=== PATIENT | female | born 1950 | race Caucasian/White ===

== ENCOUNTER → 2018-01-17 10:54 | Outpatient (CLI) | payer MEDICARE, BC, SELFPAY ==
--- NOTE | 2018-01-17 11:01 | MRI_ITS ---
STUDY: MRA NECK WITHOUT CONTRAST REASON FOR EXAM: Female, 67 years old. ICA STENOSIS, TIA, DIZZY; 2 RECENT FALLS- NO HEAD INJURY; F/U TO PREV MRA. TECHNIQUE: Source images were obtained, MIPs were performed. The study was performed unenhanced. COMPARISON: January 17, 2018 FINDINGS: RIGHT CAROTID ARTERIES: Normal right common carotid artery (CCA). Normal right common carotid bulb. There is moderate atherosclerotic plaque formation of the origin of the right internal carotid artery with an estimated stenosis of 50-69% stenosis. Finding was present on the prior examination. Comparison is difficult secondary to technical differences. Normal visualized cervical portion of the right internal carotid artery. Normal origin of the right external carotid artery (ECA). LEFT CAROTID ARTERIES: Normal left common carotid artery (CCA). Normal left common carotid bulb. There is mild atherosclerotic plaque formation of the origin of the left internal carotid artery with less than 50% cross sectional diameter stenosis. Normal visualized cervical portion of the left internal carotid artery. Normal origin of the left external carotid artery (ECA). VERTEBRAL ARTERIES: Normal antegrade flow within the bilateral vertebral artery without a hemodynamically significant stenosis. MRI/MRA Neck without Contrast IMPRESSION: 50-69% stenosis of the right ICA. 50% stenosis of the left ICA. Further evaluation with sonography and/or CTA can be obtained. Electronically Signed: Kizzy Ramon MD at 11:44 EDT Tel , Service support ,
[2018-01-17 11:40] LABS: CREATININE FINGERSTICK 1.2 mg/dL (0.55-1.02)
== END ==
PROVIDERS: Family Provider Family Medicine; PCP Family Medicine; Visit Provider Nurse Practitioner Acute Care
DX: I65.29 Occlusion and stenosis of unspecified carotid artery (principal); Z86.73 Personal history of transient ischemic attack (TIA), and cerebral infarction without residual deficits
CPT/HCPCS: 70547

== ENCOUNTER → 2018-01-18 20:00 | Outpatient (CLI) | payer MEDICARE, BC, SELFPAY | PROVIDERS: Family Provider Family Medicine; PCP Family Medicine; Visit Provider Nurse Practitioner Acute Care | DX: G47.33 Obstructive sleep apnea (adult) (pediatric) (principal); Z86.73 Personal history of transient ischemic attack (TIA), and cerebral infarction without residual deficits | CPT/HCPCS: 95810 ==

== ENCOUNTER → 2018-03-29 09:45 | Outpatient (CLI) | payer MEDICARE, BC, SELFPAY ==
[2018-03-29 10:45] LABS: Amphetamine Urine VISTA NEGATIVE (<1000 ng/mL); Barbiturate Urine VISTA NEGATIVE (< 200 ng/mL); Benzodiazepine Urine VISTA NEGATIVE (< 200 ng/mL); Cocaine Urine VISTA NEGATIVE (< 300 ng/mL); Ecstacy Urine VISTA NEGATIVE (< 500 ng/mL); Methadone Urine VISTA NEGATIVE (< 300 ng/mL); PCP Urine VISTA NEGATIVE (< 25 ng/mL); THC Urine VISTA NEGATIVE (< 50 ng/mL); Vista UDS pH Range 6
== END ==
PROVIDERS: Family Provider Family Medicine; PCP Family Medicine; Visit Provider Anesthesiology Pain Medicine
DX: F11.20 Opioid dependence, uncomplicated (principal)
CPT/HCPCS: 80307

== ENCOUNTER → 2018-03-31 20:00 | Outpatient (CLI) | payer MEDICARE, BC, SELFPAY | PROVIDERS: Family Provider Family Medicine; PCP Family Medicine; Visit Provider Nurse Practitioner Acute Care | DX: G47.33 Obstructive sleep apnea (adult) (pediatric) (principal) | CPT/HCPCS: 95811 ==

== ENCOUNTER → 2019-05-18 13:35 | Outpatient (CLI) | payer MEDICARE, BC, SELFPAY ==
--- NOTE | 2019-05-18 13:38 | CT_ITS ---
HISTORY: Carotid stenosis on doppler, dizzy and lightheaded, Hx-DB,TIA TECHNIQUE: CT angiogram of the neck was performed with IV contrast. NASCET criteria using the distal internal carotid arteries were used for evaluation of stenoses. 3D reconstructions were reviewed. A radiation dose optimization technique was used for this scan. IV Contrast dosage and agent: 100 ml [id number] Number of images including paperwork: [id number] COMPARISON: MRA neck 01/17/2018 FINDINGS: AORTIC ARCH AND BRANCHES: No dissection. Vascular tortuosity. Two-vessel aortic arch branching pattern. RIGHT CAROTID ARTERIES: Stenosis of the right proximal internal carotid artery measuring 50-55%. LEFT CAROTID ARTERIES: Calcified plaque o with approximate 30% stenosis of the proximal left ICA. RIGHT VERTEBRAL ARTERY: No occlusion, significant stenosis or dissection. Mild calcified plaque at the level of the skull base. LEFT VERTEBRAL ARTERY: Mild calcified plaque at the level of the skull base. Mild diffuse narrowing of the distal 2 cm. VISUALIZED INTRACRANIAL CIRCULATION: Patent without significant stenosis, aneurysm or branch occlusion detected. Atherosclerotic calcification of the cavernous ICA bilaterally. NECK SOFT TISSUES: Unremarkable. LUNG APICES: Unremarkable. BONES: Unremarkable. CT/CTA Neck W/WO Contrast IMPRESSION: 1. 50-55% stenosis of the right proximal internal carotid artery. 2. 30% stenosis of the left proximal ICA. 3. 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 Individualized dose optimization techniques were used for this CT. at 0556 Reported and signed by: Luz Elena Centeno MD Electronically Signed: Luz Elena Centeno MD at 5:56 EDT Tel , Service support ,
[2019-05-18] MEDS: 0.9% Saline Lock 10 ML Syringe IV (14:00)
[2019-05-18 14:06] LABS: CREATININE FINGERSTICK 1.3 mg/dL (0.55-1.02)
== END ==
PROVIDERS: Family Provider Family Medicine; PCP Family Medicine; Referring Provider Nurse Practitioner Family; Visit Provider Nurse Practitioner Family
DX: Z01.812 Encounter for preprocedural laboratory examination (principal); I65.29 Occlusion and stenosis of unspecified carotid artery
CPT/HCPCS: 70498; Q9967; A4216

== ENCOUNTER → 2019-05-25 08:47 | Outpatient (CLI) | payer MEDICARE, BC, SELFPAY ==
--- NOTE | 2019-05-25 08:55 | CDU_ITS ---
Reason For Study: carotid stenosis Rt. Velocities/BP Lt. Velocities/BP Prox CCA 57.8/16.0 cm/sec. Prox CCA 55.1/16.0 cm/sec. Mid CCA 60.4/18.6 cm/sec. Mid CCA 63.0/18.6 cm/sec. Dist CCA 52.6/14.7 cm/sec. Dist CCA 59.1/17.3 cm/sec. Prox ICA 59.1/21.3 cm/sec. Prox ICA 51.2/18.6 cm/sec. Mid ICA 87.8/26.5 cm/sec. Mid ICA 66.9/21.1 cm/sec. Dist ICA 53.9/20.0 cm/sec. Dist ICA 79.9/27.8 cm/sec. Rt. ICA/CCA = 1.5. Lt. ICA/CCA = 1.3. Prox ECA 52.6/6.9 cm/sec. Prox ECA 73.4/12.1 cm/sec. Rt. Vert. 42.1/14.7 cm/sec. Lt. Vert. 33.3/12.4 cm/sec. Right Extracranial There is intimal thickening but no significant atherosclerotic plaque noted in the right common carotid artery. There is heterogeneous, irregular atherosclerotic plaque noted in the right internal carotid artery. There is heterogeneous, irregular atherosclerotic plaque noted in the right external carotid artery. Antegrade flow is noted in the right vertebral artery. Left Extracranial There is intimal thickening but no significant atherosclerotic plaque noted in the left common carotid artery. There is heterogeneous, irregular atherosclerotic plaque noted in the left internal carotid artery. There is heterogeneous, irregular atherosclerotic plaque noted in the left external carotid artery. Antegrade flow is noted in the left vertebral artery. Procedure Carotid Duplex 36812. The exam was diagnostic. Exam performed in department. Interpretation Summary Irregular calcific plague at the proximal right internal carotid <50% stenosis right internal carotid <50% stenosis right external carotid Irregular calcific plague distal left common carotid and proximal internal and external carotid arteries <50% stenosis left internal carotid <50% stenosis left external carotid Patent and antegrade vertebrals bilaterally Ordering Physician: Pascual Malik Performed By: Darvin Shaw RVT
== END ==
PROVIDERS: Family Provider Family Medicine; PCP Family Medicine; Referring Provider Surgery; Visit Provider Surgery
DX: I65.23 Occlusion and stenosis of bilateral carotid arteries (principal)
CPT/HCPCS: 93880

== ENCOUNTER → 2020-11-13 09:03 | Outpatient (CLI) | payer MEDICARE, BC, SELFPAY ==
[2019-05-31 09:15] VITALS: BMI 30.3
[2020-11-13 09:58] LABS: Amphetamine Urine VISTA NEGATIVE (<1000 ng/mL); Barbiturate Urine VISTA NEGATIVE (< 200 ng/mL); Benzodiazepine Urine VISTA NEGATIVE (< 200 ng/mL); Cocaine Urine VISTA NEGATIVE (< 300 ng/mL); Ecstacy Urine VISTA POSITIVE (< 500 ng/mL); Methadone Urine VISTA NEGATIVE (< 300 ng/mL); PCP Urine VISTA NEGATIVE (< 25 ng/mL); THC Urine VISTA NEGATIVE (< 50 ng/mL); Vista UDS pH Range 6
== END ==
PROVIDERS: PCP Family Medicine; Referring Provider Anesthesiology Pain Medicine; Visit Provider Anesthesiology Pain Medicine
DX: F11.20 Opioid dependence, uncomplicated (principal)
CPT/HCPCS: 80307

== ENCOUNTER → 2022-02-10 | Outpatient (CLI) | payer MEDICARE, BC, SELFPAY | END | disposition home or self-care (01) | LOC: LAB 10:19 | PROVIDERS: PCP Family Medicine; Visit Provider Podiatrist | DX: L97.912 Non-pressure chronic ulcer of unspecified part of right lower leg with fat layer exposed (principal) | CPT/HCPCS: 87070; 87077; 87186; 87205 ==

== ENCOUNTER 2022-06-18 18:05 | Emergency (ER) | payer MEDICARE, BC, SELFPAY ==
[2022-06-18 18:07] VITALS: BP 136/80; PULSE 121; RESP 18; TEMP 36.2; O2SAT 100; BMI 30.2
[2022-06-18 19:29] LABS: Mucous, Urine 0 SEEN /hpf (<or=2+)
[2022-06-18 19:30] LABS: Color, Urine Straw (Yellow); Glucose, Dipstick 1000 mg/dl (Normal); Ketone-Dipstick 15 mg/dl (Negative); Leukocyte Esterase-Dipstick 25 /ul (Negative); Nitrite-Dipstick Negative (Negative); Occult Blood-Urine 150 /ul (Negative); Protein-Dipstick 30 mg/dl (Negative); Urine Bilirubin Dipstick Negative (Negative); Urine Clarity Clear (Clear); Urine Urobilinogen Normal (Normal); Urine pH 6.5 (5.0 - 8.0)
[2022-06-18 19:50] LABS: White Blood Cells 25-50 SEEN /hpf (0-5)
[2022-06-18 19:51] LABS: Bacteria RARE /hpf (None Seen); Red Blood Cells-Urine 5-10 SEEN /hpf (0-5); Squamous Epithelial Cells - UA 0-5 SEEN /hpf (5-10)
[2022-06-18 20:06] VITALS: BP 135/62; PULSE 100; RESP 15; O2SAT 98
--- NOTE | 2022-06-18 21:24 | EDS_ITS ---
HPI HPI - Female History of Present Illness Chief Complaint: Complaint Narrative Narrative: 72-year-old female presenting with generalized weakness. She states she also has bladder incontinence. She states she cannot walk across the room with urinating and dribbling. She does not have any constipation or diarrhea. No fever or chills. She states she was recently hospitalized at for UTI, dehydration, hyponatremia, hypokalemia. She states she was there overnight and given IV fluids that her electrolytes were replaced. She states she could not be placed because of insurance issues and to senior living. She went home. She continues to feel weak and have urinary incontinence. She denies dysuria or hematuria. She states she has not had the symptoms since she was over 62. She reports that this has been going on for weeks. She saw her primary care physician who did not believe she had a UTI prior to going to . Patient states that when she went to she was placed on Keflex for home. He does not know if there is a urine culture. She states that her primary care doctor put her on Cipro and she has been taking this. [facility] Medical History Carotid stenosis, bilateral Depression Diabetes Pancreatitis Sleep apnea TIA (transient ischemic attack) Home Medications citalopram 40 mg tablet 40 mg PO DAILY 05/31/19 [History Last Taken Unknown] ezetimibe 10 mg tablet (Zetia) 10 mg PO DAILY 05/31/19 [History Last Taken Unknown] insulin glargine 100 unit/mL subcutaneous solution (Lantus U-100 Insulin) 25 unit subcut QHS 05/31/19 [History Last Taken Unknown] insulin lispro 100 unit/mL subcutaneous pen (Humalog KwikPen (U-100) Insulin) 7 unit subcut QA 05/31/19 [History Last Taken Unknown] metformin 500 mg tablet 500 mg PO BID 05/31/19 [History Last Taken Unknown] montelukast 10 mg tablet (Singulair) 10 mg PO QPM 05/31/19 [History Last Taken Unknown] naproxen 250 mg tablet 250 mg PO BID 05/31/19 [History Last Taken Unknown] oxycodone-acetaminophen 5 mg-325 mg tablet (Percocet) 1 tab PO .prn 05/31/19 [History Last Taken Unknown] trimethoprim 100 mg tablet 100 mg PO QHS 05/31/19 [History Last Taken Unknown] Allergy/AdvReac Type Severity Reaction Status Date / Time morphine Allergy Mild Rash Verified 06/18/22 18:06 Penicillins Allergy Mild Rash Verified 06/18/22 18:06 Sulfa (Sulfonamide Allergy Mild Rash Verified 06/18/22 18:06 Antibiotics) Family History Mother Hypertension Surgical History H/O section H/O: hysterectomy Hx laparoscopic cholecystectomy Social History Smoking Status: Never smoker alcohol intake: never ROS ROS ED Constitutional Constitutional ED: Denies chills or fever(s) Eyes Eyes: Denies change in vision or diplopia ENT ENT ED: Denies rhinorrhea or sore throat Cardiovascular Cardiovascular: Denies chest pain or palpitations Respiratory/Chest Respiratory/Chest: Denies cough or dyspnea Gastrointestinal Gastrointestinal: Denies abdominal pain Genitourinary Genitourinary ED: Reports other Details: Urinary incontinence ; Denies dysuria or hematuria Musculoskeletal Musculoskeletal: Denies arthralgias or myalgias Integumentary Denies abscess or Abrasions Neurologic Neurologic: Denies headache(s) or paresthesias Psychiatric Psychiatric: Denies anxiety or depression EXAM Physical Exam Const Vital Signs: 06/18/22 18:07 06/18/22 20:06 Temperature 97.2 F L Temperature Source Temporal Pulse Rate 121 H 100 Respiratory Rate 18 15 Blood Pressure 136/80 H 135/62 H Blood Pressure Mean 98 86 Pulse Ox 100 98 Oxygen Delivery Method Room Air Room Air Positive well nourished General Appearance ED: NAD; Negative for pallor HEENT Reports moist mucous membranes Eyes PERRL and EOMs intact bilaterally General Eye ED: Negative for pale conjunctiva or scleral icterus Chest Wall inspection of chest normal Resp normal respiratory effort and clear to auscultation bilaterally Cardio regular rate and regular rhythm GI normal to inspection, nondistended, normoactive bowel sounds Back/Spine no CVA tenderness Neuro oriented x3 and CN's II-XII intact bilaterally Sensorium / Orientation: alert Motor Exam: strength 5/5 throughout Psych mental status grossly normal Skin no rashes or lesions noted and no wounds General Skin Exam: Negative for jaundice or pallor MDM MDM MDM Narrative Medical decision making narrative: I obtained a urinalysis which shows 150 occult blood, 1000 glucose, urine RBCs 5-10, leukocyte esterase 25, urine WBCs 25-50, 0-5 squamous epithelial cells and rare bacteria. Negative for nitrites. I reviewed her recent lab work from hospital her A1c was 9.6. Her her initial CBC showed a white blood cell count of 22.0, hemoglobin 12.1, hematocrit 37.0, platelets 223. After hydration and antibiotics her repeat CBC the next morning showed a white blood cell count of 18.6, hemoglobin 10.9, hematocrit 33.8, platelets 172. Her initial CMP showed a sodium of 118, potassium 4.1, chloride 90, CO2 20.8, glucose 524, creatinine was 2.01 LFTs were unremarkable. This was repeated the next day after treatment with IV fluids and antibiotics. Patient sodium then was 136, testing 4.4, chloride 104, CO2 16.6, glucose 180, BUN 24, creatinine 1.47. No anion gap. Patient states he was discharged on Lantus 35 units subcu nightly and 5 units of Humalog between meals. She states she used to take 10 to 12 units. She felt this would not be enough insulin. She states she is checking her blood sugars at home and they are in the 3 25-3 50 range. She also had a CT scan done last month at for abdominal bloating and cramping and this was performed with IV contrast and was negative. Patient's blood work today shows a leukocytosis of 18.8 which is similar to what she had previously. Hemoglobin hematocrit are stable. Creatinine is 1.56 which is similar to her previous creatinine. Glucose is elevated at 662 without anion gap. Patient was given a liter of IV fluids and 20 units of insulin. Patient is already on Cipro for UTI symptoms but she is expressing to me she only has urinary incontinence. I looked up her urine culture from and she was sensitive to Cipro which she is on. I recommended a urology consult and I will refer her to Dr. Booth since she is having recurrent UTI. I had a talk with the patient regarding admission. She does not want to be admitted. She does not want to be placed in a senior living facility or rehab facility. I did also have a long discussion with her regarding her elevated A1c and the need for controlled blood sugars. I recommend that she make an appointment with her primary care provider to get her medications adjusted. She is to continue taking her metformin Lantus, Humalog as prescribed as well as modifying her diet to control her sugars. Impression: 1. Urinary incontinence 2. Leukocytosis 3. Hyperglycemia 4. Elevated Lab Data Attestation: I reviewed the patient's lab results. Labs: Laboratory Results - last 24 hr 06/18/22 06/18/22 06/18/22 19:08 21:50 21:50 WBC 18.8 H RBC 4.31 Hgb 12.1 Hct 37.5 MCV 87.0 MCH 28.1 MCHC 32.3 RDW Std Deviation 42.7 RDW Coeff of Yonathan 13.5 Plt Count 462 H MPV 9.4 Immature Gran % (Auto) 2.300 H Neut % (Auto) 82.7 H Lymph % (Auto) 7.8 L [place] % (Auto) 6.5 Eos % (Auto) 0.3 Baso % (Auto) 0.4 Absolute Neuts (auto) 15.6 H Absolute Lymphs (auto) 1.46 Nucleated RBC % 0 Sodium 131 L Potassium 4.0 Chloride 100 Carbon Dioxide 19.0 L Anion Gap 12 BUN 28 H Creatinine 1.56 H Estim Creat Clear Calc 31.41 Est GFR (MDRD) Af Amer 42 L Est GFR (MDRD) Non-Af 35 L BUN/Creatinine Ratio 17.9 Glucose 662 H* Calcium 9.1 Urine Color Straw Urine Clarity Clear Urine pH 6.5 Ur Specific [place] 1.010 Urine Protein 30 H Urine Glucose (UA) 1000 H Urine Ketones 15 H Urine Occult Blood 150 H Urine Nitrite Negative Urine Bilirubin Negative Urine Urobilinogen Normal Ur Leukocyte Esterase 25 H Urine RBC 5-10 SEEN Urine WBC 25-50 SEEN Ur Squamous Epith Cells 0-5 SEEN Urine Bacteria RARE Urine Mucus 0 SEEN Discharge Plan Triage Chief Complaint: Complaint Other Complaint: Weakness ED Provider: Devyn Meyers Dx/Rx/DC Orders Instructions: ED Diabetic Hyperglycemia, ED Cystitis Female Adult Prescriptions: No Action metformin 500 mg tablet 500 mg PO BID insulin lispro [Humalog KwikPen Insulin] 100 unit/mL insulin pen 7 unit SC QAC Lantus U-100 Insulin 100 unit/mL solution 25 unit SC QHS ezetimibe [Zetia] 10 mg tablet 10 mg PO DAILY citalopram 40 mg tablet 40 mg PO DAILY naproxen 250 mg tablet 250 mg PO BID montelukast [Singulair] 10 mg tablet 10 mg PO QPM trimethoprim 100 mg tablet 100 mg PO QHS oxycodone-acetaminophen [Percocet] 5-325 mg tablet 1 tab PO .prn Primary Care Provider: Danya Lanier Referrals: Carito Booth MD [Med Staff - Active Staff] - As soon as possible Danya Lanier MD [Primary Care Provider] - Disposition Disposition: Home, Self Care
[2022-06-18] MEDS: 0.9% Normal Saline 1,000 ML 999 ML IV (21:53)
[2022-06-18 22:00] LABS: Absolute Lymphocyte Count 1.46 X10^3/uL (0.83-4.51); Absolute Neutrophil Count 15.6 X10^3/uL (2.0-7.7); Basophil# 0.07 X10^3/uL; Basophil% 0.4 % (0-1); Eosinophil# 0.06 X10^3/uL; Eosinophils% 0.3 % (0-5); Hematocrit 37.5 % (37-47); Hemoglobin 12.1 g/dL (12.0-15.0); Lymphocyte # 1.46 X10^3/ul (0.83-4.51); Lymphocyte % 7.8 % (19-41); Mean Corp Hgb Conc 32.3 g/dL (32-36); Mean Corpuscular Hgb 28.1 pg (27.0-32.0); Mean Platelet Vol. 9.4 fl (6.2-12.0); Monocyte# 1.23 X10^3/uL; Monocyte% 6.5 % (0-10); NRBC Flagged by Analyzer 0 % (0-5); Neutrophil # 15.55 X10^3/uL (2.7-7.7); Neutrophil % 82.7 % (47-70); Platelet Count 462 K/mm3 (150-450); RBC Distribution Width CV 13.5 % (11.6-14.6); RBC Distribution Width SD 42.7 fl (35.1-43.9); Red Blood Count 4.31 M/mm3 (4.2-5.4); White Blood Count 18.8 K/mm3 (4.4-11.0)
[2022-06-18 22:21] LABS: Anion Gap 12 (5-15); BUN 28 mg/dL (7-18); BUN/Creat Ratio 17.9 RATIO (10-20); Calcium,Total 9.1 mg/dL (8.5-10.1); Chloride 100 mmol/L (98-107); Creatinine, Serum 1.56 mg/dL (0.55-1.02); EST Glomerular Filtration Rate 35 mL/min (>60); Est Glom Filt Rate - Afr Amer 42 mL/min (>60); Estimated Creatinine Clearance 31.41 ml/min; Glucose 662 mg/dL (74-106); Sodium Level 131 mmol/L (136-145)
--- NOTE | 2022-06-18 23:20 | ED.RN ---
notified that patient would like to take her own 35 units lantus, 20 units humalog and be dc'd home.
--- NOTE | 2022-06-18 23:29 | ED.RN ---
pt reports has zeeshan to check insulin. snack given at dc.
== END 2022-06-18 23:30 | disposition home or self-care (01) ==
PROVIDERS: Emergency Provider Student in an Organized Health Care Education/Training Program; PCP Student in an Organized Health Care Education/Training Program; Visit Provider Student in an Organized Health Care Education/Training Program
DX: R32 Unspecified urinary incontinence (principal); E11.65 Type 2 diabetes mellitus with hyperglycemia; Z79.4 Long term (current) use of insulin; R53.1 Weakness; D72.829 Elevated white blood cell count, unspecified; R39.89 Other symptoms and signs involving the genitourinary system; Z86.73 Personal history of transient ischemic attack (TIA), and cerebral infarction without residual deficits
CPT/HCPCS: 80048; 81001; 85025; 99283; J7030; A4216

== ENCOUNTER → 2022-07-02 | Outpatient (CLI) | payer MEDICARE, BC, SELFPAY ==
--- NOTE | 2022-07-02 12:39 | US_ITS ---
STUDY: RENAL ULTRASOUND - COMPLETE REASON FOR EXAM: Female, 72 years old. UTI TECHNIQUE: Ultrasound evaluation of the kidneys was performed with real-time and static dean-scale imaging. COMPARISON: None. FINDINGS: RIGHT KIDNEY: Normal location of the right kidney, which is normal in size. The right kidney measures 10.5 cm x 5.7 cm x 5.4 cm. There is a normal cortex of the right kidney. The renal cortex measures 1.4 cm. There is no right renal mass or cyst. There are no right renal calculi. There is no right hydronephrosis. DISTAL RIGHT URETER: There is non-visualization of the distal right ureter. There is no demonstrated right ureterovesical junction calculus. There is no demonstrated right ureteral jet. LEFT KIDNEY: Normal location of the left kidney, which is normal in size. The left kidney measures 10.3 cm x 4.2 cm x 5.5 cm. There is a normal cortex of the left kidney. The renal cortex measures 1.7 cm. There is no left renal mass or cyst. There are no left renal calculi. There is no left hydronephrosis. DISTAL LEFT URETER: There is non-visualization of the distal left ureter. There is no demonstrated left ureterovesical junction calculus. There is no demonstrated left ureteral jet. BLADDER: The distended urinary bladder has a volume of 160 ml. There is a normal wall thickness of the distended urinary bladder. There is no demonstrated mass within the urinary bladder. There are no demonstrated bladder calculi. US/Kidney and Bladder IMPRESSION: Normal ultrasound of the kidneys and urinary bladder. Electronically Signed: Theo Perez MD at 14:34 EDT ,
== END | disposition home or self-care (01) ==
LOC: US 12:37
PROVIDERS: PCP Student in an Organized Health Care Education/Training Program; Referring Provider Urology; Visit Provider Urology
DX: N39.0 Urinary tract infection, site not specified (principal)
CPT/HCPCS: 76770

== ENCOUNTER → 2022-07-28 | Outpatient (CLI) | payer MEDICARE, BC, SELFPAY ==
[2022-07-28 13:25] LABS: Amphetamine Urine VISTA NEGATIVE (<1000 ng/mL); Barbiturate Urine VISTA NEGATIVE (< 200 ng/mL); Benzodiazepine Urine VISTA NEGATIVE (< 200 ng/mL); Cocaine Urine VISTA NEGATIVE (< 300 ng/mL); Ecstacy Urine VISTA NEGATIVE (< 500 ng/mL); Methadone Urine VISTA NEGATIVE (< 300 ng/mL); PCP Urine VISTA NEGATIVE (< 25 ng/mL); THC Urine VISTA NEGATIVE (< 50 ng/mL); Vista UDS pH Range 5
== END | disposition home or self-care (01) ==
PROVIDERS: PCP Student in an Organized Health Care Education/Training Program; Referring Provider Anesthesiology Pain Medicine; Visit Provider Anesthesiology Pain Medicine
DX: F11.20 Opioid dependence, uncomplicated (principal)
CPT/HCPCS: 80307

== ENCOUNTER 2022-08-30 23:58 | Inpatient (IN) | payer MEDICARE, BC, SELFPAY ==
[2022-08-30 23:59] VITALS: BP 112/59; PULSE 113; RESP 18; TEMP 37.1; O2SAT 95; BMI 32.7
[2022-08-31] VITALS (10 sets, daily range): BP systolic 99–138; BP diastolic 65–84; PULSE 90–109; RESP 16–18; TEMP 36.8–37.2; O2SAT 95–100; BMI 32.4
[2022-08-31] MEDS: 0.9% Normal Saline 1,000 ML 150 ML IV (00:30)
[2022-08-31 00:41] LABS: Absolute Lymphocyte Count 1.33 X10^3/uL (0.83-4.51); Absolute Neutrophil Count 11.9 X10^3/uL (2.0-7.7); Basophil# 0.09 X10^3/uL; Basophil% 0.6 % (0-1); Eosinophil# 0.05 X10^3/uL; Eosinophils% 0.3 % (0-5); Hematocrit 35.2 % (37-47); Hemoglobin 11.1 g/dL (12.0-15.0); Lymphocyte # 1.33 X10^3/ul (0.83-4.51); Lymphocyte % 9.1 % (19-41); Mean Corp Hgb Conc 31.5 g/dL (32-36); Mean Corpuscular Hgb 27.9 pg (27.0-32.0); Mean Corpuscular Volume 88.4 fL (81-99); Mean Platelet Vol. 9.5 fl (6.2-12.0); Monocyte# 1.06 X10^3/uL; Monocyte% 7.2 % (0-10); NRBC Flagged by Analyzer 0 % (0-5); Neutrophil # 11.85 X10^3/uL (2.7-7.7); Platelet Count 273 K/mm3 (150-450); RBC Distribution Width SD 45.5 fl (35.1-43.9); Red Blood Count 3.98 M/mm3 (4.2-5.4); White Blood Count 14.7 K/mm3 (4.4-11.0)
--- NOTE | 2022-08-31 01:08 | EX.ED.DYSGE1 ---
HPI History of Present Illness Chief Complaint: Complaint Informant: patient and family Narrative Narrative: Patient is a 72-year-old female with history of insulin-dependent diabetes mellitus, CKD, chronic back pain and bilateral carotid artery stenosis presenting with increased generalized weakness, difficulty ambulating as well as urinary urgency. She is been having incontinence because she cannot get up to the bathroom in time. She does she is been having pain in her back that wraps around to her abdomen. Symptoms are going on for the week. Today she developed vomiting. She is having constipation which she states she deals with. Patient has similar episode in June and was hospitalized at [facility] for UTI, dehydration hyponatremia and hypokalemia. She came back to our ER on 06/18/2022 for continued weakness and ultimately was referred to Dr. Pat Arellano and discharged home. Patient she did get better and then her symptoms returned this week. She states her blood sugars have been high at home in the 300s. No other complaints at this time. Patient denies any fever, chills, chest pain or difficulty breathing. While she reports incontinence it does not seem to be as much incontinence as much is urgency and she cannot make it to the bathroom in time. Patient is aware when she does need to go. She denies any saddle anesthesia. Denies any stool incontinence. [facility] Medical History (Updated 08/31/22 @ 03:[address] Lolis Smith, ) Carotid stenosis, bilateral Depression Diabetes HLD (hyperlipidemia) HTN (hypertension) Pancreatitis Sleep apnea TIA (transient ischemic attack) Home Medications ezetimibe 10 mg tablet (Zetia) 10 mg PO DAILY . 05/31/19 [History Last Taken Unknown] D-Mannrose PO 2XD UTI 08/03/22 [History Last Taken Unknown] ascorbate calcium (vitamin C) 500 mg tablet 500 mg PO DAILY SUPPLEMENT 08/03/22 [History Last Taken 08/30/22] insulin lispro 100 unit/mL subcutaneous pen (Humalog KwikPen (U-100) Insulin) 15 unit subcut [facility] BLOOD SUGAR 08/03/22 [History Last Taken Unknown] probiotic 1 tab PO DAILY SUPPLEMENT 08/03/22 [History Last Taken Unknown] esomeprazole magnesium 40 mg capsule,delayed release 40 cap PO DAILY . 08/06/22 [History Last Taken Unknown] metoprolol succinate 25 mg tablet,extended release 24 hr 25 mg PO DAILY BLOOD PRESSURE 08/06/22 [History Last Taken Unknown] venlafaxine 150 mg capsule,extended release 24 hr 150 cap PO DAILY . 08/06/22 [History Last Taken Unknown] cholecalciferol (vitamin D3) 50 mcg (2,000 unit) capsule (Vitamin D3) 2,000 unit PO DAILY SUPPLEMENT 08/31/22 [History Last Taken 08/30/22] estradiol 0.01% (0.1 mg/gram) vaginal cream 1 applic vaginal MOWEFR HORMONE 08/31/22 [History Last Taken Unknown] insulin glargine 100 unit/mL subcutaneous solution (Lantus U-100 Insulin) 35 unit subcut DAILY BLOOD SUGAR 08/31/22 [History Last Taken Unknown] tramadol 50 mg tablet 50 mg PO TID PAIN 08/31/22 [History Last Taken Unknown] trimethoprim 100 mg tablet 100 mg PO QHS . 08/31/22 [History Last Taken Unknown] Allergy/AdvReac Type Severity Reaction Status Date / Time morphine Allergy Mild Rash Verified 08/31/22 00:03 Penicillins Allergy Mild Rash Verified 08/31/22 00:03 Sulfa (Sulfonamide Allergy Mild Rash Verified 08/31/22 00:03 Antibiotics) Family History Mother Hypertension Father Asthma Depression Diabetes High cholesterol Hypertension Other Arthritis Autoimmune disorder Breast cancer Cancer Kidney disease Surgical History H/O section H/O: hysterectomy History of appendectomy Hx laparoscopic cholecystectomy Social History (Updated 08/31/22 @ 02:[address] Isabell Hanson MD) household members: none Smoking Status: Never smoker alcohol intake: never substance use type: does not use what type of physical activity do you participate in: none ROS ROS ED Constitutional Constitutional ED: Denies chills or fever(s) Eyes Eyes: Denies change in vision ENT ENT ED: Denies rhinorrhea or sore throat Cardiovascular Cardiovascular: Denies chest pain or palpitations Respiratory/Chest Respiratory/Chest: Denies cough or dyspnea Gastrointestinal Gastrointestinal: Reports abdominal pain, constipation and vomiting; Denies diarrhea Genitourinary Genitourinary ED: Reports urinary frequency and other Details: Urinary urgency ; Denies dysuria or hematuria Musculoskeletal Musculoskeletal: Reports back pain; Denies arthralgias or myalgias Integumentary Denies rash Neurologic Neurologic: Reports weakness; Denies headache(s) Psychiatric Psychiatric: Denies anxiety EXAM Physical Exam Const Vital Signs: 08/30/22 23:59 08/31/22 01:29 Temperature 98.7 F 99 F Temperature Source Temporal Oral Pulse Rate 113 H 109 H Respiratory Rate 18 18 Blood Pressure 112/59 L 128/84 H Blood Pressure Mean 76 98 Pulse Ox 95 96 Oxygen Delivery Method Room Air Room Air Positive well nourished and well developed General Appearance ED: well developed and NAD HEENT Reports dry mucous membranes Mouth ED: Yes dry mucous membranes Mouth: dry mucous membranes Eyes PERRL and EOMs intact bilaterally Neck supple Chest Wall inspection of chest normal and palpation of chest normal Resp normal respiratory effort and clear to auscultation bilaterally Cardio regular rhythm and no murmurs Rate: tachycardic GI normal to inspection, nondistended, normoactive bowel sounds and non-tender Palpation: soft; Negative for guarding Back/Spine no CVA tenderness Thoracic Spine / Upper Back: paraspinal muscle tenderness; Negative for thoracic spinal tenderness Lumbar Spine / Lower Back: Negative for lumbar spinal tenderness Extremity normal to inspection General Extremety ED: Negative for edema or tenderness General Extremity: Negative for edema Neuro oriented x3 Sensorium / Orientation: alert Motor Exam: general weakness Psych mental status grossly normal Skin no rashes or lesions noted and no wounds MDM MDM MDM Narrative Medical decision making narrative: Patient is evaluated for worsening weakness, urinary frequency and now vomiting. Patient is concern for urinary infection. No focal weakness/deficits on physical exam. Work-up is remarkable for a leukocytosis of 14.7. Lab work consistent with mild hyponatremia of 132 and a bump in her creatinine to 1.81. Couple months ago patient's creatinine was 1.5. Her lactate is normal. Urinalysis is highly consistent with urinary tract infection with 50-100 white blood cells and 1+ bacteria. Patient does meet criteria for sepsis with leukocytosis, tachycardia and source of infection however she does not have endorgan damage and her lactate is normal. Given her profound weakness and tachycardia, an EKG is obtained which is normal. Do not think patient is safe to go home especially given her vomiting, weakness and signs of sepsis in addition to her age. She is given IV fluids in the ER as well as Tylenol and started on IV Rocephin. Culture sent. Will be admitted for further treatment and management. Patient agreeable with plan of care. Lab Data Attestation: I reviewed the patient's lab results. Labs: Laboratory Results - last 24 hr 08/31/22 08/31/22 08/31/22 00:08 00:08 00:08 WBC 14.7 H RBC 3.98 L Hgb 11.1 L Hct 35.2 L MCV 88.4 MCH 27.9 MCHC 31.5 L RDW Std Deviation 45.5 H RDW Coeff of Yonathan 14.0 Plt Count 273 MPV 9.5 Immature Gran % (Auto) 1.800 H Neut % (Auto) 81.0 H Lymph % (Auto) 9.1 L [place] % (Auto) 7.2 Eos % (Auto) 0.3 Baso % (Auto) 0.6 Absolute Neuts (auto) 11.9 H Absolute Lymphs (auto) 1.33 Nucleated RBC % 0 Sodium 132 L Potassium 4.1 Chloride 100 Carbon Dioxide 24.0 Anion Gap 8 BUN 25 H Creatinine 1.81 H Estim Creat Clear Calc 26.02 Est GFR (MDRD) Af Amer 36 L Est GFR (MDRD) Non-Af 29 L BUN/Creatinine Ratio 13.8 Glucose 361 H Lactic Acid 1.2 Calcium 8.8 Total Bilirubin 0.40 AST 18 ALT 18 Alkaline Phosphatase 106 Total Protein 7.4 Albumin 2.7 L Globulin 4.7 H Albumin/Globulin Ratio 0.6 L Urine Color Urine Clarity Urine pH Ur Specific [place] Urine Protein Urine Glucose (UA) Urine Ketones Urine Occult Blood Urine Nitrite Urine Bilirubin Urine Urobilinogen Ur Leukocyte Esterase Urine RBC Urine WBC Ur Squamous Epith Cells Urine Bacteria Urine Mucus 08/31/22 01:26 WBC RBC Hgb Hct MCV MCH MCHC RDW Std Deviation RDW Coeff of Yonathan Plt Count MPV Immature Gran % (Auto) Neut % (Auto) Lymph % (Auto) [place] % (Auto) Eos % (Auto) Baso % (Auto) Absolute Neuts (auto) Absolute Lymphs (auto) Nucleated RBC % Sodium Potassium Chloride Carbon Dioxide Anion Gap BUN Creatinine Estim Creat Clear Calc Est GFR (MDRD) Af Amer Est GFR (MDRD) Non-Af BUN/Creatinine Ratio Glucose Lactic Acid Calcium Total Bilirubin AST ALT Alkaline Phosphatase Total Protein Albumin Globulin Albumin/Globulin Ratio Urine Color Yellow Urine Clarity Sl. Cloudy Urine pH 6.5 Ur Specific [place] 1.015 Urine Protein 100 H Urine Glucose (UA) 250 H Urine Ketones 5 H Urine Occult Blood 250 H Urine Nitrite Negative Urine Bilirubin Negative Urine Urobilinogen Normal Ur Leukocyte Esterase 500 H Urine RBC 10-25 SEEN Urine WBC 50-100 SEEN Ur Squamous Epith Cells 0 SEEN Urine Bacteria 1+ Urine Mucus 0 SEEN Radiography Diagnostic Testing: Clinical Impression(s) from Imaging Studies Abdomen/Pelvis CT 08/31/22 01:12 IMPRESSION: 1. Coronary artery disease. 2. Cholecystectomy. 3. Hysterectomy. 4. Small hiatal hernia. 5. No acute abdominal pelvic abnormality. Electronically Signed: Mahamed Nicholson MD at 3:02 EST , Rhythm Strip Rhythm Strip: Sinus Tach Rate: 106 Ectopy: None EKG Initial EKG: Attestation: I personally reviewed and interpreted this EKG as follows: Interpretation: Sinus Tachycardia Comments: Sinus tachycardia rate of 106 Normal axis Normal intervals Normal ST segments Discharge Plan Dx/Rx/DC Orders Clinical Impression: UTI (urinary tract infection), Elevated serum creatinine, Generalized weakness, Vomiting, Leukocytosis, Dehydration, Hyperglycemia Disposition Disposition: Acute Care Hospital [facility] Discharge Date/Time: 08/31/22 03:11
[2022-08-31 01:12] LABS: ALB/GLOB Ratio 0.6 RATIO (0.9-2.4); AST(SGOT) 18 U/L (15-37); Alanine Aminotransfer ALT/SGPT 18 U/L (13-56); Albumin, Serum 2.7 g/dL (3.2-5.0); Alkaline Phosphatase 106 U/L (45-117); Anion Gap 8 (5-15); BUN 25 mg/dL (7-18); BUN/Creat Ratio 13.8 RATIO (10-20); Calcium,Total 8.8 mg/dL (8.5-10.1); Chloride 100 mmol/L (98-107); Creatinine, Serum 1.81 mg/dL (0.55-1.02); EST Glomerular Filtration Rate 29 mL/min (>60); Est Glom Filt Rate - Afr Amer 36 mL/min (>60); Estimated Creatinine Clearance 26.02 ml/min; Globulin 4.7 g/dL (2.2-4.2); Glucose 361 mg/dL (74-106); Potassium 4.1 mmol/L (3.5-5.1); Protein, Total 7.4 g/dL (6.4-8.2); Sodium Level 132 mmol/L (136-145)
--- NOTE | 2022-08-31 01:12 | CT_ITS ---
EXAM: CT ABDOMEN AND PELVIS WITHOUT INTRAVENOUS CONTRAST CLINICAL INDICATION: lower abdominal pain TECHNIQUE: Helically acquired images were obtained of the abdomen and pelvis without intravenous contrast. This CT exam was performed using one or more of the following dose reduction techniques: automated exposure control, adjustment of the mA and/or kV according to patient size, and/or use of iterative reconstruction technique. This report was created using [employer] report generation technology. RADIATION DOSE: CTDIvol = 17.59 mGy, DLP = 874.68 mGy-cm. COMPARISON: None. FINDINGS: LOWER THORAX: Coronary artery calcifications. Small hiatal hernia. Lung bases are clear. No cardiomegaly. No significant pericardial effusion. ABDOMEN: LIVER: Unremarkable. Homogeneous. GALLBLADDER AND BILE DUCTS: Cholecystectomy. No intra- or extrahepatic biliary ductal dilation. PANCREAS: Unremarkable. No focal cystic mass. SPLEEN: Unremarkable. Normal size without focal cystic or solid mass. ADRENALS: Unremarkable. No nodules. KIDNEYS AND URETERS: Unremarkable. Normal renal size and position. No hydronephrosis. STOMACH AND BOWEL: Unremarkable. No stomach or bowel distention. No focal inflammatory change. PELVIS: APPENDIX: The appendix is not identified with certainty but there are no signs of appendicitis. BLADDER: Unremarkable. REPRODUCTIVE: Hysterectomy. ABDOMEN and PELVIS: INTRAPERITONEAL SPACE: Unremarkable. No ascites or other fluid collection. No free air. BONES/JOINTS: Unremarkable. No suspicious lytic or blastic abnormality. SOFT TISSUES: Unremarkable. No discrete abdominal or pelvic wall hernia. VASCULATURE: Unremarkable. Abdominal aorta is non-dilated. LYMPH NODES: Unremarkable. No enlarged lymph nodes. CT/Abdomen/Pelvis without Cont IMPRESSION: 1. Coronary artery disease. 2. Cholecystectomy. 3. Hysterectomy. 4. Small hiatal hernia. 5. No acute abdominal pelvic abnormality. Electronically Signed: Mahamed Nicholson MD at 3:02 EST ,
[2022-08-31 01:13] LABS: Lactic Acid 1.2 mmol/L (0.4-1.9)
[2022-08-31 01:30] LABS: Mucous, Urine 0 SEEN /hpf (<or=2+); Squamous Epithelial Cells - UA 0 SEEN /hpf (5-10)
[2022-08-31 01:36] LABS: Color, Urine Yellow (Yellow); Glucose, Dipstick 250 mg/dl (Normal); Ketone-Dipstick 5 mg/dl (Negative); Leukocyte Esterase-Dipstick 500 /ul (Negative); Nitrite-Dipstick Negative (Negative); Occult Blood-Urine 250 /ul (Negative); Protein-Dipstick 100 mg/dl (Negative); Specific Gravity, Urine 1.015 (1.002-1.030); Urine Bilirubin Dipstick Negative (Negative); Urine Clarity Sl. Cloudy (Clear); Urine Urobilinogen Normal (Normal); Urine pH 6.5 (5.0 - 8.0)
[2022-08-31 01:55] LABS: Bacteria 1+ /hpf (None Seen); Red Blood Cells-Urine 10-25 SEEN /hpf (0-5); White Blood Cells 50-100 SEEN /hpf (0-5)
[2022-08-31] MEDS: Ceftriaxone 1 GM/50 ML BAG IV ×2 (02:21→21:48)
--- NOTE | 2022-08-31 02:25 | HP.PCM.HOS_ITS ---
HPI - General General Date of Admission: 08/31/22 Date of Service: 08/31/22 Chief Complaint: Flank discomfort, suprapubic discomfort, urinary frequency/urgency, incontinence. HPI Narrative The patient is a 72 y/o F w/ PMHx: HTN, HLD, Obesity, Carotid disesae, Depression and Anxiety, YVONNE, Hx TIA, Diabetes mellitus type II, CKD stage III unclear subtype, GERD who presents to the [facility] ED on 08/31/22 with history of increased fatigue, weakness, difficulty ambulating secondary to increasing urinary urgency and frequency with notable episodes of incontinence as well as lumbar back discomfort and suprapubic discomfort with symptoms ongoing x1 week with development of nausea and emesis on day of presentation with similar episode prior requiring hospitalization at [facility] for UTI. She notes that she had been significantly weak without infection but had clinically improved until current presentation. She notes that her blood sugars have been notably elevated in the 300 ranges at home. She denies any associated fevers but does report having chills. She does report chronic back pain for which she takes tramadol and notes that she has associated constipation. Patient has been following with Dr. Booth but did not make her aware of her current symptoms. Work-up in the ED included T 99, heart rate 109, BP 120/84, respiratory rate 18, 96% on room air, CBC with WBC 14.7, hemoglobin 11.1 with MCV 88.4, platelet 273 with left shift, CMP with sodium 132, BUN/creatinine 25/1.81, glucose 361, lactic acid 1.2, hepatic profile not marked appearing, urinalysis with specific already 1.015, protein 100, glucose 250, ketone 5, occult blood 250, negative nitrite, leukocyte Estrace 500, urine RBCs 10-25, urine WBCs 50-100 with 1+ urine bacteria, urine culture pending per ED, CT abdomen and pelvis with no acute findings per ED physician but final read pending. In the ED patient ministered normal saline, rocephin 1 gm IV x 1. [facility] Medical History (Updated 08/31/22 @ 02:[address] Isabell Hanson MD) Carotid stenosis, bilateral Depression Diabetes HLD (hyperlipidemia) HTN (hypertension) Pancreatitis Sleep apnea TIA (transient ischemic attack) Home Medications ezetimibe 10 mg tablet (Zetia) 10 mg PO DAILY 05/31/19 [History Last Taken Unknown] Albuterol sulfate HFA inhalation PRN 2 puffs every 6 hrs prn 08/03/22 [History Last Taken Unknown] D-Mannrose PO 2XD 08/03/22 [History Last Taken Unknown] ascorbate calcium (vitamin C) 500 mg tablet 500 mg PO DAILY 08/03/22 [History Last Taken Unknown] cholecalciferol (vitamin D3) 50 mcg (2,000 unit) capsule 50 mcg PO DAILY 08/03/22 [History Last Taken Unknown] insulin glargine 100 unit/mL (3 mL) subcutaneous pen (Lantus Solostar U-100 Insulin) 20 unit subcut .COMPLEX 08/03/22 [History Last Taken Unknown] insulin glargine 100 unit/mL subcutaneous solution (Lantus U-100 Insulin) 30 unit subcut QAM 08/03/22 [History Last Taken Unknown] insulin lispro 100 unit/mL subcutaneous pen (Humalog KwikPen (U-100) Insulin) 8 unit subcut QAC 08/03/22 [History Last Taken Unknown] metformin 500 mg tablet 1,000 mg PO BID 08/03/22 [History Last Taken Unknown] probiotic PO 1XD 08/03/22 [History Last Taken Unknown] tramadol PO 2XD 08/03/22 [History Last Taken Unknown] esomeprazole magnesium 40 mg capsule,delayed release cap PO 08/06/22 [History Last Taken Unknown] metoprolol succinate 25 mg tablet,extended release 24 hr ea PO 08/06/22 [History Last Taken Unknown] tramadol 50 mg tablet 50 mg PO 08/06/22 [History Last Taken Unknown] venlafaxine 150 mg capsule,extended release 24 hr cap PO 08/06/22 [History Last Taken Unknown] Allergy/AdvReac Type Severity Reaction Status Date / Time morphine Allergy Mild Rash Verified 08/31/22 00:03 Penicillins Allergy Mild Rash Verified 08/31/22 00:03 Sulfa (Sulfonamide Allergy Mild Rash Verified 08/31/22 00:03 Antibiotics) Family History Mother Hypertension Father Asthma Depression Diabetes High cholesterol Hypertension Other Arthritis Autoimmune disorder Breast cancer Cancer Kidney disease Surgical History H/O section H/O: hysterectomy History of appendectomy Hx laparoscopic cholecystectomy Social History (Updated 08/31/22 @ 02:[address] Isabell Hanson MD) household members: none Smoking Status: Never smoker alcohol intake: never substance use type: does not use what type of physical activity do you participate in: none ROS ROS Narrative Admission Review of Systems: CONSTITUTIONAL: No weight loss, fever, + chills, weakness or fatigue. HEENT: Eyes: No visual loss, blurred vision, double vision or yellow sclerae. Ears, Nose, Throat: No hearing loss, sneezing, congestion, runny nose or sore throat. SKIN: No rash or itching, lesions, wounds. CARDIOVASCULAR: No chest pain, chest pressure or chest discomfort, palpitations, edema, orthopnea, syncopal events. RESPIRATORY: No shortness of breath, cough or sputum, wheezing, hemoptysis. GASTROINTESTINAL: + anorexia, nausea, vomiting, suprapubic/flank discomfort, constipation, No diarrhea, melena, BRBPR. GENITOURINARY: + Suprapubic/flank discomfort, urinary frequency, urgency, incontinence. NEUROLOGICAL: No headache, dizziness, syncope, paralysis, ataxia, numbness or tingling in the extremities, focal weakness, change in bowel or bladder control, seizure. MUSCULOSKELETAL: + muscle, back pain, joint pain or stiffness. HEMATOLOGIC: + anemia, bleeding or bruising. LYMPHATICS: No enlarged nodes. No history of splenectomy. PSYCHIATRIC: No history of depression or anxiety. ENDOCRINOLOGIC: No reports of sweating, cold or heat intolerance. No polyuria or polydipsia. ALLERGIES: No history of asthma, hives, eczema or rhinitis. Vital Signs Vital Signs Vital Signs: 08/30/22 23:59 08/31/22 01:29 08/31/22 02:20 Temperature 98.7 F 99 F 98.7 F Temperature Source Temporal Oral Oral Pulse Rate 113 H 109 H 109 H Respiratory Rate 18 18 18 Blood Pressure 112/59 L 128/84 H 99/67 Blood Pressure Mean 76 98 77 Pulse Ox 95 96 98 Oxygen Delivery Method Room Air Room Air Room Air 08/31/22 02:20 Temperature 98.7 F Temperature Source Oral Pulse Rate 103 H Respiratory Rate 16 Blood Pressure 99/67 Blood Pressure Mean 77 Pulse Ox 100 Oxygen Delivery Method Room Air Weight Weight: 196 lb 10.437 oz Body Mass Index (BMI) 32.7 Physical Exam Narrative Physical Examination: General: Awake, alert, oriented x 3 and cooperative, seated upright in the ED bed, fatigued, no acute distress. Skin: Normal color, normal turgor, no icterus, no cyanosis except evidence of vitiligo as well as some abrasions that of healed especially to the upper extrem ities. HEENT: AT/NC, EOMI, PERRLA, mildly dry MM, no carotid bruits or JVD noted. Lungs: Mildly diminished, greater bases, poor effort, no rales, ronchi or wheezing. Heart: Mildly tachycardic with rhythm; no gallop, rub audible. Abdomen: Soft, obese, NTTP except mild discomfort in the suprapubic region and some discomfort with flank palpation, ND, distant normal BS, no obvious evidence of HSM. Extremities: No cyanosis, clubbing, or edema, see skin. Discomfort to the paraspinous lumbar region with palpation. Mild flank discomfort bilaterally but suspect primarily more so musculoskeletal etiology Neurological: Patient awake, alert, oriented as noted, cognitive function intact; pupils equally reactive to light and accommodation, cranial nerves II- XII grossly normal, moving all 4 extremities, no focal deficits, strength moderately global decrease secondary to acute presentation complaints. Psychiatric: Affect appears fatigued, no acute evidence of depressive or anxiety feelings. Results Lab / Micro Data Result Diagrams: 08/31/22 00:08 08/31/22 00:08 Labs: Laboratory Results - last 24 hr 08/31/22 00:08: WBC 14.7 H, RBC 3.98 L, Hgb 11.1 L, Hct 35.2 L, MCV 88.4, MCH 27.9, MCHC 31.5 L, RDW Std Deviation 45.5 H, RDW Coeff of Yonathan 14.0, Plt Count 2 73, MPV 9.5, Immature Gran % (Auto) 1.800 H, Neut % (Auto) 81.0 H, Lymph % (Auto) 9.1 L, [place] % (Auto) 7.2, Eos % (Auto) 0.3, Baso % (Auto) 0.6, Absolute Neuts (auto) 11.9 H, Absolute Lymphs (auto) 1.33, Nucleated RBC % 0 08/31/22 00:08: Sodium 132 L, Potassium 4.1, Chloride 100, Carbon Dioxide 24.0, Anion Gap 8, BUN 25 H, Creatinine 1.81 H, Estim Creat Clear Calc 26.02, Est GFR (MDRD) Af Amer 36 L, Est GFR (MDRD) Non-Af 29 L, BUN/Creatinine Ratio 13.8, Glucose 361 H, Calcium 8.8, Total Bilirubin 0.40, AST 18, ALT 18, Alkaline Phosphatase 106, Total Protein 7.4, Albumin 2.7 L, Globulin 4.7 H, Albumin/Globulin Ratio 0.6 L 08/31/22 00:08: Lactic Acid 1.2 08/31/22 01:26: Urine Color Yellow, Urine Clarity Sl. Cloudy, Urine pH 6.5, Ur Specific Chalmers 1.015, Urine Protein 100 H, Urine Glucose (UA) 250 H, Urine Ketones 5 H, Urine Occult Blood 250 H, Urine Nitrite Negative, Urine Bilirubin Negative, Urine Urobilinogen Normal, Ur Leukocyte Esterase 500 H, Urine RBC 10- 25 SEEN, Urine WBC 50-100 SEEN, Ur Squamous Epith Cells 0 SEEN, Urine Bacteria 1+, Urine Mucus 0 SEEN Assessment & Plan Assessment/Plan (1) UTI (urinary tract infection): PLAN: Plan The patient is a 72 y/o F w/ PMHx: HTN, HLD, Obesity, Carotid disesae, Depression and Anxiety, YVONNE, Hx TIA, Diabetes mellitus type II, CKD stage III unclear subtype, GERD who presents to the [facility] ED on 08/31/22 with history of increased fatigue, weakness, difficulty ambulating secondary to increasing urinary urgency and frequency with notable episodes of incontinence as well as lumbar back discomfort and suprapubic discomfort with symptoms ongoing x1 week with development of nausea and emesis on day of presentation with similar episode prior requiring hospitalization at [facility] for UTI. #1. Acute Complicated Urinary Tract Infection w/ associated #2, nausea and emesis, debility, adult failure to thrive: Will admit to medical surgical floor, UA upon ED evaluation remarkable, pending UCx, continue IVFs, monitor I/Os, continue IV Rocephin w/ transition as able pending sensitivities and speciation. PT, OT, case management consultations for discharge planning. Will maintain on fall precautions. Awaiting final read on CT A/P. #2. Mild renal insufficiency on Chronic Kidney Disease Stage III, unclear subtype: Admission BUN/Cr 25/1.81, baseline renal function noted most recently prior to presentation 06/18/2022 creatinine 1.56 with no other recent labs in 2021 but remotely noted 07/20/2016 creatinine 1.29, repeat BMP in AM. #3. Normocytic anemia: Admission hemoglobin 11.1, most recent prior to this 06/18/2022 hemoglobin 12.1 at that time, MCV normal, will obtain iron panel, ferritin, guaiac to be cautious. #4. Carotid Disease: Following with vascular surgery, last visit noted 05/31/[address] Malik, most recent imaging per his last note with mild plaque at the origin of the left ICA with 50% stenosis and moderate plaque of the right internal carotid with 50 to 69% stenosis with vertebrals patent with antegrade flow however per note patient at that time had been very adamant that prior symptoms of dizziness have been inner ear related and declined any intervention at that time. We will strongly recommend continued follow-up with vascular surgery especially given TIA history. #5. Diabetes mellitus type II with hyperglycemia: Hold oral home regimen, continue home insulin regimen, given N/V will start with clears and onset resolved transition to ADA diet, hemoglobin A1c requested given patient's complaint of hyperglycemia although likely with acute presentation #1, accu checks w/ ISS. #6. Hypertension: Continue home regimen including metoprolol, PRN hydralazine. #7. Hyperlipidemia: We will continue patient home Zetia regimen. #8. History TIA: We will continue aspirin, not on statin therapy but on Zetia, continue hypertensive regimen, diabetic regimen with adjustments as noted. #9. Anxiety and depression: We will continue patient on venlafaxine regimen. #10. Obesity: Weight loss and lifestyle changes encouraged. #11. GERD: We will continue patient on PPI. #12. YVONNE: CPAP nightly. #13. DVT prophylaxis: SCDs, heparin. #14. CODE status: Patient patient does not have healthcare power of trust and estates attorney nor living will in place but following discussions notes that if she did have to have someone make decisions for her health care if she was unable she would want her daughter Carmen Fagan to be that individual. Encouraged her to consider setting up and noted that she may discuss this with case management/social work for assistance. Discussed CODE status at length including difference between FULL code, DNR-CCA and DNR-CC status. Following discussions about the differences in these status, requested Full Code status. Advanced Care Planning Face to Face Time: 16 minutes. Charges/Coding Visit Charges Inpatient E&M: 05969 Init Hosp L3 Procedures Hospitalists Procedures: 90491 Advncd Care Plan 30 Min
[2022-08-31] MEDS: Acetaminophen 325 MG Tablet 650 MG PO ×3 (02:26→21:54)
[2022-08-31] MEDS: 0.9% Normal Saline 1,000 ML 125 ML IV (03:41)
[2022-08-31 03:51] LABS: Iron 17 ug/dL (50-170); Iron Binding Capacity,Total 274 ug/dL (250-450); PERCENT IRON SATURATION 6.2 % (15.0-55.0)
[2022-08-31 06:22] LABS: Absolute Lymphocyte Count 1.92 X10^3/uL (0.83-4.51); Absolute Neutrophil Count 10.4 X10^3/uL (2.0-7.7); Basophil# 0.07 X10^3/uL; Basophil% 0.5 % (0-1); Eosinophil# 0.07 X10^3/uL; Eosinophils% 0.5 % (0-5); Hematocrit 34.3 % (37-47); Hemoglobin 10.6 g/dL (12.0-15.0); Lymphocyte # 1.92 X10^3/ul (0.83-4.51); Lymphocyte % 13.5 % (19-41); Mean Corp Hgb Conc 30.9 g/dL (32-36); Mean Corpuscular Hgb 27.6 pg (27.0-32.0); Mean Corpuscular Volume 89.3 fL (81-99); Mean Platelet Vol. 9.9 fl (6.2-12.0); Monocyte# 1.41 X10^3/uL; Monocyte% 9.9 % (0-10); NRBC Flagged by Analyzer 0 % (0-5); Neutrophil # 10.41 X10^3/uL (2.7-7.7); Neutrophil % 73.5 % (47-70); Platelet Count 251 K/mm3 (150-450); RBC Distribution Width CV 14.1 % (11.6-14.6); RBC Distribution Width SD 46.2 fl (35.1-43.9); Red Blood Count 3.84 M/mm3 (4.2-5.4); White Blood Count 14.2 K/mm3 (4.4-11.0)
[2022-08-31 07:09] LABS: ALB/GLOB Ratio 0.5 RATIO (0.9-2.4); AST(SGOT) 12 U/L (15-37); Alanine Aminotransfer ALT/SGPT 15 U/L (13-56); Albumin, Serum 2.3 g/dL (3.2-5.0); Alkaline Phosphatase 96 U/L (45-117); Anion Gap 9 (5-15); BUN 23 mg/dL (7-18); BUN/Creat Ratio 15.4 RATIO (10-20); Calcium,Total 8.7 mg/dL (8.5-10.1); Chloride 101 mmol/L (98-107); Creatinine, Serum 1.49 mg/dL (0.55-1.02); EST Glomerular Filtration Rate 37 mL/min (>60); Est Glom Filt Rate - Afr Amer 44 mL/min (>60); Estimated Creatinine Clearance 31.61 ml/min; Globulin 4.6 g/dL (2.2-4.2); Glucose 333 mg/dL (74-106); Potassium 3.7 mmol/L (3.5-5.1); Protein, Total 6.9 g/dL (6.4-8.2); Sodium Level 131 mmol/L (136-145)
[2022-08-31 07:11] LABS: Bedside Glucose 319 mg/dL (74-106)
[2022-08-31] MEDS: Aspirin 81 MG TAB.CHEW PO (09:06)
[2022-08-31] MEDS: Heparin Injection (Vial) 5,000 UNIT/ML VIAL 5000 UNIT SC ×2 (09:06→21:55)
[2022-08-31] MEDS: Pantoprazole Sodium 40 MG Tablet PO (09:07)
[2022-08-31] MEDS: Venlafaxine XR 150 MG Capsule PO (09:07)
[2022-08-31] MEDS: Metoprolol(XL)Succ 25 MG Tablet PO (09:07)
[2022-08-31] MEDS: Insulin Glargine-YFGN 100 UNIT/ML Pen 35 UNIT SC (09:07)
[2022-08-31] MEDS: Ezetimibe 10 MG Tablet PO (09:07)
[2022-08-31] MEDS: Ascorbic Acid 500 MG Tablet PO (09:07)
[2022-08-31 09:39] LABS: Hemoglobin A1c 9.4 % (3.8-5.6)
[2022-08-31] MEDS: Insulin Lispro 100 UNIT/ML INSULN.PEN SC ×3 (10:02→17:11)
[2022-08-31] MEDS: Insulin Lispro 100 UNIT/ML INSULN.PEN 15 UNIT SC ×2 (10:03→11:59)
--- NOTE | 2022-08-31 12:06 | CPS ---
This RT asked pt if she wears a CPAP/BiPAP at night and the patient stated that she is supposed to but that it feels like she is suffocating. Pt declines to wear one at this time to sleep.
--- NOTE | 2022-08-31 12:09 | CPS ---
This RT asked patient if she wears a CPAP at night and the patient stated that she is suppose to but refuses because she feels like she is suffocating when she wears it.
[2022-08-31 12:25] LABS: Bedside Glucose 290 mg/dL (74-106)
--- NOTE | 2022-08-31 13:16 | PCM.HOSP.N ---
Hospitalist Note Older white female who was admitted early this morning secondary to urinary frequency/urgency/incontinence as well as suprapubic discomfort and flank discomfort. Patient's UA was suggestive of urinary tract infection and the patient had a recent hospitalization at a different facility for UTI. She indicated also that her blood sugars had been notably elevated at home but denied any fevers. She did complain of chills at the time of admission and has been following with urology as an outpatient. Overall her labs were fairly unremarkable other than significant hyperglycemia with a blood sugar of 361 at the time of admission and her UA was suggestive of infection. A CT of the abdomen pelvis was performed and did not note any acute abnormalities including pyelonephritis. Patient was admitted to the hospital and placed on IV antibiotics with ceftriaxone after cultures were sent. Urine cultures remain pending at this time. Clinically the patient does report that she is improved since admission. We will await cultures as the patient may be able to be discharged home tomorrow depending on culture sensitivities and overall clinical course. This was discussed with patient she voiced understanding. She is had no further nausea and vomiting is requesting a regular diet. Hemoglobin A1c was obtained and found to be 9.7. We may need to make some adjustments in her insulin prior to discharge.
[2022-08-31] MEDS: traMADol 50 MG Tablet PO ×2 (14:04→21:47)
[2022-08-31] MEDS: Insulin Lispro 100 UNIT/ML INSULN.PEN 20 UNIT SC (17:12)
[2022-08-31 17:35] LABS: Bedside Glucose 296 mg/dL (74-106)
[2022-09-01 03:45] VITALS: BP 125/64; PULSE 95; RESP 16; TEMP 37.4; O2SAT 95
[2022-09-01] MEDS: Acetaminophen 325 MG Tablet 650 MG PO (03:59)
[2022-09-01] MEDS: traMADol 50 MG Tablet PO (05:23)
[2022-09-01 06:49] LABS: Absolute Neutrophil Count 8.3 X10^3/uL (2.0-7.7); Basophil# 0.05 X10^3/uL; Basophil% 0.4 % (0-1); Eosinophil# 0.27 X10^3/uL; Eosinophils% 2.2 % (0-5); Hematocrit 32.4 % (37-47); Hemoglobin 10.4 g/dL (12.0-15.0); Lymphocyte % 16.4 % (19-41); Mean Corp Hgb Conc 32.1 g/dL (32-36); Mean Corpuscular Hgb 27.9 pg (27.0-32.0); Mean Corpuscular Volume 86.9 fL (81-99); Monocyte# 1.45 X10^3/uL; Monocyte% 11.9 % (0-10); NRBC Flagged by Analyzer 0 % (0-5); Neutrophil % 67.9 % (47-70); Platelet Count 274 K/mm3 (150-450); RBC Distribution Width SD 44.6 fl (35.1-43.9); Red Blood Count 3.73 M/mm3 (4.2-5.4); White Blood Count 12.2 K/mm3 (4.4-11.0)
[2022-09-01 07:16] LABS: Anion Gap 9 (5-15); BUN 22 mg/dL (7-18); BUN/Creat Ratio 15.1 RATIO (10-20); Calcium,Total 8.8 mg/dL (8.5-10.1); Chloride 101 mmol/L (98-107); Creatinine, Serum 1.46 mg/dL (0.55-1.02); EST Glomerular Filtration Rate 38 mL/min (>60); Est Glom Filt Rate - Afr Amer 46 mL/min (>60); Estimated Creatinine Clearance 32.26 ml/min; Glucose 170 mg/dL (74-106); Phosphorus 2.6 mg/dL (2.5-4.9); Potassium 3.6 mmol/L (3.5-5.1); Sodium Level 133 mmol/L (136-145); Thyroid Stim Hormone (TSH) 1.92 uIU/mL (0.358-3.74)
[2022-09-01 08:19] VITALS: BP 116/64; PULSE 90; RESP 18; TEMP 36.6; O2SAT 95
[2022-09-01 08:34] VITALS: PULSE 90
[2022-09-01] MEDS: Heparin Injection (Vial) 5,000 UNIT/ML VIAL 5000 UNIT SC (08:34)
[2022-09-01] MEDS: Venlafaxine XR 150 MG Capsule PO (08:34)
[2022-09-01] MEDS: Aspirin 81 MG TAB.CHEW PO (08:34)
[2022-09-01] MEDS: Metoprolol(XL)Succ 25 MG Tablet PO (08:34)
[2022-09-01] MEDS: Ascorbic Acid 500 MG Tablet PO (08:35)
[2022-09-01] MEDS: Pantoprazole Sodium 40 MG Tablet PO (08:35)
[2022-09-01] MEDS: Insulin Lispro 100 UNIT/ML INSULN.PEN SC (08:35)
[2022-09-01] MEDS: Ezetimibe 10 MG Tablet PO (08:35)
[2022-09-01] MEDS: Insulin Lispro 100 UNIT/ML INSULN.PEN 20 UNIT SC (08:35)
[2022-09-01] MEDS: Insulin Glargine-YFGN 100 UNIT/ML Pen 42 UNIT SC (08:40)
[2022-09-01 09:00] VITALS: O2SAT 95
[2022-09-01 09:25] LABS: Bedside Glucose 208 mg/dL (74-106)
--- NOTE | 2022-09-01 11:40 | PCM.DC.SUM ---
Providers Date of Admission: 08/31/22 Date of Discharge: 09/01/22 Primary Care Physician: Dr. Danya Lanier MD Reason For Visit: COMPLICATED UTI, RENAL INSUFFICIENCY, ADULT FTT Diagnosis Discharge Diagnosis (1) UTI (urinary tract infection): Status: Acute Code(s): N39.0 - Urinary tract infection, site not specified Medications at Discharge Home Medications ezetimibe 10 mg tablet (Zetia) 10 mg PO DAILY . 05/31/19 D-Mannrose PO 2XD UTI 08/03/22 ascorbate calcium (vitamin C) 500 mg tablet 500 mg PO DAILY SUPPLEMENT 08/03/22 insulin lispro 100 unit/mL subcutaneous pen (Humalog KwikPen (U-100) Insulin) 15 unit subcut [facility] BLOOD SUGAR 08/03/22 probiotic 1 tab PO DAILY SUPPLEMENT 08/03/22 esomeprazole magnesium 40 mg capsule,delayed release 40 cap PO DAILY . 08/06/22 metoprolol succinate 25 mg tablet,extended release 24 hr 25 mg PO DAILY BLOOD PRESSURE 08/06/22 venlafaxine 150 mg capsule,extended release 24 hr 150 cap PO DAILY . 08/06/22 cholecalciferol (vitamin D3) 50 mcg (2,000 unit) capsule (Vitamin D3) 2,000 unit PO DAILY SUPPLEMENT 08/31/22 estradiol 0.01% (0.1 mg/gram) vaginal cream 1 applic vaginal MOWEFR HORMONE 08/31/22 tramadol 50 mg tablet 50 mg PO TID PAIN 08/31/22 trimethoprim 100 mg tablet 100 mg PO QHS . 08/31/22 cephalexin 500 mg capsule 500 mg PO BID #12 caps 09/01/22 insulin glargine-yfgn 100 unit/mL (3 mL) subcutaneous pen 42 unit (0.42 mL) subcut DAILY #0 mL 09/01/22 insulin lispro 100 unit/mL subcutaneous pen (Humalog KwikPen (U-100) Insulin) 20 unit (0.2 mL) subcut TIDAC #0 mL 09/01/22 Hospital Course Operations None Procedures None Summary of Care Provided Minutes Spent on Discharge: 29 Hospital Course: Mrs. Mann is a 72-year-old female who presents emergency department [facility] with increased fatigue, weakness, difficulty ambulating and increasing urinary urgency, frequency and dysuria. She also complained of some flank pain and back pain. She has chronic back pain but states the flank pain had been ongoing for a week. She developed nausea and vomiting the day of presentation. She indicated she had been significantly weak with a previous infection but had clinically improved until her presentation. She also indicated that her blood sugars had been notably elevated at home. She denied fevers but did report associated chills. She has been following with urology and has an appointment soon but did not make her aware of her current symptoms. Work-up in the ED included T 99, heart rate 109, BP 120/84, respiratory rate 18, 96% on room air, CBC with WBC 14.7, hemoglobin 11.1 with MCV 88.4, platelet 273 with left shift, CMP with sodium 132, BUN/creatinine 25/1.81, glucose 361, lactic acid 1.2, hepatic profile not marked appearing, urinalysis with specific already 1.015, protein 100, glucose 250, ketone 5, occult blood 250, negative nitrite, leukocyte Estrace 500, urine RBCs 10-25, urine WBCs 50-100 with 1+ urine bacteria, urine culture pending per ED, CT abdomen and pelvis with no acute findings. With her UA being suggestive of urinary tract infection she was started on ceftriaxone. Her nausea and vomiting resolved by later in the morning on the day of her admission and she was started on a regular diet. Hemoglobin A1c was obtained and found to be 9.4. We did make some adjustments in her home insulin regimen increasing her basal insulin to from 35 to 42 units and increasing her prandial insulin from 15 to 20 units. Her blood sugar control was better and she was discharged on this regimen and instructed to follow-up with her primary care physician and design assistant for ongoing assessment of her hemoglobin A1c. Improved blood sugar control would decrease her risk for urinary tract infections. Her urine culture was sent but was pending at the time of discharge. She clinically was much improved on ceftriaxone alone therefore we discharged her to complete a 7-day course of oral Keflex and strongly encouraged to keep her appointment with urology as an outpatient. She states that appointment she believes is on 08 September. She was discharged home in stable condition. Discharge diagnoses: Suspected urinary tract infection with associated dysuria/frequency/flank plain-resolving CKD stage IIIb [id number] Normocytic anemia Hypertension Hyperlipidemia History of TIA Obesity GERD YVONNE Anxiety Depression Chronic back pain Physical Exam Narrative Tolerating a regular diet without any difficulty. No nausea vomiting. States she is feeling much better and anxious to go home. Has follow-up with Urology next week. Const alert, oriented x3, no apparent distress, healthy appearing and well nourished Constitutional Narrative: Overweight, elderly white female sitting up in bed, appears comfortable, nontoxic, very pleasant General Appearance: cooperative, comfortable, well kempt and well developed Orientation / Consciousness: awake, oriented to person, oriented to place and oriented to time Exam Limitations: no limitations HEENT normocephalic, head/scalp atraumatic, hearing grossly normal bilaterally, moist oral mucous membranes and oropharynx normal Resp normal respiratory effort, no retractions, no use of accessory muscles and clear to auscultation bilaterally Auscultation: Negative for crackles, rhonchi or wheezes Cardio regular rate, regular rhythm, S1 normal heart sound, S2 normal heart sound, no murmurs, no rub, no gallops and no clicks GI normal to inspection, nondistended, normoactive bowel sounds, soft to palpation and non-tender Extremity no clubbing, cyanosis or edema Extremity Narrative: 2+ pedal pulses Neuro oriented x3, CN's II-XII intact bilaterally, moves all extremities and no focal motor deficits Neuro Narrative: Ambulates independently without difficulty Speech: speech normal Psych affect normal Psych Narrative: Very pleasant Weight / BMI Weight Weight: 91.1 kg Body Mass Index (BMI) 32.4 ABG / Lab / Microbiology Data Result Diagrams: 09/01/22 04:30 09/01/22 04:30 Laboratory: Laboratory Results - last 24 hr 08/31/22 11:56: POC Glucose 290 H 08/31/22 17:09: POC Glucose 296 H 09/01/22 04:30: WBC 12.2 H, RBC 3.73 L, Hgb 10.4 L, Hct 32.4 L, MCV 86.9, MCH 27.9, MCHC 32.1, RDW Std Deviation 44.6 H, RDW Coeff of Yonathan 14.0, Plt Count 274, MPV 10.0, Immature Gran % (Auto) 1.200 H, Neut % (Auto) 67.9, Lymph % (Auto) 16.4 L, Richardson % (Auto) 11.9 H, Eos % (Auto) 2.2, Baso % (Auto) 0.4, Absolute Neuts (auto) 8.3 H, Absolute Lymphs (auto) 2.00, Nucleated RBC % 0 09/01/22 04:30: Sodium 133 L, Potassium 3.6, Chloride 101, Carbon Dioxide 23.0, Anion Gap 9, BUN 22 H, Creatinine 1.46 H, Estim Creat Clear Calc 32.26, Est GFR (MDRD) Af Amer 46 L, Est GFR (MDRD) Non-Af 38 L, BUN/Creatinine Ratio 15.1, Glucose 170 H, Calcium 8.8, Phosphorus 2.6, Magnesium 2.0, TSH 1.92 09/01/22 08:34: POC Glucose 208 H Microbiology: Microbiology 08/31/22 01:26 Urine, Clean Catch Urine Culture - Final Mixed Gram Positive Organisms D/C Instructions Discharge Diet: Low fat / Low cholesterol and 1800 Calorie Control Diet Discharge Activity: Return to Normal Activity Return to work on: 09/01/22 Meaningful Use Info Meaningful Use Diagnoses (Choose all that apply): None applicable Discharge Plan Admission Admit Date/Time: 08/31/22 02:09 Primary Reason for Your Visit: Urinary frequency/urgency/suprapubic discomfort Attending Provider: Fozia Cervantes Primary Care Provider: Danya Lanier Consulting Providers: Isabell Hanson Instructions Additional Instructions / Restrictions: 1. We did check your hemoglobin A1c which is a 3-month average of your blood sugar. Goal is less than 7 and yours was 9.4. Please note changes in insulin regimen at home. Your blood sugars did have improved control while you are hospitalized on this regimen. 2. Please follow-up with Dr. Booth as scheduled 3. Please complete antibiotic course in its entirety Discharge Orders/Prescriptions Prescriptions: New insulin glargine-yfgn 100 unit/mL (3 mL) Insulin Pen 42 unit subcut DAILY Qty: 0 0RF insulin lispro [Humalog KwikPen Insulin] 100 unit/mL Insulin Pen 20 unit subcut TIDAC Qty: 0 0RF cephalexin 500 mg capsule 500 mg PO BID Qty: 12 0RF Continued ezetimibe [Zetia] 10 mg tablet 10 mg PO DAILY insulin lispro [Humalog KwikPen Insulin] 100 unit/mL insulin pen 15 unit SC QAC metoprolol succinate 25 mg tablet extended release 24 hr 25 mg PO DAILY Label Comments: TAKE 1 TABLET BY MOUTH ONCE DAILY venlafaxine 150 mg capsule,extended release 24hr 150 cap PO DAILY esomeprazole magnesium 40 mg capsule,delayed release(DR/EC) 40 cap PO DAILY probiotic 1 tab PO DAILY ascorbate calcium (vitamin C) 500 mg tablet 500 mg PO DAILY D-Mannrose PO 2XD Rx Instructions: 1000mg trimethoprim 100 mg tablet 100 mg PO QHS tramadol 50 mg tablet 50 mg PO TID estradiol 0.01 % (0.1 mg/gram) cream 1 applic VAGINAL MOWEFR Label Comments: INSERT 1 GRAM VAGINALLY 3 TIMES A WEEK BEFORE BED cholecalciferol (vitamin D3) [Vitamin D3] 50 mcg (2,000 unit) capsule 2,000 unit PO DAILY Label Comments: TAKE 1 CAPSULE BY MOUTH ONCE DAILY Discontinued insulin glargine [Lantus U-100 Insulin] 100 unit/mL solution 35 unit SUBCUT DAILY Label Comments: INJECT 38 UNITS SUBCUTANEOUSLY DAILY IN THE MORNING AND THEN 5 UNITS EVERY DAY AT BEDTIME. TOTAL OF 43 UNITS DAILY Referrals / Follow Up: Carito Booth MD [Med Staff - Active Staff] - See Referral Note (As scheduled) Danya Lanier MD [Primary Care Provider] - Within 2 Weeks (For follow-up on your blood sugars) Disposition Disposition (needs filled in before D/C Order can be placed): Home, Self Care Charges/Coding Visit Charges Inpatient E&M: 34094 Disch Hosp
[2022-09-01 12:00] LABS: Bedside Glucose 266 mg/dL (74-106)
--- NOTE | 2022-09-01 13:05 | CASEMGMT ---
VIKA SINGH DOCUMENT MANAGEMENT TECHNICIAN CM to room to meet with patient for initial transition planning/care coordination assessment. VIKA SINGH introduced self and role at [facility].? Pt voices understanding and consents to assessment at this time.? Pt sitting on edge of bed in no distress at this time.? Dtr, Carmen, @ bedside. Pt is A/O at this time and answers all questions appropriately.?? Care providers, pharmacy, and demographics verified/updated at this time. PCP: Dr Lanier Specialists: Dr Maria and Dr Hernandez-cardiology @ [facility], Dr Fuentes-pain mgmt, Dr Delacruz-endocrinology, Dr Booth-urology Preferred Pharmacy: [facility] Insurance: [employer] Prescription Benefit:? Yes, [employer] LNOK: valentina Elkins. SisterCourtney Living Arrangements: Lives alone in one-story home w/basement w/3 steps to enter. Independent w/ADL's and IADL's and manages her own medications and appts. Transportation: Pt states drives self and states no transportation concerns at this time.? DME: States has the following DME:? shower chair, RTS, cane, walker, Freestyle glucose monitoring system ? Pt states no need for further DME at this time.? HHC/SNF: No hx of SNF. Has had HHC in the past. Denies need for HHC. She is aware therapy recommends additional therapy. She was made aware, if she changes her mind once she returns home to discuss this w/her PCP. Pt wishes to return home and states has no concerns with going home. Pt voices no further concerns/needs at this time.? PLAN: ?Home Sarath STEWART RN, CM
== END 2022-09-01 14:10 | disposition home or self-care (01) | DRG 690 ==
LOC: ED 08-31 02:09 → MS3 08-31 02:39
PROVIDERS: Admitting Provider Family Medicine; Emergency Provider Emergency Medicine; PCP Student in an Organized Health Care Education/Training Program; Visit Provider Internal Medicine
DX: N39.0 Urinary tract infection, site not specified (principal); E87.1 Hypo-osmolality and hyponatremia; R62.7 Adult failure to thrive; E11.22 Type 2 diabetes mellitus with diabetic chronic kidney disease; E11.65 Type 2 diabetes mellitus with hyperglycemia; D64.9 Anemia, unspecified; N18.32 Chronic kidney disease, stage 3b; Z79.4 Long term (current) use of insulin; K21.9 Gastro-esophageal reflux disease without esophagitis; E86.0 Dehydration; I12.9 Hypertensive chronic kidney disease with stage 1 through stage 4 chronic kidney disease, or unspecified chronic kidney disease; G47.33 Obstructive sleep apnea (adult) (pediatric); E78.5 Hyperlipidemia, unspecified; F41.9 Anxiety disorder, unspecified; G47.30 Sleep apnea, unspecified; N28.9 Disorder of kidney and ureter, unspecified; F32.A Depression, unspecified; E66.9 Obesity, unspecified; G89.29 Other chronic pain; Z79.899 Other long term (current) drug therapy; Z86.73 Personal history of transient ischemic attack (TIA), and cerebral infarction without residual deficits; Z68.32 Body mass index [BMI] 32.0-32.9, adult
CPT/HCPCS: 36415; 74176; 80048; 80053; 81001; 82962; 83036; 83540; 83550; 83605; 83735; 84100; 84443; 85025; 87086; 87088; 93005; 97162; 97165; 99251; 99284; J7030; A4216; G0463

== ENCOUNTER 2022-09-12 20:31 | Inpatient (IN) | payer MEDICARE, BC, SELFPAY ==
[2022-09-12 20:32] VITALS: BP 135/85; PULSE 119; RESP 20; TEMP 35.9; O2SAT 100; BMI 31.1
[2022-09-12 20:58] VITALS: BP 138/84; PULSE 109; RESP 15; O2SAT 100
--- NOTE | 2022-09-12 21:07 | CT_ITS ---
INDICATION: Pain EXAMINATION: CT ABDOMEN AND PELVIS WITH CONTRAST - CT Abdomen And Pelvis W/ Contrast Injection TECHNIQUE: Helically acquired images were obtained of the abdomen and pelvis following IV contrast. A radiation dose optimization technique was used for this scan. IV Contrast dosage and agent: Oral contrast: None. COMPARISON: None. FINDINGS: LOWER CHEST: Lung bases mild bibasilar fibrosis. Pacemaker lead extends into right ventricle lumen. LIVER: Homogeneous. No focal mass. GALLBLADDER AND BILIARY TREE: Status post cholecystectomy. No intra- or extrahepatic biliary ductal dilation. PANCREAS: No focal cystic or solid mass. SPLEEN: Normal size without focal cystic or solid mass. ADRENAL GLANDS: No nodules. KIDNEYS AND URETERS: Normal renal size and position. No hydronephrosis. PERITONEUM: No ascites or free air. No other fluid collection. BOWEL: No evidence of acute appendicitis. Moderate stool within the descending and transverse colon. Mild small bowel distention left midabdomen consistent with mild focal ileus. Early or partial small bowel obstruction considered less likely. No focal inflammatory change. LYMPH NODES: No enlarged mesenteric or retroperitoneal lymph nodes. VESSELS: Aorta is non-dilated. URINARY BLADDER: Unremarkable. REPRODUCTIVE ORGANS: Atrophic uterus versus hysterectomy. ABDOMINAL WALL: No discrete abdominal or pelvic wall hernia. BONES: L4-5 grade 2 spondylolisthesis without spondylolysis. Moderate superior endplate and cavity L5. Severe loss of disc space height at L4-5. Small hiatal hernia. CT/Abdomen/Pelvis W IV Cont ONLY IMPRESSION: Mild bibasilar fibrosis. stasis. Mild small bowel ileus left mid abdomen. Pacemaker. Small hiatal hernia. Status post cholecystectomy. Atrophic uterus versus hysterectomy. Degenerative changes lumbar spine as above. Electronically Signed: Sergei Garcia MD, TAYLOR at 23:00 EST ,
--- NOTE | 2022-09-12 21:09 | EDS_ITS ---
HPI HPI - GI History of Present Illness Chief Complaint: Abd Pain Narrative Narrative: 72-year-old female past medical history of frequent UTIs states that she was seen a few weeks ago and diagnosed with a urinary tract infection. She finished her antibiotics. Over the last 3 days she developed suprapubic abdominal pain and low back pain. She also has pain in the left lower quadrant of her abdomen. She is nauseated but has not vomited. She denies fevers or chills. While she states she has the feeling that she has to have a bowel movement, she has not had 1 in 3 days, she feels obstipated. Exacerbating or alleviating factors to her pain but states that it is both dull and achy and sometimes sharp and stabbing. She has not had colonoscopy in years. She is unsure if she has diverticuli. [facility] Medical History Carotid stenosis, bilateral Depression Diabetes HLD (hyperlipidemia) HTN (hypertension) Pacemaker Pancreatitis Sleep apnea TIA (transient ischemic attack) Home Medications ezetimibe 10 mg tablet (Zetia) 10 mg PO DAILY . 05/31/19 [History Last Taken Unknown] D-Mannrose PO 2XD UTI 08/03/22 [History Last Taken Unknown] ascorbate calcium (vitamin C) 500 mg tablet 500 mg PO DAILY SUPPLEMENT 08/03/22 [History Last Taken 08/30/22] insulin lispro 100 unit/mL subcutaneous pen (Humalog KwikPen (U-100) Insulin) [address] [facility] BLOOD SUGAR 08/03/22 [History Last Taken Unknown] probiotic 1 tab PO DAILY SUPPLEMENT 08/03/22 [History Last Taken Unknown] esomeprazole magnesium 40 mg capsule,delayed release 40 cap PO DAILY . 08/06/22 [History Last Taken Unknown] metoprolol succinate 25 mg tablet,extended release 24 hr 25 mg PO DAILY BLOOD PRESSURE 08/06/22 [History Last Taken Unknown] venlafaxine 150 mg capsule,extended release 24 hr 150 cap PO DAILY . 08/06/22 [History Last Taken Unknown] cholecalciferol (vitamin D3) 50 mcg (2,000 unit) capsule (Vitamin D3) 2,000 unit PO DAILY SUPPLEMENT 08/31/22 [History Last Taken 08/30/22] estradiol 0.01% (0.1 mg/gram) vaginal cream 1 applic vaginal MOWEFR HORMONE 08/31/22 [History Last Taken Unknown] tramadol 50 mg tablet 50 mg PO TID PAIN 08/31/22 [History Last Taken Unknown] trimethoprim 100 mg tablet 100 mg PO QHS . 08/31/22 [History Last Taken Unknown] cephalexin 500 mg capsule 500 mg PO BID #12 caps 09/01/22 [Rx Last Taken Unknown] insulin glargine-yfgn 100 unit/mL (3 mL) subcutaneous pen 42 unit (0.42 mL) subcut DAILY #0 mL 09/01/22 [Rx Last Taken Unknown] insulin lispro 100 unit/mL subcutaneous pen (Humalog KwikPen (U-100) Insulin) 20 unit (0.2 mL) subcut TIDAC #0 mL 09/01/22 [Rx Last Taken Unknown] Allergy/AdvReac Type Severity Reaction Status Date / Time morphine Allergy Mild Rash Verified 09/12/22 20:37 Penicillins Allergy Mild Rash Verified 09/12/22 20:37 Sulfa (Sulfonamide Allergy Mild Rash Verified 09/12/22 20:37 Antibiotics) Family History Mother Hypertension Father Asthma Depression Diabetes High cholesterol Hypertension Other Arthritis Autoimmune disorder Breast cancer Cancer Kidney disease Surgical History H/O section H/O: hysterectomy History of appendectomy Hx laparoscopic cholecystectomy Social History household members: none Smoking Status: Never smoker alcohol intake: never substance use type: does not use what type of physical activity do you participate in: none ROS ROS ED ROS Narrative Constitutional: No fever, no chills. HEENT: No sore throat. No neck pain. No loss of vision. No rhinorrhea. Cardiovascular: No chest pain. No palpitations. No pedal edema. Respiratory: No cough, no shortness of breath. Abdominal: Suprapubic to left lower quadrant abdominal pain. Positive nausea. No vomiting. Genitourinary: No dysuria. No hematuria. Musculoskeletal: No myalgias. No arthralgias. Positive low back pain. Neurologic: No headaches. No dizziness. No lightheadedness. Skin: No rash. No change in color. Psychiatric: No depression. No anxiety. EXAM Physical Exam Narrative Exam Narrative: Afebrile. Vital signs noted. HEENT: Normocephalic. Atraumatic. PERRL, EOMI. Neck soft and supple. No point tenderness or step off. Cardiovascular: Regular rate and rhythm with intermittent tachycardia. No murmurs, rubs, or gallops appreciated. Respiratory: No tachypnea. Lungs clear to auscultation bilaterally. Gastrointestinal: Abdomen soft, mild tenderness to palpation suprapubic to left lower quadrant with normoactive bowel sounds. No rebound or guarding. Neurological: Awake. Alert. Nonfocal, nonlateralizing. Skin: No rash. Normal color. No pallor. Musculoskeletal: No pedal edema. Full range of motion extremities. Const Vital Signs: 09/12/22 20:32 09/12/22 20:58 Temperature 96.7 F L Temperature Source Temporal Pulse Rate 119 H 109 H Respiratory Rate 20 H 15 Blood Pressure 135/85 H 138/84 H Blood Pressure Mean 101 102 Pulse Ox 100 100 Oxygen Delivery Method Room Air Room Air MDM MDM MDM Narrative Medical decision making narrative: Comprehensive work-up was pursued. In the differential diagnosis is pyelonephritis versus diverticulitis. As she has an allergy to morphine she was administered 50 mcg of fentanyl intravenously. She was also bolused IV fluids normal saline 1 L intravenously. I will order a CT of the abdomen and pelvis with IV contrast. In review of her laboratory work, patient has an elevated white count of 15.2, but chronically has a leukocytosis. Hemoglobin normal at 12.7 with hematocrit 40.4. Platelet count is elevated at 506. Sodium slightly low at 133 with a creatinine of 1.42 and a BUN of 22. LFTs are grossly normal. Glucose is elevated at 285 consistent with her diabetes, however she has a normal anion gap of 7. Urinalysis is negative for nitrites and ketones. However, there are 25- 50 WBCs. Leukocyte esterase is positive. This was sent for culture. She has been on frequent antibiotics since June she states. Additionally, she states her primary care physician has started her on Macrobid which started today. She can continue to take this antibiotic should she be discharged. Upon repeat examination, she states that her pain continues, she feels as if she was not given anything although she had been given fentanyl 50 mcg. Her analgesic was redosed. CT results have returned, while I reviewed her imaging, I agree with the radiologist read where she has a small bowel ileus in the left lower quadrant, and fecal stasis in the transverse to descending colon. She also has degenerative changes of the lumbar spine but no acute fracture. Upon repeat examination, she states that she cannot go home this way. She is having continued pain. I will discuss patient with Dr. Carrie Lizarraga for observation for intractable abdominal pain and ileus. She has already taken her 2 doses of Macrobid today for her UTI. Currently, patient is in stable condition. Lab Data Attestation: I reviewed the patient's lab results. Labs: Laboratory Results - last 24 hr 09/12/22 09/12/22 09/12/22 20:40 21:20 21:20 WBC 15.2 H RBC 4.63 Hgb 12.7 Hct 40.4 MCV 87.3 MCH 27.4 MCHC 31.4 L RDW Std Deviation 44.2 H RDW Coeff of Yonathan 14.0 Plt Count 506 H MPV 8.6 Immature Gran % (Auto) 1.900 H Neut % (Auto) 75.2 H Lymph % (Auto) 13.9 L [place] % (Auto) 6.6 Eos % (Auto) 1.9 Baso % (Auto) 0.5 Absolute Neuts (auto) 11.4 H Absolute Lymphs (auto) 2.12 Nucleated RBC % 0 Sodium 133 L Potassium 4.8 Chloride 101 Carbon Dioxide 25.0 Anion Gap 7 BUN 22 H Creatinine 1.42 H Estim Creat Clear Calc 34.51 Est GFR (MDRD) Af Amer 47 L Est GFR (MDRD) Non-Af 39 L BUN/Creatinine Ratio 15.5 Glucose 285 H Calcium 9.7 Total Bilirubin 0.30 AST 23 ALT 26 Alkaline Phosphatase 149 H Total Protein 8.6 H Albumin 3.1 L Globulin 5.5 H Albumin/Globulin Ratio 0.6 L Urine Color Yellow Urine Clarity Clear Urine pH 7.0 Ur Specific [place] 1.010 Urine Protein 30 H Urine Glucose (UA) Normal Urine Ketones Negative Urine Occult Blood Negative Urine Nitrite Negative Urine Bilirubin Negative Urine Urobilinogen Normal Ur Leukocyte Esterase 500 H Urine RBC 0 SEEN Urine WBC 25-50 SEEN Ur Squamous Epith Cells 0-5 SEEN Urine Bacteria 0 SEEN Urine Mucus 0 SEEN Radiography Diagnostic Testing: Clinical Impression(s) from Imaging Studies Abdomen/Pelvis CT 09/12/22 21:07 IMPRESSION: Mild bibasilar fibrosis. stasis. Mild small bowel ileus left mid abdomen. Pacemaker. Small hiatal hernia. Status post cholecystectomy. Atrophic uterus versus hysterectomy. Degenerative changes lumbar spine as above. Electronically Signed: Sergei Garcia MD, TAYLOR at 23:00 EST Reading Location ID and State: [facility] / OR Tel , Service support , Discharge Plan Dx/Rx/DC Orders Clinical Impression: UTI (urinary tract infection), Ileus, Intractable abdominal pain Disposition Disposition: Acute Care Hospital [facility]
[2022-09-12 21:38] LABS: Absolute Lymphocyte Count 2.12 X10^3/uL (0.83-4.51); Absolute Neutrophil Count 11.4 X10^3/uL (2.0-7.7); Basophil# 0.08 X10^3/uL; Basophil% 0.5 % (0-1); Eosinophil# 0.29 X10^3/uL; Eosinophils% 1.9 % (0-5); Hematocrit 40.4 % (37-47); Hemoglobin 12.7 g/dL (12.0-15.0); Lymphocyte # 2.12 X10^3/ul (0.83-4.51); Lymphocyte % 13.9 % (19-41); Mean Corp Hgb Conc 31.4 g/dL (32-36); Mean Corpuscular Hgb 27.4 pg (27.0-32.0); Mean Corpuscular Volume 87.3 fL (81-99); Mean Platelet Vol. 8.6 fl (6.2-12.0); Monocyte# 1.01 X10^3/uL; Monocyte% 6.6 % (0-10); NRBC Flagged by Analyzer 0 % (0-5); Neutrophil # 11.41 X10^3/uL (2.7-7.7); Neutrophil % 75.2 % (47-70); Platelet Count 506 K/mm3 (150-450); RBC Distribution Width SD 44.2 fl (35.1-43.9); Red Blood Count 4.63 M/mm3 (4.2-5.4); White Blood Count 15.2 K/mm3 (4.4-11.0)
[2022-09-12] MEDS: 0.9% Normal Saline 1,000 ML 1000 ML IV (21:39)
[2022-09-12] MEDS: Ondansetron 4 MG/2 ML Vial IV (21:40)
[2022-09-12] MEDS: fentaNYL 100 MCG/2 ML Ampul 50 MCG IV ×2 (21:40→23:13)
[2022-09-12 21:50] LABS: Bacteria 0 SEEN /hpf (None Seen); Mucous, Urine 0 SEEN /hpf (<or=2+); Red Blood Cells-Urine 0 SEEN /hpf (0-5)
[2022-09-12 21:58] LABS: ALB/GLOB Ratio 0.6 RATIO (0.9-2.4); AST(SGOT) 23 U/L (15-37); Alanine Aminotransfer ALT/SGPT 26 U/L (13-56); Albumin, Serum 3.1 g/dL (3.2-5.0); Alkaline Phosphatase 149 U/L (45-117); Anion Gap 7 (5-15); BUN 22 mg/dL (7-18); BUN/Creat Ratio 15.5 RATIO (10-20); Calcium,Total 9.7 mg/dL (8.5-10.1); Chloride 101 mmol/L (98-107); Creatinine, Serum 1.42 mg/dL (0.55-1.02); EST Glomerular Filtration Rate 39 mL/min (>60); Est Glom Filt Rate - Afr Amer 47 mL/min (>60); Estimated Creatinine Clearance 34.51 ml/min; Globulin 5.5 g/dL (2.2-4.2); Glucose 285 mg/dL (74-106); Potassium 4.8 mmol/L (3.5-5.1); Protein, Total 8.6 g/dL (6.4-8.2); Sodium Level 133 mmol/L (136-145)
[2022-09-12 22:25] LABS: Color, Urine Yellow (Yellow); Glucose, Dipstick Normal (Normal); Ketone-Dipstick Negative (Negative); Leukocyte Esterase-Dipstick 500 /ul (Negative); Nitrite-Dipstick Negative (Negative); Occult Blood-Urine Negative /ul (Negative); Protein-Dipstick 30 mg/dl (Negative); Urine Bilirubin Dipstick Negative (Negative); Urine Clarity Clear (Clear); Urine Urobilinogen Normal (Normal)
[2022-09-12 22:33] LABS: Squamous Epithelial Cells - UA 0-5 SEEN /hpf (5-10); White Blood Cells 25-50 SEEN /hpf (0-5)
[2022-09-12 23:10] VITALS: BP 159/79; PULSE 107; RESP 16; TEMP 36.8; O2SAT 99
[2022-09-12 23:17] VITALS: BP 159/79; PULSE 107; RESP 16; TEMP 36.8; O2SAT 96
--- NOTE | 2022-09-12 23:26 | PCM.HP.STD ---
HPI - General General Date of Admission: 09/12/22 Date of Service: 09/13/22 Chief Complaint: LEFT LOWER QUADRANT PAIN HPI Narrative GINA LEAL, is a 72 F with a significant history of chronic back pain; and PPM in place who presents to the emergency department with excruciating left lower quadrant pain that radiates to her entire abdomen. She rates the pain as 15 on a scale of 1-10. Associated with his symptoms is nausea. Her last bowel movement was about 3 days before presentation. Also patient reports urinary symptoms of dysuria; burning sensation and decreased frequency of urination and for which reason she was started on Macrodantin on the day of presentation and for which she had taken 2 doses before presentation. Macrodantin was started by urologist Dr. Botoh and she was instructed to take MiraLAX by urologist. Of note patient has chronic back pain and follows up with pain management. She used to receive shots on her back. For some reasons she has not received a short antibiotic for the past 5 to 6 months. She has been taking tramadol for her back pain. [facility] Medical History (Updated 09/13/22 @ 00:[address] Prabhakar Murry MD) Asthma Carotid stenosis, bilateral Chronic pain Depression Diabetes GERD (gastroesophageal reflux disease) HLD (hyperlipidemia) HTN (hypertension) Non-smoker Pacemaker Pancreatitis Sleep apnea TIA (transient ischemic attack) Home Medications ezetimibe 10 mg tablet (Zetia) 10 mg PO DAILY . 05/31/19 [History Last Taken Unknown] D-Mannrose PO 2XD UTI 08/03/22 [History Last Taken Unknown] ascorbate calcium (vitamin C) 500 mg tablet 500 mg PO DAILY SUPPLEMENT 08/03/22 [History Last Taken 08/30/22] insulin lispro 100 unit/mL subcutaneous pen (Humalog KwikPen (U-100) Insulin) 15 unit subcut [facility] BLOOD SUGAR 08/03/22 [History Last Taken Unknown] probiotic 1 tab PO DAILY SUPPLEMENT 08/03/22 [History Last Taken Unknown] esomeprazole magnesium 40 mg capsule,delayed release 40 cap PO DAILY . 08/06/22 [History Last Taken Unknown] metoprolol succinate 25 mg tablet,extended release 24 hr 25 mg PO DAILY BLOOD PRESSURE 08/06/22 [History Last Taken Unknown] venlafaxine 150 mg capsule,extended release 24 hr 150 cap PO DAILY . 08/06/22 [History Last Taken Unknown] cholecalciferol (vitamin D3) 50 mcg (2,000 unit) capsule (Vitamin D3) 2,000 unit PO DAILY SUPPLEMENT 08/31/22 [History Last Taken 08/30/22] estradiol 0.01% (0.1 mg/gram) vaginal cream 1 applic vaginal MOWEFR HORMONE 08/31/22 [History Last Taken Unknown] tramadol 50 mg tablet 50 mg PO TID PAIN 08/31/22 [History Last Taken Unknown] trimethoprim 100 mg tablet 100 mg PO QHS . 08/31/22 [History Last Taken Unknown] insulin glargine-yfgn 100 unit/mL (3 mL) subcutaneous pen 35 unit subcut DAILY Check with primary doctor 09/12/22 [History Last Taken Unknown] insulin lispro 100 unit/mL subcutaneous pen (Humalog KwikPen (U-100) Insulin) 20 unit subcut TIDAC Check with primary doctor 09/12/22 [History Last Taken Unknown] nitrofurantoin monohydrate/macrocrystals 100 mg capsule 100 mg PO BID . 09/13/22 [History Last Taken Unknown] Allergy/AdvReac Type Severity Reaction Status Date / Time morphine Allergy Mild Rash Verified 09/12/22 20:37 Penicillins Allergy Mild Rash Verified 09/12/22 20:37 Sulfa (Sulfonamide Allergy Mild Rash Verified 09/12/22 20:37 Antibiotics) Family History Mother Hypertension Father Asthma Depression Diabetes High cholesterol Hypertension Other Arthritis Autoimmune disorder Breast cancer Cancer Kidney disease Surgical History (Updated 09/13/22 @ 00:20 by Gisele Aguilar) H/O section H/O: hysterectomy History of appendectomy History of cholecystectomy Hx laparoscopic cholecystectomy Social History household members: none Smoking Status: Never smoker alcohol intake: never substance use type: does not use what type of physical activity do you participate in: none ROS ROS Narrative Pertinent positives and pertinent negatives as noted in HPI. All other systems were reviewed and are negative Vital Signs Vital Signs Vital Signs: 09/12/22 20:32 09/12/22 20:58 09/12/22 23:10 Temperature 96.7 F L 98.2 F Temperature Source Temporal Oral Pulse Rate 119 H 109 H 107 H Respiratory Rate 20 H 15 16 Blood Pressure 135/85 H 138/84 H 159/79 H Blood Pressure Mean 101 102 105 Pulse Ox 100 100 99 Oxygen Delivery Method Room Air Room Air Room Air 09/12/22 23:17 Temperature 98.2 F Temperature Source Oral Pulse Rate 107 H Respiratory Rate 16 Blood Pressure 159/79 H Blood Pressure Mean 105 Pulse Ox 96 Oxygen Delivery Method Room Air Weight Weight: 87.589 kg Body Mass Index (BMI) 31.1 Physical Exam Narrative Physical exam: General: Well-nourished, well-developed. Head: Normocephalic, atraumatic, no tenderness Eyes: Vision is grossly intact. EOMI ENT, no trauma, moist mucous membranes, no rhinorrhea Neck: Nontender, No thyromegaly. CVS: Regular rate and rhythm. S1-S2 present. No murmur, gallop or rub. Respiratory : clear to auscultation bilaterally, chest wall nontender, no wheezing Abdomen: Soft, nontender, nondistended, normal bowel sounds, no masses : Deferred Back: Nontender, no CVA tenderness Extremities: Nontender full range of motion, no trauma Skin: Normal color, no trauma, abrasions Neuro: Alert, oriented, cranial nerves II through XII grossly intact. Psychiatry: Normal mood. Normal affect. Not depressed. Not anxious. Results Lab / Micro Data Result Diagrams: 09/12/22 21:20 09/12/22 21:20 Labs: Laboratory Results - last 24 hr 09/12/22 20:40: Urine Color Yellow, Urine Clarity Clear, Urine pH 7.0, Ur Specific [place] 1.010, Urine Protein 30 H, Urine Glucose (UA) Normal, Urine Ketones Negative, Urine Occult Blood Negative, Urine Nitrite Negative, Urine Bilirubin Negative, Urine Urobilinogen Normal, Ur Leukocyte Esterase 500 H, Urine RBC 0 SEEN, Urine WBC 25-50 SEEN, Ur Squamous Epith Cells 0-5 SEEN, Urine Bacteria 0 SEEN, Urine Mucus 0 SEEN 09/12/22 21:20: WBC 15.2 H, RBC 4.63, Hgb 12.7, Hct 40.4, MCV 87.3, MCH 27.4, MCHC 31.4 L, RDW Std Deviation 44.2 H, RDW Coeff of Yonathan 14.0, Plt Count 506 H, MPV 8.6, Immature Gran % (Auto) 1.900 H, Neut % (Auto) 75.2 H, Lymph % (Auto) 13.9 L, Adams % (Auto) 6.6, Eos % (Auto) 1.9, Baso % (Auto) 0.5, Absolute Neuts (auto) 11.4 H, Absolute Lymphs (auto) 2.12, Nucleated RBC % 0 09/12/22 21:20: Sodium 133 L, Potassium 4.8, Chloride 101, Carbon Dioxide 25.0, Anion Gap 7, BUN 22 H, Creatinine 1.42 H, Estim Creat Clear Calc 34.51, Est GFR (MDRD) Af Amer 47 L, Est GFR (MDRD) Non-Af 39 L, BUN/Creatinine Ratio 15.5, Glucose 285 H, Calcium 9.7, Total Bilirubin 0.30, AST 23, ALT 26, Alkaline Phosphatase 149 H, Total Protein 8.6 H, Albumin 3.1 L, Globulin 5.5 H, Albumin/Globulin Ratio 0.6 L Radiology Impression Abdomen/Pelvis CT 09/12/22 21:07 IMPRESSION: Mild bibasilar fibrosis. stasis. Mild small bowel ileus left mid abdomen. Pacemaker. Small hiatal hernia. Status post cholecystectomy. Atrophic uterus versus hysterectomy. Degenerative changes lumbar spine as above. Electronically Signed: Sergei Garcia MD, TAYLOR at 23:00 EST Reading Location ID and State: [facility] / [place] Tel , Service support , Assessment & Plan Assessment/Plan (1) Ileus: (2) Diabetes: PLAN: Plan Ileus and constipation CT of abdomen and pelvis with mild small bowel ileus left mid abdomen and fecal stasis. CT of abdomen was independently interpreted and I agree with radiologist interpretation. Suspect narcotic induced. Discussed with patient that narcotics will be avoided at this time. Received fentanyl at the emergency department. On other hand if patient cannot tolerate pain, narcotics will be initiated. We will keep patient NPO. Normal saline infusion ordered. General surgery consult. UTI Urinalysis is abnormal. CBC on presentation was 15,200, trend On home Macrobid. While n.p.o. put on ceftriaxone. Previous urine culture reviewed (09/01/2022 showed mixed gram-positive organisms Urine culture was ordered emergency department, follow-up Diabetes mellitus Patient with hyperglycemia on presentation Monitor Accu-Cheks Correction scale insulin ordered. CKD stage IIIb CKD likely secondary to diabetic nephropathy. Stable. Hypertension Blood pressure is not within goal Will continue home blood pressure medications. As needed hydralazine ordered. Trend blood pressure and adjust blood pressure medications. DVT prophylaxis: SCDs ordered. Charges/Coding Visit Charges Inpatient E&M: 82984 Init Hosp L3
[2022-09-13] VITALS (9 sets, daily range): BP systolic 114–153; BP diastolic 60–91; PULSE 99–114; RESP 14–16; TEMP 36.6–36.9; O2SAT 96–100; BMI 31.0
[2022-09-13] MEDS: 0.9% Normal Saline 1,000 ML 75 ML IV ×2 (01:30→15:40)
[2022-09-13] MEDS: Ondansetron 4 MG/2 ML Vial IV (02:12)
[2022-09-13 05:18] LABS: Absolute Lymphocyte Count 1.97 X10^3/uL (0.83-4.51); Absolute Neutrophil Count 11.4 X10^3/uL (2.0-7.7); Basophil# 0.07 X10^3/uL; Basophil% 0.5 % (0-1); Eosinophil# 0.25 X10^3/uL; Eosinophils% 1.7 % (0-5); Hemoglobin 12.3 g/dL (12.0-15.0); Lymphocyte # 1.97 X10^3/ul (0.83-4.51); Lymphocyte % 13.3 % (19-41); Mean Corp Hgb Conc 32.4 g/dL (32-36); Mean Corpuscular Hgb 28.2 pg (27.0-32.0); Mean Corpuscular Volume 87.2 fL (81-99); Monocyte# 0.95 X10^3/uL; Monocyte% 6.4 % (0-10); NRBC Flagged by Analyzer 0 % (0-5); Neutrophil # 11.37 X10^3/uL (2.7-7.7); Neutrophil % 76.9 % (47-70); Platelet Count 489 K/mm3 (150-450); RBC Distribution Width SD 44.6 fl (35.1-43.9); Red Blood Count 4.36 M/mm3 (4.2-5.4); White Blood Count 14.8 K/mm3 (4.4-11.0)
[2022-09-13] MEDS: Enoxaparin 40 MG/0.4 ML Syringe SC (05:59)
[2022-09-13] MEDS: Insulin Lispro 100 UNIT/ML INSULN.PEN SC ×3 (06:11→18:02)
[2022-09-13] MEDS: Acetaminophen 325 MG Tablet 650 MG PO (06:18)
[2022-09-13 06:22] LABS: Anion Gap 9 (5-15); BUN 19 mg/dL (7-18); BUN/Creat Ratio 15.6 RATIO (10-20); Calcium,Total 9.3 mg/dL (8.5-10.1); Chloride 104 mmol/L (98-107); Creatinine, Serum 1.22 mg/dL (0.55-1.02); EST Glomerular Filtration Rate 46 mL/min (>60); Est Glom Filt Rate - Afr Amer 56 mL/min (>60); Estimated Creatinine Clearance 40.17 ml/min; Glucose 241 mg/dL (74-106); Potassium 4.4 mmol/L (3.5-5.1); Sodium Level 135 mmol/L (136-145)
[2022-09-13 07:00] LABS: Bedside Glucose 248 mg/dL (74-106)
--- NOTE | 2022-09-13 08:06 | PCM.PN.HOSP ---
Subjective Subjective Passed gas, abdomen less tender. No BM yet. Objective Data Objective Data Vital Signs: Vital Signs Temp Pulse Resp BP Pulse Ox O2 Del Method 36.6 C 109 H 16 114/60 97 Room Air 09/13/22 05:15 09/13/22 05:15 09/13/22 05:15 09/13/22 05:15 09/13/22 05:15 09/13/22 05:15 Oxygen Delivery Method Room Air Weight: 87.317 kg Body Mass Index (BMI) 31.0 Intake & Output: Intake and Output for Last 24 Hours 09/11/22 09/12/22 09/13/22 23:59 23:59 23:59 Intake Total 1000 / 1000 Output Total 1050 / 1050 Balance 1000 / 1000 -1050 / -1050 Lab / Micro Data Result Diagrams: 09/13/22 04:34 09/13/22 04:34 Labs: Laboratory Results - last 24 hr 09/12/22 20:40: Urine Color Yellow, Urine Clarity Clear, Urine pH 7.0, Ur Specific [place] 1.010, Urine Protein 30 H, Urine Glucose (UA) Normal, Urine Ketones Negative, Urine Occult Blood Negative, Urine Nitrite Negative, Urine Bilirubin Negative, Urine Urobilinogen Normal, Ur Leukocyte Esterase 500 H, Urine RBC 0 SEEN, Urine WBC 25-50 SEEN, Ur Squamous Epith Cells 0-5 SEEN, Urine Bacteria 0 SEEN, Urine Mucus 0 SEEN 09/12/22 21:20: WBC 15.2 H, RBC 4.63, Hgb 12.7, Hct 40.4, MCV 87.3, MCH 27.4, MCHC 31.4 L, RDW Std Deviation 44.2 H, RDW Coeff of Yonathan 14.0, Plt Count 506 H, MPV 8.6, Immature Gran % (Auto) 1.900 H, Neut % (Auto) 75.2 H, Lymph % (Auto) 13.9 L, [place] % (Auto) 6.6, Eos % (Auto) 1.9, Baso % (Auto) 0.5, Absolute Neuts (auto) 11.4 H, Absolute Lymphs (auto) 2.12, Nucleated RBC % 0 09/12/22 21:20: Sodium 133 L, Potassium 4.8, Chloride 101, Carbon Dioxide 25.0, Anion Gap 7, BUN 22 H, Creatinine 1.42 H, Estim Creat Clear Calc 34.51, Est GFR (MDRD) Af Amer 47 L, Est GFR (MDRD) Non-Af 39 L, BUN/Creatinine Ratio 15.5, Glucose 285 H, Calcium 9.7, Total Bilirubin 0.30, AST 23, ALT 26, Alkaline Phosphatase 149 H, Total Protein 8.6 H, Albumin 3.1 L, Globulin 5.5 H, Albumin/Globulin Ratio 0.6 L 09/13/22 04:34: WBC 14.8 H, RBC 4.36, Hgb 12.3, Hct 38.0, MCV 87.2, MCH 28.2, MCHC 32.4, RDW Std Deviation 44.6 H, RDW Coeff of Yonathan 14.0, Plt Count 489 H, MPV 9.0, Immature Gran % (Auto) 1.200 H, Neut % (Auto) 76.9 H, Lymph % (Auto) 13.3 L, [place] % (Auto) 6.4, Eos % (Auto) 1.7, Baso % (Auto) 0.5, Absolute Neuts (auto) 11.4 H, Absolute Lymphs (auto) 1.97, Nucleated RBC % 0 09/13/22 04:34: Sodium 135 L, Potassium 4.4, Chloride 104, Carbon Dioxide 22.0, Anion Gap 9, BUN 19 H, Creatinine 1.22 H, Estim Creat Clear Calc 40.17, Est GFR (MDRD) Af Amer 56 L, Est GFR (MDRD) Non-Af 46 L, BUN/Creatinine Ratio 15.6, Glucose 241 H, Calcium 9.3 09/13/22 06:08: POC Glucose 248 H Radiography Diagnostic Testing: Radiology Impression Abdomen/Pelvis CT 09/12/22 21:07 IMPRESSION: Mild bibasilar fibrosis. stasis. Mild small bowel ileus left mid abdomen. Pacemaker. Small hiatal hernia. Status post cholecystectomy. Atrophic uterus versus hysterectomy. Degenerative changes lumbar spine as above. Electronically Signed: Sergei Garcia MD, TAYLOR at 23:00 EST Reading Location ID and State: [facility] / [place] Tel , Service support , Physical Exam Const alert and no apparent distress Resp normal respiratory effort, no retractions and no use of accessory muscles Cardio regular rate, regular rhythm, S1 normal heart sound and S2 normal heart sound GI normal to inspection, nondistended, normoactive bowel sounds, soft to palpation, non-tender and non-distended Assessment & Plan Assessment/Plan (1) Ileus: PLAN: Ileus and constipation CT of abdomen and pelvis with mild small bowel ileus left mid abdomen and fecal stasis. CT of abdomen was independently interpreted and I agree with radiologist interpretation. Suspect narcotic induced. Discussed with patient that narcotics will be avoided at this time. Received fentanyl at the emergency department. On other hand if patient cannot tolerate pain, narcotics will be initiated. We will keep patient NPO. Normal saline infusion ordered. General surgery consult. (2) UTI (urinary tract infection): PLAN: UTI Urinalysis is abnormal. CBC on presentation was 15,200, trend On home Macrobid. While n.p.o. put on ceftriaxone. Previous urine culture reviewed (09/01/2022 showed mixed gram-positive organisms Urine culture was ordered emergency department, follow-up PLAN: Plan Diabetes mellitus Patient with hyperglycemia on presentation Monitor Accu-Cheks Correction scale insulin ordered. CKD stage IIIb CKD likely secondary to diabetic nephropathy. Stable. Hypertension Blood pressure is not within goal Will continue home blood pressure medications. As needed hydralazine ordered. Trend blood pressure and adjust blood pressure medications. DVT prophylaxis: SCDs ordered. Charges/Coding Visit Charges Inpatient E&M: 64392 Subs Hosp L2
[2022-09-13] MEDS: Ceftriaxone 1 GM/50 ML BAG IV (09:33)
--- NOTE | 2022-09-13 10:48 | NURSING ---
This RN is aware of Verna FITCH's charting and the pts vitals taken this morning.
--- NOTE | 2022-09-13 12:06 | EX.PCM.CON.S ---
Assessment & Plan Assessment/Plan (1) Constipation: PLAN: This is a 72-year-old female, with a number of comorbidities noted in HPI, who presents with several day history of no bowel movement and significant abdominal pain with nausea. Overall symptoms have significantly improved since her admission and she denies any of the nausea with what she first presented. She confirms ongoing flatus but still no bowel movement. In review of her history, I am concerned that she has compounded a natural predisposition for constipation with use of narcotics to treat her back pain. She has a very significant stool burden extending from her ascending colon through the hepatic flexure and into the transverse colon. I do not see any signs of colonic compromise in my independent review of the imaging. Given her reassuring exam, I recommend conservative measures with enemas and motility stimulation via the rectum. With patient having mildly dilated small bowel and nausea symptoms yesterday, I would hope not to precipitate further symptoms with prokinetics from above. Recommend: ? Agree with n.p.o. status and maintenance IV fluids ? KUB now to follow progress of stool burden ? Soapsuds enemas 3 times daily ? Minimize any narcotic administration ? Remainder of care per hospitalist service (2) Ileus: HPI Consult Data Date of Consult: 09/13/22 HPI Narrative Reason for Consultation: Small bowel ileus and severe constipation HPI Narrative: GINA LEAL, is a 72 F who presented to [facility] yesterday with complaints of diffuse abdominal pain and plaints of significant constipation. According to patient it had been 2-1/2 days since her last bowel movement. She admits that she suffers from constipation at baseline and requires both stool softeners and regular MiraLAX use to have bowel movements at the irregular frequency that she does. She also notes that she has been on more pain medication for her chronic back pains since she has not been able to receive injections through pain management due to their negative effects on her blood sugar. She states that her last bowel movement was 09/10/2022 and that this was formed in character but not associated with any bleeding. She states that she is still continuing to pass a small amount of gas. Patient has a history of colonoscopy remotely?she estimates around 10 years ago?but is uncertain of the exact timing or results. She denies any personal history of diverticulitis or polyps. She has experienced some recent weight gain (she reports 5 pounds) due to decreased activity with her back pain. ER work-up was notable for mild leukocytosis and CT imaging showing moderate fecal impaction with probable small bowel ileus. Patient states that she had a small amount of nausea yesterday, but denies any nausea today. Patient has a past medical history of GERD well-controlled on Nexium, pancreatitis with last episode in the , as well as bilateral carotid artery stenosis, diabetes mellitus, hypertension, pacer, and untreated obstructive sleep apnea. Patient past surgical history (from abdominal standpoint) consists of 2 sections, hysterectomy (with incidental appendectomy), and laparoscopic cholecystectomy. [facility] Medical History (Updated 09/13/22 @ 12:[address] Mahamed Tipton MD) Asthma Carotid stenosis, bilateral Chronic pain Depression Diabetes GERD (gastroesophageal reflux disease) HLD (hyperlipidemia) HTN (hypertension) Non-smoker Pacemaker Pancreatitis Sleep apnea TIA (transient ischemic attack) Home Medications ezetimibe 10 mg tablet (Zetia) 10 mg PO DAILY . 05/31/19 [History Last Taken Unknown] D-Mannrose PO 2XD UTI 08/03/22 [History Last Taken Unknown] ascorbate calcium (vitamin C) 500 mg tablet 500 mg PO DAILY SUPPLEMENT 08/03/22 [History Last Taken 08/30/22] insulin lispro 100 unit/mL subcutaneous pen (Humalog KwikPen (U-100) Insulin) 20 unit subcut [facility] BLOOD SUGAR 08/03/22 [History Last Taken Unknown] probiotic 1 tab PO DAILY SUPPLEMENT 08/03/22 [History Last Taken Unknown] esomeprazole magnesium 40 mg capsule,delayed release 40 cap PO DAILY . 08/06/22 [History Last Taken Unknown] metoprolol succinate 25 mg tablet,extended release 24 hr 25 mg PO QHS BLOOD PRESSURE 08/06/22 [History Last Taken Unknown] venlafaxine 150 mg capsule,extended release 24 hr 150 cap PO DAILY DEPRESSION 08/06/22 [History Last Taken Unknown] cholecalciferol (vitamin D3) 50 mcg (2,000 unit) capsule (Vitamin D3) 2,000 unit PO DAILY SUPPLEMENT 08/31/22 [History Last Taken 08/30/22] estradiol 0.01% (0.1 mg/gram) vaginal cream 1 applic vaginal MOWEFR HORMONE 08/31/22 [History Last Taken Unknown] insulin glargine-yfgn 100 unit/mL (3 mL) subcutaneous pen 35 unit subcut DAILY Check with primary doctor 09/12/22 [History Last Taken Unknown] insulin lispro 100 unit/mL subcutaneous pen (Humalog KwikPen (U-100) Insulin) 20 unit subcut TIDAC Check with primary doctor 09/12/22 [History Last Taken Unknown] nitrofurantoin monohydrate/macrocrystals 100 mg capsule 100 mg PO BID UTI 09/13/22 [History Last Taken Unknown] oxycodone-acetaminophen 5 mg-325 mg tablet 1 tab PO Q6H PRN PRN Pain 09/13/22 [History Last Taken Unknown] Allergy/AdvReac Type Severity Reaction Status Date / Time morphine Allergy Mild Rash Verified 09/12/22 20:37 Penicillins Allergy Mild Rash Verified 09/12/22 20:37 Sulfa (Sulfonamide Allergy Mild Rash Verified 09/12/22 20:37 Antibiotics) Family History Mother Hypertension Father Asthma Depression Diabetes High cholesterol Hypertension Other Arthritis Autoimmune disorder Breast cancer Cancer Kidney disease Surgical History (Updated 09/13/22 @ 00:20 by Gisele Aguilar) H/O section H/O: hysterectomy History of appendectomy History of cholecystectomy Hx laparoscopic cholecystectomy Social History household members: none Smoking Status: Never smoker alcohol intake: never substance use type: does not use what type of physical activity do you participate in: none Physical Exam Const alert, oriented x3 and no apparent distress Resp normal respiratory effort GI GI Narrative: Lower abdominal scar and upper port site scars well-healed. Mildly distended. Soft and mildly tender to palpation in the left upper quadrant. Lab / Micro Data Result Diagrams: 09/13/22 04:34 09/13/22 04:34 Labs: Laboratory Results - last 24 hr 09/12/22 20:40: Urine Color Yellow, Urine Clarity Clear, Urine pH 7.0, Ur Specific [place] 1.010, Urine Protein 30 H, Urine Glucose (UA) Normal, Urine Ketones Negative, Urine Occult Blood Negative, Urine Nitrite Negative, Urine Bilirubin Negative, Urine Urobilinogen Normal, Ur Leukocyte Esterase 500 H, Urine RBC 0 SEEN, Urine WBC 25-50 SEEN, Ur Squamous Epith Cells 0-5 SEEN, Urine Bacteria 0 SEEN, Urine Mucus 0 SEEN 09/12/22 21:20: WBC 15.2 H, RBC 4.63, Hgb 12.7, Hct 40.4, MCV 87.3, MCH 27.4, MCHC 31.4 L, RDW Std Deviation 44.2 H, RDW Coeff of Yonathan 14.0, Plt Count 506 H, MPV 8.6, Immature Gran % (Auto) 1.900 H, Neut % (Auto) 75.2 H, Lymph % (Auto) 13.9 L, [place] % (Auto) 6.6, Eos % (Auto) 1.9, Baso % (Auto) 0.5, Absolute Neuts (auto) 11.4 H, Absolute Lymphs (auto) 2.12, Nucleated RBC % 0 09/12/22 21:20: Sodium 133 L, Potassium 4.8, Chloride 101, Carbon Dioxide 25.0, Anion Gap 7, BUN 22 H, Creatinine 1.42 H, Estim Creat Clear Calc 34.51, Est GFR (MDRD) Af Amer 47 L, Est GFR (MDRD) Non-Af 39 L, BUN/Creatinine Ratio 15.5, Glucose 285 H, Calcium 9.7, Total Bilirubin 0.30, AST 23, ALT 26, Alkaline Phosphatase 149 H, Total Protein 8.6 H, Albumin 3.1 L, Globulin 5.5 H, Albumin/Globulin Ratio 0.6 L 09/13/22 04:34: WBC 14.8 H, RBC 4.36, Hgb 12.3, Hct 38.0, MCV 87.2, MCH 28.2, MCHC 32.4, RDW Std Deviation 44.6 H, RDW Coeff of Yonathan 14.0, Plt Count 489 H, MPV 9.0, Immature Gran % (Auto) 1.200 H, Neut % (Auto) 76.9 H, Lymph % (Auto) 13.3 L, [place] % (Auto) 6.4, Eos % (Auto) 1.7, Baso % (Auto) 0.5, Absolute Neuts (auto) 11.4 H, Absolute Lymphs (auto) 1.97, Nucleated RBC % 0 09/13/22 04:34: Sodium 135 L, Potassium 4.4, Chloride 104, Carbon Dioxide 22.0, Anion Gap 9, BUN 19 H, Creatinine 1.22 H, Estim Creat Clear Calc 40.17, Est GFR (MDRD) Af Amer 56 L, Est GFR (MDRD) Non-Af 46 L, BUN/Creatinine Ratio 15.6, Glucose 241 H, Calcium 9.3 09/13/22 06:08: POC Glucose 248 H Radiology Impression Abdomen/Pelvis CT 09/12/22 21:07 IMPRESSION: Mild bibasilar fibrosis. stasis. Mild small bowel ileus left mid abdomen. Pacemaker. Small hiatal hernia. Status post cholecystectomy. Atrophic uterus versus hysterectomy. Degenerative changes lumbar spine as above. Electronically Signed: Sergei Garcia MD, TAYLOR at 23:00 EST Reading Location ID and State: [facility] / [place] Tel , Service support , Charges/Coding Visit Charges Inpatient E&M: 41118 Init Hosp L2
[2022-09-13] MEDS: Fleet Enema 1 ML RC (12:29)
[2022-09-13 13:30] LABS: Bedside Glucose 292 mg/dL (74-106)
--- NOTE | 2022-09-13 15:20 | RAD_ITS ---
EXAM: XR ABDOMEN, 1 VIEW CLINICAL INDICATION: assess progress of fecal impaction TECHNIQUE: Frontal supine view of the abdomen/pelvis. This report was created using [employer] report generation technology. COMPARISON: Study done yesterday FINDINGS: LOWER THORAX: No acute pathology. GASTROINTESTINAL TRACT: Persistent stool in the right side of the colon. Non-obstructive. No bowel or stomach distention. ORGANS: There are multiple metallic clips in the right upper quadrant. This is consistent for a cholecystectomy. No organomegaly. No abnormal calcifications. BONES/JOINTS: Degenerative findings in the lumbar spine. SOFT TISSUES: No acute pathology. RAD/Abdomen Single View (Portable) IMPRESSION: Persistent stool in the right side of the colon. Electronically Signed: Richard Garrido MD at 15:37 EST ,
[2022-09-13 18:35] LABS: Bedside Glucose 359 mg/dL (74-106)
[2022-09-14] MEDS: Insulin Lispro 100 UNIT/ML INSULN.PEN SC ×3 (00:55→11:44)
[2022-09-14 01:15] LABS: Bedside Glucose 239 mg/dL (74-106)
[2022-09-14 02:54] VITALS: BP 128/77; PULSE 109; RESP 16; TEMP 37.1; O2SAT 94
[2022-09-14] MEDS: 0.9% Normal Saline 1,000 ML 75 ML IV (04:29)
[2022-09-14] MEDS: Enoxaparin 40 MG/0.4 ML Syringe SC (06:51)
[2022-09-14 07:25] LABS: Bedside Glucose 264 mg/dL (74-106)
--- NOTE | 2022-09-14 07:47 | PCM.PN.HOSP ---
Subjective Subjective Feeling well today, has no complaints. Had good bowel movement with enema Objective Data Objective Data Vital Signs: Vital Signs Temp Pulse Resp BP Pulse Ox O2 Del Method 98.7 F 109 H 16 128/77 H 94 Room Air 09/14/22 02:54 09/14/22 02:54 09/14/22 02:54 09/14/22 02:54 09/14/22 02:54 09/14/22 02:54 Oxygen Delivery Method Room Air Weight: 87.317 kg Body Mass Index (BMI) 31.0 Intake & Output: Intake and Output for Last 24 Hours 09/12/22 09/13/22 09/14/22 23:59 23:59 23:59 Intake Total 1000 / 1000 1650 / 1950 1261.25 / 1261.25 Output Total 1050 / 1050 900 / 900 Balance 1000 / 1000 600 / 900 361.25 / 361.25 Lab / Micro Data Result Diagrams: 09/13/22 04:34 09/13/22 04:34 Labs: Laboratory Results - last 24 hr 09/13/22 13:05: POC Glucose 292 H 09/13/22 17:58: POC Glucose 359 H 09/14/22 00:52: POC Glucose 239 H 09/14/22 06:46: POC Glucose 264 H Radiography Diagnostic Testing: Radiology Impression KUB X-Ray 09/13/22 15:20 IMPRESSION: Persistent stool in the right side of the colon. Electronically Signed: Richard Garrido MD at 15:37 EST Reading Location ID and State: [facility] / [place] , Service support , Physical Exam Const alert and no apparent distress Constitutional Narrative: Oriented HEENT normocephalic and head/scalp atraumatic Eyes Eyes Narrative: EOM grossly intact, anicteric Neck supple Resp normal respiratory effort and clear to auscultation bilaterally Cardio regular rate and regular rhythm GI soft to palpation, non-tender and non-distended Extremity Extremity Narrative: No edema appreciated Neuro moves all extremities Neuro Narrative: No overt focal deficits appreciated Psych Psych Narrative: Cooperative Assessment & Plan Assessment/Plan (1) Ileus: (2) UTI (urinary tract infection): PLAN: Plan 9-year-old female admitted 09/12 with left lower quadrant pain with nausea and no bowel movement for 3 days, additionally and symptoms of dysuria and had been started on Macrobid the day of presentation by her urologist. Has a history of back pain and receives tramadol #Ileus and constipation N.p.o. and IV fluids CT abdomen pelvis with mild small bowel ileus as well as fecal stasis Possibly narcotic induced General surgery consulted-conservative measures recommended with enemas motility stimulation KUB on 09/13 demonstrated persistence on the right side of the colon #UTI Had symptoms and CBC elevated on presentation Rocephin Urine culture ordered and pending, no growth to date #Type 2 diabetes mellitus Accu-Cheks insulin Insulin #CKD stage IIIb Avoid nephrotoxic agents, trend BMP #Hypertension Continue home medications #DVT ppx: Lovenox Penny Ellis MD
--- NOTE | 2022-09-14 08:38 | PCM.PN.SRG ---
Subjective Subjective Patient seen and examined during AM rounds. She confirms her chart that she had several loose bowel movements and last evening. Improvement in her abdominal discomfort and an appetite. She reports tolerating liquids without issue. She wishes to know whether will be possible to discharge to home later today. Objective Data Objective Data Vital Signs: Vital Signs Temp Pulse Resp BP Pulse Ox O2 Del Method 98.7 F 109 H 16 128/77 H 94 Room Air 09/14/22 02:54 09/14/22 02:54 09/14/22 02:54 09/14/22 02:54 09/14/22 02:54 09/14/22 02:54 Oxygen Delivery Method Room Air Weight: 192 lb 8 oz Body Mass Index (BMI) 31.0 Intake & Output: Intake and Output for Last 24 Hours 09/12/22 09/13/22 09/14/22 23:59 23:59 23:59 Intake Total 1000 / 1000 1650 / 1950 1261.25 / 1261.25 Output Total 1050 / 1050 900 / 900 Balance 1000 / 1000 600 / 900 361.25 / 361.25 Lab / Micro Data Result Diagrams: 09/13/22 04:34 09/13/22 04:34 Labs: Laboratory Results - last 24 hr 09/13/22 13:05: POC Glucose 292 H 09/13/22 17:58: POC Glucose 359 H 09/14/22 00:52: POC Glucose 239 H 09/14/22 06:46: POC Glucose 264 H Radiography Diagnostic Testing: Radiology Impression KUB X-Ray 09/13/22 15:20 IMPRESSION: Persistent stool in the right side of the colon. Electronically Signed: Richard Garrido MD at 15:37 EST , Physical Exam Const oriented x3 and no apparent distress GI GI Narrative: Nondistended, soft, nontender to palpation x4 quadrants Assessment & Plan Assessment/Plan (1) Constipation: PLAN: This is a 72-year-old female with severe constipation secondary to narcotic use for chronic back pain. Patient initiated on scheduled enemas yesterday with positive results in loose bowel movements and improvement in her abdominal discomfort. She is now expressing an appetite and has been successfully advanced to liquids. Recommend additional enema and initiation of lactulose today to be sure that patient's bulk of her fecal impaction has moved. If patient has further positive results, from a surgical standpoint, patient could be considered for discharge to home. Additionally, would recommend patient to receive a prescription for lactulose on discharge if this does seem to be more effective for her bowel movements as she repeatedly tells me that serial MiraLAX administrations was ineffective prior to her hospitalization. Recommend: ? Okay to advance diet as tolerated ? No need for repeat KUB today as patient has had bowel movements ? Soapsuds enema again today ? Add lactulose p.o. and follow for results ? Minimize any narcotic administration ? Remainder of care per hospitalist service, but if patient has further bowel activity today and response to treatment, from a surgical standpoint would be okay with discharge to home (2) Ileus: Charges/Coding Visit Charges Inpatient E&M: 39107 Subs Hosp L2
[2022-09-14 09:00] VITALS: BP 143/82; PULSE 101; RESP 16; TEMP 36.8; O2SAT 99
[2022-09-14 10:00] VITALS: PULSE 101
--- NOTE | 2022-09-14 10:01 | DCINST_ITS ---
Discharge Instructions Diet Discharge Diet: Light diet - advance as tolerated Activity Discharge Activity: No Restrictions Follow Up Care Please Follow Up With: Mahamed Tipton MD When: 2 weeks. Please call for an appointment [phone] Test Results: Test results from this visit will be discussed in further detail at your follow- up appointment, if applicable. Discharge Plan Admission Admit Date/Time: 09/12/22 23:15 Attending Provider: Penny Ellis Primary Care Provider: Danya Lanier Consulting Providers: Prabhakar Murry ; Mahamed Tipton ; Emmanuel Hidalgo Discharge Orders/Prescriptions Prescriptions: No Action ezetimibe [Zetia] 10 mg tablet 10 mg PO DAILY insulin lispro [Humalog KwikPen Insulin] 100 unit/mL insulin pen 20 unit SC QAC Rx Instructions: > 200 HAS A SLIDING SCALE FOR COVERAGE metoprolol succinate 25 mg tablet extended release 24 hr 25 mg PO QHS Label Comments: TAKE 1 TABLET BY MOUTH ONCE DAILY venlafaxine 150 mg capsule,extended release 24hr 150 cap PO DAILY esomeprazole magnesium 40 mg capsule,delayed release(DR/EC) 40 cap PO DAILY probiotic 1 tab PO DAILY ascorbate calcium (vitamin C) 500 mg tablet 500 mg PO DAILY D-Mannrose PO 2XD Rx Instructions: 1000mg estradiol 0.01 % (0.1 mg/gram) cream 1 applic VAGINAL MOWEFR Label Comments: INSERT 1 GRAM VAGINALLY 3 TIMES A WEEK BEFORE BED cholecalciferol (vitamin D3) [Vitamin D3] 50 mcg (2,000 unit) capsule 2,000 unit PO DAILY Label Comments: TAKE 1 CAPSULE BY MOUTH ONCE DAILY insulin lispro [Humalog KwikPen Insulin] 100 unit/mL insulin pen 20 unit subcut TIDAC insulin glargine-yfgn 100 unit/mL (3 mL) insulin pen 35 unit subcut DAILY nitrofurantoin monohyd/m-cryst 100 mg capsule 100 mg PO BID oxycodone-acetaminophen 5-325 mg tablet 1 tab PO Q6H PRN PRN (Reason: Pain) Referrals / Follow Up: Danya Lanier MD [Primary Care Provider] -
[2022-09-14] MEDS: Ceftriaxone 1 GM/50 ML BAG IV (10:46)
[2022-09-14 11:41] LABS: Bedside Glucose 221 mg/dL (74-106)
[2022-09-14] MEDS: Lactulose 20 GM/30 ML UDC 10 GM PO (11:44)
--- NOTE | 2022-09-14 12:50 | CASEMGMT ---
VIKA SINGH Readmission Review: Index: 08/31 thru 09/01/22, Dx: complicated UTI Readmission: 09/12/22, Dx: Ileus Pt previously admitted with UTI and discharged to home with continuation of po antibiotics. Pt noted on index to live alone in a single story home, drives self and is independent with her ADLs. Pt readmitted with ileus and continuation of UTI tx. [id number] visit with pt at bedside. Pt alert and oriented x4, agreeable to discussion with this VIKA SINGH. Pt states she attended her appointment with Dr. Booth on 09/08 and states she has an additional follow-up appointment at the end of the month. Pt states she has managed her insulin adjustments well after discharge and uses her Freestyle to monitor her glucose levels. Pt states she works with Dr. Delacruz's office to manage her diabetes. Pt states she has access to DME at home if needed but states she has been doing well since discharged from her index admission and denies any additional needs at discharge planned for this date. Sharri Sanchez RN CM
[2022-09-14] MEDS: Acetaminophen 325 MG Tablet 650 MG PO (13:48)
[2022-09-14 15:00] VITALS: BP 140/78; PULSE 98; RESP 16; TEMP 36.9; O2SAT 98
--- NOTE | 2022-09-14 17:02 | DCINST_ITS ---
Discharge Instructions Diet Discharge Diet: Light diet - advance as tolerated Activity Discharge Activity: Return to Normal Activity Follow Up Care Please Follow Up With: Mahamde Tipton MD Test Results: Test results from this visit will be discussed in further detail at your follow- up appointment, if applicable. Discharge Plan Admission Admit Date/Time: 09/12/22 23:15 Primary Reason for Your Visit: Abdominal pain Attending Provider: Penny Ellis Primary Care Provider: Danya Lanier Consulting Providers: Prabhakar Murry ; Mahamed Tipton ; Emmanuel Hidalgo Instructions Patient Instructions: ED Constipation (Adult) Additional Instructions / Restrictions: *Please take this with you to your next doctors appointment* -Please follow up with Dr. Mahamed Tipton in 2 weeks. Please call the office upon discharge to schedule this appointment [phone] -You will need to take lactulose on discharge, you can take 10 gm daily, this was sent to preferred pharmacy on file ?Advised to take 25 units of your long-acting insulin as well as sliding scale upon discharge, once you begin eating regular diet this will likely need to go back up to home dose, please discuss with your primary care physician upon discharge -Would minimize opioid pain medications as this can contribute to constipation ?Advance your diet as tolerated ?Continue to follow with your urologist upon discharge, you can complete your Macrobid course -Please call your primary care provider's office upon discharge to schedule a hospital follow up within 1 week. -For any concerning signs or symptoms please call 911 or proceed to the nearest emergency department Discharge Orders/Prescriptions Prescriptions: New lactulose 10 gram/15 mL solution 10 g PO DAILY Qty: 473 0RF Continued ezetimibe [Zetia] 10 mg tablet 10 mg PO DAILY metoprolol succinate 25 mg tablet extended release 24 hr 25 mg PO QHS Label Comments: TAKE 1 TABLET BY MOUTH ONCE DAILY venlafaxine 150 mg capsule,extended release 24hr 150 cap PO DAILY esomeprazole magnesium 40 mg capsule,delayed release(DR/EC) 40 cap PO DAILY probiotic 1 tab PO DAILY ascorbate calcium (vitamin C) 500 mg tablet 500 mg PO DAILY D-Mannrose PO 2XD Rx Instructions: 1000mg estradiol 0.01 % (0.1 mg/gram) cream 1 applic VAGINAL MOWEFR Label Comments: INSERT 1 GRAM VAGINALLY 3 TIMES A WEEK BEFORE BED cholecalciferol (vitamin D3) [Vitamin D3] 50 mcg (2,000 unit) capsule 2,000 unit PO DAILY Label Comments: TAKE 1 CAPSULE BY MOUTH ONCE DAILY nitrofurantoin monohyd/m-cryst 100 mg capsule 100 mg PO BID Changed insulin glargine-yfgn 100 unit/mL (3 mL) insulin pen 25 unit subcut DAILY Qty: 15 0RF Held insulin lispro [Humalog KwikPen Insulin] 100 unit/mL insulin pen 20 unit SC QAC Hold Instructions: Resume on 09/16/22. Rx Instructions: > 200 HAS A SLIDING SCALE FOR COVERAGE insulin lispro [Humalog KwikPen Insulin] 100 unit/mL insulin pen 20 unit subcut TIDAC Hold Instructions: Resume on 09/16/22. Discontinued oxycodone-acetaminophen 5-325 mg tablet 1 tab PO Q6H PRN PRN (Reason: Pain) Referrals / Follow Up: Mahamed Tipton MD [Med Staff - Active Staff] - Within 2 Weeks Danya Lanier MD [Primary Care Provider] - Within 1 Week Disposition Disposition (needs filled in before D/C Order can be placed): Home, Self Care
--- NOTE | 2022-09-14 17:22 | PCM.DC.SUM ---
Providers Date of Admission: 09/12/22 Date of Discharge: 09/14/22 Primary Care Physician: Dr. Danya Lanier MD Consultations 09/13/22 00:33 Consult: General Surgery Routine Consulting Provider: Mahamed Tipton Reason for Consult: Ileus EMERGENT Consult: Yes Notified: Yes Date Notified: 09/12/22 Time Notified: 23:24 Method of Notification: phone Reason For Visit: ILEUS Diagnosis Discharge Diagnosis (1) Ileus: Status: Acute Code(s): K56.7 - Ileus, unspecified (2) UTI (urinary tract infection): Status: Acute Code(s): N39.0 - Urinary tract infection, site not specified Plan 9-year-old female admitted 09/12 with left lower quadrant pain with nausea and no bowel movement for 3 days, additionally and symptoms of dysuria and had been started on Macrobid the day of presentation by her urologist. Has a history of back pain and receives tramadol #Ileus and constipation N.p.o. and IV fluids CT abdomen pelvis with mild small bowel ileus as well as fecal stasis Possibly narcotic induced General surgery consulted-conservative measures recommended with enemas motility stimulation KUB on 09/13 demonstrated persistence on the right side of the colon #UTI Had symptoms and CBC elevated on presentation Rocephin Urine culture ordered and pending, no growth to date #Type 2 diabetes mellitus Accu-Cheks insulin Insulin #CKD stage IIIb Avoid nephrotoxic agents, trend BMP #Hypertension Continue home medications Medications at Discharge Home Medications ezetimibe 10 mg tablet (Zetia) 10 mg PO DAILY . 05/31/19 D-Mannrose PO 2XD UTI 08/03/22 ascorbate calcium (vitamin C) 500 mg tablet 500 mg PO DAILY SUPPLEMENT 08/03/22 insulin lispro 100 unit/mL subcutaneous pen (Humalog KwikPen (U-100) Insulin) 20 unit subcut [facility] BLOOD SUGAR 08/03/22 probiotic 1 tab PO DAILY SUPPLEMENT 08/03/22 esomeprazole magnesium 40 mg capsule,delayed release 40 cap PO DAILY . 08/06/22 metoprolol succinate 25 mg tablet,extended release 24 hr 25 mg PO QHS BLOOD PRESSURE 08/06/22 venlafaxine 150 mg capsule,extended release 24 hr 150 cap PO DAILY DEPRESSION 08/06/22 cholecalciferol (vitamin D3) 50 mcg (2,000 unit) capsule (Vitamin D3) 2,000 unit PO DAILY SUPPLEMENT 08/31/22 estradiol 0.01% (0.1 mg/gram) vaginal cream 1 applic vaginal MOWEFR HORMONE 08/31/22 insulin lispro 100 unit/mL subcutaneous pen (Humalog KwikPen (U-100) Insulin) 20 unit subcut TIDAC Check with primary doctor 09/12/22 nitrofurantoin monohydrate/macrocrystals 100 mg capsule 100 mg PO BID UTI 09/13/22 insulin glargine-yfgn 100 unit/mL (3 mL) subcutaneous pen 25 unit (0.25 mL) subcut DAILY Check with primary doctor #15 mL 09/14/22 lactulose 10 gram/15 mL oral solution 10 g (15 mL) PO DAILY #473 mL 09/14/22 Hospital Course Summary of Care Provided Minutes Spent on Discharge: 35 Hospital Course: 72-year-old female with history of chronic back pain as well as permanent pacemaker who presented 09/13/2022 with left lower quadrant pain. Of note she also was recently seen by her urologist and was started on Macrobid for UTI. CT of the abdomen pelvis showed mild small bowel ileus of the left mid abdomen and fecal stasis. Suspected narcotic induced ileus and constipation. General surgery consulted. Additionally her antibiotics were changed to Rocephin as she was n.p.o. She was given an enema and diet started and she did begin having stool output, no significant nausea or abdominal pain. Got another enema 09/14 and additionally had dose of lactulose which is improved her output. She denied any complaints on day of discharge and surgery comfortable with discharge this afternoon. Instructions given is followed: -Please follow up with Dr. Mahamed Tipton in 2 weeks. Please call the office upon discharge to schedule this appointment [phone] -You will need to take lactulose on discharge, you can take 10 gm daily, this was sent to preferred pharmacy on file ?Advised to take 25 units of your long-acting insulin as well as sliding scale upon discharge, once you begin eating regular diet this will likely need to go back up to home dose, please discuss with your primary care physician upon discharge -Would minimize opioid pain medications as this can contribute to constipation ?Advance your diet as tolerated ?Continue to follow with your urologist upon discharge, you can complete your Macrobid course -Please call your primary care provider's office upon discharge to schedule a hospital follow up within 1 week. -For any concerning signs or symptoms please call 911 or proceed to the nearest emergency department Physical Exam Const alert and no apparent distress Constitutional Narrative: Oriented HEENT normocephalic and head/scalp atraumatic Eyes Eyes Narrative: EOM grossly intact, anicteric Neck supple Resp normal respiratory effort and clear to auscultation bilaterally Cardio regular rate and regular rhythm GI soft to palpation, non-tender and non-distended Extremity Extremity Narrative: No edema appreciated Neuro moves all extremities Neuro Narrative: No overt focal deficits appreciated Psych Psych Narrative: Cooperative Weight / BMI Weight Weight: 87.317 kg Body Mass Index (BMI) 31.0 ABG / Lab / Microbiology Data Result Diagrams: 09/13/22 04:34 09/13/22 04:34 Laboratory: Laboratory Results - last 24 hr 09/13/22 17:58: POC Glucose 359 H 09/14/22 00:52: POC Glucose 239 H 09/14/22 06:46: POC Glucose 264 H 09/14/22 11:21: POC Glucose 221 H Microbiology: Microbiology 09/12/22 20:40 Urine, Clean Catch Urine Culture - Final Culture exhibits no growth. D/C Instructions Discharge Diet: Light diet - advance as tolerated Please Follow Up With: Mahamed Tipton MD When: 2 weeks. Please call for an appointment [phone] Meaningful Use Info Meaningful Use Diagnoses (Choose all that apply): None applicable Discharge Plan Admission Admit Date/Time: 09/12/22 23:15 Primary Reason for Your Visit: Abdominal pain Attending Provider: Penny Ellis Primary Care Provider: Danya Lanier Consulting Providers: Prabhakar Murry ; Mahamed Tipton ; Emmanuel Hidalgo Instructions Patient Instructions: ED Constipation (Adult) Additional Instructions / Restrictions: *Please take this with you to your next doctors appointment* -Please follow up with Dr. Mahamed Tipton in 2 weeks. Please call the office upon discharge to schedule this appointment [phone] -You will need to take lactulose on discharge, you can take 10 gm daily, this was sent to preferred pharmacy on file ?Advised to take 25 units of your long-acting insulin as well as sliding scale upon discharge, once you begin eating regular diet this will likely need to go back up to home dose, please discuss with your primary care physician upon discharge -Would minimize opioid pain medications as this can contribute to constipation ?Advance your diet as tolerated ?Continue to follow with your urologist upon discharge, you can complete your Macrobid course -Please call your primary care provider's office upon discharge to schedule a hospital follow up within 1 week. -For any concerning signs or symptoms please call 911 or proceed to the nearest emergency department Discharge Orders/Prescriptions Prescriptions: New lactulose 10 gram/15 mL solution 10 g PO DAILY Qty: 473 0RF Continued ezetimibe [Zetia] 10 mg tablet 10 mg PO DAILY metoprolol succinate 25 mg tablet extended release 24 hr 25 mg PO QHS Label Comments: TAKE 1 TABLET BY MOUTH ONCE DAILY venlafaxine 150 mg capsule,extended release 24hr 150 cap PO DAILY esomeprazole magnesium 40 mg capsule,delayed release(DR/EC) 40 cap PO DAILY probiotic 1 tab PO DAILY ascorbate calcium (vitamin C) 500 mg tablet 500 mg PO DAILY D-Mannrose PO 2XD Rx Instructions: 1000mg estradiol 0.01 % (0.1 mg/gram) cream 1 applic VAGINAL MOWEFR Label Comments: INSERT 1 GRAM VAGINALLY 3 TIMES A WEEK BEFORE BED cholecalciferol (vitamin D3) [Vitamin D3] 50 mcg (2,000 unit) capsule 2,000 unit PO DAILY Label Comments: TAKE 1 CAPSULE BY MOUTH ONCE DAILY nitrofurantoin monohyd/m-cryst 100 mg capsule 100 mg PO BID Changed insulin glargine-yfgn 100 unit/mL (3 mL) insulin pen 25 unit subcut DAILY Qty: 15 0RF Held insulin lispro [Humalog KwikPen Insulin] 100 unit/mL insulin pen 20 unit SC QAC Hold Instructions: Resume on 09/16/22. Rx Instructions: > 200 HAS A SLIDING SCALE FOR COVERAGE insulin lispro [Humalog KwikPen Insulin] 100 unit/mL insulin pen 20 unit subcut TIDAC Hold Instructions: Resume on 09/16/22. Discontinued oxycodone-acetaminophen 5-325 mg tablet 1 tab PO Q6H PRN PRN (Reason: Pain) Referrals / Follow Up: Mahamed Tipton MD [Med Staff - Active Staff] - Within 2 Weeks Danya Lanier MD [Primary Care Provider] - Within 1 Week Disposition Disposition (needs filled in before D/C Order can be placed): Home, Self Care Charges/Coding Visit Charges Inpatient E&M: 21951 Disch Hosp >30min
== END 2022-09-14 18:05 | disposition home or self-care (01) | DRG 389 ==
LOC: ED 23:07 → MS2 09-13 02:47
PROVIDERS: Admitting Provider Hospitalist; Emergency Provider Emergency Medicine; PCP Student in an Organized Health Care Education/Training Program; Visit Provider Internal Medicine
DX: K56.7 Ileus, unspecified (principal); N39.0 Urinary tract infection, site not specified; E11.22 Type 2 diabetes mellitus with diabetic chronic kidney disease; E78.5 Hyperlipidemia, unspecified; B96.89 Other specified bacterial agents as the cause of diseases classified elsewhere; F32.A Depression, unspecified; Z79.4 Long term (current) use of insulin; N18.32 Chronic kidney disease, stage 3b; I12.9 Hypertensive chronic kidney disease with stage 1 through stage 4 chronic kidney disease, or unspecified chronic kidney disease; K21.9 Gastro-esophageal reflux disease without esophagitis; G89.29 Other chronic pain; Z79.899 Other long term (current) drug therapy
CPT/HCPCS: 36415; 74018; 74177; 80048; 80053; 81001; 82962; 85025; 87086; 97162; 99283; J7030; Q9967; A4216; J2405

== ENCOUNTER 2022-09-18 08:38 | Inpatient (IN) | payer MEDICARE, BC, SELFPAY ==
[2022-09-18 08:39] VITALS: BP 124/74; PULSE 81; RESP 17; TEMP 36; O2SAT 100; BMI 31.1
--- NOTE | 2022-09-18 09:27 | CT_ITS ---
STUDY: CT ABDOMEN AND PELVIS WITH CONTRAST REASON FOR EXAM: Female, 72 years old. Low back and abdominal pain. History of constipation. RADIATION DOSAGE (If Supplied By Facility): CTDIvol = ( 16.78 ) mGy, DLP = ( 1203.69 ) mGycm TECHNIQUE: Transaxial images were obtained from the dome of the diaphragm to the symphysis pubis with oral contrast. Oral and amp;amp; IV Gastrografin and amp;amp; 100mL Isovue-370 was administered. Sagittal and coronal images were reconstructed. Individualized dose optimization techniques were used for this CT. COMPARISON: Comparison is made with prior study dated 09/12/2022. FINDINGS: Stable mild increased markings at the lung bases suggestive of scarring. Pacemaker lead is seen in the right ventricle. Coronary artery calcification. There is decreased attenuation of the liver consistent with steatosis. There are surgical clips in the gallbladder fossa consistent with a prior cholecystectomy. Normal spleen. Normal pancreas. Normal bilateral adrenal glands. Normal right kidney. Normal left kidney. There is a small hiatal hernia. Normal small intestine. Large amount of fecal material is seen in the right hemicolon. The left descending colon and sigmoid colon is small in caliber. A transition point in the region of the splenic flexure should be ruled out. Air is seen within the rectum. The appendix is visualized and appears normal. There is diffuse atherosclerotic calcification of the abdominal aorta, without a demonstrated aneurysm. Normal inferior vena cava. Normal retroperitoneum. Normal urinary bladder. There is absence of the uterus consistent with a prior hysterectomy. Normal abdominal wall. Grade 2 anterolisthesis of L4 on L5. Disc space narrowing and disc degeneration at the L4-L5 and L5-S1 levels. CT/Abdomen/Pelvis WITH Contrast IMPRESSION: Large amount of fecal material is seen in the right hemicolon. There appears to be a transition point in the region of the splenic flexure where the descending colon and sigmoid colon are nondistended. Clinical correlation is recommended. Electronically Signed: Theo Perez MD at 11:38 EST ,
--- NOTE | 2022-09-18 09:28 | EDS_ITS ---
HPI HPI - GI History of Present Illness Chief Complaint: Back Narrative Narrative: 9-year-old female presenting with diffuse abdominal pain. She states she has a history of appendectomy, cholecystectomy, . She recently had a partial small bowel obstruction and was admitted to the hospital. She also reports recent history of UTI. Patient states that while she was in the hospital she was receiving soapsuds enemas and was able to have bowel movements. Since she has been home she has been taking lactulose, MiraLAX, stool softeners and has not been able to have a bowel movement. She reports that her pain is increasing. She describes it as diffuse. She has been able to hold down some soups and some fluids but started vomiting. She is concerned she has an obstruction. No fevers. [facility] Medical History Asthma Carotid stenosis, bilateral Chronic pain Depression Diabetes GERD (gastroesophageal reflux disease) HLD (hyperlipidemia) HTN (hypertension) Non-smoker Pacemaker Pancreatitis Sleep apnea TIA (transient ischemic attack) Home Medications ezetimibe 10 mg tablet (Zetia) 10 mg PO DAILY . 05/31/19 [History Last Taken 09/17/22] D-Mannrose 1,000 mg PO BID UTI 08/03/22 [History Last Taken 09/17/22] ascorbate calcium (vitamin C) 500 mg tablet 500 mg PO DAILY SUPPLEMENT 08/03/22 [History Last Taken 09/17/22] probiotic 1 tab PO DAILY SUPPLEMENT 08/03/22 [History Last Taken 09/17/22] esomeprazole magnesium 40 mg capsule,delayed release 40 cap PO DAILY . 08/06/22 [History Last Taken 09/17/22] metoprolol succinate 25 mg tablet,extended release 24 hr 25 mg PO QHS BLOOD PRESSURE 08/06/22 [History Last Taken 09/17/22] venlafaxine 150 mg capsule,extended release 24 hr 150 cap PO DAILY DEPRESSION 08/06/22 [History Last Taken 09/17/22] cholecalciferol (vitamin D3) 50 mcg (2,000 unit) capsule (Vitamin D3) 2,000 unit PO DAILY SUPPLEMENT 08/31/22 [History Last Taken 09/17/22] estradiol 0.01% (0.1 mg/gram) vaginal cream 1 applic vaginal MOWEFR HORMONE 08/31/22 [History Last Taken 09/16/22] insulin lispro 100 unit/mL subcutaneous pen (Humalog KwikPen (U-100) Insulin) 22 unit subcut TIDAC Check with primary doctor 09/12/22 [History Last Taken 09/17/22] nitrofurantoin monohydrate/macrocrystals 100 mg capsule 100 mg PO BID UTI 09/13/22 [History Last Taken 09/17/22] insulin glargine-yfgn 100 unit/mL (3 mL) subcutaneous pen 40 unit subcut DAILY DM 09/18/22 [History Last Taken 09/18/22] trimethoprim 100 mg tablet 100 mg PO DAILY UTI 09/18/22 [History Last Taken Unknown] Allergy/AdvReac Type Severity Reaction Status Date / Time morphine Allergy Mild Rash Verified 09/18/22 08:39 Penicillins Allergy Mild Rash Verified 09/18/22 08:39 Sulfa (Sulfonamide Allergy Mild Rash Verified 09/18/22 08:39 Antibiotics) Family History Mother Hypertension Father Asthma Depression Diabetes High cholesterol Hypertension Other Arthritis Autoimmune disorder Breast cancer Cancer Kidney disease Surgical History H/O section H/O: hysterectomy History of appendectomy History of cholecystectomy Hx laparoscopic cholecystectomy Social History household members: none Smoking Status: Never smoker alcohol intake: never substance use type: does not use what type of physical activity do you participate in: none ROS ROS ED Constitutional Constitutional ED: Denies chills, fever(s) or sweats Eyes Eyes: Denies blurry vision or change in vision ENT ENT ED: Denies ear pain or sore throat Cardiovascular Cardiovascular: Denies chest pain, palpitations or racing heartbeat Respiratory/Chest Respiratory/Chest: Denies cough, dyspnea or sputum Gastrointestinal Gastrointestinal: Reports abdominal pain, constipation, nausea and vomiting; Denies diarrhea Genitourinary Genitourinary ED: Denies dysuria, hematuria or urinary frequency Musculoskeletal Musculoskeletal: Denies arthralgias, myalgias or neck pain Integumentary Denies abscess, Abrasions or rash Neurologic Neurologic: Denies headache(s), paresthesias or weakness Psychiatric Psychiatric: Denies anxiety, depression, suicidal ideation or suicidal thoughts Endocrine Endocrinology: Denies polydipsia or polyuria EXAM Physical Exam Const Vital Signs: 09/18/22 08:39 09/18/22 12:50 09/18/22 12:51 Temperature 96.8 F L 98 F Temperature Source Temporal Temporal Pulse Rate 81 87 87 Respiratory Rate 17 14 14 Blood Pressure 124/74 H 149/92 H 149/92 H Blood Pressure Mean 90 111 111 Pulse Ox 100 98 98 Oxygen Delivery Method Room Air Room Air Room Air Positive well nourished General Appearance ED: NAD; Negative for pallor HEENT Reports moist mucous membranes atraumatic Eyes PERRL and EOMs intact bilaterally General Eye ED: Negative for pale conjunctiva or scleral icterus Neck no lymphadenopathy Resp normal respiratory effort and clear to auscultation bilaterally Effort and Inspection: respiratory distress Auscultation: Negative for rales, rhonchi or wheezes Cardio regular rate and regular rhythm GI GI Narrative: Diffusely tender to palpation. Back/Spine no CVA tenderness Extremity full ROM General Extremety ED: Negative for edema or tenderness General Extremity: Negative for edema Neuro CN's II-XII intact bilaterally, moves all extremities and no sensory deficits noted Sensorium / Orientation: alert Psych mental status grossly normal and thought process normal Skin General Skin Exam: Negative for jaundice or pallor MDM MDM MDM Narrative Medical decision making narrative: Patient presenting with diffuse abdominal pain and constipation. She has a recent history of partial small bowel obstruction. She states he was able to pass stool while she was in the hospital with enemas but is no longer able to have bowel movements for the last few days. Patient states that she has been using MiraLAX, Dulcolax, lactulose without relief. She has not tried an enema. She did call Dr. Tipton as she was post to follow-up with him and she was referred to the emergency room. Patient with previous urinalysis showing UTI we will obtain a UA to make sure this is resolving. Patient placed had a white blood cell count of 14.8 and I will get another CBC with differential to compare. Liver function and electrolytes to rule out renal or hepatic issues. Patient was medicated with Toradol and Zofran, after discussing with her that narcotics might worsen the problem if it shows constipation patient was amenable to this. CT of the abdomen pelvis with p.o. and IV contrast will be obtained. Blood work shows improvement in white blood cell count down to 13. Hemoglobin hematocrit are stable her platelets are normal. Renal function is actually improved as well. Electrolytes are normal. LFTs unremarkable. CT of the abdomen pelvis shows concern for partial small bowel obstruction. I spoke with Dr. Steele who recommended NG tube placement. This was attempted twice. On KUB on my interpretation both attempts show the tip of the NG tube not in place. Nursing staff reports to me that they are unable to get this into place. I did discuss with Dr. Steele and made her aware. Impression: 1. Partial small bowel obstruction 2. Abdominal pain With 3 history of urinary tract infection Lab Data Labs: Laboratory Results - last 24 hr 09/18/22 09/18/22 09/18/22 08:53 08:53 09:40 WBC 13.0 H RBC 4.52 Hgb 12.5 Hct 39.2 MCV 86.7 MCH 27.7 MCHC 31.9 L RDW Std Deviation 44.6 H RDW Coeff of Yonathan 14.0 Plt Count 462 H MPV 9.5 Immature Gran % (Auto) 1.000 H Neut % (Auto) 71.3 H Lymph % (Auto) 16.2 L [place] % (Auto) 7.9 Eos % (Auto) 3.0 Baso % (Auto) 0.6 Absolute Neuts (auto) 9.3 H Absolute Lymphs (auto) 2.10 Nucleated RBC % 0 Sodium 137 Potassium 4.5 Chloride 105 Carbon Dioxide 25.0 Anion Gap 7 BUN 16 Creatinine 1.17 H Estim Creat Clear Calc 41.88 Est GFR (MDRD) Af Amer 59 L Est GFR (MDRD) Non-Af 49 L BUN/Creatinine Ratio 13.7 Glucose 222 H Calcium 9.7 Total Bilirubin 0.30 AST 12 L ALT 15 Alkaline Phosphatase 129 H Total Protein 8.3 H Albumin 2.9 L Globulin 5.4 H Albumin/Globulin Ratio 0.5 L Lipase 145 Urine Color Yellow Urine Clarity Sl. Cloudy Urine pH 7.0 Ur Specific [place] 1.010 Urine Protein 15 H Urine Glucose (UA) Normal Urine Ketones Negative Urine Occult Blood Negative Urine Nitrite Negative Urine Bilirubin Negative Urine Urobilinogen Normal Ur Leukocyte Esterase 500 H Urine RBC 0 SEEN Urine WBC 25-50 SEEN Ur Squamous Epith Cells 0-5 SEEN Urine Bacteria 0 SEEN Urine Mucus 0 SEEN Radiography Diagnostic Testing: Clinical Impression(s) from Imaging Studies Abdomen/Pelvis CT 09/18/22 09:27 IMPRESSION: Large amount of fecal material is seen in the right hemicolon. There appears to be a transition point in the region of the splenic flexure where the descending colon and sigmoid colon are nondistended. Clinical correlation is recommended. Electronically Signed: Theo Perez MD at 11:38 EST , KUB X-Ray 09/18/22 12:20 IMPRESSION: The distal tip of the nasogastric tube is in the mid esophagus. Electronically Signed: Theo Perez MD at 13:14 EST , Discharge Plan Triage Chief Complaint: Back ED Provider: Devyn Meyers Dx/Rx/DC Orders Primary Care Provider: Danya Lanier
[2022-09-18 09:40] LABS: Absolute Neutrophil Count 9.3 X10^3/uL (2.0-7.7); Basophil# 0.08 X10^3/uL; Basophil% 0.6 % (0-1); Eosinophil# 0.39 X10^3/uL; Hematocrit 39.2 % (37-47); Hemoglobin 12.5 g/dL (12.0-15.0); Lymphocyte % 16.2 % (19-41); Mean Corp Hgb Conc 31.9 g/dL (32-36); Mean Corpuscular Hgb 27.7 pg (27.0-32.0); Mean Corpuscular Volume 86.7 fL (81-99); Mean Platelet Vol. 9.5 fl (6.2-12.0); Monocyte# 1.03 X10^3/uL; Monocyte% 7.9 % (0-10); NRBC Flagged by Analyzer 0 % (0-5); Neutrophil # 9.27 X10^3/uL (2.7-7.7); Neutrophil % 71.3 % (47-70); Platelet Count 462 K/mm3 (150-450); RBC Distribution Width SD 44.6 fl (35.1-43.9); Red Blood Count 4.52 M/mm3 (4.2-5.4)
[2022-09-18 09:49] LABS: Bacteria 0 SEEN /hpf (None Seen); Mucous, Urine 0 SEEN /hpf (<or=2+); Red Blood Cells-Urine 0 SEEN /hpf (0-5)
[2022-09-18 09:51] LABS: Color, Urine Yellow (Yellow); Glucose, Dipstick Normal (Normal); Ketone-Dipstick Negative (Negative); Leukocyte Esterase-Dipstick 500 /ul (Negative); Nitrite-Dipstick Negative (Negative); Occult Blood-Urine Negative /ul (Negative); Protein-Dipstick 15 mg/dl (Negative); Urine Bilirubin Dipstick Negative (Negative); Urine Clarity Sl. Cloudy (Clear); Urine Urobilinogen Normal (Normal)
[2022-09-18] MEDS: Ketorolac 15 MG/ML Vial IV (09:52)
[2022-09-18] MEDS: Ondansetron 4 MG/2 ML Vial IV (09:52)
[2022-09-18 09:56] LABS: ALB/GLOB Ratio 0.5 RATIO (0.9-2.4); AST(SGOT) 12 U/L (15-37); Alanine Aminotransfer ALT/SGPT 15 U/L (13-56); Albumin, Serum 2.9 g/dL (3.2-5.0); Alkaline Phosphatase 129 U/L (45-117); Anion Gap 7 (5-15); BUN 16 mg/dL (7-18); BUN/Creat Ratio 13.7 RATIO (10-20); Calcium,Total 9.7 mg/dL (8.5-10.1); Chloride 105 mmol/L (98-107); Creatinine, Serum 1.17 mg/dL (0.55-1.02); EST Glomerular Filtration Rate 49 mL/min (>60); Est Glom Filt Rate - Afr Amer 59 mL/min (>60); Estimated Creatinine Clearance 41.88 ml/min; Globulin 5.4 g/dL (2.2-4.2); Glucose 222 mg/dL (74-106); Lipase 145 U/L (73-393); Potassium 4.5 mmol/L (3.5-5.1); Protein, Total 8.3 g/dL (6.4-8.2); Sodium Level 137 mmol/L (136-145)
[2022-09-18 10:27] LABS: Squamous Epithelial Cells - UA 0-5 SEEN /hpf (5-10); White Blood Cells 25-50 SEEN /hpf (0-5)
--- NOTE | 2022-09-18 12:20 | RAD_ITS ---
STUDY: X-RAY - ABDOMEN/PELVIS REASON FOR EXAM: Female, 72 years old. NG Insertion -- #2 TECHNIQUE: Single AP view of the abdomen / pelvis. COMPARISON: Comparison is made with prior examination done at 12:48 PM. FINDINGS: The distal tip of the nasogastric tube is in the midesophagus. RAD/Abdomen Single View (Portable) IMPRESSION: The distal tip of the nasogastric tube is in the mid esophagus. Electronically Signed: Theo Perez MD at 13:14 EST ,
[2022-09-18] MEDS: Oxymetazoline 0.05% 1 SPRAY SPRAY.BTL 2 SPRAY NASAL (12:49)
[2022-09-18 12:50] VITALS: BP 149/92; PULSE 87; RESP 14; O2SAT 98
[2022-09-18 12:51] VITALS: BP 149/92; PULSE 87; RESP 14; TEMP 36.6; O2SAT 98
--- NOTE | 2022-09-18 12:55 | RAD_ITS ---
STUDY: X-RAY - ABDOMEN/PELVIS REASON FOR EXAM: Female, 72 years old. NG placement #1 TECHNIQUE: Single AP view of the abdomen / pelvis. COMPARISON: None. FINDINGS: Normal visualized lung bases. The tip of the nasogastric tube is coiled in the distal portion of the esophagus. RAD/Abdomen Single View (Portable) IMPRESSION: The tip of nasogastric tube is coiled in the distal portion of the esophagus. Electronically Signed: Theo Perez MD at 13:13 EST ,
--- NOTE | 2022-09-18 13:00 | ED.RN ---
NG UNSUCCESSFUL BY MULTIPLE ATTEMPTS BY 2 RN'S. PROVIDER AWARE.
--- NOTE | 2022-09-18 13:36 | HP.PCM.HOS_ITS ---
HPI - General General Date of Admission: 09/18/22 Date of Service: 09/18/22 Chief Complaint: Back pain, nausea HPI Narrative GINA LEAL, is a 72-year-old female with a history of type 2 diabetes mellitus, bilateral carotid stenosis, CKD stage III unclear subtype, hypertension who presented 09/18/2022 with back pain worsened for several days and nausea and vomiting today. She was recently discharged from the hospital 09/14/2022 when she presented with similar complaints and was treated conservatively. She was given enemas and lactulose and was having bowel movements but since she has gone home she has not had a bowel movement though reports urinating fine. He has had feelings of being bloated as well. Feels most of her discomfort in her lower back. Denies other complaints today aside from slight headache. [facility] Medical History Asthma Carotid stenosis, bilateral Chronic pain Depression Diabetes GERD (gastroesophageal reflux disease) HLD (hyperlipidemia) HTN (hypertension) Non-smoker Pacemaker Pancreatitis Sleep apnea TIA (transient ischemic attack) Home Medications ezetimibe 10 mg tablet (Zetia) 10 mg PO DAILY . 05/31/19 [History Last Taken 09/17/22] D-Mannrose 1,000 mg PO BID UTI 08/03/22 [History Last Taken 09/17/22] ascorbate calcium (vitamin C) 500 mg tablet 500 mg PO DAILY SUPPLEMENT 08/03/22 [History Last Taken 09/17/22] probiotic 1 tab PO DAILY SUPPLEMENT 08/03/22 [History Last Taken 09/17/22] esomeprazole magnesium 40 mg capsule,delayed release 40 cap PO DAILY . 08/06/22 [History Last Taken 09/17/22] metoprolol succinate 25 mg tablet,extended release 24 hr 25 mg PO QHS BLOOD PRESSURE 08/06/22 [History Last Taken 09/17/22] venlafaxine 150 mg capsule,extended release 24 hr 150 cap PO DAILY DEPRESSION 08/06/22 [History Last Taken 09/17/22] cholecalciferol (vitamin D3) 50 mcg (2,000 unit) capsule (Vitamin D3) 2,000 unit PO DAILY SUPPLEMENT 08/31/22 [History Last Taken 09/17/22] estradiol 0.01% (0.1 mg/gram) vaginal cream 1 applic vaginal MOWEFR HORMONE 08/31/22 [History Last Taken 09/16/22] insulin lispro 100 unit/mL subcutaneous pen (Humalog KwikPen (U-100) Insulin) 22 unit subcut TIDAC Check with primary doctor 09/12/22 [History Last Taken 09/17/22] nitrofurantoin monohydrate/macrocrystals 100 mg capsule 100 mg PO BID UTI 09/13/22 [History Last Taken 09/17/22] insulin glargine-yfgn 100 unit/mL (3 mL) subcutaneous pen 40 unit subcut DAILY DM 09/18/22 [History Last Taken 09/18/22] trimethoprim 100 mg tablet 100 mg PO DAILY UTI 09/18/22 [History Last Taken Unknown] Allergy/AdvReac Type Severity Reaction Status Date / Time morphine Allergy Mild Rash Verified 09/18/22 08:39 Penicillins Allergy Mild Rash Verified 09/18/22 08:39 Sulfa (Sulfonamide Allergy Mild Rash Verified 09/18/22 08:39 Antibiotics) Family History Mother Hypertension Father Asthma Depression Diabetes High cholesterol Hypertension Other Arthritis Autoimmune disorder Breast cancer Cancer Kidney disease Surgical History H/O section H/O: hysterectomy History of appendectomy History of cholecystectomy Hx laparoscopic cholecystectomy Social History household members: none Smoking Status: Never smoker alcohol intake: never substance use type: does not use what type of physical activity do you participate in: none ROS Constitutional Constitutional: Denies change in weight, fever(s) or night sweats Eyes Eyes: Denies change in vision ENT HEENT: Reports headache(s); Denies nasal congestion or sore throat Cardiovascular Cardiovascular: Denies chest pain or palpitations Respiratory/Chest Respiratory/Chest: Denies cough or productive cough Gastrointestinal Gastrointestinal: Reports other Details: No bowel movement since 09/14, nausea today with some emesis Genitourinary Genitourinary: Reports other Details: denies changes in urination Musculoskeletal Musculoskeletal: Denies joint pain Neurologic Neurologic: Denies dizziness, focal weakness, numbness or tingling Psychiatric Psychiatric: Denies anxiety Hematologic/Lymphatic Hematologic/Lymphatic: Denies easy bleeding Allergic/Immunologic Allergic/Immunologic: Reports other Details: denies rashes Vital Signs Vital Signs Vital Signs: 09/18/22 08:39 09/18/22 12:50 09/18/22 12:51 Temperature 96.8 F L 98 F Temperature Source Temporal Temporal Pulse Rate 81 87 87 Respiratory Rate 17 14 14 Blood Pressure 124/74 H 149/92 H 149/92 H Blood Pressure Mean 90 111 111 Pulse Ox 100 98 98 Oxygen Delivery Method Room Air Room Air Room Air Weight Weight: 87.543 kg Body Mass Index (BMI) 31.1 Physical Exam Const alert Constitutional Narrative: Oriented, appears somewhat uncomfortable HEENT normocephalic and head/scalp atraumatic Eyes Eyes Narrative: EOM grossly intact, anicteric Neck supple Resp normal respiratory effort and clear to auscultation bilaterally Cardio regular rate and regular rhythm GI GI Narrative: Soft to palpation, no significant tenderness, somewhat bloated, referred pain to her back. No rebound/guarding/rigidity Extremity Extremity Narrative: No edema appreciated Neuro moves all extremities Neuro Narrative: No overt focal deficits appreciated Psych Psych Narrative: Cooperative, tearful at times Results Lab / Micro Data Result Diagrams: 09/18/22 08:53 09/18/22 08:53 Labs: Laboratory Results - last 24 hr 09/18/22 08:53: WBC 13.0 H, RBC 4.52, Hgb 12.5, Hct 39.2, MCV 86.7, MCH 27.7, MCHC 31.9 L, RDW Std Deviation 44.6 H, RDW Coeff of Yonathan 14.0, Plt Count 462 H, MPV 9.5, Immature Gran % (Auto) 1.000 H, Neut % (Auto) 71.3 H, Lymph % (Auto) 16.2 L, [place] % (Auto) 7.9, Eos % (Auto) 3.0, Baso % (Auto) 0.6, Absolute Neuts (auto) 9.3 H, Absolute Lymphs (auto) 2.10, Nucleated RBC % 0 09/18/22 08:53: Sodium 137, Potassium 4.5, Chloride 105, Carbon Dioxide 25.0, Anion Gap 7, BUN 16, Creatinine 1.17 H, Estim Creat Clear Calc 41.88, Est GFR (MDRD) Af Amer 59 L, Est GFR (MDRD) Non-Af 49 L, BUN/Creatinine Ratio 13.7, Glucose 222 H, Calcium 9.7, Total Bilirubin 0.30, AST 12 L, ALT 15, Alkaline Phosphatase 129 H, Total Protein 8.3 H, Albumin 2.9 L, Globulin 5.4 H, [place]/Globulin Ratio 0.5 L, Lipase 145 09/18/22 09:40: Urine Color Yellow, Urine Clarity Sl. Cloudy, Urine pH 7.0, Ur Specific [place] 1.010, Urine Protein 15 H, Urine Glucose (UA) Normal, Urine Ketones Negative, Urine Occult Blood Negative, Urine Nitrite Negative, Urine Bilirubin Negative, Urine Urobilinogen Normal, Ur Leukocyte Esterase 500 H, Urine RBC 0 SEEN, Urine WBC 25-50 SEEN, Ur Squamous Epith Cells 0-5 SEEN, Urine Bacteria 0 SEEN, Urine Mucus 0 SEEN Radiology Impression Abdomen/Pelvis CT 09/18/22 09:27 IMPRESSION: Large amount of fecal material is seen in the right hemicolon. There appears to be a transition point in the region of the splenic flexure where the descending colon and sigmoid colon are nondistended. Clinical correlation is recommended. Electronically Signed: Theo Perez MD at 11:38 EST , KUB X-Ray 09/18/22 12:20 IMPRESSION: The distal tip of the nasogastric tube is in the mid esophagus. Electronically Signed: Theo Perez MD at 13:14 EST , KUB X-Ray 09/18/22 12:55 IMPRESSION: The tip of nasogastric tube is coiled in the distal portion of the esophagus. Electronically Signed: Theo Perez MD at 13:13 EST , Assessment & Plan Assessment/Plan (1) Nausea: PLAN: Plan #Nausea/vomiting Had CT with contrast in the ED which showed a large amount of fecal material in the right hemicolon. There appeared on the scan to be a transition point in the region of the splenic flexure where the descending colon and sigmoid colon were nondistended and clinical correlation advised Passing gas has not had a BM Nausea vomiting NG tube, surgery consult N.p.o. IV fluids Given n.p.o. medication regimen for pain limited as opioids may worsen constipation but will place this cautiously #Type 2 diabetes mellitus Is on long-acting insulin but given n.p.o. we will do glucose checks and sliding scale insulin #CKD stage IIIb Avoid nephrotoxic agents, trend BMP Fluids given npo status #HTN holding home meds given NPO #DVT ppx: SCDs Penny Ellis MD Charges/Coding Visit Charges Inpatient E&M: 50356 Init Hosp L2
[2022-09-18 13:45] VITALS: BMI 30.3
[2022-09-18 14:11] VITALS: BP 153/81
[2022-09-18 16:08] VITALS: BP 126/74; PULSE 84; RESP 16; TEMP 36.6; O2SAT 99
[2022-09-18] MEDS: 0.9% Normal Saline 1,000 ML 75 ML IV (16:33)
[2022-09-18] MEDS: 0.9% Saline Lock 10 ML Syringe IV (16:34)
[2022-09-18] MEDS: Arthritis Pain Compound 60 CLICK TUBE TOPICAL ×2 (16:34→21:05)
--- NOTE | 2022-09-18 17:42 | CON.PCM.SX_ITS ---
Assessment & Plan Assessment/Plan (1) Abnormal CT scan, colon: PLAN: There is concern for narrowing at splenic flexure. This may represent a neoplastic process versus stricture possibly due to ischemia Will contact Dr. Warren in am for consideration of colonoscopy. Soap suds enemas shabbir I have discussed above with patient and her sister. Continue present therapy. HPI Consult Data Date of Consult: 09/18/22 HPI Narrative HPI Narrative: GINA LEAL, is a 72 F who presents with abdominal pain and recently discharged for partial SBO. I was asked by the hospitalist, Dr. Penny Ellis, to evaluate patient in consultation. The patient was discharged on 09/14/2022 and she states that she was concerned that she was developing a bowel obstruction again. She last had a colonoscopy in 2012. She is noted to have large amount of retained stool in large colon with possible narrowing at splenic flexure. She denies blood in her stools. She does note increasing left flank pain for the past 3-4 weeks. She notes no colon cancer in her family. She notes crampy, gassy pain presently She had nausea/emesis this morning. Patient does note a long history of chronic constipation. [facility] Medical History Abnormal CT scan, colon Asthma Carotid stenosis, bilateral Chronic pain Depression Diabetes GERD (gastroesophageal reflux disease) HLD (hyperlipidemia) HTN (hypertension) Non-smoker Pacemaker Pancreatitis Sleep apnea TIA (transient ischemic attack) Home Medications ezetimibe 10 mg tablet (Zetia) 10 mg PO DAILY . 05/31/19 [History Last Taken 09/17/22] D-Mannrose 1,000 mg PO BID UTI 08/03/22 [History Last Taken 09/17/22] ascorbate calcium (vitamin C) 500 mg tablet 500 mg PO DAILY SUPPLEMENT 08/03/22 [History Last Taken 09/17/22] probiotic 1 tab PO DAILY SUPPLEMENT 08/03/22 [History Last Taken 09/17/22] esomeprazole magnesium 40 mg capsule,delayed release 40 cap PO DAILY . 08/06/22 [History Last Taken 09/17/22] metoprolol succinate 25 mg tablet,extended release 24 hr 25 mg PO QHS BLOOD PRESSURE 08/06/22 [History Last Taken 09/17/22] venlafaxine 150 mg capsule,extended release 24 hr 150 cap PO DAILY DEPRESSION 08/06/22 [History Last Taken 09/17/22] cholecalciferol (vitamin D3) 50 mcg (2,000 unit) capsule (Vitamin D3) 2,000 unit PO DAILY SUPPLEMENT 08/31/22 [History Last Taken 09/17/22] estradiol 0.01% (0.1 mg/gram) vaginal cream 1 applic vaginal MOWEFR HORMONE 08/31/22 [History Last Taken 09/16/22] insulin lispro 100 unit/mL subcutaneous pen (Humalog KwikPen (U-100) Insulin) 22 unit subcut TIDAC Check with primary doctor 09/12/22 [History Last Taken 09/17/22] nitrofurantoin monohydrate/macrocrystals 100 mg capsule 100 mg PO BID UTI 09/13/22 [History Last Taken 09/17/22] insulin glargine-yfgn 100 unit/mL (3 mL) subcutaneous pen 40 unit subcut DAILY DM 09/18/22 [History Last Taken 09/18/22] trimethoprim 100 mg tablet 100 mg PO DAILY UTI 09/18/22 [History Last Taken Unknown] Allergy/AdvReac Type Severity Reaction Status Date / Time morphine Allergy Mild Rash Verified 09/18/22 08:39 Penicillins Allergy Mild Rash Verified 09/18/22 08:39 Sulfa (Sulfonamide Allergy Mild Rash Verified 09/18/22 08:39 Antibiotics) Family History Mother Hypertension Father Asthma Depression Diabetes High cholesterol Hypertension Other Arthritis Autoimmune disorder Breast cancer Cancer Kidney disease Surgical History H/O section H/O: hysterectomy History of appendectomy History of cholecystectomy Hx laparoscopic cholecystectomy Social History household members: none Smoking Status: Never smoker alcohol intake: never substance use type: does not use what type of physical activity do you participate in: none ROS Constitutional Constitutional: Reports fatigue; Denies fever(s) Eyes Eyes: Denies loss of vision ENT HEENT: Denies epistaxis Cardiovascular Cardiovascular: Denies chest pain at rest Respiratory/Chest Respiratory/Chest: Denies productive cough or shortness of breath at rest Gastrointestinal Gastrointestinal: Reports systems reviewed and no addt'l complaints, except as documented Genitourinary Genitourinary: Denies hematuria Musculoskeletal Musculoskeletal: Denies abnormal gait Integumentary Integumentary: Denies jaundice Neurologic Neurologic: Denies abnormal gait Endocrine Endocrinology: Denies heat intolerance Hematologic/Lymphatic Hematologic/Lymphatic: Denies easy bleeding Physical Exam Const alert and oriented x3 General Appearance: cooperative HEENT normocephalic Eyes conjunctivae normal Neck supple Resp normal respiratory effort Effort and Inspection: able to speak in complete sentences Cardio Rate: regular rate GI GI Narrative: abdomen is soft and obese mild generalized tenderness but no peritoneal signs Back/Spine Back/Spine Narrative: patient points to back pain - left flank Extremity no calf tenderness Skin no jaundice Medical Records Data Attestation: I reviewed the patient's medical records Lab / Micro Data Attestation: I reviewed the patient's lab results. Result Diagrams: 09/18/22 08:53 09/18/22 08:53 Labs: Laboratory Results - last 24 hr 09/18/22 08:53: WBC 13.0 H, RBC 4.52, Hgb 12.5, Hct 39.2, MCV 86.7, MCH 27.7, MCHC 31.9 L, RDW Std Deviation 44.6 H, RDW Coeff of Yonathan 14.0, Plt Count 462 H, MPV 9.5, Immature Gran % (Auto) 1.000 H, Neut % (Auto) 71.3 H, Lymph % (Auto) 16.2 L, [place] % (Auto) 7.9, Eos % (Auto) 3.0, Baso % (Auto) 0.6, Absolute Neuts (auto) 9.3 H, Absolute Lymphs (auto) 2.10, Nucleated RBC % 0 09/18/22 08:53: Sodium 137, Potassium 4.5, Chloride 105, Carbon Dioxide 25.0, A nion Gap 7, BUN 16, Creatinine 1.17 H, Estim Creat Clear Calc 41.88, Est GFR (MDRD) Af Amer 59 L, Est GFR (MDRD) Non-Af 49 L, BUN/Creatinine Ratio 13.7, Glucose 222 H, Calcium 9.7, Total Bilirubin 0.30, AST 12 L, ALT 15, Alkaline Phosphatase 129 H, Total Protein 8.3 H, Albumin 2.9 L, Globulin 5.4 H, Albumin/Globulin Ratio 0.5 L, Lipase 145 09/18/22 09:40: Urine Color Yellow, Urine Clarity Sl. Cloudy, Urine pH 7.0, Ur Specific [place] 1.010, Urine Protein 15 H, Urine Glucose (UA) Normal, Urine Ketones Negative, Urine Occult Blood Negative, Urine Nitrite Negative, Urine Bilirubin Negative, Urine Urobilinogen Normal, Ur Leukocyte Esterase 500 H, Urine RBC 0 SEEN, Urine WBC 25-50 SEEN, Ur Squamous Epith Cells 0-5 SEEN, Urine Bacteria 0 SEEN, Urine Mucus 0 SEEN Radiology Impression Abdomen/Pelvis CT 09/18/22 09:27 IMPRESSION: Large amount of fecal material is seen in the right hemicolon. There appears to be a transition point in the region of the splenic flexure where the descending colon and sigmoid colon are nondistended. Clinical correlation is recommended. Electronically Signed: Theo Perez MD at 11:38 EST Reading Location ID and State: [id number] / [employer] , Service support , [facility] X-Ray 09/18/22 12:20 IMPRESSION: The distal tip of the nasogastric tube is in the mid esophagus. Electronically Signed: Theo Perez MD at 13:14 EST , [facility] X-Ray 09/18/22 12:55 IMPRESSION: The tip of nasogastric tube is coiled in the distal portion of the esophagus. Electronically Signed: Theo Perez MD at 13:13 EST ,
[2022-09-18 18:25] LABS: Bedside Glucose 111 mg/dL (74-106)
[2022-09-18 19:16] LABS: Bedside Glucose 85 mg/dL (74-106)
[2022-09-18] MEDS: HYDROmorphone 0.5 MG/0.5 ML SYRINGE IV (19:52)
[2022-09-18] MEDS: Dextrose 50%-Water 25 GM/50 ML DISP.SYRIN IV (21:04)
--- NOTE | 2022-09-18 21:04 | NURSING ---
dextrose given for bs 77. Pt c/o not feeling well. She said this is to low for me. MY sugar is never this low.
[2022-09-18 21:05] VITALS: BP 126/64; PULSE 101; RESP 18; TEMP 36.8; O2SAT 100
[2022-09-18 21:20] LABS: Bedside Glucose 77 mg/dL (74-106)
[2022-09-19 03:00] VITALS: BP 134/75; PULSE 71; RESP 18; TEMP 36.4; O2SAT 99
[2022-09-19] MEDS: Dextrose 50%-Water 25 GM/50 ML DISP.SYRIN IV (03:04)
--- NOTE | 2022-09-19 03:06 | NURSING ---
Pt bs 77 this am. Pt request this nurse to check c/o that she feels terrible when it gets this low
[2022-09-19 03:26] LABS: Bedside Glucose 75 mg/dL (74-106)
[2022-09-19] MEDS: HYDROmorphone 0.5 MG/0.5 ML SYRINGE IV ×3 (03:55→22:08)
[2022-09-19] MEDS: 0.9% Normal Saline 1,000 ML 75 ML IV ×2 (03:56→05:41)
[2022-09-19] MEDS: Arthritis Pain Compound 60 CLICK TUBE TOPICAL ×3 (05:42→21:22)
[2022-09-19 06:10] LABS: Bedside Glucose 112 mg/dL (74-106)
[2022-09-19 06:17] LABS: Absolute Neutrophil Count 7.3 X10^3/uL (2.0-7.7); Basophil# 0.06 X10^3/uL; Basophil% 0.5 % (0-1); Eosinophil# 0.31 X10^3/uL; Eosinophils% 2.8 % (0-5); Hematocrit 38.8 % (37-47); Hemoglobin 12.2 g/dL (12.0-15.0); Lymphocyte % 21.7 % (19-41); Mean Corp Hgb Conc 31.4 g/dL (32-36); Mean Corpuscular Hgb 27.5 pg (27.0-32.0); Mean Corpuscular Volume 87.6 fL (81-99); Mean Platelet Vol. 8.9 fl (6.2-12.0); Monocyte# 0.82 X10^3/uL; Monocyte% 7.4 % (0-10); NRBC Flagged by Analyzer 0 % (0-5); Neutrophil # 7.34 X10^3/uL (2.7-7.7); Neutrophil % 66.6 % (47-70); Platelet Count 411 K/mm3 (150-450); RBC Distribution Width CV 14.2 % (11.6-14.6); RBC Distribution Width SD 45.3 fl (35.1-43.9); Red Blood Count 4.43 M/mm3 (4.2-5.4)
[2022-09-19 06:44] LABS: ALB/GLOB Ratio 0.5 RATIO (0.9-2.4); AST(SGOT) 12 U/L (15-37); Alanine Aminotransfer ALT/SGPT 15 U/L (13-56); Albumin, Serum 2.7 g/dL (3.2-5.0); Alkaline Phosphatase 125 U/L (45-117); Anion Gap 8 (5-15); BUN 16 mg/dL (7-18); BUN/Creat Ratio 14.8 RATIO (10-20); Calcium,Total 9.2 mg/dL (8.5-10.1); Chloride 110 mmol/L (98-107); Creatinine, Serum 1.08 mg/dL (0.55-1.02); EST Glomerular Filtration Rate 53 mL/min (>60); Est Glom Filt Rate - Afr Amer 64 mL/min (>60); Estimated Creatinine Clearance 45.37 ml/min; Glucose 107 mg/dL (74-106); Potassium 3.8 mmol/L (3.5-5.1); Protein, Total 7.7 g/dL (6.4-8.2); Sodium Level 143 mmol/L (136-145)
--- NOTE | 2022-09-19 08:25 | PN.HOSP_ITS ---
Subjective Subjective Pain is similar to yesterday however not vomiting and nausea has been better, still passing gas but has not had a bowel movement. NG tube unable to be placed x2 and currently does not have 1 but no significant nausea and lack of vomiting at this time Objective Data Objective Data Vital Signs: Vital Signs Temp Pulse Resp BP Pulse Ox O2 Del Method 97.6 F L 71 18 134/75 H 99 Room Air 09/19/22 03:00 09/19/22 03:00 09/19/22 03:00 09/19/22 03:00 09/19/22 03:00 09/19/22 03:00 Oxygen Delivery Method Room Air Weight: 85.332 kg Body Mass Index (BMI) 30.3 Intake & Output: Intake and Output for Last 24 Hours 09/17/22 09/18/22 09/19/22 23:59 23:59 23:59 Intake Total 985.00 / 985.00 Balance 985.00 / 985.00 Lab / Micro Data Result Diagrams: 09/19/22 05:43 09/19/22 05:43 Labs: Laboratory Results - last 24 hr 09/18/22 08:53: WBC 13.0 H, RBC 4.52, Hgb 12.5, Hct 39.2, MCV 86.7, MCH 27.7, MCHC 31.9 L, RDW Std Deviation 44.6 H, RDW Coeff of Yonathan 14.0, Plt Count 462 H, MPV 9.5, Immature Gran % (Auto) 1.000 H, Neut % (Auto) 71.3 H, Lymph % (Auto) 16.2 L, [place] % (Auto) 7.9, Eos % (Auto) 3.0, Baso % (Auto) 0.6, Absolute Neuts (auto) 9.3 H, Absolute Lymphs (auto) 2.10, Nucleated RBC % 0 09/18/22 08:53: Sodium 137, Potassium 4.5, Chloride 105, Carbon Dioxide 25.0, Anion Gap 7, BUN 16, Creatinine 1.17 H, Estim Creat Clear Calc 41.88, Est GFR (MDRD) Af Amer 59 L, Est GFR (MDRD) Non-Af 49 L, BUN/Creatinine Ratio 13.7, Glucose 222 H, Calcium 9.7, Total Bilirubin 0.30, AST 12 L, ALT 15, Alkaline Phosphatase 129 H, Total Protein 8.3 H, Albumin 2.9 L, Globulin 5.4 H, Albumin/Globulin Ratio 0.5 L, Lipase 145 09/18/22 09:40: Urine Color Yellow, Urine Clarity Sl. Cloudy, Urine pH 7.0, Ur Specific [place] 1.010, Urine Protein 15 H, Urine Glucose (UA) Normal, Urine Ketones Negative, Urine Occult Blood Negative, Urine Nitrite Negative, Urine Bilirubin Negative, Urine Urobilinogen Normal, Ur Leukocyte Esterase 500 H, Urine RBC 0 SEEN, Urine WBC 25-50 SEEN, Ur Squamous Epith Cells 0-5 SEEN, Urine Bacteria 0 SEEN, Urine Mucus 0 SEEN 09/18/22 16:40: POC Glucose 111 H 09/18/22 18:56: POC Glucose 85 09/18/22 21:01: POC Glucose 77 09/19/22 03:00: POC Glucose 75 09/19/22 05:43: WBC 11.0, RBC 4.43, Hgb 12.2, Hct 38.8, MCV 87.6, MCH 27.5, MCHC 31.4 L, RDW Std Deviation 45.3 H, RDW Coeff of Yonathan 14.2, Plt Count 411, MPV 8.9, Immature Gran % (Auto) 1.000 H, Neut % (Auto) 66.6, Lymph % (Auto) 21.7, [place] % (Auto) 7.4, Eos % (Auto) 2.8, Baso % (Auto) 0.5, Absolute Neuts (auto) 7.3, Absolute Lymphs (auto) 2.40, Nucleated RBC % 0 09/19/22 05:43: Sodium 143, Potassium 3.8, Chloride 110 H, Carbon Dioxide 25.0, Anion Gap 8, BUN 16, Creatinine 1.08 H, Estim Creat Clear Calc 45.37, Est GFR (MDRD) Af Amer 64, Est GFR (MDRD) Non-Af 53 L, BUN/Creatinine Ratio 14.8, Glucose 107 H, Calcium 9.2, Total Bilirubin 0.30, AST 12 L, ALT 15, Alkaline Phosphatase 125 H, Total Protein 7.7, Albumin 2.7 L, Globulin 5.0 H, Albumin/Globulin Ratio 0.5 L 09/19/22 05:50: POC Glucose 112 H Radiography Diagnostic Testing: Radiology Impression Abdomen/Pelvis CT 09/18/22 09:27 IMPRESSION: Large amount of fecal material is seen in the right hemicolon. There appears to be a transition point in the region of the splenic flexure where the descending colon and sigmoid colon are nondistended. Clinical correlation is recommended. Electronically Signed: Theo Perez MD at 11:38 EST , [facility] X-Ray 09/18/22 12:20 IMPRESSION: The distal tip of the nasogastric tube is in the mid esophagus. Electronically Signed: Theo Perez MD at 13:14 EST , [facility] X-Ray 09/18/22 12:55 IMPRESSION: The tip of nasogastric tube is coiled in the distal portion of the esophagus. Electronically Signed: Theo Perez MD at 13:13 EST , Physical Exam Const alert Constitutional Narrative: Oriented, no acute distress HEENT normocephalic and head/scalp atraumatic Eyes Eyes Narrative: EOM grossly intact, anicteric Neck supple Resp normal respiratory effort and clear to auscultation bilaterally Cardio regular rate and regular rhythm GI GI Narrative: Soft to palpation, no significant tenderness, somewhat bloated. No rebound/guarding/rigidity Extremity Extremity Narrative: No edema appreciated Neuro moves all extremities Neuro Narrative: No overt focal deficits appreciated Psych Psych Narrative: Cooperative Assessment & Plan Assessment/Plan (1) Nausea: PLAN: Plan #Nausea/vomiting Had CT with contrast in the ED which showed a large amount of fecal material in the right hemicolon. There appeared on the scan to be a transition point in the region of the splenic flexure where the descending colon and sigmoid colon were nondistended and clinical correlation advised Passing gas has not had a BM Nausea vomiting NG tube, surgery consult N.p.o. IV fluids Given n.p.o. medication regimen for pain limited as opioids may worsen constipation but will place this cautiously 09/19: On CT concern for narrowing of the splenic flexure. Could be neoplastic process versus stricture. Surgery following and plans to contact Dr. Warren today for possible colonoscopy. Unsuccessful NG placement x2 but actively vomiting and no significant nausea at this time though still not had a bowel movement #Type 2 diabetes mellitus Is on long-acting insulin but given n.p.o. we will do glucose checks and sliding scale insulin Despite holding long-acting has had some low glucose, will continue to hold long-acting especially as still n.p.o. and will de-escalate sliding scale from medium to low. #CKD stage IIIb Avoid nephrotoxic agents, trend BMP Fluids given npo status #HTN holding home meds given NPO #DVT ppx: SCDs Penny Ellis MD Charges/Coding Visit Charges Inpatient E&M: 72468 Subs Hosp L2
[2022-09-19 09:00] VITALS: BP 150/84; PULSE 86; RESP 16; TEMP 36.8; O2SAT 99
--- NOTE | 2022-09-19 09:38 | PN.SURG_ITS ---
Subjective Subjective patient remains unchanged, she states that her abdominal pain is the same She denies any bowel movements with enemas Objective Data Objective Data Vital Signs: Vital Signs Temp Pulse Resp BP Pulse Ox O2 Del Method 97.6 F L 71 18 134/75 H 99 Room Air 09/19/22 03:00 09/19/22 03:00 09/19/22 03:00 09/19/22 03:00 09/19/22 03:00 09/19/22 03:00 Oxygen Delivery Method Room Air Weight: 85.332 kg Body Mass Index (BMI) 30.3 Intake & Output: Intake and Output for Last 24 Hours 09/17/22 09/18/22 09/19/22 23:59 23:59 23:59 Intake Total 985.00 / 985.00 Balance 985.00 / 985.00 Lab / Micro Data Attestation: I reviewed the patient's lab results. Result Diagrams: 09/19/22 05:43 09/19/22 05:43 Labs: Laboratory Results - last 24 hr 09/18/22 08:53: WBC 13.0 H, RBC 4.52, Hgb 12.5, Hct 39.2, MCV 86.7, MCH 27.7, MCHC 31.9 L, RDW Std Deviation 44.6 H, RDW Coeff of Yonathan 14.0, Plt Count 462 H, MPV 9.5, Immature Gran % (Auto) 1.000 H, Neut % (Auto) 71.3 H, Lymph % (Auto) 16.2 L, [place] % (Auto) 7.9, Eos % (Auto) 3.0, Baso % (Auto) 0.6, Absolute Neuts (auto) 9.3 H, Absolute Lymphs (auto) 2.10, Nucleated RBC % 0 09/18/22 08:53: Sodium 137, Potassium 4.5, Chloride 105, Carbon Dioxide 25.0, Anion Gap 7, BUN 16, Creatinine 1.17 H, Estim Creat Clear Calc 41.88, Est GFR (MDRD) Af Amer 59 L, Est GFR (MDRD) Non-Af 49 L, BUN/Creatinine Ratio 13.7, Glucose 222 H, Calcium 9.7, Total Bilirubin 0.30, AST 12 L, ALT 15, Alkaline Phosphatase 129 H, Total Protein 8.3 H, Albumin 2.9 L, Globulin 5.4 H, Albumin/Globulin Ratio 0.5 L, Lipase 145 09/18/22 09:40: Urine Color Yellow, Urine Clarity Sl. Cloudy, Urine pH 7.0, Ur Specific [place] 1.010, Urine Protein 15 H, Urine Glucose (UA) Normal, Urine Ketones Negative, Urine Occult Blood Negative, Urine Nitrite Negative, Urine Bilirubin Negative, Urine Urobilinogen Normal, Ur Leukocyte Esterase 500 H, Urine RBC 0 SEEN, Urine WBC 25-50 SEEN, Ur Squamous Epith Cells 0-5 SEEN, Urine Bacteria 0 SEEN, Urine Mucus 0 SEEN 09/18/22 16:40: POC Glucose 111 H 09/18/22 18:56: POC Glucose 85 09/18/22 21:01: POC Glucose 77 09/19/22 03:00: POC Glucose 75 09/19/22 05:43: WBC 11.0, RBC 4.43, Hgb 12.2, Hct 38.8, MCV 87.6, MCH 27.5, MCHC 31.4 L, RDW Std Deviation 45.3 H, RDW Coeff of Yonathan 14.2, Plt Count 411, MPV 8.9, Immature Gran % (Auto) 1.000 H, Neut % (Auto) 66.6, Lymph % (Auto) 21.7, [place] % (Auto) 7.4, Eos % (Auto) 2.8, Baso % (Auto) 0.5, Absolute Neuts (auto) 7.3, Absolute Lymphs (auto) 2.40, Nucleated RBC % 0 09/19/22 05:43: Sodium 143, Potassium 3.8, Chloride 110 H, Carbon Dioxide 25.0, Anion Gap 8, BUN 16, Creatinine 1.08 H, Estim Creat Clear Calc 45.37, Est GFR (MDRD) Af Amer 64, Est GFR (MDRD) Non-Af 53 L, BUN/Creatinine Ratio 14.8, Gluco se 107 H, Calcium 9.2, Total Bilirubin 0.30, AST 12 L, ALT 15, Alkaline Phosphatase 125 H, Total Protein 7.7, Albumin 2.7 L, Globulin 5.0 H, Albumin/Globulin Ratio 0.5 L 09/19/22 05:50: POC Glucose 112 H Radiography Diagnostic Testing: Radiology Impression Abdomen/Pelvis CT 01/13/23 09:27 IMPRESSION: Large amount of fecal material is seen in the right hemicolon. There appears to be a transition point in the region of the splenic flexure where the descending colon and sigmoid colon are nondistended. Clinical correlation is recommended. Electronically Signed: Theo Perez MD at 11:38 EST , [facility] X-Ray 09/18/22 12:20 IMPRESSION: The distal tip of the nasogastric tube is in the mid esophagus. Electronically Signed: Theo Perez MD at 13:14 EST , [facility] X-Ray 09/18/22 12:55 IMPRESSION: The tip of nasogastric tube is coiled in the distal portion of the esophagus. Electronically Signed: Theo Perez MD at 13:13 EST , Physical Exam Const alert and oriented x3 General Appearance: cooperative HEENT normocephalic Neck supple Resp normal respiratory effort Effort and Inspection: able to speak in complete sentences GI GI Narrative: abdominal examination - unchanged Assessment & Plan Assessment/Plan (1) Abnormal CT scan, colon: PLAN: possible narrowing at splenic flexure - by clinical and radiological assessment - possible neoplasm versus ischemic stricture? will contact Dr. Warren, will defer to his evaluation for consideration of colonoscopy Discussed with patient and she acknowledges above.
--- NOTE | 2022-09-19 11:09 | EX.PCM.CON.G ---
HPI Consult Data Date of Consult: 09/19/22 HPI Narrative Reason for Consultation: Bowel obstruction HPI Narrative: GINA LEAL, is a 72 y/o F with past medical history of hypertension, hyperlipidemia, cardiac arrhythmia status post permanent pacemaker chronic back pain on chronic opioids, TIA, obstructive sleep apnea, diabetes with chronic idiopathic constipation. She presented back to the ED yesterday with worsening abdominal pain and concern for obstruction. She recently had a partial small bowel obstruction and was admitted to the hospital.? She also reports recent history of UTI.? Patient states that while she was in the hospital she was receiving soapsuds enemas and was able to have bowel movements.? Since she has been home she has been taking lactulose, MiraLAX, stool softeners and has not been able to have a bowel movement.? She reports that her pain is increasing.? She describes it as diffuse.? She has been able to hold down some soups and some fluids but started vomiting.? She is concerned she has an obstruction.? CT scan of the abdomen pelvis shows a narrowing at the level of the splenic flexure. Her last colonoscopy was back in 2012. I was asked to see her by Dr. Steele for possible colonoscopy and evaluation of a colonic blockage. [facility] Medical History Abnormal CT scan, colon Asthma Carotid stenosis, bilateral Chronic pain Depression Diabetes GERD (gastroesophageal reflux disease) HLD (hyperlipidemia) HTN (hypertension) Non-smoker Pacemaker Pancreatitis Sleep apnea TIA (transient ischemic attack) Home Medications ezetimibe 10 mg tablet (Zetia) 10 mg PO DAILY . 05/31/19 [History Last Taken 09/17/22] D-Mannrose 1,000 mg PO BID UTI 08/03/22 [History Last Taken 09/17/22] ascorbate calcium (vitamin C) 500 mg tablet 500 mg PO DAILY SUPPLEMENT 08/03/22 [History Last Taken 09/17/22] probiotic 1 tab PO DAILY SUPPLEMENT 08/03/22 [History Last Taken 09/17/22] esomeprazole magnesium 40 mg capsule,delayed release 40 cap PO DAILY . 08/06/22 [History Last Taken 09/17/22] metoprolol succinate 25 mg tablet,extended release 24 hr 25 mg PO QHS BLOOD PRESSURE 08/06/22 [History Last Taken 09/17/22] venlafaxine 150 mg capsule,extended release 24 hr 150 cap PO DAILY DEPRESSION 08/06/22 [History Last Taken 09/17/22] cholecalciferol (vitamin D3) 50 mcg (2,000 unit) capsule (Vitamin D3) 2,000 unit PO DAILY SUPPLEMENT 08/31/22 [History Last Taken 09/17/22] estradiol 0.01% (0.1 mg/gram) vaginal cream 1 applic vaginal MOWEFR HORMONE 08/31/22 [History Last Taken 09/16/22] insulin lispro 100 unit/mL subcutaneous pen (Humalog KwikPen (U-100) Insulin) 22 unit subcut TIDAC Check with primary doctor 09/12/22 [History Last Taken 09/17/22] nitrofurantoin monohydrate/macrocrystals 100 mg capsule 100 mg PO BID UTI 09/13/22 [History Last Taken 09/17/22] insulin glargine-yfgn 100 unit/mL (3 mL) subcutaneous pen 40 unit subcut DAILY DM 09/18/22 [History Last Taken 09/18/22] trimethoprim 100 mg tablet 100 mg PO DAILY UTI 09/18/22 [History Last Taken Unknown] Allergy/AdvReac Type Severity Reaction Status Date / Time morphine Allergy Mild Rash Verified 09/18/22 08:39 Penicillins Allergy Mild Rash Verified 09/18/22 08:39 Sulfa (Sulfonamide Allergy Mild Rash Verified 09/18/22 08:39 Antibiotics) Family History Mother Hypertension Father Asthma Depression Diabetes High cholesterol Hypertension Other Arthritis Autoimmune disorder Breast cancer Cancer Kidney disease Surgical History H/O section H/O: hysterectomy History of appendectomy History of cholecystectomy Hx laparoscopic cholecystectomy Social History household members: none Smoking Status: Never smoker alcohol intake: never substance use type: does not use what type of physical activity do you participate in: none ROS Constitutional Constitutional: Reports fatigue; Denies fever(s) Eyes Eyes: Denies loss of vision ENT HEENT: Denies epistaxis Cardiovascular Cardiovascular: Denies chest pain at rest Respiratory/Chest Respiratory/Chest: Denies productive cough or shortness of breath at rest Gastrointestinal Gastrointestinal: Reports systems reviewed and no addt'l complaints, except as documented Genitourinary Genitourinary: Denies hematuria Musculoskeletal Musculoskeletal: Denies abnormal gait Integumentary Integumentary: Denies jaundice Neurologic Neurologic: Denies abnormal gait Endocrine Endocrinology: Denies heat intolerance Hematologic/Lymphatic Hematologic/Lymphatic: Denies easy bleeding Physical Exam Const alert Constitutional Narrative: Oriented, no acute distress HEENT normocephalic and head/scalp atraumatic Eyes Eyes Narrative: EOM grossly intact, anicteric Neck supple Resp normal respiratory effort and clear to auscultation bilaterally Cardio regular rate and regular rhythm GI GI Narrative: Soft to palpation, no significant tenderness, somewhat bloated. No rebound/guarding/rigidity Extremity Extremity Narrative: No edema appreciated Neuro moves all extremities Neuro Narrative: No overt focal deficits appreciated Psych Psych Narrative: Cooperative Lab / Micro Data Result Diagrams: 09/19/22 05:43 09/19/22 05:43 Labs: Laboratory Results - last 24 hr 09/18/22 16:40: POC Glucose 111 H 09/18/22 18:56: POC Glucose 85 09/18/22 21:01: POC Glucose 77 09/19/22 03:00: POC Glucose 75 09/19/22 05:43: WBC 11.0, RBC 4.43, Hgb 12.2, Hct 38.8, MCV 87.6, MCH 27.5, MCHC 31.4 L, RDW Std Deviation 45.3 H, RDW Coeff of Yonathan 14.2, Plt Count 411, MPV 8.9, Immature Gran % (Auto) 1.000 H, Neut % (Auto) 66.6, Lymph % (Auto) 21.7, [place] % (Auto) 7.4, Eos % (Auto) 2.8, Baso % (Auto) 0.5, Absolute Neuts (auto) 7.3, Absolute Lymphs (auto) 2.40, Nucleated RBC % 0 09/19/22 05:43: Sodium 143, Potassium 3.8, Chloride 110 H, Carbon Dioxide 25.0, Anion Gap 8, BUN 16, Creatinine 1.08 H, Estim Creat Clear Calc 45.37, Est GFR (MDRD) Af Amer 64, Est GFR (MDRD) Non-Af 53 L, BUN/Creatinine Ratio 14.8, Glucose 107 H, Calcium 9.2, Total Bilirubin 0.30, AST 12 L, ALT 15, Alkaline Phosphatase 125 H, Total Protein 7.7, Albumin 2.7 L, Globulin 5.0 H, Albumin/Globulin Ratio 0.5 L 09/19/22 05:50: POC Glucose 112 H Radiology Impression Abdomen/Pelvis CT 09/18/22 09:27 IMPRESSION: Large amount of fecal material is seen in the right hemicolon. There appears to be a transition point in the region of the splenic flexure where the descending colon and sigmoid colon are nondistended. Clinical correlation is recommended. Electronically Signed: Teho Perez MD at 11:38 EST , KUB X-Ray 09/18/22 12:20 IMPRESSION: The distal tip of the nasogastric tube is in the mid esophagus. Electronically Signed: Theo Perez MD at 13:14 EST , KUB X-Ray 09/18/22 12:55 IMPRESSION: The tip of nasogastric tube is coiled in the distal portion of the esophagus. Electronically Signed: Theo Perez MD at 13:13 EST , Assessment & Plan Assessment/Plan (1) Abnormal CT scan, colon: PLAN: I had a long talk over 45 minutes with the patient and her daughter explaining the possible etiologies of her abdominal pain, bloating and the possibility of a partial blockage in the colon. I do not think she has a total blockage in her colon at this time. I think this was likely brought on secondary to chronic constipation with chronic opioid usage. However it has been 10 years since she has had a colonoscopy and neoplasm is higher on the differential diagnosis along with ischemia. She is not very uncomfortable at this time. I will give her a slow bowel prep and I told her if she starts to get bloated or nauseous to stop drinking and she may need a repeat NG tube. She responded very well to enemas and I am hoping that the Gastrografin that was given to her yesterday for a CAT scan will open up her bowels. Charges/Coding Visit Charges Inpatient E&M: 11472 Init Hosp L3
[2022-09-19 12:05] LABS: Bedside Glucose 84 mg/dL (74-106)
[2022-09-19] MEDS: Bisacodyl 5 MG Tablet 20 MG PO (13:54)
[2022-09-19] MEDS: Ensure Clear 120 ML Liquid PO ×2 (13:55→18:29)
[2022-09-19 15:00] VITALS: BP 137/71; PULSE 98; RESP 18; TEMP 36.7; O2SAT 99
--- NOTE | 2022-09-19 15:10 | CASEMGMT ---
VIKA SINGH Readmission Review: Index: 08/31 thru 09/01 for complicated UTI then 09/12 thru 09/14 for ileus. Readmission 09/18/22 for SBO Pt with continued issues related to ileus/SBO resulting in readmission. Pt is independent at baseline, adherent to attending appointments, taking medications, and self-care. Face to face with pt who denies any concerns since her previous discharge and continues to state she does not have any anticipated dc needs for this admission. Pt declined to participate in PT today. Pt was having BM's during her last stay but these stopped upon returning home. Surgery and GI on c/s this admit and slow bowel prep is being initiated with possible colonoscopy. Will continue to monitor and assist with needs as identified. Sharri Sanchez RN CM
[2022-09-19] MEDS: Polyethylene Glycol 3350 BOWEL PREP PO (16:14)
[2022-09-19] MEDS: Venlafaxine XR 150 MG Capsule PO (18:29)
[2022-09-19 18:40] LABS: Bedside Glucose 331 mg/dL (74-106)
[2022-09-19] MEDS: Insulin Lispro 100 UNIT/ML INSULN.PEN SC ×2 (18:42→21:29)
[2022-09-19 21:11] VITALS: BP 154/80; PULSE 100; RESP 18; TEMP 36.9; O2SAT 96
[2022-09-19 21:22] VITALS: BP 141/82; PULSE 100
[2022-09-19] MEDS: Metoprolol(XL)Succ 25 MG Tablet PO (21:22)
[2022-09-19] MEDS: MELATONIN 3 MG TABLET PO (22:08)
[2022-09-19] MEDS: 0.9% Saline Lock 10 ML Syringe IV (22:09)
[2022-09-19 22:20] LABS: Bedside Glucose 366 mg/dL (74-106)
[2022-09-20 05:19] LABS: Absolute Lymphocyte Count 2.58 X10^3/uL (0.83-4.51); Absolute Neutrophil Count 5.9 X10^3/uL (2.0-7.7); Basophil# 0.06 X10^3/uL; Basophil% 0.6 % (0-1); Hematocrit 36.4 % (37-47); Hemoglobin 11.5 g/dL (12.0-15.0); Lymphocyte # 2.58 X10^3/ul (0.83-4.51); Lymphocyte % 26.1 % (19-41); Mean Corp Hgb Conc 31.6 g/dL (32-36); Mean Corpuscular Hgb 27.5 pg (27.0-32.0); Mean Corpuscular Volume 87.1 fL (81-99); Mean Platelet Vol. 8.7 fl (6.2-12.0); Monocyte# 0.89 X10^3/uL; NRBC Flagged by Analyzer 0 % (0-5); Neutrophil # 5.89 X10^3/uL (2.7-7.7); Neutrophil % 59.5 % (47-70); Platelet Count 350 K/mm3 (150-450); RBC Distribution Width SD 44.5 fl (35.1-43.9); Red Blood Count 4.18 M/mm3 (4.2-5.4); White Blood Count 9.9 K/mm3 (4.4-11.0)
[2022-09-20 05:32] LABS: Anion Gap 9 (5-15); BUN 16 mg/dL (7-18); BUN/Creat Ratio 15.1 RATIO (10-20); Chloride 106 mmol/L (98-107); Creatinine, Serum 1.06 mg/dL (0.55-1.02); EST Glomerular Filtration Rate 54 mL/min (>60); Est Glom Filt Rate - Afr Amer 66 mL/min (>60); Estimated Creatinine Clearance 46.23 ml/min; Glucose 227 mg/dL (74-106); Potassium 3.8 mmol/L (3.5-5.1); Sodium Level 138 mmol/L (136-145)
[2022-09-20 05:43] VITALS: BP 120/63; PULSE 90; RESP 18; TEMP 37; O2SAT 99
[2022-09-20] MEDS: 0.9% Saline Lock 10 ML Syringe IV (05:52)
[2022-09-20] MEDS: HYDROmorphone 0.5 MG/0.5 ML SYRINGE IV (05:52)
[2022-09-20] MEDS: Arthritis Pain Compound 60 CLICK TUBE TOPICAL ×3 (05:56→21:19)
[2022-09-20] MEDS: Insulin Lispro 100 UNIT/ML INSULN.PEN SC ×4 (06:39→21:19)
--- NOTE | 2022-09-20 07:06 | PN.HOSP_ITS ---
Subjective Subjective Has had multiple bowel movements now reports pain is feeling somewhat better. No nausea. Is tolerating clears fairly well Objective Data Objective Data Vital Signs: Vital Signs Temp Pulse Resp BP Pulse Ox O2 Del Method 98.6 F 90 18 120/63 99 Room Air 09/20/22 05:43 09/20/22 05:43 09/20/22 05:43 09/20/22 05:43 09/20/22 05:43 09/20/22 05:43 Oxygen Delivery Method Room Air Weight: 85.332 kg Body Mass Index (BMI) 30.3 Intake & Output: Intake and Output for Last 24 Hours 09/18/22 09/19/22 09/20/22 23:59 23:59 23:59 Intake Total 400 / 400 Balance 400 / 400 Medical Nutrition Assessment Dietitian: Malnutrition Criteria Met Start: 09/19/22 12:36 Freq: Status: Active Protocol: Document 09/19/22 12:38 LO (Rec: 09/19/22 12:38 [id number]) Nutrition Malnutrition Evidence of Malnutrition Exists Yes Evidenced By Suboptimal Energy Intake ( Moderate),Weight Loss (Severe) Clinical Problem Acute Disease or Injury Related Malnutrition Etiology moderate related to altered GI function Signs/Symptoms as evidenced by <75% intake of estimated energy needs for >7 days and 2.5% weight loss in 7 days Status Active Problem Recommendation Dietitian Recommendations/Changes ADAT to Low Fiber when medically able to manage medical conditions. RD will order 120mL Ensure Clear 4x with med pass to provide supplemental energy. Lab / Micro Data Result Diagrams: 09/20/22 04:58 09/20/22 04:58 Labs: Laboratory Results - last 24 hr 09/19/22 11:31: POC Glucose 84 09/19/22 18:21: POC Glucose 331 H 09/19/22 21:29: POC Glucose 366 H 09/20/22 04:58: WBC 9.9, RBC 4.18 L, Hgb 11.5 L, Hct 36.4 L, MCV 87.1, MCH 27.5, MCHC 31.6 L, RDW Std Deviation 44.5 H, RDW Coeff of Yonathan 14.0, Plt Count 350, MPV 8.7, Immature Gran % (Auto) 0.800, Neut % (Auto) 59.5, Lymph % (Auto) 26.1, [place] % (Auto) 9.0, Eos % (Auto) 4.0, Baso % (Auto) 0.6, Absolute Neuts (auto) 5.9, Absolute Lymphs (auto) 2.58, Nucleated RBC % 0 09/20/22 04:58: Sodium 138, Potassium 3.8, Chloride 106, Carbon Dioxide 23.0, Anion Gap 9, BUN 16, Creatinine 1.06 H, Estim Creat Clear Calc 46.23, Est GFR (MDRD) Af Amer 66, Est GFR (MDRD) Non-Af 54 L, BUN/Creatinine Ratio 15.1, Glucose 227 H, Calcium 9.0 Physical Exam Const alert Constitutional Narrative: Oriented, no acute distress HEENT normocephalic and head/scalp atraumatic Eyes Eyes Narrative: EOM grossly intact, anicteric Neck supple Resp normal respiratory effort and clear to auscultation bilaterally Cardio regular rate and regular rhythm GI GI Narrative: Soft to palpation, no significant tenderness. No rebound/guarding/rigidity Extremity Extremity Narrative: No edema appreciated Neuro moves all extremities Neuro Narrative: No overt focal deficits appreciated Psych Psych Narrative: Cooperative Assessment & Plan Assessment/Plan (1) Nausea: PLAN: Plan #Nausea/vomiting 2/2 partial colonic blockage vs chronic constipation, ?colonic stricture Had CT with contrast in the ED which showed a large amount of fecal material in the right hemicolon. There appeared on the scan to be a transition point in the region of the splenic flexure where the descending colon and sigmoid colon were nondistended and clinical correlation advised Passing gas has not had a BM Nausea vomiting NG tube, surgery consult N.p.o. IV fluids Given n.p.o. medication regimen for pain limited as opioids may worsen constipation but will place this cautiously 09/19: On CT concern for narrowing of the splenic flexure. Could be neoplastic process versus stricture. Surgery following and plans to contact Dr. Warren today for possible colonoscopy. Unsuccessful NG placement x2 but actively vomiting and no significant nausea at this time though still not had a bowel movement. Nausea and vomiting improving but still has not had a BM, evaluated by GI, will start slow bowel prep and is on clears with goal of colonoscopy. Possible partial colon blockage however possibly secondary to chronic constipation due to chronic opioid usage 09/20: Having multiple BMs since bowel prep and feeling slightly better. Tolerating clears. NPO at midnight in the event colonoscopy tomorrow. Further dispo after colonoscopy #Type 2 diabetes mellitus Is on long-acting insulin but given n.p.o. we will do glucose checks and sliding scale insulin Despite holding long-acting has had some low glucose, will continue to hold long-acting especially as still n.p.o. and will de-escalate sliding scale from medium to low. 09/20: Now that p.o. intake increasing glucose significantly elevated, will increase sliding scale and start 10 units of long-acting, appears to take 40 at home #CKD stage IIIb Avoid nephrotoxic agents, trend BMP #HTN Resume home meds #DVT ppx: SCDs Penny Ellis MD Charges/Coding Visit Charges Inpatient E&M: 16778 Subs Hosp L2
[2022-09-20] MEDS: Venlafaxine XR 150 MG Capsule PO (09:45)
[2022-09-20] MEDS: Ensure Clear 120 ML Liquid PO ×4 (09:45→21:19)
[2022-09-20] MEDS: Pantoprazole Sodium 40 MG Tablet PO (09:45)
[2022-09-20] MEDS: Ezetimibe 10 MG Tablet PO (09:45)
[2022-09-20 10:01] LABS: Bedside Glucose 224 mg/dL (74-106)
--- NOTE | 2022-09-20 10:35 | PCM.PN.SRG ---
Subjective Subjective patient states that she feels slightly improved She has had multiple bowel movements - which has relieved her pain somewhat Objective Data Objective Data Vital Signs: Vital Signs Temp Pulse Resp BP Pulse Ox O2 Del Method 98.6 F 90 18 120/63 99 Room Air 09/20/22 05:43 09/20/22 05:43 09/20/22 05:43 09/20/22 05:43 09/20/22 05:43 09/20/22 05:43 Oxygen Delivery Method Room Air Weight: 85.332 kg Body Mass Index (BMI) 30.3 Intake & Output: Intake and Output for Last 24 Hours 09/18/22 09/19/22 09/20/22 23:59 23:59 23:59 Intake Total 400 / 400 Balance 400 / 400 Medical Nutrition Assessment Dietitian: Malnutrition Criteria Met Start: 09/19/22 12:36 Freq: Status: Active Protocol: Document 09/19/22 12:38 LO (Rec: 09/19/22 12:38 [id number]) Nutrition Malnutrition Evidence of Malnutrition Exists Yes Evidenced By Suboptimal Energy Intake ( Moderate),Weight Loss (Severe) Clinical Problem Acute Disease or Injury Related Malnutrition Etiology moderate related to altered GI function Signs/Symptoms as evidenced by <75% intake of estimated energy needs for >7 days and 2.5% weight loss in 7 days Status Active Problem Recommendation Dietitian Recommendations/Changes ADAT to Low Fiber when medically able to manage medical conditions. RD will order 120mL Ensure Clear 4x with med pass to provide supplemental energy. Lab / Micro Data Attestation: I reviewed the patient's lab results. Result Diagrams: 09/20/22 04:58 09/20/22 04:58 Labs: Laboratory Results - last 24 hr 09/19/22 11:31: POC Glucose 84 09/19/22 18:21: POC Glucose 331 H 09/19/22 21:29: POC Glucose 366 H 09/20/22 04:58: WBC 9.9, RBC 4.18 L, Hgb 11.5 L, Hct 36.4 L, MCV 87.1, MCH 27.5, MCHC 31.6 L, RDW Std Deviation 44.5 H, RDW Coeff of Yonathan 14.0, Plt Count 350, MPV 8.7, Immature Gran % (Auto) 0.800, Neut % (Auto) 59.5, Lymph % (Auto) 26.1, [place] % (Auto) 9.0, Eos % (Auto) 4.0, Baso % (Auto) 0.6, Absolute Neuts (auto) 5.9, Absolute Lymphs (auto) 2.58, Nucleated RBC % 0 09/20/22 04:58: Sodium 138, Potassium 3.8, Chloride 106, Carbon Dioxide 23.0, Anion Gap 9, BUN 16, Creatinine 1.06 H, Estim Creat Clear Calc 46.23, Est GFR (MDRD) Af Amer 66, Est GFR (MDRD) Non-Af 54 L, BUN/Creatinine Ratio 15.1, Glucose 227 H, Calcium 9.0 09/20/22 06:38: POC Glucose 224 H Physical Exam Const alert and oriented x3 General Appearance: cooperative Neck supple Resp normal respiratory effort Effort and Inspection: able to speak in complete sentences GI GI Narrative: abdominal examination - soft, no peritoneal signs Assessment & Plan Assessment/Plan (1) Abnormal CT scan, colon: PLAN: Bowel obstruction has resolved Awaiting colonoscopic evaluation by Dr. Warren will determine how to proceed after colonoscopy is done continue present therapy
[2022-09-20 11:00] VITALS: BP 136/74; PULSE 77; RESP 18; TEMP 36.8; O2SAT 96
[2022-09-20] MEDS: Insulin Glargine-YFGN 100 UNIT/ML Pen 10 UNIT SC (12:10)
[2022-09-20 12:35] LABS: Bedside Glucose 302 mg/dL (74-106)
[2022-09-20] MEDS: Polyethylene Glycol 3350 17 GM PACKET PO (15:04)
[2022-09-20] MEDS: Acetaminophen 325 MG Tablet 650 MG PO (15:12)
--- NOTE | 2022-09-20 16:25 | PCM.PROGNOTE ---
Subjective Subjective Patient took bowel prep and is having multiple bowel movements. Her abdominal pain does feel a lot better. She denies any nausea, chest pain or shortness of breath. Objective Data Objective Data Vital Signs: Vital Signs Temp Pulse Resp BP Pulse Ox O2 Del Method 98.2 F 77 18 136/74 H 96 Room Air 09/20/22 11:00 09/20/22 11:00 09/20/22 11:00 09/20/22 11:00 09/20/22 11:00 09/20/22 11:00 Oxygen Delivery Method Room Air Weight: 188 lb 2 oz Body Mass Index (BMI) 30.3 Intake & Output: Intake and Output for Last 24 Hours 09/18/22 09/19/22 09/20/22 23:59 23:59 23:59 Intake Total 400 / 400 Balance 400 / 400 Medical Nutrition Assessment Dietitian: Malnutrition Criteria Met Start: 09/19/22 12:36 Freq: Status: Active Protocol: Document 09/19/22 12:38 LO (Rec: 09/19/22 12:38 [id number]) Nutrition Malnutrition Evidence of Malnutrition Exists Yes Evidenced By Suboptimal Energy Intake ( Moderate),Weight Loss (Severe) Clinical Problem Acute Disease or Injury Related Malnutrition Etiology moderate related to altered GI function Signs/Symptoms as evidenced by <75% intake of estimated energy needs for >7 days and 2.5% weight loss in 7 days Status Active Problem Recommendation Dietitian Recommendations/Changes ADAT to Low Fiber when medically able to manage medical conditions. RD will order 120mL Ensure Clear 4x with med pass to provide supplemental energy. Lab / Micro Data Result Diagrams: 09/20/22 04:58 09/20/22 04:58 Labs: Laboratory Results - last 24 hr 09/19/22 18:21: POC Glucose 331 H 09/19/22 21:29: POC Glucose 366 H 09/20/22 04:58: WBC 9.9, RBC 4.18 L, Hgb 11.5 L, Hct 36.4 L, MCV 87.1, MCH 27.5, MCHC 31.6 L, RDW Std Deviation 44.5 H, RDW Coeff of Yonathan 14.0, Plt Count 350, MPV 8.7, Immature Gran % (Auto) 0.800, Neut % (Auto) 59.5, Lymph % (Auto) 26.1, [place] % (Auto) 9.0, Eos % (Auto) 4.0, Baso % (Auto) 0.6, Absolute Neuts (auto) 5.9, Absolute Lymphs (auto) 2.58, Nucleated RBC % 0 09/20/22 04:58: Sodium 138, Potassium 3.8, Chloride 106, Carbon Dioxide 23.0, Anion Gap 9, BUN 16, Creatinine 1.06 H, Estim Creat Clear Calc 46.23, Est GFR (MDRD) Af Amer 66, Est GFR (MDRD) Non-Af 54 L, BUN/Creatinine Ratio 15.1, Glucose 227 H, Calcium 9.0 09/20/22 06:38: POC Glucose 224 H 09/20/22 12:09: POC Glucose 302 H Physical Exam Const alert and oriented x3 General Appearance: cooperative Neck supple Resp normal respiratory effort Effort and Inspection: able to speak in complete sentences GI GI Narrative: abdominal examination - soft, no peritoneal signs Assessment & Plan Assessment/Plan (1) Abnormal CT scan, colon: PLAN: I will repeat the abdominal x-ray today and give her more bowel prep. In an anticipation for colonoscopy tomorrow. Charges/Coding Visit Charges Inpatient E&M: 13266 Subs Hosp L2
[2022-09-20 17:36] LABS: Bedside Glucose 213 mg/dL (74-106)
[2022-09-20 20:42] VITALS: BP 139/75; PULSE 86; RESP 18; TEMP 36.8; O2SAT 98
--- NOTE | 2022-09-20 21:00 | RAD_ITS ---
INDICATION: abd pain EXAMINATION/TECHNIQUE: X-RAY - XR Abdomen 1 View COMPARISON: X-ray, CT 09/18/2022 FINDINGS: Lung bases are clear. There is a non-obstructive bowel gas pattern. There is no organomegaly. No abnormal calcifications. Cholecystectomy clips in the right upper quadrant. Soft tissues and bony structures are unremarkable. RAD/Abdomen Single View (Portable) IMPRESSION: Nonobstructive abdomen. Electronically Signed: Ana María Cool MD at 21:23 EST Reading Location ID and State: [id number] / Tel , Service support ,
[2022-09-20 21:20] VITALS: PULSE 80
[2022-09-20] MEDS: Metoprolol(XL)Succ 25 MG Tablet PO (21:20)
[2022-09-20 21:46] LABS: Bedside Glucose 228 mg/dL (74-106)
[2022-09-21] VITALS (11 sets, daily range): BP systolic 98–154; BP diastolic 59–87; PULSE 77–102; RESP 16–18; TEMP 36.2–37.1; O2SAT 96–100; BMI 30.3
[2022-09-21] MEDS: MELATONIN 3 MG TABLET PO ×2 (01:18→23:04)
[2022-09-21] MEDS: Acetaminophen 325 MG Tablet 650 MG PO ×2 (01:18→10:10)
[2022-09-21] MEDS: Arthritis Pain Compound 60 CLICK TUBE TOPICAL ×3 (05:50→19:38)
--- NOTE | 2022-09-21 05:55 | EKGRS_ITS ---
Test Reason : PRE-OP Blood Pressure : / mmHG Vent. Rate : 082 BPM Atrial Rate : 082 BPM P-R Int : 178 ms QRS Dur : 076 ms QT Int : 380 ms P-R-T Axes : 053 -06 033 degrees QTc Int : 443 ms Normal sinus rhythm Inferior NH, age undetermined, cannot be excluded Confirmed by SUJATHA CAROLINA, DUSTIN ([id number]), design editor KERRIE FOSTER ([id number]) on 09/23/2022 10:11:18 AM Referred By: CONSTANCE Confirmed By:DUSTIN SOLARES MD
[2022-09-21 06:59] LABS: Absolute Lymphocyte Count 2.52 X10^3/uL (0.83-4.51); Absolute Neutrophil Count 5.6 X10^3/uL (2.0-7.7); Basophil# 0.05 X10^3/uL; Basophil% 0.5 % (0-1); Eosinophil# 0.48 X10^3/uL; Eosinophils% 5.1 % (0-5); Hematocrit 37.8 % (37-47); Lymphocyte # 2.52 X10^3/ul (0.83-4.51); Lymphocyte % 26.6 % (19-41); Mean Corp Hgb Conc 31.7 g/dL (32-36); Mean Corpuscular Hgb 27.5 pg (27.0-32.0); Mean Corpuscular Volume 86.5 fL (81-99); Mean Platelet Vol. 9.1 fl (6.2-12.0); Monocyte# 0.76 X10^3/uL; NRBC Flagged by Analyzer 0 % (0-5); Neutrophil # 5.57 X10^3/uL (2.7-7.7); Neutrophil % 58.8 % (47-70); Platelet Count 364 K/mm3 (150-450); RBC Distribution Width CV 13.6 % (11.6-14.6); RBC Distribution Width SD 42.7 fl (35.1-43.9); Red Blood Count 4.37 M/mm3 (4.2-5.4); White Blood Count 9.5 K/mm3 (4.4-11.0)
[2022-09-21 07:06] LABS: Bedside Glucose 236 mg/dL (74-106)
[2022-09-21 07:21] LABS: ALB/GLOB Ratio 0.5 RATIO (0.9-2.4); AST(SGOT) 10 U/L (15-37); Alanine Aminotransfer ALT/SGPT 14 U/L (13-56); Albumin, Serum 2.6 g/dL (3.2-5.0); Alkaline Phosphatase 128 U/L (45-117); Anion Gap 9 (5-15); BUN 13 mg/dL (7-18); BUN/Creat Ratio 11.7 RATIO (10-20); Calcium,Total 9.4 mg/dL (8.5-10.1); Chloride 106 mmol/L (98-107); Creatinine, Serum 1.11 mg/dL (0.55-1.02); EST Glomerular Filtration Rate 52 mL/min (>60); Est Glom Filt Rate - Afr Amer 62 mL/min (>60); Estimated Creatinine Clearance 44.15 ml/min; Globulin 4.9 g/dL (2.2-4.2); Glucose 262 mg/dL (74-106); Potassium 3.9 mmol/L (3.5-5.1); Protein, Total 7.5 g/dL (6.4-8.2); Sodium Level 139 mmol/L (136-145)
--- NOTE | 2022-09-21 07:38 | PN.SURG_ITS ---
Subjective Subjective patient states that pain is unchanged Objective Data Objective Data Vital Signs: Vital Signs Temp Pulse Resp BP Pulse Ox O2 Del Method 98.7 F 78 18 127/87 H 97 Room Air 09/21/22 05:24 09/21/22 05:24 09/21/22 05:24 09/21/22 05:24 09/21/22 05:24 09/21/22 05:24 Oxygen Delivery Method Room Air Weight: 85.332 kg Body Mass Index (BMI) 30.3 Intake & Output: Intake and Output for Last 24 Hours 09/19/22 09/20/22 09/21/22 23:59 23:59 23:59 Intake Total 2384. 400 / 900 500 / 500 Balance 2384. 400 / 900 500 / 500 Medical Nutrition Assessment Dietitian: Malnutrition Criteria Met Start: 09/19/22 12:36 Freq: Status: Active Protocol: Document 09/19/22 12:38 LO (Rec: 09/19/22 12:38 [id number]) Nutrition Malnutrition Evidence of Malnutrition Exists Yes Evidenced By Suboptimal Energy Intake ( Moderate),Weight Loss (Severe) Clinical Problem Acute Disease or Injury Related Malnutrition Etiology moderate related to altered GI function Signs/Symptoms as evidenced by <75% intake of estimated energy needs for >7 days and 2.5% weight loss in 7 days Status Active Problem Recommendation Dietitian Recommendations/Changes ADAT to Low Fiber when medically able to manage medical conditions. RD will order 120mL Ensure Clear 4x with med pass to provide supplemental energy. Lab / Micro Data Attestation: I reviewed the patient's lab results. Result Diagrams: 09/21/22 06:30 09/21/22 06:30 Labs: Laboratory Results - last 24 hr 09/20/22 06:38: POC Glucose 224 H 09/20/22 12:09: POC Glucose 302 H 09/20/22 17:08: POC Glucose 213 H 09/20/22 21:17: POC Glucose 228 H 09/21/22 06:30: WBC 9.5, RBC 4.37, Hgb 12.0, Hct 37.8, MCV 86.5, MCH 27.5, MCHC 31.7 L, RDW Std Deviation 42.7, RDW Coeff of Yonathan 13.6, Plt Count 364, MPV 9.1, Immature Gran % (Auto) 1.000 H, Neut % (Auto) 58.8, Lymph % (Auto) 26.6, [place] % (Auto) 8.0, Eos % (Auto) 5.1 H, Baso % (Auto) 0.5, Absolute Neuts (auto) 5.6, Absolute Lymphs (auto) 2.52, Nucleated RBC % 0 09/21/22 06:30: Sodium 139, Potassium 3.9, Chloride 106, Carbon Dioxide 24.0, Anion Gap 9, BUN 13, Creatinine 1.11 H, Estim Creat Clear Calc 44.15, Est GFR (MDRD) Af Amer 62, Est GFR (MDRD) Non-Af 52 L, BUN/Creatinine Ratio 11.7, Glucose 262 H, Calcium 9.4, Total Bilirubin 0.40, AST 10 L, ALT 14, Alkaline Sindy sphatase 128 H, Total Protein 7.5, Albumin 2.6 L, Globulin 4.9 H, Albumin/Globulin Ratio 0.5 L 09/21/22 06:44: POC Glucose 236 H Radiography Diagnostic Testing: Radiology Impression KUB X-Ray 09/20/22 21:00 IMPRESSION: Nonobstructive abdomen. Electronically Signed: Ana María Cool MD at 21:23 EST Reading Location ID and State: [id number] / Tel , Service support , Physical Exam Const alert and oriented x3 Neck supple Resp normal respiratory effort Effort and Inspection: able to speak in complete sentences GI GI Narrative: abdominal examination is unchanged Assessment & Plan Assessment/Plan (1) Abnormal CT scan, colon: PLAN: pending colonoscopic evaluation by Dr. Warren will determine further evaluation and treatment based upon above.
[2022-09-21 07:44] LABS: Hemoglobin A1c 9.3 % (3.8-5.6)
--- NOTE | 2022-09-21 10:33 | PCM.PN.HOSP ---
Subjective Subjective Do well, no issues overnight Objective Data Objective Data Vital Signs: Vital Signs Temp Pulse Resp BP Pulse Ox O2 Del Method 98.8 F 80 18 129/72 H 96 Room Air 09/21/22 09:57 09/21/22 09:57 09/21/22 09:57 09/21/22 09:57 09/21/22 09:57 09/21/22 05:24 Oxygen Delivery Method Room Air Weight: 188 lb 2 oz Body Mass Index (BMI) 30.3 Intake & Output: Intake and Output for Last 24 Hours 09/20/22 09/21/22 09/22/22 03:59 03:59 03:59 Intake Total 1531.25 / 1531.25 500 / 500 Balance 1531.25 / 1531.25 500 / 500 Medical Nutrition Assessment Dietitian: Malnutrition Criteria Met Start: 09/19/22 12:36 Freq: Status: Active Protocol: Document 09/19/22 12:38 LO (Rec: 09/19/22 12:38 LO [id number]) Nutrition Malnutrition Evidence of Malnutrition Exists Yes Evidenced By Suboptimal Energy Intake ( Moderate),Weight Loss (Severe) Clinical Problem Acute Disease or Injury Related Malnutrition Etiology moderate related to altered GI function Signs/Symptoms as evidenced by <75% intake of estimated energy needs for >7 days and 2.5% weight loss in 7 days Status Active Problem Recommendation Dietitian Recommendations/Changes ADAT to Low Fiber when medically able to manage medical conditions. RD will order 120mL Ensure Clear 4x with med pass to provide supplemental energy. Lab / Micro Data Result Diagrams: 09/21/22 06:30 09/21/22 06:30 Labs: Laboratory Results - last 24 hr 09/20/22 12:09: POC Glucose 302 H 09/20/22 17:08: POC Glucose 213 H 09/20/22 21:17: POC Glucose 228 H 09/21/22 06:30: WBC 9.5, RBC 4.37, Hgb 12.0, Hct 37.8, MCV 86.5, MCH 27.5, MCHC 31.7 L, RDW Std Deviation 42.7, RDW Coeff of Yonathan 13.6, Plt Count 364, MPV 9.1, Immature Gran % (Auto) 1.000 H, Neut % (Auto) 58.8, Lymph % (Auto) 26.6, [place] % (Auto) 8.0, Eos % (Auto) 5.1 H, Baso % (Auto) 0.5, Absolute Neuts (auto) 5.6, Absolute Lymphs (auto) 2.52, Nucleated RBC % 0 09/21/22 06:30: Sodium 139, Potassium 3.9, Chloride 106, Carbon Dioxide 24.0, Anion Gap 9, BUN 13, Creatinine 1.11 H, Estim Creat Clear Calc 44.15, Est GFR (MDRD) Af Amer 62, Est GFR (MDRD) Non-Af 52 L, BUN/Creatinine Ratio 11.7, Glucose 262 H, Calcium 9.4, Total Bilirubin 0.40, AST 10 L, ALT 14, Alkaline Phosphatase 128 H, Total Protein 7.5, Albumin 2.6 L, Globulin 4.9 H, Albumin/Globulin Ratio 0.5 L 09/21/22 06:30: Hemoglobin A1c 9.3 H 09/21/22 06:44: POC Glucose 236 H Radiography Diagnostic Testing: Radiology Impression KUB X-Ray 09/20/22 21:00 IMPRESSION: Nonobstructive abdomen. Electronically Signed: Ana María Cool MD at 21:23 EST Reading Location ID and State: [id number] / Tel , Service support , Physical Exam Narrative General: Alert, Oriented x3, Cooperative, No apparent distress HEENT: Atraumatic, PERRLA, EOMI, Normocephalic Oral: Moist Mucosa Neck: Supple, No JVD Lungs: Clear to auscultation, Normal air movement, No rhonchi, No wheeze, No rales Cardiovascular: Regular rate, Regular Rhythm, Normal S1, Normal S2, No murmurs Abdomen: Soft, Non Tender, Non-Distended, No Hepato-splenomegaly Extremities: No edema, Capillary Refill Less than 3 Seconds Skin: No rashes, No breakdown Musculoskeletal: No Tenderness to Palpation of Joints or Extremities Neurological: Cranial nerves II-XII grossly intact, Motor Exam 5/5 strength throughout, Sensory exam intact to light touch and pain Psych/Mental Status: Normal Affect, Appropriate Assessment & Plan Assessment/Plan (1) Nausea: PLAN: Plan #Nausea/vomiting 2/2 partial colonic blockage vs chronic constipation due to colonic stricture versus mass Had CT with contrast in the ED which showed a large amount of fecal material in the right hemicolon. There appeared on the scan to be a transition point in the region of the splenic flexure where the descending colon and sigmoid colon were nondistended and clinical correlation advised Passing gas has not had a BM Nausea vomiting NG tube, surgery consult N.p.o. IV fluids Given n.p.o. medication regimen for pain limited as opioids may worsen constipation but will place this cautiously 09/19: On CT concern for narrowing of the splenic flexure. Could be neoplastic process versus stricture. Surgery following and plans to contact Dr. Warren today for possible colonoscopy. Unsuccessful NG placement x2 but actively vomiting and no significant nausea at this time though still not had a bowel movement. Nausea and vomiting improving but still has not had a BM, evaluated by GI, will start slow bowel prep and is on clears with goal of colonoscopy. Possible partial colon blockage however possibly secondary to chronic constipation due to chronic opioid usage 09/20: Having multiple BMs since bowel prep and feeling slightly better. Tolerating clears. NPO at midnight in the event colonoscopy tomorrow. Further dispo after colonoscopy 09/21: Awaiting colonoscopy #Type 2 diabetes mellitus Is on long-acting insulin but given n.p.o. we will do glucose checks and sliding scale insulin Despite holding long-acting has had some low glucose, will continue to hold long-acting especially as still n.p.o. and will de-escalate sliding scale from medium to low. 09/20: Now that p.o. intake increasing glucose significantly elevated, will increase sliding scale and start 10 units of long-acting, appears to take 40 at home 09/21: Blood sugars are still elevated we will continue to monitor #CKD stage IIIb Avoid nephrotoxic agents, trend BMP, currently at baseline #HTN Resume home meds #Anxiety/depression ? Stable ? Continue Effexor #DVT ppx: SCDs Charges/Coding Visit Charges Inpatient E&M: 45473 Subs Hosp L2
[2022-09-21] MEDS: Insulin Lispro 100 UNIT/ML INSULN.PEN SC ×3 (12:34→21:18)
[2022-09-21 12:56] LABS: Bedside Glucose 254 mg/dL (74-106)
[2022-09-21] MEDS: Lactated Ringers 1,000 ML 15 ML IV (15:20)
--- NOTE | 2022-09-21 16:45 | COLBX_PTH ---
PATIENT: GINA LEAL LOC: MS2 U#:[id number] AGE/SX: 72/F ROOM: [facility] [place] RE09/18/[address]: Dr. Thee Patton MD : 1950 BED: 1 DIS: 09/22/2022 SPEC #: [id number] RECD: 09/21/22 17:27 STATUS: DEBI CHANDRA #: [id number] SHAKA: 09/21/22 16:[address]: Kayode Warren DEPT: SURGICAL PATHOLOGY RECD BY: Victoria Martino ENTERED: 09/22/22 10:01 SP TYPE: COLON BX OTHR DR: MD Dr. Thee Martins MD Dr. Paige Pierce, MD Dr. Rohini Kalisetti, MD Tissues: A - Sigmoid colon biopsy B - COLON BIOPSY C - Descending colon Procedures: Surgery Specimen Level IV Comments: @ Ordering doctor for SUIV edited from to @ by SATURNINO at 09/22/22 1421 @ Submitting doctor edited from to @ by RGOOD at 09/22/22 1421 HEADER OPERATION: Colonoscopy (MAC) with polypectomy and biopsy PRE-OP DIAGNOSIS: Nausea, vomiting TISSUE SUBMITTED: A ? Sigmoid colon polyp, B ? Splenic flexure biopsy, C ? Descending colon polyp MICROSCOPIC DIAGNOSIS A. Sigmoid colon polyp, biopsy: Fragments of tubular adenoma. B. Colon at splenic flexure, biopsy: Fragments of tubular adenoma. C. Descending colon polyp, biopsy: Fragments of tubular adenoma. AM:joel 09/23/2022 MICROSCOPIC DESCRIPTION Slides are reviewed. GROSS DESCRIPTION A - Received in fixative is one container labeled with the patient's name and designated sigmoid colon polyp. The specimen consists of multiple irregular fragments of light howard soft tissue that in aggregate measure 1 x 0.5 x 0.1 cm. The specimen is totally submitted in one cassette. B - Received in fixative is one container labeled with the patient's name and designated splenic flexure biopsy. The specimen consists of two irregular fragments of light howard soft tissue that in aggregate measure 0.6 x 0.2 x 0.1 cm. The specimen is totally submitted in one cassette. C - Received in fixative is one container labeled with the patient's name and designated descending colon polyp. The specimen consists of multiple irregular fragments of light howard soft tissue mixed with fecal material that in aggregate measure 2.5 x 0.5 x 0.1 cm. The specimen is totally submitted in one cassette. / DAVID:joel 09/22/2022 TC:5 CPT: 69273 x3
--- NOTE | 2022-09-21 17:35 | OP.CCLET_ITS ---
09/21/2022 Danya Lanier Md Re : Colonoscopy procedure for Kristen Mann Dear Yannick This procedure was performed on Wednesday, September 21, 2022. My impressions and recommendations are as follows: Impressions : - Preparation of the colon was fair. - Stool in the cecum. - Three 1 to 2 mm polyps in the descending colon, at the splenic flexure and at the hepatic flexure, removed with a hot snare. Resected and retrieved. - Stool in the recto-sigmoid colon, in the sigmoid colon and in the ascending colon. Recommendations : - [facility]. - Resume previous diet. - Continue present medications. - Await pathology results. - Repeat colonoscopy in 3 years for surveillance. My findings are described in the full procedure note, which is enclosed. If I can be of further assistance, please feel free to contact me at . Sincerely, Kayode Warren, 09/21/2022 5:35:07 PM This report has been signed electronically.
--- NOTE | 2022-09-21 17:35 | OP.COLON_ITS ---
Patient Name: Kristen Mann Procedure Date: 09/21/2022 4:41 PM Date of : 1950 Age: 72 Procedure: Colonoscopy Indications: Abdominal pain in the right lower quadrant, Abdominal pain in the right upper quadrant Providers: Kayode Warren DO Medicines: Monitored Anesthesia Care Patient Profile: This is a 72 year old female. Refer to note in patient chart for documentation of history and physical. Last Colonoscopy: more than 10 years ago. Complications: No immediate complications. Procedure: Pre-Anesthesia Assessment: - Prior to the procedure, a History and Physical was performed, and patient medications and allergies were reviewed. The patient is competent. The risks and benefits of the procedure and the sedation options and risks were discussed with the patient. All questions were answered and informed consent was obtained. Patient identification and proposed procedure were verified by the physician. Mental Status Examination: alert and oriented. Airway Examination: normal oropharyngeal airway and neck mobility. Respiratory Examination: clear to auscultation. CV Examination: normal. ASA Grade Assessment: II - A patient with mild systemic disease. After reviewing the risks and benefits, the patient was deemed in satisfactory condition to undergo the procedure. The anesthesia plan was to use monitored anesthesia care (MAC). Immediately prior to administration of medications, the patient was re-assessed for adequacy to receive sedatives. The heart rate, respiratory rate, oxygen saturations, blood pressure, adequacy of pulmonary ventilation, and response to care were monitored throughout the procedure. The physical status of the patient was re-assessed after the procedure. After I obtained informed consent, the scope was passed under direct vision. Throughout the procedure, the patient's blood pressure, pulse, and oxygen saturations were monitored continuously. The pediatric colonoscope was introduced through the anus and advanced to the cecum, identified by appendiceal orifice and ileocecal valve. The colonoscopy was performed without difficulty. The patient tolerated the procedure well. The quality of the bowel preparation was fair. Scope In: 4:52:48 PM Scope Withdrawal Time 0 hours 11 minutes 20 seconds Scope Out: 5:16:15 PM Total Procedure Duration Time 0 hours 23 minutes 27 seconds Findings: The perianal and digital rectal examinations were normal. A large amount of stool was found in the cecum, interfering with visualization. Three sessile polyps were found in the descending colon, splenic flexure and hepatic flexure. The polyps were 1 to 2 mm in size. These polyps were removed with a hot snare. Resection and retrieval were complete. Verification of patient identification for the specimen was done. Estimated blood loss was minimal. Stool was found in the recto-sigmoid colon, in the sigmoid colon and in the ascending colon, precluding visualization. Impression: - Preparation of the colon was fair. - Stool in the cecum. - Three 1 to 2 mm polyps in the descending colon, at the splenic flexure and at the hepatic flexure, removed with a hot snare. Resected and retrieved. - Stool in the recto-sigmoid colon, in the sigmoid colon and in the ascending colon. Recommendation: - [facility]. - Resume previous diet. - Continue present medications. - Await pathology results. - Repeat colonoscopy in 3 years for surveillance. Procedure Code(s): --- Professional --- 76437, Colonoscopy, flexible; with removal of tumor(s), polyp(s), or other lesion(s) by snare technique CPT copyright 2017 [employer]. All rights reserved. The codes documented in this report are preliminary and upon shipping agent review may be revised to meet current compliance requirements. Kayode Warren DO 09/21/2022 5:35:07 PM This report has been signed electronically. Number of Addenda: 0 Note Initiated On: 09/21/2022 4:41 PM
[2022-09-21 19:20] LABS: Bedside Glucose 199 mg/dL (74-106)
[2022-09-21] MEDS: Metoprolol(XL)Succ 25 MG Tablet PO (21:18)
[2022-09-21] MEDS: Ibuprofen 400 MG Tablet PO (21:21)
[2022-09-21 21:41] LABS: Bedside Glucose 364 mg/dL (74-106)
[2022-09-22 03:00] VITALS: BP 122/74; PULSE 97; RESP 16; TEMP 36.4; O2SAT 99
[2022-09-22 04:08] LABS: Absolute Lymphocyte Count 2.97 X10^3/uL (0.83-4.51); Absolute Neutrophil Count 7.5 X10^3/uL (2.0-7.7); Basophil# 0.06 X10^3/uL; Basophil% 0.5 % (0-1); Eosinophil# 0.45 X10^3/uL; Eosinophils% 3.7 % (0-5); Hematocrit 38.7 % (37-47); Hemoglobin 12.3 g/dL (12.0-15.0); Lymphocyte # 2.97 X10^3/ul (0.83-4.51); Lymphocyte % 24.2 % (19-41); Mean Corp Hgb Conc 31.8 g/dL (32-36); Mean Corpuscular Hgb 27.6 pg (27.0-32.0); Mean Platelet Vol. 9.1 fl (6.2-12.0); Monocyte# 1.09 X10^3/uL; Monocyte% 8.9 % (0-10); NRBC Flagged by Analyzer 0 % (0-5); Neutrophil # 7.53 X10^3/uL (2.7-7.7); Neutrophil % 61.4 % (47-70); Platelet Count 361 K/mm3 (150-450); RBC Distribution Width CV 13.5 % (11.6-14.6); RBC Distribution Width SD 42.7 fl (35.1-43.9); Red Blood Count 4.45 M/mm3 (4.2-5.4); White Blood Count 12.3 K/mm3 (4.4-11.0)
[2022-09-22 04:30] LABS: Anion Gap 11 (5-15); BUN 20 mg/dL (7-18); BUN/Creat Ratio 14.9 RATIO (10-20); Calcium,Total 9.1 mg/dL (8.5-10.1); Chloride 105 mmol/L (98-107); Creatinine, Serum 1.34 mg/dL (0.55-1.02); EST Glomerular Filtration Rate 42 mL/min (>60); Est Glom Filt Rate - Afr Amer 50 mL/min (>60); Estimated Creatinine Clearance 36.57 ml/min; Glucose 312 mg/dL (74-106); Sodium Level 139 mmol/L (136-145)
[2022-09-22] MEDS: Arthritis Pain Compound 60 CLICK TUBE TOPICAL (07:34)
[2022-09-22] MEDS: Ibuprofen 400 MG Tablet PO (07:38)
--- NOTE | 2022-09-22 07:43 | PN.SURG_ITS ---
Subjective Subjective Patient underwent colonoscopy yesterday - no signs of stricture and/or colon cancer she still complains of pain - primarily back Objective Data Objective Data Vital Signs: Vital Signs Temp Pulse Resp BP Pulse Ox O2 Del Method 97.6 F L 97 16 122/74 H 99 Room Air 09/22/22 03:00 09/22/22 03:00 09/22/22 03:00 09/22/22 03:00 09/22/22 03:00 09/22/22 03:00 Oxygen Delivery Method Room Air Weight: 85.332 kg Body Mass Index (BMI) 30.3 Intake & Output: Intake and Output for Last 24 Hours 09/20/22 09/21/22 09/22/22 23:59 23:59 23:59 Intake Total 400 / 900 567.25 / 567.25 Output Total 100 / 100 Balance 400 / 900 567.25 / 567.25 -100 / -100 Medical Nutrition Assessment Dietitian: Malnutrition Criteria Met Start: 09/19/22 1 2:36 Freq: Status: Active Protocol: Document 09/19/22 12:38 LO (Rec: 09/19/22 12:38 [id number]) Nutrition Malnutrition Evidence of Malnutrition Exists Yes Evidenced By Suboptimal Energy Intake ( Moderate),Weight Loss (Severe) Clinical Problem Acute Disease or Injury Related Malnutrition Etiology moderate related to altered GI function Signs/Symptoms as evidenced by <75% intake of estimated energy needs for >7 days and 2.5% weight loss in 7 days Status Active Problem Recommendation Dietitian Recommendations/Changes ADAT to Low Fiber when medically able to manage medical conditions. RD will order 120mL Ensure Clear 4x with med pass to provide supplemental energy. Lab / Micro Data Result Diagrams: 09/22/22 03:54 09/22/22 03:54 Labs: Laboratory Results - last 24 hr 09/21/22 06:30: Hemoglobin A1c 9.3 H 09/21/22 12:32: POC Glucose 254 H 09/21/22 18:56: POC Glucose 199 H 09/21/22 21:18: POC Glucose 364 H 09/22/22 03:54: WBC 12.3 H, RBC 4.45, Hgb 12.3, Hct 38.7, MCV 87.0, MCH 27.6, MCHC 31.8 L, RDW Std Deviation 42.7, RDW Coeff of Yonathan 13.5, Plt Count 361, MPV 9.1, Immature Gran % (Auto) 1.300 H, Neut % (Auto) 61.4, Lymph % (Auto) 24.2, [place] % (Auto) 8.9, Eos % (Auto) 3.7, Baso % (Auto) 0.5, Absolute Neuts (auto) 7.5, Absolute Lymphs (auto) 2.97, Nucleated RBC % 0 09/22/22 03:54: Sodium 139, Potassium 4.0, Chloride 105, Carbon Dioxide 23.0, Anion Gap 11, BUN 20 H, Creatinine 1.34 H, Estim Creat Clear Calc 36.57, Est GFR (MDRD) Af Amer 50 L, Est GFR (MDRD) Non-Af 42 L, BUN/Creatinine Ratio 14.9, Glucose 312 H, Calcium 9.1 Physical Exam Const alert and oriented x3 Neck supple Resp normal respiratory effort Effort and Inspection: able to speak in complete sentences GI GI Narrative: abdomen is soft and benign Assessment & Plan Assessment/Plan (1) Abnormal CT scan, colon: PLAN: at this point - there is no bowel obstruction abnormal findings on CT scan have been resolved with colonoscopy - no point of stricture/etc. I have no surgical options to offer patient - suspect patient has longstanding chronic constipation - functional I will sign off case, please re-consult general surgery if any clinical changes
[2022-09-22] MEDS: Insulin Lispro 100 UNIT/ML INSULN.PEN SC ×2 (07:44→11:23)
[2022-09-22] MEDS: Glucerna Shake 120 ML LIQUID PO (07:49)
--- NOTE | 2022-09-22 08:00 | PCM.PROGNOTE ---
Subjective Subjective Patient did very well during her colonoscopy. She was discovered to have 3 adenomatous polyps that were present throughout the colon. There was no stricture or narrowing that was seen as was noted in the CT scan abdomen pelvis. I told her sister and the patient as she has narcotic bowel syndrome and there was virtually no motility of her colon that was seen during the colonoscopy. Objective Data Objective Data Vital Signs: Vital Signs Temp Pulse Resp BP Pulse Ox O2 Del Method 98.6 F 83 18 132/67 H 98 Room Air 09/22/22 12:18 09/22/22 12:18 09/22/22 12:18 09/22/22 12:18 09/22/22 12:18 09/22/22 12:18 Oxygen Delivery Method Room Air Weight: 188 lb 2 oz Body Mass Index (BMI) 30.3 Intake & Output: Intake and Output for Last 24 Hours 09/20/22 09/21/22 09/22/22 23:59 23:59 23:59 Intake Total 400 / 900 567.25 / 567.25 Output Total 100 / 100 Balance 400 / 900 567.25 / 567.25 -100 / -100 Lab / Micro Data Result Diagrams: 09/22/22 03:54 09/22/22 03:54 Labs: Laboratory Results - last 24 hr 09/21/22 18:56: POC Glucose 199 H 09/21/22 21:18: POC Glucose 364 H 09/22/22 03:54: WBC 12.3 H, RBC 4.45, Hgb 12.3, Hct 38.7, MCV 87.0, MCH 27.6, MCHC 31.8 L, RDW Std Deviation 42.7, RDW Coeff of Yonathan 13.5, Plt Count 361, MPV 9.1, Immature Gran % (Auto) 1.300 H, Neut % (Auto) 61.4, Lymph % (Auto) 24.2, [place] % (Auto) 8.9, Eos % (Auto) 3.7, Baso % (Auto) 0.5, Absolute Neuts (auto) 7.5, Absolute Lymphs (auto) 2.97, Nucleated RBC % 0 09/22/22 03:54: Sodium 139, Potassium 4.0, Chloride 105, Carbon Dioxide 23.0, Anion Gap 11, BUN 20 H, Creatinine 1.34 H, Estim Creat Clear Calc 36.57, Est GFR (MDRD) Af Amer 50 L, Est GFR (MDRD) Non-Af 42 L, BUN/Creatinine Ratio 14.9, Glucose 312 H, Calcium 9.1 09/22/22 07:41: POC Glucose 295 H 09/22/22 11:21: POC Glucose 410 H Physical Exam Narrative General: Alert, Oriented x3, Cooperative, No apparent distress HEENT: Atraumatic, PERRLA, EOMI, Normocephalic Oral: Moist Mucosa Neck: Supple, No JVD Lungs: Clear to auscultation, Normal air movement, No rhonchi, No wheeze, No rales Cardiovascular: Regular rate, Regular Rhythm, Normal S1, Normal S2, No murmurs Abdomen: Soft, Non Tender, Non-Distended, No Hepato-splenomegaly Extremities: No edema, Capillary Refill Less than 3 Seconds Skin: No rashes, No breakdown Musculoskeletal: No Tenderness to Palpation of Joints or Extremities Neurological: Cranial nerves II-XII grossly intact, Motor Exam 5/5 strength throughout, Sensory exam intact to light touch and pain Psych/Mental Status: Normal Affect, Appropriate Assessment & Plan Assessment/Plan (1) Nausea: PLAN: Plan #Nausea/vomiting 2/2 partial colonic blockage vs chronic constipation due to colonic stricture versus mass Had CT with contrast in the ED which showed a large amount of fecal material in the right hemicolon. There appeared on the scan to be a transition point in the region of the splenic flexure where the descending colon and sigmoid colon were nondistended and clinical correlation advised Passing gas has not had a BM Nausea vomiting NG tube, surgery consult N.p.o. IV fluids Given n.p.o. medication regimen for pain limited as opioids may worsen constipation but will place this cautiously 09/19: On CT concern for narrowing of the splenic flexure. Could be neoplastic process versus stricture. Surgery following and plans to contact Dr. Warren today for possible colonoscopy. Unsuccessful NG placement x2 but actively vomiting and no significant nausea at this time though still not had a bowel movement. Nausea and vomiting improving but still has not had a BM, evaluated by GI, will start slow bowel prep and is on clears with goal of colonoscopy. Possible partial colon blockage however possibly secondary to chronic constipation due to chronic opioid usage 09/20: Having multiple BMs since bowel prep and feeling slightly better. Tolerating clears. NPO at midnight in the event colonoscopy tomorrow. Further dispo after colonoscopy 09/21: Awaiting colonoscopy #Type 2 diabetes mellitus Is on long-acting insulin but given n.p.o. we will do glucose checks and sliding scale insulin Despite holding long-acting has had some low glucose, will continue to hold long-acting especially as still n.p.o. and will de-escalate sliding scale from medium to low. 09/20: Now that p.o. intake increasing glucose significantly elevated, will increase sliding scale and start 10 units of long-acting, appears to take 40 at home 09/21: Blood sugars are still elevated we will continue to monitor #CKD stage IIIb Avoid nephrotoxic agents, trend BMP, currently at baseline #HTN Resume home meds #Anxiety/depression ? Stable ? Continue Effexor #DVT ppx: SCDs Charges/Coding Visit Charges Inpatient E&M: 02738 Subs Hosp L3
[2022-09-22 08:16] LABS: Bedside Glucose 295 mg/dL (74-106)
[2022-09-22 09:00] VITALS: BP 97/53; PULSE 85; RESP 18; TEMP 37.2; O2SAT 96
--- NOTE | 2022-09-22 10:27 | DCINST_ITS ---
Discharge Instructions Diet Discharge Diet: Low fat / Low cholesterol and Carb Control Diet Activity Discharge Activity: Return to Normal Activity Dressing / Incision Call your doctor if you observe: Fever of 101 or Higher, Shortness of breath, Dizziness, Fainting spells, Swelling in the ankles, Chest pain and Increased palpitations (irregular heartbeat) Follow Up Care Test Results: Test results from this visit will be discussed in further detail at your follow- up appointment, if applicable. Discharge Plan Admission Admit Date/Time: 09/18/22 13:21 Attending Provider: Thee Patton Primary Care Provider: Danya Lanier Consulting Providers: Anaid Steele ; Penny Ellis Discharge Orders/Prescriptions Prescriptions: New Relistor 150 mg tablet 150 mg PO DAILY Qty: 30 0RF Continued ezetimibe [Zetia] 10 mg tablet 10 mg PO DAILY metoprolol succinate 25 mg tablet extended release 24 hr 25 mg PO QHS Label Comments: TAKE 1 TABLET BY MOUTH ONCE DAILY venlafaxine 150 mg capsule,extended release 24hr 150 cap PO DAILY esomeprazole magnesium 40 mg capsule,delayed release(DR/EC) 40 cap PO DAILY probiotic 1 tab PO DAILY ascorbate calcium (vitamin C) 500 mg tablet 500 mg PO DAILY D-Mannrose 1,000 mg PO BID Rx Instructions: 1000mg estradiol 0.01 % (0.1 mg/gram) cream 1 applic VAGINAL MOWEFR Label Comments: INSERT 1 GRAM VAGINALLY 3 TIMES A WEEK BEFORE BED cholecalciferol (vitamin D3) [Vitamin D3] 50 mcg (2,000 unit) capsule 2,000 unit PO DAILY Label Comments: TAKE 1 CAPSULE BY MOUTH ONCE DAILY insulin lispro [Humalog KwikPen Insulin] 100 unit/mL insulin pen 22 unit subcut TIDAC Hold Instructions: Resume on 09/16/22. nitrofurantoin monohyd/m-cryst 100 mg capsule 100 mg PO BID trimethoprim 100 mg tablet 100 mg PO DAILY Label Comments: TAKE 1 TABLET BY MOUTH EVERY DAY AT BEDTIME insulin glargine-yfgn 100 unit/mL (3 mL) insulin pen 40 unit subcut DAILY Referrals / Follow Up: Danya Lanier MD [Primary Care Provider] - Within 1 Week Disposition Disposition (needs filled in before D/C Order can be placed): Home, Self Care
[2022-09-22] MEDS: Venlafaxine XR 150 MG Capsule PO (10:28)
[2022-09-22] MEDS: Insulin Glargine-YFGN 100 UNIT/ML Pen 10 UNIT SC (10:28)
[2022-09-22] MEDS: Pantoprazole Sodium 40 MG Tablet PO (10:28)
[2022-09-22] MEDS: Ezetimibe 10 MG Tablet PO (10:28)
--- NOTE | 2022-09-22 10:51 | CASEMGMT ---
Addendum entered by Deepti Burton 09/22/22 15:36: VIKA SINGH spoke w/pt. She states she is still @ Dr Fuentes's office. She is aware of Relistor not being in-formulary w/her insurance plan and that Dr Fuentes's office will be sending samples of Relistor home w/her today. She was also made aware her Rx insurance informed VIKA SINGH today that her rx's need to be sent to [facility]. She thanked VIKA SINGH for the information and denies having further questions or needs. Addendum entered by Deepti Burton 09/22/22 13:44: VIKA SINGH spoke w/Allegra @ Dr Fuentes's office re: Relistor not being in formulary and on cost. She states they have samples of Relistor they can provide to pt for a week or 2 and will f/u with her re: effectiveness and further treatment. Dr Patton made aware. Addendum entered by Deepti Burton 09/22/22 13:14: Pt being discharged at this time to go to appt @ Dr Fuentes's office @ [id number]. She was provided w/this VIKA SINGH contact information and instructed to call this VIKA SINGH after her appt, to inquire about the Relistor and any further instructions/orders/prescriptions. Addendum entered by Deepti Burton 09/22/22 12:15: Per Hunter @ [facility]'s pharmacy, [facility]'s in no longer contracted w/pt's insurance. VIKA SINGH spoke w/Shakeel, pharmacist @ [facility], and he states [facility] is also not contracted w/pt's insurance. VIKA SINGH placed call to pt's Rx insurance @ [phone] (pt's rx member ID is: [id number]) and was informed Rx's must be sent to [facility]. VIKA SINGH also spoke w/Rupesh in member's services who states Relistor is not in formulary w/pt's insurance and VIKA SINGH transferred to Bryson @ [facility] who verifies Relistor is not in formulary and he states there are not substitutes/alternatives for Relistor in formulary. Call placed back to Hunter @ [facility] pharmacy and he was made aware. He states [id number] cost for Relistor is $746. Dr Patton made aware. Call placed to nurse Latesha @ Dr Fuentes's office. She was made aware pt just discharged from [facility] today and that Dr Warren states pt's constipation is narcotic induced, that Relistor was recommended by Dr Warren, but Relistor is not in-formulary, and of cost. Addendum entered by Deepti Burton 09/22/22 10:56: VIKA SINGH to room. Introduced self and role. Pt made aware of below info re: Relistor. Pt states she has an appt w/Dr Fuentes today @ 1:15 and her sister is on her way to [facility] to pick her up to take her to that appt. Original Note: VIKA SINGH NOTE: Relistor has been e-scribed to [facility]'s pharmacy. VIKA SINGH placed call to Hunter @ [facility] to inquire if PA needed and for miller check. Per Hunter, he is currently working on this Rx and states may take up to an hour for him to have further information. Hunter provided w/this VIKA SINGH contact # for him to call back once it is processed. Sarath STEWART RN, CM
[2022-09-22 12:18] VITALS: BP 132/67; PULSE 83; RESP 18; TEMP 37; O2SAT 98
[2022-09-22 12:20] LABS: Bedside Glucose 410 mg/dL (74-106)
--- NOTE | 2022-09-22 12:36 | DS.PCM_ITS ---
Providers Date of Admission: 09/18/22 Primary Care Physician: Dr. Danya Lanier MD Consultations 09/18/22 15:05 Consult: General Surgery Routine Consulting Provider: Anaid Steele Reason for Consult: n/v, ileus vs sbo EMERGENT Consult: No MD Notified: Yes Date Notified: 09/18/22 Time Notified: 13:49 Method of Notification: ED Physician Initiated Reason For Visit: SBO Diagnosis Discharge Diagnosis (1) Abnormal CT scan, colon: Status: Acute Code(s): R93.3 - Abnormal findings on diagnostic imaging of other parts of digestive tract Plan #Nausea/vomiting 2/2 partial colonic blockage vs chronic constipation due to colonic stricture versus mass Had CT with contrast in the ED which showed a large amount of fecal material in the right hemicolon. There appeared on the scan to be a transition point in the region of the splenic flexure where the descending colon and sigmoid colon were nondistended and clinical correlation advised Passing gas has not had a BM Nausea vomiting NG tube, surgery consult N.p.o. IV fluids Given n.p.o. medication regimen for pain limited as opioids may worsen constipation but will place this cautiously 09/19: On CT concern for narrowing of the splenic flexure. Could be neoplastic process versus stricture. Surgery following and plans to contact Dr. Warren today for possible colonoscopy. Unsuccessful NG placement x2 but actively vomiting and no significant nausea at this time though still not had a bowel movement. Nausea and vomiting improving but still has not had a BM, evaluated by GI, will start slow bowel prep and is on clears with goal of colonoscopy. Possible partial colon blockage however possibly secondary to chronic constipa tion due to chronic opioid usage 09/20: Having multiple BMs since bowel prep and feeling slightly better. Tolerating clears. NPO at midnight in the event colonoscopy tomorrow. Further dispo after colonoscopy 09/21: Awaiting colonoscopy #Type 2 diabetes mellitus Is on long-acting insulin but given n.p.o. we will do glucose checks and sliding scale insulin Despite holding long-acting has had some low glucose, will continue to hold long-acting especially as still n.p.o. and will de-escalate sliding scale from medium to low. 09/20: Now that p.o. intake increasing glucose significantly elevated, will increase sliding scale and start 10 units of long-acting, appears to take 40 at home 09/21: Blood sugars are still elevated we will continue to monitor #CKD stage IIIb Avoid nephrotoxic agents, trend BMP, currently at baseline #HTN Resume home meds #Anxiety/depression ? Stable ? Continue Effexor #DVT ppx: SCDs Medications at Discharge Home Medications ezetimibe 10 mg tablet (Zetia) 10 mg PO DAILY . 05/31/19 D-Mannrose 1,000 mg PO BID UTI 08/03/22 ascorbate calcium (vitamin C) 500 mg tablet 500 mg PO DAILY SUPPLEMENT 08/03/22 probiotic 1 tab PO DAILY SUPPLEMENT 08/03/22 esomeprazole magnesium 40 mg capsule,delayed release 40 cap PO DAILY . 08/06/22 metoprolol succinate 25 mg tablet,extended release 24 hr 25 mg PO QHS BLOOD PRESSURE 08/06/22 venlafaxine 150 mg capsule,extended release 24 hr 150 cap PO DAILY DEPRESSION 08/06/22 cholecalciferol (vitamin D3) 50 mcg (2,000 unit) capsule (Vitamin D3) 2,000 unit PO DAILY SUPPLEMENT 08/31/22 estradiol 0.01% (0.1 mg/gram) vaginal cream 1 applic vaginal MOWEFR HORMONE 08/31/22 insulin lispro 100 unit/mL subcutaneous pen (Humalog KwikPen (U-100) Insulin) 22 unit subcut TIDAC Check with primary doctor 09/12/22 nitrofurantoin monohydrate/macrocrystals 100 mg capsule 100 mg PO BID UTI 09/13/22 insulin glargine-yfgn 100 unit/mL (3 mL) subcutaneous pen 40 unit subcut DAILY DM 09/18/22 trimethoprim 100 mg tablet 100 mg PO DAILY UTI 09/18/22 methylnaltrexone 150 mg tablet (Relistor) 150 mg PO DAILY #30 tabs 09/22/22 Hospital Course Operations None Procedures Colonoscopy Summary of Care Provided Minutes Spent on Discharge: 39 Hospital Course: Per HPI: GINA LEAL, is a 72-year-old female with a history of type 2 diabetes mellitus, bilateral carotid stenosis, CKD stage III unclear subtype, hypertension who presented 09/18/2022 with back pain worsened for several days and nausea and vomiting today.? She was recently discharged from the hospital 09/14/2022 when she presented with similar complaints and was treated conservatively.? She was given enemas and lactulose and was having bowel movements but since she has gone home she has not had a bowel movement though reports urinating fine.? He has had feelings of being bloated as well.? Feels most of her discomfort in her lower back.? Denies other complaints today aside from slight headache. Hospital Course: #Nausea/vomiting 2/2 partial colonic blockage vs chronic constipation due to c olonic stricture versus mass Had CT with contrast in the ED which showed a large amount of fecal material in the right hemicolon.? There appeared on the scan to be a transition point in the region of the splenic flexure where the descending colon and sigmoid colon were nondistended and clinical correlation advised Passing gas has not had a BM Nausea vomiting NG tube, surgery consult N.p.o. IV fluids Given n.p.o. medication regimen for pain limited as opioids may worsen constipation but will place this cautiously 09/19: On CT concern for narrowing of the splenic flexure.? Could be neoplastic process versus stricture.? Surgery following and plans to contact Dr. Warren today for possible colonoscopy.? Unsuccessful NG placement x2 but actively vomiting and no significant nausea at this time though still not had a bowel movement. Nausea and vomiting improving but still has not had a BM, evaluated by GI, will start slow bowel prep and is on clears with goal of colonoscopy.? Possible partial colon blockage however possibly secondary to chronic constipation due to chronic opioid usage 09/20: Having multiple BMs since bowel prep and feeling slightly better. Tolerating clears. NPO at midnight in the event colonoscopy tomorrow. Further dispo after colonoscopy 09/21: Awaiting colonoscopy 09/22: Colonoscopy did not demonstrate splenic flexure stricture but it did show some polyps which were biopsied. I discussed the case with gastroenterology who felt okay with her being urged home with outpatient follow-up. He did recommend potentially starting Relistor secondary to her opiate induced constipation, this will have to be at a dose of 150 mg daily secondary to her creatinine clearance, will run this by pharmacy to check the cost. I discussed with her the possibility for discharge today and she expressed understanding of the risk benefits of going home and would like to go home today if possible. She does do treatments at home for constipation which she says are on occasion partially successful. She will need to follow-up with her PCP to obtain results of the pathology from the polyps. #Type 2 diabetes mellitus Is on long-acting insulin but given n.p.o. we will do glucose checks and sliding scale insulin Despite holding long-acting has had some low glucose, will continue to hold long-acting especially as still n.p.o. and will de-escalate sliding scale from medium to low. 09/20: Now that p.o. intake increasing glucose significantly elevated, will increase sliding scale and start 10 units of long-acting, appears to take 40 at home 09/21: Blood sugars are still elevated we will continue to monitor, can continue her home medications on discharge #CKD stage IIIb Avoid nephrotoxic agents, trend BMP, currently at baseline #HTN Resume home meds #Anxiety/depression/chronic back pain ? Stable ? Continue Effexor ? She is discussing the possibility of getting an injection by her pain management doctor in her back in the next couple of days Physical Exam Narrative General: Alert, Oriented x3, Cooperative, No apparent distress HEENT: Atraumatic, PERRLA, EOMI, Normocephalic Oral: Moist Mucosa Neck: Supple, No JVD Lungs: Clear to auscultation, Normal air movement, No rhonchi, No wheeze, No rales Cardiovascular: Regular rate, Regular Rhythm, Normal S1, Normal S2, No murmurs Abdomen: Soft, Non Tender, Non-Distended, No Hepato-splenomegaly Extremities: No edema, Capillary Refill Less than 3 Seconds Skin: No rashes, No breakdown Musculoskeletal: No Tenderness to Palpation of Joints or Extremities Neurological: Cranial nerves II-XII grossly intact, Motor Exam 5/5 strength throughout, Sensory exam intact to light touch and pain Psych/Mental Status: Normal Affect, Appropriate Medical Records Data Medical Nutrition Assessment Dietitian: Malnutrition Criteria Met Start: 09/19/22 12:36 Freq: Status: Active Protocol: Document 09/19/22 12:38 (Rec: 09/19/22 12:38 [id number]) Nutrition Malnutrition Evidence of Malnutrition Exists Yes Evidenced By Suboptimal Energy Intake ( Moderate),Weight Loss (Severe) Clinical Problem Acute Disease or Injury Related Malnutrition Etiology moderate related to altered GI function Signs/Symptoms as evidenced by <75% intake of estimated energy needs for >7 days and 2.5% weight loss in 7 days Status Active Problem Recommendation Dietitian Recommendations/Changes ADAT to Low Fiber when medically able to manage medical conditions. RD will order 120mL Ensure Clear 4x with med pass to provide supplemental energy. Weight / BMI Weight Weight: 188 lb 2 oz Body Mass Index (BMI) 30.3 ABG / Lab / Microbiology Data Result Diagrams: 09/22/22 03:54 09/22/22 03:54 Laboratory: Laboratory Results - last 24 hr 09/21/22 12:32: POC Glucose 254 H 09/21/22 18:56: POC Glucose 199 H 09/21/22 21:18: POC Glucose 364 H 09/22/22 03:54: WBC 12.3 H, RBC 4.45, Hgb 12.3, Hct 38.7, MCV 87.0, MCH 27.6, MCHC 31.8 L, RDW Std Deviation 42.7, RDW Coeff of Yonathan 13.5, Plt Count 361, MPV 9.1, Immature Gran % (Auto) 1.300 H, Neut % (Auto) 61.4, Lymph % (Auto) 24.2, [place] % (Auto) 8.9, Eos % (Auto) 3.7, Baso % (Auto) 0.5, Absolute Neuts (auto) 7.5, Absolute Lymphs (auto) 2.97, Nucleated RBC % 0 09/22/22 03:54: Sodium 139, Potassium 4.0, Chloride 105, Carbon Dioxide 23.0, Anion Gap 11, BUN 20 H, Creatinine 1.34 H, Estim Creat Clear Calc 36.57, Est GFR (MDRD) Af Amer 50 L, Est GFR (MDRD) Non-Af 42 L, BUN/Creatinine Ratio 14.9, Glucose 312 H, Calcium 9.1 09/22/22 07:41: POC Glucose 295 H 09/22/22 11:21: POC Glucose 410 H D/C Instructions Discharge Diet: Low fat / Low cholesterol and Carb Control Diet Call your doctor if you observe: Fever of 101 or Higher, Shortness of breath, Dizziness, Fainting spells, Swelling in the ankles, Chest pain and Increased palpitations (irregular heartbeat) Meaningful Use Info Meaningful Use Diagnoses (Choose all that apply): None applicable Discharge Plan Admission Admit Date/Time: 09/18/22 13:21 Attending Provider: Thee Patton Primary Care Provider: Danya Lanier Consulting Providers: Anaid Steele ; Penny Ellis Discharge Orders/Prescriptions Prescriptions: New Relistor 150 mg tablet 150 mg PO DAILY Qty: 30 0RF Continued ezetimibe [Zetia] 10 mg tablet 10 mg PO DAILY metoprolol succinate 25 mg tablet extended release 24 hr 25 mg PO QHS Label Comments: TAKE 1 TABLET BY MOUTH ONCE DAILY venlafaxine 150 mg capsule,extended release 24hr 150 cap PO DAILY esomeprazole magnesium 40 mg capsule,delayed release(DR/EC) 40 cap PO DAILY probiotic 1 tab PO DAILY ascorbate calcium (vitamin C) 500 mg tablet 500 mg PO DAILY D-Mannrose 1,000 mg PO BID Rx Instructions: 1000mg estradiol 0.01 % (0.1 mg/gram) cream 1 applic VAGINAL MOWEFR Label Comments: INSERT 1 GRAM VAGINALLY 3 TIMES A WEEK BEFORE BED cholecalciferol (vitamin D3) [Vitamin D3] 50 mcg (2,000 unit) capsule 2,000 unit PO DAILY Label Comments: TAKE 1 CAPSULE BY MOUTH ONCE DAILY insulin lispro [Humalog KwikPen Insulin] 100 unit/mL insulin pen 22 unit subcut TIDAC Hold Instructions: Resume on 09/16/22. nitrofurantoin monohyd/m-cryst 100 mg capsule 100 mg PO BID trimethoprim 100 mg tablet 100 mg PO DAILY Label Comments: TAKE 1 TABLET BY MOUTH EVERY DAY AT BEDTIME insulin glargine-yfgn 100 unit/mL (3 mL) insulin pen 40 unit subcut DAILY Referrals / Follow Up: Danya Lanier MD [Primary Care Provider] - Within 1 Week Disposition Disposition (needs filled in before D/C Order can be placed): Home, Self Care Charges/Coding Visit Charges Inpatient E&M: 57020 Disch Hosp >30min
== END 2022-09-22 13:05 | disposition home or self-care (01) | DRG 392 ==
LOC: ED 09:43 → MS2 13:53
PROVIDERS: Anesthesiology; Internal Medicine Gastroenterology; Admitting Provider Internal Medicine; Emergency Provider Student in an Organized Health Care Education/Training Program; PCP Student in an Organized Health Care Education/Training Program; Visit Provider Family Medicine
PROC: 0DJD8ZZ Inspection of Lower Intestinal Tract, Via Natural or Artificial Opening Endoscopic (ICD-10-PCS; CPT 45378; principal; 2022-09-21 16:40)
DX: K59.03 Drug induced constipation (principal); E44.0 Moderate protein-calorie malnutrition; E11.22 Type 2 diabetes mellitus with diabetic chronic kidney disease; E11.65 Type 2 diabetes mellitus with hyperglycemia; N18.32 Chronic kidney disease, stage 3b; Z79.4 Long term (current) use of insulin; D12.6 Benign neoplasm of colon, unspecified; E78.5 Hyperlipidemia, unspecified; I12.9 Hypertensive chronic kidney disease with stage 1 through stage 4 chronic kidney disease, or unspecified chronic kidney disease; F41.9 Anxiety disorder, unspecified; M54.9 Dorsalgia, unspecified; F32.A Depression, unspecified; G89.29 Other chronic pain; Z86.73 Personal history of transient ischemic attack (TIA), and cerebral infarction without residual deficits; Z68.30 Body mass index [BMI] 30.0-30.9, adult
CPT/HCPCS: 36415; 74018; 74177; 80048; 80053; 81001; 82962; 83036; 83690; 85025; 88305; 93005; 99284; J7030; J7120; Q9967; A4216; J2405

== ENCOUNTER 2022-09-25 17:11 | Emergency (ER) | payer MEDICARE, BC, SELFPAY ==
[2022-09-25 17:12] VITALS: BP 133/93; PULSE 96; RESP 15; TEMP 36.8; O2SAT 97; BMI 30.3
--- NOTE | 2022-09-25 17:43 | CT_ITS ---
STUDY: CT Abdomen And Pelvis W/ Contrast Injection 09/25/2022 7:42 PM REASON FOR EXAM: Female, 72 years old. ABDOMINAL PAIN recent SBO, hasn''t had a BM in over 1 week -- back pain x 1 month, no bm x 4 days, hx ckd, htn, diabetes, ileus, csection, hyster, appy, octaviano TECHNIQUE: Transaxial images were obtained with oral contrast, and with Oral and amp; IV Gastrografin and amp; 100mL Isovue-370 intravenous contrast. Individualized dose optimization techniques were used for this CT. COMPARISON: 09.18.22. FINDINGS: The visualized lung bases are unremarkable. The visualized portions of the heart are within normal limits. Unremarkable liver. There are surgical clips in the gallbladder fossa consistent with a prior cholecystectomy. Unremarkable spleen. Unremarkable pancreas. Unremarkable bilateral adrenal glands. No acute findings of the right kidney. No acute findings of the left kidney. Unremarkable visualized stomach. Unremarkable small intestine. Unremarkable colon. There is non-visualization of the appendix. There are calcifications of the abdominal aorta. This is consistent for atherosclerotic disease. There is no abdominal aortic aneurysm. Unremarkable inferior vena cava. Subcentimeter mesenteric lymph nodes. Unremarkable urinary bladder. There is absence of the uterus consistent with a prior hysterectomy.Since the prior study, there is increased compression deformity of T12. 4.4mm retropulsed fragment into the canal causing moderate spinal stenosis. There is an umbilical hernia containing fat. There are diffuse degenerative changes of the visualized lumbar spine. There is a Grade 1 anterolisthesis of L4 on L5. CT/Abdomen/Pelvis WITH Contrast IMPRESSION: (NOT LISTED IN ORDER OF SIGNIFICANCE) Since the prior study, there is increased compression deformity of T12. 4.4mm retropulsed fragment into the canal causing moderate spinal stenosis. Other findings as above. Electronically Signed: Richard Garrido MD at 19:54 EST ,
--- NOTE | 2022-09-25 18:07 | ED.VIS.BACK ---
HPI <JESSICA Molina - Last Filed: 09/25/22 22:27> History of Present Illness Chief Complaint: Back Narrative Narrative: Patient presents today with a past medical history of insulin-dependent diabetes mellitus, CKD, chronic back pain and bilateral carotid artery stenosis complaining of lower back pain and lower abdominal pain. She states has had this pain intermittently for around the last month and describes it as a sharp and stabbing pain. She states she is also been struggling with constipation for the last several weeks. She states that she has been admitted to the hospital twice this month due to small bowel obstructions. She last was admitted 09/18/22 for this issue and was discharged 09/22/22. She states she has not had a bowel movement since being in the hospital but has been passing gas. She did have a colonoscopy while she was in the hospital and states she was told she just had a few polyps. Patient states that she does take tramadol daily and recently had an unknown injection for her chronic back pain from her pain management doctor. Patient is currently taking Relistor for constipation. <Dr. Toni Westbrook MD - Last Filed: 09/25/22 22:42> Narrative Narrative: Patient presents today with a past medical history of insulin-dependent diabetes mellitus, CKD, chronic back pain and bilateral carotid artery stenosis complaining of lower back pain and lower abdominal pain. She states has had this pain intermittently for around the last month and describes it as a sharp and stabbing pain. She states she is also been struggling with constipation for the last several weeks. She states that she has been admitted to the hospital twice this month due to small bowel obstructions. She last was admitted 09/18/22 for this issue and was discharged 09/22/22. She states she has not had a bowel movement since being in the hospital but has been passing gas. She did have a colonoscopy while she was in the hospital and states she was told she just had a few polyps. Patient states that she does take tramadol daily and recently had an unknown injection for her chronic back pain from her pain management doctor. Patient is currently taking Relistor for constipation. Dariana- I have personally performed a face to face assessment of the patient and have reviewed the YANCY Note. I performed a substantive portion of the visit including all aspects of the following. My villanueva findings include: Patient presents with back pain, on exam she has reproducible paraspinal back pain. She has normal reflexes normal strength sensation no saddle anesthesia and no red flags. She has a soft abdomen without a suprapubic pain or mass she has no urinary retention or bowel or bladder compromise symptoms. After significant amount of discussion [id number] we settled on analgesia initially she was quite reluctant to have any opiate analgesia but at this time we are running out of any other options. She will be discharged to follow-up with pain management [facility] <JESSICA Molina - Last Filed: 09/25/22 22:27> [facility] Medical History Abnormal CT scan, colon Asthma Carotid stenosis, bilateral Chronic pain Constipation Depression Diabetes GERD (gastroesophageal reflux disease) HLD (hyperlipidemia) HTN (hypertension) Ileus Non-smoker Pacemaker Pancreatitis Sleep apnea TIA (transient ischemic attack) UTI (urinary tract infection) Home Medications ezetimibe 10 mg tablet (Zetia) 10 mg PO DAILY . 05/31/19 [History Last Taken 09/17/22] D-Mannrose 1,000 mg PO BID UTI 08/03/22 [History Last Taken 09/17/22] ascorbate calcium (vitamin C) 500 mg tablet 500 mg PO DAILY SUPPLEMENT 08/03/22 [History Last Taken 09/17/22] probiotic 1 tab PO DAILY SUPPLEMENT 08/03/22 [History Last Taken 09/17/22] esomeprazole magnesium 40 mg capsule,delayed release 40 cap PO DAILY . 08/06/22 [History Last Taken 09/17/22] metoprolol succinate 25 mg tablet,extended release 24 hr 25 mg PO QHS BLOOD PRESSURE 08/06/22 [History Last Taken 09/17/22] venlafaxine 150 mg capsule,extended release 24 hr 150 cap PO DAILY DEPRESSION 08/06/22 [History Last Taken 09/17/22] cholecalciferol (vitamin D3) 50 mcg (2,000 unit) capsule (Vitamin D3) 2,000 unit PO DAILY SUPPLEMENT 08/31/22 [History Last Taken 09/17/22] estradiol 0.01% (0.1 mg/gram) vaginal cream 1 applic vaginal MOWEFR HORMONE 08/31/22 [History Last Taken 09/16/22] nitrofurantoin monohydrate/macrocrystals 100 mg capsule 100 mg PO BID UTI 09/13/22 [History Last Taken 09/17/22] insulin glargine-yfgn 100 unit/mL (3 mL) subcutaneous pen 40 unit subcut DAILY DM 09/18/22 [History Last Taken 09/18/22] trimethoprim 100 mg tablet 100 mg PO DAILY UTI 09/18/22 [History Last Taken Unknown] methylnaltrexone 150 mg tablet (Relistor) 150 mg PO DAILY #30 tabs 09/22/22 [Rx Last Taken Unknown] insulin lispro 100 unit/mL subcutaneous pen (Humalog KwikPen (U-100) Insulin) 25 unit (0.25 mL) subcut TIDAC #67.5 mL 09/23/22 [Rx Last Taken Unknown] Allergy/AdvReac Type Severity Reaction Status Date / Time morphine Allergy Mild Rash Verified 09/18/22 08:39 Penicillins Allergy Mild Rash Verified 09/18/22 08:39 Sulfa (Sulfonamide Allergy Mild Rash Verified 09/18/22 08:39 Antibiotics) Family History Mother Hypertension Father Asthma Depression Diabetes High cholesterol Hypertension Other Arthritis Autoimmune disorder Breast cancer Cancer Kidney disease Surgical History H/O section H/O: hysterectomy History of appendectomy History of cholecystectomy Hx laparoscopic cholecystectomy Social History household members: none Smoking Status: Never smoker alcohol intake: never substance use type: does not use what type of physical activity do you participate in: none ROS <JESSICA Molina - Last Filed: 09/25/22 22:27> ROS ED Constitutional Constitutional ED: Denies chills, fever(s) or sweats Eyes Eyes: Denies blurry vision or change in vision ENT ENT ED: Denies rhinorrhea or sore throat Cardiovascular Cardiovascular: Denies chest pain, palpitations or racing heartbeat Respiratory/Chest Respiratory/Chest: Denies dyspnea or dyspnea on exertion Gastrointestinal Gastrointestinal: Reports abdominal pain and constipation; Denies nausea or vomiting Genitourinary Genitourinary ED: Denies dysuria, hematuria or urinary frequency Musculoskeletal Musculoskeletal: Reports back pain; Denies neck pain Integumentary Denies abscess, Abrasions or rash Neurologic Neurologic: Denies headache(s), paresthesias or weakness Psychiatric Psychiatric: Denies anxiety, depression or suicidal ideation EXAM <JESSICA Molina - Last Filed: 09/25/22 22:27> Physical Exam Const Vital Signs: 09/25/22 17:12 09/25/22 20:41 Temperature 98.2 F Temperature Source Temporal Pulse Rate 96 Respiratory Rate 15 Blood Pressure 133/93 H 147/81 H Blood Pressure Mean 106 Pulse Ox 97 Oxygen Delivery Method Room Air Positive well nourished and well developed General Appearance ED: well developed and NAD HEENT Reports moist mucous membranes Eyes PERRL and EOMs intact bilaterally Neck no lymphadenopathy Resp normal respiratory effort and clear to auscultation bilaterally Cardio regular rate, regular rhythm and no murmurs GI soft to palpation, non-distended and no masses GI Narrative: Patient has diffuse lower abdominal tenderness to palpation. Back/Spine normal to inspection Extremity normal to inspection Neuro oriented x3 and no sensory deficits noted Sensorium / Orientation: alert Motor Exam: strength 5/5 throughout Psych mental status grossly normal Skin no rashes or lesions noted and no wounds <Dr. Toni Westbrook MD - Last Filed: 09/25/22 22:42> Physical Exam Const Vital Signs: 09/25/22 17:12 09/25/22 20:41 Temperature 98.2 F Temperature Source Temporal Pulse Rate 96 Respiratory Rate 15 Blood Pressure 133/93 H 147/81 H Blood Pressure Mean 106 Pulse Ox 97 Oxygen Delivery Method Room Air MDM <JESSICA Molina - Last Filed: 09/25/22 22:27> [facility] Narrative Medical decision making narrative: Patient presenting today with constipation. She is passing gas daily. I spoke to her daughter independently in the room who states, she is hardly living. She barely walks around because she is in so much pain. The only thing she can do is get up to go to the bathroom. Patient presented to the ED on 08/31 for back pain that wrapped around to the abdomen and and was treated for a UTI and discharged home. She then presented again to the ED on 09/12/2022 for the same pain and was admitted for a partial small bowel obstruction. She was discharged from the hospital on 09/14/2022. She then presented again to the ED on 09/18/2022 for the same abdominal pain and stated she had not had a bowel movement since she was in the hospital last. She again had a small bowel obstruction at that time. She was admitted to the hospital at that time and was discharged on 09/22. Patient did have a colonoscopy during that visit and I have reviewed Dr. 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 Lab work has been obtained as well as a CT scan of the abdomen and pelvis. She has been provided pain control due to having a really difficult time moving around in the bed due to being in so much pain. CT of the pelvis does not show a small bowel obstruction but does show increased compression deformity of T12 as well as spinal stenosis. I believe this is the reason patient's back pain has worsened. These findings have been relayed with patient and I have referred her to a spinal specialist. I do not feel comfortable giving patient any more pain medication because she is already taking tramadol daily and sees her pain management doctor on Wednesday. I also do not want to worsen her constipation. I encourage patient to resume her previous regimen of MiraLAX and Dulcolax as that worked for her in the past and having a bowel movement will also help alleviate her abdominal pain. I encouraged her to increase her fluid intake. I am comfortable with patient discharging home in stable condition and following up with PCP, pain management, and orthopedist. She has been given return instructions. She is comfortable with plan and daughter is comfortable with plan. Lab Data Attestation: I reviewed the patient's lab results. Lab results narrative: WBC 13.3, RBC 5.42, sodium 132, BUN 26, creatinine 1.34, GFR 50, glucose 314, alkaline phosphatase 174. Labs: Laboratory Results - last 24 hr 09/25/22 09/25/22 09/25/22 18:05 18:05 19:00 WBC 13.3 H RBC 5.42 H Hgb 14.9 Hct 47.0 MCV 86.7 MCH 27.5 MCHC 31.7 L RDW Std Deviation 43.3 RDW Coeff of Yonathan 13.7 Plt Count 373 MPV 9.2 Immature Gran % (Auto) 1.400 H Neut % (Auto) 70.2 H Lymph % (Auto) 17.8 L [place] % (Auto) 8.3 Eos % (Auto) 1.5 Baso % (Auto) 0.8 Absolute Neuts (auto) 9.3 H Absolute Lymphs (auto) 2.36 Nucleated RBC % 0 Sodium 132 L Potassium 3.8 Chloride 100 Carbon Dioxide 22.0 Anion Gap 10 BUN 26 H Creatinine 1.34 H Estim Creat Clear Calc 36.57 Est GFR (MDRD) Af Amer 50 L Est GFR (MDRD) Non-Af 42 L BUN/Creatinine Ratio 19.4 Glucose 314 H Calcium 9.3 Total Bilirubin 0.30 AST 14 L ALT 25 Alkaline Phosphatase 174 H Total Protein 8.7 H Albumin 3.1 L Globulin 5.6 H Albumin/Globulin Ratio 0.6 L Urine Color Yellow Urine Clarity Clear Urine pH 7.0 Ur Specific [place] 1.010 Urine Protein 15 H Urine Glucose (UA) 250 H Urine Ketones Negative Urine Occult Blood Negative Urine Nitrite Negative Urine Bilirubin Negative Urine Urobilinogen Normal Ur Leukocyte Esterase 500 H Urine RBC 0 SEEN Urine WBC 10-25 SEEN Ur Squamous Epith Cells 0-5 SEEN Urine Bacteria 0 SEEN Urine Mucus 0 SEEN Radiography Diagnostic Testing: Clinical Impression(s) from Imaging Studies Abdomen/Pelvis CT 09/25/22 17:43 IMPRESSION: (NOT LISTED IN ORDER OF SIGNIFICANCE) Since the prior study, there is increased compression deformity of T12. 4.4mm retropulsed fragment into the canal causing moderate spinal stenosis. Other findings as above. Electronically Signed: Richard Garrido MD at 19:54 EST Reading Location ID and State: [facility] / [place] , Service support , <Dr. Toni Westbrook MD - Last Filed: 09/25/22 22:42> [facility] Lab Data Labs: Laboratory Results - last 24 hr 09/25/22 09/25/22 09/25/22 18:05 18:05 19:00 WBC 13.3 H RBC 5.42 H Hgb 14.9 Hct 47.0 MCV 86.7 MCH 27.5 MCHC 31.7 L RDW Std Deviation 43.3 RDW Coeff of Yonathan 13.7 Plt Count 373 MPV 9.2 Immature Gran % (Auto) 1.400 H Neut % (Auto) 70.2 H Lymph % (Auto) 17.8 L [place] % (Auto) 8.3 Eos % (Auto) 1.5 Baso % (Auto) 0.8 Absolute Neuts (auto) 9.3 H Absolute Lymphs (auto) 2.36 Nucleated RBC % 0 Sodium 132 L Potassium 3.8 Chloride 100 Carbon Dioxide 22.0 Anion Gap 10 BUN 26 H Creatinine 1.34 H Estim Creat Clear Calc 36.57 Est GFR (MDRD) Af Amer 50 L Est GFR (MDRD) Non-Af 42 L BUN/Creatinine Ratio 19.4 Glucose 314 H Calcium 9.3 Total Bilirubin 0.30 AST 14 L ALT 25 Alkaline Phosphatase 174 H Total Protein 8.7 H Albumin 3.1 L Globulin 5.6 H Albumin/Globulin Ratio 0.6 L Urine Color Yellow Urine Clarity Clear Urine pH 7.0 Ur Specific [place] 1.010 Urine Protein 15 H Urine Glucose (UA) 250 H Urine Ketones Negative Urine Occult Blood Negative Urine Nitrite Negative Urine Bilirubin Negative Urine Urobilinogen Normal Ur Leukocyte Esterase 500 H Urine RBC 0 SEEN Urine WBC 10-25 SEEN Ur Squamous Epith Cells 0-5 SEEN Urine Bacteria 0 SEEN Urine Mucus 0 SEEN Radiography Diagnostic Testing: Clinical Impression(s) from Imaging Studies Abdomen/Pelvis CT 09/25/22 17:43 IMPRESSION: (NOT LISTED IN ORDER OF SIGNIFICANCE) Since the prior study, there is increased compression deformity of T12. 4.4mm retropulsed fragment into the canal causing moderate spinal stenosis. Other findings as above. Electronically Signed: Richard Garrido MD at 19:54 EST Reading Location ID and State: [facility] / [place] , Service support , Discharge Plan Triage Chief Complaint: Back ED Midlevel Provider: Arti Burnette ED Provider: Toni Westbrook Dx/Rx/DC Orders Clinical Impression: Constipation, Spinal stenosis, Compression deformity of vertebra, Abdominal pain Instructions: ED Constipation (Adult) Prescriptions: No Action ezetimibe [Zetia] 10 mg tablet 10 mg PO DAILY metoprolol succinate 25 mg tablet extended release 24 hr 25 mg PO QHS Label Comments: TAKE 1 TABLET BY MOUTH ONCE DAILY venlafaxine 150 mg capsule,extended release 24hr 150 cap PO DAILY esomeprazole magnesium 40 mg capsule,delayed release(DR/EC) 40 cap PO DAILY probiotic 1 tab PO DAILY ascorbate calcium (vitamin C) 500 mg tablet 500 mg PO DAILY D-Mannrose 1,000 mg PO BID Rx Instructions: 1000mg estradiol 0.01 % (0.1 mg/gram) cream 1 applic VAGINAL MOWEFR Label Comments: INSERT 1 GRAM VAGINALLY 3 TIMES A WEEK BEFORE BED cholecalciferol (vitamin D3) [Vitamin D3] 50 mcg (2,000 unit) capsule 2,000 unit PO DAILY Label Comments: TAKE 1 CAPSULE BY MOUTH ONCE DAILY nitrofurantoin monohyd/m-cryst 100 mg capsule 100 mg PO BID trimethoprim 100 mg tablet 100 mg PO DAILY Label Comments: TAKE 1 TABLET BY MOUTH EVERY DAY AT BEDTIME insulin glargine-yfgn 100 unit/mL (3 mL) insulin pen 40 unit subcut DAILY Relistor 150 mg tablet 150 mg PO DAILY Qty: 30 0RF insulin lispro [Humalog KwikPen Insulin] 100 unit/mL insulin pen 25 unit subcut TIDAC Qty: 67.5 0RF Hold Instructions: Resume on 09/16/22. Primary Care Provider: Danya Lanier Referrals: Teofilo Roe DO [Med Staff - Active Staff] - 3-5 Days Danya Lanier MD [Primary Care Provider] - Activity Restrictions/Additional Instructions: Please follow-up with orthopedic doctor I referred you to. Please begin taking MiraLAX. Return if symptoms do not improve or worsen. Your CT scan showed compression deformity of T12. 4.4mm retropulsed fragment into the canal causing moderate spinal stenosis. Disposition Disposition: Home, Self Care Discharge Date/Time: 09/25/22 20:42
[2022-09-25] MEDS: HYDROmorphone 0.5 MG/0.5 ML SYRINGE IV (18:11)
[2022-09-25 18:15] LABS: Absolute Lymphocyte Count 2.36 X10^3/uL (0.83-4.51); Absolute Neutrophil Count 9.3 X10^3/uL (2.0-7.7); Basophil% 0.8 % (0-1); Eosinophils% 1.5 % (0-5); Hemoglobin 14.9 g/dL (12.0-15.0); Lymphocyte # 2.36 X10^3/ul (0.83-4.51); Lymphocyte % 17.8 % (19-41); Mean Corp Hgb Conc 31.7 g/dL (32-36); Mean Corpuscular Hgb 27.5 pg (27.0-32.0); Mean Corpuscular Volume 86.7 fL (81-99); Mean Platelet Vol. 9.2 fl (6.2-12.0); Monocyte% 8.3 % (0-10); NRBC Flagged by Analyzer 0 % (0-5); Neutrophil # 9.33 X10^3/uL (2.7-7.7); Neutrophil % 70.2 % (47-70); Platelet Count 373 K/mm3 (150-450); RBC Distribution Width CV 13.7 % (11.6-14.6); RBC Distribution Width SD 43.3 fl (35.1-43.9); Red Blood Count 5.42 M/mm3 (4.2-5.4); White Blood Count 13.3 K/mm3 (4.4-11.0)
[2022-09-25 18:35] LABS: ALB/GLOB Ratio 0.6 RATIO (0.9-2.4); AST(SGOT) 14 U/L (15-37); Alanine Aminotransfer ALT/SGPT 25 U/L (13-56); Albumin, Serum 3.1 g/dL (3.2-5.0); Alkaline Phosphatase 174 U/L (45-117); Anion Gap 10 (5-15); BUN 26 mg/dL (7-18); BUN/Creat Ratio 19.4 RATIO (10-20); Calcium,Total 9.3 mg/dL (8.5-10.1); Chloride 100 mmol/L (98-107); Creatinine, Serum 1.34 mg/dL (0.55-1.02); EST Glomerular Filtration Rate 42 mL/min (>60); Est Glom Filt Rate - Afr Amer 50 mL/min (>60); Estimated Creatinine Clearance 36.57 ml/min; Globulin 5.6 g/dL (2.2-4.2); Glucose 314 mg/dL (74-106); Potassium 3.8 mmol/L (3.5-5.1); Protein, Total 8.7 g/dL (6.4-8.2); Sodium Level 132 mmol/L (136-145)
[2022-09-25 19:06] LABS: Bacteria 0 SEEN /hpf (None Seen); Mucous, Urine 0 SEEN /hpf (<or=2+); Red Blood Cells-Urine 0 SEEN /hpf (0-5)
[2022-09-25 19:32] LABS: Color, Urine Yellow (Yellow); Glucose, Dipstick 250 mg/dl (Normal); Ketone-Dipstick Negative (Negative); Leukocyte Esterase-Dipstick 500 /ul (Negative); Nitrite-Dipstick Negative (Negative); Occult Blood-Urine Negative /ul (Negative); Protein-Dipstick 15 mg/dl (Negative); Urine Bilirubin Dipstick Negative (Negative); Urine Clarity Clear (Clear); Urine Urobilinogen Normal (Normal)
[2022-09-25 19:44] LABS: Squamous Epithelial Cells - UA 0-5 SEEN /hpf (5-10); White Blood Cells 10-25 SEEN /hpf (0-5)
[2022-09-25 20:41] VITALS: BP 147/81
== END 2022-09-25 20:42 | disposition home or self-care (01) ==
PROVIDERS: Physician Assistant; Emergency Provider Emergency Medicine; PCP Student in an Organized Health Care Education/Training Program; Visit Provider Emergency Medicine
DX: K59.00 Constipation, unspecified (principal); E11.22 Type 2 diabetes mellitus with diabetic chronic kidney disease; E78.5 Hyperlipidemia, unspecified; G89.29 Other chronic pain; I65.23 Occlusion and stenosis of bilateral carotid arteries; M48.00 Spinal stenosis, site unspecified; I12.9 Hypertensive chronic kidney disease with stage 1 through stage 4 chronic kidney disease, or unspecified chronic kidney disease; N18.9 Chronic kidney disease, unspecified; R10.9 Unspecified abdominal pain
CPT/HCPCS: 74177; 80053; 81001; 85025; 99283; Q9967

== ENCOUNTER → 2022-09-30 | Outpatient (CLI) | payer MEDICARE, BC, SELFPAY ==
--- NOTE | 2022-09-30 12:25 | MRI_ITS ---
STUDY: MRI LUMBAR SPINE WITHOUT CONTRAST REASON FOR EXAM: Female, 72 years old. Severe low back pain especially when sitting. Fall injury one year ago and another fall injury 5-[address] showing T12 fracture. TECHNIQUE: Standardized fat and water weighted pulse sequences were obtained in the sagittal and axial planes. COMPARISON: CT abdomen and pelvis with contrast 09/25/2022. FINDINGS: T9-T10: (Sagittal only). Schmorl''s node in the central T9 inferior endplate. Normal endplates. Mild disc space height narrowing. Small ventral extradural defect due to posterior bulging annulus. Normal central canal and bilateral intervertebral neural foramina. T10-T11: (Sagittal only). Normal endplates. Normal disc height, hydration and morphology. Normal central canal and bilateral intervertebral neural foramina. T11-T12: Normal T11 inferior endplate containing a small Schmorl''s node. Mild anterior wedging of the upper T12 vertebral body with moderate amount of bone edema involving nearly the entire T12 vertebral body and bone edema extending to both T12 pedicles. There is also abnormal bony edema with fracture involving the T11 spinous process. Normal central canal and bilateral lateral recesses. Normal bilateral intervertebral neural foramina. T12-L1: Abnormal bone edema underneath the T12 inferior endplate due to the recent fracture of the upper T12 vertebral body. Normal L1 superior endplate. Moderate disc space height narrowing. Mild ventral extradural defect due to small posterior bulging annulus. Normal facet joints. Normal central canal and bilateral lateral recesses. Normal bilateral intervertebral neural foramina. Normal lumbar lordosis. There is no substantial scoliosis. Normal conus medullaris that terminates at the lower T12 vertebral body level. L1-2: Normal endplates. Normal disc height, hydration and morphology. Normal bilateral facet joints. Normal central canal and bilateral lateral recesses. Normal bilateral intervertebral neural foramina. L2-3: Normal endplates. Normal disc height, hydration and morphology. Normal bilateral facet joints. Normal central canal and bilateral lateral recesses. Normal bilateral intervertebral neural foramina. L3-4: Normal endplates. Normal disc height. Mild degenerative retrolisthesis of L3 on L4. Small posterior bulging annulus. No significant facet arthropathy. Normal central canal and bilateral lateral recesses. Normal bilateral intervertebral neural foramina. L4-5: Prominent and deep Schmorl''s node in the upper L5 vertebral body. Normal L4 inferior endplate. Pronounced disc space height narrowing. Grade 1 degenerative anterolisthesis of L4 on L5. Moderately pronounced bilateral degenerative facet arthropathy. Mild central canal stenosis with the transverse canal diameter of 8.7 mm. Normal bilateral lateral recesses. Moderate stenosis of the bilateral intervertebral neural foramina. L5-S1: Normal endplates. Normal disc height, hydration and morphology. Mild bilateral degenerative facet arthropathy. Normal central canal and bilateral lateral recesses. Normal bilateral intervertebral neural foramina. Normal visualized sacral ala. Normal visualized paraspinous soft tissue structures. MRI/Spine Lumbar (Routine) IMPRESSION: 1. Mild recent anterior wedge compression fracture of the upper T12 vertebral body with extensive bone marrow edema. The bone marrow edema extends to both T12 pedicles. 2. Minimal recent fracture involving the T11 posterior spinous process. 3. Mild central canal stenosis at L4-L5 disc space level with a transverse canal diameter of 8.7 mm, grade 1 degenerative anterolisthesis of L4 on L5 and moderate stenosis of the bilateral intervertebral neural foramina. 4. Mild degenerative retrolisthesis of L3 on L4 and small posterior bulging annulus. 5. No MRI evidence of lumbar extruded disc fragment. Electronically Signed: Facundo Pablo MD at 13:39 EST ,
[2022-09-30 12:35] VITALS: BP 137/66; PULSE 92; RESP 16; O2SAT 99
[2022-09-30 12:45] VITALS: BP 139/68; PULSE 104; RESP 16; O2SAT 96
[2022-09-30 12:55] VITALS: BP 137/67; PULSE 102; RESP 16; O2SAT 94
[2022-09-30 13:05] VITALS: BP 139/66; PULSE 103; RESP 16; O2SAT 96
[2022-09-30 13:14] VITALS: BP 139/70; PULSE 104; RESP 16; O2SAT 96
== END | disposition home or self-care (01) ==
LOC: MRI 12:14
PROVIDERS: PCP Student in an Organized Health Care Education/Training Program; Referring Provider Anesthesiology Pain Medicine; Visit Provider Anesthesiology Pain Medicine
DX: M48.50XA Collapsed vertebra, not elsewhere classified, site unspecified, initial encounter for fracture (principal); W19.XXXA Unspecified fall, initial encounter
CPT/HCPCS: 72148

== ENCOUNTER 2022-10-08 13:26 | Inpatient (IN) | payer MEDICARE, BC, SELFPAY ==
[2022-10-08 13:27] VITALS: BP 115/76; PULSE 121; RESP 18; TEMP 36.4; O2SAT 99; BMI 29.1
--- NOTE | 2022-10-08 13:43 | CT_ITS ---
STUDY: CT THORACIC SPINE WITHOUT CONTRAST REASON FOR EXAM: Female, 72 years old. Trauma -- recent t11-t12 kyphoplasty RADIATION DOSAGE (If Supplied By Facility): CTDIvol = ( 28.68 ) mGy, DLP = ( 1169.97 ) mGycm TECHNIQUE: The patient was scanned in a multi detector CT scanner. High resolution imaging was performed. Images were obtained from T1 to T12 vertebral level. Sagittal and coronal images were reconstructed. Individualized dose optimization techniques were used for this CT. COMPARISON: None. FINDINGS: Prior vertebral plasty of the T12-L1 vertebrae. There is an increased kyphosis of the thoracic spine. There is no substantial scoliosis. There is multilevel endplate spondylosis of the thoracic spine. There is multilevel degenerative disc disease with loss of the disc space heights. The soft tissue structures are unremarkable. CT/Spine Thoracic without Contras IMPRESSION: Multilevel disc space narrowing and spondylosis. Prior vertebral plasty of the T12 and L1 vertebrae. Electronically Signed: Theo Perez MD at 14:57 EST ,
--- NOTE | 2022-10-08 13:43 | CT_ITS ---
STUDY: CT CERVICAL SPINE WITHOUT CONTRAST REASON FOR EXAM: Female, 72 years old. Neck pain following injury. RADIATION DOSAGE (If Supplied By Facility): CTDIvol = ( 19.86 ) mGy, DLP = ( 412.80 ) mGycm TECHNIQUE: High resolution transaxial imaging was performed without contrast material. Sagittal and coronal images were reconstructed. Individualized dose optimization techniques were used for this CT. COMPARISON: None FINDINGS: Normal craniovertebral junction. There are degenerative changes of the anterior atlantoaxial articulation. Normal odontoid process. Normal cervical lordosis. Normal vertebral bodies and posterior osseous elements. C2-3: Normal endplates. Normal disc height and morphology. Normal central canal and intervertebral neuroforamina. C3-4: Normal endplates. Normal disc height and morphology. Normal central canal and intervertebral neuroforamina. C4-5: Normal endplates. Normal disc height and morphology. Normal central canal and intervertebral neuroforamina. C5-6: Normal endplates. Normal disc height and morphology. Normal central canal and intervertebral neuroforamina. C6-7: Normal endplates. Normal disc height and morphology. Normal central canal and intervertebral neuroforamina. C7-T1: Mild degree of loss of height of the superior endplate of the C7 and T2 vertebrae. Normal visualized soft tissue structures. CT/Spine Cervical without Contras IMPRESSION: Multilevel degenerative changes, as described above. Electronically Signed: Theo Perez MD at 14:53 EST ,
--- NOTE | 2022-10-08 13:43 | CT_ITS ---
STUDY: CT LUMBAR SPINE WITHOUT CONTRAST REASON FOR EXAM: Female, 72 years old. Low back pain following a fall. RADIATION DOSAGE (If Supplied By Facility): CTDIvol = ( 30.52 ) mGy, DLP = ( 978.54 ) mGycm TECHNIQUE: The patient was scanned in a multi detector CT scanner. High resolution transaxial imaging was performed. Images were obtained from L1 vertebral level to S1 vertebral level. Sagittal and coronal images were reconstructed. Individualized dose optimization techniques were used for this CT. COMPARISON: Comparison is made with prior MRI of the lumbar spine dated 03/30/2023. FINDINGS: Normal lumbar lordosis. There is no substantial scoliosis. Normal vertebrae of the lumbar spine. L1-2: Normal endplates. Normal disc height and morphology. Normal bilateral facet joints. Normal central canal and bilateral lateral recesses. Normal bilateral intervertebral neural foramina. L2-3: Normal endplates. Normal disc height and morphology. Normal bilateral facet joints. Normal central canal and bilateral lateral recesses. Normal bilateral intervertebral neural foramina. L3-4: Mild degree of disc space narrowing and disc degeneration. Mild degree of diffuse posterior disc bulge. L4-5: Minimal anterior listhesis of L4 on L5 most likely secondary to the facet joint osteoarthritis. There is evidence of a spondylolysis of the pars interarticularis of the L4 vertebrae. There is a marked degree of disc space narrowing and disc degeneration. Prominent and deep Schmorl''s node in the superior aspect of the L5 vertebrae. Bilateral neural foraminal stenosis. L5-S1: Normal endplates. Normal disc height and morphology. Normal bilateral facet joints. Normal central canal and bilateral lateral recesses. Normal bilateral intervertebral neural foramina. Atherosclerotic plaque formation of the abdominal aorta. CT/Spine Lumbar without Contrast IMPRESSION: Multilevel degenerative changes, as described above. Grade 1 anterolisthesis of L4 on L5 due to facet joint osteoarthritis and spondylolysis of the pars interarticularis of the L4 vertebrae. Stable large Schmorl''s node in the superior endplate of the L4 vertebrae. Electronically Signed: Theo Perez MD at 14:51 EST ,
--- NOTE | 2022-10-08 13:43 | CT_ITS ---
STUDY: CT BRAIN WITHOUT CONTRAST REASON FOR EXAM: Female, 72 years old. Head injury RADIATION DOSAGE (If Supplied By Facility): CTDIvol = ( 44.99 ) mGy, DLP = ( 846.73 ) mGycm TECHNIQUE: Transaxial CT imaging of the brain was performed without administration of intravenous contrast material. Individualized dose optimization techniques were used for this CT. COMPARISON: No relevant priors. FINDINGS: Normal soft tissue structures. Normal calvarium. There is mild cerebral atrophy with widening of the extra-axial spaces and ventricular dilatation. There are areas of decreased attenuation within the white matter tracts of the supratentorial brain, consistent with microvascular disease changes. Normal basal ganglia and thalami. Normal brainstem. Normal cerebellum. There is no intracranial hemorrhage. There are no findings of an acute ischemic infarction. Atherosclerotic plaque formation of the vertebral arteries and cavernous portions of the internal carotid arteries bilaterally. Small air-fluid level in the right sphenoid sinus. CT/Brain/Head without Contrast IMPRESSION: Normal unenhanced CT scan of the brain. Small air-fluid level in the right maxillary sinus. Electronically Signed: Theo Perez MD at 14:48 EST ,
--- NOTE | 2022-10-08 13:44 | EKG12_ITS ---
Test Reason : Blood Pressure : / mmHG Vent. Rate : 120 BPM Atrial Rate : 120 BPM P-R Int : 150 ms QRS Dur : 078 ms QT Int : 308 ms P-R-T Axes : 057 -31 054 degrees QTc Int : 435 ms Sinus tachycardia Left axis deviation Inferior infarct , age undetermined Abnormal ECG Confirmed by MITCHELL CAR[place], ROXANE ([id number]), editor map MEGGAN SHEN ([id number]) on 10/09/2022 2:49:58 PM Referred By: LESLIE Confirmed By:PHAN MEDRANO MD
--- NOTE | 2022-10-08 14:01 | ED.RN ---
PT PACEMAKER INVESTIGATED BY THIS RN. PT TOLERATED WELL. THIS RN CONTACTED [employer] PHONE LINE DIRECTED. PER [employer] PT RESULTS WILL BE FAXED TO THE ED.
[2022-10-08 14:06] LABS: Absolute Lymphocyte Count 2.29 X10^3/uL (0.83-4.51); Absolute Neutrophil Count 11.6 X10^3/uL (2.0-7.7); Basophil% 0.6 % (0-1); Eosinophils% 3.1 % (0-5); Hematocrit 43.9 % (37-47); Hemoglobin 14.3 g/dL (12.0-15.0); Lymphocyte # 2.29 X10^3/ul (0.83-4.51); Lymphocyte % 14.2 % (19-41); Mean Corp Hgb Conc 32.6 g/dL (32-36); Mean Corpuscular Hgb 27.8 pg (27.0-32.0); Mean Corpuscular Volume 85.2 fL (81-99); Monocyte# 1.34 X10^3/uL; Monocyte% 8.3 % (0-10); NRBC Flagged by Analyzer 0 % (0-5); Neutrophil # 11.63 X10^3/uL (2.7-7.7); Neutrophil % 72.3 % (47-70); Platelet Count 348 K/mm3 (150-450); RBC Distribution Width CV 13.7 % (11.6-14.6); RBC Distribution Width SD 42.5 fl (35.1-43.9); Red Blood Count 5.15 M/mm3 (4.2-5.4); White Blood Count 16.1 K/mm3 (4.4-11.0)
[2022-10-08] MEDS: HYDROmorphone 1 MG/ML Syringe 0.5 MG IV (14:07)
--- NOTE | 2022-10-08 14:11 | EDS_ITS ---
HPI History of Present Illness Chief Complaint: Dizziness Informant: patient and family Narrative Narrative: Patient presents to ED by EMS for evaluation. Reports 2 syncopal episodes since yesterday. Reports increasing back pain. Reports headache. Patient does not take any blood thinners. Difficulty with full history with patient's reporting she has been to the emergency department weekly since August over a month ago. She states she has had similar symptoms since then. She reports she would stand and walk suddenly will have a syncopal episode no prodromal chest pains or shortness of breath. Yesterday had a head injury. She states her back pain has been increasing has not been addressed. She reports she has been hospitalized and told UTI. 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 She states is a [employer] Additional history stating she is followed with Dr. Fuentes who ordered an MRI and she end up getting a kyphoplasty a week ago. Pain with no significant improvement however worsened since her falls. The concern for additional fracture. Family is present states she is currently at home and they are taking turns taking care of her and there has been no discussion of rehab versus skilled care. They state they would like this evaluated. After work-up was initiated noted patient admitted for UTI dehydration the day after Rhiannon for 1 day. She had 2 visits in September for concerns for ileus versus partial small bowel obstruction. She was seen by surgery. She was improved. She was seen back in the ED September 25 for constipation. Review of records there, from CT scan there was noted increasing T12 vertebral fracture. There was an MRI study ordered by Dr. Fuentes on September 30 confirming T12 fracture and a spinous fracture of T11. There was no reported issues of syncopal episodes. Apparently this would be new for her. She denies any urinary symptoms. Denies recent vomiting or diarrhea. Prior similar symptoms: Yes [facility] Medical History Abnormal CT scan, colon Asthma Carotid stenosis, bilateral Chronic pain Constipation Depression Diabetes GERD (gastroesophageal reflux disease) HLD (hyperlipidemia) HTN (hypertension) Ileus Non-smoker Pacemaker Pancreatitis Presence of cardiac pacemaker Sick sinus syndrome Sleep apnea TIA (transient ischemic attack) UTI (urinary tract infection) Home Medications ezetimibe 10 mg tablet (Zetia) 10 mg PO DAILY . 05/31/19 [History Last Taken 10/06/22] D-Mannrose 1,000 mg PO BID UTI 08/03/22 [History Last Taken 09/17/22] ascorbate calcium (vitamin C) 500 mg tablet 500 mg PO DAILY SUPPLEMENT 08/03/22 [History Last Taken 10/06/22] probiotic 1 tab PO DAILY SUPPLEMENT 08/03/22 [History Last Taken 10/06/22] esomeprazole magnesium 40 mg capsule,delayed release 40 cap PO DAILY . 08/06/22 [History Last Taken 10/07/22] metoprolol succinate 25 mg tablet,extended release 24 hr 25 mg PO QHS BLOOD PRESSURE 08/06/22 [History Last Taken 10/07/22] venlafaxine 150 mg capsule,extended release 24 hr 150 cap PO DAILY DEPRESSION 08/06/22 [History Last Taken 10/05/22] cholecalciferol (vitamin D3) 50 mcg (2,000 unit) capsule (Vitamin D3) 2,000 unit PO DAILY SUPPLEMENT 08/31/22 [History Last Taken 10/06/22] estradiol 0.01% (0.1 mg/gram) vaginal cream 1 applic vaginal MOWEFR HORMONE 08/31/22 [History Last Taken 1 Week Ago ~10/01/22] nitrofurantoin monohydrate/macrocrystals 100 mg capsule 100 mg PO BID UTI 09/13/22 [History Last Taken 10/07/22] insulin glargine-yfgn 100 unit/mL (3 mL) subcutaneous pen 40 unit subcut DAILY DM 09/18/22 [History Last Taken 10/08/22] trimethoprim 100 mg tablet 100 mg PO DAILY UTI 09/18/22 [History Last Taken Unknown] insulin aspart U-100 100 unit/mL subcutaneous solution (Novolog U-100 Insulin aspart) 25 unit (0.25 mL) subcut TID #70 mL 10/01/22 [Rx Last Taken 10/08/22] clindamycin HCl 150 mg capsule 150 mg PO BID ANTIBIOTIC 10/08/22 [History Last Taken 10/08/22] Allergy/AdvReac Type Severity Reaction Status Date / Time morphine Allergy Mild Rash Verified 09/18/22 08:39 Penicillins Allergy Mild Rash Verified 09/18/22 08:39 Sulfa (Sulfonamide Allergy Mild Rash Verified 09/18/22 08:39 Antibiotics) Family History Mother Hypertension Father Asthma Depression Diabetes High cholesterol Hypertension Other Arthritis Autoimmune disorder Breast cancer Cancer Kidney disease Surgical History H/O section H/O: hysterectomy History of appendectomy History of cholecystectomy Hx laparoscopic cholecystectomy Social History household members: none Smoking Status: Never smoker alcohol intake: never substance use type: does not use what type of physical activity do you participate in: none ROS ROS ED Constitutional Constitutional ED: Denies chills, fever(s) or sweats Eyes Eyes: Denies change in vision ENT ENT ED: Denies dysphagia or sore throat Cardiovascular Cardiovascular: Denies chest pain, leg edema, palpitations or racing heartbeat Respiratory/Chest Respiratory/Chest: Denies cough, dyspnea or dyspnea on exertion Gastrointestinal Gastrointestinal: Denies abdominal pain, diarrhea, nausea or vomiting Genitourinary Genitourinary ED: Denies dysuria, hematuria or urinary frequency Musculoskeletal Musculoskeletal: Reports back pain; Denies extremity pain or neck pain Integumentary Denies rash or wounds Neurologic Neurologic: Reports headache(s); Denies paresthesias or weakness EXAM Physical Exam Const Vital Signs: 10/08/22 13:27 10/08/22 13:31 Temperature 97.6 F L Temperature Source Oral Pulse Rate 121 H Respiratory Rate 18 Respiratory Effort Normal Respiratory Pattern Normal Blood Pressure 115/76 Blood Pressure Mean 89 Pulse Ox 99 Oxygen Delivery Method Room Air Positive well nourished and well developed Constitutional Narrative: Awake alert oriented x3, frustrated during discussion. However cooperative. General Appearance ED: well developed HEENT Reports moist mucous membranes normocephalic and atraumatic Eyes PERRL, EOMs intact bilaterally and conjunctivae normal General Eye ED: Yes normal appearance of both eyes Neck no lymphadenopathy and supple General: Negative for tenderness Chest Wall inspection of chest normal and palpation of chest normal Chest: Negative for tenderness Resp normal respiratory effort and normal air movement Effort and Inspection: symmetric chest movement; Negative for respiratory distress Cardio regular rhythm and no murmurs Rate: tachycardic Peripheral Pulses: pulses 2+ throughout GI normal to inspection, nondistended, normoactive bowel sounds and non-tender Palpation: Negative for guarding or rebound tenderness present Back/Spine no CVA tenderness Back/Spine Narrative: Slight kyphosis thoracic spine there is no step-offs. No reproducible tenderness throughout the spine. Extremity normal to inspection General Extremety ED: Negative for edema or tenderness General Extremity: Negative for edema Neuro oriented x3, CN's II-XII intact bilaterally and no sensory deficits noted Sensorium / Orientation: awake and alert Skin no rashes or lesions noted and no wounds MDM MDM MDM Narrative Medical decision making narrative: Patient syncopal episode on arrival x2. Differential vasovagal versus dysrhythmias. Reports headache worsening back pain. Differentials concussion versus intracranial hemorrhage. Differential also vertebral fractures with a history of this. Patient has a [employer] device will have this interrogated. Cardiac work-up will be initiated. We will check labs chest x- ray. Will check CT head C-spine thoracic lumbar spine further evaluation. Family does not feel they take care of at home. Discussed with case management who will help evaluate patient in the ED for disposition plans. 1515: Trauma scans head cervical spine thoracic lumbar spine reviewed by myself interpreted radiology previous kyphoplasty is noted there is no new fractures.- White peers at T11-T12 on my evaluation. Labs White count was 16 stable creatinine 1.37. She denies any cough for concerns of pneumonia. Denies urine symptoms. She had history of UTI therefore UA was added. Reported by family today prior to her kyphoplasty 8 days ago she did have injections likely with steroids. Her kyphoplasty was done a week ago. She is currently on Percocet scheduled for every 4 hours her family's been pushing to every 5 hours. Discussed with case management who evaluated the ED, unable to place from the ED today. She will require admission. Interrogation report has been done however results have not been sent to me. Unclear pain induced syncope. I will speak with hospitalist service for admission. 1525: I spoke with Dr. Hidalgo for admission. 1540: I reviewed the [employer] report noting since September 30, 2022 of her last report there is no VT episodes, no SVT episodes, no sustained VT episodes. Lab Data Attestation: I reviewed the patient's lab results. Labs: Laboratory Results - last 24 hr 10/08/22 10/08/22 14:00 14:00 WBC 16.1 H RBC 5.15 Hgb 14.3 Hct 43.9 MCV 85.2 MCH 27.8 MCHC 32.6 RDW Std Deviation 42.5 RDW Coeff of Yonathan 13.7 Plt Count 348 MPV 9.0 Immature Gran % (Auto) 1.500 H Neut % (Auto) 72.3 H Lymph % (Auto) 14.[address] [place] % (Auto) 8.3 Eos % (Auto) 3.1 Baso % (Auto) 0.6 Absolute Neuts (auto) 11.6 H Absolute Lymphs (auto) 2.29 Nucleated RBC % 0 Sodium 138 Potassium 4.0 Chloride 108 H Carbon Dioxide 24.0 Anion Gap 6 BUN 30 H Creatinine 1.37 H Estim Creat Clear Calc 35.77 Est GFR (MDRD) Af Amer 49 L Est GFR (MDRD) Non-Af 40 L BUN/Creatinine Ratio 21.9 H Glucose 275 H Calcium 9.8 Troponin I High Sens 6 Radiography Diagnostic Testing: Clinical Impression(s) from Imaging Studies Brain CT 10/08/22 13:43 IMPRESSION: Normal unenhanced CT scan of the brain. Small air-fluid level in the right maxillary sinus. Electronically Signed: Theo Perez MD at 14:48 EST , Cervical Spine CT 10/08/22 13:43 IMPRESSION: Multilevel degenerative changes, as described above. Electronically Signed: Theo Perez MD at 14:53 EST , Lumbar Spine CT 10/08/22 13:43 IMPRESSION: Multilevel degenerative changes, as described above. Grade 1 anterolisthesis of L4 on L5 due to facet joint osteoarthritis and spondylolysis of the pars interarticularis of the L4 vertebrae. Stable large Schmorl''s node in the superior endplate of the L4 vertebrae. Electronically Signed: Theo Perez MD at 14:51 EST , Thoracic Spine CT 10/08/22 13:43 IMPRESSION: Multilevel disc space narrowing and spondylosis. Prior vertebral plasty of the T12 and L1 vertebrae. Electronically Signed: Theo Perez MD at 14:57 EST Reading Location ID and State: [facility] / [place] , Service support , EKG Initial EKG: Attestation: I personally reviewed and interpreted this EKG as follows: Comments: Sinus rate of 120, no ST or T wave changes QTC 435. Discharge Plan Dx/Rx/DC Orders Clinical Impression: Back pain, S/P kyphoplasty, History of vertebral fracture, Syncope Disposition Disposition: Acute Care [facility]
--- NOTE | 2022-10-08 14:16 | CM.ED ---
Addendum entered by Cinthya Hooks 10/08/22 14:28: VALERIE called [facility] at [facility]. No beds available. Original Note: MD Andersen advised that patient and patient's family stated that patient needs rehab. VALERIE met with patient, patient's sister and patient's daughter. Patient said that she could not go to SNF due to insurance denying her. Sister said that patient needs SNF and can go anywhere. Cinthya BAIRD
[2022-10-08 14:31] LABS: Anion Gap 6 (5-15); BUN 30 mg/dL (7-18); BUN/Creat Ratio 21.9 RATIO (10-20); Calcium,Total 9.8 mg/dL (8.5-10.1); Chloride 108 mmol/L (98-107); Creatinine, Serum 1.37 mg/dL (0.55-1.02); EST Glomerular Filtration Rate 40 mL/min (>60); Est Glom Filt Rate - Afr Amer 49 mL/min (>60); Estimated Creatinine Clearance 35.77 ml/min; Glucose 275 mg/dL (74-106); Sodium Level 138 mmol/L (136-145); Troponin-I HS 6 pg/mL (3.0-54.0)
[2022-10-08] MEDS: HYDROmorphone 1 MG/ML Syringe IV (15:14)
--- NOTE | 2022-10-08 15:49 | PCM.HP.STD ---
HPI - General General Date of Admission: 10/08/22 Date of Service: 10/08/22 Chief Complaint: syncope HPI Narrative GINA LEAL, is a 72 F who presents with syncopal episodes. Over the past 2 days, patient has had 2 syncopal episodes. Patient has had no forewarning and went down. Yesterday, patient was going into her bathroom and fell hitting her head. Did not seek attention at that time. Today, patient was getting up with a walker and then just fell forward with no warning. Patient presented to the emergency room for evaluation. Patient is a diabetic and blood sugars have been in the 400s. Patient does have diabetic retinopathy and is unable to see what she is drawing up properly but is not able to see what her blood sugars are with the OneTouch and they have been in the 400s. Patient does have a pacemaker for what sounds like some sick sinus syndrome. Was told that patient did have a pacemaker interrogated here but the results of which are unknown. [facility] Medical History Abnormal CT scan, colon Asthma Carotid stenosis, bilateral Chronic pain Constipation Depression Diabetes GERD (gastroesophageal reflux disease) HLD (hyperlipidemia) HTN (hypertension) Ileus Non-smoker Pacemaker Pancreatitis Presence of cardiac pacemaker Sick sinus syndrome Sleep apnea TIA (transient ischemic attack) UTI (urinary tract infection) Home Medications ezetimibe 10 mg tablet (Zetia) 10 mg PO DAILY . 05/31/19 [History Last Taken 10/06/22] D-Mannrose 1,000 mg PO BID UTI 08/03/22 [History Last Taken 09/17/22] ascorbate calcium (vitamin C) 500 mg tablet 500 mg PO DAILY SUPPLEMENT 08/03/22 [History Last Taken 10/06/22] probiotic 1 tab PO DAILY SUPPLEMENT 08/03/22 [History Last Taken 10/06/22] esomeprazole magnesium 40 mg capsule,delayed release 40 cap PO DAILY . 08/06/22 [History Last Taken 10/07/22] metoprolol succinate 25 mg tablet,extended release 24 hr 25 mg PO QHS BLOOD PRESSURE 08/06/22 [History Last Taken 10/07/22] venlafaxine 150 mg capsule,extended release 24 hr 150 cap PO DAILY DEPRESSION 08/06/22 [History Last Taken 10/05/22] cholecalciferol (vitamin D3) 50 mcg (2,000 unit) capsule (Vitamin D3) 2,000 unit PO DAILY SUPPLEMENT 08/31/22 [History Last Taken 10/06/22] estradiol 0.01% (0.1 mg/gram) vaginal cream 1 applic vaginal MOWEFR HORMONE 08/31/22 [History Last Taken 1 Week Ago ~10/01/22] nitrofurantoin monohydrate/macrocrystals 100 mg capsule 100 mg PO BID UTI 09/13/22 [History Last Taken 10/07/22] insulin glargine-yfgn 100 unit/mL (3 mL) subcutaneous pen 40 unit subcut DAILY DM 09/18/22 [History Last Taken 10/08/22] trimethoprim 100 mg tablet 100 mg PO DAILY UTI 09/18/22 [History Last Taken Unknown] insulin aspart U-100 100 unit/mL subcutaneous solution (Novolog U-100 Insulin aspart) 25 unit (0.25 mL) subcut TID #70 mL 10/01/22 [Rx Last Taken 10/08/22] clindamycin HCl 150 mg capsule 150 mg PO BID ANTIBIOTIC 10/08/22 [History Last Taken 10/08/22] Allergy/AdvReac Type Severity Reaction Status Date / Time morphine Allergy Mild Rash Verified 09/18/22 08:39 Penicillins Allergy Mild Rash Verified 09/18/22 08:39 Sulfa (Sulfonamide Allergy Mild Rash Verified 09/18/22 08:39 Antibiotics) Family History Mother Hypertension Father Asthma Depression Diabetes High cholesterol Hypertension Other Arthritis Autoimmune disorder Breast cancer Cancer Kidney disease Surgical History H/O section H/O: hysterectomy History of appendectomy History of cholecystectomy Hx laparoscopic cholecystectomy Social History household members: none Smoking Status: Never smoker alcohol intake: never substance use type: does not use what type of physical activity do you participate in: none ROS ROS Narrative Does get chilled at times but no new changes with that. Has had other episodes where she feels dizzy but not passed out. Patient states that she only falls a few times per year. All review of systems were negative except as mentioned above in the history of present illness and the other review of systems. Vital Signs Vital Signs Vital Signs: 10/08/22 13:27 10/08/22 13:31 Temperature 36.4 C L Temperature Source Oral Pulse Rate 121 H Respiratory Rate 18 Respiratory Effort Normal Respiratory Pattern Normal Blood Pressure 115/76 Blood Pressure Mean 89 Pulse Ox 99 Oxygen Delivery Method Room Air Weight Weight: 81.9 kg Body Mass Index (BMI) 29.1 Physical Exam Const alert and no apparent distress HEENT normocephalic, head/scalp atraumatic, hearing grossly normal bilaterally and moist oral mucous membranes Eyes PERRL and EOMs intact bilaterally Resp normal respiratory effort, no retractions, no use of accessory muscles and clear to auscultation bilaterally Cardio regular rate, regular rhythm, S1 normal heart sound and S2 normal heart sound GI normal to inspection, nondistended, normoactive bowel sounds, soft to palpation, non-tender and non-distended Extremity normal to inspection, full ROM and no clubbing, cyanosis or edema Neuro oriented x3 and moves all extremities Psych affect normal Results Lab / Micro Data Attestation: I reviewed the patient's lab results. Result Diagrams: 10/08/22 14:00 10/08/22 14:00 Labs: Laboratory Results - last 24 hr 10/08/22 14:00: WBC 16.1 H, RBC 5.15, Hgb 14.3, Hct 43.9, MCV 85.2, MCH 27.8, MCHC 32.6, RDW Std Deviation 42.5, RDW Coeff of Yonathan 13.7, Plt Count 348, MPV 9.0, Immature Gran % (Auto) 1.500 H, Neut % (Auto) 72.3 H, Lymph % (Auto) 14.2 L, Mcintosh % (Auto) 8.3, Eos % (Auto) 3.1, Baso % (Auto) 0.6, Absolute Neuts (auto) 11.6 H, Absolute Lymphs (auto) 2.29, Nucleated RBC % 0 10/08/22 14:00: Sodium 138, Potassium 4.0, Chloride 108 H, Carbon Dioxide 24.0, Anion Gap 6, BUN 30 H, Creatinine 1.37 H, Estim Creat Clear Calc 35.77, Est GFR (MDRD) Af Amer 49 L, Est GFR (MDRD) Non-Af 40 L, BUN/Creatinine Ratio 21.9 H, Glucose 275 H, Calcium 9.8, Troponin I High Sens 6 EKG Initial EKG: Attestation: I personally reviewed and interpreted this EKG as follows: Prior EKG tracings: available for review EKG Rhythm Intrepretation: Sinus Rhythm Radiology Impression Brain CT 10/08/22 13:43 IMPRESSION: Normal unenhanced CT scan of the brain. Small air-fluid level in the right maxillary sinus. Electronically Signed: Theo Perez MD at 14:48 EST Reading Location ID and State: [id number] / [place] , Service support , Cervical Spine CT 10/08/22 13:43 IMPRESSION: Multilevel degenerative changes, as described above. Electronically Signed: Theo Perez MD at 14:53 EST Reading Location ID and State: [id number] / [place] , Service support , Lumbar Spine CT 10/08/22 13:43 IMPRESSION: Multilevel degenerative changes, as described above. Grade 1 anterolisthesis of L4 on L5 due to facet joint osteoarthritis and spondylolysis of the pars interarticularis of the L4 vertebrae. Stable large Schmorl''s node in the superior endplate of the L4 vertebrae. Electronically Signed: Theo Perez MD at 14:51 EST Reading Location ID and State: [id number] / [place] , Service support , Thoracic Spine CT 10/08/22 13:43 IMPRESSION: Multilevel disc space narrowing and spondylosis. Prior vertebral plasty of the T12 and L1 vertebrae. Electronically Signed: Theo Perez MD at 14:57 EST Reading Location ID and State: [id number] / [place] , Service support , Assessment & Plan Assessment/Plan (1) Syncope: PLAN: Unclear etiology. Patient had no forewarning, however, the patient does have diabetes so she may have some autonomic insufficiency. Interrogate pacemaker Check orthostatic vital signs Check echocardiogram (2) Debility: PLAN: PTOT evaluate and treat Patient does live by herself and with her falls and syncope, it is concerned about the patient going back and living on her own independently. (3) History of vertebral fracture: PLAN: Patient did have prado scans of her cervical thoracic and lumbar spine showed no acute fracture.MRI of the lumbar spine on September 30 showed mild recent anterior wedge compression fracture of the upper T12 vertebral body with extensive bone marrow edema. 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 Nonetheless, patient is insulin-dependent. Blood sugars have been in the 400s at home according to her. Concern of the patient may not be able to read the numbers on her syringes when she draws them up to probably give herself on the right insulin. Patient was blaming the change on receiving NovoLog instead of Humalog. Explained that essentially the same medication. Check an A1c Continue glargine, NovoLog and sliding scale insulin. PLAN: Plan Chronic conditions Sick sinus syndrome: Status post pacemaker. Follow-up cardiology as outpatient Diabetic retinopathy: Follow-up with ophthalmology as outpatient Chronic kidney disease stage IIIb: Stable VTE prophylaxis: Not indicated given current observation status. CODE STATUS: Addressed with the patient. Patient wishes to be full code. Charges/Coding Visit Charges Inpatient E&M: 90795 Init Hosp L3
[2022-10-08 15:55] VITALS: BP 123/69; PULSE 122; RESP 16; TEMP 36.3; O2SAT 97
--- NOTE | 2022-10-08 16:09 | ECHOD_ITS ---
Reason For Study: SYNCOPE Procedure This was a 2D Doppler, Color Flow transthoracic echocardiogram. Exam performed portable in patient room. Left Ventricle Normal LV size. Sigmoid septal hypertrophy. No evidence of LVOT obstruction. The estimated ejection fraction is 70 %. No evidence for diastolic dysfunction. No regional wall motion abnormalities noted. Right Ventricle Normal RV size. Normal systolic function. Atria Normal left atrium. Normal right atrium. No doppler evidence for ASD. Mitral Valve There is no mitral valve stenosis. No mitral valve insufficiency. Tricuspid Valve There is no tricuspid stenosis. Trivial tricuspid valve insufficiency. Unable to estimate RV systolic pressure due to insufficient tricuspid regurgitant envelope. Aortic Valve Trisinus/trileaflet aortic valve. Moderate diffuse aortic valve thickening. Aortic sclerosis, no stenosis. There is no aortic stenosis. No aortic valve insufficiency. Pulmonic Valve There is no pulmonic valvular stenosis. Trivial pulmonic valve insufficiency. Great Vessels Normal aortic root. Pericardium/Pleural No pericardial effusion. MMode/2D Measurements & Calculations LVIDd: 3.8 cm IVSd: 1.1 cm Ao root diam: 3.2 cm LVIDs: 2.6 cm LVPWd: 1.2 cm FS: 30.4 % LAV(MOD-sp4): 24.4 ml LVAd ap4: 21.9 cm2 SV(MOD-sp4): 38.0 ml LVLd ap4: 7.5 cm EDV(MOD-sp4): 51.5 ml EDV(sp4-el): 54.0 ml LVAs ap4: 10.0 cm2 LVLs ap4: 6.1 cm ESV(MOD-sp4): 13.5 ml ESV(sp4-el): 13.9 ml EF(MOD-sp4): 73.7 % EF(sp4-el): 74.4 % SV(sp4-el): 40.2 ml LA A4 area: 12.7 cm2 LA dimension(2D): 3.3 cm RA A4 area: 9.6 cm2 Time Measurements MV dec time: 0.24 sec Doppler Measurements & Calculations MV E max deon: 66.1 cm/sec Lat Peak E' Deon: 8.3 cm/sec Med Peak E' Deon: 7.7 cm/sec MV A max deon: 110.0 cm/sec E/E' lat: 7.9 E/E' med: 8.6 MV E/A: 0.60 MV V2 max: 112.5 cm/sec Ao V2 max: 107.0 cm/sec MV max P.1 mmHg MV dec slope: 286.7 cm/sec2 Ao max P.6 mmHg MV V2 mean: 67.6 cm/sec Ao V2 mean: 78.0 cm/sec MV mean P.1 mmHg Ao mean P.7 mmHg MV V2 VTI: 29.0 cm Ao V2 VTI: 20.6 cm AV (velocity ratio): 0.83 LV V1 max: 92.6 cm/sec PA V2 max: 84.0 cm/sec LV V1 max P.4 mmHg PA V2 mean: 49.1 cm/sec LV V1 mean P.1 mmHg LV V1 mean: 68.4 cm/sec LV V1 VTI: 17.0 cm ECHO/Echo Complete Interpretation Summary The estimated ejection fraction is 70 %. No evidence for diastolic dysfunction. Aortic sclerosis, no stenosis. Ordering Physician: Emmanuel Hidalgo Referring Physician: OLIVIER ACOSTA Performed By: Debbie Flores RCS
[2022-10-08 16:17] VITALS: BMI 28.7
[2022-10-08 16:24] VITALS: BP 120/85; PULSE 120; RESP 17; TEMP 36.6; O2SAT 100
[2022-10-08 16:25] VITALS: BP 129/75; BP 132/79; BP 73/50; PULSE 119; PULSE 123; PULSE 130
[2022-10-08 17:53] LABS: Vitamin D,25 Hydroxy 22.9 ng/mL
[2022-10-08] MEDS: Insulin Lispro 100 UNIT/ML INSULN.PEN 25 UNIT SC (18:16)
[2022-10-08] MEDS: oxyCODONE 5 MG Tablet PO ×2 (18:16→23:35)
[2022-10-08] MEDS: Insulin Lispro 100 UNIT/ML INSULN.PEN SC (18:17)
[2022-10-08] MEDS: 0.9% Saline Lock 10 ML Syringe IV (18:20)
[2022-10-08] MEDS: 0.9% Normal Saline 1,000 ML 200 ML IV (18:21)
[2022-10-08 21:12] VITALS: BP 120/82; PULSE 90; RESP 18; TEMP 36.9; O2SAT 96
[2022-10-08] MEDS: Metoprolol(XL)Succ 25 MG Tablet PO (21:12)
[2022-10-08] MEDS: Acetaminophen 500 MG Tablet 1000 MG PO (21:12)
[2022-10-08] MEDS: Venlafaxine XR 150 MG Capsule PO (21:13)
[2022-10-09 03:15] VITALS: BP 123/70; PULSE 102; RESP 18; TEMP 36.7; O2SAT 93
[2022-10-09 05:31] VITALS: BP 104/68; BP 140/78; BP 81/62; PULSE 108; PULSE 93; PULSE 98
[2022-10-09] MEDS: Acetaminophen 500 MG Tablet 1000 MG PO ×3 (05:37→20:49)
[2022-10-09 07:55] LABS: Bedside Glucose 317 mg/dL (74-106)
[2022-10-09] MEDS: Insulin Lispro 100 UNIT/ML INSULN.PEN 25 UNIT SC ×2 (08:14→12:18)
[2022-10-09] MEDS: Insulin Lispro 100 UNIT/ML INSULN.PEN SC (08:14)
[2022-10-09] MEDS: Insulin Glargine-YFGN 100 UNIT/ML Pen 40 UNIT SC (08:15)
[2022-10-09 09:15] VITALS: BP 120/68; PULSE 89; RESP 18; TEMP 37; O2SAT 95
[2022-10-09] MEDS: Pantoprazole Sodium 40 MG Tablet PO (09:21)
[2022-10-09] MEDS: Ezetimibe 10 MG Tablet PO (09:21)
--- NOTE | 2022-10-09 10:25 | CASEMGMT ---
Social Work SW met w/pt in room, reviewed prior level of function and anticipated discharge plan. PCP: Dr. Lanier Specialists: Dr. Maria and Dr. Hernandez--cardiology @ [place], Dr. Fuentes--pain management, Dr. Delacruz--endocrinology, Dr. Booth--urology Preferred pharmacy: [facility] in [place] Insurance: Medicare, [place], [employer] for prescriptions LNOK: Daughter Carmen, 2 sons, Sister Courtney LW/POA: Pt has not completed the documents, may be interested in completing at some point down the road Living arrangements: Pt lives home alone in one story home w/basement w/3 steps to enter. Independent w/ADLS, and IADLs and manages own meds and appts Transportation: Drives herself DME: Pt has shower chair, raised toilet seat, cane, walker, Freestyle glucose meter. HHC/SNF: Pt has had HHC, no SNF in past SW spoke w/pt about plan, she is in agreement for placement. SW gave list to pt via [facility] of senior care facilities in network w/insurance, in pt's preferred geographic area, and complete with quality and resource use data. SW asked pt to review list and SW will be back later to inquire where she would like a referral sent. Pt states understanding. Plan: SNF, facility TBD, SW to follow up later today to make referral. TREVOR Montague
[2022-10-09] MEDS: Venlafaxine XR 150 MG Capsule PO (10:37)
--- NOTE | 2022-10-09 11:17 | NURSING ---
Pacer check completed at this time.
[2022-10-09 12:40] LABS: Bedside Glucose 149 mg/dL (74-106)
--- NOTE | 2022-10-09 12:52 | CASEMGMT ---
Social Work This social organization professor following up with patient in room. Patient reports to have not been able to look over shelter list yet. This social organization professor stressing the importance of choosing a facility. Patient reports to have difficulty seeing. Patient agreeable to this social organization professor reading list out loud to patient. Patient choosing [facility] as preferred facility and request for this social organization professor to contact patient daughter, Carmen to update on discharge plan. This social organization professor communicating to patient that if patient is accepted to shelter that per Dr. Joseph patient is medically cleared and would discharge today, patient voiced understanding. Telephone call to Carmen, this social organization professor updated Carmen on above information. Carmen agreeable to discharge plan and reports to be comfortable transporting patient to shelter at time of discharge. PLAN: [facility], pending acceptance. Aubrey REINOSO, ESAS
[2022-10-09 15:23] VITALS: BP 123/74; BP 90/44; BP 95/62; PULSE 101; PULSE 110; PULSE 92; RESP 17; TEMP 37.1; O2SAT 95
[2022-10-09] MEDS: 0.9% Normal Saline 1,000 ML 999 ML IV (15:51)
[2022-10-09] MEDS: oxyCODONE 5 MG Tablet PO ×2 (15:51→23:28)
--- NOTE | 2022-10-09 16:38 | CASEMGMT ---
Social Work [facility], Clay to unit to assess patient. Clay reports that most likely will accept patient. Clay to confirm with clinical team and updated [facility] accordingly. This outreach and education social worker placed green sheet on chart in the event that patient is medically cleared and confirmed to be accepted by [facility]. Weekend outreach and education social worker to check Careport and updated nursing staff on unit. PLAN: [facility], pending acceptance. Aubrey REINOSO, ADRIANNA-S
--- NOTE | 2022-10-09 16:50 | PN.HOSP_ITS ---
Subjective Subjective Patient was seen and examined today, she still appears orthostatic and I have elected to give her fluids this afternoon and run maintenance IV. Patient has consented to go to a skilled care facility, personnel are coming from one today to evaluate her and possibly if her orthostatic blood pressure corrects tomorro w, she can be discharged to a skilled facility for inpatient rehab services. Objective Data Objective Data Vital Signs: Vital Signs Temp Pulse Resp BP Pulse Ox O2 Del Method 98.8 F 92 17 123/74 H 95 Room Air 10/09/22 15:23 10/09/22 15:23 10/09/22 15:23 10/09/22 15:23 10/09/22 15:23 10/09/22 15:23 Oxygen Delivery Method Room Air Weight: 80.7 kg Body Mass Index (BMI) 28.7 Intake & Output: Intake and Output for Last 24 Hours 10/07/22 10/08/22 10/09/22 23:59 23:59 23:59 Intake Total 2180 / 2180 1060 / 1060 Balance 2180 / 2180 1060 / 1060 Medical Nutrition Assessment Dietitian: Malnutrition Criteria Met Start: 10/09/22 12:17 Freq: Status: Active Protocol: Document 10/09/22 12:17 DAVE (Rec: 10/09/22 12:17 SLA [id number]) Nutrition Malnutrition Evidence of Malnutrition Exists Yes Malnutrition (severe): Acute Illness/Injury Evidenced By Suboptimal Energy Intake ( Severe),Weight Loss (Severe) Clinical Problem Acute Disease or Injury Related Malnutrition Etiology severe related to increased pain and decreased appetite Signs/Symptoms as evidenced by pt meeting <75 % of est nutritional needs and 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 Problem Altered Nutrient-Related Laboratory Values Etiology related to diabetes Signs/Symptoms as evidenced by gluc 275 Status Active Problem Recommendation Dietitian Recommendations/Changes Will change diet to 1800 julieta Cardiac diet Monitor need for ONS pending continued po intake/wt trends Available for diet education if warranted by pt Lab / Micro Data Result Diagrams: 10/08/22 14:00 10/08/22 14:00 Labs: Laboratory Results - last 24 hr 10/08/22 16:35: Vitamin D 25-Hydroxy 22.9 10/09/22 04:56: Cortisol 6.40 10/09/22 07:34: POC Glucose 317 H 10/09/22 12:16: POC Glucose 149 H Radiography Diagnostic Testing: Radiology Impression Echocardiogram 10/08/22 16:09 Interpretation Summary The estimated ejection fraction is 70 %. No evidence for diastolic dysfunction. Aortic sclerosis, no stenosis. Ordering Physician: Emmanuel Hidalgo Referring Physician: OLIVIER ACOSTA Performed By: Debbie Flores RCS Physical Exam Const alert, oriented x3, no apparent distress and average body habitus General Appearance: cooperative, well kempt and well developed Orientation / Consciousness: awake, oriented to person, oriented to place and oriented to time HEENT normocephalic, head/scalp atraumatic and moist oral mucous membranes Eyes PERRL, EOMs intact bilaterally and conjunctivae normal Neck supple, no JVD, thyroid normal and no carotid bruits General: trachea midline Resp normal respiratory effort, no retractions, no use of accessory muscles and clear to auscultation bilaterally Auscultation: Negative for rales, rhonchi or wheezes Cardio regular rate, regular rhythm, S1 normal heart sound, S2 normal heart sound, no murmurs, no rub and no gallops GI normal to inspection, nondistended, normoactive bowel sounds, soft to palpation, non-tender and non-distended Extremity no clubbing, cyanosis or edema Skin no rashes or lesions noted General Skin Exam: no breakdown Neuro oriented x3, CN's II-XII intact bilaterally, moves all extremities, no focal motor deficits and no sensory deficits noted Sensorium / Orientation: awake and alert Speech: speech normal Psych affect normal Assessment & Plan Assessment/Plan (1) Debility: PLAN: Plan 1. Syncopal episode-possibly secondary to orthostatic hypotension, patient will be given IV fluids, orthostatic blood pressure should be checked tomorrow again. 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 with history of vertebral fracture T12, [id number] care, medical course, prognosis, and recovery- patient will be seen by PT and OT during her hospitalization #4 spinal stenosis-continue PT and OT participation in her care #5 type 2 diabetes-blood sugars will be monitored, sliding scale insulin will be used to control blood sugars #6 sick sinus syndrome with insertion of permanent [id number]'s pacemaker interrogation today did not show any malignant arrhythmias or significant tachycardia #7 acute debility-patient has been accepted at an extended care facility ([facility]), she will be reevaluated tomorrow for discharge. #8 chronic kidney disease stage IIIb-secondary to type 2 diabetes-BMP will be monitored as necessary Total clinical time spent by myself addressing the patient's medical issues, reviewing all the data, and collaborating with patient's care team: 37 minutes Charges/Coding Visit Charges Inpatient E&M: 66793 Subs Hosp L2
--- NOTE | 2022-10-09 16:53 | CASEMGMT ---
Social Work Notified via Careport that patient is accepted to [facility]. This social media job titles updated Green Sheet that patient is able to discharge when medically cleared. Medical team updated as well. This social media job titles updated patient and patient daughter on above information, all agreeable to plan. PLAN: [facility], pending medical clearance. Aubrey REINOSO, ESAS
[2022-10-09 17:31] LABS: Bedside Glucose 97 mg/dL (74-106)
[2022-10-09] MEDS: 0.9% Saline Lock 10 ML Syringe IV (17:31)
[2022-10-09] MEDS: 0.9% Normal Saline 1,000 ML 75 ML IV (17:31)
[2022-10-09] MEDS: Polyethylene Glycol 3350 17 GM PACKET PO (20:49)
[2022-10-09 20:50] VITALS: PULSE 94
[2022-10-09] MEDS: Metoprolol(XL)Succ 25 MG Tablet PO (20:50)
[2022-10-09 20:54] VITALS: BP 117/74; PULSE 92; RESP 17; TEMP 36.7; O2SAT 96
[2022-10-09 23:03] LABS: Bacteria 0 SEEN /hpf (None Seen); Mucous, Urine 0 SEEN /hpf (<or=2+); Red Blood Cells-Urine 0 SEEN /hpf (0-5)
[2022-10-09 23:06] LABS: Color, Urine Yellow (Yellow); Glucose, Dipstick 250 mg/dl (Normal); Ketone-Dipstick Negative (Negative); Leukocyte Esterase-Dipstick 25 /ul (Negative); Nitrite-Dipstick Negative (Negative); Occult Blood-Urine Negative /ul (Negative); Protein-Dipstick 30 mg/dl (Negative); Specific Gravity, Urine 1.015 (1.002-1.030); Urine Bilirubin Dipstick Negative (Negative); Urine Clarity Clear (Clear); Urine Urobilinogen Normal (Normal)
[2022-10-09 23:11] LABS: Squamous Epithelial Cells - UA 0-5 SEEN /hpf (5-10); White Blood Cells 0-5 SEEN /hpf (0-5)
[2022-10-09 23:16] LABS: Bedside Glucose 274 mg/dL (74-106)
[2022-10-10] VITALS (8 sets, daily range): BP systolic 71–158; BP diastolic 52–80; PULSE 73–81; RESP 16–18; TEMP 36.7–36.8; O2SAT 96–98
[2022-10-10] MEDS: 0.9% Normal Saline 1,000 ML 75 ML IV (06:19)
[2022-10-10] MEDS: Insulin Lispro 100 UNIT/ML INSULN.PEN SC ×2 (08:38→17:29)
[2022-10-10] MEDS: Insulin Glargine-YFGN 100 UNIT/ML Pen 40 UNIT SC (08:38)
[2022-10-10] MEDS: Pantoprazole Sodium 40 MG Tablet PO (08:39)
[2022-10-10] MEDS: Insulin Lispro 100 UNIT/ML INSULN.PEN 25 UNIT SC (08:39)
[2022-10-10] MEDS: Venlafaxine XR 150 MG Capsule PO (08:39)
[2022-10-10] MEDS: Ezetimibe 10 MG Tablet PO (08:39)
[2022-10-10] MEDS: oxyCODONE 5 MG Tablet PO ×4 (08:40→21:56)
[2022-10-10 09:11] LABS: Bedside Glucose 268 mg/dL (74-106)
[2022-10-10] MEDS: Ibuprofen 600 MG Tablet PO (11:25)
[2022-10-10 11:35] LABS: Bedside Glucose 87 mg/dL (74-106)
[2022-10-10 12:46] LABS: Bedside Glucose 70 mg/dL (74-106)
[2022-10-10] MEDS: Acetaminophen 500 MG Tablet 1000 MG PO ×2 (14:46→21:56)
--- NOTE | 2022-10-10 15:53 | CASEMGMT ---
Social Work Note Per MD Cervantes patient is not medically cleared today but should be ready for D/C tomorrow. SW updated admissions staff at [facility] via [employer]. SW completed PASrr, copy of PASrr and results placed in patient's chart. Plan: [facility] when medically ready, green sheet on file Juanita REINOSO, ADRIANNA
[2022-10-10 16:45] LABS: Bedside Glucose 156 mg/dL (74-106)
--- NOTE | 2022-10-10 16:53 | PN.HOSP_ITS ---
Subjective Subjective Mrs. Mann is a 72-year-old white female who presented to the emergency department on 10/08/2022 with recurrent syncopal episodes. Over the last 2 days prior to presentation she has had 2 syncopal episodes and had several previously that had resulted in a compression fracture of her thoracic spine previously. Patient had no forewarning and went down. The day prior to admission she was going to the bathroom when it occurred and she fell and hit her head. The patient does have diabetes and has very labile blood sugars running from hypoglycemic episodes to severely hyperglycemic episodes. She has seen endoc rinology previously but is not following currently. This was in [place] and she was unable to get there. She does have a history of diabetic retinopathy and has difficulty visualizing her insulin when drawing. She was admitted to PCU and found to be markedly orthostatic positive from sitting to standing. She was given IV fluids but this has been persistent despite fluid repletion. It sounds as if she may have some autonomic dysfunction. Echocardiogram was done and shows an EF of 70% with no evidence of diastolic dysfunction and aortic sclerosis without stenosis. At the time of my evaluation in the a.m. of 10/10/2022 the patient has had labile blood sugars being low this morning but her overall blood sugars have been high throughout her hospital stay. Orthostatics remain positive with sitting to standing and she gets markedly symptomatic with this. Complains of ongoing back pain. She is following with pain management had recent kyphoplasty. Objective Data Objective Data Vital Signs: Vital Signs Temp Pulse Resp BP Pulse Ox O2 Del Method 98.1 F 81 16 133/68 H 96 Nasal Cannula 10/10/22 16:22 10/10/22 16:22 10/10/22 16:22 10/10/22 16:22 10/10/22 16:22 10/10/22 16:22 Oxygen Delivery Method Nasal Cannula Weight: 80.7 kg Body Mass Index (BMI) 28.7 Intake & Output: Intake and Output for Last 24 Hours 10/08/22 10/09/22 10/10/22 23:59 23:59 23:59 Intake Total 2179 / 2179 2188.75 / 2188.75 Output Total 300 / 300 Balance 2179 / 0 2059 1888.75 / 1888.75 Medical Nutrition Assessment Dietitian: Malnutrition Criteria Met Start: 10/09/22 12:17 Freq: Status: Active Protocol: Document 10/09/22 12:17 SLA (Rec: 10/09/22 12:17 SLA [id number]) Nutrition Malnutrition Evidence of Malnutrition Exists Yes Malnutrition (severe): Acute Illness/Injury Evidenced By Suboptimal Energy Intake ( Severe),Weight Loss (Severe) Clinical Problem Acute Disease or Injury Related Malnutrition Etiology severe related to increased pain and decreased appetite Signs/Symptoms as evidenced by pt meeting <75 % of est nutritional needs and 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 Altered Nutrient-Related Laboratory Values Etiology related to diabetes Signs/Symptoms as evidenced by gluc 275 Status Active Problem Recommendation Dietitian Recommendations/Changes Will change diet to 1800 julieta Cardiac diet Monitor need for ONS pending continued po intake/wt trends Available for diet education if warranted by pt Lab / Micro Data Result Diagrams: 10/08/22 14:00 10/08/22 14:00 Labs: Laboratory Results - last 24 hr 10/09/22 17:11: POC Glucose 97 10/09/22 22:45: POC Glucose 274 H 10/09/22 22:54: Urine Color Yellow, Urine Clarity Clear, Urine pH 6.0, Ur Specific [place] 1.015, Urine Protein 30 H, Urine Glucose (UA) 250 H, Urine Ketones Negative, Urine Occult Blood Negative, Urine Nitrite Negative, Urine Bilirubin Negative, Urine Urobilinogen Normal, Ur Leukocyte Esterase 25 H, Urine RBC 0 SEEN, Urine WBC 0-5 SEEN, Ur Squamous Epith Cells 0-5 SEEN, Urine Bacteria 0 SEEN, Urine Mucus 0 SEEN 10/10/22 08:25: POC Glucose 268 H 10/10/22 11:12: POC Glucose 87 10/10/22 12:26: POC Glucose 70 L 10/10/22 16:19: POC Glucose 156 H Physical Exam Const alert, oriented x3, no apparent distress, healthy appearing and well nourished Constitutional Narrative: Overweight, older, white female, sitting up in bed, nursing at bedside, patient appears comfortable and nontoxic at this time HEENT head/scalp atraumatic and moist oral mucous membranes Head and Scalp: normocephalic Resp normal respiratory effort, no retractions, no use of accessory muscles and clear to auscultation bilaterally Cardio regular rate, regular rhythm, S1 normal heart sound, S2 normal heart sound, no murmurs, no rub, no gallops and no clicks GI normal to inspection, nondistended, normoactive bowel sounds, soft to palpation and non-tender Extremity no clubbing, cyanosis or edema Extremity Narrative: 2+ pedal pulses Neuro oriented x3, moves all extremities and no focal motor deficits Speech: speech normal Psych affect normal Psych Narrative: Very pleasant, appropriately interactive Assessment & Plan Assessment/Plan (1) History of vertebral fracture: (2) S/P kyphoplasty: (3) Back pain: (4) Debility: (5) Syncope: (6) Orthostatic hypotension: PLAN: Plan Syncope secondary to orthostatic hypotension -Suspect ongoing orthostasis is related to autonomic dysfunction as result of her long-term diabetes -Echo is unremarkable -Start fludrocortisone 0.20 mg with a dose now than a.m. daily -Start midodrine 5 mg p.o. twice daily -Start bilateral lower extremity KALEB hose -Repeat orthostatic vitals tomorrow at 10 AM after medications are dosed -Once this has been resolved or at least treated adequately patient is okay for discharge to facility Thoracic compression fracture/back pain -Status post kyphoplasty -Pain management is following -Continue current pain medication -PT/OT at [facility] in [place] at discharge DM-2 -A1c on 09/21/2022 was 9.3 indicating poor control -Patient reports labile sugars at home and this has been demonstrated here -I initially increased her doses for hyperglycemia earlier today however she has had hypoglycemic episodes this afternoon -Insulin adjustments made continuing home Lantus and decreasing scheduled insulin to 15 units 3 times daily with sliding scale -Make referral to Dr. Delacruz for endocrinology follow-up in [place] after dischar Hyperlipidemia -Continue Zetia -Would recommend outpatient lipid profile and initiation of statin as patient is diabetic and per guidelines should be on a statin Hypertension -Continue metoprolol Diabetic retinopathy -Recommend continued outpatient follow-up GERD -Continue PPI Depression -Continue Effexor DVT prophylaxis -Start subcu enoxaparin CODE STATUS -Full code Charges/Coding Visit Charges Inpatient E&M: 17187 Subs Hosp L2
[2022-10-10] MEDS: Senna/Docusate Sodium 1 Tablet 2 TABLET PO (17:40)
[2022-10-10] MEDS: Fludrocortisone Acetate 0.1 MG Tablet 0.2 MG PO (18:32)
[2022-10-10] MEDS: Midodrine HCl 5 MG Tablet PO (18:32)
[2022-10-10] MEDS: Metoprolol(XL)Succ 25 MG Tablet PO (21:55)
[2022-10-10 22:20] LABS: Bedside Glucose 290 mg/dL (74-106)
[2022-10-11] VITALS (8 sets, daily range): BP systolic 74–139; BP diastolic 46–84; PULSE 72–103; RESP 16–18; TEMP 36.5–36.8; O2SAT 94–98
[2022-10-11] MEDS: oxyCODONE 5 MG Tablet PO ×4 (03:13→19:50)
[2022-10-11] MEDS: Acetaminophen 500 MG Tablet 1000 MG PO ×3 (06:32→21:28)
[2022-10-11] MEDS: Fludrocortisone Acetate 0.1 MG Tablet 0.2 MG PO ×2 (08:12→12:50)
[2022-10-11] MEDS: Pantoprazole Sodium 40 MG Tablet PO (08:12)
[2022-10-11] MEDS: Midodrine HCl 5 MG Tablet PO ×3 (08:13→16:47)
[2022-10-11] MEDS: Ezetimibe 10 MG Tablet PO (08:13)
[2022-10-11] MEDS: Venlafaxine XR 150 MG Capsule PO (08:13)
[2022-10-11] MEDS: Insulin Glargine-YFGN 100 UNIT/ML Pen 40 UNIT SC (08:13)
[2022-10-11 08:45] LABS: Bedside Glucose 237 mg/dL (74-106)
[2022-10-11 09:06] LABS: Absolute Lymphocyte Count 2.03 X10^3/uL (0.83-4.51); Absolute Neutrophil Count 5.2 X10^3/uL (2.0-7.7); Basophil# 0.06 X10^3/uL; Basophil% 0.7 % (0-1); Eosinophil# 0.38 X10^3/uL; Eosinophils% 4.5 % (0-5); Hematocrit 34.6 % (37-47); Hemoglobin 10.9 g/dL (12.0-15.0); Lymphocyte # 2.03 X10^3/ul (0.83-4.51); Lymphocyte % 23.8 % (19-41); Mean Corp Hgb Conc 31.5 g/dL (32-36); Mean Corpuscular Hgb 27.4 pg (27.0-32.0); Mean Corpuscular Volume 86.9 fL (81-99); Mean Platelet Vol. 8.7 fl (6.2-12.0); Monocyte# 0.72 X10^3/uL; Monocyte% 8.4 % (0-10); NRBC Flagged by Analyzer 0 % (0-5); Neutrophil # 5.24 X10^3/uL (2.7-7.7); Neutrophil % 61.4 % (47-70); Platelet Count 304 K/mm3 (150-450); RBC Distribution Width CV 13.8 % (11.6-14.6); RBC Distribution Width SD 43.9 fl (35.1-43.9); Red Blood Count 3.98 M/mm3 (4.2-5.4); White Blood Count 8.5 K/mm3 (4.4-11.0)
[2022-10-11 09:20] LABS: Anion Gap 9 (5-15); BUN 19 mg/dL (7-18); BUN/Creat Ratio 18.1 RATIO (10-20); Calcium,Total 8.7 mg/dL (8.5-10.1); Chloride 109 mmol/L (98-107); Creatinine, Serum 1.05 mg/dL (0.55-1.02); EST Glomerular Filtration Rate 55 mL/min (>60); Est Glom Filt Rate - Afr Amer 67 mL/min (>60); Estimated Creatinine Clearance 46.67 ml/min; Glucose 260 mg/dL (74-106); Potassium 3.5 mmol/L (3.5-5.1); Sodium Level 140 mmol/L (136-145)
[2022-10-11] MEDS: Insulin Lispro 100 UNIT/ML INSULN.PEN 15 UNIT SC ×3 (09:23→17:25)
[2022-10-11] MEDS: Enoxaparin 40 MG/0.4 ML Syringe SC (09:23)
[2022-10-11] MEDS: Insulin Lispro 100 UNIT/ML INSULN.PEN SC ×2 (09:23→12:07)
[2022-10-11 11:26] LABS: Bedside Glucose 233 mg/dL (74-106)
[2022-10-11 13:10] LABS: Bedside Glucose 73 mg/dL (74-106)
[2022-10-11 14:36] LABS: Bedside Glucose 118 mg/dL (74-106)
--- NOTE | 2022-10-11 15:08 | PCM.PN.HOSP ---
Subjective Subjective Patient reports that she has been less symptomatic with getting out of bed and standing and walking. Blood sugars have still been labile. She does follow with Dr. Delacruz as an outpatient. Objective Data Objective Data Vital Signs: Vital Signs Temp Pulse Resp BP Pulse Ox O2 Del Method 98.0 F 91 16 123/57 H 98 Room Air 10/11/22 10:45 10/11/22 10:45 10/11/22 10:45 10/11/22 10:45 10/11/22 10:45 10/11/22 10:45 Oxygen Delivery Method Room Air Weight: 80.7 kg Body Mass Index (BMI) 28.7 Intake & Output: Intake and Output for Last 24 Hours 10/09/22 10/10/22 10/11/22 23:59 23:59 23:59 Intake Total 2059 2548.75 / 2748.75 620 / 620 Output Total 300 / 300 Balance 2059 2248.75 / 2448.75 620 / 620 Medical Nutrition Assessment Dietitian: Malnutrition Criteria Met Start: 10/09/22 12:17 Freq: Status: Active Protocol: Document 10/09/22 12:17 SLA (Rec: 10/09/22 12:17 SLA [id number]) Nutrition Malnutrition Evidence of Malnutrition Exists Yes Malnutrition (severe): Acute Illness/Injury Evidenced By Suboptimal Energy Intake ( Severe),Weight Loss (Severe) Clinical Problem Acute Disease or Injury Related Malnutrition Etiology severe related to increased pain and decreased appetite Signs/Symptoms as evidenced by pt meeting <75 % of est nutritional needs and 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 Altered Nutrient-Related Laboratory Values Etiology related to diabetes Signs/Symptoms as evidenced by gluc 275 Status Active Problem Recommendation Dietitian Recommendations/Changes Will change diet to 1800 julieta Cardiac diet Monitor need for ONS pending continued po intake/wt trends Available for diet education if warranted by pt Lab / Micro Data Result Diagrams: 10/11/22 08:57 10/11/22 08:57 Labs: Laboratory Results - last 24 hr 10/10/22 16:19: POC Glucose 156 H 10/10/22 21:53: POC Glucose 290 H 10/11/22 08:11: POC Glucose 237 H 10/11/22 08:57: WBC 8.5, RBC 3.98 L, Hgb 10.9 L, Hct 34.6 L, MCV 86.9, MCH 27.4, MCHC 31.5 L, RDW Std Deviation 43.9, RDW Coeff of Yonathan 13.8, Plt Count 304, MPV 8.7, Immature Gran % (Auto) 1.200 H, Neut % (Auto) 61.4, Lymph % (Auto) 23.8, [place] % (Auto) 8.4, Eos % (Auto) 4.5, Baso % (Auto) 0.7, Absolute Neuts (auto) 5.2, Absolute Lymphs (auto) 2.03, Nucleated RBC % 0 10/11/22 08:57: Sodium 140, Potassium 3.5, Chloride 109 H, Carbon Dioxide 22.0, Anion Gap 9, BUN 19 H, Creatinine 1.05 H, Estim Creat Clear Calc 46.67, Est GFR (MDRD) Af Amer 67, Est GFR (MDRD) Non-Af 55 L, BUN/Creatinine Ratio 18.1, Glucose 260 H, Calcium 8.7 10/11/22 10:47: POC Glucose 233 H 10/11/22 12:51: POC Glucose 73 L 10/11/22 14:18: POC Glucose 118 H Physical Exam Const alert, oriented x3, no apparent distress, healthy appearing and well nourished Constitutional Narrative: Overweight, older, white female, sitting up in bed, nursing at bedside, patient appears comfortable and nontoxic at this time HEENT normocephalic, head/scalp atraumatic, hearing grossly normal bilaterally and moist oral mucous membranes Resp normal respiratory effort, no retractions, no use of accessory muscles and clear to auscultation bilaterally Auscultation: Negative for rales, rhonchi or wheezes Cardio regular rate, regular rhythm, S1 normal heart sound, S2 normal heart sound, no murmurs, no rub, no gallops and no clicks GI normal to inspection, nondistended, normoactive bowel sounds, soft to palpation and non-tender Extremity no clubbing, cyanosis or edema Extremity Narrative: 2+ pedal pulses Neuro oriented x3, moves all extremities and no focal motor deficits Speech: speech normal Psych affect normal Psych Narrative: Very pleasant, appropriately interactive Assessment & Plan Assessment/Plan (1) History of vertebral fracture: (2) S/P kyphoplasty: (3) Back pain: (4) Debility: (5) Syncope: (6) Orthostatic hypotension: PLAN: Plan Syncope secondary to orthostatic hypotension -Suspect ongoing orthostasis is related to autonomic dysfunction as result of her long-term diabetes -Echo is unremarkable -Symptoms with orthostasis seem to be better with the addition of medication however vitals are still positive -Increase fludrocortisone to 0.40 mg -Continue midodrine 5 mg p.o. but increase to 3 times daily -Continue bilateral KALEB hose and try to get thigh-high -Repeat orthostatic vitals tomorrow a.m. and assess for symptomatic orthostasis -Once this has been resolved or at least treated adequately patient is okay for discharge to facility [place] -Continue PT/OT -Likely related to orthostatic hypotension but could be contributed to blood sugar lability as well Thoracic compression fracture/back pain -Status post kyphoplasty -Pain management is following -Continue current pain medication -PT/OT at [facility] in [place] at discharge DM-2 -A1c on 09/21/2022 was 9.3 indicating poor control -Patient reports labile sugars at home and this has been demonstrated here -Insulin adjustments made continuing home Lantus and continue 3 times daily insulin at 15 units -Discontinue subcu insulin SSI -Patient follows with Dr. Delacruz at baseline Hyperlipidemia -Continue Zetia -Would recommend outpatient lipid profile and initiation of statin as patient is diabetic and per guidelines should be on a statin Hypertension -Continue metoprolol Diabetic retinopathy -Recommend continued outpatient follow-up GERD -Continue PPI Depression -Continue Effexor DVT prophylaxis -Continue subcu enoxaparin CODE STATUS -Full code Charges/Coding Visit Charges Inpatient E&M: 04952 Subs Hosp L2
[2022-10-11 17:35] LABS: Bedside Glucose 112 mg/dL (74-106)
[2022-10-11 17:45] LABS: Bedside Glucose 145 mg/dL (74-106)
--- NOTE | 2022-10-11 20:11 | NURSING ---
Previous Fentanyl patch removed and placed in RX destroyed with Charge nurse VIKA Gillespie as witness. New Fentanyl patch placed- see NOV.
[2022-10-11] MEDS: Metoprolol(XL)Succ 25 MG Tablet PO (21:30)
--- NOTE | 2022-10-11 21:30 | NURSING ---
Pt checked own blood sugar with her monitor, it was 185 at this time.
[2022-10-12] MEDS: oxyCODONE 5 MG Tablet PO ×3 (03:20→16:12)
[2022-10-12 03:30] VITALS: BP 134/83; PULSE 74; RESP 18; TEMP 36.5; O2SAT 94
[2022-10-12] MEDS: Acetaminophen 500 MG Tablet 1000 MG PO ×2 (05:00→16:13)
[2022-10-12 06:45] LABS: Absolute Lymphocyte Count 2.41 X10^3/uL (0.83-4.51); Absolute Neutrophil Count 5.8 X10^3/uL (2.0-7.7); Basophil# 0.07 X10^3/uL; Basophil% 0.7 % (0-1); Eosinophil# 0.42 X10^3/uL; Eosinophils% 4.4 % (0-5); Hematocrit 35.2 % (37-47); Hemoglobin 11.1 g/dL (12.0-15.0); Lymphocyte # 2.41 X10^3/ul (0.83-4.51); Lymphocyte % 25.2 % (19-41); Mean Corp Hgb Conc 31.5 g/dL (32-36); Mean Corpuscular Hgb 27.3 pg (27.0-32.0); Mean Corpuscular Volume 86.7 fL (81-99); Mean Platelet Vol. 9.1 fl (6.2-12.0); Monocyte# 0.74 X10^3/uL; Monocyte% 7.7 % (0-10); NRBC Flagged by Analyzer 0 % (0-5); Neutrophil # 5.81 X10^3/uL (2.7-7.7); Neutrophil % 60.8 % (47-70); Platelet Count 326 K/mm3 (150-450); RBC Distribution Width CV 14.2 % (11.6-14.6); RBC Distribution Width SD 44.5 fl (35.1-43.9); Red Blood Count 4.06 M/mm3 (4.2-5.4); White Blood Count 9.6 K/mm3 (4.4-11.0)
[2022-10-12 07:14] LABS: Anion Gap 7 (5-15); BUN 25 mg/dL (7-18); BUN/Creat Ratio 22.3 RATIO (10-20); Calcium,Total 8.7 mg/dL (8.5-10.1); Chloride 110 mmol/L (98-107); Creatinine, Serum 1.12 mg/dL (0.55-1.02); EST Glomerular Filtration Rate 51 mL/min (>60); Est Glom Filt Rate - Afr Amer 62 mL/min (>60); Estimated Creatinine Clearance 43.75 ml/min; Glucose 156 mg/dL (74-106); Potassium 3.5 mmol/L (3.5-5.1); Sodium Level 141 mmol/L (136-145)
[2022-10-12 09:20] VITALS: BP 125/76; PULSE 76; RESP 18; TEMP 36.9; O2SAT 98
[2022-10-12 09:50] VITALS: BP 100/85; BP 125/76; BP 127/55; PULSE 76; PULSE 85; PULSE 87
[2022-10-12] MEDS: Fludrocortisone Acetate 0.1 MG Tablet 0.4 MG PO (10:03)
[2022-10-12] MEDS: Midodrine HCl 5 MG Tablet PO ×2 (10:04→13:15)
[2022-10-12] MEDS: Pantoprazole Sodium 40 MG Tablet PO (10:04)
[2022-10-12] MEDS: Ezetimibe 10 MG Tablet PO (10:04)
[2022-10-12] MEDS: Venlafaxine XR 150 MG Capsule PO (10:04)
[2022-10-12] MEDS: Insulin Glargine-YFGN 100 UNIT/ML Pen 40 UNIT SC (10:05)
[2022-10-12] MEDS: Enoxaparin 40 MG/0.4 ML Syringe SC (10:05)
[2022-10-12 11:08] VITALS: O2SAT 94
[2022-10-12] MEDS: Insulin Lispro 100 UNIT/ML INSULN.PEN 8 UNIT SC (11:54)
--- NOTE | 2022-10-12 11:55 | PCM.DC.SUM ---
Providers Date of Admission: 10/09/22 Date of Discharge: 10/12/22 Primary Care Physician: Dr. Danya Lanier MD Consultations 10/08/22 16:02 Consult: Pain Management Routine Consulting Provider: Elizabeth Fuentes Reason for Consult: vertebral fxr EMERGENT Consult: No MD Notified: Yes Date Notified: 10/08/22 Time Notified: 16:13 Method of Notification: Answering Service Reason For Visit: SYNCOPE, BACK PAIN, S/P KYPHOPLASTY Diagnosis Discharge Diagnosis (1) History of vertebral fracture: Status: Acute Code(s): Z87.81 - Personal history of (healed) traumatic fracture (2) S/P kyphoplasty: Status: Acute Code(s): Z98.890 - Other specified postprocedural states (3) Back pain: Status: Acute Code(s): M54.9 - Dorsalgia, unspecified (4) Debility: Status: Acute Code(s): R53.81 - Other malaise (5) Syncope: Status: Acute Code(s): R55 - Syncope and collapse (6) Orthostatic hypotension: Status: Acute Code(s): I95.1 - Orthostatic hypotension Medications at Discharge Home Medications ezetimibe 10 mg tablet (Zetia) 10 mg PO DAILY . 05/31/19 D-Mannrose 1,000 mg PO BID UTI 08/03/22 ascorbate calcium (vitamin C) 500 mg tablet 500 mg PO DAILY SUPPLEMENT 08/03/22 probiotic 1 tab PO DAILY SUPPLEMENT 08/03/22 esomeprazole magnesium 40 mg capsule,delayed release 40 cap PO DAILY . 08/06/22 metoprolol succinate 25 mg tablet,extended release 24 hr 25 mg PO QHS BLOOD PRESSURE 08/06/22 venlafaxine 150 mg capsule,extended release 24 hr 150 cap PO DAILY DEPRESSION 08/06/22 cholecalciferol (vitamin D3) 50 mcg (2,000 unit) capsule (Vitamin D3) 2,000 unit PO DAILY SUPPLEMENT 08/31/22 estradiol 0.01% (0.1 mg/gram) vaginal cream 1 applic vaginal MOWEFR HORMONE 08/31/22 insulin glargine-yfgn 100 unit/mL (3 mL) subcutaneous pen 40 unit subcut DAILY DM 09/18/22 clindamycin HCl 150 mg capsule 150 mg PO BID ANTIBIOTIC 02/02/23 acetaminophen 500 mg tablet 1,000 mg PO Q8 #0 tabs 10/12/22 fentanyl 12 mcg/hr transdermal patch 12 mcg transdermal Q3D 1 day #1 ea 10/12/22 fludrocortisone 0.1 mg tablet 0.4 mg PO BREAKFAST #0 tabs 10/12/22 insulin aspart U-100 100 unit/mL subcutaneous solution (Novolog U-100 Insulin aspart) 8 unit (0.08 mL) subcut TID #70 mL 10/12/22 midodrine 5 mg tablet 5 mg PO TIDCM #30 tabs 10/12/22 oxycodone 5 mg tablet 5 mg PO Q4H PRN PRN Pain Score 4-10 1 day #6 tabs 10/12/22 sennosides 8.6 mg-docusate sodium 50 mg tablet (Stool Softener-Stimulant Laxative) 2 tab PO BID PRN constipation #0 tabs 10/12/22 Hospital Course Operations None Procedures 2-D Echocardiogram, EKG and - (CT cervical/thoracic/lumbar spine/CT brain) Summary of Care Provided Minutes Spent on Discharge: 38 Hospital Course: Mrs. Mann is a 72-year-old white female who presented to emergency department on 10/08/2022 with recurrent syncopal episodes. Over the 2 days prior to presentation she reported 2 syncopal episodes and had several previously that had resulted in a compression fracture in her thoracic spine. She had a kyphoplasty about 2 weeks ago for this and Dr. Fuentes has been following for pain management. She has had ongoing pain however this seems to be fairly well controlled. The day prior to admission she was going to the bathroom when her syncopal episode occurred and she fell and hit her head. The patient also has diabetes and appears to have very labile blood sugars running from hypoglycemic episodes to severely hyperglycemic episodes per discussion with her. She follows with Dr. Delacruz at baseline however initially we did not think she was following with endocrinology as she reported to us she was following with [facility] however the day after that she did say she was following with Dr. Delacruz. She was admitted to the PCU and found to be markedly orthostatic positive predominantly with sitting to standing. TSH was normal. Cortisol in the a.m. was normal. We obtain an echocardiogram which was performed on 10/08/2022 and she was found to have an EF of 70% with no evidence of diastolic dysfunction, aortic sclerosis without stenosis. She was monitored on telemetry throughout her hospital course and had no arrhythmias. We did note her blood sugars to be fairly tenuous. Predominantly her prandial sugars were issues therefore we decrease her prandial insulin dosing. By the time of discharge we had decreased her prandial insulin to 8 units 3 times daily and maintained her basal insulin at 40 units. I did discuss the changes with Dr. Delacruz and she indicated she would follow-up and that the patient has an appointment upcoming in November. With regards to her orthostatic hypotension, she was given multiple fluid boluses which did not resolve the situation. I highly suspect that she has autonomic dysfunction related to her ongoing diabetes. She did indicate that she had poor control when she was younger. We initiated KALEB hose thigh-high, started her on Florinef as well as midodrine 5 mg p.o. 3 times daily and her orthostasis did improve. Her orthostatic vital signs on the day of discharge showed a lying down blood pressure of 125/76, sitting was 127/55, standing was 100/85. This still is positive, however markedly better than she had been doing previously and she was much less symptomatic with these blood pressures. It does seem that she is improving and we feel that since she is going to a facility and going to be supervised we can discharge her at this time. As noted previously Dr. Delacruz is aware of the changes and plans to follow-up with her more extensively at her follow-up with her in November. I would recommend she get a BMP and a CBC in about 1 week and to continue following her blood sugars closely as she may need some subtle changes in her prandial regimen. She will need follow-up with her primary care physician within the next month, Dr. Fuentes within the next week, and Dr. Delacruz as scheduled in November. She was discharged to a nursing facility for ongoing therapy in stable condition on 10/12/2022. Discharge diagnoses: Syncope secondary to orthostatic hypotension--> highly suspect autonomic dysfunction Debility Falls Thoracic compression fracture/back pain -Status post kyphoplasty [id number] Hyperlipidemia Hypertension Diabetic retinopathy Diabetic neuropathy GERD Depression Physical Exam Narrative Patient with mild lightheadedness with getting up today however she states overall since starting the medication and having the KALEB hose on she feels overall better. No syncopal episodes while hospitalized. Blood sugars are better with changes in her insulin regimen. Const alert, oriented x3, no apparent distress, average body habitus, healthy appearing and well nourished Constitutional Narrative: Overweight, older, white female, sitting up in bed, patient appears comfortable and nontoxic at this time General Appearance: cooperative, comfortable, well kempt and well developed Orientation / Consciousness: awake, oriented to person, oriented to place and oriented to time Exam Limitations: no limitations Nutritional Appearance: overweight HEENT normocephalic, head/scalp atraumatic, hearing grossly normal bilaterally and moist oral mucous membranes HEENT Narrative: Mallampati 2, no thrush Eyes PERRL, EOMs intact bilaterally and conjunctivae normal Eyes Narrative: No scleral icterus Neck no lymphadenopathy, supple and no JVD Neck Narrative: Trachea midline, no thyroid enlargement Resp normal respiratory effort, no retractions, no use of accessory muscles and clear to auscultation bilaterally Auscultation: Negative for rales, rhonchi or wheezes Cardio regular rate, regular rhythm, S1 normal heart sound, S2 normal heart sound, no murmurs, no rub, no gallops and no clicks GI normal to inspection, nondistended, normoactive bowel sounds, soft to palpation and non-tender Extremity normal to inspection, full ROM and no clubbing, cyanosis or edema Extremity Narrative: 2+ pedal pulses Skin no rashes or lesions noted, no wounds, skin turgor normal and no jaundice Neuro oriented x3, CN's II-XII intact bilaterally, moves all extremities and no focal motor deficits Neuro Narrative: Mild bilateral lower extremity sensory changes related to diabetic neuropathy distal Sensorium / Orientation: awake and alert Speech: speech normal Psych affect normal Psych Narrative: Very pleasant, appropriately interactive Medical Records Data Medical Nutrition Assessment Dietitian: Malnutrition Criteria Met Start: 10/09/22 12:17 Freq: Status: Active Protocol: Document 10/09/22 12:17 DAVE (Rec: 10/09/22 12:17 DAVE [id number]) Nutrition Malnutrition Evidence of Malnutrition Exists Yes Malnutrition (severe): Acute Illness/Injury Evidenced By Suboptimal Energy Intake ( Severe),Weight Loss (Severe) Clinical Problem Acute Disease or Injury Related Malnutrition Etiology severe related to increased pain and decreased appetite Signs/Symptoms as evidenced by pt meeting <75 % of est nutritional needs and 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 Altered Nutrient-Related Laboratory Values Etiology related to diabetes Signs/Symptoms as evidenced by gluc 275 Status Active Problem Recommendation Dietitian Recommendations/Changes Will change diet to 1800 julieta Cardiac diet Monitor need for ONS pending continued po intake/wt trends Available for diet education if warranted by pt Weight / BMI Weight Weight: 80.7 kg Body Mass Index (BMI) 28.7 ABG / Lab / Microbiology Data Result Diagrams: 10/12/22 05:35 10/12/22 05:35 Laboratory: Laboratory Results - last 24 hr 10/11/22 12:51: POC Glucose 73 L 10/11/22 14:18: POC Glucose 118 H 10/11/22 16:47: POC Glucose 112 H 10/11/22 17:24: POC Glucose 145 H 10/12/22 05:35: WBC 9.6, RBC 4.06 L, Hgb 11.1 L, Hct 35.2 L, MCV 86.7, MCH 27.3, MCHC 31.5 L, RDW Std Deviation 44.5 H, RDW Coeff of Yonathan 14.2, Plt Count 326, MPV 9.1, Immature Gran % (Auto) 1.200 H, Neut % (Auto) 60.8, Lymph % (Auto) 25.2, [place] % (Auto) 7.7, Eos % (Auto) 4.4, Baso % (Auto) 0.7, Absolute Neuts (auto) 5.8, Absolute Lymphs (auto) 2.41, Nucleated RBC % 0 10/12/22 05:35: Sodium 141, Potassium 3.5, Chloride 110 H, Carbon Dioxide 24.0, Anion Gap 7, BUN 25 H, Creatinine 1.12 H, Estim Creat Clear Calc 43.75, Est GFR (MDRD) Af Amer 62, Est GFR (MDRD) Non-Af 51 L, BUN/Creatinine Ratio 22.3 H, Glucose 156 H, Calcium 8.7 D/C Instructions Discharge Diet: Low fat / Low cholesterol and 1800 Calorie Control Diet Meaningful Use Info Meaningful Use Diagnoses (Choose all that apply): None applicable Discharge Plan Admission Admit Date/Time: 10/09/22 15:53 Primary Reason for Your Visit: Syncope Attending Provider: Fozia Cervantes Primary Care Provider: Danya Lanier Consulting Providers: Elizabeth Fuentes ; Emmanuel Hidalgo ; Sergei Joseph Discharge Orders/Prescriptions Prescriptions: New fludrocortisone 0.1 mg Tablet 0.4 mg PO BREAKFAST Qty: 0 0RF fentanyl 12 mcg/hr Patch 72 Hour 12 mcg transdermal Q3D 1 Days Qty: 1 0RF midodrine 5 mg Tablet 5 mg PO TIDCM Qty: 30 0RF oxycodone 5 mg Tablet 5 mg PO Q4H PRN PRN (Reason: Pain Score 4-10) 1 Days Qty: 6 0RF sennosides-docusate sodium [Stool Softener-Stimulant Laxat] 8.6-50 mg Tablet 2 tab PO BID PRN (Reason: constipation) Qty: 0 0RF acetaminophen 500 mg Tablet 1,000 mg PO Q8 Qty: 0 0RF Continued ezetimibe [Zetia] 10 mg tablet 10 mg PO DAILY metoprolol succinate 25 mg tablet extended release 24 hr 25 mg PO QHS Label Comments: TAKE 1 TABLET BY MOUTH ONCE DAILY venlafaxine 150 mg capsule,extended release 24hr 150 cap PO DAILY esomeprazole magnesium 40 mg capsule,delayed release(DR/EC) 40 cap PO DAILY probiotic 1 tab PO DAILY ascorbate calcium (vitamin C) 500 mg tablet 500 mg PO DAILY D-Mannrose 1,000 mg PO BID Rx Instructions: 1000mg estradiol 0.01 % (0.1 mg/gram) cream 1 applic VAGINAL MOWEFR Label Comments: INSERT 1 GRAM VAGINALLY 3 TIMES A WEEK BEFORE BED cholecalciferol (vitamin D3) [Vitamin D3] 50 mcg (2,000 unit) capsule 2,000 unit PO DAILY Label Comments: TAKE 1 CAPSULE BY MOUTH ONCE DAILY insulin glargine-yfgn 100 unit/mL (3 mL) insulin pen 40 unit subcut DAILY clindamycin HCl 150 mg capsule 150 mg PO BID Changed insulin aspart U-100 [Novolog U-100 Insulin aspart] 100 unit/mL solution 8 unit subcut TID Qty: 70 0RF Discontinued nitrofurantoin monohyd/m-cryst 100 mg capsule 100 mg PO BID trimethoprim 100 mg tablet 100 mg PO DAILY Referrals / Follow Up: Elizabeth Fuentes MD [Med Staff - Active Staff] - Within 1 Week Danya Lanier MD [Primary Care Provider] - Within 1 Month Joe Delacruz MD [Med Staff - Courtesy Staff] - See Referral Note (As scheduled in November 2022) Disposition Disposition (needs filled in before D/C Order can be placed): Custodial Facility Charges/Coding Visit Charges Inpatient E&M: 74577 SNF Disch >30 Min
[2022-10-12 12:20] LABS: Bedside Glucose 259 mg/dL (74-106)
[2022-10-12 12:20] LABS: Bedside Glucose 140 mg/dL (74-106)
--- NOTE | 2022-10-12 12:22 | TREXTCAR_ITS ---
Diet Diet Order/Speech Therapy: 10/08/22 16:09 Diet: Cardiac: Calorie-Controlled Food consistency:: Regular Liquid Consistency:: Regular/Thin Dietary Modifications:: Cardiac / Heart Healthy How many daily calories?: 1800 calorie Routine Orders/Code Status Suppository Frequency: Daily PRN O2 Frequency: PRN Keep PO Greater than or Equal to (%): 92 Routine Lab Work: CBC and BMP Code Status: Full Code Therapies Weight Bearing: Full weight bearing Physical Therapy: Eval and Treat Occupational Therapy: Eval and Treat Problem/Diagnosis (1) History of vertebral fracture: Status: Acute Code(s): Z87.81 - Personal history of (healed) traumatic fracture (2) S/P kyphoplasty: Status: Acute Code(s): Z98.890 - Other specified postprocedural states (3) Back pain: Status: Acute Code(s): M54.9 - Dorsalgia, unspecified (4) Debility: Status: Acute Code(s): R53.81 - Other malaise (5) Syncope: Status: Acute Code(s): R55 - Syncope and collapse (6) Orthostatic hypotension: Status: Acute Code(s): I95.1 - Orthostatic hypotension Allergies/Procedures Done in Hospital Allergies morphine Allergy (Mild, Verified 09/18/22 08:39) Rash Penicillins Allergy (Mild, Verified 09/18/22 08:39) Rash Sulfa (Sulfonamide Antibiotics) Allergy (Mild, Verified 09/18/22 08:39) Rash Procedures: 2-D Echocardiogram and EKG Type of Care/Length of Stay Estimated LOS: Convalescent Care Less Than 30 days Type of Care Needed: Skilled Rehab Potential: Good Prognosis: Fair Additional Orders/Day of Discharge Day of Discharge: 10/12/22 Dietary and Speech Recommendations Dietitian Recommendations/Changes: Will change diet to 1800 julieta Cardiac diet Monitor need for ONS pending continued po intake/wt trends Available for diet education if warranted by pt Discharge Plan Admission Admit Date/Time: 10/09/22 15:53 Primary Reason for Your Visit: Syncope Attending Provider: Fozia Cervantes Primary Care Provider: Danya Lanier Consulting Providers: Elizabeth Fuentes ; Emmanuel Hidalgo ; Sergei Joseph Discharge Orders/Prescriptions Prescriptions: New fludrocortisone 0.1 mg Tablet 0.4 mg PO BREAKFAST Qty: 0 0RF fentanyl 12 mcg/hr Patch 72 Hour 12 mcg transdermal Q3D 1 Days Qty: 1 0RF midodrine 5 mg Tablet 5 mg PO TIDCM Qty: 30 0RF oxycodone 5 mg Tablet 5 mg PO Q4H PRN PRN (Reason: Pain Score 4-10) 1 Days Qty: 6 0RF sennosides-docusate sodium [Stool Softener-Stimulant Laxat] 8.6-50 mg Tablet 2 tab PO BID PRN (Reason: constipation) Qty: 0 0RF acetaminophen 500 mg Tablet 1,000 mg PO Q8 Qty: 0 0RF Continued ezetimibe [Zetia] 10 mg tablet 10 mg PO DAILY metoprolol succinate 25 mg tablet extended release 24 hr 25 mg PO QHS Label Comments: TAKE 1 TABLET BY MOUTH ONCE DAILY venlafaxine 150 mg capsule,extended release 24hr 150 cap PO DAILY esomeprazole magnesium 40 mg capsule,delayed release(DR/EC) 40 cap PO DAILY probiotic 1 tab PO DAILY ascorbate calcium (vitamin C) 500 mg tablet 500 mg PO DAILY D-Mannrose 1,000 mg PO BID Rx Instructions: 1000mg estradiol 0.01 % (0.1 mg/gram) cream 1 applic VAGINAL MOWEFR Label Comments: INSERT 1 GRAM VAGINALLY 3 TIMES A WEEK BEFORE BED cholecalciferol (vitamin D3) [Vitamin D3] 50 mcg (2,000 unit) capsule 2,000 unit PO DAILY Label Comments: TAKE 1 CAPSULE BY MOUTH ONCE DAILY insulin glargine-yfgn 100 unit/mL (3 mL) insulin pen 40 unit subcut DAILY clindamycin HCl 150 mg capsule 150 mg PO BID Changed insulin aspart U-100 [Novolog U-100 Insulin aspart] 100 unit/mL solution 8 unit subcut TID Qty: 70 0RF Discontinued nitrofurantoin monohyd/m-cryst 100 mg capsule 100 mg PO BID trimethoprim 100 mg tablet 100 mg PO DAILY Referrals / Follow Up: Elizabeth Fuentes MD [Med Staff - Active Staff] - Within 1 Week Danya Lanier MD [Primary Care Provider] - Within 1 Month Joe Delacruz MD [Med Staff - Courtesy Staff] - See Referral Note (As scheduled in November 2022) Disposition Disposition (needs filled in before D/C Order can be placed): Group Home Facility
--- NOTE | 2022-10-12 12:59 | CASEMGMT ---
Social Work Per physician pt is ready for discharge today. Discharge orders and PASRR sent to [facility] via [facility]. Phone call to pt dgt Carmen who states she will transport and will be here at 5pm. SW met with pt and updated on discharge plan. Pt agreeable. [facility] and bedside nurse notified of discharge time. Disposition: [facility], skilled level of care. CHRIS Mora
--- NOTE | 2022-10-12 14:36 | PHA.DC.MR ---
Pharmacy Service has performed discharge medication reconciliation for this patient. The patient's discharge medication list was reviewed for discrepancies and discrepancies were resolved. Home Medications ezetimibe 10 mg tablet (Zetia) 10 mg PO DAILY . 05/31/19 D-Mannrose 1,000 mg PO BID UTI 08/03/22 ascorbate calcium (vitamin C) 500 mg tablet 500 mg PO DAILY SUPPLEMENT 08/03/22 probiotic 1 tab PO DAILY SUPPLEMENT 08/03/22 esomeprazole magnesium 40 mg capsule,delayed release 40 cap PO DAILY . 08/06/22 metoprolol succinate 25 mg tablet,extended release 24 hr 25 mg PO QHS BLOOD PRESSURE 08/06/22 venlafaxine 150 mg capsule,extended release 24 hr 150 cap PO DAILY DEPRESSION 08/06/22 cholecalciferol (vitamin D3) 50 mcg (2,000 unit) capsule (Vitamin D3) 2,000 unit PO DAILY SUPPLEMENT 08/31/22 estradiol 0.01% (0.1 mg/gram) vaginal cream 1 applic vaginal MOWEFR HORMONE 08/31/22 insulin glargine-yfgn 100 unit/mL (3 mL) subcutaneous pen 40 unit subcut DAILY DM 09/18/22 clindamycin HCl 150 mg capsule 150 mg PO BID ANTIBIOTIC 10/08/22 acetaminophen 500 mg tablet 1,000 mg PO Q8 #0 tabs 10/12/22 fentanyl 12 mcg/hr transdermal patch 12 mcg transdermal Q3D 1 day #1 ea 10/12/22 fludrocortisone 0.1 mg tablet 0.4 mg PO BREAKFAST #0 tabs 10/12/22 insulin aspart U-100 100 unit/mL subcutaneous solution (Novolog U-100 Insulin aspart) 8 unit (0.08 mL) subcut TID #70 mL 10/12/22 midodrine 5 mg tablet 5 mg PO TIDCM #30 tabs 10/12/22 oxycodone 5 mg tablet 5 mg PO Q4H PRN PRN Pain Score 4-10 1 day #6 tabs 10/12/22 sennosides 8.6 mg-docusate sodium 50 mg tablet (Stool Softener-Stimulant Laxative) 2 tab PO BID PRN constipation #0 tabs 10/12/22
[2022-10-12 16:00] VITALS: BP 158/90; PULSE 90; RESP 18; TEMP 36.5; O2SAT 98
== END 2022-10-12 17:07 | disposition skilled nursing facility (03) | DRG 74 ==
LOC: ED 15:31 → PCU 16:03
PROVIDERS: Internal Medicine; Emergency Provider Emergency Medicine; PCP Student in an Organized Health Care Education/Training Program; Visit Provider Internal Medicine
DX: E11.43 Type 2 diabetes mellitus with diabetic autonomic (poly)neuropathy (principal); I49.5 Sick sinus syndrome; E11.22 Type 2 diabetes mellitus with diabetic chronic kidney disease; E11.311 Type 2 diabetes mellitus with unspecified diabetic retinopathy with macular edema; E11.65 Type 2 diabetes mellitus with hyperglycemia; N18.32 Chronic kidney disease, stage 3b; E11.39 Type 2 diabetes mellitus with other diabetic ophthalmic complication; Z79.4 Long term (current) use of insulin; I95.1 Orthostatic hypotension; E78.5 Hyperlipidemia, unspecified; I12.9 Hypertensive chronic kidney disease with stage 1 through stage 4 chronic kidney disease, or unspecified chronic kidney disease; M48.00 Spinal stenosis, site unspecified; K21.9 Gastro-esophageal reflux disease without esophagitis; M54.9 Dorsalgia, unspecified; Z79.01 Long term (current) use of anticoagulants; Z95.0 Presence of cardiac pacemaker; Z79.2 Long term (current) use of antibiotics; R53.81 Other malaise; F32.A Depression, unspecified; Z82.5 Family history of asthma and other chronic lower respiratory diseases; Z87.81 Personal history of (healed) traumatic fracture; R29.6 Repeated falls; Z86.73 Personal history of transient ischemic attack (TIA), and cerebral infarction without residual deficits; Z98.890 Other specified postprocedural states
CPT/HCPCS: 36415; 70450; 72125; 72128; 72131; 80048; 81001; 82306; 82533; 82962; 84484; 85025; 87426; 93005; 93306; 97110; 97162; 97166; 97530; 97535; 97802; 99285; J7030; J7040; A4216

== ENCOUNTER → 2023-06-29 | Outpatient (CLI) | payer MEDICARE, BC, SELFPAY ==
--- NOTE | 2023-06-29 07:20 | MRI_ITS ---
STUDY: MRI LUMBAR SPINE WITHOUT CONTRAST REASON FOR EXAM: Female, 73 years old. BACK PAIN TECHNIQUE: Standardized fat and water weighted pulse sequences were obtained in the sagittal and axial planes. COMPARISON: MRI of the thoracic spine dated June 29, 2023. CT of the lumbar spine dated October 08, 2022 FINDINGS: Prior kyphoplasty related changes and chronic compression deformities redemonstrated at T11, T12, and L1. Postkyphoplasty edema versus subacute fracture edema of the L1 vertebral body noted. Additional subacute compression fracture deformity of the L3 and vertebral body which is loss 50-60% of its original height. This is also a new finding since the October 08, 2022 CT of the lumbar spine exam. A mild acute compression fracture of the T7 vertebral body is present with diffuse edema throughout the vertebral body and in the pedicles and mild loss of height at approximately 10-15%. No significant retropulsion is present. No visualized epidural fluid collection. No visualized lytic or blastic lesions of the bony structures. No evidence of osteomyelitis. Normal lumbar lordosis. There is no substantial scoliosis. Normal conus medullaris that terminates at the L1-2: Moderate disc space narrowing with minimal posterior annular bulging Normal bilateral facet joints. Normal central canal and bilateral lateral recesses. Normal bilateral intervertebral neural foramina. L2-3: Diffuse disc desiccation with minimal posterior disc space narrowing and slight annular bulging. Mild facet joint hypertrophy. Normal central canal and bilateral lateral recesses. Normal bilateral intervertebral neural foramina. L3-4: Diffuse disc desiccation with mild posterior disc space narrowing and annular bulging. Superimposed subligamentous inferior shallow disc extrusion. Mild central canal stenosis. Mild facet joint and ligament of flavum hypertrophy. Normal bilateral intervertebral neural foramina. L4-5: Redemonstration of a large Schmorl''s node. Anterolisthesis of L4 and L5 of 3 mm. Moderate disc space narrowing with diffuse disc bulging. Mild to moderate bilateral foraminal stenosis with nerve root impingement. No visualized pars defects. Mild central canal stenosis. Mild facet joint hypertrophy. L5-S1: Normal endplates. Diffuse disc desiccation with mild disc space narrowing but no significant bulging or herniation of the disc posteriorly. Normal bilateral facet joints. Normal central canal and bilateral lateral recesses. Normal bilateral intervertebral neural foramina. Normal visualized sacral ala. Normal visualized paraspinous soft tissue structures. MRI/Spine Lumbar (Routine) IMPRESSION: 1. Postkyphoplasty edema versus subacute fracture edema of the L1 vertebral body noted. Additional subacute compression fracture deformity of the L3 and vertebral body which is loss 50-60% of its original height. This is also a new finding since the October 08, 2022 CT of the lumbar spine exam. 2. A mild acute compression fracture of the T7 vertebral body is present with diffuse edema throughout the vertebral body and in the pedicles and mild loss of height at approximately 10-15%. No significant retropulsion is present. No visualized epidural fluid collection. 3. No visualized lytic or blastic lesions of the bony structures. No evidence of osteomyelitis. 4. Multilevel degenerative changes, as described above. Electronically Signed: Fernando Giang MD at 16:15 EDT ,
--- NOTE | 2023-06-29 07:20 | MRI_ITS ---
STUDY: MRI THORACIC SPINE WITHOUT CONTRAST REASON FOR EXAM: Female, 73 years old. BACK PAIN, PREV KYPHOPLASTY TECHNIQUE: Standardized fat and water weighted pulse sequences were obtained in the sagittal and axial planes. COMPARISON: CT of the thoracic spine dated June 29, 2023. MRI the lumbar spine dated June 29, 2023. FINDINGS: Normal kyphosis of the thoracic spine. There is no substantial scoliosis. Prior kyphoplasty related changes and chronic compression deformities redemonstrated at T11, T12, and L1. Postkyphoplasty edema versus subacute fracture edema of the L1 vertebral body noted. A mild acute compression fracture of the T7 vertebral body is present with diffuse edema throughout the vertebral body and in the pedicles and mild loss of height at approximately 10-15%. No significant retropulsion is present. No visualized epidural fluid collection. No visualized lytic or blastic lesions of the bony structures. No evidence of osteomyelitis. T1-2, T2-3, T3-4, T4-5, T5-6, T6-7, T7-8, T8-9, T9-10, T10-11, T11-12: Disc desiccation is present at all levels as well as mild to moderate disc space narrowing, slight annular bulging, and mild endplate spurring. Mild central canal stenosis is present at T9-T10 due to a diffuse disc bulge without cord compression. The central canal is otherwise widely patent at the remaining levels. The intervertebral neural foramina are within normal limits at the visualized levels. No critical foraminal stenosis with nerve root compression is seen. Normal central canal and intervertebral neural foramina at the corresponding levels.Degeneration and spurring noted at the costovertebral margins at multiple levels. Normal visualized thoracic cord. Normal conus medullaris that terminates at the T12-L1 level. Signal abnormality and heterogeneity is seen in the distal aspect of the cervical cord but it is not clear if this is a true finding or related to motion artifact which is obvious through this region. This can be further assessed with MRI of the cervical spine. The soft tissue structures are unremarkable. MRI/Spine Thoracic (Routine) IMPRESSION: 1. A mild acute compression fracture of the T7 vertebral body is present with diffuse edema throughout the vertebral body and in the pedicles and mild loss of height at approximately 10-15%. No significant retropulsion is present. No visualized epidural fluid collection. No visualized lytic or blastic lesions of the bony structures. No evidence of osteomyelitis. 2. Prior kyphoplasty related changes and chronic compression deformities redemonstrated at T11, T12, and L1. Postkyphoplasty edema versus subacute fracture edema of the L1 vertebral body noted. 3. Signal abnormality and heterogeneity is seen in the distal aspect of the cervical cord but it is not clear if this is a true finding or related to motion artifact which is obvious through this region. This can be further assessed with MRI of the cervical spine. 4. Multilevel degenerative changes of the thoracic spine. Electronically Signed: Fernando Giang MD at 15:40 EDT ,
[2023-06-29 08:23] VITALS: BP 139/55; PULSE 76; RESP 18; O2SAT 92
[2023-06-29 08:35] VITALS: BP 131/55; PULSE 76; O2SAT 88
[2023-06-29 08:47] VITALS: BP 127/54; PULSE 73; O2SAT 92
[2023-06-29 08:58] VITALS: BP 131/55; PULSE 79; O2SAT 89
[2023-06-29 09:08] VITALS: BP 129/55; PULSE 80; O2SAT 91
== END | disposition home or self-care (01) ==
LOC: MRI 07:17
PROVIDERS: PCP Student in an Organized Health Care Education/Training Program
DX: M54.6 Pain in thoracic spine (principal)
CPT/HCPCS: 72146; 72148

== ENCOUNTER → 2023-10-18 | Outpatient (CLI) | payer MEDICARE, BC, SELFPAY ==
[2023-10-18 14:10] LABS: Amphetamine Urine VISTA NEGATIVE (<1000 ng/mL); Barbiturate Urine VISTA NEGATIVE (< 200 ng/mL); Benzodiazepine Urine VISTA NEGATIVE (< 200 ng/mL); Cocaine Urine VISTA NEGATIVE (< 300 ng/mL); Ecstacy Urine VISTA NEGATIVE (< 500 ng/mL); Methadone Urine VISTA NEGATIVE (< 300 ng/mL); PCP Urine VISTA NEGATIVE (< 25 ng/mL); THC Urine VISTA NEGATIVE (< 50 ng/mL); Vista UDS pH Range 5
== END | disposition home or self-care (01) ==
LOC: LAB 10:41
PROVIDERS: PCP Student in an Organized Health Care Education/Training Program; Referring Provider Anesthesiology Pain Medicine; Visit Provider Anesthesiology Pain Medicine
DX: F11.20 Opioid dependence, uncomplicated (principal)
CPT/HCPCS: 80307

== ENCOUNTER → 2024-04-05 | Outpatient (REF) | payer MEDICARE, BC, SELFPAY ==
[2024-04-05 07:24] LABS: Absolute Lymphocyte Count 3.08 X10^3/uL (0.83-4.51); Absolute Neutrophil Count 6.8 X10^3/uL (2.0-7.7); Basophil# 0.08 X10^3/uL; Basophil% 0.7 % (0-1); Eosinophils% 5.8 % (0-5); Hematocrit 41.1 % (37-47); Hemoglobin 13.2 g/dL (12.0-15.0); Lymphocyte # 3.08 X10^3/ul (0.83-4.51); Lymphocyte % 25.7 % (19-41); Mean Corp Hgb Conc 32.1 g/dL (32-36); Mean Corpuscular Hgb 26.9 pg (27.0-32.0); Mean Corpuscular Volume 83.9 fL (81-99); Mean Platelet Vol. 9.5 fl (6.2-12.0); Monocyte# 1.24 X10^3/uL; Monocyte% 10.3 % (0-10); NRBC Flagged by Analyzer 0 % (0-5); Neutrophil # 6.76 X10^3/uL (2.7-7.7); Neutrophil % 56.3 % (47-70); Platelet Count 378 K/mm3 (150-450); RBC Distribution Width CV 13.2 % (11.6-14.6); RBC Distribution Width SD 40.5 fl (35.1-43.9)
[2024-04-05 07:46] LABS: Hemoglobin A1c 9.9 % (3.8-5.6)
[2024-04-05 08:15] LABS: ALB/GLOB Ratio 0.6 RATIO (0.9-2.4); AST(SGOT) 18 U/L (15-37); Alanine Aminotransfer ALT/SGPT 24 U/L (13-56); Albumin, Serum 2.8 g/dL (3.2-5.0); Alkaline Phosphatase 152 U/L (45-117); Anion Gap 6 (5-15); BUN 26 mg/dL (7-18); BUN/Creat Ratio 18.3 RATIO (10-20); Calcium,Total 10.2 mg/dL (8.5-10.1); Chloride 104 mmol/L (98-107); Cholesterol 236 mg/dL (200); Creatinine, Serum 1.42 mg/dL (0.55-1.02); EST Glomerular Filtration Rate 39 mL/min (>60); Est Glom Filt Rate - Afr Amer 47 mL/min (>60); Glucose 98 mg/dL (74-106); High Density Lipoprotein 40 mg/dL; Potassium 3.9 mmol/L (3.5-5.1); Protein, Total 7.8 g/dL (6.4-8.2); Sodium Level 136 mmol/L (136-145); Triglycerides 219 mg/dL; Very Low Density Lipoprotein 44 mg/dL (5-40)
[2024-04-05 10:06] LABS: Vitamin D,25 Hydroxy 43.3 ng/mL
== END ==
LOC: OLS.WHLEAS 05:00
PROVIDERS: PCP Student in an Organized Health Care Education/Training Program; Visit Provider Internal Medicine
DX: I12.9 Hypertensive chronic kidney disease with stage 1 through stage 4 chronic kidney disease, or unspecified chronic kidney disease (principal); G91.2 (Idiopathic) normal pressure hydrocephalus; E11.22 Type 2 diabetes mellitus with diabetic chronic kidney disease; J45.909 Unspecified asthma, uncomplicated; N18.9 Chronic kidney disease, unspecified; E55.9 Vitamin D deficiency, unspecified
CPT/HCPCS: 36415; 80053; 80061; 82306; 83036; 85025

== ENCOUNTER → 2024-04-06 | Outpatient (REF) | payer MEDICARE, SELFPAY | LOC: OLS.WHL 08:50 | PROVIDERS: PCP Student in an Organized Health Care Education/Training Program; Referring Provider Nurse Practitioner Adult Health; Visit Provider Nurse Practitioner Adult Health | DX: R52 Pain, unspecified (principal) ==

== ENCOUNTER → 2024-04-25 05:00 | Outpatient (REF) | payer MEDICARE, BC, SELFPAY ==
[2024-04-25 08:22] LABS: Absolute Lymphocyte Count 3.32 X10^3/uL (0.83-4.51); Absolute Neutrophil Count 6.6 X10^3/uL (2.0-7.7); Basophil# 0.06 X10^3/uL; Basophil% 0.5 % (0-1); Eosinophil# 0.77 X10^3/uL; Eosinophils% 6.5 % (0-5); Hemoglobin 12.5 g/dL (12.0-15.0); Lymphocyte # 3.32 X10^3/ul (0.83-4.51); Lymphocyte % 28.2 % (19-41); Mean Corp Hgb Conc 31.3 g/dL (32-36); Mean Corpuscular Hgb 26.4 pg (27.0-32.0); Mean Corpuscular Volume 84.6 fL (81-99); Mean Platelet Vol. 9.6 fl (6.2-12.0); Monocyte# 0.89 X10^3/uL; Monocyte% 7.6 % (0-10); NRBC Flagged by Analyzer 0 % (0-5); Neutrophil # 6.58 X10^3/uL (2.7-7.7); Neutrophil % 55.8 % (47-70); POSITIVE MORPHOLOGY YES; Platelet Count 382 K/mm3 (150-450); RBC Distribution Width CV 13.1 % (11.6-14.6); RBC Distribution Width SD 40.5 fl (35.1-43.9); Red Blood Count 4.73 M/mm3 (4.2-5.4); White Blood Count 11.8 K/mm3 (4.4-11.0)
[2024-04-25 08:31] LABS: Anion Gap 7 (5-15); BUN 26 mg/dL (7-18); BUN/Creat Ratio 18.6 RATIO (10-20); Calcium,Total 10.5 mg/dL (8.5-10.1); Chloride 109 mmol/L (98-107); EST Glomerular Filtration Rate 39 mL/min (>60); Est Glom Filt Rate - Afr Amer 48 mL/min (>60); Glucose 123 mg/dL (74-106); Potassium 3.7 mmol/L (3.5-5.1); Sodium Level 139 mmol/L (136-145)
== END ==
LOC: OLS.WHLEAS 05:00
PROVIDERS: PCP Student in an Organized Health Care Education/Training Program; Visit Provider Internal Medicine
DX: I12.9 Hypertensive chronic kidney disease with stage 1 through stage 4 chronic kidney disease, or unspecified chronic kidney disease (principal); N18.9 Chronic kidney disease, unspecified
CPT/HCPCS: 36415; 80048; 85025

== ENCOUNTER → 2024-05-09 05:00 | Outpatient (REF) | payer MEDICARE, BC, SELFPAY ==
[2024-05-09 08:50] LABS: Absolute Lymphocyte Count 2.97 X10^3/uL (0.83-4.51); Absolute Neutrophil Count 5.5 X10^3/uL (2.0-7.7); Basophil# 0.06 X10^3/uL; Basophil% 0.6 % (0-1); Eosinophil# 0.77 X10^3/uL; Eosinophils% 7.4 % (0-5); Hematocrit 42.9 % (37-47); Hemoglobin 13.3 g/dL (12.0-15.0); Lymphocyte # 2.97 X10^3/ul (0.83-4.51); Lymphocyte % 28.7 % (19-41); Mean Corpuscular Hgb 25.9 pg (27.0-32.0); Mean Corpuscular Volume 83.6 fL (81-99); Mean Platelet Vol. 10.1 fl (6.2-12.0); Monocyte# 0.94 X10^3/uL; Monocyte% 9.1 % (0-10); NRBC Flagged by Analyzer 0 % (0-5); Neutrophil # 5.51 X10^3/uL (2.7-7.7); Neutrophil % 53.2 % (47-70); Platelet Count 292 K/mm3 (150-450); RBC Distribution Width CV 13.5 % (11.6-14.6); RBC Distribution Width SD 41.3 fl (35.1-43.9); Red Blood Count 5.13 M/mm3 (4.2-5.4); White Blood Count 10.4 K/mm3 (4.4-11.0)
[2024-05-09 09:09] LABS: Color, Urine Yellow (Yellow); Glucose, Dipstick 1000 mg/dl (Normal); Ketone-Dipstick Negative (Negative); Leukocyte Esterase-Dipstick 500 /ul (Negative); Nitrite-Dipstick Negative (Negative); Occult Blood-Urine 25 /ul (Negative); Protein-Dipstick 15 mg/dl (Negative); Urine Bilirubin Dipstick Negative (Negative); Urine Clarity Cloudy (Clear); Urine Urobilinogen Normal (Normal)
[2024-05-09 09:36] LABS: Anion Gap 8 (5-15); BUN 23 mg/dL (7-18); BUN/Creat Ratio 17.7 RATIO (10-20); Calcium,Total 9.9 mg/dL (8.5-10.1); Chloride 105 mmol/L (98-107); EST Glomerular Filtration Rate 43 mL/min (>60); Est Glom Filt Rate - Afr Amer 52 mL/min (>60); Glucose 118 mg/dL (74-106); Potassium 3.9 mmol/L (3.5-5.1); Sodium Level 137 mmol/L (136-145)
== END ==
LOC: OLS.WHLEAS 05:00
PROVIDERS: PCP Student in an Organized Health Care Education/Training Program; Visit Provider Internal Medicine
DX: I12.9 Hypertensive chronic kidney disease with stage 1 through stage 4 chronic kidney disease, or unspecified chronic kidney disease (principal); N18.9 Chronic kidney disease, unspecified
CPT/HCPCS: 36415; 80048; 81002; 85025; 87086; 87088

== ENCOUNTER → 2024-05-19 05:00 | Outpatient (REF) | payer MEDICARE, BC, SELFPAY ==
[2024-05-19 07:26] LABS: Anion Gap 6 (5-15); BUN 27 mg/dL (7-18); BUN/Creat Ratio 19.7 RATIO (10-20); Calcium,Total 10.3 mg/dL (8.5-10.1); Chloride 108 mmol/L (98-107); Creatinine, Serum 1.37 mg/dL (0.55-1.02); EST Glomerular Filtration Rate 40 mL/min (>60); Est Glom Filt Rate - Afr Amer 49 mL/min (>60); Glucose 182 mg/dL (74-106); Sodium Level 138 mmol/L (136-145)
== END ==
LOC: OLS.WHLEAS 05:00
PROVIDERS: PCP Student in an Organized Health Care Education/Training Program; Visit Provider Internal Medicine
DX: Z87.440 Personal history of urinary (tract) infections (principal)
CPT/HCPCS: 36415; 80048

== ENCOUNTER → 2024-06-06 | Outpatient (REF) | payer MEDICARE, BC, SELFPAY ==
[2024-06-06 09:18] LABS: Absolute Lymphocyte Count 3.83 X10^3/uL (0.83-4.51); Absolute Neutrophil Count 10.2 X10^3/uL (2.0-7.7); Basophil# 0.13 X10^3/uL; Basophil% 0.8 % (0-1); Eosinophil# 0.56 X10^3/uL; Eosinophils% 3.5 % (0-5); Hematocrit 45.2 % (37-47); Lymphocyte # 3.83 X10^3/ul (0.83-4.51); Lymphocyte % 23.7 % (19-41); Mean Corpuscular Hgb 25.8 pg (27.0-32.0); Mean Corpuscular Volume 83.2 fL (81-99); Mean Platelet Vol. 10.1 fl (6.2-12.0); Monocyte# 1.25 X10^3/uL; Monocyte% 7.7 % (0-10); NRBC Flagged by Analyzer 0 % (0-5); Neutrophil # 10.18 X10^3/uL (2.7-7.7); Neutrophil % 62.9 % (47-70); Platelet Count 373 K/mm3 (150-450); RBC Distribution Width CV 14.6 % (11.6-14.6); RBC Distribution Width SD 43.8 fl (35.1-43.9); Red Blood Count 5.43 M/mm3 (4.2-5.4); White Blood Count 16.2 K/mm3 (4.4-11.0)
[2024-06-06 09:39] LABS: Anion Gap 7 (5-15); BUN 31 mg/dL (7-18); BUN/Creat Ratio 22.1 RATIO (10-20); Calcium,Total 10.8 mg/dL (8.5-10.1); Chloride 108 mmol/L (98-107); EST Glomerular Filtration Rate 39 mL/min (>60); Est Glom Filt Rate - Afr Amer 48 mL/min (>60); Glucose 204 mg/dL (74-106); Sodium Level 138 mmol/L (136-145)
== END ==
LOC: OLS.WHLEAS 05:00
PROVIDERS: PCP Student in an Organized Health Care Education/Training Program; Visit Provider Internal Medicine
DX: I12.9 Hypertensive chronic kidney disease with stage 1 through stage 4 chronic kidney disease, or unspecified chronic kidney disease (principal); E11.22 Type 2 diabetes mellitus with diabetic chronic kidney disease; N18.9 Chronic kidney disease, unspecified
CPT/HCPCS: 36415; 80048; 85025

== ENCOUNTER → 2024-06-07 05:00 | Outpatient (REF) | payer MEDICARE, BC, SELFPAY ==
[2024-06-07 07:57] LABS: Glucose 133 mg/dL (74-106)
== END ==
LOC: OLS.WHLEAS 05:00
PROVIDERS: PCP Student in an Organized Health Care Education/Training Program; Visit Provider Internal Medicine
DX: E11.9 Type 2 diabetes mellitus without complications (principal)
CPT/HCPCS: 36415; 82947

== ENCOUNTER → 2024-06-15 | Outpatient (REF) | payer MEDICARE, BC, SELFPAY ==
[2024-06-15 08:21] LABS: Absolute Neutrophil Count 7.7 X10^3/uL (2.0-7.7); Basophil# 0.07 X10^3/uL; Basophil% 0.6 % (0-1); Eosinophil# 0.39 X10^3/uL; Eosinophils% 3.3 % (0-5); Hematocrit 43.7 % (37-47); Hemoglobin 13.3 g/dL (12.0-15.0); Lymphocyte % 22.7 % (19-41); Mean Corp Hgb Conc 30.4 g/dL (32-36); Mean Corpuscular Hgb 25.3 pg (27.0-32.0); Mean Corpuscular Volume 83.2 fL (81-99); Mean Platelet Vol. 10.1 fl (6.2-12.0); Monocyte# 0.96 X10^3/uL; Monocyte% 8.1 % (0-10); NRBC Flagged by Analyzer 0 % (0-5); Neutrophil # 7.69 X10^3/uL (2.7-7.7); Neutrophil % 64.4 % (47-70); Platelet Count 337 K/mm3 (150-450); RBC Distribution Width SD 45.7 fl (35.1-43.9); Red Blood Count 5.25 M/mm3 (4.2-5.4); White Blood Count 11.9 K/mm3 (4.4-11.0)
== END ==
LOC: OLS.WHLEAS 05:00
PROVIDERS: PCP Student in an Organized Health Care Education/Training Program; Visit Provider Internal Medicine
DX: D72.829 Elevated white blood cell count, unspecified (principal); I12.9 Hypertensive chronic kidney disease with stage 1 through stage 4 chronic kidney disease, or unspecified chronic kidney disease; E11.22 Type 2 diabetes mellitus with diabetic chronic kidney disease; N18.9 Chronic kidney disease, unspecified
CPT/HCPCS: 85025

== ENCOUNTER → 2024-07-11 | Outpatient (REF) | payer MEDICARE, BC, SELFPAY ==
[2024-07-11 08:49] LABS: Absolute Lymphocyte Count 3.06 X10^3/uL (0.83-4.51); Absolute Neutrophil Count 7.4 X10^3/uL (2.0-7.7); Basophil# 0.07 X10^3/uL; Basophil% 0.6 % (0-1); Eosinophil# 0.54 X10^3/uL; Eosinophils% 4.4 % (0-5); Hematocrit 43.6 % (37-47); Hemoglobin 13.9 g/dL (12.0-15.0); Lymphocyte # 3.06 X10^3/ul (0.83-4.51); Lymphocyte % 25.1 % (19-41); Mean Corp Hgb Conc 31.9 g/dL (32-36); Mean Corpuscular Hgb 26.1 pg (27.0-32.0); Monocyte# 1.05 X10^3/uL; Monocyte% 8.6 % (0-10); NRBC Flagged by Analyzer 0 % (0-5); Neutrophil # 7.35 X10^3/uL (2.7-7.7); Neutrophil % 60.5 % (47-70); Platelet Count 351 K/mm3 (150-450); RBC Distribution Width CV 15.9 % (11.6-14.6); Red Blood Count 5.32 M/mm3 (4.2-5.4); White Blood Count 12.2 K/mm3 (4.4-11.0)
[2024-07-11 09:12] LABS: Vitamin D,25 Hydroxy 47.2 ng/mL
[2024-07-11 09:48] LABS: AST(SGOT) 14 U/L (15-37); Alanine Aminotransfer ALT/SGPT 9 U/L (13-56); Albumin, Serum 2.8 g/dL (3.2-5.0); Alkaline Phosphatase 120 U/L (45-117); Anion Gap 8 (5-15); BUN 27 mg/dL (7-18); BUN/Creat Ratio 20.9 RATIO (10-20); Bilirubin, Direct 0.14 mg/dL (0.00-0.30); Calcium,Total 10.1 mg/dL (8.5-10.1); Chloride 106 mmol/L (98-107); Cholesterol 129 mg/dL (200); Creatinine, Serum 1.29 mg/dL (0.55-1.02); EST Glomerular Filtration Rate 43 mL/min (>60); Est Glom Filt Rate - Afr Amer 52 mL/min (>60); Globulin 4.7 g/dL (2.2-4.2); Glucose 64 mg/dL (74-106); High Density Lipoprotein 42 mg/dL; Potassium 3.7 mmol/L (3.5-5.1); Protein, Total 7.5 g/dL (6.4-8.2); Sodium Level 138 mmol/L (136-145); Triglycerides 160 mg/dL; Very Low Density Lipoprotein 32 mg/dL (5-40)
[2024-07-11 12:19] LABS: Hemoglobin A1c 7.7 % (3.8-5.6)
== END ==
LOC: OLS.WHLEAS 05:00
PROVIDERS: PCP Student in an Organized Health Care Education/Training Program; Visit Provider Internal Medicine
DX: I12.9 Hypertensive chronic kidney disease with stage 1 through stage 4 chronic kidney disease, or unspecified chronic kidney disease (principal); E11.22 Type 2 diabetes mellitus with diabetic chronic kidney disease; N18.9 Chronic kidney disease, unspecified; J45.909 Unspecified asthma, uncomplicated; E55.9 Vitamin D deficiency, unspecified
CPT/HCPCS: 36415; 80048; 80061; 80076; 82306; 83036; 85025

== ENCOUNTER → 2024-08-08 | Outpatient (REF) | payer MEDICARE, BC, SELFPAY ==
[2024-08-08 06:55] LABS: Mucous, Urine 0 SEEN /hpf (<or=2+); Red Blood Cells-Urine 0 SEEN /hpf (0-5); Squamous Epithelial Cells - UA 0 SEEN /hpf (5-10)
[2024-08-08 07:20] LABS: Absolute Lymphocyte Count 3.56 X10^3/uL (0.83-4.51); Absolute Neutrophil Count 9.1 X10^3/uL (2.0-7.7); Basophil# 0.08 X10^3/uL; Basophil% 0.5 % (0-1); Eosinophil# 0.71 X10^3/uL; Eosinophils% 4.8 % (0-5); Hematocrit 43.4 % (37-47); Lymphocyte # 3.56 X10^3/ul (0.83-4.51); Lymphocyte % 24.2 % (19-41); Mean Corp Hgb Conc 32.3 g/dL (32-36); Mean Corpuscular Hgb 26.4 pg (27.0-32.0); Mean Corpuscular Volume 81.7 fL (81-99); Mean Platelet Vol. 9.4 fl (6.2-12.0); Monocyte# 1.09 X10^3/uL; Monocyte% 7.4 % (0-10); NRBC Flagged by Analyzer 0 % (0-5); Neutrophil # 9.12 X10^3/uL (2.7-7.7); Neutrophil % 61.9 % (47-70); Platelet Count 307 K/mm3 (150-450); RBC Distribution Width CV 15.9 % (11.6-14.6); RBC Distribution Width SD 46.3 fl (35.1-43.9); Red Blood Count 5.31 M/mm3 (4.2-5.4); White Blood Count 14.7 K/mm3 (4.4-11.0)
[2024-08-08 07:50] LABS: AST(SGOT) 12 U/L (15-37); Alanine Aminotransfer ALT/SGPT 9 U/L (13-56); Alkaline Phosphatase 123 U/L (45-117); Anion Gap 9 (5-15); BUN 17 mg/dL (7-18); BUN/Creat Ratio 15.5 RATIO (10-20); Bilirubin, Direct 0.12 mg/dL (0.00-0.30); Calcium,Total 9.4 mg/dL (8.5-10.1); Chloride 107 mmol/L (98-107); Cholesterol 134 mg/dL (200); EST Glomerular Filtration Rate 52 mL/min (>60); Est Glom Filt Rate - Afr Amer 63 mL/min (>60); Globulin 4.1 g/dL (2.2-4.2); Glucose 92 mg/dL (74-106); High Density Lipoprotein 39 mg/dL; Potassium 4.1 mmol/L (3.5-5.1); Protein, Total 7.1 g/dL (6.4-8.2); Sodium Level 139 mmol/L (136-145); Triglycerides 170 mg/dL; Very Low Density Lipoprotein 34 mg/dL (5-40)
[2024-08-08 08:12] LABS: Color, Urine Yellow (Yellow); Glucose, Dipstick 1000 mg/dl (Normal); Ketone-Dipstick Negative (Negative); Leukocyte Esterase-Dipstick 500 /ul (Negative); Nitrite-Dipstick Negative (Negative); Occult Blood-Urine 50 /ul (Negative); Protein-Dipstick 30 mg/dl (Negative); Specific Gravity, Urine 1.025 (1.002-1.030); Urine Bilirubin Dipstick Negative (Negative); Urine Clarity Cloudy (Clear); Urine Urobilinogen Normal (Normal)
[2024-08-08 08:18] LABS: White Blood Cells 50-100 SEEN /hpf (0-5)
[2024-08-08 08:19] LABS: Bacteria 1+ /hpf (None Seen)
[2024-08-08 08:29] LABS: Vitamin D,25 Hydroxy 45.3 ng/mL
[2024-08-08 09:17] LABS: Hemoglobin A1c 7.5 % (3.8-5.6)
== END ==
LOC: OLS.WHLEAS 05:00
PROVIDERS: PCP Student in an Organized Health Care Education/Training Program; Visit Provider Internal Medicine
DX: I12.9 Hypertensive chronic kidney disease with stage 1 through stage 4 chronic kidney disease, or unspecified chronic kidney disease (principal); G91.2 (Idiopathic) normal pressure hydrocephalus; E11.22 Type 2 diabetes mellitus with diabetic chronic kidney disease; J45.909 Unspecified asthma, uncomplicated; J98.4 Other disorders of lung; N18.9 Chronic kidney disease, unspecified; Z87.440 Personal history of urinary (tract) infections
CPT/HCPCS: 36415; 80048; 80061; 80076; 81001; 82306; 83036; 85025; 87077; 87086; 87088

== ENCOUNTER → 2024-09-13 05:00 | Outpatient (REF) | payer MEDICARE, MEDICAID, SELFPAY ==
[2024-09-13 06:15] LABS: Absolute Lymphocyte Count 3.92 X10^3/uL (0.83-4.51); Absolute Neutrophil Count 8.1 X10^3/uL (2.0-7.7); Basophil# 0.09 X10^3/uL; Basophil% 0.6 % (0-1); Eosinophil# 0.97 X10^3/uL; Eosinophils% 6.8 % (0-5); Hematocrit 43.7 % (37-47); Lymphocyte # 3.92 X10^3/ul (0.83-4.51); Lymphocyte % 27.4 % (19-41); Mean Corpuscular Hgb 26.8 pg (27.0-32.0); Mean Corpuscular Volume 83.7 fL (81-99); Mean Platelet Vol. 9.5 fl (6.2-12.0); Monocyte# 1.11 X10^3/uL; Monocyte% 7.7 % (0-10); NRBC Flagged by Analyzer 0 % (0-5); Neutrophil # 8.14 X10^3/uL (2.7-7.7); Neutrophil % 56.8 % (47-70); Platelet Count 347 K/mm3 (150-450); RBC Distribution Width CV 15.9 % (11.6-14.6); Red Blood Count 5.22 M/mm3 (4.2-5.4); White Blood Count 14.3 K/mm3 (4.4-11.0)
[2024-09-13 06:31] LABS: AST(SGOT) 10 U/L (15-37); Alanine Aminotransfer ALT/SGPT 12 U/L (13-56); Alkaline Phosphatase 115 U/L (45-117); Anion Gap 6 (5-15); BUN 17 mg/dL (7-18); BUN/Creat Ratio 15.5 RATIO (10-20); Bilirubin, Direct 0.17 mg/dL (0.00-0.30); Calcium,Total 9.7 mg/dL (8.5-10.1); Chloride 108 mmol/L (98-107); Cholesterol 134 mg/dL (200); EST Glomerular Filtration Rate 52 mL/min (>60); Est Glom Filt Rate - Afr Amer 63 mL/min (>60); Globulin 4.1 g/dL (2.2-4.2); Glucose 78 mg/dL (74-106); High Density Lipoprotein 38 mg/dL; Potassium 4.1 mmol/L (3.5-5.1); Protein, Total 7.1 g/dL (6.4-8.2); Sodium Level 141 mmol/L (136-145); Triglycerides 180 mg/dL; Very Low Density Lipoprotein 36 mg/dL (5-40)
[2024-09-13 07:48] LABS: Hemoglobin A1c 7.2 % (3.8-5.6)
== END ==
LOC: OLS.WHLEAS 05:00
PROVIDERS: PCP Student in an Organized Health Care Education/Training Program; Visit Provider Internal Medicine
DX: I12.9 Hypertensive chronic kidney disease with stage 1 through stage 4 chronic kidney disease, or unspecified chronic kidney disease (principal)
CPT/HCPCS: 36415; 80048; 80061; 80076; 82306; 83036; 85025

== ENCOUNTER 2025-01-24 05:00 | Outpatient (REF) | payer MEDICARE, MEDICAID, SELFPAY ==
[2025-01-24 07:26] LABS: Hemoglobin A1c 8.1 % (<=5.6)
== END 2025-01-24 23:59 ==
LOC: OLS.WHLEAS 05:00
PROVIDERS: PCP Student in an Organized Health Care Education/Training Program; Visit Provider Internal Medicine
DX: E11.22 Type 2 diabetes mellitus with diabetic chronic kidney disease (principal); G91.2 (Idiopathic) normal pressure hydrocephalus; I12.9 Hypertensive chronic kidney disease with stage 1 through stage 4 chronic kidney disease, or unspecified chronic kidney disease; N18.9 Chronic kidney disease, unspecified
CPT/HCPCS: 36415; 83036

== ENCOUNTER → 2025-03-21 05:40 | Outpatient (REF) | payer MEDICARE, MEDICAID, SELFPAY ==
--- OUTSIDE RECORDS SUMMARY | 2025-03-21 07:04 | XMS RPT_ITS | CCD ---
Author Organization [facility] Care Team Providers Care Medical Record Specialist Name Role Phone Behzad Mcintyre A Unavailable [phone] Angelina Lopez Unavailable Unavailable Brown, Angelina Unavailable Unavailable Brown, Angelina Unavailable Unavailable Brown, Angelina Unavailable Unavailable Whitaker, Behzad W Unavailable Unavailable Mimi Estrada Unavailable Unavailable Whitaker, Behzad W Unavailable Unavailable Whitaker, Behzad W Unavailable Unavailable Mimi Estrada Unavailable Unavailable Whitaker, Behzad W Unavailable Unavailable Whitaker, Behzad W Unavailable Unavailable Mimi Estrada Unavailable Unavailable VaccBehzad alexandre Primary Care Provider CECILIA CAMPOS Attending Unavailable VACCBEHZAD ALEXANDRE A Primary Care Unavailable VaccBehzad alexandre Primary Care Provider Mimi Estrada Primary Care Provider Constance Bull Unavailable Unavailable Whitaker II, Behzad Unavailable Unavailable Mimi Estrada Unavailable Unavailable Patience Salcedo Unavailable Unavailable Azalea West Unavailable Unavailable Mimi Estrada PA-C Primary Care Provider Mimi Estrada Unavailable Unavailable Unavailable Olivier Acosta MD Primary Care Provider [phone] Mimi Estrada Unavailable Dyana Coleman Unavailable Unavailable OLIVIER ACOSTA Primary Care Unavailable THEE RIVERA Attending Unava ilable Mimi Estrada PA-C Primary Care Provider Crow FRAZIER, [place] S Unavailable Olivier Acosta MD Primary Care Provider Cecilia Campos MD Unavailable Mimi Estrada PA-C Primary Care Provider Marcy Maria CNP Unavailable Dr. Olivier Acosta Primary Care Provider Lenard Dickerson Attending Provider Unavailable Dr. Olivier Acosta Referring Provider ANDRE Huddleston Attending Provider Olivier Acosta MD Primary Care Provider [phone] Cecilia Campos MD Unavailable Dr. Lolis Smith Emergency Provider Dr. Isabell Hanson Attending Provider Dr. Isabell Hanson Admit Provider Dr. Isabell Hanson Other Provider Dr. Fozia Cervantes Attending Provider Dr. Fozia Cervantes Other Provider MD Charanjit Facundo Emergency Provider Dr. Prabhakar Murry Admit Provider Dr. Prabhakar Murry Attending Provider Dr. Prabhakar Murry Other Provider Dr. Emmanuel Hidalgo Attending Provider Dr. Emmanuel Hidalgo Other Provider Dr. Mahamed Tipton Attending Provider Dr. Mahamed Tipton Other Provider Dr. Penny Ellis Attending Provider Dr. Penny Ellis Other Provider Dr. Devyn Meyers Emergency Provider Dr. Penny Ellis Admit Provider Dr. Anaid Steele Other Provider Dr. Kayode Warren Attending Provider Dr. Thee Patton Attending Provider Dr. Thee Patton Other Provider Dr. Toni Del Valle Attending Provider Dr. Penny Ellis Referring Provider Vero Jordan Attending Provider Unavailable Dr. Paresh Andersen Emergency Provider Dr. Emmanuel Hidalgo Admit Provider Dr. Olivier Acosta Primary Care Provider Lenard Dickerson Attending Provider Unavailable Dr. Olivier Acosta Referring Provider ANDRE Huddleston Attending Provider Dr. Lolis Smith Emergency Provider Dr. Isabell Hanson Attending Provider Dr. Isabell Hanson Admit Provider Dr. Isabell Hanson Other Provider Dr. Fozia Cervantes Attending Provider Dr. Fozia Cervantes Other Provider MD Facundo Donohue Emergency Provider Dr. Prabhakar Murry Admit Provider Dr. Prabhakar Murry Attending Provider Dr. Prabhakar uMrry Other Provider Dr. Emmanuel Hidalgo Attending Provider Dr. Emmanuel Hidalgo Other Provider Dr. Mahamed Tipton Attending Provider Dr. Mahamed Tipton Other Provider Dr. Penny Ellis Attending Provider Dr. Penny Ellis Other Provider Dr. Devyn Meyers Emergency Provider [phone] Penny Ellis Admit Provider Dr. Anaid Steele Other Provider Briana, Dr. Headley Attending Provider Dr. Toni Del Valle Attending Provider Dr. Penny Ellis Referring Provider Dr. Thee Patton Attending Provider Dr. Thee Patton Other Provider Vero Jordan Attending Provider Unavailable Dr. Paresh Andersen Emergency Provider Dr. Emmanuel Hidalgo Admit Provider Dr. Cecile Flower Attending Provider Dr. Elizabeth Fuentes Other Provider Dr. Henna Joseph Attending Provider Dr. Henna Joseph Other Provider Mimi Estrada PA-C Primary Care Provider Crow MAGNETIC PROSPECTING OPERATOR, Marcy S Unavailable Suzi, MsJacobo Small Attending [facility], Ms. Mimi Sierra [facility] Olivier Pastrana Primary Care Provider Dr. Olivier Acosta Referring Provider [phone] Veor Jordan Attending Provider Unavailable Day RN, Ofelia Unavailable Unavailable Cecilia Campos MD Unavailable Allegra Calzada PA-C Unavailable [phone] Radha Hubbard DO Unavailable Radha Hubbard DO Unavailable Dr. Olivier Acosta Primary Care Provider Dr. Andrae Sterling Attending Provider Dr. Andrae Sterling Referring Provider HUBBARD, RADHA N. Attending Unavailable KALISETTI, OLIVIER Primary Care Unavailable KALISETTI, OLIVIER Primary Care Unavailable KALISETTI, OLIVIER Referring Unavailable DAY, CALLIE VERAS Attending Unavailable KALISETTI, OLIVIER Primary Care Unavailable ELIECER HILL Admitting Unavailable ELIECER HILL Referring Unavailable KALISETTI, OLIVIER Primary Care Unavailable DAY, CALLIE VERAS Admitting Unavailable DAY, CALLIETC VERAS Referring Unavailable GHINDABROOKLYN Attending Unavailab le KALISETTI, OLIVIER Primary Care Unavailable GHINDABROOKLYN Attending Unavailab le KALISETTI, OLIVIER Primary Care Unavailable ELIECER HILL Attending Unavailable KALISETTI, OLIVIER Primary Care Unavailable POORNIMA FERNANDEZ Attending Unavailable KALISETTI, OLIVIER Primary Care Unavailable ELIECER HILL Attending Unavailable KALISETTI, OLIVIER Primary Care Unavailable KOTA ESTRELLA Attending Unavail able CHE BATISTA Attending Unavail able KALISETTI, OLIVIER Primary Care Unavailable KALISETTI, OLIVIER Primary Care Unavailable GREER BENITEZ Attending Unavailable RADHA HUBBARD NJacobo Attending Unavailable KALISETTI, OLIVIER Referring Unavailable KALISETTI, OLIVIER Primary Care Unavailable KALISETTI, OLIVIER Primary Care Unavailable POORNIMA FERNANDEZ Attending Unavailable KALISETTI, OLIVIER Primary Care Unavailable ELIECER HILL Attending Unavailable KALISETTI, OLIVIER Primary Care Unavailable ELIECER HILL Admitting Unavailable ELIECER HILL Referring Unavailable KALISETTI, OLIVIER Primary Care Unavailable RADHA HUBBARD Attending Unavailable RADHA HUBBARD NJacobo Referring Unavailable KALISETTI, OLIVIER Primary Care Unavailable RADHA HUBBARD NJacobo Referring Unavailable RADHA HUBBARD NJacobo Attending Unavailable KALISETTI, OLIVIER Primary Care Unavailable BROOKLYN LYNN Attending Unavailab le GHINDABROOKLYN Referring Unavailab le KALISETTI, OLIVIER Primary Care Unavailable BROOKLYN LYNN Attending Unavailab le GHINDBROOKLYN Ivy Referring Unavailab le KALISETTI, OLIVIER Primary Care Unavailable RADHA HUBBARD NJacobo Attending Unavailable RADHA HUBBARD NJacobo Referring Unavailable RADHA HUBBARD NJacobo Attending Unavailable KALISETTI, OLIVIER Primary Care Unavailable RADHA HUBBARD. Referring Unavailable RADHA HUBBARD. Attending Unavailable KALISETTI, OLIVIER Primary Care Unavailable RADHA HUBBARD. Referring Unavailable KALISETTI, OLIVIER Primary Care Unavailable TE STILES Attending Unavailable TAD CASTANO Admitting Unavailable H AND V, OPG Consulting Unavailable PHYSICIANS, [facility] ENDOCRINOLOG[facility] Consulting Un available LEILA BANUELOS Attending Unavailable [facility] Consulting Unavai lable KALISETTI, OLIVIER Primary Care Unavailable THEE CEDILLO Admitting Unavailab le ANA HERNANDEZ Attending Unavailable KALISETTI, OLIVIER Primary Care Unavailable [facility] Consulting Unavai lable LAKISHA BASROM Attending Unavailable KALISETTI, OLIVIER Primary Care Unavailable CALVIN BAKER Admitting Unavailable Shetgeri DO, Vipul Unavailable Unavailab le Shetgeri DO, Vipul Unavailable Unavailab le KIEARN, LUISANA Y. Attending Unavailable KALISETTI, OLIVIER Primary Care Unavailable KALISETTI, OLIVIER Primary Care Unavailable KIERAN, LUISANA Y. Attending Unavailable KALISETTI, OLIVIER Primary Care Unavailable SYSTEM, PROVIDER NOT IN Referring Unavaila ble SYSTEM, PROVIDER NOT IN Attending Unavaila ble KALISETTI, OLIVIER Primary Care Unavailable SYSTEM, PROVIDER NOT IN Attending Unavaila ble SYSTEM, PROVIDER NOT IN Referring Unavaila ble KALISETTI, OLIVIER Primary Care Unavailable SYSTEM, PROVIDER NOT IN Attending Unavaila ble SYSTEM, PROVIDER NOT IN Referring Unavaila ble KALISETTI, OLIVIER Primary Care Unavailable SYSTEM, PROVIDER NOT IN Attending Unavaila ble SYSTEM, PROVIDER NOT IN Referring Unavaila ble KALISETTI, OLIVIER Primary Care Unavailable FU, LUISANA Y. Attending Unavailable KIERAN, LUISANA Y. Attending Unavailable KALISETTI, OLIVIER Primary Care Unavailable SHAHNAZ MEDINA MD Admitting Unavailable OLIVIER ACOSTA MD Referring Unavailable OLIVIER ACOSTA MD Consulting Unavailable SHAHNAZ MEDINA MD Attending Unavailable SHAHNAZ MEDINA MD Primary Care Unavailable PROVIDER, UNKNOWN Consulting Unavailable PROVIDER, UNKNOWN Consulting Unavailable OLIVIER ACOSTA MD Admitting Unavailable OLIVIER ACOSTA MD Primary Care Unavailable OLIVIER ACOSTA MD Attending Unavailable OLIVIER ACOSTA MD Consulting Unavailable PROVIDER, UNKNOWN Consulting Unavailable PROVIDER, UNKNOWN Consulting Unavailable OLIVIER ACOSTA MD Attending Unavailable OLIVIER ACOSTA MD Consulting Unavailable OLIVIER ACOSTA MD Primary Care Unavailable OLIVIER ACOSTA MD Admitting Unavailable PROVIDER, UNKNOWN Consulting Unavailable PROVIDER, UNKNOWN Consulting Unavailable OLIVIER ACOSTA MD Referring Unavailable LORRAINE, YUSEF E Admitting Unavailable OLIVIER ACOSTA MD Consulting Unavailable LORRAINE, YUSEF E Attending Unavailable LORRAINE, YUSEF E Primary Care Unavailable PROVIDER, UNKNOWN Consulting Unavailable PROVIDER, UNKNOWN Consulting Unavailable OLIVIER ACOSTA MD Referring Unavailable OLIVIER ACOSTA MD Consulting Unavailable LORRAINE, YUSEF E Admitting Unavailable LORRAINE, YUSEF E Attending Unavailable LORRAINE, YUSEF E Primary Care Unavailable PROVIDER, UNKNOWN Consulting Unavailable PROVIDER, UNKNOWN Consulting Unavailable Oleosbaldoe, Efewongbe Attending Unavailable Kalisetti, Olivier Primary Care Unavailable Kalisetti, Olivier Primary Care Unavailable [place] GRIEVANCE AND APPEALS SPECIALIST, Shirlene Attending Unavailable Oleghe, Efewongbe Attending Unavailable Kalisetti, Olivier Primary Care Unavailable [place] GRIEVANCE AND APPEALS SPECIALIST, Shirlene Attending Unavailable Kalisetti, Olivier Primary Care Unavailable Kalisetti, Olivier Primary Care Unavailable Oleghe OLS, Efewongbe Attending Unavailabl e Kalisetti, Olivier Primary Care Unavailable Oleghe OLS, Efewongbe Attending Unavailabl e Oleghe OLS, Efewongbe Attending Unavailabl e Kalisetti, Olivier Primary Care Unavailable Kalisetti, Olivier Primary Care Unavailable Oleghe OLS, Efewongbe Attending Unavailabl e Kalisetti, Olivier Primary Care Unavailable [place] GRIEVANCE AND APPEALS SPECIALIST, Shirlene Attending Unavailable [place] GRIEVANCE AND APPEALS SPECIALIST, Shirlene Attending Unavailable Kalisetti, Olivier Primary Care Unavailable Kalisetti, Olivier Primary Care Unavailable Oleghe, Efewongbe Attending Unavailable [place] GRIEVANCE AND APPEALS SPECIALIST, Shirlene Attending Unavailable [place] GRIEVANCE AND APPEALS SPECIALIST, Shirlene Referring Unavailable Kalisetti, Olivier Primary Care Unavailable Oleghe OLS, Efewongbe Attending Unavailabl e Kalisetti, Olivier Primary Care Unavailable Oleghe OLS, Efewongbe Attending Unavailabl e Kalisetti, Olivier Primary Care Unavailable Kalisetti, Olivier Primary Care Unavailable Oleghe OLS, Efewongbe Attending Unavailabl e Oleghe OLS, Efewongbe Attending Unavailabl e Kalisetti, Olivier Primary Care Unavailable Oleghe OLS, Efewongbe Attending Unavailabl e Kalisetti, Olivier Primary Care Unavailable Oleghe OLS, Efewongbe Attending Unavailabl e Kalisetti, Olivier Primary Care Unavailable Oleghe OLS, Efewongbe Attending Unavailabl e Kalisetti, Olivier Primary Care Unavailable Kalisetti, Olivier Primary Care Unavailable [place] GRIEVANCE AND APPEALS SPECIALIST, Shirlene Attending Unavailable Kalisetti, Olivier Primary Care Unavailable Oleghe OLS, Efewongbe Attending Unavailabl e Oleghe OLS, Efewongbe Attending Unavailabl e Kalisetti, Olivier Primary Care Unavailable Kalisetti, Olivier Primary Care Unavailable [place] GRIEVANCE AND APPEALS SPECIALIST, Shirlene Attending Unavailable [place] GRIEVANCE AND APPEALS SPECIALIST, Shirlene Attending Unavailable Kalisetti, Olivier Primary Care Unavailable Oleghe, Efewongbe Attending Unavailable Kalisetti, Olivier Primary Care Unavailable [place] GRIEVANCE AND APPEALS SPECIALIST, Shirlene Attending Unavailable Kalisetti, Olivier Primary Care Unavailable Oleghe, Efewongbe Attending Unavailable Kalisetti, Olivier Primary Care Unavailable Dr. Olivier Acosta MD Primary Care Provider Tamy GRIEVANCE AND APPEALS SPECIALIST-C, Shirlene Attending Provider [phone] Dr. Benjamín Tavarez MD Attending Provider Benjamín Tavarez MD Attending Provider Unavaila ble Allergies Allergy Classification Reported Allergen(s) Allergy Type Date of Onset Reaction(s) Facility Opioid Agonists (10 sources) Morphine Drug Allergy 8 Shortness Of Breath [facility] Penicillins (antibiotic) (10 sources) Penicillins Drug Allergy 6 Rash [facility] Sulfonamides (antibiotic) (10 sources) Sulfonamides (Antibiotic) Drug Allergy [facility] (20 sources) morphine; Translations: [morphine] Propensity to adverse reactions to drug 3 Shortness Of Breath, Other: See Comments [facility] (20 sources) Penicillins; Translations: [PENICILLINS] Propensity to adverse reactions to drug 6 Rash [facility] Work Phone: (20 sources) Sulfonamides (Antibiotic); Translations: [SULFA (SULFONAMIDE ANTIBIOTICS)] Propensity to adverse reactions to drug 6 [facility] Work Phone: (2 sources) Penicillin; Translations: [penicillin] Drug Allergy AO, [facility] (2 sources) Sulfonamides (Antibiotic); Translations: [sulfa drugs] Propensity to adverse reactions to drug (disorder) AOF, [facility] (6 sources) Penicillins; Translations: [Penicillins] Allergy to drug (finding) [facility] [employer] Work Phone: (6 sources) Sulfonamides (Antibiotic); Translations: [sulfa] Allergy to drug (finding) [facility] kallie [employer] Work Phone: (19 sources) Penicillins Propensity to adverse reactions to drug 6 [facility] (20 sources) Sulfonamides (Antibiotic) Propensity to adverse reactions to drug 6 [facility] (20 sources) Penicillins Propensity to adverse reactions to drug 6 [facility] (1 source) Morphine Drug Allergy [facility] Repository (1 source) Penicillins Drug allergy (disorder) [facility] Rep[facility] (1 source) Sulfonamides (Antibiotic) Drug allergy (disorder) [facility] Rep[facility] (1 source) Morphine Drug Allergy 3 [facility] (1 source) Penicillins Drug allergy (disorder) 3 [facility] (1 source) Sulfonamides (Antibiotic) Drug allergy (disorder) 3 [facility] (1 source) Penicillins Propensity to adverse reactions to drug 6 [facility] Medications Current Medications Medication Drug Class(es) Dates Sig (Normalized) Sig (Original) acetaminophen 325 mg / HYDROcodone bitartrate 5 mg oral tablet (10 sources) Opioid Agonist Start: 10-02-2023 End: 10-05-2023 HYDROcodone-acetami nophen (NORCO) 5-325 mg per tablet Indications: Thoracic compression fracture, closed, initial encounter ([facility]) Take 1 (one) tablet by mouth every 4 (four) hours as needed for pain (Days supply per fill: 3) . 18 tablet 0 10/02/2023 10/05/2023 Active Start: 02-25-2023 HYDROcodone-ac etaminophen (NORCO) 5-325 mg per tablet Start: 07-22-2015 End: 09-20-2017 HYDROcodone-acetaminophen (N ORCO) 5-325 mg per tablet Albuterol (20 sources) beta2-Adrenergic Agonist Start: 08-03-2022 Albut oracio sulfate HFA Active 1 - 2 PUFF INHALATION NEEDED August 03, 2022 12:00am 109/90 base mcg/act Start: 08-03-2022 Albuterol sulf ate HFA Active INHALATION August 03, 2022 12:00am 109/90 base mcg/act Start: 05-07-2022 End: 05-09-2022 take 2 puff(s) by inhalation every six hours as needed for wheezing 2 puff, Inhalation, Every 6 hours PRN (RT), wheezing, Starting on Darleen 05/07/22 at 2207 SPACER REQUIRED FOR ADMINISTRATION Start: 08-05-2021 End: 08-05-2022 take 2 puff(s) by inhalation every six hours as needed for wheezing albuterol 90 mcg/actuation inhaler Indications: Asthma, unspecified asthma severity, unspecified whether complicated, unspecified whether persistent Inhale 2 (two) puffs every 6 (six) hours as needed for wheezing . 1 g 4 08/05/2021 Active amitriptyline hydrochloride 25 mg oral tablet (20 sources) Tricyclic Antidepressant Start: 09-12-2017 End: 10-14-2021 amitriptyline (ELAVIL) 25 MG tablet nightly . 0 09/12/2017 Active End: 03-30-2022 take 1 tablet by mouth once daily at bedtime amitriptyline (ELAVIL) 10 mg tablet Take 10 mg by mouth daily at bedtime. 0 03/30/2022 Discontinued (Other) Comment on above: Take 10 mg by mouth daily at bedtime. ascorbic acid 100 mg oral tablet (11 sources) Vitamin C take 1 tablet by mouth once daily ascorbic acid, vitamin C, (vitamin C) 100 MG tablet Take 1 (one) tablet (100 mg total) by mouth daily . 0 Active aspirin 81 mg delayed release oral tablet (1 source) Nonsteroidal Anti-inflammatory Drug Start: 018 End: 018 take 1 tablet by mouth once daily aspirin 81 MG EC tablet Take 1 (one) tablet (81 mg total) by mouth daily. 30 tablet 0 02/09/2018 03/11/2018 Active 168 hr buprenorphine 0.015 mg/hr transdermal system (5 sources) Partial Opioid Agonist Start: 023 apply 1 dose transdermal route every week buprenorphine (BUTRANS) 15 mcg/hour transdermal patch Place 1 (one) patch on the skin once a week On Wednesday . 0 05/26/2023 Active Start: 05-26-2023 apply 15 ug transder mal route every hour buprenorphine (BUTRANS) 15 mcg/hour transdermal patch calcium ascorbate 500 mg oral tablet (11 sources) Start: 08-03-2022 take 1 tablet by mouth once daily Ascorbate Calcium (Vitamin C) 500 mg tablet Active 500 mg PO DAILY August 03, 2022 1:00am cephalexin 500 mg oral capsule (3 sources) Cephalosporin Antibacterial Start: 09-01-2022 take 500 mg by mouth twice daily Cephalexin Active 500 MG PO TWICE A DAY September 01, 2022 12:00am Start: 05-08-2022 End: 05-09-2022 cephALEXin (KEFLEX) capsule 250 mg End: 03-30-2022 Cephalexin 500 mg Tab Take b y mouth. 0 03/30/2022 Discontinued (Other) Comment on above: Take by mouth. 12 hr cetirizine hydrochloride 5 mg / pseudoephedrine hydrochloride 120 mg extended release oral tablet (20 sources) alpha-Adrenergic Agonist, Histamine-1 Receptor Antagonist take 1 tablet by mouth once daily cetirizine-pseudo ePHEDrine (ZyrTEC-D) 5-120 mg per tablet Take 1 (one) tablet by mouth daily . 0 Active take 1 tablet by tess th twice daily cetirizine-pseudoePHEDrine (ZyrTEC-D) 5- 120 mg per tablet Take 1 tablet by mouth 2 (two) times a day . 0 Active cholecalciferol 0.05 mg oral capsule (20 sources) Vitamin D Start: 08-31-2022 take 1 capsule by mouth once daily Cholecalciferol (Vitamin D3) (Vitamin D3) 50 mcg (2,000 unit) capsule Active 2000 U PO DAILY August 31, 2022 1:00am Start: 08-03-2022 take 50 ug by mouth once daily Cholecalciferol (Vitamin D3) Active 50 MCG PO DAILY August 03, 2022 12:00am take 1 tablet by tess once daily cholecalciferol, vitamin D3, 50 mcg (2,000 unit) Tab Take 1 (one) tablet (2,000 Units total) by mouth nightly . Active clindamycin 150 mg oral capsule (6 sources) Lincosamide Antibacterial Start: 10-08-2022 take 1 capsule by mouth twice daily Clindamycin Hcl 150 mg capsule Active 150 mg PO TWICE A DAY October 08, 2022 1:00am D-MANNOSE ORAL (4 sources) take 1 capsule by mouth twice daily D-MANNOSE ORAL Take 1 capsule by mouth 2 (two) times a day . 0 Active D-Mannrose (9 sources) Start: 08-03-2022 take 1000 mg by mouth twice daily D-Mannrose Active 1000 mg PO TWICE A DAY August 03, 2022 1:00am 1000mg Start: 08-03-2022 take 1000 mg by mout h twice daily D-Mannrose Active 1000 MG PO TWICE A DAY August 03, 2022 1:00am 1000mg Start: 08-03-2022 take 1000 mg by mout h twice daily D-Mannrose Active 1000 MG PO TWICE A DAY August 03, 2022 12:00am 1000mg Start: 08-03-2022 D-Mannrose Act paco PO 2 times daily August 03, 2022 12:00am 1000mg 12 hr dilTIAZem hydrochloride 120 mg extended release oral capsule (12 sources) Calcium Channel Rosalio Start: 03-23-2023 End: 03-23-2024 take 1 capsule by mouth twice daily diltiazem (CARDIZEM SR) 120 MG 12 hr capsule Take 1 (one) capsule (120 mg total) by mouth 2 (two) times a day . 180 capsule 3 06/18/2023 Active esomeprazole 40 mg delayed release oral capsule (20 sources) Proton Pump Inhibitor Start: 08-06-2022 Esomeprazole Magnesium 40 mg capsule,delayed release(DR/EC) Active 40 NMA PO DAILY August 06, 2022 1:00am Start: 08-06-2022 take 1 capsule by mo [facility] once daily Esomeprazole Magnesium Active 40 CAP PO DAILY August 06, 2022 12:00am End: 09-20-2017 take 1 capsule by mouth once daily before breakfast esomeprazole (NEXIUM) 20 MG capsule Take 20 mg by mouth every morning before breakfast. 09/20/2017 Discontinued estradiol 0.1 mg/ml vaginal cream (10 sources) Estrogen Start: 08-31-2022 Estradiol 0.01 % (0.1 mg/gram) cream Active 1 NMA VAGINAL MOWEFR August 31, 2022 1:00am Start: 08-31-2022 Estradiol Acti ve 1 APPLIC VAGINAL MOWEFR August 31, 2022 12:00am ezetimibe 10 mg oral tablet (20 sources) Dietary Cholesterol Absorption Inhibitor Start: 11-26-2018 End: 05-09-2022 take 1 tablet by mouth once daily Ezetimibe (Zetia) 10 mg tablet Active 10 mg PO DAILY May 31, 2019 12:00am Zetia Quantity: 0 Refills: 0 Ordered: 04-Sep-2021 Lacey Pedraza Generic Substitution Allowed 72 hr fentaNYL 0.012 mg/hr transdermal system (5 sources) Opioid Agonist Start: 10-12-2022 Fentanyl 12 mc g/hr Patch 72 Hour Active 12 ug TD Every 3 Days 09 06October 12, 2022 Start: 10-12-2022 Fentanyl Activ e 12 MCG TD Every 3 Days 09 06October 12, 2022 30 actuat fluticasone furoate 0.1 mg/actuat / vilanterol 0.025 mg/actuat dry powder inhaler (20 sources) Corticosteroid, beta2-Adrenergic Agonist Start: 11-07-2019 End: 08-05-2021 fluticasone furoate-vilanteroL (Breo Ellipta) 100-25 mcg/dose DsDv Inhale 1 Inhalation daily . 1 Inhaler 11 11/07/2019 08/05/2021 Discontinued Start: 12-27-2017 End: 11-07-2019 fluticasone-vilanterol (BREO ELLIPTA) 200-25 mcg/dose DsDv Inhale 1 (one) puff daily. 3 each 0 12/27/2017 02/08/2018 Discontinued End: 03-30-2022 fluticasone-vilanterol (BREO ELLIPTA) 100-25 mcg/dose inhaler Inhale 1 Inhalation as instructed once daily. 0 03/30/2022 Discontinued (Other) Comment on above: Inhale 1 Inhalation as instructed once daily. Gemtesa 75 mg Tab (10 sources) Start: 03-17-2023 take 1 tablet by mouth once daily Gemtesa 75 mg Tab Take 1 (one) tablet (75 mg total) by mouth daily . 0 03/17/2023 Active Start: 03-17-2023 Gemtesa 75 mg Tab insulin aspart, human 100 unt/ml injectable solution (20 sources) Insulin Analog Start: 10-12-2022 Insulin Aspart U-100 (Novolog U-100 Insulin Aspart) 100 unit/mL solution Active 8 U SC THREE TIMES A DAY 70 October 12, 2022 1:01pm Start: 10-05-2022 NovoLOG U-100 Insulin aspart 100 unit/mL injection Inject under the skin 3 (three) times a day before meals . 0 10/05/2022 Active Start: 10-05-2022 NovoLOG U-100 Insulin aspart 100 unit/mL injection 15 units . 0 10/05/2022 Active Start: 10-01-2022 End: 10-12-2022 NovoLOG U-100 Insulin aspart 100 unit/mL injection Start: 10-01-2022 End: 10-12-2022 Insulin Aspart U-100 (Novolo g U-100 Insulin Aspart) 100 unit/mL solution Discontinued 25 U SC THREE TIMES A DAY 70 October 01, 2022 1:00am October 12, 2022 1:01pm Start: 09-30-2022 End: 10-01-2022 Insulin Aspart U-100 (Novolo g Flexpen U-100 Insulin) 100 unit/mL (3 mL) insulin pen Discontinued 25 U SC THREE TIMES A DAY 67.5 September 30, 2022 1:00am October 01, 2022 12:49pm Start: 09-30-2022 End: 10-01-2022 End: 05-09-2022 insulin aspart U-100 (NovoLO G) 100 unit/mL injection Inject under the skin 3 (three) times a day before meals Not taking . 0 05/09/2022 Discontinued (Stop Taking at Discharge) Insulin Glargine-Yfgn (20 sources) Start: 09-18-2022 Insulin Glargi ne-Yfgn 100 unit/mL (3 mL) insulin pen Active 40 U SC DAILY September 18, 2022 2:41pm Start: 09-18-2022 Insulin Glargi ne-Yfgn Active 40 UNIT SC DAILY September 18, 2022 2:41pm Start: 09-18-2022 Start: 09-18-2022 Insulin Glargi ne-Yfgn Active 40 UNIT SC DAILY September 18, 2022 1:41pm Start: 09-14-2022 End: 09-18-2022 Insulin Glargine-Yfgn 100 un it/mL (3 mL) insulin pen Discontinued 25 U SC DAILY September 14, 2022 6:19pm September 18, 2022 2:41pm Start: 09-14-2022 End: 09-18-2022 Insulin Glargine-Yfgn Discon tinued 25 UNIT SC DAILY September 14, 2022 6:19pm September 18, 2022 2:41pm Start: 09-14-2022 End: 09-18-2022 Start: 09-14-2022 End: 09-18-2022 Insulin Glargine-Yfgn Discon tinued 25 UNIT SC DAILY September 14, 2022 5:19pm September 18, 2022 1:41pm Start: 09-12-2022 End: 09-14-2022 Insulin Glargine-Yfgn 100 un it/mL (3 mL) insulin pen Discontinued 35 U SC DAILY September 13, 2022 12:38am September 14, 2022 6:19pm Start: 09-12-2022 End: 09-14-2022 Insulin Glargine-Yfgn Discon tinued 35 UNIT SC DAILY September 13, 2022 12:38am September 14, 2022 6:19pm Start: 09-12-2022 End: 09-14-2022 Start: 09-12-2022 End: 09-14-2022 Insulin Glargine-Yfgn Discon tinued 35 UNIT SC DAILY September 12, 2022 11:38pm September 14, 2022 5:19pm Start: 09-01-2022 End: 09-12-2022 Insulin Glargine-Yfgn 100 un it/mL (3 mL) Insulin Pen Discontinued 42 U SC DAILY September 01, 2022 1:00am September 13, 2022 12:38am Start: 09-01-2022 End: 09-12-2022 Insulin Glargine-Yfgn Discon tinued 42 UNIT SC DAILY 0 September 01, 2022 1:00am September 13, 2022 12:38am Start: 09-01-2022 End: 09-12-2022 Start: 09-01-2022 End: 09-12-2022 Insulin Glargine-Yfgn Discon tinued 42 UNIT SC DAILY 0 September 01, 2022 12:00am September 12, 2022 11:38pm Start: 09-01-2022 Insulin Glargi ne-Yfgn Active 42 UNIT SC DAILY 0 September 01, 2022 12:00am meloxicam 7.5 mg oral tablet (8 sources) Nonsteroidal Anti-inflammatory Drug Start: 02-17-2023 meloxicam (MOBIC) 7.5 MG tablet Start: 06-13-2014 End: 03-30-2022 take 1 tablet by mouth once daily at mealtime meloxicam (MOBIC) 15 mg tablet Indications: Right foot pain Take 1 tablet by mouth once daily. With food. 14 tablet 0 06/13/2014 03/30/2022 Discontinued (Other) Comment on above: Take 1 tablet by tess once daily. With food. metFORMIN hydrochloride 500 mg oral tablet (20 sources) Biguanide Start: End: 2 take 1 tablet by mouth twice daily, then take 2 tablets by mouth twice daily metFORMIN (GLUCOPHAGE-XR) 500 MG 24 hr tablet Take 1 (one) tablet (500 mg total) by mouth 2 (two) times a day Pt takes 2 tablets 2 times a day. Hold taking until 12/17/21 after pacemaker implant. . 60 tablet 0 12/16/2021 05/09/2022 Discontinued (Stop Taking at Discharge) Start: 05-31-2019 End: 08-03-2022 take 1 tablet by mouth twice daily Metformin 500 mg tablet Discontinued 500 mg PO TWICE A DAY May 31, 2019 12:00am August 03, 2022 1:55pm Start: 05-31-2019 End: 08-03-2022 take 1000 mg by mouth twice daily Metformin Active 1000 MG PO TWICE A DAY August 03, 2022 12:45pm Start: 10-02-2015 End: 03-11-2018 take 1 tablet by mouth twice daily, then take 2 tablets by mouth twice daily metFORMIN (GLUCOPHAGE-XR) 500 MG 24 hr tablet Take 1 (one) tablet (500 mg total) by mouth 2 (two) times a day Pt takes 2 tablets 2 times a day. Hold taking for [address] contrast study, OK to resume on 02/11/2018.. 60 tablet 0 02/09/2018 Active Start: 10-02-2015 take 1 tablet by tess th four times daily metFORMIN (GLUCOPHAGE-XR) 500 MG 24 hr tablet Take 500 mg by mouth 4 (four) times a day Pt takes 2 tablets 2 times a day. 10/02/2015 Active End: 08-13-2022 take 1 tablet by mouth twice daily metFORMIN (GLUCOPHAGE) 1000 MG tablet Take 1 (one) tablet (1,000 mg total) by mouth 2 (two) times a day . 0 08/13/2022 Discontinued (Patient's Request) Comment on above: Take 500 mg by mouth twice daily. methylnaltrexone bromide 150 mg oral tablet (2 sources) Opioid Antagonist Start: 023 take 1 tablet by mouth once daily Methylnaltrexone (Relistor) 150 mg tablet Active 150 MG PO DAILY September 22, 2022 12:00am metoclopramide 5 mg oral tablet (11 sources) Dopamine-2 Receptor Antagonist Start: 024 take 1 tablet by mouth twice daily as needed metoclopramide (REGLAN) 5 MG tablet Take 1 (one) tablet (5 mg total) by mouth 2 (two) times a day as needed . 12/01/2023 Active Start: 03-27-2022 metoclopramide HCl (REGLAN) 5 mg tablet 24 hr metoprolol succinate 25 mg extended release oral tablet (20 sources) beta-Adrenergic Rosalio Start: 08-06-2022 take 1 tablet by mouth every twenty-four hours at bedtime Metoprolol Succinate 25 mg tablet extended release 24 hr Active 25 mg PO AT BEDTIME August 06, 2022 1:00am Start: 08-06-2022 take 25 mg by mouth at bedtime Metoprolol Succinate Active 25 MG PO AT BEDTIME August 06, 2022 12:00am Start: 07-25-2021 End: 07-25-2022 take 1 tablet by mouth every twenty-four hours metoprolol succinate ER (TOPROL XL) 25 mg 24 hr tablet Take 12.5 mg by mouth. 0 07/25/2021 Active Start: 07-25-2021 End: 07-25-2022 take 0.5 tablet by mouth once daily metoprolol succinate (TOPROL-XL) 25 MG 24 hr tablet Take 0.5 (one-half) tablet (12.5 mg total) by mouth daily IN PLACE OF METOPROLOL TARTRATE . 15 tablet 5 07/25/2021 11/20/2021 Discontinued (Patient's Request) Start: 07-24-2021 End: 07-24-2022 take 25 mg by mouth once daily 25 mg, Oral, Nightly, F irst dose on Darleen 05/07/22 at 2145 DO NOT CRUSH OR CHEW. Start: 07-10-2021 End: 07-24-2021 take 1 tablet by mouth once daily, then take 0.5 tablet by mouth once daily metoprolol tartrate (LOPRESSOR) 25 MG tablet Take 1 (one) tablet (25 mg total) by mouth daily Take 1/2 tablet (12.5 mg) once daily. . 90 tablet 1 07/10/2021 07/24/2021 Discontinued (Dose adjustment) Start: 06-18-2021 metoprolol tar trate (LOPRESSOR) 25 MG tablet Take 1/2 tablet (12.5 mg) once daily. . 90 tablet 1 06/18/2021 Active Start: 12-04-2020 End: 02-13-2021 take 1 tablet by mouth once daily metoprolol succinate (TOPROL-XL) 25 MG 24 hr tablet Take 1 (one) tablet (25 mg total) by mouth daily . 30 tablet 11 12/04/2020 02/13/2021 Discontinued Start: 05-22-2020 End: 06-07-2020 take 1 tablet by mouth once daily metoprolol succinate (TOPROL-XL) 25 MG 24 hr tablet Take 1 (one) tablet (25 mg total) by mouth daily . 30 tablet 11 06/07/2020 Active End: 10-14-2021 METOPROLOL SUCCINATE ORAL Ta ke by mouth . 0 10/14/2021 Discontinued (Patient's Request) METOPROLOL SUCCI SANAM ORAL Take by mouth . 0 Active metoprolol exten ded release Quantity: 0 Refills: 0 Ordered: 04-Sep-2021 Lacey Pedraza Generic Substitution Allowed Comment on above: Take 12.5 mg by mout h. midodrine hydrochloride 5 mg oral tablet (20 sources) alpha-Adrenergic Agonist Start: 12-14-2023 End: 12-17-2023 midodrine (PROAMATINE) tablet 5 mg Start: 12-11-2023 End: 12-14-2023 midodrine (PROAMATINE) table t 2.5 mg Start: 03-23-2023 End: 12-17-2023 take 0.5 tablet by mouth three times daily midodrine (PROAMATINE) 5 MG tablet Indications: Pacemaker , Orthostatic hypotension Take 0.5 (one-half) tablet (2.5 mg total) by mouth 3 (three) times a day . 135 tablet 3 06/18/2023 12/17/2023 Discontinued (Stop Taking at Discharge) Start: 01-06-2023 End: 03-23-2023 take 1 tablet by mouth twice daily midodrine (PROAMATINE) 5 MG tablet Take 1 (one) tablet (5 mg total) by mouth 2 (two) times a day . 180 tablet 2 01/06/2023 03/23/2023 Discontinued (Therapy completed) Start: 10-12-2022 End: 01-16-2024 take 1 tablet by mouth three times daily at mealtime Midodrine 5 mg Tablet Active 5 mg PO 3 TIMES DAILY WITH MEALS October 12, 2022 1:00am End: 12-10-2023 take 1 tablet by mouth three times daily midodrine (PROAMATINE) 2.5 MG tablet Take 1 (one) tablet (2.5 mg total) by mouth 3 (three) times a day . 0 12/10/2023 Discontinued (Error) minocycline 100 mg oral capsule (1 source) Tetracycline-class Drug Start: 09-14-2021 End: 09-21-2021 take 1 capsule by mouth twice daily minocycline (MINOCIN,DYNACIN) 100 MG capsule Take 1 (one) capsule (100 mg total) by mouth 2 (two) times a day for 7 days . 14 capsule 0 09/14/2021 09/21/2021 Active nitrofurantoin, macrocrystals 25 mg / nitrofurantoin, monohydrate 75 mg oral capsule (11 sources) Nitrofuran Antibacterial Start: 10-02-2023 End: 10-06-2023 take 1 capsule by mouth every twelve hours nitrofurantoin, macrocrystal-monohydr ate, (MACROBID) 100 MG capsule Take 1 (one) capsule (100 mg total) by mouth every 12 (twelve) hours for 4 days . 8 capsule 0 10/02/2023 10/06/2023 Active Start: 09-13-2022 End: 10-12-2022 take 1 capsule by mouth twice daily Nitrofurantoin Monohyd/M-Cryst 100 mg capsule Discontinued 100 mg PO TWICE A DAY September 13, 2022 1:00am October 12, 2022 12:57pm Start: 08-31-2022 take 100 mg by mouth twice daily Nitrofurantoin Monohyd/M-Cryst Active 100 MG PO TWICE A DAY August 31, 2022 12:00am Start: 08-14-2022 take 1 capsule by [facility] twice daily nitrofurantoin, macrocrystal-monohydrate, (MACROBID) 100 MG capsule Take 1 (one) capsule (100 mg total) by mouth 2 (two) times a day . 0 08/14/2022 Active omeprazole 20 mg delayed release oral capsule (3 sources) Proton Pump Inhibitor take 1 capsule by mouth once daily omeprazole (PRILOSEC) 20 MG capsule Take 1 (one) capsule (20 mg total) by mouth daily . 0 Active oxyCODONE hydrochloride 5 mg oral tablet (5 sources) Opioid Agonist Start: 10-12-19 take 1 tablet by mouth every four hours as needed for pain Oxycodone 5 mg Tablet Active 5 mg PO EVERY 4 HOURS NEEDED as needed for Pain Score 4-10 6 October 12, 2022 polyethylene glycol 3350 [id number] mg powder for oral solution (7 sources) Osmotic Laxative polyethylene gl ycol (MIRALAX) 17 gram powder Take 17 (seventeen) g by mouth daily . Active predniSONE 20 mg oral tablet (3 sources) Corticosteroid Start: 09-04-20 End: 09-06-19 22 take 1 tablet by mouth once daily at mealtime predniSONE 20 mg oral tablet ; 1 tab(s) orally once a day x 3 days. Take with food. Quantity: 3 Refills: 0 Ordered: 04-Sep-2021 Dyana Coleman Start: 04-Sep-2021 End: 06-Sep-2021 Generic Substitution Allowed Comments: It is very important that you take or use this exactly as directed. Do not skip doses or discontinue unless directed by your doctor.Obtain medical advice before taking any non-prescription drugs as some may affect the action of this medication.Take with food or milk. End: 02-08-2018 take 1 tablet by mouth once daily predniSONE (DELTASONE) 20 MG tablet Take 20 mg by mouth daily. 02/08/2018 Discontinued Comment on above: It is very important that you take or use this exactly as directed. Do not skip doses or discontinue unless directed by your doctor.Obtain medical advice before taking any non-prescription drugs as some may affect the action of this medication.Take with food or milk. probiotic (9 sources) Start: 08-03-2022 probiotic Active 1 {tbl} PO DAILY August 03, 2022 1:00am Start: 08-03-2022 take 1 tablet by tess th once daily probiotic Active 1 TABLET PO DAILY August 03, 2022 1:00am Start: 08-03-2022 take 1 tablet by tess th once daily probiotic Active 1 TABLET PO DAILY August 03, 2022 12:00am Start: 08-03-2022 take 1 tablet by tess th once daily probiotic Active 1 TABLET PO 1 time daily August 03, 2022 12:00am Start: 08-03-2022 probiotic Acti ve PO 1 time daily August 03, 2022 12:00am rosuvastatin calcium 5 mg oral tablet (10 sources) HMG-CoA Reductase Inhibitor Start: 06-21-2023 take 1 tablet by mouth two times weekly rosuvastatin (CRESTOR) 5 MG tablet Take 1 (one) tablet (5 mg total) by mouth twice weekly Start: 06/21/23. 100 tablet 0 06/21/2023 Active Start: 06-21-2023 take 1 tablet by tess th two times weekly rosuvastatin (CRESTOR) 5 MG tablet Take 1 (one) tablet (5 mg total) by mouth twice weekly Start: 06/21/23. 100 tablet 0 06/21/2023 Active Start: 03-25-2023 End: 06-17-2023 take 1 tablet by mouth two times weekly rosuvastatin (CRESTOR) 5 MG tablet Take 1 (one) tablet (5 mg total) by mouth twice weekly Start: 03/25/23. 100 tablet 0 03/25/2023 06/17/2023 Discontinued (Reorder (Suppress CancelRx Message to Pharmacy)) Start: 03-25-2023 take 1 tablet by tess th two times weekly rosuvastatin (CRESTOR) 5 MG tablet Take 1 (one) tablet (5 mg total) by mouth twice weekly Start: 03/25/23. 100 tablet 0 03/25/2023 Active End: 03-23-2023 take 1 tablet by mouth two times weekly rosuvastatin (CRESTOR) 5 MG tablet Take 1 (one) tablet (5 mg total) by mouth twice weekly . 0 03/23/2023 Discontinued (Reorder (Suppress CancelRx Message to Pharmacy)) 72 hr scopolamine 0.0139 mg/hr transdermal system (7 sources) Anticholinergic Start: 12-08-2023 scopolamine (TRANSDERM-SCOP) 1 mg over [address] 1 (one) patch on the skin every 72 hours . 12/08/2023 Active sennosides, correction 8.6 mg oral tablet (11 sources) take 1 tablet by mouth once daily senna (SENOKOT) 8.6 mg tablet Take 1 (one) tablet (8.6 mg total) by mouth daily . Active sodium phosphate, dibasic 59.3 mg/ml / sodium phosphate, monobasic 161 mg/ml enema (7 sources) take 1 dose rectal route once daily as needed for constipation sodium phosphates (FLEETS ADULT) 19-7 gram/118 mL Enem Indications: constipation Insert 1 (one) each into the rectum daily as needed Reasons: constipation. Active tiZANidine 2 mg oral capsule (1 source) Central alpha-2 Adrenergic Agonist Start: 08-17-2023 take 1 capsule by mouth twice daily as needed for muscle spasms tiZANidine (ZANAFLEX) 2 MG capsule Indications: Status post kyphoplasty , Night muscle spasms Take 1 (one) capsule (2 mg total) by mouth 2 (two) times a day as needed for muscle spasms . 30 capsule 0 08/17/2023 Active traMADol hydrochloride 50 mg oral tablet (8 sources) Opioid Agonist Start: 08-31-2022 take 50 mg by mouth three times daily Tramadol Active 50 MG PO THREE TIMES A DAY August 31, 2022 12:00am Start: 08-31-2022 take 50 mg by mouth twice pito y Tramadol Active 50 MG PO TWICE A DAY August 31, 2022 12:00am Start: 08-06-2022 Tramadol Activ e 50 MG PO August 06, 2022 12:00am Start: 08-03-2022 tramadol Activ e PO 2 times daily August 03, 2022 12:00am End: 03-23-2023 take 0.5 tablet by mouth every four hours as needed for pain traMADoL (ULTRAM) 50 mg tablet Take 0.5 (one-half) tablet (25 mg total) by mouth every 4 (four) hours as needed for pain . 0 03/23/2023 Discontinued (Patient's Request) vibegron (Gemtesa) 75 mg Tab (11 sources) take 1 tablet by tess th once daily vibegron (Gemtesa) 75 mg Tab Take 1 (one) tablet (75 mg total) by mouth daily . Active take 1 tablet by mouth once pito y vibegron (Gemtesa) 75 mg Tab Take 1 (one) tablet (75 mg total) by mouth daily . 0 take 1 tablet by mouth once pito y vibegron (Gemtesa) 75 mg Tab Take 1 (one) tablet (75 mg total) by mouth daily . 0 Active Completed/Discontinued Medications Medication Drug Class(es) Dates Sig (Normalized) Sig (Original) acetaminophen 325 mg oral tablet (20 sources) Start: 12-10-2023 End: 12-17-2023 take 1 tablet by mouth every four hours as needed for pain and headache 650 mg, Oral, Every 4 hours PRN, mild pain, fever 100.4 F or greater, headaches, Starting on Wed12/10/23 at 1659 Start: 10-12-2022 take 2 tablets by mo uth every eight hours Acetaminophen 500 mg Tablet Active 1000 mg PO EVERY 8 HOURS 0 October 12, 2022 1:00am Start: 10-12-2022 take 1000 mg by mout h every eight hours Acetaminophen Active 1000 MG PO EVERY 8 HOURS 0 October 12, 2022 12:00am Start: 05-08-2022 End: 05-09-2022 take 1 tablet by mouth every six hours as needed for headache acetaminophen (TYLENOL) tablet 650 mg Start: 12-16-2021 End: 12-26-2021 take 2 tablets by mouth every four hours as needed acetaminophen (TYLENOL) 325 MG tablet Take 2 (two) tablets (650 mg total) by mouth every 4 (four) hours as needed . 30 tablet 0 12/16/2021 12/26/2021 Active Start: 02-08-2018 End: 02-09-2018 take 2 tablets by mouth every four hours as needed take 1 tablet by tess th every four hours as needed for pain and fever acetaminophen (TYLENOL ER) 650 MG CR tablet Take 1 (one) tablet (650 mg total) by mouth every 4 (four) hours as needed for pain or fever . Active take 2 tablets by mo njh every eight hours as needed for pain acetaminophen (TYLENOL ER) 650 MG CR tablet Take 2 (two) tablets (1,300 mg total) by mouth every 8 (eight) hours as needed for pain . 0 Active acetaminophen 325 mg / oxyCODONE hydrochloride 5 mg oral tablet (20 sources) Opioid Agonist Start: 09-13-2022 End: 09-14-2022 Oxycodone-Acetaminophen 5-32 5 mg tablet Discontinued 1 {tbl} PO EVERY 6 HOURS NEEDED as needed for Pain September 13, 2022 1:00am September 14, 2022 6:13pm Start: 09-13-2022 End: 09-14-2022 take 1 tablet by mouth every six hours as needed Oxycodone-Acetaminophen Discontinued 1 TABLET PO EVERY 6 HOURS NEEDED September 13, 2022 12:00am September 14, 2022 5:13pm Start: 09-13-2022 End: 09-14-2022 Start: 05-07-2022 End: 08-13-2022 take 1 tablet by mouth every six hours as needed 1 tablet, Oral, Every 6 hours PRN, moderate to severe pain, Starting on Darleen 05/07/22 at 2140 Start: 08-08-2021 take 1 tablet by tess th twice daily oxyCODONE-acetaminophen (PERCOCET) 5-325 mg tablet Take 1 tablet by mouth twice daily. 0 08/08/2021 Active Start: 05-31-2019 End: 08-03-2022 Oxycodone-Acetaminophen (Per cocet) 5-325 mg tablet Discontinued 1 {tbl} PO .prn May 31, 2019 12:00am August 03, 2022 1:46pm Start: 05-31-2019 End: 08-03-2022 Comment on above: Take 1 tablet by tess twice daily. albuterol 0.833 mg/ml / ipratropium bromide 0.167 mg/ml inhalant solution (1 source) Anticholinergic, beta2-Adrenergic Agonist Start: 02-09-20 End: 02-10-20 take 3 mL by inhalation every six hours as needed ARIPiprazole 2 mg oral tablet (4 sources) Atypical Antipsychotic Start: 09-10-19 take 1 tablet by mouth once daily ARIPiprazole (ABILIFY) 2 mg tablet Take 2 mg by mouth once daily. 0 09/10/2021 Active Comment on above: Take 2 mg by mouth o nce daily. atorvastatin 20 mg oral tablet (2 sources) HMG-CoA Reductase Inhibitor Start: 02-10-20 End: 02-10-20 take 1 tablet by mouth once atorvastatin (LIPITOR) 20 MG tablet Take 1 (one) tablet (20 mg total) by mouth nightly. 30 tablet 0 02/09/2018 02/09/2018 Discontinued Start: 02-09-2018 End: 02-09-2018 benzonatate 100 mg oral capsule (3 sources) Non-narcotic Antitussive Start: 12-04-2017 End: 03-30-2022 take 1-2 capsules by mouth three times daily as needed for cough benzonatate (TESSALON PERLES) 100 mg capsule Indications: Bronchitis Take 1-2 capsules by mouth three times daily as needed for Cough. 30 capsule 0 12/04/2017 03/30/2022 Discontinued (Other) Comment on above: Take 1-2 capsules by mouth three times daily as needed for Cough. augmented betamethasone 0.5 mg/ml topical cream (8 sources) Corticosteroid Start: 02-13-2022 betamethasone dipropionate, augmented (DIPROLENE) 0.05 % cream APPLY TO THE AFFECTED AREAS OF THE EXTREMITIES TWICE DAILY FOR 14 DAYS. 0 02/13/2022 Active Start: 05-19-2021 End: 10-14-2021 augmented betamethasone dipr opionate (DIPROLENE-AF) 0.05 % cream APPLY TO THE AFFECTED AREAS OF THE EXTREMITIES TWICE DAILY FOR 14 DAYS. 0 05/19/2021 10/14/2021 Discontinued (Therapy completed) Comment on above: APPLY TO THE AFFECTE D AREAS OF THE EXTREMITIES TWICE DAILY FOR 14 DAYS. bisacodyl 10 mg rectal suppository (8 sources) Stimulant Laxative Start: 12-13-2023 End: 12-17-2023 bisacodyL (DULCOLAX) suppository 10 mg Budesonide / formoterol (2 sources) Corticosteroid, beta2-Adrenergic Agonist Start: 09-10-2021 End: 10-14-2021 budesonide-formoteroL (SYMBICORT) 80-4.5 mcg/actuation inhaler Start: 09-10-2021 budesonide-for moteroL (SYMBICORT) 80-4.5 mcg/actuation inhaler cefdinir 300 mg oral capsule (1 source) Cephalosporin Antibacterial End: 12-27-2017 take 1 capsule by mouth twice daily, then take 1 capsule by mouth cefdinir (OMNICEF) 300 MG capsule Take 300 mg by mouth 2 (two) times a day. 12/27/2017 Discontinued cefTRIAXone 1000 mg injection (1 source) Cephalosporin Antibacterial Start: 12-10-2023 End: 12-13-2023 cefTRIAXone (ROCEPHIN) IVPB 1 g (premix) cefuroxime 500 mg oral tablet (1 source) Cephalosporin Antibacterial End: 12-27-2017 take 1 tablet by mouth twice daily cefUROXime (CEFTIN) 500 MG tablet Take 500 mg by mouth 2 (two) times a day. 12/27/2017 Discontinued celecoxib 100 mg oral capsule (20 sources) Nonsteroidal Anti-inflammatory Drug Start: 04-24-2020 End: 10-14-2021 take 1 capsule by mouth once daily celecoxib (CeleBREX) 100 MG capsule Take 1 (one) capsule (100 mg total) by mouth daily . 30 capsule 11 04/24/2020 10/01/2020 Discontinued (Patient Discharge) cholecalciferol, vitamin D3, (VITAMIN D3 ORAL) (4 sources) take 1000 mg by mouth every week cholecalciferol, vitamin D3, (VITAMIN D3 ORAL) Take 1,000 mg by mouth one time a week. 0 Active Comment on above: Take 1,000 mg by [facility] one time a week. citalopram 40 mg oral tablet (20 sources) Serotonin Reuptake Inhibitor Start: 01-24-2013 End: 08-06-2022 take 1 tablet by mouth once daily Citalopram 40 mg tablet Discontinued 40 mg PO DAILY May 31, 2019 12:00am August 06, 2022 9:25am Comment on above: once daily. clopidogrel 75 mg oral tablet (3 sources) [id number] Platelet Inhibitor Start: 02-09-2018 End: 02-09-2018 Start: 10-03-2015 End: 09-20-2017 take 1 tablet by mouth once daily clopidogrel (PLAVIX) 75 mg tablet Take 75 mg by mouth daily. 10/03/2015 09/20/2017 Discontinued dexamethasone (DECADRON) 1 m L, triamcinolone acetonide (KENALOG-40) 40 mg/mL 1 mL (14 sources) Start: 02-18-2020 End: 02-19-2020 dexamethasone (DECADRON) 1 m L, triamcinolone acetonide (KENALOG-40) 40 mg/mL 1 mL Start: 02-18-2020 End: 02-19-2020 dexamethasone (DECADRON) 1 m L, triamcinolone acetonide (KENALOG-40) 40 mg/mL 1 mL Start: 10-29-2019 End: 10-30-2019 dexamethasone (DECADRON) 1 m L, triamcinolone acetonide (KENALOG-40) 40 mg/mL 1 mL Start: 10-29-2019 End: 10-30-2019 dexamethasone (DECADRON) 1 m L, triamcinolone acetonide (KENALOG-40) 40 mg/mL 1 mL Start: 07-30-2019 End: 07-31-2019 dexamethasone (DECADRON) 1 m L, triamcinolone acetonide (KENALOG-40) 40 mg/mL 1 mL Start: 07-30-2019 End: 07-31-2019 dexamethasone (DECADRON) 1 m L, triamcinolone acetonide (KENALOG-40) 40 mg/mL 1 mL Start: 04-20-2019 End: 04-20-2019 dexamethasone (DECADRON) 1 m L, triamcinolone acetonide (KENALOG-40) 40 mg/mL 1 mL Start: 04-20-2019 End: 04-20-2019 dexamethasone (DECADRON) 1 m L, triamcinolone acetonide (KENALOG-40) 40 mg/mL 1 mL Start: 01-12-2019 End: 01-16-2019 dexamethasone (DECADRON) 1 m L, triamcinolone acetonide (KENALOG-40) 40 mg/mL 1 mL Start: 01-12-2019 End: 01-16-2019 dexamethasone (DECADRON) 1 m L, triamcinolone acetonide (KENALOG-40) 40 mg/mL 1 mL Start: 01-12-2019 End: 01-16-2019 dexamethasone (DECADRON) 1 m L, triamcinolone acetonide (KENALOG-40) 40 mg/mL 1 mL Start: 01-12-2019 End: 01-16-2019 dexamethasone (DECADRON) 1 m L, triamcinolone acetonide (KENALOG-40) 40 mg/mL 1 mL Start: 11-03-2018 End: 11-03-2018 dexamethasone (DECADRON) 1 m L, triamcinolone acetonide (KENALOG-40) 40 mg/mL 1 mL Start: 11-03-2018 End: 11-03-2018 dexamethasone (DECADRON) 1 m L, triamcinolone acetonide (KENALOG-40) 40 mg/mL 1 mL dicyclomine hydrochloride 10 mg oral capsule (6 sources) Anticholinergic Start: 05-07-2022 End: 08-13-2022 take 10 mg by mouth once daily as needed for pain 10 mg, Oral, Daily PRN, other, Abdominal pain, Starting on [facility] 05/07/22 at 2139 docusate sodium 50 mg / sennosides, correction 8.6 mg oral tablet (8 sources) Start: 12-13-2023 End: 12-17-2023 senna-docusate (SENNA-S) 8.6-50 mg per tablet 1 tablet Start: 10-02-2023 End: 11-01-2023 take 1 tablet by mouth once daily senna-docusate (SENNA-S) 8.6-50 mg Take 1 (one) tablet by mouth nightly . 30 tablet 0 10/02/2023 11/01/2023 Active Start: 10-12-2022 Sennosides-Doc usate Sodium (Stool Softener-Stimulant Laxat) 8.6-50 mg Tablet Active 2 {tbl} PO TWICE A DAY as needed for constipation 0 October 12, 2022 1:00am Start: 10-12-2022 doxycycline hyclate 100 mg oral tablet (16 sources) Tetracycline-class Drug Start: 12-23-2021 End: 05-09-2022 take 1 tablet by mouth twice daily doxycycline hyclate (VIBRA-TABS) 100 MG tablet Take 1 (one) tablet (100 mg total) by mouth 2 (two) times a day . 28 tablet 0 12/23/2021 05/09/2022 Discontinued (Stop Taking at Discharge) Start: 12-13-2020 End: 01-06-2021 take 1 capsule by mouth once doxycycline hyclate (VIBR AMYCIN) 100 MG capsule TAKE 1 CAPSULE BY MOUTH A ONE TIME DOSE 0 12/13/2020 01/06/2021 Discontinued (Patient's Request) End: 12-11-2020 take 1 capsule by mouth twice daily doxycycline hyclate (VIBRAMYCIN) 100 MG capsule Take 100 mg by mouth 2 (two) times a day . 0 12/11/2020 Discontinued (Reorder) dupilumab (DUPIXENT PEN SUBCUTANEOUS) (4 sources) dupilumab (DUPIX ENT PEN SUBCUTANEOUS) Inject subcutaneously. 0 Active Comment on above: Inject subcutaneousl y. 0.4 ml enoxaparin sodium 100 mg/ml prefilled syringe (1 source) Low Molecular Weight Heparin Start: End: inject 40 mg by subcutaneous injection once daily 40 mg, Subcutaneous, Daily, First dose on 12/11/23 at 0900, Administer in abdomen unless otherwise directed by prescriber. Notify physician if patient refuses., Indication: VTE Prophylaxis 10 ml EPINEPHrine 0.005 mg/ml / lidocaine hydrochloride 20 mg/ml injection (1 source) Antiarrhythmic, alpha-Adrenergic Agonist, beta-Adrenergic Agonist, Catecholamine, Amide Local Anesthetic Start: End: lidocaine-EPINEPHrine (XYLOCAINE W/EPINEPHrine) 2 %-1:200,000 injection 1 mL Start: 12-20-2020 End: 12-20-2020 lidocaine-EPINEPHrine (XYLOC JOSEF W/EPINEPHrine) 2 %-1:200,000 injection 1 mL ergocalciferol 1.25 mg oral capsule (20 sources) Provitamin D2 Compound Start: 11-21-2018 End: 05-09-2022 take 1 capsule by mouth every week VITAMIN D2 50,000 unit capsule Take 50,000 Units by mouth once a week . 4 11/21/2018 05/09/2022 Discontinued (Stop Taking at Discharge) Start: 11-21-2018 VITAMIN D2 50, 000 unit capsule fludrocortisone acetate 0.1 mg oral tablet (15 sources) Start: 10-12-2022 End: 12-17-2023 fludrocortisone (FLORINEF) tablet 0.1 mg Start: 10-12-2022 take 0.4 mg by mouth at breakfast Fludrocortisone Active 0.4 MG PO WITH BREAKFAST 0 October 12, 2022 12:00am fluticasone propionate 0.05 mg/actuat metered dose nasal spray (20 sources) Corticosteroid Start: 09-10-2021 End: 08-13-2022 take 1 spray(s) nasal route twice daily fluticasone propionate (FLONASE) 50 mcg/actuation nasal spray USE 1 SPRAY(S) IN EACH NOSTRIL TWICE DAILY 0 09/10/2021 08/13/2022 Discontinued (Patient's Request) 60 actuat fluticasone propionate 0.5 mg/actuat / salmeterol 0.05 mg/actuat dry powder inhaler (1 source) Corticosteroid, beta2-Adrenergic Agonist Start: 07-20-2006 End: 03-30-2022 ADVAIR DISKUS 500 MCG-50 MCG/DOSE FOR INHALATION gadoterate meglumine (DOTAREM) injection 16 mL (1 source) Start: 12-14-2023 End: 12-14-2023 gadoterate meglumine (DOTAREM) injection 16 mL Gadoterate Meglumine 0.5 Mmol/Ml Intravenous Solution (1 source) Start: 02-09-2018 End: 02-09-2018 gadoterate meglumine (DOTAREM) injection 18 mL 1 ml heparin sodium, porcine 5000 unt/ml injection (1 source) Start: 02-09-2018 End: 02-09-2018 hydroCHLOROthiazide 50 mg oral tablet (3 sources) Thiazide Diuretic Start: 07-20-2006 End: 03-30-2022 HYDROCHLOROTHIAZIDE 50 MG TAB End: 03-30-2022 take 1 capsule by mouth once daily Hydrochlorothiazide 12.5 mg capsule Take 12.5 mg by mouth once daily. 0 03/30/2022 Discontinued (Other) Comment on above: Take 12.5 mg by mout h once daily. hydrOXYzine pamoate 25 mg oral capsule (2 sources) Antihistamine End: 03-23-20 take 1 capsule by mouth three times daily as needed hydrOXYzine (VISTARIL) 25 MG capsule Take 1 (one) capsule (25 mg total) by mouth 3 (three) times a day as needed for itching . 0 03/23/2023 Discontinued (Patient's Request) ibuprofen 600 mg oral tablet (1 source) Nonsteroidal Anti-inflammatory Drug Start: 05-08-20 End: 05-09-20 take 1 tablet by mouth every eight hours as needed for pain 600 mg, Oral, Every 8 hours PRN, mild pain, Starting on Wed05/08/22 at 1244, For 24 hours Give with Food Do Not Crush or Chew if administering orally due to bitter taste. May be crushed if given via tube. insulin glargine 100 unt/ml injectable solution (20 sources) Insulin Analogue Start: 12-10-19 End: 12-17-19 insulin glargine (LANTUS) injection 30 Units Start: 08-03-2022 Insulin Glargi ne (Lantus U-100 Insulin) 100 unit/mL solution Active 30 UNIT SC EVERY MORNING August 03, 2022 12:42pm Start: 08-03-2022 Insulin Glargi ne (Lantus Solostar U-100 Insulin) 100 unit/mL (3 mL) insulin pen Active 20 UNIT SC .COMPLEX August 03, 2022 12:00am 20 units subcutaneously QHS; Start: 05-31-2019 End: 08-03-2022 Insulin Glargine (Lantus U-1 00 Insulin) 100 unit/mL solution Discontinued 25 U SC AT BEDTIME May 31, 2019 12:00am August 03, 2022 1:55pm Start: 05-31-2019 End: 08-03-2022 Start: 02-09-2018 End: 02-09-2018 insulin glargine (LANTUS) injection 22 Units Start: 01-20-2017 inject 25 [IU] by cortez bcutaneous injection once daily at bedtime insulin glargine (LANTUS) 100 unit/mL injection Inject 25 Units subcutaneously daily at bedtime. 0 01/20/2017 Active inject 40 [IU] by cortez bcutaneous injection once daily insulin glargine (LANTUS) 100 unit/mL injection Inject 40 (forty) Units under the skin nightly . Active inject 45 [IU] by cortez bcutaneous injection once daily insulin glargine (LANTUS) 100 unit/mL injection Inject 45 (forty five) Units under the skin nightly . 0 Active inject 30 [IU] by cortez bcutaneous injection once daily insulin glargine (LANTUS) 100 unit/mL injection Inject 30 Units under the skin daily . 0 Active inject 28 [IU] by cortez bcutaneous injection once daily insulin glargine (LANTUS) 100 unit/mL injection Inject 28 Units under the skin daily . 0 Active Lantus Quantity: 0 Refills: 0 Ordered: 04-Sep-2021 Lacey Pedraza Generic Substitution Allowed inject 22 [IU] by cortez bcutaneous injection once daily insulin glargine (LANTUS) 100 unit/mL injection Inject 22 Units under the skin daily . 0 Active insulin glargine (LANTUS) 100 unit/mL injection Inject 22 Units under the skin daily . Active Comment on above: Inject 25 Units subc utaneously daily at bedtime. Insulin Glargine (Lantus U-100 Insulin) 100 unit/mL solution (8 sources) Start: 08-31-2022 End: 09-01-2022 Insulin Glargine (Lantus U-100 Insulin) 100 unit/mL solution Discontinued 35 U SC DAILY August 31, 2022 1:00am September 01, 2022 12:41pm Start: 08-31-2022 End: 09-01-2022 Insulin Glargine (Lantus U-1 00 Insulin) 100 unit/mL solution Discontinued 35 UNIT SC DAILY August 31, 2022 1:00am September 01, 2022 12:41pm Start: 08-31-2022 End: 09-01-2022 Insulin Glargine (Lantus U-1 00 Insulin) 100 unit/mL solution Discontinued 35 UNIT SC DAILY August 31, 2022 12:00am September 01, 2022 11:41am Start: 08-31-2022 Insulin Glargi ne (Lantus U-100 Insulin) 100 unit/mL solution Active 38 UNIT SC DAILY August 31, 2022 12:00am insulin glargine,hum.rec.anl og (INSULIN GLARGINE SUBQ) (4 sources) End: 11-20-2021 insulin glargine,hum.rec.anl og (INSULIN GLARGINE SUBQ) Inject under the skin . 0 11/20/2021 Discontinued (Formulary change) insulin glargine ,hum.rec.anlog (INSULIN GLARGINE SUBQ) Inject under the skin . 0 Active insulin lispro 100 unt/ml injectable solution (20 sources) Insulin Analogue Start: 12-10-2023 End: 12-17-2023 insulin lispro (AdmeLOG,HumaLOG) injection 0-30 Units Start: 09-23-2022 End: 09-30-2022 Insulin Lispro (Humalog Kwik pen Insulin) 100 unit/mL insulin pen Discontinued 25 U SC THREE TIMES DAILY BEFORE MEALS 67.5 September 23, 2022 9:25am September 30, 2022 4:43pm Start: 09-12-2022 End: 09-23-2022 Insulin Lispro (Humalog Kwik pen Insulin) 100 unit/mL insulin pen Discontinued 22 U SC THREE TIMES DAILY BEFORE MEALS September 13, 2022 12:38am September 23, 2022 9:25am Start: 09-01-2022 End: 09-12-2022 Insulin Lispro (Humalog Kwik pen Insulin) 100 unit/mL Insulin Pen Discontinued 20 U SC THREE TIMES DAILY BEFORE MEALS 0 September 01, 2022 1:00am September 13, 2022 12:38am Start: 09-01-2022 End: 09-30-2022 Start: 08-03-2022 Insulin Lispro (Humalog Kwikpen Insulin) 100 unit/mL insulin pen Active 15 UNIT SC before meals August 03, 2022 12:43pm Start: 08-03-2022 Insulin Lispro (Humalog Kwikpen Insulin) 100 unit/mL insulin pen Active 8 UNIT SC before meals August 03, 2022 12:43pm Start: 05-31-2019 End: 08-03-2022 Insulin Lispro (Humalog Kwik pen Insulin) 100 unit/mL insulin pen Discontinued 7 U SC before meals May 31, 2019 12:00am August 03, 2022 1:55pm Start: 02-09-2018 End: 03-23-2023 inject 8 [IU] by subcutaneous injection three times daily before mealtime 8 Units, Subcutaneous, 3 times daily before meals, First dose on Wed05/08/22 at 0730 Start: 09-06-2017 End: 11-20-2021 HUMALOG 100 unit/mL injectio n 7 Units 3 (three) times a day before meals . 0 09/06/2017 11/20/2021 Discontinued (Patient's Request) Start: 09-06-2017 HUMALOG 100 un it/mL injection 7 Units 3 (three) times a day before meals . 09/06/2017 Active Start: 09-06-2017 HUMALOG 100 un it/mL injection Start: 01-20-2017 End: 08-03-2022 insulin lispro ( HUMALOG KWIKPEN) 100 unit/mL pen Inject subcutaneously three times daily before meals. 0 Active HumaLOG Quantity : 0 Refills: 0 Ordered: 04-Sep-2021 Lacey Pedraza Generic Substitution Allowed Comment on above: Inject subcutaneousl y three times daily before meals. Inject 5 Units subcu taneously twice daily before meals. insulin lispro (AdmeLOG,HumaLOG) injection 0-15 Units (1 source) Start: End: insulin lispro (AdmeLOG,HumaLOG) injection 0-15 Units insulin lispro (HUMALOG KWIKPEN) 100 unit/mL pen (2 sources) insulin lispro (HUMALOG KWIKPEN) 100 unit/mL pen Inject subcutaneously three times daily before meals. 0 Active Comment on above: Inject subcutaneousl y three times daily before meals. iopamidol (1 source) Radiographic Contrast Agent Start: End: iopamidol (ISOVUE-370) 76 % injection 75 mL labetalol hydrochloride 5 mg/ml injectable solution (1 source) beta-Adrenergic Rosalio Start: End: take 10 mg intravenous route every two hours as needed lisinopril 2.5 mg oral tablet (1 source) Angiotensin Converting Enzyme Inhibitor Start: End: take 1 tablet by mouth once daily, then take 1 tablet by mouth lisinopril (PRINIVIL,ZESTRIL) 2.5 MG tablet Take 1 (one) tablet (2.5 mg total) by mouth daily. 30 tablet 0 02/09/2018 02/09/2018 Discontinued magnesium hydroxide 80 mg/ml oral suspension (1 source) Start: End: magnesium hydroxide (MOM) 400 mg/5 mL suspension 2,400 mg meclizine hydrochloride 25 mg oral tablet (20 sources) Antiemetic Start: End: meclizine (ANTIVERT) tablet 25 mg Start: 07-19-2023 End: 08-03-2023 take 1 tablet by mouth twice daily as needed for nausea meclizine (ANTIVERT) 12.5 mg tablet Indications: Vertigo Take 1 (one) tablet (12.5 mg total) by mouth 2 (two) times a day as needed for nausea or dizziness . 30 tablet 0 07/19/2023 Active montelukast 10 mg oral tablet (20 sources) Leukotriene Receptor Antagonist Start: 07-20-2006 End: 08-06-2022 take 1 tablet by mouth once daily in the evening Montelukast (Singulair) 10 mg tablet Discontinued 10 mg PO EVERY EVENING May 31, 2019 12:00am August 06, 2022 9:26am naloxone (NARCAN) injection 0.1 mg (1 source) Start: 05-07-2022 End: 05-09-2022 naloxone (NARCAN) injection 0.1 mg naproxen 250 mg oral tablet (20 sources) Nonsteroidal Anti-inflammatory Drug Start: 05-31-2019 End: 08-06-2022 take 1 tablet by mouth twice daily Naproxen 250 mg tablet Discontinued 250 mg PO TWICE A DAY May 31, 2019 12:00am August 06, 2022 9:26am nateglinide 120 mg oral tablet (2 sources) Glinide Start: 09-02-2015 End: 09-20-2017 take 60 mg by mouth four times daily nateglinide (STARLIX) 120 MG tablet Take 60 mg by mouth 4 (four) times a day Pt takes .5 (60mg) 4 times a day. 09/02/2015 09/20/2017 Discontinued nitrofurantoin, macrocrystals 50 mg oral capsule (20 sources) Start: 11-01-2019 take 1 capsule by mouth once daily Nitrofurantoin Macrocrystal 50 MG Oral Capsule TAKE 1 CAPSULE Daily Quantity: 30 Refills: 2 Ordered: 14-Jan-2022 Behzad Whitaker II, MD Start : 01-Nov-2019 Active Start: 02-09-2018 End: 02-09-2018 Start: 07-25-2015 End: 07-13-2019 nitrofurantoin (MACRODANTIN) 50 MG capsule Take 25 mg by mouth nightly . 0 07/25/2015 07/13/2019 Discontinued Start: 07-25-2015 take 1 capsule by mo [facility] once daily nitrofurantoin (MACRODANTIN) 50 MG capsule Take 50 mg by mouth daily. 07/25/2015 Active End: 08-13-2022 nitrofurantoin (MACRODANTIN) 25 mg capsule Take 25 mg by mouth. 0 Active Comment on above: Take 25 mg by mouth. nitroglycerin 0.4 mg sublingual tablet (1 source) Nitrate Vasodilator Start: 02-08-2018 End: 02-09-2018 2 ml ondansetron 2 mg/ml injection (13 sources) Serotonin-3 Receptor Antagonist Start: 12-10-2023 End: 12-10-2023 ondansetron (ZOFRAN) injection 4 mg Start: 05-08-2022 End: 05-09-2022 take 4 mg intravenously every six hours as needed for nausea 4 mg, Intravenous, Every 6 hours PRN, nausea, Starting on Wed05/08/22 at 1244 Start: 09-25-2021 take 1 tablet by tess twice daily as needed for nausea ondansetron (ZOFRAN) 4 mg tablet TAKE 1 TABLET BY MOUTH TWICE DAILY NEEDED. ONLY TAKE IF NEEDED FOR NAUSEA. MAY INTERFERE WITH OTHER MEDICATIONS 0 09/25/2021 Active Comment on above: TAKE 1 TABLET BY TESS TWICE DAILY NEEDED. ONLY TAKE IF NEEDED FOR NAUSEA. MAY INTERFERE WITH OTHER MEDICATIONS ondansetron (ZOFRAN-ODT) disintegrating tablet 4 mg (1 source) Start: 12-10-19 End: 12-17-19 take 1 tablet by mouth every six hours as needed for nausea and vomiting ondansetron (ZOFRAN-ODT) disintegrating tablet 4 mg OXYCODONE HCL/ACETAMINOPHEN (PERCOCET ORAL) (3 sources) End: 02-09-20 OXYCODONE HCL/ACETAMINOPHEN (PERCOCET ORAL) Indications: from pain Mangement Take by mouth. 02/08/2018 Discontinued OXYCODONE HCL/AC ETAMINOPHEN (PERCOCET ORAL) Indications: from pain Mangement Take by mouth. Active pantoprazole 40 mg delayed release oral tablet (1 source) Proton Pump Inhibitor Start: 05-08-2022 End: 05-09-2022 take 40 mg by mouth once daily 40 mg, Oral, Daily, First dose on Wed05/08/22 at 0900 DO NOT CRUSH OR CHEW. perflutren lipid microspheres (DEFINAlav[employer], [employer]) 0.143 mg/mL solution 0-10 mL of mixture (1 source) Start: 05-08-2022 End: 05-09-2022 perflutren lipid microspheres (DEFIN[employer]) 0.143 mg/mL solution 0-10 mL of mixture microencapsulated potassium chloride 20 meq extended release oral tablet (20 sources) Start: 12-14-2023 End: 12-14-2023 potassium chloride SA (K-DUR,KLOR-CON) CR tablet 40 mEq Start: 12-11-2023 End: 12-11-2023 take 20 mEq intravenously every two hours potassium chloride 20 mEq in 100 mL IVPB Start: 03-17-2023 take 1 tablet by mouth twice d aily potassium chloride SA (K-DUR,KLOR-CON) 20 MEQ tablet Take 1 (one) tablet (20 mEq total) by mouth 2 (two) times a day . 03/17/2023 Active Start: 02-09-2018 End: 02-09-2018 Start: 10-02-2015 End: 02-09-2018 take 1 tablet by mouth once, then take 1 tablet by mouth potassium chloride (K-DUR) 10 MEQ CR tablet Take 10 mEq by mouth nightly . 10/02/2015 02/09/2018 Discontinued 1000 ml sodium chloride 9 mg /ml injection (9 sources) Start: 12-11-2023 End: 12-13-2023 sodium chloride 0.9% (NS) Start: 12-10-2023 End: 12-17-2023 sodium chloride (PF) (NS) fl ush 5 mL Start: 12-10-2023 End: 12-10-2023 sodium chloride 0.9% (NS) dwain darcie 1,000 mL Start: 12-10-2023 End: 12-17-2023 sodium chloride (PF) (NS) fl ush 5 mL Start: 05-07-2022 End: 05-09-2022 sodium chloride (PF) (NS) fl ush 5 mL Start: 05-07-2022 End: 05-09-2022 sodium chloride (PF) (NS) fl ush 5 mL Start: 05-07-2022 End: 05-09-2022 sodium chloride (PF) (NS) fl ush 5 mL Start: 02-09-2018 End: 02-09-2018 sodium chloride 0.9% (NS) Start: 02-08-2018 End: 02-09-2018 sodium chloride (NS) 0.9 % a gitated line flush (ECHO-Bubble Study) 10 mL technetium (Tc-99m) tetrofosmin (Tc-MYOVIEW) injection 8-25 millicurie (1 source) Start: 08-11-2019 End: 08-11-2019 technetium (Tc-99m) tetrofosmin (Tc-MYOVIEW) injection 8-25 millicurie traZODone hydrochloride 50 mg oral tablet (1 source) Serotonin Reuptake Inhibitor Start: 12-10-2023 End: 12-17-2023 50 mg, Oral, Nightly PRN, sleep, Starting on Wed12/10/23 at 1659, May repeat times 1 in 30 minutes if still awake. 1 ml triamcinolone acetonide 40 mg/ml injection (20 sources) Corticosteroid Start: 05-04-2023 End: 05-04-2023 triamcinolone acetonide (KENALOG-40) injection 40 mg Start: 05-25-2022 End: 05-25-2022 triamcinolone acetonide (SHABANA ALOG-40) injection 40 mg Start: 02-12-2022 End: 02-12-2022 triamcinolone acetonide (SHABANA ALOG-40) injection 40 mg Start: 01-08-2022 End: 01-08-2022 triamcinolone acetonide (SHABANA ALOG-40) injection 40 mg Start: 09-15-2021 End: 01-10-2022 triamcinolone acetonide (SHABANA ALOG-40) injection 40 mg Start: 08-21-2021 End: 08-21-2021 triamcinolone acetonide (SHABANA ALOG-40) injection 40 mg Start: 05-05-2021 End: 05-05-2021 triamcinolone acetonide (SHABANA ALOG-40) injection 40 mg Start: 01-08-2021 End: 01-08-2021 triamcinolone acetonide (SHABANA ALOG-40) injection 40 mg Start: 08-10-2020 End: 08-10-2020 triamcinolone acetonide (SHABANA ALOG-40) injection 40 mg Start: 09-20-2017 End: 09-20-2017 triamcinolone acetonide (SHABANA ALOG-40) injection 20 mg Start: 09-20-2017 End: 09-20-2017 triamcinolone acetonide (SHABANA ALOG-40) injection 20 mg Start: 09-20-2017 End: 09-20-2017 triamcinolone acetonide (SHABANA ALOG-40) injection 20 mg 20 mg, Intra-articular, Once, 09/20/17 at 1830, For 1 dose, [facility] [id number] Given 09/20/2017 17:33 EST 20 mg Start: 09-20-2017 End: 09-20-2017 triamcinolone acetonide (SHABANA ALOG-40) injection 20 mg 20 mg, Intra-articular, Once, 09/20/17 at 1830, For 1 dose, [facility] [id number] Given 09/20/2017 17:33 EST 20 mg Start: 04-24-2017 End: 05-09-2022 triamcinolone acetonide (SHABANA ALOG) 0.1 % cream Indications: Allergic contact dermatitis due to plants, except food Apply 1 application to affected area three times daily. Apply sparingly to area for rash/itching. 80 g 0 04/24/2017 Active Comment on above: Apply 1 application to affected area three times daily. Apply sparingly to area for rash/itching. trimethoprim 100 mg oral tablet (20 sources) Dihydrofolate Reductase Inhibitor Antibacterial Start: 09-18-19 End: 10-12-19 take 1 tablet by mouth once daily Trimethoprim 100 mg tablet Discontinued 100 mg PO DAILY September 18, 2022 1:00am October 12, 2022 12:57pm Start: 08-31-2022 take 100 mg by mouth at bedtim e Trimethoprim Active 100 MG PO AT BEDTIME August 31, 2022 12:00am Start: 08-14-2022 take 1 tablet by tess th once daily trimethoprim (TRIMPEX) 100 mg tablet Take 1 (one) tablet (100 mg total) by mouth nightly . 0 08/14/2022 Active Start: 05-31-2019 End: 08-06-2022 take 1 tablet by mouth at bedtime Trimethoprim 100 mg tablet Discontinued 100 mg PO AT BEDTIME May 31, 2019 12:00am August 06, 2022 9:26am 24 hr venlafaxine 37.5 mg extended release oral capsule (20 sources) Serotonin and Norepinephrine Reuptake Inhibitor Start: 12-11-2023 End: 12-17-2023 take 150 mg by mouth once daily 150 mg, Oral, Daily, First dose on 12/11/23 at 0900, DO NOT CRUSH OR CHEW. Start: 07-15-2021 End: 08-13-2022 take 1 capsule by mouth once daily Venlafaxine 150 mg capsule,extended release 24hr Active 150 NMA PO DAILY August 06, 2022 1:00am Start: 07-15-2021 venlafaxine (E FFEXOR-XR) 150 MG 24 hr capsule Comment on above: Take 150 mg by mouth once daily. (6 sources) Start: 08-31-2022 End: 09-01-2022 Start: 08-03-2022 Problems Active Problems Problem Classification Problem Date Documented Da te Episodic/Chronic Asthma (20 sources) Asthma; Translations: [Mild intermittent asthma] Onset: 12-27-2017 12-27-2017 Chronic Cancer of other female genital organs (1 source) Vulval intraepithelial neoplasia grade 3; Translations: [Carcinoma in situ of vulva] Chronic Cardiac dysrhythmias (11 sources) Sick sinus syndrome; Translations: [Sick sinus syndrome] 09-30-2022 Chronic Chronic kidney disease (20 sources) Chronic kidney disease; Translations: [Chronic kidney disease, unspecified] Chronic Chronic kidney disease (1 source) Chronic kidney disease; Translations: [Chronic kidney disease, stage 3 unspecified] Onset: 12-24-2023 Conduction disorders (20 sources) Cardiac pacemaker in situ; Translations: [Presence of cardiac pacemaker] Onset: 02-24-2022 02-24-2022 Chronic Diabetes mellitus with complications (2 sources) Type 2 diabetes mellitus with other diabetic ophthalmic complication; Translations: [Type 2 diabetes mellitus with diabetic chronic kidney disease] Onset: 12-24-2023 Chronic Diabetes mellitus without complication (20 sources) Diabetes mellitus without complication; Translations: [Other specified diabetes mellitus without complications] Onset: 09-30-2023 Chronic Diabetes mellitus without complication (17 sources) Hyperglycemia; Translations: [Hyperglycemia, unspecified] Onset: 07-05-2023 Episodic Diseases of white blood cells (16 sources) Leukocytosis; Translations: [Elevated white blood cell count, unspecified] Onset: 09-08-2024 Chronic Disorders of lipid metabolism (20 sources) Hyperlipidemia; Translations: [Mixed hyperlipidemia] Onset: 11-06-2015 11-06-2015 Chronic Essential hypertension (8 sources) Hypertensive disorder; Translations: [Essential (primary) hypertension] 09-13-2022 Chronic Fluid and electrolyte disorders (15 sources) Dehydration; Translations: [Dehydration] Episodic Fracture of lower limb (8 sources) Closed fracture of tibial plateau; Translations: [Displaced bicondylar fracture of right tibia, subsequent encounter for closed fracture with routine healing] Episodic Genitourinary symptoms and ill-defined conditions (6 sources) Female stress incontinence; Translations: [Stress incontinence, female] Chronic Headache, including migraine (20 sources) Migraine without aura; Translations: [Migraine without aura, not intractable, without status migrainosus] Onset: 02-09-2018 02-09-2018 Chronic Headache; including migraine (1 source) Headache; including migraine; Translations: [Headache, unspecified] Onset: 12-08-2022 Hypertension with complications and secondary hypertension (2 sources) Hypertensive chronic kidney disease with stage 1 through stage 4 chronic kidney disease, or unspecified chronic kidney disease; Translations: [Hypertensive chronic kidney disease with stage 1 through stage 4 chronic kidney disease, or unspecified chronic kidney disease] Onset: 09-20-2024 Chronic Immunizations and screening for infectious disease (1 source) Needs influenza immunization; Translations: [Encounter for immunization] Episodic Intestinal obstruction without hernia (8 sources) Intestinal obstruction co-occurrent and due to decreased peristalsis; Translations: [Ileus, unspecified] 09-22-2022 Episodic Joint disorders and dislocations; trauma-related (1 source) Tear of lateral meniscus of knee; Translations: [Tear of lateral meniscus of right knee, unspecified tear type, unspecified whether old or current tear, subsequent encounter] Episodic Malaise and fatigue (20 sources) Asthenia; Translations: [Weakness] Onset: 12-08-2022 Episodic Nausea and vomiting (20 sources) Vomiting; Translations: [Vomiting, unspecified] Onset: 07-05-2023 Episodic Nutritional deficiencies (16 sources) Vitamin D deficiency; Translations: [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] Onset: 12-24-2023 Chronic Occlusion or stenosis of precerebral arteries (20 sources) Right carotid artery stenosis; Translations: [Carotid artery occlusion] Onset: 01-17-2018 02-08-2018 Chronic Osteoarthritis (20 sources) Osteoarthritis of hip; 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, bilateral] Onset: 11-03-2018 11-03-2018 Chronic Osteoarthritis (20 sources) Osteoarthritis of right hip joint; Translations: [Osteoarthritis of left hip joint] Onset: 11-03-2018 11-03-2018 Osteoporosis (20 sources) Primary osteoporosis; Translations: [Senile osteoporosis] Onset: 01-06-2021 Chronic Other acquired deformities (7 sources) Compression fracture of vertebral column; Translations: [Deforming dorsopathy, unspecified] 09-25-2022 Episodic Other aftercare (1 source) Patient encounter status; Translations: [Encounter for therapeutic drug level monitoring] Episodic Other aftercare (2 sources) Encounter for follow-up examination after completed treatment for conditions other than malignant neoplasm; Translations: [Encounter for follow-up examination after completed treatment for conditions other than malignant neoplasm] Onset: 10-25-2023 Episodic Other and ill-defined cerebrovascular disease (1 source) Cerebral atherosclerosis; Translations: [Cerebral atherosclerosis] Onset: 11-23-2023 Chronic Other and ill-defined cerebrovascular disease (1 source) Cerebral ischemia; Translations: [Cerebral ischemia] Onset: 11-23-2023 Chronic Other and ill-defined heart disease (1 source) Left ventricular cardiac dysfunction; Translations: [Heart disease, unspecified] 12-23-2021 Chronic Other connective tissue disease (3 sources) Decreased range of knee movement ; Translations: [Decreased ROM of right knee] Chronic Other connective tissue disease (2 sources) Trochanteric bursitis, right hip; Translations: [Bilateral trochanteric bursitis] Episodic Other connective tissue disease (1 source) Pain in left hand; Translations: [Hand pain, left] Episodic Other connective tissue disease (1 source) Pain of left calf; Translations: [Pain in left lower leg] 05-29-2023 Episodic Other connective tissue disease (1 source) Nocturnal muscle spasm ; Translations: [Other muscle spasm] 08-17-2023 Episodic Other connective tissue disease (1 source) Bilateral trochanteric bursitis; Translations: [Trochanteric bursitis of both hips] Other fractures (2 sources) Closed fracture thoracic vertebra, wedge; Translations: [Wedge compression fracture of unspecified thoracic vertebra, subsequent encounter for fracture with routine healing] 08-17-2023 Episodic Other fractures (2 sources) Wedge compression fracture of unspecified thoracic vertebra, initial encounter for closed fracture; Translations: [Wedge compression fracture of unspecified thoracic vertebra, initial encounter for closed fracture] Onset: 09-30-2023 Episodic Other gastrointestinal disorders (15 sources) Constipation; Translations: [Constipation, unspecified] 09-22-2022 Episodic Other hematologic conditions (1 source) Raised cardiac enzyme or marker; Translations: [Other specified abnormalities of plasma proteins] Episodic Other hereditary and degenerative nervous system conditions (5 sources) Mild cognitive disorder ; Translations: [Mild cognitive impairment, so stated] Onset: 02-11-2021 Chronic Other hereditary and degenerative nervous system conditions (20 sources) Mild cognitive impairment, so stated; Translations: [Mild cognitive impairment, so stated] Onset: 02-11-2021 02-11-2021 Chronic Other hereditary and degenerative nervous system conditions (1 source) Degenerative disease of nervous system, unspecified; Translations: [Degenerative disease of nervous system, unspecified] Onset: 11-23-2023 Chronic Other injuries and conditions due to external causes (6 sources) H/O: vertebral fracture; Translations: [Personal history of (healed) traumatic fracture] 10-08-2022 Episodic Other injuries and conditions due to external causes (3 sources) Personal history of (healed) traumatic fracture; Translations: [Personal history of traumatic fracture] 10-08-2022 Episodic Other lower respiratory disease (1 source) Dyspnea; Translations: [SOB (shortness of breath)] Episodic Other lower respiratory disease (1 source) Persistent cough; Translations: [Persistent cough] Episodic Other lower respiratory disease (4 sources) Multiple nodules of lung; Translations: [Other nonspecific abnormal finding of lung field] Episodic Other nervous system disorders (2 sources) Normal pressure hydrocephalus; Translations: [(Idiopathic) normal pressure hydrocephalus] 12-02-2023 Chronic Other nervous system disorders (4 sources) (Idiopathic) normal pressure hydrocephalus; Translations: [(Idiopathic) normal pressure hydrocephalus] Onset: 12-10-2023 Chronic Other nervous system disorders (1 source) Hydrocephalus, unspecified; Translations: [Hydrocephalus, unspecified] Onset: 12-24-2023 Chronic Other nervous system disorders (6 sources) Abnormal gait; Translations: [Abnormality of gait] Episodic Other non-traumatic joint disorders (4 sources) Joint pain; Translations: [Pain in unspecified joint] Episodic Other non-traumatic joint disorders (3 sources) Knee pain; Translations: [Right knee pain] Episodic Other non-traumatic joint disorders (3 sources) Decreased range of knee movement; Translations: [Stiffness of joint, not elsewhere classified, lower leg] Episodic Other non-traumatic joint disorders (3 sources) Pain in right knee; Translations: [Right knee pain] Episodic Other nutritional; endocrine; and metabolic disorders (4 sources) Obese class I; Translations: [Obesity, unspecified] Onset: 03-30-2022 03-30-2022 Chronic Other nutritional; endocrine; and metabolic disorders (11 sources) Obesity; Translations: [Obesity, unspecified] 08-06-2022 Chronic Other nutritional; endocrine; and metabolic disorders (8 sources) Obesity, unspecified; Translations: [Obesity, unspecified] Chronic Other upper respiratory infections (2 sources) Acute sinusitis; Translations: [Acute sinusitis, unspecified] 09-04-2021 Episodic Paralysis (3 sources) Hemiplegia, unspecified affecting left nondominant side; Translations: [Hemiplegia, unspecified affecting left nondominant side] Onset: 12-08-2022 Chronic Residual codes; unclassified (2 sources) Obstructive sleep apnea syndrome; Translations: [YVONNE (obstructive sleep apnea)] Chronic Residual codes; unclassified (1 source) Sleep apnea; Translations: [Sleep apnea, unspecified type] Chronic Residual codes; unclassified (8 sources) H/O Spinal surgery; Translations: [Other specified postprocedural states] 02-02-2023 Episodic Spondylosis; intervertebral disc disorders; other back problems (20 sources) Spinal stenosis; Translations: [Spinal stenosis, site unspecified] Onset: 05-28-2023 09-25-2022 Episodic Sprains and strains (2 sources) Sprain of lateral collateral ligament of knee; Translations: [Sprain of lateral collateral ligament of right knee, initial encounter] Episodic Transient cerebral ischemia (20 sources) Transient cerebral ischemia; Translations: [Transient cerebral ischemic attack, unspecified] Onset: 11-06-2015 11-06-2015 Chronic Unclassified (1 source) Closed fracture of right tibial plateau; Translations: [Closed fracture of right tibial plateau, initial encounter] Unclassified (2 sources) SINUS WHEEZING 09-04-2021 Comment on above: SINUS WHEEZING Past or Other Problems Problem Classification Problem Date Documented Da te Episodic/Chronic Abdominal pain (20 sources) Abdominal pain; Translations: [Unspecified abdominal pain] Onset: 3 09-25-2022 Episodic Acute and unspecified renal failure (16 sources) Acute injury of kidney; Translations: [Acute kidney failure, unspecified] Onset: 3 07-05-2023 Episodic Allergic reactions (3 sources) Allergy status to sulfonamides status; Translations: [Allergy status to penicillin] Onset: 4 Episodic Blindness and vision defects (10 sources) Eye / vision finding; Translations: [Unspecified visual disturbance] Onset: 4 09-30-2023 Episodic Cardiac dysrhythmias (20 sources) Tachycardia; Translations: [Tachycardia, unspecified] Onset: 9 08-09-2019 Episodic Complication of device; implant or graft (20 sources) Complication associated with cardiac pacemaker lead; Translations: [Unspecified complication of cardiac and vascular prosthetic device, implant and graft, initial encounter] Onset: 2 Episodic Conditions associated with dizziness or vertigo (20 sources) Dizziness; Translations: [Dizziness and giddiness] Onset: 6 10-07-2015 Episodic E Codes: Fall (13 sources) Fall; Translations: [Unspecified fall, initial encounter] Onset: 4 09-30-2023 Episodic Genitourinary symptoms and ill-defined conditions (8 sources) Nocturia; Translations: [Nocturia] Onset: 4 Episodic Inflammatory diseases of female pelvic organs (1 source) Acute vaginitis; Translations: [Acute vaginitis] Onset: 4 Episodic Mood disorders (2 sources) Mood disorders Onset: 4 10-02-2023 Other acquired deformities (20 sources) Mallet finger; Translations: [Mallet finger of left finger(s)] Onset: 9 12-01-2018 Episodic Other aftercare (1 source) 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; Translations: [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] Onset: 4 Episodic Other aftercare (1 source) Other long term care administrator (current) drug therapy; Translations: [Other mcc (current) drug therapy] Onset: 4 Episodic Other circulatory disease (20 sources) Orthostatic hypotension; Translations: [Orthostatic hypotension] Onset: 8 02-09-2018 Episodic Other circulatory disease (4 sources) Orthostatic hypotension; Translations: [Orthostatic hypotension] Onset: 8 10-12-2022 Episodic Other circulatory disease (4 sources) Personal history of transient ischemic attack (TIA), and cerebral infarction without residual deficits; Translations: [Prsnl hx of TIA (TIA), and cereb infrc w/o resid deficits] Onset: 3 Episodic Other connective tissue disease (2 sources) Other muscle spasm; Translations: [Other muscle spasm] Onset: 3 Episodic Other connective tissue disease (4 sources) Pain in left lower leg; Translations: [Pain in left lower leg] Onset: 3 Episodic Other fractures (16 sources) Closed fracture lumbar vertebra, wedge ; Translations: [Wedge compression fracture of unspecified lumbar vertebra, subsequent encounter for fracture with delayed healing] Onset: 3 07-19-2023 Episodic Other fractures (14 sources) Compression fracture of L2; Translations: [Wedge compression fracture of second lumbar vertebra, initial encounter for closed fracture] Onset: 3 07-05-2023 Episodic Other fractures (10 sources) Fracture of seventh thoracic vertebra; Translations: [Unspecified fracture of T7-T8 vertebra, initial encounter for closed fracture] Onset: 4 09-30-2023 Episodic Other fractures (10 sources) Compression fracture of thoracic spine; Translations: [Wedge compression fracture of unspecified thoracic vertebra, initial encounter for closed fracture] Onset: 4 Resolved: 4 10-01-2023 Episodic Other fractures (2 sources) Wedge compression fracture of unspecified thoracic vertebra, subsequent encounter for fracture with routine healing; Translations: [Wedge compression fracture of unspecified thoracic vertebra, subsequent encounter for fracture with routine healing] Onset: 3 Episodic Other fractures (2 sources) Wedge compression fracture of unspecified lumbar vertebra, subsequent encounter for fracture with delayed healing; Translations: [Wedge compression fracture of unspecified lumbar vertebra, subsequent encounter for fracture with delayed healing] Onset: 3 Episodic Other fractures (2 sources) Wedge compression fracture of second lumbar vertebra, initial encounter for closed fracture; Translations: [Wedge compression fracture of second lumbar vertebra, initial encounter for closed fracture] Onset: 3 Episodic Other fractures (2 sources) Wedge compression fracture of fourth lumbar vertebra, initial encounter for closed fracture; Translations: [Wedge compression fracture of fourth lumbar vertebra, initial encounter for closed fracture] Onset: 3 Episodic Other gastrointestinal disorders (2 sources) Diarrhea, unspecified; Translations: [Diarrhea, unspecified] Onset: 4 Episodic Other injuries and conditions due to external causes (10 sources) Abrasion; Translations: [Other injury of unspecified body region, initial encounter] Onset: 4 10-01-2023 Episodic Other lower respiratory disease (20 sources) Dyspnea on exertion; Translations: [Other forms of dyspnea] Onset: 9 08-09-2019 Episodic Other lower respiratory disease (2 sources) Other disorders of lung; Translations: [Other disorders of lung] Onset: 4 Episodic Other nervous system disorders (20 sources) [place] palsy of right side of face; 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] Onset: 1 Episodic Other nutritional; endocrine; and metabolic disorders (10 sources) H/O: diabetes mellitus; Translations: [Personal history of other endocrine, metabolic, and immunity disorders] Onset: 1 04-09-2021 Episodic Other screening for suspected conditions (not mental disorders or infectious disease) (20 sources) Electrocardiogram abnormal; Translations: [Abnormal electrocardiogram [ECG] [EKG]] Onset: 3 08-09-2019 Episodic Other skin disorders (4 sources) Breast changes; Translations: [Changes in skin texture] Onset: 3 01-26-2013 Episodic Pathological fracture (5 sources) Primary osteoporosis; Translations: [Age-related osteoporosis with current pathological fracture, unspecified site, subsequent encounter for fracture with routine healing] Onset: 1 Episodic Residual codes; unclassified (7 sources) Other specified postprocedural states; Translations: [Other postprocedural status] Onset: 3 10-08-2022 Episodic Residual codes; unclassified (3 sources) Pain, unspecified; Translations: [Pain, unspecified] Onset: 3 Episodic Residual codes; unclassified (1 source) Acquired absence of other specified parts of digestive tract; Translations: [Acquired absence of other specified parts of digestive tract] Onset: 4 Episodic Residual codes; unclassified (1 source) Acquired absence of other genital organ(s); Translations: [Acquired absence of other genital organ(s)] Onset: 4 Episodic Syncope (20 sources) Syncope; Translations: [Syncope and collapse] Onset: 2 Episodic Unclassified (20 sources) Echocardiogram abnormal; Translations: [Abnormal findings on diagnostic imaging of heart and coronary circulation] Onset: 6 10-07-2015 Episodic Urinary tract infections (20 sources) Recurrent urinary tract infection; Translations: [Urinary tract infection, site not specified] Onset: 4 Episodic NEGATED: Highlighted row has not occurred!Residual codes; unclassified (20 sources) Disease Episodic Results Test Name Value Interpretation Reference Range Facility CARDIAC REMOTE DEVICE CHECKo n 02-28-2025 Remote Interrogation of Dual Chamber Pacemaker Notes/Summary: Stable Device function Est. Battery: 7 years Presenting EGM: /VS 60-70s bpm PRE WAVE ASSEMBLER: 0% AT/AF [place]: <1% since 08/10/2023 AHR: 3 episodes since 10/25/2024 lasting 1-3 seconds. VHR: 0 since 10/25/2024 Histograms: Appropriate rate distribution, 70s-110s bpm Next remote: 04/25/2025 Next In-clinic: 08/07/2025 NOV: Dr Marlene Hubbard Signature: Gómez STEWART RN / reviewed and approved by Evelyne Nieto RN I have reviewed the device function, programmed parameters, and heart rhythm. Patient will return to the Device Clinic &/or remote follow up and provider visit per protocol. Surya Brown MD - 02/28/2025 Remote Interrogation of Dual Chamber Pacemaker Notes/Summary: Stable Device function Est. Battery: 7 years Presenting EGM: /VS 60-70s bpm PRE WAVE ASSEMBLER: 0% AT/AF [place]: <1% since 08/10/2023 AHR: 3 episodes since 10/25/2024 lasting 1-3 seconds. VHR: 0 since 10/25/2024 Histograms: Appropriate rate distribution, 70s-110s bpm Next remote: 04/25/2025 Next In-clinic: 08/07/2025 NOV: Dr Marlene Hubbard Signature: Gómez STEWART RN / reviewed and approved by Evelyne Nieto RN I have reviewed the device function, programmed parameters, and heart rhythm. Patient will return to the Device Clinic &/or remote follow up and provider visit per protocol. [facility] CARDIAC REMOTE DEVICE CHECKO rdered By: Surya Naranjo on 02-28-2025 [facility] Work Phone: Hemoglobin A1c percentageOrd ered By: Benjamín Tavarez on 01-24-2025 HbA1c (Bld) [Mass fraction] 8.1 % High <5.7 [facility] Comment on above: Normal < 5.7 % Predi abetic 5.7 - 6.4 % Diabetic >or= 6.5 % Please note range changes. CNCOon 01-03-2025 CNCO Letter Text Normal [facility] CARDIAC REMOTE DEVICE CHECKo n 11-09-2024 Remote Interrogation of Pacemaker Notes/Summary: Stable Device function Est. Battery: 7yrs Presenting EGM: /VS 80s PRE WAVE ASSEMBLER: 0% SINCE 07/26/24: AT/AF [place]: <1% AHR: 3 VHR: 1 Histograms: Appropriate rate distribution Next remote: quarterly Next In-clinic: 12/2024 Signature: Ethan STEWARTVIKA I have reviewed the device function, programmed parameters, and heart rhythm. Patient will return to the Device Clinic &/or remote follow up and provider visit per protocol. Clarita Wang MD - 11/09/2024 Remote Interrogation of Pacemaker Notes/Summary: Stable Device function Est. Battery: 7yrs Presenting EGM: /VS 80s PRE WAVE ASSEMBLER: 0% SINCE 07/26/24: AT/AF [place]: <1% AHR: 3 VHR: 1 Histograms: Appropriate rate distribution Next remote: quarterly Next In-clinic: 12/2024 Signature: Ethan STEWART RN I have reviewed the device function, programmed parameters, and heart rhythm. Patient will return to the Device Clinic &/or remote follow up and provider visit per protocol. [facility] CARDIAC REMOTE DEVICE CHECKO rdered By: Clarita Merrill on 11-09-2024 [facility] Work Phone: CARDIAC REMOTE DEVICE CHECKo n 07-26-2024 Alert Remote Interrogation of Dual Chamber Pacemaker in Pace mate for AF [place], no alert on [facility] web site Notes/Summary: Stable Device function Presenting EGM: / VS @ 75 bpm Battery Longevity: 7.5 yrs. AP: 0 % PRE WAVE ASSEMBLER: 0 % AT/AF [place]: <1% since 08/11/23 AHR: 2 ATR episodes reported for 1's w/ V. Rates 88-107 bpm VHR: 0 reported since last remote Histograms: Appropriate rate distribution, 70-110 Next remote: 10/25/24 Next In-clinic:08/15/24 NOV: Signature: Evelyne Nieto RN I have reviewed the device function, programmed parameters, and heart rhythm. Patient will return to the Device Clinic &/or remote follow up and provider visit per protocol. Clarita Wang MD - 07/26/2024 Alert Remote Interrogation of Dual Chamber Pacemaker in Pace mate for AF [place], no alert on [facility] web site Notes/Summary: Stable Device function Presenting EGM: / VS @ 75 bpm Battery Longevity: 7.5 yrs. AP: 0 % PRE WAVE ASSEMBLER: 0 % AT/AF [place]: <1% since 08/11/23 AHR: 2 ATR episodes reported for 1's w/ V. Rates 88-107 bpm VHR: 0 reported since last remote Histograms: Appropriate rate distribution, 70-110 Next remote: 10/25/24 Next In-clinic:08/15/24 NOV: Signature: Evelyne Nieto RN I have reviewed the device function, programmed parameters, and heart rhythm. Patient will return to the Device Clinic &/or remote follow up and provider visit per protocol. [facility] CARDIAC REMOTE DEVICE CHECKO rdered By: Clarita Merrill on 07-26-2024 [facility] Work Phone: CARDIAC REMOTE DEVICE CHECKo n 05-23-2024 04/26/2024 Remote Interrogation of Pacemaker Notes/Summary: Stable Device function; next remote 07/26/2024, next clinic 08/15/2024. Presenting EGM: SR 80s AT/AF [place]: <1% since 08/10/2023 AHR: 2<1 minute in duration. Review of egms show paroxysmal AFL VHR: 0 Histograms: Appropriate rate distribution, 80 bpm to 130 bpm Signature: Faith STEWART RN I have reviewed the device function, programmed parameters, and heart rhythm. Patient will return to the Device Clinic &/or remote follow up and provider visit per protocol. Clarita Wang MD - 05/23/2024 04/26/2024 Remote Interrogation of Pacemaker Notes/Summary: Stable Device function; next remote 07/26/2024, next clinic 08/15/2024. Presenting EGM: SR 80s AT/AF [place]: <1% since 08/10/2023 AHR: 2<1 minute in duration. Review of egms show paroxysmal AFL VHR: 0 Histograms: Appropriate rate distribution, 80 bpm to 130 bpm Signature: Faith STEWART RN I have reviewed the device function, programmed parameters, and heart rhythm. Patient will return to the Device Clinic &/or remote follow up and provider visit per protocol. [facility] CARDIAC REMOTE DEVICE CHECKO rdered By: Clarita Merrill on 05-23-2024 [facility] Work Phone: CARDIAC REMOTE DEVICE CHECKo n 04-26-2024 Radiology Study observation (narrative) [facility] AMMONIAon 02-18-2024 Ammonia (P) [Moles/Vol] 10.0 umol/L Low 11.0 - 32.0 [facility] Comment on above: Performed By: #### 2 [id number] #### [facility],[address] [place] [id number] Bacteria Ur Culton 4 Bacteria identified Cx Nom (U) CULTURE, URINE: No growth (<1,000 CFU/ml) Normal [facility] Comment on above: Performed By: #### 6 30-4 #### [facility] CLIA [id number] [place] CBC + DIFFon 02-17-2024 Baso # 0.06 x10EE3/UL Normal 0.00 - 0.10 [facility] Comment on above: Performed By: #### 2 [id number] #### [facility],[address] [place] [address]309 Basophils/100 WBC (Bld) 0.5 % Normal 0.0 - 2.[address] [facility] Comment on above: Performed By: #### 2 [id number] #### [facility],[address] [place] [address]38 CBC + DIFF Normal [facility] Comment on above: Result Comment: CBC- COMPLETE BLOOD COUNT Performed By: #### 2 [id number] #### [facility],[address] [place] [address] 11849 EO # 0.71 x10EE3/UL High 0.00 - 0.50 [facility] Comment on above: Performed By: #### 2 [id number] #### [address] [address] Eosinophils/100 WBC (Bld) 5.7 % Normal 0.0 - 7.0 [facility] Comment on above: Performed By: #### 2 [id number] #### [facility],[address] [place] [address] [id number] Erythrocyte distribution width (RBC) [Ratio] 15.1 % Normal 12.0 - 15.6 [facility] Comment on above: Performed By: #### 2 [id number] #### [facility],[address] [place] [address] Hematocrit (Bld) [Volume fraction] 43.2 % Normal 34.0 - 46.0 [facility] Comment on above: Performed By: #### 2 [id number] #### [facility],[address] [place] [address] Hemoglobin (Bld) [Mass/Vol] 14.0 g/dL Normal 12.0 - 16.0 [facility] Comment on above: Performed By: #### 2 [id number] #### [facility],[address] [place] [address] Lymph # 2.49 x10EE3/UL Normal 0.80 - 2.80 [facility] Comment on above: Performed By: #### 2 [id number] #### [facility],[address] [place], [place] [id number] Lymphocytes/100 WBC (Bld) 19.9 % Low 20.0 - 45.0 [facility] Comment on above: Performed By: #### 2 [id number] #### [facility],[address] [place] [address] MANUAL DIFF N/A Normal [facility] Comment on above: Performed By: #### 2 [id number] #### [facility],[address] [place], [place] [id number] MCH (RBC) [Entitic mass] 27 pg Normal 27 - 33 [facility] Comment on above: Performed By: #### 2 [id number] #### [facility],[address] [place], [place] [id number] MCHC 32 X10 3 Normal 32 - 36 [facility] Comment on above: Performed By: #### 2 [id number] #### [facility],[address] [place], [place] [id number] MCV (RBC) [Entitic vol] 83 fL Normal 80 - 99 [facility] Comment on above: Performed By: #### 2 [id number] #### [facility],[address] [place] [address] [place] # 1.09 x10EE3/UL High 0.20 - 1.00 [facility] Comment on above: Performed By: #### 2 [id number] #### [facility],[address] [place] [address] MONOS % 8.7 % Normal 0.0 - 10.0 [facility] Comment on above: Performed By: #### 2 [id number] #### [facility],[address] [place] [address] Morphology Corey (Bld) [Interp] N/A Normal [facility] Comment on above: Performed By: #### 2 [id number] #### [facility],[address] [place] [address] Neut # 8.19 x10EE3/UL High 1.50 - 7.10 [facility] Comment on above: Performed By: #### 2 [id number] #### [facility],[address] [place] [address] Neutrophils/100 WBC (Bld) 65.3 % Normal 46.0 - 76.0 [facility] Comment on above: Performed By: #### 2 [id number] #### [facility],[address] [place] [address] PLATELET 334 x10EE3/UL Normal 150 - 450 [facility] Comment on above: Performed By: #### 2 64735 #### [facility],[address] [place] [address] Platelet mean volume (Bld) [Entitic vol] 7.7 fL Normal 6.6 - 10.5 [facility] Comment on above: Result Comment: AUTO MATED DIFFERENTIAL Performed By: #### 2 92741 #### [facility],[address] [place] [address] 90400 RBC 5.22 x 10EE6/UL Normal 4.10 - 5.30 [facility] Comment on above: Performed By: #### 2 53297 #### [facility],[address] [place] [address] 60355 WBC 12.5 x 10EE3/UL High 4.5 - 10.8 [facility] Comment on above: Performed By: #### 2 30690 #### [facility],[address] [place] [address] 33372 CMP with eGFRon 02-17-2024 AGE 73 years Normal [facility] Comment on above: Performed By: #### 2 31724 #### [facility],[address] [place] [address] 33162 Albumin [Mass/Vol] 3.0 g/dL Low 3.4 - 5.0 [facility] Comment on above: Performed By: #### 2 66434 #### [facility],[address] [place] [address] 48443 Albumin/Globulin [Mass ratio] 0.6 {ratio} Low 0.9 - 1.6 [facility] Comment on above: Performed By: #### 2 45653 #### [facility],[address] [place] [address] 69595 ALK PHOS 159 U/L High 46 - 116 [facility] Comment on above: Performed By: #### 2 09909 #### [facility],[address] [place] [address] 42564 ALT [Catalytic activity/Vol] 36 U/L Normal 16 - 63 [facility] Comment on above: Performed By: #### 2 92222 #### [facility],[address] [place] [address] 68827 Anion gap [Moles/Vol] 14 mmol/L Normal 10 - 20 [facility] Comment on above: Performed By: #### 2 39151 #### [facility],[address] [place] [address] 26523 AST [Catalytic activity/Vol] 24 U/L Normal 13 - 39 [facility] Comment on above: Performed By: #### 2 50071 #### [facility],[address] [place] [address] 82825 B/C RATIO 20 ratio Normal 0 - 30 [facility] Comment on above: Performed By: #### 2 89920 #### [facility],[address] [place] [address] 71852 Bilirubin [Mass/Vol] 0.3 mg/dL Normal 0.2 - 1.0 [facility] Comment on above: Performed By: #### 2 71361 #### [facility],[address] [place] [address] 97933 Calcium [Mass/Vol] 10.2 mg/dL High 8.5 - 10.1 [facility] Comment on above: Performed By: #### 2 92266 #### [facility],[address] [place] [address] 99619 Chloride [Moles/Vol] 100 mmol/L Normal 98 - 107 [facility] Comment on above: Performed By: #### 2 73573 #### [facility],[address] [place] [address] 31269 CMP with eGFR Normal [facility] Comment on above: Result Comment: COMP REHENSIVE METABOLIC PANEL Performed By: #### 2 97758 #### [facility],[address] [place] [address] 93325 CO2 [Moles/Vol] 25.8 mmol/L Normal 21.0 - 32.0 [facility] Comment on above: Performed By: #### 2 45541 #### [facility],[address] [place] [address] 62646 Creatinine [Mass/Vol] 1.43 mg/dL High 0.55 - 1.02 [facility] Comment on above: Performed By: #### 2 97097 #### [facility],[address] [place] [address] 84833 eGFR 36 ML/MINUTE Low 60 - 999 [facility] Comment on above: Performed By: #### 2 62950 #### [facility],[address] [place] [address] 39223 eGFR(AA) 44 ML/MINUTE Low 60 - 999 [facility] Comment on above: Result Comment: ACCO RDING TO THE NATIONAL KIDNEY DISEASE EDUCATION PROGRAM(NKDE), A NORMAL eGFR IS A VALUE GREATER THAN OR EQUAL TO 60 ML/MIN/1.73 SQ METERS. CHRONIC KIDNEY DISEASE: <60mL/MIN/1.73 SQ METERS KIDNEY FAILURE: <15mL/MIN/1.73 SQ METERS THIS TEST SHOULD ONLY BE USED FOR PATIENTS 18 YEARS OF AGE AND OLDER. Performed By: #### 2 64351 #### [address] [address] Globulin (S) [Mass/Vol] 5.2 g/dL High 1.5 - 3.[address] [facility] Comment on above: Performed By: #### 2 68275 #### [address] [address] Glucose [Mass/Vol] 180 mg/dL High 74 - 106 [facility] Comment on above: Performed By: #### 2 49953 #### [address] [address] Potassium [Moles/Vol] 4.2 mmol/L Normal 3.5 - 5.1 [facility] Comment on above: Performed By: #### 2 57053 #### [address] [address] Protein [Mass/Vol] 8.2 g/dL Normal 6.4 - 8.2 [facility] Comment on above: Performed By: #### 2 28810 #### [address] [address] Sodium [Moles/Vol] 136 mmol/L Normal 136 - 145 [facility] Comment on above: Performed By: #### 2 86351 #### [facility],[address] [place], [place] [id number] Urea nitrogen [Mass/Vol] 29 mg/dL High 7 - 18 [facility] Comment on above: Performed By: #### 2 95639 #### [facility],[address] [place] [address] URINALYSISon 02-17-2024 Amorphous NONE Normal [facility] Comment on above: Performed By: #### 2 38770 #### [facility],[address] [place] [address] Bacteria 4+ Normal [facility] Comment on above: Performed By: #### 2 06950 #### [facility],[address] [place] [address] Bilirubin Ql (U) Negative Normal NORMAL: NEGATIVE [facility] Comment on above: Performed By: #### 2 89581 #### [facility],[address] [place] [address] Casts NONE Normal [facility] Comment on above: Performed By: #### 2 00933 #### [facility],[address] [place], [place] [id number] Clarity (U) sl.cloudy Normal NORMAL: CLEAR [facility] Comment on above: Performed By: #### 2 62051 #### [facility],[address] [place] [address] 05534 Color (U) yellow Normal NORMAL: YELLOW [facility] Comment on above: Performed By: #### 2 51267 #### [facility],[address] [place] [address] 66994 Crystals LM Nom (Urine sed) NONE Normal [facility] Comment on above: Performed By: #### 2 63720 #### [facility],[address] [place] [address] 46124 Epi Cells FEW Normal [facility] Comment on above: Performed By: #### 2 07632 #### [facility],[address] [place] [address] 51810 Glucose Ql (U) NORM Normal NORMAL: NORMAL [facility] Comment on above: Performed By: #### 2 20969 #### [facility],[address] [place] [address] 31218 Hemoglobin Ql (U) 25 Abnormal NORMAL: NEGATIVE [facility] Comment on above: Performed By: #### 2 27396 #### [facility],[address] [place] [address] 21126 Ketone Negative Normal NORMAL: NEGATIVE [facility] Comment on above: Performed By: #### 2 32683 #### [facility],[address] [place] [address] 48933 Leukocytes 500 Abnormal NORMAL: NEGATIVE [facility] Comment on above: Performed By: #### 2 83970 #### [facility],[address] [place], [place] [phone] Mucous NONE Normal [facility] Comment on above: Performed By: #### 2 66457 #### [facility],[address] [place] [address] 28610 Nitrite Ql (U) Negative Normal NORMAL: NEGATIVE [facility] Comment on above: Performed By: #### 2 88907 #### [facility],[address] [place] [address] 52869 pH (U) 6 [pH] Normal NORMAL: 5.0-8.0 [facility] Comment on above: Performed By: #### 2 58788 #### [facility],[address] [place] [address] 85783 Protein Ql (U) 30 Abnormal NORMAL: NEGATIVE [facility] Comment on above: Performed By: #### 2 73399 #### [facility],[address] [place] [address] Rbc 0-5 Normal 0-3/hpf [facility] Comment on above: Performed By: #### 2 82942 #### [facility],[address] [place] [address] Sp [place] 1.015 Normal NORMAL: 1.010-1.030 [facility] Comment on above: Performed By: #### 2 25108 #### [facility],[address] [place] [address] Specimen Type Catheter Normal [facility] Comment on above: Performed By: #### 2 64123 #### [facility],[address] [place] [address] Urinalysis dipstick W Reflex Microscopic panel (U) SEE BELOW Normal [facility] Comment on above: Result Comment: MICR OSCOPIC Performed By: #### 2 25105 #### [facility],[address] [place] [address] Urobilinog NORM Normal NORMAL: NORMAL [facility] Comment on above: Performed By: #### 2 47748 #### [facility],[address] [place], [place] [phone] WBC (U) [#/Vol] /uL Normal 0-5/hpf [facility] Comment on above: Performed By: #### 2 93023 #### [facility],[address] [place] [address] Yeast NONE Normal [facility] Comment on above: Performed By: #### 2 07308 #### [facility],[address] [place], [place] [address] URINE CULTURE [CCL]on 2023 Bacteria identified Cx Nom (U) URCUL See Results Below See Below CULTURE, URINE No growth (<1,000 CFU/ml) SOURCE: Urine (Nonspecific) [facility] [address] [place] [address] Sukhjinder Fregoso III, M.D. [id number] Normal [facility] Comment on above: Performed By: #### 2 89408 #### [facility],[address] [place] [address] 61885 URINE CULTURE [CCL]on 2023 Bacteria identified Cx Nom (U) URCUL See Results Below See Below CULTURE, URINE NORMAL UROGENITAL CHRIS 10,000 -<50,000 CFU/ml Normal urogenital chris SOURCE: Urine (Nonspecific) [facility] [address] [place] [address] Sukhjinder Fregoso III, M.D. [id number] SEND TO NO Normal [facility] Comment on above: Performed By: #### 2 63046 #### [facility],[address] [place] [address] 15095 URINALYSISon 01-28-2024 Amorphous NONE Normal [facility] Comment on above: Performed By: #### 2 43560 #### [facility],[address] [place] [address] 98950 Bacteria 4+ Normal [facility] Comment on above: Performed By: #### 2 23316 #### [facility],[address] [place] [address] 61669 Bilirubin Ql (U) Negative Normal NORMAL: NEGATIVE [facility] Comment on above: Performed By: #### 2 03030 #### [facility],[address] [place] [address] 17794 Casts NONE Normal [facility] Comment on above: Performed By: #### 2 70960 #### [facility],[address] [place] [address] 08319 Clarity (U) very cloudy Normal NORMAL: CLEAR [facility] Comment on above: Performed By: #### 2 77635 #### [facility],[address] [place] [address] 79596 Color (U) yellow Normal NORMAL: YELLOW [facility] Comment on above: Performed By: #### 2 63414 #### [facility],[address] [place] [address] 77529 Crystals LM Nom (Urine sed) NONE Normal [facility] Comment on above: Performed By: #### 2 23080 #### [facility],[address] [place] [address] 35834 Epi Cells OCC Normal [facility] Comment on above: Performed By: #### 2 05513 #### [facility],[address] [place] [address] 43268 Glucose Ql (U) 250 Abnormal NORMAL: NORMAL [facility] Comment on above: Performed By: #### 2 86498 #### [facility],[address] [place] [address] 62711 Hemoglobin Ql (U) 50 Abnormal NORMAL: NEGATIVE [facility] Comment on above: Performed By: #### 2 27449 #### [facility],[address] [place] [address] 75943 Ketone Negative Normal NORMAL: NEGATIVE [facility] Comment on above: Performed By: #### 2 64944 #### [facility],[address] [place] [address] 11812 Leukocytes 500 Abnormal NORMAL: NEGATIVE [facility] Comment on above: Performed By: #### 2 66806 #### [facility],[address] [place] [address] 61311 Mucous NONE Normal [facility] Comment on above: Performed By: #### 2 84750 #### [facility],[address] [place] [address] 59938 Nitrite Ql (U) Negative Normal NORMAL: NEGATIVE [facility] Comment on above: Performed By: #### 2 75149 #### [facility],[address] [place] [address] 18856 pH (U) 5 [pH] Normal NORMAL: 5.0-8.0 [facility] Comment on above: Performed By: #### 2 31871 #### [facility],[address] [place] [address] 57013 Protein Ql (U) 30 Abnormal NORMAL: NEGATIVE [facility] Comment on above: Performed By: #### 2 26731 #### [facility],[address] [place] [address] Rbc 0-5 Normal 0-3/hpf [facility] Comment on above: Performed By: #### 2 26341 #### [facility],[address] [place] [address] Sp [place] 1.020 Normal NORMAL: 1.010-1.030 [facility] Comment on above: Performed By: #### 2 09264 #### [facility],[address] [place] [address] Specimen Type Zimmerman Normal [facility] Comment on above: Performed By: #### 2 08694 #### [facility],[address] [place], [place] [phone] Urinalysis dipstick W Reflex Microscopic panel (U) SEE BELOW Normal [facility] Comment on above: Result Comment: MICR OSCOPIC Performed By: #### 2 59590 #### [facility],[address] [place], [place] [phone] Urobilinog NORM Normal NORMAL: NORMAL [facility] Comment on above: Performed By: #### 2 33711 #### [facility],[address] [place] [address] 68359 WBC (U) [#/Vol] /uL Normal 0-5/hpf [facility] Comment on above: Performed By: #### 2 77505 #### [facility],[address] [place] [address] 37432 Yeast NONE Normal [facility] Comment on above: Performed By: #### 2 06994 #### [facility],[address] [place] [address] 93217 Bacteria Ur Culton 4 Bacteria identified Cx Nom (U) ORGANISM ID: 1 10,000 -<50,000 CFU/ml Normal urogenital chris Normal [facility] Comment on above: Performed By: #### 6 30-4 #### [facility] CLIA [id number] [address] [place] [address] [place] URINE CULTURE [CCL]on 2023 Bacteria identified Cx Nom (U) URCUL See Results Below See Below CULTURE, URINE No growth (<1,000 CFU/ml) SOURCE: Urine (Nonspecific) [place] [address] Sukhjinder Fregoso III, M.D. [id number] SEND TO NO Normal [facility] Comment on above: Performed By: #### 2 53278 #### [facility],[address] [place] [address] 05156 Bacteria Ur Culton 4 Bacteria identified Cx Nom (U) CULTURE, URINE: No growth (<1,000 CFU/ml) Normal [facility] Comment on above: Performed By: #### 6 30-4 #### [facility] CLIA [id number] [address] [place] [address] [place] URINALYSISon 01-13-2024 Amorphous NONE Normal [facility] Comment on above: Performed By: #### 2 13672 #### [facility],[address] [place] [address] 53976 Bacteria TRACE Normal [facility] Comment on above: Performed By: #### 2 31378 #### [facility],[address] [place] [address] 54302 Bilirubin Ql (U) Negative Normal NORMAL: NEGATIVE [facility] Comment on above: Performed By: #### 2 01584 #### [facility],[address] [place] [address] Casts NONE Normal [facility] Comment on above: Performed By: #### 2 32973 #### [facility],[address] [place] [address] 22440 Clarity (U) clear Normal NORMAL: CLEAR [facility] Comment on above: Performed By: #### 2 13913 #### [facility],[address] [place] [address] Color (U) p.yel Normal NORMAL: YELLOW [facility] Comment on above: Performed By: #### 2 53361 #### [facility],[address] [place] [address] Crystals LM Nom (Urine sed) NONE Normal [facility] Comment on above: Performed By: #### 2 57445 #### [facility],[address] [place], [place] [phone] Epi Cells RARE Normal [facility] Comment on above: Performed By: #### 2 12656 #### [facility],[address] [place] [address] 45808 Glucose Ql (U) NORM Normal NORMAL: NORMAL [facility] Comment on above: Performed By: #### 2 24333 #### [facility],[address] [place] [address] 39091 Hemoglobin Ql (U) 10 Abnormal NORMAL: NEGATIVE [facility] Comment on above: Performed By: #### 2 28184 #### [facility],[address] [place] [address] 57243 Ketone Negative Normal NORMAL: NEGATIVE [facility] Comment on above: Performed By: #### 2 61640 #### [facility],[address] [place] [address] 48601 Leukocytes 500 Abnormal NORMAL: NEGATIVE [facility] Comment on above: Performed By: #### 2 60335 #### [facility],[address] [place] [address] 46566 Mucous NONE Normal [facility] Comment on above: Performed By: #### 2 16890 #### [facility],[address] [place] [address] Nitrite Ql (U) Negative Normal NORMAL: NEGATIVE [facility] Comment on above: Performed By: #### 2 69722 #### [facility],[address] [place] [address] pH (U) 7 [pH] Normal NORMAL: 5.0-8.0 [facility] Comment on above: Performed By: #### 2 40830 #### [facility],[address] [place] [address] Protein Ql (U) Negative Normal NORMAL: NEGATIVE [facility] Comment on above: Performed By: #### 2 60943 #### [facility],[address] [place] [address] Rbc 0-5 Normal 0-3/hpf [facility] Comment on above: Performed By: #### 2 55261 #### [facility],[address] [place] [address] Sp [place] 1.005 Low NORMAL: 1.010-1.030 [facility] Comment on above: Performed By: #### 2 56951 #### [facility],[address] [place] [address] Specimen Type UNSPECIFIED Normal [facility] Comment on above: Performed By: #### 2 35302 #### [facility],[address] [place] [address] Urinalysis dipstick W Reflex Microscopic panel (U) SEE BELOW Normal [facility] Comment on above: Result Comment: MICR OSCOPIC Performed By: #### 2 73488 #### [facility],[address] [place] [address] Urobilinog NORM Normal NORMAL: NORMAL [facility] Comment on above: Performed By: #### 2 48069 #### [facility],[address] [place] [address] Wbc 6-10 Normal 0-5/hpf [facility] Comment on above: Performed By: #### 2 86451 #### [facility],[address] [place] [address] 02635 Yeast NONE Normal [facility] Comment on above: Performed By: #### 2 97607 #### [facility],[address] [place], [place] [phone] BMP with eGFRon 01-03-2024 AGE 73 years Normal [facility] Comment on above: Performed By: #### 2 15540 #### [facility],[address] [place] [address] Anion gap [Moles/Vol] 15 mmol/L Normal 10 - 20 [facility] Comment on above: Performed By: #### 2 48198 #### [facility],[address] [place] [address] BMP with eGFR Normal [facility] Comment on above: Result Comment: BASI C METABOLIC PANEL Performed By: #### 2 05415 #### [facility],[address] [place] [address] Calcium [Mass/Vol] 10.2 mg/dL High 8.5 - 10.1 [facility] Comment on above: Performed By: #### 2 10956 #### [facility],[address] [place], [place] [phone] Chloride [Moles/Vol] 103 mmol/L Normal 98 - 107 [facility] Comment on above: Performed By: #### 2 69088 #### [facility],[address] [place] [address] 54695 CO2 [Moles/Vol] 25.3 mmol/L Normal 21.0 - 32.0 [facility] Comment on above: Performed By: #### 2 30178 #### [facility],[address] [place], [place] [id number] Creatinine [Mass/Vol] 1.40 mg/dL High 0.55 - 1.02 [facility] Comment on above: Performed By: #### 2 15105 #### [facility],[address] [place] [address] 00636 eGFR 37 ML/MINUTE Low 60 - 999 [facility] Comment on above: Performed By: #### 2 51960 #### [facility],[address] [place] [address] 09415 eGFR(AA) 45 ML/MINUTE Low 60 - 999 [facility] Comment on above: Result Comment: ACCO RDING TO THE NATIONAL KIDNEY DISEASE EDUCATION PROGRAM(NKDE), A NORMAL eGFR IS A VALUE GREATER THAN OR EQUAL TO 60 ML/MIN/1.73 SQ METERS. CHRONIC KIDNEY DISEASE: <60mL/MIN/1.73 SQ METERS KIDNEY FAILURE: <15mL/MIN/1.73 SQ METERS THIS TEST SHOULD ONLY BE USED FOR PATIENTS 18 YEARS OF AGE AND OLDER. Performed By: #### 2 59361 #### [facility],[address] [place] [address] 05809 Glucose [Mass/Vol] 78 mg/dL Normal 74 - 106 [facility] Comment on above: Performed By: #### 2 59533 #### [address] [address] Potassium [Moles/Vol] 4.3 mmol/L Normal 3.5 - 5.1 [facility] Comment on above: Performed By: #### 2 99705 #### [facility],[address] [place] [address] 10860 Sodium [Moles/Vol] 139 mmol/L Normal 136 - 145 [facility] Comment on above: Performed By: #### 2 74898 #### [facility],[address] [place] [address] 49296 Urea nitrogen [Mass/Vol] 24 mg/dL High 7 - 18 [facility] Comment on above: Performed By: #### 2 53048 #### [place] [address],[place] [address] URINE CULTURE [CCL]on 2023 Bacteria identified Cx Nom (U) URCUL See Results Below See Below CULTURE, URINE NORMAL UROGENITAL CHRIS 50,000-<100,000 CFU/ml Normal urogenital chris SOURCE: Urine (Nonspecific) [facility] [address] [place] [address] Sukhjinder Fregoso III, M.D. [id number] SEND TO IC NO Normal [facility] Comment on above: Performed By: #### 2 83848 #### [facility],[address] [place] [address] 93091 BMP with eGFRon 12-30-2023 AGE 73 years Normal [facility] Comment on above: Performed By: #### 2 54331 #### [facility],[address] [place] [address] 10196 Anion gap [Moles/Vol] 14 mmol/L Normal 10 - 20 [facility] Comment on above: Performed By: #### 2 40846 #### [facility],[address] [place] [address] 67116 BMP with eGFR Normal [facility] Comment on above: Result Comment: BASI C METABOLIC PANEL Performed By: #### 2 42535 #### [facility],[address] [place] [address] 15968 Calcium [Mass/Vol] 10.2 mg/dL High 8.5 - 10.1 [facility] Comment on above: Performed By: #### 2 66291 #### [facility],[address] [place] [address] 10351 Chloride [Moles/Vol] 103 mmol/L Normal 98 - 107 [facility] Comment on above: Performed By: #### 2 43711 #### [facility] [facility],[address] [place] [address] 37504 CO2 [Moles/Vol] 25.5 mmol/L Normal 21.0 - 32.0 [facility] Comment on above: Performed By: #### 2 72688 #### [facility],[address] [place] [address] 62586 Creatinine [Mass/Vol] 1.46 mg/dL High 0.55 - 1.02 [facility] Comment on above: Performed By: #### 2 76335 #### [facility],[address] [place] [address] 24104 eGFR 35 ML/MINUTE Low 60 - 999 [facility] Comment on above: Performed By: #### 2 43062 #### [facility],[address] [place], [place] [id number] eGFR(AA) 43 ML/MINUTE [facility] [address] [place] [address] Comment on above: Result Comment: ACCO RDING TO THE NATIONAL KIDNEY DISEASE EDUCATION PROGRAM(NKDE), A NORMAL eGFR IS A VALUE GREATER THAN OR EQUAL TO 60 ML/MIN/1.73 SQ METERS. CHRONIC KIDNEY DISEASE: <60mL/MIN/1.73 SQ METERS KIDNEY FAILURE: <15mL/MIN/1.73 SQ METERS THIS TEST SHOULD ONLY BE USED FOR PATIENTS 18 YEARS OF AGE AND OLDER. Performed By: #### 2 76232 #### [facility],[address] [place], [place] [id number] Glucose [Mass/Vol] 116 mg/dL High 74 - 106 [facility] Comment on above: Performed By: #### 2 28826 #### [facility],[address] [place] [address] 18908 Potassium [Moles/Vol] 4.0 mmol/L Normal 3.5 - 5.1 [facility] Comment on above: Performed By: #### 2 73632 #### [facility],[address] [place], [place] [id number] Sodium [Moles/Vol] 138 mmol/L Normal 136 - 145 [facility] Comment on above: Performed By: #### 2 24313 #### [facility],[address] [place] [address] Urea nitrogen [Mass/Vol] 25 mg/dL High 7 - 18 [facility] Comment on above: Performed By: #### 2 05993 #### [facility],[address] [place] [address] CBC + DIFFon 12-30-2023 Baso # 0.07 x10EE3/UL Normal 0.00 - 0.10 [facility] Comment on above: Performed By: #### 2 25595 #### [facility],[address] [place] [address] 98624 Basophils/100 WBC (Bld) 0.5 % Normal 0.0 - 2.[address] [facility] Comment on above: Performed By: #### 2 40161 #### [facility],[address] [place] [address] CBC + DIFF Normal [facility] Comment on above: Result Comment: CBC- COMPLETE BLOOD COUNT Performed By: #### 2 53571 #### [facility],[address] [place] [address] EO # 0.68 x10EE3/UL High 0.00 - 0.50 [facility] Comment on above: Performed By: #### 2 93320 #### [facility],[address] [place] [address] 87778 Eosinophils/100 WBC (Bld) 4.6 % Normal 0.0 - 7.0 [facility] Comment on above: Performed By: #### 2 67780 #### [facility],[address] [place] [address] 87888 Erythrocyte distribution width (RBC) [Ratio] 14.4 % Normal 12.0 - 15.6 [facility] Comment on above: Performed By: #### 2 09058 #### [facility],[address] [place], [place] [phone] Hematocrit (Bld) [Volume fraction] 41.9 % Normal 34.0 - 46.0 [facility] Comment on above: Performed By: #### 2 96806 #### [facility],[address] [place] [address] 76813 Hemoglobin (Bld) [Mass/Vol] 13.5 g/dL Normal 12.0 - 16.0 [facility] Comment on above: Performed By: #### 2 04581 #### [facility],[address] [place] [address] Lymph # 3.38 x10EE3/UL High 0.80 - 2.80 [facility] Comment on above: Performed By: #### 2 61965 #### [facility],[address] [place] [address] Lymphocytes/100 WBC (Bld) 22.7 % Normal 20.0 - 45.0 [facility] Comment on above: Performed By: #### 2 54657 #### [facility],[address] [place], [place] [phone] MANUAL DIFF N/A Normal [facility] Comment on above: Performed By: #### 2 16332 #### [facility],[address] [place], [place] [phone] MCH (RBC) [Entitic mass] 27 pg Normal 27 - 33 [facility] Comment on above: Performed By: #### 2 55784 #### [facility],[address] [place] [address] 95890 MCHC 32 X10 3 Normal 32 - 36 [facility] Comment on above: Performed By: #### 2 42543 #### [facility],[address] [place] [address] 91857 MCV (RBC) [Entitic vol] 83 fL Normal 80 - [address] [facility] Comment on above: Performed By: #### 2 86086 #### [facility],[address] [place] [address] 77280 [place] # 1.09 x10EE3/UL High 0.20 - 1.00 [facility] Comment on above: Performed By: #### 2 44076 #### [facility],[address] [place] [address] 42066 MONOS % 7.3 % Normal 0.0 - 10.0 [facility] Comment on above: Performed By: #### 2 90328 #### [facility],[address] [place] [address] 41601 Morphology Corey (Bld) [Interp] N/A Normal [facility] Comment on above: Performed By: #### 2 28157 #### [facility],[address] [place] [address] 81179 Neut # 9.69 x10EE3/UL High 1.50 - 7.10 [facility] Comment on above: Performed By: #### 2 51625 #### [facility],[address] [place] [address] 73031 Neutrophils/100 WBC (Bld) 65.0 % Normal 46.0 - 76.0 [facility] Comment on above: Performed By: #### 2 03580 #### [facility],[address] [place] [address] 28481 PLATELET 384 x10EE3/UL Normal 150 - 450 [facility] Comment on above: Performed By: #### 2 03213 #### [facility],[address] [place] [address] 36052 Platelet mean volume (Bld) [Entitic vol] 8.0 fL Normal 6.6 - 10.5 [facility] Comment on above: Result Comment: AUTO MATED DIFFERENTIAL Performed By: #### 2 53721 #### [facility],[address] [place] [address] 46907 RBC 5.07 x 10EE6/UL Normal 4.10 - 5.30 [facility] Comment on above: Performed By: #### 2 86239 #### [facility],[address] [place] [address] 27368 WBC 14.9 x 10EE3/UL High 4.5 - 10.8 [facility] Comment on above: Performed By: #### 2 43532 #### [facility],[address] [place] [address] 53514 HEMOGLOBIN A1C (POM)on 12-29 Glucose [Mass/Vol] 243.2 mg/dL High 0.0 - 0.0 [facility] Comment on above: Result Comment: BLDo HEMOGLOBIN A1C REFERENCE RANGESBLDo Suggested Diagnosis HbA1c(%) HbA1C (mmol/mol Diabetic >/=6.5 >/=48 Prediabetes 5.7 - 6.4 39 - 47 Normal <5.7 <39 Performed By: #### 2 23982 #### [facility],[address] [place] [address] HbA1c (Bld) [Mass fraction] 10.1 % High 0.0 - 6.5 [facility] Comment on above: Performed By: #### 2 16640 #### [facility],[address] [place] [address] URINALYSISon 12-30-2023 Amorphous NONE Normal [facility] Comment on above: Performed By: #### 2 94268 #### [facility],[address] [place] [address] Bacteria 1+ Normal [facility] Comment on above: Performed By: #### 2 51973 #### [facility],[address] [place] [address] 07576 Bilirubin Ql (U) Negative Normal NORMAL: NEGATIVE [facility] Comment on above: Performed By: #### 2 15356 #### [facility],[address] [place], [place] [phone] Casts NONE Normal [facility] Comment on above: Performed By: #### 2 34799 #### [facility],[address] [place] [address] 04615 Clarity (U) very cloudy Normal NORMAL: CLEAR [facility] Comment on above: Performed By: #### 2 39211 #### [facility],[address] [place] [address] 76290 Color (U) yellow Normal NORMAL: YELLOW [facility] Comment on above: Performed By: #### 2 17450 #### [facility],[address] [place] [address] 07283 Crystals LM Nom (Urine sed) NONE Normal [facility] Comment on above: Performed By: #### 2 36603 #### [facility],[address] [place] [address] 97462 Epi Cells NONE Normal [facility] Comment on above: Performed By: #### 2 53871 #### [facility],[address] [place] [address] 78952 Glucose Ql (U) NORM Normal NORMAL: NORMAL [facility] Comment on above: Performed By: #### 2 33218 #### [facility],[address] [place] [address] 42082 Hemoglobin Ql (U) 250 Abnormal NORMAL: NEGATIVE [facility] Comment on above: Performed By: #### 2 58995 #### [facility],[address] [place] [address] 79979 Ketone Negative Normal NORMAL: NEGATIVE [facility] Comment on above: Performed By: #### 2 92165 #### [facility],[address] [place] [address] 48567 Leukocytes 500 Abnormal NORMAL: NEGATIVE [facility] Comment on above: Performed By: #### 2 29339 #### [facility],[address] [place] [address] 71923 Mucous NONE Normal [facility] Comment on above: Performed By: #### 2 69347 #### [facility],[address] [place] [address] 48980 Nitrite Ql (U) Negative Normal NORMAL: NEGATIVE [facility] Comment on above: Performed By: #### 2 03299 #### [place] [address] pH (U) 6 [pH] Normal NORMAL: 5.0-8.0 [facility] Comment on above: Performed By: #### 2 25053 #### [facility],[address] [place] [address] Protein Ql (U) 100 Abnormal NORMAL: NEGATIVE [facility] Comment on above: Performed By: #### 2 64645 #### [facility],[address] [place] [address] Rbc 5-10 Normal 0-3/hpf [facility] Comment on above: Performed By: #### 2 29806 #### [place] [address] Sp [place] 1.015 Normal NORMAL: 1.010-1.030 [facility] Comment on above: Performed By: #### 2 40652 #### [place] [address] Specimen Type Clean catch Normal [facility] Comment on above: Performed By: #### 2 33134 #### [place] [address] Urinalysis dipstick W Reflex Microscopic panel (U) SEE BELOW Normal [facility] Comment on above: Result Comment: MICR OSCOPIC Performed By: #### 2 16106 #### [place] [address] Urobilinog NORM Normal NORMAL: NORMAL [facility] Comment on above: Performed By: #### 2 28366 #### [place] [address] WBC (U) [#/Vol] /uL Normal 0-5/hpf [facility] Comment on above: Performed By: #### 2 42457 #### [place] [address] Yeast NONE Normal [facility] Comment on above: Performed By: #### 2 47968 #### [facility],[address] [place] [address] Basic metabolic 2000 panelon 12-17-2023 Anion gap [Moles/Vol] 16 mmol/L 10 - 2 0 mmol/L [facility] Calcium [Mass/Vol] 9.8 mg/dL 8.4 - 10. 2 mg/dL [facility] Chloride [Moles/Vol] 103 mmol/L 98 - 10 8 mmol/L [facility] Creatinine [Mass/Vol] 1.16 mg/dL 0.60 - 1.10 mg/dL [facility] GFR/1.73 sq M.predicted CKD-EPI (S/P/Bld) [Vol rate/Area] 51 Low - PINF [facility] Comment on above: Estimated GFR was ca lculated using the 2020 CKD-EPI creatinine equation. Glucose [Mass/Vol] 174 mg/dL High 65 - 99 mg/dL [facility] HCO3 [Moles/Vol] 22 mmol/L 21 - 32 mmol/L [facility] Interpretation and review of laboratory results Abnormal [facility] Potassium [Moles/Vol] 3.4 mmol/L Low 3.5 - 5.1 mmol/L [facility] Sodium [Moles/Vol] 138 mmol/L 135 - 145 mmol/L [facility] Urea nitrogen [Mass/Vol] 23 mg/dL 8 - 25 mg/dL [facility] Urea nitrogen/Creatinine [Mass ratio] 19.8 mg/mg 10.0 - 20.0 [facility] has implemented the eGFR calculation approach that does not have a coefficient for race that conforms to the NKF-ASN Task Force Recommendations. [facility] Glucose (Bld) [Mass/Vol]on 0 12-17-2023 Glucose [Mass/Vol] 163 mg/dL High 65 - 99 mg/dL [facility] Interpretation and review of laboratory results Abnormal [facility] Glucose [Mass/Vol] 142 mg/dL High 65 - 99 mg/dL [facility] Interpretation and review of laboratory results Abnormal [facility] Glucose [Mass/Vol] 118 mg/dL High 65 - 99 mg/dL [facility] Interpretation and review of laboratory results Abnormal [facility] Glucose (Bld) [Mass/Vol]on 0 12-16-2023 Glucose [Mass/Vol] 367 mg/dL High 65 - 99 mg/dL [facility] Interpretation and review of laboratory results Abnormal [facility] Glucose [Mass/Vol] 168 mg/dL High 65 - 99 mg/dL [facility] Interpretation and review of laboratory results Abnormal [facility] Glucose [Mass/Vol] 126 mg/dL High 65 - 99 mg/dL [facility] Interpretation and review of laboratory results Abnormal [facility] Bacteria identified Aer cx N om (Unsp spec)Ordered By: Brenda Mcgowan on 12-15-2023 [facility] Bacteria identified Cx Nom ( Bld)on 12-15-2023 Interpretation and review of laboratory results Normal [facility] Basic metabolic 2000 panelon 12-15-2023 Anion gap [Moles/Vol] 15 mmol/L 10 - 2 0 mmol/L [facility] Calcium [Mass/Vol] 9.4 mg/dL 8.4 - 10. 2 mg/dL [facility] Chloride [Moles/Vol] 103 mmol/L 98 - 10 8 mmol/L [facility] Creatinine [Mass/Vol] 1.30 mg/dL High 0.60 - 1.10 mg/dL [facility] GFR/1.73 sq M.predicted CKD-EPI (S/P/Bld) [Vol rate/Area] 44 Low - PINF [facility] Comment on above: Estimated GFR was ca lculated using the 2020 CKD-EPI creatinine equation. Glucose [Mass/Vol] 184 mg/dL High 65 - 99 mg/dL [facility] HCO3 [Moles/Vol] 24 mmol/L 21 - 32 mmol/L [facility] Interpretation and review of laboratory results Abnormal [facility] Potassium [Moles/Vol] 3.7 mmol/L 3.5 - 5.1 mmol/L [facility] Sodium [Moles/Vol] 138 mmol/L 135 - 145 mmol/L [facility] Urea nitrogen [Mass/Vol] 23 mg/dL 8 - 25 mg/dL [facility] Urea nitrogen/Creatinine [Mass ratio] 17.7 mg/mg 10.0 - 20.0 [facility] has implemented the eGFR calculation approach that does not have a coefficient for race that conforms to the NKF-ASN Task Force Recommendations. [facility] CBC panel Auto (Bld)on 12-14 Erythrocyte distribution width (RBC) [Entitic vol] 13.6 % 11.6 - 14.8 % [facility] Hematocrit (Bld) [Volume fraction] 38.2 % 36.0 - 46.0 % [facility] Hemoglobin (Bld) [Mass/Vol] 12.0 g/dL 12.0 - 16.0 g/dL [facility] Interpretation and review of laboratory results Abnormal [facility] MCH (RBC) [Entitic mass] 27.0 pg 26.0 - 34.0 pg [facility] MCHC (RBC) [Mass/Vol] 31.4 g/dL 31.0 - 37.0 g/dL [facility] MCV (RBC) [Entitic vol] 86.0 fL 80.0 - 100.0 fL [facility] Nucleated RBC (Bld) [#/Vol] 0.00 10*3/uL [facility] Nucleated RBC/100 WBC (Bld) [Ratio] 0.0 % [facility] Platelet mean volume (Bld) [Entitic vol] 9.3 fL Low 9.4 - 12.4 fL [facility] Platelets (Bld) [#/Vol] 366 10*3/uL [facility] RBC (Bld) [#/Vol] 4.44 10*6/uL [facility] WBC (Bld) [#/Vol] 12.44 10*3/uL High [facility] Glucose (Bld) [Mass/Vol]on 0 12-15-2023 Glucose [Mass/Vol] 196 mg/dL High 65 - 99 mg/dL [facility] Interpretation and review of laboratory results Abnormal [facility] Glucose [Mass/Vol] 283 mg/dL High 65 - 99 mg/dL [facility] Interpretation and review of laboratory results Abnormal [facility] Glucose [Mass/Vol] 207 mg/dL High 65 - 99 mg/dL [facility] Interpretation and review of laboratory results Abnormal [facility] Glucose [Mass/Vol] 207 mg/dL High 65 - 99 mg/dL [facility] Interpretation and review of laboratory results Abnormal [facility] Glucose [Mass/Vol] 179 mg/dL High 65 - 99 mg/dL [facility] Interpretation and review of laboratory results Abnormal [facility] - Microbiology an d Antimicrobial susceptibilityon 12-15-2023 Bacteria identified Cx Nom (Bld) [facility] I Von 12-15-2023 1. Moderate generalized brain atrophy. The ventricles are moderately dilated. The ventricular dilatation is likely the result of brain atrophy. No evidence of obstructive hydrocephalus. 2. No acute infarction. Chronic microvascular ischemic changes are stable. 3. No pathologic enhancement. No masses. DMG/ads Workstation ID: [id number] [employer] EXAMINATION: MR BRAIN WITH AND WITHOUT CONTRAST HISTORY: ORDERING SYSTEM PROVIDED HISTORY: nph, TECHNOLOGIST PROVIDED HISTORY: Illness/Other Reason for exam: headaches with n/v for one month: hydrocephalus seen on ct scan: back pain for over one year: no recent injury: no hx of cancer: Encounter Type: Unknown Additional signs and symptoms: n ORDERING SYSTEM PROVIDED DIAGNOSIS CODES: R42 Dizziness G91.2 NPH (normal pressure hydrocephalus) (HCC) R11.2 Nausea and vomiting, unspecified vomiting type N39.0 Complicated UTI (urinary tract infection) R79.89 Elevated troponin COMPARISON: MRI brain with and without contrast, 02/09/2018. TECHNIQUE: Multiplanar, multisequence MRI imaging of the brain with and without contrast. CONTRAST: GADOTERATE MEGLUMINE 0.5 MMOL/ML (376.9 MG/ML) INTRAVENOUS SOLUTION - 16 mL, FINDINGS: The lens implant in the right globe appears to be dislocated. This is new from the prior. Prior cataract surgery. Paranasal sinuses clear. There is some mucosal thickening in the mastoid air cells on the right. Nasopharynx normal. Compliance Spec spaces are normal. Moderate generalized brain atrophy. No mass effect. No shift of midline. Moderate chronic microvascular ischemic changes in the cerebral white matter. No diffusion restriction. No evidence of acute ischemic infarction. The ventricles are moderately dilated, likely the result of brain atrophy. No hemorrhagic lesion. No pathologic enhancement within the brain. No brain mass. Gabstr Axel Hernandez MD - 12/15/2023 EXAMINATION: MR BRAIN WITH AND WITHOUT CONTRAST HISTORY: ORDERING SYSTEM PROVIDED HISTORY: nph, TECHNOLOGIST PROVIDED HISTORY: Illness/Other Reason for exam: headaches with n/v for one month: hydrocephalus seen on ct scan: back pain for over one year: no recent injury: no hx of cancer: Encounter Type: Unknown Additional signs and symptoms: n ORDERING SYSTEM PROVIDED DIAGNOSIS CODES: R42 Dizziness G91.2 NPH (normal pressure hydrocephalus) (HCC) R11.2 Nausea and vomiting, unspecified vomiting type N39.0 Complicated UTI (urinary tract infection) R79.89 Elevated troponin COMPARISON: MRI brain with and without contrast, 02/09/2018. TECHNIQUE: Multiplanar, multisequence MRI imaging of the brain with and without contrast. CONTRAST: GADOTERATE MEGLUMINE 0.5 MMOL/ML (376.9 MG/ML) INTRAVENOUS SOLUTION - 16 mL, FINDINGS: The lens implant in the right globe appears to be dislocated. This is new from the prior. Prior cataract surgery. Paranasal sinuses clear. There is some mucosal thickening in the mastoid air cells on the right. Nasopharynx normal. Compliance Spec spaces are normal. Moderate generalized brain atrophy. No mass effect. No shift of midline. Moderate chronic microvascular ischemic changes in the cerebral white matter. No diffusion restriction. No evidence of acute ischemic infarction. The ventricles are moderately dilated, likely the result of brain atrophy. No hemorrhagic lesion. No pathologic enhancement within the brain. No brain mass. IMPRESSION: 1. Moderate generalized brain atrophy. The ventricles are moderately dilated. The ventricular dilatation is likely the result of brain atrophy. No evidence of obstructive hydrocephalus. 2. No acute infarction. Chronic microvascular ischemic changes are stable. 3. No pathologic enhancement. No masses. [employer]/Super[employer] Workstation ID: [id number] [facility] MR Lumbar spine WO and W con trast Kevan 12-15-2023 1. Stable MRI of the lumbar spine. 2. There are six lumbar vertebral bodies. The lowest disc space is referred to as L6-S1. 3. There are chronic compression fractures at L1, L2 and L4 as well as a chronic Schmorl's node deformity in the superior endplate of L6. Vertebroplasty has been performed at multiple levels including at the T12 level. These findings are unchanged. 4. No new acute compression fracture. 5. Grade 1 spondylolisthesis at L5-6 with moderate spinal canal stenosis stable. Degenerative changes in the lumbar spine are stable. [employer] Workstation ID: [id number] [facility] EXAMINATION: MR LUMBAR SPINE WITH AND WITHOUT CONTRAST HISTORY: ORDERING SYSTEM PROVIDED HISTORY: Bone mass or bone pain, lumbar spine, aggressive features on xray, TECHNOLOGIST PROVIDED HISTORY: Illness/Other Reason for exam: headaches with n/v for one month: hydrocephalus seen on ct scan: back pain for over one year: no recent injury: no hx of cancer: Encounter Type: Unknown Additional signs and symptoms: n ORDERING SYSTEM PROVIDED DIAGNOSIS CODES: R42 Dizziness G91.2 NPH (normal pressure hydrocephalus) (HCC) R11.2 Nausea and vomiting, unspecified vomiting type N39.0 Complicated UTI (urinary tract infection) R79.89 Elevated troponin COMPARISON: MRI lumbar spine without contrast, 10/01/2023. TECHNIQUE: Multiplanar, multisequence MRI imaging of the lumbar spine with and without contrast. CONTRAST: GADOTERATE MEGLUMINE 0.5 MMOL/ML (376.9 MG/ML) INTRAVENOUS SOLUTION - 16 mL, FINDINGS: There are six lumbar-type vertebral bodies. The lowest disc space is referred to as L6-S1. Vertebroplasty has been performed at T12. There is no vertebral body height loss at T12. This is stable. There are chronic compression fractures at L1, L2 and L4 with prior vertebroplasty. There is a large concave Schmorl's node deformity in the superior endplate of L6 which is stable. No new acute compression fracture identified. Grade 1 anterolisthesis at L5-6 is stable. Multilevel degenerative disc disease stable. Moderate spinal stenosis at the L5-6 level, unchanged. No compression of the conus medullaris. No abnormal signal or enhancement in the conus medullaris. There is no sacral stress fracture. No suspicious osseous lesions. [facility] Axel Hernandez MD - 12/15/2023 EXAMINATION: MR LUMBAR SPINE WITH AND WITHOUT CONTRAST HISTORY: ORDERING SYSTEM PROVIDED HISTORY: Bone mass or bone pain, lumbar spine, aggressive features on xray, TECHNOLOGIST PROVIDED HISTORY: Illness/Other Reason for exam: headaches with n/v for one month: hydrocephalus seen on ct scan: back pain for over one year: no recent injury: no hx of cancer: Encounter Type: Unknown Additional signs and symptoms: n ORDERING SYSTEM PROVIDED DIAGNOSIS CODES: R42 Dizziness G91.2 NPH (normal pressure hydrocephalus) ([facility]) R11.2 Nausea and vomiting, unspecified vomiting type N39.0 Complicated UTI (urinary tract infection) R79.89 Elevated troponin COMPARISON: MRI lumbar spine without contrast, 10/01/2023. TECHNIQUE: Multiplanar, multisequence MRI imaging of the lumbar spine with and without contrast. CONTRAST: GADOTERATE MEGLUMINE 0.5 MMOL/ML (376.9 MG/ML) INTRAVENOUS SOLUTION - 16 mL, FINDINGS: There are six lumbar-type vertebral bodies. The lowest disc space is referred to as L6-S1. Vertebroplasty has been performed at T12. There is no vertebral body height loss at T12. This is stable. There are chronic compression fractures at L1, L2 and L4 with prior vertebroplasty. There is a large concave Schmorl's node deformity in the superior endplate of L6 which is stable. No new acute compression fracture identified. Grade 1 anterolisthesis at L5-6 is stable. Multilevel degenerative disc disease stable. Moderate spinal stenosis at the L5-6 level, unchanged. No compression of the conus medullaris. No abnormal signal or enhancement in the conus medullaris. There is no sacral stress fracture. No suspicious osseous lesions. IMPRESSION: 1. Stable MRI of the lumbar spine. 2. There are six lumbar vertebral bodies. The lowest disc space is referred to as L6-S1. 3. There are chronic compression fractures at L1, L2 and L4 as well as a chronic Schmorl's node deformity in the superior endplate of L6. Vertebroplasty has been performed at multiple levels including at the T12 level. These findings are unchanged. 4. No new acute compression fracture. 5. Grade 1 spondylolisthesis at L5-6 with moderate spinal canal stenosis stable. Degenerative changes in the lumbar spine are stable. [employer] Workstation ID: [id number] [facility] MR Lumbar spine WO and W con trast IVOrdered By: Axel Hernandez on 12-15-2023 [facility] Work Phone: MR Thoracic spine WO and W c ontrast Kevan 12-15-2023 1. Subacute compression fracture at T8 appears stable from the prior. There is approximately 45% loss of vertebral body height. No retropulsion of bone fragments into the spinal canal at this level. 2. No new compression fracture. 3. Prior vertebroplasty at T12. Chronic compression fracture at L1 with prior vertebroplasty. Mild chronic compression fractures at T2 and T3. These findings are stable. 4. No suspicious osseous lesions. No enhancing bone lesion identified. 5. No significant thoracic spinal canal stenosis. No abnormal signal or enhancement in the thoracic spinal cord. [employer] Workstation ID: [id number] [facility] EXAMINATION: MR THORACIC SPINE WITH AND WITHOUT CONTRAST HISTORY: ORDERING SYSTEM PROVIDED HISTORY: Ataxia, nontraumatic, thoracic pathology suspected, TECHNOLOGIST PROVIDED HISTORY: Illness/Other Reason for exam: headaches with n/v for one month: hydrocephalus seen on ct scan: back pain for over one year: no recent injury: no hx of cancer: Encounter Type: Unknown Additional signs and symptoms: n ORDERING SYSTEM PROVIDED DIAGNOSIS CODES: R42 Dizziness G91.2 NPH (normal pressure hydrocephalus) (HCC) R11.2 Nausea and vomiting, unspecified vomiting type N39.0 Complicated UTI (urinary tract infection) R79.89 Elevated troponin COMPARISON: MRI thoracic spine without contrast, 10/01/2023. TECHNIQUE: Multiplanar, multisequence MRI imaging of the thoracic spine without contrast. CONTRAST: GADOTERATE MEGLUMINE 0.5 MMOL/ML (376.9 MG/ML) INTRAVENOUS SOLUTION - 16 mL, FINDINGS: There is a subacute compression fracture at T8. The compression fracture involves the superior endplate of T8. There is approximately 45% loss of vertebral body height at the T8 level. This is stable from the prior. There is some bone marrow edema in the vertebral body of T8 with hypointense T1 signal and hyperintense signal on STIR. This is stable. No retropulsion of bone fragments into the spinal canal. There are mild chronic compression fractures at T2 and T3 that are stable. Vertebroplasty has been performed at T12 which is stable. Chronic compression fracture with vertebroplasty at L1. This is stable. No new acute thoracic spine compression fracture. Multilevel degenerative disc disease, stable. No significant thoracic spinal canal stenosis or foraminal narrowing. There is no compression of the thoracic spinal cord. No abnormal signal or pathologic enhancement in the thoracic spinal cord. [facility] Axel Hernandez MD - 12/15/2023 EXAMINATION: MR THORACIC SPINE WITH AND WITHOUT CONTRAST HISTORY: ORDERING SYSTEM PROVIDED HISTORY: Ataxia, nontraumatic, thoracic pathology suspected, TECHNOLOGIST PROVIDED HISTORY: Illness/Other Reason for exam: headaches with n/v for one month: hydrocephalus seen on ct scan: back pain for over one year: no recent injury: no hx of cancer: Encounter Type: Unknown Additional signs and symptoms: n ORDERING SYSTEM PROVIDED DIAGNOSIS CODES: R42 Dizziness G91.2 NPH (normal pressure hydrocephalus) (HCC) R11.2 Nausea and vomiting, unspecified vomiting type N39.0 Complicated UTI (urinary tract infection) R79.89 Elevated troponin COMPARISON: MRI thoracic spine without contrast, 10/01/2023. TECHNIQUE: Multiplanar, multisequence MRI imaging of the thoracic spine without contrast. CONTRAST: GADOTERATE MEGLUMINE 0.5 MMOL/ML (376.9 MG/ML) INTRAVENOUS SOLUTION - 16 mL, FINDINGS: There is a subacute compression fracture at T8. The compression fracture involves the superior endplate of T8. There is approximately 45% loss of vertebral body height at the T8 level. This is stable from the prior. There is some bone marrow edema in the vertebral body of T8 with hypointense T1 signal and hyperintense signal on STIR. This is stable. No retropulsion of bone fragments into the spinal canal. There are mild chronic compression fractures at T2 and T3 that are stable. Vertebroplasty has been performed at T12 which is stable. Chronic compression fracture with vertebroplasty at L1. This is stable. No new acute thoracic spine compression fracture. Multilevel degenerative disc disease, stable. No significant thoracic spinal canal stenosis or foraminal narrowing. There is no compression of the thoracic spinal cord. No abnormal signal or pathologic enhancement in the thoracic spinal cord. IMPRESSION: 1. Subacute compression fracture at T8 appears stable from the prior. There is approximately 45% loss of vertebral body height. No retropulsion of bone fragments into the spinal canal at this level. 2. No new compression fracture. 3. Prior vertebroplasty at T12. Chronic compression fracture at L1 with prior vertebroplasty. Mild chronic compression fractures at T2 and T3. These findings are stable. 4. No suspicious osseous lesions. No enhancing bone lesion identified. 5. No significant thoracic spinal canal stenosis. No abnormal signal or enhancement in the thoracic spinal cord. [facility] Workstation ID: [id number] [facility] Magnesium Levelon 12-15-2023 Magnesium [Mass/Vol] 2.0 mg/dL 1.6 - 2 .4 mg/dL [facility] Magnesium [Mass/Vol]on 12-14 Interpretation and review of laboratory results Normal [facility] No Panel Informationon 12-14 [facility] Urine Aerobic CultureOrdered By: Brenda Mcgowan on 12-15-2023 Bacteria identified Aer cx Nom (Unsp spec) No Growth (<1,000 CFU/mL) [facility] Basic metabolic 2000 panelon 12-14-2023 Anion gap [Moles/Vol] 17 mmol/L 10 - 2 0 mmol/L [facility] Calcium [Mass/Vol] 9.3 mg/dL 8.4 - 10. 2 mg/dL [facility] Chloride [Moles/Vol] 103 mmol/L 98 - 10 8 mmol/L [facility] Creatinine [Mass/Vol] 1.13 mg/dL 0.60 - 1.10 mg/dL [facility] GFR/1.73 sq M.predicted CKD-EPI (S/P/Bld) [Vol rate/Area] 52 Low - PINF [facility] Comment on above: Estimated GFR was ca lculated using the 2020 CKD-EPI creatinine equation. Glucose [Mass/Vol] 149 mg/dL High 65 - 99 mg/dL [facility] HCO3 [Moles/Vol] 23 mmol/L 21 - 32 mmol/L [facility] Interpretation and review of laboratory results Abnormal [facility] Potassium [Moles/Vol] 3.4 mmol/L Low 3.5 - 5.1 mmol/L [facility] Sodium [Moles/Vol] 140 mmol/L 135 - 145 mmol/L [facility] Urea nitrogen [Mass/Vol] 19 mg/dL 8 - 25 mg/dL [facility] Urea nitrogen/Creatinine [Mass ratio] 16.8 mg/mg 10.0 - 20.0 [facility] has implemented the eGFR calculation approach that does not have a coefficient for race that conforms to the NKF-ASN Task Force Recommendations. [facility] CBC panel Auto (Bld)on 12-13 Erythrocyte distribution width (RBC) [Entitic vol] 13.4 % 11.6 - 14.8 % [facility] Hematocrit (Bld) [Volume fraction] 36.9 % 36.0 - 46.0 % [facility] Hemoglobin (Bld) [Mass/Vol] 11.8 g/dL Low 12.0 - 16.0 g/dL [facility] Interpretation and review of laboratory results Abnormal [facility] MCH (RBC) [Entitic mass] 27.0 pg 26.0 - 34.0 pg [facility] MCHC (RBC) [Mass/Vol] 32.0 g/dL 31.0 - 37.0 g/dL [facility] MCV (RBC) [Entitic vol] 84.4 fL 80.0 - 100.0 fL [facility] Nucleated RBC (Bld) [#/Vol] 0.00 10*3/uL [facility] Nucleated RBC/100 WBC (Bld) [Ratio] 0.0 % [facility] Platelet mean volume (Bld) [Entitic vol] 9.1 fL Low 9.4 - 12.4 fL [facility] Platelets (Bld) [#/Vol] 354 10*3/uL [facility] RBC (Bld) [#/Vol] 4.37 10*6/uL [facility] ealt WBC (Bld) [#/Vol] 11.91 10*3/uL High [facility] Glucose (Bld) [Mass/Vol]on 0 12-14-2023 Glucose [Mass/Vol] 243 mg/dL High 65 - 99 mg/dL [facility] Interpretation and review of laboratory results Abnormal [facility] Glucose [Mass/Vol] 277 mg/dL High 65 - 99 mg/dL [facility] Interpretation and review of laboratory results Abnormal [facility] Glucose [Mass/Vol] 231 mg/dL High 65 - 99 mg/dL [facility] Interpretation and review of laboratory results Abnormal [facility] Glucose [Mass/Vol] 200 mg/dL High 65 - 99 mg/dL [facility] Interpretation and review of laboratory results Abnormal [facility] Glucose [Mass/Vol] 180 mg/dL High 65 - 99 mg/dL [facility] Interpretation and review of laboratory results Abnormal [facility] MR BRAIN WITH AND WITHOUT CO NTRASTon 12-14-2023 MR BRAIN WITH AND WITHOUT CONTRAST EXAMINATION: MR BRAIN WITH AND WITHOUT CONTRAST HISTORY: ORDERING SYSTEM PROVIDED HISTORY: nph, TECHNOLOGIST PROVIDED HISTORY: Illness/Other Reason for exam: headaches with n/v for one month: hydrocephalus seen on ct scan: back pain for over one year: no recent injury: no hx of cancer: Encounter Type: Unknown Additional signs and symptoms: n ORDERING SYSTEM PROVIDED DIAGNOSIS CODES: R42 Dizziness G91.2 NPH (normal pressure hydrocephalus) (HCC) R11.2 Nausea and vomiting, unspecified vomiting type N39.0 Complicated UTI (urinary tract infection) R79.89 Elevated troponin COMPARISON: MRI brain with and without contrast, 02/09/2018. TECHNIQUE: Multiplanar, multisequence MRI imaging of the brain with and without contrast. CONTRAST: GADOTERATE MEGLUMINE 0.5 MMOL/ML (376.9 MG/ML) INTRAVENOUS SOLUTION - 16 mL, FINDINGS: The lens implant in the right globe appears to be dislocated. This is new from the prior. Prior cataract surgery. Paranasal sinuses clear. There is some mucosal thickening in the mastoid air cells on the right. Nasopharynx normal. Compliance Spec spaces are normal. Moderate generalized brain atrophy. No mass effect. No shift of midline. Moderate chronic microvascular ischemic changes in the cerebral white matter. No diffusion restriction. No evidence of acute ischemic infarction. The ventricles are moderately dilated, likely the result of brain atrophy. No hemorrhagic lesion. No pathologic enhancement within the brain. No brain mass. IMPRESSION: 1. Moderate generalized brain atrophy. The ventricles are moderately dilated. The ventricular dilatation is likely the result of brain atrophy. No evidence of obstructive hydrocephalus. 2. No acute infarction. Chronic microvascular ischemic changes are stable. 3. No pathologic enhancement. No masses. [employer] Workstation ID: [id number] Dictated by: AXEL HERNANDEZ on WedDec 14, 2023 1:39:11 PM EDT Transcribed by: YUDI GET on WedDec 14, 2023 2:25:16 PM EDT Finalized by: AXEL HERNANDEZ on WedDec 15, 2023 7:01:18 AM EDT Normal [facility] Comment on above: Order Comment: Injur y/Trauma or Illness?:Illness/Other How long have you had these symptoms (acute/chronic)?:Unknown Reason for exam?:headaches with n/v for one month: hydrocephalus seen on ct scan: back pain for over one year: no recent injury: no hx of cancer: Type of Exam?:Unknown Additional signs and symptoms?:n MR Brain WO and W contrast I Von 12-14-2023 Radiology Study observation (narrative) [facility] MR Lumbar spine WO and W con trast Kevan 12-14-2023 Radiology Study observation (narrative) [facility] MR Thoracic spine WO and W c ontrast Kevan 12-14-2023 Radiology Study observation (narrative) [facility] Magnesium Levelon 12-14-2023 Magnesium [Mass/Vol] 2.0 mg/dL 1.6 - 2 .4 mg/dL [facility] Magnesium [Mass/Vol]on 12-13 Interpretation and review of laboratory results Normal [facility] No Panel Informationon 12-13 [facility] Glucose (Bld) [Mass/Vol]on 0 12-13-2023 Glucose [Mass/Vol] 139 mg/dL High 65 - 99 mg/dL [facility] Interpretation and review of laboratory results Abnormal [facility] Glucose [Mass/Vol] 349 mg/dL High 65 - 99 mg/dL [facility] Interpretation and review of laboratory results Abnormal [facility] Glucose [Mass/Vol] 226 mg/dL High 65 - 99 mg/dL [facility] Interpretation and review of laboratory results Abnormal [facility] Glucose [Mass/Vol] 237 mg/dL High 65 - 99 mg/dL [facility] Interpretation and review of laboratory results Abnormal [facility] Glucose [Mass/Vol] 146 mg/dL High 65 - 99 mg/dL [facility] Interpretation and review of laboratory results Abnormal [facility] Glucose (Bld) [Mass/Vol]on 12-12-2023 Glucose [Mass/Vol] 220 mg/dL High 65 - 99 mg/dL [facility] Interpretation and review of laboratory results Abnormal [facility] Glucose [Mass/Vol] 373 mg/dL High 65 - 99 mg/dL [facility] Interpretation and review of laboratory results Abnormal [facility] Glucose [Mass/Vol] 304 mg/dL High 65 - 99 mg/dL [facility] Interpretation and review of laboratory results Abnormal [facility] Glucose [Mass/Vol] 212 mg/dL High 65 - 99 mg/dL [facility] Interpretation and review of laboratory results Abnormal [facility] Potassium Levelon 12-12-2023 Potassium [Moles/Vol] 3.7 mmol/L 3.5 - 5.1 mmol/L [facility] Potassium [Moles/Vol]on Interpretation and review of laboratory results Normal [facility] CBC panel Auto (Bld)on 12-10 Erythrocyte distribution width (RBC) [Entitic vol] 13.4 % 11.6 - 14.8 % [facility] Hematocrit (Bld) [Volume fraction] 36.6 % 36.0 - 46.0 % [facility] Hemoglobin (Bld) [Mass/Vol] 11.6 g/dL Low 12.0 - 16.0 g/dL [facility] Interpretation and review of laboratory results Abnormal [facility] MCH (RBC) [Entitic mass] 27.0 pg 26.0 - 34.0 pg [facility] MCHC (RBC) [Mass/Vol] 31.7 g/dL 31.0 - 37.0 g/dL [facility] MCV (RBC) [Entitic vol] 85.1 fL 80.0 - 100.0 fL [facility] Nucleated RBC (Bld) [#/Vol] 0.00 10*3/uL [facility] Nucleated RBC/100 WBC (Bld) [Ratio] 0.0 % [facility] Platelet mean volume (Bld) [Entitic vol] 9.3 fL Low 9.4 - 12.4 fL [facility] Platelets (Bld) [#/Vol] 333 10*3/uL [facility] RBC (Bld) [#/Vol] 4.30 10*6/uL [facility] ealth WBC (Bld) [#/Vol] 11.81 10*3/uL High [facility] Comprehensive metabolic 2000 panelOrdered By: Mikayla Lopez on 12-11-2023 Albumin [Mass/Vol] 3.1 g/dL Low 3.2 - 5.2 g/dL [facility] ALP [Catalytic activity/Vol] 125 U/L 40 - 150 U/L [facility] ALT [Catalytic activity/Vol] 8 U/L 0-35 U/L [facility] Anion gap [Moles/Vol] 15 mmol/L 10 - 2 0 mmol/L [facility] AST [Catalytic activity/Vol] 13 U/L 0-35 U/L [facility] Bilirubin [Mass/Vol] 0.3 mg/dL 0.0 - 1 .3 mg/dL [facility] Calcium [Mass/Vol] 8.8 mg/dL 8.4 - 10. 2 mg/dL [facility] Chloride [Moles/Vol] 103 mmol/L 98 - 10 8 mmol/L [facility] Creatinine [Mass/Vol] 1.17 mg/dL 0.60 - 1.10 mg/dL [facility] GFR/1.73 sq M.predicted CKD-EPI (S/P/Bld) [Vol rate/Area] 50 Low - PINF [facility] Comment on above: Estimated GFR was ca lculated using the 2020 CKD-EPI creatinine equation. Glucose [Mass/Vol] 181 mg/dL High 65 - 99 mg/dL [facility] HCO3 [Moles/Vol] 24 mmol/L 21 - 32 mmol/L [facility] Interpretation and review of laboratory results Abnormal [facility] Potassium [Moles/Vol] 2.9 mmol/L Low 3.5 - 5.1 mmol/L [facility] Protein [Mass/Vol] 6.6 g/dL 6.0 - 8.0 g/dL [facility] Sodium [Moles/Vol] 139 mmol/L 135 - 145 mmol/L [facility] Urea nitrogen [Mass/Vol] 15 mg/dL 8 - 25 mg/dL [facility] Urea nitrogen/Creatinine [Mass ratio] 12.8 mg/mg 10.0 - 20.0 [facility] has implemented the eGFR calculation approach that does not have a coefficient for race that conforms to the NKF-ASN Task Force Recommendations. [facility] EKG 12-leadon 12-11-2023 Atrial Rate 101 BPM [facility] P [place] 52 degrees [facility] P-R Interval 184 ms [facility] Q-T Interval 358 ms [facility] QRS Duration 64 ms [facility] QTC Calculation (Bezet) 464 ms [facility] R [place] -29 degrees [facility] T [place] 33 degrees [facility] Ventricular Rate 101 BPM [facility] th Sinus tachycardia Inferior infarct , age undetermined Abnormal ECG ECG Cart Interpretation see physician note for interpretation. Confirmed by Yanet Hitchcock ([id number]) on 12/11/2023 7:08:29 PM MUSE [facility] Glucose (Bld) [Mass/Vol]on 0 12-11-2023 Glucose [Mass/Vol] 284 mg/dL High 65 - 99 mg/dL [facility] Interpretation and review of laboratory results Abnormal [facility] Glucose [Mass/Vol] 269 mg/dL High 65 - 99 mg/dL [facility] Interpretation and review of laboratory results Abnormal [facility] Glucose [Mass/Vol] 256 mg/dL High 65 - 99 mg/dL [facility] Interpretation and review of laboratory results Abnormal [facility] Glucose [Mass/Vol] 176 mg/dL High 65 - 99 mg/dL [facility] Interpretation and review of laboratory results Abnormal [facility] CBC Auto Differentialon Basophils (Bld) [#/Vol] 0.07 10*3/uL [facility] Basophils/100 [facility] (Bld) 0.5 [facility] [#/Vol] 0.42 10*3/uL [facility] Eosinophils/100 WBC (Bld) 3.0 % [facility] Erythrocyte distribution width (RBC) [Entitic vol] 13.4 % 11.6 - 14.8 % [facility] Hematocrit (Bld) [Volume fraction] 40.8 % 36.0 - 46.0 % [facility] Hemoglobin (Bld) [Mass/Vol] 13.1 g/dL 12.0 - 16.0 g/dL [facility] Immature granulocytes (Bld) [#/Vol] 0.19 10*3/uL [facility] Immature granulocytes/100 WBC (Bld) 1.40 % [facility] Comment on above: The IG parameter is the percentage of metamyelocytes, myelocytes and promyelocytes. An immature granulocyte count (IG) of 1% or more suggests the possibility of infection, an IG count of 3% is very likely related to an infection. Interpretation and review of laboratory results Abnormal [facility] Lymphocytes (Bld) [#/Vol] 2.10 10*3/uL [facility] Lymphocytes/100 WBC (Bld) 15.1 % [facility] MCH (RBC) [Entitic mass] 27.2 pg 26.0 - 34.0 pg [facility] MCHC (RBC) [Mass/Vol] 32.1 g/dL 31.0 - 37.0 g/dL [facility] MCV (RBC) [Entitic vol] 84.6 fL 80.0 - 100.0 fL [facility] Monocytes (Bld) [#/Vol] 0.98 10*3/uL [facility] Monocytes/100 WBC (Bld) 7.1 % [facility] Neutrophils (Bld) [#/Vol] 10.11 10*3/uL [facility] Neutrophils/100 WBC (Bld) 72.9 % [facility] Nucleated RBC (Bld) [#/Vol] 0.00 10*3/uL [facility] Nucleated RBC/100 WBC (Bld) [Ratio] 0.0 % [facility] Platelet mean volume (Bld) [Entitic vol] 9.2 fL Low 9.4 - 12.4 fL [facility] Platelets (Bld) [#/Vol] 368 10*3/uL [facility] RBC (Bld) [#/Vol] 4.82 10*6/uL [facility] ealth WBC (Bld) [#/Vol] 13.87 10*3/uL [facility] CT HEAD OR BRAIN WITHOUT CON TRASTon 12-10-2023 CT HEAD OR BRAIN WITHOUT CONTRAST EXAMINATION: CT HEAD OR BRAIN WITHOUT CONTRAST HISTORY: lightheadedness. n/v COMPARISON: CT head 10/22/2023. TECHNIQUE: Standard noncontrast brain CT. Dose reduction techniques were achieved by using automated exposure control and/or adjustment of mA and/or kV according to patient size and/or use of iterative reconstruction technique. FINDINGS: No intracranial hemorrhage, extra-axial fluid collection, hydrocephalus, midline shift, or acute large vessel territory infarction. No other mass effect. Patent basal cisterns. Patchy periventricular and subcortical hypoattenuation is likely on the basis of chronic microvascular angiopathic changes. Moderate symmetric global volume loss without lobar predominance. Commensurate ventricular system enlargement. No calvarial fracture. Normal soft tissues. Paranasal sinuses and mastoid air cells are well-aerated. IMPRESSION: No acute intracranial process. No substantial change since 10/22/2023. Workstation ID: [id number] Dictated by: MAXIME HITCHCOCK on WedDec 10, 2023 2:30:34 PM EDT Transcribed by: MAXIME HITCHCOCK on WedDec 10, 2023 2:30:34 PM EDT Finalized by: MAXIME HITCHCOCK on WedDec 10, 2023 2:30:34 PM EDT [facility] Comment on above: Order Comment: Injur y/Trauma or Illness?:Illness/Other How long have you had these symptoms (acute/chronic)?:Acute Reason for exam?:light headed Type of Exam?:Initial Additional signs and symptoms?:n/a CT Head WO contraston 2023 No acute intracranial process. No substantial change since 10/22/2023. Workstation ID: [id number] [employer] EXAMINATION: CT HEAD OR BRAIN WITHOUT CONTRAST HISTORY: lightheadedness. n/v COMPARISON: CT head 10/22/2023. TECHNIQUE: Standard noncontrast brain CT. Dose reduction techniques were achieved by using automated exposure control and/or adjustment of mA and/or kV according to patient size and/or use of iterative reconstruction technique. FINDINGS: No intracranial hemorrhage, extra-axial fluid collection, hydrocephalus, midline shift, or acute large vessel territory infarction. No other mass effect. Patent basal cisterns. Patchy periventricular and subcortical hypoattenuation is likely on the basis of chronic microvascular angiopathic changes. Moderate symmetric global volume loss without lobar predominance. Commensurate ventricular system enlargement. No calvarial fracture. Normal soft tissues. Paranasal sinuses and mastoid air cells are well-aerated. Breaker RIS Maxime Tello DO - 12/10/2023 EXAMINATION: CT HEAD OR BRAIN WITHOUT CONTRAST HISTORY: lightheadedness. n/v COMPARISON: CT head 10/22/2023. TECHNIQUE: Standard noncontrast brain CT. Dose reduction techniques were achieved by using automated exposure control and/or adjustment of mA and/or kV according to patient size and/or use of iterative reconstruction technique. FINDINGS: No intracranial hemorrhage, extra-axial fluid collection, hydrocephalus, midline shift, or acute large vessel territory infarction. No other mass effect. Patent basal cisterns. Patchy periventricular and subcortical hypoattenuation is likely on the basis of chronic microvascular angiopathic changes. Moderate symmetric global volume loss without lobar predominance. Commensurate ventricular system enlargement. No calvarial fracture. Normal soft tissues. Paranasal sinuses and mastoid air cells are well-aerated. IMPRESSION: No acute intracranial process. No substantial change since 10/22/2023. Workstation ID: [id number] [facility] Radiology Study observation (narrative) [place] CT Head WO contrastOrdered B y: Maxime Tello on 12-10-2023 [facility] Work Phone: Comprehensive metabolic 2000 panelon 12-10-2023 Albumin [Mass/Vol] 3.6 g/dL 3.2 - 5.2 g/dL [facility] ALP [Catalytic activity/Vol] 148 U/L 40 - 150 U/L [facility] ALT [Catalytic activity/Vol] 19 U/L 0-35 U/L [facility] Anion gap [Moles/Vol] 16 mmol/L 10 - 2 0 mmol/L [facility] AST [Catalytic activity/Vol] 23 U/L 0-35 U/L [facility] Bilirubin [Mass/Vol] 0.2 mg/dL 0.0 - 1 .3 mg/dL [facility] Calcium [Mass/Vol] 9.2 mg/dL 8.4 - 10. 2 mg/dL [facility] Chloride [Moles/Vol] 100 mmol/L 98 - 10 8 mmol/L [facility] Creatinine [Mass/Vol] 1.47 mg/dL High 0.60 - 1.10 mg/dL [facility] GFR/1.73 sq M.predicted CKD-EPI (S/P/Bld) [Vol rate/Area] 38 Low - PINF [facility] Comment on above: Estimated GFR was ca lculated using the 2020 CKD-EPI creatinine equation. Glucose [Mass/Vol] 245 mg/dL High 65 - 99 mg/dL [facility] HCO3 [Moles/Vol] 27 mmol/L 21 - 32 mmol/L [facility] Interpretation and review of laboratory results Abnormal [facility] Potassium [Moles/Vol] 3.4 mmol/L Low 3.5 - 5.1 mmol/L [facility] Protein [Mass/Vol] 7.8 g/dL 6.0 - 8.0 g/dL [facility] Sodium [Moles/Vol] 140 mmol/L 135 - 145 mmol/L [facility] Urea nitrogen [Mass/Vol] 16 mg/dL 8 - 25 mg/dL [facility] Urea nitrogen/Creatinine [Mass ratio] 10.9 mg/mg 10.0 - 20.0 [facility] has implemented the eGFR calculation approach that does not have a coefficient for race that conforms to the NKF-ASN Task Force Recommendations. [facility] EKGon 12-10-2023 [facility] Glucose (Bld) [Mass/Vol]on 0 12-10-2023 Glucose [Mass/Vol] 382 mg/dL High 65 - 99 mg/dL [facility] Interpretation and review of laboratory results Abnormal [facility] Lactate [Moles/Vol]on 2023 Interpretation and review of laboratory results Normal [facility] Lactic Acid, Plasmaon 2023 Lactate [Moles/Vol] 1.4 mmol/L 0.6 - 2. 0 mmol/L [facility] Lipaseon 12-10-2023 Lipase [Catalytic activity/Vol] 24 U/L 15 - 65 U/L [facility] Lipase [Catalytic activity/V ol]on 12-10-2023 Interpretation and review of laboratory results Normal [facility] MR LUMBAR SPINE WITH AND WIT HOUT CONTRASTon 12-10-2023 MR LUMBAR SPINE WITH AND WITHOUT CONTRAST EXAMINATION: MR LUMBAR SPINE WITH AND WITHOUT CONTRAST HISTORY: ORDERING SYSTEM PROVIDED HISTORY: Bone mass or bone pain, lumbar spine, aggressive features on xray, TECHNOLOGIST PROVIDED HISTORY: Illness/Other Reason for exam: headaches with n/v for one month: hydrocephalus seen on ct scan: back pain for over one year: no recent injury: no hx of cancer: Encounter Type: Unknown Additional signs and symptoms: n ORDERING SYSTEM PROVIDED DIAGNOSIS CODES: R42 Dizziness G91.2 NPH (normal pressure hydrocephalus) (HCC) R11.2 Nausea and vomiting, unspecified vomiting type N39.0 Complicated UTI (urinary tract infection) R79.89 Elevated troponin COMPARISON: MRI lumbar spine without contrast, 10/01/2023. TECHNIQUE: Multiplanar, multisequence MRI imaging of the lumbar spine with and without contrast. CONTRAST: GADOTERATE MEGLUMINE 0.5 MMOL/ML (376.9 MG/ML) INTRAVENOUS SOLUTION - 16 mL, FINDINGS: There are six lumbar-type vertebral bodies. The lowest disc space is referred to as L6-S1. Vertebroplasty has been performed at T12. There is no vertebral body height loss at T12. This is stable. There are chronic compression fractures at L1, L2 and L4 with prior vertebroplasty. There is a large concave Schmorl's node deformity in the superior endplate of L6 which is stable. No new acute compression fracture identified. Grade 1 anterolisthesis at L5-6 is stable. Multilevel degenerative disc disease stable. Moderate spinal stenosis at the L5-6 level, unchanged. No compression of the conus medullaris. No abnormal signal or enhancement in the conus medullaris. There is no sacral stress fracture. No suspicious osseous lesions. IMPRESSION: 1. Stable MRI of the lumbar spine. 2. There are six lumbar vertebral bodies. The lowest disc space is referred to as L6-S1. 3. There are chronic compression fractures at L1, L2 and L4 as well as a chronic Schmorl's node deformity in the superior endplate of L6. Vertebroplasty has been performed at multiple levels including at the T12 level. These findings are unchanged. 4. No new acute compression fracture. 5. Grade 1 spondylolisthesis at L5-6 with moderate spinal canal stenosis stable. Degenerative changes in the lumbar spine are stable. [facility] [place] Workstation ID: [id number] Dictated by: AXEL HERNANDEZ on WedDec 14, 2023 2:10:19 PM EDT Transcribed by: TUNG EPPS on WedDec 14, 2023 2:38:03 PM EDT Finalized by: AXEL HERNANDEZ on WedDec 15, 2023 6:57:16 AM EDT [facility] Comment on above: Order Comment: Injur y/Trauma or Illness?:Illness/Other How long have you had these symptoms (acute/chronic)?:Unknown Reason for exam?:headaches with n/v for one month: hydrocephalus seen on ct scan: back pain for over one year: no recent injury: no hx of cancer: Type of Exam?:Unknown Additional signs and symptoms?:n MR THORACIC SPINE WITH AND W ITHOUT CONTRASTon 12-10-2023 MR THORACIC SPINE WITH AND WITHOUT CONTRAST EXAMINATION: MR THORACIC SPINE WITH AND WITHOUT CONTRAST HISTORY: ORDERING SYSTEM PROVIDED HISTORY: Ataxia, nontraumatic, thoracic pathology suspected, TECHNOLOGIST PROVIDED HISTORY: Illness/Other Reason for exam: headaches with n/v for one month: hydrocephalus seen on ct scan: back pain for over one year: no recent injury: no hx of cancer: Encounter Type: Unknown Additional signs and symptoms: n ORDERING SYSTEM PROVIDED DIAGNOSIS CODES: R42 Dizziness G91.2 NPH (normal pressure hydrocephalus) (HCC) R11.2 Nausea and vomiting, unspecified vomiting type N39.0 Complicated UTI (urinary tract infection) R79.89 Elevated troponin COMPARISON: MRI thoracic spine without contrast, 10/01/2023. TECHNIQUE: Multiplanar, multisequence MRI imaging of the thoracic spine without contrast. CONTRAST: GADOTERATE MEGLUMINE 0.5 MMOL/ML (376.9 MG/ML) INTRAVENOUS SOLUTION - 16 mL, FINDINGS: There is a subacute compression fracture at T8. The compression fracture involves the superior endplate of T8. There is approximately 45% loss of vertebral body height at the T8 level. This is stable from the prior. There is some bone marrow edema in the vertebral body of T8 with hypointense T1 signal and hyperintense signal on STIR. This is stable. No retropulsion of bone fragments into the spinal canal. There are mild chronic compression fractures at T2 and T3 that are stable. Vertebroplasty has been performed at T12 which is stable. Chronic compression fracture with vertebroplasty at L1. This is stable. No new acute thoracic spine compression fracture. Multilevel degenerative disc disease, stable. No significant thoracic spinal canal stenosis or foraminal narrowing. There is no compression of the thoracic spinal cord. No abnormal signal or pathologic enhancement in the thoracic spinal cord. IMPRESSION: 1. Subacute compression fracture at T8 appears stable from the prior. There is approximately 45% loss of vertebral body height. No retropulsion of bone fragments into the spinal canal at this level. 2. No new compression fracture. 3. Prior vertebroplasty at T12. Chronic compression fracture at L1 with prior vertebroplasty. Mild chronic compression fractures at T2 and T3. These findings are stable. 4. No suspicious osseous lesions. No enhancing bone lesion identified. 5. No significant thoracic spinal canal stenosis. No abnormal signal or enhancement in the thoracic spinal cord. [facility] [place] Workstation ID: [id number] Dictated by: AXEL HERNANDEZ on WedDec 14, 2023 1:59:34 PM EDT Transcribed by: TUNG EPPS on WedDec 14, 2023 2:33:20 PM EDT Finalized by: AXEL HERNANDEZ on WedDec 15, 2023 7:00:46 AM EDT Normal [facility] Comment on above: Order Comment: Injur y/Trauma or Illness?:Illness/Other How long have you had these symptoms (acute/chronic)?:Unknown Reason for exam?:headaches with n/v for one month: hydrocephalus seen on ct scan: back pain for over one year: no recent injury: no hx of cancer: Type of Exam?:Unknown Additional signs and symptoms?:n No Panel Informationon 12-09 Extra Tube Hold for add-ons. [facility] Comment on above: Auto resulted. [facility] Troponin x 2 (Now and Repeat in 3 hours)Ordered By: Eun Lama on 12-10-2023 Interp Troponin T Delta Change Probable non-acute cardiac injury or late presentation of acute injury. [facility] Interpretation and review of laboratory results Abnormal [facility] Troponin T 39 ng/L Critically high NINF - 14 ng/L [facility] Troponin T Delta % -15 % <20% of Baseline Troponin [facility] Troponin x 2 (Now and Repeat in 3 hours)Ordered By: Aylin Zamudio on 12-10-2023 Interpretation and review of laboratory results Abnormal [facility] Troponin T 46 ng/L Critically high NINF - 14 ng/L [facility] Troponin T Interpretation Possible acute cardiac injury. [facility] UrinalysisOrdered By: Latesha Dinh on 12-10-2023 Bacteria Auto Ql (U) Many Abnormal None Se en /hpf [facility] Bilirubin Ql (U) Negative Negative [facility] Clarity Refractometry automated (U) Cloudy Abnormal Clear [facility] Color (U) Yellow Colorless, Yellow [facility] Glucose Auto test strip (U) [Mass/Vol] Negative Negative mg/dL [facility] Hemoglobin Auto test strip Ql (U) Small Abnormal Negative [facility] Interpretation and review of laboratory results Abnormal [facility] Ketones (U) [Mass/Vol] Negative Negat paco mg/dL [facility] Leukocyte clumps Auto (Urine sed) [#/Area] Many Abnormal None Seen /hpf [facility] Leukocyte esterase Auto test strip Ql (U) Large Abnormal Negative [facility] Nitrite Auto test strip Ql (U) Negative Negative [facility] pH (U) 6.5 [pH] 5.0 - 7.0 [facility] Protein (U) [Mass/Vol] 30 mg/dL Abnormal Negative [facility] Comment on above: False positive resul ts may occur in urines with large amounts of hemoglobin, pH greater than 8.0, contrast medium, or disinfectants including ammonium compounds. RBC Auto (Urine sed) [#/Area] 115 High [facility] Specific gravity (U) [Rel density] 1.015 1.005 - 1.025 [facility] Urobilinogen (U) [Mass/Vol] mg/dL NINF - 2.0 mg/dL [facility] WBC Auto (Urine sed) [#/Area] High [facility] Microscopic examinat ion is performed on all urinalysis samples and only positive findings are reported. The test for blood on the chemical analytic portion of urinalysis may also be positive due to hemoglobinuria and myoglobinuria and if red blood cells are present they are quantified by microscopic examination. [facility] XR CHEST PA/APon 12-10-2023 XR CHEST PA/AP EXAMINATION: XR CHEST PA/AP 12/10/2023 2:00 pm HISTORY: ORDERING SYSTEM PROVIDED HISTORY: Chest Pain, TECHNOLOGIST PROVIDED HISTORY: Illness/Other Reason for exam: chest pain, nausea AND emesis Cancer History: u Surgery, RadiationHistory: u Encounter Type: Initial Additional signs and symptoms: no ORDERING SYSTEM PROVIDED DIAGNOSIS CODES: COMPARISON: 10/22/2023 FINDINGS: There are low lung volumes. There is no focal lung consolidation, pleural effusion or pneumothorax. Pulmonary vasculature is within normal limits. Heart size is normal. There is a left pectoral cardiac pacemaker device. IMPRESSION: 1. No acute cardiopulmonary disease. Workstation ID: [id number] Dictated by: ROOSEVELT OLIVO on WedDec 10, 2023 2:17:53 PM EDT Transcribed by: ROOSEVELT OLIVO on WedDec 10, 2023 2:17:53 PM EDT Finalized by: ROOSEVELT OLIVO on WedDec 10, 2023 2:17:53 PM EDT Normal [facility] Comment on above: Order Comment: Injur y/Trauma or Illness?:Injury/Trauma How long have you had these symptoms (acute/chronic)?:Acute Reason for exam?:L-1/ L-3 KYPHOPLASTY Type of Exam?:Subsequent/Follow-up Mechanism of injury?:FALL Fluoro time in minutes:6.43 Fluoro dose in mGy?:557.2 XR Chest PA and Abdomen APon 12-10-2023 1. No acute cardiopulmonary disease. Workstation ID: [id number] Breaker RIS EXAMINATION: XR CHEST PA/AP 12/10/2023 2:00 pm HISTORY: ORDERING SYSTEM PROVIDED HISTORY: Chest Pain, TECHNOLOGIST PROVIDED HISTORY: Illness/Other Reason for exam: chest pain, nausea & emesis Cancer History: u Surgery, RadiationHistory: u Encounter Type: Initial Additional signs and symptoms: no ORDERING SYSTEM PROVIDED DIAGNOSIS CODES: COMPARISON: 10/22/2023 FINDINGS: There are low lung volumes. There is no focal lung consolidation, pleural effusion or pneumothorax. Pulmonary vasculature is within normal limits. Heart size is normal. There is a left pectoral cardiac pacemaker device. [facility] Roosevelt Olivo MD - 12/10/2023 EXAMINATION: XR CHEST PA/AP 12/10/2023 2:00 pm HISTORY: ORDERING SYSTEM PROVIDED HISTORY: Chest Pain, TECHNOLOGIST PROVIDED HISTORY: Illness/Other Reason for exam: chest pain, nausea & emesis Cancer History: u Surgery, RadiationHistory: u Encounter Type: Initial Additional signs and symptoms: no ORDERING SYSTEM PROVIDED DIAGNOSIS CODES: COMPARISON: 10/22/2023 FINDINGS: There are low lung volumes. There is no focal lung consolidation, pleural effusion or pneumothorax. Pulmonary vasculature is within normal limits. Heart size is normal. There is a left pectoral cardiac pacemaker device. IMPRESSION: 1. No acute cardiopulmonary disease. Workstation ID: [id number] [facility] Radiology Study observation (narrative) XR Chest PA and Abdomen APOr dered By: Roosevelt Olivo on 12-10-2023 [facility] Work Phone: BMP with eGFRon 11-24-2023 AGE 73 years Normal [facility] Comment on above: Performed By: #### 2 [id number] #### [facility],[address],[place] [address] Anion gap [Moles/Vol] 13 mmol/L Normal 10 - 20 [facility] Comment on above: Performed By: #### 2 [id number] #### [facility],[address] [place] [address] 11510 BMP with eGFR Normal [facility] Comment on above: Result Comment: BASI C METABOLIC PANEL Performed By: #### 2 [id number] #### [facility],[address] [place] [address]248 Calcium [Mass/Vol] 9.1 mg/dL Normal 8.5 - 10.1 [facility] Comment on above: Performed By: #### 2 [id number] #### [facility],[address] [place] [address]16 Chloride [Moles/Vol] 105 mmol/L Normal 98 - 107 [facility] Comment on above: Performed By: #### 2 [id number] #### [facility],[address] [place] [address] 69784 CO2 [Moles/Vol] 21.7 mmol/L Normal 21.0 - 32.0 [facility] Comment on above: Performed By: #### 2 98969 #### [facility],[address] [place] [address]383 Creatinine [Mass/Vol] 1.29 mg/dL High 0.55 - 1.02 [facility] Comment on above: Performed By: #### 2 85844 #### [facility],[address] [place] [address] 97264 eGFR 41 ML/MINUTE Low 60 - 999 [facility] Comment on above: Performed By: #### 2 24147 #### [facility],[address] [place] [address] 27275 eGFR(AA) 49 ML/MINUTE Low 60 - 999 [facility] Comment on above: Result Comment: ACCO RDING TO THE NATIONAL KIDNEY DISEASE EDUCATION PROGRAM(NKDE), A NORMAL eGFR IS A VALUE GREATER THAN OR EQUAL TO 60 ML/MIN/1.73 SQ METERS. CHRONIC KIDNEY DISEASE: <60mL/MIN/1.73 SQ METERS KIDNEY FAILURE: <15mL/MIN/1.73 SQ METERS THIS TEST SHOULD ONLY BE USED FOR PATIENTS 18 YEARS OF AGE AND OLDER. Performed By: #### 2 [id number] #### [facility],[address] [place] [address] 10571 Glucose [Mass/Vol] 230 mg/dL High 74 - 106 [facility] Comment on above: Performed By: #### 2 82034 #### [facility],[address] [place] [address] 61064 Potassium [Moles/Vol] 4.4 mmol/L Normal 3.5 - 5.1 [facility] Comment on above: Performed By: #### 2 34819 #### [facility],[address] [place] [address] 60447 Sodium [Moles/Vol] 135 mmol/L Low 136 - 145 [facility] Comment on above: Performed By: #### 2 [id number] #### [facility],[address] [place] [address] 39202 Urea nitrogen [Mass/Vol] 14 mg/dL Normal 7 - 18 [facility] Comment on above: Performed By: #### 2 44496 #### [facility],[address] [place] [address] 87784 CBC + DIFFon 11-24-2023 Baso # 0.04 x10EE3/UL Normal 0.00 - 0.10 [facility] Comment on above: Performed By: #### 2 36354 #### [facility],[address] [place] [address] 50399 Basophils/100 WBC (Bld) 0.3 % Normal 0.0 - 2.[address] [facility] Comment on above: Performed By: #### 2 74446 #### [facility],[address] [place] [address] 82031 CBC + DIFF Normal [facility] Comment on above: Result Comment: CBC- COMPLETE BLOOD COUNT Performed By: #### 2 [id number] #### [address] [address] EO # 0.59 x10EE3/UL High 0.00 - 0.50 [facility] Comment on above: Performed By: #### 2 55652 #### [place] [address] Eosinophils/100 WBC (Bld) 4.3 % Normal 0.0 - 7.0 [facility] Comment on above: Performed By: #### 2 44025 #### [place] [address] Erythrocyte distribution width (RBC) [Ratio] 14.0 % Normal 12.0 - 15.6 [facility] Comment on above: Performed By: #### 2 66970 #### [place] [address] Hematocrit (Bld) [Volume fraction] 37.9 % Normal 34.0 - 46.0 [facility] Comment on above: Performed By: #### 2 44963 #### [place] [address] Hemoglobin (Bld) [Mass/Vol] 12.7 g/dL Normal 12.0 - 16.0 [facility] Comment on above: Performed By: #### 2 40345 #### [address] [address] Lymph # 2.62 x10EE3/UL Normal 0.80 - 2.80 [facility] Comment on above: Performed By: #### 2 20287 #### [place] [id number] Lymphocytes/100 WBC (Bld) 18.8 % Low 20.0 - 45.0 [facility] Comment on above: Performed By: #### 2 82535 #### [facility],[address] [place] [address] MANUAL DIFF N/A Normal [facility] Comment on above: Performed By: #### 2 94257 #### [facility],[address] [place] [address] MCH (RBC) [Entitic mass] 28 pg Normal 27 - 33 [facility] Comment on above: Performed By: #### 2 54276 #### [facility],[address] [place] [address] MCHC 34 X10 3 Normal 32 - 36 [facility] Comment on above: Performed By: #### 2 48298 #### [facility],[address] [place] [address] MCV (RBC) [Entitic vol] 83 fL Normal 80 - 99 [facility] Comment on above: Performed By: #### 2 35161 #### [facility],[address] [place] [address] [place] # 1.06 x10EE3/UL High 0.20 - 1.00 [facility] Comment on above: Performed By: #### 2 42717 #### [facility],[address] [place] [address] MONOS % 7.6 % Normal 0.0 - 10.0 [facility] Comment on above: Performed By: #### 2 80194 #### [facility],[address] [place] [address] Morphology Corey (Bld) [Interp] N/A Normal [facility] Comment on above: Performed By: #### 2 91782 #### [facility],[address] [place] [address] Neut # 9.65 x10EE3/UL High 1.50 - 7.10 [facility] Comment on above: Performed By: #### 2 37148 #### [facility],[address] [place], [place] [address] Neutrophils/100 WBC (Bld) 69.1 % Normal 46.0 - 76.0 [facility] Comment on above: Performed By: #### 2 23840 #### [facility],[address] [place], [place] [id number] PLATELET 328 x10EE3/UL Normal 150 - 450 [facility] Comment on above: Performed By: #### 2 99058 #### [facility],[address] [place] [address] Platelet mean volume (Bld) [Entitic vol] 8.1 fL Normal 6.6 - 10.5 [facility] Comment on above: Result Comment: AUTO MATED DIFFERENTIAL Performed By: #### 2 50158 #### [facility],[address] [place] [address] RBC 4.54 x 10EE6/UL Normal 4.10 - 5.30 [facility] Comment on above: Performed By: #### 2 20992 #### [facility],[address] [place] [address] WBC 14.0 x 10EE3/UL High 4.5 - 10.8 [facility] Comment on above: Performed By: #### 2 84974 #### [facility],[address] [place] [address] BMP with eGFRon 11-23-2023 AGE 73 years Normal [facility] Comment on above: Performed By: #### 2 94622 #### [facility],[address] [place] [address] Anion gap [Moles/Vol] 12 mmol/L Normal 10 - 20 [facility] Comment on above: Performed By: #### 2 53398 #### [facility],[address] [place] [address] BMP with eGFR Normal [facility] Comment on above: Result Comment: BASI C METABOLIC PANEL Performed By: #### 2 [id number] #### [facility],[address] [place] [address] 69617 Calcium [Mass/Vol] 8.9 mg/dL Normal 8.5 - 10.1 [facility] Comment on above: Performed By: #### 2 09414 #### [facility],[address] [place] [address] 02190 Chloride [Moles/Vol] 106 mmol/L Normal 98 - 107 [facility] Comment on above: Performed By: #### 2 39423 #### [facility],[address] [place] [address] 71417 CO2 [Moles/Vol] 23.1 mmol/L Normal 21.0 - 32.0 [facility] Comment on above: Performed By: #### 2 67183 #### [facility],[address] [place] [address] 61871 Creatinine [Mass/Vol] 1.30 mg/dL High 0.55 - 1.02 [facility] Comment on above: Performed By: #### 2 16015 #### [facility],[address] [place] [address] 45342 eGFR 40 ML/MINUTE Low 60 - 999 [facility] Comment on above: Performed By: #### 2 56163 #### [facility],[address] [place] [address] 27771 eGFR(AA) 49 ML/MINUTE Low 60 - 999 [facility] Comment on above: Result Comment: ACCO RDING TO THE NATIONAL KIDNEY DISEASE EDUCATION PROGRAM(NKDE), A NORMAL eGFR IS A VALUE GREATER THAN OR EQUAL TO 60 ML/MIN/1.73 SQ METERS. CHRONIC KIDNEY DISEASE: <60mL/MIN/1.73 SQ METERS KIDNEY FAILURE: <15mL/MIN/1.73 SQ METERS THIS TEST SHOULD ONLY BE USED FOR PATIENTS 18 YEARS OF AGE AND OLDER. Performed By: #### 2 43227 #### [facility],[address] [place] [address] 90494 Glucose [Mass/Vol] 139 mg/dL High 74 - 106 [facility] Comment on above: Performed By: #### 2 99859 #### [facility],[address] [place] [address] 00965 Potassium [Moles/Vol] 4.0 mmol/L Normal 3.5 - 5.1 [facility] Comment on above: Performed By: #### 2 02386 #### [facility],[address] [place] [address] 73783 Sodium [Moles/Vol] 137 mmol/L Normal 136 - 145 [facility] Comment on above: Performed By: #### 2 29014 #### [facility],[address] [place] [address] Urea nitrogen [Mass/Vol] 22 mg/dL High 7 - 18 [facility] Comment on above: Performed By: #### 2 07944 #### [facility],[address] [place] [address] CBC + DIFFon 11-23-2023 Baso # 0.05 x10EE3/UL Normal 0.00 - 0.10 [facility] Comment on above: Performed By: #### 2 30548 #### [facility],[address] [place] [address] 41646 Basophils/100 WBC (Bld) 0.4 % Normal 0.0 - 2.[address] [facility] Comment on above: Performed By: #### 2 34989 #### [facility],[address] [place], [place] [id number] CBC + DIFF Normal [facility] Comment on above: Result Comment: CBC- COMPLETE BLOOD COUNT Performed By: #### 2 98397 #### [facility],[address] [place] [address] 24596 EO # 0.40 x10EE3/UL Normal 0.00 - 0.50 [facility] Comment on above: Performed By: #### 2 05628 #### [facility],[address] [place], [place] [id number] Eosinophils/100 WBC (Bld) 2.8 % Normal 0.0 - 7.0 [facility] Comment on above: Performed By: #### 2 48822 #### [facility],[address] [place] [address] Erythrocyte distribution width (RBC) [Ratio] 14.0 % Normal 12.0 - 15.6 [facility] Comment on above: Performed By: #### 2 47714 #### [facility],[address] [place] [address] Hematocrit (Bld) [Volume fraction] 37.3 % Normal 34.0 - 46.0 [facility] Comment on above: Performed By: #### 2 92238 #### [facility],[address] [place] [address] Hemoglobin (Bld) [Mass/Vol] 12.6 g/dL Normal 12.0 - 16.0 [facility] Comment on above: Performed By: #### 2 37234 #### [facility],[address] [place] [address] Lymph # 2.99 x10EE3/UL High 0.80 - 2.80 [facility] Comment on above: Performed By: #### 2 32076 #### [facility],[address] [place], [place] [id number] Lymphocytes/100 WBC (Bld) 20.9 % Normal 20.0 - 45.0 [facility] Comment on above: Performed By: #### 2 24690 #### [facility],[address] [place] [address] 99539 MANUAL DIFF N/A Normal [facility] Comment on above: Performed By: #### 2 80192 #### [facility],[address] [place] [address] 35140 MCH (RBC) [Entitic mass] 28 pg Normal 27 - 33 [facility] Comment on above: Performed By: #### 2 14274 #### [facility],[address] [place] [address] 51792 MCHC 34 X10 3 Normal 32 - 36 [facility] Comment on above: Performed By: #### 2 73475 #### [facility],[address] [place] [address] 08603 MCV (RBC) [Entitic vol] 83 fL Normal 80 - [address] [facility] Comment on above: Performed By: #### 2 64112 #### [facility],[address] [place] [address] 14633 [place] # 0.86 x10EE3/UL Normal 0.20 - 1.00 [facility] Comment on above: Performed By: #### 2 43838 #### [facility],[address] [place] [address] 37828 MONOS % 6.0 % Normal 0.0 - 10.0 [facility] Comment on above: Performed By: #### 2 28369 #### [facility],[address] [place] [address] 66938 Morphology Corey (Bld) [Interp] N/A Normal [facility] Comment on above: Performed By: #### 2 42250 #### [facility],[address] [place] [address] 46127 Neut # 10.03 x10EE3/UL High 1.50 - 7.10 [facility] Comment on above: Performed By: #### 2 58658 #### [facility],[address] [place] [address] 24795 Neutrophils/100 WBC (Bld) 70.0 % Normal 46.0 - 76.0 [facility] Comment on above: Performed By: #### 2 85331 #### [facility],[address] [place] [address] 66246 PLATELET 298 x10EE3/UL Normal 150 - 450 [facility] Comment on above: Performed By: #### 2 53669 #### [facility],[address] [place] [address] Platelet mean volume (Bld) [Entitic vol] 7.9 fL Normal 6.6 - 10.5 [facility] Comment on above: Result Comment: AUTO MATED DIFFERENTIAL Performed By: #### 2 58372 #### [facility],[address] [place] [address] RBC 4.47 x 10EE6/UL Normal 4.10 - 5.30 [facility] Comment on above: Performed By: #### 2 72940 #### [place] [address] WBC 14.3 x 10EE3/UL High 4.5 - 10.8 [facility] Comment on above: Performed By: #### 2 65581 #### [place] [address] HEMOGLOBIN A1C (POM)on 11-22 Glucose [Mass/Vol] 286.2 mg/dL High 0.0 - 0.0 [facility] Comment on above: Result Comment: BLDo HEMOGLOBIN A1C REFERENCE RANGESBLDo Suggested Diagnosis HbA1c(%) HbA1C (mmol/mol Diabetic >/=6.5 >/=48 Prediabetes 5.7 - 6.4 39 - 47 Normal <5.7 <39 Performed By: #### 2 55665 #### [place] [address] HbA1c (Bld) [Mass fraction] 11.6 % High 0.0 - 6.5 [facility] Comment on above: Performed By: #### 2 05549 #### [place] [address] CBC + DIFFon 11-22-2023 Baso # 0.05 x10EE3/UL Normal 0.00 - 0.10 [facility] Comment on above: Performed By: #### 2 39770 #### [facility],[address] [place] [address] 10194 Basophils/100 WBC (Bld) 0.3 % Normal 0.0 - 2.[address] [facility] Comment on above: Performed By: #### 2 39892 #### [facility],[address] [place] [address] 13037 CBC + DIFF Normal [facility] Comment on above: Result Comment: CBC- COMPLETE BLOOD COUNT Performed By: #### 2 90124 #### [facility],[address] [place] [address] 41329 EO # 0.49 x10EE3/UL Normal 0.00 - 0.50 [facility] Comment on above: Performed By: #### 2 61247 #### [facility],[address] [place] [address] 10147 Eosinophils/100 WBC (Bld) 3.3 % Normal 0.0 - 7.0 [facility] Comment on above: Performed By: #### 2 66306 #### [facility],[address] [place] [address] Erythrocyte distribution width (RBC) [Ratio] 14.1 % Normal 12.0 - 15.6 [facility] Comment on above: Performed By: #### 2 01522 #### [facility],[address] [place], [place] [phone] Hematocrit (Bld) [Volume fraction] 42.4 % Normal 34.0 - 46.0 [facility] Comment on above: Performed By: #### 2 67310 #### [facility],[address] [place] [address] 96198 Hemoglobin (Bld) [Mass/Vol] 14.4 g/dL Normal 12.0 - 16.0 [facility] Comment on above: Performed By: #### 2 22802 #### [facility],[address] [place] [address] 02480 Lymph # 2.59 x10EE3/UL Normal 0.80 - 2.80 [facility] Comment on above: Performed By: #### 2 41334 #### [facility],[address] [place] [address] 29579 Lymphocytes/100 WBC (Bld) 17.5 % Low 20.0 - 45.0 [facility] Comment on above: Performed By: #### 2 55034 #### [facility],[address] [place] [address] 47477 MANUAL DIFF N/A Normal [facility] Comment on above: Performed By: #### 2 49467 #### [facility],[address] [place] [address] MCH (RBC) [Entitic mass] 28 pg Normal 27 - 33 [facility] Comment on above: Performed By: #### 2 09111 #### [facility],[address] [place] [address] MCHC 34 X10 3 Normal 32 - 36 [facility] Comment on above: Performed By: #### 2 10112 #### [facility],[address] [place] [address] 15301 MCV (RBC) [Entitic vol] 83 fL Normal 80 - [address] [facility] Comment on above: Performed By: #### 2 46582 #### [facility],[address] [place] [address] [place] # 0.96 x10EE3/UL Normal 0.20 - 1.00 [facility] Comment on above: Performed By: #### 2 18059 #### [facility],[address] [place] [address] 76436 MONOS % 6.5 % Normal 0.0 - 10.0 [facility] Comment on above: Performed By: #### 2 96161 #### [facility],[address] [place] [address] 24020 Morphology Corey (Bld) [Interp] N/A Normal [facility] Comment on above: Performed By: #### 2 60998 #### [facility],[address] [place] [address] 97750 Neut # 10.73 x10EE3/UL High 1.50 - 7.10 [facility] Comment on above: Performed By: #### 2 10024 #### [facility],[address] [place] [address] 11416 Neutrophils/100 WBC (Bld) 72.4 % Normal 46.0 - 76.0 [facility] Comment on above: Performed By: #### 2 17311 #### [facility],[address] [place] [address] 54591 PLATELET 308 x10EE3/UL Normal 150 - 450 [facility] Comment on above: Performed By: #### 2 05236 #### [facility],[address] [place] [address] 53774 Platelet mean volume (Bld) [Entitic vol] 7.8 fL Normal 6.6 - 10.5 [facility] Comment on above: Result Comment: AUTO MATED DIFFERENTIAL Performed By: #### 2 43618 #### [address] [address] RBC 5.13 x 10EE6/UL Normal 4.10 - 5.30 [facility] Comment on above: Performed By: #### 2 93798 #### [facility],[address] [place] [address] 57129 WBC 14.8 x 10EE3/UL High 4.5 - 10.8 [facility] Comment on above: Performed By: #### 2 41536 #### [facility],[address] [place] [address] 67627 CHEST 1 VIEWon 11-22-2023 CHEST 1 VIEW [place] [address] Patient: KRISTEN MANN Phone#: : 1950 Age: 73 Gender: F Pt. Type: ER Account: [id number] Location: 052 Ordering: EVETTE STALIN Exam Date: 11/22/2023/18:40 Family Phys: OLIVIER ACOSTA Charge Code: [id number] Physician: [place] Order #: [id number] Dose#: PROCEDURE: X-RAY CHEST 1 VIEW COMPARISON: [facility], CT, ABDOMEN/PELVIS W CON, 11/18/2023, 2:36. [facility], XR, CHEST 1 VIEW, 06/07/2022, 14:10. INDICATIONS: Dizziness. FINDINGS: LUNGS: Normal. No significant pulmonary parenchymal abnormalities. VASCULATURE: Normal. Unremarkable pulmonary vasculature. CARDIAC: Left chest wall pacemaker with 2 leads. MEDIASTINUM: Normal. No visible mass or adenopathy. PLEURA: Normal. No effusion or pleural thickening. BONES: Vertebroplasty material seen beneath the diaphragm. OTHER: Negative. CONCLUSION: No acute disease. Dictated by: Rose Mary Hugo MD on 11/22/2023 at 19:00 Approved by: Rose Mary Hugo MD on 11/22/2023 at 19:02 Normal [facility] CMP with eGFRon 11-22-2023 AGE 73 years Normal [facility] Comment on above: Performed By: #### 2 23109 #### [facility],[address] [place] [address] Albumin [Mass/Vol] 3.3 g/dL Low 3.4 - 5.0 [facility] Comment on above: Performed By: #### 2 45784 #### [facility],[address] [place] [address] Albumin/Globulin [Mass ratio] 0.6 {ratio} Low 0.9 - 1.6 [facility] Comment on above: Performed By: #### 2 89740 #### [facility],[address] [place] [address] ALK PHOS 157 U/L High 46 - 116 [facility] Comment on above: Performed By: #### 2 36029 #### [facility],[address] [place] [address] ALT [Catalytic activity/Vol] 12 U/L Low 16 - 63 [facility] Comment on above: Performed By: #### 2 10766 #### [facility],[address] [place] [address] Anion gap [Moles/Vol] 16 mmol/L Normal 10 - 20 [facility] Comment on above: Performed By: #### 2 89497 #### [facility],[address] [place] [address] AST [Catalytic activity/Vol] 10 U/L Low 13 - 39 [facility] Comment on above: Performed By: #### 2 32920 #### [facility],[address] [place] [address] B/C RATIO 17 ratio Normal 0 - 30 [facility] Comment on above: Performed By: #### 2 96821 #### [facility],[address] [place] [address] Bilirubin [Mass/Vol] 0.3 mg/dL Normal 0.2 - 1.0 [facility] Comment on above: Performed By: #### 2 71060 #### [facility],[address] [place] [address] Calcium [Mass/Vol] 9.7 mg/dL Normal 8.5 - 10.1 [facility] Comment on above: Performed By: #### 2 49219 #### [facility],[address] [place] [address] Chloride [Moles/Vol] 101 mmol/L Normal 98 - 107 [facility] Comment on above: Performed By: #### 2 12701 #### [facility],[address] [place] [address] CMP with eGFR Normal [facility] Comment on above: Result Comment: COMP REHENSIVE METABOLIC PANEL Performed By: #### 2 27509 #### [facility],[address] [place] [address] CO2 [Moles/Vol] 25.3 mmol/L Normal 21.0 - 32.0 [facility] Comment on above: Performed By: #### 2 64973 #### [facility],[address] [place] [address] Creatinine [Mass/Vol] 1.52 mg/dL High 0.55 - 1.02 [facility] Comment on above: Performed By: #### 2 04335 #### [facility],[address] [place] [address] 53618 eGFR 34 ML/MINUTE Low 60 - 999 [facility] Comment on above: Performed By: #### 2 64863 #### [facility],[address] [place] [address] eGFR(AA) 41 ML/MINUTE Low 60 - 999 [facility] Comment on above: Result Comment: ACCO RDING TO THE NATIONAL KIDNEY DISEASE EDUCATION PROGRAM(NKDE), A NORMAL eGFR IS A VALUE GREATER THAN OR EQUAL TO 60 ML/MIN/1.73 SQ METERS. CHRONIC KIDNEY DISEASE: <60mL/MIN/1.73 SQ METERS KIDNEY FAILURE: <15mL/MIN/1.73 SQ METERS THIS TEST SHOULD ONLY BE USED FOR PATIENTS 18 YEARS OF AGE AND OLDER. Performed By: #### 2 41959 #### [facility],[address] [place] [address] 15282 Globulin (S) [Mass/Vol] 5.2 g/dL High 1.5 - 3.[address] [facility] Comment on above: Performed By: #### 2 42023 #### [facility],[address] [place] [address] 78300 Glucose [Mass/Vol] 211 mg/dL High 74 - 106 [facility] Comment on above: Performed By: #### 2 90516 #### [facility],[address] [place] [address] 51121 Potassium [Moles/Vol] 4.3 mmol/L Normal 3.5 - 5.1 [facility] Comment on above: Performed By: #### 2 72032 #### [facility],[address] [place] [address] 22731 Protein [Mass/Vol] 8.5 g/dL High 6.4 - 8.2 [facility] Comment on above: Performed By: #### 2 62360 #### [facility],[address] [place] [address] 91408 Sodium [Moles/Vol] 138 mmol/L Normal 136 - 145 [facility] Comment on above: Performed By: #### 2 24108 #### [facility],[address] [place] [address] 53889 Urea nitrogen [Mass/Vol] 26 mg/dL High - [facility] Comment on above: Performed By: #### 2 18687 #### [facility],[address] [place] [address] BRAIN W/O CONTRASTon 11-04 CT BRAIN W/O CONTRAST [place] [id number] Patient: KRISTEN MANN Phone#: : 1950 Age: 73 Gender: F Pt. Type: ER Account: [id number] Location: [facility] Ordering: EVETTE GANT Exam Date: 11/22/2023/18:44 Family Phys: OLIVIER ACOSTA Charge Code: [id number] Physician: [place] Order #: [id number] Dose#: [id number] PROCEDURE: CT BRAIN WITHOUT CONTRAST COMPARISON: [facility], CT, BRAIN W/O CON, 03/15/2019, 15:35. INDICATIONS: Dizziness. TECHNIQUE: CT images were obtained without contrast material. All CT scans at this facility use dose modulation, iterative reconstruction, and/or weight based dosing when appropriate to reduce radiation dose to as low as reasonably achievable. IV CONTRAST: No IV contrast used,0ml TOTAL DOSE: 52.30 CTDIvol(mGy) FINDINGS: CEREBRUM: No edema, hemorrhage, mass. Global atrophy. Periventricular deep cerebral white matter hypodensities, in a patient of this age group this is most consistent with small vessel ischemic disease. CEREBELLUM: No edema, hemorrhage, mass. Global atrophy. BRAINSTEM: No edema, hemorrhage, mass, or inappropriate atrophy. CSF SPACES: The lateral ventricles are slightly larger in size compared to prior. There is fluid in the temporal horns. The cisterns, and sulci are proportionate to the degree of atrophy. No subarachnoid hemorrhage or mass. SKULL: Hyperostosis frontalis interna, benign age related finding. SINUSES: Limited views demonstrate no significant mucosal thickening or fluid. ORBITS: [place] ocular lenses are absent. OTHER: Atherosclerotic calcifications of the intracranial arteries. Degenerative changes of the right TMJ. CONCLUSION: 1. Lateral ventricles are slightly larger than on comparison exam, correlate for symptoms of normal pressure hydrocephalus. 2. No appreciable acute intracranial abnormality. Note: An acute ischemic event or extension of a chronic ischemic process may not be initially evident on CT. 3. Global atrophy and atherosclerosis Continued Report - Page 2 of 2 Patient: KRISTEN MANN Phone#: : 1950 Age: 73 Gender: F Pt. Type: ER Account: [id number] Location: [facility] Ordering: EVETTE GANT Exam Date: 11/22/2023/18:44 Family Phys: OLIVIER ACOSTA Charge Code: [id number] Physician: [place] Order #: [id number] Dose#: [id number] 4. Small vessel ischemic disease Dictated by: Rose Mary Hugo MD on 11/22/2023 at 19:02 Approved by: Rose Mary Hugo MD on 11/22/2023 at 19:10 Normal [facility] LIPASEon 11-22-2023 Lipase [Catalytic activity/Vol] 85.0 U/L High 15.0 - 78.0 [facility] Comment on above: Result Comment: *PLE ASE NOTE THAT RANGES FOR LIPASE HAVE CHANGED OF 09/03/23 DUE TO AN ASSAY UPDATE BY THE MAJOR GIFTS DIRECTOR.THE NEW ASSAY RANGE IS 6-250 U/L, WITH A REFERENCE RANGE OF 16-77 U/L. Performed By: #### 2 98710 #### [facility],[address] [place] [address] 60906 TROPONIN I, HIGH SENSITIVITY on 11-22-2023 HS TROPONIN 6.9 pg/mL Normal 0.0 - 51.4 [facility] Comment on above: Performed By: #### 2 44569 #### [facility],[address] [place] [address] 79792 URINALYSISon 11-22-2023 Amorphous NONE Normal [facility] Comment on above: Performed By: #### 2 96573 #### [facility],[address] [place] [address] 99418 Bacteria 1+ Normal [facility] Comment on above: Performed By: #### 2 47987 #### [facility],[address] [place] [address] 26858 Bilirubin Ql (U) Negative Normal NORMAL: NEGATIVE [facility] Comment on above: Performed By: #### 2 34819 #### [facility],[address] [place], [place] [id number] Casts NONE Normal [facility] Comment on above: Performed By: #### 2 28615 #### [facility],[address] [place], [place] [id number] Clarity (U) very cloudy Normal NORMAL: CLEAR [facility] Comment on above: Performed By: #### 2 32145 #### [facility],[address] [place] [address] 70040 Color (U) yellow Normal NORMAL: YELLOW [facility] Comment on above: Performed By: #### 2 81090 #### [facility],[address] [place] [address] 25670 Crystals LM Nom (Urine sed) NONE Normal [facility] Comment on above: Performed By: #### 2 42448 #### [facility],[address] [place] [address] 64290 Epi Cells MODERATE Normal [facility] Comment on above: Performed By: #### 2 00587 #### [facility],[address] [place] [address] 07515 Glucose Ql (U) 50 Abnormal NORMAL: NORMAL [facility] Comment on above: Performed By: #### 2 27636 #### [facility],[address] [place] [address] 25750 Hemoglobin Ql (U) 25 Abnormal NORMAL: NEGATIVE [facility] Comment on above: Performed By: #### 2 60359 #### [facility],[address] [place] [address] 52224 Ketone Negative Normal NORMAL: NEGATIVE [facility] Comment on above: Performed By: #### 2 18229 #### [facility],[address] [place] [address] 31219 Leukocytes 500 Abnormal NORMAL: NEGATIVE [facility] Comment on above: Performed By: #### 2 47075 #### [facility],[address] [place] [address] 69884 Mucous NONE Normal [facility] Comment on above: Performed By: #### 2 37865 #### [facility],[address] [place] [address] 15566 Nitrite Ql (U) Negative Normal NORMAL: NEGATIVE [facility] Comment on above: Performed By: #### 2 30813 #### [facility],[address] [place] [address] 83463 pH (U) 6 [pH] Normal NORMAL: 5.0-8.0 [facility] Comment on above: Performed By: #### 2 96779 #### [facility],[address] [place] [address] 75715 Protein Ql (U) 30 Abnormal NORMAL: NEGATIVE [facility] Comment on above: Performed By: #### 2 70134 #### [facility],[address] [place] [address] 44559 Rbc 0-5 Normal 0-3/hpf [facility] Comment on above: Performed By: #### 2 67851 #### [facility],[address] [place] [address] Sp [place] 1.015 Normal NORMAL: 1.010-1.030 [facility] Comment on above: Performed By: #### 2 50109 #### [facility],[address] [place] [address] Specimen Type Clean catch Normal [facility] Comment on above: Performed By: #### 2 01424 #### [facility],[address] [place] [address] Urinalysis dipstick W Reflex Microscopic panel (U) SEE BELOW Normal [facility] Comment on above: Result Comment: MICR OSCOPIC Performed By: #### 2 16089 #### [place] [address] Urobilinog NORM Normal NORMAL: NORMAL [facility] Comment on above: Performed By: #### 2 76965 #### [facility],[address] [place], [place] [id number] WBC (U) [#/Vol] /uL Normal 0-5/hpf [facility] Comment on above: Performed By: #### 2 26050 #### [facility],[address] [place], [place] [id number] Yeast 3+ Normal [facility] Comment on above: Performed By: #### 2 27777 #### [facility],[address] [place] [address] 30977 URINE CULTURE [CCL]on 2023 Bacteria identified Cx Nom (U) URCUL See Results Below See Below CULTURE, URINE NORMAL UROGENITAL CHRIS 50,000-<100,000 CFU/ml Normal urogenital chris SOURCE: URINE [facility] [place] [address] [place] [address] Sukhjinder Fregoso III, M.D. [id number] Normal [facility] Comment on above: Performed By: #### 2 66774 #### [facility],[address] [place] [address] 45522 URINE CULTURE [CCL]on 2023 Bacteria identified Cx Nom (U) URCUL See Results Below See Below CULTURE, URINE Mixed microbiota, including predominantly: CULTURE, URINE ESCHERICHIA COLI 10,000 -<50,000 CFU/ml Escherichia coli ORGANISM: ESCHERICHIA COLI ANTIBIOTIC MARTA DILUTN MARTA INTERP Ampicillin 4 Susceptible Cefazolin <=4 Susceptible For uncomplicated urinary tract infections, cefazolin results can be used to pre Ceftriaxone <=1 Susceptible Cefepime <=1 Susceptible Ertapenem <=0.5 Susceptible Meropenem <=0.25 Susceptible Ampicillin/Sulbact <=2 Susceptible Piperacillin/Tazobac <=4 Susceptible Gentamicin <=1 Susceptible Tobramycin <=1 Susceptible Trimeth sulfameth <=20 Susceptible Ciprofloxacin <=0.25 Susceptible Nitrofurantoin 64 Intermediate This test was developed and its performance characteristics determined by the [facility]'s [facility] [place] ([facility]). It has not been cleared or approved by the FDA. -[facility] is regulated under CLIA as qualified to perform high-complexity testing. This test is used for clinical purposes. It should not be regarded as investigational or for research. SOURCE: URINE [facility] [address] [place] [address] Sukhjinder Fregoso III, M.D. [id number] SEND TO IC YES Normal [facility] Comment on above: Performed By: #### 2 75825 #### [facility],[address] [place] [address] ABDOMEN/PELVIS Won 2023 CT ABDOMEN/PELVIS [place] [address] Patient: KRISTEN MANN Phone#: : 1950 Age: 73 Gender: F Pt. Type: ER Account: [id number] Location: [facility] Ordering: TAD PLATA Exam Date: 11/18/2023/2:36 Family Phys: OLIVIER ACOSTA Charge Code: [id number] Physician: [place] Order #: [id number] Dose#: 23.40 mGy PROCEDURE: CT ABDOMEN/PELVIS WITH CONTRAST COMPARISON: [facility], CT, ABDOMEN/PELVIS W CON, 01/03/2023, 13:29. INDICATIONS: Vomiting. TECHNIQUE: After obtaining the patient's consent, CT images were created with non-ionic intravenous contrast material. All CT scans at this facility use dose modulation, iterative reconstruction, and/or weight based dosing when appropriate to reduce radiation dose to as low as reasonably achievable. IV CONTRAST: Visipaque 320,80ml TOTAL DOSE: 23.40 CTDIvol(mGy) FINDINGS: LIVER: Normal. No enlargement, atrophy, abnormal density, or significant focal lesion. BILIARY: The gallbladder is absent. Surgical clips are present in the gallbladder fossa. PANCREAS: Normal. No lesion, fluid collection, ductal dilatation, or atrophy. SPLEEN: Normal. No enlargement or focal lesion. KIDNEYS: Normal. No mass, obstruction, or calcification. ADRENALS: Normal. No mass or enlargement. AORTA/VASCULAR: Aorta is present. No aneurysm or dissection. RETROPERITONEUM: Normal. No mass or adenopathy. BOWEL/MESENTERY: Moderate stool retention. ABDOMINAL WALL: Normal. No mass or hernia. URINARY BLADDER: Normal. No visible focal wall thickening, lesion, or calculus. PELVIC NODES: Normal. No adenopathy. PELVIC ORGANS: The uterus is absent. BONES: Degenerative changes of the spine are present. There has been vertebroplasty at several levels. There is loss of height at T12, L1 L3 and L5. Vacuum phenomenon is present at L3-4 and L4-5. There is minimal anterolisthesis at L4-5. Loss of height at L3 has progressed since prior exam. LUNG BASES: Coronary artery calcification is present. There is a small hiatal hernia. Continued Report - Page 2 of 2 Patient: KRISTEN MANN Phone#: : 1950 Age: 73 Gender: F Pt. Type: ER Account: [id number] Location: [facility] Ordering: TAD PLATA Exam Date: 11/18/2023/2:36 Family Phys: OLIVIER ACOSTA Charge Code: [id number] Physician: [place] Order #: [id number] Dose#: 23.40 mGy OTHER: Negative. CONCLUSION: 1. There is no evidence of acute abdominal or pelvic abnormality. Dictated by: Gini Drake MD on 11/18/2023 at 15:12 Approved by: Gini Drake MD on 11/18/2023 at 15:21 Normal [facility] URINALYSISon 11-18-2023 Amorphous NONE Normal [facility] Comment on above: Performed By: #### 2 06688 #### [facility],[address] [place] [address] Bacteria 3+ Normal [facility] Comment on above: Performed By: #### 2 07447 #### [facility],[address] [place] [address] Bilirubin Ql (U) Negative Normal NORMAL: NEGATIVE [facility] Comment on above: Performed By: #### 2 71325 #### [facility],[address] [place] [address] Casts SEE BELOW Normal [facility] Comment on above: Performed By: #### 2 81619 #### [facility],[address] [place] [address] Clarity (U) clear Normal NORMAL: CLEAR [facility] Comment on above: Performed By: #### 2 37993 #### [facility],[address] [place] [address] Color (U) yellow Normal NORMAL: YELLOW [facility] Comment on above: Performed By: #### 2 93929 #### [facility],[address] [place] [address] Crystals LM Nom (Urine sed) NONE Normal [facility] Comment on above: Performed By: #### 2 10767 #### [facility],[address] [place] [address] Epi Cells MODERATE Normal [facility] Comment on above: Performed By: #### 2 22210 #### [facility],[address] [place] [address] 78687 Glucose Ql (U) 50 Abnormal NORMAL: NORMAL [facility] Comment on above: Performed By: #### 2 26693 #### [facility],[address] [place] [address] 40044 Hemoglobin Ql (U) Negative Normal NORMAL: NEGATIVE [facility] Comment on above: Performed By: #### 2 36353 #### [facility],[address] [place] [address] 79052 Hyaline 1-5 Normal NORMAL: NONE [facility] Comment on above: Performed By: #### 2 83509 #### [facility],[address] [place] [address] 93410 Ketone 5 Abnormal NORMAL: NEGATIVE [facility] Comment on above: Performed By: #### 2 08570 #### [facility],[address] [place] [address] 56400 Leukocytes 25 Abnormal NORMAL: NEGATIVE [facility] Comment on above: Performed By: #### 2 91061 #### [facility],[address] [place] [address] 17672 Mucous 3+ Normal [facility] Comment on above: Performed By: #### 2 11065 #### [facility],[address] [place] [address] 74030 Nitrite Ql (U) Negative Normal NORMAL: NEGATIVE [facility] Comment on above: Performed By: #### 2 95975 #### [facility],[address] [place] [address] 52080 pH (U) 6 [pH] Normal NORMAL: 5.0-8.0 [facility] Comment on above: Performed By: #### 2 52700 #### [facility],[address] [place] [address] 83399 Protein Ql (U) 30 Abnormal NORMAL: NEGATIVE [facility] Comment on above: Performed By: #### 2 20885 #### [facility],[address] [place] [address] 38328 Rbc NONE Normal 0-3/hpf [facility] Comment on above: Performed By: #### 2 89226 #### [facility],[address] [place] [address] Sp [place] 1.020 Normal NORMAL: 1.010-1.030 [facility] Comment on above: Performed By: #### 2 29657 #### [facility],[address] [place] [address] Specimen Type Clean catch Normal [facility] Comment on above: Performed By: #### 2 10044 #### [facility],[address] [place] [address] Urinalysis dipstick W Reflex Microscopic panel (U) SEE BELOW Normal [facility] Comment on above: Result Comment: MICR OSCOPIC Performed By: #### 2 56903 #### [facility],[address] [place] [address] Urobilinog 1 Abnormal NORMAL: NORMAL [facility] Comment on above: Performed By: #### 2 28495 #### [facility],[address] [place] [address] Wbc 6-10 Normal 0-5/hpf [facility] Comment on above: Performed By: #### 2 57643 #### [facility],[address] [place], [place] [phone] Yeast NONE Normal [facility] Comment on above: Performed By: #### 2 53240 #### [facility],[address] [place], [place] [phone] C-REACTIVE PROTEINon 024 CRP 1.20 mg/dl High 0.00 - 0.90 [facility] Comment on above: Performed By: #### 2 45127 #### [facility],[address] [place] [address] 95185 CBC + DIFFon 11-17-2023 Baso # 0.04 x10EE3/UL Normal 0.00 - 0.10 [facility] Comment on above: Performed By: #### 2 92710 #### [facility],[address] [place] [address] 05207 Basophils/100 WBC (Bld) 0.3 % Normal 0.0 - 2.[address] [facility] Comment on above: Performed By: #### 2 98778 #### [facility],[address] [place] [address] CBC + DIFF Normal [facility] Comment on above: Result Comment: CBC- COMPLETE BLOOD COUNT Performed By: #### 2 04836 #### [facility],[address] [place] [address] EO # 0.40 x10EE3/UL Normal 0.00 - 0.50 [facility] Comment on above: Performed By: #### 2 49401 #### [facility],[address] [place] [address] 32481 Eosinophils/100 WBC (Bld) 2.7 % Normal 0.0 - 7.0 [facility] Comment on above: Performed By: #### 2 60383 #### [facility],[address] [place] [address] Erythrocyte distribution width (RBC) [Ratio] 14.4 % Normal 12.0 - 15.6 [facility] Comment on above: Performed By: #### 2 10307 #### [facility],[address] [place] [address] Hematocrit (Bld) [Volume fraction] 39.8 % Normal 34.0 - 46.0 [facility] Comment on above: Performed By: #### 2 50893 #### [facility],[address] [place], [place] [phone] Hemoglobin (Bld) [Mass/Vol] 13.6 g/dL Normal 12.0 - 16.0 [facility] Comment on above: Performed By: #### 2 02431 #### [place] [address] Lymph # 2.54 x10EE3/UL Normal 0.80 - 2.80 [facility] Comment on above: Performed By: #### 2 54927 #### [facility],[address] [place] [address] Lymphocytes/100 WBC (Bld) 16.7 % Low 20.0 - 45.0 [facility] Comment on above: Performed By: #### 2 02307 #### [facility],[address] [place] [address] MANUAL DIFF N/A Normal [facility] Comment on above: Performed By: #### 2 08369 #### [place] [address] MCH (RBC) [Entitic mass] 29 pg Normal 27 - 33 [facility] Comment on above: Performed By: #### 2 73427 #### [place] [address] MCHC 34 X10 3 Normal 32 - 36 [facility] Comment on above: Performed By: #### 2 26813 #### [place] [address] MCV (RBC) [Entitic vol] 84 fL Normal 80 - 99 [facility] Comment on above: Performed By: #### 2 81208 #### [place] [address] [place] # 1.09 x10EE3/UL High 0.20 - 1.00 [facility] Comment on above: Performed By: #### 2 26237 #### [place] [address] MONOS % 7.2 % Normal 0.0 - 10.0 [facility] Comment on above: Performed By: #### 2 84342 #### [facility],[address] [place] [address] Morphology Corey (Bld) [Interp] N/A Normal [facility] Comment on above: Performed By: #### 2 72419 #### [facility],[address] [place] [address] Neut # 11.13 x10EE3/UL High 1.50 - 7.10 [facility] Comment on above: Performed By: #### 2 25425 #### [place] [address] Neutrophils/100 WBC (Bld) 73.2 % Normal 46.0 - 76.0 [facility] Comment on above: Performed By: #### 2 78946 #### [place] [address] PLATELET 317 x10EE3/UL Normal 150 - 450 [facility] Comment on above: Performed By: #### 2 66326 #### [place] [address] Platelet mean volume (Bld) [Entitic vol] 8.0 fL Normal 6.6 - 10.5 [facility] Comment on above: Result Comment: AUTO MATED DIFFERENTIAL Performed By: #### 2 31169 #### [facility],[address] [place], [place] [phone] RBC 4.77 x 10EE6/UL Normal 4.10 - 5.30 [facility] Comment on above: Performed By: #### 2 02526 #### [facility],[address] [place] [address] WBC 15.2 x 10EE3/UL High 4.5 - 10.8 [facility] Comment on above: Performed By: #### 2 48922 #### [address],[place] [address] CMP with eGFRon 11-17-2023 AGE 73 years Normal [facility] Comment on above: Performed By: #### 2 04137 #### [facility],[address] [place] [address] 80898 Albumin [Mass/Vol] 3.0 g/dL Low 3.4 - 5.0 [facility] Comment on above: Performed By: #### 2 75699 #### [facility],[address] [place] [address] Albumin/Globulin [Mass ratio] 0.6 {ratio} Low 0.9 - 1.6 [facility] Comment on above: Performed By: #### 2 14549 #### [facility],[address] [place] [address] 46860 ALK PHOS 141 U/L High 46 - 116 [facility] Comment on above: Performed By: #### 2 21625 #### [facility],[address] [place] [address] 13697 ALT [Catalytic activity/Vol] 17 U/L Normal 16 - 63 [facility] Comment on above: Performed By: #### 2 06024 #### [facility],[address] [place], [place] [phone] Anion gap [Moles/Vol] 15 mmol/L Normal 10 - 20 [facility] Comment on above: Performed By: #### 2 92971 #### [facility],[address] [place] [address] 74886 AST [Catalytic activity/Vol] 16 U/L Normal 13 - 39 [facility] Comment on above: Performed By: #### 2 80855 #### [facility],[address] [place] [address] 47824 B/C RATIO 17 ratio Normal 0 - 30 [facility] Comment on above: Performed By: #### 2 81136 #### [facility],[address] [place] [address] 21416 Bilirubin [Mass/Vol] 0.3 mg/dL Normal 0.2 - 1.0 [facility] Comment on above: Performed By: #### 2 46957 #### [facility],[address] [place] [address] 90301 Calcium [Mass/Vol] 9.4 mg/dL Normal 8.5 - 10.1 [facility] Comment on above: Performed By: #### 2 50182 #### [facility],[address] [place] [address] 75506 Chloride [Moles/Vol] 103 mmol/L Normal 98 - 107 [facility] Comment on above: Performed By: #### 2 44044 #### [facility],[address] [place] [address] 45352 CMP with eGFR Normal [facility] Comment on above: Result Comment: COMP REHENSIVE METABOLIC PANEL Performed By: #### 2 48120 #### [facility],[address] [place] [address] 23013 CO2 [Moles/Vol] 27.1 mmol/L Normal 21.0 - 32.0 [facility] Comment on above: Performed By: #### 2 63151 #### [facility],[address] [place] [address] 72491 Creatinine [Mass/Vol] 1.60 mg/dL High 0.55 - 1.02 [facility] Comment on above: Performed By: #### 2 94049 #### [facility],[address] [place] [address] 52105 eGFR 32 ML/MINUTE Low 60 - 999 [facility] Comment on above: Performed By: #### 2 97672 #### [facility],[address] [place] [address] 19286 eGFR(AA) 39 ML/MINUTE Low 60 - 999 [facility] Comment on above: Result Comment: ACCO RDING TO THE NATIONAL KIDNEY DISEASE EDUCATION PROGRAM(NKDE), A NORMAL eGFR IS A VALUE GREATER THAN OR EQUAL TO 60 ML/MIN/1.73 SQ METERS. CHRONIC KIDNEY DISEASE: <60mL/MIN/1.73 SQ METERS KIDNEY FAILURE: <15mL/MIN/1.73 SQ METERS THIS TEST SHOULD ONLY BE USED FOR PATIENTS 18 YEARS OF AGE AND OLDER. Performed By: #### 2 92714 #### [facility],[address] [place] [address] 25643 Globulin (S) [Mass/Vol] 5.1 g/dL High 1.5 - 3.[address] [facility] Comment on above: Performed By: #### 2 37969 #### [address] [address] Glucose [Mass/Vol] 193 mg/dL High 74 - 106 [facility] Comment on above: Performed By: #### 2 99868 #### [address] [address] Potassium [Moles/Vol] 4.3 mmol/L Normal 3.5 - 5.1 [facility] Comment on above: Performed By: #### 2 02536 #### [address] [address] Protein [Mass/Vol] 8.1 g/dL Normal 6.4 - 8.2 [facility] Comment on above: Performed By: #### 2 84093 #### [address] [address] Sodium [Moles/Vol] 141 mmol/L Normal 136 - 145 [facility] Comment on above: Performed By: #### 2 01504 #### [address] [address] Urea nitrogen [Mass/Vol] 27 mg/dL High 7 - 18 [facility] Comment on above: Performed By: #### 2 64242 #### [address] [address] LIPASEon 11-17-2023 Lipase [Catalytic activity/Vol] 34.0 U/L Normal 15.0 - 78.0 [facility] Comment on above: Result Comment: *PLE ASE NOTE THAT RANGES FOR LIPASE HAVE CHANGED OF 09/03/23 DUE TO AN ASSAY UPDATE BY THE MAJOR GIFTS DIRECTOR.THE NEW ASSAY RANGE IS 6-250 U/L, WITH A REFERENCE RANGE OF 16-77 U/L. Performed By: #### 2 94349 #### [facility],[address] [place] [address] CBC + DIFFon 11-07-2023 Baso # 0.20 x10EE3/UL High 0.00 - 0.10 [facility] Comment on above: Performed By: #### 2 67136 #### [facility],[address] [place], [place] [phone] Basophils/100 WBC (Bld) 1.6 % Normal 0.0 - 2.[address] [facility] Comment on above: Performed By: #### 2 40263 #### [facility],[address] [place] [address] CBC + DIFF Normal [facility] Comment on above: Result Comment: CBC- COMPLETE BLOOD COUNT Performed By: #### 2 52958 #### [place] [id number] EO # 0.30 x10EE3/UL Normal 0.00 - 0.50 [facility] Comment on above: Performed By: #### 2 71258 #### [facility],[address] [place] [address] 09834 Eosinophils/100 WBC (Bld) 2.1 % Normal 0.0 - 7.0 [facility] Comment on above: Performed By: #### 2 69464 #### [facility],[address] [place], [place] [phone] Erythrocyte distribution width (RBC) [Ratio] 14.1 % Normal 12.0 - 15.6 [facility] Comment on above: Performed By: #### 2 84359 #### [facility],[address] [place] [address] 35728 Hematocrit (Bld) [Volume fraction] 41.9 % Normal 34.0 - 46.0 [facility] Comment on above: Performed By: #### 2 13049 #### [facility],[address] [place], [place] [phone] Hemoglobin (Bld) [Mass/Vol] 13.6 g/dL Normal 12.0 - 16.0 [facility] Comment on above: Performed By: #### 2 47518 #### [facility],[address] [place] [address] Lymph # 2.20 x10EE3/UL Normal 0.80 - 2.80 [facility] Comment on above: Performed By: #### 2 71394 #### [facility],[address] [place], [place] [phone] Lymphocytes/100 WBC (Bld) 16.5 % Low 20.0 - 45.0 [facility] Comment on above: Performed By: #### 2 34709 #### [facility],[address] [place] [address] MANUAL DIFF N/A Normal [facility] Comment on above: Performed By: #### 2 27801 #### [facility],[address] [place], [place] [phone] MCH (RBC) [Entitic mass] 28 pg Normal 27 - 33 [facility] Comment on above: Performed By: #### 2 15424 #### [facility],[address] [place] [address] 78433 MCHC 33 X10 3 Normal 32 - 36 [facility] Comment on above: Performed By: #### 2 33724 #### [facility],[address] [place] [address] 48885 MCV (RBC) [Entitic vol] 85 fL Normal 80 - [address] [facility] Comment on above: Performed By: #### 2 85549 #### [facility],[address] [place] [address] 03289 [place] # 0.90 x10EE3/UL Normal 0.20 - 1.00 [facility] Comment on above: Performed By: #### 2 74280 #### [facility],[address] [place] [address] 44809 MONOS % 6.6 % Normal 0.0 - 10.0 [facility] Comment on above: Performed By: #### 2 20573 #### [facility],[address] [place] [address] 72085 Morphology Corey (Bld) [Interp] N/A Normal [facility] Comment on above: Performed By: #### 2 73468 #### [facility],[address] [place] [address] 86551 Neut # 9.60 x10EE3/UL High 1.50 - 7.10 [facility] Comment on above: Performed By: #### 2 49979 #### [facility],[address] [place] [address] 71813 Neutrophils/100 WBC (Bld) 73.2 % Normal 46.0 - 76.0 [facility] Comment on above: Performed By: #### 2 00006 #### [facility],[address] [place] [address] 85767 PLATELET 397 x10EE3/UL Normal 150 - 450 [facility] Comment on above: Performed By: #### 2 26852 #### [facility],[address] [place] [address] 48889 Platelet mean volume (Bld) [Entitic vol] 7.7 fL Normal 6.6 - 10.5 [facility] Comment on above: Result Comment: AUTO MATED DIFFERENTIAL Performed By: #### 2 79419 #### [facility],[address] [place] [address] 89474 RBC 4.91 x 10EE6/UL Normal 4.10 - 5.30 [facility] Comment on above: Performed By: #### 2 26853 #### [facility],[address] [place] [address] 05363 WBC 13.1 x 10EE3/UL High 4.5 - 10.8 [facility] Comment on above: Performed By: #### 2 82660 #### [facility],[address] [place] [address] 61911 CMP with eGFRon 11-07-2023 AGE 73 years Normal [facility] Comment on above: Performed By: #### 2 11776 #### [facility],[address] [place] [address] 84308 Albumin [Mass/Vol] 3.2 g/dL Low 3.4 - 5.0 [facility] Comment on above: Performed By: #### 2 26452 #### [facility],[address] [place] [address] Albumin/Globulin [Mass ratio] 0.7 {ratio} Low 0.9 - 1.6 [facility] Comment on above: Performed By: #### 2 28778 #### [facility],[address] [place] [address] 95080 ALK PHOS 144 U/L High 46 - 116 [facility] Comment on above: Performed By: #### 2 88351 #### [facility],[address] [place] [address] 04217 ALT [Catalytic activity/Vol] 17 U/L Normal 16 - 63 [facility] Comment on above: Performed By: #### 2 27010 #### [facility],[address] [place] [address] 27235 Anion gap [Moles/Vol] 17 mmol/L Normal 10 - 20 [facility] Comment on above: Performed By: #### 2 03810 #### [facility],[address] [place] [address] 14545 AST [Catalytic activity/Vol] 13 U/L Normal 13 - 39 [facility] Comment on above: Performed By: #### 2 66904 #### [facility],[address] [place] [address] B/C RATIO 18 ratio Normal 0 - 30 [facility] Comment on above: Performed By: #### 2 31591 #### [facility],[address] [place] [address] Bilirubin [Mass/Vol] 0.2 mg/dL Normal 0.2 - 1.0 [facility] Comment on above: Performed By: #### 2 83064 #### [facility],[address] [place] [address] Calcium [Mass/Vol] 9.5 mg/dL Normal 8.5 - 10.1 [facility] Comment on above: Performed By: #### 2 12236 #### [facility],[address] [place], [place] [id number] Chloride [Moles/Vol] 103 mmol/L Normal 98 - 107 [facility] Comment on above: Performed By: #### 2 39363 #### [facility],[address] [place] [address] CMP with eGFR Normal [facility] Comment on above: Result Comment: COMP REHENSIVE METABOLIC PANEL Performed By: #### 2 53554 #### [facility],[address] [place], [place] [id number] CO2 [Moles/Vol] 23.5 mmol/L Normal 21.0 - 32.0 [facility] Comment on above: Performed By: #### 2 74477 #### [facility],[address] [place] [address] 49687 Creatinine [Mass/Vol] 1.53 mg/dL High 0.55 - 1.02 [facility] Comment on above: Performed By: #### 2 57352 #### [facility],[address] [place] [address] 04686 eGFR 33 ML/MINUTE Low 60 - 999 [facility] Comment on above: Performed By: #### 2 63025 #### [facility],[address] [place] [address] 01104 eGFR(AA) 41 ML/MINUTE Low 60 - 999 [facility] Comment on above: Result Comment: ACCO RDING TO THE NATIONAL KIDNEY DISEASE EDUCATION PROGRAM(NKDE), A NORMAL eGFR IS A VALUE GREATER THAN OR EQUAL TO 60 ML/MIN/1.73 SQ METERS. CHRONIC KIDNEY DISEASE: <60mL/MIN/1.73 SQ METERS KIDNEY FAILURE: <15mL/MIN/1.73 SQ METERS THIS TEST SHOULD ONLY BE USED FOR PATIENTS 18 YEARS OF AGE AND OLDER. Performed By: #### 2 44579 #### [facility],[address] [place] [address] 50451 Globulin (S) [Mass/Vol] 4.3 g/dL High 1.5 - 3.[address] [facility] Comment on above: Performed By: #### 2 86296 #### [facility],[address] [place] [address] 73285 Glucose [Mass/Vol] 194 mg/dL High 74 - 106 [facility] Comment on above: Performed By: #### 2 03443 #### [facility],[address] [place] [address] 08278 Potassium [Moles/Vol] 4.2 mmol/L Normal 3.5 - 5.1 [facility] Comment on above: Performed By: #### 2 45578 #### [address] [address] Protein [Mass/Vol] 7.5 g/dL Normal 6.4 - 8.2 [facility] Comment on above: Performed By: #### 2 35085 #### [facility],[address] [place] [address] 31091 Sodium [Moles/Vol] 139 mmol/L Normal 136 - 145 [facility] Comment on above: Performed By: #### 2 82004 #### [facility],[address] [place] [address] 06594 Urea nitrogen [Mass/Vol] 28 mg/dL High 7 - 18 [facility] Comment on above: Performed By: #### 2 09937 #### [facility],[address] [place] [address] 42098 CORONAVIRUS (SARS) ANTIGEN T ESTon 11-07-2023 EXTERNAL QC DONE? YES Normal [facility] Comment on above: Performed By: #### 2 88920 #### [facility],[address] [place] [address] INTERNAL CONTROL PASS Normal [facility] Comment on above: Performed By: #### 2 80644 #### [facility],[address] [place] [address] 19898 SARS ANTIGEN Negative Normal NORMAL: NEGATIVE [facility] Comment on above: Performed By: #### 2 24073 #### [facility],[address] [place] [address] 23939 SEND TO ? YES Normal [facility] Comment on above: Result Comment: SARS -CoV-2 THIS TEST IS BEING USED UNDER THE FDA EUA PROCEDURE. THIS ASSAY HAS BEEN VALIDATED AT [facility] FOR USE WITH NASAL AND NASOPHARYNGEAL SWAB SPECIMENS. INTERPRETIVE DATA TEST RESULTS SHOULD ALWAYS BE CONSIDERED IN THE CONTEXT OF CLINICAL OBSERVATIONS AND EPIDEMIOLOGICAL DATA IN MAKING FINAL DIAGNOSIS AND PATIENT MANAGEMENT DECISIONS. PATIENT MANAGEMENT SHOULD FOLLOW CURRENT CDC GUIDELINES. THE DOMINIQUE SARS ANTIGEN NAKUL DOES NOT DIFFERENTIATE BETWEEN SARS-CoV & SARS-CoV-2. A POSITIVE TEST RESULT INDICATES THE PRESENCE OF SARS-CoV-2 NUCLEOCAPSID PROTEIN ANTIGEN, AND THE PATIENT IS INFECTED WITH THE VIRUS AND PRESUMED TO BE CONTAGIOUS. A NEGATIVE TEST RESULT FOR THIS TEST MEANS THAT SARS-CoV-2 NUCLEOCAPSID PROTEIN ANTIGEN WAS NOT PRESENT IN THE SPECIMEN ABOVE THE LIMIT OF DETECTION. HOWEVER, A NEGATIVE RESULT DOES NOT RULE OUT COVID-19 AND SHOULD NOT BE USED THE SOLE BASIS FOR TREATMENT OR PATIENT MANAGEMENT DECISIONS. A NEGATIVE RESULT DOES NOT EXCLUDE THE POSSIBILITY OF COVID-19. NEGATIVE RESULTS, FROM PATIENTS WITH SYMPTOM ONSET BEYOND FIVE DAYS, SHOULD BE TREATED PRESUMPTIVE AND CONFIRMATION WITH A MOLECULAR ASSAY, IF NECESSARY, FOR PATIENT MANAGEMENT, MAY BE PERFORMED. WHEN DIAGNOSTIC TESTING IS NEGATIVE, THE POSSIBLILTY OF A FALSE NEGATIVE RESULT SHOULD BE CONSIDERED IN THE CONTEXT OF A PATIENT'S RECENT EXPOSURES AND THE PRESENCE OF CLINICAL SIGNS AND SYMPTOMS CONSISTENT WITH COVID-19. THE POSSIBILITY OF A FALSE NEGATIVE RESULT SHOULD ESPECIALLY BE CONSIDERED IF THE PATIENT'S RECENT EXPOSURES OR CLINICAL PRESENTATION INDICATE THAT COVID-19 IS LIKELY, AND DIAGNOSTIC TESTS FOR OTHER CAUSES OF ILLNESS (e.g., OTHER RESPIRATORY ILLNESS) ARE NEGATIVE. IF COVID-19 IS STILL SUSPECTED BASED ON EXPOSURE HISTORY TOGETHER WITH OTHER CLINICAL FINDINGS, RE-TESTING SHOULD BE CONSIDERED BY HEALTHCARE PROVIDERS IN CONSULTATION WITH PUBLIC HEALTH AUTHORITIES. Performed By: #### 2 90638 #### [address] [address] INFLUENZA VIRUS RAPID A/Bon 11-07-2023 INFLUENZA VIRUS RAPID A/B INFLUENZA A NEGATIVE INFLUENZA B NEGATIVE INTERNAL NEG QC PASS INTERNAL POS QC PASS EXTERNAL QC DONE? YES SEND TO IC? YES A NEGATIVE TEST RESULT DOES NOT EXCLUDE INFECTION WITH INFLUENZA A OR B. THEREFORE, THE RESULTS OBTAINED FROM THIS FLU TEST SHOULD BE USED IN CONJUCTION WITH CLINICAL FINDINGS TO MAKE AN ACCURATE DIAGNOSIS. A POSITIVE RESULT DOES NOT RULE OUT CO-INFECTIONS WITH OTHER PATHOGENS OR IDENTIFY ANY SPECIFIC INFLUENZA A VIRUS SUBTYPE.CO-INFECTION WITH INFLUENZA A AND B IS RARE. IT IS RECOMMENDED THAT "DUAL POSITIVE" RESULTS BE CONFIRMED BY VIRAL CULTURE OR AN FDA-CLEARED INFLUENZA A AND B MOLECULAR ASSAY. INDIVIDUALS WHO HAVE RECEIVED NASALLY ADMINISTERED INFLUENZA A VACCINE MAY TEST POSITIVE IN COMMERCIALLY AVAILABLE INFLUENZA RAPID DIAGNOSTIC TESTS FOR UP TO THREE DAYS. RESULT CRITICAL? NO Normal [facility] Comment on above: Performed By: #### 2 64075 #### [address] [address] LIPASEon 11-07-2023 Lipase [Catalytic activity/Vol] 32.0 U/L Normal 15.0 - 78.0 [facility] Comment on above: Result Comment: *PLE ASE NOTE THAT RANGES FOR LIPASE HAVE CHANGED OF 09/03/23 DUE TO AN ASSAY UPDATE BY THE MAJOR GIFTS DIRECTOR.THE NEW ASSAY RANGE IS 6-250 U/L, WITH A REFERENCE RANGE OF 16-77 U/L. Performed By: #### 2 55785 #### [facility],[address] [place] [address]1814 URINALYSISon 11-07-2023 Amorphous NONE Normal [facility] Comment on above: Performed By: #### 2 09582 #### [facility],[address] [place] [address] 28695 Bacteria 1+ Normal [facility] Comment on above: Performed By: #### 2 74687 #### [facility],[address] [place] [address] 04357 Bilirubin Ql (U) Negative Normal NORMAL: NEGATIVE [facility] Comment on above: Performed By: #### 2 58053 #### [facility],[address] [place], [place] [phone] Casts NONE Normal [facility] Comment on above: Performed By: #### 2 05922 #### [facility],[address] [place] [address] 04584 Clarity (U) CLOUDY Abnormal NORMAL: CLEAR [facility] Comment on above: Performed By: #### 2 90142 #### [facility],[address] [place] [address]237 Color (U) yellow Normal NORMAL: YELLOW [facility] Comment on above: Performed By: #### 2 31287 #### [facility],[address] [place] [address] 08000 Crystals LM Nom (Urine sed) NONE Normal [facility] Comment on above: Performed By: #### 2 57567 #### [facility],[address] [place] [address] 98331 Epi Cells OCC Normal [facility] Comment on above: Performed By: #### 2 26895 #### [facility],[address] [place] [address] 83311 Glucose Ql (U) 50 Abnormal NORMAL: NORMAL [facility] Comment on above: Performed By: #### 2 24516 #### [facility],[address] [place] [address] 06823 Hemoglobin Ql (U) 25 Abnormal NORMAL: NEGATIVE [facility] Comment on above: Performed By: #### 2 59307 #### [facility],[address] [place] [address] 50838 Ketone Negative Normal NORMAL: NEGATIVE [facility] Comment on above: Performed By: #### 2 87677 #### [facility],[address] [place] [address] 92707 Leukocytes 500 Abnormal NORMAL: NEGATIVE [facility] Comment on above: Performed By: #### 2 86446 #### [facility],[address] [place] [address] 29219 Mucous NONE Normal [facility] Comment on above: Performed By: #### 2 19808 #### [facility],[address] [place] [address] 90586 Nitrite Ql (U) Negative Normal NORMAL: NEGATIVE [facility] Comment on above: Performed By: #### 2 67122 #### [facility],[address] [place] [address] 58495 pH (U) 6 [pH] Normal NORMAL: 5.0-8.0 [facility] Comment on above: Performed By: #### 2 31280 #### [facility],[address] [place] [address] 81258 Protein Ql (U) 30 Abnormal NORMAL: NEGATIVE [facility] Comment on above: Performed By: #### 2 26367 #### [facility],[address] [place] [address] 93445 Rbc 0-5 Normal 0-3/hpf [facility] Comment on above: Performed By: #### 2 25391 #### [facility],[address] [place], [place] [phone] [place] 1.015 Normal NORMAL: 1.010-1.030 [facility] Comment on above: Performed By: #### 2 32438 #### [facility],[address] [place] [address] Specimen Type R Normal [facility] Comment on above: Performed By: #### 2 07232 #### [facility],[address] [place] [address] Urinalysis dipstick W Reflex Microscopic panel (U) SEE BELOW Normal [facility] Comment on above: Result Comment: MICR OSCOPIC Performed By: #### 2 31577 #### [facility],[address] [place] [address] Urobilinog NORM Normal NORMAL: NORMAL [facility] Comment on above: Performed By: #### 2 01991 #### [facility],[address] [place] [address] WBC (U) [#/Vol] /uL Normal 0-5/hpf [facility] Comment on above: Performed By: #### 2 47042 #### [facility],[address] [place] [address] Yeast 1+ Normal [facility] Comment on above: Performed By: #### 2 65700 #### [facility],[address] [place], [place] [phone] URINE CULTURE [CCL]on 2023 Bacteria identified Cx Nom (U) URCUL See Results Below See Below CULTURE, URINE NORMAL UROGENITAL CHRIS >=100,000 CFU/ml Normal urogenital chris SOURCE: URINE [facility] [address] [place] [address] Sukhjinder Fregoso III, M.D. [id number] Normal [facility] Comment on above: Performed By: #### 2 60455 #### [facility],[address] [place], [place] [phone] XR KNEE RIGHT 4+ VIEWS (SPEC YIN VIEWS IN COMMENTS)on 10-25-2023 XR KNEE RIGHT 4+ VIEWS (SPECIFY VIEWS IN COMMENTS) EXAMINATION: XR KNEE RIGHT 4+ VIEWS (SPECIFY VIEWS IN COMMENTS) 10/25/2023 1:49 pm HISTORY: ORDERING SYSTEM PROVIDED HISTORY: Follow-up exam, TECHNOLOGIST PROVIDED HISTORY: Injury/Trauma Reason for exam: follow up from fall on 10/22/23 right knee pain hard time walking and standing Cancer History: u Surgery, RadiationHistory: u Encounter Type: Initial Mechanism of injury: fall ORDERING SYSTEM PROVIDED DIAGNOSIS CODES: Z09 Follow-up exam COMPARISON: Knee x-rays, 10/22/2023. FINDINGS: Four views obtained. Patient is osteopenic. No acute fracture. No dislocation. No joint effusion appreciated. There is some soft tissue swelling anteriorly along the patellar tendon. Severe joint space narrowing in the patellofemoral compartment. No significant joint space narrowing in the lateral or medial joint compartments. IMPRESSION: 1. No acute fracture identified. 2. Soft tissue swelling anteriorly. 3. Severe joint space narrowing in the patellofemoral compartment. [facility] Workstation ID: [id number] Dictated by: AXEL HERNANDEZ on WedOct 26, 2023 2:00:06 PM EST Transcribed by: CARITO TRUONG on WedOct 26, 2023 2:25:53 PM EST Finalized by: AXEL HERNANDEZ on WedOct 26, 2023 5:15:47 PM EST Normal [facility] Comment on above: Order Comment: Injur y/Trauma or Illness?:Injury/Trauma How long have you had these symptoms (acute/chronic)?:Acute Reason for exam?:follow up from fall on 10/22/23 right knee pain hard time walking and standing History of cancer?:u Surgeries, chemotherapy, or radiation?:u Type of Exam?:Initial Mechanism of injury?:fall CT HEAD OR BRAIN WITHOUT CON TRASTon 10-22-2023 CT HEAD OR BRAIN WITHOUT CONTRAST EXAMINATION: CT HEAD OR BRAIN WITHOUT CONTRAST10/22/2023 3:19 pm TECHNIQUE: Routine protocol multiplanar reformatted axial CT acquisition At least one of the following dose reduction techniques was utilized: Iterative reconstruction, and/or Automatic Exposure Control, and/or mA/kV adjustment based on body size. INDICATION: Syncope/presyncope, cerebrovascular cause suspected Injury/Trauma or Illness?:Illness/Other How long have you had these symptoms (acute/chronic)?:Acute Reason for exam?:dizzy, lightheadness, pt states she fell yesterday but unsure if she hit head Type of Exam?:Initial Additional signs and symptoms?:. COMPARISON: 09/30/[address] FINDINGS: No intracranial fluid collection or hemorrhage. Stable mild from prior predominant bird confluent periventricular and patchy deep white matter hypodensity bilaterally. [id number] generalized cerebral volume loss. Brain and CSF spaces are not otherwise remarkable. OTHER: No significant extraneous finding IMPRESSION: No acute intracranial abnormality demonstrated Mild probable chronic microvascular ischemic white matter change Workstation ID: [id number] Dictated by: ANNI MEDINA on WedOct 22, 2023 3:28:50 PM EST Transcribed by: ANNI MEDINA on WedOct 22, 2023 3:28:50 PM EST Finalized by: ANNI MEDINA on WedOct 22, 2023 3:28:50 PM EST Normal [facility] Comment on above: Order Comment: Injur y/Trauma or Illness?:Injury/Trauma How long have you had these symptoms (acute/chronic)?:Acute Reason for exam?:LEFT ARM PAIN History of cancer?:u Surgeries, chemotherapy, or radiation?:u Type of Exam?:Initial Mechanism of injury?:fall XR CHEST PA/APon 10-22-2023 XR CHEST PA/AP EXAMINATION: XR CHEST PA/AP 10/22/2023 4:17 pm HISTORY: ORDERING SYSTEM PROVIDED HISTORY: dizziness, TECHNOLOGIST PROVIDED HISTORY: Illness/Other Reason for exam: dizziness Cancer History: u Surgery, RadiationHistory: u Encounter Type: Initial Additional signs and symptoms: n ORDERING SYSTEM PROVIDED DIAGNOSIS CODES: R42 Dizziness R73.9 Hyperglycemia COMPARISON: 09/30/2023 FINDINGS: This is an expiratory chest. Heart and vascularity are unremarkable. Bipolar pacing device is noted. Lungs are free of focal infiltrates. EKG leads overlie the chest. IMPRESSION: 1. Expiratory chest. 2. No acute heart or lung disease identified. Workstation ID: [id number] Dictated by: TAD LOPEZ on WedOct 22, 2023 4:31:30 PM EST Transcribed by: TAD LOPEZ on WedOct 22, 2023 4:31:30 PM EST Finalized by: TAD LOPEZ on WedOct 22, 2023 4:31:30 PM EST Normal [facility] Comment on above: Order Comment: Injur y/Trauma or Illness?:Injury/Trauma How long have you had these symptoms (acute/chronic)?:Acute Reason for exam?:L-1/ L-3 KYPHOPLASTY Type of Exam?:Subsequent/Follow-up Mechanism of injury?:FALL Fluoro time in minutes:6.43 Fluoro dose in mGy?:557.2 XR KNEE RIGHT 2 VIEWS (STAND PEGGY)on 10-22-2023 XR KNEE RIGHT 2 VIEWS (STANDARD) EXAMINATION: XR KNEE RIGHT 2 VIEWS (STANDARD) HISTORY: ORDERING SYSTEM PROVIDED HISTORY: fall, TECHNOLOGIST PROVIDED HISTORY: Injury/Trauma Reason for exam: Pain Cancer History: u Surgery, RadiationHistory: u Encounter Type: Initial Mechanism of injury: Reent falls, twisted knee ORDERING SYSTEM PROVIDED DIAGNOSIS CODES: R42 Dizziness R73.9 Hyperglycemia COMPARISON: 05/04/2023 IMPRESSION: FINDINGS/ 1. No evidence of acute osseous abnormality of the right knee. No significant effusion. 2. Osteopenia. 3. Severe patellofemoral degenerative change better seen on prior sunrise view. Mild degenerative change of the medial and lateral compartments. 4. Peripheral arterial disease. Workstation ID: [id number] Dictated by: NEW STARK on WedOct 22, 2023 5:12:50 PM EST Transcribed by: NEW STARK on WedOct 22, 2023 5:12:50 PM EST Finalized by: NEW STARK on WedOct 22, 2023 5:12:50 PM EST [facility] Comment on above: Order Comment: Injur y/Trauma or Illness?:Injury/Trauma How long have you had these symptoms (acute/chronic)?:Acute Reason for exam?:L-1/ L-3 KYPHOPLASTY Type of Exam?:Subsequent/Follow-up Mechanism of injury?:FALL Fluoro time in minutes:6.43 Fluoro dose in mGy?:557.2 Laboratory - Drug toxicology Ordered By: Elizabeth Fuentes on 10-18-2023 Amphetamines Ql (U) Negative <1000 ng/mL [facility] Benzodiazepines Ql (U) Negative < 200 ng/mL [facility] Cannabinoids Screen Ql (U) Negative < 50 ng/mL [facility] Cocaine Ql (U) Negative < 300 ng/mL [facility] Opiates Ql (U) Negative < 300 ng/mL [facility] No Panel InformationOrdered By: Elizabeth Fuentes on 10-18-2023 MDMA (Ecstasy) Screen Negative < 500 ng/mL [facility] Urine Barbiturates Screen Negative < 200 ng/mL [facility] Urine Drug Screen Comment [facility] Comment on above: CONFIRMATORY TESTING FOR ALL POSITIVE URINE DRUG SCREENRESULTS WILL ONLY BE SENT OUT UPON PHYSICIAN ORDER. [facility]IST[facility] Urine Drug Screen methods provide only preliminaryanalytical test results. A more specific alternate chemicalmethod must be used in order to obtain a confirmedanalytical result. Gas chromatography/mass spectrometery(GC/MS) is the preferred confirmatory method. Clinicalconsideration and professional judgement should be appliedto any drug of abuse test result, particularly whenpreliminary positive results are used. URINE TCA TESTING MUST BE ORDERED SEPARATELY. USE TESTMNEMONIC: [facility] Urine Methadone Screen Negative < 300 ng/mL [facility] Urine phencyclidine (PCP) de tectionOrdered By: Elizabeth Fuentes on 10-18-2023 Phencyclidine Ql (U) Negative < 25 ng/mL [facility] US DOPPLER CAROTIDon 024 US DOPPLER CAROTID Patient Info Name: KRISTEN MANN Age: 73 years : 1950 Gender: Female Exam Date: 10/01/2023 7:36 AM Patient Status: Inpatient Dining Room Helper: Pat Uribe, DEBRA, RDMS, RVT Referring Physician: LENA Hebert; Indications - Syncope R55 - Syncope and collapse Procedure Description 02358 Duplex examination using B-mode, color and spectral Doppler of extracranial arteries; complete bilateral study. NASCET criteria is used when performing imaging correlation with carotid duplex interpretation. Conclusions * Bilateral. * Less than 50% stenosis in the right and left internal carotid arteries. * Right and left vertebral arteries are patent with antegrade flow. * No evidence of hemodynamically significant stenosis in the right or left common carotid, external carotid and subclavian arteries. Measurements - Name Value - Right PSV - Right Prox CCA PSV 49 cm/s Right Mid CCA PSV 63 cm/s Right Distal CCA PSV 53 cm/s Right Prox ICA PSV 67 cm/s Right Mid ICA PSV 54 cm/s Right Distal ICA PSV 63 cm/s Right ECA PSV 67 cm/s Right Vert PSV 35 cm/s Right Prox SCA PSV 147 cm/s Rt ICA/CCA Ratio 1.3 Measurements - Name Value - Right EDV - Right Prox CCA EDV 8 cm/s Right Mid CCA EDV 15 cm/s Right Distal CCA EDV 16 cm/s Right Prox ICA EDV 19 cm/s Right Mid ICA EDV 17 cm/s Right Distal ICA EDV 21 cm/s Right ECA EDV 10 cm/s Right Vert EDV 7 cm/s Right Prox SCA EDV 0 cm/s Measurements - Name Value - Left PSV - Left Prox CCA PSV 68 cm/s Left Mid CCA PSV 63 cm/s Left Distal CCA PSV 58 cm/s Left Prox ICA PSV 71 cm/s Left Mid ICA PSV 50 cm/s Left Distal ICA PSV 69 cm/s Left ECA PSV 79 cm/s Left Vert PSV 47 cm/s Left Prox SCA PSV 98 cm/s Lt ICA/CCA Ratio 1.2 Measurements - Name Value - Left EDV - Left Prox CCA EDV 15 cm/s Left Mid CCA EDV 13 cm/s Left Distal CCA EDV 15 cm/s Left Prox ICA EDV 21 cm/s Left Mid ICA EDV 14 cm/s Left Distal ICA EDV 18 cm/s Left ECA EDV 16 cm/s Left Vert EDV 9 cm/s Left Prox SCA EDV 0 cm/s Right Findings * No plaque noted in the right common carotid artery. * No plaque noted in the right external carotid artery. * Calcific plaque noted in the right internal carotid artery. Left Findings * No plaque noted in the left common carotid artery. * No plaque noted in the left external carotid artery. * Calcific plaque noted in the left internal carotid artery. Risk Factors Patient has a history of hyperlipidemia, diabetes and TIA. . Report Signatures Finalized by Pascual Shultz MD, RPVI on 10/01/2023 08:54 AM [facility] CT CERVICAL SPINE WITHOUT CO NTRASTon 09-30-2023 CT CERVICAL SPINE WITHOUT CONTRAST EXAMINATION: CT CERVICAL SPINE WITHOUT CONTRAST HISTORY: ORDERING SYSTEM PROVIDED HISTORY: recurrent syncope, anterior chest and abdominal pain, left hurley pain, fall, TECHNOLOGIST PROVIDED HISTORY: Injury/Trauma Reason for exam: unwitnessed fall hitting back of head, loc, neck pain, dizziness Encounter Type: Initial Mechanism of injury: . ORDERING SYSTEM PROVIDED DIAGNOSIS CODES: COMPARISON: 10/08/2022 TECHNIQUE: CT cervical spine without contrast. Multiplanar reformats. Dose reduction techniques were achieved by using automated exposure control and/or adjustment of mA and/or kV according to patient size and/or use of iterative reconstruction technique. FINDINGS: There are mild/moderate degenerative changes of the cervical and upper thoracic spine. There are old stable mild compression deformities of the superior endplates of C7 and T2. The predental space and prevertebral soft tissues are within normal limits. The heights of the cervical vertebra are otherwise are maintained. There is no acute fracture seen or any subluxation. IMPRESSION: 1. Mild/moderate cervical and upper thoracic spondylosis. 2. Old stable mild compression deformities of the superior endplates of C7 and T2. 3. No acute traumatic findings. No acute fracture or traumatic subluxation. Workstation ID: [id number] Dictated by: EMMANUEL AGOSTO on WedSep 30, 2023 3:01:36 PM EST Transcribed by: EMMANUEL AGOSTO on WedSep 30, 2023 3:01:36 PM EST Finalized by: EMMANUEL AGOSTO on WedSep 30, 2023 3:01:36 PM EST Normal [facility] Comment on above: Order Comment: Injur y/Trauma or Illness?:Injury/Trauma How long have you had these symptoms (acute/chronic)?:Acute Reason for exam?:LEFT ARM PAIN History of cancer?:u Surgeries, chemotherapy, or radiation?:u Type of Exam?:Initial Mechanism of injury?:fall CT CHEST ABDOMEN PELVIS WITH OUT CONTRAST WITH T/L RECONSon 09-30-2023 CT CHEST ABDOMEN PELVIS WITHOUT CONTRAST WITH T/L RECONS EXAMINATION: CT SCAN OF THE CHEST, ABDOMEN AND PELVIS AND CT SCAN OF THE THORACIC AND LUMBOSACRAL SPINE WITH RECONSTRUCTIONS HISTORY: Unwitnessed fall hitting back of head, loc, neck pain, dizziness, syncopal episode, chest pain COMPARISON: CT scan pulmonary arteries 12/30/2021, CT scan of the thoracic spine 10/08/2022 and lumbar spine 07/06/2023 TECHNIQUE: Helical axial images were obtained from thoracic inlet through the chest, abdomen and pelvis to below pubic symphysis. CT scans of the thoracic and lumbosacral spine with multiplanar 3D reconstructions. FINDINGS: CT scan of the chest: There is nonaneurysmal atherosclerotic disease thoracic aorta. There are coronary artery calcifications and heart size is normal. There is a transvenous pacing device right heart. Small sliding hiatal hernia. No lymphadenopathy is seen. There is stable noncalcified soft tissue nodules favoring granulomas. There is basilar atelectasis. No pneumothorax or effusion is seen. Soft tissues are normal. Benign-appearing calcifications in the right breast. There are degenerative changes of the spine with an acute compression fracture deformity T7 vertebral body. No significant retropulsion is seen. Remote superior endplate compression fracture deformities upper thoracic vertebral bodies and there is prior vertebroplasty at T11 and T12 with interval compression of T12. CT scan of the abdomen: The liver, spleen, pancreas, adrenal glands and kidneys are normal. There is a small hiatal hernia. Proximal bowel is normal. There is atherosclerotic disease aorta and iliacs. No free fluid or free air is seen. CT scan of the pelvis: Distal ureters and bladder normal. There has been a hysterectomy. The bowel is unremarkable. No free fluid is seen. Soft tissues normal. There are degenerative changes lumbosacral spine and there has been prior vertebroplasty L1 and L3 with a metallic wire device in the L3 vertebral body bilateral pedicles. Compression fracture deformity L3 and L5 stable and interval vertebroplasty of L1 with compression. CT scan thoracic and lumbosacral spine: Osteopenia, degenerative changes. Acute T7 compression fracture deformity with moderate loss of height is new although significant retropulsion identified. There has been interval vertebroplasty L1 and L3 and there is stable vertebroplasty T11-T12 with compression fracture T12 and retropulsion producing mild spinal stenosis which is stable. Metallic needles identified in the L3 pedicles bilaterally. IMPRESSION: 1. There is an acute T7 compression fracture deformity with flattening although no significant retropulsion or spinal stenosis. There are also prior vertebroplasties with compression deformities of T12 stable, interval vertebroplasty of L3 with compression deformity. Stable L5 compression deformity. Remote T3 compression fracture deformity. 2. No rib fracture is seen. No pneumothorax or acute process involving the chest. No acute traumatic process abdomen and pelvis. 3. Atherosclerotic disease. Coronary artery disease. 4. Hiatal hernia. MN/ Workstation ID: [id number] Dictated by: HENNA ACEVEDO on WedSep 30, 2023 3:50:49 PM EST Transcribed by: MORENO MCDANIEL on WedSep 30, 2023 3:53:44 PM EST Finalized by: HENNA ACEVEDO on WedOct 01, 2023 8:13:52 AM EST Normal [facility] Comment on above: Order Comment: Injur y/Trauma or Illness?:Injury/Trauma How long have you had these symptoms (acute/chronic)?:Acute Reason for exam?:LEFT ARM PAIN History of cancer?:u Surgeries, chemotherapy, or radiation?:u Type of Exam?:Initial Mechanism of injury?:fall CT HEAD OR BRAIN WITHOUT CON TRASTon 09-30-2023 CT HEAD OR BRAIN WITHOUT CONTRAST EXAMINATION: CT HEAD OR BRAIN WITHOUT CONTRAST HISTORY: ORDERING SYSTEM PROVIDED HISTORY: Recurrent syncope, anterior chest and abdominal pain, left hurley pain, fall, TECHNOLOGIST PROVIDED HISTORY: Injury/Trauma Reason for Exam: Unwitnessed fall hitting back of head, loc, neck pain, dizziness Encounter Type: Initial Mechanism of Injury: . ORDERING SYSTEM PROVIDED DIAGNOSIS CODES: COMPARISON: CT head without contrast 07/05/2023. TECHNIQUE: CT examination of the head without IV contrast. Dose reduction techniques were achieved by using automated exposure control and/or adjustment of mA and/or kV according to patient size and/or use of iterative reconstruction technique. FINDINGS: The paranasal sinuses are clear. Mastoid air cells clear. Skull base intact. Nasopharynx normal. Compliance Spec spaces are normal. Prior cataract surgery. Brain atrophy stable. Chronic microvascular ischemic changes are seen in the periventricular white matter. No subdural fluid collection. No mass effect. No acute hemorrhage. No masses. IMPRESSION: 1. Stable CT of the head. No acute findings. No hemorrhage. 2. Stable brain atrophy. DMG/lab Workstation ID: [id number] Dictated by: AXEL HERNANDEZ on WedSep 30, 2023 2:50:27 PM EST Transcribed by: MARIUM HERZOG on WedSep 30, 2023 3:09:36 PM EST Finalized by: AXEL HERNANDEZ on WedSep 30, 2023 3:44:29 PM EST Normal [facility] Comment on above: Order Comment: Injur y/Trauma or Illness?:Injury/Trauma How long have you had these symptoms (acute/chronic)?:Acute Reason for exam?:LEFT ARM PAIN History of cancer?:u Surgeries, chemotherapy, or radiation?:u Type of Exam?:Initial Mechanism of injury?:fall MR LUMBAR SPINE WITHOUT CONT [facility] 09-30-2023 MR LUMBAR SPINE WITHOUT CONTRAST EXAMINATION: MR LUMBAR SPINE WITHOUT CONTRAST HISTORY: ORDERING SYSTEM PROVIDED HISTORY: fall, spine fracture, TECHNOLOGIST PROVIDED HISTORY: Injury/Trauma Reason for exam: back pain following fall 2 days ago: mri conditional pacemaker Encounter Type: Unknown Mechanism of injury: fall ORDERING SYSTEM PROVIDED DIAGNOSIS CODES: COMPARISON: CT of the chest, abdomen and pelvis from 09/30/2023. Lumbar spine CT from 07/06/2023. TECHNIQUE: Sagittal T1, T2 and STIR images were obtained through the lumbar spine. The patient could not tolerate further imaging and no axial images could be obtained. FINDINGS: Sagittal crabber images through the entirety of the spine demonstrate 6 lumbar-type vertebral bodies in addition to the 12 thoracic and 7 cervical vertebral bodies. Numbering for this study will be L1 through L6. There has been prior vertebroplasty at the T12 level. There is a moderate chronic superior endplate compression deformity at L1 and a smxs-uu-bjwtrtza chronic inferior endplate compression deformity at L2 with prior vertebroplasty at these levels as well. There is also a moderate chronic superior endplate compression deformity at L4 with changes of prior vertebroplasty. A large Schmorl's node deformity is again identified involving the superior endplate of L6. There is anterolisthesis of L5 on L6 measuring 6 mm with severe degenerative disc disease at L5-L6 demonstrated by disc space narrowing and endplate spurring. There is disc desiccation and mild anterior endplate spurring throughout the lumbar spine. No gross abnormality is identified involving visualized intraabdominal or intrapelvic structures. The upper sacrum appears intact. No pars defects are visualized. L6-S1: There is a mild disc bulge and moderate facet arthropathy. No central or foraminal stenosis is evident. L5-L6: There is anterolisthesis of L5 on L6 with severe degenerative disc disease and a broad-based disc protrusion with severe facet arthropathy. There is nparqrfr-gf-aaccew bilateral foraminal narrowing and mild central narrowing. L4-L5: There is a 5 mm broad-based disc protrusion and lpzd-zr-pnkopoea facet arthropathy resulting in mild foraminal narrowing without central stenosis. L3-L4: There is a diffuse disc bulge and moderate facet arthropathy with subarticular/foraminal disc protrusions resulting in mild moderate bilateral foraminal narrowing. L2-L3: There is a broad-based disc protrusion and ehun-xr-cywmutjd facet arthropathy resulting in moderate bilateral foraminal narrowing without central stenosis. L1-L2: There is a mild disc bulge and mild foraminal narrowing. IMPRESSION: 1. There appear to be 6 lumbar-type vertebral bodies being termed L1 through L6 for the purposes of this dictation. 2. Chronic compression deformities involve L1, L2 and L4 with prior vertebroplasty at these levels. No acute fracture is identified in the lumbar spine. 3. There is anterolisthesis of L5 on L6 with severe degenerative disc disease and severe facet arthropathy with a broad-based disc protrusion. There is tdtyvqrm-sr-rptejf bilateral foraminal narrowing and mild central narrowing at the L5-L6 level. 4. Additional foraminal narrowing otherwise as described above. TATE/elia Workstation ID: [id number] Dictated by: BEHZAD HURST on WedOct 01, 2023 1:27:44 PM EST Transcribed by: MORENO MCDANIEL on WedOct 01, 2023 2:24:47 PM EST Finalized by: BEHZAD HURST on WedOct 01, 2023 2:37:41 PM EST Normal [facility] Comment on above: Order Comment: Injur y/Trauma or Illness?:Injury/Trauma How long have you had these symptoms (acute/chronic)?:Acute Reason for exam?:back pain following fall 2 days ago: mri conditional pacemaker Type of Exam?:Unknown Mechanism of injury?:fall MR THORACIC SPINE WITHOUT CO NTRASTon 09-30-2023 MR THORACIC SPINE WITHOUT CONTRAST EXAMINATION: MR THORACIC SPINE WITHOUT CONTRAST HISTORY: ORDERING SYSTEM PROVIDED HISTORY: new thoracic fracture, TECHNOLOGIST PROVIDED HISTORY: Injury/Trauma Reason for exam: back pain following fall 2 days ago: mri conditional pacemaker Encounter Type: Unknown Mechanism of injury: fall ORDERING SYSTEM PROVIDED DIAGNOSIS CODES: COMPARISON: Chest, abdomen and pelvis CT from 09/30/2023 and lumbar spine MRI from 06/29/2023. TECHNIQUE: Multiplanar and multisequence imaging of the thoracic spine was performed without contrast. FINDINGS: There is a moderate acute superior endplate compression fracture involving the T8 vertebral body when counting from above. If counting from below it should be assumed that there are 6 lumbar type vertebral bodies. There is moderate loss of vertebral body height and concavity of superior endplate of T8 with bone marrow edema throughout the T8 vertebral body extending into the pedicles. There has been prior vertebroplasty at the T12 and L1 levels with a moderate chronic superior endplate compression deformity at L1. There is also a chronic inferior endplate compression deformity at L2 with changes of prior vertebroplasty at L2. There is a mild chronic superior endplate compression deformity involving the T2 vertebral body as well. No acute abnormality is identified involving visualized intrapelvic or intraabdominal structures. The visualized aorta is normal in diameter. No cord signal abnormality is identified in the thoracic cord. There is a small broad-based disc protrusion at T6-T7 and mild disc bulge at T7-T8 and T8-T9. There is a small broad-based disc protrusion at T10-T11 and to lesser extent at T9-T10. Ldhe-qk-leyjsqci facet arthropathy is evident. There is no central or foraminal stenosis. IMPRESSION: 1. Numbering for this study is from above. If numbering from below, there appear to be 6 lumbar type vertebral bodies. 2. Using this numbering, there is a moderate acute superior endplate compression fracture involving the T8 vertebral body with bone marrow edema throughout the T8 vertebral body extending into the pedicles. This was described at the T7 level on the prior CT with numbering from below assuming 5 lumbar type vertebral bodies 3. Prior vertebroplasty at T12, L1 and L2 with chronic compression deformities at L1 and L2. There is also a mild chronic superior endplate compression deformity at T2. 4. There are broad-based disc protrusions and hybb-ja-cmmgbebc facet arthropathy as described above. No central or foraminal stenosis is identified. TATE/kaley Workstation ID: [id number] Dictated by: BEHZAD HURST on WedOct 01, 2023 1:21:17 PM EST Transcribed by: ERIC ARNOLD on WedOct 01, 2023 2:23:28 PM EST Finalized by: BEHZAD HURST on WedOct 01, 2023 2:38:00 PM EST Normal [facility] Comment on above: Order Comment: Injur y/Trauma or Illness?:Injury/Trauma How long have you had these symptoms (acute/chronic)?:Acute Reason for exam?:back pain following fall 2 days ago: mri conditional pacemaker Type of Exam?:Unknown Mechanism of injury?:fall XR CHEST PA/APon 09-30-2023 XR CHEST PA/AP EXAMINATION: XR CHEST PA/AP 09/30/2023 12:37 PM HISTORY: ORDERING SYSTEM PROVIDED HISTORY: syncope, TECHNOLOGIST PROVIDED HISTORY: Injury/Trauma Reason for exam: FALL Cancer History: u Surgery, RadiationHistory: u Encounter Type: Initial Mechanism of injury: FALL ORDERING SYSTEM PROVIDED DIAGNOSIS CODES: COMPARISON: 07/05/2023. FINDINGS: Cardiomediastinal silhouette is normal. The lungs are clear. There is a transvenous pacing device in satisfactory and stable position. There is interstitial thickening. Bones are osteopenic and there are degenerative changes. IMPRESSION: No acute process identified. MA/wellington Workstation ID: [id number] Dictated by: HENNA ACEVEDO on WedSep 30, 2023 12:40:33 PM EST Transcribed by: TUNG EPPS on [facility] Sep 30, 2023 1:08:27 PM EST Finalized by: HENNA ACEVEDO on [facility] Oct 02, 2023 11:54:06 AM EST [facility] Comment on above: Order Comment: Injur y/Trauma or Illness?:Injury/Trauma How long have you had these symptoms (acute/chronic)?:Acute Reason for exam?:L-1/ L-3 KYPHOPLASTY Type of Exam?:Subsequent/Follow-up Mechanism of injury?:FALL Fluoro time in minutes:6.43 Fluoro dose in mGy?:557.2 XR ELBOW LEFT 3+ VIEWS (KANU DARD)on 09-30-2023 XR ELBOW LEFT 3+ VIEWS (STANDARD) EXAMINATION: XR ELBOW LEFT 3+ VIEWS (STANDARD); XR FOREARM LEFT 2 VIEWS 09/30/2023 12:37 pm HISTORY: ORDERING SYSTEM PROVIDED HISTORY: pain s/p fall, TECHNOLOGIST PROVIDED HISTORY: Injury/Trauma Reason for exam: FALL Cancer History: u Surgery, RadiationHistory: u Encounter Type: Initial Mechanism of injury: LEFT ELBOW PAIN ORDERING SYSTEM PROVIDED DIAGNOSIS CODES: COMPARISON: None. FINDINGS: LEFT ELBOW: The bones are mildly demineralized and there are mild degenerative changes. There is exostosis of the proximal radius. No fracture or dislocation is seen. No joint effusion. LEFT FOREARM: No fracture, dislocation, osseous or soft tissue abnormalities identified. IMPRESSION: No acute process. Mild degenerative changes. RACHEL/reji Workstation ID: [id number] Dictated by: HENNA ACEVEDO on [facility] Sep 30, 2023 12:45:19 PM EST Transcribed by: EMELINA HAWLEY on [facility] Sep 30, 2023 1:12:29 PM EST Finalized by: HENNA ACEVEDO on [facility] Oct 02, 2023 11:53:52 AM EST [facility] Comment on above: Order Comment: Injur y/Trauma or Illness?:Injury/Trauma How long have you had these symptoms (acute/chronic)?:Acute Reason for exam?:L-1/ L-3 KYPHOPLASTY Type of Exam?:Subsequent/Follow-up Mechanism of injury?:FALL Fluoro time in minutes:6.43 Fluoro dose in mGy?:557.2 XR FOREARM LEFT 2 VIEWSon XR FOREARM LEFT 2 VIEWS EXAMINATION: XR ELBOW LEFT 3+ VIEWS (STANDARD); XR FOREARM LEFT 2 VIEWS 09/30/2023 12:37 pm HISTORY: ORDERING SYSTEM PROVIDED HISTORY: pain s/p fall, TECHNOLOGIST PROVIDED HISTORY: Injury/Trauma Reason for exam: FALL Cancer History: u Surgery, RadiationHistory: u Encounter Type: Initial Mechanism of injury: LEFT ELBOW PAIN ORDERING SYSTEM PROVIDED DIAGNOSIS CODES: COMPARISON: None. FINDINGS: LEFT ELBOW: The bones are mildly demineralized and there are mild degenerative changes. There is exostosis of the proximal radius. No fracture or dislocation is seen. No joint effusion. LEFT FOREARM: No fracture, dislocation, osseous or soft tissue abnormalities identified. IMPRESSION: No acute process. Mild degenerative changes. [employer]/DocuSpeak Workstation ID: [id number] Dictated by: HENNA ACEVEDO on [facility] Sep 30, 2023 12:45:19 PM EST Transcribed by: EMELINA HAWLEY on [facility] Sep 30, 2023 1:12:29 PM EST Finalized by: HENNA ACEVEDO on [facility] Oct 02, 2023 11:53:52 AM EST Normal [facility] Comment on above: Order Comment: Injur y/Trauma or Illness?:Injury/Trauma How long have you had these symptoms (acute/chronic)?:Acute Reason for exam?:LEFT ARM PAIN History of cancer?:u Surgeries, chemotherapy, or radiation?:u Type of Exam?:Initial Mechanism of injury?:fall XR TIBIA FIBULA LEFT 2 VIEWS on 09-30-2023 XR TIBIA FIBULA LEFT 2 VIEWS EXAMINATION: XR TIBIA FIBULA LEFT 2 VIEWS 09/30/2023 12:37 pm HISTORY: ORDERING SYSTEM PROVIDED HISTORY: recurrent syncope, anterior chest and abdominal pain, left hurley pain, fall, TECHNOLOGIST PROVIDED HISTORY: Injury/Trauma Reason for exam: left hurley pain fall, left lower leg abrasion Cancer History: u Surgery, RadiationHistory: u Encounter Type: Initial Mechanism of injury: fall ORDERING SYSTEM PROVIDED DIAGNOSIS CODES: COMPARISON: 04/24/2020. FINDINGS: No fracture or dislocation is seen. The bones are mildly demineralized. There is anterior soft tissue swelling mid hurley. IMPRESSION: No acute fracture. There is anterior soft tissue swelling. Mild osteopenia and degenerative changes. Greene[employer]/DocuSpeak Workstation ID: [id number] Dictated by: HENNA ACEVEDO on [facility] Sep 30, 2023 12:44:57 PM EST Transcribed by: EMELINA HAWLEY on [facility] Sep 30, 2023 1:13:47 PM EST Finalized by: HENNA ACEVEDO on Sat Oct 02, 2023 11:53:47 AM EST Normal [facility] Comment on above: Order Comment: Injur y/Trauma or Illness?:Injury/Trauma How long have you had these symptoms (acute/chronic)?:Acute Reason for exam?:left hurley pain fall, left lower leg abrasion History of cancer?:u Surgeries, chemotherapy, or radiation?:u Type of Exam?:Initial Mechanism of injury?:fall NM MYOCARDIAL PERFUSION SING LE - STRESS ONLYon 08-25-2023 NM MYOCARDIAL PERFUSION SINGLE - STRESS ONLY Patient Info Name: KRISTEN MANN Age: 73 years : 1950 Gender: Female Ht: 168 cm Wt: 83 kg BSA: 1.99 m2 HR: 109 bpm BP: 132 / 79 mmHg Heart Rhythm: Sinus Rhythm Exam Date: 08/25/2023 9:00 AM Patient Status: Outpatient Any Known Allergies: MSo4, PCN, Sulfa Saloon Keeper: Yesy Munoz, RT(N), FRANK, KAY, Emmanuel Munoz RT(N), NCT Exam Type: NM MYOCARDIAL PERFUSION SINGLE - STRESS ONLY Study Info Indications - ECG abnormal, intermediate CAD risk Nuclear Physician: Gisele Church MD Referring Physician: DAVE; [id number] Primary Nurse: Janine Hodges RN Supervising Stress Physician: Gisele Church MD BMI: 29.41 kg/m2 Summary 1. Normal pharmacologic nuclear SPECT myocardial perfusion study. 2. Stress only imaging was performed per lab protocol. 3. No diagnostic ECG changes with regadenoson. 4. Perfusion imaging demonstrates normal myocardial perfusion in all segments on stress imaging. No rest imaging performed. 5. Gated imaging demonstrates normal left ventricular size, wall motion, and systolic function with post-stress LVEF 73. History/Risk Factors Hypertension: No Dyslipidemia: Yes Chronic Lung Disease: Yes Diabetes Mellitus: Yes Tobacco Use: Never Cerebrovascular Disease: TIA History/Risk Factors Patient off home medications prior to study. Patient has a history of Empty. Caffeine in Last 24 Hours: No Seizure Disorder: No Prior Interventions Pacemaker: Yes PCI: No CABG: No LVAD: No Radiopharmaceutical: Tc-99m Tetrofosmin Administration Site: IV - left antecubital Administered By: Yesy Munoz RT(N), FRANK, KAY Camera Used: [employer] D-SPECT Image Protocol Protocol: Selective Stress Only Stress Radiopharmaceutical Dose: 6.5 mCi Imaging Date AND Time: 08/25/2023 10:40 AM Patient Position: upright and supine Injection to Imaging Time: 60 min Total Radiation Dose: 1.4 mSv Injection Date AND Time: 08/25/2023 9:30 AM Procedure(s): Gated SPECT images acquired upright and supine post Tetrofosmin injection at peak stress. Resting images were not required. [facility] [employer] application was utilized for processing and interpretation. SPECT Results Perfusion Findings The stress nuclear myocardial perfusion imaging was normal. No resting imaging was performed. SPECT images demonstrate homogeneous tracer distribution throughout the myocardium. Normal left ventricular size. Summed Stress Score: 0 Functional Results - Name Value Normal - Stress - Stress LV Ejection Fraction 73 % 55-70 Stress LV End Diastolic Volume Index 21.30 ml/m2 Stress LV End Systolic Volume Index 8.80 ml/m2 Stress LV End Diastolic Volume 33.00 ml Stress LV End Systolic Volume 9.00 ml Nuclear Stress Myocardial Mass 89.00 g Functional Findings Overall left ventricular systolic function was normal without regional wall motion abnormalities. Gated SPECT imaging reveals normal myocardial wall thickening. Post stress left ventricular ejection fraction is normal, 73 %. Left ventricular cavity size is normal. Report Signatures MPI SPECT Finalized by Patricia Dowling MD on 08/25/2023 11:35 AM Stress Finalized by Patricia Dowling MD on 08/25/2023 11:35 AM Stress ECG Details Protocol: LEXISCAN Rest HR: 109 bpm Peak HR: 121 bpm Rest Sys BP: 132 mmHg Peak Sys BP: 141 mmHg Max Pred HR: 149 bpm % Max Pred HR: 81 % Target HR: 127 bpm Max RPP: 17,061 bpm*mmHg Target HR Summary: approprite response BP Response: Normal blood pressure response Termination Reason: Fatigue Cardiac Symptoms: No chest pain Total Time: 5 min : 0 sec Rest Samson BP: 79 mmHg Peak Samson BP: 71 mmHg Total Dose: 0.4 mg Resting ECG Sinus tachycardia. Stress ECG No diagnostic ECG changes with regadenoson. Arrhythmias Occasional PVCs. Stress Summary No diagnostic ECG changes with regadenoson. Dictated by: PATRICIA DOWLING on WedAug 25, 2023 11:38:14 AM EST Transcribed by: PATRICIA DOWLING on WedAug 25, 2023 11:38:14 AM EST Finalized by: PATRICIA DOWLING on WedAug 25, 2023 11:38:14 AM EST Normal [facility] Comment on above: Order Comment: [facility] location please Injury/Trauma or Illness?:Illness/Other How long have you had these symptoms (acute/chronic)?:Unknown Reason for exam?:bradycardia, syncope, abn ekg Type of Exam?:Unknown Additional signs and symptoms?:bradycardia, syncope, abn ekg US DUPLEX VENOUS LEGS BARONATE JAZMYNEjasmeet 07-09-2023 US DUPLEX VENOUS LEGS BILATERAL Patient Info Name: KRISTEN MANN Age: 73 years : 1950 Gender: Female Exam Date: 07/09/2023 10:08 AM Patient Status: Inpatient Dining Room Helper: Cherie Rasheed RVT, RVS Referring Physician: [id number] José; Indications M79.606 - Pain in leg, unspecified Procedure Description 26222 Duplex examination using B-mode, color and spectral Doppler of extremity veins including responses to compression and other maneuvers; complete bilateral study. Conclusions * No evidence of deep or superficial vein thrombosis in the lower extremities bilaterally. Risk Factors Patient has a history of hyperlipidemia and TIA. . Report Signatures Finalized by Charlie Daly MD on 07/09/2023 12:11 PM External Iliac: - External Iliac: Normal External Iliac: Normal External Iliac: - External Iliac: Normal External Iliac: Normal Common Femoral: Complete Common Femoral: Normal Common Femoral: Normal Common Femoral: Complete Common Femoral: Normal Common Femoral: Normal Femoral: Complete Femoral: Complete Femoral: Normal Femoral: Normal Femoral: Normal Femoral: Normal Peroneal: Complete Peroneal: Complete Peroneal: - Peroneal: - Peroneal: - Peroneal: - Profunda Femoral: Complete Profunda Femoral: - Profunda Femoral: Complete Profunda Femoral: - Profunda Femoral: - Popliteal: Complete Popliteal: Complete Popliteal: Normal Popliteal: Normal Popliteal: Normal Popliteal: Normal Posterior Tibial: Complete Posterior Tibial: Complete Posterior Tibial: - Posterior Tibial: - Posterior Tibial: - Posterior Tibial: - Gastrocnemius: - Gastrocnemius: - Gastrocnemius: - Gastrocnemius: - Gastrocnemius: - Gastrocnemius: - Soleal: - Soleal: - Soleal: - Soleal: - Soleal: - Soleal: - Great Saphenous: Complete Great Saphenous: Complete Great Saphenous: Normal Great Saphenous: Normal Great Saphenous: Normal Great Saphenous: Normal Small Saphenous: - Small Saphenous: - Small Saphenous: - Small Saphenous: - Small Saphenous: - Small Saphenous: - - Normal [facility] XR OR L-SPINE 2-3 VIEWSon XR OR L-SPINE 2-3 VIEWS EXAMINATION: XR OR L-SPINE 2-3 VIEWS HISTORY: ORDERING SYSTEM PROVIDED HISTORY: L 2 KYPHOPLASTY, TECHNOLOGIST PROVIDED HISTORY: Injury/Trauma Reason for exam: L-1/ L-3 KYPHOPLASTY Encounter Type: Subsequent/Follow-up Mechanism of injury: FALL Fluoro dose in mGy: 557.2 ORDERING SYSTEM PROVIDED DIAGNOSIS CODES: R42 Dizzy spells N17.9 Acute renal failure, unspecified acute renal failure type ([facility]) R10.84 Generalized abdominal pain R11.2 Nausea and vomiting, unspecified vomiting type R73.9 Hyperglycemia S32.020A Closed compression fracture of L2 vertebra, initial encounter ([facility]) S32.040A Closed compression fracture of L4 vertebra, initial encounter ([facility]) R42 Dizziness COMPARISON: 07/06/2023 FINDINGS: Fluoroscopic spot images are acquired during vertebroplasty in progress. IMPRESSION: 1. Intraoperative fluoroscopy. See operative report for procedure description. 2. Radhar mGy: Fluoro dose in Radhar mGy: 557.2 Workstation ID: [id number] Dictated by: KALEE HAWLEY on WedJul 08, 2023 12:37:01 PM EDT Transcribed by: KALEE HAWLEY on WedJul 08, 2023 12:37:01 PM EDT Finalized by: KALEE HAWLEY on WedJul 08, 2023 12:37:01 PM EDT [facility] Comment on above: Order Comment: Injur y/Trauma or Illness?:Injury/Trauma How long have you had these symptoms (acute/chronic)?:Acute Reason for exam?:L-1/ L-3 KYPHOPLASTY Type of Exam?:Subsequent/Follow-up Mechanism of injury?:FALL Fluoro time in minutes:6.43 Fluoro dose in mGy?:557.2 CT LUMBAR SPINE WITHOUT CONT [facility] 07-06-2023 CT LUMBAR SPINE WITHOUT CONTRAST EXAMINATION: CT LUMBAR SPINE WITHOUT CONTRAST HISTORY: ORDERING SYSTEM PROVIDED HISTORY: Lumbar fractures, prior kyphoplasty, for pre-op planning, TECHNOLOGIST PROVIDED HISTORY: Illness/Other Reason for exam: Lumbar fractures, prior kyphoplasty, for pre-op planning Encounter Type: Initial Additional signs and symptoms: . ORDERING SYSTEM PROVIDED DIAGNOSIS CODES: R42 Dizzy spells N17.9 Acute renal failure, unspecified acute renal failure type ([facility]) R10.84 Generalized abdominal pain R11.2 Nausea and vomiting, unspecified vomiting type R73.9 Hyperglycemia S32.020A Closed compression fracture of L2 vertebra, initial encounter ([facility]) S32.040A Closed compression fracture of L4 vertebra, initial encounter ([facility]) R42 Dizziness COMPARISON: None TECHNIQUE: CT examination of the lumbar spine without IV contrast. Coronal and sagittal reformations were performed. Dose reduction techniques were achieved by using automated exposure control and/or adjustment of mA and/or kV according to patient size and/or use of iterative reconstruction technique. FINDINGS: Vertebroplasty at the T12 vertebral body. There is anterior vertebral body height loss at T12 measuring approximately 45%. Compression fracture at L1 with mild central vertebral body height loss. There is associated sclerosis of the L1 vertebral body. Compression fracture at L3 with central vertebral body height loss measuring approximately 40%. There is associated sclerosis of the L3 vertebral body. Schmorl's node of the superior endplate of L5. Moderate to advanced facet joint arthropathy at L4-L5 and L5-S1. No significant osseous neural foraminal narrowing of the lumbar spine. Anterolisthesis of L4 on L5 measuring 0.6 cm. Moderate degeneration of the bilateral sacroiliac joints. IMPRESSION: 1. Multilevel compression fractures seen at T12, L1 and L3. Large Schmorl's node at the superior endplate L5. 2. Anterolisthesis of L4 on L5 measuring approximately 0.6 cm from facet joint arthropathy. 3. Moderate to advanced facet arthropathy at L4-5 and L5-S1. Workstation ID: [id number] Dictated by: CIRILO ENRIQUEZ on WedJul 06, 2023 2:44:02 PM EDT Transcribed by: CIRILO ENRIQUEZ on WedJul 06, 2023 2:44:02 PM EDT Finalized by: CIRILO ENRIQUEZ on WedJul 06, 2023 2:44:02 PM EDT Normal [facility] Comment on above: Order Comment: Injur y/Trauma or Illness?:Injury/Trauma How long have you had these symptoms (acute/chronic)?:Acute Reason for exam?:LEFT ARM PAIN History of cancer?:u Surgeries, chemotherapy, or radiation?:u Type of Exam?:Initial Mechanism of injury?:fall MR CERVICAL SPINE WITHOUT CO NTRASTon 07-06-2023 MR CERVICAL SPINE WITHOUT CONTRAST EXAMINATION: MR CERVICAL SPINE WITHOUT CONTRAST HISTORY: Chronic neck pain. COMPARISON: None. Correlation with CT angiography of the head and neck February 09, 2018. TECHNIQUE: MR cervical spine without contrast. FINDINGS: Mildly motion degraded examination. There is normal cervical lordosis. No spondylolisthesis. There is a mild chronic compression deformity along the C7 superior endplate and there are mild chronic compression deformities along the T2 superior and inferior endplates, unchanged from prior CTA accounting for differences in modality. There is no acute fracture. The odontoid is intact. There is no suspicious osseous lesion. No prevertebral soft tissue swelling. The spinal cord is normal in size without spinal cord signal abnormality. The visualized structures of the posterior fossa are unremarkable. Findings by level: C2-C3: No spinal canal or neural foraminal stenosis. C3-C4: Small broad-based disc bulge and uncovertebral joint hypertrophy. No spinal canal stenosis. Mild bilateral neural foraminal stenosis. C4-C5: Small broad-based disc bulge and uncovertebral joint hypertrophy. No spinal canal stenosis. Mild bilateral neural foraminal stenosis. C5-C6: Small broad-based disc bulge. No spinal canal or neural foraminal stenosis. C6-C7: Broad-based disc bulge that narrows the ventral thecal sac. Mild facet arthrosis. Mild spinal canal stenosis. Mild left neural foraminal stenosis. C7-T1: No spinal canal or neural foraminal stenosis. IMPRESSION: 1. No acute abnormality of the cervical spine. 2. Mild multilevel degenerative changes of the cervical spine as detailed above without high-grade spinal canal or neural foraminal stenosis as detailed above. Workstation ID: [id number] Dictated by: CAPO HAYDEN on WedJul 07, 2023 2:02:21 PM EDT Transcribed by: CAPO HAYDEN on WedJul 07, 2023 2:02:21 PM EDT Finalized by: CAPO HAYDEN on WedJul 07, 2023 2:02:21 PM EDT Normal [facility] Comment on above: Order Comment: Injur y/Trauma or Illness?:Illness/Other How long have you had these symptoms (acute/chronic)?:Unknown Reason for exam?:neck pain for years: fall in 09/2022: no recent injury: Type of Exam?:Unknown Additional signs and symptoms?:n CT ABDOMEN PELVIS WITHOUT CO [facility] 07-05-2023 CT ABDOMEN PELVIS WITHOUT CONTRAST EXAMINATION: CT ABDOMEN PELVIS WITHOUT CONTRAST HISTORY: Injury/Trauma or Illness?:Illness/Other How long have you had these symptoms (acute/chronic)?:AcuteG eneralized abdominal pain since yesterday. No bowel movements, now with nausea vomiting. COMPARISON: Outside CT dated 10/08/2022 TECHNIQUE: Contiguous axial images were obtained from the lung bases to the pelvic floor without intravenous or oral contrast. Coronal and sagittal reformations are provided. FINDINGS: LOWER LUNGS: Clear. LIVER/BILIARY TREE: No discrete lesion. No intrahepatic ductal dilatation. GALLBLADDER: Status post cholecystectomy.. CBD: Normal CBD. SPLEEN: Normal in size.No discrete lesion. PANCREAS: No appreciable peripancreatic fluid. No pancreatic ductal dilatation. No discrete lesion. ADRENALS: Normal. KIDNEYS: No discrete mass.No hydronephrosis.No radiopaque calculus. STOMACH AND BOWEL: There is a small hiatal hernia. Decompressed stomach. No dilated bowel loops.No bowel wall thickening. APPENDIX: Not visualized. PERITONEAL CAVITY: No fluid. No fat stranding. ABDOMINAL WALL: No subcutaneous stranding. No subcutaneous fluid collection. LYMPH NODES: No mesenteric or retroperitoneal lymphadenopathy by CT criteria. ABDOMINAL AORTA: No aneurysm. PELVIS: No acute abnormality. MUSCULOSKELETAL: Status post T12 and L1 vertebroplasty. There are new [id number] L2 inferior endplate and moderate L4 superior endplate compression fracture. There is grade 1 anterolisthesis at L5-S1 without spondylolysis IMPRESSION: 1. No acute abnormality in the abdomen or pelvis. 2. Acute appearing [id number] L2 and L4 vertebral body compression fractures without significant bony retropulsion. Workstation ID: [id number] Dictated by: RIGO SÁNCHEZ on WedJul 05, 2023 7:28:16 PM EDT Transcribed by: RIGO SÁNCHEZ on WedJul 05, 2023 7:28:16 PM EDT Finalized by: RIGO SÁNCHEZ on WedJul 05, 2023 7:28:16 PM EDT Normal [facility] Comment on above: Order Comment: Injur y/Trauma or Illness?:Injury/Trauma How long have you had these symptoms (acute/chronic)?:Acute Reason for exam?:LEFT ARM PAIN History of cancer?:u Surgeries, chemotherapy, or radiation?:u Type of Exam?:Initial Mechanism of injury?:fall CT HEAD OR BRAIN WITHOUT CON TRASTon 07-05-2023 CT HEAD OR BRAIN WITHOUT CONTRAST EXAMINATION: CT head without intravenous contrast. HISTORY: Altered mental status. COMPARISON FILMS: 02/09/2018. TECHNIQUE: Axial images from the skull base to vertex without intravenous contrast. Dose reduction techniques were achieved by using automated exposure control and/or adjustment of mA and/or kV according to patient size and/or use of iterative reconstruction technique. FINDINGS: Generalized volume loss and mild periventricular lucency is consistent with age. The ventricles, cisterns and parenchyma are otherwise within normal limits. There is no mass effect, shift, hemorrhage, extraaxial collection, abnormal high or low density lesion or ventriculomegaly. The dean/white distinction is normal. The orbits and contents and paranasal sinuses are normal. There is no skull fracture. Visualized mastoid air cells are normal. CONCLUSION: Age-related volume loss and periventricular lucencies are within normal limits. There is no evidence of acute intracranial process. Workstation ID: [id number] Dictated by: MER MONTALVO on WedJul 05, 2023 7:55:24 PM EDT Transcribed by: MER MONTALVO on WedJul 05, 2023 7:55:24 PM EDT Finalized by: EMR MONTALVO on WedJul 05, 2023 7:55:24 PM EDT Normal [facility] Comment on above: Order Comment: Injur y/Trauma or Illness?:Injury/Trauma How long have you had these symptoms (acute/chronic)?:Acute Reason for exam?:LEFT ARM PAIN History of cancer?:u Surgeries, chemotherapy, or radiation?:u Type of Exam?:Initial Mechanism of injury?:fall XR CHEST AP/PA AND LATon XR CHEST AP/PA AND LAT EXAMINATION: XR CHEST AP/PA AND LAT 07/05/2023 9:14 pm HISTORY: ORDERING SYSTEM PROVIDED HISTORY: Leukocytosis, back pain, N/V w/o identified source, TECHNOLOGIST PROVIDED HISTORY: Injury/Trauma Reason for exam: Leukocytosis, back pain, N/V w/o identified source Cancer History: u Surgery, RadiationHistory: u Encounter Type: Initial Mechanism of injury: . 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 The heart is normal in size. No pulmonary edema is seen. The lungs are clear. No pneumothorax is seen. Diffuse osteopenia. Cement from prior vertebroplasties or kyphoplasties is noted at the approximately T12 and L1 levels. New age-indeterminate compression fracture is noted in the approximately T8 vertebral body. IMPRESSION: 1. No acute cardiopulmonary abnormality. 2. Diffuse osteopenia. New age-indeterminate compression fracture in the approximately T8 vertebral body. Workstation ID: [id number] Dictated by: CHANDLER GAONA on WedJul 05, 2023 10:14:44 PM EDT Transcribed by: CHANDLER GAONA on WedJul 05, 2023 10:14:44 PM EDT Finalized by: CHANDLER GAONA on WedJul 05, 2023 10:14:44 PM EDT [facility] Comment on above: Order Comment: Injur y/Trauma or Illness?:Injury/Trauma How long have you had these symptoms (acute/chronic)?:Acute Reason for exam?:L-1/ L-3 KYPHOPLASTY Type of Exam?:Subsequent/Follow-up Mechanism of injury?:FALL Fluoro time in minutes:6.43 Fluoro dose in mGy?:557.2 US DUPLEX VENOUS LEG LEFTon 05-31-2023 US DUPLEX VENOUS LEG LEFT Patient Info Name: KRISTEN MANN Age: 73 years : 1950 Gender: Female Exam Date: 05/31/2023 2:22 PM Patient Status: Outpatient Dining Room Helper: Pat Uribe BS, RDMS, RVT Referring Physician: BROOKLYN LYNN ; Indications M79.662 - Pain in left lower leg - left calf pain and edema . RO DVT Procedure Description 96814 Duplex examination using B-mode, color and spectral Doppler of extremity veins including responses to compression and other maneuvers; unilateral or limited study. Conclusions * No evidence of deep or superficial vein thrombosis in the left lower extremity. . Report Signatures Finalized by KRYSTLE Norris DO on 05/31/2023 03:59 PM External Iliac: - External Iliac: - External Iliac: - External Iliac: - External Iliac: Normal External Iliac: Normal Common Femoral: Complete Common Femoral: Normal Common Femoral: Normal Common Femoral: Complete Common Femoral: Normal Common Femoral: Normal Femoral: - Femoral: Complete Femoral: - Femoral: Normal Femoral: - Femoral: Normal Peroneal: - Peroneal: Complete Peroneal: - Peroneal: - Peroneal: - Peroneal: - Profunda Femoral: - Profunda Femoral: - Profunda Femoral: Complete Profunda Femoral: - Profunda Femoral: - Popliteal: - Popliteal: Complete Popliteal: - Popliteal: Normal Popliteal: - Popliteal: Normal Posterior Tibial: - Posterior Tibial: Complete Posterior Tibial: - Posterior Tibial: - Posterior Tibial: - Posterior Tibial: - Gastrocnemius: - Gastrocnemius: - Gastrocnemius: - Gastrocnemius: - Gastrocnemius: - Gastrocnemius: - Soleal: - Soleal: - Soleal: - Soleal: - Soleal: - Soleal: - Great Saphenous: - Great Saphenous: Complete Great Saphenous: - Great Saphenous: Normal Great Saphenous: - Great Saphenous: Normal Small Saphenous: - Small Saphenous: - Small Saphenous: - Small Saphenous: - Small Saphenous: - Small Saphenous: - - Normal [facility] DUPLEX VENOUS LEG LEFT Patient Info Name: KRISTEN MANN Age: 73 years : 1950 Gender: Female Exam Date: 05/31/2023 2:22 PM Patient Status: Outpatient Dining Room Helper: Pat Uribe BS, RDMS, RVT Referring Physician: BROOKLYN LYNN ; Indications M79.662 - Pain in left lower leg - left calf pain and edema . RO DVT Procedure Description 93286 Duplex examination using B-mode, color and spectral Doppler of extremity veins including responses to compression and other maneuvers; unilateral or limited study. Conclusions * No evidence of deep or superficial vein thrombosis in the left lower extremity. . Report Signatures Finalized by KRYSTLE Norris DO on 05/31/2023 03:59 PM External Iliac: - External Iliac: - External Iliac: - External Iliac: - External Iliac: Normal External Iliac: Normal Common Femoral: Complete Common Femoral: Normal Common Femoral: Normal Common Femoral: Complete Common Femoral: Normal Common Femoral: Normal Femoral: - Femoral: Complete Femoral: - Femoral: Normal Femoral: - Femoral: Normal Peroneal: - Peroneal: Complete Peroneal: - Peroneal: - Peroneal: - Peroneal: - Profunda Femoral: - Profunda Femoral: - Profunda Femoral: Complete Profunda Femoral: - Profunda Femoral: - Popliteal: - Popliteal: Complete Popliteal: - Popliteal: Normal Popliteal: - Popliteal: Normal Posterior Tibial: - Posterior Tibial: Complete Posterior Tibial: - Posterior Tibial: - Posterior Tibial: - Posterior Tibial: - Gastrocnemius: - Gastrocnemius: - Gastrocnemius: - Gastrocnemius: - Gastrocnemius: - Gastrocnemius: - Soleal: - Soleal: - Soleal: - Soleal: - Soleal: - Soleal: - Great Saphenous: - Great Saphenous: Complete Great Saphenous: - Great Saphenous: Normal Great Saphenous: - Great Saphenous: Normal Small Saphenous: - Small Saphenous: - Small Saphenous: - Small Saphenous: - Small Saphenous: - Small Saphenous: - - Dictated by: SUKHJINDER DIA III on WedMay 31, 2023 3:59:42 PM EDT Transcribed by: SUKHJINDER DIA III on WedMay 31, 2023 3:59:42 PM EDT Finalized by: SUKHJINDER DIA III on WedMay 31, 2023 3:59:42 PM EDT Normal [facility] No Panel Informationon 05-28 Radiology Study observation (narrative) [facility] XR LUMBAR SPINE STANDARD WIT H FLEX/EXT 4+ VIEWSon 05-28-2023 XR LUMBAR SPINE STANDARD WITH FLEX/EXT 4+ VIEWS EXAMINATION: XR LUMBAR SPINE STANDARD WITH FLEX/EXT 4+ VIEWS HISTORY: ORDERING SYSTEM PROVIDED HISTORY: Increased thoraco- pain in setitng of previous fractures and osteoporosis, TECHNOLOGIST PROVIDED HISTORY: Illness/Other Reason for exam: Increased lumbar pain in setitng of previous fractures and osteoporosis Cancer History: u Surgery, RadiationHistory: u Encounter Type: Initial Additional signs and symptoms: ORDERING SYSTEM PROVIDED DIAGNOSIS CODES: M54.9 Back pain, unspecified back location, unspecified back pain laterality, unspecified chronicity COMPARISON: CT lumbar spine: 10/08/2022 FINDINGS: Three views of the lumbar spine. There is 9 mm of degenerative anterolisthesis at L4-5. There is moderate to severe disc space narrowing at L4-5. There is a prominent Schmorl's node defect in the superior endplate of L5. There is slight anterior wedging of L5. Moderate to severe anterior compression deformity of L3 is new. Moderate anterior compression deformity about 1 is new. There is facet arthrosis greatest at the lower levels. Arterial calcifications are present. There is no abnormal movement with flexion or extension. There is moderate to severe anterior compression deformity of T12 with vertebroplasty cement. There also is vertebroplasty cement in the T11 vertebral body. IMPRESSION: 1. Compression deformities of L1 and L3 are new from 10/08/2022. 2. Grade 1/2 degenerative spondylolisthesis at L4-5. 3. Previous vertebroplasty at T11 and T12. 4. No abnormal movement or instability with flexion or extension. Workstation ID: [id number] Dictated by: JORGE KAHN on WedMay 28, 2023 3:28:40 PM EDT Transcribed by: JORGE KAHN on WedMay 28, 2023 3:28:40 PM EDT Finalized by: JORGE KAHN on WedMay 28, 2023 3:28:40 PM EDT [facility] Comment on above: Order Comment: Injur y/Trauma or Illness?:Injury/Trauma How long have you had these symptoms (acute/chronic)?:Acute Reason for exam?:LEFT ARM PAIN History of cancer?:u Surgeries, chemotherapy, or radiation?:u Type of Exam?:Initial Mechanism of injury?:fall XR Lumbar Spine Standard wit h Flex/Ext 4+ Viewson 05-28-2023 1. Compression deformities of L1 and L3 are new from 10/08/2022. 2. Grade 1/2 degenerative spondylolisthesis at L4-5. 3. Previous vertebroplasty at T11 and T12. 4. No abnormal movement or instability with flexion or extension. Workstation ID: [id number] [facility] EXAMINATION: XR LUMBAR SPINE STANDARD WITH FLEX/EXT 4+ VIEWS HISTORY: ORDERING SYSTEM PROVIDED HISTORY: Increased thoraco- pain in setitng of previous fractures and osteoporosis, TECHNOLOGIST PROVIDED HISTORY: Illness/Other Reason for exam: Increased lumbar pain in setitng of previous fractures and osteoporosis Cancer History: u Surgery, RadiationHistory: u Encounter Type: Initial Additional signs and symptoms: ORDERING SYSTEM PROVIDED DIAGNOSIS CODES: M54.9 Back pain, unspecified back location, unspecified back pain laterality, unspecified chronicity COMPARISON: CT lumbar spine: 10/08/2022 FINDINGS: Three views of the lumbar spine. There is 9 mm of degenerative anterolisthesis at L4-5. There is moderate to severe disc space narrowing at L4-5. There is a prominent Schmorl's node defect in the superior endplate of L5. There is slight anterior wedging of L5. Moderate to severe anterior compression deformity of L3 is new. Moderate anterior compression deformity about 1 is new. There is facet arthrosis greatest at the lower levels. Arterial calcifications are present. There is no abnormal movement with flexion or extension. There is moderate to severe anterior compression deformity of T12 with vertebroplasty cement. There also is vertebroplasty cement in the T11 vertebral body. [facility] Jorge Kahn MD - 05/28/2023 EXAMINATION: XR LUMBAR SPINE STANDARD WITH FLEX/EXT 4+ VIEWS HISTORY: ORDERING SYSTEM PROVIDED HISTORY: Increased thoraco- pain in setitng of previous fractures and osteoporosis, TECHNOLOGIST PROVIDED HISTORY: Illness/Other Reason for exam: Increased lumbar pain in setitng of previous fractures and osteoporosis Cancer History: u Surgery, RadiationHistory: u Encounter Type: Initial Additional signs and symptoms: ORDERING SYSTEM PROVIDED DIAGNOSIS CODES: M54.9 Back pain, unspecified back location, unspecified back pain laterality, unspecified chronicity COMPARISON: CT lumbar spine: 10/08/2022 FINDINGS: Three views of the lumbar spine. There is 9 mm of degenerative anterolisthesis at L4-5. There is moderate to severe disc space narrowing at L4-5. There is a prominent Schmorl's node defect in the superior endplate of L5. There is slight anterior wedging of L5. Moderate to severe anterior compression deformity of L3 is new. Moderate anterior compression deformity about 1 is new. There is facet arthrosis greatest at the lower levels. Arterial calcifications are present. There is no abnormal movement with flexion or extension. There is moderate to severe anterior compression deformity of T12 with vertebroplasty cement. There also is vertebroplasty cement in the T11 vertebral body. IMPRESSION: 1. Compression deformities of L1 and L3 are new from 10/08/2022. 2. Grade 1/2 degenerative spondylolisthesis at L4-5. 3. Previous vertebroplasty at T11 and T12. 4. No abnormal movement or instability with flexion or extension. Workstation ID: [id number] [facility] XR Lumbar Spine Standard wit h Flex/Ext 4+ ViewsOrdered By: Jorge Kahn on 05-28-2023 [facility] Work Phone: XR THORACIC SPINE 3 VIEWS (S TANDARD)on 05-28-2023 XR THORACIC SPINE 3 VIEWS (STANDARD) EXAMINATION: XR THORACIC SPINE 3 VIEWS (STANDARD) 05/28/2023 3:05 pm HISTORY: ORDERING SYSTEM PROVIDED HISTORY: Increased thoracic pain in setitng of previous fractures and osteoporosis, TECHNOLOGIST PROVIDED HISTORY: Illness/Other Reason for exam: Increased thoracic pain in setting of previous fractures and osteoporosis Cancer History: u Surgery, RadiationHistory: u Encounter Type: Initial Additional signs and symptoms: ORDERING SYSTEM PROVIDED DIAGNOSIS CODES: M54.6 Acute thoracic back pain, unspecified back pain laterality COMPARISON: CT pulmonary arteries dated 12/30/2021 FINDINGS: Normal kyphotic curvature of the thoracic spine is seen. Prior vertebroplasty of T11 and T12 is seen. The vertebral bodies otherwise demonstrate grossly normal height and alignment. The paraspinal soft tissues appear unremarkable. IMPRESSION: No obvious radiographic evidence for acute fracture or traumatic malalignment. Prior vertebroplasty of T11 and T12 is seen. Workstation ID: [id number] Dictated by: CHOCO MULLINS on WedMay 28, 2023 3:50:17 PM EDT Transcribed by: CHOCO MULLINS on WedMay 28, 2023 3:50:17 PM EDT Finalized by: CHOCO MULLINS on WedMay 28, 2023 3:50:17 PM EDT Normal [facility] Comment on above: Order Comment: Injur y/Trauma or Illness?:Injury/Trauma How long have you had these symptoms (acute/chronic)?:Acute Reason for exam?:L-1/ L-3 KYPHOPLASTY Type of Exam?:Subsequent/Follow-up Mechanism of injury?:FALL Fluoro time in minutes:6.43 Fluoro dose in mGy?:557.2 XR Thoracic Spine 3 Views (S tandard)on 05-28-2023 No obvious radiographic evidence for acute fracture or traumatic malalignment. Prior vertebroplasty of T11 and T12 is seen. Workstation ID: [id number] [facility] EXAMINATION: XR THORACIC SPINE 3 VIEWS (STANDARD) 05/28/2023 3:05 pm HISTORY: ORDERING SYSTEM PROVIDED HISTORY: Increased thoracic pain in setitng of previous fractures and osteoporosis, TECHNOLOGIST PROVIDED HISTORY: Illness/Other Reason for exam: Increased thoracic pain in setting of previous fractures and osteoporosis Cancer History: u Surgery, RadiationHistory: u Encounter Type: Initial Additional signs and symptoms: ORDERING SYSTEM PROVIDED DIAGNOSIS CODES: M54.6 Acute thoracic back pain, unspecified back pain laterality COMPARISON: CT pulmonary arteries dated 12/30/2021 FINDINGS: Normal kyphotic curvature of the thoracic spine is seen. Prior vertebroplasty of T11 and T12 is seen. The vertebral bodies otherwise demonstrate grossly normal height and alignment. The paraspinal soft tissues appear unremarkable. Choco Rao MD - 05/28/2023 EXAMINATION: XR THORACIC SPINE 3 VIEWS (STANDARD) 05/28/2023 3:05 pm HISTORY: ORDERING SYSTEM PROVIDED HISTORY: Increased thoracic pain in setitng of previous fractures and osteoporosis, TECHNOLOGIST PROVIDED HISTORY: Illness/Other Reason for exam: Increased thoracic pain in setting of previous fractures and osteoporosis Cancer History: u Surgery, RadiationHistory: u Encounter Type: Initial Additional signs and symptoms: ORDERING SYSTEM PROVIDED DIAGNOSIS CODES: M54.6 Acute thoracic back pain, unspecified back pain laterality COMPARISON: CT pulmonary arteries dated 12/30/2021 FINDINGS: Normal kyphotic curvature of the thoracic spine is seen. Prior vertebroplasty of T11 and T12 is seen. The vertebral bodies otherwise demonstrate grossly normal height and alignment. The paraspinal soft tissues appear unremarkable. IMPRESSION: No obvious radiographic evidence for acute fracture or traumatic malalignment. Prior vertebroplasty of T11 and T12 is seen. Workstation ID: [id number] [facility] XR Thoracic Spine 3 Views (S tandard)Ordered By: Choco Mullins on 05-28-2023 [facility] Work Phone: LG Jt Injection/Arthrocentes is: R kneeon 05-04-2023 Eliecer Hill CNP 05/04/2023 2:05 PM LG Jt Injection/Arthrocentesi s: R knee Performed by: Eliecer Hill CNP Authorized by: Eliecer Hill CNP CPT 53147 - Large Joint Arthrocentesis: Consent given by: Patient Time out: Immediately prior to the procedure a time out was called Physician or proceduralist has discussed critical or nonroutine steps, procedure duration and anticipated blood loss: Yes Supporting Documentation: Indications: Pain, joint swelling and diagnostic evaluation Procedure Details: Location: Knee Site: R knee Prep: patient was prepped and draped in usual sterile fashion Needle size: 22 G Approach: Anterolateral Medications: 40 mg triamcinolone acetonide 40 mg/mL Anesthetic used: Lidocaine 1% Anesthetic amount (mL): 2 Patient tolerance: Patient tolerated the procedure well with no immediate complications [facility] XR KNEE RIGHT 4+ VIEWS (SPEC YIN VIEWS IN COMMENTS)on 05-04-2023 XR KNEE RIGHT 4+ VIEWS (SPECIFY VIEWS IN COMMENTS) EXAMINATION: XR KNEE RIGHT 4+ VIEWS (SPECIFY VIEWS IN COMMENTS) HISTORY: ORDERING SYSTEM PROVIDED HISTORY: Pain, TECHNOLOGIST PROVIDED HISTORY: Illness/Other Reason for exam: RIGHT KNEE PAIN AND INSTABILITY Cancer History: u Surgery, RadiationHistory: u Encounter Type: Initial Additional signs and symptoms: NO ORDERING SYSTEM PROVIDED DIAGNOSIS CODES: R52 Pain COMPARISON: 02/12/2022 FINDINGS: Bilateral AP standing and PA flexion views of the knees. Lateral and sunrise view of the right knee. Right knee: Osteopenia. No acute osseous abnormality. No subluxation or dislocation. Mild medial knee compartment joint space narrowing with mild osteophytic spurring. Minimal spurring of the lateral knee compartment. Severe lateral patellofemoral joint space narrowing with mild osteophytic spurring. Small suprapatellar joint effusion. Left knee: Osteopenia. Grossly, no acute osseous abnormality. Chondrocalcinosis of the medial and lateral compartments. Mild medial knee compartment joint space narrowing. Minimal spurring of the lateral knee compartment. IMPRESSION: No acute osseous abnormality. Adlmcywo-vo-sxiaev degenerative changes involving the lateral portion of the right knee patellofemoral compartment. Osteopenia. / Workstation ID: [id number] Dictated by: NEVA MEDINA on WedMay 04, 2023 1:17:50 PM EDT Transcribed by: MORENO MCDANIEL on WedMay 04, 2023 2:12:42 PM EDT Finalized by: NEVA MEDINA on WedMay 04, 2023 5:22:15 PM EDT Normal [facility] Comment on above: Order Comment: Injur y/Trauma or Illness?:Illness/Other How long have you had these symptoms (acute/chronic)?:Acute Reason for exam?:RIGHT KNEE PAIN AND INSTABILITY History of cancer?:u Surgeries, chemotherapy, or radiation?:u Type of Exam?:Initial Additional signs and symptoms?:NO ECHOCARDIOGRAM LIMITEDon ECHOCARDIOGRAM LIMITED Patient Info Name: KRISTEN MANN Age: 73 years : 1950 Gender: Female Ht: 168 cm Wt: 79 kg BSA: 1.94 m2 HR: 113 bpm BP: 128 / 77 mmHg Heart Rhythm: Tachycardia, Sinus Rhythm Technical Quality: Fair Exam Date: 03/22/2023 10:53 AM Patient Status: Outpatient Plant Changer: Meaghan Sommer, NENA, RVT Exam Type: ECHOCARDIOGRAM LIMITED Study Info Indications - Re-assess LV function Referring Physician: RADHA HUBBARD ; [id number] BMI: 28.25 kg/m2 Summary 1. Limited two-dimensional transthoracic echocardiogram is performed. 2. Left ventricular systolic function is normal with an ejection fraction by Biplane Method of Discs of 62 %. 3. Normal RV size and function, device wire noted in the right heart. 4. Mild thickening of the aortic valve leaflets. Leaflets are unrestricted but not fully evaluated with this limited study. History/Risk Factors Dyslipidemia: Yes Chronic Lung Disease: Yes Diabetes Mellitus: Yes Tobacco Use: Never Cerebrovascular Disease: TIA History/Risk Factors carotid stenosis, tachycardia, dyspnea, GERD. Prior Interventions Pacemaker: Yes Procedure(s): Limited two-dimensional transthoracic echocardiogram is performed. Left Ventricle Left ventricular chamber dimension is normal. Left ventricular systolic function is normal with an ejection fraction by Biplane Method of Discs of 62 %. Normal left ventricular mass. Left ventricular segmental wall motion is normal. The left ventricular diastolic function is indeterminate. Right Ventricle Normal RV size and function, device wire noted in the right heart. Left Atria Left atrial chamber is normal with a left atrial volume index of 16 ml/m2 by BP MOD. Right Atria Right atrial chamber dimension is normal. Aortic Valve Mild thickening of the aortic valve leaflets. Leaflets are unrestricted but not fully evaluated with this limited study. Mitral Valve The mitral valve has thickened leaflets and calcified annulus. Tricuspid Valve The tricuspid valve leaflets are normal. There is no significant tricuspid valve stenosis. There is trace tricuspid valve regurgitation. There is no pulmonary hypertension, estimated right ventricle systolic pressure is 22 mmHg. Pericardium/Pleural There is no pericardial effusion. Inferior Vena Cava Normal inferior vena cava with >50% collapse upon inspiration consistent with normal right atrial pressure. Wall Motion Scoring Wall Motion Scoring Index: 1.00 Mitral Valve - Name Value Normal - MV Doppler - MV Decel Johnston 352 cm/s2 MV PHT 55 ms MV Area (PHT) 4.0 cm2 4.0-5.0 MV Diastolic Function - MV E Peak Velocity 0.67 m/s MV A Peak Velocity 1.10 m/s MV E/A 0.6 MV Decel Time 191 ms MV Annular TDI - MV Septal e' Velocity 4.5 cm/s >=8.0 MV Septal a' Velocity 12.2 cm/s MV E/e' (Septal) 15.1 <=8.0 MV A/a' (Septal) 9.0 MV Lateral e' Velocity 5.8 cm/s >=10.0 MV Lateral a' Velocity 9.6 cm/s MV E/e' (Lateral) 11.7 <=8.0 MV A/a' (Lateral) 11.5 MV e' Average 5.12 cm/s MV a' Average 10.89 cm/s MV E/e' (Average) 13.4 MV A/a' (Average) 10.3 Tricuspid Valve - Name Value Normal - TV Regurgitation Doppler - TR Peak Velocity 2.17 m/s Estimated PAP/RSVP - RA Pressure 3 mmHg <=5 PA Systolic Pressure 22 mmHg <=36 RV Systolic Pressure 22 mmHg <36 Venous - Name Value Normal - IVC/SVC - IVC Diameter (Exp 2D) 1.6 cm <=2.1 Ventricles - Name Value Normal - LV Dimensions 2D/MM - IVS Diastolic Thickness (2D) 1.4 cm 0.6-0.9 LVID Diastole (2D) 2.9 cm 3.8-5.2 LVIW Diastolic Thickness (2D) 1.2 cm 0.6-0.9 LVID Systole (2D) 2.1 cm 2.2-3.5 LV Mass (2D Cubed) 112.15 g 67.00-162.00 LV Mass Index (2D Cubed) 58 g/m2 43-95 Relative Wall Thickness (2D) 0.83 <=0.42 LV Fractional Shortening/Ejection Fraction 2D/MM - (more content not included)... Normal [facility] CT HEAD WO CONTRASTon 2022 CT HEAD WO CONTRAST Patient Name: KRISTEN MANN STUDY: CT HEAD WO CONTRAST; 12/08/2022 8:58 am INDICATION: INCREASED PAIN WEAKNESS OF LEFT SIDE. COMPARISON: None. ACCESSION NUMBER(S): [id number] ORDERING CLINICIAN: GISELE DALTON TECHNIQUE: Noncontrast axial CT scan of head was performed. Angled reformats in brain and bone windows were generated. The images were reviewed in bone, brain, blood and soft tissue windows. FINDINGS: CSF Spaces: There is prominence of ventricles and sulci compatible with diffuse parenchymal volume loss. The degree of ventriculomegaly is disproportionate with the size of the sulci. There is no extraaxial fluid collection. Parenchyma: There are patchy and confluent areas of diminished attenuation in the subcortical and periventricular white matter. Small hypodensities are noted within the basal ganglia, thalami, and external capsules. The posterior fossa is degraded by beam hardening artifact. There are patchy areas of diminished attenuation in the brainstem. There is no evidence of mass effect, midline shift, or acute intracranial hemorrhage. Calvarium: Unremarkable. Paranasal sinuses and mastoids: There is trace mucosal thickening within scattered paranasal sinuses. Opacification of a few bilateral mastoid air cells. There are degenerative changes of the temporomandibular articulations. IMPRESSION: 1. Nonspecific white matter changes most likely represent small-vessel ischemic disease in a patient of this age. There is involvement of the guicho. Scattered lacunar infarcts are suspected as well. MRI with diffusion-imaging would be a much more sensitive means of assessing for acute ischemic injury. 2. Diffuse parenchymal volume loss. Disproportionate ventriculomegaly could reflect more pronounced central volume loss or communicating hydrocephalus. Electronically signed by: GISELE OWENS, Normal [facility] UA MICROSCOPICon 10-31-2022 BACTERIA 1+ /HPF Abnormal [facility] Comment on above: Performed By: #### U AMIC #### [address] [address] CA OXALATE CRYSTAL 3+ /HPF Abnormal [facility] Comment on above: Performed By: #### U AMIC #### [address] [address] HYALINE CAST 1+ /LPF Abnormal [facility] Comment on above: Performed By: #### U AMIC #### [place] [address] RBC 3 /HPF Normal 0-5 [facility] Comment on above: Performed By: #### U AMIC #### [place] [address] RENAL EPITH. CELLS <[address] [facility] Comment on above: Performed By: #### U AMIC #### [place] [address] SQUAMOUS EPITH. CELLS 1 /HPF Normal [facility] Comment on above: Performed By: #### U AMIC #### [place] [address] WBC 27 /HPF Abnormal 0-5 [facility] Comment on above: Performed By: #### U AMIC #### [place] [address] URINALYSISon 10-31-2022 Appearance (U) SLT CLOUDY Normal CLEAR [facility] Comment on above: Performed By: #### U A #### [place] [address] Bilirubin Ql (U) Negative Normal NEGATIVE [facility] Comment on above: Performed By: #### U A #### [place] [address] Color (U) YELLOW Normal STRAW,YELLO W [facility] Comment on above: Performed By: #### U A #### [place] [address] Glucose Ql (U) Negative Normal NEGATIVE [facility] Comment on above: Performed By: #### U A #### [place] [address] Hemoglobin Ql (U) Negative Normal NEGATIVE [facility] Comment on above: Performed By: #### U A #### [place] [address] Ketones Ql (U) Negative Normal NEGATIVE [facility] Comment on above: Performed By: #### U A #### [address] [address] Leukocyte esterase Test strip Ql (U) TRACE Abnormal NEGATIVE [facility] Comment on above: Performed By: #### U A #### [address] [address] Nitrite Ql (U) Negative Normal NEGATIVE [facility] Comment on above: Performed By: #### U A #### [address] [address] pH (U) 7.0 [pH] Normal 5.0 - 8.0 [facility] Comment on above: Performed By: #### U A #### [address] [address] Protein Ql (U) 30 (1+) Abnormal NEGATIVE [facility] Comment on above: Performed By: #### U A #### [place] [id number] Specific gravity (U) [Rel density] 1.015 Normal 1.005 - 1.035 [facility] Comment on above: Performed By: #### U A #### [address] [address] Urobilinogen (U) [Mass/Vol] mg/dL Normal 0.0 - 1.9 [facility] Comment on above: Performed By: #### U A #### [address] [address] URINE CULTURE,BACTERIALon URINE CULTURE,BACTERIAL GISELE DALTON MAGNETIC PROSPECTING OPERATOR BOLA SPECIMEN DROP OFF PATIENT: KRISTEN MANN LOCATION: [facility]#: [id number] : 54 AGE: SEX: F ORDERED BY: BEATA GONZALEZ PHYSICIAN SOURCE: URINE COLLECTED: 10/31/22 18:00 ANTIBIOTICS AT [facility].: RECEIVED : 11/01/22 15:57 SITE: Unspecified R E S U L T S URINE CULTURE,BACTERIAL FINAL 11/02/22 08:26 MIXED URETHRAL CHRIS. Normal [facility] Comment on above: Performed By: #### U RIN #### [facility] [address] [place] [address] UA MICROSCOPICon 10-25-2022 CA OXALATE CRYSTAL 3+ /HPF Abnormal [facility] Comment on above: Order Comment: Dr Ham Fax [phone] Performed By: #### U AMIC #### [address] [address] RBC (U) [#/Vol] /uL Normal 0-5 [facility] Comment on above: Order Comment: Dr Ham Fax [phone] Performed By: #### U AMIC #### [address] [address] SQUAMOUS EPITH. CELLS 2 /HPF Normal [facility] Comment on above: Order Comment: Dr Ham Fax [phone] Performed By: #### U AMIC #### [address] [address] WBC 33 /HPF Abnormal 0-5 [facility] Comment on above: Order Comment: Dr Ham Fax [phone] Performed By: #### U AMIC #### [address] [address] URINALYSISon 10-25-2022 Appearance (U) HAZY Normal CLEAR [facility] Comment on above: Order Comment: Dr Ham Fax [phone] Performed By: #### U A #### [address] [address] Bilirubin Ql (U) Negative Normal NEGATIVE [facility] Comment on above: Order Comment: Dr Ham Fax [phone] Performed By: #### U A #### [address] [address] Color (U) Yellow Normal STRAW,YELLO W [facility] Comment on above: Order Comment: Dr Ham Fax [phone] Performed By: #### U A #### [address] [address] Glucose Ql (U) >=500(3+) Abnormal NEGATIVE [facility] Comment on above: Order Comment: Dr Ham Fax [phone] Performed By: #### U A #### [address] [address] Hemoglobin Ql (U) Negative Normal NEGATIVE [facility] Comment on above: Order Comment: Dr Ham Fax [phone] Performed By: #### U A #### [address] [address] Ketones Ql (U) Negative Normal NEGATIVE [facility] Comment on above: Order Comment: Dr Ham Fax [phone] Performed By: #### U A #### [address] [address] Leukocyte esterase Test strip Ql (U) SMALL(1+) Abnormal NEGATIVE [facility] Comment on above: Order Comment: Dr Ham Fax [phone] Performed By: #### U A #### [address] [address] Nitrite Ql (U) Negative Normal NEGATIVE [facility] Comment on above: Order Comment: Dr Ham Fax [phone] Performed By: #### U A #### [address] [address] pH (U) 6.0 [pH] Normal 5.0 - 8.0 [facility] Comment on above: Order Comment: Dr Ham Fax [phone] Performed By: #### U A #### [address] [address] Protein Ql (U) 30(1+) Abnormal NEGATIVE [facility] Comment on above: Order Comment: Dr Ham Fax [phone] Performed By: #### U A #### [address] [address] Specific gravity (U) [Rel density] 1.017 Normal 1.005 - 1.035 [facility] Comment on above: Order Comment: Dr Ham Fax [phone] Performed By: #### U A #### [place] [address] [place] [address] Urobilinogen (U) [Mass/Vol] mg/dL Normal 0.0 - 1.9 [facility] Comment on above: Order Comment: Dr Ham Fax [phone] Performed By: #### U A #### [place] [address] [place] [address] URINE CULTURE,BACTERIALon URINE CULTURE,BACTERIAL Dr Angelo cortes Fax [phone] PATIENT: KRISTEN MANN LOCATION: [facility]#: [id number] : 54 AGE: SEX: F ORDERED BY: AMBULATORY MNAILIN, PHYSICIAN SOURCE: URINE COLLECTED: 10/25/22 14:45 ANTIBIOTICS AT [facility].: RECEIVED : 10/26/22 13:10 SITE: Unspecified R E S U L T S URINE CULTURE,BACTERIAL FINAL 10/27/22 08:38 MIXED URETHRAL CHRIS. Normal [facility] Comment on above: Performed By: #### U [facility] #### [facility] [address] [place] [address] Absolute lymphocyte countOrd ered By: Dr. Cervantes on 10-12-2022 Lymphocytes Auto (Unsp spec) [#/Vol] 2.41 10*3/uL 0.83-4.51 [facility] Basophil percentageOrdered B y: Dr. Cervantes on 10-12-2022 Basophil percentage 156 mg/dL 74-106 [facility] Basophil percentage 141 mmol/L 136-145 [facility] Basophil percentage 3.5 mmol/L 3.5-5.1 [facility] Basophil percentage 110 mmol/L 98-107 [facility] Basophils (Bld) [#/Vol] 9.6 10*3/uL 4.4-11.0 [facility] Basophils (Bld) [#/Vol] 5.8 10*3/uL 2.0-7.7 [facility] Basophils/100 WBC (Bld) 60.8 % 47-70 [facility] Basophils/100 WBC (Bld) 4.4 % 0-5 [facility] Basophils/100 WBC (Bld) 0.7 % 0-1 [facility] Blood erythrocytes count (nu mber/volume)Ordered By: Dr. Cervantes on 10-12-2022 RBC (Bld) [#/Vol] 4.06 10*6/uL 4.2-5.4 [facility] Blood hemoglobin measurement (mass/volume)Ordered By: Dr. Cervantes on 10-12-2022 Hemoglobin (Bld) [Mass/Vol] 11.1 g/dL 12.0-15.0 [facility] Blood lymphocytes/100 leukoc ytesOrdered By: Dr. Cervantes on 10-12-2022 Lymphocytes/100 WBC (Bld) 25.2 % 19-41 [facility] Blood monocytes/100 leukocyt esOrdered By: Dr. Cervantes on 10-12-2022 Monocytes/100 WBC (Bld) 7.7 % 0-10 [facility] Blood platelet mean volumeOr dered By: Dr. Cervantes on 10-12-2022 Platelet mean volume (Bld) [Entitic vol] 9.1 fL 6.2-12.0 [facility] COVID-19 virus antigen assay Ordered By: Dr. Cervantes on 10-12-2022 SARS-CoV-2 (COVID-19) Ag IA.rapid Ql (Resp) [facility] Determination of erythrocyte mean corpuscular volume (MCV)Ordered By: Dr. Cervantes on 10-12-2022 MCV (RBC) [Entitic vol] 86.7 fL 81-99 [facility] Glucose Glucometer (BldC) [M ass/Vol]Ordered By: Dr. Cervantes on 10-12-2022 Glucose [Mass/Vol] 259 mg/dL 74-106 [facility] Hematocrit Auto (Bld) [Volum e fraction]Ordered By: Dr. Cervantes on 10-12-2022 Hematocrit (Bld) [Volume fraction] 35.2 % 37-47 [facility] MCHC Auto (RBC) [Mass/Vol]Or dered By: Dr. Cervantes on 10-12-2022 MCHC (RBC) [Mass/Vol] 31.5 g/dL 32-36 [facility] No Panel InformationOrdered By: Dr. Cervantes on 10-12-2022 27.3 pg 27.0-32.0 [facility] 14.2 % 11.6-14.6 [facility] 44.5 fl 35.1-43.9 [facility] 1.200 % 0.0-0.9 [facility] 0 % 0-5 [facility] 51 mL/min >60 [facility] 62 mL/min >60 [facility] 43.75 ml/min [facility] 22.3 RATIO 10-20 [facility] 24.0 mmol/L 21.0-32.0 [facility] Platelets bldOrdered By: Dr. Cervantes on 10-12-2022 Platelets (Bld) [#/Vol] 326 10*3/uL 150-450 [facility] Serum or plasma calcium arnold urement (mass/volume)Ordered By: Dr. Cervantes on 10-12-2022 Calcium [Mass/Vol] 8.7 mg/dL 8.5-10.1 [facility] Serum or plasma creatinine m easurement (mass/volume)Ordered By: Dr. Cervantes on 10-12-2022 Creatinine [Mass/Vol] 1.12 mg/dL 0.55-1.02 [facility] Serum or plasma urea nitroge n measurement (mass/volume)Ordered By: Dr. Cervantes on 10-12-2022 Urea nitrogen [Mass/Vol] 25 mg/dL 7-18 [facility] Thin prep Papanicolaou smear with manual screeningOrdered By: Dr. Cervantes on 10-12-2022 Thin prep Papanicolaou smear with manual screening 7 5-15 [facility] Basophil percentageOrdered B y: Dr. Andersen on 10-09-2022 Basophil percentage 0-5 SEEN /hpf 0-5 [facility] Bilirubin Test strip Ql (U)O rdered By: Dr. Andersen on 10-09-2022 Bilirubin Ql (U) Negative Negative [facility] Ketones Test strip Ql (U)Ord ered By: Dr. Andersen on 10-09-2022 Ketones Ql (U) Negative Negative [facility] Mucus LM Ql (Urine sed)Order ed By: Dr. Andersen on 10-09-2022 Mucus Ql (Urine sed) 0 SEEN /hpf [facility] Nitrite Test strip Ql (U)Ord ered By: Dr. Andersen on 10-09-2022 Nitrite Ql (U) Negative Negative [facility] Protein Test strip Ql (U)Ord ered By: Dr. Andersen on 10-09-2022 Protein Ql (U) 30 mg/dl Negative [facility] Serum or plasma cortisol angi surement (mass/volume)Ordered By: Dr. Hidalgo on 10-09-2022 Cortisol [Mass/Vol] 6.40 ug/dL 3.44-22.45 [facility] Squamous epithelial cells de tection in urine sediment by light microscopyOrdered By: Dr. Andersen on 10-09-2022 Epithelial cells.squamous LM Ql (Urine sed) 0-5 SEEN /hpf 5-10 [facility] Urine blood detectionOrdered By: Dr. Andersen on 10-09-2022 RBC Ql (U) Negative Negative [facility] RBC Ql (U) 0 SEEN /hpf 0-5 [facility] Urine clarityOrdered By: Dr. Andersen on 10-09-2022 Clarity (U) Clear Clear [facility] Urine color determinationOrd ered By: Dr. Andersen on 10-09-2022 Color (U) Yellow Yellow [facility] Urine glucose detectionOrder ed By: Dr. Andersen on 10-09-2022 Glucose Ql (U) 250 mg/dl Normal [facility] Urine leukocyte esterase det ection by dipstickOrdered By: Dr. Andersen on 10-09-2022 Leukocyte esterase Test strip Ql (U) 25 /ul Negative [facility] Urine pHOrdered By: Dr. Andersen o n 10-09-2022 pH (U) 6.0 [pH] 5.0 - 8.0 [facility] Urine sediment bacteria coun t by microscopy (number/high power field)Ordered By: Dr. Andersen on 10-09-2022 Bacteria LM.HPF (Urine sed) [#/Area] 0 /[HPF] None Seen [facility] Urine specific gravity measu rementOrdered By: Dr. Andersen on 10-09-2022 Specific gravity (U) [Rel density] 1.015 1.002-1.030 [facility] Urobilinogen Auto test strip Ql (U)Ordered By: Dr. Andersen on 10-09-2022 Urobilinogen Ql (U) Normal mg/dl Normal [facility] Absolute lymphocyte countOrd ered By: Dr. Andersen on 10-08-2022 Lymphocytes Auto (Unsp spec) [#/Vol] 2.29 10*3/uL 0.83-4.51 [facility] Basophil percentageOrdered B y: Dr. Andersen on 10-08-2022 Basophils/100 WBC (Bld) 0.6 % 0-1 [facility] Chloride [Moles/Vol] 108 mmol/L 98-107 [facility] [facility] Eosinophils/100 WBC (Bld) 3.1 % 0-5 [facility] Glucose [Mass/Vol] 275 mg/dL 74-106 [facility] Comment on above: Glucose result great er than or equal to 200 mg/dLsuggests DIABETES MELLITUS per A.D.A. criteria. Neutrophils (Bld) [#/Vol] 11.6 10*3/uL 2.0-7.7 [facility] Neutrophils/100 WBC (Bld) 72.3 % 47-70 [facility] Potassium [Moles/Vol] 4.0 mmol/L 3.5-5.1 [facility] Sodium [Moles/Vol] 138 mmol/L 136-145 [facility] WBC (Bld) [#/Vol] 16.1 10*3/uL 4.4-11.0 [facility] Blood erythrocytes count (nu mber/volume)Ordered By: Dr. Andersen on 10-08-2022 RBC (Bld) [#/Vol] 5.15 10*6/uL 4.2-5.4 [facility] Blood hemoglobin measurement (mass/volume)Ordered By: Dr. Andersen on 10-08-2022 Hemoglobin (Bld) [Mass/Vol] 14.3 g/dL 12.0-15.0 [facility] Blood lymphocytes/100 leukoc ytesOrdered By: Dr. Andersen on 10-08-2022 Lymphocytes/100 WBC (Bld) 14.2 % 19-41 [facility] Blood monocytes/100 leukocyt esOrdered By: Dr. Andersen on 10-08-2022 Monocytes/100 WBC (Bld) 8.3 % 0-10 [facility] Blood platelet mean volumeOr dered By: Dr. Andersen on 10-08-2022 Platelet mean volume (Bld) [Entitic vol] 9.0 fL 6.2-12.0 [facility] Determination of erythrocyte mean corpuscular volume (MCV)Ordered By: Dr. Andersen on 10-08-2022 MCV (RBC) [Entitic vol] 85.2 fL 81-99 [facility] Hematocrit Auto (Bld) [Volum e fraction]Ordered By: Dr. Andersen on 10-08-2022 Hematocrit (Bld) [Volume fraction] 43.9 % 37-47 [facility] Laboratory - Chemistry and C hemistry - challengeOrdered By: Dr. Andersen on 10-08-2022 CO2 [Moles/Vol] 24.0 mmol/L 21.0-32.0 [facility] Urea nitrogen/Creatinine [Mass ratio] 21.9 mg/mg 10-20 [facility] - Hematology and Cell countsOrdered By: Dr. Andersen on 10-08-2022 Erythrocyte distribution width (RBC) [Entitic vol] 42.5 fL 35.1-43.9 [facility] Erythrocyte distribution width (RBC) [Ratio] 13.7 % 11.6-14.6 [facility] Immature granulocytes/100 WBC (Bld) 1.500 % 0.0-0.9 [facility] Comment on above: IG% - Immature Granu locytes (promyelocytes, myelocytes and metamyelocytes) > 1% indicates that a LEFT SHIFT is Present. MCH (RBC) [Entitic mass] 27.8 pg 27.0-32.0 [facility] Nucleated RBC/100 WBC (Bld) [Ratio] 0 % 0-5 [facility] MCHC Auto (RBC) [Mass/Vol]Or dered By: Dr. Andersen on 10-08-2022 MCHC (RBC) [Mass/Vol] 32.6 g/dL 32-36 [facility] No Panel InformationOrdered By: Dr. Hidalgo on 10-08-2022 22.9 ng/mL [facility] No Panel InformationOrdered By: Dr. Andersen on 10-08-2022 Estimated Creatinine Clearance Calc 35.77 ml/min [facility] Estimated GFR (MDRD) Amer 49 mL/min >60 [facility] Comment on above: GFR Calc Estimated GFR (MDRD) Non-Af Amer 40 mL/min >60 [facility] Comment on above: Non- GFR Calc Troponin I High Sensitivity 6 pg/mL 3.0-54.0 [facility] Comment on above: Please Note: [place] t Units and Gender Specific Reference Ranges. For more information see Policy Stat Procedure [place] High Sensitivity Troponin (TNIH) and attachments. 6 pg/mL 3.0-54.0 [facility] Platelets bldOrdered By: Dr. Andersen on 10-08-2022 Platelets (Bld) [#/Vol] 348 10*3/uL 150-450 [facility] Serum or plasma calcium arnold urement (mass/volume)Ordered By: Dr. Andersen on 10-08-2022 Calcium [Mass/Vol] 9.8 mg/dL 8.5-10.1 [facility] Serum or plasma creatinine m easurement (mass/volume)Ordered By: Dr. Andersen on 10-08-2022 Creatinine [Mass/Vol] 1.37 mg/dL 0.55-1.02 [facility] Comment on above: The validity of the calculated GFR & GFRAA in patients over 70 years has not been determined. Clinical correlation is essential. Serum or plasma urea nitroge n measurement (mass/volume)Ordered By: Dr. Andersen on 10-08-2022 Urea nitrogen [Mass/Vol] 30 mg/dL 7-18 [facility] Thin prep Papanicolaou smear with manual screeningOrdered By: Dr. Andersen on 10-08-2022 Thin prep Papanicolaou smear with manual screening 6 5-15 [facility] Absolute lymphocyte countOrd ered By: Arti Burnette on 09-25-2022 Lymphocytes Auto (Unsp spec) [#/Vol] 2.36 10*3/uL 0.83-4.51 [facility] Basophil percentageOrdered B y: Arti Burnette on 09-25-2022 Basophil percentage 10-25 SEEN /hpf 0-5 [facility] Basophil percentage 314 mg/dL 74-106 [facility] Basophil percentage 8.7 g/dL 6.4-8.2 [facility] Basophil percentage 0.30 mg/dL 0.20-1.00 [facility] Basophil percentage 132 mmol/L 136-145 [facility] Basophil percentage 3.8 mmol/L 3.5-5.1 [facility] Basophil percentage 100 mmol/L 98-107 [facility] Basophils (Bld) [#/Vol] 13.3 10*3/uL 4.4-11.0 [facility] Basophils (Bld) [#/Vol] 9.3 10*3/uL 2.0-7.7 [facility] Basophils/100 WBC (Bld) 0.8 % 0-1 [facility] Basophils/100 WBC (Bld) 70.2 % 47-70 [facility] Basophils/100 WBC (Bld) 1.5 % 0-5 [facility] Bilirubin [Mass/Vol] 0.30 mg/dL 0.20-1.00 [facility] Comment on above: For patients on eltr ombopag therapy, use of Dimension [place] TBIL is not recommended. Chloride [Moles/Vol] 100 mmol/L 98-107 [facility] Eosinophils/100 WBC (Bld) 1.5 % 0-5 [facility] Glucose [Mass/Vol] 314 mg/dL 74-106 [facility] Comment on above: Glucose result great er than or equal to 200 mg/dLsuggests DIABETES MELLITUS per A.D.A. criteria. Neutrophils (Bld) [#/Vol] 9.3 10*3/uL 2.0-7.7 [facility] Neutrophils/100 WBC (Bld) 70.2 % 47-70 [facility] Potassium [Moles/Vol] 3.8 mmol/L 3.5-5.1 [facility] Protein [Mass/Vol] 8.7 g/dL 6.4-8.2 [facility] Sodium [Moles/Vol] 132 mmol/L 136-145 [facility] WBC (Bld) [#/Vol] 13.3 10*3/uL 4.4-11.0 [facility] Bilirubin Test strip Ql (U)O rdered By: Arti Burnette on 09-25-2022 Bilirubin Ql (U) Negative Negative [facility] Blood erythrocytes count (nu mber/volume)Ordered By: Arti Burnette on 09-25-2022 RBC (Bld) [#/Vol] 5.42 10*6/uL 4.2-5.4 [facility] Blood hemoglobin measurement (mass/volume)Ordered By: Arti Burnette on 09-25-2022 Hemoglobin (Bld) [Mass/Vol] 14.9 g/dL 12.0-15.0 [facility] Blood lymphocytes/100 leukoc ytesOrdered By: Arti Burnette on 09-25-2022 Lymphocytes/100 WBC (Bld) 17.8 % 19-41 [facility] Blood monocytes/100 leukocyt esOrdered By: Arti Burnette on 09-25-2022 Monocytes/100 WBC (Bld) 8.3 % 0-10 [facility] Blood platelet mean volumeOr dered By: Arti Burnette on 09-25-2022 Platelet mean volume (Bld) [Entitic vol] 9.2 fL 6.2-12.0 [facility] Determination of erythrocyte mean corpuscular volume (MCV)Ordered By: Arti Burnette on 09-25-2022 MCV (RBC) [Entitic vol] 86.7 fL 81-99 [facility] Hematocrit Auto (Bld) [Volum e fraction]Ordered By: Arti Burnette on 09-25-2022 Hematocrit (Bld) [Volume fraction] 47.0 % 37-47 [facility] Ketones Test strip Ql (U)Ord ered By: Arti Burnette on 09-25-2022 Ketones Ql (U) Negative Negative [facility] Laboratory - Chemistry and C hemistry - challengeOrdered By: Arti Burnette on 09-25-2022 ALP [Catalytic activity/Vol] 174 U/L 45-117 [facility] ALT [Catalytic activity/Vol] 25 U/L 13-56 [facility] CO2 [Moles/Vol] 22.0 mmol/L 21.0-32.0 [facility] Globulin (S) [Mass/Vol] 5.6 g/dL 2.2-4.2 [facility] Urea nitrogen/Creatinine [Mass ratio] 19.4 mg/mg 10-20 [facility] - Hematology and Cell countsOrdered By: Arti Burnette on 09-25-2022 Erythrocyte distribution width (RBC) [Entitic vol] 43.3 fL 35.1-43.9 [facility] Erythrocyte distribution width (RBC) [Ratio] 13.7 % 11.6-14.6 [facility] Immature granulocytes/100 WBC (Bld) 1.400 % 0.0-0.9 [facility] Comment on above: IG% - Immature Granu locytes (promyelocytes, myelocytes and metamyelocytes) > 1% indicates that a LEFT SHIFT is Present. MCH (RBC) [Entitic mass] 27.5 pg 27.0-32.0 [facility] Nucleated RBC/100 WBC (Bld) [Ratio] 0 % 0-5 [facility] MCHC Auto (RBC) [Mass/Vol]Or dered By: Arti Burnette on 09-25-2022 MCHC (RBC) [Mass/Vol] 31.7 g/dL 32-36 [facility] Mucus LM Ql (Urine sed)Order ed By: Arti Burnette on 09-25-2022 Mucus Ql (Urine sed) 0 SEEN /hpf [facility] Nitrite Test strip Ql (U)Ord ered By: Arti Burnette on 09-25-2022 Nitrite Ql (U) Negative Negative [facility] No Panel InformationOrdered By: Arti Burnette on 09-25-2022 Estimated Creatinine Clearance Calc 36.57 ml/min [facility] Estimated GFR (MDRD) Amer 50 mL/min >60 [facility] Comment on above: GFR Calc Estimated GFR (MDRD) Non-Af Amer 42 mL/min >60 [facility] Comment on above: Non- GFR Calc 27.5 pg 27.0-32.0 [facility] 13.7 % 11.6-14.6 [facility] 43.3 fl 35.1-43.9 [facility] 1.400 % 0.0-0.9 [facility] 0 % 0-5 [facility] 42 mL/min >60 [facility] 50 mL/min >60 [facility] 36.57 ml/min [facility] 19.4 RATIO 10-20 [facility] 5.6 g/dL 2.2-4.2 [facility] 174 U/L 45-117 [facility] 25 U/L 13-56 [facility] 22.0 mmol/L 21.0-32.0 [facility] Platelets bldOrdered By: Mitesh Burnette on 09-25-2022 Platelets (Bld) [#/Vol] 373 10*3/uL 150-450 [facility] Protein Test strip Ql (U)Ord ered By: Arti Burnette on 09-25-2022 Protein Ql (U) 15 mg/dl Negative [facility] Serum or plasma albumin arnold urement (mass/volume)Ordered By: Arti Burnette on 09-25-2022 Albumin [Mass/Vol] 3.1 g/dL 3.2-5.0 [facility] Serum or plasma albumin/glob ulin mass ratioOrdered By: Arti Burnette on 09-25-2022 Albumin/Globulin [Mass ratio] 0.6 {ratio} 0.9-2.4 [facility] Serum or plasma calcium arnold urement (mass/volume)Ordered By: Arti Burnette on 09-25-2022 Calcium [Mass/Vol] 9.3 mg/dL 8.5-10.1 [facility] Serum or plasma creatinine m easurement (mass/volume)Ordered By: Arti Burnette on 09-25-2022 Creatinine [Mass/Vol] 1.34 mg/dL 0.55-1.02 [facility] Comment on above: The validity of the calculated GFR & GFRAA in patients over 70 years has not been determined. Clinical correlation is essential. Serum or plasma urea nitroge n measurement (mass/volume)Ordered By: Arti Burnette on 09-25-2022 Urea nitrogen [Mass/Vol] 26 mg/dL 7-18 [facility] Squamous epithelial cells de tection in urine sediment by light microscopyOrdered By: Arti Burnette on 09-25-2022 Epithelial cells.squamous LM Ql (Urine sed) 0-5 SEEN /hpf 5-10 [facility] Thin prep Papanicolaou smear with manual screeningOrdered By: Arti Burnette on 09-25-2022 Thin prep Papanicolaou smear with manual screening 14 U/L 15-37 [facility] Thin prep Papanicolaou smear with manual screening 10 5-15 [facility] Urine blood detectionOrdered By: Arti Burnette on 09-25-2022 RBC Ql (U) Negative Negative [facility] RBC Ql (U) 0 SEEN /hpf 0-5 [facility] Urine clarityOrdered By: Mitesh Burnette on 09-25-2022 Clarity (U) Clear Clear [facility] Urine color determinationOrd ered By: Arti Burnette on 09-25-2022 Color (U) Yellow Yellow [facility] Urine glucose detectionOrder ed By: Arti Burnette on 09-25-2022 Glucose Ql (U) 250 mg/dl Normal [facility] Urine leukocyte esterase det ection by dipstickOrdered By: Arti Burnette on 09-25-2022 Leukocyte esterase Test strip Ql (U) 500 /ul Negative [facility] Urine pHOrdered By: Rolo Burnette on 09-25-2022 pH (U) 7.0 [pH] 5.0 - 8.0 [facility] Urine sediment bacteria coun t by microscopy (number/high power field)Ordered By: Arti Burnette on 09-25-2022 Bacteria LM.HPF (Urine sed) [#/Area] 0 /[HPF] None Seen [facility] Urine specific gravity measu rementOrdered By: Arti Burnette on 09-25-2022 Specific gravity (U) [Rel density] 1.010 1.002-1.030 [facility] Urobilinogen Auto test strip Ql (U)Ordered By: Arti Burnette on 09-25-2022 Urobilinogen Ql (U) Normal mg/dl Normal [facility] Absolute lymphocyte countOrd ered By: Dr. Patton on 09-22-2022 Lymphocytes Auto (Unsp spec) [#/Vol] 2.97 10*3/uL 0.83-4.51 [facility] Basophil percentageOrdered B y: Dr. Patton on 09-22-2022 Basophil percentage 312 mg/dL 74-106 [facility] Basophil percentage 139 mmol/L 136-145 [facility] Basophil percentage 4.0 mmol/L 3.5-5.1 [facility] Basophil percentage 105 mmol/L 98-107 [facility] Basophils (Bld) [#/Vol] 12.3 10*3/uL 4.4-11.0 [facility] Basophils (Bld) [#/Vol] 7.5 10*3/uL 2.0-7.7 [facility] Basophils/100 WBC (Bld) 0.5 % 0-1 [facility] Basophils/100 WBC (Bld) 61.4 % 47-70 [facility] Basophils/100 WBC (Bld) 3.7 % 0-5 [facility] Chloride [Moles/Vol] 105 mmol/L 98-107 [facility] Eosinophils/100 WBC (Bld) 3.7 % 0-5 [facility] Glucose [Mass/Vol] 312 mg/dL 74-106 [facility] Comment on above: Glucose result great er than or equal to 200 mg/dLsuggests DIABETES MELLITUS per A.D.A. criteria. Neutrophils (Bld) [#/Vol] 7.5 10*3/uL 2.0-7.7 [facility] Neutrophils/100 WBC (Bld) 61.4 % 47-70 [facility] Potassium [Moles/Vol] 4.0 mmol/L 3.5-5.1 [facility] Sodium [Moles/Vol] 139 mmol/L 136-145 [facility] WBC (Bld) [#/Vol] 12.3 10*3/uL 4.4-11.0 [facility] Blood erythrocytes count (nu mber/volume)Ordered By: Dr. Patton on 09-22-2022 RBC (Bld) [#/Vol] 4.45 10*6/uL 4.2-5.4 [facility] Blood hemoglobin measurement (mass/volume)Ordered By: Dr. Patton on 09-22-2022 Hemoglobin (Bld) [Mass/Vol] 12.3 g/dL 12.0-15.0 [facility] Blood lymphocytes/100 leukoc ytesOrdered By: Dr. Patton on 09-22-2022 Lymphocytes/100 WBC (Bld) 24.2 % 19-41 [facility] Blood monocytes/100 leukocyt esOrdered By: Dr. aPtton on 09-22-2022 Monocytes/100 WBC (Bld) 8.9 % 0-10 [facility] Blood platelet mean volumeOr dered By: Dr. Patton on 09-22-2022 Platelet mean volume (Bld) [Entitic vol] 9.1 fL 6.2-12.0 [facility] Determination of erythrocyte mean corpuscular volume (MCV)Ordered By: Dr. Patton on 09-22-2022 MCV (RBC) [Entitic vol] 87.0 fL 81-99 [facility] Glucose Glucometer (BldC) [M ass/Vol]Ordered By: Dr. Patton on 09-22-2022 Glucose [Mass/Vol] 410 mg/dL 74-106 [facility] Comment on above: MANAGEMENT OF PATIEN T CARE PER NURSING PROTOCOL Hematocrit Auto (Bld) [Volum e fraction]Ordered By: Dr. Patton on 09-22-2022 Hematocrit (Bld) [Volume fraction] 38.7 % 37-47 [facility] Laboratory - Chemistry and C hemistry - challengeOrdered By: Dr. Patton on 09-22-2022 CO2 [Moles/Vol] 23.0 mmol/L 21.0-32.0 [facility] Urea nitrogen/Creatinine [Mass ratio] 14.9 mg/mg 10-20 [facility] - Hematology and Cell countsOrdered By: Dr. Patton on 09-22-2022 Erythrocyte distribution width (RBC) [Entitic vol] 42.7 fL 35.1-43.9 [facility] Erythrocyte distribution width (RBC) [Ratio] 13.5 % 11.6-14.6 [facility] Immature granulocytes/100 WBC (Bld) 1.300 % 0.0-0.9 [facility] Comment on above: IG% - Immature Granu locytes (promyelocytes, myelocytes and metamyelocytes) > 1% indicates that a LEFT SHIFT is Present. MCH (RBC) [Entitic mass] 27.6 pg 27.0-32.0 [facility] Nucleated RBC/100 WBC (Bld) [Ratio] 0 % 0-5 [facility] MCHC Auto (RBC) [Mass/Vol]Or dered By: Dr. Patton on 09-22-2022 MCHC (RBC) [Mass/Vol] 31.8 g/dL 32-36 [facility] No Panel InformationOrdered By: Dr. Patton on 09-22-2022 Estimated Creatinine Clearance Calc 36.57 ml/min [facility] Estimated GFR (MDRD) Amer 50 mL/min >60 [facility] Comment on above: GFR Calc Estimated GFR (MDRD) Non-Af Amer 42 mL/min >60 [facility] Comment on above: Non- GFR Calc 27.6 pg 27.0-32.0 [facility] 13.5 % 11.6-14.6 [facility] 42.7 fl 35.1-43.9 [facility] 1.300 % 0.0-0.9 [facility] 0 % 0-5 [facility] 42 mL/min >60 [facility] 50 mL/min >60 [facility] 36.57 ml/min [facility] 14.9 RATIO 10-20 [facility] 23.0 mmol/L 21.0-32.0 [facility] Platelets bldOrdered By: Dr. Patton on 09-22-2022 Platelets (Bld) [#/Vol] 361 10*3/uL 150-450 [facility] Serum or plasma calcium arnold urement (mass/volume)Ordered By: Dr. Patton on 09-22-2022 Calcium [Mass/Vol] 9.1 mg/dL 8.5-10.1 [facility] Serum or plasma creatinine m easurement (mass/volume)Ordered By: Dr. Patton on 09-22-2022 Creatinine [Mass/Vol] 1.34 mg/dL 0.55-1.02 [facility] Comment on above: The validity of the calculated GFR & GFRAA in patients over 70 years has not been determined. Clinical correlation is essential. Serum or plasma urea nitroge n measurement (mass/volume)Ordered By: Dr. Patton on 09-22-2022 Urea nitrogen [Mass/Vol] 20 mg/dL 7-18 [facility] Thin prep Papanicolaou smear with manual screeningOrdered By: Dr. Patton on 09-22-2022 Thin prep Papanicolaou smear with manual screening 11 5-15 [facility] Basophil percentageOrdered B y: Dr. Ellis on 09-21-2022 Basophil percentage 7.5 g/dL 6.4-8.2 [facility] Basophil percentage 0.40 mg/dL 0.20-1.00 [facility] Bilirubin [Mass/Vol] 0.40 mg/dL 0.20-1.00 [facility] Comment on above: For patients on eltr ombopag therapy, use of Dimension [place] TBIL is not recommended. Protein [Mass/Vol] 7.5 g/dL 6.4-8.2 [facility] - Chemistry and C hemistry - challengeOrdered By: Dr. Ellis on 09-21-2022 ALP [Catalytic activity/Vol] 128 U/L [facility] ALT [Catalytic activity/Vol] 14 U/L [facility] Globulin (S) [Mass/Vol] 4.9 g/dL 2.2-4.2 [facility] No Panel InformationOrdered By: Dr. Ellis on 09-21-2022 4.9 g/dL 2.2-4.2 [facility] 128 U/L [facility] 14 U/L [facility] Serum or plasma albumin arnold urement (mass/volume)Ordered By: Dr. Ellis on 09-21-2022 Albumin [Mass/Vol] 2.6 g/dL 3.2-5.0 [facility] Serum or plasma albumin/glob ulin mass ratioOrdered By: Dr. Ellis on 09-21-2022 Albumin/Globulin [Mass ratio] 0.5 {ratio} 0.9-2.4 [facility] Thin prep Papanicolaou smear with manual screeningOrdered By: Dr. Ellis on 09-21-2022 Thin prep Papanicolaou smear with manual screening 10 U/L [facility] Whole blood hemoglobin A1c/t otal hemoglobin ratio (mass fraction)Ordered By: Dr. Hernandez on 09-21-2022 HbA1c (Bld) [Mass fraction] 9.3 % 3.8-5.6 [facility] Comment on above: Normal < 5.7 % Predi abetic 5.7 - 6.4 % Diabetic >or= 6.5 % Please note range changes. Basophil percentageOrdered B y: Dr. Meyers on 09-18-2022 Basophil percentage 25-50 SEEN /hpf 0-5 [facility] Bilirubin Test strip Ql (U)O rdered By: Dr. Meyers on 09-18-2022 Bilirubin Ql (U) Negative Negative [facility] Ketones Test strip Ql (U)Ord ered By: Dr. Meyers on 09-18-2022 Ketones Ql (U) Negative Negative [facility] - Chemistry and C hemistry - challengeOrdered By: Dr. Meyers on 09-18-2022 Lipase [Catalytic activity/Vol] 145 U/L 73-393 [facility] Mucus LM Ql (Urine sed)Order ed By: Dr. Meyers on 09-18-2022 Mucus Ql (Urine sed) 0 SEEN /hpf [facility] Nitrite Test strip Ql (U)Ord ered By: Dr. Meyers on 09-18-2022 Nitrite Ql (U) Negative Negative [facility] No Panel InformationOrdered By: Dr. Meyers on 09-18-2022 145 U/L 73-393 [facility] Protein Test strip Ql (U)Ord ered By: Dr. Meyers on 09-18-2022 Protein Ql (U) 15 mg/dl Negative [facility] Squamous epithelial cells de tection in urine sediment by light microscopyOrdered By: Dr. Meyers on 09-18-2022 Epithelial cells.squamous LM Ql (Urine sed) 0-5 SEEN /hpf 5-10 [facility] Urine blood detectionOrdered By: Dr. Meyers on 09-18-2022 RBC Ql (U) Negative Negative [facility] RBC Ql (U) 0 SEEN /hpf 0-5 [facility] Urine clarityOrdered By: Dr. Meyers on 09-18-2022 Clarity (U) Sl. Cloudy Clear [facility] Urine color determinationOrd ered By: Dr. Meyers on 09-18-2022 Color (U) Yellow Yellow [facility] Urine glucose detectionOrder ed By: Dr. Meyers on 09-18-2022 Glucose Ql (U) Normal mg/dl Normal [facility] Urine leukocyte esterase det ection by dipstickOrdered By: Dr. Meyers on 09-18-2022 Leukocyte esterase Test strip Ql (U) 500 /ul Negative [facility] Urine pHOrdered By: Dr. Srikanth wilcox on 09-18-2022 pH (U) 7.0 [pH] 5.0 - 8.0 [facility] Urine sediment bacteria coun t by microscopy (number/high power field)Ordered By: Dr. Meyers on 09-18-2022 Bacteria LM.HPF (Urine sed) [#/Area] 0 /[HPF] None Seen [facility] Urine specific gravity measu rementOrdered By: Dr. Meyers on 09-18-2022 Specific gravity (U) [Rel density] 1.010 1.002-1.030 [facility] Urobilinogen Auto test strip Ql (U)Ordered By: Dr. Meyers on 09-18-2022 Urobilinogen Ql (U) Normal mg/dl Normal [facility] Culture, urineOrdered By: Dr Jacobo Donohue on 09-14-2022 Bacteria identified Cx Nom (U) Culture exhibits no growth. [facility] Glucose Glucometer (BldC) [M ass/Vol]Ordered By: Dr. Ellis on 09-14-2022 Glucose [Mass/Vol] 221 mg/dL 74-106 [facility] Comment on above: MANAGEMENT OF PATIEN T CARE PER NURSING PROTOCOL Absolute lymphocyte countOrd ered By: Dr. Murry on 09-13-2022 Lymphocytes Auto (Unsp spec) [#/Vol] 1.97 10*3/uL 0.83-4.51 [facility] Basophil percentageOrdered B y: Dr. Murry on 09-13-2022 Basophil percentage 241 mg/dL 74-106 [facility] Basophil percentage 135 mmol/L 136-145 [facility] Basophil percentage 4.4 mmol/L 3.5-5.1 [facility] Basophil percentage 104 mmol/L 98-107 [facility] Basophils (Bld) [#/Vol] 14.8 10*3/uL 4.4-11.0 [facility] Basophils (Bld) [#/Vol] 11.4 10*3/uL 2.0-7.7 [facility] Basophils/100 WBC (Bld) 0.5 % 0-1 [facility] Basophils/100 WBC (Bld) 76.9 % 47-70 [facility] Basophils/100 WBC (Bld) 1.7 % 0-5 [facility] Chloride [Moles/Vol] 104 mmol/L 98-107 [facility] Eosinophils/100 WBC (Bld) 1.7 % 0-5 [facility] Glucose [Mass/Vol] 241 mg/dL 74-106 [facility] Comment on above: Glucose result great er than or equal to 200 mg/dLsuggests DIABETES MELLITUS per A.D.A. criteria. Neutrophils (Bld) [#/Vol] 11.4 10*3/uL 2.0-7.7 [facility] [facility] Neutrophils/100 WBC (Bld) 76.9 % 47-70 [facility] Potassium [Moles/Vol] 4.4 mmol/L 3.5-5.1 [facility] Sodium [Moles/Vol] 135 mmol/L 136-145 [facility] WBC (Bld) [#/Vol] 14.8 10*3/uL 4.4-11.0 [facility] Blood erythrocytes count (nu mber/volume)Ordered By: Dr. Murry on 09-13-2022 RBC (Bld) [#/Vol] 4.36 10*6/uL 4.2-5.4 [facility] Blood hemoglobin measurement (mass/volume)Ordered By: Dr. Murry on 09-13-2022 Hemoglobin (Bld) [Mass/Vol] 12.3 g/dL 12.0-15.0 [facility] Blood lymphocytes/100 leukoc ytesOrdered By: Dr. Murry on 09-13-2022 Lymphocytes/100 WBC (Bld) 13.3 % 19-41 [facility] Blood monocytes/100 leukocyt esOrdered By: Dr. Murry on 09-13-2022 Monocytes/100 WBC (Bld) 6.4 % 0-10 [facility] Blood platelet mean volumeOr dered By: Dr. Murry on 09-13-2022 Platelet mean volume (Bld) [Entitic vol] 9.0 fL 6.2-12.0 [facility] Determination of erythrocyte mean corpuscular volume (MCV)Ordered By: Dr. Murry on 09-13-2022 MCV (RBC) [Entitic vol] 87.2 fL 81-99 [facility] Hematocrit Auto (Bld) [Volum e fraction]Ordered By: Dr. Murry on 09-13-2022 Hematocrit (Bld) [Volume fraction] 38.0 % 37-47 [facility] Laboratory - Chemistry and C hemistry - challengeOrdered By: Dr. Murry on 09-13-2022 CO2 [Moles/Vol] 22.0 mmol/L 21.0-32.0 [facility] Urea nitrogen/Creatinine [Mass ratio] 15.6 mg/mg 10-20 [facility] Laboratory - Hematology and Cell countsOrdered By: Dr. Murry on 09-13-2022 Erythrocyte distribution width (RBC) [Entitic vol] 44.6 fL 35.1-43.9 [facility] Erythrocyte distribution width (RBC) [Ratio] 14.0 % 11.6-14.6 [facility] Immature granulocytes/100 WBC (Bld) 1.200 % 0.0-0.9 [facility] Comment on above: IG% - Immature Granu locytes (promyelocytes, myelocytes and metamyelocytes) > 1% indicates that a LEFT SHIFT is Present. MCH (RBC) [Entitic mass] 28.2 pg 27.0-32.0 [facility] Nucleated RBC/100 WBC (Bld) [Ratio] 0 % 0-5 [facility] MCHC Auto (RBC) [Mass/Vol]Or dered By: Dr. Murry on 09-13-2022 MCHC (RBC) [Mass/Vol] 32.4 g/dL 32-36 [facility] No Panel InformationOrdered By: Dr. Murry on 09-13-2022 Estimated Creatinine Clearance Calc 40.17 ml/min [facility] Estimated GFR (MDRD) Amer 56 mL/min >60 [facility] Comment on above: GFR Calc Estimated GFR (MDRD) Non-Af Amer 46 mL/min >60 [facility] Comment on above: Non- GFR Calc 28.2 pg 27.0-32.0 [facility] 14.0 % 11.6-14.6 [facility] 44.6 fl 35.1-43.9 [facility] 1.200 % 0.0-0.9 [facility] 0 % 0-5 [facility] 46 mL/min >60 [facility] 56 mL/min >60 [facility] 40.17 ml/min [facility] 15.6 RATIO 10-20 [facility] 22.0 mmol/L 21.0-32.0 [facility] Platelets bldOrdered By: Dr. Murry on 09-13-2022 Platelets (Bld) [#/Vol] 489 10*3/uL 150-450 [facility] Serum or plasma calcium arnold urement (mass/volume)Ordered By: Dr. Murry on 09-13-2022 Calcium [Mass/Vol] 9.3 mg/dL 8.5-10.1 [facility] Serum or plasma creatinine m easurement (mass/volume)Ordered By: Dr. Murry on 09-13-2022 Creatinine [Mass/Vol] 1.22 mg/dL 0.55-1.02 [facility] Comment on above: The validity of the calculated GFR & GFRAA in patients over 70 years has not been determined. Clinical correlation is essential. Serum or plasma urea nitroge n measurement (mass/volume)Ordered By: Dr. Murry on 09-13-2022 Urea nitrogen [Mass/Vol] 19 mg/dL 7-18 [facility] Thin prep Papanicolaou smear with manual screeningOrdered By: Dr. Murry on 09-13-2022 Thin prep Papanicolaou smear with manual screening 9 5-15 [facility] Basophil percentageOrdered B y: Dr. Donohue on 09-12-2022 Basophil percentage 8.6 g/dL 6.4-8.2 [facility] Basophil percentage 0.30 mg/dL 0.20-1.00 [facility] Bilirubin [Mass/Vol] 0.30 mg/dL 0.20-1.00 [facility] Comment on above: For patients on eltr ombopag therapy, use of [employer]ension [place] TBIL is not recommended. Protein [Mass/Vol] 8.6 g/dL 6.4-8.2 [facility] Basophil percentage 25-50 SEEN /hpf 0-5 [facility] Bilirubin Test strip Ql (U)O rdered By: Dr. Donohue on 09-12-2022 Bilirubin Ql (U) Negative Negative [facility] Ketones Test strip Ql (U)Ord ered By: Dr. Donohue on 09-12-2022 Ketones Ql (U) Negative Negative [facility] Laboratory - Chemistry and C hemistry - challengeOrdered By: Dr. Donohue on 09-12-2022 ALP [Catalytic activity/Vol] 149 U/L 45-117 [facility] ALT [Catalytic activity/Vol] 26 U/L 13- [facility] Globulin (S) [Mass/Vol] 5.5 g/dL 2.2-4.2 [facility] Mucus LM Ql (Urine sed)Order ed By: Dr. Donohue on 09-12-2022 Mucus Ql (Urine sed) 0 SEEN /hpf [facility] Nitrite Test strip Ql (U)Ord ered By: Dr. Donohue on 09-12-2022 Nitrite Ql (U) Negative Negative [facility] No Panel InformationOrdered By: Dr. Donohue on 09-12-2022 5.5 g/dL 2.2-4.2 [facility] 149 U/L 45-117 [facility] 26 U/L - [facility] Protein Test strip Ql (U)Ord ered By: Dr. Donohue on 09-12-2022 Protein Ql (U) 30 mg/dl Negative [facility] Serum or plasma albumin arnold urement (mass/volume)Ordered By: Dr. Donohue on 09-12-2022 Albumin [Mass/Vol] 3.1 g/dL 3.2-5.0 [facility] Serum or plasma albumin/glob ulin mass ratioOrdered By: Dr. Donohue on 09-12-2022 Albumin/Globulin [Mass ratio] 0.6 {ratio} 0.9-2.4 [facility] Squamous epithelial cells de tection in urine sediment by light microscopyOrdered By: Dr. Donohue on 09-12-2022 Epithelial cells.squamous LM Ql (Urine sed) 0-5 SEEN /hpf 5-10 [facility] Thin prep Papanicolaou smear with manual screeningOrdered By: Dr. Donohue on 09-12-2022 Thin prep Papanicolaou smear with manual screening 23 U/L 15-37 [facility] Comment on above: Slight Hemolysis, Re sult may be falsely increased. Urine blood detectionOrdered By: Dr. Donohue on 09-12-2022 RBC Ql (U) Negative Negative [facility] RBC Ql (U) 0 SEEN /hpf 0-5 [facility] Urine clarityOrdered By: Dr. Donohue on 09-12-2022 Clarity (U) Clear Clear [facility] Urine color determinationOrd ered By: Dr. Donohue on 09-12-2022 Color (U) Yellow Yellow [facility] Urine glucose detectionOrder ed By: Dr. Donohue on 09-12-2022 Glucose Ql (U) Normal mg/dl Normal [facility] Urine leukocyte esterase det ection by dipstickOrdered By: Dr. Donohue on 09-12-2022 Leukocyte esterase Test strip Ql (U) 500 /ul Negative [facility] Urine pHOrdered By: Dr. Seven darby on 09-12-2022 pH (U) 7.0 [pH] 5.0 - 8.0 [facility] Urine sediment bacteria coun t by microscopy (number/high power field)Ordered By: Dr. Donohue on 09-12-2022 Bacteria LM.HPF (Urine sed) [#/Area] 0 /[HPF] None Seen [facility] Urine specific gravity measu rementOrdered By: Dr. Donohue on 09-12-2022 Specific gravity (U) [Rel density] 1.010 1.002-1.030 [facility] Urobilinogen Auto test strip Ql (U)Ordered By: Dr. Donohue on 09-12-2022 Urobilinogen Ql (U) Normal mg/dl Normal [facility] Absolute lymphocyte countOrd ered By: Dr. Cervantes on 09-01-2022 Lymphocytes Auto (Unsp spec) [#/Vol] 2.00 10*3/uL 0.83-4.51 [facility] Bacteria identified Cx Nom ( U)Ordered By: Dr. Smith on 09-01-2022 Culture, urine Positive [facility] Basophil percentageOrdered B y: Dr. Cervantes on 09-01-2022 Basophil percentage 2.6 mg/dL 2.5-4.9 [facility] Basophil percentage 170 mg/dL 74-106 [facility] Basophil percentage 133 mmol/L 136-145 [facility] Basophil percentage 3.6 mmol/L 3.5-5.1 [facility] Basophil percentage 101 mmol/L 98-107 [facility] Basophils (Bld) [#/Vol] 12.2 10*3/uL 4.4-11.0 [facility] Basophils (Bld) [#/Vol] 8.3 10*3/uL 2.0-7.7 [facility] Basophils/100 WBC (Bld) 0.4 % 0-1 [facility] Basophils/100 WBC (Bld) 67.9 % 47-70 [facility] Basophils/100 WBC (Bld) 2.2 % 0-5 [facility] Chloride [Moles/Vol] 101 mmol/L 98-107 [facility] Eosinophils/100 WBC (Bld) 2.2 % 0-5 [facility] Glucose [Mass/Vol] 170 mg/dL 74-106 [facility] Comment on above: Fasting Glucose resu lt greater than or equal to 126 mg/dL suggests DIABETES MELLITUS per A.D.A. criteria. Neutrophils (Bld) [#/Vol] 8.3 10*3/uL 2.0-7.7 [facility] Neutrophils/100 WBC (Bld) 67.9 % 47-70 [facility] Potassium [Moles/Vol] 3.6 mmol/L 3.5-5.1 [facility] Sodium [Moles/Vol] 133 mmol/L 136-145 [facility] WBC (Bld) [#/Vol] 12.2 10*3/uL 4.4-11.0 [facility] Blood erythrocytes count (nu mber/volume)Ordered By: Dr. Cervantes on 09-01-2022 RBC (Bld) [#/Vol] 3.73 10*6/uL 4.2-5.4 [facility] Blood hemoglobin measurement (mass/volume)Ordered By: Dr. Cervantes on 09-01-2022 Hemoglobin (Bld) [Mass/Vol] 10.4 g/dL 12.0-15.0 [facility] Blood lymphocytes/100 leukoc ytesOrdered By: Dr. Cervantes on 09-01-2022 Lymphocytes/100 WBC (Bld) 16.4 % 19-41 [facility] Blood monocytes/100 leukocyt esOrdered By: Dr. Cervantes on 09-01-2022 Monocytes/100 WBC (Bld) 11.9 % 0-10 [facility] Blood platelet mean volumeOr dered By: Dr. Cervantes on 09-01-2022 Platelet mean volume (Bld) [Entitic vol] 10.0 fL 6.2-12.0 [facility] Culture, urineOrdered By: Dr Jacobo Smith on 09-01-2022 Bacteria identified Cx Nom (U) Positive [facility] Determination of erythrocyte mean corpuscular volume (MCV)Ordered By: Dr. Cervantes on 09-01-2022 MCV (RBC) [Entitic vol] 86.9 fL 81-99 [facility] Glucose Glucometer (BldC) [M ass/Vol]Ordered By: Dr. Cervantes on 09-01-2022 Glucose [Mass/Vol] 266 mg/dL 74-106 [facility] Comment on above: MANAGEMENT OF PATIEN T CARE PER NURSING PROTOCOL Hematocrit Auto (Bld) [Volum e fraction]Ordered By: Dr. Cervantes on 09-01-2022 Hematocrit (Bld) [Volume fraction] 32.4 % 37-47 [facility] Laboratory - Chemistry and C hemistry - challengeOrdered By: Dr. Cervantes on 09-01-2022 CO2 [Moles/Vol] 23.0 mmol/L 21.0-32.0 [facility] Magnesium [Mass/Vol] 2.0 mg/dL 1.6-2.6 [facility] Urea nitrogen/Creatinine [Mass ratio] 15.1 mg/mg 10-20 [facility] Laboratory - Hematology and Cell countsOrdered By: Dr. Cervantes on 09-01-2022 Erythrocyte distribution width (RBC) [Entitic vol] 44.6 fL 35.1-43.9 [facility] Erythrocyte distribution width (RBC) [Ratio] 14.0 % 11.6-14.6 [facility] Immature granulocytes/100 WBC (Bld) 1.200 % 0.0-0.9 [facility] Comment on above: IG% - Immature Granu locytes (promyelocytes, myelocytes and metamyelocytes) > 1% indicates that a LEFT SHIFT is Present. MCH (RBC) [Entitic mass] 27.9 pg 27.0-32.0 [facility] Nucleated RBC/100 WBC (Bld) [Ratio] 0 % 0-5 [facility] MCHC Auto (RBC) [Mass/Vol]Or dered By: Dr. Cervantes on 09-01-2022 MCHC (RBC) [Mass/Vol] 32.1 g/dL 32-36 [facility] No Panel InformationOrdered By: Dr. Cervantes on 09-01-2022 Estimated Creatinine Clearance Calc 32.26 ml/min [facility] Estimated GFR (MDRD) Amer 46 mL/min >60 [facility] Comment on above: GFR Calc Estimated GFR (MDRD) Non-Af Amer 38 mL/min >60 [facility] Comment on above: Non- GFR Calc Thyroid Stimulating Hormone (TSH) 1.92 uIU/mL 0.358-3.74 [facility] 27.9 pg 27.0-32.0 [facility] 14.0 % 11.6-14.6 [facility] 44.6 fl 35.1-43.9 [facility] 1.200 % 0.0-0.9 [facility] 0 % 0-5 [facility] 38 mL/min >60 [facility] 46 mL/min >60 [facility] 32.26 ml/min [facility] 15.1 RATIO 10-20 [facility] 2.0 mg/dL 1.6-2.6 [facility] 23.0 mmol/L 21.0-32.0 [facility] 1.92 uIU/mL 0.358-3.74 [facility] Platelets bldOrdered By: Dr. Cervantes on 09-01-2022 Platelets (Bld) [#/Vol] 274 10*3/uL 150-450 [facility] Serum or plasma calcium arnold urement (mass/volume)Ordered By: Dr. Cervantes on 12-27-2022 Calcium [Mass/Vol] 8.8 mg/dL 8.5-10.1 [facility] Serum or plasma creatinine m easurement (mass/volume)Ordered By: Dr. Cervantes on 09-01-2022 Creatinine [Mass/Vol] 1.46 mg/dL 0.55-1.02 [facility] Comment on above: The validity of the calculated GFR & GFRAA in patients over 70 years has not been determined. Clinical correlation is essential. Serum or plasma urea nitroge n measurement (mass/volume)Ordered By: Dr. Cervantes on 09-01-2022 Urea nitrogen [Mass/Vol] 22 mg/dL 7-18 [facility] Thin prep Papanicolaou smear with manual screeningOrdered By: Dr. Cervantes on 09-01-2022 Thin prep Papanicolaou smear with manual screening 9 5-15 [facility] Absolute lymphocyte counton 08-31-2022 Lymphocytes Auto (Unsp spec) [#/Vol] 1.33 10*3/uL 0.83-4.51 [facility] Work Phone: Basophil percentageOrdered B y: Dr. Hanson on 08-31-2022 Basophil percentage 6.9 g/dL 6.4-8.2 [facility] Basophil percentage 0.30 mg/dL 0.20-1.00 [facility] Bilirubin [Mass/Vol] 0.30 mg/dL 0.20-1.00 [facility] Comment on above: For patients on eltr ombopag therapy, use of Dimension [place] TBIL is not recommended. Protein [Mass/Vol] 6.9 g/dL 6.4-8.2 [facility] Basophil percentageOrdered B y: Dr. Smith on 08-31-2022 Basophil percentage 50-100 SEEN /hpf 0-5 [facility] Basophil percentage 1.2 mmol/L 0.4-2.0 [facility] Lactate [Moles/Vol] 1.2 mmol/L 0.4-2.0 [facility] Basophil percentageon 2021 Basophils/100 WBC (Bld) 0.6 % 0-1 [facility] Work Phone: Bilirubin [Mass/Vol] 0.40 mg/dL 0.20-1.00 [facility] Work Phone: Comment on above: For patients on eltr ombopag therapy, use of [employer] [place] TBIL is not recommended. Chloride [Moles/Vol] 100 mmol/L 98-107 [facility] Work Phone: Eosinophils/100 WBC (Bld) 0.3 % 0-5 [facility] Work Phone: Glucose [Mass/Vol] 361 mg/dL 74-106 [facility] Work Phone: Comment on above: Glucose result great er than or equal to 200 mg/dLsuggests DIABETES MELLITUS per A.D.A. criteria. Neutrophils (Bld) [#/Vol] 11.9 10*3/uL 2.0-7.7 [facility] Work Phone: [phone] Neutrophils/100 WBC (Bld) 81.0 % 47-70 [facility] Work Phone: Potassium [Moles/Vol] 4.1 mmol/L 3.5-5.1 [facility] Work Phone: Protein [Mass/Vol] 7.4 g/dL 6.4-8.2 [facility] Work Phone: Sodium [Moles/Vol] 132 mmol/L 136-145 [facility] Work Phone: WBC (Bld) [#/Vol] 14.7 10*3/uL 4.4-11.0 [facility] Work Phone: Bilirubin Test strip Ql (U)O rdered By: Dr. Smith on 08-31-2022 Bilirubin Ql (U) Negative Negative [facility] Blood erythrocytes count (nu mber/volume)on 08-31-2022 RBC (Bld) [#/Vol] 3.98 10*6/uL 4.2-5.4 [facility] Work Phone: [phone] Blood hemoglobin measurement (mass/volume)on 08-31-2022 Hemoglobin (Bld) [Mass/Vol] 11.1 g/dL 12.0-15.0 [facility] Work Phone: Blood lymphocytes/100 leukoc yteson 08-31-2022 Lymphocytes/100 WBC (Bld) 9.1 % 19-41 [facility] Work Phone: Blood monocytes/100 leukocyt eson 08-31-2022 Monocytes/100 WBC (Bld) 7.2 % 0-10 [facility] Work Phone: Blood platelet mean volumeon 08-31-2022 Platelet mean volume (Bld) [Entitic vol] 9.5 fL 6.2-12.0 [facility] Work Phone: Determination of erythrocyte mean corpuscular volume (MCV)on 08-31-2022 MCV (RBC) [Entitic vol] 88.4 fL 81-99 [facility] Work Phone: Hematocrit Auto (Bld) [Volum e fraction]on 08-31-2022 Hematocrit (Bld) [Volume fraction] 35.2 % 37-47 [facility] Work Phone: Iron measurement (mass/mass) Ordered By: Dr. Hanosn on 08-31-2022 Iron (Unsp spec) [Mass/Mass] 17 ug/dL 50-170 [facility] Ketones Test strip Ql (U)Ord ered By: Dr. Smith on 08-31-2022 Ketones Ql (U) 5 mg/dl Negative [facility] Laboratory - Chemistry and C hemistry - challengeOrdered By: Dr. Hanson on 08-31-2022 ALP [Catalytic activity/Vol] 96 U/L 45-117 [facility] ALT [Catalytic activity/Vol] 15 U/L [facility] Globulin (S) [Mass/Vol] 4.6 g/dL 2.2-4.2 [facility] Laboratory - Chemistry and C hemistry - challengeon 08-31-2022 ALP [Catalytic activity/Vol] 106 U/L 45-117 [facility] Work Phone: [phone] ALT [Catalytic activity/Vol] 18 U/L [facility] Work Phone: CO2 [Moles/Vol] 24.0 mmol/L 21.0-32.0 [facility] Work Phone: [phone] Globulin (S) [Mass/Vol] 4.7 g/dL 2.2-4.2 [facility] Work Phone: [phone] Urea nitrogen/Creatinine [Mass ratio] 13.8 mg/mg 10-20 [facility] Work Phone: [phone] Laboratory - Hematology and Cell countson 08-31-2022 Erythrocyte distribution width (RBC) [Entitic vol] 45.5 fL 35.1-43.9 [facility] Work Phone: [phone] Erythrocyte distribution width (RBC) [Ratio] 14.0 % 11.6-14.6 [facility] Work Phone: [phone] Immature granulocytes/100 WBC (Bld) 1.800 % 0.0-0.9 [facility] Work Phone: [phone] Comment on above: IG% - Immature Granu locytes (promyelocytes, myelocytes and metamyelocytes) > 1% indicates that a LEFT SHIFT is Present. MCH (RBC) [Entitic mass] 27.9 pg 27.0-32.0 [facility] Work Phone: Nucleated RBC/100 WBC (Bld) [Ratio] 0 % 0-5 [facility] Work Phone: MCHC Auto (RBC) [Mass/Vol]on 08-31-2022 MCHC (RBC) [Mass/Vol] 31.5 g/dL 32-36 [facility] Work Phone: Mucus LM Ql (Urine sed)Order ed By: Dr. Smith on 08-31-2022 Mucus Ql (Urine sed) 0 SEEN /hpf [facility] Nitrite Test strip Ql (U)Ord ered By: Dr. Smith on 08-31-2022 Nitrite Ql (U) Negative Negative [facility] No Panel InformationOrdered By: Dr. Hanson on 08-31-2022 4.6 g/dL 2.2-4.2 [facility] 96 U/L 45-117 [facility] 15 U/L 13-56 [facility] Total Iron Binding Capacity 274 ug/dL 250-450 [facility] 274 ug/dL 250-450 [facility] No Panel Informationon 08-31 Estimated Creatinine Clearance Calc 26.02 ml/min [facility] Work Phone: Estimated GFR (MDRD) Amer 36 mL/min >60 [facility] Work Phone: Comment on above: GFR Calc Estimated GFR (MDRD) Non-Af Amer 29 mL/min >60 [facility] Work Phone: Comment on above: Non- GFR Calc Platelets bldon 08-31-2022 Platelets (Bld) [#/Vol] 273 10*3/uL 150-450 [facility] Work Phone: Protein Test strip Ql (U)Ord ered By: Dr. Smith on 08-31-2022 Protein Ql (U) 100 mg/dl Negative [facility] Serum or plasma albumin arnold urement (mass/volume)Ordered By: Dr. Hanson on 08-31-2022 Albumin [Mass/Vol] 2.3 g/dL 3.2-5.0 [facility] Serum or plasma albumin arnold urement (mass/volume)on 08-31-2022 Albumin [Mass/Vol] 2.7 g/dL 3.2-5.0 [facility] Work Phone: Serum or plasma albumin/glob ulin mass ratioOrdered By: Dr. Hanson on 08-31-2022 Albumin/Globulin [Mass ratio] 0.5 {ratio} 0.9-2.4 [facility] Serum or plasma albumin/glob ulin mass ratioon 08-31-2022 Albumin/Globulin [Mass ratio] 0.6 {ratio} 0.9-2.4 [facility] Work Phone: Serum or plasma calcium arnold urement (mass/volume)on 08-31-2022 Calcium [Mass/Vol] 8.8 mg/dL 8.5-10.1 [facility] Work Phone: Serum or plasma creatinine m easurement (mass/volume)on 08-31-2022 Creatinine [Mass/Vol] 1.81 mg/dL 0.55-1.02 [facility] Work Phone: Comment on above: The validity of the calculated GFR & GFRAA in patients over 70 years has not been determined. Clinical correlation is essential. Serum or plasma iron saturat ion measurement (mass fraction)Ordered By: Dr. Hanson on 08-31-2022 Iron saturation [Mass fraction] 6.2 % 15.0-55.0 [facility] Serum or plasma urea nitroge n measurement (mass/volume)on 08-31-2022 Urea nitrogen [Mass/Vol] 25 mg/dL 7-18 [facility] Work Phone: Squamous epithelial cells de tection in urine sediment by light microscopyOrdered By: Dr. Smith on 08-31-2022 Epithelial cells.squamous LM Ql (Urine sed) 0 SEEN /hpf 5-10 [facility] Thin prep Papanicolaou smear with manual screeningOrdered By: Dr. Hanson on 08-31-2022 Thin prep Papanicolaou smear with manual screening 12 U/L 15-37 [facility] Thin prep Papanicolaou smear with manual screeningon 08-31-2022 Thin prep Papanicolaou smear with manual screening 18 U/L 15-37 [facility] Work Phone: Thin prep Papanicolaou smear with manual screening 8 5-15 [facility] Work Phone: Urine blood detectionOrdered By: Dr. Smith on 08-31-2022 RBC Ql (U) 250 /ul Negative [facility] RBC Ql (U) 10-25 SEEN /hpf 0-5 [facility] Urine clarityOrdered By: Dr. Smith on 08-31-2022 Clarity (U) Sl. Cloudy Clear [facility] Urine color determinationOrd ered By: Dr. Smith on 08-31-2022 Color (U) Yellow Yellow [facility] Urine glucose detectionOrder ed By: Dr. Smith on 08-31-2022 Glucose Ql (U) 250 mg/dl Normal [facility] Urine leukocyte esterase det ection by dipstickOrdered By: Dr. Smith on 08-31-2022 Leukocyte esterase Test strip Ql (U) 500 /ul Negative [facility] Urine pHOrdered By: Dr. Meme dunaway on 08-31-2022 pH (U) 6.5 [pH] 5.0 - 8.0 [facility] Urine sediment bacteria coun t by microscopy (number/high power field)Ordered By: Dr. Smith on 08-31-2022 Bacteria LM.HPF (Urine sed) [#/Area] 1 /[HPF] None Seen [facility] Urine specific gravity measu rementOrdered By: Dr. Smith on 08-31-2022 Specific gravity (U) [Rel density] 1.015 1.002-1.030 [facility] Urobilinogen Auto test strip Ql (U)Ordered By: Dr. Smith on 08-31-2022 Urobilinogen Ql (U) Normal mg/dl Normal [facility] Whole blood hemoglobin A1c/t otal hemoglobin ratio (mass fraction)Ordered By: Dr. Hanson on 08-31-2022 HbA1c (Bld) [Mass fraction] 9.4 % 3.8-5.6 [facility] Comment on above: Normal < 5.7 % Predi abetic 5.7 - 6.4 % Diabetic >or= 6.5 % Please note range changes. Laboratory - Drug toxicology Ordered By: Dr. Fuentes on 07-28-2022 Amphetamines Ql (U) Negative <1000 ng/mL [facility] Benzodiazepines Ql (U) Negative < 200 ng/mL [facility] Cannabinoids Screen Ql (U) Negative < 50 ng/mL [facility] Cocaine Ql (U) Negative < 300 ng/mL [facility] Opiates Ql (U) Negative < 300 ng/mL [facility] No Panel InformationOrdered By: Dr. Fuentes on 07-28-2022 MDMA (Ecstasy) Screen Negative < 500 ng/mL [facility] Miscellaneous Test See comment [facility] Comment on above: TEST RESULT LIMITSTr amadol Positive Lryvwa=[id number] [place] [id number] Qgcnml=100 TESTING PERFORMED AT [facility]. ORIGINAL REPORT ON FILE IN LAB CONTAINS ADDITIONAL TEST SITE INFORMATION. Urine Barbiturates Screen Negative < 200 ng/mL [facility] Urine Drug Screen Comment [facility] Comment on above: CONFIRMATORY TESTING FOR ALL POSITIVE URINE DRUG SCREENRESULTS WILL ONLY BE SENT OUT UPON PHYSICIAN ORDER. VISTA Urine Drug Screen methods provide only preliminaryanalytical test results. A more specific alternate chemicalmethod must be used in order to obtain a confirmedanalytical result. Gas chromatography/mass spectrometery(GC/MS) is the preferred confirmatory method. Clinicalconsideration and professional judgement should be appliedto any drug of abuse test result, particularly whenpreliminary positive results are used. URINE TCA TESTING MUST BE ORDERED SEPARATELY. USE TESTMNEMONIC: [facility] Urine Methadone Screen Negative < 300 ng/mL [facility] Negative < 50 ng/mL [facility] See comment [facility] Urine phencyclidine (PCP) de tectionOrdered By: Dr. Fuentes on 07-28-2022 Phencyclidine Ql (U) Negative < 25 ng/mL [facility] CATIE SCREENING W TOMOon 07-14 [facility] Absolute lymphocyte countOrd ered By: Dr. Meyers on 06-18-2022 Lymphocytes Auto (Unsp spec) [#/Vol] 1.46 10*3/uL 0.83-4.51 [facility] Basophil percentageOrdered B y: Dr. Meyers on 06-18-2022 Basophil percentage 662 mg/dL 74-106 [facility] Basophil percentage 131 mmol/L 136-145 [facility] Basophil percentage 4.0 mmol/L 3.5-5.1 [facility] Basophil percentage 100 mmol/L 98-107 [facility] Basophils (Bld) [#/Vol] 18.8 10*3/uL 4.4-11.0 [facility] Basophils (Bld) [#/Vol] 15.6 10*3/uL 2.0-7.7 [facility] Basophils/100 WBC (Bld) 0.4 % 0-1 [facility] Basophils/100 WBC (Bld) 82.7 % 47-70 [facility] Basophils/100 WBC (Bld) 0.3 % 0-5 [facility] Chloride [Moles/Vol] 100 mmol/L 98-107 [facility] Eosinophils/100 WBC (Bld) 0.3 % 0-5 [facility] Glucose [Mass/Vol] 662 mg/dL 74-106 [facility] Comment on above: Critical Result(s) C alled at: 22:27:38 06/18/2022 by: Dean Merlos to [employer]elia [employer] RN (ED). Results read back by same.Glucose result greater than or equal to 200 mg/dLsuggests DIABETES MELLITUS per A.D.A. criteria. Neutrophils (Bld) [#/Vol] 15.6 10*3/uL 2.0-7.7 [facility] Neutrophils/100 WBC (Bld) 82.7 % 47-70 [facility] Potassium [Moles/Vol] 4.0 mmol/L 3.5-5.1 [facility] Sodium [Moles/Vol] 131 mmol/L 136-145 [facility] WBC (Bld) [#/Vol] 18.8 10*3/uL 4.4-11.0 [facility] Basophil percentageOrdered B y: ED PROVIDER on 06-18-2022 Basophil percentage 25-50 SEEN /hpf 0-5 [facility] Bilirubin Test strip Ql (U)O rdered By: ED PROVIDER on 06-18-2022 Bilirubin Ql (U) Negative Negative [facility] Blood erythrocytes count (nu mber/volume)Ordered By: Dr. Meyers on 06-18-2022 RBC (Bld) [#/Vol] 4.31 10*6/uL 4.2-5.4 [facility] Blood hemoglobin measurement (mass/volume)Ordered By: Dr. Meyers on 06-18-2022 Hemoglobin (Bld) [Mass/Vol] 12.1 g/dL 12.0-15.0 [facility] Blood lymphocytes/100 leukoc ytesOrdered By: Dr. Meyers on 06-18-2022 Lymphocytes/100 WBC (Bld) 7.8 % 19-41 [facility] Blood monocytes/100 leukocyt esOrdered By: Dr. Meyers on 06-18-2022 Monocytes/100 WBC (Bld) 6.5 % 0-10 [facility] Blood platelet mean volumeOr dered By: Dr. Meyers on 06-18-2022 Platelet mean volume (Bld) [Entitic vol] 9.4 fL 6.2-12.0 [facility] Determination of erythrocyte mean corpuscular volume (MCV)Ordered By: Dr. Meyers on 06-18-2022 MCV (RBC) [Entitic vol] 87.0 fL 81-99 [facility] Hematocrit Auto (Bld) [Volum e fraction]Ordered By: Dr. Meyers on 06-18-2022 Hematocrit (Bld) [Volume fraction] 37.5 % 37-47 [facility] Ketones Test strip Ql (U)Ord ered By: ED PROVIDER on 06-18-2022 Ketones Ql (U) 15 mg/dl Negative [facility] Laboratory - Chemistry and C hemistry - challengeOrdered By: Dr. Meyers on 06-18-2022 CO2 [Moles/Vol] 19.0 mmol/L 21.0-32.0 [facility] Urea nitrogen/Creatinine [Mass ratio] 17.9 mg/mg 10-20 [facility] Laboratory - Hematology and Cell countsOrdered By: Dr. Meyers on 06-18-2022 Erythrocyte distribution width (RBC) [Entitic vol] 42.7 fL 35.1-43.9 [facility] Erythrocyte distribution width (RBC) [Ratio] 13.5 % 11.6-14.6 [facility] Immature granulocytes/100 WBC (Bld) 2.300 % 0.0-0.9 [facility] Comment on above: IG% - Immature Granu locytes (promyelocytes, myelocytes and metamyelocytes) > 1% indicates that a LEFT SHIFT is Present. MCH (RBC) [Entitic mass] 28.1 pg 27.0-32.0 [facility] Nucleated RBC/100 WBC (Bld) [Ratio] 0 % 0-5 [facility] MCHC Auto (RBC) [Mass/Vol]Or dered By: Dr. Meyers on 06-18-2022 MCHC (RBC) [Mass/Vol] 32.3 g/dL 32-36 [facility] Mucus LM Ql (Urine sed)Order ed By: ED PROVIDER on 06-18-2022 Mucus Ql (Urine sed) 0 SEEN /hpf [facility] Nitrite Test strip Ql (U)Ord ered By: ED PROVIDER on 06-18-2022 Nitrite Ql (U) Negative Negative [facility] No Panel InformationOrdered By: Dr. Meyers on 06-18-2022 Estimated Creatinine Clearance Calc 31.41 ml/min [facility] Estimated GFR (MDRD) Amer 42 mL/min >60 [facility] Comment on above: GFR Calc Estimated GFR (MDRD) Non-Af Amer 35 mL/min >60 [facility] Comment on above: Non- GFR Calc 28.1 pg 27.0-32.0 [facility] 13.5 % 11.6-14.6 [facility] 42.7 fl 35.1-43.9 [facility] 2.300 % 0.0-0.9 [facility] 0 % 0-5 [facility] 35 mL/min >60 [facility] 42 mL/min >60 [facility] 31.41 ml/min [facility] 17.9 RATIO 10-20 [facility] 19.0 mmol/L 21.0-32.0 [facility] Platelets bldOrdered By: Dr. Meyers on 06-18-2022 Platelets (Bld) [#/Vol] 462 10*3/uL 150-450 [facility] Protein Test strip Ql (U)Ord ered By: ED PROVIDER on 06-18-2022 Protein Ql (U) 30 mg/dl Negative [facility] Serum or plasma calcium arnold urement (mass/volume)Ordered By: Dr. Meyers on 06-18-2022 Calcium [Mass/Vol] 9.1 mg/dL 8.5-10.1 [facility] Serum or plasma creatinine m easurement (mass/volume)Ordered By: Dr. Meyers on 06-18-2022 Creatinine [Mass/Vol] 1.56 mg/dL 0.55-1.02 [facility] Comment on above: The validity of the calculated GFR & GFRAA in patients over 70 years has not been determined. Clinical correlation is essential. Serum or plasma urea nitroge n measurement (mass/volume)Ordered By: Dr. Meyers on 06-18-2022 Urea nitrogen [Mass/Vol] 28 mg/dL 7-18 [facility] Squamous epithelial cells de tection in urine sediment by light microscopyOrdered By: ED PROVIDER on 06-18-2022 Epithelial cells.squamous LM Ql (Urine sed) 0-5 SEEN /hpf 5-10 [facility] Thin prep Papanicolaou smear with manual screeningOrdered By: Dr. Meyers on 06-18-2022 Thin prep Papanicolaou smear with manual screening 12 5-15 [facility] Urine blood detectionOrdered By: ED PROVIDER on 06-18-2022 RBC Ql (U) 150 /ul Negative [facility] RBC Ql (U) 5-10 SEEN /hpf 0-5 [facility] Urine clarityOrdered By: ED PROVIDER on 06-18-2022 Clarity (U) Clear Clear [facility] Urine color determinationOrd ered By: ED PROVIDER on 06-18-2022 Color (U) Straw Yellow [facility] Urine glucose detectionOrder ed By: ED PROVIDER on 06-18-2022 Glucose Ql (U) 1000 mg/dl Normal [facility] Urine leukocyte esterase det ection by dipstickOrdered By: ED PROVIDER on 06-18-2022 Leukocyte esterase Test strip Ql (U) 25 /ul Negative [facility] Urine pHOrdered By: ED PROVI VIV on 06-18-2022 pH (U) 6.5 [pH] 5.0 - 8.0 [facility] Urine sediment bacteria coun t by microscopy (number/high power field)Ordered By: ED PROVIDER on 06-18-2022 Bacteria LM.HPF (Urine sed) [#/Area] RARE /hpf None Seen [facility] Urine specific gravity measu rementOrdered By: ED PROVIDER on 06-18-2022 Specific gravity (U) [Rel density] 1.010 1.002-1.030 [facility] Urobilinogen Auto test strip Ql (U)Ordered By: ED PROVIDER on 06-18-2022 Urobilinogen Ql (U) Normal mg/dl Normal [facility] LG Jt Injection/Arthrocentes is: Laura whitlock 05-25-2022 Eliecer Hill CNP 05/25/2022 11:56 AM LG Jt Injection/Arthrocentesi s: R knee Performed by: Eliecer Hill CNP Authorized by: Eliecer Hill CNP CPT 67227 - Large Joint Arthrocentesis: Consent given by: Patient Time out: Immediately prior to the procedure a time out was called Physician or proceduralist has discussed critical or nonroutine steps, procedure duration and anticipated blood loss: Yes Supporting Documentation: Indications: Pain, joint swelling and diagnostic evaluation Procedure Details: Location: Knee Site: R knee Prep: patient was prepped and draped in usual sterile fashion Needle size: 22 G Approach: Anterolateral Medications: 40 mg triamcinolone acetonide 40 mg/mL Anesthetic used: Lidocaine 1% Anesthetic amount (mL): 2 Patient tolerance: Patient tolerated the procedure well with no immediate complications [facility] Glucose (Bld) [Mass/Vol]on 0 05-09-2022 Glucose [Mass/Vol] 215 mg/dL High 65 - 99 mg/dL [facility] Interpretation and review of laboratory results Abnormal [facility] Glucose [Mass/Vol] 193 mg/dL High 65 - 99 mg/dL [facility] Interpretation and review of laboratory results Abnormal [facility] XR Chest AP/PA and LATon Lungs are clear. Workstation ID: [id number] Breaker RIS EXAMINATION: XR CHEST AP/PA AND LAT 05/09/2022 7:37 am HISTORY: ORDERING SYSTEM PROVIDED HISTORY: status post device implant, TECHNOLOGIST PROVIDED HISTORY: Illness/Other Reason for exam: status post device implant Cancer History: u Surgery, RadiationHistory: u Encounter Type: Unknown Additional signs and symptoms: ORDERING SYSTEM PROVIDED DIAGNOSIS CODES: T82.9XXA Complication associated with cardiac pacemaker lead, initial encounter R55 Near syncope R42 Orthostatic dizziness R77.8 Elevated troponin N18.31 Stage 3a chronic kidney disease (HCC) T82.9XXA Pacemaker complications, initial encounter R55 Syncope, cardiogenic COMPARISON: Chest radiograph May 08, 2022. FINDINGS: The cardiomediastinal silhouette is unchanged with left chest pacemaker again noted. The lung cheney are aerated. The costophrenic angles are sharp. There is no evidence of pneumothorax. No acute osseous abnormality. GE RIS To, Tad Cabrera MD - 05/09/2022 EXAMINATION: XR CHEST AP/PA AND LAT 05/09/2022 7:37 am HISTORY: ORDERING SYSTEM PROVIDED HISTORY: status post device implant, TECHNOLOGIST PROVIDED HISTORY: Illness/Other Reason for exam: status post device implant Cancer History: u Surgery, RadiationHistory: u Encounter Type: Unknown Additional signs and symptoms: ORDERING SYSTEM PROVIDED DIAGNOSIS CODES: T82.9XXA Complication associated with cardiac pacemaker lead, initial encounter R55 Near syncope R42 Orthostatic dizziness R77.8 Elevated troponin N18.31 Stage 3a chronic kidney disease (HCC) T82.9XXA Pacemaker complications, initial encounter R55 Syncope, cardiogenic COMPARISON: Chest radiograph May 08, 2022. FINDINGS: The cardiomediastinal silhouette is unchanged with left chest pacemaker again noted. The lung cheney are aerated. The costophrenic angles are sharp. There is no evidence of pneumothorax. No acute osseous abnormality. IMPRESSION: Lungs are clear. Workstation ID: [id number] [facility] Radiology Study observation (narrative) [place] XR Chest AP/PA and LATOrdere d By: Tad Davies on 05-09-2022 [facility] Work Phone: Basic metabolic 2000 panelon 05-08-2022 Anion gap [Moles/Vol] 15 mmol/L 10 - 2 0 mmol/L [facility] Calcium [Mass/Vol] 9.7 mg/dL 8.4 - 10. 2 mg/dL [facility] Chloride [Moles/Vol] 106 mmol/L 98 - 10 8 mmol/L [facility] Creatinine [Mass/Vol] 0.90 mg/dL 0.60 - 1.20 mg/dL [facility] GFR/1.73 sq M.predicted CKD-EPI (S/P/Bld) [Vol rate/Area] 69 - PINF [facility] Comment on above: Estimated GFR was ca lculated using the 2020 CKD-EPI creatinine equation. Glucose [Mass/Vol] 89 mg/dL 65 - 99 mg/dL [facility] HCO3 [Moles/Vol] 25 mmol/L 21 - 32 mmol/L [facility] Interpretation and review of laboratory results Normal [facility] Potassium [Moles/Vol] 4.0 mmol/L 3.5 - 5.1 mmol/L [facility] Sodium [Moles/Vol] 142 mmol/L 135 - 145 mmol/L [facility] Urea nitrogen [Mass/Vol] 15 mg/dL 8 - 25 mg/dL [facility] Urea nitrogen/Creatinine [Mass ratio] 16.7 mg/mg 10 - 20 [facility] y Services has implemented the eGFR calculation approach that does not have a coefficient for race that conforms to the NKF-ASN Task Force Recommendations. [facility] CBC Auto Differentialon 09-0 Basophils (Bld) [#/Vol] 0.08 10*3/uL [facility] Basophils/100 WBC (Bld) 0.7 % [facility] Eosinophils (Bld) [#/Vol] 0.58 10*3/uL High [facility] Eosinophils/100 WBC (Bld) 4.7 % [facility] Erythrocyte distribution width (RBC) [Entitic vol] 13.7 % 11.6 - 14.8 % [facility] Hematocrit (Bld) [Volume fraction] 40.1 % 36 - 46 % [facility] Hemoglobin (Bld) [Mass/Vol] 12.9 g/dL 12 - 16 g/dL [facility] Immature granulocytes (Bld) [#/Vol] 0.18 10*3/uL [facility] Immature granulocytes/100 WBC (Bld) 1.50 % [facility] Comment on above: The IG parameter is the percentage of metamyelocytes, myelocytes and promyelocytes. An immature granulocyte count (IG) of 1% or more suggests the possibility of infection, an IG count of 3% is very likely related to an infection. Interpretation and review of laboratory results Abnormal [facility] Lymphocytes (Bld) [#/Vol] 3.30 10*3/uL [facility] Lymphocytes/100 WBC (Bld) 26.9 % [facility] MCH (RBC) [Entitic mass] 28.9 pg 26 - 34 pg [facility] MCHC (RBC) [Mass/Vol] 32.2 g/dL 31 - 3 7 g/dL [facility] MCV (RBC) [Entitic vol] 89.7 fL 80 - 100 fL [facility] Monocytes (Bld) [#/Vol] 0.96 10*3/uL High [facility] Monocytes/100 WBC (Bld) 7.8 % [facility] Neutrophils (Bld) [#/Vol] 7.19 10*3/uL High [facility] Neutrophils/100 WBC (Bld) 58.4 % [facility] Nucleated RBC (Bld) [#/Vol] 0.00 10*3/uL [facility] Nucleated RBC/100 WBC (Bld) [Ratio] 0.0 % [facility] Platelet mean volume (Bld) [Entitic vol] 9.2 fL Low 9.4 - 12.4 fL [facility] Platelets (Bld) [#/Vol] 341 10*3/uL [facility] RBC (Bld) [#/Vol] 4.47 10*6/uL [facility] ealth WBC (Bld) [#/Vol] 12.29 10*3/uL [facility] EKGon 05-08-2022 Ordered by an unspecified provider. [facility] EKG 12-leadon 05-08-2022 Atrial Rate 90 BPM [facility] P Witherbee 45 degrees [facility] P-R Interval 164 ms [facility] Q-T Interval 372 ms [facility] QRS Duration 70 ms [facility] QTC Calculation (Bezet) 455 [facility] [place] -6 degrees [facility] T Witherbee 30 degrees [facility] Ventricular Rate 90 BPM [facility] Normal sinus rhythm Normal ECG Confirmed by Uvaldo Espinosa M.D. ([id number]) on 05/08/2022 6:45:08 AM [facility] EP Studyon 05-08-2022 Table formatting fro m the original result was not included. Indication: RV lead malfunction, Syncope Procedures Performed: RV lead revision Conclusions / Diagnosis: Successful implantation of new RV lead on the preexisting left-sided dual chamber device which is MRI compatible access was obtained for the RV lead revision via axillary vein with good acute lead parameters and no apparent complications Comments: ASA Classification: II Sedation Plan: Moderate. Sedation plan completed and reviewed with team prior to sedation. ASA status unchanged immediately prior to sedation administration. Heart, lungs and airway assessed prior to sedation. Technique: Informed consent was obtained. Risks of the procedure have been previously reviewed. Knowing these risks, and that alternatives to the procedure were available, including doing nothing, the patient chose to undergo the procedure. All questions were addressed prior to signing the consent. The patient was brought to the Electrophysiology Laboratory in the fasting state, having received Clindamycin for antibiotic prophylaxis. A preimplant venogram was completed with 10 cc of omnipaque showing patency of the subclavian vein. The left chest and neck were prepped and draped in the usual sterile fashion. The skin and subcutaneous tissue of the left chest was anesthetized with 2% lidocaine over the existing generator. A incision was made over the preexisting generator using a scalpel. Using plasma blade bovie, sharp and blunt dissection the pre-existing generator and leads were removed from its pocket. Next the RV lead was freed from any tissue adhesions. After this an axillary venous access was obtained using a Cook needle and 1 guidewire was placed into the inferior vena cava with fluoroscopic views. 1 peel-away sheath was inserted into the vein over the guidewire. The new ventricular lead was placed in the region of the RV septum under fluoroscopic guidance using preformed stylette's. A steep TERRIE fluoroscopy image was obtained to appreciate the septal positioning of the RV lead. After this ventricular lead impedance electrode gram amplitude, and pacing thresholds were measured and found to be satisfactory. Next 10 V pacing was performed to ensure no diaphragmatic capture none was noted. The ventricular lead was anchored to the prepectoral fascia with 2 Ethibond ties. Next the existing RV lead suture sleeve was freed up. A stylette was placed down to the RV tip. After the helix was completely retracted. A gentle traction pulled the RV lead completely out without any difficulty. There was some slack transition with the atrial lead so minor bit of slack was added to the atrial lead. The leads were then connected to the pulse generator, ensuring that the lead tip was advanced beyond the setscrew site and a tug test confirmed secure placement. After sponge count confirmation and hemostatic confirmation, the leads and pulse generator were coiled and placed into the pocket with a Tryx pouch. The pocket was copiously irrigated with antibiotic solution and hemostasis was obtained. Fluoroscopy confirmed adequate lead and pulse generator position. A fluoroscopic image of the final position of the pacemaker and the leads was taken. The pocket was then closed in three layers using 2-0, 3-0 and 4-0 running Vicryl and V-lock sutures. The wound was dressed with Steristrips and a cover bandage. There were no apparent complications. Estimated Blood Loss: <10ml. Complications: No immediate complications. Recommendations: Wound care. Return back to the floor. Atrial Lead sensing, impedance, threshold: 2.9 mV, 489 Ohms, 1.0V @ 0.4ms. Ventricular Lead sensing, impedance, threshold: 6.5 mV, 774 Ohms, 0.4 V @ 0.4ms Implants Pacemaker Pacer Mri [address] - [id number] - Existing Implant Inventory item: PACER MRI L[address] Model/Cat number: L311 Serial number: [id number] Machine Precision Etcher: JOAN EKATERINA Device identifier: [id number] Device identifier type: GS1 Implant Date: 12/15/2021 GUDID Information Request status Successful Brand name: ACCOLADE MRI DR Version/Model: L311 Company name: [employer] MRI safety info as of 12/15/21: MR Conditional Contains dry or latex rubber: No GMDN P.T. name: Dual-chamber implantable pacemaker, rate-responsive As of 05/08/2022 Status: Existing Implant Mode: DDD Lower Rate: 60 Upper Rate: 130 Antibiotic Pouch Envelope Anti-Bacterial Aigis/Tyrx Pacer Resorbable Mesh - [id number] - Implanted Inventory item: ENVELOPE ANTI-BACTERIAL AIGIS/TYRX PACER RESORBABLE MESH Model/Cat number: [id number] Machine Precision Etcher: [employer] Lot number: [id number] As of 05/08/2022 Status: Implanted Pacing Lead Lead Pacing [id number] Mri Ingevity Plus - [id number] - (more content not included)... GPX Software CV [facility] Radiology Study observation (narrative) [facility] Echocardiogram limited with contrastOrdered By: Jaguar Forbes on 05-08-2022 EF 67.3872 % [facility] Work Phone: [facility] Work Phone: Echocardiogram limited with contraston 05-08-2022 Patient Info Name: KRISTEN MANN Age: 72 years : 1950 Gender: Female Ht: 170 cm Wt: 90 kg BSA: 2.09 m2 HR: 79 bpm BP: 133 / 77 mmHg Exam Date: 05/08/2022 8:33 AM Patient Status: Inpatient Plant Changer: Harley Klein MHA, NENA Exam Type: ECHOCARDIOGRAM LIMITED WITH CONTRAST Study Info Indications I31.3 - Pericardial effusion (noninflammatory) - Other Attending Physician: PARESH OTT [id number] Primary Nurse: Chiki Rodriguez RN BMI: 31.01 kg/m2 Summary 1. Limited study to assess for pericardial effusion. 2. Left ventricular systolic function is normal, with ejection fraction estimated at 65 +/- 5%. 3. There is no pericardial effusion. 4. Compared to the prior study, no significant changes are noted. History/Risk Factors Dyslipidemia: Yes Chronic Lung Disease: Yes Diabetes Mellitus: Yes Tobacco Use: Never Cerebrovascular Disease: TIA Prior Interventions Pacemaker: Yes Procedure(s): Definity explained to patient. Patient verbalizes understanding and agrees to proceed. Definity 1.3ml/8.7ml normal sterile saline 2 ml total given IV over 30-60 seconds. Left Ventricle Left ventricular systolic function is normal, with ejection fraction estimated at 65 +/- 5%. Left ventricular segmental wall motion is normal. Right Ventricle Right ventricular size and systolic function are normal. Aortic Valve There is moderate aortic valve sclerosis. Pulmonic Valve Pulmonary valve is not well visualized. Mitral Valve Minimal mitral annular calcification. The mitral valve has thickened leaflets. Tricuspid Valve The tricuspid valve is not well visualized. Pericardium/Pleural There is no pericardial effusion. Mitral Valve - Name Value Normal - MV Doppler - MV PHT 64 ms MV Area (PHT) 3.5 cm2 4.0-5.0 MV Diastolic Function - MV E Peak Velocity 0.72 m/s MV A Peak Velocity 1.08 m/s MV E/A 0.7 MV Decel Time 219 ms MV Annular TDI - MV Septal e' Velocity 6.1 cm/s >=8.0 MV E/e' (Septal) 11.8 <=8.0 MV Lateral e' Velocity 8.1 cm/s >=10.0 MV E/e' (Lateral) 8.9 <=8.0 MV e' Average 7.10 cm/s MV E/e' (Average) 10.3 Ventricles - Name Value Normal - LV Fractional Shortening/Ejection Fraction 2D/MM - LV Diastolic Volume (4C MOD) 76 ml LV Diastolic Volume (2C MOD) 96 ml LV Diastolic Volume (BP MOD) 90 ml 46-106 LV Diastolic Volume Index (BP MOD) 43 ml/m2 29-61 LV Systolic Volume (BP MOD) 29 ml 14-42 LV Systolic Volume Index (BP MOD) 14 ml/m2 8-24 LV Diastolic Length (4C) 6.9 cm LV Systolic Length (4C) 6.0 cm LV End Diastolic Volume (BP A-L) 93 ml LV End Systolic Volume (BP A-L) 31 ml LV Stroke Volume (4C MOD) 47 ml RV Dimensions 2D/MM - TAPSE 1.0 cm >=1.7 Atria - Name Value Normal - LA Dimensions - LA Volume (4C A-L) 29 ml LA Volume (BP A-L) 31 ml LA Volume Index (BP A-L) 15 ml/m2 <=34 LA Volume (BP MOD) 29 ml LA Volume Index (BP MOD) 14 ml/m2 (more content not included)... Jaguar Fisher, DO - 05/08/2022 Patient Info Name: KRISTEN MANN Age: 72 years : 1950 Gender: Female Ht: 170 cm Wt: 90 kg BSA: 2.09 m2 HR: 79 bpm BP: 133 / 77 mmHg Exam Date: 05/08/2022 8:33 AM Patient Status: Inpatient Plant Changer: Harley Klein MHA, RDCS Exam Type: ECHOCARDIOGRAM LIMITED WITH CONTRAST Study Info Indications I31.3 - Pericardial effusion (noninflammatory) - Other Attending Physician: PARESH OTT [id number] Primary Nurse: Chiki Rodriguez RN BMI: 31.01 kg/m2 Summary 1. Limited study to assess for pericardial effusion. 2. Left ventricular systolic function is normal, with ejection fraction estimated at 65 +/- 5%. 3. There is no pericardial effusion. 4. Compared to the prior study, no significant changes are noted. History/Risk Factors Dyslipidemia: Yes Chronic Lung Disease: Yes Diabetes Mellitus: Yes Tobacco Use: Never Cerebrovascular Disease: TIA Prior Interventions Pacemaker: Yes Procedure(s): Definity explained to patient. Patient verbalizes understanding and agrees to proceed. Definity 1.3ml/8.7ml normal sterile saline 2 ml total given IV over 30-60 seconds. Left Ventricle Left ventricular systolic function is normal, with ejection fraction estimated at 65 +/- 5%. Left ventricular segmental wall motion is normal. Right Ventricle Right ventricular size and systolic function are normal. Aortic Valve There is moderate aortic valve sclerosis. Pulmonic Valve Pulmonary valve is not well visualized. Mitral Valve Minimal mitral annular calcification. The mitral valve has thickened leaflets. Tricuspid Valve The tricuspid valve is not well visualized. Pericardium/Pleural There is no pericardial effusion. Mitral Valve - Name Value Normal - MV Doppler - MV PHT 64 ms MV Area (PHT) 3.5 cm2 4.0-5.0 MV Diastolic Function - MV E Peak Velocity 0.72 m/s MV A Peak Velocity 1.08 m/s MV E/A 0.7 MV Decel Time 219 ms MV Annular TDI - MV Septal e' Velocity 6.1 cm/s >=8.0 MV E/e' (Septal) 11.8 <=8.0 MV Lateral e' Velocity 8.1 cm/s >=10.0 MV E/e' (Lateral) 8.9 <=8.0 MV e' Average 7.10 cm/s MV E/e' (Average) 10.3 Ventricles - Name Value Normal - LV Fractional Shortening/Ejection Fraction 2D/MM - LV Diastolic Volume (4C MOD) 76 ml LV Diastolic Volume (2C MOD) 96 ml LV Diastolic Volume (BP MOD) 90 ml 46-106 LV Diastolic Volume Index (BP MOD) 43 ml/m2 29-61 LV Systolic Volume (BP MOD) 29 ml 14-42 LV Systolic Volume Index (BP MOD) 14 ml/m2 8-24 LV Diastolic Length (4C) 6.9 cm LV Systolic Length (4C) 6.0 cm LV End Diastolic Volume (BP A-L) 93 ml LV End Systolic Volume (BP A-L) 31 ml LV Stroke Volume (4C MOD) 47 ml RV Dimensions 2D/MM - TAPSE 1.0 cm >=1.7 Atria - Name Value Normal - LA Dimensions - LA Volume (4C A-L) 29 ml LA Volume (BP A-L) 31 ml LA Volume Index (BP A-L) 15 ml/m2 <=34 LA Volume (BP MOD) 29 ml LA Volume Index (BP MOD) 14 ml/m2 16-34 Report Signatures Finalized by Jaguar Sheehan) Leidy CHAVEZ on 05/08/2022 09:08 AM [facility] Radiology Study observation (narrative) [facility] Glucose (Bld) [Mass/Vol]on 0 05-08-2022 Glucose [Mass/Vol] 150 mg/dL High 65 - 99 mg/dL [facility] Interpretation and review of laboratory results Abnormal [facility] Glucose [Mass/Vol] 134 mg/dL High 65 - 99 mg/dL [facility] Interpretation and review of laboratory results Abnormal [facility] Glucose [Mass/Vol] 166 mg/dL High 65 - 99 mg/dL [facility] Interpretation and review of laboratory results Abnormal [facility] Glucose [Mass/Vol] 128 mg/dL High 65 - 99 mg/dL [facility] Interpretation and review of laboratory results Abnormal [facility] Glucose [Mass/Vol] 127 mg/dL High 65 - 99 mg/dL [facility] Interpretation and review of laboratory results Abnormal [facility] XR Chest 1 Viewon 05-08-2022 No acute disease Workstation ID: [id number] Gabstr EXAMINATION: XR CHEST PA/AP 05/08/2022 1:27 pm HISTORY: ORDERING SYSTEM PROVIDED HISTORY: status post device implant, TECHNOLOGIST PROVIDED HISTORY: Illness/Other Reason for exam: status post device implant Cancer History: u Surgery, RadiationHistory: u Encounter Type: Initial Additional signs and symptoms: ORDERING SYSTEM PROVIDED DIAGNOSIS CODES: T82.9XXA Complication associated with cardiac pacemaker lead, initial encounter R55 Near syncope R42 Orthostatic dizziness R77.8 Elevated troponin N18.31 Stage 3a chronic kidney disease (HCC) T82.9XXA Pacemaker complications, initial encounter R55 Syncope, cardiogenic COMPARISON: 05/07/2022 FINDINGS: LUNGS: No significant pulmonary parenchymal abnormalities. Calcified tracheobronchial tree VASCULATURE: No increased pulmonary vasculature. PLEURA: No pneumothorax, effusion, or pleural thickening. CARDIAC: No cardiomegaly or cardiac silhouette abnormality. MEDIASTINUM: No visible mass or adenopathy. Left bipolar pacemaker BONES: No fracture or visible bone lesion. OTHER: Negative. Tad Manzo MD - 05/08/2022 EXAMINATION: XR CHEST PA/AP 05/08/2022 1:27 pm HISTORY: ORDERING SYSTEM PROVIDED HISTORY: status post device implant, TECHNOLOGIST PROVIDED HISTORY: Illness/Other Reason for exam: status post device implant Cancer History: u Surgery, RadiationHistory: u Encounter Type: Initial Additional signs and symptoms: ORDERING SYSTEM PROVIDED DIAGNOSIS CODES: T82.9XXA Complication associated with cardiac pacemaker lead, initial encounter R55 Near syncope R42 Orthostatic dizziness R77.8 Elevated troponin N18.31 Stage 3a chronic kidney disease (HCC) T82.9XXA Pacemaker complications, initial encounter R55 Syncope, cardiogenic COMPARISON: 05/07/2022 FINDINGS: LUNGS: No significant pulmonary parenchymal abnormalities. Calcified tracheobronchial tree VASCULATURE: No increased pulmonary vasculature. PLEURA: No pneumothorax, effusion, or pleural thickening. CARDIAC: No cardiomegaly or cardiac silhouette abnormality. MEDIASTINUM: No visible mass or adenopathy. Left bipolar pacemaker BONES: No fracture or visible bone lesion. OTHER: Negative. IMPRESSION: No acute disease Workstation ID: [id number] [facility] Radiology Study observation (narrative) [facility] 1 ViewOrdered By: Suzy Salazar on 05-08-2022 [facility] Work Phone: Basic metabolic 1998 panelon 05-07-2022 Anion gap [Moles/Vol] 19 mmol/L 10 - 2 0 mmol/L [facility] Chloride [Moles/Vol] 104 mmol/L 98 - 10 8 mmol/L [facility] Creatinine [Mass/Vol] 1.11 mg/dL 0.60 - 1.20 mg/dL [facility] GFR/1.73 sq M.predicted CKD-EPI (S/P/Bld) [Vol rate/Area] 54 Low - PINF [facility] Comment on above: Estimated GFR was ca lculated using the 2020 CKD-EPI creatinine equation. Glucose [Mass/Vol] 142 mg/dL High 65 - 99 mg/dL [facility] HCO3 [Moles/Vol] 21 mmol/L 21 - 32 mmol/L [facility] Interpretation and review of laboratory results Abnormal [facility] Potassium [Moles/Vol] 4.3 mmol/L 3.5 - 5.1 mmol/L [facility] Sodium [Moles/Vol] 140 mmol/L 135 - 145 mmol/L [facility] Urea nitrogen [Mass/Vol] 16 mg/dL 8 - 25 mg/dL [facility] Urea nitrogen/Creatinine [Mass ratio] 14.4 mg/mg 10 - 20 [facility] Labor[facility] y Services has implemented the eGFR calculation approach that does not have a coefficient for race that conforms to the NKF-ASN Task Force Recommendations. [facility] CBC Auto Differentialon Basophils (Bld) [#/Vol] 0.08 10*3/uL [facility] Basophils/100 WBC (Bld) 0.7 % [facility] Eosinophils (Bld) [#/Vol] 0.33 10*3/uL [facility] Eosinophils/100 WBC (Bld) 3.0 % [facility] Erythrocyte distribution width (RBC) [Entitic vol] 13.9 % 11.6 - 14.8 % [facility] Hematocrit (Bld) [Volume fraction] 39.9 % 36 - 46 % [facility] Hemoglobin (Bld) [Mass/Vol] 12.6 g/dL 12 - 16 g/dL [facility] Immature granulocytes (Bld) [#/Vol] 0.15 10*3/uL [facility] Immature granulocytes/100 WBC (Bld) 1.40 % [facility] Comment on above: The IG parameter is the percentage of metamyelocytes, myelocytes and promyelocytes. An immature granulocyte count (IG) of 1% or more suggests the possibility of infection, an IG count of 3% is very likely related to an infection. Interpretation and review of laboratory results Abnormal [facility] Lymphocytes (Bld) [#/Vol] 2.04 10*3/uL [facility] Lymphocytes/100 WBC (Bld) 18.7 % [facility] MCH (RBC) [Entitic mass] 29.0 pg 26 - 34 pg [facility] MCHC (RBC) [Mass/Vol] 31.6 g/dL 31 - 3 7 g/dL [facility] MCV (RBC) [Entitic vol] 91.7 fL 80 - 100 fL [facility] Monocytes (Bld) [#/Vol] 0.97 10*3/uL High [facility] Monocytes/100 WBC (Bld) 8.9 % [facility] Neutrophils (Bld) [#/Vol] 7.36 10*3/uL High [facility] Neutrophils/100 WBC (Bld) 67.3 % [facility] Nucleated RBC (Bld) [#/Vol] 0.00 10*3/uL [facility] Nucleated RBC/100 WBC (Bld) [Ratio] 0.0 % [facility] Platelet mean volume (Bld) [Entitic vol] 9.3 fL Low 9.4 - 12.4 fL [facility] Platelets (Bld) [#/Vol] 328 10*3/uL [facility] RBC (Bld) [#/Vol] 4.35 10*6/uL [facility] ealth WBC (Bld) [#/Vol] 10.93 10*3/uL [facility] Glucose (Bld) [Mass/Vol]on 0 05-07-2022 Glucose [Mass/Vol] 116 mg/dL High 65 - 99 mg/dL [facility] Interpretation and review of laboratory results Abnormal [facility] Gold Topon 05-07-2022 Extra Tube Hold for add-ons. [facility] Comment on above: Auto resulted. No Panel Informationon 05-07 Extra Tube Hold for add-ons. [facility] Comment on above: Auto resulted. [facility] Troponin x 2 (Now and Repeat in 3 hours)Ordered By: Behzad James on 05-07-2022 Delta Difference Troponin T -6 ng/L < = -/+ 7 change [facility] Interp Troponin T Delta Change Probable non-acute cardiac injury or late presentation of acute injury. [facility] Interpretation and review of laboratory results Abnormal [facility] Troponin T 28 ng/L Critically high NINF - 14 ng/L [facility] Troponin x 2 (Now and Repeat in 3 hours)Ordered By: Edilberto Nicole on 05-07-2022 Interpretation and review of laboratory results Abnormal [facility] Troponin T 34 ng/L Critically high NINF - 14 ng/L [facility] Troponin T Interpretation Possible acute cardiac injury. [facility] XR Chest 1 Viewon 05-07-2022 No radiographic evidence for acute cardiopulmonary disease on this single view of the chest. Workstation ID: [id number] [id number] EXAMINATION: XR CHEST PA/AP 06/21/2021 1:19 pm HISTORY: ORDERING SYSTEM PROVIDED HISTORY: Chest pain rule out pneumonia, TECHNOLOGIST PROVIDED HISTORY: Illness/Other Reason for exam: Chest pain rule out pneumonia Cancer History: no Surgery, RadiationHistory: no heart/lung surg Encounter Type: Unknown Additional signs and symptoms: unknown ORDERING SYSTEM PROVIDED DIAGNOSIS CODES: COMPARISON: Chest x-ray dated 12/30/2021 FINDINGS: The heart size is normal. Cardiac pacemaker is seen in place. No dense focal consolidation, pneumothorax or pleural effusion is seen on this single view of the chest. No acute osseous abnormality is seen. Choco Leal MD - 05/07/2022 EXAMINATION: XR CHEST PA/AP 06/21/2021 1:19 pm HISTORY: ORDERING SYSTEM PROVIDED HISTORY: Chest pain rule out pneumonia, TECHNOLOGIST PROVIDED HISTORY: Illness/Other Reason for exam: Chest pain rule out pneumonia Cancer History: no Surgery, RadiationHistory: no heart/lung surg Encounter Type: Unknown Additional signs and symptoms: unknown ORDERING SYSTEM PROVIDED DIAGNOSIS CODES: COMPARISON: Chest x-ray dated 12/30/2021 FINDINGS: The heart size is normal. Cardiac pacemaker is seen in place. No dense focal consolidation, pneumothorax or pleural effusion is seen on this single view of the chest. No acute osseous abnormality is seen. IMPRESSION: No radiographic evidence for acute cardiopulmonary disease on this single view of the chest. Workstation ID: [id number] [facility] Radiology Study observation (narrative) [place] XR Chest 1 ViewOrdered By: Annie Mullins on 05-07-2022 [facility] Work Phone: LG Jt Injection/Arthrocentes is: R kneeon 02-12-2022 Eliecer Hill CNP 02/12/2022 4:05 PM LG Jt Injection/Arthrocentesi s: R knee Date/Time: 02/12/2022 4:04 PM Performed by: Eliecer Hill CNP Authorized by: Eliecer Hill CNP CPT 42370 - Large Joint Arthrocentesis: Consent given by: Patient Time out: Immediately prior to the procedure a time out was called Physician or proceduralist has discussed critical or nonroutine steps, procedure duration and anticipated blood loss: Yes Supporting Documentation: Indications: Pain, joint swelling and diagnostic evaluation Procedure Details: Location: Knee Site: R knee Prep: patient was prepped and draped in usual sterile fashion Needle size: 22 G Approach: Anterolateral Medications: 40 mg triamcinolone acetonide 40 mg/mL Anesthetic used: Lidocaine 1% Anesthetic amount (mL): 2 Patient tolerance: Patient tolerated the procedure well with no immediate complications [facility] Gram stain for investigation of transfusion reactionon 02-10-2022 Microscopic observation Gram stain Nom (Unsp spec) [facility] Work Phone: LG Jt Injection/Arthrocentes is: R glenohumeralon 01-08-2022 Eliecer Hill CNP 01/08/2022 4:42 PM LG Jt Injection/Arthrocentesi s: R glenohumeral Performed by: Eliecer Hill CNP Authorized by: Eliecer Hill CNP CPT 40564 - Large Joint Arthrocentesis: Consent given by: Patient Time out: Immediately prior to the procedure a time out was called Physician or proceduralist has discussed critical or nonroutine steps, procedure duration and anticipated blood loss: Yes Supporting Documentation: Indications: Pain and diagnostic evaluation Procedure Details: Location: Shoulder Site: R glenohumeral Prep: patient was prepped and draped in usual sterile fashion Needle size: 22 G Approach: Posterior Medications: 40 mg triamcinolone acetonide 40 mg/mL Anesthetic amount (mL): 2 Patient tolerance: Patient tolerated the procedure well with no immediate complications [facility] Echocardiogram limitedon Patient Info Name: KRISTEN MANN Age: 71 years : 1950 Gender: Female Ht: 168 cm Wt: 88 kg BSA: 2.06 m2 HR: 107 bpm BP: 134 / 77 mmHg Heart Rhythm: Sinus Rhythm Technical Quality: Fair Exam Date: 12/23/2021 2:05 PM Patient Status: Outpatient Plant Changer: Verna Desir RCDS Exam Type: ECHOCARDIOGRAM LIMITED Study Info Indications I31.3 - Pericardial effusion (noninflammatory) Referring Physician: LENARD DAS ; [id number] BMI: 31.47 kg/m2 Summary 1. A Limited transthoracic echocardiographic study was performed to reassess pericardial effusion. Complete Doppler exam was not performed. 2. Prominent epicardial fat. No hemodynamically significant pericardial effusion. 3. Device wires are visualized within the right atrium and right ventricle. 4. Compared to echo from 11/21/2021, there has been no significant change. History/Risk Factors Dyslipidemia: Yes Chronic Lung Disease: Yes Tobacco Use: Never Cerebrovascular Disease: TIA Prior Interventions Pacemaker: Yes Procedure(s): A Limited transthoracic echocardiographic study was performed to reassess pericardial effusion. Complete Doppler exam was not performed. Left Ventricle Left ventricular chamber dimension is normal. Hyperdynamic systolic function with estimated LVEF greater than 65%. Right Ventricle Right ventricular chamber dimension is enlarged. Right ventricular systolic function is Empty. Left Atria Left atrial chamber dimension is enlarged. Right Atria Right atrial chamber dimension is enlarged. Aortic Valve Mildly thickened/calcified trileaflet aortic valve. Pulmonic Valve The pulmonic valve is normal. Mitral Valve The mitral valve has normal leaflets. Inferior Vena Cava Normal caliber IVC. Tricuspid Valve - Name Value Normal - TV Regurgitation Doppler - TR Peak Velocity 2.73 m/s TR Peak Gradient 30 mmHg Estimated PAP/RSVP - RA Pressure 3 mmHg <=5 PA Systolic Pressure 33 mmHg <=36 RV Systolic Pressure 33 mmHg <36 Report Signatures Finalized by Patricia Dowilng MD on 12/23/2021 03:01 PM FUJI SYNAPSE CV Nitesh, Patricia Tan MD - 12/23/2021 Patient Info Name: KRISTEN MANN Age: 71 years : 1950 Gender: Female Ht: 168 cm Wt: 88 kg BSA: 2.06 m2 HR: 107 bpm BP: 134 / 77 mmHg Heart Rhythm: Sinus Rhythm Technical Quality: Fair Exam Date: 12/23/2021 2:05 PM Patient Status: Outpatient Plant Changer: Verna Desir RCDS Exam Type: ECHOCARDIOGRAM LIMITED Study Info Indications I31.3 - Pericardial effusion (noninflammatory) Referring Physician: LENARD DAS ; [id number] BMI: 31.47 kg/m2 Summary 1. A Limited transthoracic echocardiographic study was performed to reassess pericardial effusion. Complete Doppler exam was not performed. 2. Prominent epicardial fat. No hemodynamically significant pericardial effusion. 3. Device wires are visualized within the right atrium and right ventricle. 4. Compared to echo from 11/21/2021, there has been no significant change. History/Risk Factors Dyslipidemia: Yes Chronic Lung Disease: Yes Tobacco Use: Never Cerebrovascular Disease: TIA Prior Interventions Pacemaker: Yes Procedure(s): A Limited transthoracic echocardiographic study was performed to reassess pericardial effusion. Complete Doppler exam was not performed. Left Ventricle Left ventricular chamber dimension is normal. Hyperdynamic systolic function with estimated LVEF greater than 65%. Right Ventricle Right ventricular chamber dimension is enlarged. Right ventricular systolic function is Empty. Left Atria Left atrial chamber dimension is enlarged. Right Atria Right atrial chamber dimension is enlarged. Aortic Valve Mildly thickened/calcified trileaflet aortic valve. Pulmonic Valve The pulmonic valve is normal. Mitral Valve The mitral valve has normal leaflets. Inferior Vena Cava Normal caliber IVC. Tricuspid Valve - Name Value Normal - TV Regurgitation Doppler - TR Peak Velocity 2.73 m/s TR Peak Gradient 30 mmHg Estimated PAP/RSVP - RA Pressure 3 mmHg <=5 PA Systolic Pressure 33 mmHg <=36 RV Systolic Pressure 33 mmHg <36 Report Signatures Finalized by Patricia Dowling MD on 12/23/2021 03:01 PM [place] Echocardiogram limitedOrdere d By: Patricia Dowling on 12-23-2021 [facility] Work Phone: Office Visit (Urology)on Follow-up visit Diagnoses/Problems Assessed Nocturia (788.43) (R35.1) Recurrent UTI (599.0) (N39.0) SHREYA (stress urinary incontinence, female) (625.6) (N39.3) Patient Discussion/Summary Treatment options for LUTS reviewed Discussed timed voiding. Discussed fluid and caffeine intake Pelvic floor exercises discussed. Pros/cons of PT discussed.. Questions answered Lifestyle change to help prevent UTIs discussed. Encouraged fluid intake. Change prophylaxis to Trimethoprim QD f/u 6 months with UA Chief Complaint An interactive audio and video telecommunication system which permits real time communications between the patient (at the originating site) and provider (at the distant site) was utilized to provide this telehealth service. Verbal consent was requested and obtained from KRISTEN MANN on this date, 12/17/2021 10:15 AM , for a telehealth visit. f/u History of Present IllnessChronic hx of UTI's...No recent sx..She does take Macrodantin 50mg daily. She has been on this for awhile. ...Chronic incontinence...urgency and frequency...no dysuria..No hematuria...Nocturia 1x...caffeine does worsen sx...SHREYA sx are mild. No medication for LUT'S. Review of Systems Constitutional: No fever, No chills Eye: glasses Respiratory: No shortness of breath, No cough. Cardiovascular: No chest pain Gastrointestinal: No nausea Genitourinary: Negative except as documented in history of present illness. Hematology/Lymphatics: Patient denies being on blood thinners.. Endocrine: Negative. Immunologic: Not immunocompromised. Musculoskeletal: back pain Integumentary: Negative. Neurologic: Alert and oriented X4. Psychiatric: Negative. Active Problems Problems Closed fracture of tibial plateau with routine healing, right (V54.16) (S82.141D) Decreased ROM of right knee (719.56) (M25.661) Gait difficulty (781.2) (R26.9) Localized osteoarthritis of knees, bilateral (715.36) (M17.0) Nocturia (788.43) (R35.1) Recurrent UTI (599.0) (N39.0) Right knee pain (719.46) (M25.561) SHREYA (stress urinary incontinence, female) (625.6) (N39.3) Past Medical History Problems History of diabetes mellitus (V12.29) (Z86.39) Surgical History Problems No history of surgery Family History Mother Family history of HTN (hypertension), benign Father Family history of HTN (hypertension), benign Social History Problems Never smoked tobacco (V49.89) (Z78.9) Allergies Medication morphine Allergy; Updated By: Tianna Mixon; 10/24/2019 3:41:26 PM Penicillins Allergy; Updated By: Tianna Mixon; 10/24/2019 3:41:26 PM sulfa Allergy; Updated By: Tianna Mixon; 10/24/2019 3:41:26 PM Current Meds Medication NameInstruction Nitrofurantoin Macrocrystal 50 MG Oral CapsuleTAKE 1 CAPSULE Daily Trimethoprim 100 MG Oral Tablettake 1 tablet by mouth once daily for 30 DAYS Physical Exam No physical exam done given the virtual nature of the visit Signatures Electronically signed by : Behzad Whitaker II, MD; Dec 17 2021 10:17AM EST (Author) Normal Avenue Right No Panel InformationOrdered By: Ann Hernandes on 11-20-2021 Atrial Rate [facility] P [place] [facility] P-R Interval [facility] Q-T Interval [facility] Q-T Interval (corrected) [facility] QRS Duration [facility] QTC Calculation (Bezet) [facility] R [place] [facility] T [place] [facility] Ventricular Rate [facility] ECG 12 Leadon 10-14-2021 Atrial Rate [facility] P [place] [facility] P-R Interval [facility] Q-T Interval [facility] Q-T Interval (corrected) [facility] QRS Duration [facility] QTC Calculation (Bezet) [facility] R [place] [facility] T [place] [facility] Ventricular Rate [facility] Hemoglobin A1con 09-26-2021 Glucose [Mass/Vol] 200 mg/dL Normal [facility] Comment on above: Performed By: #### H BA1C #### [facility] Routine Lab [address], [place] [address] HbA1c (Bld) [Mass fraction] 8.6 % High 4.3-5.6 [facility] Comment on above: Performed By: #### H BA1C #### [facility] Routine Lab [address], [place] [address] LG Jt Injection/Arthrocentes is: L greater trochanteric bursaon 09-15-2021 Eliecer Hill CNP 09/15/2021 2:05 PM LG Jt Injection/Arthrocentesi s: L greater trochanteric bursa Performed by: Eliecer Hill CNP Authorized by: Eliecer Hill CNP CPT 77785 - Large Joint Arthrocentesis: Consent given by: Patient Time out: Immediately prior to the procedure a time out was called Physician or proceduralist has discussed critical or nonroutine steps, procedure duration and anticipated blood loss: Yes Supporting Documentation: Indications: Diagnostic evaluation and pain Procedure Details: Location: Hip Site: L greater trochanteric bursa Prep: patient was prepped and draped in usual sterile fashion Needle size: 22 G Medications: 40 mg triamcinolone acetonide 40 mg/mL Anesthetic used: Lidocaine 1% Anesthetic amount (mL): 2 Patient tolerance: Patient tolerated the procedure well with no immediate complications [facility] LG Jt Injection/Arthrocentes is: R greater trochanteric bursaon 09-15-2021 Eliecer Hill CNP 09/15/2021 2:05 PM LG Jt Injection/Arthrocentesi s: R greater trochanteric bursa Performed by: Eliecer Hill CNP Authorized by: Eliecer Hill CNP CPT 36781 - Large Joint Arthrocentesis: Consent given by: Patient Time out: Immediately prior to the procedure a time out was called Physician or proceduralist has discussed critical or nonroutine steps, procedure duration and anticipated blood loss: Yes Supporting Documentation: Indications: Diagnostic evaluation and pain Procedure Details: Location: Hip Site: R greater trochanteric bursa Prep: patient was prepped and draped in usual sterile fashion Needle size: 22 G Medications: 40 mg triamcinolone acetonide 40 mg/mL Anesthetic used: Lidocaine 1% Anesthetic amount (mL): 2 Patient tolerance: Patient tolerated the procedure well with no immediate complications [facility] No Panel Informationon 09-15 [facility] LG Jt Injection/Arthrocentes is: R kneeon 08-21-2021 Eliecer Hill CNP 08/21/2021 8:33 AM LG Jt Injection/Arthrocentesi s: R knee Performed by: Eliecer Hill CNP Authorized by: Eliecer Hill CNP CPT 76904 - Large Joint Arthrocentesis: Consent given by: Patient Time out: Immediately prior to the procedure a time out was called Physician or proceduralist has discussed critical or nonroutine steps, procedure duration and anticipated blood loss: Yes Supporting Documentation: Indications: Pain, joint swelling and diagnostic evaluation Procedure Details: Location: Knee Site: R knee Prep: patient was prepped and draped in usual sterile fashion Needle size: 22 G Approach: Anterolateral Medications: 40 mg triamcinolone acetonide 40 mg/mL Anesthetic used: Lidocaine 1% Anesthetic amount (mL): 2 Patient tolerance: Patient tolerated the procedure well with no immediate complications [facility] Creatinine [Mass/Vol]on 06-07 GFR/1.73 sq M.predicted CKD-EPI (S/P/Bld) [Vol rate/Area] 49 Low >=60 mL/min/1.73 m2 [facility] Interpretation and review of laboratory results Abnormal [facility] The eGFR should be u sed for monitoring renal function only and not for medication dosing. [facility] Creatinine, serumon 07-02-20 Creatinine [Mass/Vol] 1.14 mg/dL 0.60 - 1.20 [facility] HbA1c (Bld) [Mass fraction]O rdered By: Bonnie Bains on 07-02-2021 Average glucose Estimated from glycated hemoglobin (Bld) [Mass/Vol] 177 mg/dL High 68 - 114 mg/dL [facility] Interpretation and review of laboratory results Abnormal [facility] Normal: 4.0% - 5.6% Increased risk for diabetes: 5.7% - 6.4% Diabetes: >= 6.5% Pediatrics: No established reference range Estimated average glucose: 68-114 mg/dL [facility] Hemoglobin [id number] By: Bette Bains on 07-02-2021 HbA1c (Bld) [Mass fraction] 7.8 % High 4.0 - 5.6 % [facility] Parathyrin.intact and Calciu m panelon 07-02-2021 Calcium [Mass/Vol] 9.1 mg/dL 8.4 - 10. 2 mg/dL [facility] Interpretation and review of laboratory results Normal [facility] Parathyrin.intact [Mass/Vol] 26.0 pg/mL 18.4 - 80.1 pg/mL [facility] Protein / Creatinine Ratio, Urineon 07-02-2021 Protein/Creatinine (U) [Ratio] 0.3 High [facility] Protein/Creatinine (U) [Rati o]on 07-02-2021 Creatinine (U) [Mass/Vol] 124.0 mg/dL [facility] Interpretation and review of laboratory results Abnormal [facility] Protein (U) [Mass/Vol] 40.2 mg/dL [facility] URINALYSISOrdered By: Yeimy Valadez on 07-02-2021 Bacteria Auto Ql (U) Rare Abnormal None Se en /hpf [facility] Clarity Refractometry automated (U) Clear Clear [facility] Color (U) Yellow Colorless, Yellow [facility] Glucose Auto test strip (U) [Mass/Vol] Negative Negative mg/dL [facility] Ketones (U) [Mass/Vol] Negative Negat paco mg/dL [facility] Leukocyte esterase Auto test strip Ql (U) Large Abnormal Negative [facility] pH (U) 7.0 [pH] [facility] Specific gravity (U) [Rel density] 1.016 [facility] UrinalysisOrdered By: Yeimy Valadez on 07-02-2021 Bilirubin Ql (U) Negative Negative [facility] th Epithelial cells.squamous Auto (Urine sed) [#/Area] 11 High [facility] Hemoglobin Auto test strip Ql (U) Negative Negative [facility] Hyaline casts Auto (Urine sed) [#/Area] 0-2 0 - 2 /lpf [facility] Interpretation and review of laboratory results Abnormal [facility] Mucus Auto (Urine sed) [#/Area] Rare None Seen, Rare /lpf [facility] Nitrite Auto test strip Ql (U) Negative Negative [facility] Protein (U) [Mass/Vol] Negative Negat paco mg/dL [facility] RBC Auto (Urine sed) [#/Area] 1 [facility] Transitional cells Computer assisted (U) [#/Area] 1 [facility] Urobilinogen (U) [Mass/Vol] mg/dL <2.0 mg/dL [facility] WBC Auto (Urine sed) [#/Area] 15 High [facility] Microscopic examinat ion is performed on all urinalysis samples and only positive findings are reported. The test for blood on the chemical analytic portion of urinalysis may also be positive due to hemoglobinuria and myoglobinuria and if red blood cells are present they are quantified by microscopic examination. [facility] VITAMIN D, TOTAL, 25-OHon 25-hydroxyvitamin D [Mass/Vol] 36 ng/mL 30 - 100 ng/mL [facility] Comment on above: Vitamin D status: Deficiency: <20 ng/mL Insufficiency: 20-30 ng/mL Sufficiency: 30-100 ng/mL Toxicity: >100 ng/mL Please note that Fluorescein which is used in angiography has been shown to falsely elevate the results of Vitamin D with our current assay. Evidence suggests that patients undergoing fluorescein dye angiography can retain small amounts of fluorescein in the body for up to 48 to 72 hours post-treatment. In the cases of patients with renal insufficiency, retention could be much longer. Samples should be resubmitted post fluorescein clearance to ensure there is no interference with the Vitamin D test result. Interpretation and review of laboratory results Normal [facility] Assay performed derek Schroeder's chemiluminescence methodology. [facility] Hemoglobin A1con 06-13-2021 Glucose [Mass/Vol] 189 mg/dL Normal [facility] Reference Lab Comment on above: Performed By: #### H BA1C #### [facility] Routine Lab [address] [place], [place] [address] HbA1c (Bld) [Mass fraction] 8.2 % High 4.3-5.6 [facility] Reference Lab Comment on above: Performed By: #### H BA1C #### [facility] Routine Lab [address] [place], [place] [id number] [facility] DIAGNOSTIC LTon 05-14-20 21 [facility] * * *Final Report* * * DATE OF EXAM: May 14 2021 9:11AM OLMAN 0621 - [facility] DIAGNOSTIC LT / PROCEDURE REASON: R92.8-Abnormal finding on radiological examination of breast * * * * Physician Interpretation * * * * #[id number] - [facility] DIAGNOSTIC LT UNILATERAL LEFT DIGITAL DIAGNOSTIC MAMMOGRAM WITH CAD: 05/14/2021 HISTORY: R92.8-Abnormal Finding On Radiological Examination Of Breast / Call back/abnormal mamm: Left Patient presents today for repeat diagnostic imaging of the left breast to reassess calcifications (prior imaging limited by patient motion.). RESULT: TECHNIQUE: The study was acquired using full field digital technology and interpreted from soft copy. Current study was also evaluated with a Computer Aided Detection (CAD). Comparison is made to exams dated: 04/24/2021 mammogram, 04/15/2021 mammogram, 03/17/2021 mammogram - [facility], and 02/02/2017 mammogram - [facility]. The tissue of left breast is heterogeneously dense. This may lower the sensitivity of mammography. There is a loop recorder overlying the medial left breast. There are multiple grouped amorphous calcifications in the left breast upper outer aspect posterior depth. These are seen in additional views. No other significant masses or calcifications are seen in the breast. IMPRESSION: SUSPICIOUS FINDING - BIOPSY SHOULD BE CONSIDERED The multiple grouped amorphous calcifications in the left breast are suspicious of malignancy. A stereotactic biopsy is recommended. SUMMARY: The recommendations were discussed with the patient. She will have the biopsy today. Informed consent was obtained. Marium evangelista/vilma:05/14/2021 10:57:46 Resident Care Supervisor(s): Isha Damon, RT(R)(M), [facility] Mammogram BI-RADS: 4 Suspicious finding - Biopsy should be considered Multiple national specialty organizations have released breast cancer screening guidelines for women at average risk for developing breast cancer - guidelines that are based on both evidence and opinion, yet differ on when to start and how often to screen for breast cancer. With representation from Breast Imaging, Internal Medicine, Women's Health, Family Medicine, and Medical/Surgical Oncology, the [facility] has carefully reviewed the data and reached the following consensus: 1) All women should engage in shared decision-making with their providers to decide when to start and how often to screen; 2) All women should have the opportunity to start screening mammography at age 40; 3) For women ages 45-55, we recommend annual screening mammograms; 4) For women ages 55 and over, we support both the transition from an annual to a biennial interval if this aligns more with patient's values and preferences, or continuation with annual screening; 5) All women should discuss with their providers when to stop screening mammograms. Lead Section Supervisor: Vilma Transcribe Date/Time: May 14 2021 9:04A Dictated by : MARIUM NERI MD This examination was interpreted and the report reviewed and electronically signed by: MARIUM NERI MD on May 14 2021 10:57AM EST [id number] Normal [facility] STEREO BX BREAST LTon [facility] STEREO BX BREAST LT * * *Final Repor t* * * * * * SEE BOTTOM OF REPORT FOR ADDENDED TEXT * * * DATE OF EXAM: May 14 2021 10:26AM OLMAN 0630 - [facility] STEREO BX BREAST LT / PROCEDURE REASON: R92.8-Abnormal finding on breast imaging * * * * Physician Interpretation * * * * FINAL REPORT #[id number] - [facility] STEREO BX BREAST LT STEREOTACTIC GUIDED BIOPSY LEFT BREAST USING VACUUM DEVICE WITH MARKING DEVICE INSERTED AND POST DIGITAL MAMMOGRAPHIC IMAGING AND RADIOGRAPHIC SPECIMEN IMAGIN05/14/2021 HISTORY: The patient presents for left stereotactic vacuum assisted needle biopsy as recommended from recent imaging study performed earlier today. Pre and post fire hard copy mammographic images were obtained. Left upper outer calcifications (tophat clip). PATIENT CONSENT: A time out was performed immediately prior to procedure start with the radiology team, correctly identifying the patient name, date of , procedure, anatomy (including marking of site and side), patient position, relevant diagnostic and radiology test results, safety precautions, and procedure-specific equipment needs. The procedure was explained to the patient including the risks, benefits and alternatives. Medications and allergies were also reviewed. The risks, including but not limited to infection and bleeding, were reviewed by the performing physician and the patient agreed to undergo the procedure. The radiologist and two technologists were present throughout the entire procedure. Time out: 1007 Procedure start: 1009 Procedure end: 1019 . Correlation is made to exam dated: 05/14/2021 [facility]. A stereotactic guided biopsy was performed for the concerning area of grouped calcifications located in the left breast upper outer aspect posterior depth. This was described on the previous mammography report. The skin was prepped in the usual manner. Local anesthetic was administered to the access site. A skin akira was made in the breast. The abnormality was approached from the craniocaudal aspect using an upright digital mammography unit. A 12 gauge biopsy needle was placed adjacent to the abnormality under computer guidance and confirmatory stereotactic mammography images were obtained to document needle placement. Once the needle was documented to be in the correct location, eight cores were obtained using the [employer] system. A top hat clip was inserted into the biopsy cavity. A skin adhesive, a skin closure strip, and a sterile dressing were applied to the access site. Post procedure digital mammographic imaging demonstrates the location device at the targeted area and partial removal of the calcifications. The specimens were sent to the laboratory for pathological analysis. IMPRESSION: STEREOTACTIC GUIDED BIOPSY BENIGN Stereotactic guided biopsy of the area of grouped calcifications in the left breast upper outer aspect posterior depth was successful with no apparent post procedure complications. The imaged cores includes the calcifications. Pathology indicates benign stromal fibrosis. Pathology results are concordant with imaging findings. SUMMARY: FINAL DIAGNOSIS Left breast, upper outer quadrant, posterior depth, core biopsy with Top-Hat clip ?Benign breast tissue with stromal fibrosis, focal fibroadenomatoid change and microcalcifications, (please see comment). COMMENT Please correlate with clinical and radiologic findings ensure adequate sampling of the target lesion. Findings are benign and concordant. Return to annual screening mammography. The breast imaging navigator notified the patient of the results on 05/15/21. Marium Neri M.D. Serine raquel Chicas M.D./vilma:05/15/2021 16:48:03 Resident Care Supervisor(s): Isha Damon RT(R)(M), [facility] Multiple national specialty organizations have released breast cancer screening guidelines for women at average risk for developing breast cancer - guidelines that are based on both evidence and opinion, yet differ on when to start and how often to screen for breast cancer. With representation from Breast Imaging, Internal Medicine, Women's Health, Family Medicine, and Medical/Surgical Oncology, the [facility] has carefully reviewed the data and reached the following consensus: 1) All women should engage in shared decision-making with their providers to decide when to start and how often to screen; 2) All women should have the opportunity to start screening mammography at age 40; 3) For women ages 45-55, we recommend annual screening mammograms; 4) For women ages 55 and over, we support both the transition from an annual to a biennial interval if this aligns more with patient's values and preferences, or continuation with annual screening; 5) All women should discuss with their providers when to stop screening mammograms. Lead Section Supervisor: Vilma Transcribe Date/Time: May 14 2021 10:54A Dictated by : CINDY (more content not included)... Normal [facility] SURGICAL PATHOLOGYon 021 SURGICAL PATHOLOGY Specimen originated from [facility] Specimen #: [id number] Submitting Physician: MARIUM NERI MD FINAL DIAGNOSIS Left breast, upper outer quadrant, posterior depth, core biopsy with Top-Hat clip Benign breast tissue with stromal fibrosis, focal fibroadenomatoid change and microcalcifications, (please see comment). COMMENT Please correlate with clinical and radiologic findings ensure adequate sampling of the target lesion. Tay Arambula M.D. (Electronic Signature) SPECIMEN SUBMITTED A: LEFT BREAST, UPPER OUTER QUADRANT, POSTERIOR DEPTH, TOPHAT CLIP, BIOPSY CLINICAL DATA RULE OUT FIBROCYSTIC CHANGE VS DCIS GROSS DESCRIPTION A. Received in formalin labeled as Left breast are multiple segments of cylindrical tissue aggregating to 2.7 x 1.3 x 0.2 cm, yellow-white and of a soft consistency. The specimen is removed from the patient at 10:12 on 05/14/2021. The specimen was placed in formalin at 10:19 on 05/14/2021. Totally submitted in formalin in one cassette. Gross examination performed at [facility], [address] [place] [address] JT 05/14/2021 3:35:29 PM Date of Report: 05/15/2021 Date of Procedure: 05/14/2021 Date of Receipt: 05/14/2021 Submitted by: MARIUM NERI MD Location: [facility] Diagnostic interpretation performed at [facility], [address] [place] [address]. [place] Number: [id number] [facility] OR LARGE JOINT ARTHROCEN [facility] 05-05-2021 Eliecer Hill CNP 05/05/2021 9:58 AM LG Jt Injection/Arthrocentesi s: R knee Performed by: Eliecer Hill CNP Authorized by: Eliecer Hill CNP CPT 87547 - Large Joint Arthrocentesis: Consent given by: Patient Time out: Immediately prior to the procedure a time out was called Physician or proceduralist has discussed critical or nonroutine steps, procedure duration and anticipated blood loss: Yes Supporting Documentation: Indications: Pain, joint swelling and diagnostic evaluation Procedure Details: Location: Knee Site: R knee Prep: patient was prepped and draped in usual sterile fashion Needle size: 22 G Approach: Anterolateral Medications: 40 mg triamcinolone acetonide 40 mg/mL Anesthetic used: Lidocaine 1% Anesthetic amount (mL): 2 Patient tolerance: Patient tolerated the procedure well with no immediate complications [facility] Eliecer Hill CNP 05/05/2021 9:58 AM LG Jt Injection/Arthrocentesi s: R greater trochanteric bursa Performed by: Eliecer Hill CNP Authorized by: Eliecer Hill CNP CPT 16346 - Large Joint Arthrocentesis: Consent given by: Patient Time out: Immediately prior to the procedure a time out was called Physician or proceduralist has discussed critical or nonroutine steps, procedure duration and anticipated blood loss: Yes Supporting Documentation: Indications: Diagnostic evaluation and pain Procedure Details: Location: Hip Site: R greater trochanteric bursa Prep: patient was prepped and draped in usual sterile fashion Needle size: 22 G Approach: Lateral Medications: 40 mg triamcinolone acetonide 40 mg/mL Anesthetic used: Lidocaine 1% Anesthetic amount (mL): 2 Patient tolerance: Patient tolerated the procedure well with no immediate complications [facility] Eliecer Hill CNP 05/05/2021 9:58 AM LG Jt Injection/Arthrocentesi s: L greater trochanteric bursa Performed by: Eliecer Hill CNP Authorized by: Eliecer Hill CNP CPT 78856 - Large Joint Arthrocentesis: Consent given by: Patient Time out: Immediately prior to the procedure a time out was called Physician or proceduralist has discussed critical or nonroutine steps, procedure duration and anticipated blood loss: Yes Supporting Documentation: Indications: Diagnostic evaluation and pain Procedure Details: Location: Hip Site: L greater trochanteric bursa Prep: patient was prepped and draped in usual sterile fashion Needle size: 22 G Approach: Lateral Medications: 40 mg triamcinolone acetonide 40 mg/mL Anesthetic used: Lidocaine 1% Anesthetic amount (mL): 2 Patient tolerance: Patient tolerated the procedure well with no immediate complications [facility] Protein Electrophor.on 04-01 Albumin [Mass/Vol] 3.75 g/dL Normal 3.37-4.23 [facility] Reference Lab Comment on above: Performed By: #### S EPG #### [facility] Routine Lab [address] [place] [phone] Alpha 1 Globulin 0.23 gm/dL Normal 0.18-0.31 [facility] Reference Lab Comment on above: Performed By: #### S EPG #### [facility] Routine Lab [address] [phone] Alpha 2 Globulin 0.92 gm/dL Normal 0.52-0.97 [facility] Reference Lab Comment on above: Performed By: #### S EPG #### [facility] Routine Lab [address] [phone] Beta Globulin 1.29 gm/dL Normal 0.84-1.36 [facility] Reference Lab Comment on above: Performed By: #### S EPG #### [facility] Routine Lab [address] [phone] Gamma Globulin 1.22 gm/dL Normal 0.70-1.44 [facility] Reference Lab Comment on above: Performed By: #### S EPG #### [facility] Routine Lab [address] [phone] Interpretation NMPD Normal [facility] Reference Lab Comment on above: Performed By: #### S EPG #### [facility] Routine Lab [address] [phone] M Protein Location NAPP Normal [facility] Reference Lab Comment on above: Performed By: #### S EPG #### [facility] Routine Lab [address] [phone] M Billy Concentratn 0.00 gm/dL Normal 0.00 [facility] Reference Lab Comment on above: Performed By: #### S EPG #### [facility] Routine Lab [address] [place] [phone] SPE Staff Review NAKAS Normal [facility] Reference Lab Comment on above: Performed By: #### S EPG #### [facility] Routine Lab [facility] [place] [phone] Protein Electrophor.on 03-29 Protein [Mass/Vol] 7.4 g/dL Normal 6.3-8.0 [facility] Reference Lab Comment on above: Performed By: #### S EPG #### [facility] Routine Lab [address] [place] [phone] Prot Elec, Ur w/ IFEon 03-28 Albumin Normal [facility] Lab Comment on above: Result Comment: Unab le to assay. Quantity not sufficient. SPOKE WITH LEILA [id number] Account Credited Performed By: #### U EPGRX #### [facility] Routine Lab [address] [place] [phone] Alpha 1 Globulin Normal [facility] Reference Lab Comment on above: Result Comment: Unab le to assay. Quantity not sufficient. SPOKE WITH LEILA [id number] Account Credited Performed By: #### U EPGRX #### [facility] Routine Lab [address] [place], [place] [phone] Alpha 2 Globulin Normal [facility] Reference Lab Comment on above: Result Comment: Unab le to assay. Quantity not sufficient. SPOKE WITH LEILA [id number] Account Credited Performed By: #### U EPGRX #### [facility] Routine Lab [address] [place] [phone] Beta Globulin Normal [facility] Lab Comment on above: Result Comment: Unab le to assay. Quantity not sufficient. SPOKE WITH LEILA [id number] Account Credited Performed By: #### U EPGRX #### [facility] [place] Routine [facility] [place] [phone] Comment Normal [facility] Reference Lab Comment on above: Result Comment: Unab le to assay. Quantity not sufficient. SPOKE WITH LEILA [id number] Account Credited Performed By: #### U EPGRX #### [facility] [place] Routine Lab [address] [phone] Gamma Globulin Normal [facility] Reference Lab Comment on above: Result Comment: Unab le to assay. Quantity not sufficient. SPOKE WITH LEILA [id number] Account Credited Performed By: #### U EPGRX #### [facility] [place] Routine Lab [address] [phone] Interpretation Normal [facility] Reference Lab Comment on above: Result Comment: Unab le to assay. Quantity not sufficient. SPOKE WITH LEILA [id number] Account Credited Performed By: #### U EPGRX #### [facility] [place] Routine Lab [address] [phone] Staff Review Normal [facility] Reference Lab Comment on above: Result Comment: Unab le to assay. Quantity not sufficient. SPOKE WITH LEILA FRAGA [id number] Account Credited Performed By: #### U EPGRX #### [facility] Routine Lab [address] [phone] Protein (U) [Mass/Vol] 53 mg/dL High 0-20 Cl [facility] Reference Lab Comment on above: Performed By: #### U EPGRX #### [facility] [place] Routine Lab [address] [phone] ECG 12-LEADOrdered By: Mario Alberto Das on 02-13-2021 Atrial Rate [facility] P Witherbee [facility] P-R Interval [facility] Q-T Interval [facility] Q-T Interval (corrected) [facility] QRS Duration [facility] QTC Calculation (Bezet) [facility] R W[place]bee [facility] T Witherbee [facility] Ventricular Rate [facility] [place] Outpatient Device Clinic Ref erralOrdered By: Device Opg Hvpcnter on 01-20-2021 Date Time Interrogation Session [id number] [facility] Implantable Pulse Generator Implant Date [facility] Implantable Pulse Generator Machine [employer] [facility] Implantable Pulse Generator Model [id number] [facility] Implantable Pulse Generator Serial Number [id number] [facility] Implantable Pulse Generator Type Loop Recorder [facility] [place] ORT LARGE JOINT ARTHROCEN TESISOrdered By: Eliecer Hill on 01-08-2021 Eliecer Hill CNP 01/08/2021 12:15 PM LG Jt Injection/Arthrocentesi s: R knee Performed by: Eliecer Hill CNP Authorized by: Eliecer Hill CNP CPT 84646 - Large Joint Arthrocentesis: Consent given by: Patient Time out: Immediately prior to the procedure a time out was called Physician or proceduralist has discussed critical or nonroutine steps, procedure duration and anticipated blood loss: Yes Supporting Documentation: Indications: Pain, joint swelling and diagnostic evaluation Procedure Details: Location: Knee Site: R knee Prep: patient was prepped and draped in usual sterile fashion Needle size: 22 G Approach: Anterolateral Medications: 40 mg triamcinolone acetonide 40 mg/mL Anesthetic used: Lidocaine 1% Anesthetic amount (mL): 2 Patient tolerance: Patient tolerated the procedure well with no immediate complications [facility] Eliecer Hill CNP 01/08/2021 12:15 PM LG Jt Injection/Arthrocentesi s: R greater trochanteric bursa Performed by: Eliecer Hill CNP Authorized by: Eliecer Hill CNP CPT 48999 - Large Joint Arthrocentesis: Consent given by: Patient Time out: Immediately prior to the procedure a time out was called Physician or proceduralist has discussed critical or nonroutine steps, procedure duration and anticipated blood loss: Yes Supporting Documentation: Indications: Diagnostic evaluation and pain Procedure Details: Location: Hip Site: R greater trochanteric bursa Prep: patient was prepped and draped in usual sterile fashion Needle size: 22 G Medications: 40 mg triamcinolone acetonide 40 mg/mL Anesthetic used: Lidocaine 1% Anesthetic amount (mL): 2 Patient tolerance: Patient tolerated the procedure well with no immediate complications [facility] Eliecer Hill CNP 01/08/2021 12:15 PM LG Jt Injection/Arthrocentesi s: L greater trochanteric bursa Performed by: Eliecer Hill CNP Authorized by: Eliecer Hill CNP CPT 48540 - Large Joint Arthrocentesis: Consent given by: Patient Time out: Immediately prior to the procedure a time out was called Physician or proceduralist has discussed critical or nonroutine steps, procedure duration and anticipated blood loss: Yes Supporting Documentation: Indications: Diagnostic evaluation and pain Procedure Details: Location: Hip Site: L greater trochanteric bursa Prep: patient was prepped and draped in usual sterile fashion Needle size: 22 G Approach: Lateral Medications: 40 mg triamcinolone acetonide 40 mg/mL Anesthetic used: Lidocaine 1% Anesthetic amount (mL): 2 Patient tolerance: Patient tolerated the procedure well with no immediate complications [facility] Basic metabolic 2000 panelOr dered By: Latricia Wilson on 01-06-2021 Anion gap [Moles/Vol] 13 mmol/L 10 - 2 0 mmol/L [facility] Calcium [Mass/Vol] 8.8 mg/dL 8.4 - 10. 2 mg/dL [facility] Chloride [Moles/Vol] 109 mmol/L High 98 - 10 8 mmol/L [facility] Creatinine [Mass/Vol] 1.24 mg/dL High 0.60 - 1.20 [facility] GFR/1.73 sq M.predicted CKD-EPI (S/P/Bld) [Vol rate/Area] 45 Low >=60 mL/min/1.73 m2 [facility] Glucose [Mass/Vol] 182 mg/dL High 65 - 99 mg/dL [facility] HCO3 [Moles/Vol] 22 mmol/L 21 - 32 mmol/L [facility] Interpretation and review of laboratory results Abnormal [facility] Potassium [Moles/Vol] 3.6 mmol/L 3.5 - 5.1 mmol/L [facility] Sodium [Moles/Vol] 140 mmol/L 135 - 145 mmol/L [facility] Urea nitrogen [Mass/Vol] 20 mg/dL 8 - 25 mg/dL [facility] Urea nitrogen/Creatinine [Mass ratio] 16.1 mg/mg [facility] The eGFR should be u sed for monitoring renal function only and not for medication dosing. [facility] XR Hands Bilateral Ball Catc hers 2 ViewsOrdered By: Latricia Wilson on 01-06-2021 1. No evidence for erosive arthropathy in either hand or wrist. 2. 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 PRL/mll Workstation ID: [id number] [facility] EXAMINATION: XR HAND S BILATERAL BALL CATCHERS 2 VIEWS 01/06/2021 9:56 am HISTORY: ORDERING SYSTEM PROVIDED HISTORY: assess for RA, middle finger on left hand, TECHNOLOGIST PROVIDED HISTORY: Illness/Other Reason for exam: bilateral hand pain. majority of pain in left middle finger Cancer History: u Surgery, RadiationHistory: u Encounter Type: Initial Additional signs and symptoms: none ORDERING SYSTEM PROVIDED DIAGNOSIS CODES: M25.50 Arthralgia, unspecified joint COMPARISON: None. FINDINGS: Two views of each hand. Left hand and wrist: Normal alignment. No erosion identified in the hand or wrist. Mild osteoarthritis is seen in the 2nd and 3rd DIP joints. No abnormal juxtaarticular calcifications or foreign bodies. Right hand and wrist: Normal alignment. No erosion or fracture. Mild osteoarthritis in the 2nd and 5th DIP joints without erosion. [facility] Interface, Rad In Fu ji Speechq - 01/06/2021 4:28 PM EDT EXAMINATION: XR HANDS BILATERAL BALL CATCHERS 2 VIEWS 01/06/2021 9:56 am HISTORY: ORDERING SYSTEM PROVIDED HISTORY: assess for RA, middle finger on left hand, TECHNOLOGIST PROVIDED HISTORY: Illness/Other Reason for exam: bilateral hand pain. majority of pain in left middle finger Cancer History: u Surgery, RadiationHistory: u Encounter Type: Initial Additional signs and symptoms: none ORDERING SYSTEM PROVIDED DIAGNOSIS CODES: M25.50 Arthralgia, unspecified joint COMPARISON: None. FINDINGS: Two views of each hand. Left hand and wrist: Normal alignment. No erosion identified in the hand or wrist. Mild osteoarthritis is seen in the 2nd and 3rd DIP joints. No abnormal juxtaarticular calcifications or foreign bodies. Right hand and wrist: Normal alignment. No erosion or fracture. Mild osteoarthritis in the 2nd and 5th DIP joints without erosion. IMPRESSION: 1. No evidence for erosive arthropathy in either hand or wrist. 2. 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 PRL/mll Workstation ID: [id number] [facility] PT Progress Noteon PT Progress Note Therapy Diagnosis Health Maintenance/Risks Encounter for preventive health examination (V70.0) (Z00.00) Assessed Closed fracture of tibial plateau with routine healing, right (V54.16) (S82.141D) Gait difficulty (781.2) (R26.9) Decreased ROM of right knee (719.56) (M25.661) Localized osteoarthritis of knees, bilateral (715.36) (M17.0) Right knee pain (719.46) (M25.561) Plan Goals: Goals set and discussed today. Pt will demo and report compliance with HEP in order to augment POC goals and progression toward independence with symptom management for better outcomes once D/C from POC. Pt will demo improved AROM in R knee , by week 3, goal partially met Activity Limitation: Pt will demo improved standing tolerance to >/= 45 min in order to improve ease with ADL?s and IADL?s. , by week 6, goal partially met Balance: Pt will demo improved standing balance and proprioception with RLE SLS improved to >/= 10" seconds, to decrease instability and improve ease to ambulate over uneven terrain. , by week 6, goal partially met Gait/Locomotion: Pt will demo improved gait mechanics with least restrictive device, even step length, stance time, proper heel strike and push off, and min-no evidence of instability or antalgic gait for return to PLOF. , by week 6, goal partially met Range Of Motion/Joint Mobility: Pt will demo improved AROM in R knee to , by week 6, goal partially met Strength: Pt will demo improved MMT by >/= 1 point on 0-5 point scale in BLE's for improved strength and stability, and improved ease with transfers, lifting/carrying, and proper mechanics with ADL?s AND IADL?s. , by week 6, goal partially met LEFS, Pt will report subjective improvement with score on LEFS improved by >/= 5 points for return to PLOF, improved QOL, and improved ease with ADL?s AND IADL?s. , by week 6, goal partially met Planned interventions include: aquatic therapy, cryotherapy, dry needling, education/instruction, electrical stimulation, gait training, home program, hot pack, kinesiotaping, manual therapy, neuromuscular re-education, self care/home management, therapeutic activities, therapeutic exercises and IASTM/CUPPING. Frequency and duration: No further visits planned. Potential to achieve rehab goals is good Pt being placed on hold for 30 days at this time and is going to attempt independence with HEP. If pt does not elect to resume PT within 30 days, this will serve as his D/C. Refer back in future if necessary. Monitor home program. Patient instructed to call if problems. Assessment Pt confirmed via and Full Name. Pt arrived this date without any reports of issues with monitoring her blood sugar, however after initiating session on rec bike pt verbalizes her blood sugar is low and was not feeling very good. Took measurement at blood sugar of 49, so patient stopped the bike, laid down, and this PT got the pt something to drink/eat with sugar per pt request. Pt was able to lie supine while this PT edu her on HEP and plan to F/U with MD, but other than educate period, pt did not participate in full PT reevaluation. Pt is to return questionnaire for LEFS and is going to call MD to schedule F/U to discuss progress made so far. Even without being able to formally re-assess pt, this PT can tell pt is doing better than prior to starting skilled PT and voiced good understanding of HEP to continue to address any lingering impairments. Pt reported feeling better and noted blood sugar increased to > 80 prior to leaving clinic this date. Response to treatment: decreased pain. Patient was not able to complete today's treatment. Adult Risk Screening Initial Fall Risk Screening: KRISTEN has fallen in the last 6 months. She has fallen due to She blacked out x1, missed a step x1, tripped x1. Her fall resulted in the following injury: Knee in 08/25. KRISTEN has a fear of falling. She does not need assistance with sitting, standing or walking. Does not need assistance walking in her home. She does not need assistance in an unfamiliar setting. The patient is not using an assistive device. Pain Scale: On a scale of 0 to 10, the patient rates the pain at 1. Please identify location of pain: R knee. Pain Quality: aching. Insurance Insurance reviewed Visit number: 12 Authorization not required after evaluation POC: 08/18 Medicare (no prior PT 2019) Supervising PT: Patience Salcedo PT, DPT, Cert DN PT Dx:M25.561; M25.661; R26.9; M17.0; S82.141D Onset Date: 2020 Beginnin2020 Endin2020 Subjective Patient reports:. Pt notes she feels like she has made progress with therapy and notes there isn't anything I can't do" but stairs are still difficult, mores so descending than ascending. Pt notes she is supposed to call her MD to make an appointment. Pt notes she had an episode of low blood sugar last night, but was better this AM after eating breakfast and took her insulin per usual. Notes her sugar doctor (more content not included)... Normal [facility] Therapy Re-eval Noteon 12-30 Therapy Re-eval Note Therapy Diagnosis Health Maintenance/Risks 1. Encounter for preventive health examination (V70.0) (Z00.00) Assessed 2. Closed fracture of tibial plateau with routine healing, right (V54.16) (S82.141D) 3. Gait difficulty (781.2) (R26.9) 4. Decreased ROM of right knee (719.56) (M25.661) 5. Localized osteoarthritis of knees, bilateral (715.36) (M17.0) 6. Right knee pain (719.46) (M25.561) Plan Goals: Goals set and discussed today. Pt will demo and report compliance with HEP in order to augment POC goals and progression toward independence with symptom management for better outcomes once D/C from POC. Pt will demo improved AROM in R knee , by week 3, goal partially met Activity Limitation: Pt will demo improved standing tolerance to >/= 45 min in order to improve ease with ADL?s and IADL?s. , by week 6, goal partially met Balance: Pt will demo improved standing balance and proprioception with RLE SLS improved to >/= 10" seconds, to decrease instability and improve ease to ambulate over uneven terrain. , by week 6, goal partially met Gait/Locomotion: Pt will demo improved gait mechanics with least restrictive device, even step length, stance time, proper heel strike and push off, and min-no evidence of instability or antalgic gait for return to PLOF. , by week 6, goal partially met Range Of Motion/Joint Mobility: Pt will demo improved AROM in R knee to , by week 6, goal partially met Strength: Pt will demo improved MMT by >/= 1 point on 0-5 point scale in BLE's for improved strength and stability, and improved ease with transfers, lifting/carrying, and proper mechanics with ADL?s AND IADL?s. , by week 6, goal partially met LEFS, Pt will report subjective improvement with score on LEFS improved by >/= 5 points for return to PLOF, improved QOL, and improved ease with ADL?s AND IADL?s. , by week 6, goal partially met Planned interventions include: aquatic therapy, cryotherapy, dry needling, education/instruction, electrical stimulation, gait training, home program, hot pack, kinesiotaping, manual therapy, neuromuscular re-education, self care/home management, therapeutic activities, therapeutic exercises and IASTM/CUPPING. Frequency and duration: No further visits planned. Potential to achieve rehab goals is good Pt being placed on hold for 30 days at this time and is going to attempt independence with HEP. If pt does not elect to resume PT within 30 days, this will serve as his D/C. Refer back in future if necessary. Monitor home program. Patient instructed to call if problems. Assessment Pt confirmed via and Full Name. Pt arrived this date without any reports of issues with monitoring her blood sugar, however after initiating session on rec bike pt verbalizes her blood sugar is low and was not feeling very good. Took measurement at blood sugar of 49, so patient stopped the bike, laid down, and this PT got the pt something to drink/eat with sugar per pt request. Pt was able to lie supine while this PT edu her on HEP and plan to F/U with MD, but other than educate period, pt did not participate in full PT reevaluation. Pt is to return questionnaire for LEFS and is going to call MD to schedule F/U to discuss progress made so far. Even without being able to formally re-assess pt, this PT can tell pt is doing better than prior to starting skilled PT and voiced good understanding of HEP to continue to address any lingering impairments. Pt reported feeling better and noted blood sugar increased to > 80 prior to leaving clinic this date. Response to treatment: decreased pain. Patient was not able to complete today's treatment. Adult Risk Screening Initial Fall Risk Screening: KRISTEN has fallen in the last 6 months. She has fallen due to She blacked out x1, missed a step x1, tripped x1. Her fall resulted in the following injury: Knee in 08/25. KRISTEN has a fear of falling. She does not need assistance with sitting, standing or walking. Does not need assistance walking in her home. She does not need assistance in an unfamiliar setting. The patient is not using an assistive device. Pain Scale: On a scale of 0 to 10, the patient rates the pain at 1. Please identify location of pain: R knee. Pain Quality: aching. Insurance Insurance reviewed Visit number: 12 Authorization not required after evaluation POC: 08/18 Medicare (no prior PT 2019) Supervising PT: Patience Salcedo PT, DPT, Cert DN PT Dx:M25.561; M25.661; R26.9; M17.0; S82.141D Onset Date: 2020 Beginnin2020 Endin2020 Subjective Patient reports:. Pt notes she feels like she has made progress with therapy and notes there isn't anything I can't do" but stairs are still difficult, mores so descending than ascending. Pt notes she is supposed to call her MD to make an appointment. Pt notes she had an episode of low blood sugar last night, but was better this AM after eating breakfast and took her insulin per usual. Notes (more content not included)... Normal [facility] Hemoglobin A1con 12-29-2020 Glucose [Mass/Vol] 169 mg/dL Normal [facility] Reference Lab Comment on above: Performed By: #### H BA1C #### [facility] Routine Lab [address] [place], [place] [id number] HbA1c (Bld) [Mass fraction] 7.5 % High 4.3-5.6 [facility] Reference Lab Comment on above: Performed By: #### H BA1C #### [facility] Routine Lab [address] [place], [place] [address] PT Progress Noteon 1 PT Progress Note Therapy Diagnosis Assessed Decreased ROM of right knee (719.56) (M25.661) Closed fracture of tibial plateau with routine healing, right (V54.16) (S82.141D) Localized osteoarthritis of knees, bilateral (715.36) (M17.0) Gait difficulty (781.2) (R26.9) Right knee pain (719.46) (M25.561) Plan Goals: Goals set and discussed today. Pt will demo and report compliance with HEP in order to augment POC goals and progression toward independence with symptom management for better outcomes once D/C from POC. Pt will demo improved AROM in R knee , by week 3, goal partially met Activity Limitation: Pt will demo improved standing tolerance to >/= 45 min in order to improve ease with ADL?s and IADL?s. , by week 6, goal partially met Balance: Pt will demo improved standing balance and proprioception with RLE SLS improved to >/= 10" seconds, to decrease instability and improve ease to ambulate over uneven terrain. , by week 6, goal partially met Gait/Locomotion: Pt will demo improved gait mechanics with least restrictive device, even step length, stance time, proper heel strike and push off, and min-no evidence of instability or antalgic gait for return to PLOF. , by week 6, goal partially met Range Of Motion/Joint Mobility: Pt will demo improved AROM in R knee to , by week 6, goal partially met Strength: Pt will demo improved MMT by >/= 1 point on 0-5 point scale in BLE's for improved strength and stability, and improved ease with transfers, lifting/carrying, and proper mechanics with ADL?s AND IADL?s. , by week 6, goal partially met LEFS, Pt will report subjective improvement with score on LEFS improved by >/= 5 points for return to PLOF, improved QOL, and improved ease with ADL?s AND IADL?s. , by week 6, goal partially met Planned interventions include: aquatic therapy, cryotherapy, dry needling, education/instruction, electrical stimulation, gait training, home program, hot pack, kinesiotaping, manual therapy, neuromuscular re-education, self care/home management, therapeutic activities, therapeutic exercises and IASTM/CUPPING. Frequency and duration: 2 time(s) a week, for 6 weeks, for 12 visits. Potential to achieve rehab goals is good Will continue with strength progression for improved daiy function. Progress with POC, as tolerated. Assessment Patient got dizzy when completing lateral step ups to the L but not to the R. Cues with LAQ d/t patient swinging her legs and using momentum. Improved technique after VC's were given. Mildly antalgic gait observed this date in the clinic. Response to treatment: decreased pain. Adult Risk Screening Initial Fall Risk Screening: KRISTEN has fallen in the last 6 months. She has fallen due to She blacked out x1, missed a step x1, tripped x1. Her fall resulted in the following injury: Knee in 08/25. KRISTEN has a fear of falling. She does not need assistance with sitting, standing or walking. Does not need assistance walking in her home. She does not need assistance in an unfamiliar setting. The patient is not using an assistive device. Pain Scale: On a scale of 0 to 10, the patient rates the pain at 2. Please identify location of pain: R knee. Pain Quality: aching. Insurance Insurance reviewed Visit number: 11 Authorization not required after evaluation POC: 05/19 Medicare (no prior PT 2019) Supervising PT: Patience Salcedo PT, DPT, Cert DN PT Dx:M25.561; M25.661; R26.9; M17.0; S82.141D Onset Date: 2020 Beginnin2020 Endin2020 Subjective Patient reports:. Patient repots that she is not having any pain upon arrival. Notes that she does not have a true fear of falling still because she feels stronger overall but is still cautious. Patient identified by name and date of . Home program performing as directed: Yes. Precautions: Fall Risk: moderate L4-L5 involvement causing back pain; Limited visual field due to eye surgeries; Hx CVA; DM;. Treatment Time in clinic started at 09:15 Time in clinic ended at 10:00 Total time in clinic is 44 minutes. Total timed code time is 43 minutes. Therapeutic exercise (29804): timed minutes 43, units 3 . Bike 6? Level 2 NuStep 5? level 2 (X) Slant Board 2 x 1? Stnd HS stretch 10x10? Holds RLE Step ups -fwd 6? 2 x 10 -lat 4? 2 x10 (P reps) SLS 2 x 30? finger touch down Running man 2 x 20? B/L on BOSU single Digit A and single UE perturbations Standing hip abd 2x10 on Airex Standing hip ext 2x10 on Airex Step ups fwd 6' step 2 x 10 Squats Airex 2 x 10 Tandem stance 3 x 20" Supine hip flexor EOB stretch RLE 5x20? holds SAQ 2 x 10 B LE?s 1.5# ankle wt (P wt) QS w/ SLR 2 x 10 B LE?s supine with SLR 0# ankle wt (Held weight per pt.) Seated HS curls Red band 2x10 Seated LAQ 0# x10 B D/C: Seated QS 10x5" holds D/C to HEP NuStep 5?(X) Seated GS/HS stretch w/ strap 5x10" holds Bridge 2 x 10 3-5? hold S/L Clamshell 2 x 10 orange band . Manual Therapy (971 (more content not included)... Normal Assembly PT Progress Noteon 1 PT Progress Note Therapy Diagnosis Assessed Decreased ROM of right knee (719.56) (M25.661) Closed fracture of tibial plateau with routine healing, right (V54.16) (S82.141D) Localized osteoarthritis of knees, bilateral (715.36) (M17.0) Gait difficulty (781.2) (R26.9) Right knee pain (719.46) (M25.561) Plan Goals: Goals set and discussed today. Pt will demo and report compliance with HEP in order to augment POC goals and progression toward independence with symptom management for better outcomes once D/C from POC. Pt will demo improved AROM in R knee , by week 3, goal partially met Activity Limitation: Pt will demo improved standing tolerance to >/= 45 min in order to improve ease with ADL?s and IADL?s. , by week 6, goal partially met Balance: Pt will demo improved standing balance and proprioception with RLE SLS improved to >/= 10" seconds, to decrease instability and improve ease to ambulate over uneven terrain. , by week 6, goal partially met Gait/Locomotion: Pt will demo improved gait mechanics with least restrictive device, even step length, stance time, proper heel strike and push off, and min-no evidence of instability or antalgic gait for return to PLOF. , by week 6, goal partially met Range Of Motion/Joint Mobility: Pt will demo improved AROM in R knee to , by week 6, goal partially met Strength: Pt will demo improved MMT by >/= 1 point on 0-5 point scale in BLE's for improved strength and stability, and improved ease with transfers, lifting/carrying, and proper mechanics with ADL?s AND IADL?s. , by week 6, goal partially met LEFS, Pt will report subjective improvement with score on LEFS improved by >/= 5 points for return to PLOF, improved QOL, and improved ease with ADL?s AND IADL?s. , by week 6, goal partially met Planned interventions include: aquatic therapy, cryotherapy, dry needling, education/instruction, electrical stimulation, gait training, home program, hot pack, kinesiotaping, manual therapy, neuromuscular re-education, self care/home management, therapeutic activities, therapeutic exercises and IASTM/CUPPING. Frequency and duration: 2 time(s) a week, for 6 weeks, for 12 visits. Potential to achieve rehab goals is good Will continue with strength progression and NMRE as able. Progress with POC, as tolerated. Assessment Patient needed cues for reminder of what the exercises were. Minimally antalgic gait observed today in the clinic. Fair eccentric control with SLR. Response to treatment: decreased pain. Adult Risk Screening Initial Fall Risk Screening: KRISTEN has fallen in the last 6 months. She has fallen due to She blacked out x1, missed a step x1, tripped x1. Her fall resulted in the following injury: Knee in 08/25. KRISTEN has a fear of falling. She does not need assistance with sitting, standing or walking. Does not need assistance walking in her home. She does not need assistance in an unfamiliar setting. The patient is not using an assistive device. Pain Scale: On a scale of 0 to 10, the patient rates the pain at 2. Please identify location of pain: R knee. Pain Quality: aching. Insurance Insurance reviewed Visit number: 10 Authorization not required after evaluation POC: 05/19 Medicare (no prior PT 2019) Supervising PT: Patience Salcedo PT, DPT, Cert DN PT Dx:M25.561; M25.661; R26.9; M17.0; S82.141D Onset Date: 2020 Beginnin2020 Endin2020 Subjective Patient reports:. Patient denies any report of pain this date in the clinic. States that she is still having some trouble with her balance. Notes that she was at her grandson's baseball game on Wednesday. States that she had more strength when going up the bleacher steps. Patient identified by name and date of . Home program performing as directed: Yes. Precautions: Fall Risk: moderate L4-L5 involvement causing back pain; Limited visual field due to eye surgeries; Hx CVA; DM;. Treatment Time in clinic started at 09:16 Time in clinic ended at 9:58 Total time in clinic is 43 minutes. Total timed code time is 42 minutes. Therapeutic exercise (93685): timed minutes 42, units 3 . Bike 6? Level 2 NuStep 5? level 2 (X) Slant Board 2 x 1? Stnd HS stretch 10x10? Holds RLE Step ups -fwd 6? 2 x 10 -lat 4? x10 SLS 2 x 30? finger touch down Running man 2 x 20? B/L on BOSU single Digit A and single UE perturbations Standing hip abd 2x10 on Airex Standing hip ext 2x10 on Airex Step ups fwd 6' step 2 x 10 Squats Airex 2 x 10 Tandem stance 3 x 20" Supine hip flexor EOB stretch RLE 5x20? holds SAQ 2 x 10 B LE?s 1.5# ankle wt (P wt) (X not time) QS w/ SLR 2 x 10 B LE?s supine with SLR 0# ankle wt (Held weight per pt.) Seated HS curls orange band 2x10 (x not time Seated LAQ 0# x10 B D/C: Seated QS 10x5" holds D/C to HEP NuStep 5?(X) Seated GS/HS stretch w/ strap 5x10" holds Bridge 2 x 10 3-5? hold S/L Clamshell 2 x 10 orange band . Manual Therapy (74404):. Not (more content not included)... Normal [facility] CREATININEon 09-25-2020 Creatinine [Mass/Vol] 1.28 mg/dL High 0.50-0.[address] [facility] Comment on above: Result Comment: For patients >49 years of age, the reference limit for Creatinine is approximately 13% higher for people identified as -Citizen Of The [place]. Performed By: #### 3 06, 294 #### [facility], [address] [place] [address] Brick Baker: Say Montalvo MD Creatinine [Mass/Vol] 43 mL/min/1.73m2 Low > OR = 6 0 [facility] Comment on above: Performed By: #### 3 75, 294 #### [facility], [address] [place] [address] Brick Baker: Say Montalvo MD Creatinine [Mass/Vol] 50 mL/min/1.73m2 Low > OR = 6 0 [facility] Comment on above: Performed By: #### 3 75, 294 #### [facility], [address] [place] [address] Brick Baker: Say Montalvo MD UREA NITROGEN (BUN)on 2020 Urea nitrogen [Mass/Vol] 27 mg/dL High 03-30 [facility] Comment on above: Performed By: #### 3 75, 294 #### [facility], [address] [place] [address] Brick Baker: Say Montavlo MD [place] ORT LARGE JOINT ARTHROCEN [facility] 08-10-2020 Eliecer iHll CNP 08/10/2020 3:05 PM LG Jt Injection/Arthrocentesi s: R knee Performed by: Eliecer Hill CNP Authorized by: Eliecer Hill CNP CPT 64075 - Large Joint Arthrocentesis: Consent given by: Patient Time out: Immediately prior to the procedure a time out was called Physician or proceduralist has discussed critical or nonroutine steps, procedure duration and anticipated blood loss: Yes Supporting Documentation: Indications: Pain, joint swelling and diagnostic evaluation Procedure Details: Location: Knee Site: R knee Prep: patient was prepped and draped in usual sterile fashion Needle size: 22 G Approach: Anterolateral Medications: 40 mg triamcinolone acetonide 40 mg/mL Anesthetic used: Lidocaine 1% Anesthetic amount (mL): 2 Patient tolerance: Patient tolerated the procedure well with no immediate complications [facility] Eliecer Hill CNP 08/10/2020 3:05 PM LG Jt Injection/Arthrocentesi s: R greater trochanteric bursa Performed by: Eliecer Hill CNP Authorized by: Eliecer Hill CNP CPT 95810 - Large Joint Arthrocentesis: Consent given by: Patient Time out: Immediately prior to the procedure a time out was called Physician or proceduralist has discussed critical or nonroutine steps, procedure duration and anticipated blood loss: Yes Supporting Documentation: Indications: Diagnostic evaluation and pain Procedure Details: Location: Hip Site: R greater trochanteric bursa Prep: patient was prepped and draped in usual sterile fashion Needle size: 22 G Medications: 40 mg triamcinolone acetonide 40 mg/mL Anesthetic used: Lidocaine 1% Anesthetic amount (mL): 2 Patient tolerance: Patient tolerated the procedure well with no immediate complications [facility] Eliecer Hill CNP 08/10/2020 3:05 PM LG Jt Injection/Arthrocentesi s: L greater trochanteric bursa Performed by: Eliecer Hill CNP Authorized by: Eliecer Hill CNP CPT 34799 - Large Joint Arthrocentesis: Consent given by: Patient Time out: Immediately prior to the procedure a time out was called Physician or proceduralist has discussed critical or nonroutine steps, procedure duration and anticipated blood loss: Yes Supporting Documentation: Indications: Diagnostic evaluation and pain Procedure Details: Location: Hip Site: L greater trochanteric bursa Prep: patient was prepped and draped in usual sterile fashion Needle size: 22 G Medications: 40 mg triamcinolone acetonide 40 mg/mL Anesthetic used: Lidocaine 1% Anesthetic amount (mL): 2 Patient tolerance: Patient tolerated the procedure well with no immediate complications [facility] CT CHEST WITHOUT CONTRASTon 07-22-2020 Stable pattern of bilateral pulmonary nodules largest measuring up to 5 mm, scattered in the upper and lower lobes bilaterally. No new or suspicious enlargement of any of the pulmonary nodules noted. I am not identifying any suspicious infiltrates. Relatively prominent atherosclerotic calcification of the [place] coronary arteries, should be closely correlated as to significance. Stable hiatal hernia, cholecystectomy. Lung-RADs 2 (S) Findings: Perifissural nodules(s): <10 mm (Solid nodules with smooth margins, an oval, lentiform or triangular shape, and maximum diameter less than 10 mm (perifissural nodules) should be classified as category 2.) Solid nodule(s): <6 mm or new <4 mm; part solid nodule(s) <6 mm total diameter on baseline screening; nonsolid nodule(s) (GGN): <30 mm or greater than/equal to 30 mm and unchanged or slowly growing; category 3 or 4 nodules unchanged for greater than/equal to 3 months. Management: Continue annual screening with LDCT in 12 months. Significance of the coronary artery atherosclerotic calcifications should be closely correlated. [facility]/ Workstation ID: [id number] [facility] EXAMINATION: CT CHES T WITHOUT CONTRAST HISTORY: ORDERING SYSTEM PROVIDED HISTORY: Lung nodule, < 6mm, low cancer risk, follow up exam, TECHNOLOGIST PROVIDED HISTORY: Illness/Other Reason for exam: f/u lung nodule Encounter Type: Initial Additional signs and symptoms: . ORDERING SYSTEM PROVIDED DIAGNOSIS CODES: R91.8 Lung nodules COMPARISON: July 19, 2019. TECHNIQUE: CT examination of the chest without IV contrast. Coronal and sagittal reformations were performed. Dose reduction techniques were achieved by using automated exposure control and/or adjustment of mA and/or kV according to patient size and/or use of iterative reconstruction technique. FINDINGS: The heart is not enlarged, the great vessels are normal caliber and configuration. I do see atherosclerotic calcification involving the [place] coronary arteries, and to a very mild degree the aortic arch. There are no enlarged mediastinal lymph nodes. Small direct hiatal hernia noted at the gastroesophageal junction. The supraclavicular, axillary, chest wall structures are stable. In the upper abdomen gallbladder is noted absent. The bony structures of the thoracic spine and sternum appear to be intact. Lung parenchymal windows again show several small less than 3 mm solid and semisolid nodules present in the lung apices. A slightly larger oval nodule measuring up to 5 mm long axis in the right apex is also stable. Stable fissural nodule in the lower portion of the right upper lobe noted, as well as a small subpleural lateral middle lobe and right lower lobe nodule. Several small 4 mm and less nodules are seen in the left lower lobe. I am not identifying any certain new or enlarging nodule, or suspicious infiltrate. [facility] Interface, Rad In Fu ji Speechq - 07/22/2020 11:39 AM EST EXAMINATION: CT CHEST WITHOUT CONTRAST HISTORY: ORDERING SYSTEM PROVIDED HISTORY: Lung nodule, < 6mm, low cancer risk, follow up exam, TECHNOLOGIST PROVIDED HISTORY: Illness/Other Reason for exam: f/u lung nodule Encounter Type: Initial Additional signs and symptoms: . ORDERING SYSTEM PROVIDED DIAGNOSIS CODES: R91.8 Lung nodules COMPARISON: July 19, 2019. TECHNIQUE: CT examination of the chest without IV contrast. Coronal and sagittal reformations were performed. Dose reduction techniques were achieved by using automated exposure control and/or adjustment of mA and/or kV according to patient size and/or use of iterative reconstruction technique. FINDINGS: The heart is not enlarged, the great vessels are normal caliber and configuration. I do see atherosclerotic calcification involving the [place] coronary arteries, and to a very mild degree the aortic arch. There are no enlarged mediastinal lymph nodes. Small direct hiatal hernia noted at the gastroesophageal junction. The supraclavicular, axillary, chest wall structures are stable. In the upper abdomen gallbladder is noted absent. The bony structures of the thoracic spine and sternum appear to be intact. Lung parenchymal windows again show several small less than 3 mm solid and semisolid nodules present in the lung apices. A slightly larger oval nodule measuring up to 5 mm long axis in the right apex is also stable. Stable fissural nodule in the lower portion of the right upper lobe noted, as well as a small subpleural lateral middle lobe and right lower lobe nodule. Several small 4 mm and less nodules are seen in the left lower lobe. I am not identifying any certain new or enlarging nodule, or suspicious infiltrate. IMPRESSION: Stable pattern of bilateral pulmonary nodules largest measuring up to 5 mm, scattered in the upper and lower lobes bilaterally. No new or suspicious enlargement of any of the pulmonary nodules noted. I am not identifying any suspicious infiltrates. Relatively prominent atherosclerotic calcification of the [place] coronary arteries, should be closely correlated as to significance. Stable hiatal hernia, cholecystectomy. Lung-RADs 2 (S) Findings: Perifissural nodules(s): <10 mm (Solid nodules with smooth margins, an oval, lentiform or triangular shape, and maximum diameter less than 10 mm (perifissural nodules) should be classified as category 2.) Solid nodule(s): <6 mm or new <4 mm; part solid nodule(s) <6 mm total diameter on baseline screening; nonsolid nodule(s) (GGN): <30 mm or greater than/equal to 30 mm and unchanged or slowly growing; category 3 or 4 nodules unchanged for greater than/equal to 3 months. Management: Continue annual screening with LDCT in 12 months. Significance of the coronary artery atherosclerotic calcifications should be closely correlated. NTP/hb Workstation ID: [id number] [facility] ECG 12-LEADon 06-07-2020 Atrial Rate [facility] P Witherbee [facility] P-R Interval [facility] Q-T Interval [facility] Q-T Interval (corrected) [facility] QRS Duration [facility] QTC Calculation (Bezet) [facility] R Witherbee [facility] T Witherbee [facility] Ventricular Rate [facility] th CULTURE, URINE, ROUTINEon CULTURE, URINE, ROUTINE SEE NOTE Abnormal [facility] Comment on above: Result Comment: CULTURE, URINE, ROUTINE Micro Number: [id number] Test Status: Final Specimen Source: URINE, CLEAN CATCH Specimen Quality: Adequate Result: 10,000-50,000 CFU/mL of Klebsiella pneumoniae 10,000-50,000 CFU/mL of Group B Streptococcus isolated Beta-hemolytic Streptococci are predictably susceptible to penicillin and other beta-lactams. Susceptibility testing not routinely performed. K.pneumoniae INT MARTA AMOX/CLAVULANATE S <=2 AMPICILLIN R 16 AMP/SULBACTAM S 4 CEFAZOLIN NR <=4 2 CEFEPIME S <=1 CEFTRIAXONE S <=1 CIPROFLOXACIN S <=0.25 ERTAPENEM S <=0.5 GENTAMICIN S <=1 IMIPENEM S <=0.25 LEVOFLOXACIN S <=0.12 NITROFURANTOIN R 128 PIP/TAZOBACTAM S <=4 TOBRAMYCIN S <=1 TRIMETHOPRIM/SULFA S <=20 S=Susceptible I=Intermediate R=Resistant * = Not Tested NR = Not Reported NN = See Therapy Comments THERAPY COMMENTS Note 1: For infections other than uncomplicated UTI caused by E. coli, K. pneumoniae or P. mirabilis: Cefazolin is resistant if MARTA > or = 8 mcg/mL. (Distinguishing susceptible versus intermediate for isolates with MRATA < or = 4 mcg/mL requires additional testing.) Note 2: For uncomplicated UTI caused by E. coli, K. pneumoniae or P. mirabilis: Cefazolin is susceptible if MARTA <32 mcg/mL and predicts susceptible to the oral agents cefaclor, cefdinir, cefpodoxime, cefprozil, cefuroxime, cephalexin and loracarbef. Performed By: #### 3 95 #### [facility] [address] [place] [place] [address] Brick Baker: Say Montalvo MD DEJUAN SCREEN, IFA, W/REFL TITE R AND PATTERNon 04-05-2020 DEJUAN SCREEN, IFA Negative Normal NEGATIVE [facility] Comment on above: Result Comment: DEJUAN IFA is a first line screen for detecting the presence of up to approximately 150 autoantibodies in various autoimmune diseases. A negative DEJUAN IFA result suggests an DEJUAN-associated autoimmune disease is not present at this time, but is not definitive. If there is high clinical suspicion for Sjogren's syndrome, testing for anti-SS-A/Ro antibody should be considered. Anti-Fadumo-1 antibody should be considered for clinically suspected inflammatory myopathies. AC-0: Negative International Consensus on DEJUAN Patterns (https://doi.org/10.1515/joze-6056-9775) For additional information, please refer to http://education.Team My Mobile.Sparkfly/faq/YQB792 (This link is being provided for informational/ educational purposes only.) Performed By: #### 3 75, 294 #### [facility] [address] Brick Baker: Say Montalvo MD C-REACTIVE PROTEINon 020 CRP [Mass/Vol] 23.1 mg/L High <8.0 [facility] Comment on above: Performed By: #### 3 75, 294 #### [facility] [place] [address] Brick Baker: Say Montalvo MD CBC (INCLUDES DIFF/PLT)on Basophils (Bld) [#/Vol] 0.073 10*3/uL Normal 0-200 [facility] Comment on above: Performed By: #### 3 6127, 28582, 6399, 374, 4418, 4420, 809, 91436 #### [facility] [address] Brick Baker: Say Montalvo MD Basophils/100 WBC (Bld) 0.6 % Normal [facility] Comment on above: Performed By: #### 3 6127, 79077, 6399, 374, 4418, 4420, 809, 29646 #### [facility] [address], [address] [place] [address] Brick Baker: Say Montalvo MD Eosinophils (Bld) [#/Vol] 0.315 10*3/uL Normal 15-500 [facility] Comment on above: Performed By: #### 3 6127, 36146, 6399, 374, 4418, 4420, 809, 86695 #### [facility] [address], [address] [place] [address] Brick Baker: Say Montalvo MD Eosinophils/100 WBC (Bld) 2.6 % Normal [facility] Comment on above: Performed By: #### 3 6127, 44169, 6399, 374, 4418, 4420, 809, 08720 #### [facility] [address], [address] [place] [address] Brick Baker: Say Montalvo MD Erythrocyte distribution width (RBC) [Ratio] 13.7 % Normal 11.0-15.0 [facility] Comment on above: Performed By: #### 3 6127, 17699, 6399, 374, 4418, 4420, 809, 09730 #### [facility] [address], [address] [place] [address] Brick Baker: Say Montalvo MD Hematocrit (Bld) [Volume fraction] 37.4 % Normal 35.0-45.0 [facility] Comment on above: Performed By: #### 3 6127, 38634, 6399, 374, 4418, 4420, 809, 08320 #### [facility] [address], [address] [place] [address] Brick Baker: Say Montalvo MD Hemoglobin (Bld) [Mass/Vol] 12.2 g/dL Normal 11.7-15.5 [facility] Comment on above: Performed By: #### 3 6127, 68824, 6399, 374, 4418, 4420, 809, 51988 #### [facility] [address], [address] [place] [address] Brick Baker: Say Montalvo MD Lymphocytes (Bld) [#/Vol] 2.42 10*3/uL Normal 850-3900 [facility] Comment on above: Performed By: #### 3 6127, 53123, 6399, 374, 4418, 4420, 809, 24339 #### [facility] [address] , [address] [place] [address] Brick Baker: Say Montalvo MD Lymphocytes/100 WBC (Bld) 20.0 % Normal [facility] Comment on above: Performed By: #### 3 6127, 68786, 6399, 374, 4418, 4420, 809, 99773 #### [facility] [address] Brick Baker: Say Montalvo MD MCH (RBC) [Entitic mass] 29.0 pg Normal 27.0-33.0 [facility] Comment on above: Performed By: #### 3 6127, 54106, 6399, 374, 4418, 4420, 809, 28674 #### [facility] [address] , [address] [place] [address] Brick Baker: Say Montalvo MD MCHC (RBC) [Mass/Vol] 32.6 g/dL Normal 32.0-36.[address] [facility] Comment on above: Performed By: #### 3 6127, 40506, 6399, 374, 4418, 4420, 809, 91882 #### [facility] [address] [place] [address] Brick Baker: Say Montalvo MD MCV (RBC) [Entitic vol] 88.8 fL Normal 80.0-100.0 [facility] u[facility] Comment on above: Performed By: #### 3 6127, 15473, 6399, 374, 4418, 4420, 809, 33899 #### [facility] [address] [place] [address] Brick Baker: Say Montalvo MD Monocytes (Bld) [#/Vol] 0.871 10*3/uL Normal 200-950 [facility] Comment on above: Performed By: #### 3 6127, 98700, 6399, 374, 4418, 4420, 809, 87442 #### [facility] [address], [address] [place] [id number] Brick Baker: Say Montalvo MD Monocytes/100 WBC (Bld) 7.2 % Normal [facility] Comment on above: Performed By: #### 3 6127, 01589, 6399, 374, 4418, 4420, 809, 90139 #### [facility] [address], [address] [place] [address] Brick Baker: Say Montalvo MD Neutrophils (Bld) [#/Vol] 8.422 10*3/uL High 2979-0924 [facility] Comment on above: Performed By: #### 3 6127, 90093, 6399, 374, 4418, 4420, 809, 87275 #### [facility] [address], [address] [place], [place] [address] Brick Baker: Say Montalvo MD Neutrophils/100 WBC (Bld) 69.6 % Normal [facility] Comment on above: Performed By: #### 3 6127, 50018, 6399, 374, 4418, 4420, 809, 53017 #### [facility] [address], [address] [place], [place] [address] Brick Baker: Say Montalvo MD Platelet mean volume (Bld) [Entitic vol] 9.8 fL Normal 7.5-12.5 [facility] Comment on above: Performed By: #### 3 6127, 20895, 6399, 374, 4418, 4420, 809, 70025 #### [facility] [address], [address] [place] [id number] Brick Baker: Say Montalvo MD Platelets (Bld) [#/Vol] 361 10*3/uL Normal 140-400 [facility] Comment on above: Performed By: #### 3 6127, 38090, 6399, 374, 4418, 4420, 809, 87514 #### [facility] [address], [address] [place] [address] Brick Baker: Say Montalvo MD RBC (Bld) [#/Vol] 4.21 10*6/uL Normal 3.80-5.10 [facility] Comment on above: Performed By: #### 3 6127, 92249, 6399, 374, 4418, 4420, 809, 31515 #### [facility] [address], [address] [place] [address] Brick Baker: Say Montalvo MD WBC (Bld) [#/Vol] 12.1 10*3/uL High 3.8-10.8 [facility] Comment on above: Performed By: #### 3 6127, 96204, 6399, 374, 4418, 4420, 809, 15622 #### [facility], [address] [place] [address] Brick Baker: Say Montalvo MD [facility] METABOLIC P[facility] 04-05-2020 Albumin [Mass/Vol] 3.6 g/dL Normal 3.6-5.1 [facility] Comment on above: Performed By: #### 3 6127, 90191, 6399, 374, 4418, 4420, 809, 85348 #### [facility] [address] [place] [address] Brick Baker: Say Montalvo MD Albumin/Globulin [Mass ratio] 1.2 (calc) Normal 1.0-2.5 [facility] Comment on above: Performed By: #### 3 6127, 18338, 6399, 374, 4418, 4420, 809, 24469 #### [facility] [address] , [address] [place] [address] Brick Baker: Say Montalvo MD ALP [Catalytic activity/Vol] 105 U/L Normal 37-153 [facility] Comment on above: Performed By: #### 3 6127, 65981, 6399, 374, 4418, 4420, 809, 89418 #### [facility] [address] , [address] [place] [address] Brick Baker: Say Montalvo MD ALT [Catalytic activity/Vol] 10 U/L Normal 6-29 [facility] Comment on above: Performed By: #### 3 6127, 30595, 6399, 374, 4418, 4420, 809, 05744 #### [facility] [address] , [address] [place] [address] Brick Baker: Say Montalvo MD AST [Catalytic activity/Vol] 12 U/L Normal 10-35 [facility] Comment on above: Performed By: #### 3 6127, 16935, 6399, 374, 4418, 4420, 809, 99281 #### [facility]-[address], [address] [place] [address] Brick Baker: Say Montalvo MD Bilirubin [Mass/Vol] 0.4 mg/dL Normal 0.2-1.2 [facility] Comment on above: Performed By: #### 3 6127, 14552, 6399, 374, 4418, 4420, 809, 06680 #### [facility]-[address], [address] [place] [address] Brick Baker: Say Montalvo MD Calcium [Mass/Vol] 8.9 mg/dL Normal 8.6-10.4 [facility] Comment on above: Performed By: #### 3 6127, 93580, 6399, 374, 4418, 4420, 809, 75455 #### [facility]-[address], [address] [place] [address] Brick Baker: Say Montalvo MD Chloride [Moles/Vol] 101 mmol/L Normal 98-110 [facility] Comment on above: Performed By: #### 3 6127, 77082, 6399, 374, 4418, 4420, 809, 88329 #### [facility] , [address] [place] [address] Brick Baker: Say Montalvo MD CO2 [Moles/Vol] 23 mmol/L Normal 20-32 [facility] Comment on above: Performed By: #### 3 6127, 63062, 6399, 374, 4418, 4420, 809, 74200 #### [facility] [address], [address] [place] [address] Brick Baker: Say Montalvo MD Creatinine [Mass/Vol] 1.14 mg/dL High 0.50-0.99 [facility] Comment on above: Result Comment: For patients >49 years of age, the reference limit for Creatinine is approximately 13% higher for people identified as -Citizen Of The [place]. Performed By: #### 3 6127, 47790, 6399, 374, 4418, 4420, 809, 61548 #### [facility]-[address], [address] [place] [address] Brick Baker: Say Montalvo MD eGFR NON-AFR. NIGERIEN 49 mL/min/1.73m2 Low > OR = 60 [facility] Comment on above: Performed By: #### 3 6127, 48734, 6399, 374, 4418, 4420, 809, 19135 #### [facility]-[address], [address] [place] [address] Brick Baker: Say Montalvo MD GFR/1.73 sq M predicted among blacks MDRD (S/P/Bld) [Vol rate/Area] 57 mL/min/{1.73_m2} Low > OR = 60 [facility] Comment on above: Performed By: #### 3 6127, 34397, 6399, 374, 4418, 4420, 809, 62588 #### [facility], [address] [place] [address] Brick Baker: Say Montalvo MD Globulin (S) [Mass/Vol] 3.1 g/dL (calc) Normal 1.9-3.7 [facility] Comment on above: Performed By: #### 3 6127, 67110, 6399, 374, 4418, 4420, 809, 97734 #### [facility], [address] [place] [address] Brick Baker: Say Montalvo MD Glucose [Mass/Vol] 401 mg/dL High 65-99 [facility] Comment on above: Result Comment: Veri fied by repeat analysis. Fasting reference interval For someone without known diabetes, a glucose value >125 mg/dL indicates that they may have diabetes and this should be confirmed with a follow-up test. Performed By: #### 3 6127, 66212, 6399, 374, 4418, 4420, 809, 02286 #### [facility]-[address], [address] [place] [address] Brick Baker: Say Montalvo MD Potassium [Moles/Vol] 4.2 mmol/L Normal 3.5-5.3 [facility] Comment on above: Performed By: #### 3 6127, 48721, 6399, 374, 4418, 4420, 809, 70155 #### [facility] [address] Brick Baker: Say Montalvo MD Protein [Mass/Vol] 6.7 g/dL Normal 6.1-8.1 [facility] Comment on above: Performed By: #### 3 6127, 82472, 6399, 374, 4418, 4420, 809, 78430 #### [facility], [address] [place] [address] Brick Baker: Say Montalvo MD Sodium [Moles/Vol] 134 mmol/L Low 135-146 [facility] Comment on above: Performed By: #### 3 6127, 47827, 6399, 374, 4418, 4420, 809, 43844 #### [facility] [address] Brick Baker: Say Montalvo MD Urea nitrogen [Mass/Vol] 24 mg/dL Normal 7-25 [facility] Comment on above: Performed By: #### 3 6127, 14038, 6399, 374, 4418, 4420, 809, 67932 #### [facility] [address] Brick Baker: Say Montalvo MD Urea nitrogen/Creatinine [Mass ratio] 21 mg/mg Normal 6-22 [facility] Comment on above: Performed By: #### 3 6127, 73411, 6399, 374, 4418, 4420, 809, 43964 #### [facility] [address], [address] [place] [address] Brick Baker: Say Montalvo MD CREATINE KINASE, TOTALon CREATINE KINASE, TOTAL 116 U/L Normal 29-143 [facility] Comment on above: Performed By: #### 3 6127, 01435, 6399, 374, 4418, 4420, 809, 77160 #### [facility] [address], [address] [place] [address] Brick Baker: Say Montalvo MD EXTRA SPECIMENon 04-05-2020 EXTRA TUBE RECEIVED Normal [facility] Comment on above: Result Comment: An e xtra specimen was received with no test requested. The specimen will be maintained in storage in case additional testing is needed. Please call the client service department for further assistance. Performed By: #### 8 837, 58723 #### [facility] [address] , [address] [place] [address] Brick Baker: Say Montalvo MD SPECIMEN TYPE RECEIVED Frozen Whole Blood; Normal [facility] Comment on above: Performed By: #### 8 837, 85042 #### [facility] [address] , [address] [place] [address] Brick Baker: Say Montalvo MD PTH, INTACT AND CALCIUMon Calcium [Mass/Vol] 9.0 mg/dL Normal 8.6-10.4 [facility] Comment on above: Performed By: #### 8 837, 33800 #### [facility] [address], [address] [place] [address] Brick Baker: Say Montalvo MD PARATHYROID HORMONE, INTACT Normal [facility] Comment on above: Result Comment: FROZ EN WHOLE BLOOD NOT ACCEPTABLE FOR TESTING, REQUIRES PLASMA TEST NOT PERFORMED No suitable specimen received. Performed By: #### 8 837, 75339 #### [facility] [address], [address] [place] [address] Brick Baker: Say Montalvo MD RHEUMATOID FACTORon 04-05-20 20 RHEUMATOID FACTOR 16 IU/mL High <14 [facility] Comment on above: Performed By: #### 3 75, 294 #### [facility], [address] [place] [address] Brick Baker: Say Montalvo MD SED RATE BY MODIFIED WESTERG RENon 04-05-2020 SED RATE BY MODIFIED WESTERGREN 41 mm/h High < OR = 30 [facility] Comment on above: Performed By: #### 3 6127, 34858, 6399, 374, 4418, 4420, 809, 93793 #### [facility], [address] [place] [address] Brick Baker: Say Montalvo MD TSH W/REFLEX TO FT4on 2019 TSH W/REFLEX TO FT4 3.14 mIU/L Normal 0.40-4.50 [facility] Comment on above: Performed By: #### 3 75, 294 #### [facility], [address] [place] [address] Brick Baker: Say Montalvo MD VITAMIN D,25-OH,TOTAL,IAon 0 04-05-2020 VITAMIN D,25-OH,TOTAL,IA 19 ng/mL Low 30-100 [facility] Comment on above: Result Comment: Anamaria min D Status 25-OH Vitamin D: Deficiency: <20 ng/mL Insufficiency: 20 - 29 ng/mL Optimal: > or = 30 ng/mL For 25-OH Vitamin D testing on patients on D2-supplementation and patients for whom quantitation of D2 and D3 fractions is required, the Quest[facility]ure[facility](TM) 25-OH VIT D, (D2,D3), LC/MS/MS is recommended: order code 75298 (patients >2yrs). See Note 1 Note 1 For additional information, please refer to http://[email or web address] (This link is being provided for informational/ educational purposes only.) Performed By: #### 3 75, 294 #### [facility]-[address], [address] [place] [address] Brick Baker: Say Montalvo MD SARS CoV 2 RNA(COVID 19), QU ALITATIVE NAATon 03-27-2020 SARS CoV 2 RNA NOT DETECTED Normal NOT DETECTED [facility] Comment on above: Result Comment: A Not Detected (negative) test result for this test means that SARS- CoV-2 RNA was not present in the specimen above the limit of detection. A negative result does not rule out the possibility of COVID-19 and should not be used as the sole basis for treatment or patient management decisions. If COVID-19 is still suspected, based on exposure history together with other clinical findings, re-testing should be considered in consultation with public health authorities. Laboratory test results should always be considered in the context of clinical observations and epidemiological data in making a final diagnosis and patient management decisions. Please review the "Fact Sheets" and FDA authorized labeling available for health care providers and patients using the following websites: [email or web address]-[email or web address]/[email or web address]/fact-s heet2 [email or web address]://[email or web address]/home/Covid-19/Patients/NAAT/ fact-sheet2 This test has been authorized by the FDA under an Emergency Use Authorization (EUA) for use by authorized laboratories. Due to the current public health emergency, [facility] is receiving a high volume of samples from a wide variety of swabs and media for COVID-19 testing. In order to serve patients during this public health crisis, samples from appropriate clinical sources are being tested. Negative test results derived from specimens received in non-commercially manufactured viral collection and transport media, or in media and sample collection kits not yet authorized by FDA for COVID-19 testing should be cautiously evaluated and the patient potentially subjected to extra precautions such as additional clinical monitoring, including collection of an additional specimen. Methodology: Nucleic Acid Amplification Test (NAAT) includes PCR or TMA Additional information about COVID-19 can be found at the [facility] website: [email or web address]. Performed By: #### 3 9448 #### [facility] [address] [facility], [address] [place] [id number] Brick Baker: Say Montalvo MD [place] ORT LARGE JOINT ARTHROCEN TESISon 02-19-2020 Wellington Hylton [employer]IST 02/19/2020 1:40 PM LG Jt Injection/Arthrocentesi s: R greater trochanteric bursa Performed by: Elba Reyes CNP Authorized by: Elba Reyes CNP CPT 51201 - Large Joint Arthrocentesis: Consent given by: Patient Time out: Immediately prior to the procedure a time out was called Physician or proceduralist has discussed critical or nonroutine steps, procedure duration and anticipated blood loss: Yes Supporting Documentation: Indications: Pain Procedure Details: Location: Hip Site: R greater trochanteric bursa Prep: patient was prepped and draped in usual sterile fashion Needle size: 22 G Approach: Lateral Medications: 1 mL dexamethasone 4 mg/mL, 1 mL triamcinolone acetonide 40 mg/mL Anesthetic used: Bupivacaine 0.5% and Lidocaine 1% Anesthetic amount (mL): 4 Patient tolerance: Patient tolerated the procedure well with no immediate complications [facility] Wellington Hylton [employer] SPECIALIST 02/19/2020 1:40 PM LG Jt Injection/Arthrocentesi s: L greater trochanteric bursa Performed by: Elba Reyes CNP Authorized by: Elba Reyes CNP [facility] [id number] - Large Joint Arthrocentesis: Consent given by: Patient Time out: Immediately prior to the procedure a time out was called Physician or proceduralist has discussed critical or nonroutine steps, procedure duration and anticipated blood loss: Yes Supporting Documentation: Indications: Pain Procedure Details: Location: Hip Site: L greater trochanteric bursa Prep: patient was prepped and draped in usual sterile fashion Needle size: 22 G Approach: Lateral Medications: 1 mL dexamethasone 4 mg/mL, 1 mL triamcinolone acetonide 40 mg/mL Anesthetic used: Bupivacaine 0.5% and Lidocaine 1% Anesthetic amount (mL): 4 Patient tolerance: Patient tolerated the procedure well with no immediate complications [facility] LARGE JOINT ARTHROCEN TESISon 10-30-2019 Wellington Hylton NP 10/30/2019 12:42 PM LG Jt Injection/Arthrocentesi s: R greater trochanteric bursa Performed by: Elba Reyes CNP Authorized by: Elba Reyes CNP [facility] [address]50 - Large Joint Arthrocentesis: Consent given by: Patient Time out: Immediately prior to the procedure a time out was called Physician or proceduralist has discussed critical or nonroutine steps, procedure duration and anticipated blood loss: Yes Supporting Documentation: Indications: Pain Procedure Details: Location: Hip Site: R greater trochanteric bursa Prep: patient was prepped and draped in usual sterile fashion Needle size: 22 G Approach: Lateral Medications: 1 mL dexamethasone 4 mg/mL, 1 mL triamcinolone acetonide 40 mg/mL Anesthetic used: Bupivacaine 0.5% and Lidocaine 1% Anesthetic amount (mL): 4 Patient tolerance: Patient tolerated the procedure well with no immediate complications [facility] Wellington Hylton NP 10/30/2019 12:42 PM LG Jt Injection/Arthrocentesi s: L greater trochanteric bursa Performed by: Elba Reyes CNP Authorized by: Elba Reyes CNP CPT 56606 - Large Joint Arthrocentesis: Consent given by: Patient Time out: Immediately prior to the procedure a time out was called Physician or proceduralist has discussed critical or nonroutine steps, procedure duration and anticipated blood loss: Yes Supporting Documentation: Indications: Pain Procedure Details: Location: Hip Site: L greater trochanteric bursa Prep: patient was prepped and draped in usual sterile fashion Needle size: 22 G Approach: Lateral Medications: 1 mL dexamethasone 4 mg/mL, 1 mL triamcinolone acetonide 40 mg/mL Anesthetic used: Bupivacaine 0.5% and Lidocaine 1% Anesthetic amount (mL): 4 Patient tolerance: Patient tolerated the procedure well with no immediate complications [facility] Other 08-11-2019 Nuclear Report _ Patient: MEL Dodge [facility] Rec#: [id number] (Age): 1950(69y) Height: Study Date: 08/11/2019 Weight: Room#: BSA: Type: Outpatient Loc: Sex: F _ Indications: -Abnormal ECG -Dyspnea - Orthopnea - Checklists: -Patient verbally identified self -Consent signed and placed in chart -Procedure verified and explained to patient -Medication Reconciliation completed. -Discharge instructions given [facility] Conclusion: Normal exercise myocardial perfusion with Tc-99m tetrofosmin imaging. Overall intermediate-risk study based on SCAI criteria (1-3% predicted annual cardiac mortality). Intermediate risk study based on functional capacity. Agosto treadmill score 3. Normal myocardial perfusion in all segments on stress imaging. No rest imaging performed. Normal left ventricular size, wall motion and systolic function with post-stress LVEF 74%. Stress ECG Conclusion: Normal exercise stress ECG . The patient experienced no chest pain. Exercise Protocol: A Agosto treadmill score of 3 was achieved. Total Exercise Time The patient exercised for a total of 03:00 min using the Standard Saeid exercise protocol, achieving stage 1 and a max METs of 4.6. A Agosto treadmill score of 3 was achieved. Baseline ECG: Normal sinus rhythm. Stress ECG : Sinus tachycardia. No ectopy noted. No ST-segment depression at greater than or equal to 85% MPHR. Recovery ECG: Sinus tachycardia. No ectopy noted. Hemodynamics REST STRESS RECOVERY SBP 128 mmHg 139 mmHg 149 mmHg DBP 78 mmHg 46 mmHg 77 mmHg HR 99 bpm 139 bpm 106 bpm %MPHR 90 % Imaging Protocol: This was a gated SPECT myocardial perfusion imaging study. A stress only imaging protocol was followed using Tc-99m tetrofosmin (Myoview) injected intravenously. For the stress portion of the study, 9.8 mCi was administered at 08/11/2019 07:58:00. Stress imaging was performed at 09:00:00. Perfusion Interpretation: Stress nuclear myocardial perfusion imaging was normal. No rest imaging was performed. The stress nuclear myocardial perfusion imaging was normal. No resting imaging was performed. Wall Motion Interpretation: The patient's calculated post stress LVEF was 74%. The patient's end diastolic volume was 43ml. The patient's end systolic volume was 10ml. Gated imaging under post-stress conditions demonstrated normal wall motion. Nuclear Doctor Interpreted Study and Electronically signed at 08/11/2019 13:50:41 by: Patricia Dowling MD [facility], Rad In [employer] - 08/11/2019 2:16 PM EST Nuclear Report _ Patient: MEL Dodge [facility] Rec#: [id number] (Age): 1950(69y) Height: Study Date: 08/11/2019 Weight: Room#: BSA: Type: Outpatient Loc: Sex: F _ Indications: -Abnormal ECG -Dyspnea - Orthopnea - Checklists: -Patient verbally identified self -Consent signed and placed in chart -Procedure verified and explained to patient -Medication Reconciliation completed. -Discharge instructions given [facility] Conclusion: Normal exercise myocardial perfusion with Tc-99m tetrofosmin imaging. Overall intermediate-risk study based on SCAI criteria (1-3% predicted annual cardiac mortality). Intermediate risk study based on functional capacity. Agosto treadmill score 3. Normal myocardial perfusion in all segments on stress imaging. No rest imaging performed. Normal left ventricular size, wall motion and systolic function with post-stress LVEF 74%. Stress ECG Conclusion: Normal exercise stress ECG . The patient experienced no chest pain. Exercise Protocol: A Agosto treadmill score of 3 was achieved. Total Exercise Time The patient exercised for a total of 03:00 min using the Standard Saeid exercise protocol, achieving stage 1 and a max METs of 4.6. A Agosto treadmill score of 3 was achieved. Baseline ECG: Normal sinus rhythm. Stress ECG : Sinus tachycardia. No ectopy noted. No ST-segment depression at greater than or equal to 85% MPHR. Recovery ECG: Sinus tachycardia. No ectopy noted. Hemodynamics REST STRESS RECOVERY SBP 128 mmHg 139 mmHg 149 mmHg DBP 78 mmHg 46 mmHg 77 mmHg HR 99 bpm 139 bpm 106 bpm %MPHR 90 % Imaging Protocol: This was a gated SPECT myocardial perfusion imaging study. A stress only imaging protocol was followed using Tc-99m tetrofosmin (Raptrview) injected intravenously. For the stress portion of the study, 9.8 mCi was administered at 08/11/2019 07:58:00. Stress imaging was performed at 09:00:00. Perfusion Interpretation: Stress nuclear myocardial perfusion imaging was normal. No rest imaging was performed. The stress nuclear myocardial perfusion imaging was normal. No resting imaging was performed. Wall Motion Interpretation: The patient's calculated post stress LVEF was 74%. The patient's end diastolic volume was 43ml. The patient's end systolic volume was 10ml. Gated imaging under post-stress conditions demonstrated normal wall motion. Nuclear Doctor Interpreted Study and Electronically signed at 08/11/2019 13:50:41 by: Patricia Dowling MD [facility] ECG 12-LEADon 08-09-2019 Atrial Rate [facility] P Witherbee [facility] P-R Interval [facility] Q-T Interval [facility] Q-T Interval (corrected) [facility] QRS Duration [facility] QTC Calculation (Bezet) [facility] R W[place]bee [facility] T Witherbee [facility] Ventricular Rate [facility] th TSHon 08-09-2019 Interpretation and review of laboratory results Normal [facility] TSH Qn 2.02 m[IU]/L [facility] [place] ORT LARGE JOINT ARTHROCEN TESISon 07-31-2019 Wellington Hylton NP 07/31/2019 12:49 PM LG Jt Injection/Arthrocentesi s: R greater trochanteric bursa Performed by: Elba Reyes CNP Authorized by: Elba Reyes CNP CPT 49224 - Large Joint Arthrocentesis: Consent given by: Patient Time out: Immediately prior to the procedure a time out was called Physician or proceduralist has discussed critical or nonroutine steps, procedure duration and anticipated blood loss: Yes Supporting Documentation: Indications: Pain Procedure Details: Location: Hip Site: R greater trochanteric bursa Prep: patient was prepped and draped in usual sterile fashion Needle size: 22 G Approach: Lateral Medications: 1 mL dexamethasone 4 mg/mL, 1 mL triamcinolone acetonide 40 mg/mL Anesthetic used: Bupivacaine 0.5% and Lidocaine 1% Anesthetic amount (mL): 4 Patient tolerance: Patient tolerated the procedure well with no immediate complications [facility] Wellington Hylton NP 07/31/2019 12:49 PM LG Jt Injection/Arthrocentesi s: L greater trochanteric bursa Performed by: Elba Reyes CNP Authorized by: Elba Reyes CNP [facility] [id number] - Large Joint Arthrocentesis: Consent given by: Patient Time out: Immediately prior to the procedure a time out was called Physician or proceduralist has discussed critical or nonroutine steps, procedure duration and anticipated blood loss: Yes Supporting Documentation: Indications: Pain Procedure Details: Location: Hip Site: L greater trochanteric bursa Prep: patient was prepped and draped in usual sterile fashion Needle size: 22 G Approach: Lateral Medications: 1 mL dexamethasone 4 mg/mL, 1 mL triamcinolone acetonide 40 mg/mL Anesthetic used: Bupivacaine 0.5% and Lidocaine 1% Anesthetic amount (mL): 4 Patient tolerance: Patient tolerated the procedure well with no immediate complications [facility] LARGE JOINT ARTHROCEN [facility] 04-20-2019 Wellington Hylton [employer] SPECIALIST 04/20/2019 8:25 AM LG Jt Injection/Arthrocentesi s: L greater trochanteric bursa Performed by: Elba Reyes CNP Authorized by: Elba Reyes CNP [facility] [id number] - Large Joint Arthrocentesis: Consent given by: Patient Time out: Immediately prior to the procedure a time out was called Physician or proceduralist has discussed critical or nonroutine steps, procedure duration and anticipated blood loss: Yes Supporting Documentation: Indications: Pain Procedure Details: Location: Hip Site: L greater trochanteric bursa Prep: patient was prepped and draped in usual sterile fashion Needle size: 22 G Approach: Lateral Medications: 1 mL dexamethasone 4 mg/mL, 1 mL triamcinolone acetonide 40 mg/mL Anesthetic used: Bupivacaine 0.5% and Lidocaine 1% Anesthetic amount (mL): 4 Patient tolerance: Patient tolerated the procedure well with no immediate complications [facility] Wellington Hylton NP 04/20/2019 8:25 AM LG Jt Injection/Arthrocentesi s: R greater trochanteric bursa Performed by: Elba Reyes CNP Authorized by: Elba Reyes CNP [facility] [id number] - Large Joint Arthrocentesis: Consent given by: Patient Time out: Immediately prior to the procedure a time out was called Physician or proceduralist has discussed critical or nonroutine steps, procedure duration and anticipated blood loss: Yes Supporting Documentation: Indications: Pain Procedure Details: Location: Hip Site: R greater trochanteric bursa Prep: patient was prepped and draped in usual sterile fashion Needle size: 22 G Approach: Lateral Medications: 1 mL dexamethasone 4 mg/mL, 1 mL triamcinolone acetonide 40 mg/mL Anesthetic used: Bupivacaine 0.5% and Lidocaine 1% Anesthetic amount (mL): 4 Patient tolerance: Patient tolerated the procedure well with no immediate complications [facility] 01-16-2019 Wellington Hylton [employer] SPECIALIST 01/16/2019 1:38 PM LG Jt Injection/Arthrocentesi s: R greater trochanteric bursa Performed by: Elba Reyes CNP Authorized by: Elba Reyes CNP CPT 25776 - Large Joint Arthrocentesis: Consent given by: Patient Time out: Immediately prior to the procedure a time out was called Physician or proceduralist has discussed critical or nonroutine steps, procedure duration and anticipated blood loss: Yes Supporting Documentation: Indications: Pain Procedure Details: Location: Hip Site: R greater trochanteric bursa Prep: patient was prepped and draped in usual sterile fashion Needle size: 22 G Approach: Lateral Medications: 1 mL dexamethasone 4 mg/mL, 1 mL triamcinolone acetonide 40 mg/mL Anesthetic used: Bupivacaine 0.5% and Lidocaine 1% Anesthetic amount (mL): 4 Patient tolerance: Patient tolerated the procedure well with no immediate complications [facility] [place] Hylton [employer]ANCE AND APPEALS SPECIALIST 01/16/2019 1:38 PM LG Jt Injection/Arthrocentesi s: L greater trochanteric bursa Performed by: Elba Reyes CNP Authorized by: Elba Reyes CNP CPT 32701 - Large Joint Arthrocentesis: Consent given by: Patient Time out: Immediately prior to the procedure a time out was called Physician or proceduralist has discussed critical or nonroutine steps, procedure duration and anticipated blood loss: Yes Supporting Documentation: Indications: Pain Procedure Details: Location: Hip Site: L greater trochanteric bursa Prep: patient was prepped and draped in usual sterile fashion Needle size: 22 G Approach: Lateral Medications: 1 mL dexamethasone 4 mg/mL, 1 mL triamcinolone acetonide 40 mg/mL Anesthetic used: Bupivacaine 0.5% and Lidocaine 1% Anesthetic amount (mL): 4 Patient tolerance: Patient tolerated the procedure well with no immediate complications [facility] ORT LARGE JOINT ARTHROCEN TESISon 11-03-2018 [place] G[employer] APPEALS SPECIALIST 11/03/2018 3:54 PM LG Jt Injection/Arthrocentesi s: L greater trochanteric bursa Performed by: Elba Reyes CNP Authorized by: Elba Reyes CNP CPT 47020 - Large Joint Arthrocentesis: Consent given by: Patient Time out: Immediately prior to the procedure a time out was called Physician or proceduralist has discussed critical or nonroutine steps, procedure duration and anticipated blood loss: Yes Supporting Documentation: Indications: Pain Procedure Details: Location: Hip Site: L greater trochanteric bursa Prep: patient was prepped and draped in usual sterile fashion Needle size: 22 G Approach: Lateral Medications: 1 mL dexamethasone 4 mg/mL, 1 mL triamcinolone acetonide 40 mg/mL Anesthetic used: Bupivacaine 0.5% and Lidocaine 1% Anesthetic amount (mL): 4 Patient tolerance: Patient tolerated the procedure well with no immediate complications [facility] [place] H[place] NP 11/03/2018 3:54 PM LG Jt Injection/Arthrocentesi s: R greater trochanteric bursa Performed by: Elba Reyes CNP Authorized by: Elba Reyes CNP CPT 56709 - Large Joint Arthrocentesis: Consent given by: Patient Time out: Immediately prior to the procedure a time out was called Physician or proceduralist has discussed critical or nonroutine steps, procedure duration and anticipated blood loss: Yes Supporting Documentation: Indications: Pain Procedure Details: Location: Hip Site: R greater trochanteric bursa Prep: patient was prepped and draped in usual sterile fashion Needle size: 22 G Approach: Lateral Medications: 1 mL dexamethasone 4 mg/mL, 1 mL triamcinolone acetonide 40 mg/mL Anesthetic used: Bupivacaine 0.5% and Lidocaine 1% Anesthetic amount (mL): 4 Patient tolerance: Patient tolerated the procedure well with no immediate complications [facility] US Renalon 08-16-2018 US Renal Exam Date/Time:08/16/2018 13:11 ESTReason for Exam:HEMATURIA;Hematuri aReportSTUDY:US Renal; 08/16/2018 1:11 pmINDICATION:Hematuria. COMPARISON:06/14/2012 CESSION NUMBER(S):[id number] 266ORDERING CLINICIAN:Behzad Campbell:Multiple images of the kidneys were obtained .FINDINGS:RIGHT KIDNEY:The right kidney 10.6 cm in longest axis. There is no evidence of hydronephrosis or definite renal masses.LEFT KIDNEY:The left kidney is 10.2 cm and grossly unremarkable and without definite masses.BLADDER:The bladder is suboptimally evaluated.IMPRESSION:Un remarkable appearance of the kidneys without hydronephrosis or definite masses. FINAL REPORT Dictated: 08/16/2018 1:27 pm Senthil CAROLINA, KendyuSigned (Electronic Signature): 08/16/2018 1:27 pmSigned by: Ailyn Ndiaye MD Technologist: DEBRA [facility] CT Angiogram Head Neckon CT [facility]09[facility] 6:54 AM EDT EXAMINATION: CT ANGIOGRAM HEAD NECK HISTORY: ORDERING SYSTEM PROVIDED HISTORY: eval for stroke team, TECHNOLOGIST PROVIDED HISTORY: Reason for exam: eval for stroke team Injury/Trauma Encounter Type: Initial Mechanism of injury: mcbride ORDERING SYSTEM PROVIDED DIAGNOSIS CODES: Per history and physical examination note from 02/08/2018, 67-year-old woman with a history of diabetes, TIA, migraine, presenting with left arm weakness/paresthesia, headache, double vision. Reported prior MRI brain from [facility] on 12/2017 with greater than 70% stenosis of right carotid artery. Per stroke response consultation note from 02/08/2018, NIH stroke scale 0. COMPARISON: CT brain 02/08/2018 outside hospital. TECHNIQUE: Using a multidetector CT scanner, axial images were volumetrically acquired through the head and neck in the arterial phase according to the CT angiogram head and neck protocol following the uncomplicated administration intravenous contrast. Multiplanar reconstructions were performed. Maximum intensity projection (MIP) reconstructions were performed. Noncontrast images with multiplanar reconstructions through the brain were obtained. Dose reduction techniques were achieved by using automated exposure control and/or adjustment of mA and/or kV according to patient size and/or use of iterative reconstruction technique. Carotid stenosis was measured utilizing NASCET criteria. 3D volume-rendered images were also created on a separate workstation by the interpreting radiologist and submitted as part of the examination. CONTRAST: IOPAMIDOL 76 % INTRAVENOUS SOLUTION - 75 mL, FINDINGS: CT BRAIN: There is a mild degree of periventricular white matter hypoattenuation that is nonspecific although likely due to chronic microangiopathic change. There is no acute intracranial hemorrhage, extraaxial fluid collection, midline shift, or mass effect. There is no evidence to suggest acute infarction. There cerebral volume loss. There is no hydrocephalus or herniation. There are atherosclerotic calcifications within the carotid siphons and intracranial vertebral arteries. There are bilateral lens replacements. The paranasal sinuses and mastoid air cells are well pneumatized and clear. There are no suspicious osseous lytic or sclerotic lesions. There are no acute fractures. The extracranial soft tissues are unremarkable. CTA NECK: AORTA: There is a common origin of the left common carotid artery and the brachiocephalic artery, a bovine arch, which is a normal anatomic variant. BRACHIOCEPHALIC AND SUBCLAVIAN ARTERIES: There is no hemodynamically significant stenosis. RIGHT COMMON CAROTID ARTERY (CCA): There is no hemodynamically significant stenosis. RIGHT INTERNAL CAROTID ARTERY (ICA): There is coarse atherosclerotic calcification within the right ICA origin extending into the proximal carotid bulb with mild, approximately 40% stenosis. Distally there is no hemodynamically significant stenosis. RIGHT EXTERNAL CAROTID ARTERY (ECA): There is no hemodynamically significant stenosis. LEFT CCA: There is no hemodynamically significant stenosis. LEFT ICA: There is mild coarse atherosclerotic plaque at the left ICA origin. There is no hemodynamically significant stenosis. LEFT ECA: There is no hemodynamically significant stenosis. RIGHT VERTEBRAL ARTERY: There is no hemodynamically significant stenosis. LEFT VERTEBRAL ARTERY: There is no hemodynamically significant stenosis. CTA HEAD: RIGHT ICA: There is no hemodynamically significant stenosis. RIGHT MIDDLE CEREBRAL ARTERY (MCA): There is no hemodynamically significant stenosis. RIGHT ANTERIOR CEREBRAL ARTERY (MAGDALENA): There is no hemodynamically significant stenosis. LEFT ICA: There is no hemodynamically significant stenosis. LEFT MCA: There is no hemodynamically significant stenosis. LEFT MAGDALENA: There is no hemodynamically significant stenosis. There is an anterior communicating artery. VERTEBRAL ARTERIES: There is no hemodynamically significant stenosis. BASILAR ARTERY: There is no hemodynamically significant stenosis. RIGHT POSTERIOR CEREBRAL ARTERY (SUPPLIER ENGINEER): There is no hemodynamically significant stenosis. LEFT SUPPLIER ENGINEER: There is no hemodynamically significant stenosis. There is a diminutive left and no discrete right posterior communicating artery. There is a 1.5 mm infundibulum at the origin of the left ophthalmic artery. There is no evidence of aneurysm. CT NECK: There is a 6 mm nodule within the anterior right upper lobe (series 5, image 23). There is also a 3 mm nodule within the right upper lobe (series 5, image 24) and additional scattered tiny centrilobular micronodules. There is a 3 mm nodule within the apical right upper lobe. IMPRESSION: CT BRAIN: 1. No acute intracranial process. No acute intracranial hemorrhage, mass, extraaxial fluid collection, or evidence to suggest acute infarction. 2. Mild degree of periventricular white matter hypoattenuation that is nonspecific although likely due to chronic microangiopathic change. CTA NECK: 1. Mild, approximately 40% stenosis at the origin of the right cervical ICA. 2. No hemodynamically significant stenosis of the left ICA. 3. No hemodynamically significant stenosis of the bilateral vertebral arteries. CTA HEAD: 1. No hemodynamically significant intracranial arterial stenosis or occlusion. CT NECK: 1. There are multiple pulmonary nodules within the right lung with a few 3 mm pulmonary micronodules, a 6 mm nodule within the anterior right upper lobe and scattered centrilobular micronodules. Recommend further evaluation with dedicated CT chest. [employer] Workstation ID: [id number] Invalid Interpretation Code [employer] [facility] CT Angiogram Head Neck CT BRAIN: 1. No a cute intracranial process. No acute intracranial hemorrhage, mass, extraaxial fluid collection, or evidence to suggest acute infarction. 2. Mild degree of periventricular white matter hypoattenuation that is nonspecific although likely due to chronic microangiopathic change. CTA NECK: 1. Mild, approximately 40% stenosis at the origin of the right cervical ICA. 2. No hemodynamically significant stenosis of the left ICA. 3. No hemodynamically significant stenosis of the bilateral vertebral arteries. CTA HEAD: 1. No hemodynamically significant intracranial arterial stenosis or occlusion. CT NECK: 1. There are multiple pulmonary nodules within the right lung with a few 3 mm pulmonary micronodules, a 6 mm nodule within the anterior right upper lobe and scattered centrilobular micronodules. Recommend further evaluation with dedicated CT chest. [employer] Workstation ID: [id number] Invalid Interpretation Code [employer] [facility] CT Angiogram Head Neck EXAMINATION: CT ANGIOGRAM HEAD NECK HISTORY: ORDERING SYSTEM PROVIDED HISTORY: eval for stroke team, TECHNOLOGIST PROVIDED HISTORY: Reason for exam: eval for stroke team Injury/Trauma Encounter Type: Initial Mechanism of injury: mcbride ORDERING SYSTEM PROVIDED DIAGNOSIS CODES: Per history and physical examination note from 02/08/2018, 67-year-old woman with a history of diabetes, TIA, migraine, presenting with left arm weakness/paresthesia, headache, double vision. Reported prior MRI brain from [facility] on 12/2017 with greater than 70% stenosis of right carotid artery. Per stroke response consultation note from 02/08/2018, NIH stroke scale 0. COMPARISON: CT brain 02/08/2018 outside hospital. TECHNIQUE: Using a multidetector CT scanner, axial images were volumetrically acquired through the head and neck in the arterial phase according to the CT angiogram head and neck protocol following the uncomplicated administration intravenous contrast. Multiplanar reconstructions were performed. Maximum intensity projection (MIP) reconstructions were performed. Noncontrast images with multiplanar reconstructions through the brain were obtained. Dose reduction techniques were achieved by using automated exposure control and/or adjustment of mA and/or kV according to patient size and/or use of iterative reconstruction technique. Carotid stenosis was measured utilizing NASCET criteria. 3D volume-rendered images were also created on a separate workstation by the interpreting radiologist and submitted as part of the examination. CONTRAST: IOPAMIDOL 76 % INTRAVENOUS SOLUTION - 75 mL, FINDINGS: CT BRAIN: There is a mild degree of periventricular white matter hypoattenuation that is nonspecific although likely due to chronic microangiopathic change. There is no acute intracranial hemorrhage, extraaxial fluid collection, midline shift, or mass effect. There is no evidence to suggest acute infarction. There cerebral volume loss. There is no hydrocephalus or herniation. There are atherosclerotic calcifications within the carotid siphons and intracranial vertebral arteries. There are bilateral lens replacements. The paranasal sinuses and mastoid air cells are well pneumatized and clear. There are no suspicious osseous lytic or sclerotic lesions. There are no acute fractures. The extracranial soft tissues are unremarkable. CTA NECK: AORTA: There is a common origin of the left common carotid artery and the brachiocephalic artery, a bovine arch, which is a normal anatomic variant. BRACHIOCEPHALIC AND SUBCLAVIAN ARTERIES: There is no hemodynamically significant stenosis. RIGHT COMMON CAROTID ARTERY (CCA): There is no hemodynamically significant stenosis. RIGHT INTERNAL CAROTID ARTERY (ICA): There is coarse atherosclerotic calcification within the right ICA origin extending into the proximal carotid bulb with mild, approximately 40% stenosis. Distally there is no hemodynamically significant stenosis. RIGHT EXTERNAL CAROTID ARTERY (ECA): There is no hemodynamically significant stenosis. LEFT CCA: There is no hemodynamically significant stenosis. LEFT ICA: There is mild coarse atherosclerotic plaque at the left ICA origin. There is no hemodynamically significant stenosis. LEFT ECA: There is no hemodynamically significant stenosis. RIGHT VERTEBRAL ARTERY: There is no hemodynamically significant stenosis. LEFT VERTEBRAL ARTERY: There is no hemodynamically significant stenosis. CTA HEAD: RIGHT ICA: There is no hemodynamically significant stenosis. RIGHT MIDDLE CEREBRAL ARTERY (MCA): There is no hemodynamically significant stenosis. RIGHT ANTERIOR CEREBRAL ARTERY (MAGDALENA): There is no hemodynamically significant stenosis. LEFT ICA: There is no hemodynamically significant stenosis. LEFT MCA: There is no hemodynamically significant stenosis. LEFT MAGDALENA: There is no hemodynamically significant stenosis. There is an anterior communicating artery. VERTEBRAL ARTERIES: There is no hemodynamically significant stenosis. BASILAR ARTERY: There is no hemodynamically significant stenosis. RIGHT POSTERIOR CEREBRAL ARTERY (SUPPLIER ENGINEER): There is no hemodynamically significant stenosis. LEFT SUPPLIER ENGINEER: There is no hemodynamically significant stenosis. There is a diminutive left and no discrete right posterior communicating artery. There is a 1.5 mm infundibulum at the origin of the left ophthalmic artery. There is no evidence of aneurysm. CT NECK: There is a 6 mm nodule within the anterior right upper lobe (series 5, image 23). There is also a 3 mm nodule within the right upper lobe (series 5, image 24) and additional scattered tiny centrilobular micronodules. There is a 3 mm nodule within the apical right upper lobe. Invalid Interpretation Code [employer] [facility] CT COMPARISON IMPORTon 02-09 CT COMPARISON IMPORT This order has been auto-finalized and does not contain a result. Invalid Interpretation Code [employer] [facility] Comprehensive Metabolic Pane marissa 02-09-2018 Alanine aminotransferase (ALT) 8 U/L Invalid Interpretation Code 0 - 40 U/L [facility] Albumin 3.6 g/dL Invalid Interpretation Code 3.2 - 5.2 g/dL [facility] Alkaline phosphatase (ALP) 82 U/L Invalid Interpretation Code 40 - 150 U/L [facility] Anion gap 17 mmol/L Invalid Interpretation Code 10 - 20 mmol/L [facility] Aspartate aminotransferase (AST) 15 U/L Invalid Interpretation Code 0 - 45 U/L [facility] Bicarbonate (HCO3) 22 mmol/L Invalid Interpretation Code 21 - 32 mmol/L [facility] Bilirubin (total) 0.3 mg/dL Invalid Interpretation Code 0 - 1.3 mg/dL [facility] BUN/Creatinine Ratio 20.2 mg/mg High 10.0 - 20.0 [facility] Calcium 9.3 mg/dL Invalid Interpretation Code 8.4 - 10.2 mg/dL [facility] Chloride 105 mmol/L Invalid Interpretation Code 98 - 108 mmol/L [facility] Creatinine 0.94 mg/dL Invalid Interpretation Code 0.6 - 1.2 mg/dL [facility] eGFR (non-black) 64 mL/min/{1.73_m2} Invalid Interpretation Code >=60 [facility] eGFR (non-black) The eGFR should be u sed for monitoring renal function only and not for medication dosing. Invalid Interpretation Code [facility] Glucose 106 mg/dL High 65 - 99 mg/dL [facility] Potassium 3.5 mmol/L Invalid Interpretation Code 3.5 - 5.1 mmol/L [facility] Protein 6.8 g/dL Invalid Interpretation Code 6 - 8 g/dL [facility] Sodium 140 mmol/L Invalid Interpretation Code 135 - 145 mmol/L [facility] Urea nitrogen 19 mg/dL Invalid Interpretation Code 8 - 25 mg/dL [facility] Echocardiogram completeon Echocardiogram complete Interface, Rad I n Heartlab Xper Echopacs - 02/09/2018 10:27 AM EDT Transthoracic Echocardiogram _ Patient: MEL Dodge [facility] Rec#: [id number] (Age): 1950(67y) Height: 168(cm)/66(in) Study Date: 02/09/2018 Weight: 89(kg)/196(lbs) Room#: 5502 BSA: [id number] Type: Inpatient Loc: [facility] Sex: F _ Reading: Marcia Barrientos MD MSc Referring: HATTIE Dataware[employer] Developer: Fuad Mitchell RDCS, [facility] History: Asthma. CVA, history. Diabetes. GERD. 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 Summary: Patient identity verified and ID band on (pause and confirm). Current HP present on patient chart. Procedure explained and patient verified understanding. Consent obtained for procedure. A two-dimensional transthoracic echocardiogram with color flow, pulsed and continuous Doppler was performed. The study was technically adequate. Endocardium not well visualized, cannot adequately evaluate regional wall motion. Mild nonspecific valve degeneration. Moderate nonspecific valve degeneration. Conclusions: The left ventricle is not well visualized. There is normal left ventricular systolic function.The estimated ejection fraction is 55-60%. Abnormal left ventricular diastolic filling is observed, consistent with impaired relaxation. The left atrial chamber size is grossly normal. No evidence of patent foramen ovale is demonstrated by color Doppler. Saline injection was not performed. Mild to moderate nonspecific valve degeneration. No prior study available for comparison. Findings Reason For Study: CVA, acute. Left Ventricle: The left ventricle is not well visualized. The left ventricular chamber size is normal. There is no left ventricular hypertrophy observed. Global left ventricular wall motion and contractility are within normal limits. There is normal left ventricular systolic function. The estimated ejection fraction is 55-60%. Abnormal left ventricular diastolic function is observed. Abnormal left ventricular diastolic filling is observed, consistent with impaired relaxation. Abnormal septal motion due to conduction abnormalities. Left Atrium: The left atrial chamber size is grossly normal. A patent foramen ovale is not demonstrated by color Doppler. Right Ventricle: The right ventricular chamber size and systolic function are within normal limits. The right ventricular cavity size is normal. The right ventricular global systolic function is normal. Right Atrium: The right atrial cavity size is normal. Aortic Valve: The aortic valve is not well visualized. The aortic valve structure is normal. There is no evidence of aortic valve thickening. Moderate aortic leaflet calcification is visualized. Aortic valve appears sclerotic. Mild aortic cusp sclerosis is present. There is no hemodynamically significant stenosis. There is a trace of aortic regurgitation. Mitral Valve: The mitral valve leaflets appear normal. There is no evidence of mitral valve prolapse. There is no evidence of mitral stenosis. There is trivial physiological regurgitation of the mitral valve. Tricuspid Valve: The tricuspid valve leaflets are normal. There is a trace tricuspid regurgitation. Pulmonary artery pressure could not be estimated. Pulmonic Valve: The pulmonic valve appears grossly normal in structure and function. Pericardium: A trivial pericardial effusion is visualized. A pericardial fat pad is visualized. Aorta: The aortic root is normal in diameter. HR 80 BP 122/66 Measurements Chambers 2D Name Value Normal Range IVSd (2D) 1.05 cm none LVPWd (2D) 0.83 cm none IVS:LVPW ratio (2D) 1.27 ratio none LVIDd (2D) 3.83 cm none LVIDs (2D) 2.87 cm none LVIDd (2D) index 1.93 cm/m2 none LVIDs (2D) index 1.44 cm/m2 none Ao root diameter (2D) 3.5 cm none LA dimension (AP) 2D 3 cm none LA:Ao ratio (2D) 0.86 ratio none Aortic root diameter (2D) inde1.76 cm/m2 none LA dimension (2D) index 1.51 cm/m2 none Volumes/Mass Name Value Normal Range LA ESV SP 4CH (MOD) 25.1 ml none LA ESV SP 2CH (MOD) 38.6 ml none LV EDV SP 4CH (MOD) 25.3 ml none LV ESV SP 4CH (MOD) 11.5 ml none LV EDV SP 2CH (MOD) 23.5 ml none LV ESV SP 2CH (MOD) 12.7 ml none LV EDV BP 24.7 ml none LV ESV BP 12.2 ml none LV EDV BP index 12.43 ml/m2 none LV ESV BP index 6.14 ml/m2 none LV mass (2D) 108.51 g none LV mass (2D) index 54.61 g/m2 none Diastolic/Systolic Function Name Value Normal Range MV E-wave Vmax 0.65 m/sec none MV deceleration time 215 msec none MV A-wave Vmax 1 m/sec none MV E:A ratio 0.65 ratio (1.1 - 1.5) LV E:e' septal ratio 11.6 ratio none LV E:e' lateral ratio 7.9 ratio none Aortic Valve Name Value Normal Range AV Vmax 1.12 m/sec (1 - 1.7) AV peak gradient 5.02 mmHg (Less Than 36) LVOT diameter 2 cm (1.7 - 2.5) Ascending Ao 2.8 cm none Electronically Signed at 02/09/2018 10:23:35 by: Marcia Barrientos MD MSc Invalid Interpretation Code EM RAD Echocardiogram complete Transthoracic Echocardiogram _ Patient: MEL Dodge [facility] Rec#: [id number] (Age): 1950(67y) Height: 168(cm)/66(in) Study Date: 02/09/2018 Weight: 89(kg)/196(lbs) Room#: 5502 BSA: [id number] Type: Inpatient Loc: [facility] Sex: F _ Reading: Marcia Barrientos MD MSc Referring: HATTIE Datawarehouse Developer: Fuad Mitchell RDCS [facility] History: Asthma. CVA, history. Diabetes. GERD. 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 Summary: Patient identity verified and ID band on (pause and confirm). Current HP present on patient chart. Procedure explained and patient verified understanding. Consent obtained for procedure. A two-dimensional transthoracic echocardiogram with color flow, pulsed and continuous Doppler was performed. The study was technically adequate. Endocardium not well visualized, cannot adequately evaluate regional wall motion. Mild nonspecific valve degeneration. Moderate nonspecific valve degeneration. Conclusions: The left ventricle is not well visualized. There is normal left ventricular systolic function.The estimated ejection fraction is 55-60%. Abnormal left ventricular diastolic filling is observed, consistent with impaired relaxation. The left atrial chamber size is grossly normal. No evidence of patent foramen ovale is demonstrated by color Doppler. Saline injection was not performed. Mild to moderate nonspecific valve degeneration. No prior study available for comparison. Findings Reason For Study: CVA, acute. Left Ventricle: The left ventricle is not well visualized. The left ventricular chamber size is normal. There is no left ventricular hypertrophy observed. Global left ventricular wall motion and contractility are within normal limits. There is normal left ventricular systolic function. The estimated ejection fraction is 55-60%. Abnormal left ventricular diastolic function is observed. Abnormal left ventricular diastolic filling is observed, consistent with impaired relaxation. Abnormal septal motion due to conduction abnormalities. Left Atrium: The left atrial chamber size is grossly normal. A patent foramen ovale is not demonstrated by color Doppler. Right Ventricle: The right ventricular chamber size and systolic function are within normal limits. The right ventricular cavity size is normal. The right ventricular global systolic function is normal. Right Atrium: The right atrial cavity size is normal. Aortic Valve: The aortic valve is not well visualized. The aortic valve structure is normal. There is no evidence of aortic valve thickening. Moderate aortic leaflet calcification is visualized. Aortic valve appears sclerotic. Mild aortic cusp sclerosis is present. There is no hemodynamically significant stenosis. There is a trace of aortic regurgitation. Mitral Valve: The mitral valve leaflets appear normal. There is no evidence of mitral valve prolapse. There is no evidence of mitral stenosis. There is trivial physiological regurgitation of the mitral valve. Tricuspid Valve: The tricuspid valve leaflets are normal. There is a trace tricuspid regurgitation. Pulmonary artery pressure could not be estimated. Pulmonic Valve: The pulmonic valve appears grossly normal in structure and function. Pericardium: A trivial pericardial effusion is visualized. A pericardial fat pad is visualized. Aorta: The aortic root is normal in diameter. HR 80 BP 122/66 Measurements Chambers 2D Name Value Normal Range IVSd (2D) 1.05 cm none LVPWd (2D) 0.83 cm none IVS:LVPW ratio (2D) 1.27 ratio none LVIDd (2D) 3.83 cm none LVIDs (2D) 2.87 cm none LVIDd (2D) index 1.93 cm/m2 none LVIDs (2D) index 1.44 cm/m2 none Ao root diameter (2D) 3.5 cm none LA dimension (AP) 2D 3 cm none LA:Ao ratio (2D) 0.86 ratio none Aortic root diameter (2D) inde1.76 cm/m2 none LA dimension (2D) index 1.51 cm/m2 none Volumes/Mass Name Value Normal Range LA ESV SP 4CH (MOD) 25.1 ml none LA ESV SP 2CH (MOD) 38.6 ml none LV EDV SP 4CH (MOD) 25.3 ml none LV ESV SP 4CH (MOD) 11.5 ml none LV EDV SP 2CH (MOD) 23.5 ml none LV ESV SP 2CH (MOD) 12.7 ml none LV EDV BP 24.7 ml none LV ESV BP 12.2 ml none LV EDV BP index 12.43 ml/m2 none LV ESV BP index 6.14 ml/m2 none LV mass (2D) 108.51 g none LV mass (2D) index 54.61 g/m2 none Diastolic/Systolic Function Name Value Normal Range MV E-wave Vmax 0.65 m/sec none MV deceleration time 215 msec none MV A-wave Vmax 1 m/sec none MV E:A ratio 0.65 ratio (1.1 - 1.5) LV E:e' septal ratio 11.6 ratio none LV E:e' lateral ratio 7.9 ratio none Aortic Valve Name Value Normal Range AV Vmax 1.12 m/sec (1 - 1.7) AV peak gradient 5.02 mmHg (Less Than 36) LVOT diameter 2 cm (1.7 - 2.5) Ascending Ao 2.8 cm none Electronically Signed at 02/09/2018 10:23:35 by: Marcia Barrientos MD MSc Invalid Interpretation Code [facility] Hemoglobin A1con 02-09-2018 Glucose 197 mg/dL High 68 - 126 mg/dL [facility] HbA1c 8.5 % High 4.2 - 6 % [facility] Interpretation and review of laboratory results Abnormal Invalid Interpretation Code [facility] Lipid Panelon 02-09-2018 Cholesterol 227 mg/dL High 100 - 199 mg/dL [facility] Cholesterol to HDL Ratio 4.3 {ratio} Invalid Interpretation Code [facility] HDL Cholesterol 174 mg/dL Invalid Interpretation Code [facility] HDL Cholesterol 53 mg/dL Invalid Interpretation Code 40 - 59 [facility] LDL Cholesterol 135 mg/dL High 10 - 130 mg/dL [facility] Triglyceride 194 mg/dL High 30 - 150 mg/dL [facility] MR Brain With And Without Co ntraston 02-09-2018 MR Brain With And Without Contrast EXAMINATION: MR BRAIN WITH AND WITHOUT CONTRAST HISTORY: ORDERING SYSTEM PROVIDED HISTORY: eval for stroke, TECHNOLOGIST PROVIDED HISTORY: Reason for exam: LUE weakness, double vision Illness/Other Encounter Type: Subsequent/Follow-up Additional signs and symptoms: n/a COMPARISON: CTA head and neck, 02/05/2018. TECHNIQUE: Sagittal T1, axial T2, FLAIR, diffusion, T2 gradient, postcontrast axial, coronal and sagittal T1 images were obtained through the entire brain. High-resolution axial T2 and precontrast and postcontrast high-resolution axial and coronal T1 images were obtained. CONTRAST: GADOTERATE MEGLUMINE 0.5 MMOL/ML INTRAVENOUS SOLUTION - 18 mL FINDINGS: Paranasal sinuses are clear. Mastoid air cells are clear. Nasopharynx is normal. Compliance Spec spaces are normal. Prior cataract surgery. Orbital contents are otherwise intact. Extracranial soft tissue structures are unremarkable. Mild brain atrophy. No hydrocephalus. No extraaxial fluid collections. No shift of midline. Mild chronic microvascular ischemic changes. No diffusion restriction. No acute infarction. T2 gradient images show no hemorrhagic lesions. No pathologic enhancement within the brain. No intraorbital masses. No abnormal signal in the optic nerves. No pathologic enhancement in the optic nerves or optic chiasm. Cavernous sinuses are normal. No pathologic cranial nerve enhancement. Invalid Interpretation Code [facility] MR Brain With And Without Contrast 1. No acute infarction. Mild chronic microvascular ischemic changes. Mild brain atrophy. 2. No pathologic enhancement. No masses. 3. Prior cataract surgery. Orbital contents are otherwise normal. No abnormal signal in the optic nerves. No cranial nerve enhancement. [employer] Workstation ID: [id number] Invalid Interpretation Code [facility] MR Brain With And Without Contrast Interface, Rad In [facility] - 02/09/2018 2:19 PM EDT EXAMINATION: MR BRAIN WITH AND WITHOUT CONTRAST HISTORY: ORDERING SYSTEM PROVIDED HISTORY: eval for stroke, TECHNOLOGIST PROVIDED HISTORY: Reason for exam: LUE weakness, double vision Illness/Other Encounter Type: Subsequent/Follow-up Additional signs and symptoms: n/a COMPARISON: CTA head and neck, 02/05/2018. TECHNIQUE: Sagittal T1, axial T2, FLAIR, diffusion, T2 gradient, postcontrast axial, coronal and sagittal T1 images were obtained through the entire brain. High-resolution axial T2 and precontrast and postcontrast high-resolution axial and coronal T1 images were obtained. CONTRAST: GADOTERATE MEGLUMINE 0.5 MMOL/ML INTRAVENOUS SOLUTION - 18 mL FINDINGS: Paranasal sinuses are clear. Mastoid air cells are clear. Nasopharynx is normal. Compliance Spec spaces are normal. Prior cataract surgery. Orbital contents are otherwise intact. Extracranial soft tissue structures are unremarkable. Mild brain atrophy. No hydrocephalus. No extraaxial fluid collections. No shift of midline. Mild chronic microvascular ischemic changes. No diffusion restriction. No acute infarction. T2 gradient images show no hemorrhagic lesions. No pathologic enhancement within the brain. No intraorbital masses. No abnormal signal in the optic nerves. No pathologic enhancement in the optic nerves or optic chiasm. Cavernous sinuses are normal. No pathologic cranial nerve enhancement. IMPRESSION: 1. No acute infarction. Mild chronic microvascular ischemic changes. Mild brain atrophy. 2. No pathologic enhancement. No masses. 3. Prior cataract surgery. Orbital contents are otherwise normal. No abnormal signal in the optic nerves. No cranial nerve enhancement. [employer] Workstation ID: [id number] Invalid Interpretation Code [facility] POC Glucoseon 02-09-2018 Glucose 178 mg/dL High 65 - 99 mg/dL [facility] Interpretation and review of laboratory results Abnormal Invalid Interpretation Code [facility] Glucose 127 mg/dL High 65 - 99 mg/dL [facility] Interpretation and review of laboratory results Abnormal Invalid Interpretation Code [facility] XR COMPARISON IMPORTon 02-09 XR COMPARISON IMPORT This order has been auto-finalized and does not contain a result. Invalid Interpretation Code [facility] POC Glucoseon 02-08-2018 Glucose 106 mg/dL High 65 - 99 mg/dL [facility] Interpretation and review of laboratory results Abnormal Invalid Interpretation Code [facility] XR Hip Left 2-3 Views (Routi ne)on 09-20-2017 INR in blood by coagulation X-rays left hip 2 views due to pain reveals normal-appearing left hip Invalid Interpretation Code [facility] XR Hip Right 2-3 Views (Rout ine)on 09-20-2017 INR in blood by coagulation X-rays of the right hip 2 views due to pain reveals normal-appearing right hip Invalid Interpretation Code [facility] [place] Culture, urine Bacteria identified Cx Nom (U) Positive [facility] Work Phone: Vital Signs Date Time Vital Sign Value Performing Clinician Facility 12-17-2023 11:19-0400 Body temperature 97.59 [degF] Leila Banuelos MD Work Phone: [facility] 12-17-2023 11:19-0400 Diastolic blood pressure 73 mm[Hg] Leila Banuelos MD Work Phone: [facility] 12-17-2023 11:19-0400 Heart rate 95 /min Leila Banuelos MD Work Phone: [facility] 12-17-2023 11:19-0400 Respiratory rate 16 /min Leila Banuelos MD Work Phone: [facility] 12-17-2023 11:19-0400 SaO2% (BldA) [Mass fraction] 94 % Leila Banuelos MD Work Phone: [facility] 12-17-2023 11:19-0400 Systolic blood pressure 117 mm[Hg] Leila Banuelos MD Work Phone: [facility] 12-10-2023 13:42-0400 Body height 167.6 cm Leila Banuelos MD Work Phone: [facility] 12-10-2023 13:42-0400 Body mass index (BMI) [Ratio] 28.08 kg/m2 Leila Banuelos MD Work Phone: [facility] 12-10-2023 13:42-0400 Body weight 78.93 kg Leila Banuelos MD Work Phone: [facility] 10-25-2023 14:08-0500 Diastolic blood pressure 60 mm[Hg] Eliecer Hill CNP Work Phone: [facility] 10-25-2023 14:08-0500 Heart rate 119 /min Eliecer Hill CNP Work Phone: [facility] 10-25-2023 14:08-0500 SaO2% (BldA) [Mass fraction] 96 % Eliecer Hill CNP Work Phone: [facility] 10-25-2023 14:08-0500 Systolic blood pressure 91 mm[Hg] Eliecer Hill MAGNETIC PROSPECTING OPERATOR Work Phone: [facility] 10-25-2023 13:38-0500 Body height 167.6 cm Eliecer Hill CNP Work Phone: [facility] 10-25-2023 13:38-0500 Body mass index (BMI) [Ratio] 30.67 kg/m2 Eliecer Hill CNP Work Phone: [facility] 10-25-2023 13:38-0500 Body weight 86.18 kg Eliecer Hill CNP Work Phone: [facility] 08-17-2023 10:36-0500 Diastolic blood pressure 68 mm[Hg] Poornima Green MAGNETIC PROSPECTING OPERATOR Work Phone: [facility] 08-17-2023 10:36-0500 Heart rate 117 /min Poornima Green MAGNETIC PROSPECTING OPERATOR Work Phone: [facility] 08-17-2023 10:36-0500 Respiratory rate 16 /min Poornima Green MAGNETIC PROSPECTING OPERATOR Work Phone: [facility] 08-17-2023 10:36-0500 SaO2% (BldA) [Mass fraction] 93 % Poornima Green MAGNETIC PROSPECTING OPERATOR Work Phone: [facility] 08-17-2023 10:36-0500 Systolic blood pressure 120 mm[Hg] Poornima Green MAGNETIC PROSPECTING OPERATOR Work Phone: [facility] 08-10-2023 11:11-0500 Body height 167.6 cm Radha Hubbard DO Work Phone: [facility] 08-10-2023 11:11-0500 Body mass index (BMI) [Ratio] 29.54 kg/m2 Radha Hubbard DO Work Phone: [facility] 08-10-2023 11:11-0500 Body weight 83.01 kg Radha Hubbard DO Work Phone: [facility] 08-10-2023 11:11-0500 Diastolic blood pressure 78 mm[Hg] Radha Hubbard DO Work Phone: [facility] 08-10-2023 11:11-0500 Heart rate 97 /min Radha Hubbard DO Work Phone: [facility] 08-10-2023 11:11-0500 Systolic blood pressure 118 mm[Hg] Radha Hubbard DO Work Phone: [facility] 07-19-2023 10:56-0500 Body temperature 97.39 [degF] Poornima Green MAGNETIC PROSPECTING OPERATOR Work Phone: [facility] 07-19-2023 10:56-0500 Diastolic blood pressure 80 mm[Hg] Poornima Green MAGNETIC PROSPECTING OPERATOR Work Phone: [facility] 07-19-2023 10:56-0500 Heart rate 97 /min Poornima Green MAGNETIC PROSPECTING OPERATOR Work Phone: [facility] 07-19-2023 10:56-0500 Respiratory rate 16 /min Poornima Green MAGNETIC PROSPECTING OPERATOR Work Phone: [facility] 07-19-2023 10:56-0500 SaO2% (BldA) [Mass fraction] 97 % Poornima Green MAGNETIC PROSPECTING OPERATOR Work Phone: [facility] 07-19-2023 10:56-0500 Systolic blood pressure 122 mm[Hg] Poornima Jim FRAZIER Work Phone: [facility] 06-29-2023 09:08-0400 Diastolic blood pressure 55 mm[Hg] Dr. Olivier Acosta Work Phone: [facility] 06-29-2023 09:08-0400 Heart rate 80 /min Dr. Olivier Acosta Work Phone: [facility] 06-29-2023 09:08-0400 SaO2% (BldA) [Mass fraction] 91 % Dr. Olivier Acosta Work Phone: [facility] 06-29-2023 09:08-0400 Systolic blood pressure 129 mm[Hg] Dr. Olivier Acosta Work Phone: [facility] 06-29-2023 08:23-0400 Respiratory rate 18 /min Dr. Olivier Acosta Work Phone: [facility] 05-28-2023 13:31-0400 Body temperature 98.4 [degF] Brooklyn Lynn MD Work Phone: [facility] 05-28-2023 13:31-0400 Diastolic blood pressure 76 mm[Hg] Brooklyn Lynn MD Work Phone: [facility] 05-28-2023 13:31-0400 Heart rate 102 /min Brooklyn Lynn MD Work Phone: [facility] 05-28-2023 13:31-0400 Respiratory rate 18 /min Brooklyn Lnyn MD Work Phone: [facility] 05-28-2023 13:31-0400 SaO2% (BldA) [Mass fraction] 95 % Brooklyn Lynn MD Work Phone: [facility] 05-28-2023 13:31-0400 Systolic blood pressure 148 mm[Hg] Brooklyn Lynn MD Work Phone: [facility] 05-04-2023 07:48-0400 Body height 168.9 cm Eliecer Hill MAGNETIC PROSPECTING OPERATOR Work Phone: [facility] 05-04-2023 07:48-0400 Body mass index (BMI) [Ratio] 28.62 kg/m2 Eliecer Hill CNP Work Phone: [facility] 05-04-2023 07:48-0400 Body weight 81.65 kg Eliecer Momintru FRAZIER Work Phone: [facility] 03-23-2023 08:31-0400 Diastolic blood pressure 85 mm[Hg] Callie Ramirez MD Work Phone: [facility] 03-23-2023 08:31-0400 Heart rate 101 /min Callie Ramirez MD Work Phone: [facility] Comment on above: NO EKG per Dr. Ramirez 03-23-2023 08:31-0400 SaO2% (BldA) [Mass fraction] 93 % Callie Ramirez MD Work Phone: [facility] 03-23-2023 08:31-0400 Systolic blood pressure 155 mm[Hg] Callie Ramirez MD Work Phone: [facility] 03-23-2023 08:22-0400 Body height 168.9 cm Callie Ramirez MD Work Phone: [facility] 03-23-2023 08:22-0400 Body mass index (BMI) [Ratio] 28.74 kg/m2 Calile Ramirez MD Work Phone: [facility] 03-23-2023 08:22-0400 Body weight 82.01 kg Callie Ramirez MD Work Phone: [facility] 10-12-2022 16:00-0500 Body temperature 97.7 [degF] Dr. Olivier Acosta Work Phone: [facility] 10-12-2022 16:00-0500 Diastolic blood pressure 90 mm[Hg] Dr. Olivier Acosta Work Phone: [facility] 10-12-2022 16:00-0500 Heart rate 90 /min Dr. Olivier Acosta Work Phone: [facility] 10-12-2022 16:00-0500 Respiratory rate 18 /min Dr. Olivier Acosta Work Phone: [facility] 10-12-2022 16:00-0500 SaO2% (BldA) [Mass fraction] 98 % Dr. Olivier Acosta Work Phone: [facility] 10-12-2022 16:00-0500 Systolic blood pressure 158 mm[Hg] Dr. Olivier Acosta Work Phone: [facility] 10-09-2022 12:01-0500 Body height 167.[address] Olivier Acosta Work Phone: [facility] 10-09-2022 12:01-0500 Body weight 80.[address] Olivier Acosta Work Phone: [facility] 10-08-2022 16:17-0500 Body mass index (BMI) [Ratio] 28.7 kg/m2 Dr. Olivier Acosta Work Phone: [facility] 10-08-2022 15:55-0500 Body temperature 97.4 [degF] Dr. Olivier Acosta Work Phone: [facility] 10-08-2022 15:55-0500 Diastolic blood pressure 69 mm[Hg] Dr. Olivier Acosta Work Phone: [facility] 10-08-2022 15:55-0500 Heart rate 122 /min Dr. Olivier Acosta Work Phone: [facility] 10-08-2022 15:55-0500 Respiratory rate 16 /min Dr. Olivier Acosta Work Phone: [facility] 10-08-2022 15:55-0500 SaO2% (BldA) [Mass fraction] 97 % Dr. Olivier Acosta Work Phone: [facility] 10-08-2022 15:55-0500 Systolic blood pressure 123 mm[Hg] Dr. Olivier Acosta Work Phone: [facility] 10-08-2022 13:27-0500 Body height 167.[address] Olivier Acosta Work Phone: [facility] 10-08-2022 13:27-0500 Body mass index (BMI) [Ratio] 29.1 kg/m2 Dr. Olivier Acosta Work Phone: [facility] 10-08-2022 13:27-0500 Body weight 81.[address] Olivier Acosta Work Phone: [facility] 09-30-2022 13:14-0500 Diastolic blood pressure 70 mm[Hg] Dr. Olivier Acosta Work Phone: [facility] 09-30-2022 13:14-0500 Heart rate 104 /min Dr. Olivier Acosta Work Phone: [facility] 09-30-2022 13:14-0500 Respiratory rate 16 /min Dr. Olivier Acosta Work Phone: [facility] 09-30-2022 13:14-0500 SaO2% (BldA) [Mass fraction] 96 % Dr. Olivier Acosta Work Phone: [facility] 09-30-2022 13:14-0500 Systolic blood pressure 139 mm[Hg] Dr. Olivier Acosta Work Phone: [facility] 09-25-2022 20:41-0500 Diastolic blood pressure 81 mm[Hg] Dr. Olivier Acosta Work Phone: [facility] 09-25-2022 20:41-0500 Systolic blood pressure 147 mm[Hg] Dr. Olivier Acosta Work Phone: [facility] 09-25-2022 17:12-0500 Body height 167.[address] Olivier Acosta Work Phone: [facility] 09-25-2022 17:12-0500 Body mass index (BMI) [Ratio] 30.3 kg/m2 Dr. Olivier Acosta Work Phone: [facility] 09-25-2022 17:12-0500 Body temperature 98.2 [degF] Dr. Olivier Acosta Work Phone: [facility] 09-25-2022 17:12-0500 Body weight 85.[address] Olivier Acosta Work Phone: 0(186)[phone] [place] [address] 09-25-2022 17:12-0500 Heart rate 96 /min Dr. Olivier Acosta Work Phone: 7(628)[phone] [place] [address] 09-25-2022 17:12-0500 Respiratory rate 15 /min Dr. Olivier Acosta Work Phone: 9(189)[phone] [place] [address] 09-25-2022 17:12-0500 SaO2% (BldA) [Mass fraction] 97 % Dr. Olivier Acosta Work Phone: [facility] 09-22-2022 12:18-0500 Body temperature 98.6 [degF] Dr. Olivier Acosta Work Phone: [facility] 09-22-2022 12:18-0500 Diastolic blood pressure 67 mm[Hg] Dr. Olivier Acosta Work Phone: [facility] 09-22-2022 12:18-0500 Heart rate 83 /min Dr. Olivier Acosta Work Phone: [facility] 09-22-2022 12:18-0500 Respiratory rate 18 /min Dr. Olivier Acosta Work Phone: [facility] 09-22-2022 12:18-0500 SaO2% (BldA) [Mass fraction] 98 % Dr. Olivier Acosta Work Phone: [facility] 09-22-2022 12:18-0500 Systolic blood pressure 132 mm[Hg] Dr. Olivier Acotsa Work Phone: [facility] 09-21-2022 14:59-0500 Body height 167.[address] Olivier Acosta Work Phone: [facility] 09-21-2022 14:59-0500 Body mass index (BMI) [Ratio] 30.3 kg/m2 Dr. Olivier Acosta Work Phone: 1(200)[phone] [place] [address] 09-21-2022 14:59-0500 Body weight 85.[address] Olivier Acosta Work Phone: [facility] 09-14-2022 15:00-0500 Body temperature 98.4 [degF] Dr. Olivier Acosta Work Phone: 2(674)[phone] [place] [address] 09-14-2022 15:00-0500 Diastolic blood pressure 78 mm[Hg] Dr. Olivier Acosta Work Phone: 7(598)[phone] [place] [address] 09-14-2022 15:00-0500 Heart rate 98 /min Dr. Olivier Acosta Work Phone: [facility] 09-14-2022 15:00-0500 Respiratory rate 16 /min Dr. Olivier Acosta Work Phone: [facility] 09-14-2022 15:00-0500 SaO2% (BldA) [Mass fraction] 98 % Dr. Olivier Acosta Work Phone: [facility] 09-14-2022 15:00-0500 Systolic blood pressure 140 mm[Hg] Dr. Olivier Acosta Work Phone: [facility] 09-13-2022 00:15-0500 Body mass index (BMI) [Ratio] 31 kg/m2 Dr. Olivier Acosta Work Phone: [facility] 09-13-2022 00:15-0500 Body weight 87.[address] Olivier Acosta Work Phone: [facility] 09-01-2022 09:00-0500 SaO2% (BldA) [Mass fraction] 95 % Dr. Olivier Acosta Work Phone: [facility] 09-01-2022 08:34-0500 Heart rate 90 /min Dr. Olivier Acosta Work Phone: [facility] 09-01-2022 08:19-0500 Body temperature 97.8 [degF] Dr. Olivier Acosta Work Phone: [facility] 09-01-2022 08:19-0500 Diastolic blood pressure 64 mm[Hg] Dr. Olivier Acosta Work Phone: [facility] 09-01-2022 08:19-0500 Respiratory rate 18 /min Dr. Olivier Acosta Work Phone: [facility] 09-01-2022 08:19-0500 Systolic blood pressure 116 mm[Hg] Dr. Olivier Acosta Work Phone: [facility] 09-01-2022 02:47-0500 Body weight 91.[address] Olivier Acosta Work Phone: [facility] 08-31-2022 13:08-0500 Body height 165.[address] Olivier Acosta Work Phone: [facility] Work Phone: 08-31-2022 03:27-0500 Body mass index (BMI) [Ratio] 32.4 kg/m2 Dr. Olivier Acosta Work Phone: [facility] 08-31-2022 02:20-0500 Body temperature 98.7 [degF] Dr. Olivier Acosta Work Phone: [facility] Work Phone: 08-31-2022 02:20-0500 Diastolic blood pressure 67 mm[Hg] Dr. Olivier Acosta Work Phone: [facility] Work Phone: 08-31-2022 02:20-0500 Heart rate 103 /min Dr. Olivier Acosta Work Phone: [facility] Work Phone: 08-31-2022 02:20-0500 Respiratory rate 16 /min Dr. Olivier Acosta Work Phone: [facility] Work Phone: 08-31-2022 02:20-0500 SaO2% (BldA) [Mass fraction] 100 % Dr. Olivier Acosta Work Phone: [facility] Work Phone: 08-31-2022 02:20-0500 Systolic blood pressure 99 mm[Hg] Dr. Olivier Acosta Work Phone: [facility] Work Phone: 08-30-2022 23:59-0500 Body height 165.[address] Olivier Acosta Work Phone: [facility] Work Phone: 08-30-2022 23:59-0500 Body mass index (BMI) [Ratio] 32.7 kg/m2 Dr. Olivier Acosta Work Phone: [facility] Work Phone: 08-30-2022 23:59-0500 Body weight 89.[address] Olivier Acosta Work Phone: [facility] Work Phone: 08-20-2022 09:32-0500 Body height 165.1 cm Cecilia Campos MD Work Phone: [facility] 08-20-2022 09:32-0500 Body mass index (BMI) [Ratio] 32.25 kg/m2 Cecilia Campos MD Work Phone: [facility] 08-20-2022 09:32-0500 Body weight 87.91 kg Cecilia Campos MD Work Phone: [facility] 08-20-2022 09:32-0500 Diastolic blood pressure 70 mm[Hg] Cecilia Campos MD Work Phone: [facility] 08-20-2022 09:32-0500 Heart rate 91 /min Cecilia Campos MD Work Phone: [facility] 08-20-2022 09:32-0500 SaO2% (BldA) [Mass fraction] 98 % Cecilia Campos MD Work Phone: [facility] 08-20-2022 09:32-0500 Systolic blood pressure 126 mm[Hg] Cecilia Campos MD Work Phone: [facility] 08-13-2022 15:29-0500 Body height 165.1 cm Radha Hubbard DO Work Phone: [facility] 08-13-2022 15:29-0500 Body mass index (BMI) [Ratio] 32 kg/m2 Radha Hubbard DO Work Phone: [facility] 08-13-2022 15:29-0500 Body weight 87.23 kg Radha Hubbard DO Work Phone: [facility] 08-06-2022 08:15-0500 Body height 165.[address] Olivier Acosta Work Phone: [facility] Work Phone: 08-06-2022 08:15-0500 Body mass index (BMI) [Ratio] 32.3 kg/m2 Dr. Olivier Acosta Work Phone: [facility] 08-06-2022 08:15-0500 Body temperature 96.5 [degF] Dr. Olivier Acosta Work Phone: [facility] 08-06-2022 08:15-0500 Body weight 88.[address] Olivier Acosta Work Phone: [facility] 08-06-2022 08:15-0500 Diastolic blood pressure 79 mm[Hg] Dr. Olivier Acosta Work Phone: [facility] 08-06-2022 08:15-0500 Heart rate 117 /min Dr. Olivier Acosta Work Phone: [facility] 08-06-2022 08:15-0500 Respiratory rate 18 /min Dr. Olivier Acosta Work Phone: [facility] 08-06-2022 08:15-0500 SaO2% (BldA) [Mass fraction] 95 % Dr. Olivier Acosta Work Phone: [facility] 08-06-2022 08:15-0500 Systolic blood pressure 132 mm[Hg] Dr. Olivier Acosta Work Phone: [facility] 06-18-2022 20:06-0400 Diastolic blood pressure 62 mm[Hg] [facility] 06-18-2022 20:06-0400 Heart rate 100 /min [facility] 06-18-2022 20:06-0400 Respiratory rate 15 /min [facility] 06-18-2022 20:06-0400 SaO2% (BldA) [Mass fraction] 98 % [facility] 06-18-2022 20:06-0400 Systolic blood pressure 135 mm[Hg] [facility] 06-18-2022 18:07-0400 Body height 168.91 cm [facility] Work Phone: 06-18-2022 18:07-0400 Body mass index (BMI) [Ratio] 30.2 kg/m2 [facility] 06-18-2022 18:07-0400 Body temperature 97.2 [degF] [facility] 06-18-2022 18:07-0400 Body weight 86.18 kg [facility] 05-09-2022 12:39-0400 Respiratory rate 16 /min Bobby Tan MD Work Phone: [facility] 05-09-2022 08:10-0400 Body temperature 98.1 [degF] Bobby Tan MD Work Phone: [facility] 05-09-2022 08:10-0400 Diastolic blood pressure 84 mm[Hg] Bobby Tan MD Work Phone: [facility] 05-09-2022 08:10-0400 Heart rate 81 /min Bobby Tan MD Work Phone: [facility] 05-09-2022 08:10-0400 SaO2% (BldA) [Mass fraction] 95 % Bobby Tan MD Work Phone: [facility] 05-09-2022 08:10-0400 Systolic blood pressure 152 mm[Hg] Bobby Tan MD Work Phone: [facility] 05-07-2022 22:13-0400 Body mass index (BMI) [Ratio] 31.58 kg/m2 Bobby Tan MD Work Phone: [facility] 05-07-2022 22:13-0400 Body weight 90.1 kg Bobby Tan MD Work Phone: [facility] 05-07-2022 14:28-0400 Body height 168.9 cm Bobby Tan MD Work Phone: [facility] 03-30-2022 10:53-0400 Body weight 89.36 kg Ronda Scott MD Work Phone: [facility] 03-30-2022 10:53-0400 Diastolic blood pressure 68 mm[Hg] Ronda Scott MD Work Phone: [facility] 03-30-2022 10:53-0400 Systolic blood pressure 112 mm[Hg] Ronda Scott MD Work Phone: [facility] 02-12-2022 12:52-0400 Body height 167.6 cm Eliecer Hill CNP Work Phone: [facility] 02-12-2022 12:52-0400 Body mass index (BMI) [Ratio] 31.64 kg/m2 Eliecer Hill CNP Work Phone: [facility] 02-12-2022 12:52-0400 Body weight 88.91 kg Eliecer Hill CNP Work Phone: [facility] 11-20-2021 10:01-0400 Body height 167.6 cm Lenard Das MD Work Phone: [facility] 11-20-2021 10:01-0400 Body mass index (BMI) [Ratio] 32.44 kg/m2 Lenard Das MD Work Phone: [facility] 11-20-2021 10:01-0400 Body weight 91.17 kg Lenard Das MD Work Phone: [facility] 11-20-2021 10:01-0400 Diastolic blood pressure 78 mm[Hg] Lenard Das MD Work Phone: [facility] 11-20-2021 10:01-0400 Heart rate 80 /min Lenard Das MD Work Phone: [facility] 11-20-2021 10:01-0400 SaO2% (BldA) [Mass fraction] 98 % Lenard Das MD Work Phone: [facility] 11-20-2021 10:01-0400 Systolic blood pressure 125 mm[Hg] Lenard Das MD Work Phone: [facility] 10-14-2021 10:30-0500 Body height 167.6 cm Allegra Díaz PA-C Work Phone: [facility] 10-14-2021 10:30-0500 Body mass index (BMI) [Ratio] 31.8 kg/m2 Allegra LOPEZ-C Work Phone: [facility] 10-14-2021 10:30-0500 Body weight 89.36 kg Allegra Hardinrett PA-C Work Phone: [facility] 10-14-2021 10:30-0500 Diastolic blood pressure 83 mm[Hg] Allegra Hardinrett PA-C Work Phone: [facility] 10-14-2021 10:30-0500 Heart rate 90 /min Allegra Arjun PA-C Work Phone: [facility] 10-14-2021 10:30-0500 SaO2% (BldA) [Mass fraction] 96 % Allegra Hardinrett PA-C Work Phone: [facility] 10-14-2021 10:30-0500 Systolic blood pressure 129 mm[Hg] Allegra Arjun PA-C Work Phone: [facility] 09-04-2021 15:21-0500 Body height 167.6 cm [employer] Other Phone: [facility] 09-04-2021 15:21-0500 Body temperature 98.06 [degF] [employer] Other Phone: [facility] 09-04-2021 15:21-0500 Diastolic blood pressure 74 mm[Hg] [employer] Other Phone: [facility] 09-04-2021 15:21-0500 Heart rate 98 /min [employer] Other Phone: [facility] 09-04-2021 15:21-0500 Respiratory rate 16 /min [employer] Other Phone: [facility] 09-04-2021 15:21-0500 SaO2% (BldA) [Mass fraction] 98 % [employer] Other Phone: [facility] 09-04-2021 15:21-0500 Systolic blood pressure 108 mm[Hg] [employer] Other Phone: [facility] 08-05-2021 08:39-0500 Body mass index (BMI) [Ratio] 31.4 kg/m2 Eduardo Castro MD Work Phone: [facility] 08-05-2021 08:39-0500 Body temperature 98.2 [degF] Eduardo Castro MD Work Phone: [facility] 08-05-2021 08:39-0500 Body weight 85.59 kg Eduardo Castro MD Work Phone: [facility] 08-05-2021 08:39-0500 Diastolic blood pressure 82 mm[Hg] Eduardo Castro MD Work Phone: [facility] 08-05-2021 08:39-0500 Heart rate 107 /min Eduardo Castro MD Work Phone: [facility] 08-05-2021 08:39-0500 SaO2% (BldA) [Mass fraction] 97 % Eduardo Castro MD Work Phone: [facility] Comment on above: room air 08-05-2021 08:39-0500 Systolic blood pressure 128 mm[Hg] Eduardo Castro MD Work Phone: [facility] 02-13-2021 08:22-0400 Body height 165.1 cm Lenard Das MD Work Phone: [facility] 02-13-2021 08:22-0400 Body mass index (BMI) [Ratio] 31.28 kg/m2 Lenard Das MD Work Phone: [facility] 02-13-2021 08:22-0400 Body weight 85.28 kg Lenard Das MD Work Phone: [facility] 02-13-2021 08:22-0400 Diastolic blood pressure 65 mm[Hg] Lenard Das MD Work Phone: [facility] 02-13-2021 08:22-0400 Heart rate 82 /min Lenard Das MD Work Phone: [facility] 02-13-2021 08:22-0400 SaO2% (BldA) [Mass fraction] 96 % Lenard Das MD Work Phone: [facility] 02-13-2021 08:22-0400 Systolic blood pressure 100 mm[Hg] Lenard Das MD Work Phone: [facility] 02-11-2021 09:26-0400 Diastolic blood pressure 63 mm[Hg] Richard Braga MD Work Phone: [facility] 02-11-2021 09:26-0400 Heart rate 90 /min Richard Braga MD Work Phone: [facility] 02-11-2021 09:26-0400 Respiratory rate 16 /min Richard Braga MD Work Phone: [facility] 02-11-2021 09:26-0400 SaO2% (BldA) [Mass fraction] 96 % Richard Braga MD Work Phone: [facility] 02-11-2021 09:26-0400 Systolic blood pressure 93 mm[Hg] Richard Braga MD Work Phone: [facility] 01-06-2021 08:55-0400 Body mass index (BMI) [Ratio] 31.62 kg/m2 Latricia iWlson MD Work Phone: [facility] 01-06-2021 08:55-0400 Body weight 86.18 kg Latricia Wilson MD Work Phone: [facility] 01-06-2021 08:55-0400 Diastolic blood pressure 64 mm[Hg] Latricia Wilson MD Work Phone: [facility] 01-06-2021 08:55-0400 Heart rate 96 /min Latricia Wilson MD Work Phone: [facility] 01-06-2021 08:55-0400 Systolic blood pressure 102 mm[Hg] Latricia Wilson MD Work Phone: [facility] 12-20-2020 16:02-0400 Diastolic blood pressure 77 mm[Hg] Lenard Das MD Work Phone: [facility] 12-20-2020 16:02-0400 Heart rate 89 /min Lenard Das MD Work Phone: [facility] 12-20-2020 16:02-0400 SaO2% (BldA) [Mass fraction] 95 % Lenard Das MD Work Phone: [facility] 12-20-2020 16:02-0400 Systolic blood pressure 137 mm[Hg] Lenard Das MD Work Phone: [facility] 12-20-2020 15:17-0400 Respiratory rate 16 /min Lenard Das MD Work Phone: [facility] 11-14-2020 09:06-0500 BMI (Body Mass Index) 34.28 kg/m2 [facility] 11-14-2020 09:06-0500 Body weight 93.44 kg [facility] 11-14-2020 09:06-0500 Height 165.1 cm [facility] 10-01-2020 09:49-0500 BMI (Body Mass Index) 34.28 kg/m2 [facility] 10-01-2020 09:49-0500 Body weight 93.44 kg [facility] 10-01-2020 09:49-0500 Height 165.1 cm [facility] 08-07-2020 10:29-0500 BMI (Body Mass Index) 34.28 kg/m2 [facility] 08-07-2020 10:29-0500 Body weight 93.44 kg [facility] 08-07-2020 10:29-0500 Height 165.1 cm [facility] 06-07-2020 10:24-0400 BMI (Body Mass Index) 34.28 kg/m2 [facility] 06-07-2020 10:24-0400 Body weight 93.44 kg [facility] 06-07-2020 10:24-0400 BP Diastolic 78 mm[Hg] [facility] 06-07-2020 10:24-0400 BP Systolic 132 mm[Hg] [facility] 06-07-2020 10:24-0400 Height 165.1 cm [facility] 06-07-2020 10:24-0400 Pulse (Heart Rate) 104 /min Cecilia Campos [facility] 06-07-2020 10:24-0400 Pulse Oximetry 97 % Cecilia Campos [facility] 05-09-2020 08:44-0400 BMI (Body Mass Index) 33.45 kg/m2 [facility] 05-09-2020 08:44-0400 Body Temperature 98.2 [degF] [facility] 05-09-2020 08:44-0400 Body weight 91.17 kg [facility] 05-09-2020 08:44-0400 Respiratory Rate 16 /min [facility] 11-13-2019 09:18-0400 BMI (Body Mass Index) 34.61 kg/m2 Cecilia [facility] 11-13-2019 09:18-0400 Body weight 94.35 kg [facility] 11-13-2019 09:18-0400 BP Diastolic 68 mm[Hg] [facility] 11-13-2019 09:18-0400 BP Systolic 110 mm[Hg] [facility] 11-13-2019 09:18-0400 Height 165.1 cm [facility] 11-13-2019 09:18-0400 Pulse (Heart Rate) 74 /min [facility] 11-13-2019 09:18-0400 Pulse Oximetry 100 % [facility] 11-07-2019 08:15-0500 BMI (Body Mass Index) 32.14 kg/m2 [facility] 11-07-2019 08:15-0500 Body weight 90.27 kg [facility] 11-07-2019 08:15-0500 BP Diastolic 68 mm[Hg] [facility] 11-07-2019 08:15-0500 BP Systolic 123 mm[Hg] [facility] 11-07-2019 08:15-0500 Pulse (Heart Rate) 85 /min [facility] 11-07-2019 08:15-0500 Pulse Oximetry 98 % [facility] 11-07-2019 08:15-0500 Respiratory Rate 16 /min [facility] 08-11-2019 07:59-0500 BMI (Body Mass Index) 32.15 kg/m2 [facility] 08-11-2019 07:59-0500 Body weight 90.3 kg [facility] 08-11-2019 07:59-0500 BP Diastolic 78 mm[Hg] [facility] 08-11-2019 07:59-0500 BP Systolic 128 mm[Hg] [facility] 08-11-2019 07:59-0500 Height 167.6 cm [facility] 08-11-2019 07:59-0500 Pulse (Heart Rate) 99 /min [facility] 08-09-2019 08:55-0500 BMI (Body Mass Index) 32.12 kg/m2 [facility] 08-09-2019 08:55-0500 Body weight 90.27 kg [facility] 08-09-2019 08:55-0500 BP Diastolic 86 mm[Hg] [facility] 08-09-2019 08:55-0500 BP Systolic 141 mm[Hg] [facility] 08-09-2019 08:55-0500 Height 167.6 cm [facility] 08-09-2019 08:55-0500 Pulse (Heart Rate) 111 /min [facility] 08-09-2019 08:55-0500 Pulse Oximetry 98 % [facility] 07-26-2019 09:31-0500 BMI (Body Mass Index) 32.12 kg/m2 [facility] 07-26-2019 09:31-0500 Body weight 90.27 kg [facility] 07-26-2019 09:31-0500 BP Diastolic 68 mm[Hg] [facility] 07-26-2019 09:31-0500 BP Systolic 124 mm[Hg] [facility] 07-26-2019 09:31-0500 Pulse (Heart Rate) 114 /min [facility] 07-26-2019 09:31-0500 Pulse Oximetry 98 % [facility] 07-26-2019 09:31-0500 Respiratory Rate 16 /min [facility] 07-13-2019 08:47-0500 BMI (Body Mass Index) 32.12 kg/m2 [facility] 07-13-2019 08:47-0500 Body weight 90.27 kg [facility] 07-13-2019 08:47-0500 BP Diastolic 58 mm[Hg] [facility] 07-13-2019 08:47-0500 BP Systolic 102 mm[Hg] [facility] 07-13-2019 08:47-0500 Pulse (Heart Rate) 106 /min [facility] 07-13-2019 08:47-0500 Pulse Oximetry 97 % [facility] 07-13-2019 08:47-0500 Respiratory Rate 16 /min [facility] 04-20-2019 08:05-0400 BMI (Body Mass Index) 29.38 kg/m2 [facility] 04-20-2019 08:05-0400 Body weight 82.56 kg [facility] 04-20-2019 08:05-0400 BP Diastolic 74 mm[Hg] [facility] 04-20-2019 08:05-0400 BP Systolic 128 mm[Hg] [facility] 04-20-2019 08:05-0400 Height 167.6 cm [facility] 04-20-2019 08:05-0400 Pulse (Heart Rate) 104 /min [facility] 12-01-2018 08:31-0400 BMI (Body Mass Index) 29.38 kg/m2 [facility] 12-01-2018 08:31-0400 BP Diastolic 77 mm[Hg] [facility] 12-01-2018 08:31-0400 BP Systolic 137 mm[Hg] [facility] 12-01-2018 08:31-0400 Height 167.6 cm [facility] 12-01-2018 08:31-0400 Pulse (Heart Rate) 101 /min [facility] 12-01-2018 08:31-0400 Weight 82.56 kg [facility] 11-03-2018 15:30-0500 BMI (Body Mass Index) 29.38 kg/m2 [facility] 11-03-2018 15:30-0500 BP Diastolic 66 mm[Hg] [facility] 11-03-2018 15:30-0500 BP Systolic 120 mm[Hg] [facility] 15:30-0500 Height 167.6 cm Elba [facility] 11-03-2018 15:30-0500 Pulse (Heart Rate) 106 /min [facility] 11-03-2018 15:30-0500 Weight 82.56 [facility] 02-09-2018 15:29-0400 BP Diastolic 76 mm[Hg] [facility] 02-09-2018 15:29-0400 BP Systolic 114 mm[Hg] [facility] 02-09-2018 15:29-0400 Pulse (Heart Rate) 111 /min [facility] 02-09-2018 15:29-0400 Pulse Oximetry 96 % [facility] 02-09-2018 15:29-0400 Respiratory Rate 16 /min [facility] 02-09-2018 15:27-0400 Body Temperature 98.91 [degF] [facility] 02-08-2018 21:52-0400 BMI (Body Mass Index) 31.85 kg/m2 [facility] 02-08-2018 21:52-0400 Height 167.6 cm [facility] 02-08-2018 21:52-0400 Weight 89.5 kg [facility] 12-27-2017 13:13-0400 BMI (Body Mass Index) 29.41 kg/m2 [facility] 12-27-2017 13:13-0400 BP Diastolic 60 mm[Hg] [facility] 12-27-2017 13:13-0400 BP Systolic 112 mm[Hg] [facility] 12-27-2017 13:13-0400 Pulse (Heart Rate) 101 /min [facility] 12-27-2017 13:13-0400 Pulse Oximetry 95 % [facility] 12-27-2017 13:13-0400 Respiratory Rate 18 /min [facility] 12-27-2017 13:13-0400 Weight 83.92 kg [facility] 09-20-2017 13:57-0500 BMI (Body Mass Index) 29.41 kg/m2 Yair Olvera [facility] Work Phone: 09-20-2017 13:57-0500 Height 168.9 cm Yair Olvera [facility] Work Phone: 09-20-2017 13:570500 Weight 83.92 kg Yair Olvera [facility] Work Phone: Encounters Encounter Date Encounter Type Care Provider Facility Start: 01-24-2025 End: 02-28-2025 Cardiac Device Check Radha Hubbard DO Work Phone: [facility] Start: 01-24-2025 End: 02-28-2025 Cardiac Device Check Radha Hubbard DO Work Phone: [facility] Start: 01-24-2025 End: 01-24-[address] Olivier Acosta MD Work Phone: [facility] Work Phone: Start: 01-24-2025 End: 01-24-2025 Departed Referred Benjamín Tavarez MD [facility] Start: 01-24-2025 End: 01-24-2025 ambulatory Olivier Acosta Facility:[facility] Start: 12-05-2024 End: 12-05-2024 ambulatory Benjamín Tavarez [facility] Start: 12-05-2024 End: 12-05-[address] Benjamín Tavarez [place] [place] [facility] [place] Work Phone: Start: 11-20-2024 End: 11-20-2024 ambulatory Shirlene Morelos NP Facility:[facility] Start: 11-20-2024 End: 11-20-2024 Patient encounter procedure Shirlene Morelos [employer] [facility] [place] [place] [facility] [place] Work Phone: Start: 10-25-2024 End: 11-09-2024 Cardiac Device Check Radha Hubbard DO Work Phone: [facility] Start: 10-25-2024 End: 11-09-2024 Cardiac Device Check Radha Hubbard DO Work Phone: [facility] Start: 10-10-2024 End: 10-10-2024 ambulatory Efewongbe Oleghe Facility:[facility] Start: 09-20-2024 [facility] Start: 09-20-2024 Encounter for genera l adult medical examination without abnormal findings [facility] Start: 09-13-2024 ambulatory Olivier Minaamritgerardorae Facili ty:[facility] Start: 09-08-2024 End: 09-08-2024 ambulatory Olivier Kalamrittti Facility:[facility] Start: 08-11-2024 End: 08-11-2024 ambulatory Olivier Kalamrittti Facility:[facility] Start: 08-08-2024 End: 08-08-2024 Orders Only Radha Hubbard DO Work Phone: [facility] Comment on above: Abnormal ECG (Primar y Dx) Start: 08-08-2024 End: 08-08-2024 ambulatory Olivier Acosta Facility:[facility] Start: 08-01-2024 End: 08-01-2024 ambulatory Olivier Smithgerardoi Facility:[facility] Start: 07-26-2024 End: 07-26-2024 Cardiac Device Check Radha Hubbard DO Work Phone: [facility] Start: 07-26-2024 End: 07-26-2024 Cardiac Device Check Radha Hubbard DO Work Phone: [facility] Start: 07-12-2024 End: 07-12-2024 ambulatory Olivier Blankenshipi Facility:[facility] Start: 07-11-2024 End: 07-11-2024 ambulatory Olivier Luistti Facility:[facility] Start: 06-15-2024 End: 06-15-2024 ambulatory Efewongbe Dariuse OLS Facility:[facility] Start: 06-13-2024 End: 06-13-2024 ambulatory Efewongbe Oleghe Facility:[facility] Start: 06-09-2024 End: 06-09-2024 ambulatory Shirlene Morelos NP Facility:[facility] Start: 06-07-2024 ambulatory Efewongbe Oleghe OLS Fa cility:[facility] Start: 06-06-2024 End: 06-06-2024 ambulatory Efewongbe Oleosbaldoe OLS Facility:[facility] Start: 05-19-2024 ambulatory Efewongbe Oleghe OLS Fa cility:[facility] Start: 05-10-2024 End: 05-10-2024 ambulatory Shirleneheather Morelos [employer] [facility] Facility:[facility] Start: 05-09-2024 ambulatory Efewongbe Oleghe OLS Fa cility:[facility] Start: 04-26-2024 End: 05-23-2024 Cardiac Device Check Radha Hubbard DO Work Phone: [facility] Start: 04-26-2024 End: 05-23-2024 Cardiac Device Check Radha Hubbard DO Work Phone: [facility] Start: 04-25-2024 ambulatory Efewongbe Dariuse OLS Fa cility:[facility] Start: 04-11-2024 End: 04-11-2024 ambulatory Efewongbe Dariuse Facility:[facility] Start: 04-05-2024 End: 04-06-2024 ambulatory Shirlene Morelos [employer] Facility:[facility] Start: 04-04-2024 End: 04-05-2024 ambulatory Efewongbe Dariuse OLS Facility:[facility] Start: 01-26-2024 End: 01-27-2024 ambulatory OLIVIER ACOSTA [facility] Start: 12-24-2023 End: 04-03-2024 ambulatory [address]IVIER ACOSTA [facility] Start: 12-19-2023 ambulatory CHE BATISTA [facility] Start: 12-14-2023 End: 12-14-2023 Encounter identifier Vipul Guerrero Work Phone: [facility] Work Phone: Start: 12-10-2023 End: 12-10-2023 Encounter identifier Vipul Guerrero Work Phone: [facility] Work Phone: Start: 12-10-2023 End: 12-17-2023 Evaluation and management of [facility] Start: 12-10-2023 End: 12-17-2023 Evaluation and management of inpatient Urbano Reis MD Work Phone: [facility] Start: 12-02-2023 Transcribe Orders Olivier amaya MD Work Phone: [facility], Neuroscience Comment on above: NPH (normal pressure hydrocephalus) (HCC) (Primary Dx) Start: 11-23-2023 End: 11-24-2023 Evaluation and management of inpatient SHAHNAZ CAROLINA [facility] Start: 11-17-2023 End: 11-18-2023 Emergency department patient visit OLIVIER CAROLINA [facility] Start: 11-07-2023 End: 11-07-2023 Emergency department patient visit OLIVIER CAROLINA [facility] Start: 10-25-2023 End: 10-29-[facility] Start: 10-25-2023 End: 10-25-2023 Office outpatient visit 15 minutes Eliecer Hill [facility] Work Phone: [facility] Comment on above: Primary osteoarthrit is of right knee (Primary Dx) Start: 10-22-2023 End: 10-22-2023 Emergency department patient visit ANA [facility] Start: 10-18-2023 End: 10-22-2023 ambulatory LUISANA GutiérrezJacobo ALCARAZ [facility] Start: 10-18-2023 End: 10-18-[address] Olivier Acosta Work Phone: [facility] Work Phone: Start: 10-18-2023 End: 10-18-[address] Olivier Acosta Work Phone: [facility] Work Phone: Start: 10-01-2023 Orders Only Yair swanson PA-C Work Phone: [facility] Comment on above: Closed wedge fractur e of thoracic vertebra with routine healing, unspecified thoracic vertebral level, subsequent encounter (Primary Dx); Closed wedge fracture of lumbar vertebra with delayed healing, unspecified lumbar vertebral level, subsequent encounter Start: 09-30-2023 End: 10-02-2023 Evaluation and management of inpatient [facility] Start: 08-25-2023 End: 08-26-2023 ambulatory [facility] Start: 08-17-2023 End: 08-17-2023 ambulatory [facility] Start: 08-17-2023 End: 08-17-2023 Postop follow up visit related to original px Poornima Fernandez MAGNETIC PROSPECTING OPERATOR Work Phone: [facility] Comment on above: Status post kyphopla sty (Primary Dx); Closed wedge fracture of thoracic vertebra with routine healing, unspecified thoracic vertebral level, subsequent encounter; Night muscle spasms Start: 08-10-2023 End: 08-11-2023 ambulatory RADHA HUBBARD [facility] Start: 08-10-2023 End: 08-10-2023 Office outpatient visit 25 minutes Radha Hubbard DO Work Phone: [facility] Comment on above: Syncope, unspecified syncope type (Primary Dx); Bradycardia; Pacemaker; Abnormal ECG Start: 08-10-2023 End: 08-10-2023 ambulatory LUISANA GutiérrezJacobo [facility] Start: 08-05-2023 End: 08-05-2023 ambulatory [facility] Start: 07-19-2023 End: 07-19-2023 ambulatory [facility] Start: 07-19-2023 End: 07-19-2023 Postop follow up visit related to original mariela Fernandez MAGNETIC PROSPECTING OPERATOR Work Phone: [facility] Comment on above: Status post kyphopla sty (Primary Dx); Vertigo; Age-related osteoporosis with current pathological fracture with routine healing, subsequent encounter; Closed wedge fracture of lumbar vertebra with delayed healing, unspecified lumbar vertebral level, subsequent encounter Start: 07-14-2023 End: 07-15-2023 ambulatory [facility] Start: 07-05-2023 End: 07-11-2023 Evaluation and management of inpatient [facility] Start: 07-05-2023 End: 07-05-2023 ambulatory [facility] Start: 06-29-2023 End: 06-29-[address] Olivier Acosta Work Phone: [facility] Work Phone: Start: 06-29-2023 End: 06-29-[address] Olivier Acosta Work Phone: [facility] Work Phone: Start: 06-29-2023 End: 06-29-[address] Olivier Acosta Work Phone: [facility] Work Phone: Start: 06-17-2023 Refill Greer Benitez MA [facility] Comment on above: Medication Refill Start: 05-31-2023 End: 06-01-2023 ambulatory [facility] Start: 05-28-2023 End: 05-29-2023 ambulatory [facility] Start: 05-28-2023 End: [facility] Start: 05-28-2023 End: 05-28-2023 Office outpatient new 45 minutes Callie Ramirez MD Work Phone: [facility] Comment on above: Acute thoracic back pain, unspecified back pain laterality (Primary Dx); Back pain, unspecified back location, unspecified back pain laterality, unspecified chronicity; Pain of left calf Start: 05-04-2023 End: 05-08-2023 ambulatory [facility] Start: 05-04-2023 End: 05-04-2023 Clinical Support Eliecer Hill CNP Work Phone: [facility] Comment on above: Primary osteoarthrit is of right knee (Primary Dx) Start: 03-25-2023 Orders Only Maggie Faith RN [facility] Start: 03-23-2023 End: 03-23-2023 Refill Maggie Faith RN [facility] Start: 03-23-2023 End: 03-23-2023 Office outpatient visit 25 minutes Callie Ramirez MD Work Phone: [facility] Comment on above: Pacemaker; Orthostatic hypotension Start: 03-22-2023 End: 03-23-2023 ambulatory [facility] Start: 03-17-2023 ambulatory [facility] Start: 01-05-2023 End: 01-06-2023 ambulatory RADHA HUBBARD [facility] Start: 12-08-2022 ambulatory Ms. Gisele roman [facility] Facility:[id number] Start: 10-13-2022 Patient encounter procedure Itri Biju Thapan Work Phone: [facility] Start: 10-13-2022 Progress Note Itri A Maxim Work Phone: [facility] Start: 10-12-2022 Dr. Olivier campbell Work Phone: [facility] Start: 10-11-2022 Dr. Olivier campbell Work Phone: [facility] Start: 10-10-2022 Dr. Olivier campbell Work Phone: [facility] Start: 10-09-2022 End: 10-12-2022 Evaluation and management of inpatient Dr. Olivier Acosta Work Phone: [facility] Work Phone: Start: 10-09-2022 End: 10-12-2022 Dr[facility] Start: 10-09-2022 Dr. Olivier campbell Work Phone: [facility] Start: 10-08-2022 Non-patient / Non-visit Dr. Yuni Acosta Work Phone: [facility] Start: 10-08-2022 Dr. Olivier campbell Work Phone: [facility] Start: 10-08-2022 Evaluation and management of inpatient Dr. Olivier Acosta Work Phone: [facility] Start: 10-08-[address] Justin Acosta Work Phone: [facility] Work Phone: Start: 09-30-2022 End: 09-30-[address] Olivier Acosta Work Phone: [facility] Start: 09-30-2022 End: 09-30-2022 Dr. Olivier Acosta Work Phone: [facility] Start: 09-30-2022 End: 09-30-[address] Olivier Acosta Work Phone: [facility] Work Phone: Start: 09-30-[address] Olivier Acosta Work Phone: [facility] Start: 09-30-2022 End: 09-30-2022 Dr. Olivier Acosta Work Phone: [facility] Start: 09-25-2022 End: 09-25-2022 Emergency department patient visit Dr. Olivier Acosta Work Phone: [facility] Start: 09-25-2022 End: 09-25-2022 Dr. Olivier Acosta Work Phone: [facility] Start: 09-22-2022 Non-patient / Non-visit Dr. Yuni Acosta Work Phone: [facility] Start: 09-22-2022 Dr. Olivier campbell Work Phone: [facility] Start: 09-21-2022 Non-patient / Non-visit Dr. Yuni Acosta Work Phone: [facility] Start: 09-21-2022 Dr. Olivier campbell Work Phone: [facility] Start: 09-21-2022 Non-patient / Non-visit Dr. Yuni Acosta Work Phone: [facility] Start: 09-21-2022 Dr. Olivier campbell Work Phone: [facility] Start: 09-21-2022 End: 09-21-2022 Non-patient / Non-visit Dr. Olivier Acosta Work Phone: [facility] Start: 09-21-2022 End: 09-21-2022 Dr. Olivier Acosta Work Phone: [facility] Start: 09-20-2022 Non-patient / Non-visit Dr. Yuni Acosta Work Phone: [facility] Start: 09-20-2022 Dr. Olivier campbell Work Phone: [facility] Start: 09-20-2022 Non-patient / Non-visit Dr. Yuni Acosta Work Phone: [facility] Start: 09-20-2022 Dr. Olivier campbell Work Phone: [facility] Start: 09-19-2022 Non-patient / Non-visit Dr. Yuni Acosta Work Phone: [facility] Start: 09-19-2022 Dr. Olivier campbell Work Phone: [facility] Start: 09-19-2022 Non-patient / Non-visit Dr. Yuni Acosta Work Phone: [facility] Start: 09-19-2022 Dr. Olivier campbell Work Phone: [facility] Start: 09-18-2022 Non-patient / Non-visit Dr. Yuni Acosta Work Phone: [facility] Start: 09-18-2022 End: 09-22-2022 Evaluation and management of inpatient Dr. Olivier Acosta Work Phone: [facility] Start: 09-18-2022 End: 09-22-2022 Dr. Olivier Acosta Work Phone: [facility] Start: 09-14-2022 Non-patient / Non-visit Dr. Yuni Acosta Work Phone: [facility] Start: 09-14-2022 Dr. Olivier campbell Work Phone: [facility] Start: 09-13-2022 Non-patient / Non-visit Dr. Yuni Acosta Work Phone: [facility] Start: 09-13-2022 Dr. Olivier campbell Work Phone: [facility] Start: 09-13-2022 Non-patient / Non-visit Dr. Yuni Acosta Work Phone: [facility] Start: 09-13-2022 Dr. Olivier campbell Work Phone: [facility] Start: 09-12-2022 Non-patient / Non-visit Dr. Yuni Acosta Work Phone: [facility] Start: 09-12-2022 End: 09-14-2022 Evaluation and management of inpatient Dr. Olivier Acosta Work Phone: [facility] Start: 09-12-2022 End: 09-14-2022 Dr. Olivier Acosta Work Phone: [facility] Start: 09-01-2022 Non-patient / Non-visit Dr. Yuni Acosta Work Phone: [facility] Start: 09-01-2022 Dr. Olivier campbell Work Phone: [facility] Start: 08-31-2022 Non-patient / Non-visit Dr. Yuni Acosta Work Phone: [facility] Start: 08-31-2022 End: 09-01-2022 Evaluation and management of inpatient Dr. Olivier Acosta Work Phone: [facility] Start: 08-31-2022 End: 09-01-2022 Dr. Olivier Acosta Work Phone: [facility] Start: 08-20-2022 End: 08-20-2022 Office outpatient visit 25 minutes Cecilia Campos MD Work Phone: [facility] Comment on above: Pacemaker (Primary D x); Tachycardia Start: 08-13-2022 End: 08-13-2022 Office outpatient visit 10 minutes Radha Hubbard DO Work Phone: [facility] Comment on above: AV block (Primary Dx ) Start: 08-06-2022 End: 08-06-[address] Olivier Acosta Work Phone: [facility] Start: 08-06-2022 End: 08-06-2022 Dr. Olivier Acosta Work Phone: [facility] Start: 08-03-2022 Non-patient / Non-visit Dr. Yuni Acosta Work Phone: [facility] Start: 08-03-2022 Dr. Olivier campbell Work Phone: [facility] Start: 07-28-2022 End: 07-28-[address] Olivier Acosta Work Phone: [facility] Work Phone: Start: 07-28-2022 End: 07-28-[address] Olivier Acosta Work Phone: [facility] Start: 07-28-2022 End: 07-28-2022 Dr. Olivier Acosta Work Phone: [facility] Start: 07-14-2022 Documentation procedure Mammog alexsander Coordinator [facility] Start: 07-14-2022 Letter encounter Mammography Coordinator [facility] Department Start: 07-14-2022 End: 07-14-2022 Subsequent hospital visit by physician Screen Mammo [facility] Mammogram Comment on above: Abnormal finding on breast imaging [R92.8] Start: 07-02-2022 End: 07-02-2022 ambulatory [facility] Work Phone: Start: 07-02-2022 End: 07-02-2022 Patient encounter procedure [facility] Start: 07-02-2022 End: 07-02-2022 Dr. Olivier Acosta Work Phone: [facility] Start: 06-18-2022 End: 06-18-2022 Emergency department patient visit [facility] Start: 06-18-2022 End: 06-18-2022 Dr. Olivier Acosta Work Phone: [facility] Start: 05-25-2022 End: 05-25-2022 Clinical Support Eliecer Hill MAGNETIC PROSPECTING OPERATOR Work Phone: [facility] Comment on above: Primary osteoarthrit is of right knee (Primary Dx) Start: 05-19-2022 End: 05-19-2022 Clinical Support Angelina Jules RN [facility] Start: 05-07-2022 End: 05-09-2022 Evaluation and management of inpatient Bobby Tan MD Work Phone: [facility] Start: 05-07-2022 End: 05-07-2022 Office outpatient new 45 minutes Lenard Das MD Work Phone: [facility] Comment on above: Pacemaker Start: 03-30-2022 End: 03-30-2022 Patient encounter procedure Ronda Scott MD Work Phone: OB/Gynecology Comment on above: 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) Start: 02-24-2022 Documentation procedure Shakeel gonzalez RN [facility] Comment on above: Pacemaker (Primary D x) Start: 02-12-2022 End: 02-12-2022 Patient encounter procedure Eliecer Hill MAGNETIC PROSPECTING OPERATOR Work Phone: [facility] Comment on above: Primary osteoarthrit is of right knee (Primary Dx) Start: 02-10-2022 End: 02-10-2022 Patient encounter procedure [facility] Start: 01-14-2022 AUDIT Mimi evangelista Work Phone: [id number] Work Phone: Start: 01-07-2022 End: 01-07-2022 Office outpatient visit 25 minutes Eliecer iHll CNP Work Phone: [facility] Comment on above: Shoulder arthritis ( Primary Dx) Start: 01-06-2022 End: 01-06-2022 Clinical Support Shakeel Aggarwal RN [facility] Comment on above: Arrived Start: 01-05-2022 Documentation procedure Marliy garcia RN [facility] Start: 12-23-2021 End: 12-23-2021 Refill Shakeel Aggarwal RN [facility] Comment on above: Medication Refill Arrived LV dysfunction (Prim xiang Dx) Start: 12-19-2021 Documentation procedure Shakeel gonzalez RN [facility] Start: 11-21-2021 Patient encounter status Shakeel zamora RN [facility] Work Phone: Start: 11-20-2021 End: 11-20-2021 Office outpatient visit 40 minutes Lenard Das MD Work Phone: [facility] Comment on above: Syncope, unspecified syncope type Start: 10-14-2021 End: 10-14-2021 Office outpatient visit 25 minutes Allegra Díaz PA-C Work Phone: [facility] Comment on above: Syncope, unspecified syncope type Start: 09-15-2021 End: 09-15-2021 Patient encounter procedure Eliecer Hill CNP Work Phone: [facility] Comment on above: Primary osteoarthrit is of right hip (Primary Dx); Primary osteoarthritis of left hip; Osteoarthritis of right knee, unspecified osteoarthritis type; Other specified diabetes mellitus without complication, with long-term current use of insulin (HCC) Start: 09-14-2021 End: 09-14-2021 [facility] Start: 09-04-2021 End: 09-04-2021 Emergency department patient visit Dyana Coleman [facility] Start: 08-26-2021 AUDIT Mimi Bermudez Elayne evangelista Work Phone: [id number] Work Phone: Start: 08-21-2021 End: 08-21-2021 Patient encounter procedure Eliecer Hill MAGNETIC PROSPECTING OPERATOR Work Phone: [facility] Comment on above: Primary osteoarthrit is of both knees (Primary Dx) Start: 08-05-2021 End: 08-05-2021 Office outpatient visit 25 minutes Eduardo Castro MD Work Phone: [facility] Comment on above: Influenza vaccine ne eded (Primary Dx); Asthma, unspecified asthma severity, unspecified whether complicated, unspecified whether persistent; Lung nodules Start: 07-24-2021 Orders Only Janae Lind brady MAGNETIC PROSPECTING OPERATOR Work Phone: [facility] Comment on above: Medication Refill Start: 07-10-2021 Documentation procedure Lenard Das MD Work Phone: [facility] Start: 06-25-2021 End: 06-25-2021 Patient encounter status Latricia Wilson MD Work Phone: [facility] Start: 06-25-2021 End: 06-25-2021 Phys/qhp telephone evaluation 21-30 min Latricia Wilson MD Work Phone: [facility] Comment on above: Age-related osteopor osis with current pathological fracture with routine healing, subsequent encounter (Primary Dx); Healthcare maintenance; Stage 3 chronic kidney disease, unspecified whether stage 3a or 3b CKD (HCC); 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 Start: 05-05-2021 End: 05-05-2021 Patient encounter procedure Eliecer Hill CNP Work Phone: [facility] Comment on above: Primary osteoarthrit is of right hip (Primary Dx); Primary osteoarthritis of left hip; Primary osteoarthritis of both knees Start: 04-30-2021 AUDIT Mimi Bermudez Elayne evangelista Work Phone: [id number] Work Phone: Start: 02-24-2021 End: 02-24-2021 Subsequent hospital visit by physician Steffany Fowler MD Work Phone: [facility] Comment on above: Arrived Start: 02-13-2021 End: 02-13-2021 Office outpatient visit 40 minutes Cecilia Campos MD Work Phone: [facility] Comment on above: Tachycardia; Syncope, unspecified syncope type Start: 02-11-2021 End: 02-11-2021 Office outpatient new 60 minutes Cecilia Campos MD Work Phone: [facility] Comment on above: Orthostatic hypotens ion (Primary Dx); Dizzy spells; Amnestic MCI (mild cognitive impairment with memory loss); Stenosis of right internal carotid artery; Right-sided Johnson's palsy Start: 02-10-2021 End: 02-10-2021 Orders Only Shakeel Aggarwal RN [facility] Comment on above: Syncope, unspecified syncope type (Primary Dx) Start: 01-20-2021 End: 01-20-2021 Subsequent hospital visit by physician Steffany Fowler MD Work Phone: [facility] Comment on above: Arrived Start: 01-07-2021 End: 01-07-2021 Office outpatient visit 15 minutes Eliecer Hill MAGNETIC PROSPECTING OPERATOR Work Phone: [facility] Comment on above: Closed fracture of r ight tibial plateau with routine healing, subsequent encounter (Primary Dx); Primary osteoarthritis of right hip; Primary osteoarthritis of left hip; Trochanteric bursitis of both hips Start: 01-06-2021 End: 01-06-2021 Subsequent hospital visit by physician Latricia Wilson MD Work Phone: [facility] Comment on above: Arrived Start: 01-06-2021 End: 01-06-2021 Office outpatient visit 25 minutes Latricia Wilson MD Work Phone: [facility] Comment on above: Arthralgia, unspecif ied joint (Primary Dx); Age-related osteoporosis with current pathological fracture with routine healing, subsequent encounter; Age-related osteoporosis without current pathological fracture; Chronic kidney disease, unspecified CKD stage; Visit for monitoring Reclast therapy Start: 12-26-2020 End: 12-26-2020 Clinical Support Mariela Petty RN [facility] Comment on above: Arrived Start: 12-20-2020 End: 12-20-2020 Subsequent hospital visit by physician Lenard Das MD Work Phone: [facility] Procedural Care Unit Start: 12-16-2020 Patient encounter procedure [facility] Work Phone: Start: 12-11-2020 End: 12-11-2020 Refill Maggie Boo [facility] Comment on above: Medication Refill Start: 12-11-2020 Patient encounter procedure [facility] Work Phone: Start: 12-09-2020 Patient encounter procedure [facility] Work Phone: Start: 12-06-2020 Patient encounter procedure [facility] Work Phone: Start: 12-02-2020 Patient encounter procedure [facility] Work Phone: Start: 11-29-2020 Patient encounter procedure [facility] Work Phone: Start: 11-27-2020 Patient encounter procedure Pat[facility] Work Phone: Start: 11-22-2020 Patient encounter procedure [facility] Work Phone: Start: 11-20-2020 Patient encounter procedure [facility] Work Phone: Start: 11-14-2020 End: 11-14-2020 Office outpatient visit 15 minutes Eliecer Hill Work Phone: [facility] Comment on above: Closed fracture of r ight tibial plateau with routine healing, subsequent encounter (Primary Dx); Primary osteoarthritis of both knees Start: 10-22-2020 End: 10-22-2020 Phys/qhp telephone evaluation 21-30 min Eliecer Hill Work Phone: [facility] Comment on above: Arthralgia, unspecif ied joint (Primary Dx); Age-related osteoporosis with current pathological fracture with routine healing, subsequent encounter; Vitamin D deficiency, unspecified Start: 10-17-2020 End: 10-17-2020 Office outpatient visit 10 minutes Eliecer Hill Work Phone: [facility] Comment on above: Closed fracture of r ight tibial plateau, initial encounter (Primary Dx) Start: 10-14-2020 End: 10-14-2020 Orders Only Rahel Espino Work Phone: [facility] (FORMERLY [facility]) [facility] Start: 10-09-2020 End: 10-09-2020 Office outpatient visit 10 minutes Eliecer Hill Work Phone: [facility] Comment on above: Sprain of lateral co llateral ligament of right knee, initial encounter (Primary Dx); Tear of lateral meniscus of right knee, unspecified tear type, unspecified whether old or current tear, subsequent encounter Start: 10-01-2020 End: 10-01-2020 Office outpatient visit 15 minutes Eliecer Hill Work Phone: [facility] Comment on above: Sprain of lateral co llateral ligament of right knee, initial encounter (Primary Dx) Start: 09-30-2020 End: 09-30-2020 Orders Only Steve Palacios Work Phone: [facility] Comment on above: YVONNE (obstructive sle ep apnea) (Primary Dx) Start: 08-07-2020 End: 08-07-2020 Clinical Support Eliecer Hill Work Phone: [facility] Comment on above: Primary osteoarthrit is of right hip (Primary Dx); Primary osteoarthritis of left hip; Primary osteoarthritis of right knee; Trochanteric bursitis of both hips; Arthralgia, unspecified joint Start: 08-05-2020 End: 08-05-2020 Subsequent hospital visit by physician Steve Palacios Work Phone: [facility] Comment on above: YVONNE (obstructive sle ep apnea) Start: 07-22-2020 End: 07-22-2020 Subsequent hospital visit by physician Angelina Lopez Work Phone: [facility] CT Scan Comment on above: Lung nodules Start: 07-15-2020 End: 07-15-2020 Documentation procedure Steve Palacios Work Phone: [facility] Start: 06-07-2020 End: 06-07-2020 Office outpatient visit 25 minutes Cecilia Campos Work Phone: [facility] Comment on above: Tachycardia (Primary Dx); NOBLE (dyspnea on exertion); Dizziness; Echocardiogram abnormal; Sleep apnea, unspecified type; Mixed hyperlipidemia Start: 05-09-2020 End: 05-09-2020 Office outpatient visit 15 minutes Angelina Lopez Work Phone: [facility] Comment on above: Asthma, unspecified asthma severity, unspecified whether complicated, unspecified whether persistent (Primary Dx) Start: 04-26-2020 End: 04-26-2020 Documentation procedure Kadi Cook [facility] Start: 04-24-2020 End: 04-24-2020 Office outpatient visit 15 minutes Eliecer Hill Work Phone: [facility] Comment on above: Primary osteoarthrit is of right knee (Primary Dx) Start: 02-19-2020 End: 02-19-2020 Clinical Support Elba Reyes Work Phone: [facility] Comment on above: Primary osteoarthrit is of right hip (Primary Dx); Primary osteoarthritis of left hip Start: 11-13-2019 End: 11-13-2019 Office outpatient visit 15 minutes Cecilia Campos Work Phone: [facility] Comment on above: Tachycardia Start: 11-07-2019 End: 11-07-2019 Office outpatient visit 25 minutes Angelina Lopez Work Phone: [facility] Comment on above: Mild intermittent as thma without complication (Primary Dx); Lung nodules Start: 11-01-2019 Patient encounter procedure Constance Bull [facility] Work Phone: Start: 10-30-2019 End: 10-30-2019 Clinical Support Elba Reyes Work Phone: [facility] Comment on above: Primary osteoarthrit is of right hip (Primary Dx); Primary osteoarthritis of left hip Start: 08-11-2019 End: 08-11-2019 Subsequent hospital visit by physician Cecilia Campos Work Phone: [facility] Comment on above: Arrived NOBLE (dyspnea on exer tion); Abnormal ECG Start: 08-09-2019 Patient encounter procedure CECILIA CAMPOS [facility] Start: 08-09-2019 End: 08-09-2019 Office outpatient new 45 minutes Angelina Lopez Work Phone: [facility] Comment on above: Tachycardia (Primary Dx); NOBLE (dyspnea on exertion); Abnormal ECG; Carotid stenosis, right Start: 07-31-2019 End: 07-31-2019 Clinical Support Elba Reyes Work Phone: [facility] Comment on above: Primary osteoarthrit is of both hips (Primary Dx) Start: 07-26-2019 End: 07-26-2019 Office outpatient visit 25 minutes Angelina Latricia Lopez Work Phone: [facility] Comment on above: NOBLE (dyspnea on exer tion) (Primary Dx); Lung nodules; Tachycardia; Asthma, unspecified asthma severity, unspecified whether complicated, unspecified whether persistent Start: 07-13-2019 End: 07-13-2019 Office outpatient visit 25 minutes Angelina Latricia Lopez Work Phone: [facility] Comment on above: Persistent cough (Pr imary Dx); SOB (shortness of breath); Asthma, unspecified asthma severity, unspecified whether complicated, unspecified whether persistent Start: 04-20-2019 End: 04-20-2019 Clinical Support Elba Reyes Work Phone: [facility] Comment on above: Primary osteoarthrit is of right hip (Primary Dx); Primary osteoarthritis of left hip Start: 01-16-2019 End: 01-16-2019 Clinical Support Elba Reyes Work Phone: [facility] Comment on above: Primary osteoarthrit is of right hip (Primary Dx); Primary osteoarthritis of left hip Start: 12-01-2018 End: 12-01-2018 Office outpatient new 30 minutes Elba Reyes Work Phone: [facility] Comment on above: Hand pain, left (Odette juliana Dx); 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 Start: 11-03-2018 End: 11-03-2018 Office outpatient new 45 minutes Elba Reyes Work Phone: [facility] Comment on above: Trochanteric bursiti s of both hips (Primary Dx); Primary osteoarthritis of right hip Start: 08-16-2018 End: 08-17-2018 Patient encounter procedure Behzad Whitaker Facility:[facility] Start: 08-16-2018 Patient encounter procedure Facility:[id number] Start: 07-27-2018 End: 07-28-2018 Patient encounter procedure Behzad Whitaker Facility:[facility] [place] Start: 02-08-2018 End: 02-09-2018 Ambulatory [facility] Work Phone: [facility] Start: 12-27-2017 End: 12-27-2017 Office/outpatient visit, est, level 3 Angelina Lopez Work Phone: [facility] Start: 11-22-2017 Ambulatory Angelina Lopez Facilit y:[place] Start: 09-20-2017 Office/outpatient vi sit, new, level 2 Yair Olvera Work Phone: [facility] Start: 05-24-2017 Ambulatory Angelina Lopez Facilit y:[place] Start: 05-24-2017 End: 05-24-2017 Ambulatory Angelina Lopez Work Phone: [facility] Procedures Date Procedure Procedure Detail Performing Clinician Start: 01-24-2025 CARDIAC REMOTE DEVICE CHECK Radha Hubbard DO Work Phone: Start: 10-25-2024 CARDIAC REMOTE DEVICE CHECK Radha Hubbard DO Work Phone: Start: 07-26-2024 CARDIAC REMOTE DEVICE CHECK Radha Hubbard DO Work Phone: Start: 04-26-2024 CARDIAC REMOTE DEVICE CHECK Radha Hubbard DO Work Phone: Start: 02-17-2024 Urinalysis YASSER OMR AN Comment on above: Result Comment: URIN ALYSIS Performed By: #### [id number] #### [facility],[address] [place] [address] Start: 01-28-2024 Urinalysis YASSER OMR AN Comment on above: Result Comment: URIN ALYSIS Performed By: #### [id number] #### [place] [address] Start: 01-13-2024 Urinalysis YASSER OMR AN Comment on above: Result Comment: URIN ALYSIS Performed By: #### [id number] #### [facility],[address] [place] [address] Start: 12-30-2023 Urinalysis SHAHNAZ ZULEMA AN Comment on above: Result Comment: URIN ALYSIS Performed By: #### [id number] #### [facility],[address] [place] [address] Start: 12-17-2023 Basic metabolic pane l calcium total Leila Banuelos MD Work Phone: Start: 12-17-2023 End: 12-17-2023 Glucose measurement Leila Banuelos MD Work Phone: Start: 12-17-2023 Glucose measurement Felicity Banuelos MD Work Phone: Start: 12-16-2023 Glucose measurement Felicity Banuelos MD Work Phone: Start: 12-16-2023 Glucose measurement Felicity Banuelos MD Work Phone: Start: 12-16-2023 Glucose measurement Manuela Baker MD Work Phone: Start: 12-15-2023 Glucose measurement Manuela Baker MD Work Phone: Start: 12-15-2023 Glucose measurement Manuela Baker MD Work Phone: Start: 12-15-2023 Glucose measurement Manuela Baker MD Work Phone: Start: 12-15-2023 Glucose measurement Manuela Baker MD Work Phone: Start: 12-15-2023 Glucose measurement Manuela Baker MD Work Phone: Start: 12-15-2023 Basic metabolic pane l calcium total Leila Banuelos MD Work Phone: Start: 12-14-2023 Glucose measurement Manuela Baker MD Work Phone: Start: 12-14-2023 Glucose measurement Manuela Baker MD Work Phone: Start: 12-14-2023 Glucose measurement Manuela Baker MD Work Phone: Start: 12-14-2023 Glucose measurement Manuela Baker MD Work Phone: Start: 12-14-2023 End: 12-14-2023 Mri brain brain stem w/o w/contrast material Calvin Baker MD Work Phone: Start: 12-14-2023 Culture bacterial quanttative colony count urine Calvin Baker MD Work Phone: Start: 12-14-2023 Glucose measurement Manuela Baker MD Work Phone: Start: 12-14-2023 Basic metabolic pane l calcium total Leila Banuelos MD Work Phone: Start: 12-13-2023 Glucose measurement Manuela Baker MD Work Phone: Start: 12-13-2023 Glucose measurement Manuela Baker MD Work Phone: Start: 12-13-2023 Glucose measurement Manuela Baker MD Work Phone: Start: 12-13-2023 Glucose measurement Manuela Baker MD Work Phone: Start: 12-13-2023 Glucose measurement Manuela Baker MD Work Phone: Start: 12-12-2023 Glucose measurement Manuela Baker MD Work Phone: Start: 12-12-2023 Glucose measurement Manuela Baker MD Work Phone: Start: 12-12-2023 Glucose measurement Manuela Baker MD Work Phone: Start: 12-12-2023 Glucose measurement Manuela Baker MD Work Phone: Start: 12-11-2023 Potassium serum plas ma/whole blood Mahamed Grissom DO Work Phone: Start: 12-11-2023 Glucose measurement Manuela Baker MD Work Phone: Start: 12-11-2023 Glucose measurement Manuela Baker MD Work Phone: Start: 12-11-2023 Glucose measurement Manuela Baker MD Work Phone: Start: 12-11-2023 Glucose measurement Manuela Baker MD Work Phone: Start: 12-11-2023 End: 12-11-2023 Comprehensive metabolic panel Calvin Baker MD Work Phone: Start: 12-10-2023 Glucose measurement Manuela Baker MD Work Phone: Start: 12-10-2023 Electrocardiogram Gener ic [facility] Start: 12-10-2023 Assay of lactate Urbano Reis MD Work Phone: Start: 12-10-2023 Culture bacterial bl ood aerobic w/id isolates Urbano Reis MD Work Phone: Start: 12-10-2023 Radiologic exam ches t single view Urbano Reis MD Work Phone: Start: 12-10-2023 Ct head/brain w/o co ntrast material Urbano Reis MD Work Phone: Start: 12-10-2023 Urnls dip stick/tabl et reagent auto microscopy Urbano Reis MD Work Phone: Start: 12-10-2023 Ecg routine ecg w/le ast 12 lds w/i&r Urbano Reis MD Work Phone: Start: 12-10-2023 Comprehensive metabo lic panel Urbano Reis MD Work Phone: Start: 12-10-2023 LAVENDER TOP Urbano sorenson MD Work Phone: Start: 12-10-2023 LIGHT BLUE TOP Urbano hwang MD Work Phone: Start: 12-10-2023 CHARLENE hwang MD Work Phone: Start: 12-10-2023 RAINBOW DRAW Urbano sorenson MD Work Phone: Start: 11-22-2023 Urinalysis YASSER OMR AN Comment on above: Result Comment: URIN ALYSIS Performed By: #### [id number] #### [facility],[address] [place] [address] Start: 11-18-2023 Urinalysis YASSER OMR AN Comment on above: Result Comment: URIN ALYSIS Performed By: #### [id number] #### [facility],[address] [place] [address] Start: 11-07-2023 Urinalysis YASSER OMR AN Comment on above: Result Comment: URIN ALYSIS Performed By: #### [id number] #### [place] [address] Start: 10-02-2023 Adult depression scr eening assessment Sinai Yanceye MAGNETIC PROSPECTING OPERATOR Work Phone: Start: 07-05-2023 Follow-up visit Follow-up SONALI LYNN Start: 07-05-2023 Mammography Yair LOPEZ-C Work Phone: Start: 07-05-2023 Microalbumin [Mass/v olume] in Urine by Test strip Poornima Fernandez MAGNETIC PROSPECTING OPERATOR Work Phone: Start: 06-29-2023 MRI of lumbar spine Dr. Olivier Acosta Work Phone: Start: 06-29-2023 MRI of thoracic spine Suzy Acosta Work Phone: Start: 05-04-2023 Arthrocentesis aspir &/inj major jt/bursa w/o us Eliecer Hill MAGNETIC PROSPECTING OPERATOR Work Phone: Start: 10-08-2022 Computed tomography of thoracic spine without contrast Dr. Olivier Acosta Work Phone: Start: 10-08-2022 CT cervical spine wi thout contrast Dr. Olivier Acosta Work Phone: Start: 10-08-2022 CT of head without contrast Dr. Olivier Acosta Work Phone: Start: 10-08-2022 CT of lumbar spine Dr. Olivier Acosta Work Phone: Start: 09-30-2022 MRI of lumbar spine Dr. Olivier Acosta Work Phone: Start: 09-25-2022 Computed tomography of abdomen and pelvis with contrast Dr. Olivier Acosta Work Phone: Start: 09-21-2022 End: 09-21-[address] Olivier Acosta Work Phone: Start: 09-20-2022 Plain X-ray abdomen Dr. Olivier Acosta Work Phone: Start: 09-18-2022 End: 09-18-2022 Plain X-ray abdomen Dr. Olivier Acosta Work Phone: Start: 09-18-2022 Computed tomography of abdomen and pelvis with contrast Dr. Olivier Acosta Work Phone: Start: 09-13-2022 Plain X-ray abdomen Dr. Olivier Acsota Work Phone: Start: 09-12-2022 Computed tomography of abdomen and pelvis with intravenous contrast Dr. Olivier Acosta Work Phone: Start: 08-31-2022 CT of abdomen and pe lvis without contrast Dr. Olivier Acosta Work Phone: Start: 07-14-2022 CATIE SCREENING W RUMA Cc f Provider Start: 07-14-2022 Mammography Mammograph y Coordinator Start: 07-02-2022 US urinary tract Start: 05-25-2022 Arthrocentesis aspir &/inj major jt/bursa w/o us Eliecer Hill CNP Work Phone: Start: 05-09-2022 Glucose measurement Ton y Pathadan DO Work Phone: Start: 05-09-2022 Glucose measurement Ton y Pathadan DO Work Phone: Start: 05-09-2022 Radiologic exam ches t 2 views Radha Hubbard DO Work Phone: Start: 05-08-2022 Glucose measurement Ton y Pathadan DO Work Phone: Start: 05-08-2022 Glucose measurement Ton y Pathadan DO Work Phone: Start: 05-08-2022 Glucose measurement Ton y Pathadan DO Work Phone: Start: 05-08-2022 Radiologic exam ches t single view Radha Hubbard DO Work Phone: Start: 05-08-2022 Glucose measurement Ton y Pathadan DO Work Phone: Start: 05-08-2022 EP STUDY Kelton Beckford MD Work Phone: Start: 05-08-2022 Glucose measurement Ton y Pathadan DO Work Phone: Start: 05-08-2022 2D TTE w or w/o fol w/con,fu Kelton Beckford MD Work Phone: Start: 05-08-2022 Basic metabolic pane l calcium total Paresh Pathadan DO Work Phone: Start: 05-08-2022 Electrocardiogram Provi viv Not In System Start: 05-07-2022 Glucose measurement Ton y Pathadan DO Work Phone: Start: 05-07-2022 Assay of troponin quantitative Gabriela Villafana MAGNETIC PROSPECTING OPERATOR Work Phone: Start: 05-07-2022 DEAN TOP Triage Pro tocol Emergency MD Start: 05-07-2022 LIGHT BLUE TOP Triage P rotocol Emergency Start: 05-07-2022 LIGHT GREEN TOP Triage Protocol Emergency MD Start: 05-07-2022 PINK TOP Triage Pro [facility] Emergency Start: 05-07-2022 RAINBOW DRAW Triage Pro [facility] Emergency Start: 05-07-2022 Blood count complete auto&auto difrntl wbc Gabriela Villafana [facility] Work Phone: Start: 05-07-2022 Radiologic exam ches t single view Gabriela Villafana [facility] Work Phone: Start: 05-07-2022 Ecg routine ecg w/le ast 12 lds trcg only w/o i&r Bobby Tan MD Work Phone: Start: 04-08-2022 Ophthalmic examinati on and evaluation Radha Hubbard DO Work Phone: Start: 02-17-2022 Ophthalmic examinati on and evaluation Radha Hubbard Work Phone: Start: 02-12-2022 Arthrocentesis aspir &/inj major jt/bursa w/o us Eliecer Hill [facility] Work Phone: Start: 02-10-2022 Investigation of tra nsfusion reaction Start: 01-08-2022 Arthrocentesis aspir &/inj major jt/bursa w/o us Eliecer Hill [facility] Work Phone: Start: 11-20-2021 Ecg routine ecg w/le ast 12 lds w/i&r Lenard Das MD Work Phone: Start: 10-22-2021 Ophthalmic examinati on and evaluation Lenard Das MD Work Phone: Start: 10-14-2021 Ecg routine ecg w/le ast 12 lds w/i&r Lenard Das MD Work Phone: Start: 09-15-2021 Arthrocentesis aspir &/inj major jt/bursa w/o us Eliecer Hill CNP Work Phone: Start: 09-15-2021 Arthrocentesis aspir &/inj major jt/bursa w/o us Eliecer Hill CNP Work Phone: Start: 08-21-2021 Arthrocentesis aspir &/inj major jt/bursa w/o us Eliecermavis Hill CNP Work Phone: Start: 07-02-2021 Microalbumin [Mass/v olume] in Urine by Test strip Latricia Wilson MD Work Phone: Start: 05-14-2021 Mammography Latricia Bermudez Work Phone: Start: 05-05-2021 Arthrocentesis aspir &/inj major jt/bursa w/o us Eliecer Hill CNP Work Phone: Start: 04-24-2021 Mammography Eliecer dahl MAGNETIC PROSPECTING OPERATOR Work Phone: Start: 04-15-2021 Mammography Ronda weiss MD Work Phone: Start: 02-13-2021 Ecg routine ecg w/le ast 12 lds w/i&r Lenard Das MD Work Phone: Start: 01-20-2021 OUTPATIENT DEVICE CL INIC REFERRAL [facility] Start: 01-08-2021 Arthrocentesis aspir &/inj major jt/bursa w/o us Eliecer Hill CNP Work Phone: Start: 01-06-2021 Radex hand 2 views Latricia Wilson MD Work Phone: Start: 12-20-2020 EP STUDY Lenard Das MD Work Phone: Start: 08-21-2020 Ophthalmic examinati on and evaluation Allegra Díaz PA-C Work Phone: Start: 08-10-2020 Arthrocentesis Eliecer Hill Work Phone: Start: 07-22-2020 CT of chest without contrast Angelina Lopez Work Phone: Start: 06-07-2020 12 lead ECG Cecilia Campos Work Phone: Start: 02-19-2020 Arthrocentesis Elba Ka y Fanello Work Phone: Start: 10-30-2019 Arthrocentesis Elba Ka y Fanello Work Phone: Start: 08-11-2019 Myocardial spect sin gle study at rest or stress Cecilia Campos Work Phone: Start: 08-09-2019 12 lead ECG Cecilia Campos Work Phone: Start: 07-31-2019 Arthrocentesis Elba Ka y Fanello Work Phone: Start: 04-20-2019 End: 04-20-2019 Arthrocentesis Elba Kristy Fanello Work Phone: Start: 01-16-2019 Arthrocentesis Elba Ka y Fanello Work Phone: Start: 11-03-2018 End: 11-03-2018 Arthrocentesis Elba Kristy Fanello Work Phone: Start: 02-09-2018 End: 02-09-2018 Tte w/doppler, complete Rizwana Esqueda Work Phone: Start: 02-08-2018 Adult depression scr eening assessment Latricia Wilson MD Work Phone: Start: 02-21-2013 Colonoscopy Cecilia louis History of No histor y of surgery Constance Bull No history of surgery Tamia Estrada Work Phone: Urine culture Dr. Olivier campbell Work Phone: Urine culture Dr. Olivier campbell Work Phone: Urine culture Dr. Olivier campbell Work Phone: Viral antigen assay Dr. Justin Acosta Work Phone: Plan of Treatment Date Care Activity Detail Author Start: 09-21-2032 Screening for malign ant neoplasm of colon [facility] Start: 08-05-2026 Pneumococcal Vaccine : Age 50+ (3 of 3 - PCV20 or PCV21) Pneumococcal Vaccine: Age 50+ (3 of 3 - PCV20 or PCV21) [facility] Start: 08-07-2025 End: 08-07-2025 ambulatory 08/07/2025 12:30 PM EST Device Check OP [facility] [address] [place] [address] [facility] Start: 05-07-2025 Influenza vaccination Influenz a Vaccine (Season Ended) [facility] Start: 12-16-2024 eGFR Diabetes eGFR Diabetes [facility] Start: 12-16-2024 Urine screening for protein eGFR Diabetes [facility] Start: 10-02-2024 Depression screening using PHQ-9 (Patient Health Questionnaire 9) score [facility] Start: 08-15-2024 End: 08-15-2024 ambulatory 08/15/2024 11:00 AM EST Device Check OP [facility] [address] [place] [address] [facility] Start: 08-15-2024 End: 08-15-2024 Patient encounter procedure [facility] Start: 07-05-2024 Screening for malign ant neoplasm of breast Mammogram [facility] Start: 07-05-2024 Urine screening for protein Urine Microalbumin [facility] Start: 05-12-2024 Glaucoma screening Diabetic Eye Exam [facility] Start: 05-07-2024 COVID-19 Vaccine ( season) COVID-19 Vaccine ( season) [facility] Start: 05-07-2024 COVID-19 Vaccine ( season) COVID-19 Vaccine ( season) [facility] Start: 05-07-2024 Influenza vaccination Influenza Vacc ine (#1) [facility] Start: 01-26-2024 End: 01-26-2024 Patient encounter procedure 01/26/2024 7:00 AM EDT Appointment [facility] [address] [place] [address] [facility] Start: 01-05-2024 End: 01-05-2024 Patient encounter procedure 01/05/2024 9:30 AM EDT Office Visit [facility] [address] [place] [phone] Yair Aparicio PA-C [address] [address] [facility] Start: 12-30-2023 Hemoglobin A1c measurement A1C [facility] Start: 10-18-2023 Procedure [facility] Start: 10-18-2023 End: 10-18-2023 Patient encounter procedure 10/18/2023 8:30 AM EST Appointment [facility] [address] [place] [phone] [facility] Start: 10-15-2023 End: 10-01-2024 XR Lumbar spine 2 or 3 Views XR Lumbar Spine 2-3 Views (Standard) Imaging Routine Closed wedge fracture of lumbar vertebra with delayed healing, unspecified lumbar vertebral level, subsequent encounter Expected: 10/15/2023, Expires: 10/01/2024 [facility] Comment on above: Expected: 10/15/2023 , Expires: 10/01/2024 Start: 10-15-2023 End: 10-01-2024 XR Thoracic spine 3 Views XR Thoracic Spine 3 Views (Standard) Imaging Routine Closed wedge fracture of thoracic vertebra with routine healing, unspecified thoracic vertebral level, subsequent encounter Expected: 10/15/2023, Expires: 10/01/2024 [facility] Work Phone: Comment on above: Expected: 10/15/2023 , Expires: 10/01/2024 Start: 10-05-2023 Hemoglobin A1c measurement A1C [facility] Start: 09-28-2023 End: 09-28-2023 Follow-up encounter 09/28/2023 9:00 AM EST Follow-Up [facility] [address] [place] [phone] Poornima Fernandez, MAGNETIC PROSPECTING OPERATOR [address] [address] [facility] Start: 08-25-2023 End: 08-25-2023 Patient encounter procedure [facility] Start: 08-17-2023 End: 08-17-2023 Follow-up encounter 08/17/2023 11:00 AM EST Follow-Up [facility] [address] [facility] [place] [address] Brooklyn Lynn MD [address] Amar[address] [facility] [address] [place] [address] [facility] Start: 08-16-2023 End: 08-16-2023 Follow-up encounter 08/16/2023 11:00 AM EST Follow-Up [facility] 335 [facility] [place] [address] Brooklyn Lynn MD [address] [address] [facility] Start: 08-12-2023 End: 08-12-2023 Patient encounter procedure [facility] Start: 08-10-2023 End: 08-10-2024 SPECT Heart perfusion NM Myocardial Perfusion Multiple SPECT Imaging Routine Bradycardia Syncope, unspecified syncope type Abnormal ECG Expected: 08/10/2023 (Approximate), Expires: 08/10/2024 [facility] Work Phone: Comment on above: Expected: 08/10/2023 (Approximate), Expires: 08/10/2024 Start: 08-10-2023 End: 08-10-2023 Patient encounter procedure [facility] Start: 08-05-2023 End: 08-05-2023 Patient encounter procedure 08/05/2023 8:15 AM EST Office Visit [facility] [address] [id number] Eliecer Hill, MAGNETIC PROSPECTING OPERATOR [address] [place] [address] [facility] Start: 07-14-2023 Mammography [facility] Start: 07-14-2023 Screening for malign ant neoplasm of breast Mammogram [facility] Start: 07-14-2023 End: 07-14-2023 Patient encounter procedure 07/14/2023 12:00 PM EST Appointment [facility] [address] [place] [phone] [facility] Start: 07-05-2023 End: 07-05-2023 Patient encounter procedure 07/05/2023 1:30 PM EDT Office Visit [facility] 335 [facility] [place] [address] Brooklyn Lynn MD [address] [address] [facility] Start: 06-25-2023 End: 06-25-2023 Patient encounter procedure [facility] Start: 05-29-2023 End: 05-29-2024 MRI of lumbar spine without contrast MR Lumbar Spine Without Contrast Imaging Routine Back pain, unspecified back location, unspecified back pain laterality, unspecified chronicity Expected: 05/29/2023, Expires: 05/29/2024 [facility] Comment on above: Expected: 05/29/2023 , Expires: 05/29/2024 Start: 05-29-2023 End: 05-29-2024 MRI of thoracic spine without contrast MR Thoracic Spine Without Contrast Imaging Routine Acute thoracic back pain, unspecified back pain laterality Expected: 05/29/2023, Expires: 05/29/2024 [facility] Comment on above: Expected: 05/29/2023 , Expires: 05/29/2024 Start: 05-28-2023 End: 07-28-2024 Ultrasound duplex venous leg left Ultrasound duplex venous leg left Vascular Ultrasound Routine Pain of left calf Expected: 05/28/2023, Expires: 07/28/2024 [facility] Work Phone: Comment on above: Expected: 05/28/2023 , Expires: 07/28/2024 Start: 05-28-2023 End: 05-28-2023 Patient encounter procedure 05/28/2023 1:00 PM EDT Office Visit [facility] [place] [address] Callie Ramirez MD [address] [place] [address] Kota Estrella MD [address] [address] [facility] Start: 05-07-2023 COVID-19 Vaccine (2022- season) COVID-19 Vaccine (2022- season) [facility] Start: 05-07-2023 Influenza vaccination [facility] Start: 05-07-2023 End: 05-07-2023 Patient encounter procedure 05/07/2023 Appointment Cardiology [facility] Start: 05-06-2023 History and physical examination, annual for health maintenance Wellness Visit [facility] Start: 05-06-2023 Medicare Wellness Visit Medicare Wel lness Visit [facility] Start: 04-08-2023 Glaucoma screening [facility] Start: 04-07-2023 End: 04-07-2023 Patient encounter procedure 04/07/2023 10:45 AM EDT Appointment [facility] [address] [place] [id number] [facility] Start: 04-06-2023 Hemoglobin A1c measurement A1C [facility] Start: 04-06-2023 Hemoglobin A1c/Hemoglobin.total in Blood HbA1C [facility] Start: 03-23-2023 End: 03-23-2023 Patient encounter procedure 03/23/2023 Office Visit Cardiology Callie Ramirez MD 335 [place] [address] [facility] Start: 02-21-2023 Colonoscopy COL[facility]OS[facility] Start: 02-21-2023 COLORECTAL CANCER SCREENING COLORECTAL CANCER SCREENING [facility] Start: 02-21-2023 Screening for malign ant neoplasm of colon [facility] Start: 02-17-2023 Glaucoma screening Ophthalmology Exa m [facility] Start: 11-23-2022 Hemoglobin A1c/Hemoglobin.total in Blood HBA1C [facility] Start: 10-22-2022 Ophthalmic examinati on and evaluation Ophthalmology Exam [facility] Start: 10-13-2022 End: 10-13-2022 Patient encounter procedure 10/13/2022 Appointment Cardiology [facility] Start: 10-12-2022 Patient discharge [facility] Start: 10-12-2022 [facility] Start: 10-09-2022 Admission procedure [facility] Start: 10-08-2022 Following clinical pathway protocol [facility] Start: 10-08-2022 Assessment of risk o f venous thromboembolism [facility] Start: 10-08-2022 Cardiac monitoring [facility] Start: 10-08-2022 Care regimes management [facility] Start: 10-08-2022 Insertion of cathete r into peripheral vein [facility] Start: 10-08-2022 Measuring intake and output [facility] Start: 10-08-2022 Providing care accor ding to standard [facility] Start: 10-08-2022 Referral to occupati onal therapist [facility] Start: 10-08-2022 Referral to service [facility] Start: 10-08-2022 Consultation for pain [facility] Start: 10-08-2022 End: 10-08-2022 [facility] Start: 10-08-2022 Verification routine [facility] Start: 10-08-2022 Admission procedure [facility] Start: 10-08-2022 End: 10-09-2022 [facility] Start: 10-08-2022 Patient referral to dietitian [facility] Start: 09-22-2022 Patient discharge [facility] Start: 09-21-2022 [facility] Start: 09-19-2022 End: 09-20-2022 [facility] Start: 09-18-2022 Application of intermittent pneumatic compression device [facility] Start: 09-18-2022 Assessment of risk o f venous thromboembolism [facility] Start: 09-18-2022 Care regimes management [facility] Start: 09-18-2022 Incentive spirometry [facility] Start: 09-18-2022 Insertion of cathete r into peripheral vein [facility] Start: 09-18-2022 Measuring intake and output [facility] Start: 09-18-2022 Providing care accor ding to [facility] Start: 09-18-2022 Provision of activit y privileges [facility] Start: 09-18-2022 Referral to general surgeon [facility] Start: 09-18-2022 Referral to service [facility] Start: 09-18-2022 [facility] Start: 09-18-2022 Following clinical pathway protocol [facility] Start: 09-18-2022 Admission procedure [facility] Start: 09-18-2022 Inhalation therapy procedure [facility] Start: 09-14-2022 Patient discharge [facility] Start: 09-14-2022 Referral to occupati onal therapist [facility] Start: 09-14-2022 Referral to service [facility] Start: 09-13-2022 Application of intermittent pneumatic compression device [facility] Start: 09-13-2022 Assessment of risk o f venous thromboembolism [facility] Start: 09-13-2022 Insertion of cathete r into peripheral vein [facility] Start: 09-13-2022 Oxygen therapy [facility] Start: 09-13-2022 Providing care accor ding to [facility] Start: 09-13-2022 Provision of activit y privileges [facility] Start: 09-13-2022 Referral to general surgeon [facility] Start: 09-13-2022 End: 09-13-2022 [facility] Start: 09-13-2022 End: 09-13-2022 Care regimes management [facility] Start: 09-13-2022 Notification of physician [facility] Start: 09-12-2022 Following clinical pathway protocol [facility] Start: 09-12-2022 Admission procedure [facility] Start: 09-08-2022 Hemoglobin A1c measurement A1C [facility] Start: 09-08-2022 Hemoglobin A1c/Hemoglobin.total in Blood HBA1C [facility] Start: 09-06-2022 ADVANCE DIRECTIVE DISCUSSION ADVANCE DIRECTIVE DISCUSSION [facility] Start: 09-06-2022 DEPRESSION ASSESSMENT DEPRESSION ASS ESSMENT [facility] Start: 09-01-2022 Patient discharge [facility] Start: 08-31-2022 Following clinical pathway protocol [facility] Start: 08-31-2022 Assessment of risk o f venous thromboembolism [facility] Start: 08-31-2022 Care regimes management [facility] Start: 08-31-2022 Continuous positive airway pressure ventilation treatment [facility] Start: 08-31-2022 Fall prevention [facility] Start: 08-31-2022 Incentive spirometry [facility] Start: 08-31-2022 Inhalation therapy procedure [facility] Start: 08-31-2022 Insertion of cathete r into peripheral vein [facility] Start: 08-31-2022 Introduction of urin xiang catheter [facility] Start: 08-31-2022 Measuring intake and output [facility] Start: 08-31-2022 Oxygen therapy [facility] Start: 08-31-2022 Providing care accor ding to standard [facility] Start: 08-31-2022 Provision of activit y privileges [facility] Start: 08-31-2022 Referral to occupati onal therapist [facility] Start: 08-31-2022 Referral to service [facility] Start: 08-31-2022 [facility] Start: 08-31-2022 Verification routine [facility] Work Phone: Start: 08-31-2022 Admission procedure [facility] Start: 08-31-2022 [facility] Work Phone: Start: 08-20-2022 End: 08-20-2022 Patient encounter procedure 08/20/2022 Office Visit Cardiology Cecilia Campos MD [address] [place] [address] [facility] Start: 08-13-2022 End: 08-13-2022 Patient encounter procedure [facility] Start: 08-05-2022 Pneumococcal Vaccine : 65+ (3 - PPSV23 or PCV20) Pneumococcal Vaccine: 65+ (3 - PPSV23 or PCV20) [facility] Start: 08-05-2022 Pneumococcal Vaccine : Age 65+ (3 - PPSV23 or PCV20) Pneumococcal Vaccine: Age 65+ (3 - PPSV23 or PCV20) [facility] Start: 08-05-2022 Pneumococcal Vaccine : Age 65+ (3 of 3 - PPSV23 or PCV20) Pneumococcal Vaccine: Age 65+ (3 of 3 - PPSV23 or PCV20) [facility] Start: 08-05-2022 Pneumococcal Vaccine : Age 65+ (4 - PPSV23 if available, else PCV20) Pneumococcal Vaccine: Age 65+ (4 - PPSV23 if available, else PCV20) [facility] Start: 08-05-2022 Pneumococcal Vaccine : Age 65+ (4 - PPSV23 or PCV20) Pneumococcal Vaccine: Age 65+ (4 - PPSV23 or PCV20) [facility] Start: 08-05-2022 Pneumococcal Vaccine : Age 65+ (4 of 4 - PPSV23) Pneumococcal Vaccine: Age 65+ (4 of 4 - PPSV23) [facility] Start: 07-07-2022 End: 07-07-2022 Patient encounter procedure 07/07/2022 Appointment Cardiology [facility] Start: 07-02-2022 Microalbumin measurement, urine, quantitative Urine Microalbumin [facility] Start: 07-02-2022 Urine screening for protein Urine Microalbumin [facility] Start: 06-17-2022 Hemoglobin A1c measurement A1C [facility] Start: 06-17-2022 Hemoglobin A1c/Hemoglobin.total in Blood HBA1C [facility] Start: 05-25-2022 End: 05-25-2022 Clinical Support 05/25/2022 Clinical Support Sports Medicine Eliecer Hill, [place] [address] [facility] Start: 05-14-2022 Screening for malign ant neoplasm of breast Mammogram [facility] Start: 05-07-2022 Influenza vaccination [facility] Start: 04-28-2022 End: 04-28-2022 Patient encounter procedure 04/28/2022 Office Visit Sports Medicine Eliecer Hill, FREDDIE [address] [place] [address] [facility] Start: 04-24-2022 Screening for malign ant neoplasm of breast Mammogram [facility] Start: 04-15-2022 Mammography MAMMOGRAM [facility] Start: 04-15-2022 End: 04-15-2022 Patient encounter procedure 04/15/2022 Appointment Cardiology Lenard Das MD 335 [place] [address] [facility] Start: 03-19-2022 End: 03-19-2022 Patient encounter procedure [facility] Start: 03-05-2022 End: 03-05-2022 Patient encounter procedure 03/05/2022 Office Visit Cardiology Lenard Das MD [address] [place] [address] [facility] Start: 02-24-2022 End: 02-24-2022 Patient encounter procedure 02/24/2022 Office Visit Cardiology Cecilia Campos MD 335 [place] [address] [facility] Start: 02-10-2022 Microbial culture, routine Wound Culture [facility] Work Phone: Start: 01-08-2022 End: 01-08-2022 Patient encounter procedure 01/08/2022 Appointment Cardiology Lenard Das MD 335 [place] [address] [facility] Start: 01-07-2022 End: 01-07-2022 Patient encounter procedure 01/07/2022 Office Visit Sports Eliecer Jennings, FREDDIE [address] [place] [address] [facility] Start: 01-06-2022 End: 01-06-2022 Clinical Support 01/06/2022 Clinical Support Cardiology [facility] Start: 12-23-2021 Hemoglobin A1c measurement A1C [facility] Start: 12-23-2021 End: 12-23-2021 Clinical Support 12/23/2021 Clinical Support Cardiology [facility] Start: 12-16-2021 End: 12-16-2021 Patient encounter procedure 12/16/2021 Office Visit Sports Medicine Eliecer Hill, MAGNETIC PROSPECTING OPERATOR [address] [place] [address] [facility] Start: 12-04-2021 End: 12-04-2021 Patient encounter procedure 12/04/2021 Appointment Cardiology Lenard Das MD [address] [place] [address] [facility] Start: 11-27-2021 End: 11-27-2021 Patient encounter procedure 11/27/2021 Office Visit Podiatry Kalee Oropeza, DIANELYS [address] [place] [address] [facility] Start: 11-21-2021 End: 11-21-2021 Patient encounter procedure 11/21/2021 Appointment Cardiology Lenard Das MD [address] [place] [address] [facility] Start: 11-20-2021 End: 11-20-2021 Patient encounter procedure 11/20/2021 Office Visit Cardiology Lenard Das MD [address] [place] [address] [facility] Start: 10-29-2021 End: 10-29-2021 Patient encounter procedure 10/29/2021 Appointment Cardiology Lenard Das MD 335 [place] [address] [facility] Start: 10-08-2021 End: 10-08-2021 Patient encounter procedure 10/08/2021 Office Visit Orthopedic Surgery Latricia Wilson MD [address] [place] [address] [facility] Start: 10-07-2021 COVID-19 Vaccine (2 - Pfizer series) COVID-19 Vaccine (2 - Pfizer series) [facility] Start: 10-02-2021 Hemoglobin A1c measurement A1C [facility] Start: 09-22-2021 End: 09-22-2021 Patient encounter procedure 09/22/2021 Appointment Cardiology Lenard Das MD [address] [place] [address] [facility] Start: 09-15-2021 End: 09-15-2021 Patient encounter procedure 09/15/2021 Office Visit Sports Medicine Eliecer Hill, MAGNETIC PROSPECTING OPERATOR [address] [place] [address] [facility] Start: 09-08-2021 End: 09-08-2021 Patient encounter procedure 09/08/2021 Office Visit Neurology Richard Braga MD [address] [address] [facility] Start: 09-06-2021 ADVANCE DIRECTIVE DISCUSSION ADVANCE DIRECTIVE DISCUSSION [facility] Start: 09-06-2021 DEPRESSION ASSESSMENT DEPRESSION ASS ESSMENT [facility] Start: 09-04-2021 End: 09-04-2021 Patient encounter procedure [facility] Start: 09-02-2021 COVID-19 Vaccine (2 - Pfizer 3-dose booster series) COVID-19 Vaccine (2 - Pfizer 3-dose booster series) [facility] Start: 09-02-2021 COVID-19 Vaccine (2 - Pfizer 3-dose series) COVID-19 Vaccine (2 - Pfizer 3-dose series) [facility] Start: 09-02-2021 COVID-19 Vaccine (2 - Pfizer series) COVID-19 Vaccine (2 - Pfizer series) [facility] Start: 08-21-2021 Ophthalmic examinati on and evaluation Ophthalmology Exam [facility] Start: 08-21-2021 End: 08-21-2021 Patient encounter procedure 08/21/2021 Office Visit Sports Medicine Eliecer Hill, MAGNETIC PROSPECTING OPERATOR [address] [place] [address] [facility] Start: 08-20-2021 End: 08-20-2021 Patient encounter procedure 08/20/2021 Appointment Cardiology Lenard Das MD [facility] [place] [address] [facility] Start: 08-06-2021 End: 08-06-2021 Patient encounter procedure 08/06/2021 Office Visit Sports Medicine Eliecer Hill, FREDDIE [address] [place] [address] [facility] Start: 08-05-2021 End: 08-05-2021 Patient encounter procedure 08/05/2021 Office Visit Pulmonology Eduardo Catsro MD [address] [place] [address] [facility] Start: 07-24-2021 End: 07-24-2021 Patient encounter procedure 07/24/2021 Appointment Radiology Eduardo Castro MD [address] [place] [address] [facility] Scan Start: 07-16-2021 End: 07-16-2021 Patient encounter procedure 07/16/2021 Appointment Cardiology Lenard Das MD 335 [place] [address] [facility] Start: 06-25-2021 End: 06-25-2021 Patient encounter procedure [facility] Start: 06-23-2021 End: 06-23-2021 Patient encounter procedure [facility] Start: 06-18-2021 End: 06-18-2021 Patient encounter procedure [facility] Start: 05-07-2021 Influenza vaccination [facility] Start: 05-06-2021 End: 05-06-2021 Patient encounter procedure 05/06/2021 Appointment Cardiology Lenard Das MD [address] [place] [address] [facility] Start: 03-31-2021 End: 03-31-2021 Patient encounter procedure 03/31/2021 Appointment Cardiology Lenard Das MD [address] [place] [address] [phone] [facility] Start: 03-12-2021 Pneumococcal vaccination PNEUM OCOCCAL VACCINE AGE 65+ (2 of 2 - PPSV23) [facility] Start: 03-12-2021 Pneumococcal Vaccine : Age 65+ (4 of 4 - PPSV23) Pneumococcal Vaccine: Age 65+ (4 of 4 - PPSV23) [facility] Start: 02-24-2021 End: 02-24-2021 Patient encounter procedure 02/24/2021 Appointment Cardiology Steffany Fowler MD [address] [place] [address] [phone] [facility] Start: 02-13-2021 End: 02-13-2021 Office Visit 02/13/2021 Office Visit Cardiology Cecilia Campos MD 335 [facility] [place] [address] [phone] Lenard Das MD [address] [place] [address] [phone] [facility] Start: 02-11-2021 End: 02-11-2021 Office Visit 02/11/2021 Office Visit Neurology Cecilia Campos MD [address] [place] [address] [phone] Richard Braga MD [address] [address] [phone] [facility] Start: 01-20-2021 End: 01-20-2021 Patient encounter procedure 01/20/2021 Appointment Cardiology Steffany Fowler MD [address] [place] [address] [phone] [facility] Start: 01-15-2021 End: 01-15-2021 Office Visit 01/15/2021 Office Visit Orthopedic Surgery Latricia Wilson MD [address] [place] [address] [phone] [facility] Start: 01-07-2021 End: 01-07-2021 Patient encounter procedure 01/07/2021 Office Visit Sports Medicine Eliecer Hill, [facility] [address] [place] [address] [phone] [facility] Start: 01-06-2021 End: 01-06-2021 Office Visit 01/06/2021 Office Visit Orthopedic Surgery Latricia Wilson MD [address] [place] [address] [phone] [facility] Start: 12-26-2020 End: 12-26-2020 Clinical Support 12/26/2020 Clinical Support Cardiology [facility] Start: 12-04-2020 End: 12-04-2020 Office Visit 12/04/2020 Office Visit Cardiology Cecilia Campos MD [address] [place] [address] [phone] [facility] Start: 11-14-2020 End: 11-14-2020 Office Visit 11/14/2020 Office Visit Sports Medicine Eliecer Hill CNP [address] [place] [address] [phone] [facility] Start: 10-31-2020 End: 09-30-2021 Polysomnography 4 or more parameters with CPAP Polysomnography 4 or more parameters with CPAP Sleep Center Routine YVONNE (obstructive sleep apnea) Expected: 10/31/2020, Expires: 09/30/2021 [facility] Comment on above: Expected: 10/31/2020 , Expires: 09/30/2021 Start: 10-17-2020 End: 10-17-2020 Office Visit 10/17/2020 Office Visit Sports Medicine Eliecer Hill CNP [address] [place] [address] [phone] [facility] Start: 10-11-2020 End: 10-11-2020 Office Visit 10/11/2020 Office Visit Neurology Richard Braga MD [address] [address] [phone] [facility] Neu[facility] Start: 10-01-2020 End: 10-01-2020 Office Visit 10/01/2020 Office Visit Eliecer Shankar CNP [address] [place] [address] [phone] [facility] Start: 08-07-2020 End: 08-07-2020 Clinical Support 08/07/2020 Clinical Support Sports Eliecer Jennings CNP [address] [place] [address] [phone] [facility] Start: 07-22-2020 End: 11-06-2020 CT of chest without contrast CT Chest Without Contrast Imaging Routine Lung nodules Expected: 07/22/2020, Expires: 11/06/2020 [facility] Comment on above: Expected: 07/22/2020 , Expires: 11/06/2020 Start: 07-22-2020 End: 07-22-2020 Appointment 07/22/2020 Appointment Radiology Angelina Lopez MD [address] [place] [address] [phone] [facility] CT Scan Start: 07-19-2020 End: 07-26-2020 CT of chest without contrast CT Chest Without Contrast Imaging Routine Lung nodules Expected: 07/19/2020, Expires: 07/26/2020 [facility] Comment on above: Expected: 07/19/2020 , Expires: 07/26/2020 Start: 06-20-2020 End: 06-20-2020 Appointment 06/20/2020 Appointment Cardiology Cecilia Campos MD [address] [place] [address] [phone] [facility] Start: 06-07-2020 End: 06-07-2020 Office Visit 06/07/2020 Office Visit Cardiology Cecilia Campos MD [address] [place] [address] [phone] [facility] Start: 06-03-2020 End: 06-03-2020 Office Visit [facility] Start: 05-09-2020 End: 05-09-2020 Office Visit [facility] Start: 05-07-2020 Influenza vaccination Sequenti al Influenza Vaccine (#1) [facility] Start: 05-07-2020 Influenza vaccinatio n given [facility] Start: 02-19-2020 End: 02-19-2020 Clinical Support 02/19/2020 Clinical Support Sports Medicine Elba Reyes CNP [address] [place] [address] [phone] [facility] Start: 02-13-2020 End: 02-13-2020 Office Visit 02/13/2020 Office Visit Cardiology Cecilia Campos MD [address] [facility] [place] [address] [phone] [facility] Start: 11-13-2019 End: 11-13-2019 Office Visit 11/13/2019 Office Visit Cardiology Cecilia Campos MD [address] [facility] [place] [address] [phone] [facility] Start: 11-07-2019 End: 11-07-2019 Office Visit 11/07/2019 Office Visit Pulmonology Angelina Lopez MD [address] [place] [address] [phone] [facility] Start: 11-01-2019 End: 11-01-2019 Office Visit 11/01/2019 Office Visit Pulmonology Angelina Lopez MD [address] [place] [address] [phone] [facility] Start: 10-30-2019 End: 10-30-2019 Clinical Support 10/30/2019 Clinical Support Sports Medicine Elba Reyes, MAGNETIC PROSPECTING OPERATOR [address] [facility] [place] [address] [phone] [facility] Start: 08-11-2019 End: 08-11-2019 Hospital Encounter [facility] Start: 08-09-2019 End: 08-09-2019 Office Visit 08/09/2019 Office Visit Cardiology Angelina Lopez MD [address] [place] [address] [phone] Cecilia Campos MD [address] [facility] [place] [address] [phone] [facility] Start: 07-31-2019 End: 07-31-2019 Clinical Support 07/31/2019 Clinical Support Elba Adorno CNP [address] [place] [address] [phone] [facility] Start: 07-26-2019 End: 07-26-2019 Office Visit 07/26/2019 Office Visit Pulmonology Angelina Lopez MD [address] [place] [address] [phone] [facility] Start: 07-19-2019 End: 07-19-2019 Appointment 07/19/2019 Appointment Radiology Angelina Lopez MD [address] [place] [address] [phone] [facility] CT Scan Start: 05-07-2019 Influenza vaccinatio n given [facility] Start: 04-20-2019 End: 04-20-2019 Clinical Support 04/20/2019 Clinical Support Elba Adorno CNP [address] [place] [address] [phone] [facility] Start: 02-08-2019 Depression screening using PHQ-9 (Patient Health Questionnaire 9) score Depression Screening (PHQ-2/9) [facility] Start: 01-16-2019 End: 01-16-2019 Clinical Support 01/16/2019 Clinical Support Elba Adorno CNP [address] [place] [address] [phone] [facility] Start: 11-10-2018 End: 11-10-2018 Office Visit 11/10/2018 Office Visit Elba Adorno CNP [address] [place] [address] [phone] [facility] Start: 05-07-2018 Influenza vaccination SEQUENTI AL INFLUENZA VACCINE (Season Ended) [facility] Start: 05-07-2018 Influenza vaccinatio n given SEQUENTIAL INFLUENZA VACCINE (#1) [facility] Start: 05-03-2018 End: 05-03-2018 Ambulatory [facility] Start: 11-22-2017 Ambulatory 11/22/2017 Hos pitAngelina Juan MD [address] [place] [address] [address] [place] [address] [phone] [facility] Start: 05-07-2017 Influenza vaccination SEQUENTI AL INFLUENZA VACCINE (#1) [facility] Work Phone: Start: 2017 Fall risk assessment [facility] Start: 2017 Pneumococcal vaccination PNEUM OCOCCAL VACCINE AGE 65+ (1 of 2 - PCV13) [facility] Work Phone: Start: 01-20-2017 Tetanus vaccination [facility] Start: 01-20-2017 Urine microalbumin profile DTaP,Tdap,Td Vaccine (2 - Td or Tdap) [facility] Start: 11-03-2013 Hepatitis B surface antibody level LDL CHOLESTEROL [facility] Start: 10-05-2013 Hepatitis C antibody , confirmatory test DILATED RETINAL EXAM [facility] Start: 2012 Hepatitis B Vaccine (1 of 3 - Risk 3-dose series) Hepatitis B Vaccine (1 of 3 - Risk 3-dose series) [facility] Start: 2012 Respiratory Syncytia l Virus Immunization: Risk, 60-74 Risk, or 75+ (1 - Risk 60-74 years 1-dose series) Respiratory Syncytial Virus Immunization: Risk, 60-74 Risk, or 75+ (1 - Risk 60-74 years 1-dose series) [facility] Start: 2012 RSV Vaccine (1 - 1-d ose 60+ series) RSV Vaccine (1 - 1-dose 60+ series) [facility] Start: 2012 Zoster vacc, sc ZOSTER VACCINE [facility] Work Phone: Start: 2002 Administration of he rpes zoster vaccine ZOSTER VACCINES (1 of 2) [facility] Start: 2002 Screening for malign ant neoplasm of colon [facility] Start: 2002 SHINGRIX VACCINE (1 of 2) SHINGRIX VACCINE (1 of 2) [facility] Start: 1997 COLOGUARD (FIT-DNA) COLOGUARD (FIT-D NA) [facility] Start: [address] [facility] Start: 1997 FECAL OCCULT BLOOD FECAL OCCULT BLOO D [facility] Start: 1997 SIGMOIDOSCOPY SIGMOIDOSCOPY [facility] Start: 1992 Screening mammography [facility] Start: 1971 Administration of he rpes zoster vaccine Zoster Vaccines (1 of 2) [facility] Start: 1971 Urine microalbumin profile DTAP,TDAP,TD (1 - Tdap) [facility] Start: 1970 ANNUAL PCP TEAM 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 MITESH DISEASE VISIT ANNUAL PCP TEAM CHRONIC DISEASE VISIT [facility] Start: 1970 Hepatitis C antibody , confirmatory test Hepatitis C Screening [facility] Start: 1970 Hepatitis C screening Hepatitis C Sc reening [facility] Start: 1970 HEPATITIS C SCREENING HEPATITIS C SC REENING [facility] Start: 1970 SPIROMETRY SPIROMETRY [facility] Start: 1968 COVID-19 Vaccine (1 of 2) COVID-19 Vaccine (1 of 2) [facility] Start: 1968 COVID-19 Vaccine (1) COVID-19 Vaccin e (1) [facility] Start: 1964 Adolescent depressio n screening assessment [facility] Start: 1964 COVID-19 Vaccine (1) COVID-19 Vaccin e (1) [facility] Start: 1964 Depression screening using PHQ-9 (Patient Health Questionnaire 9) score Depression Screening (PHQ9) [facility] Start: 1962 3 comp foot exam completed DIABETIC FOOT EXAM [facility] Start: 1962 Diabetic foot examination [facility] Start: 1962 Hepatitis B screening URINE ALBUMIN:CREATININE RATIO [facility] Start: 1962 Microalbumin measurement, urine, quantitative Urine Microalbumin [facility] Start: 1962 Urine screening for protein Urine (micro)albumin/creatini ne ratio - Diabetes [facility] Start: 1958 PNEUMOCOCCAL: 65+ (1 - PCV) PNEUMOCOCCAL: 65+ (1 - PCV) [facility] Start: 1955 History and physical examination, annual for health maintenance Wellness Visit [facility] Start: 1952 Depression screening using PHQ-9 (Patient Health Questionnaire 9) score DEPRESSION SCREENING (PHQ9) [facility] Start: 1952 Fall risk assessment Falls Risk Asse ssment [facility] Start: 1952 Hepatitis C antibody , confirmatory test HEPATITIS C SCREENING [facility] Start: 1952 Protein mass conc [facility] Start: 1952 Screening for malign ant neoplasm of colon [facility] Start: 1952 Screening mammography Mammogram [facility] Start: 1952 HEPATITIS C SCREENING HEPATITIS C SC REENING [facility] Work Phone: Start: 1952 Screening colonoscopy COLONOSCOPY [facility] Work Phone: Start: 1952 End: 1952 Screening for osteoporosis DEXA SCAN [facility] Start: 1952 Tetanus vaccination TETANUS EVERY 10 YR [facility] Work Phone: End: 12-20-2020 12 lead ECG [facility] Comment on above: Once for 1 Occurrenc es starting 12/20/2020 until 12/20/2020 End: 02-11-2022 12 lead ECG ECG 12 Lead ECG Routine Syncope, unspecified syncope type 15 Occurrences starting 02/10/2021 until 02/11/2022 [facility] Comment on above: 15 Occurrences start ing 02/10/2021 until 02/11/2022 End: 08-08-2025 12 lead ECG ECG 12 Lead ECG Routine Abnormal ECG 3 Occurrences starting 08/08/2024 until 08/08/2025 [facility] Work Phone: Comment on above: 3 Occurrences starti ng 08/08/2024 until 08/08/2025 End: 08-07-2021 24 Hour ECG Holter monitor - 24 hour Cardiac Services Routine Tachycardia 1 Occurrences starting 06/07/2020 until 08/07/2021 [facility] Comment on above: 1 Occurrences starti ng 06/07/2020 until 08/07/2021 End: 10-22-2021 Alkaline phosphatase - bone isoenzyme measurement Alkaline Phosphatase, Bone Specific Lab Routine Age-related osteoporosis with current pathological fracture with routine healing, subsequent encounter 1 Occurrences starting 10/22/2020 until 10/22/2021 [facility] Comment on above: 1 Occurrences starti ng 10/22/2020 until 10/22/2021 Bacteria identified in Urine by Culture Urine Culture [facility] Work Phone: End: 11-20-2022 Basic metabolic 2000 panel - Serum or Plasma Basic metabolic panel Lab Routine Syncope, unspecified syncope type 1 Occurrences starting 11/20/2021 until 11/20/2022 [facility] Work Phone: Comment on above: 1 Occurrences starti ng 11/20/2021 until 11/20/2022 Bilirubin measuremen t, urine [facility] End: 01-06-2022 Bone density scan XR Bone Density DEXA Axial Imaging Routine Age-related osteoporosis without current pathological fracture 1 Occurrences starting 01/06/2021 until 01/06/2022 [facility] Comment on above: 1 Occurrences starti ng 01/06/2021 until 01/06/2022 End: 04-13-2022 Carotid artery doppler assessment Ultrasound doppler carotid Vascular Ultrasound Routine Stenosis of right internal carotid artery 1 Occurrences starting 02/11/2021 until 04/13/2022 [facility] Comment on above: 1 Occurrences starti ng 02/11/2021 until 04/13/2022 End: 11-20-2022 Complete blood count with white cell differential, manual CBC and differential Lab Routine Syncope, unspecified syncope type 1 Occurrences starting 11/20/2021 until 11/20/2022 [facility] Comment on above: 1 Occurrences starti ng 11/20/2021 until 11/20/2022 End: 10-22-2021 Creatinine [Mass/Vol] Creatinine, serum Lab Routine Age-related osteoporosis with current pathological fracture with routine healing, subsequent encounter 1 Occurrences starting 10/22/2020 until 10/22/2021 [facility] Comment on above: 1 Occurrences starti ng 10/22/2020 until 10/22/2021 End: 07-13-2020 CT of chest without contrast CT Chest Without Contrast Imaging Routine Persistent cough SOB (shortness of breath) 1 Occurrences starting 07/13/2019 until 07/13/2020 [facility] Comment on above: 1 Occurrences starti ng 07/13/2019 until 07/13/2020 End: 08-07-2021 Echocardiography Echocardiogram complete Echocardiography Routine Tachycardia NOBLE (dyspnea on exertion) 1 Occurrences starting 06/07/2020 until 08/07/2021 [facility] Comment on above: 1 Occurrences starti ng 06/07/2020 until 08/07/2021 End: 01-19-2023 Echocardiography Echocardiogram complete Echocardiography Routine Syncope, unspecified syncope type 1 Occurrences starting 11/20/2021 until 01/19/2023 [facility] Comment on above: 1 Occurrences starti ng 11/20/2021 until 01/19/2023 Hemoglobin [Presence ] in Urine [facility] Iron [Mass/mass] in Unspecified specimen [facility] Work Phone: Iron and Iron bindin g capacity panel - Serum or Plasma [facility] Work Phone: Iron saturation [Mas s Fraction] in Serum or Plasma [facility] Work Phone: Lipid 1996 panel - S jefry or Plasma [facility] Work Phone: Lipid [facility] panel - S jefry or Plasma [facility] Measurement of keton es in urine using dipstick [facility] Microscopic urinalysis [facility] End: 04-08-2021 MR Knee Right Without Contrast MR Knee Right Without Contrast Imaging Routine Tear of lateral meniscus of right knee, unspecified tear type, unspecified whether old or current tear, subsequent encounter 1 Occurrences starting 10/09/2020 until 04/08/2021 [facility] Comment on above: 1 Occurrences starti ng 10/09/2020 until 04/08/2021 End: 07-08-2023 Outpatient Device Clinic Referral - Open for details Outpatient [facility] Referral - Open for details Cardiac Services Routine Pacemaker complications, initial encounter Syncope, cardiogenic 1 Occurrences starting 05/08/2022 until 07/08/2023 [facility] Work Phone: Comment on above: 1 Occurrences starti ng 05/08/2022 until 07/08/2023 End: 10-22-2021 Parathyrin.intact and Calcium panel - Serum or Plasma PTH, Intact Lab Routine Age-related osteoporosis with current pathological fracture with routine healing, subsequent encounter 1 Occurrences starting 10/22/2020 until 10/22/2021 [facility] Comment on above: 1 Occurrences starti ng 10/22/2020 until 10/22/2021 Patient Education [facility] Work Phone: Patient referral [facility] Work Phone: pH of Urine [facility] End: 08-09-2020 Radionuclide myocardial perfusion study NM Myocardial Perfusion Multiple SPECT Imaging Routine NOBLE (dyspnea on exertion) Abnormal ECG 1 Occurrences starting 08/09/2019 until 08/09/2020 [facility] Comment on above: 1 Occurrences starti ng 08/09/2019 until 08/09/2020 Specific gravity of Urine [facility] Thyroid stimulating hormone measurement [facility] Work Phone: Thyroid stimulating hormone measurement [facility] Urinalysis, blood, qualitative [facility] Urine dipstick for glucose [facility] Urine dipstick for leukocyte esterase [facility] Urine dipstick for nitrite [facility] Urine dipstick for protein [facility] Urine examination [facility] Urine microalbumin/creatinine ratio measurement [facility] Work Phone: Urine microalbumin/creatinine ratio measurement [facility] Urine microscopy: epithelial cells [facility] Urine Microscopy: wh ite cells [facility] Urobilinogen [Presen ce] in Urine [facility] End: 10-22-2021 Vitamin D, 25-hydroxy measurement Vitamin D, Total, 25-OH Lab Routine Vitamin D deficiency, unspecified Age-related osteoporosis with current pathological fracture with routine healing, subsequent encounter 1 Occurrences starting 10/22/2020 until 10/22/2021 [facility] Comment on above: 1 Occurrences starti ng 10/22/2020 until 10/22/2021 Vitamin D, 25-hydrox y measurement [facility] Work Phone: Vitamin D, 25-hydrox y measurement [facility] End: 10-22-2021 XR Hands Bilateral Ball Catchers 2 Views XR Hands Bilateral [employer] Catchers 2 Views Imaging Routine Arthralgia, unspecified joint 1 Occurrences starting 10/22/2020 until 10/22/2021 [facility] Comment on above: 1 Occurrences starti ng 10/22/2020 until 10/22/2021 [facility] NEGATED: Highlighted row has been ruled out! Planned Goals not documented [facility] Work Phone: Immunizations Immunization Date Immunization Notes Care Provider Fa bhavani 08-12-2021 Covid (Pfizer) Dr. Olivier Acosta Work Phone: [facility] 08-05-2021 pneumococcal conjuga te vaccine, 13 valent Eduardo Castro MD Work Phone: [facility] 08-05-2021 pneumococcal vaccine , unspecified formulation Eduardo Castro MD Work Phone: [facility] 07-21-2017 Influenza, high dose seasonal Dr. Olivier Acosta MD Work Phone: [facility] 07-21-2017 influenza, high dose seasonal, preservative-free [facility] 07-21-2017 pneumococcal conjuga te vaccine, 13 valent [facility] 07-21-2017 influenza virus vacc ine, unspecified formulation Screen tr [facility] 05-06-2016 influenza, injectabl e, quadrivalent, preservative free [facility] 03-12-2016 pneumococcal polysaccharide vaccine, 23 valent [facility] 05-13-2015 influenza, seasonal, injectable, preservative free [facility] 12-28-2014 pneumococcal polysaccharide vaccine, 23 valent [facility] 01-20-2007 tetanus toxoid, redu luis diphtheria toxoid, and acellular pertussis vaccine, adsorbed [facility] Payers Date Payer Category Payer Medicare [id number] 2024 Self-pay [id number] 2024 Medicaid [id number] 2024 Medicaid [id number] [id number] 2017 Unknown DEMETRIS WILLSON TRADITIONAL xxxxxxxxxxxx 2017-Present [id number] [id number] 2017 Unknown [id number] [id number].3.6 [id number] 2017 Unknown [id number] 2015 Medicare [id number] 2.16.840.1.400706.3.249.13 2010 Medicare 2010 Medicare MEDICARE MEDICAR E PART A & B xxxxxxxxxxx 2010-Present [place] xxxxxxxxxxx [id number] [id number] 2010 Medicare [id number] 1.2.840.204549.1.13.385.2.7.3.6 [id number] 2010 Unknown 2010 Medicare [id number] 1952 Unknown [id number] 2.16840.1.856346.3.579.2.71 1952 Unknown [id number] 2.16.840.1.793693.3.579.2.717 1952 Unknown [id number] 2.16840.1.294255.3.579.2.717 1952 Unknown [id number] 2.16840.1.306687.3.579.2.356 1952 Unknown [id number] 2.16840.1.682136.3.579.2.903 1952 Unknown [id number] 2.16.840.1.734850.3.579.2.902 1952 Unknown [id number] 2.16.840.1.991281.3.579.2.1069 1952 Unknown [id number] 2.16840.1.815485.3.579.2.903 1952 Unknown [id number] 2.16.840.1.654824.3.579.2.90 1952 Unknown [id number] 2.16.840.1.065726.3.579.2. 1952 Unknown [id number] 2.16.840.1.691250.3.579.2. 1952 Unknown [id number] 2.16.840.1.046675.3.579.2. 1952 Unknown [id number] 2.16.840.1.609190.3.579.2. 1952 Unknown [id number] 2.16.840.1.602266.3.579.2. 1952 Unknown [id number] 2.16.840.1.238553.3.579.2 1952 Unknown [id number] 2.16840.1.928192.3.579.2 1952 Unknown [id number] 2.16.840.1.087443.3.579.2 1952 Unknown [id number] 2.16.840.1.301264.3.579.2 1952 Unknown [id number] 2.16.840.1.567312.3.579.2. 1952 Unknown [id number] 2.16840.1.024250.3.579.2. 1952 Unknown [id number] 2.16.840.1.463933.3.579.2. 1952 Unknown [id number] 2.16.840.1.483329.3.579.2. 1952 Unknown [id number] 2.16.840.1.001248.3.579.2. 1952 Unknown [id number] 2.16.840.1.251562.3.579.2. 1952 Unknown [id number] 2.16.840.1.052027.3.579.2.903 1952 Unknown [id number] 2.16.840.1.396492.3.579.2. 1952 Unknown [id number] 2.16.840.1.152734.3.579.2.903 1952 Unknown [id number] 2.16.840.1.378011.3.579.2. 1952 Unknown [id number] 2.16.840.1.389212.3.579.2. 1952 Unknown [id number] 2.16.840.1.785519.3.579.2. 1952 Unknown [id number] 2.16.840.1.071286.3.579.2. 1952 Unknown [id number] 2.16.840.1.358257.3.579.2. 1952 Unknown [id number] 2.16.840.1.552735.3.579.2. 1952 Unknown [id number] 2.16.840.1.772956.3.579.2. 1952 Unknown [id number] 2.16.840.1.453948.3.579.2.900 1952 Unknown [id number] 2.16.840.1.391748.3.579.2.900 1952 Unknown [id number] 2.16.840.1.572852.3.579.2.900 1952 Unknown [id number] 2.16.840.1.756215.3.579.2.900 1952 Unknown [id number] 2.16.840.1.622434.3.579.2.900 1952 Unknown [id number] 2.16.840.1.076907.3.579.2.900 1952 Unknown [id number] 2.16.840.1.534865.3.579.2.900 1952 Unknown [id number] 2.16.840.1.115475.3.579.2.900 1952 Unknown [id number] 2.16.840.1.046549.3.579.2.651 1952 Unknown [id number] 2.16.840.1.946036.3.579.2.651 1952 Unknown [id number] 2.16.840.1.080881.3.579.2.651 1952 Unknown [id number] 2.16.840.1.946643.3.579.2.651 1952 Unknown [id number] 2.16.840.1.080718.3.579.2.651 Medicare [id number] Unknown [id number] Unknown [id number] 2.16.840.1.741056.3.579.2.462 Unknown [id number] 2.16.840.1.958719.3.579.2.462 Unknown [id number] 2.16.840.1.963724.3.579.2.462 Unknown [id number] 2.16.840.1.216957.3.579.2.462 Unknown [id number] [id number]2 Unknown [id number] 2.16.840.1.510012.3.579.2.462 Unknown [id number] 2.16.840.1.758211.3.579.2.462 Unknown [id number] 2.16.840.1.584926.3.579.2.462 Unknown [id number] 2.16.840.1.722524.3.579.2.462 Unknown [id number] 2.16.840.1.512889.3.579.2.462 Unknown [id number] 2.16.840.1.956447.3.579.2.462 Unknown [id number] 2.16.840.1.795516.3.579.2.462 Unknown [id number] 2.16.840.1.533094.3.579.2.462 Unknown [id number] 2.16.840.1.035351.3.579.2.462 Unknown [id number] 2.16.840.1.420979.3.579.2.462 Unknown [id number] 2.16.840.1.629647.3.579.2.462 Unknown [id number] 2.16.840.1.200244.3.579.2.462 Unknown [id number] 2.16.840.1.386858.3.579.2.462 Unknown [id number] 2.16.840.1.977236.3.579.2.462 Unknown [id number] 2.16.840.1.639124.3.579.2.462 Unknown [id number] 2.16.840.1.529533.3.579.2.462 Unknown [id number] 2.16.840.1.879650.3.579.2.462 Unknown [id number] 2.16.840.1.021868.3.579.2.462 Unknown [id number] 2.16840.1.606691.3.579.2.462 Unknown [id number] 2.16840.1.744470.3.579.2.462 Unknown [id number] 2.16840.1.602618.3.579.2.462 Social History Date Type Detail Facility Start: 02-08-2018 End: 08-20-2022 Tobacco smoking status [facility] Never smoker [facility] Work Phone: Start: 1950 Sex Assigned At Not on file [facility] Work Phone: Start: 07-13-2019 End: 12-14-2023 Alcohol intake Current non-drinker of alcohol (finding) [facility] Start: 11-10-2021 End: 01-05-2023 Exposure to SARS-CoV-2 (event) Not sure [facility] Start: 04-25-2020 End: 08-20-2022 Tobacco use and exposure Never used [facility] Start: 11-25-2021 End: 12-05-2021 Exposure to SARS-CoV-2 (event) Unable to assess [facility] Start: 09-20-2017 End: 12-10-2023 Never smoked tobacco Never smoked tobacco [facility] Start: 05-31-2019 End: 10-08-2022 Tobacco smoking consumption unknown [facility] Start: 1950 Sex Assigned At Female W [facility] Start: 03-30-2022 Alcohol intake Current drinke r of alcohol (finding) [facility] Start: 01-05-2023 End: 12-10-2023 Tobacco use panel [facility] Start: 07-31-2019 Gender identity Identifies as female gender (finding) [facility] Start: 07-31-2019 Sexual orientation Heterosexua l (finding) [facility] National Score (1-100), lower number is lower risk 69 [facility] Has the electric, gas, oil, or water company threatened to shut off services in your home in past 12Mo No [facility] (I/We) worried whether (my/our) food would run out before (I/we) got money to buy more. Never true [facility] Start: 02-28-2020 Sexual Orientation Choose not to disclose [facility] NEGATED: Highlighted row - - [facility] Work Phone: NEGATED: Highlighted row [facility] Medical Equipment Procedure Code Equipment Code Equipment Origin al Text Equipment Identifier Dates Monitor Insertab le Cardiac Loop Recorder Lux-Dx - [id number] FDA Start: 12-20-2020 Biomet Spo Lux-D x [id number] Start: 12-19-2020 Biomet Spo M301 Lux-Dx Icm [id number] Start: 12-19-2020 Envelope Anti-Bacterial Aigis/Tyrx Pacer Resorbable Mesh - [id number] FDA Start: 12-15-2021 Pacer Mri [address] - [id number] FDA Start: 12-15-2021 Lead Pacing 7841 Mri Ingevity Plus - [id number], [id number], [id number] FDA Start: 12-15-2021 Biomet Spo L311 Accolade Mri [id number] Start: 12-14-2021 Biomet Spo 7841 Ingevity + Mri [id number] Start: 12-14-2021 Envelope Anti-Bacterial Aigis/Tyrx Pacer Resorbable Mesh - [id number] Start: 05-08-2022 Lead Pacing 7840 Mri Ingevity Plus - [id number] FDA Start: 12-15-2021 Comment on above: Description: Existin g implant. Adjusted. Lead Pacing 7841 Mri Ingevity Plus - [id number] Start: 05-08-2022 Biomet Spo 7841 Ingevity + Mri [id number] Start: 05-07-2022 [employer]OSTON SCI[employer] C ACCOLADE PACEMAKER FDA Start: 12-15-2021 [employer] C ACCOLADE PACEMAKER FDA Start: 12-15-2021 [employer] C ACCOLADE PACEMAKER FDA Start: 12-15-2021 [employer] C ACCOLADE PACEMAKER FDA Start: 12-15-2021 [employer] ACCOLADE PACEMAKER FDA Start: 12-15-2021 [employer] C ACCOLADE PACEMAKER FDA Start: 12-15-2021 FDA Start: 12-15-2021 FDA Start: 12-15-2021 FDA Start: 12-15-2021 FDA Start: 12-15-2021 FDA Start: 12-15-2021 FDA Start: 12-15-2021 FDA Start: 12-15-2021 FDA Start: 12-15-2021 FDA Start: 12-15-2021 FDA Start: 12-15-2021 FDA Start: 12-15-2021 FDA Start: 12-15-2021 [employer] ACCOLADE PACEMAKER FDA Start: 12-15-2021 [employer] C ACCOLADE PACEMAKER FDA Start: 12-15-2021 [employer] C ACCOLADE PACEMAKER FDA Start: 12-15-2021 [employer] ACCOLADE PACEMAKER FDA Start: 12-15-2021 [employer] ACCOLADE PACEMAKER FDA Start: 12-15-2021 [employer] ACCOLADE PACEMAKER FDA Start: 12-15-2021 Kit Autoplex W/Vertaplex Hv Cement - [id number] Start: 07-08-2023 Comment on above: Description: Ref num demar [id number] Start: 05-29-2023 Biomet Spo L311 Accolade Mri [id number] Start: 12-14-2021 Biomet Spo 7840 Ingevity + Mri [id number] Start: 12-14-2021 Biomet Spo 7841 Ingevity + Mri [id number] Start: 05-07-2022 [employer] ACCOLADE PACEMAKER FDA Start: 12-15-2021 [employer] ACCOLADE PACEMAKER FDA Start: 12-15-2021 [employer] ACCOLADE PACEMAKER FDA Start: 12-15-2021 [employer] C ACCOLADE PACEMAKER FDA Start: 12-15-2021 [employer] C ACCOLADE PACEMAKER FDA Start: 12-15-2021 [employer] ACCOLADE PACEMAKER FDA Start: 12-15-2021 Biomet Spo L311 Accolade Mri [id number] Start: 12-14-2021 Biomet Spo 7840 Ingevity + Mri [id number] Start: 12-14-2021 Biomet Spo 7841 Ingevity + Mri [id number] Start: 05-07-2022 Biomet Spo L311 Accolade Mri [id number] Start: 12-14-2021 Biomet Spo 7840 Ingevity + Mri [id number] Start: 12-14-2021 Biomet Spo 7841 Ingevity + Mri [id number] Start: 05-07-2022 [employer] ACCOLADE PACEMAKER FDA Start: 12-15-2021 [employer] ACCOLADE PACEMAKER FDA Start: 12-15-2021 [employer] ACCOLADE PACEMAKER FDA Start: 12-15-2021 B[employer] C ACCOLADE PACEMAKER FDA Start: 12-15-2021 [employer] ACCOLADE PACEMAKER FDA Start: 12-15-2021 [employer] ACCOLADE PACEMAKER FDA Start: 12-15-2021 Goals Date Patient Goal Desired Activity /State Functional Status Date Assessment Result Facility 10-12-2022 Functional status Bathroom Privilege [facility] Work Phone: 09-22-2022 Functional status Ambulates [facility] Work Phone: 09-14-2022 Functional status Bedrest [facility] Work Phone: 09-14-2022 Functional status With Assist of 1 [facility] Work Phone: 09-01-2022 Functional status Ambulates [facility] Work Phone: NEGATED: Highlighted row Functional performance Functional status health issues are not documented [facility] Work Phone: Mental Status Date Assessment Result Facility 10-12-2022 Cognitive function Voice/Name [facility] Work Phone: 10-08-2022 Cognitive function Level Of Cons ciousness Awake;Alert;Appropriate ;Follows Commands [facility] Work Phone: 09-22-2022 Cognitive function Voice/Name [facility] Work Phone: 09-13-2022 Cognitive function Voice/Name [facility] Work Phone: 09-01-2022 Cognitive function Voice/Name [facility] Work Phone: NEGATED: Highlighted row Cognitive function [Interpretation] Cognitive status health issues are not documented [facility] Work Phone: Clinical Notes 12-20-2020 to 01-09-2024 Quick Note - Gisele Velasquez RN - 12/17/2023 12:52 PM EDTQuick Note - Alexsandra Glez RN - 12/17/2023 12:52 PM EDTQuick Note - Gisele Velasquez RN - 12/17/2023 12:52 PM EDTPatient Instructions Note Date & Type Note Facility 01-09-2024 Note [facility] DISCHARGE SUMMARY NAME ACCOUNT SEX AGE ADMIT DISCHARGE PT MED. RECORD# NUMBER DATE DATE TYPE MEL [id number] F 73 11/23/23 1 KRISTEN Dodge [id number] ROOM: 308MO DATE OF : 1950 ATTENDING PHYSICIAN: Shahnaz Medina FINAL DIAGNOSES: 1. Dizziness with nausea. 2. Adrenal insufficiency. 3. Uncontrolled diabetes mellitus type 2. 4. Abnormal CT with enlarged ventricles, unable to complete MRI. 5. Orthostatic hypotension. 6. Chronic kidney disease stage IIIA. 7. History of vertigo. 8. Hypokalemia. 9. Chronic leukocytosis. DIAGNOSTIC DATA: CT of the abdomen and pelvis completed with an emergency room visit due to nausea and vomiting with no acute abnormalities. CT of the brain without contrast with lateral ventricle slightly larger on comparison, questionable for normal pressure hydrocephalus and global atrophy. HOSPITAL COURSE: For a full history and physical, please see chart. For a brief summary, see below. The patient is a 73-year-old female who had a history of vertigo and adrenal insufficiency who has recurrent orthostatic hypotension. She came in this time with dizziness. She denied any spinning sensation. She stated when she got up she felt like she was going to pass out. She was nauseated and then would feel sick to her stomach. She was in the emergency room multiple times. At one of the times, she was treated with Keflex for urinary tract infection due to an abnormal urinalysis, but she was asymptomatic. In the emergency room, they had done a CT of the abdomen and pelvis. They tried to get her up, and she felt like she was going to pass out. She was admitted for observation. Upon evaluation, she tells me she is still dizzy, especially when she gets up. She had not had her midodrine, and I did review her previous workup with adrenal insufficiency. She was requesting food. She was able to tolerate liquids. She had physical therapy evaluation. She still feels weak, but much better. Upon evaluation this morning, I explained to her the abnormality on the CT of the brain. She is unable to participate in an MRI due to pacemaker, and she needs follow-up with a neurologist on this. We also discussed the adrenal insufficiency and uncontrolled diabetes and recommendation for pillar worker. She does have KALEB hose, knee highs, and I did add Florinef, and she does feel better this morning. Soaping Machine Back Tender was on consultation, and it was decided that she would go to [facility] at least for short-term. Page 1 of 2 KRISTEN MANN Discharge Summary KRISTENKEKE MANN : 1950 Today, on the date of discharge, her blood pressure was 143/79, heart rate 98, respirations 18, temperature 97.7, and oxygen saturation 96% on room air. GENERAL APPEARANCE: This is a well-nourished, well-developed 73-year-old female. She is alert and cooperative. Her speech is clear. HEENT: Unremarkable. NECK: Neck is supple. LUNGS: Normal respiratory effort. HEART: Regular rate and rhythm. I discussed recommendations for outpatient follow-up and the abnormality on the CT that would need further evaluation, as well as the adrenal insufficiency. She does have chronic kidney disease, and I will order a [facility] for follow-up with Dr. Acosta who will get the results, and she does have an office appointment that was set up prior to discharge. Condition on discharge is improved. DISPOSITION: Discharge destination: [facility]. MEDICATIONS ON DISCHARGE: (1) Acetaminophen 650 mg every 4 hours p.r.n. (2) Fludrocortisone 0.1 mg daily. (3) Midodrine 2.5 mg three times daily. (4) Zofran 4 mg twice daily p.r.n. (5) Senokot one tablet daily. (6) Venlafaxine extended release 150 mg daily. (7) Insulin per sliding scale. (8) Insulin Glargine 40 units every night. As of note, the only new medication and prescription was for fludrocortisone, and the rest were on her home medication list. DISCHARGE INSTRUCTIONS/PLAN: Increase activity as tolerated. Ambulation with a walker until steady, physical therapy evaluation. Recommend neurology follow-up due to abnormal CT of the brain, unable to do MRI due to pacemaker and pillar worker for adrenal insufficiency and uncontrolled diabetes. Follow-up with Dr. Acosta on November 28 at 11:30 a.m. with a BMP. Check Glucoscans before meals and at bedtime with moderate NovoLog sliding scale. KALEB hose knee high daily. I evaluated the patient myself the accurate E&M above done by Marla Medina MD Dictated by valery Villanueva for Shahnaz Medina M.D. 11/24/23 12:27 JOB #: [id number] Transcribed By: am 11/24/23 13:34 Electronically signed by: E-Sign: SHAHNAZ MEDINA MD 01/09/24 10:55 Page 2 of 2 KRISTEN MANN Discharge Summary [facility] 01-07-2024 Note [facility] HISTORY & PHYSICAL NAME ACCOUNT SEX AGE ADMIT DISCHARGE PT MED. RECORD# NUMBER DATE DATE TYPE MEL [id number] F 73 11/22/23 Ross KRISTEN Dodge [id number] ROOM: 308MO DATE OF : [birth year] DICTATING PHYSICIAN: Shahnaz Medina CHIEF COMPLAINT: Dizziness. HISTORY OF PRESENT ILLNESS: This is a 73-year-old female with a known past medical history significant for diabetes mellitus type 2, hyperlipidemia, chronic headaches, chronic back pain, previous abdominal issues, and orthostatic hypotension on treatment. She had multiple emergency room visits. She stated when she would sit up she would get dizzy, nauseated, and then feel sick. She came to the emergency room. Urine was evaluated. She was treated for possible urinary tract infection with Keflex 500 mg three times daily for 10 days. She has no urinary symptoms. No burning. No decreased urination or changes. No fever or chills. She returned to the emergency room when she continued to feel dizzy when she got up, nausea and vomiting, and no vertigo, but she has had vertigo in the past. She had negative workup including CT of her abdomen and pelvis. When she would sit up, she felt like she was going to pass out. She does take Midodrine at home. She was admitted overnight for observation. Upon evaluation this morning, she was alert. She has not vomited. She was requesting food. PAST MEDICAL HISTORY: (1) Diabetes mellitus type 2 on insulin regimen. (2) Vitamin D deficiency. (3) TIA in the past. (4) Asthma. (5) Hypertension. (6) Pacemaker placement. (7) Depression with anxiety. (8) Recurrent urinary tract infections recently treated with antibiotics. (9) Chronic headaches. (10) Chronic back pain. (11) Chronic "stomach issues", followed as an outpatient. (12) Vertigo in the past, being evaluated by physical therapy. (13) Back fracture according to her after a fall. (14) Orthostatic hypotension on treatment. PAST SURGICAL HISTORY: (1) Cholecystectomy. (2) x2. (3) Hysterectomy. (4) Appendectomy. (5) Eye surgery 2 weeks ago due to retinopathy. (6) Pacemaker placement. MEDICATIONS: See medication reconciliation sheet. ALLERGIES: Sulfa, penicillin, and morphine. FAMILY HISTORY: Both parents are . There is a family history of diabetes. SOCIAL HISTORY: She lives at home. She does not smoke or drink alcohol. She is retired. REVIEW OF SYSTEMS: She denies any headache. She does not feel dizzy when she Page 1 of 4 KRISTEN MANN History & Physical KRISTEN MANN :1950 lies down, but when she sits up, she feels dizzy like she is going to pass out. She has had recurrent episodes of nausea, vomiting, but none in the hospital. No fever or chills. No itching. No rashes. No chest pain. No shortness of breath. No abdominal pain. No urinary symptoms whatsoever. PHYSICAL EXAMINATION GENERAL APPEARANCE: The patient was lying in bed in no acute distress. She was alert and cooperative. VITAL SIGNS: Blood pressure 114/67, heart rate 89, respirations 12, temperature 97.7, oxygen saturation 93% on room air, weight 178 pounds with BMI of 28.73. HEENT: Head normocephalic and atraumatic. PERRLA. Conjunctivae: Not injected. External pinnae: No lesions. Nares: Patent. Mouth and throat: No erythema. No exudates. NECK: Neck is supple. No JVD. LUNGS: Normal respiratory effort, equal lung expansion, clear to auscultation bilaterally. HEART: Regular rate and rhythm with no murmurs or gallops appreciated. ABDOMEN: Positive bowel sounds, soft and nontender. EXTREMITIES: Free of edema, cyanosis, or clubbing. NEUROLOGIC: She is alert. Speech is clear. She is able to answer questions appropriately. DIAGNOSTIC DATA: CT of the abdomen and pelvis completed on November 18, 2023 emergency room visit with no evidence of acute abdominal or pelvic abnormality. CT of the brain completed without contrast with no intracranial abnormality with global atrophy and atherosclerosis. Lateral ventricles are slightly larger with small vessel disease. Previous workup reviewed including previous CT and carotid ultrasounds with no significant findings. Laboratory data: White count is 14.3. Looking back, she has had leukocytosis on every laboratory on the last year. BUN on admission was 26 and creatinine 1.52. Creatinine this morning was 1.30. No elevation of liver function tests. Albumin was 3.3. Lipase is 85. Urinalysis showed over 50 white blood cells. Recent urine culture showed 10 to 50% E. coli. Page 2 of 4 KRISTEN MANN History & Physical PAULINO MANNKEKE Dodge :1950 IMPRESSION/PLAN: 1. Orthostatic hypotension by history. She is more symptomatic. She denies any spinning sensation. She does have a history of vertigo. She has no urinary symptoms. I have stopped antibiotics. They may have been contributing to her symptoms. I will continue Midodrine and add Florinef (more content not included)... [facility] 12-17-2023 Note Formatting of this n ote might be different from the original. AVS printed, reviewed with, and provided to the patient. AVS was updated with last/next medication administration times. IV was removed per order without complication; pressured dressing applied. Patient and daughter Carmen were educated on positioning, medications, and follow up appointments. Both verbalized understanding and declined further questions. Patient discharged back to [facility]. [facility] 12-17-2023 Note Formatting of this n ote might be different from the original. Pt seen by [facility].Caregiver present. Community resources given to pt. Assisted pt to vehicle via WC for DC with family. [facility] 12-17-2023 Miscellaneous Notes AVS printed, reviewed with, and provided to the patient. AVS was updated with last/next medication administration times. IV was removed per order without complication; pressured dressing applied. Patient and daughter Carmen were educated on positioning, medications, and follow up appointments. Both verbalized understanding and declined further questions. Patient discharged back to [facility]. Pt seen by [facility].Caregiver present. Community resources given to pt. Assisted pt to vehicle via WC for DC with family. Patient discharging; hospital POC resolved at this time. Problem: Actual or potential alteration in health Goal: Absence of healthcare acquired conditions Outcome: Completed Goal: Knowledge of Interdisciplinary Plan of Care Outcome: Completed Goal: Knowledge of Enviroment Outcome: Completed Problem: Pain Goal: Reduced pain sensation Outcome: Completed Goal: Control of acute pain to acceptable level Outcome: Completed Goal: Able to cope with pain Outcome: Completed Goal: Able to achieve maximum level of physical functioning Outcome: Completed Goal: Able to achieve maximum level of psychosocial functioning Outcome: Completed Problem: Falls, Risk of Goal: Absence of falls Outcome: Completed Goal: Absence of physical injury Outcome: Completed Problem: Actual or potential alteration in health Goal: Absence of healthcare acquired conditions Outcome: Partially Met Goal: Knowledge of Interdisciplinary Plan of Care Outcome: Partially Met Goal: Knowledge of Enviroment Outcome: Partially Met Problem: Pain Goal: Reduced pain sensation Outcome: Partially Met Goal: Control of acute pain to acceptable level Outcome: Partially Met Goal: Able to cope with pain Outcome: Partially Met Goal: Able to achieve maximum level of physical functioning Outcome: Partially Met Goal: Able to achieve maximum level of psychosocial functioning Outcome: Partially Met Problem: Falls, Risk of Goal: Absence of falls Outcome: Partially Met Goal: Absence of physical injury Outcome: Partially Met Neurosurgery Sign-Off Consulting Neurosurgeon: Dr Lynn Diagnosis: UTI, intractable nausea vomiting with hypotension, s/p Kyphoplasty, stable lumbar, thoracic pain Plan: No urgent surgical intervention indicated. Further workup of nausea/vomiting per admitting team. Follow-up: With Dr. Lynn 3-4 weeks Medications: Per primary team DVT Prophylaxis: Per primary team Braces: Not Applicable Activity: Up as tolerated Discharge instructions updated with appropriate follow-up. The Neurosurgery service will sign off at this time. Please re-consult with any questions, concerns or clinical updates. Problem: Actual or potential alteration in health Goal: Absence of healthcare acquired conditions Outcome: Partially Met Goal: Knowledge of Interdisciplinary Plan of Care Outcome: Partially Met Goal: Knowledge of Enviroment Outcome: Partially Met Problem: Pain Goal: Reduced pain sensation Outcome: Partially Met Goal: Control of acute pain to acceptable level Outcome: Partially Met Goal: Able to cope with pain Outcome: Partially Met Goal: Able to achieve maximum level of physical functioning Outcome: Partially Met Goal: Able to achieve maximum level of psychosocial functioning Outcome: Partially Met Problem: Falls, Risk of Goal: Absence of falls Outcome: Partially Met Goal: Absence of physical injury Outcome: Partially Met Noted monitoring of creatinine. Clinical Indicators: Per lab: 12/09 creatinine 1.47, 12/10 creatinine 1.17, 12/13 creatinine 1.13 Per H&P: " hypotension....DM" Per ER provider: "3 to 4 weeks worth of lightheadedness and dizziness symptoms with associated nausea vomiting. Symptoms are triggered and worse with attempting getting up and turning her head. Symptoms decreased with laying flat and still" Historical record: " 10/02/23 Chronic Kidney disease" Please document the corresponding diagnosis reflective of these findings. Please include the present on admission status if applicable. For Example: GAGANDEEP, POA resolved GAGANDEEP on CKD Abnormal creatinine is clinically undetermined Other (please specify) Unable to determine Thank you, Rahel STEWART RN Clinical Furniture Refinisher [phone] (cell) After business hours you may contact Lorenza Mathur at [phone] (Weekdays until 10 PM and weekends 8 AM -10 PM) Noted monitoring of potassium Clinical Indicators: Per lab: / potassium 3.4, / potassium 2.9 and 3.7 Per progress notes: "intractable nausea and vomiting" Please document the corresponding diagnosis reflective of these findings. Please include the present on admission status if applicable. For Example: Hypokalemia, POA Low potassium is clinically undetermined Other (please specify) Unable to determine Thank you, Rahel STEWART RN Clinical Furniture Refinisher [phone] (eiob) After business hours you may contact Lorenza Mathur at [phone] (Weekdays until 10 PM and weekends 8 AM -10 PM) Problem: Actual or potential alteration in health Goal: Absence of healthcare acquired conditions Outcome: Partially Met Goal: Knowledge of Interdisciplinary Plan of Care Outcome: Partially Met Goal: Knowledge of Enviroment Outcome: Partially Met Problem: Pain Goal: Reduced pain sensation Outcome: Partially Met Goal: Control of acute pain to acceptable level Outcome: Partially Met Goal: Able to cope with pain Outcome: Partially Met Goal: Able to achieve maximum level of physical functioning Outcome: Partially Met Goal: Able to achieve maximum level of psychosocial functioning Outcome: Partially Met Problem: Falls, Risk of Goal: Absence of falls Outcome: Partially Met Goal: Absence of physical injury Outcome: Partially Met Dr Lynn rounded on this patient and requested orthostatic vitals be done. This LEATHER PRODUCTION MACHINE OPERATOR got those and the results are lying down 112/69, sitting up 87/56, when standing the patient got dizzy and nauseous and had to lie back down, once lying down, she vomited. Was not able to obtain standing BP. MRI complete, device returned to previous settings. Pt tolerated well. Pt in MRI Dept. Device placed in MRI safe mode, DOO 100, per [employer]. potline monitor applied. Chart reviewed; MRIs not yet performed. Will assess after the MRIs. Brooklyn Lynn MD OCCUPATIONAL THERAPY VISIT VARIANCE NOTE Attempted to see patient at this time, but unable secondary to: Refused (states nauseated and not feeling well). Will follow up as appropriate. PHYSICAL THERAPY VISIT VARIANCE NOTE Attempted to see patient at this time, but unable secondary to: Refused (Patient declined d/t not feeling well). Will follow up as appropriate. PSA walked pt to bathroom. Pt became dizzy and nauseous. Pt started dry heaving. BP 97/51. Pt returned to bed. Pt continues to dry heave. Problem: Actual or potential alteration in health Goal: Absence of healthcare acquired conditions Outcome: Partially Met Goal: Knowledge of Interdisciplinary Plan of Care Outcome: Partially Met Goal: Knowledge of Enviroment Outcome: Partially Met Problem: Pain Goal: Reduced pain sensation Outcome: Partially Met Goal: Control of acute pain to acceptable level Outcome: Partially Met Goal: Able to cope with pain Outcome: Partially Met Goal: Able to achieve maximum level of physical functioning Outcome: Partially Met Goal: Able to achieve maximum level of psychosocial functioning Outcome: Partially Met Problem: Falls, Risk of Goal: Absence of falls Outcome: Partially Met Goal: Absence of physical injury Outcome: Partially Met PHYSICAL THERAPY VISIT VARIANCE NOTE Attempted to see patient at this time, but unable secondary to: pt refused all mobility this date despite encouragement, reports she will throw up if she sits up or mobilizes. Nursing notified, will follow up as appropriate. Received call from device clinic at [phone] asking for emergent MRI form. Signed faxed Problem: Actual or potential alteration in health Goal: Absence of healthcare acquired conditions Outcome: Partially Met Goal: Knowledge of Interdisciplinary Plan of Care Outcome: Partially Met Goal: Knowledge of Enviroment Outcome: Partially Met Problem: Pain Goal: Reduced pain sensation Outcome: Partially Met Goal: Control of acute pain to acceptable level Outcome: Partially Met Goal: Able to cope with pain Outcome: Partially Met Goal: Able to achieve maximum level of physical functioning Outcome: Partially Met Goal: Able to achieve maximum level of psychosocial functioning Outcome: Partially Met Problem: Falls, Risk of Goal: Absence of falls Outcome: Partially Met Goal: Absence of physical injury Outcome: Partially Met PHYSICAL THERAPY VISIT VARIANCE NOTE Attempted to see patient at this time, but unable secondary to: Awaiting Medical Clearance (comment). Pt admitted with dizziness, normal pressure hydrocephalus, intractable Nausea and vomiting, complicated UTI and elevated troponin. Awaiting recommendations/plan from neurosurgery following brain, thoracic and lumbar imaging. Will follow up as appropriate. Patient able to transfer from bed to recliner with fww with 1 person assist. Patient denies nausea or dizziness and tolerated well. Problem: Actual or potential alteration in health Goal: Absence of healthcare acquired conditions Outcome: Partially Met Goal: Knowledge of Interdisciplinary Plan of Care Outcome: Partially Met Goal: Knowledge of Enviroment Outcome: Partially Met Problem: Pain Goal: Reduced pain sensation Outcome: Partially Met Goal: Control of acute pain to acceptable level Outcome: Partially Met Goal: Able to cope with pain Outcome: Partially Met Goal: Able to achieve maximum level of physical functioning Outcome: Partially Met Goal: Able to achieve maximum level of psychosocial functioning Outcome: Partially Met Problem: Falls, Risk of Goal: Absence of falls Outcome: Partially Met Goal: Absence of physical injury Outcome: Partially Met Problem: Actual or potential alteration in health Goal: Absence of healthcare acquired conditions Outcome: Partially Met Goal: Knowledge of Interdisciplinary Plan of Care Outcome: Partially Met Goal: Knowledge of Enviroment Outcome: Partially Met Problem: Pain Goal: Reduced pain sensation Outcome: Partially Met Goal: Control of acute pain to acceptable level Outcome: Partially Met Goal: Able to cope with pain Outcome: Partially Met Goal: Able to achieve maximum level of physical functioning Outcome: Partially Met Goal: Able to achieve maximum level of psychosocial functioning Outcome: Partially Met Problem: Actual or potential alteration in health Goal: Absence of healthcare acquired conditions Outcome: Partially Met Goal: Knowledge of Interdisciplinary Plan of Care Outcome: Partially Met Goal: Knowledge of Enviroment Outcome: Partially Met Problem: Actual or potential alteration in health Goal: Absence of healthcare acquired conditions Outcome: Partially Met Goal: Knowledge of Interdisciplinary Plan of Care Outcome: Partially Met Goal: Knowledge of Enviroment Outcome: Partially Met documented in this encounter [facility] 12-17-2023 Note Formatting of this n ote might be different from the original. Patient discharging; hospital POC resolved at this time. Problem: Actual or potential alteration in health Goal: Absence of healthcare acquired conditions Outcome: Completed Goal: Knowledge of Interdisciplinary Plan of Care Outcome: Completed Goal: Knowledge of Enviroment Outcome: Completed Problem: Pain Goal: Reduced pain sensation Outcome: Completed Goal: Control of acute pain to acceptable level Outcome: Completed Goal: Able to cope with pain Outcome: Completed Goal: Able to achieve maximum level of physical functioning Outcome: Completed Goal: Able to achieve maximum level of psychosocial functioning Outcome: Completed Problem: Falls, Risk of Goal: Absence of falls Outcome: Completed Goal: Absence of physical injury Outcome: Completed [facility] 12-17-2023 History of Present illness Narrative Care Management Progress Note Date: 12/17/2023 Time: 11:42 AM Patient Name: Kristen Mann Date of : 1950 Discharge Plan: D/C Disposition: Home Regulatory Documentation: Medicare IM Regulatory Documentation Status: Certified Plan A: Home Patient Paper Copy: Patient received paper copy Discharging Transportation Plan: Transportation Type: Auto Discharge Plan Status: Patient has discharge orders placed, daughter at bedside to transport patient home. [employer] information given to patient and daughter, per daughter's request, if they feel patient may need SNF in the future. Daughter will transport patient home. Care Management services completed at this time. Please reach out with any further needs. Assessment and Background Information: Physical Therapy PHYSICAL THERAPY TREATMENT NOTE Skilled Therapy Needs After Discharge Are Skilled Therapy Services Needed After Discharge: Yes Intensity of Skilled Therapy: Up to 5 days per week Anticipated Duration of Skilled Therapy: Duration 10 - 30 days Rehab Potential: Good, Fair, For goals Outcomes Measures Prior Function - Basic Mobility Raw Score: 24 Points Prior Function - Basic Mobility % Impaired: 0% AM-PAC Basic Mobility Raw Score: 14 Points AM-PAC Basic Mobility % Impaired: 53.86% Activity Tolerance Therapy Precautions General Rehab Precautions: Fall risk Balance Bed Mobility Rolling: Minimal assist Supine to Sit: Contact guard assist Sit to Supine: Stand by assist Journeyman Millwright: bedrails Skilled Intervention Provided: verbal cues, patient education For: efficient movement Resulting in: improved awareness Transfers Sit to Stand: Minimal assist Journeyman Millwright: (no AD) Skilled Intervention Provided: verbal cues, patient education For: efficient movement Resulting in: improved awareness Gait/Locomotion Gait Assistance: (Unable d/t dizziness when standing) Exercise Supine Exercises: Bilat LE x 20 Skilled Intervention Provided: verbal cues For: achieving full ROM as tolerated Resulting in: improved functional strength/ROM Additional Treatment Details Pt. with c/o dizziness with positional changes, BP 138/83 post return to sitting post 2 min. Sitting BP 91/66, after return to supine 150/79. Pt. in bed post PT all needs in reach and alarm set. RN aware of BP dropping when standing. Home Living Obtained Home Living and PLOF info from: Patient Lives With: Alone Type of Home: House Home Layout: One level Steps to enter home: Yes Rails to enter home: 2 rails Number of stairs to enter home: 3 Bathroom Shower/Tub: Walk-in shower Bathroom Toilet: Raised Bathroom Equipment: Grab bars in shower, Shower chair Bathroom Accessibility: Accessible Mobility Equipment: Cane, Wheeled walker, Rollator, Wheelchair - manual, Lift chair ADL Equipment: Wood Machinist, Long handled shoe horn Additional Objective Details - Home Living: Laundry in basement - daughter and DIL do laundry Prior Level of Function Level of [place] - Transfers/Ambulation/Mobility: Independent with functional transfers, Independent with household ambulation Level of [place] - ADLs: Independent Level of [place] - Homemaking: Independent Driving: Patient drives For complete objective data, detailed plan of care and patient education refer to: PT Evaluation flowsheet, PT Evaluation and Treatment flowsheet, PT Treatment flowsheet, patient Plan of Care, Plan of Care progress note, and Patient Education. This note stands as the current Discharge Summary upon patient discharge from the hospital or completion of Physical Therapy Plan of Care. Daughter arrives to help take patient home. She helps patient get dressed and ambulate to restroom. Patient becomes extremely dizzy and must abruptly stop activity and has bowel movement. Family does not believe that patient is safe to discharge. Spoke with on-call MD who states we can hold off on discharge at this moment and continue assessment into tomorrow. supreme court judge to room to speak with family. DaughterCarmen would like the doctor to call her tomorrow when they round. Care Management Progress Note Date: 12/16/2023 Time: 11:10 AM Patient Name: Kristen Mann Date of : 1950 Discharge Plan: Plan A: Home Discharging Transportation Plan: Discharge Plan Status: Patient has discharge orders placed. PT recommendations for SNF placement for therapy needs. Patient is refusing SNF placement as well as refusing any HHC. States she will return to her assisted living in [place] and continue her therapy with them. Family will transport patient home at discharge. Nursing to update family when patient is ready for discharge. Care Management services completed at this time. Please reach out with any further needs. 15:03 - Wendie at [facility] updated that patient will be returning today. Assessment and Background Information: Physical Therapy PHYSICAL THERAPY TREATMENT NOTE Skilled Therapy Needs After Discharge Are Skilled Therapy Services Needed After Discharge: Yes Intensity of Skilled Therapy: Up to 5 days per week Anticipated Duration of Skilled Therapy: Duration 10 - 30 days Rehab Potential: Good, Fair, For goals Outcomes Measures Prior Function - Basic Mobility Raw Score: 24 Points Prior Function - Basic Mobility % Impaired: 0% AM-PAC Basic Mobility Raw Score: 14 Points AM-PAC Basic Mobility % Impaired: 53.86% Activity Tolerance Activity Tolerance: Tolerates 10 - 20 min activity with multiple rests Therapy Precautions General Rehab Precautions: Fall risk Bed Mobility Rolling: Stand by assist Supine to Sit: Minimal assist, Head of bed elevated Sit to Supine: Stand by assist Journeyman Millwright: bedrails, bed positioning mechanics Skilled Intervention Provided: verbal cues, tactile cues, monitoring patient response with activity, provided step by step instructions, patient education For: UE management, efficient movement, safety during functional tasks Resulting in: improved activity tolerance, improved functional independence, improved performance, improved safety Transfers Sit to Stand: Moderate assist Stand Pivot Transfers: Moderate assist Journeyman Millwright: wheeled walker Additional Transfer Trial 2: Yes Sit to Stand Trial 2: Moderate assist Stand Pivot Transfers Trial 2: Moderate assist Journeyman Millwright Trial 2: wheeled walker Skilled Intervention Provided: verbal cues, tactile cues, monitoring patient response with activity, patient education, provided step by step instructions For: UE positioning, controlled descent, efficient movement, fall prevention, safety during functional tasks, safe use of AD and/or equipment Resulting in: improved activity tolerance, improved functional independence, improved performance, improved safety Exercise Ankle Pumps: 10 Quad Sets: 10 Additional Treatment Details Pt was in bed at start of treatment session and agreed to treatment session following encouragement and education. Pt transferrred to EOB, bp 114/71 sitting EOB. Pt sat EOB for approximately 5 minutes and agreed to get up in chair. Pt performed STS trasnfer and pivoted to chair, BP 105/56. Pt sat in chair for approximately 5 minutes before requesting to get back into bed due to not feeling well. Educated pt on benefits of sitting up and outof bed, pt stated she just does not feel well. Followed with SPT from chair to EOB and EOB to supsine transfer. Pt BP 129/77 once back in bed and head of bed elevated. Ended treatment session with pt in bed, all needs in reach, bed alarm on and tele monitor on. Home Living Obtained Home Living and PLOF info from: Patient Lives With: Alone Type of Home: House Home Layout: One level Steps to enter home: Yes Rails to enter home: 2 rails Number of stairs to enter home: 3 Bathroom Shower/Tub: Walk-in shower Bathroom Toilet: Raised Bathroom Equipment: Grab bars in shower, Shower chair Bathroom Accessibility: Accessible Mobility Equipment: Cane, Wheeled walker, Rollator, Wheelchair - manual, Lift chair ADL Equipment: Wood Machinist, Long handled shoe horn Additional Objective Details - Home Living: Laundry in basement - daughter and DIL do laundry Prior Level of Function Level of [place] - Transfers/Ambulation/Mobility: Independent with functional transfers, Independent with household ambulation Level of [place] - ADLs: Independent Level of [place] - Homemaking: Independent Driving: Patient drives For complete objective data, detailed plan of care and patient education refer to: PT Evaluation flowsheet, PT Evaluation and Treatment flowsheet, PT Treatment flowsheet, patient Plan of Care, Plan of Care progress note, and Patient Education. This note stands as the current Discharge Summary upon patient discharge from the hospital or completion of Physical Therapy Plan of Care. Nutrition Care Follow up Monitoring and Evaluation: PO intake was greater than 75% at most meals. Nutrition Diagnosis:Unintended wt loss related to emesis at home (every time she stood up) AEB 15# wt loss in 1 month per pt report. Active *Pt is at risk for malnutrition. Nutrition Intervention: Continue Meals and Snacks Diet:Continue Diabetic; Consistent Carbohydrate 60g/meal Nutrition Goals: Tolerate diet with PO intakes >75% most meals Start Date:12/15/2023 Expected End Date:12/19/2023 Nutrition Education: No needs at this time Assessment: Pertinent clinical information: Continues hospitalization for neurosurgery evaluation- signed off. Intractable N/V, improving per notes. Height: 5' 6" Current weight: 78.9 kg (174 lb) BMI Body mass index is 28.08 kg/m . Weight hx: Wt Readings from Last 10 Encounters: 12/10/23 78.9 kg (174 lb) 12/14/23 78.9 kg (174 lb) 10/25/23 86.2 kg (190 lb) 10/22/23 86.2 kg (190 lb) 09/30/23 86.2 kg (190 lb) 08/25/23 83 kg (183 lb) 08/10/23 83 kg (183 lb) 07/05/23 88 kg (194 lb) 07/07/23 88 kg (194 lb) 05/04/23 81.6 kg (180 lb) Significant Weight Change: yes, noted weight changes. Current diet order: Diet: Diabetic; Consistent Carbohydrate 60g/meal Recent intake: 75-100% x 1 meal Insufficient intake data at this time, unable to determine if current intake meets estimated needs. Barriers to adequate p.o. intakes: No barriers identified Patient/family comments:Deferred: Pt sleeping Difficulty Chewing or Swallowing: No Skin Integrity: Intact GI Function: LBM: 4/5, Constipation Fluid Status: WNL Physical Appearance: Unable to assess at this time Labs: Recent Labs 12/15/23 0558 NA 138 K 3.7 BICARB 24 CL 103 GLUCOSE 184* BUN 23 CREATININE 1.30* MG 2.0 Recent Labs 12/14/23 0442 12/15/23 0558 GLUCOSE 149* 184* Lab Results Component Value Date HGBA1C 11.6 (H) 09/30/2023 Scheduled Meds: enoxaparin (LOVENOX) injection 40 mg Subcutaneous Daily fludrocortisone 0.1 mg Oral Daily insulin glargine 30 Units Subcutaneous Nightly lispro insulin 0-15 Units Subcutaneous at bedtime insulin lispro 0-30 Units Subcutaneous TID AC meclizine 25 mg Oral Q6H VICTORINA midodrine 5 mg Oral TID senna-docusate 1 tablet Oral BID sodium chloride (PF) 5 mL Intravenous Q8H VICTORINA venlafaxine 150 mg Oral Daily Continuous Infusions: sodium chloride 0.9 % sodium chloride 0.9 % Estimated Energy Needs Total Energy Estimated Needs: 1900-2000kcals Method for Estimating Needs: 30kcals/kg Total Protein Estimated Needs: 78gms Method for Estimating Needs: 1.2gms/kg Barbara Duran RD [facility] [place] Assessment and Plan Kristen Mann is a 73 y.o. female patient of Olivier Acosta MD with history of anxiety, hypotension, diabetes presented to [facility] on 12/10/2023 with reccurent UTI, imbalance . Possible hydrocephalus Commensurate ventricular system enlargement. Noted on ct here today as above Will get MRI I reviewed CT from outside hospital with patient and 11/22/2023 dated reports suggests hydrocephalus Will consult NSG Syptoms have been going for 1 month - promptin her to be enrolled in jail Symptoms are classic with gait, uti and altered mentation Will obtain MRI 12/11/2023. Still awaiting MRI results of the brain thoracic and lumbar spine as well as neurosurgical consultation. Symptoms have improved this a.m. and will consult PT and OT for evaluation and recommendations. 12/12/2023. Still awaiting MRI of brain thorax and lumbar spine and appreciate neurosurgery's ongoing evaluation and recommendations. 12/13 MRI results reviewed with the patient; no obstructive hydrocephalus and nausea not explained but the imaging findings. No urgent surgical intervention indicated UTI reccurent Ua suggestive Emperic rocphin Cultures pending 12/11/2023. Patient's symptoms have improved this a.m. and remains on IV Rocephin awaiting urine cultures and sensitivities. 12/12/2023. Symptoms continue to improve and remains on IV Rocephin 12/13 repeat urine culture Diabetes Sliding scale 12/11/2023. Blood glucose is controlled and will continue with sliding scale insulin as needed. 12/12/2023. Blood glucose is controlled on current regimen. Anxiety Venlafaxine Hypotension Midiordrine 12/11/2023. Patient now mildly hypertensive and will decrease midodrine to 2.5 mg 3 times daily. 12/12/2023. Blood pressure is now well-controlled on lower dose of midodrine 2.5 mg 3 times daily. HLD No longer taking zetia Intractable nausea and vomiting 12/11/2023. Symptoms improved this a.m. with as needed antiemetics. Doubt secondary to hydrocephalus. 12/12/2023. Patient with intermittent nausea without vomiting and symptoms continue to improve. Sever orthostatic hypotension Patient also get the nausea and vomiting associated with the BP drop Add fludrocortisone 0.1 mg po , and increase midodrine to 5 mg po tid GAGANDEEP POA Related to hemodynamic changes Off IV fluid Hypokalemia, POA Resolved Discharge Planning Medically Stable for Discharge Date: TBD Patient requires continued hospitalization due to: Neurosurgical evaluation Discharge [facility]: [facility] Quality Measures DVT Prophylaxis: lovenox Zimmerman Catheter: absent Code Status full code Primary Contact Information Subjective Patient seen and examined this a.m. at bedside. Patient is currently awake and alert and denies any chest pain or shortness of breath, nausea or vomiting, diarrhea or constipation, dizziness or headache. Feel dizzy and nauseated with standing Objective BP 123/77 Pulse 95 Temp 97.5 F (36.4 C) (Oral) Resp 16 Ht 5' 6" Wt 78.9 kg (174 lb) SpO2 94% BMI 28.08 kg/m Physical Examination General Appearance: alert; well appearing; in no acute distress HEENT: Head- normocephalic; Eyes- EOMI, sclera anicteric; Throat- mucous membranes moist Cardiovascular: regular rate and rhythm; normal S1, S2; no murmurs, rubs, clicks or gallops; peripheral edema absent Respiratory: lungs clear to auscultation; without wheezes, rales or rhonchi; on room air Abdomen: soft, non-tender, non-distended Neurological: oriented ; normal speech; no focal findings or movement disorder noted Musculoskeletal: no significant deformity or tenderness to palpation Skin: normal coloration Psych: normal mood and affect Care Management Progress Note Date: 12/15/2023 Time: 10:30 AM Patient Name: Kristen Mann Date of : 1950 Discharge Plan: Plan A: Home Discharging Transportation Plan: Discharge Plan Status: Spoke with patient at bedside, explained Care Management role. Patient states she currently lives at [facility] in [place] d/t dizziness upon getting up. Patient states it has been going on for some time now. Patient has a home in [place] and she plans to return there when the dizziness has resolved. She has PCP and insurance. Denies further needs. She has cane/walker at home currently. Patient has given permission to speak with her family as needed. PT/OT working with patient at this time. Patient states family will transport her home at discharge. CM will continue to follow patient during this shift. 11:00 - Spoke with patient's daughter she confirms patient is normally from home, alone. She is currently at [facility] until December 23. Patient there d/t nausea with getting up. Patient will return home after her stay is up with [facility]. Assessment and Background Information: [facility] [place] Assessment and Plan Kristen Mann is a 73 y.o. female patient of Olivier Acosta MD with history of anxiety, hypotension, diabetes presented to [facility] on 12/10/2023 with reccurent UTI, imbalance . Possible hydrocephalus Commensurate ventricular system enlargement. Noted on ct here today as above Will get MRI I reviewed CT from outside hospital with patient and 11/22/2023 dated reports suggests hydrocephalus Will consult NSG Syptoms have been going for 1 month - promptin her to be enrolled in jail Symptoms are classic with gait, uti and altered mentation Will obtain MRI 12/11/2023. Still awaiting MRI results of the brain thoracic and lumbar spine as well as neurosurgical consultation. Symptoms have improved this a.m. and will consult PT and OT for evaluation and recommendations. 12/12/2023. Still awaiting MRI of brain thorax and lumbar spine and appreciate neurosurgery's ongoing evaluation and recommendations. 12/13 MRI results reviewed with the patient; no obstructive hydrocephalus and nausea not explained but the imaging findings. No urgent surgical intervention indicated UTI reccurent Ua suggestive Emperic rocphin Cultures pending 12/11/2023. Patient's symptoms have improved this a.m. and remains on IV Rocephin awaiting urine cultures and sensitivities. 12/12/2023. Symptoms continue to improve and remains on IV Rocephin 12/13 repeat urine culture Diabetes Sliding scale 12/11/2023. Blood glucose is controlled and will continue with sliding scale insulin as needed. 12/12/2023. Blood glucose is controlled on current regimen. Anxiety Venlafaxine Hypotension Midiordrine 12/11/2023. Patient now mildly hypertensive and will decrease midodrine to 2.5 mg 3 times daily. 12/12/2023. Blood pressure is now well-controlled on lower dose of midodrine 2.5 mg 3 times daily. HLD No longer taking zetia Intractable nausea and vomiting 12/11/2023. Symptoms improved this a.m. with as needed antiemetics. Doubt secondary to hydrocephalus. 12/12/2023. Patient with intermittent nausea without vomiting and symptoms continue to improve. Sever orthostatic hypotension Patient also get the nausea and vomiting associated with the BP drop Add fludrocortisone 0.1 mg po , and increase midodrine to 5 mg po tid Discharge Planning Medically Stable for Discharge Date: TBD Patient requires continued hospitalization due to: Neurosurgical evaluation Discharge Location: [facility] Quality Measures DVT Prophylaxis: lovenox Zimmerman Catheter: absent Code Status full code Primary Contact Information Subjective Patient seen and examined this a.m. at bedside. Patient is currently awake and alert and denies any chest pain or shortness of breath, nausea or vomiting, diarrhea or constipation, dizziness or headache. Objective BP 107/65 Pulse (!) 112 Temp 98.2 F (36.8 C) (Oral) Resp 16 Ht 5' 6" Wt 78.9 kg (174 lb) SpO2 96% BMI 28.08 kg/m Physical Examination General Appearance: alert; well appearing; in no acute distress HEENT: Head- normocephalic; Eyes- EOMI, sclera anicteric; Throat- mucous membranes moist Cardiovascular: regular rate and rhythm; normal S1, S2; no murmurs, rubs, clicks or gallops; peripheral edema absent Respiratory: lungs clear to auscultation; without wheezes, rales or rhonchi; on room air Abdomen: soft, non-tender, non-distended Neurological: oriented x 1; normal speech; no focal findings or movement disorder noted Musculoskeletal: no significant deformity or tenderness to palpation Skin: normal coloration Psych: normal mood and affect Neurological Surgery Progress Note Assessment & Plan: Kristen Mann is a 73 y.o. female with pmhx of osteoporosis, diabetes mellitus, orthostatic hypotension, arrhythmia s/p pacemaker implantation, s/p T11,T12, L1, L3 kyphoplasty admitted on 12/10/2023 with intractable nausea and vomiting in setting of hypotension that improved after the Midodrine dose was adjusted. On antibiotics for a UTI. Well controlled thoracic and lumbar pain with no new fracture and no focal neurological deficits. MRI results reviewed with the patient; no obstructive hydrocephalus and nausea not explained but the imaging findings. No urgent surgical intervention indicated. Further workup and management of the nausea and hypotension as per admitting team. Will arrange a follow up in 3-4 weeks or earlier if any concerns in the interim. Neurosurgery signs off, please contact us if any questions. Subjective Patient seen, no new symptoms. No nausea reported today when sitting. Denies any falls/traumas and has no cervical or thoracic pain. Milt "aching" in the lumbar region and intermittent headaches that are controlled with Tylenol and are not associated with the nausea events. The nausea occurs mainly when standing from a sitting position. Orthostatic VS not available but BP improved when the Midodrine dose was adjusted. No pain/numbness/weakness in her extremities and no other focal neurological symptoms. No vertigo and no infection symptoms. Stable chronic urinary incontinence, no bowel dysfunction and no saddle anesthesia. Is on antibiotics currently for a UTI. Review of Systems: All other systems reviewed and negative other than HPI Objective BP 120/76 Pulse (!) 103 Temp 98.2 F (36.8 C) (Oral) Resp 16 Ht 5' 6" Wt 78.9 kg (174 lb) SpO2 96% BMI 28.08 kg/m General Appearance: Alert x oriented x 3, well appearing, and in no acute distress. CN III- XII no deficits, no pronator drift No pain on palpation of the cervical spine/thoracic/upper lumbar spine. Mild tenderness at palpation of the midline and bilateral paraspinal lower lumbar region with no step-off. Straight leg test negative for radicular pain RUE: 5/5 delt, 5/5 bi, 5/5 tri, 5/5 we, 5/5 wf, 5/5 die finisher forging/int LUE: 5/5 delt, 5/5 bi, 5/5 tri, 5/5 we, 5/5 wf, 5/5 die finisher forging/int RLE: 5/5 hf, 5/5 ke, 5/5 df, 5/5 pf, 5/5 ehl LLE: 5/5 hf, 5/5 ke, 5/5 df, 5/5 pf, 5/5 ehl No gross sensory deficits Symmetric DTRs. No Gomez, no clonus, no Babinski. 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[facility]) Tachycardia Past Surgical History: Past Surgical History: Procedure Laterality Date APPENDECTOMY CARDIAC CATHETERIZATION CARDIAC PACEMAKER PLACEMENT SECTION, CLASSIC x2 CHOLECYSTECTOMY OPEN EP - DEVICE N/A 12/20/2020 Procedure: Loop Recorder Implant; Surgeon: Lenard Das MD; Location: EP LAB; Service: Cardiovascular EP - DEVICE N/A 12/15/2021 Procedure: Pacemaker Implant (Dual PPM 12-15-21 at 0600/0800); Surgeon: Lenard Das MD; Location: EP LAB; Service: Cardiovascular EP - DEVICE N/A 05/08/2022 Procedure: Pacemaker Lead Revision; Surgeon: Radha Hubbard DO; Location: [facility] EP LAB; Service: Cardiovascular EYE SURGERY HYSTERECTOMY KYPHOPLASTY N/A 07/08/2023 Procedure: KYPHOPLASTY; Surgeon: Brooklyn Lynn MD; Location: Main OR; Service: Neurological Family History: Family History Problem Relation Age of Onset Heart disease Father Asthma Mother Allergies: Allergies Allergen Reactions Morphine Shortness Of Breath Penicillins Rash Sulfa (Sulfonamide Antibiotics) Hives Medications: Home medications: Prior to Admission medications Medication Sig Start Date End Date Taking? Authorizing Provider metoclopramide (REGLAN) 5 MG tablet Take 1 (one) tablet (5 mg total) by mouth 2 (two) times a day as needed . 12/01/23 Yes Provider, MD Samy acetaminophen (TYLENOL ER) 650 MG CR tablet Take 1 (one) tablet (650 mg total) by mouth every 4 (four) hours as needed for pain or fever . Samy Feng MD BD AutoShield Duo Pen Needle 30 gauge x /16" Ndle 05/29/23 Samy Feng MD bisacodyL (DULCOLAX) 10 mg suppository Insert 1 (one) suppository (10 mg total) into the rectum daily as needed for constipation . Samy Feng MD cholecalciferol, vitamin D3, 50 mcg (2,000 unit) Tab Take 1 (one) tablet (2,000 Units total) by mouth nightly . Samy Feng MD ezetimibe (ZETIA) 10 mg tablet Take 1 (one) tablet (10 mg total) by mouth daily . Samy Feng MD fludrocortisone (FLORINEF) 0.1 mg tablet Take 1 (one) tablet (0.1 mg total) by mouth daily . Samy Feng MD insulin aspart U-100 (NovoLOG) 100 unit/mL injection Sliding scale BS 151-200 = 2 units, 201-250 = 4 units, 251-300 = 6 units, 301-350= 8 units, 351-400 = 10 units before meals and at Bedtime. If <70 or >400, call physician . Samy Feng MD insulin glargine (LANTUS) 100 unit/mL injection Inject 40 (forty) Units under the skin nightly . Samy Feng MD meclizine (ANTIVERT) 12.5 mg tablet Take 1 (one) tablet (12.5 mg total) by mouth 2 (two) times a day as needed for nausea . Samy Feng MD midodrine (PROAMATINE) 5 MG tablet Take 0.5 (one-half) tablet (2.5 mg total) by mouth 3 (three) times a day . 06/18/23 Ashley, Callie Veras MD midodrine (PROAMATINE) 5 MG tablet Take 1 (one) tablet (5 mg total) by mouth 3 (three) times a day . Samy Feng MD ondansetron (ZOFRAN) 4 MG tablet Take 1 (one) tablet (4 mg total) by mouth 2 (two) times a day as needed for nausea . Samy Feng MD polyethylene glycol (MIRALAX) 17 gram powder Take 17 (seventeen) g by mouth daily . Samy Feng MD potassium chloride SA (K-DUR,KLOR-CON) 20 MEQ tablet Take 1 (one) tablet (20 mEq total) by mouth 2 (two) times a day . 03/17/23 Samy Feng MD scopolamine (TRANSDERM-SCOP) 1 mg over [address] 1 (one) patch on the skin every 72 hours . 12/08/23 Samy Feng MD senna (SENOKOT) 8.6 mg tablet Take 1 (one) tablet (8.6 mg total) by mouth daily . Samy Feng MD sodium phosphates (FLEETS ADULT) 19-7 gram/118 mL Enem Insert 1 (one) each into the rectum daily as needed Reasons: constipation. Samy Feng MD venlafaxine (EFFEXOR-XR) 150 MG 24 hr capsule Take 1 (one) capsule (150 mg total) by mouth daily . Samy Feng MD vibegron (Gemtesa) 75 mg Tab Take 1 (one) tablet (75 mg total) by mouth daily . Samy Feng MD Hospital medications enoxaparin (LOVENOX) injection 40 mg Subcutaneous Daily insulin glargine 30 Units Subcutaneous Nightly lispro insulin 0-15 Units Subcutaneous at bedtime insulin lispro 0-30 Units Subcutaneous TID AC meclizine 25 mg Oral Q6H VICTORINA midodrine 2.5 mg Oral TID senna-docusate 1 tablet Oral BID sodium chloride (PF) 5 mL Intravenous Q8H VICTORINA venlafaxine 150 mg Oral Daily sodium chloride 0.9 % sodium chloride 0.9 % acetaminophen, bisacodyL, magnesium hydroxide, ondansetron OR ondansetron, [COMPLETED] Insert peripheral IV AND Saline lock IV AND sodium chloride (PF) AND sodium chloride 0.9 %, Saline lock IV AND sodium chloride (PF) AND sodium chloride (PF) AND sodium chloride 0.9 %, traZODone Vital Signs: Current: BP 120/76 Pulse (!) 103 Temp 98.2 F (36.8 C) (Oral) Resp 16 Ht 5' 6" Wt 78.9 kg (174 lb) SpO2 96% BMI 28.08 kg/m Last 24 hours: Temp Av.4 F (36.9 C) Min: 98 F (36.7 C) Max: 98.9 F (37.2 C) Pulse Av.4 Min: 87 Max: 122 Resp Av.2 Min: 15 Max: 18 SpO2 Av.6 % Min: 94 % Max: 96 % Labs: Lab Results Component Value Date NA 140 12/14/2023 INR 1.0 07/08/2023 HGB 11.8 (L) 12/14/2023 CREATININE 1.13 12/14/2023 WBC 11.91 (H) 12/14/2023 PLT 354 12/14/2023 Laboratory and Additional Data Reviewed: Reviewed 12/14/23 2:08 PM: Laboratory, Radiology, Cardiology, Medications, and Transcriptions Radiology: MR Brain With And Without Contrast Non-public Result 1. Moderate generalized brain atrophy. The ventricles are moderately dilated. The ventricular dilatation is likely the result of brain atrophy. No evidence of obstructive hydrocephalus. 2. No acute infarction. Chronic microvascular ischemic changes are stable. 3. No pathologic enhancement. No masses. Workstation ID: [id number] MR Thoracic Spine With And Without Contrast Non-public Result 1. Subacute compression fracture at T8 appears stable from the prior. There is approximately 45% loss of vertebral body height. No retropulsion of bone fragments into the spinal canal at this level. 2. No new compression fracture. 3. Prior vertebroplasty at T12. Chronic compression fracture at L1 with prior vertebroplasty. Mild chronic compression fractures at T2 and T3. These findings are stable. 4. No suspicious osseous lesions. No enhancing bone lesion identified. 5. No significant thoracic spinal canal stenosis. No abnormal signal or enhancement in the thoracic spinal cord. Workstation ID: [id number] XR Chest 1 View Final Result 1. No acute cardiopulmonary disease. Workstation ID: [id number] CT Head Or Brain Without Contrast Final Result No acute intracranial process. No substantial change since 10/22/2023. Workstation ID: [id number] MR Lumbar Spine With And Without Contrast (Results Pending) Interpretation of Testing: I personally reviewed the brain, thoracic, and lumbar MRI and agree with the interpretation(s) with the following comments. No acute intra-cranial event, ventriculomegaly with no lesion/hemorrhage. Subacute stable T8 compression fracture and stable chronic lumbar fractures with no spinal cord change, no epidural hematoma and stable degenerative changes. Brooklyn Lynn MD 2:08 PM 12/14/23 [facility] [place] Assessment and Plan Kristen Mann is a 73 y.o. female patient of Olivier Acosta MD with history of anxiety, hypotension, diabetes presented to [facility] on 12/10/2023 with reccurent UTI, imbalance . Possible hydrocephalus Commensurate ventricular system enlargement. Noted on ct here today as above Will get MRI I reviewed CT from outside hospital with patient and 11/22/2023 dated reports suggests hydrocephalus Will consult NSG Syptoms have been going for 1 month - promptin her to be enrolled in jail Symptoms are classic with gait, uti and altered mentation Will obtain MRI 12/11/2023. Still awaiting MRI results of the brain thoracic and lumbar spine as well as neurosurgical consultation. Symptoms have improved this a.m. and will consult PT and OT for evaluation and recommendations. 12/12/2023. Still awaiting MRI of brain thorax and lumbar spine and appreciate neurosurgery's ongoing evaluation and recommendations. UTI reccurent Ua suggestive Emperic rocphin Cultures pending 12/11/2023. Patient's symptoms have improved this a.m. and remains on IV Rocephin awaiting urine cultures and sensitivities. 12/12/2023. Symptoms continue to improve and remains on IV Rocephin Diabetes Sliding scale 12/11/2023. Blood glucose is controlled and will continue with sliding scale insulin as needed. 12/12/2023. Blood glucose is controlled on current regimen. Anxiety Venlafaxine Hypotension Midiordrine 12/11/2023. Patient now mildly hypertensive and will decrease midodrine to 2.5 mg 3 times daily. 12/12/2023. Blood pressure is now well-controlled on lower dose of midodrine 2.5 mg 3 times daily. HLD No longer taking zetia Intractable nausea and vomiting 12/11/2023. Symptoms improved this a.m. with as needed antiemetics. Doubt secondary to hydrocephalus. 12/12/2023. Patient with intermittent nausea without vomiting and symptoms continue to improve. Discharge Planning Medically Stable for Discharge Date: TBD Patient requires continued hospitalization due to: Neurosurgical evaluation Discharge Location: [facility] Quality Measures DVT Prophylaxis: lovenox Zimmerman Catheter: absent Code Status full code Primary Contact Information Subjective Patient seen and examined this a.m. at bedside. Patient is currently awake and alert and denies any chest pain or shortness of breath, nausea or vomiting, diarrhea or constipation, dizziness or headache. we await results of MRI of the brain thoracic and lumbar spine. Appreciate neurosurgery's evaluation and recommendations. Objective BP (!) 146/79 Pulse 95 Temp 98.2 F (36.8 C) (Oral) Resp 16 Ht 5' 6" Wt 78.9 kg (174 lb) SpO2 95% BMI 28.08 kg/m Physical Examination General Appearance: alert; well appearing; in no acute distress HEENT: Head- normocephalic; Eyes- EOMI, sclera anicteric; Throat- mucous membranes moist Cardiovascular: regular rate and rhythm; normal S1, S2; no murmurs, rubs, clicks or gallops; peripheral edema absent Respiratory: lungs clear to auscultation; without wheezes, rales or rhonchi; on room air Abdomen: soft, non-tender, non-distended Neurological: oriented x 1; normal speech; no focal findings or movement disorder noted Musculoskeletal: no significant deformity or tenderness to palpation Skin: normal coloration Psych: normal mood and affect [facility] [place] Assessment and Plan Kristen Mann is a 73 y.o. female patient of Olivier Acosta MD with history of anxiety, hypotension, diabetes presented to [facility] on 12/10/2023 with reccurent UTI, imbalance . Possible hydrocephalus Commensurate ventricular system enlargement. Noted on ct here today as above Will get MRI I reviewed CT from outside hospital with patient and 11/22/2023 dated reports suggests hydrocephalus Will consult NSG Syptoms have been going for 1 month - promptin her to be enrolled in jail Symptoms are classic with gait, uti and altered mentation Will obtain MRI 12/11/2023. Still awaiting MRI results of the brain thoracic and lumbar spine as well as neurosurgical consultation. Symptoms have improved this a.m. and will consult PT and OT for evaluation and recommendations. 12/12/2023. Still awaiting MRI of brain thorax and lumbar spine and appreciate neurosurgery's ongoing evaluation and recommendations. UTI reccurent Ua suggestive Emperic rocphin Cultures pending 12/11/2023. Patient's symptoms have improved this a.m. and remains on IV Rocephin awaiting urine cultures and sensitivities. 12/12/2023. Symptoms continue to improve and remains on IV Rocephin Diabetes Sliding scale 12/11/2023. Blood glucose is controlled and will continue with sliding scale insulin as needed. 12/12/2023. Blood glucose is controlled on current regimen. Anxiety Venlafaxine Hypotension Midiordrine 12/11/2023. Patient now mildly hypertensive and will decrease midodrine to 2.5 mg 3 times daily. 12/12/2023. Blood pressure is now well-controlled on lower dose of midodrine 2.5 mg 3 times daily. HLD No longer taking zetia Intractable nausea and vomiting 12/11/2023. Symptoms improved this a.m. with as needed antiemetics. Doubt secondary to hydrocephalus. 12/12/2023. Patient with intermittent nausea without vomiting and symptoms continue to improve. Discharge Planning Medically Stable for Discharge Date: TBD Patient requires continued hospitalization due to: Neurosurgical evaluation Discharge Location: [facility] Quality Measures DVT Prophylaxis: lovenox Zimmerman Catheter: absent Code Status full code Primary Contact Information Subjective Patient seen and examined this a.m. at bedside. Patient is currently awake and alert and denies any chest pain or shortness of breath, nausea or vomiting, diarrhea or constipation, dizziness or headache. Patient states her nausea has completely subsided and is able to tolerate p.o. well.. Patient denies any headache or visual changes, dizziness, and we await results of MRI of the brain thoracic and lumbar spine. Appreciate neurosurgery's evaluation and recommendations. Objective BP 134/75 Pulse 91 Temp 97.9 F (36.6 C) (Oral) Resp 16 Ht 5' 6" Wt 78.9 kg (174 lb) SpO2 92% BMI 28.08 kg/m Physical Examination General Appearance: alert; well appearing; in no acute distress HEENT: Head- normocephalic; Eyes- EOMI, sclera anicteric; Throat- mucous membranes moist Cardiovascular: regular rate and rhythm; normal S1, S2; no murmurs, rubs, clicks or gallops; peripheral edema absent Respiratory: lungs clear to auscultation; without wheezes, rales or rhonchi; on room air Abdomen: soft, non-tender, non-distended Neurological: oriented x 1; normal speech; no focal findings or movement disorder noted Musculoskeletal: no significant deformity or tenderness to palpation Skin: normal coloration Psych: normal mood and affect [facility] Inpatient Progress Note DATE OF SERVICE: 12/12/2023 ATTENDING PHYSICIAN: Vipul Guerrero DO PHYSICAL EXAMINATION: Motor strength: Motor Deltoid Biceps Triceos Wrist Extensors Wrist Flexors Interosseous [employer] Right 5 5 5 5 5 5 5 Left 5 5 5 5 5 5 5 Motor Hip Flexion Knee Extension Knee Flexion Foot Dorsiflexion Foot inversion Foot Eversion Foot plantarflexion Extensor Hallucis Longus Right 5 5 5 5 5 5 5 5 Left 5 5 5 5 5 5 5 5 Sensory exam: intact and symmetric to light touch bilaterally Deep tendon reflexes: Brachioradialis Biceps Triceps Patellar Achilles Gomez's Babinski Right 2 2 2 2 2 negative down Left 2 2 2 2 2 negative down IMAGING: MRI still pending ASSESSMENT: This is a 73 y.o.-year-old female with retracted nausea, incidental finding of compression fracture in the lumbar spine. PLAN: - PT/OT to evaluate, up as tolerated -Will await MRI scanning - Thank you for allowing us to participate in the healthcare management of your patient Grand total 30 minutes was spent evaluating the imaging, speaking with the patient as well as updating ancillary teams. Vipul Guerrero DO 12/12/2023 9:58 AM [facility] [place] Assessment and Plan Kristen Mann is a 73 y.o. female patient of Olivier Acosta MD with history of anxiety, hypotension, diabetes presented to [facility] on 12/10/2023 with reccurent UTI, imbalance . Possible hydrocephalus Commensurate ventricular system enlargement. Noted on ct here today as above Will get MRI I reviewed CT from outside hospital with patient and 11/22/2023 dated reports suggests hydrocephalus Will consult NSG Syptoms have been going for 1 month - promptin her to be enrolled in jail Symptoms are classic with gait, uti and altered mentation Will obtain MRI 12/11/2023. Still awaiting MRI results of the brain thoracic and lumbar spine as well as neurosurgical consultation. Symptoms have improved this a.m. and will consult PT and OT for evaluation and recommendations. UTI reccurent Ua suggestive Emperic rocphin Cultures pending 12/11/2023. Patient's symptoms have improved this a.m. and remains on IV Rocephin awaiting urine cultures and sensitivities. Diabetes Sliding scale 12/11/2023. Blood glucose is controlled and will continue with sliding scale insulin as needed. Anxiety Venlafaxine Hypotension Midiordrine 12/11/2023. Patient now mildly hypertensive and will decrease midodrine to 2.5 mg 3 times daily. HLD No longer taking zetia Intractable nausea and vomiting 12/11/2023. Symptoms improved this a.m. with as needed antiemetics. Doubt secondary to hydrocephalus. Discharge Planning Medically Stable for Discharge Date: TBD Patient requires continued hospitalization due to: Neurosurgical evaluation Discharge Location: [facility] Quality Measures DVT Prophylaxis: lovenox Zimmerman Catheter: absent Code Status full code Primary Contact Information Subjective Patient seen and examined this a.m. at bedside. Patient is currently awake and alert and denies any chest pain or shortness of breath, nausea or vomiting, diarrhea or constipation, dizziness or headache. Patient states her nausea has completely subsided this a.m and was able to tolerate breakfast well. Patient denies any headache or visual changes, dizziness, and we await results of MRI of the brain thoracic and lumbar spine. Also await neurosurgical recommendations. Objective BP (!) 156/80 Pulse 91 Temp 98.2 F (36.8 C) (Oral) Resp 17 Ht 5' 6" Wt 78.9 kg (174 lb) SpO2 94% BMI 28.08 kg/m Physical Examination General Appearance: alert; well appearing; in no acute distress HEENT: Head- normocephalic; Eyes- EOMI, sclera anicteric; Throat- mucous membranes moist Cardiovascular: regular rate and rhythm; normal S1, S2; no murmurs, rubs, clicks or gallops; peripheral edema absent Respiratory: lungs clear to auscultation; without wheezes, rales or rhonchi; on room air Abdomen: soft, non-tender, non-distended Neurological: oriented x 1; normal speech; no focal findings or movement disorder noted Musculoskeletal: no significant deformity or tenderness to palpation Skin: normal coloration Psych: normal mood and affect Nutrition Care Initial Assessment Reason for visit: Nursing Referral for Unplanned weight loss 10 pounds or more in the past month Nutrition Diagnosis: Unintended wt loss related to emesis at home (every time she stood up) AEB 15# wt loss in 1 month per pt report. *Pt is at risk for malnutrition. Nutrition Intervention/Prescription: Modify Diet Diet order: recommend CHO consistent d/t diabetic Oral nutrition supplement: pt declines Nutrition Goals: Tolerate diet with PO intakes >75% most meals X next 4 days Start Date:12/11/2023 Expected End Date:12/15/2023 Nutrition Education: RDN encouraged po Assessment: Pertinent clinical information: Possible hydrocephalus Commensurate ventricular system enlargement UTI Past Medical History: Diagnosis Date Asthma Atopy Diabetes ([facility]) Eczema GERD (gastroesophageal reflux disease) Granulomatous disease ([facility]) Hyperlipidemia Migraine headache Recurrent UTI 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[facility]) Tachycardia Past Surgical History: Procedure Laterality Date APPENDECTOMY CARDIAC CATHETERIZATION CARDIAC PACEMAKER PLACEMENT SECTION, CLASSIC x2 CHOLECYSTECTOMY OPEN EP - DEVICE N/A 12/20/2020 Procedure: Loop Recorder Implant; Surgeon: Lenard Das MD; Location: EP LAB; Service: Cardiovascular EP - DEVICE N/A 12/15/2021 Procedure: Pacemaker Implant (Dual PPM 12-15-21 at 0600/0800); Surgeon: Lenard Das MD; Location: EP LAB; Service: Cardiovascular EP - DEVICE N/A 05/08/2022 Procedure: Pacemaker Lead Revision; Surgeon: Radha Hubbard DO; Location: [facility] EP LAB; Service: Cardiovascular EYE SURGERY HYSTERECTOMY KYPHOPLASTY N/A 07/08/2023 Procedure: KYPHOPLASTY; Surgeon: Brooklyn Lynn MD; Location: Main OR; Service: Neurological Height: 5' 6" Current weight: 78.9 kg (174 lb) BMI Body mass index is 28.08 kg/m . Weight hx: Per pt- 15# loss in 1 month, was 190# 1 month ago. So 7% loss. RDN weighed on bed scales 181.5#, likely had more items on bed than should when wt taken. Wt Readings from Last 10 Encounters: 12/10/23 78.9 kg (174 lb) 10/25/23 86.2 kg (190 lb) 10/22/23 86.2 kg (190 lb) 09/30/23 86.2 kg (190 lb) 08/25/23 83 kg (183 lb) 08/10/23 83 kg (183 lb) 07/05/23 88 kg (194 lb) 07/07/23 88 kg (194 lb) 05/04/23 81.6 kg (180 lb) 03/23/23 82 kg (180 lb 12.8 oz) Current diet order: regular Recent intake: 75-100% Current intake likely meets estimated needs. Nutrition Related Allergies/Intolerances: No Nutrition Related Allergies noted Cultural or Gnosticism Dietary Needs :No Cultural or Gnosticism Dietary needs noted Patient/family comments: Pt reports for 1 month, every time her feet "hit the floor" she threw up, so would throw up several times per day. But appetite was good at home and here. Pt states she is still having emesis here, but RN in the room reports no emesis at all today and is eating great. Pt declines supplements and RN tells her that was good choice. Difficulty Chewing or Swallowing: No Fluid Status: WNL Skin Integrity: Intact GI Function: LBM: 4/5 Physical Appearance: Nutrition Focus Physical Exam Type: Hands-On Regions Assessed Orbital: WNL Temporal: moderate muscle depletion Upper Arm: WNL Labs: Recent Labs 12/10/23 1335 12/11/23 0655 NA 140 139 K 3.4* 2.9* BICARB 27 24 CL 100 103 GLUCOSE 245* 181* BUN 16 15 CREATININE 1.47* 1.17 ALBUMIN 3.6 3.1* LIPASE 24 -- K+ decreased Lab Results Component Value Date HGBA1C 11.6 (H) 09/30/2023 Home Medications Reviewed: Yes Scheduled Meds: cefTRIAXone (ROCEPHIN) IVPB 1,000 mg Intravenous Q24H enoxaparin (LOVENOX) injection 40 mg Subcutaneous Daily insulin glargine 30 Units Subcutaneous Nightly lispro insulin 0-15 Units Subcutaneous at bedtime insulin lispro 0-30 Units Subcutaneous TID AC meclizine 25 mg Oral Q6H VICTORINA midodrine 5 mg Oral TID potassium chloride 20 mEq Intravenous Q2H sodium chloride (PF) 5 mL Intravenous Q8H VICTORINA venlafaxine 150 mg Oral Daily Continuous Infusions: sodium chloride 0.9 % sodium chloride 0.9 % sodium chloride 0.9 % 125 mL/hr (12/11/23 0846) Nutrient Depleting Medications: N/A Estimated Energy Needs 1900-2000kcals (30kcals/kg) Total Protein Estimated Needs 78gms (1.2gms/kg) Antonietta Griffin RD documented in this encounter [facility] 12-16-2023 Hospital course Narrative [facility] [place] -- [facility] Kristen Mann Admitted: 12/10/2023 Discharge Date: 12/16/23 PCP Handoff Recommended Outpatient Testing None Results Pending At Discharge None Clinical Summary Kristen Mann is a 73 y.o. female patient of Olivier Acosta MD with history of anxiety, hypotension, diabetes presented to [facility] on 12/10/2023 with reccurent UTI, imbalance . Possible hydrocephalus Commensurate ventricular system enlargement. Noted on ct here today as above Will get MRI I reviewed CT from outside hospital with patient and 11/22/2023 dated reports suggests hydrocephalus Will consult NSG Syptoms have been going for 1 month - promptin her to be enrolled in jail Symptoms are classic with gait, uti and altered mentation Will obtain MRI 12/11/2023. Still awaiting MRI results of the brain thoracic and lumbar spine as well as neurosurgical consultation. Symptoms have improved this a.m. and will consult PT and OT for evaluation and recommendations. 12/12/2023. Still awaiting MRI of brain thorax and lumbar spine and appreciate neurosurgery's ongoing evaluation and recommendations. 12/13 MRI results reviewed with the patient; no obstructive hydrocephalus and nausea not explained but the imaging findings. No urgent surgical intervention indicated UTI reccurent Ua suggestive Emperic rocphin Cultures pending 12/11/2023. Patient's symptoms have improved this a.m. and remains on IV Rocephin awaiting urine cultures and sensitivities. 12/12/2023. Symptoms continue to improve and remains on IV Rocephin 12/13 repeat urine culture no growth Diabetes Sliding scale 12/11/2023. Blood glucose is controlled and will continue with sliding scale insulin as needed. 12/12/2023. Blood glucose is controlled on current regimen. Anxiety Venlafaxine Hypotension Midiordrine 12/11/2023. Patient now mildly hypertensive and will decrease midodrine to 2.5 mg 3 times daily. 12/12/2023. Blood pressure is now well-controlled on lower dose of midodrine 2.5 mg 3 times daily. dose increased again to 5 mg po tid HLD No longer taking zetia Intractable nausea and vomiting 12/11/2023. Symptoms improved this a.m. with as needed antiemetics. Doubt secondary to hydrocephalus. 12/12/2023. Patient with intermittent nausea without vomiting and symptoms continue to improve. Sever orthostatic hypotension Patient also get the nausea and vomiting associated with the BP drop Add fludrocortisone 0.1 mg po , and increase midodrine to 5 mg po tid GAGANDEEP POA Related to hemodynamic changes Off IV fluid Hypokalemia, POA Resolved PT recommendations for SNF placement for therapy needs. Patient is refusing SNF placement as well as refusing any HHC. States she will return to her assisted living in [place] and continue her therapy with them Discharge Medications Discharge Medications Modified Medications Details midodrine 5 MG tablet Commonly known as: PROAMATINE What changed: how much to take Another medication with the same name was removed. Continue taking this medication, and follow the directions you see here. Take 1 (one) tablet (5 mg total) by mouth 3 (three) times a day . Quantity: 90 tablet Medications To Continue Details acetaminophen 650 MG CR tablet Commonly known as: TYLENOL ER Take 1 (one) tablet (650 mg total) by mouth every 4 (four) hours as needed for pain or fever . BD AutoShield Duo Pen Needle 30 gauge x 3/16" Ndle Generic drug: pen needle,diabetic dual safty bisacodyL 10 mg suppository Commonly known as: DULCOLAX Insert 1 (one) suppository (10 mg total) into the rectum daily as needed for constipation . cholecalciferol (vitamin D3) 50 mcg (2,000 unit) Tab Take 1 (one) tablet (2,000 Units total) by mouth nightly . ezetimibe 10 mg tablet Commonly known as: ZETIA Take 1 (one) tablet (10 mg total) by mouth daily . fludrocortisone 0.1 mg tablet Commonly known as: FLORINEF Take 1 (one) tablet (0.1 mg total) by mouth daily . Gemtesa 75 mg Tab Generic drug: vibegron Take 1 (one) tablet (75 mg total) by mouth daily . insulin aspart U-100 100 unit/mL injection Commonly known as: NovoLOG Sliding scale BS 151-200 = 2 units, 201-250 = 4 units, 251-300 = 6 units, 301-350= 8 units, 351-400 = 10 units before meals and at Bedtime. If <70 or >400, call physician . insulin glargine 100 unit/mL injection Commonly known as: LANTUS Inject 40 (forty) Units under the skin nightly . meclizine 12.5 mg tablet Commonly known as: ANTIVERT Take 1 (one) tablet (12.5 mg total) by mouth 2 (two) times a day as needed for nausea . metoclopramide 5 MG tablet Commonly known as: REGLAN Take 1 (one) tablet (5 mg total) by mouth 2 (two) times a day as needed . ondansetron 4 MG tablet Commonly known as: ZOFRAN Take 1 (one) tablet (4 mg total) by mouth 2 (two) times a day as needed for nausea . polyethylene glycol 17 gram powder Commonly known as: MIRALAX Take 17 (seventeen) g by mouth daily . potassium chloride SA 20 MEQ tablet Commonly known as: K-DUR,KLOR-CON Take 1 (one) tablet (20 mEq total) by mouth 2 (two) times a day . scopolamine 1 mg over 3 days patch Commonly known as: TRANSDERM-SCOP Place 1 (one) patch on the skin every 72 hours . senna 8.6 mg tablet Commonly known as: SENOKOT Take 1 (one) tablet (8.6 mg total) by mouth daily . sodium phosphates 19-7 gram/118 mL Enem Commonly known as: FLEETS ADULT Insert 1 (one) each into the rectum daily as needed Reasons: constipation. venlafaxine 150 MG 24 hr capsule Commonly known as: EFFEXOR-XR Take 1 (one) capsule (150 mg total) by mouth daily . Physician(s) Follow Up: No follow-up provider specified. Condition at Discharge: Stable Disposition: Home I reviewed discharge recommendations with the patient in person. Patient instructions, including activity, were given to the patient/family at discharge. On day of discharge I saw Kristen Mann and spent: > 30 minutes on discharge. Completed by: Leila Banuelos MD on 12/16/23, 10:55 AM documented in this encounter [facility] 12-15-2023 Note Formatting of this n ote might be different from the original. Problem: Actual or potential alteration in health Goal: Absence of healthcare acquired conditions Outcome: Partially Met Goal: Knowledge of Interdisciplinary Plan of Care Outcome: Partially Met Goal: Knowledge of Enviroment Outcome: Partially Met Problem: Pain Goal: Reduced pain sensation Outcome: Partially Met Goal: Control of acute pain to acceptable level Outcome: Partially Met Goal: Able to cope with pain Outcome: Partially Met Goal: Able to achieve maximum level of physical functioning Outcome: Partially Met Goal: Able to achieve maximum level of psychosocial functioning Outcome: Partially Met Problem: Falls, Risk of Goal: Absence of falls Outcome: Partially Met Goal: Absence of physical injury Outcome: Partially Met [facility] 12-15-2023 Note Formatting of this n ote is different from the original. Neurosurgery Sign-Off Consulting Neurosurgeon: Dr Lynn Diagnosis: UTI, intractable nausea vomiting with hypotension, s/p Kyphoplasty, stable lumbar, thoracic pain Plan: No urgent surgical intervention indicated. Further workup of nausea/vomiting per admitting team. Follow-up: With Dr. Lynn 3-4 weeks Medications: Per primary team DVT Prophylaxis: Per primary team Braces: Not Applicable Activity: Up as tolerated Discharge instructions updated with appropriate follow-up. The Neurosurgery service will sign off at this time. Please re-consult with any questions, concerns or clinical updates. [facility] 12-15-2023 Consult note Associated Order (s): IP CONSULT TO CARE MANAGEMENT Care Management Consult Note Date: 12/15/2023 Time: 2:00 PM Patient Name: Kristen Mann Date of : 1950 Reason for Consult: Discharge Plan: Plan A: Home Discharging Transportation Plan: Discharge Plan Status: Consult received. Assessment and Background Information: Living Arrangements: Alone Caregiver Identified: No Support Systems: Children Assistance Needed: yes Type of Residence: Assisted living, residential Prior to Admission Home Care Services: No Current Home Equipment: Walker, Cane Holistic Assessment Medication adherence problem:: No History of falls in last 6 months:: No Family aware of the patient's advance care planning wishes:: Yes Do you have any cultural/spiritual connections or beliefs that would impact how we deliver your care?: No Chronic pain:: (!) Yes Location of chronic pain:: back Chronic pain timing:: Constant Chronic pain severity:: 7 Limitation of routine activities due to chronic pain:: No [facility] 12-15-2023 Consult note Associated Order (s): IP CONSULT TO CARE MANAGEMENT Care Management Consult Note Date: 12/15/2023 Time: 2:00 PM Patient Name: Kristen Mann Date of : 1950 Reason for Consult: Discharge Plan: Plan A: Home Discharging Transportation Plan: Discharge Plan Status: Consult received. Assessment and Background Information: Living Arrangements: Alone Caregiver Identified: No Support Systems: Children Assistance Needed: yes Type of Residence: Assisted living, residential Prior to Admission Home Care Services: No Current Home Equipment: Walker, Cane Holistic Assessment Medication adherence problem:: No History of falls in last 6 months:: No Family aware of the patient's advance care planning wishes:: Yes Do you have any cultural/spiritual connections or beliefs that would impact how we deliver your care?: No Chronic pain:: (!) Yes Location of chronic pain:: back Chronic pain timing:: Constant Chronic pain severity:: 7 Limitation of routine activities due to chronic pain:: No Occupational Therapy OCCUPATIONAL THERAPY EVALUATION Dx: Possible hydrocephalus, UTI, diabetes, anxiety, HLD, intractable nausea and vomiting, severe orthostatic hypotension Skilled Therapy Needs After Discharge Anticipate Resolution of Current Assessment Limitations Including: Mechanical Barriers, Social Support Are Skilled Therapy Services Needed After Discharge: Yes Intensity of Skilled Therapy: Up to 5 days per week Anticipated Duration of Skilled Therapy: Duration 10 - 30 days DME Recommendation: To be determined at next level of care Rehab Potential: Fair Outcomes Measures Prior Function Daily Activity Raw Score: 24 Prior Function Daily Activity % Impaired: 0% AM-PAC Daily Activity Raw Score: 16 AM-PAC Daily Activity % Impaired: 53.32% Occupational Therapy Assessment The patient's current functional participation deficits are LE dressing, grooming, UE dressing, bathing, toileting, home management, meal preparation, functional mobility, driving. This reduced independence will limit their life roles of premorbid level individual. The patient's co morbidities do affect patient performance in the above activities and roles. The performance deficits are a result of musculoskeletal impairment(s) in generalized debility including strength, balance, acitvity tolerance, pain, safety, insight, and knowledge deficit. The patient's family / caregiver support is a [employer] for return to prior level of function. The patient's compliance is a [employer] to return to prior level of function. During the assessment, minimal to moderate modification of task was required and several treatment options were identified in the plan of care. This consultation required expanded review of the medical and therapy history. Activity Tolerance Activity Tolerance: Tolerates less than 10 min activity with changes in vital signs Therapy Precautions Orthotic Devices: No Weight Bearing Status: WFL General Rehab Precautions: Fall risk Cognition Overall Cognitive Status: Within Functional Limits Arousal/Alertness: Appropriate responses to stimuli Orientation Level: Oriented X4 Executive functioning: Insight Safety Judgment: Decreased awareness of need for assistance, Decreased awareness of need for safety Problem Solving: Assistance required to identify errors made, Assistance required to generate solutions, Assistance required to implement solutions Attention: Attends to quiet environment Hearing Status: WFL Social Interaction: WFL ADL Feeding: Modified independent Upper Body Dressing: Moderate assist (gown management) Lower Body Dressing: Dependent (total assist for clothing management in standing) Bed Mobility Supine to Sit: Minimal assist Sit to Supine: Stand by assist Functional Transfers Sit to Stand: Minimal assist, Moderate assist Additional Assessment Details BP in supine 114/68, sitting 107/69, then 114/72 after sitting a few minutes, standin/54. Patient did not tolerate BP being taken in standing and while waiting for BP to be completed sat down in bed and then took herself to supine. Educated patient verbally on importance of being up to assist with BP tolerance of being out of bed. Educated patient on importance of head of bed being elevated. HOB elevated to 30* at OT exit. Pt vomited following standing attempt, RN was notified. Pt left in bed, call light within reach, and alarm turned on. Home Living Obtained Home Living and PLOF info from: Patient Lives With: Alone Type of Home: House Home Layout: One level Steps to enter home: Yes Rails to enter home: 2 rails Number of stairs to enter home: 3 Bathroom Shower/Tub: Walk-in shower Bathroom Toilet: Raised Bathroom Equipment: Grab bars in shower, Shower chair Bathroom Accessibility: Accessible Mobility Equipment: Cane, Wheeled walker, Rollator, Wheelchair - manual, Lift chair ADL Equipment: Wood Machinist, Long handled shoe horn Additional Objective Details - Home Living: Laundry in basement - daughter and DIL do laundry Prior Level of Function Level of [place] - Transfers/Ambulation/Mobility: Independent with functional transfers, Independent with household ambulation Level of [place] - ADLs: Independent Level of [place] - Homemaking: Independent Driving: Patient drives Past Medical History: Diagnosis Date Asthma Atopy Diabetes (HCC) Eczema GERD (gastroesophageal reflux disease) Granulomatous disease (HCC) Hyperlipidemia Migraine headache Recurrent UTI 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HCC) Tachycardia Past Surgical History: Procedure Laterality Date APPENDECTOMY CARDIAC CATHETERIZATION CARDIAC PACEMAKER PLACEMENT SECTION, CLASSIC x2 CHOLECYSTECTOMY OPEN EP - DEVICE N/A 12/20/2020 Procedure: Loop Recorder Implant; Surgeon: Lenard Das MD; Location: EP LAB; Service: Cardiovascular EP - DEVICE N/A 12/15/2021 Procedure: Pacemaker Implant (Dual PPM 12-15-21 at 0600/0800); Surgeon: Lenard Das MD; Location: EP LAB; Service: Cardiovascular EP - DEVICE N/A 05/08/2022 Procedure: Pacemaker Lead Revision; Surgeon: Radha Hubbard DO; Location: [facility] EP LAB; Service: Cardiovascular EYE SURGERY HYSTERECTOMY KYPHOPLASTY N/A 07/08/2023 Procedure: KYPHOPLASTY; Surgeon: Brooklyn Lynn MD; Location: Main OR; Service: Neurological For complete objective data, detailed plan of care and patient education refer to: OT Evaluation flowsheet, OT Evaluation and Treatment flowsheet, OT Treatment flowsheet, patient Plan of Care, Plan of Care progress note, and Patient Education. This note stands as the current Discharge Summary upon patient discharge from the hospital or completion of Occupational Therapy Plan of Care. Physical Therapy PHYSICAL THERAPY EVALUATION and TREATMENT NOTE PHYSICAL THERAPY EVALUATION Skilled Therapy Needs After Discharge Are Skilled Therapy Services Needed After Discharge: Yes Intensity of Skilled Therapy: Up to 5 days per week Anticipated Duration of Skilled Therapy: Duration 10 - 30 days Rehab Potential: Good, Fair, For goals Outcomes Measures Prior Function - Basic Mobility Raw Score: 24 Points Prior Function - Basic Mobility % Impaired: 0% AM-PAC Basic Mobility Raw Score: 14 Points AM-PAC Basic Mobility % Impaired: 53.86% Physical Therapy Assessment History: Dx: Possible hydrocephalus Commensurate ventricular system enlargement. UTI, The following factors influence the patient's participation in the PT plan of care: Personal Factors: Age, Limited Baseline Mobility, Decreased Insight Environmental Factors: Steps to enter home, Lives alone The following co-morbidities (from this admission or prior) influence the patient's participation in this plan of care: DM, CVA, asthma Number of History elements affecting this patient's PT plan of care: 3 or more Examination of Body Systems: The patient presents with: Musculoskeletal impairments: Strength, Functional Endurance Neurologic Impairments: Balance Cardiopulmonary Impairments: Activity Tolerance, Blood Pressure Regulation with Activity. These impairments result in limitations of Gait, Functional Transfers, Stair-Climbing, Activity Tolerance. These impairments result in restrictions of Household mobility, Community mobility. Number of Body Systems elements affecting this patient's PT plan of care: 3 or more. Clinical Presentation: The patient's clinical presentation for this PT evaluation is evolving with changing characteristics as evidenced by current PT documentation. Activity Tolerance Activity Tolerance: Tolerates 20 - 30 min activity with multiple rests Therapy Precautions General Rehab Precautions: Fall risk Balance Assessment Sitting Balance - Static: Stand by assist, Contact guard assist Standing Balance - Static: Minimal assist, Moderate assist Journeyman [employer] - Standing Static: wheeled walker Bed Mobility Rolling: Stand by assist Supine to Sit: Minimal assist, Head of bed elevated Sit to Supine: Stand by assist Journeyman [employer]: bedrails Transfers Sit to Stand: Minimal assist, Moderate assist Journeyman [employer]wright: wheeled walker Gait/Locomotion Gait Assistance: (Unable to ambulate d/t decreased BP in standing) Home Living Obtained Home Living and PLOF info from: Patient Lives With: Alone Type of Home: House Home Layout: One level Steps to enter home: Yes Rails to enter home: 2 rails Number of stairs to enter home: 3 Bathroom Shower/Tub: Walk-in shower Bathroom Toilet: Raised Bathroom Equipment: Grab bars in shower, Shower chair Bathroom Accessibility: Accessible Mobility Equipment: Cane, Wheeled walker, Rollator, Wheelchair - manual, Lift chair ADL Equipment: Wood Machinist, Long handled shoe horn Additional Objective Details - Home Living: Laundry in basement - daughter and DIL do laundry Prior Level of Function Level of [place] - Transfers/Ambulation/Mobility: Independent with functional transfers, Independent with household ambulation, Independent with community ambulation Subjective Impression - Prior Function: Patient uses rollator for gait. Per chart patient lives in [facility] PHYSICAL THERAPY TREATMENT NOTE Total Treatment Time (Total Session Time): 28 Minutes Total Timed Code Treatment Minutes: 8 Minutes Therapeutic Activities Bed Mobility Skilled Intervention Provided: verbal cues, tactile cues, environmental setup/modification, facilitation For: compensatory strategies Resulting in: neutral response to intervention Transfers Skilled Intervention Provided: verbal cues, tactile cues, environmental setup/modification, facilitation For: UE positioning, compensatory strategies Resulting in: improved awareness Additional Treatment Details BP in supin 114/68, sitting 107/69, then 114/72 after sitting a few minutes, standin/54. Patient did not tolerate BP being taken in standing and while waiting for BP to be completed sat down in bed and then took herself to supine. Educated patient verbally on importance of being up to assist with BP tolerance of being out of bed. Educated patient on importance of head of bed being elevated. Past Medical History: Diagnosis Date Asthma Atopy Diabetes (HCC) Eczema GERD (gastroesophageal reflux disease) Granulomatous disease (HCC) Hyperlipidemia Migraine headache Recurrent UTI 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HCC) Tachycardia Past Surgical History: Procedure Laterality Date APPENDECTOMY CARDIAC CATHETERIZATION CARDIAC PACEMAKER PLACEMENT SECTION, CLASSIC x2 CHOLECYSTECTOMY OPEN EP - DEVICE N/A 12/20/2020 Procedure: Loop Recorder Implant; Surgeon: Lenard Das MD; Location: EP LAB; Service: Cardiovascular EP - DEVICE N/A 12/15/2021 Procedure: Pacemaker Implant (Dual PPM 12-15-21 at 0600/0800); Surgeon: Lenard Das MD; Location: EP LAB; Service: Cardiovascular EP - DEVICE N/A 05/08/2022 Procedure: Pacemaker Lead Revision; Surgeon: Radha Hubbard DO; Location: [facility] EP LAB; Service: Cardiovascular EYE SURGERY HYSTERECTOMY KYPHOPLASTY N/A 07/08/2023 Procedure: KYPHOPLASTY; Surgeon: Brooklyn Lynn MD; Location: Main OR; Service: Neurological For complete objective data, detailed plan of care and patient education refer to: PT Evaluation flowsheet, PT Evaluation and Treatment flowsheet, PT Treatment flowsheet, patient Plan of Care, Plan of Care progress note, and Patient Education. This note stands as the current Discharge Summary upon patient discharge from the hospital or completion of Physical Therapy Plan. Associated Order(s): IP CONSULT TO NEUROSURGERY HPI: Kristen Mann is a 73 y.o. female who presents with intractable nausea and vomiting, the CT scan of the abdomen pelvis that was reconstructed to show compression fractures, patient reports for this nausea and back pain. No bowel or dysfunction or saddle anesthesias, reported. Patient is currently awaiting MRI scans. Medications: Current Facility-Administered Medications Medication Dose Route Frequency Provider Last Rate Last Admin acetaminophen (TYLENOL) tablet 650 mg 650 mg Oral Q4H PRN Calvin Baker MD 650 mg at 12/11/23 0157 cefTRIAXone (ROCEPHIN) IVPB 1 g (premix) 1,000 mg Intravenous Q24H Calvin Baker MD 100 mL/hr at 12/11/23 0913 1,000 mg at 12/11/23 0913 enoxaparin (LOVENOX) syringe 40 mg 40 mg Subcutaneous Daily Calvin Baker MD 40 mg at 12/11/23 0827 insulin glargine (LANTUS) injection 30 Units 30 Units Subcutaneous Nightly Calvin Baker MD 30 Units at 12/10/232011 insulin lispro (AdmeLOG,HumaLOG) injection 0-15 Units 0-15 Units Subcutaneous at bedtime Calvin Baker MD 7 Units at 12/10/232012 insulin lispro (AdmeLOG,HumaLOG) injection 0-30 Units 0-30 Units Subcutaneous TID AC Calvin Baker MD 2 Units at 12/11/23 0811 meclizine (ANTIVERT) tablet 25 mg 25 mg Oral Q6H [facility] Mahamed Grissom DO midodrine (PROAMATINE) tablet 5 mg 5 mg Oral TID Calvin Baker MD 5 mg at 12/10/232011 ondansetron (ZOFRAN-ODT) disintegrating tablet 4 mg 4 mg Oral Q6H PRN Calvin Baker MD Or ondansetron (ZOFRAN) injection 4 mg 4 mg Intravenous Q6H PRN Calvin Baker MD 4 mg at 12/11/23 0851 potassium chloride 20 mEq in 100 mL IVPB 20 mEq Intravenous Q2H Mahamed Grissom DO 50 mL/hr at 12/11/23 0900 20 mEq at 12/11/23 0900 sodium chloride (PF) (NS) flush 5 mL 5 mL Intravenous PRN Urbano Reis MD And sodium chloride 0.9% (NS) 0-150 mL/hr Intravenous PRN Urbano Reis MD sodium chloride (PF) (NS) flush 5 mL 5 mL Intravenous PRN Calvin Baker MD And sodium chloride (PF) (NS) flush 5 mL 5 mL Intravenous Q8H [facility] Calvin Baker MD 5 mL at 12/11/23 0554 And sodium chloride 0.9% (NS) 0-150 mL/hr Intravenous PRN Calvin Baker MD sodium chloride 0.9% (NS) 125 mL/hr Intravenous Continuous Jaciel Mahamed Tad, DO 125 mL/hr at 12/11/23 0846 125 mL/hr at 12/11/23 0846 traZODone (DESYREL) tablet 50 mg 50 mg Oral Nightly PRN Calvin Baker MD venlafaxine (EFFEXOR-XR) 24 hr capsule 150 mg 150 mg Oral Daily Calvin Baker MD 150 mg at 12/11/23 0827 Allergies: Allergies Allergen Reactions Morphine Shortness Of Breath Penicillins Rash Sulfa (Sulfonamide Antibiotics) Hives Medical, Surgical, Family and Socioeconomic History reviewed. Review of Systems: Constitutional: Negative for fever, chills, fatigue and unexpected weight change. HENT: Negative for hearing loss, sore throat and facial swelling. Eyes: Negative for pain and discharge. Respiratory: Negative for cough and shortness of breath. Cardiovascular: Negative for chest pain. Gastrointestinal: Negative for nausea, vomiting, diarrhea and constipation. Musculoskeletal: noted in HPI Skin: Negative for pallor and rash. Neurological: Negative for seizures, syncope and numbness. Hematological: Does not bruise/bleed easily. Psychiatric/Behavioral: Negative for behavioral problems. The patient is not nervous/anxious. Physical Exam: Vitals: BP (!) 156/80 Pulse 91 Temp 98.2 F (36.8 C) (Oral) Resp 17 Ht 5' 6" Wt 78.9 kg (174 lb) SpO2 94% BMI 28.08 kg/m Nursing note and vitals reviewed. Constitutional: Oriented to person, place, and time. Appears well-developed and well-nourished. No distress. Head: Normocephalic and atraumatic. Eyes: Conjunctivae and EOM are normal. Pulmonary/Chest: Effort normal. No respiratory distress. Skin: Skin is warm and dry. No rash noted. Psychiatric: Normal mood and affect. Behavior is normal Neurological: Cranial nerves II through XII are intact. Motor strength: Motor Deltoid Biceps Triceos Wrist Extensors Wrist Flexors Interosseous [employer] Technology Professional Right 5 5 5 5 5 5 5 Left 5 5 5 5 5 5 5 Motor Hip Flexion Knee Extension Knee Flexion Foot Dorsiflexion Foot inversion Foot Eversion Foot plantarflexion Extensor Hallucis Longus Right 5 5 5 5 5 5 5 5 Left 5 5 5 5 5 5 5 5 Sensory exam: intact and symmetric to light touch bilaterally Deep tendon reflexes: Brachioradialis Biceps Triceps Patellar Achilles Gomez's Babinski Right 2 2 2 2 2 negative down Left 2 2 2 2 2 negative down No clonus B/L. Finger to nose test intact, no dysmetria No dysdiadochokinesia upon rapid alternating movements. Gait is normal with no ataxia. Spurlings sign - B/L L'Hermittes sign - Straight leg raise - B/L Patricks sign - B/L Gaenslen's sign - B/L Alignment: overall preserved sagittal balance Musculoskeletal: Unremarkable Imaging: Assessment: 1. Dizziness 2. NPH (normal pressure hydrocephalus) (HCC) 3. Nausea and vomiting, unspecified vomiting type 4. Complicated UTI (urinary tract infection) 5. Elevated troponin Extensive discussion was undertaken with the patient regarding the symptoms and physical exam, imaging was shown and described to the patient in great detail. Neurologically intact Patient demonstrated full understanding of the imaging and discussion. Plan: 1. This point we still await MRI scan of the thoracic and lumbar spines 2. Further recommendations to come after the MRI scans are performed. Thank you for allowing me to participate in healthcare management of your patient Grand total of 1 hour was spent evaluating the imaging, examining the patient and updating plan of care Vipul Guerrero DO 12/11/2023 documented in this encounter [facility] 12-15-2023 Consult note Formatting of th is note is different from the original. Occupational Therapy OCCUPATIONAL THERAPY EVALUATION Dx: Possible hydrocephalus, UTI, diabetes, anxiety, HLD, intractable nausea and vomiting, severe orthostatic hypotension Skilled Therapy Needs After Discharge Anticipate Resolution of Current Assessment Limitations Including: Mechanical Barriers, Social Support Are Skilled Therapy Services Needed After Discharge: Yes Intensity of Skilled Therapy: Up to 5 days per week Anticipated Duration of Skilled Therapy: Duration 10 - 30 days DME Recommendation: To be determined at next level of care Rehab Potential: Fair Outcomes Measures Prior Function Daily Activity Raw Score: 24 Prior Function Daily Activity % Impaired: 0% AM-PAC Daily Activity Raw Score: 16 AM-PAC Daily Activity % Impaired: 53.32% Occupational Therapy Assessment The patient's current functional participation deficits are LE dressing, grooming, UE dressing, bathing, toileting, home management, meal preparation, functional mobility, driving. This reduced independence will limit their life roles of premorbid level individual. The patient's co morbidities do affect patient performance in the above activities and roles. The performance deficits are a result of musculoskeletal impairment(s) in generalized debility including strength, balance, acitvity tolerance, pain, safety, insight, and knowledge deficit. The patient's family / caregiver support is a [employer] for return to prior level of function. The patient's compliance is a [employer] to return to prior level of function. During the assessment, minimal to moderate modification of task was required and several treatment options were identified in the plan of care. This consultation required expanded review of the medical and therapy history. Activity Tolerance Activity Tolerance: Tolerates less than 10 min activity with changes in vital signs Therapy Precautions Orthotic Devices: No Weight Bearing Status: WFL General Rehab Precautions: Fall risk Cognition Overall Cognitive Status: Within Functional Limits Arousal/Alertness: Appropriate responses to stimuli Orientation Level: Oriented X4 Executive functioning: Insight Safety Judgment: Decreased awareness of need for assistance, Decreased awareness of need for safety Problem Solving: Assistance required to identify errors made, Assistance required to generate solutions, Assistance required to implement solutions Attention: Attends to quiet environment Hearing Status: WFL Social Interaction: WFL ADL Feeding: Modified independent Upper Body Dressing: Moderate assist (gown management) Lower Body Dressing: Dependent (total assist for clothing management in standing) Bed Mobility Supine to Sit: Minimal assist Sit to Supine: Stand by assist Functional Transfers Sit to Stand: Minimal assist, Moderate assist Additional Assessment Details BP in supine 114/68, sitting 107/69, then 114/72 after sitting a few minutes, standin/54. Patient did not tolerate BP being taken in standing and while waiting for BP to be completed sat down in bed and then took herself to supine. Educated patient verbally on importance of being up to assist with BP tolerance of being out of bed. Educated patient on importance of head of bed being elevated. HOB elevated to 30* at OT exit. Pt vomited following standing attempt, RN was notified. Pt left in bed, call light within reach, and alarm turned on. Home Living Obtained Home Living and PLOF info from: Patient Lives With: Alone Type of Home: House Home Layout: One level Steps to enter home: Yes Rails to enter home: 2 rails Number of stairs to enter home: 3 Bathroom Shower/Tub: Walk-in shower Bathroom Toilet: Raised Bathroom Equipment: Grab bars in shower, Shower chair Bathroom Accessibility: Accessible Mobility Equipment: Cane, Wheeled walker, Rollator, Wheelchair - manual, Lift chair ADL Equipment: Wood Machinist, Long handled shoe horn Additional Objective Details - Home Living: Laundry in basement - daughter and DIL do laundry Prior Level of Function Level of [place] - Transfers/Ambulation/Mobility: Independent with functional transfers, Independent with household ambulation Level of [place] - ADLs: Independent Level of [place] - Homemaking: Independent Driving: Patient drives Past Medical History: Diagnosis Date Asthma Atopy Diabetes (HCC) Eczema GERD (gastroesophageal reflux disease) Granulomatous disease (HCC) Hyperlipidemia Migraine headache Recurrent UTI 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[facility]) Tachycardia Past Surgical History: Procedure Laterality Date APPENDECTOMY CARDIAC CATHETERIZATION CARDIAC PACEMAKER PLACEMENT SECTION, CLASSIC x2 CHOLECYSTECTOMY OPEN EP - DEVICE N/A 12/20/2020 Procedure: Loop Recorder Implant; Surgeon: Lenard Das MD; Location: EP LAB; Service: Cardiovascular EP - DEVICE N/A 12/15/2021 Procedure: Pacemaker Implant (Dual PPM 4--22 at 0600/0800); Surgeon: Lenard Das MD; Location: EP LAB; Service: Cardiovascular EP - DEVICE N/A 05/08/2022 Procedure: Pacemaker Lead Revision; Surgeon: Radha Hubbard DO; Location: [facility] EP LAB; Service: Cardiovascular EYE SURGERY HYSTERECTOMY KYPHOPLASTY N/A 07/08/2023 Procedure: KYPHOPLASTY; Surgeon: Brooklyn Lynn MD; Location: Main OR; Service: Neurological For complete objective data, detailed plan of care and patient education refer to: OT Evaluation flowsheet, OT Evaluation and Treatment flowsheet, OT Treatment flowsheet, patient Plan of Care, Plan of Care progress note, and Patient Education. This note stands as the current Discharge Summary upon patient discharge from the hospital or completion of Occupational Therapy Plan of Care. [facility] 12-15-2023 Consult note Formatting of th is note is different from the original. Physical Therapy PHYSICAL THERAPY EVALUATION and TREATMENT NOTE PHYSICAL THERAPY EVALUATION Skilled Therapy Needs After Discharge Are Skilled Therapy Services Needed After Discharge: Yes Intensity of Skilled Therapy: Up to 5 days per week Anticipated Duration of Skilled Therapy: Duration 10 - 30 days Rehab Potential: Good, Fair, For goals Outcomes Measures Prior Function - Basic Mobility Raw Score: 24 Points Prior Function - Basic Mobility % Impaired: 0% AM-PAC Basic Mobility Raw Score: 14 Points AM-PAC Basic Mobility % Impaired: 53.86% Physical Therapy Assessment History: Dx: Possible hydrocephalus Commensurate ventricular system enlargement. UTI, The following factors influence the patient's participation in the PT plan of care: Personal Factors: Age, Limited Baseline Mobility, Decreased Insight Environmental Factors: Steps to enter home, Lives alone The following co-morbidities (from this admission or prior) influence the patient's participation in this plan of care: DM, CVA, asthma Number of History elements affecting this patient's PT plan of care: 3 or more Examination of Body Systems: The patient presents with: Musculoskeletal impairments: Strength, Functional Endurance Neurologic Impairments: Balance Cardiopulmonary Impairments: Activity Tolerance, Blood Pressure Regulation with Activity. These impairments result in limitations of Gait, Functional Transfers, Stair-Climbing, Activity Tolerance. These impairments result in restrictions of Household mobility, Community mobility. Number of Body Systems elements affecting this patient's PT plan of care: 3 or more. Clinical Presentation: The patient's clinical presentation for this PT evaluation is evolving with changing characteristics as evidenced by current PT documentation. Activity Tolerance Activity Tolerance: Tolerates 20 - 30 min activity with multiple rests Therapy Precautions General Rehab Precautions: Fall risk Balance Assessment Sitting Balance - Static: Stand by assist, Contact guard assist Standing Balance - Static: Minimal assist, Moderate assist Journeyman Millwright - Standing Static: wheeled walker Bed Mobility Rolling: Stand by assist Supine to Sit: Minimal assist, Head of bed elevated Sit to Supine: Stand by assist Journeyman Millwright: bedrails Transfers Sit to Stand: Minimal assist, Moderate assist Journeyman Millwright: wheeled walker Gait/Locomotion Gait Assistance: (Unable to ambulate d/t decreased BP in standing) Home Living Obtained Home Living and PLOF info from: Patient Lives With: Alone Type of Home: House Home Layout: One level Steps to enter home: Yes Rails to enter home: 2 rails Number of stairs to enter home: 3 Bathroom Shower/Tub: Walk-in shower Bathroom Toilet: Raised Bathroom Equipment: Grab bars in shower, Shower chair Bathroom Accessibility: Accessible Mobility Equipment: Cane, Wheeled walker, Rollator, Wheelchair - manual, Lift chair ADL Equipment: Wood Machinist, Long handled shoe horn Additional Objective Details - Home Living: Laundry in basement - daughter and DIL do laundry Prior Level of Function Level of [place] - Transfers/Ambulation/Mobility: Independent with functional transfers, Independent with household ambulation, Independent with community ambulation Subjective Impression - Prior Function: Patient uses rollator for gait. Per chart patient lives in [facility] PHYSICAL THERAPY TREATMENT NOTE Total Treatment Time (Total Session Time): 28 Minutes Total Timed Code Treatment Minutes: 8 Minutes Therapeutic Activities Bed Mobility Skilled Intervention Provided: verbal cues, tactile cues, environmental setup/modification, facilitation For: compensatory strategies Resulting in: neutral response to intervention Transfers Skilled Intervention Provided: verbal cues, tactile cues, environmental setup/modification, facilitation For: UE positioning, compensatory strategies Resulting in: improved awareness Additional Treatment Details BP in supin 114/68, sitting 107/69, then 114/72 after sitting a few minutes, standin/54. Patient did not tolerate BP being taken in standing and while waiting for BP to be completed sat down in bed and then took herself to supine. Educated patient verbally on importance of being up to assist with BP tolerance of being out of bed. Educated patient on importance of head of bed being elevated. Past Medical History: Diagnosis Date Asthma Atopy Diabetes (HCC) Eczema GERD (gastroesophageal reflux disease) Granulomatous disease (HCC) Hyperlipidemia Migraine headache Recurrent UTI 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[facility]) Tachycardia Past Surgical History: Procedure Laterality Date APPENDECTOMY CARDIAC CATHETERIZATION CARDIAC PACEMAKER PLACEMENT SECTION, CLASSIC x2 CHOLECYSTECTOMY OPEN EP - DEVICE N/A 12/20/2020 Procedure: Loop Recorder Implant; Surgeon: Lenard Das MD; Location: EP LAB; Service: Cardiovascular EP - DEVICE N/A 12/15/2021 Procedure: Pacemaker Implant (Dual PPM 12-15-21 at 0600/0800); Surgeon: Lenard Das MD; Location: EP LAB; Service: Cardiovascular EP - DEVICE N/A 05/08/2022 Procedure: Pacemaker Lead Revision; Surgeon: Radha Hubbard DO; Location: [facility] EP LAB; Service: Cardiovascular EYE SURGERY HYSTERECTOMY KYPHOPLASTY N/A 07/08/2023 Procedure: KYPHOPLASTY; Surgeon: Brooklyn Lynn MD; Location: Main OR; Service: Neurological For complete objective data, detailed plan of care and patient education refer to: PT Evaluation flowsheet, PT Evaluation and Treatment flowsheet, PT Treatment flowsheet, patient Plan of Care, Plan of Care progress note, and Patient Education. This note stands as the current Discharge Summary upon patient discharge from the hospital or completion of Physical Therapy Plan. [facility] 12-15-2023 Note Formatting of this n ote might be different from the original. Problem: Actual or potential alteration in health Goal: Absence of healthcare acquired conditions Outcome: Partially Met Goal: Knowledge of Interdisciplinary Plan of Care Outcome: Partially Met Goal: Knowledge of Enviroment Outcome: Partially Met Problem: Pain Goal: Reduced pain sensation Outcome: Partially Met Goal: Control of acute pain to acceptable level Outcome: Partially Met Goal: Able to cope with pain Outcome: Partially Met Goal: Able to achieve maximum level of physical functioning Outcome: Partially Met Goal: Able to achieve maximum level of psychosocial functioning Outcome: Partially Met Problem: Falls, Risk of Goal: Absence of falls Outcome: Partially Met Goal: Absence of physical injury Outcome: Partially Met [facility] 12-14-2023 Note Formatting of this n ote might be different from the original. Noted monitoring of creatinine. Clinical Indicators: Per lab: 12/09 creatinine 1.47, 12/10 creatinine 1.17, 12/13 creatinine 1.13 Per H&P: " hypotension....DM" Per ER provider: "3 to 4 weeks worth of lightheadedness and dizziness symptoms with associated nausea vomiting. Symptoms are triggered and worse with attempting getting up and turning her head. Symptoms decreased with laying flat and still" Historical record: " 10/02/23 Chronic Kidney disease" Please document the corresponding diagnosis reflective of these findings. Please include the present on admission status if applicable. For Example: GAGANDEEP, POA resolved GAGANDEEP on CKD Abnormal creatinine is clinically undetermined Other (please specify) Unable to determine Thank you, Rahel STEWART RN Clinical Furniture Refinisher [phone] (cell) After business hours you may contact Lorenza Mathur at [phone] (Weekdays until 10 PM and weekends 8 AM -10 PM) [facility] 12-14-2023 Note Formatting of this n ote might be different from the original. Noted monitoring of potassium Clinical Indicators: Per lab: 12/09 potassium 3.4, 12/10 potassium 2.9 and 3.7 Per progress notes: "intractable nausea and vomiting" Please document the corresponding diagnosis reflective of these findings. Please include the present on admission status if applicable. For Example: Hypokalemia, POA Low potassium is clinically undetermined Other (please specify) Unable to determine Thank you, Rahel STEWART RN Clinical Furniture Refinisher [phone] (cell) After business hours you may contact Lorenza Mathur at [phone] (Weekdays until 10 PM and weekends 8 AM -10 PM) T [facility] 12-14-2023 Note Formatting of this n ote might be different from the original. Problem: Actual or potential alteration in health Goal: Absence of healthcare acquired conditions Outcome: Partially Met Goal: Knowledge of Interdisciplinary Plan of Care Outcome: Partially Met Goal: Knowledge of Enviroment Outcome: Partially Met Problem: Pain Goal: Reduced pain sensation Outcome: Partially Met Goal: Control of acute pain to acceptable level Outcome: Partially Met Goal: Able to cope with pain Outcome: Partially Met Goal: Able to achieve maximum level of physical functioning Outcome: Partially Met Goal: Able to achieve maximum level of psychosocial functioning Outcome: Partially Met Problem: Falls, Risk of Goal: Absence of falls Outcome: Partially Met Goal: Absence of physical injury Outcome: Partially Met [facility] 12-14-2023 Note Formatting of this n ote might be different from the original. Dr Lynn rounded on this patient and requested orthostatic vitals be done. This LEATHER PRODUCTION MACHINE OPERATOR got those and the results are lying down 112/69, sitting up 87/56, when standing the patient got dizzy and nauseous and had to lie back down, once lying down, she vomited. Was not able to obtain standing BP. [facility] 12-14-2023 Note Formatting of this n ote might be different from the original. MRI complete, device returned to previous settings. Pt tolerated well. [facility] 12-14-2023 Note Formatting of this n ote might be different from the original. Pt in MRI Dept. Device placed in MRI safe mode, DOO 100, per [facility] remote services. potline monitor applied. [facility] 12-14-2023 Note Formatting of this n ote might be different from the original. Chart reviewed; MRIs not yet performed. Will assess after the MRIs. Brooklyn Lynn MD [facility] 12-14-2023 Note Formatting of this n ote might be different from the original. OCCUPATIONAL THERAPY VISIT VARIANCE NOTE Attempted to see patient at this time, but unable secondary to: Refused (states nauseated and not feeling well). Will follow up as appropriate. [facility] 12-14-2023 Note Formatting of this n ote might be different from the original. PHYSICAL THERAPY VISIT VARIANCE NOTE Attempted to see patient at this time, but unable secondary to: Refused (Patient declined d/t not feeling well). Will follow up as appropriate. [facility] 12-14-2023 Note Formatting of this n ote might be different from the original. PSA walked pt to bathroom. Pt became dizzy and nauseous. Pt started dry heaving. BP 97/51. Pt returned to bed. Pt continues to dry heave. [facility] 12-13-2023 Note Formatting of this n ote might be different from the original. Problem: Actual or potential alteration in health Goal: Absence of healthcare acquired conditions Outcome: Partially Met Goal: Knowledge of Interdisciplinary Plan of Care Outcome: Partially Met Goal: Knowledge of Enviroment Outcome: Partially Met Problem: Pain Goal: Reduced pain sensation Outcome: Partially Met Goal: Control of acute pain to acceptable level Outcome: Partially Met Goal: Able to cope with pain Outcome: Partially Met Goal: Able to achieve maximum level of physical functioning Outcome: Partially Met Goal: Able to achieve maximum level of psychosocial functioning Outcome: Partially Met Problem: Falls, Risk of Goal: Absence of falls Outcome: Partially Met Goal: Absence of physical injury Outcome: Partially Met [facility] 12-13-2023 Note Formatting of this n ote might be different from the original. PHYSICAL THERAPY VISIT VARIANCE NOTE Attempted to see patient at this time, but unable secondary to: pt refused all mobility this date despite encouragement, reports she will throw up if she sits up or mobilizes. Nursing notified, will follow up as appropriate. [facility] 12-13-2023 Note Formatting of this n ote might be different from the original. Received call from device clinic at [phone] asking for emergent MRI form. Signed faxed [facility] 12-13-2023 Note Formatting of this n ote might be different from the original. Problem: Actual or potential alteration in health Goal: Absence of healthcare acquired conditions Outcome: Partially Met Goal: Knowledge of Interdisciplinary Plan of Care Outcome: Partially Met Goal: Knowledge of Enviroment Outcome: Partially Met Problem: Pain Goal: Reduced pain sensation Outcome: Partially Met Goal: Control of acute pain to acceptable level Outcome: Partially Met Goal: Able to cope with pain Outcome: Partially Met Goal: Able to achieve maximum level of physical functioning Outcome: Partially Met Goal: Able to achieve maximum level of psychosocial functioning Outcome: Partially Met Problem: Falls, Risk of Goal: Absence of falls Outcome: Partially Met Goal: Absence of physical injury Outcome: Partially Met [facility] 12-12-2023 Note Formatting of this n ote might be different from the original. PHYSICAL THERAPY VISIT VARIANCE NOTE Attempted to see patient at this time, but unable secondary to: Awaiting Medical Clearance (comment). Pt admitted with dizziness, normal pressure hydrocephalus, intractable Nausea and vomiting, complicated UTI and elevated troponin. Awaiting recommendations/plan from neurosurgery following brain, thoracic and lumbar imaging. Will follow up as appropriate. [facility] 12-12-2023 Note Formatting of this n ote might be different from the original. Patient able to transfer from bed to recliner with fww with 1 person assist. Patient denies nausea or dizziness and tolerated well. [facility] 12-12-2023 Note Formatting of this n ote might be different from the original. Problem: Actual or potential alteration in health Goal: Absence of healthcare acquired conditions Outcome: Partially Met Goal: Knowledge of Interdisciplinary Plan of Care Outcome: Partially Met Goal: Knowledge of Enviroment Outcome: Partially Met Problem: Pain Goal: Reduced pain sensation Outcome: Partially Met Goal: Control of acute pain to acceptable level Outcome: Partially Met Goal: Able to cope with pain Outcome: Partially Met Goal: Able to achieve maximum level of physical functioning Outcome: Partially Met Goal: Able to achieve maximum level of psychosocial functioning Outcome: Partially Met Problem: Falls, Risk of Goal: Absence of falls Outcome: Partially Met Goal: Absence of physical injury Outcome: Partially Met [facility] 12-11-2023 Consult note Associated Order (s): IP CONSULT TO NEUROSURGERY HPI: Kristen Mann is a 73 y.o. female who presents with intractable nausea and vomiting, the CT scan of the abdomen pelvis that was reconstructed to show compression fractures, patient reports for this nausea and back pain. No bowel or dysfunction or saddle anesthesias, reported. Patient is currently awaiting MRI scans. Medications: Current Facility-Administered Medications Medication Dose Route Frequency Provider Last Rate Last Admin acetaminophen (TYLENOL) tablet 650 mg 650 mg Oral Q4H PRN Calvin Baker MD 650 mg at 12/11/23 0157 cefTRIAXone (ROCEPHIN) IVPB 1 g (premix) 1,000 mg Intravenous Q24H Calvin Baker MD 100 mL/hr at 12/11/23 0913 1,000 mg at 12/11/23 0913 enoxaparin (LOVENOX) syringe 40 mg 40 mg Subcutaneous Daily Calvin Baker MD 40 mg at 12/11/23 0827 insulin glargine (LANTUS) injection 30 Units 30 Units Subcutaneous Nightly Calvin Baker MD 30 Units at 12/10/232011 insulin lispro (AdmeLOG,HumaLOG) injection 0-15 Units 0-15 Units Subcutaneous at bedtime Calvin Baker MD 7 Units at 12/10/232012 insulin lispro (AdmeLOG,HumaLOG) injection 0-30 Units 0-30 Units Subcutaneous TID AC Calvin Baker MD 2 Units at 12/11/23 0811 meclizine (ANTIVERT) tablet 25 mg 25 mg Oral Q6H [facility] Mahamed Grissom DO midodrine (PROAMATINE) tablet 5 mg 5 mg Oral TID Calvin Baker MD 5 mg at 12/10/232011 ondansetron (ZOFRAN-ODT) disintegrating tablet 4 mg 4 mg Oral Q6H PRN Calvin Baker MD Or ondansetron (ZOFRAN) injection 4 mg 4 mg Intravenous Q6H PRN Calvin Baker MD 4 mg at 12/11/23 0851 potassium chloride 20 mEq in 100 mL IVPB 20 mEq Intravenous Q2H Mahamed Grissom DO 50 mL/hr at 04/06/24 0900 20 mEq at 12/11/23 0900 sodium chloride (PF) (NS) flush 5 mL 5 mL Intravenous PRN Urbano Reis MD And sodium chloride 0.9% (NS) 0-150 mL/hr Intravenous PRN Urbano Reis MD sodium chloride (PF) (NS) flush 5 mL 5 mL Intravenous PRN Calvin Baker MD And sodium chloride (PF) (NS) flush 5 mL 5 mL Intravenous Q8H [facility]CTOR[facility] Calvin Baker MD 5 mL at 12/11/23 0554 And sodium chloride 0.9% (NS) 0-150 mL/hr Intravenous PRN Calvin Baker MD sodium chloride 0.9% (NS) 125 mL/hr Intravenous Continuous Mahamed Grissom DO 125 mL/hr at 12/11/23 0846 125 mL/hr at 12/11/23 0846 traZODone (DESYREL) tablet 50 mg 50 mg Oral Nightly PRN Calvin Baker MD venlafaxine (EFFEXOR-XR) 24 hr capsule 150 mg 150 mg Oral Daily Calvin Baker MD 150 mg at 12/11/23 0827 Allergies: Allergies Allergen Reactions Morphine Shortness Of Breath Penicillins Rash Sulfa (Sulfonamide Antibiotics) Hives Medical, Surgical, Family and Socioeconomic History reviewed. Review of Systems: Constitutional: Negative for fever, chills, fatigue and unexpected weight change. HENT: Negative for hearing loss, sore throat and facial swelling. Eyes: Negative for pain and discharge. Respiratory: Negative for cough and shortness of breath. Cardiovascular: Negative for chest pain. Gastrointestinal: Negative for nausea, vomiting, diarrhea and constipation. Musculoskeletal: noted in HPI Skin: Negative for pallor and rash. Neurological: Negative for seizures, syncope and numbness. Hematological: Does not bruise/bleed easily. Psychiatric/Behavioral: Negative for behavioral problems. The patient is not nervous/anxious. Physical Exam: Vitals: BP (!) 156/80 Pulse 91 Temp 98.2 F (36.8 C) (Oral) Resp 17 Ht 5' 6" Wt 78.9 kg (174 lb) SpO2 94% BMI 28.08 kg/m Nursing note and vitals reviewed. Constitutional: Oriented to person, place, and time. Appears well-developed and well-nourished. No distress. Head: Normocephalic and atraumatic. Eyes: Conjunctivae and EOM are normal. Pulmonary/Chest: Effort normal. No respiratory distress. Skin: Skin is warm and dry. No rash noted. Psychiatric: Normal mood and affect. Behavior is normal Neurological: Cranial nerves II through XII are intact. Motor strength: Motor Deltoid Biceps Triceos Wrist Extensors Wrist Flexors Interosseous [employer] Professional Right 5 5 5 5 5 5 5 Left 5 5 5 5 5 5 5 Motor Hip Flexion Knee Extension Knee Flexion Foot Dorsiflexion Foot inversion Foot Eversion Foot plantarflexion Extensor Hallucis Longus Right 5 5 5 5 5 5 5 5 Left 5 5 5 5 5 5 5 5 Sensory exam: intact and symmetric to light touch bilaterally Deep tendon reflexes: Brachioradialis Biceps Triceps Patellar Achilles Gomez's Babinski Right 2 2 2 2 2 negative down Left 2 2 2 2 2 negative down No clonus B/L. Finger to nose test intact, no dysmetria No dysdiadochokinesia upon rapid alternating movements. Gait is normal with no ataxia. Spurlings sign - B/L L'Hermittes sign - Straight leg raise - B/L Patricks sign - B/L Gaenslen's sign - B/L Alignment: overall preserved sagittal balance Musculoskeletal: Unremarkable Imaging: Assessment: 1. Dizziness 2. NPH (normal pressure hydrocephalus) (HCC) 3. Nausea and vomiting, unspecified vomiting type 4. Complicated UTI (urinary tract infection) 5. Elevated troponin Extensive discussion was undertaken with the patient regarding the symptoms and physical exam, imaging was shown and described to the patient in great detail. Neurologically intact Patient demonstrated full understanding of the imaging and discussion. Plan: 1. This point we still await MRI scan of the thoracic and lumbar spines 2. Further recommendations to come after the MRI scans are performed. Thank you for allowing me to participate in healthcare management of your patient Grand total of 1 hour was spent evaluating the imaging, examining the patient and updating plan of care Vipul Guerrero DO 12/11/2023 [facility] 12-10-2023 Note Formatting of this n ote might be different from the original. Problem: Actual or potential alteration in health Goal: Absence of healthcare acquired conditions Outcome: Partially Met Goal: Knowledge of Interdisciplinary Plan of Care Outcome: Partially Met Goal: Knowledge of Enviroment Outcome: Partially Met Problem: Pain Goal: Reduced pain sensation Outcome: Partially Met Goal: Control of acute pain to acceptable level Outcome: Partially Met Goal: Able to cope with pain Outcome: Partially Met Goal: Able to achieve maximum level of physical functioning Outcome: Partially Met Goal: Able to achieve maximum level of psychosocial functioning Outcome: Partially Met [facility] 12-10-2023 Note Formatting of this n ote might be different from the original. Problem: Actual or potential alteration in health Goal: Absence of healthcare acquired conditions Outcome: Partially Met Goal: Knowledge of Interdisciplinary Plan of Care Outcome: Partially Met Goal: Knowledge of Enviroment Outcome: Partially Met Problem: Actual or potential alteration in health Goal: Absence of healthcare acquired conditions Outcome: Partially Met Goal: Knowledge of Interdisciplinary Plan of Care Outcome: Partially Met Goal: Knowledge of Enviroment Outcome: Partially Met [facility] 12-10-2023 History and physical note [facility] [place] -- [facility] Patient Name: Kristen Mann : 1950 MR #: [id number] Admit Date: 12/10/2023 Physicians: Olivier Acosta MD (Family); No ref. provider found (Referring) Kristne Mann is a 73 y.o. female patient of Olivier Acosta MD with history of anxiety, hypotension, diabetes presented to [facility] on 12/10/2023 with reccurent UTI, imbalance . Possible hydrocephalus Commensurate ventricular system enlargement. Noted on ct here today as above Will get MRI I reviewed CT from outside hospital with patient and 11/22/2023 dated reports suggests hydrocephalus Will consult NSG Syptoms have been going for 1 month - promptin her to be enrolled in jail Symptoms are classic with gait, uti and altered mentation Will obtain MRI Discussed with ED provider UTI reccurent Ua suggestive Emperic rocphin Cultures pending Diabetes Sliding scale Anxiety Venlafaxine Hypotension Midiordrine HLD No longer taking zetia Goals of care Time spent > 18 min Discussed with patient and daughter at bedside. At this time patient is full code however they will have ongoing discussions regarding long-term plan. Risk benefits alternatives explained Residence prior to admission: ECF/SNF Was patient transferred from outlying hospital or ED no Quality Measures DVT Prophylaxis: lovenox Zimmerman Catheter: absent Medication Reconciliation: Verified Admitted with these risk variables:None. Please see assessment and plan for further details. Estimated Date of Discharge greater than 2 midnights Code Status Full Code; code status verified on 12/10/2023 with patient (capacity intact) Chief Complaint nausea and vomiting recurrent UTI History of Present Illness 73-year-old female with past medical history of anxiety comes to the ER with 1 month of morning nausea recurrent UTIs gait instability and moments of altered mentation. This been a month. This prompted her to be enrolled into a jail facility. She been treated for UTIs in the past without relief. She was seen at an outside facility November [address] scan did show hydrocephalus but was not having any follow-up since then. Our CTs confirm something similar. Denies any nausea vomiting fevers chills abdominal pain chest pain or shortness of breath Past Medical History Past Medical History: Diagnosis Date Asthma Atopy Diabetes (HCC) Eczema GERD (gastroesophageal reflux disease) Granulomatous disease (HCC) Hyperlipidemia Migraine headache Recurrent UTI 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HCC) Tachycardia Past Surgical History Past Surgical History: Procedure Laterality Date APPENDECTOMY CARDIAC CATHETERIZATION CARDIAC PACEMAKER PLACEMENT SECTION, CLASSIC x2 CHOLECYSTECTOMY OPEN EP - DEVICE N/A 12/20/2020 Procedure: Loop Recorder Implant; Surgeon: Lenard Das MD; Location: EP LAB; Service: Cardiovascular EP - DEVICE N/A 12/15/2021 Procedure: Pacemaker Implant (Dual PPM 12-15-21 at 0600/0800); Surgeon: Lenard Das MD; Location: EP LAB; Service: Cardiovascular EP - DEVICE N/A 05/08/2022 Procedure: Pacemaker Lead Revision; Surgeon: Radha Hubbard DO; Location: [facility] EP LAB; Service: Cardiovascular EYE SURGERY HYSTERECTOMY KYPHOPLASTY N/A 07/08/2023 Procedure: KYPHOPLASTY; Surgeon: Brooklyn Lynn MD; Location: Main OR; Service: Neurological Family History Family History Problem Relation Age of Onset Heart disease Father Asthma Mother Social History Social History Tobacco Use Smoking Status Never Smokeless Tobacco Never Social History Substance and Sexual Activity Alcohol Use No Social History Substance and Sexual Activity Drug Use No Allergy Information I have reviewed the patient's allergies. Morphine, Penicillins, and Sulfa (sulfonamide antibiotics) Home Medications Home medications were reviewed. Review Of Systems All relevant systems have been reviewed and are negative except as noted in HPI or below Physical Examination BP (!) 153/85 Pulse (!) 101 Temp 97.8 F (36.6 C) (Oral) Resp 17 Ht 5' 6" Wt 78.9 kg (174 lb) SpO2 92% BMI 28.08 kg/m General Appearance: alert; well appearing; in no acute distress HEENT: Head- normocephalic; Eyes- EOMI, sclera anicteric; Throat- mucous membranes moist Cardiovascular: regular rate and rhythm; normal S1, S2; no murmurs, rubs, clicks or gallops; peripheral edema absent Respiratory: lungs clear to auscultation; without wheezes, rales or rhonchi; on room air Abdomen: soft, non-tender, non-distended Neurological: oriented x 3; normal speech; no focal findings or movement disorder noted Musculoskeletal: no significant deformity or tenderness to palpation Skin: normal coloration Psych: normal mood and affect [facility] 12-10-2023 History and physical note [facility] [place] -- [facility] Patient Name: Kristen Mann : 1950 MR #: [id number] Admit Date: 12/10/2023 Physicians: Olivier Acosta MD (Family); No ref. provider found (Referring) Kristen Mann is a 73 y.o. female patient of Olivier Acosta MD with history of anxiety, hypotension, diabetes presented to [facility] on 12/10/2023 with reccurent UTI, imbalance . Possible hydrocephalus Commensurate ventricular system enlargement. Noted on ct here today as above Will get MRI I reviewed CT from outside hospital with patient and 11/22/2023 dated reports suggests hydrocephalus Will consult NSG Syptoms have been going for 1 month - promptin her to be enrolled in jail Symptoms are classic with gait, uti and altered mentation Will obtain MRI Discussed with ED provider UTI reccurent Ua suggestive Emperic rocphin Cultures pending Diabetes Sliding scale Anxiety Venlafaxine Hypotension Midiordrine HLD No longer taking zetia Goals of care Time spent > 18 min Discussed with patient and daughter at bedside. At this time patient is full code however they will have ongoing discussions regarding long-term plan. Risk benefits alternatives explained Residence prior to admission: ECF/SNF Was patient transferred from outlying hospital or ED no Quality Measures DVT Prophylaxis: lovenox Zimmerman Catheter: absent Medication Reconciliation: Verified Admitted with these risk variables:None. Please see assessment and plan for further details. Estimated Date of Discharge greater than 2 midnights Code Status Full Code; code status verified on 12/10/2023 with patient (capacity intact) Chief Complaint nausea and vomiting recurrent UTI History of Present Illness 73-year-old female with past medical history of anxiety comes to the ER with 1 month of morning nausea recurrent UTIs gait instability and moments of altered mentation. This been a month. This prompted her to be enrolled into a jail facility. She been treated for UTIs in the past without relief. She was seen at an outside facility November [address] scan did show hydrocephalus but was not having any follow-up since then. Our CTs confirm something similar. Denies any nausea vomiting fevers chills abdominal pain chest pain or shortness of breath Past Medical History Past Medical History: Diagnosis Date Asthma Atopy Diabetes (HCC) Eczema GERD (gastroesophageal reflux disease) Granulomatous disease (HCC) Hyperlipidemia Migraine headache Recurrent UTI 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HCC) Tachycardia Past Surgical History Past Surgical History: Procedure Laterality Date APPENDECTOMY CARDIAC CATHETERIZATION CARDIAC PACEMAKER PLACEMENT SECTION, CLASSIC x2 CHOLECYSTECTOMY OPEN EP - DEVICE N/A 12/20/2020 Procedure: Loop Recorder Implant; Surgeon: Lenard Das MD; Location: EP LAB; Service: Cardiovascular EP - DEVICE N/A 12/15/2021 Procedure: Pacemaker Implant (Dual PPM 12-15-21 at 0600/0800); Surgeon: Lenard Das MD; Location: EP LAB; Service: Cardiovascular EP - DEVICE N/A 05/08/2022 Procedure: Pacemaker Lead Revision; Surgeon: Radha Hubbard DO; Location: [facility] EP LAB; Service: Cardiovascular EYE SURGERY HYSTERECTOMY KYPHOPLASTY N/A 07/08/2023 Procedure: KYPHOPLASTY; Surgeon: Brooklyn Lynn MD; Location: Main OR; Service: Neurological Family History Family History Problem Relation Age of Onset Heart disease Father Asthma Mother Social History Social History Tobacco Use Smoking Status Never Smokeless Tobacco Never Social History Substance and Sexual Activity Alcohol Use No Social History Substance and Sexual Activity Drug Use No Allergy Information I have reviewed the patient's allergies. Morphine, Penicillins, and Sulfa (sulfonamide antibiotics) Home Medications Home medications were reviewed. Review Of Systems All relevant systems have been reviewed and are negative except as noted in HPI or below Physical Examination BP (!) 153/85 Pulse (!) 101 Temp 97.8 F (36.6 C) (Oral) Resp 17 Ht 5' 6" Wt 78.9 kg (174 lb) SpO2 92% BMI 28.08 kg/m General Appearance: alert; well appearing; in no acute distress HEENT: Head- normocephalic; Eyes- EOMI, sclera anicteric; Throat- mucous membranes moist Cardiovascular: regular rate and rhythm; normal S1, S2; no murmurs, rubs, clicks or gallops; peripheral edema absent Respiratory: lungs clear to auscultation; without wheezes, rales or rhonchi; on room air Abdomen: soft, non-tender, non-distended Neurological: oriented x 3; normal speech; no focal findings or movement disorder noted Musculoskeletal: no significant deformity or tenderness to palpation Skin: normal coloration Psych: normal mood and affect documented in this encounter [facility] 12-10-2023 Emergency department Note REPORT CALLED AND AWAITING RETURN CALL. [facility] 12-10-2023 Emergency department Note REPORT CALLED AND AWAITING RETURN CALL. Hourly rounding assessment completed on the patient. [] Patient updated on plan of care [x] All comfort needs addressed [x] Patient updated on duration of visit All questions answered, patient denies further needs. Call light within reach. Hourly rounding assessment completed on the patient. [] Patient updated on plan of care [x] All comfort needs addressed [x] Patient updated on duration of visit All questions answered, patient denies further needs. Call light within reach. [facility] EMERGENCY DEPARTMENT ATTENDING NOTE: NAME: Kristen Mann CSN: [id number] 73 y.o. PCP: Olivier Acosta MD History: Chief Complaint: Emesis and Nausea HPI: 73-year-old female past medical history of diabetes hyperlipidemia recurrent UTIs prior stroke presents to the emergency department via EMS for 3 to 4 weeks worth of lightheadedness and dizziness symptoms with associated nausea vomiting. Symptoms are triggered and worse with attempting getting up and turning her head. Symptoms decreased with laying flat and still. Patient states that she is been having the symptoms for the past month and have not been resolved. No recent travel known sick contacts or antibiotic use. Patient denies any abdominal pain fevers chills dysuria symptoms or any other symptoms at this time PMHx: Past Medical History: Diagnosis Date Asthma Atopy Diabetes (HCC) Eczema GERD (gastroesophageal reflux disease) Granulomatous disease (HCC) Hyperlipidemia Migraine headache Recurrent UTI 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HCC) Tachycardia PMSx: Past Surgical History: Procedure Laterality Date APPENDECTOMY CARDIAC CATHETERIZATION CARDIAC PACEMAKER PLACEMENT SECTION, CLASSIC x2 CHOLECYSTECTOMY OPEN EP - DEVICE N/A 12/20/2020 Procedure: Loop Recorder Implant; Surgeon: Lenard Das MD; Location: EP LAB; Service: Cardiovascular EP - DEVICE N/A 12/15/2021 Procedure: Pacemaker Implant (Dual PPM 4-11-22 at 0600/0800); Surgeon: Lenard Das MD; Location: EP LAB; Service: Cardiovascular EP - DEVICE N/A 05/08/2022 Procedure: Pacemaker Lead Revision; Surgeon: Radha Hubbard DO; Location: [facility] EP LAB; Service: Cardiovascular EYE SURGERY HYSTERECTOMY KYPHOPLASTY N/A 07/08/2023 Procedure: KYPHOPLASTY; Surgeon: Brooklyn Lynn MD; Location: Main OR; Service: Neurological FAM. Hx: Family History Problem Relation Age of Onset Heart disease Father Asthma Mother SOC. 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 Tobacco Use Smoking status: Never Smokeless tobacco: Never Vaping Use Vaping Use: Never used Substance and Sexual Activity Alcohol use: No Drug use: No Social History Narrative Pets: dog Social Determinants of Health Food Insecurity: No Food Insecurity (10/01/2023) Hunger Vital Sign Worried About Running Out of Food in the Last Year: Never true Ran Out of Food in the Last Year: Never true Transportation Needs: No Transportation Needs (10/01/2023) PRAPARE - Transportation Lack of Transportation (Medical): No Lack of Transportation (Non-Medical): No Housing Stability: Low Risk (10/01/2023) Housing Stability Vital Sign Unable to Pay for Housing in the Last Year: No Number of Places Lived in the Last Year: 1 Unstable Housing in the Last Year: No MEDs: Previous Medications Medication Sig acetaminophen (TYLENOL ER) 650 MG CR tablet Take 2 (two) tablets (1,300 mg total) by mouth every 8 (eight) hours as needed for pain . BD AutoShield Duo Pen Needle 30 gauge x 3/16" Ndle bisacodyL (DULCOLAX) 10 mg suppository Insert 1 (one) suppository (10 mg total) into the rectum daily as needed for constipation . cholecalciferol, vitamin D3, 50 mcg (2,000 unit) Tab Take 1 (one) tablet (2,000 Units total) by mouth nightly . ezetimibe (ZETIA) 10 mg tablet Take 1 (one) tablet (10 mg total) by mouth daily . fludrocortisone (FLORINEF) 0.1 mg tablet Take 1 (one) tablet (0.1 mg total) by mouth daily . insulin glargine (LANTUS) 100 unit/mL injection Inject 40 (forty) Units under the skin nightly . meclizine (ANTIVERT) 12.5 mg tablet Take 1 (one) tablet (12.5 mg total) by mouth 2 (two) times a day as needed for nausea . midodrine (PROAMATINE) 5 MG tablet Take 0.5 (one-half) tablet (2.5 mg total) by mouth 3 (three) times a day . potassium chloride SA (K-DUR,KLOR-CON) 20 MEQ tablet Take 1 (one) tablet (20 mEq total) by mouth 2 (two) times a day . senna (SENOKOT) 8.6 mg tablet Take 1 (one) tablet (8.6 mg total) by mouth daily . sodium phosphates (FLEETS ADULT) 19-7 gram/118 mL Enem Insert 1 (one) each into the rectum daily as needed Reasons: constipation. venlafaxine (EFFEXOR-XR) 150 MG 24 hr capsule Take 1 (one) capsule (150 mg total) by mouth daily . vibegron (Gemtesa) 75 mg Tab Take 1 (one) tablet (75 mg total) by mouth daily . ALL: Allergies Allergen Reactions Morphine Shortness Of Breath Penicillins Rash Sulfa (Sulfonamide Antibiotics) Hives Physical Exam: Patient Vitals for the past 24 hrs: BP Temp Temp src Pulse Resp SpO2 Height Weight 12/10/23 1615 -- -- -- (!) 101 17 92 % -- -- 12/10/23 1600 (!) 153/85 -- -- (!) 100 (!) 19 93 % -- -- 12/10/23 1430 (!) 142/95 -- -- (!) 104 (!) 22 93 % -- -- 12/10/23 1415 -- -- -- (!) 107 (!) 25 97 % -- -- 12/10/23 1400 136/78 -- -- (!) 101 13 94 % -- -- 12/10/23 1345 139/86 -- -- (!) 102 18 92 % -- -- 12/10/23 1342 139/86 97.8 F (36.6 C) Oral (!) 101 -- 96 % 5' 6" 78.9 kg (174 lb) 12/10/23 1331 -- -- Oral (!) 106 18 -- -- -- Physical Exam Vitals and nursing note reviewed. Constitutional: General: She is awake. HENT: Head: Normocephalic and atraumatic. Right Ear: External ear normal. Left Ear: External ear normal. Nose: Nose normal. Mouth/Throat: Mouth: Mucous membranes are dry. Pharynx: Oropharynx is clear. Eyes: General: Lids are normal. No scleral icterus. Extraocular Movements: Extraocular movements intact. Pupils: Pupils are equal, round, and reactive to light. Cardiovascular: Rate and Rhythm: Normal rate. Musculoskeletal: Cervical back: Normal range of motion. Pulmonary: Effort: Pulmonary effort is normal. No accessory muscle usage or respiratory distress. Skin: General: Skin is warm. Findings: No rash. Comments: No acute rash visualized on exposed skin Neurological: Mental Status: She is alert and oriented to person, place, and time. GCS: GCS eye subscore is 4. GCS verbal subscore is 5. GCS motor subscore is 6. Cranial Nerves: No dysarthria or facial asymmetry. Sensory: Sensation is intact. Motor: Motor function is intact. Coordination: Coordination is intact. NIH Scale: LOC: 0 - alert LOC Questions: 0 - answers both correctly LOC Commands: 0 - performs both correctly Best gaze: 0 - normal Vision: 0 - no visual loss Facial Palsy: 0 - normal Left arm: 0 - no drift Right arm; 0 - no drift Left le - no drift Right le - no drift Limb ataxia: 1 - present in one limb (left) Sensation: 0 - normal Best language: 0 - no aphasia Dysarthria: 0 - normal articulation Extinction and inattention: 0 - no neglect Stroke Scale: 1 Laboratory & Radiological Imaging (if done): Labs Reviewed URINALYSIS - Abnormal; Notable for the following components: Result Value Clarity, Urine Cloudy (*) Protein, Urine 30 (*) Blood, Urine Small (*) Leukocyte Esterase, Urine Large (*) WBCs, Urine >180 (*) RBCs, Urine 115 (*) Bacteria, Urine Many (*) WBC Clumps, Urine Many (*) All other components within normal limits Narrative: Microscopic examination is performed on all urinalysis samples and only positive findings are reported. The test for blood on the chemical analytic portion of urinalysis may also be positive due to hemoglobinuria and myoglobinuria and if red blood cells are present they are quantified by microscopic examination. COMPREHENSIVE METABOLIC PANEL - Abnormal; Notable for the following components: Potassium 3.4 (*) Glucose 245 (*) Creatinine 1.47 (*) eGFR 38 (*) All other components within normal limits Narrative: [facility] has implemented the eGFR calculation approach that does not have a coefficient for race that conforms to the NKF-ASN Task Force Recommendations. TROPONIN - Abnormal; Notable for the following components: Troponin T 46 (*) All other components within normal limits CBC WITH AUTO DIFFERENTIAL - Abnormal; Notable for the following components: WBC 13.87 (*) MPV 9.2 (*) Neutrophils Abs 10.11 (*) Monocytes Abs 0.98 (*) All other components within normal limits LIPASE - Normal BLOOD CULTURE AEROBIC/ANAEROBIC BLOOD CULTURE AEROBIC/ANAEROBIC CBC AND DIFFERENTIAL Narrative: The following orders were created for panel order CBC and Differential. Procedure Abnormality Status --------- ------ CBC Auto Differential[[id number]] Abnormal Final result Please view results for these tests on the individual orders. TROPONIN LACTIC ACID, PLASMA XR Chest 1 View Final Result 1. No acute cardiopulmonary disease. Workstation ID: [id number] CT Head Or Brain Without Contrast Final Result No acute intracranial process. No substantial change since 10/22/2023. Workstation ID: [id number] Procedures: Procedures ED Course / Medical Decision Making: I did personally review Kristen's past medical history, surgical history, social history, as well as family history (when relevant). After reviewing the items above, I did look at previous medical documentation. Social conditions impacting the patients care are: nursing facility Some Differential Diagnoses Include: Intracranial bleed intracranial mass pneumonia pneumothorax Labs/Imaging: no bleed. Troponin elevated. Leukocytosis, UA positive for uti ED course: Patient presents emergency department for dizziness symptoms with nausea vomiting x 3 to 4 weeks. Patient with abnormal [id number] on the left side. Should this be a stroke, patient would be outside window for TNK and thrombectomy. Daughter who came later at the bedside stated that patient had recent imaging of CT head showing NPH, though states that she has not seen or followed up with a neurosurgeon yet. Will admit for further management Shared decision making used: yes Code Status: Full . Clinical Impression: 1. Dizziness 2. NPH (normal pressure hydrocephalus) (HCC) 3. Nausea and vomiting, unspecified vomiting type 4. Complicated UTI (urinary tract infection) 5. Elevated troponin Disposition: ED Disposition ED Disposition Hospitalize Condition -- Comment Reason for inpatient over two midnights: uti and nph work up Urbano Reis MD, MD ED Attending Physician [facility] EMERGENCY DEPARTMENT Urbano Reis MD 12/10/23 1620 Pt into ED from [facility] for "Illness". Pt was supposed to got to neurology appt and was unable to go d/t not feeling well. This RN noted emesis to her shirt pt states she feels nauseated and has been vomiting. Bed: 17 Expected date: Expected time: Means of arrival: Comments: Arlene documented in this encounter [facility] 12-10-2023 Emergency department Note Hourly rounding assessment completed on the patient. [] Patient updated on plan of care [x] All comfort needs addressed [x] Patient updated on duration of visit All questions answered, patient denies further needs. Call light within reach. [facility] 12-10-2023 Emergency department Note Hourly rounding assessment completed on the patient. [] Patient updated on plan of care [x] All comfort needs addressed [x] Patient updated on duration of visit All questions answered, patient denies further needs. Call light within reach. [facility] 12-10-2023 Physician Emergency department Note [facility] EMERGENCY DEPARTMENT ATTENDING NOTE: NAME: Kristen Mann CSN: [id number] 73 y.o. PCP: Olivier Acosta MD History: Chief Complaint: Emesis and Nausea HPI: 73-year-old female past medical history of diabetes hyperlipidemia recurrent UTIs prior stroke presents to the emergency department via EMS for 3 to 4 weeks worth of lightheadedness and dizziness symptoms with associated nausea vomiting. Symptoms are triggered and worse with attempting getting up and turning her head. Symptoms decreased with laying flat and still. Patient states that she is been having the symptoms for the past month and have not been resolved. No recent travel known sick contacts or antibiotic use. Patient denies any abdominal pain fevers chills dysuria symptoms or any other symptoms at this time PMHx: Past Medical History: Diagnosis Date Asthma Atopy Diabetes (HCC) Eczema GERD (gastroesophageal reflux disease) Granulomatous disease (HCC) Hyperlipidemia Migraine headache Recurrent UTI 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[facility]) Tachycardia PMSx: Past Surgical History: Procedure Laterality Date APPENDECTOMY CARDIAC CATHETERIZATION CARDIAC PACEMAKER PLACEMENT SECTION, CLASSIC x2 CHOLECYSTECTOMY OPEN EP - DEVICE N/A 12/20/2020 Procedure: Loop Recorder Implant; Surgeon: Lenard Das MD; Location: EP LAB; Service: Cardiovascular EP - DEVICE N/A 12/15/2021 Procedure: Pacemaker Implant (Dual PPM 12-15-21 at 0600/0800); Surgeon: Lenard Das MD; Location: EP LAB; Service: Cardiovascular EP - DEVICE N/A 05/08/2022 Procedure: Pacemaker Lead Revision; Surgeon: Radha Hubbard DO; Location: [facility] EP LAB; Service: Cardiovascular EYE SURGERY HYSTERECTOMY KYPHOPLASTY N/A 07/08/2023 Procedure: KYPHOPLASTY; Surgeon: Brooklyn Lynn MD; Location: Main OR; Service: Neurological FAM. Hx: Family History Problem Relation Age of Onset Heart disease Father Asthma Mother SOC. 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 Tobacco Use Smoking status: Never Smokeless tobacco: Never Vaping Use Vaping Use: Never used Substance and Sexual Activity Alcohol use: No Drug use: No Social History Narrative Pets: dog Social Determinants of Health Food Insecurity: No Food Insecurity (10/01/2023) Hunger Vital Sign Worried About Running Out of Food in the Last Year: Never true Ran Out of Food in the Last Year: Never true Transportation Needs: No Transportation Needs (10/01/2023) PRAPARE - Transportation Lack of Transportation (Medical): No Lack of Transportation (Non-Medical): No Housing Stability: Low Risk (10/01/2023) Housing Stability Vital Sign Unable to Pay for Housing in the Last Year: No Number of Places Lived in the Last Year: 1 Unstable Housing in the Last Year: No MEDs: Previous Medications Medication Sig acetaminophen (TYLENOL ER) 650 MG CR tablet Take 2 (two) tablets (1,300 mg total) by mouth every 8 (eight) hours as needed for pain . BD AutoShield Duo Pen Needle 30 gauge x 3/16" Ndle bisacodyL (DULCOLAX) 10 mg suppository Insert 1 (one) suppository (10 mg total) into the rectum daily as needed for constipation . cholecalciferol, vitamin D3, 50 mcg (2,000 unit) Tab Take 1 (one) tablet (2,000 Units total) by mouth nightly . ezetimibe (ZETIA) 10 mg tablet Take 1 (one) tablet (10 mg total) by mouth daily . fludrocortisone (FLORINEF) 0.1 mg tablet Take 1 (one) tablet (0.1 mg total) by mouth daily . insulin glargine (LANTUS) 100 unit/mL injection Inject 40 (forty) Units under the skin nightly . meclizine (ANTIVERT) 12.5 mg tablet Take 1 (one) tablet (12.5 mg total) by mouth 2 (two) times a day as needed for nausea . midodrine (PROAMATINE) 5 MG tablet Take 0.5 (one-half) tablet (2.5 mg total) by mouth 3 (three) times a day . potassium chloride SA (K-DUR,KLOR-CON) 20 MEQ tablet Take 1 (one) tablet (20 mEq total) by mouth 2 (two) times a day . senna (SENOKOT) 8.6 mg tablet Take 1 (one) tablet (8.6 mg total) by mouth daily . sodium phosphates (FLEETS ADULT) 19-7 gram/118 mL Enem Insert 1 (one) each into the rectum daily as needed Reasons: constipation. venlafaxine (EFFEXOR-XR) 150 MG 24 hr capsule Take 1 (one) capsule (150 mg total) by mouth daily . vibegron (Gemtesa) 75 mg Tab Take 1 (one) tablet (75 mg total) by mouth daily . ALL: Allergies Allergen Reactions Morphine Shortness Of Breath Penicillins Rash Sulfa (Sulfonamide Antibiotics) Hives Physical Exam: Patient Vitals for the past 24 hrs: BP Temp Temp src Pulse Resp SpO2 Height Weight 12/10/23 1615 -- -- -- (!) 101 17 92 % -- -- 12/10/23 1600 (!) 153/85 -- -- (!) 100 (!) 19 93 % -- -- 12/10/23 1430 (!) 142/95 -- -- (!) 104 (!) 22 93 % -- -- 12/10/23 1415 -- -- -- (!) 107 (!) 25 97 % -- -- 12/10/23 1400 136/78 -- -- (!) 101 13 94 % -- -- 12/10/23 1345 139/86 -- -- (!) 102 18 92 % -- -- 12/10/23 1342 139/86 97.8 F (36.6 C) Oral (!) 101 -- 96 % 5' 6" 78.9 kg (174 lb) 12/10/23 1331 -- -- Oral (!) 106 18 -- -- -- Physical Exam Vitals and nursing note reviewed. Constitutional: General: She is awake. HENT: Head: Normocephalic and atraumatic. Right Ear: External ear normal. Left Ear: External ear normal. Nose: Nose normal. Mouth/Throat: Mouth: Mucous membranes are dry. Pharynx: Oropharynx is clear. Eyes: General: Lids are normal. No scleral icterus. Extraocular Movements: Extraocular movements intact. Pupils: Pupils are equal, round, and reactive to light. Cardiovascular: Rate and Rhythm: Normal rate. Musculoskeletal: Cervical back: Normal range of motion. Pulmonary: Effort: Pulmonary effort is normal. No accessory muscle usage or respiratory distress. Skin: General: Skin is warm. Findings: No rash. Comments: No acute rash visualized on exposed skin Neurological: Mental Status: She is alert and oriented to person, place, and time. GCS: GCS eye subscore is 4. GCS verbal subscore is 5. GCS motor subscore is 6. Cranial Nerves: No dysarthria or facial asymmetry. Sensory: Sensation is intact. Motor: Motor function is intact. Coordination: Coordination is intact. NIH Scale: LOC: 0 - alert LOC Questions: 0 - answers both correctly LOC Commands: 0 - performs both correctly Best gaze: 0 - normal Vision: 0 - no visual loss Facial Palsy: 0 - normal Left arm: 0 - no drift Right arm; 0 - no drift Left le - no drift Right le - no drift Limb ataxia: 1 - present in one limb (left) Sensation: 0 - normal Best language: 0 - no aphasia Dysarthria: 0 - normal articulation Extinction and inattention: 0 - no neglect Stroke Scale: 1 Laboratory & Radiological Imaging (if done): Labs Reviewed URINALYSIS - Abnormal; Notable for the following components: Result Value Clarity, Urine Cloudy (*) Protein, Urine 30 (*) Blood, Urine Small (*) Leukocyte Esterase, Urine Large (*) WBCs, Urine >180 (*) RBCs, Urine 115 (*) Bacteria, Urine Many (*) WBC Clumps, Urine Many (*) All other components within normal limits Narrative: Microscopic examination is performed on all urinalysis samples and only positive findings are reported. The test for blood on the chemical analytic portion of urinalysis may also be positive due to hemoglobinuria and myoglobinuria and if red blood cells are present they are quantified by microscopic examination. COMPREHENSIVE METABOLIC PANEL - Abnormal; Notable for the following components: Potassium 3.4 (*) Glucose 245 (*) Creatinine 1.47 (*) eGFR 38 (*) All other components within normal limits Narrative: [facility] has implemented the eGFR calculation approach that does not have a coefficient for race that conforms to the NKF-ASN Task Force Recommendations. TROPONIN - Abnormal; Notable for the following components: Troponin T 46 (*) All other components within normal limits CBC WITH AUTO DIFFERENTIAL - Abnormal; Notable for the following components: WBC 13.87 (*) MPV 9.2 (*) Neutrophils Abs 10.11 (*) Monocytes Abs 0.98 (*) All other components within normal limits LIPASE - Normal BLOOD CULTURE AEROBIC/ANAEROBIC BLOOD CULTURE AEROBIC/ANAEROBIC CBC AND DIFFERENTIAL Narrative: The following orders were created for panel order CBC and Differential. Procedure Abnormality Status --------- ------ CBC Auto Differential[[id number]] Abnormal Final result Please view results for these tests on the individual orders. TROPONIN LACTIC ACID, PLASMA XR Chest 1 View Final Result 1. No acute cardiopulmonary disease. Workstation ID: [id number] CT Head Or Brain Without Contrast Final Result No acute intracranial process. No substantial change since 10/22/2023. Workstation ID: [id number] Procedures: Procedures ED Course / Medical Decision Making: I did personally review Kristen's past medical history, surgical history, social history, as well as family history (when relevant). After reviewing the items above, I did look at previous medical documentation. Social conditions impacting the patients care are: nursing facility Some Differential Diagnoses Include: Intracranial bleed intracranial mass pneumonia pneumothorax Labs/Imaging: no bleed. Troponin elevated. Leukocytosis, UA positive for uti ED course: Patient presents emergency department for dizziness symptoms with nausea vomiting x 3 to 4 weeks. Patient with abnormal [id number] on the left side. Should this be a stroke, patient would be outside window for TNK and thrombectomy. Daughter who came later at the bedside stated that patient had recent imaging of CT head showing NPH, though states that she has not seen or followed up with a neurosurgeon yet. Will admit for further management Shared decision making used: yes Code Status: Full . Clinical Impression: 1. Dizziness 2. NPH (normal pressure hydrocephalus) (HCC) 3. Nausea and vomiting, unspecified vomiting type 4. Complicated UTI (urinary tract infection) 5. Elevated troponin Disposition: ED Disposition ED Disposition Hospitalize Condition -- Comment Reason for inpatient over two midnights: uti and nph work up Urbano Reis MD, MD ED Attending Physician [facility] EMERGENCY DEPARTMENT Urbano Reis MD 12/10/23 8416 [facility] 12-10-2023 Emergency department Triage note Pt into ED from [facility] for "Illness". Pt was supposed to got to neurology appt and was unable to go d/t not feeling well. This RN noted emesis to her shirt pt states she feels nauseated and has been vomiting. [facility] 12-10-2023 Emergency department Note Bed: 17 Expected date: Expected time: Means of arrival: Comments: Arlene [facility] 10-25-2023 History of Present illness Narrative [facility] [address] [facility] [address] [facility] [id number] Kristen Mann returns to the office today for right knee pain. She had a fall last Wednesday landing on an injury in the right knee. She was evaluated in the emergency room and was told that there was no fracture evident on imaging. She states that the emergency room staff believes that her fall was related to her blood sugars and/or blood pressure. Her blood sugars have been running very high. At today's office visit when she checked it it registered as high. She does report being compliant with her diabetic medication regimen. Today she is ambulating with a walker. Her son is here with her today. She has been taking OTC pain medications as needed but continues to have pain in that right knee. Her last hemoglobin A1c was 11.6 on 09/30/2023. She says on a daily basis, overall she just does not feel well. She denies any instability of the knee. The patient's past medical history, surgical history, social history, family history, medications and allergies were reviewed with the patient today and are available in the chart for further review. Allergies Allergen Reactions Morphine Shortness Of Breath Penicillins Rash Sulfa (Sulfonamide Antibiotics) Hives Current Outpatient Medications: acetaminophen (TYLENOL ER) 650 MG CR tablet, Take 2 (two) tablets (1,300 mg total) by mouth every 8 (eight) hours as needed for pain ., Disp: , Rfl: BD AutoShield Duo Pen Needle 30 gauge x 3/16" Ndle, , Disp: , Rfl: cholecalciferol, vitamin D3, 50 mcg (2,000 unit) Tab, Take 1 (one) tablet (2,000 Units total) by mouth nightly ., Disp: , Rfl: ezetimibe (ZETIA) 10 mg tablet, Take 1 (one) tablet (10 mg total) by mouth daily ., Disp: , Rfl: insulin glargine (LANTUS) 100 unit/mL injection, Inject 45 (forty five) Units under the skin nightly ., Disp: , Rfl: meclizine (ANTIVERT) 12.5 mg tablet, Take 1 (one) tablet (12.5 mg total) by mouth 2 (two) times a day as needed for nausea ., Disp: , Rfl: midodrine (PROAMATINE) 5 MG tablet, Take 0.5 (one-half) tablet (2.5 mg total) by mouth 3 (three) times a day ., Disp: 135 tablet, Rfl: 3 potassium chloride SA (K-DUR,KLOR-CON) 20 MEQ tablet, Take 1 (one) tablet (20 mEq total) by mouth 2 (two) times a day ., Disp: , Rfl: senna (SENOKOT) 8.6 mg tablet, Take 1 (one) tablet (8.6 mg total) by mouth daily ., Disp: , Rfl: senna-docusate (SENNA-S) 8.6-50 mg, Take 1 (one) tablet by mouth nightly ., Disp: 30 tablet, Rfl: 0 venlafaxine (EFFEXOR-XR) 150 MG 24 hr capsule, Take 1 (one) capsule (150 mg total) by mouth daily ., Disp: , Rfl: vibegron (Gemtesa) 75 mg Tab, Take 1 (one) tablet (75 mg total) by mouth daily ., Disp: , Rfl: Past Medical History: Diagnosis Date Asthma Atopy Diabetes (HCC) Eczema GERD (gastroesophageal reflux disease) Granulomatous disease (HCC) Hyperlipidemia Migraine headache Recurrent UTI 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HCC) Tachycardia Past Surgical History: Procedure Laterality Date APPENDECTOMY CARDIAC CATHETERIZATION CARDIAC PACEMAKER PLACEMENT SECTION, CLASSIC x2 CHOLECYSTECTOMY OPEN EP - DEVICE N/A 12/20/2020 Procedure: Loop Recorder Implant; Surgeon: Lenard Das MD; Location: EP LAB; Service: Cardiovascular EP - DEVICE N/A 12/15/2021 Procedure: Pacemaker Implant (Dual PPM 12-15-21 at 0600/0800); Surgeon: Lenard Das MD; Location: EP LAB; Service: Cardiovascular EP - DEVICE N/A 05/08/2022 Procedure: Pacemaker Lead Revision; Surgeon: Radha Hubbard DO; Location: [facility] EP LAB; Service: Cardiovascular EYE SURGERY HYSTERECTOMY KYPHOPLASTY N/A 07/08/2023 Procedure: KYPHOPLASTY; Surgeon: Brooklyn Lynn MD; Location: Main OR; Service: Neurological Social History Socioeconomic History Marital status: Number of children: 3 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 Tobacco Use Smoking status: Never Smokeless tobacco: Never Vaping Use Vaping Use: Never used Substance and Sexual Activity Alcohol use: No Drug use: No Social History Narrative Pets: dog Social Determinants of Health Food Insecurity: No Food Insecurity (10/01/2023) Hunger Vital Sign Worried About Running Out of Food in the Last Year: Never true Ran Out of Food in the Last Year: Never true Transportation Needs: No Transportation Needs (10/01/2023) PRAPARE - Transportation Lack of Transportation (Medical): No Lack of Transportation (Non-Medical): No Housing Stability: Low Risk (10/01/2023) Housing Stability Vital Sign Unable to Pay for Housing in the Last Year: No Number of Places Lived in the Last Year: 1 Unstable Housing in the Last Year: No ROS: Review of Systems Musculoskeletal: Positive for arthralgias, gait problem, joint swelling and myalgias. ORTHO: Right Knee Exam Tenderness The patient is experiencing tenderness in the lateral joint line, medial joint line, patella, medial retinaculum, lateral retinaculum and pes anserinus. Range of Motion Extension: -5 Flexion: 110 Tests Varus: negative Valgus: negative Drawer: Anterior - negative Posterior - negative Other Erythema: absent Scars: absent Sensation: normal Pulse: present Swelling: mild Effusion: effusion present Imaging: Right knee: No acute fracture or dislocation. There are moderate to severe degenerative changes in the right knee. Most severe is in the patellofemoral joint space. Small joint effusion. Assessment/Plan: After examination and reviewing the patient x-ray images we discussed treatment options for the right knee. I did explain to her at this point in time with an A1c of 11.6 I did not feel comfortable giving her cortisone injection. Therefore, I encouraged her to continue with OTC pain medications as well as start using the more supportive brace on that right knee. I did suggest wearing this throughout the day and taking it off at that time. We also discussed the importance of keeping her blood sugar under good control. We did discuss different dietary changes. I also explained to her that if she were to want to move forward with a right total knee replacement that her A1c would need to be 7.5 or below. I will see her back as needed. documented in this encounter [facility] 08-17-2023 History of Present illness Narrative [facility] Physicians [facility] Neurosurgery [address] [place], [place] [id number] Follow Up for Kristen Mann : 1950 Provider: Poornima Fernandez CNP Dear Olivier Acosta MD, I had the pleasure of seeing Kristen Mann for a neurosurgical follow up visit today. ASSESSMENT/PLAN: There are no diagnoses linked to this encounter. -Kristen Mann is 6 weeks s/p L1 and L3 Kyphoplasty with Dr Lynn on 07/08/2023. -Stable post-op course. Has started PT and is doing well. Doing PT 2x per week. -Continue to follow with pain management for pain medications. -Add in heat and/or ice treatments to daily regimen. -Continue activity restrictions; I advised to minimize forward bending, twisting, and lifting over 10 pounds. -Visit date not found: Follow up with Neurosurgery in 4 weeks. -I utilized spinal models and diagrams to act as visual aids during counseling today. I greatly appreciate the opportunity to take part in Kristen Mann's care. Please do not hesitate to call with any questions or concerns. Sincerely, Poornima Fernandez CNP [facility] Neurosurgery Chief Complaint Patient presents with Post-op 4 week f/u after kyphoplasty HPI: Kristen Mann was seen today for neurosurgical follow up. Kristen Mann underwent a L1 and L3 Kyphoplasty with Dr Lynn on 07/08/2023 due to L1 and L3 vertebral body compression fractures with intractable lumbar pain. -She has a pain management physician and currently takes transdermal buprenorphine 15mcg/hr patch. -Reports her back pain is decreased to a "dull ache". No numbness or tingling of the lower extremities. Sensation is intact. No weakness reported. -States aching is worse the day after PT. States she has not tried heat or ice to area. We discussed trying this. -Denies numbness/tingling to legs and feet. -Denies loss of bowel/bladder. Allergies and medication list were reviewed with the patient. OARRS/NARxCHECK Report Received and Assessed: 07/19/2023 Date controlled substance agreement signed: No data found Date of last drug screen: No data found Functional Assessment: Narcotic 371 Sedative [address] Hinton in [place] for pain management Exam: Alert and oriented x 3. Pleasant and cooperative with care. Breathing is even and unlabored. Uses a wheelchair when fatigued and FWW for ambulation at home. Sensation: intact to light touch to extremities Normal peripheral muscular tone and bulk to upper and lower extremities Motor Strength: Right Strength Left 5 Hip Flexion (Iliopsoas) 5 5 Knee Extension (Quads) 5 5 Knee Flexion (Hamstrings) 5 5 Dorsiflexion (Tibialis Anterior ) 5 5 Plantarflexion (gastroc) 5 5 EHL 5 Reflexes: Right Reflexes Left 2+ Patellar 2+ Puncture areas are healing well, flat, non-tender to palpation. No drainage or erythema present. documented in this encounter [facility] 08-10-2023 Instructions Leila Ferrell RN - 08/10/2023 11:37 AM EST Your physician has recommended you have a regadenosone (Nuclear Perfusion Stress Test). PHARMACOLOGIC NUCLEAR STRESS TEST What is it? The Pharmacologic Nuclear Stress Test is a diagnostic exam used to determine if the heart muscle is getting the blood supply it needs. Preparation 1. Do not eat or drink anything after midnight the night prior to your test. 2. Do not smoke the morning of the test. 4. Unless otherwise directed by your physician, do not take any of your medications the evening before or morning of your test. (Note* Xanthene derivates, such as Theophylline, Rogelio-dur, or Rogelio-24, and Persantine (dipyridamole) must be held for 3 days prior to your test) 5. Bring your morning medications. The nurse will instruct you when to take your pills. 6. Bring a snack. You will be asked to eat after the stress portion of the test. 7. No coffee or tea, regular or decaf, or caffeine products, such as chocolate, can be taken for 24 hours prior to having your test. If you are taking elnd-dlv-gwghbbd medications, such as cold tablets or pain relievers, make sure that caffeine is not an ingredient. Your test will be cancelled if you have consumed any caffeine. 8. Wear comfortable clothes and comfortable shoes. A sweater is suggested for the waiting room. 9. This test involves a lot of waiting. You may want to bring a book, paper, magazine, etc. What to expect We will obtain a brief history emphasizing current symptoms and pertinent family history. A small intravenous (IV) line is inserted into your arm and electrodes are attached to your chest. The first dose of imaging agent is injected through the IV. Resting images are obtained at least 60 minutes later with the nuclear imaging camera. The stress medication is infused through your IV to increase blood flow through the coronary arteries. You may be asked to walk slowly on a treadmill during the infusion. A second dose of imaging agent is injected in the IV, followed by a second set of images under the nuclear camera 60 minutes after the infusion. This test takes about 4-6 hours. You will be notified of your results within 7-10 business days. Urgent results will be reported within 24 hours. documented in this encounter [facility] 08-10-2023 History of Present illness Narrative Electrophysiology Clinic Follow-up Heart & Vascular [facility] 08/10/2023 Radha Hubbard DO [address] [facility] [address] [facility] [address] Patient: Kristen Mann Date of : 1950 (73 y.o.) Referring Provider: Olivier Acosta MD PCP: Olivier Acosta MD Assessment & Plan Assessment: Chest discomfort AV block [employer] dual chamber PPM RV lead revision 05/2022 with improvement in chest pain Hypokalemia Orthostatic Hypotension/Syncope UTI DM GERD Stroke Device Interrogation: Est. Battery/Charge Time: 8 yrs Magnet Rate: 100 ppm Presenting EGM: /VS @ 98 bpm Underlying Rhythm: SR @ 99 bpm Sensing, Impedances, Thresholds: STABLE AP: <1% RVP: <1% AFib [place]: <1% Plan: Chest discomfort Recommend [facility] near [place]. Low suspisicon for angina but at this time when others missed her back issues she is worried about potentially missing a cardiac problem. Which is reasonable to investigate. I mentioned if stress is negative then we have to attribute the discomfort to PPM and it is likely muscular discomfort. Recommended NSAIDs, heat, stretching and if still having a lot of discomfort we could consider submuscular reposition or even extraction with MICRA implant as her pacing burden is <1%. Patient understands the options above. Pacemaker Functioning well as noted above. AHRE Noted some of the atrial tachycardia/AFL noted by Dr. Ramirez. Will recommend discontinuation of Cardizem at this time as we are battling her orthostatic concerns and dizziness. The episodes are infrequent and when they are more prominent we can consider reevaluation with OAC or even AV chad agents. But lets stick to being off Cardizem. Orthostatic Syncope Recommend Midodrine 2.5mg TID continuation, discontinue Cardizem. Follow-up in a year. Appreciate the opportunity to take care of Kristen Mann. Please do not hesitate to contact with any questions. Radha Hubbard DO Electrophysiology [facility] A total of 35 time was spent reviewing the patient encounter, documentation, reviewing the chart. To expedite correspondence this note was generated by [employer] voice recognition software. Some grammatical or spelling errors may occur using the system Follow-up: Return in about 1 year (around 08/10/2024). Chief Complaint: Establish Care (meds CDZ, midodrine) Subjective History of Present Illness: Kristen Mann is a 73 y.o. female history of AV block, asthma, type 2 diabetes, hyperlipidemia, GERD, migraine, retinal hemorrhage, stroke who underwent RV lead revision back in May 2022 due to pacemaker lead malfunction and chest discomfort. Afterwards she had multiple hospitalizations for UTI, constipation, fall with vertebral fractures. She subsequently had significant back discomfort leading to vertebral fracture workup and surgical intervention. At her past visit we also discussed having some autonomic dysfunction and start of midodrine due to some syncopal events. She presents today for EP follow-up. Interval history: Since our last visit she was seen by Dr. Ramirez and started on Cardizem for control of some more frequent AHRE that were fast in nature. Unfortunately with the start of Cardizem the patient is starting to notice more imbalance and concern for dizziness. We were helping to target some of her autonomic dysfunction/orthostatic intolerance in the past with addition of Midodrine 5mg TID she was then decreased to 2.5mg TID due to increased pressures noted by Dr. Ramierz. Today she is concerned about some worsening imbalance concerns with lower BP. Along with that she is also having chest discomfort that is left sided substernal with neck and lower chest radiation. Can be constant. No exertional changes. Some of it does seem related to device site. Past Cardiac Testing ECG: Sinus rhythm with left axis deviation in the past Limited echocardiogram March 2023 with LVEF 62%. Echo 05/2022: Last echocardiogram with LVEF 65% Objective Tobacco Use Smoking Status Never Smokeless Tobacco Never Imaging: I independently reviewed the EKG and agree with the interpretation(s) with the following comments. ECG 12 Lead Final Result by Interface, Lab Results In [facility] (07/08/2023 1257) Echocardiogram limited Final Result by Gisele Church MD (03/22/2023 1153) Echocardiogram limited with contrast Final Result by Jaguar Forbes DO (05/08/2022 0908) Echocardiogram complete w contrast Final Result by Patricia Dowling MD (11/21/2021 1405) Echocardiogram complete Final Result by Marcia Barrientos MD (02/09/2018 1023) Transesophageal Echocardiogram Final Result by Axel Soares MD (10/16/2015 0935) HOME Medications: Patient's Medications New Prescriptions No medications on file Previous Medications ACETAMINOPHEN (TYLENOL ER) 650 MG CR TABLET Take 2 (two) tablets (1,300 mg total) by mouth every 8 (eight) hours as needed for pain . ALBUTEROL 90 MCG/ACTUATION INHALER Inhale 2 (two) puffs every 6 (six) hours as needed for wheezing . ASCORBIC ACID, VITAMIN C, (VITAMIN C) 100 MG TABLET Take 1 (one) tablet (100 mg total) by mouth daily . BD AUTOSHIELD DUO PEN NEEDLE 30 GAUGE X 3/16" NDLE BUPRENORPHINE (BUTRANS) 15 MCG/HOUR TRANSDERMAL PATCH Place 1 (one) patch on the skin once a week On Wednesday . CETIRIZINE-PSEUDOEPHEDRINE (ZYRTEC-D) 5-120 MG PER TABLET Take 1 (one) tablet by mouth daily . CHOLECALCIFEROL, VITAMIN D3, 50 MCG (2,000 UNIT) TAB Take 1 (one) tablet (2,000 Units total) by mouth nightly . D-MANNOSE ORAL Take 1 capsule by mouth 2 (two) times a day . DILTIAZEM (CARDIZEM SR) 120 MG 12 HR CAPSULE Take 1 (one) capsule (120 mg total) by mouth 2 (two) times a day . EZETIMIBE (ZETIA) 10 MG TABLET Take 1 (one) tablet (10 mg total) by mouth daily . GEMTESA 75 MG TAB Take 1 (one) tablet (75 mg total) by mouth daily . INSULIN GLARGINE (LANTUS) 100 UNIT/ML INJECTION Inject 35 (thirty five) Units under the skin daily . MECLIZINE (ANTIVERT) 12.5 MG TABLET Take 1 (one) tablet (12.5 mg total) by mouth 2 (two) times a day as needed for nausea or dizziness . MIDODRINE (PROAMATINE) 5 MG TABLET Take 0.5 (one-half) tablet (2.5 mg total) by mouth 3 (three) times a day . NOVOLOG U-100 INSULIN ASPART 100 UNIT/ML INJECTION OMEPRAZOLE (PRILOSEC) 20 MG CAPSULE Take 1 (one) capsule (20 mg total) by mouth daily . POTASSIUM CHLORIDE SA (K-DUR,KLOR-CON) 20 MEQ TABLET Take 1 (one) tablet (20 mEq total) by mouth 2 (two) times a day . ROSUVASTATIN (CRESTOR) 5 MG TABLET Take 1 (one) tablet (5 mg total) by mouth twice weekly Start: 06/21/23. VENLAFAXINE (EFFEXOR-XR) 150 MG 24 HR CAPSULE Take 1 (one) capsule (150 mg total) by mouth daily . Modified Medications No medications on file Discontinued Medications No medications on file Physical Examination: BP 118/78 (BP Location: Right arm, Patient Position: Sitting, BP Cuff Size: Adult) Pulse 97 Ht 5' 6" Wt 83 kg (183 lb) BMI 29.54 kg/m Lab Results Component Value Date CHOL 227 (H) 02/09/2018 LDLCALC 135 (H) 02/09/2018 TRIG 194 (H) 02/09/2018 HDL 53 02/09/2018 Creatinine clearance cannot be calculated (Patient's most recent lab result is older than the maximum 14 days allowed.) documented in this encounter [facility] 07-19-2023 History of Present illness Narrative [facility] Physicians [facility] Neurosurgery [address] [place], [place] [id number] Follow Up for Kristen Mann : 1950 Provider: Poornima Fernandez, FREDDIE Dear Olivier Acosta MD, I had the pleasure of seeing Kristen Mann for a neurosurgical follow up visit today. ASSESSMENT/PLAN: There are no diagnoses linked to this encounter. -Kristen Mann is 2 weeks s/p L1 and L3 Kyphoplasty with Dr Lynn on 07/08/2023. -Stable post-op course. Has started PT and is doing well. -Continue to follow with pain management for pain medications. -Continue activity restrictions; I advised to minimize forward bending, twisting, and lifting over 10 pounds. -Provided a 15 days supply script of Antivert to help with dizziness and nausea related to vertigo until patient can f/u with PCP. -Visit date not found: Follow up with Neurosurgery in 4 weeks. -I utilized spinal models and diagrams to act as visual aids during counseling today. I greatly appreciate the opportunity to take part in Kristen Mann's care. Please do not hesitate to call with any questions or concerns. Sincerely, Poornima Fernandez CNP [facility] Neurosurgery Chief Complaint Patient presents with Post-op Post-op follow up 1 week to check her kyphoplasty site HPI: Kristen Mann was seen today for neurosurgical follow up. Kristen Mann underwent a L1 and L3 Kyphoplasty with Dr Lynn on 07/08/2023 due to L1 and L3 vertebral body compression fractures with intractable lumbar pain. -She has a pain management physician and currently takes transdermal buprenorphine 15mcg/hr patch. -Complains of some vertigo in which she is getting a spinning feeling and nausea and vomiting. Encouraged to follow up with PCP regarding this topic, but will prescribe Meclizine PRN in the meantime. -Reports her back pain is decreased to a "dull ache". No numbness or tingling of the lower extremities. Sensation is intact. Allergies and medication list were reviewed with the patient. OARRS/NARxCHECK Report Received and Assessed: 07/19/2023 Date controlled substance agreement signed: No data found Date of last drug screen: No data found Functional Assessment: Narcotic 371 Sedative [address]ul[address] Hinton in [place] for pain management Exam: In wheelchair for visit. Uses a wheelchair when dizzy and FWW for ambulation at home. Sensation: intact to light touch to extremities Normal peripheral muscular tone and bulk to upper and lower extremities Motor Strength: Right Strength Left 5 Hip Flexion (Iliopsoas) 5 5 Knee Extension (Quads) 5 5 Knee Flexion (Hamstrings) 5 5 Dorsiflexion (Tibialis Anterior ) 5 5 Plantarflexion (gastroc) 5 5 EHL 5 Reflexes: Right Reflexes Left 2+ Patellar 2+ Puncture areas are healing well, flat, non-tender to palpation. No drainage or erythema present. documented in this encounter [facility] 06-17-2023 Telephone encounter Note Pt requested medication go to different pharmacy. [facility] 06-17-2023 Miscellaneous Notes Pt requested medication go to different pharmacy. documented in this encounter [facility] 05-28-2023 History of Present illness Narrative Neurosurgery Clinic Consult Neurosurgery [facility] 05/28/2023 Brooklyn Lynn MD [address] [place] [address] OFFICE [facility] [id number] Patient: Kristen Mann Date of : 1950 (73 y.o.) Referring Provider: Callie Ramirez MD PCP: Olivier Acosta MD ASSESSMENT & PLAN: Kristen Mann is a 73 y.o. female with pmhx of osteoporosis, diabetes mellitus, orthostatic hypotension and pacemaker placement presenting with intractable thoraco-lumbar pain and bilateral leg painwhich significantly affects her quality of life. No cauda equina symptoms.The patient underwent T11 and T12 kyphoplasty, steroid injections and is currently on a Buprenorphine patch with limited relief. I reviewed the lumbar MRI performed in September 2022 prior to the kyphoplasty with the patient. Discussed about potential surgical options including neuromodulation options. No new fracture or instability on Xrays performed in clinic today. Given her progressive/severe symptoms since September, as MRI of the thoracic and lumbar pain was requested for further investigation. The patient inquired about RFA today and I encouraged her to speak with his pain medicine provider about this. In terms of the intermittent chest pain and leg edema, she will follow up with her PCP. A doppler ultrasound of the left leg was requested to rule out DVT in setting of immobility given the calf tenderness. Aware to present to ER if new or worsening symptoms. Additional Comments: Answered questions and discussed assessment and plan at length. I instructed patient to contact me sooner with concerns. Time statement: A total of 47 minutes were spent [id number] with the patient during this encounter and over half of that time was spent on counseling and coordination of care. SUBJECTIVE: Chief Complaint: Back Pain (Patient presents today for a new patient for lumbar back pain. Patient states that walking is difficult for her to do. ) History of Present Illness (HPI): Kristen Mann is a 73 y.o. female presents to my clinic for the first time today. Due to her history and workup, I have been asked to consult on chronic thoracic and lumbar pain. The patient states she started having severe pain in July. Had issues with BP and states she had a syncopal event, had some falls in August and September. No other falls. No infection symptoms. She underwent a T11 and T12 kyphoplasty a few months ago with no improvement in her pain as per the patient. She had ongoing pain since then that is rated as extreme severe pain. Had several injections with no improvement. Was started two months ago on Buprenorphine with some minimal improvement. Was on Fentanyl/Oxycodone before. Tried Gabapentin with no relief; she equally tried PT with no relief. Reports that now the pain is constant but is worse with movement; has to stop walking less than 10 min. Pain is intermittently irradiating in the posterior aspect of both thighs. The pain stops at the knee. Has intermittent left leg edema and aching. LBP is worse then the leg pain. No numbness, reports diffuse wekness in the legs. No bowel/bladder dysfunction, no saddle anesthesia. The pain is significantly affecting her quality of life. States she has intermittent chest pain. She is followed by Dr. Ramirez. No SOB, pain is stable. No pleuritic pain. Patient apparently required revision of her pacemaker leads in December. She will discuss with her health concierge and PCP about this. Review of Systems: All systems reviewed and negative except pertinent positives and negatives documented in the History of Present Illness (HPI). Medications: has a current medication list which includes the following prescription(s): ascorbic acid (vitamin c), buprenorphine, cetirizine-pseudoephedrine, cholecalciferol (vitamin d3), diltiazem, esomeprazole, ezetimibe, gemtesa, hydrocodone-acetaminophen, insulin glargine, meclizine, meloxicam, midodrine, novolog u-100 insulin aspart, potassium chloride sa, rosuvastatin, venlafaxine, and albuterol. 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4 F (36.9 C) Resp 18 SpO2 95% Patient in wheelchair , in pain. Needs my assistance to make a few steps. Diffuse pain in the midline and paraspinal lumbar and lower thoracic pain as well as positive SI joint tenderness bilaterally.No midline cervical pain. No step-off SLT negative for radicular but positive for axial lumbar pain at 30 deg RUE: 5/5 delt, 5/5 bi, 5/5 tri, 5/5 we, 5/5 wf, 5/5 die finisher forging/int LUE: 5/5 delt, 5/5 bi, 5/5 tri, 5/5 we, 5/5 wf, 5/5 die finisher forging/int Motor exam in LE limited by pain RLE: 4/5 hf, 4+/5 ke, 5/5 df, 5/5 pf, 5/5 ehl LLE: 4-/5 hf, 4+/5 ke, 5/5 df, 5/5 pf, 5/5 ehl No gross sensory deficits Symmetric 1/4 DTRs, achilles not ellicited No Gomez, no clonus, no Babinski. Head: atraumatic Neck: supple, no meningismus CV: regular pulses, L>R peripheral edema, left calf tenderness Resp: no respiratory distress, no use of accessory muscle Abdomen: non-distended Musculoskeletal: normal bulk, normal tone DATA REVIEWED: Radiology images below independently reviewed by me: MRI Lumbar Spine without contrast dated 09/30/2022 from imaging scanned into [facility] showed multilevel degenerative changes with grade 1 L4-5 spondylolisthesis. T12 compression fracture with no retropulsion. No severe spinal canal stenosis. No spinal cord signal change. X-ray Thoracic and Lumbar Spine dated today from [facility] showed stable L1 and L3 compression deformities and L4-5 spondylolisthesis at L4-5. No spinal instability. documented in this encounter [facility] 05-04-2023 History of Present illness Narrative Associated Order(s): LG Jt Injection/Arthrocentesis: R knee Post-Procedure Diagnose(s): Primary osteoarthritis of right knee 05/04/23 Kristen Mann 1950 HISTORY of Present Illness: Kristen Mann is a 73 y.o. year old female that presents today with right knee pain. Kristen Mann has had injections in the past. Last injection to right/left knee was 05/25/22 and they tolerated well. They have been treated w/ oral medications & injections. Patient denies new injury to the knees. The following portions of the patient's history were reviewed and updated as appropriate: allergies, current medications, past surgical history and problem list PAST MEDICAL HISTORY The patient's Medications, Allergies, Past Surgical History, Medical History, Family History and Social History were reviewed and can be found in their online medical record, and I have reviewed this information with Kristen Mann at the time of their visit. They are significant for Past Medical History: Diagnosis Date Asthma Atopy Diabetes ([facility]) Eczema GERD (gastroesophageal reflux disease) Granulomatous disease ([facility]) Hyperlipidemia Migraine headache Recurrent UTI 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[facility]) Tachycardia IMAGING Notes: none new today. Reviewed from last visit. IMPRESSION And PLAN: Cortisone injection today. Will follow up in 3 months if effective. Call if no improvement in 10 days. 1. Primary osteoarthritis of right knee LG Jt Injection/Arthrocentesis: R knee Performed by: Eliecer Hill CNP Authorized by: Eliecer iHll CNP CPT 91394 - Large Joint Arthrocentesis: Consent given by: Patient Time out: Immediately prior to the procedure a time out was called Physician or proceduralist has discussed critical or nonroutine steps, procedure duration and anticipated blood loss: Yes Supporting Documentation: Indications: Pain, joint swelling and diagnostic evaluation Procedure Details: Location: Knee Site: R knee Prep: patient was prepped and draped in usual sterile fashion Needle size: 22 G Approach: Anterolateral Medications: 40 mg triamcinolone acetonide 40 mg/mL Anesthetic used: Lidocaine 1% Anesthetic amount (mL): 2 Patient tolerance: Patient tolerated the procedure well with no immediate complications Eliecer Hill CNP documented in this encounter [facility] 03-23-2023 Telephone encounter Note ----- Message from Callie Ramirez MD sent at 03/23/2023 10:56 AM EDT ----- Cholesterol is still too high even with Zetia, would she be willing to do 5 mg Crestor twice weekly? [facility] 03-23-2023 Miscellaneous Notes ----- Message from Callie Ramirez MD sent at 03/23/2023 10:56 AM EDT ----- Cholesterol is still too high even with Zetia, would she be willing to do 5 mg Crestor twice weekly? documented in this encounter [facility] 03-23-2023 Instructions Callie Ramirez MD - 03/23/2023 8:21 AM EDT Images from the original note were not included. How to Contact your Care Team: Provider: Dr. Callie Ramirez MD Clinic Nurse: Maggie Faith RN REFILLS: When in need for refills please call your care team or the office at [phone]. Please include medication name, pharmacy name, and specify 30-day or 90-day supply. Please check with your pharmacy within 24 hours of request for your refill. You must follow up as directed to continue current refills. Thank you! Patient Instructions So great to see you today! Please do not hesitate to call me if you have any questions! Here are the things we talked about... Water aerobics Delores referral Try ibuprofen - and voltaren Midodrine cut down to 2.5mg Start diltizem 120mg documented in this encounter [facility] 03-23-2023 History of Present illness Narrative General Cardiology Returning Patient Clinic Visit [facility], Heart & Vascular 03/23/2023 Callie Ramirez MD [address] [place] [phone] [facility] Physician [facility], physician's office 03/23/2023 Patient: Kristen Mann Date of : 1950 (73 y.o.) Referring Provider: Olivier Acosta MD PCP: Olivier Acosta MD Chief Complaint: Follow-up (7mo, previous Campos/ C/P yesterday) Date of Service: 03/23/2023 Assessment and Plan: 1. Syncope 2. Atrial tachycardia 3. Pacemaker 4. Dyslipidemia Most likely patient's episode of syncope was orthostatic in nature, she follows with electrophysiology in [place], and has started on midodrine with good result Review of recent pacemaker interrogation showing that she is having 70% atrial tachycardia burden, some episodes seem borderline consistent with atrial fibrillation based on heart rates, though does not meet time criteria, we will start diltiazem today, concerned that metoprolol was leading to some hypotension. I did also review with her the pathophysiology of orthostatic symptoms, blood pressures have been in the 150s so we are going to cut midodrine today to 2.5 mg 3 times daily. She seems much more focused today on her back pain and so I have made a referral to Dr. Estrella for evaluation of any surgical options. She is following with [place] for her pacemaker, but she will have pacemaker checks with us in [place]. If patient is following with EP, she does not necessarily need general cardiology Lipids are followed by PCP, currently on Zetia, LDL cholesterol is still too high despite Zetia, will see if patient would be willing to try 5 mg of Crestor twice weekly and uptitrate from there It has been a pleasure caring for this patient. Please don't hesitate to reach out to my office directly with any questions or concerns. Follow-up: Return in about 1 year (around 03/23/2024). Callie Ramirez MD, [facility] Non-Invasive Cardiology [facility] P:[phone] F:[phone] History of Present Illness: Kristen Mann is a 73 y.o. woman with a past medical history of atrial tachycardia, AV block status post pacemaker, orthostatic hypotension with recent fall who presents today to establish care. Previously following with Dr. Campos, following with [place] electrophysiology. Her biggest complaints today are her lower back pain, and from a cardiovascular perspective she denies any complaints of palpitations dizziness or lightheadedness. Since starting midodrine she has not had any episodes of hypotension or falls or near falls. Per Dr. Campos's note: We have been following her with our EP group for a number of different issues, she has had evidence of heart block as well as episodes of atrial tachycardia. I saw her in February this year. She was originally evaluated several years ago with ongoing problems related to tachycardia. She underwent an exercise myocardial perfusion study in 2018 which was normal. She had an echo completed in June 2020 that showed no significant valvular disease EF is 66%. She ultimately had a pacemaker placed here but had a number of issues post procedure and including pain at the site. When I saw her in February she wanted to go to [place] to get this addressed. She was admitted to [place] for RV lead revision in May. That was done on May 08. Medical history is otherwise notable for type 2 diabetes, history of previous stroke. She saw EP in [place] for follow-up in August. Noted on her device check she had short episodes of nonsustained VT or possibly either atrial tach or one-to-one SVT or flutter. It apparently occurred in June when she was having issues related to UTI. Objective Review of Systems: All systems were reviewed and noted to be negative unless otherwise stated in HPI. Past Medical History: Diagnosis Date Asthma Atopy Diabetes (HCC) Eczema GERD (gastroesophageal reflux disease) Granulomatous disease (HCC) Hyperlipidemia Migraine headache Recurrent UTI 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[facility]) Tachycardia Past Surgical History: Procedure Laterality Date APPENDECTOMY CARDIAC CATHETERIZATION CARDIAC PACEMAKER PLACEMENT SECTION, CLASSIC x2 CHOLECYSTECTOMY OPEN EP - DEVICE N/A 12/20/2020 Procedure: Loop Recorder Implant; Surgeon: Lenard Das MD; Location: EP LAB; Service: Cardiovascular EP - DEVICE N/A 12/15/2021 Procedure: Pacemaker Implant (Dual PPM 12-15-21 at 0600/0800); Surgeon: Lenard Das MD; Location: EP LAB; Service: Cardiovascular EP - DEVICE N/A 05/08/2022 Procedure: Pacemaker Lead Revision; Surgeon: Radha Hubbard DO; Location: [facility] EP LAB; Service: Cardiovascular EYE SURGERY HYSTERECTOMY Family History Problem Relation Age of Onset Heart disease Father Asthma Mother Social History Tobacco Use Smoking Status Never Smokeless Tobacco Never Allergies: Morphine, Penicillins, and Sulfa (sulfonamide antibiotics) All of the above information has been reviewed at today's visit and modified if necessary. Home Medications: Current Outpatient Medications: albuterol 90 mcg/actuation inhaler, Inhale 2 (two) puffs every 6 (six) hours as needed for wheezing ., Disp: 1 g, Rfl: 4 ascorbic acid, vitamin C, (vitamin C) 100 MG tablet, Take 1 (one) tablet (100 mg total) by mouth daily ., Disp: , Rfl: cetirizine-pseudoePHEDrine (ZyrTEC-D) 5-120 mg per tablet, Take 1 (one) tablet by mouth daily ., Disp: , Rfl: cholecalciferol, vitamin D3, 50 mcg (2,000 unit) Tab, Take 1 (one) tablet (2,000 Units total) by mouth nightly ., Disp: , Rfl: esomeprazole (NEXIUM) 40 MG capsule, Take 1 (one) capsule (40 mg total) by mouth daily ., Disp: , Rfl: ezetimibe (ZETIA) 10 mg tablet, Take 1 (one) tablet (10 mg total) by mouth daily ., Disp: , Rfl: 6 Gemtesa 75 mg Tab, , Disp: , Rfl: HYDROcodone-acetaminophen (NORCO) 5-325 mg per tablet, , Disp: , Rfl: insulin glargine (LANTUS) 100 unit/mL injection, Inject 35 (thirty five) Units under the skin daily ., Disp: , Rfl: meclizine (ANTIVERT) 12.5 mg tablet, Take 1 (one) tablet (12.5 mg total) by mouth 2 (two) times a day as needed for nausea ., Disp: , Rfl: meloxicam (MOBIC) 7.5 MG tablet, , Disp: , Rfl: midodrine (PROAMATINE) 5 MG tablet, Take 0.5 (one-half) tablet (2.5 mg total) by mouth 3 (three) times a day ., Disp: , Rfl: NovoLOG U-100 Insulin aspart 100 unit/mL injection, 15 units ., Disp: , Rfl: potassium chloride SA (K-DUR,KLOR-CON) 20 MEQ tablet, , Disp: , Rfl: venlafaxine (EFFEXOR-XR) 150 MG 24 hr capsule, Take 1 (one) capsule (150 mg total) by mouth daily ., Disp: , Rfl: diltiazem (CARDIZEM SR) 120 MG 12 hr capsule, Take 1 (one) capsule (120 mg total) by mouth 2 (two) times a day ., Disp: 60 capsule, Rfl: 11 Physical Exam: BP (!) 155/85 (BP Location: Left arm, Patient Position: Sitting, BP Cuff Size: X-large Adult) Pulse (!) 101 Comment: NO EKG per Dr. Ramirez Ht 5' 6.5" Wt 82 kg (180 lb 12.8 oz) SpO2 93% BMI 28.74 kg/m Constitutional: Well appearing female, no acute distress Head: Normocephalic and atraumatic. Eyes: Conjunctivae are normal, no scleral icterus, no corneal arcus Neck: No acanthosis nigricans, no elevated jugular venous distension, no hepatojugular reflux Cardiovascular: Tachycardic however regular rate and rhythm, no murmurs appreciated on today's exam, normal S1 and S2, no rubs or gallops, PMI is midline Pulses: +2 dorsalis pedis pulses bilaterally Musculoskeletal: Normal range of motion. No cyanosis. No peripheral Edema Neurological: AOx3, moving all extremities normally Skin: Skin is warm and dry, normal hair pattern Psychiatric: Normal mood and affect, appropriate conversation Cardiovascular Studies: Pacemaker interrogation from January reviewed multiple episodes of atrial tachycardia heart rates in the 340 to 400 bpm region suggestive of atrial fibrillation, some nonsustained VT, atrial tachycardia burden 70% Echocardiogram from March 2023 demonstrates ejection fraction of 62% with normal RV size and function, no valvular disease Labs: Lab Results Component Value Date GLUCOSE 89 05/08/2022 CALCIUM 9.7 05/08/2022 NA 142 05/08/2022 K 4.0 05/08/2022 CL 106 05/08/2022 BUN 15 05/08/2022 CREATININE 0.90 05/08/2022 Lab Results Component Value Date ALT 18 12/30/2021 AST 11 12/30/2021 ALKPHOS 82 12/30/2021 BILITOT 0.1 12/30/2021 Lab Results Component Value Date WBC 12.29 (H) 05/08/2022 HGB 12.9 05/08/2022 HCT 40.1 05/08/2022 MCV 89.7 05/08/2022 PLT 341 05/08/2022 RBC 4.47 05/08/2022 Lipid panel August 2022 shows triglycerides 267, cholesterol 253, HDL 47, LDL 153 Lab Results Component Value Date HGBA1C 7.8 (H) 07/02/2021 Lab Results Component Value Date ALT 18 12/30/2021 AST 11 12/30/2021 ALKPHOS 82 12/30/2021 BILITOT 0.1 12/30/2021 The 10-year ASCVD risk score (Guerrero LANGFORD, et al., 2019) is: 29% Values used to calculate the score: Age: 73 years Sex: Female Is Non- : No Diabetic: Yes Tobacco smoker: No Systolic Blood Pressure: 155 mmHg Is BP treated: No HDL Cholesterol: 47 mg/dL Total Cholesterol: 253 mg/dL documented in this encounter [facility] 10-13-2022 History of Present illness Narrative [facility] NOTE NAME: TORO MANN NO.: [id number] DATE OF SERVICE: 10/13/2022 [facility] DATE OF : 1950 NEW PATIENT HISTORY AND PHYSICAL HISTORY OF PRESENT ILLNESS: Patient is a 72-year-old female, who was admitted to [facility] with a diagnoses of recurrent syncopal episode secondary to orthostatic hypotension with history of hypertension, recent kyphoplasty for thoracic compression fractures with severe intractable acute on chronic low back pain, poorly controlled diabetes mellitus type 2, carotid artery stenosis, asthma, constipation, history of depression, GERD, hyperlipidemia, previous permanent pacemaker for sick sinus syndrome, history of sleep apnea, previous TIA, remote cholecystectomy/appendectomy/hyst erectomy and generalized weakness and debility. She was initially admitted to the hospital after experiencing recurrent syncopal episodes. The patient had been recently discharged from the hospital after undergoing a kyphoplasty for thoracic compression fractures after presenting with acute on chronic severe intractable back pain. Evaluation in the hospital did reveal findings consistent with orthostatic hypotension as the cause of her syncopal episodes. 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 She was started on Florinef as well as midodrine and bilateral lower extremities KALEB hose. Her condition was stabilized and improved and she is now admitted to our facility for continued therapy prior to returning back to home where she lives by herself. REVIEW OF SYSTEMS: She is currently resting in bed. She is alert and oriented. She just complained of back pain. She has had no change in vision or hearing. She does have a history of mild asthma which has been stable. No recent shortness of breath. No recent pneumonia, bronchitis or COVID infections. She is not vaccinated after receiving her initial shot, which caused her to be quite sick. She denies any cardiac history. No chest pain, angina, previous heart attacks, heart surgeries or pacemakers. She is actually status post permanent pacemaker for sick sinus syndrome. She has a history of hypertension, but once again presented with orthostatic hypotension. She does have hyperlipidemia. Appetite has been good. No bleeding ulcers, hepatitis or melena. No prior strokes or seizures. She is a poorly controlled diabetic. Her hemoglobin A1c level was elevated at 9.3. No bleeding problems or blood clots or thyroid problems. FAMILY HISTORY: Significant for hypertension. SOCIAL/FUNCTIONAL HISTORY: She does not smoke or abuse alcohol. She had been living at home by herself. MEDICATIONS: Clindamycin 150 mg b.i.d., mannose oral capsules 1000 mg b.i.d., esomeprazole 40 mg daily, estradiol vaginal cream Wednesday, Wednesdays and Fridays, Zetia 10 mg daily, fentanyl patch 12 mcg q.72 hours, Florinef 0.1 mg 4 tablets daily, aspart insulin 9 units subcu t.i.d., glargine insulin 40 units subcu at bedtime, metoprolol succinate 25 mg at bedtime, midodrine 5 mg t.i.d., omeprazole 20 mg daily, oxycodone p.r.n., probiotic daily, venlafaxine 150 mg daily, vitamin C 500 mg daily and vitamin D 2000 units daily. ALLERGIES: MORPHINE, PENICILLIN, SULFA ANTIBIOTICS. EXAMINATION: Afebrile, her vital signs stable. She is in no distress. HEENT: Extraocular movements intact. Sclerae nonicteric. Ears intact. Lungs: Clear. Heart: Regular. Abdomen: Soft, nontender. Bowel sounds present. Extremities: No edema. No ischemia or cyanosis. She does have generalized weakness. IMPRESSION: 1. Recurrent syncopal episode secondary to orthostatic hypotension-she has been started on Florinef and midodrine. We will monitor blood pressure closely and make adjustments as needed. 2. Recent severe acute on chronic intractable back pain secondary to thoracic compression fractures-she did undergo recent kyphoplasty. She has been under the care of a pain specialist for her chronic back pain. Maintain current treatment. She will follow up as an outpatient. Monitor her symptoms closely and make further adjustments as needed. 3. Poorly controlled diabetes mellitus type 2-we will continue to monitor blood sugar closely and make adjustments as needed. Maintain current diabetic regimen. 4. Functional assessment-she does have generalized weakness. She will be receiving rehab services for overall strengthening and conditioning. Overall condition and prognosis is quite guarded. We will obtain follow up labs including CBC and BMP. She will be returning home upon completion of her therapy. DICTATED BY: MD KELIN Castañeda/Christin JOB# [id number] cc:DR Chirinos of [place] documented in this encounter [facility] 10-12-2022 Discharge summary Note Date/Time October 12, 2022 12:23pm [facility] Medical Records Department [address] [place] [address] Transfer to [facility] MR#: [id number] Acct: [id number] Name: KRISTEN MANN Rep #:[id number] : 1950 72 From: Fozia Cervantes DO PCP: Dr. Olivier Acosta MD Status:A DM IN Certification of patient admission REQUIRED AT TIME OF ADMISSION. I CERTIFY THAT POST-HOSPITAL ECF SERVICES ARE REQUIRED TO BE GIVEN ON AN IN-PATIENT BASIS BECAUSE OF THE ABOVE NAMED PATIENT'S NEED FOR CARE HOME CARE ON A CONTINUING BASIS FOR THE CONDITION(S) FOR WHICH HE/SHE WAS RECEIVING IN-PATIENT HOSPITAL SERVICES PRIOR TO HIS/HER TRANSFER TO THE [facility]. 10/12/22 1223<Electronically signed by Fozia Cervantes DO> Diet Diet Order/Speech Therapy: 10/08/22 16:09 Diet: Cardiac: Calorie-Controlled Food consistency:: Regular Liquid Consistency:: Regular/Thin Dietary Modifications:: Cardiac / Heart Healthy How many daily calories?: 1800 calorie Routine Orders/Code Status Suppository Frequency: Daily PRN O2 Frequency: PRN Keep PO Greater than or Equal to (%): 92 Routine Lab Work: CBC and BMP Code Status: Full Code Therapies Weight Bearing: Full weight bearing Physical Therapy: Eval and Treat Occupational Therapy: Eval and Treat Problem/Diagnosis (1) History of vertebral fracture: Status: Acute Code(s): Z87.81 - Personal history of (healed) traumatic fracture (2) S/P kyphoplasty: Status: Acute Code(s): Z98.890 - Other specified postprocedural states (3) Back pain: Status: Acute Code(s): M54.9 - Dorsalgia, unspecified (4) Debility: Status: Acute Code(s): R53.81 - Other malaise (5) Syncope: Status: Acute Code(s): R55 - Syncope and collapse (6) Orthostatic hypotension: Status: Acute Code(s): I95.1 - Orthostatic hypotension Allergies/Procedures Done in Hospital Allergies morphine Allergy (Mild, Verified 09/18/22 08:39) Rash Penicillins Allergy (Mild, Verified 09/18/22 08:39) Rash Sulfa (Sulfonamide Antibiotics) Allergy (Mild, Verified 09/18/22 08:39) Rash Procedures: 2-D Echocardiogram and EKG Type of Care/Length of Stay Estimated LOS: Convalescent Care Less Than 30 days Type of Care Needed: Skilled Rehab Potential: Good Prognosis: Fair Additional Orders/Day of Discharge Day of Discharge: 10/12/22 Dietary and Speech Recommendations Dietitian Recommendations/Changes: Will change diet to 1800 julieta Cardiac diet Monitor need for ONS pending continued po intake/wt trends Available for diet education if warranted by pt Discharge Plan Admission Admit Date/Time: 10/09/22 15:53 Primary Reason for Your Visit: Syncope Attending Provider: Fozia Cervantes Primary Care Provider: Olivier Acosta Consulting Providers: Elizabeth Fuentes ; Emmanuel Hidalgo ; Henna Joseph Discharge Orders/Prescriptions Prescriptions: New fludrocortisone 0.1 mg Tablet 0.4 mg PO BREAKFAST Qty: 0 0RF fentanyl 12 mcg/hr Patch 72 Hour 12 mcg transdermal Q3D 1 Days Qty: 1 0RF midodrine 5 mg Tablet 5 mg PO TIDCM Qty: 30 0RF oxycodone 5 mg Tablet 5 mg PO Q4H PRN PRN (Reason: Pain Score 4-10) 1 Days Qty: 6 0RF sennosides-docusate sodium [Stool Softener-Stimulant Laxat] 8.6-50 mg Tablet 2 tab PO BID PRN (Reason: constipation) Qty: 0 0RF acetaminophen 500 mg Tablet 1,000 mg PO Q8 Qty: 0 0RF Continued ezetimibe [Zetia] 10 mg tablet 10 mg PO DAILY metoprolol succinate 25 mg tablet extended release 24 hr 25 mg PO QHS Label Comments: TAKE 1 TABLET BY MOUTH ONCE DAILY venlafaxine 150 mg capsule,extended release 24hr 150 cap PO DAILY esomeprazole magnesium 40 mg capsule,delayed release(DR/EC) 40 cap PO DAILY probiotic 1 tab PO DAILY ascorbate calcium (vitamin C) 500 mg tablet 500 mg PO DAILY D-Mannrose 1,000 mg PO BID Rx Instructions: 1000mg estradiol 0.01 % (0.1 mg/gram) cream 1 applic VAGINAL MOWEFR Label Comments: INSERT 1 GRAM VAGINALLY 3 TIMES A WEEK BEFORE BED cholecalciferol (vitamin D3) [Vitamin D3] 50 mcg (2,000 unit) capsule 2,000 unit PO DAILY Label Comments: TAKE 1 CAPSULE BY MOUTH ONCE DAILY insulin glargine-yfgn 100 unit/mL (3 mL) insulin pen 40 unit subcut DAILY clindamycin HCl 150 mg capsule 150 mg PO BID Changed insulin aspart U-100 [Novolog U-100 Insulin aspart] 100 unit/mL solution 8 unit subcut TID Qty: 70 0RF Discontinued nitrofurantoin monohyd/m-cryst 100 mg capsule 100 mg PO BID trimethoprim 100 mg tablet 100 mg PO DAILY Referrals / Follow Up: Elizabeth Fuentes MD [Med Staff - Active Staff] - Within 1 Week Olivier Acosta MD [Primary Care Provider] - Within 1 Month Joe Delacruz MD [Med Staff - Courtesy Staff] - See Referral Note (As scheduled in November 2022) Disposition Disposition (needs filled in before D/C Order can be placed): [facility] 10/12/22 1223 <Electronically signed by Fozia Cervantes DO> Cosigner Signature (if applicable): CC: Dr. Elizabeth Fuentes MD; Dr. Emmanuel Hidalgo DO; Dr. Henna Joseph DO; Dr. Olivier Acosta MD ~ [facility] Work Phone: [phone]) 576-330102-06-[address] Cervantes [facility] October 12, 2022 12:21pm Note Date/Time October 12, 2022 1 1:56am [facility] Medical Records Department [address] [place] [address] Discharge Summary 10/12/22 1155 MR#: [id number] Acct: [id number] Name: KRISTEN MANN Rep #:[id number] : 1950 72 From: Fozia Cervantes DO PCP: Dr. Olivier Acosta MD Status:A DM IN [facility] Prov[facility] Date of Admission: 10/09/22 Date of Discharge: 10/12/22 Primary Care Physician: Dr. Olivier Acosta MD Consultations 10/08/22 16:02 Consult: Pain Management Routine Consulting Provider: Elizabeth Fuentes Reason for Consult: vertebral fxr EMERGENT Consult: No MD Notified: Yes Date Notified: 10/08/22 Time Notified: 16:13 Method of Notification: Answering Service Reason For Visit: SYNCOPE, BACK PAIN, S/P KYPHOPLASTY Diagnosis Discharge Diagnosis (1) History of vertebral fracture: Status: Acute Code(s): Z87.81 - Personal history of (healed) traumatic fracture (2) S/P kyphoplasty: Status: Acute Code(s): Z98.890 - Other specified postprocedural states (3) Back pain: Status: Acute Code(s): M54.9 - Dorsalgia, unspecified (4) Debility: Status: Acute Code(s): R53.81 - Other malaise (5) Syncope: Status: Acute Code(s): R55 - Syncope and collapse (6) Orthostatic hypotension: Status: Acute Code(s): I95.1 - Orthostatic hypotension Medications at Discharge Home Medications ezetimibe 10 mg tablet (Zetia) 10 mg PO DAILY . 05/31/19 D-Mannrose 1,000 mg PO BID UTI 08/03/22 ascorbate calcium (vitamin C) 500 mg tablet 500 mg PO DAILY SUPPLEMENT 08/03/22 probiotic 1 tab PO DAILY SUPPLEMENT 08/03/22 esomeprazole magnesium 40 mg capsule,delayed release 40 cap PO DAILY . 08/06/22 metoprolol succinate 25 mg tablet,extended release 24 hr 25 mg PO QHS BLOOD PRESSURE 08/06/22 venlafaxine 150 mg capsule,extended release 24 hr 150 cap PO DAILY DEPRESSION 08/06/22 cholecalciferol (vitamin D3) 50 mcg (2,000 unit) capsule (Vitamin D3) 2,000 unitPO DAILY SUPPLEMENT 08/31/22 estradiol 0.01% (0.1 mg/gram) vaginal cream 1 applic vaginal MOWEFR HORMONE 08/31/22 insulin glargine-yfgn 100 unit/mL (3 mL) subcutaneous pen 40 unit subcut DAILY DM 09/18/22 clindamycin HCl 150 mg capsule 150 mg PO BID ANTIBIOTIC 10/08/22 acetaminophen 500 mg tablet 1,000 mg PO Q8 #0 tabs 10/12/22 fentanyl 12 mcg/hr transdermal patch 12 mcg transdermal Q3D 1 day #1 ea 10/12/22 fludrocortisone 0.1 mg tablet 0.4 mg PO BREAKFAST #0 tabs 10/12/22 insulin aspart U-100 100 unit/mL subcutaneous solution (Novolog U-100 Insulin aspart) 8 unit (0.08 mL) subcut TID #70 mL 10/12/22 midodrine 5 mg tablet 5 mg PO TIDCM #30 tabs 10/12/22 oxycodone 5 mg tablet 5 mg PO Q4H PRN PRN Pain Score 4-10 1 day #6 tabs 10/12/22 sennosides 8.6 mg-docusate sodium 50 mg tablet (Stool Softener-Stimulant Laxative) 2 tab PO BID PRN constipation #0 tabs 10/12/22 Hospital Course Operations None Procedures 2-D Echocardiogram, EKG and - (CT cervical/thoracic/lumbar spine/CT brain) Summary of Care Provided Minutes Spent on Discharge: 38 Hospital Course: Mrs. Mann is a 72-year-old white female who presented to emergency department on 10/08/2022 with recurrent syncopal episodes. Over the 2 days prior to presentation she reported 2 syncopal episodes and had several previously that had resulted in a compression fracture in her thoracic spine. She had a kyphoplasty about 2 weeks ago for this and Dr. Fuentes has been following for pain management. She has had ongoing pain however this seems to be fairly well controlled. The day prior to admission she was going to the bathroom when her syncopal episode occurred and she fell and hit her head. The patient also has diabetes and appears to have very labile blood sugars running from hypoglycemic episodes to severely hyperglycemic episodes per discussion with her. She follows with Dr. Delacruz at baseline however initially we did not think she was following with endocrinology as [place] she did say she was following with Dr. Delacruz. She wasadmitted to the PCU and found to be markedly orthostatic positive predominantly with sitting to standing. TSH was normal. Cortisol in the a.m. was normal. Weobtain an echocardiogram which was performed on 10/08/2022 and she was found to have an EF of 70% with no evidence of diastolic dysfunction, aortic sclerosis without stenosis. She was monitored on telemetry throughout her hospital courseand had no arrhythmias. We did note her blood sugars to be fairly tenuous. Predominantly her prandial sugars were issues therefore we decrease her prandialinsulin dosing. By the time of discharge we had decreased her prandial insulin to 8 units 3 times daily and maintained her basal insulin at 40 units. I did discuss the changes with Dr. Delacruz and she indicated she would follow-up and thatthe patient has an appointment upcoming in November. With regards to her orthostatic hypotension, she was given multiple fluid boluses which did not resolve the situation. I highly suspect that she has autonomic dysfunction related to her ongoing diabetes. She did indicate that she had poor control when she was younger. We initiated KALEB boe thigh-high, started her on Florinef as well as midodrine 5 mg p.o. 3 times daily and her orthostasis did improve. Her orthostatic vital signs on the day of discharge showed a lying down blood pressure of 125/76, sitting was 127/55, standing was 100/85. This still is positive, however markedly better than she had been doing previously and she wasmuch less symptomatic with these blood pressures. It does seem that she is improving and we feel that since she is going to a facility and going to be supervised we can discharge her at this time. As noted previously Dr. Delacruz is aware of the changes and plans to follow-up with her more extensively at her follow-up with her in November. I would recommend she get a BMP and a CBC in about1 week and to continue following her blood sugars closely as she may need some subtle changes in her prandial regimen. She will need follow-up with her primary care physician within the next month, Dr. Fuentes within the next week, and Dr. Delacruz as scheduled in November. She was discharged to a nursing facility for ongoing therapy in stable condition on 10/12/2022. Discharge diagnoses: Syncope secondary to orthostatic hypotension--> highly suspect autonomic dysfunction Debility Falls Thoracic compression fracture/back pain -Status post kyphoplasty [id number] Hyperlipidemia Hypertension Diabetic retinopathy Diabetic neuropathy GERD Depression Physical Exam Narrative Patient with mild lightheadedness with getting up today however she states overall since starting the medication and having the KALEB hose on she feels overall better. No syncopal episodes while hospitalized. Blood sugars are better with changes in her insulin regimen. Const alert, oriented x3, no apparent distress, average body habitus, healthy appearing and well nourished Constitutional Narrative: Overweight, older, white female, sitting up in bed, patient appears comfortable and nontoxic at this time General Appearance: cooperative, comfortable, well kempt and well developed Orientation / Consciousness: awake, oriented to person, oriented to place and oriented to time Exam Limitations: no limitations Nutritional Appearance: overweight HEENT normocephalic, head/scalp atraumatic, hearing grossly normal bilaterally and moist oral mucous membranes HEENT Narrative: Mallampati 2, no thrush Eyes PERRL, EOMs intact bilaterally and conjunctivae normal Eyes Narrative: No scleral icterus Neck no lymphadenopathy, supple and no JVD Neck Narrative: Trachea midline, no thyroid enlargement Resp normal respiratory effort, no retractions, no use of accessory muscles and clearto auscultation bilaterally Auscultation: Negative for rales, rhonchi or wheezes Cardio regular rate, regular rhythm, S1 normal heart sound, S2 normal heart sound, no murmurs, no rub, no gallops and no clicks GI normal to inspection, nondistended, normoactive bowel sounds, soft to palpation and non-tender Extremity normal to inspection, full ROM and no clubbing, cyanosis or edema Extremity Narrative: 2+ pedal pulses Skin no rashes or lesions noted, no wounds, skin turgor normal and no jaundice Neuro oriented x3, CN's II-XII intact bilaterally, moves all extremities and no focal motor deficits Neuro Narrative: Mild bilateral lower extremity sensory changes related to diabetic neuropathy distal Sensorium / Orientation: awake and alert Speech: speech normal Psych affect normal Psych Narrative: Very pleasant, appropriately interactive Medical Records Data Medical Nutrition Assessment Dietitian: Malnutrition Criteria Met Start: 10/09/22 12:17 Freq: Status: Active Protocol: Document 10/09/22 12:17 DAVE (Rec: 10/09/22 12:17 [facility] [id number]) Nutrition Malnutrition Evidence of Malnutrition Exists Yes Malnutrition (severe): Acute Illness/Injury Evidenced By Suboptimal Energy Intake ( Severe),Weight Loss (Severe) Clinical Problem Acute Disease or Injury Related Malnutrition Etiology severe related to increased pain and decreased appetite Signs/Symptoms as evidenced by pt meeting <75 % of est nutritional needs and 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 Problem Altered Nutrient-Related Laboratory Values Etiology related to diabetes Signs/Symptoms as evidenced by gluc 275 Status Active Problem Recommendation Dietitian Recommendations/Changes Will change diet to 1800 julieta Cardiac diet Monitor need for ONS pending continued po intake/wt trends Available for diet education if warranted by pt Weight / BMI Weight Weight: 80.7 kg Body Mass Index (BMI) 28.7 ABG / Lab / Microbiology Data Result Diagrams: 10/12/22 05:35 10/12/22 05:35 Laboratory: Laboratory Results - last 24 hr 10/11/22 12:51: POC Glucose 73 L 10/11/22 14:18: POC Glucose 118 H 10/11/22 16:47: POC Glucose 112 H 10/11/22 17:24: POC Glucose 145 H 10/12/22 05:35: WBC 9.6, RBC 4.06 L, Hgb 11.1 L, Hct 35.2 L, MCV 86.7, MCH 27.3,MCHC 31.5 L, RDW Std Deviation 44.5 H, RDW Coeff of Yonathan 14.2, Plt Count 326, MPV9.1, Immature Gran % (Auto) 1.200 H, Neut % (Auto) 60.8, Lymph % (Auto) 25.2, [place] % (Auto) 7.7, Eos % (Auto) 4.4, Baso % (Auto) 0.7, Absolute Neuts (auto) 5.8, Absolute Lymphs (auto) 2.41, Nucleated RBC % 0 10/12/22 05:35: Sodium 141, Potassium 3.5, Chloride 110 H, Carbon Dioxide 24.0, Anion Gap 7, BUN 25 H, Creatinine 1.12 H, Estim Creat Clear Calc 43.75, Est GFR (MDRD) Af Amer 62, Est GFR (MDRD) Non-Af 51 L, BUN/Creatinine Ratio 22.3 H, Glucose 156 H, Calcium 8.7 D/C Instructions Discharge Diet: Low fat / Low cholesterol and 1800 Calorie Control Diet Meaningful Use Info Meaningful Use Diagnoses (Choose all that apply): None applicable Discharge Plan Admission Admit Date/Time: 10/09/22 15:53 Primary Reason for Your Visit: Syncope Attending Provider: Fozia Cervantes Primary Care Provider: Olivier Acosta Consulting Providers: Elizabeth Fuentes ; Emmanuel Hidalgo ; Henna Joseph Discharge Orders/Prescriptions Prescriptions: New fludrocortisone 0.1 mg Tablet 0.4 mg PO BREAKFAST Qty: 0 0RF fentanyl 12 mcg/hr Patch 72 Hour 12 mcg transdermal Q3D 1 Days Qty: 1 0RF midodrine 5 mg Tablet 5 mg PO TIDCM Qty: 30 0RF oxycodone 5 mg Tablet 5 mg PO Q4H PRN PRN (Reason: Pain Score 4-10) 1 Days Qty: 6 0RF sennosides-docusate sodium [Stool Softener-Stimulant Laxat] 8.6-50 mg Tablet 2 tab PO BID PRN (Reason: constipation) Qty: 0 0RF acetaminophen 500 mg Tablet 1,000 mg PO Q8 Qty: 0 0RF Continued ezetimibe [Zetia] 10 mg tablet 10 mg PO DAILY metoprolol succinate 25 mg tablet extended release 24 hr 25 mg PO QHS Label Comments: TAKE 1 TABLET BY MOUTH ONCE DAILY venlafaxine 150 mg capsule,extended release 24hr 150 cap PO DAILY esomeprazole magnesium 40 mg capsule,delayed release(DR/EC) 40 cap PO DAILY probiotic 1 tab PO DAILY ascorbate calcium (vitamin C) 500 mg tablet 500 mg PO DAILY D-Mannrose 1,000 mg PO BID Rx Instructions: 1000mg estradiol 0.01 % (0.1 mg/gram) cream 1 applic VAGINAL MOWEFR Label Comments: INSERT 1 GRAM VAGINALLY 3 TIMES A WEEK BEFORE BED cholecalciferol (vitamin D3) [Vitamin D3] 50 mcg (2,000 unit) capsule 2,000 unit PO DAILY Label Comments: TAKE 1 CAPSULE BY MOUTH ONCE DAILY insulin glargine-yfgn 100 unit/mL (3 mL) insulin pen 40 unit subcut DAILY clindamycin HCl 150 mg capsule 150 mg PO BID Changed insulin aspart U-100 [Novolog U-100 Insulin aspart] 100 unit/mL solution 8 unit subcut TID Qty: 70 0RF Discontinued nitrofurantoin monohyd/m-cryst 100 mg capsule 100 mg PO BID trimethoprim 100 mg tablet 100 mg PO DAILY Referrals / Follow Up: Elizabeth Fuentes MD [Med Staff - Active Staff] - Within 1 Week Olivier Acosta MD [Primary Care Provider] - Within 1 Month Joe Delacruz MD [Med Staff - Courtesy Staff] - See Referral Note (As scheduled in November 2022) Disposition Disposition (needs filled in before D/C Order can be placed): [facility] Facility Charges/Coding Visit Charges Inpatient E&M: 01125 SNF Disch >30 Min 10/12/22 1221 <Electronically signed by Fozia Cervantes DO> Cosigner Signature (if applicable): CC: Dr. Elizabeth Fuentes MD; Dr. Fozia Cervantes DO; Dr. Olivier Acosta MD; Dr. Joe Delacruz MD~ Signed [facility] Work Phone: [phone]) 859-300902-05-[address] Cervantes [facility] October 11, 2022 3:18pm Note Date/Time October 11, 2022 3 :10pm [facility] Medical Records Department [address] [place] [id number] Progress Note - Hospitalist 10/11/22 1508 MR#: [id number] Acct: [id number] Name: KRISTEN MANN Rep #:[id number] : 1950 72 From: Fozia Cervantes DO PCP: Dr. Olivier Acosta MD Status:A DM IN Location: [place] [address] Subjective Subjective Patient reports that she has been less symptomatic with getting out of bed and standing and walking. Blood sugars have still been labile. She does follow with Dr. Delacruz as an outpatient. Objective Data Objective Data Vital Signs: Vital Signs Temp Pulse Resp BP Pulse Ox O2 Del Method 98.0 F 91 16 123/57 H 98 Room Air 10/11/22 10:45 10/11/22 10:45 10/11/22 10:45 10/11/22 10:45 10/11/22 10:45 10/11/22 10:45 Oxygen Delivery Method Room Air Weight: 80.7 kg Body Mass Index (BMI) 28.7 Intake & Output: Intake and Output for Last 24 Hours 02/03/23 02/04/23 02/05/23 23:59 23:59 23:59 Intake Total 2059 2548.75 / 2748.75 620 / 620 Output Total 300 / 300 Balance 2059 2248.75 / 2448.75 620 / 620 Medical Nutrition Assessment Dietitian: Malnutrition Criteria Met Start: 10/09/22 12:17 Freq: Status: Active Protocol: Document 10/09/22 12:17 DAVE (Rec: 10/09/22 12:17 SLA [id number]) Nutrition Malnutrition Evidence of Malnutrition Exists Yes Malnutrition (severe): Acute Illness/Injury Evidenced By Suboptimal Energy Intake ( Severe),Weight Loss (Severe) Clinical Problem Acute Disease or Injury Related Malnutrition Etiology severe related to increased pain and decreased appetite Signs/Symptoms as evidenced by pt meeting <75 % of est nutritional needs and 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 Problem Altered Nutrient-Related Laboratory Values Etiology related to diabetes Signs/Symptoms as evidenced by gluc 275 Status Active Problem Recommendation Dietitian Recommendations/Changes Will change diet to 1800 julieta Cardiac diet Monitor need for ONS pending continued po intake/wt trends Available for diet education if warranted by pt Lab / Micro Data Result Diagrams: 10/11/22 08:57 10/11/22 08:57 Labs: Laboratory Results - last 24 hr 10/10/22 16:19: POC Glucose 156 H 10/10/22 21:53: POC Glucose 290 H 10/11/22 08:11: POC Glucose 237 H 10/11/22 08:57: WBC 8.5, RBC 3.98 L, Hgb 10.9 L, Hct 34.6 L, MCV 86.9, MCH 27.4,MCHC 31.5 L, RDW Std Deviation 43.9, RDW Coeff of Yonathan 13.8, Plt Count 304, MPV 8.7, Immature Gran % (Auto) 1.200 H, Neut % (Auto) 61.4, Lymph % (Auto) 23.8, [place] % (Auto) 8.4, Eos % (Auto) 4.5, Baso % (Auto) 0.7, Absolute Neuts (auto) 5.2, Absolute Lymphs (auto) 2.03, Nucleated RBC % 0 10/11/22 08:57: Sodium 140, Potassium 3.5, Chloride 109 H, Carbon Dioxide 22.0, Anion Gap 9, BUN 19 H, Creatinine 1.05 H, Estim Creat Clear Calc 46.67, Est GFR (MDRD) Af Amer 67, Est GFR (MDRD) Non-Af 55 L, BUN/Creatinine Ratio 18.1, Glucose 260 H, Calcium 8.7 10/11/22 10:47: POC Glucose 233 H 10/11/22 12:51: POC Glucose 73 L 10/11/22 14:18: POC Glucose 118 H Physical Exam Const alert, oriented x3, no apparent distress, healthy appearing and well nourished Constitutional Narrative: Overweight, older, white female, sitting up in bed, nursing at bedside, patient appears comfortable and nontoxic at this time HEENT normocephalic, head/scalp atraumatic, hearing grossly normal bilaterally and moist oral mucous membranes Resp normal respiratory effort, no retractions, no use of accessory muscles and clearto auscultation bilaterally Auscultation: Negative for rales, rhonchi or wheezes Cardio regular rate, regular rhythm, S1 normal heart sound, S2 normal heart sound, no murmurs, no rub, no gallops and no clicks GI normal to inspection, nondistended, normoactive bowel sounds, soft to palpation and non-tender Extremity no clubbing, cyanosis or edema Extremity Narrative: 2+ pedal pulses Neuro oriented x3, moves all extremities and no focal motor deficits Speech: speech normal Psych affect normal Psych Narrative: Very pleasant, appropriately interactive Assessment & Plan Assessment/Plan (1) History of vertebral fracture: (2) S/P kyphoplasty: (3) Back pain: (4) Debility: (5) Syncope: (6) Orthostatic hypotension: PLAN: Plan Syncope secondary to orthostatic hypotension -Suspect ongoing orthostasis is related to autonomic dysfunction as result of her long-term diabetes -Echo is unremarkable -Symptoms with orthostasis seem to be better with the addition of medication however vitals are still positive -Increase fludrocortisone to 0.40 mg -Continue midodrine 5 mg p.o. but increase to 3 times daily -Continue bilateral KALEB hose and try to get thigh-high -Repeat orthostatic vitals tomorrow a.m. and assess for symptomatic orthostasis -Once this has been resolved or at least treated adequately patient is okay for discharge to facility [place] -Continue PT/OT -Likely related to orthostatic hypotension but could be contributed to blood sugar lability as well Thoracic compression fracture/back pain -Status post kyphoplasty -Pain management is following -Continue current pain medication -PT/OT at [facility] in [place] at discharge DM-2 -A1c on 09/21/2022 was 9.3 indicating poor control -Patient reports labile sugars at home and this has been demonstrated here -Insulin adjustments made continuing home Lantus and continue 3 times daily insulin at 15 units -Discontinue subcu insulin SSI -Patient follows with Dr. Delacruz at baseline Hyperlipidemia -Continue Zetia -Would recommend outpatient lipid profile and initiation of statin as patient isdiabetic and per guidelines should be on a statin Hypertension -Continue metoprolol Diabetic retinopathy -Recommend continued outpatient follow-up GERD -Continue PPI Depression -Continue Effexor DVT prophylaxis -Continue subcu enoxaparin CODE STATUS -Full code Charges/Coding Visit Charges Inpatient E&M: 11437 Subs Hosp L2 10/11/22 1518 <Electronically signed by Fozia Cervantes DO> Cosigner Signature (if applicable): CC: ~ Signed [facility] Work Phone: 1(282) 113-820802-04-[address] Cervantes [facility] October 10, 2022 5:14pm Note Date/Time October 10, 2022 5 :04pm [facility] Medical Records Department [address] [place] [address] Progress Note - Hospitalist 10/10/22 165 MR#: [id number] Acct: [id number] Name: KRISTEN MANN Rep #:[id number] : 1950 72 From: Fozia Cervantes DO PCP: Dr. Olivier Acosta MD Status:A DM IN Location: [place] [id number] Subjective Subjective Mrs. Mann is a 72-year-old white female who presented to the emergency department on 10/08/2022 with recurrent syncopal episodes. Over the last 2 days prior to presentation she has had 2 syncopal episodes and had several previouslythat had resulted in a compression fracture of her thoracic spine previously. Patient had no forewarning and went down. The day prior to admission she was going to the bathroom when it occurred and she fell and hit her head. The patient does have diabetes and has very labile blood sugars running from hypoglycemic episodes to severely hyperglycemic episodes. She has seen endocrinology previously but is not following currently. This was in [place] and she was unable to get there. She does have a history of diabetic retinopathy and has difficulty visualizing her insulin when drawing. She was admitted to PCU and found to be markedly orthostatic positive from sitting to standing. Shewas given IV fluids but this has been persistent despite fluid repletion. It sounds as if she may have some autonomic dysfunction. Echocardiogram was done and shows an EF of 70% with no evidence of diastolic dysfunction and aortic sclerosis without stenosis. At the time of my evaluation in the a.m. of 10/10/2022 the patient has had labile blood sugars being low this morning but her overall blood sugars have been high throughout her hospital stay. Orthostatics remain positive with sitting to standing and she gets markedly symptomatic with this. Complains of ongoing backpain. She is following with pain management had recent kyphoplasty. Objective Data Objective Data Vital Signs: Vital Signs Temp Pulse Resp BP Pulse Ox O2 Del Method 98.1 F 81 16 133/68 H 96 Nasal Cannula 10/10/22 16:22 10/10/22 16:22 10/10/22 16:22 10/10/22 16:22 10/10/22 16:22 10/10/22 16:22 Oxygen Delivery Method Nasal Cannula Weight: 80.7 kg Body Mass Index (BMI) 28.7 Intake & Output: Intake and Output for Last 24 Hours 10/08/22 10/09/22 10/10/22 23:59 23:59 23:59 Intake Total 2180 / 2180 2059 / 0 2188.75 / 2188.75 Output Total 300 / 300 Balance 2180 / 2180 2059 / 0 1888.75 / 1888.75 Medical Nutrition Assessment Dietitian: Malnutrition Criteria Met Start: 10/09/22 12:17 Freq: Status: Active Protocol: Document 10/09/22 12:17 DAVE (Rec: 10/09/22 12:17 DAVE [id number]) Nutrition Malnutrition Evidence of Malnutrition Exists Yes Malnutrition (severe): Acute Illness/Injury Evidenced By Suboptimal Energy Intake ( Severe),Weight Loss (Severe) Clinical Problem Acute Disease or Injury Related Malnutrition Etiology severe related to increased pain and decreased appetite Signs/Symptoms as evidenced by pt meeting <75 % of est nutritional needs and 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 Problem Altered Nutrient-Related Laboratory Values Etiology related to diabetes Signs/Symptoms as evidenced by gluc 275 Status Active Problem Recommendation Dietitian Recommendations/Changes Will change diet to 1800 julieta Cardiac diet Monitor need for ONS pending continued po intake/wt trends Available for diet education if warranted by pt Lab / Micro Data Result Diagrams: 10/08/22 14:00 10/08/22 14:00 Labs: Laboratory Results - last 24 hr 10/09/22 17:11: POC Glucose 97 10/09/22 22:45: POC Glucose 274 H 10/09/22 22:54: Urine Color Yellow, Urine Clarity Clear, Urine pH 6.0, Ur Specific [place] 1.015, Urine Protein 30 H, Urine Glucose (UA) 250 H, Urine Ketones Negative, Urine Occult Blood Negative, Urine Nitrite Negative, Urine Bilirubin Negative, Urine Urobilinogen Normal, Ur Leukocyte Esterase 25 H, UrineRBC 0 SEEN, Urine WBC 0-5 SEEN, Ur Squamous Epith Cells 0-5 SEEN, Urine Bacteria0 SEEN, Urine Mucus 0 SEEN 10/10/22 08:25: POC Glucose 268 H 10/10/22 11:12: POC Glucose 87 10/10/22 12:26: POC Glucose 70 L 10/10/22 16:19: POC Glucose 156 H Physical Exam Const alert, oriented x3, no apparent distress, healthy appearing and well nourished Constitutional Narrative: Overweight, older, white female, sitting up in bed, nursing at bedside, patient appears comfortable and nontoxic at this time HEENT head/scalp atraumatic and moist oral mucous membranes Head and Scalp: normocephalic Resp normal respiratory effort, no retractions, no use of accessory muscles and clearto auscultation bilaterally Cardio regular rate, regular rhythm, S1 normal heart sound, S2 normal heart sound, no murmurs, no rub, no gallops and no clicks GI normal to inspection, nondistended, normoactive bowel sounds, soft to palpation and non-tender Extremity no clubbing, cyanosis or edema Extremity Narrative: 2+ pedal pulses Neuro oriented x3, moves all extremities and no focal motor deficits Speech: speech normal Psych affect normal Psych Narrative: Very pleasant, appropriately interactive Assessment & Plan Assessment/Plan (1) History of vertebral fracture: (2) S/P kyphoplasty: (3) Back pain: (4) Debility: (5) Syncope: (6) Orthostatic hypotension: PLAN: Plan Syncope secondary to orthostatic hypotension -Suspect ongoing orthostasis is related to autonomic dysfunction as result of her long-term diabetes -Echo is unremarkable -Start fludrocortisone 0.20 mg with a dose now than a.m. daily -Start midodrine 5 mg p.o. twice daily -Start bilateral lower extremity KALEB hose -Repeat orthostatic vitals tomorrow at 10 AM after medications are dosed -Once this has been resolved or at least treated adequately patient is okay for discharge to facility Thoracic compression fracture/back pain -Status post kyphoplasty -Pain management is following -Continue current pain medication -PT/OT at [facility] in [place] at discharge DM-2 -A1c on 09/21/2022 was 9.3 indicating poor control -Patient reports labile sugars at home and this has been demonstrated here -I initially increased her doses for hyperglycemia earlier today however she hashad hypoglycemic episodes this afternoon -Insulin adjustments made continuing home Lantus and decreasing scheduled insulin to 15 units 3 times daily with sliding scale -Make referral to Dr. Delacruz for endocrinology follow-up in [place] after discharge Hyperlipidemia -Continue Zetia -Would recommend outpatient lipid profile and initiation of statin as patient isdiabetic and per guidelines should be on a statin Hypertension -Continue metoprolol Diabetic retinopathy -Recommend continued outpatient follow-up GERD -Continue PPI Depression -Continue Effexor DVT prophylaxis -Start subcu enoxaparin CODE STATUS -Full code Charges/Coding Visit Charges Inpatient E&M: 76052 Subs Hosp L2 10/10/22 1712 <Electronically signed by Fozia Cervantes DO> Cosigner Signature (if applicable): CC: ~ Signed [facility] Work Phone: 1(915) 336-273002-03-[address] Joseph [facility] October 09, 2022 5:01pm Note Date/Time October 09, 2022 4 :54pm [facility] Medical Records Department [address] [place] [address] Progress Note - Hospitalist 10/09/22 1650 MR#: [id number] Acct: [id number] Name: MELKRISTEN Dar Rep #:[id number] : 1950 72 From: Henna Joseph DO PCP: Dr. Olivier Acosta MD Status:A DM IN [facility] Subjective Subjective Patient was seen and examined today, she still appears orthostatic and I have elected to give her fluids this afternoon and run maintenance IV. Patient has consented to go to a skilled care facility, personnel are coming from one today to evaluate her and possibly if her orthostatic blood pressure corrects tomorrow, she can be discharged to a skilled facility for inpatient rehab services. Objective Data Objective Data Vital Signs: Vital Signs Temp Pulse Resp BP Pulse Ox O2 Del Method 98.8 F 92 17 123/74 H 95 Room Air 10/09/22 15:23 10/09/22 15:23 10/09/22 15:23 10/09/22 15:23 10/09/22 15:23 10/09/22 15:23 Oxygen Delivery Method Room Air Weight: 80.7 kg Body Mass Index (BMI) 28.7 Intake & Output: Intake and Output for Last 24 Hours 10/07/22 10/08/22 10/09/22 23:59 23:59 23:59 Intake Total 2180 / 2180 1060 / 1060 Balance 2180 / 2180 1060 / 1060 Medical Nutrition Assessment Dietitian: Malnutrition Criteria Met Start: 10/09/22 12:17 Freq: Status: Active Protocol: Document 10/09/22 12:17 DAVE (Rec: 10/09/22 12:17 DAVE [id number]) Nutrition Malnutrition Evidence of Malnutrition Exists Yes Malnutrition (severe): Acute Illness/Injury Evidenced By Suboptimal Energy Intake ( Severe),Weight Loss (Severe) Clinical Problem Acute Disease or Injury Related Malnutrition Etiology severe related to increased pain and decreased appetite Signs/Symptoms as evidenced by pt meeting <75 % of est nutritional needs and 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 Problem Altered Nutrient-Related Laboratory Values Etiology related to diabetes Signs/Symptoms as evidenced by gluc 275 Status Active Problem Recommendation Dietitian Recommendations/Changes Will change diet to 1800 julieta Cardiac diet Monitor need for ONS pending continued po intake/wt trends Available for diet education if warranted by pt Lab / Micro Data Result Diagrams: 10/08/22 14:00 10/08/22 14:00 Labs: Laboratory Results - last 24 hr 10/08/22 16:35: Vitamin D 25-Hydroxy 22.9 10/09/22 04:56: Cortisol 6.40 10/09/22 07:34: POC Glucose 317 H 10/09/22 12:16: POC Glucose 149 H Radiography Diagnostic Testing: Radiology Impression Echocardiogram 10/08/22 16:09 Interpretation Summary The estimated ejection fraction is 70 %. No evidence for diastolic dysfunction. Aortic sclerosis, no stenosis. Ordering Physician: Emmanuel Hidalgo Referring Physician: OLIVIER ACOSTA Performed By: Debbie Flores RCS Physical Exam Const alert, oriented x3, no apparent distress and average body habitus General Appearance: cooperative, well kempt and well developed Orientation / Consciousness: awake, oriented to person, oriented to place and oriented to time HEENT normocephalic, head/scalp atraumatic and moist oral mucous membranes Eyes PERRL, EOMs intact bilaterally and conjunctivae normal Neck supple, no JVD, thyroid normal and no carotid bruits General: trachea midline Resp normal respiratory effort, no retractions, no use of accessory muscles and clearto auscultation bilaterally Auscultation: Negative for rales, rhonchi or wheezes Cardio regular rate, regular rhythm, S1 normal heart sound, S2 normal heart sound, no murmurs, no rub and no gallops GI normal to inspection, nondistended, normoactive bowel sounds, soft to palpation,non-tender and non-distended Extremity no clubbing, cyanosis or edema Skin no rashes or lesions noted General Skin Exam: no breakdown Neuro oriented x3, CN's II-XII intact bilaterally, moves all extremities, no focal motor deficits and no sensory deficits noted Sensorium / Orientation: awake and alert Speech: speech normal Psych affect normal Assessment & Plan Assessment/Plan (1) Debility: PLAN: Plan 1. Syncopal episode-possibly secondary to orthostatic hypotension, patient willbe given IV fluids, orthostatic blood pressure should be checked tomorrow again. 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 with history of vertebral fracture T12, B05-rintpyguish care, medical course, prognosis, and recovery-patient will be seen by PT and OT during her hospitalization #4 spinal stenosis-continue PT and OT participation in her care #5 type 2 diabetes-blood sugars will be monitored, sliding scale insulin will beused to control blood sugars #6 sick sinus syndrome with insertion of permanent pqqejgdpx-fsyjxs-qategde's pacemaker interrogation today did not show any malignant arrhythmias or significant tachycardia #7 acute debility-patient has been accepted at an extended care facility ([place]), she will be reevaluated tomorrow for discharge. #8 chronic kidney disease stage IIIb-secondary to type 2 diabetes-BMP will be monitored as necessary Total clinical time spent by myself addressing the patient's medical issues, reviewing all the data, and collaborating with patient's care team: 37 minutes Charges/Coding Visit Charges Inpatient E&M: 23320 Subs Hosp L2 10/09/22 1701 <Electronically signed by Henna Joseph DO> Cosigner Signature (if applicable): CC: ~ Signed [facility] Work Phone: 1(915) 929-781302-02-2023 History and physical note Author Dr. Hidalgo [facility] October 08, 2022 5:56pm Note Date/Time October 08, 2022 3 :57pm [facility] Medical Records Department [address] [place] [id number] H&P Exam - Hospitalist 10/08/22 1549 MR#: [id number] Acct: [id number] Name: KRISTEN MANN Rep #:[id number] : 1950 72 From: Emmanuel Hidalgo DO PCP: Dr. Olivier Acosta MD Status:A DM LIZZIE Location: [place] [id number] HPI - General General Date of Admission: 10/08/22 Date of Service: 10/08/22 Chief Complaint: syncope HPI Narrative KRISTEN MANN, is a 72 F who presents with syncopal episodes. Over the past 2 days, patient has had 2 syncopal episodes. Patient has had no forewarning and went down. Yesterday, patient was going into her bathroom and fell hitting her head. Did not seek attention at that time. Today, patient was getting up with a walker and then just fell forward with no warning. Patient presented to the emergency room for evaluation. Patient is a diabetic and blood sugars have beenin the 400s. Patient does have diabetic retinopathy and is unable to see what she is drawing up properly but is not able to see what her blood sugars are withthe OneTouch and they have been in the 400s. Patient does have a pacemaker for what sounds like some sick sinus syndrome. Was told that patient did have a pacemaker interrogated here but the results of which are unknown. [facility] Medical History Abnormal CT scan, colon Asthma Carotid stenosis, bilateral Chronic pain Constipation Depression Diabetes GERD (gastroesophageal reflux disease) HLD (hyperlipidemia) HTN (hypertension) Ileus Non-smoker Pacemaker Pancreatitis Presence of cardiac pacemaker Sick sinus syndrome Sleep apnea TIA (transient ischemic attack) UTI (urinary tract infection) Home Medications ezetimibe 10 mg tablet (Zetia) 10 mg PO DAILY . 05/31/19 [History Last Taken 10/06/22] D-Mannrose 1,000 mg PO BID UTI 08/03/22 [History Last Taken 09/17/22] ascorbate calcium (vitamin C) 500 mg tablet 500 mg PO DAILY SUPPLEMENT 08/03/22 [History Last Taken 10/06/22] probiotic 1 tab PO DAILY SUPPLEMENT 08/03/22 [History Last Taken 10/06/22] esomeprazole magnesium 40 mg capsule,delayed release 40 cap PO DAILY . 08/06/22 [History Last Taken 10/07/22] metoprolol succinate 25 mg tablet,extended release 24 hr 25 mg PO QHS BLOOD PRESSURE 08/06/22 [History Last Taken 10/07/22] venlafaxine 150 mg capsule,extended release 24 hr 150 cap PO DAILY DEPRESSION 08/06/22 [History Last Taken 10/05/22] cholecalciferol (vitamin D3) 50 mcg (2,000 unit) capsule (Vitamin D3) 2,000 unitPO DAILY SUPPLEMENT 08/31/22 [History Last Taken 10/06/22] estradiol 0.01% (0.1 mg/gram) vaginal cream 1 applic vaginal MOWEFR HORMONE 08/31/22 [History Last Taken 1 Week Ago ~10/01/22] nitrofurantoin monohydrate/macrocrystals 100 mg capsule 100 mg PO BID UTI 09/13/22 [History Last Taken 10/07/22] insulin glargine-yfgn 100 unit/mL (3 mL) subcutaneous pen 40 unit subcut DAILY DM 09/18/22 [History Last Taken 10/08/22] trimethoprim 100 mg tablet 100 mg PO DAILY UTI 09/18/22 [History Last Taken Unknown] insulin aspart U-100 100 unit/mL subcutaneous solution (Novolog U-100 Insulin aspart) 25 unit (0.25 mL) subcut TID #70 mL 10/01/22 [Rx Last Taken 10/08/22] clindamycin HCl 150 mg capsule 150 mg PO BID ANTIBIOTIC 10/08/22 [History Last Taken 10/08/22] Allergy/AdvReac Type Severity Reaction Status Date / Time morphine Allergy Mild Rash Verified 09/18/22 08:39 Penicillins Allergy Mild Rash Verified 09/18/22 08:39 Sulfa (Sulfonamide Allergy Mild Rash Verified 09/18/22 08:39 Antibiotics) Family History Mother Hypertension Father Asthma Depression Diabetes High cholesterol Hypertension Other Arthritis Autoimmune disorder Breast cancer Cancer Kidney disease Surgical History H/O section H/O: hysterectomy History of appendectomy History of cholecystectomy Hx laparoscopic cholecystectomy Social History household members: none Smoking Status: Never smoker alcohol intake: never substance use type: does not use what type of physical activity do you participate in: none ROS ROS Narrative Does get chilled at times but no new changes with that. Has had other episodes where she feels dizzy but not passed out. Patient states that she only falls a few times per year. All review of systems were negative except as mentioned above in the history of present illness and the other review of systems. Vital Signs Vital Signs Vital Signs: 10/08/22 13:27 10/08/22 13:31 Temperature 36.4 C L Temperature Source Oral Pulse Rate 121 H Respiratory Rate 18 Respiratory Effort Normal Respiratory Pattern Normal Blood Pressure 115/76 Blood Pressure Mean 89 Pulse Ox 99 Oxygen Delivery Method Room Air Weight Weight: 81.9 kg Body Mass Index (BMI) 29.1 Physical Exam Const alert and no apparent distress HEENT normocephalic, head/scalp atraumatic, hearing grossly normal bilaterally and moist oral mucous membranes Eyes PERRL and EOMs intact bilaterally Resp normal respiratory effort, no retractions, no use of accessory muscles and clearto auscultation bilaterally Cardio regular rate, regular rhythm, S1 normal heart sound and S2 normal heart sound GI normal to inspection, nondistended, normoactive bowel sounds, soft to palpation,non-tender and non-distended Extremity normal to inspection, full ROM and no clubbing, cyanosis or edema Neuro oriented x3 and moves all extremities Psych affect normal Results Lab / Micro Data Attestation: I reviewed the patient's lab results. Result Diagrams: 10/08/22 14:00 10/08/22 14:00 Labs: Laboratory Results - last 24 hr 10/08/22 14:00: WBC 16.1 H, RBC 5.15, Hgb 14.3, Hct 43.9, MCV 85.2, MCH 27.8, MCHC 32.6, RDW Std Deviation 42.5, RDW Coeff of Yonathan 13.7, Plt Count 348, MPV 9.0, Immature Gran % (Auto) 1.500 H, Neut % (Auto) 72.3 H, Lymph % (Auto) 14.2 L, [place] % (Auto) 8.3, Eos % (Auto) 3.1, Baso % (Auto) 0.6, Absolute Neuts (auto) 11.6 H, Absolute Lymphs (auto) 2.29, Nucleated RBC % 0 10/08/22 14:00: Sodium 138, Potassium 4.0, Chloride 108 H, Carbon Dioxide 24.0, Anion Gap 6, BUN 30 H, Creatinine 1.37 H, Estim Creat Clear Calc 35.77, Est GFR (MDRD) Af Amer 49 L, Est GFR (MDRD) Non-Af 40 L, BUN/Creatinine Ratio 21.9 H, Glucose 275 H, Calcium 9.8, Troponin I High Sens 6 EKG Initial EKG: Attestation: I personally reviewed and interpreted this EKG as follows: Prior EKG tracings: available for review EKG Rhythm Intrepretation: Sinus Rhythm Radiology Impression Brain CT 10/08/22 13:43 IMPRESSION: Normal unenhanced CT scan of the brain. Small air-fluid level in the right maxillary sinus. Electronically Signed: Theo Perez MD at 14:48 EST , Cervical Spine CT 10/08/22 13:43 IMPRESSION: Multilevel degenerative changes, as described above. Electronically Signed: Theo Perez MD at 14:53 EST , Lumbar Spine CT 10/08/22 13:43 IMPRESSION: Multilevel degenerative changes, as described above. Grade 1 anterolisthesis of L4 on L5 due to facet joint osteoarthritis and spondylolysis of the pars interarticularis of the L4 vertebrae. Stable large Schmorl''s node in the superior endplate of the L4 vertebrae. Electronically Signed: Theo Perez MD at 14:51 EST , Thoracic Spine CT 10/08/22 13:43 IMPRESSION: Multilevel disc space narrowing and spondylosis. Prior vertebral plasty of the T12 and L1 vertebrae. Electronically Signed: Theo Perez MD at 14:57 EST , Assessment & Plan Assessment/Plan (1) Syncope: PLAN: Unclear etiology. Patient had no forewarning, however, the patient does have diabetes so she may have some autonomic insufficiency. Interrogate pacemaker Check orthostatic vital signs Check echocardiogram (2) Debility: PLAN: PTOT evaluate and treat Patient does live by herself and with her falls and syncope, it is concerned about the patient going back and living on her own independently. (3) History of vertebral fracture: PLAN: Patient did have prado scans of her cervical thoracic and lumbar spine showed no acute fracture.MRI of the lumbar spine on September 30 showed mild recent anterior wedge compression fracture of the upper T12 vertebral body with extensive bone marrow edema. We will consult pain management for further recommendations Check 25-hydroxy vitamin D level (4) Diabetes: QUALIFIERS: Diabetes mellitus type: type 2 Diabetes mellitus mcc insulin use: with mcc use Diabetes mellitus complication status: with ophthalmic complications Diabetes mellitus complication detail: with diabetic retinopathy Diabetic retinopathy severity: with unspecified retinopathy severity Diabetes mellitus macular edema: macular edema presence unspecified Laterality: unspecified laterality Qualified Code(s): E11.319 - Type 2 diabetes mellitus with unspecified diabetic retinopathy without macular edema; Z79.4 - senior living (current) use of insulin PLAN: Type II the patient states that she has been recent diagnosis type I. Nonetheless, patient is insulin-dependent. Blood sugars have been in the 400s at home according to her. Concern of the patient may not be able to read the numbers on her syringes when she draws them up to probably give herself on the right insulin. Patient was blaming the change on receiving NovoLog instead of Humalog. Explained that essentially the same medication. Check an A1c Continue glargine, NovoLog and sliding scale insulin. PLAN: Plan Chronic conditions * Sick sinus syndrome: Status post pacemaker. Follow-up cardiology as outpatient * Diabetic retinopathy: Follow-up with ophthalmology as outpatient * Chronic kidney disease stage IIIb: Stable VTE prophylaxis: Not indicated given current observation status. CODE STATUS: Addressed with the patient. Patient wishes to be full code. Charges/Coding Visit Charges Inpatient E&M: 68793 Init Hosp L3 10/08/22 1603 <Electronically signed by Emmanuel Hidalgo DO> Cosigner Signature (if applicable): CC: Dr. Emmanuel Hidalgo DO; Dr. Olivier Acosta MD~ Signed ADDENDUM by Dr. Emmanuel Hidalgo DO on 10/08/22 at 1756 Addendum Orthostatic vital signs were positive. Will given a liter of IV fluids. Recheck orthostats in the morning. Check a.m. cortisol 10/08/22 175<Electronically signed by Emmanuel Hidalgo DO> Cosigner Signature (if applicable): cc: Dr. Emmanuel Hidalgo DO; Dr. Olivier Acosta MD ~* Signed [facility] Work Phone: 1(533) 833-566502-02-[address] Andersen [facility] October 08, 2022 3:45pm Note Date/Time October 08, 2022 2 :18pm [facility] Medical Records Department [address] [place] [address] Emergency Department Summary 10/08/22 MR#: [id number] Acct: [id number] Name: KRISTEN MANN Rep #:[id number] : 1950 72 From: Paresh Bartholomew PCP: Dr. Olivier Acosta MD Status:A DM LIZZIE Location: [address] History of Present Illness Chief Complaint: Dizziness Informant: patient and family Narrative Narrative: Patient presents to ED by EMS for evaluation. Reports 2 syncopal episodes sinceyesterday. Reports increasing back pain. Reports headache. Patient does not take any blood thinners. Difficulty with full history with patient's reporting she has been to the emergency department weekly since August over a month ago. She states she has had similar symptoms since then. She reports she would stand and walk suddenly will have a syncopal episode no prodromal chest pains orshortness of breath. Yesterday had a head injury. She states her back pain hasbeen increasing has not been addressed. She reports she has been hospitalized and told UTI. 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 She states is a [employer]. Additional history stating she is followed with Dr. Fuentes who ordered an MRI and she end up getting a kyphoplasty a week ago. Pain with no significant improvement however worsened since her falls. The concern for additional fracture. Family is present states she is currently at home and they are taking turns taking care ofher and there has been no discussion of rehab versus skilled care. They state they would like this evaluated. After work-up was initiated noted patient admitted for UTI dehydration the day after Rhiannon for 1 day. She had 2 visits in September for concerns for ileus versus partial small bowel obstruction. She was seen by surgery. She was improved. She was seen back in the ED September 25 for constipation. Review of records there, from CT scan there was noted increasing T12 vertebral fracture. There was an MRI study ordered by Dr. Fuentes on September 30 confirming T12 fracture and a spinous fracture of T11. There was no reported issues of syncopal episodes. Apparently this would be new for her. She denies any urinary symptoms. Denies recent vomiting or diarrhea. Prior similar symptoms: Yes PFSH PFSH Medical History Abnormal CT scan, colon Asthma Carotid stenosis, bilateral Chronic pain Constipation Depression Diabetes GERD (gastroesophageal reflux disease) HLD (hyperlipidemia) HTN (hypertension) Ileus Non-smoker Pacemaker Pancreatitis Presence of cardiac pacemaker Sick sinus syndrome Sleep apnea TIA (transient ischemic attack) UTI (urinary tract infection) Home Medications ezetimibe 10 mg tablet (Zetia) 10 mg PO DAILY . 05/31/19 [History Last Taken 10/06/22] D-Mannrose 1,000 mg PO BID UTI 08/03/22 [History Last Taken 09/17/22] ascorbate calcium (vitamin C) 500 mg tablet 500 mg PO DAILY SUPPLEMENT 08/03/22 [History Last Taken 10/06/22] probiotic 1 tab PO DAILY SUPPLEMENT 08/03/22 [History Last Taken 10/06/22] esomeprazole magnesium 40 mg capsule,delayed release 40 cap PO DAILY . 08/06/22 [History Last Taken 10/07/22] metoprolol succinate 25 mg tablet,extended release 24 hr 25 mg PO QHS BLOOD PRESSURE 08/06/22 [History Last Taken 10/07/22] venlafaxine 150 mg capsule,extended release 24 hr 150 cap PO DAILY DEPRESSION 08/06/22 [History Last Taken 10/05/22] cholecalciferol (vitamin D3) 50 mcg (2,000 unit) capsule (Vitamin D3) 2,000 unitPO DAILY SUPPLEMENT 08/31/22 [History Last Taken 10/06/22] estradiol 0.01% (0.1 mg/gram) vaginal cream 1 applic vaginal MOWEFR HORMONE 08/31/22 [History Last Taken 1 Week Ago ~10/01/22] nitrofurantoin monohydrate/macrocrystals 100 mg capsule 100 mg PO BID UTI 09/13/22 [History Last Taken 10/07/22] insulin glargine-yfgn 100 unit/mL (3 mL) subcutaneous pen 40 unit subcut DAILY DM 09/18/22 [History Last Taken 10/08/22] trimethoprim 100 mg tablet 100 mg PO DAILY UTI 09/18/22 [History Last Taken Unknown] insulin aspart U-100 100 unit/mL subcutaneous solution (Novolog U-100 Insulin aspart) 25 unit (0.25 mL) subcut TID #70 mL 10/01/22 [Rx Last Taken 10/08/22] clindamycin HCl 150 mg capsule 150 mg PO BID ANTIBIOTIC 10/08/22 [History Last Taken 10/08/22] Allergy/AdvReac Type Severity Reaction Status Date / Time morphine Allergy Mild Rash Verified 09/18/22 08:39 Penicillins Allergy Mild Rash Verified 09/18/22 08:39 Sulfa (Sulfonamide Allergy Mild Rash Verified 09/18/22 08:39 Antibiotics) Family History Mother Hypertension Father Asthma Depression Diabetes High cholesterol Hypertension Other Arthritis Autoimmune disorder Breast cancer Cancer Kidney disease Surgical History H/O section H/O: hysterectomy History of appendectomy History of cholecystectomy Hx laparoscopic cholecystectomy Social History household members: none Smoking Status: Never smoker alcohol intake: never substance use type: does not use what type of physical activity do you participate in: none ROS ROS ED Constitutional Constitutional ED: Denies chills, fever(s) or sweats Eyes Eyes: Denies change in vision ENT ENT ED: Denies dysphagia or sore throat Cardiovascular Cardiovascular: Denies chest pain, leg edema, palpitations or racing heartbeat Respiratory/Chest Respiratory/Chest: Denies cough, dyspnea or dyspnea on exertion Gastrointestinal Gastrointestinal: Denies abdominal pain, diarrhea, nausea or vomiting Genitourinary Genitourinary ED: Denies dysuria, hematuria or urinary frequency Musculoskeletal Musculoskeletal: Reports back pain; Denies extremity pain or neck pain Integumentary Denies rash or wounds Neurologic Neurologic: Reports headache(s); Denies paresthesias or weakness EXAM Physical Exam Const Vital Signs: 10/08/22 13:27 10/08/22 13:31 Temperature 97.6 F L Temperature Source Oral Pulse Rate 121 H Respiratory Rate 18 Respiratory Effort Normal Respiratory Pattern Normal Blood Pressure 115/76 Blood Pressure Mean 89 Pulse Ox 99 Oxygen Delivery Method Room Air Positive well nourished and well developed Constitutional Narrative: Awake alert oriented x3, frustrated during discussion. However cooperative. General Appearance ED: well developed HEENT Reports moist mucous membranes normocephalic and atraumatic Eyes PERRL, EOMs intact bilaterally and conjunctivae normal General Eye ED: Yes normal appearance of both eyes Neck no lymphadenopathy and supple General: Negative for tenderness Chest Wall inspection of chest normal and palpation of chest normal Chest: Negative for tenderness Resp normal respiratory effort and normal air movement Effort and Inspection: symmetric chest movement; Negative for respiratory distress Cardio regular rhythm and no murmurs Rate: tachycardic Peripheral Pulses: pulses 2+ throughout GI normal to inspection, nondistended, normoactive bowel sounds and non-tender Palpation: Negative for guarding or rebound tenderness present Back/Spine no CVA tenderness Back/Spine Narrative: Slight kyphosis thoracic spine there is no step-offs. No reproducible tenderness throughout the spine. Extremity normal to inspection General Extremety ED: Negative for edema or tenderness General Extremity: Negative for edema Neuro oriented x3, CN's II-XII intact bilaterally and no sensory deficits noted Sensorium / Orientation: awake and alert Skin no rashes or lesions noted and no wounds MDM MDM MDM Narrative Medical decision making narrative: Patient syncopal episode on arrival x2. Differential vasovagal versus dysrhythmias. Reports headache worsening back pain. Differentials concussion versus intracranial hemorrhage. Differential also vertebral fractures with a history of this. Patient has a [employer] device will have this interrogated. Cardiac work-up will be initiated. We will check labs chest x-ray. Will check CT head C-spine thoracic lumbar spine further evaluation. Family does not feel they take care of at home. Discussed with case management who will help evaluate patient in the ED for disposition plans. 1515: Trauma scans head cervical spine thoracic lumbar spine reviewed by myself interpreted radiology previous kyphoplasty is noted there is no new fractures.- White peers at T11-T12 on my evaluation. Labs White count was 16 stable creatinine 1.37. She denies any cough for concerns of pneumonia. Denies urine symptoms. She had history of UTI therefore UA was added. Reported by family today prior to her kyphoplasty 8 days ago she did have injections likely with steroids. Her kyphoplasty was done a week ago. She is currently on Percocet scheduled for every 4 hours her family's been pushing to every 5 hours. Discussed with case management who evaluated the ED, unable to place from the EDtoday. She will require admission. Interrogation report has been done however results have not been sent to me. Unclear pain induced syncope. I will speak with hospitalist service for admission. 1525: I spoke with Dr. Hidalgo for admission. 1540: I reviewed the [employer] report noting since September 30, 2022 of her last report there is no VT episodes, no SVT episodes, no sustained VT episodes. Lab Data Attestation: I reviewed the patient's lab results. Labs: Laboratory Results - last 24 hr 10/08/22 10/08/22 14:00 14:00 WBC 16.1 H RBC 5.15 Hgb 14.3 Hct 43.9 MCV 85.2 MCH 27.8 MCHC 32.6 RDW Std Deviation 42.5 RDW Coeff of Yonathan 13.7 Plt Count 348 MPV 9.0 Immature Gran % (Auto) 1.500 H Neut % (Auto) 72.3 H Lymph % (Auto) 14.2 L [place] % (Auto) 8.3 Eos % (Auto) 3.1 Baso % (Auto) 0.6 Absolute Neuts (auto) 11.6 H Absolute Lymphs (auto) 2.29 Nucleated RBC % 0 Sodium 138 Potassium 4.0 Chloride 108 H Carbon Dioxide 24.0 Anion Gap 6 BUN 30 H Creatinine 1.37 H Estim Creat Clear Calc 35.77 Est GFR (MDRD) Af Amer 49 L Est GFR (MDRD) Non-Af 40 L BUN/Creatinine Ratio 21.9 H Glucose 275 H Calcium 9.8 Troponin I High Sens 6 Radiography Diagnostic Testing: Clinical Impression(s) from Imaging Studies Brain CT 10/08/22 13:43 IMPRESSION: Normal unenhanced CT scan of the brain. Small air-fluid level in the right maxillary sinus. Electronically Signed: Theo Perez MD at 14:48 EST , Cervical Spine CT 10/08/22 13:43 IMPRESSION: Multilevel degenerative changes, as described above. Electronically Signed: Theo Perez MD at 14:53 EST , Lumbar Spine CT 10/08/22 13:43 IMPRESSION: Multilevel degenerative changes, as described above. Grade 1 anterolisthesis of L4 on L5 due to facet joint osteoarthritis and spondylolysis of the pars interarticularis of the L4 vertebrae. Stable large Schmorl''s node in the superior endplate of the L4 vertebrae. Electronically Signed: Theo Perez MD at 14:51 EST , Thoracic Spine CT 10/08/22 13:43 IMPRESSION: Multilevel disc space narrowing and spondylosis. Prior vertebral plasty of the T12 and L1 vertebrae. Electronically Signed: Theo Perez MD at 14:57 EST , EKG Initial EKG: Attestation: I personally reviewed and interpreted this EKG as follows: Comments: Sinus rate of 120, no ST or T wave changes QTC 435. Discharge Plan Dx/Rx/DC Orders Clinical Impression: Back pain, S/P kyphoplasty, History of vertebral fracture, Syncope Disposition Disposition: Acute Care Hospital [facility] What to do if you have Problems For any increased pain, shortness of breath, bleeding, nausea or vomiting, chestpain, or any unexpected problems, contact your Primary Care Provider. Call [facility] ([phone]) or report to the closest Emergency Room. Call 911 if necessary. 10/08/22 9515 <Electronically signed by Paresh Bartholomew> Cosigner Signature (if applicable): CC: Dr. Olivier Acosta MD ~ Signed [facility] Work Phone: 1(365) 526-272701-17-[address] Patton [facility] September 22, 2022 10:32am Note Date/Time September 22, 2022 1 0:28am [facility] Medical Records Department [address] [place] [address] Instructions for Home/Discharge Instructions 09/22/22 1027 MR#: [id number] Acct: [id number] Name: KRISTEN MANN Rep #:[id number] : 1950 72 From: Thee thomas MD PCP: Dr. Olivier Acosta MD Status:A DM IN Discharge Instructions Diet Discharge Diet: Low fat / Low cholesterol and Carb Control Diet Activity Discharge Activity: Return to Normal Activity Dressing / Incision Call your doctor if you observe: Fever of 101 or Higher, Shortness of breath, Dizziness, Fainting spells, Swelling in the ankles, Chest pain and Increased palpitations (irregular heartbeat) Follow Up Care Test Results: Test results from this visit will be discussed in further detail at your follow- up appointment, if applicable. Discharge Plan Admission Admit Date/Time: 09/18/22 13:21 Attending Provider: Thee Patton Primary Care Provider: Olivier Acosta Consulting Providers: Anaid Steele ; Penny Ellis Discharge Orders/Prescriptions Prescriptions: New Relistor 150 mg tablet 150 mg PO DAILY Qty: 30 0RF Continued ezetimibe [Zetia] 10 mg tablet 10 mg PO DAILY metoprolol succinate 25 mg tablet extended release 24 hr 25 mg PO QHS Label Comments: TAKE 1 TABLET BY MOUTH ONCE DAILY venlafaxine 150 mg capsule,extended release 24hr 150 cap PO DAILY esomeprazole magnesium 40 mg capsule,delayed release(DR/EC) 40 cap PO DAILY probiotic 1 tab PO DAILY ascorbate calcium (vitamin C) 500 mg tablet 500 mg PO DAILY D-Mannrose 1,000 mg PO BID Rx Instructions: 1000mg estradiol 0.01 % (0.1 mg/gram) cream 1 applic VAGINAL MOWEFR Label Comments: INSERT 1 GRAM VAGINALLY 3 TIMES A WEEK BEFORE BED cholecalciferol (vitamin D3) [Vitamin D3] 50 mcg (2,000 unit) capsule 2,000 unit PO DAILY Label Comments: TAKE 1 CAPSULE BY MOUTH ONCE DAILY insulin lispro [Humalog KwikPen Insulin] 100 unit/mL insulin pen 22 unit subcut TIDAC Hold Instructions: Resume on 09/16/22. nitrofurantoin monohyd/m-cryst 100 mg capsule 100 mg PO BID trimethoprim 100 mg tablet 100 mg PO DAILY Label Comments: TAKE 1 TABLET BY MOUTH EVERY DAY AT BEDTIME insulin glargine-yfgn 100 unit/mL (3 mL) insulin pen 40 unit subcut DAILY Referrals / Follow Up: Olivier Acosta MD [Primary Care Provider] - Within 1 Week Disposition Disposition (needs filled in before D/C Order can be placed): Home, Self Care 09/22/22 1032<Electronically signed by Thee Patton MD>Thee Patton MD CC: Dr. Anaid Steele MD; Dr. Penny Ellis MD; Dr. Olivier Acosta MD ~ Signed [facility] Work Phone: 1(733) 405-320001-17-[address] Steele [facility] September 22, 2022 7:47am Note Date/Time September 22, 2022 7 :45am [facility] Medical Records Department [address] [place] [id number] Progress Note - Surgery 09/22/22 0743 MR#: [id number] Acct: [id number] Name: KRISTEN MANN Rep #:[id number] : 1950 72 From: nAaid Steele MD PCP: Dr. Olivier Acosta MD Status:A DM IN Location: [facility] [place] PE097-0 Subjective Subjective Patient underwent colonoscopy yesterday - no signs of stricture and/or colon cancer she still complains of pain - primarily back Objective Data Objective Data Vital Signs: Vital Signs Temp Pulse Resp BP Pulse Ox O2 Del Method 97.6 F L 97 16 122/74 H 99 Room Air 09/22/22 03:00 09/22/22 03:00 09/22/22 03:00 09/22/22 03:00 09/22/22 03:00 09/22/22 03:00 Oxygen Delivery Method Room Air Weight: 85.332 kg Body Mass Index (BMI) 30.3 Intake & Output: Intake and Output for Last 24 Hours 09/20/22 09/21/22 09/22/22 23:59 23:59 23:59 Intake Total 400 / 900 567.25 / 567.25 Output Total 100 / 100 Balance 400 / 900 567.25 / 567.25 -100 / -100 Medical Nutrition Assessment Dietitian: Malnutrition Criteria Met Start: 09/19/22 12:36 Freq: Status: Active Protocol: Document 09/19/22 12:38 LO (Rec: 09/19/22 12:38 LO [id number]) Nutrition Malnutrition Evidence of Malnutrition Exists Yes Evidenced By Suboptimal Energy Intake ( Moderate),Weight Loss (Severe) Clinical Problem Acute Disease or Injury Related Malnutrition Etiology moderate related to altered GI function Signs/Symptoms as evidenced by <75% intake of estimated energy needs for >7 days and 2.5% weight loss in 7 days Status Active Problem Recommendation Dietitian Recommendations/Changes ADAT to Low Fiber when medically able to manage medical conditions. RD will order 120mL Ensure Clear 4x with med pass to provide supplemental energy. Lab / Micro Data Result Diagrams: 09/22/22 03:54 09/22/22 03:54 Labs: Laboratory Results - last 24 hr 09/21/22 06:30: Hemoglobin A1c 9.3 H 09/21/22 12:32: POC Glucose 254 H 09/21/22 18:56: POC Glucose 199 H 09/21/22 21:18: POC Glucose 364 H 09/22/22 03:54: WBC 12.3 H, RBC 4.45, Hgb 12.3, Hct 38.7, MCV 87.0, MCH 27.6, MCHC 31.8 L, RDW Std Deviation 42.7, RDW Coeff of Yonathan 13.5, Plt Count 361, MPV 9.1, Immature Gran % (Auto) 1.300 H, Neut % (Auto) 61.4, Lymph % (Auto) 24.2, [place] % (Auto) 8.9, Eos % (Auto) 3.7, Baso % (Auto) 0.5, Absolute Neuts (auto) 7.5, Absolute Lymphs (auto) 2.97, Nucleated RBC % 0 09/22/22 03:54: Sodium 139, Potassium 4.0, Chloride 105, Carbon Dioxide 23.0, Anion Gap 11, BUN 20 H, Creatinine 1.34 H, Estim Creat Clear Calc 36.57, Est GFR (MDRD) Af Amer 50 L, Est GFR (MDRD) Non-Af 42 L, BUN/Creatinine Ratio 14.9, Glucose 312 H, Calcium 9.1 Physical Exam Const alert and oriented x3 Neck supple Resp normal respiratory effort Effort and Inspection: able to speak in complete sentences GI GI Narrative: abdomen is soft and benign Assessment & Plan Assessment/Plan (1) Abnormal CT scan, colon: PLAN: at this point - there is no bowel obstruction abnormal findings on CT scan have been resolved with colonoscopy - no point of stricture/etc. I have no surgical options to offer patient - suspect patient has longstanding chronic constipation - functional I will sign off case, please re-consult general surgery if any clinical changes 09/22/22 7760 <Electronically signed by Anaid Steele MD> Cosigner Signature (if applicable): CC: ~ Signed [facility] Work Phone: [phone]) 221-175301-16-2023 Procedure [facility] 09-21-2022 Procedure [facility]01-16-[address] Patton [facility] September 21, 2022 10:38am Note Date/Time September 21, 2022 1 0:38am [facility] Medical Records Department [address] [place] [address] Progress Note - Hospitalist 09/21/22 1033 MR#: [id number] Acct: [id number] Name: KRISTEN MANN Rep #:[id number] : 1950 72 From: Thee thomas MD PCP: Dr. Olivier Acosta MD Status:A DM IN Location: [facility] [place] [facility] [id number] Subjective Subjective Do well, no issues overnight Objective Data Objective Data Vital Signs: Vital Signs Temp Pulse Resp BP Pulse Ox O2 Del Method 98.8 F 80 18 129/72 H 96 Room Air 09/21/22 09:57 09/21/22 09:57 09/21/22 09:57 09/21/22 09:57 09/21/22 09:57 09/21/22 05:24 Oxygen Delivery Method Room Air Weight: 188 lb 2 oz Body Mass Index (BMI) 30.3 Intake & Output: Intake and Output for Last 24 Hours 09/20/22 09/21/22 09/22/22 03:59 03:59 03:59 Intake Total 1531.25 / 1531.25 500 / 500 Balance 1531.25 / 1531.25 500 / 500 Medical Nutrition Assessment Dietitian: Malnutrition Criteria Met Start: 09/19/22 12:36 Freq: Status: Active Protocol: Document 09/19/22 12:38 LO (Rec: 09/19/22 12:38 LO [id number]) Nutrition Malnutrition Evidence of Malnutrition Exists Yes Evidenced By Suboptimal Energy Intake ( Moderate),Weight Loss (Severe) Clinical Problem Acute Disease or Injury Related Malnutrition Etiology moderate related to altered GI function Signs/Symptoms as evidenced by <75% intake of estimated energy needs for >7 days and 2.5% weight loss in 7 days Status Active Problem Recommendation Dietitian Recommendations/Changes ADAT to Low Fiber when medically able to manage medical conditions. RD will order 120mL Ensure Clear 4x with med pass to provide supplemental energy. Lab / Micro Data Result Diagrams: 09/21/22 06:30 09/21/22 06:30 Labs: Laboratory Results - last 24 hr 09/20/22 12:09: POC Glucose 302 H 09/20/22 17:08: POC Glucose 213 H 09/20/22 21:17: POC Glucose 228 H 09/21/22 06:30: WBC 9.5, RBC 4.37, Hgb 12.0, Hct 37.8, MCV 86.5, MCH 27.5, MCHC 31.7 L, RDW Std Deviation 42.7, RDW Coeff of Yonathan 13.6, Plt Count 364, MPV 9.1, Immature Gran % (Auto) 1.000 H, Neut % (Auto) 58.8, Lymph % (Auto) 26.6, [place] % (Auto) 8.0, Eos % (Auto) 5.1 H, Baso % (Auto) 0.5, Absolute Neuts (auto) 5.6, Absolute Lymphs (auto) 2.52, Nucleated RBC % 0 09/21/22 06:30: Sodium 139, Potassium 3.9, Chloride 106, Carbon Dioxide 24.0, Anion Gap 9, BUN 13, Creatinine 1.11 H, Estim Creat Clear Calc 44.15, Est GFR (MDRD) Af Amer 62, Est GFR (MDRD) Non-Af 52 L, BUN/Creatinine Ratio 11.7, Glucose 262 H, Calcium 9.4, Total Bilirubin 0.40, AST 10 L, ALT 14, Alkaline Phosphatase 128 H, Total Protein 7.5, Albumin 2.6 L, Globulin 4.9 H, Albumin/Globulin Ratio 0.5 L 09/21/22 06:30: Hemoglobin A1c 9.3 H 09/21/22 06:44: POC Glucose 236 H Radiography Diagnostic Testing: Radiology Impression KUB X-Ray 09/20/22 21:00 IMPRESSION: Nonobstructive abdomen. Electronically Signed: Ana María Cool MD at 21:23 EST Reading Location ID and State: [id number] / Tel , Service support , Physical Exam Narrative General: Alert, Oriented x3, Cooperative, No apparent distress HEENT: Atraumatic, PERRLA, EOMI, Normocephalic Oral: Moist Mucosa Neck: Supple, No JVD Lungs: Clear to auscultation, Normal air movement, No rhonchi, No wheeze, No rales Cardiovascular: Regular rate, Regular Rhythm, Normal S1, Normal S2, No murmurs Abdomen: Soft, Non Tender, Non-Distended, No Hepato-splenomegaly Extremities: No edema, Capillary Refill Less than 3 Seconds Skin: No rashes, No breakdown Musculoskeletal: No Tenderness to Palpation of Joints or Extremities Neurological: Cranial nerves II-XII grossly intact, Motor Exam 5/5 strength throughout, Sensory exam intact to light touch and pain Psych/Mental Status: Normal Affect, Appropriate Assessment & Plan Assessment/Plan (1) Nausea: PLAN: Plan #Nausea/vomiting 2/2 partial colonic blockage vs chronic constipation due to colonic stricture versus mass Had CT with contrast in the ED which showed a large amount of fecal material in the right hemicolon. There appeared on the scan to be a transition point in theregion of the splenic flexure where the descending colon and sigmoid colon were nondistended and clinical correlation advised Passing gas has not had a BM Nausea vomiting NG tube, surgery consult N.p.o. IV fluids Given n.p.o. medication regimen for pain limited as opioids may worsen constipation but will place this cautiously 09/19: On CT concern for narrowing of the splenic flexure. Could be neoplastic process versus stricture. Surgery following and plans to contact Dr. Warren today for possible colonoscopy. Unsuccessful NG placement x2 but actively vomiting and no significant nausea at this time though still not had a bowel movement. Nausea and vomiting improving but still has not had a BM, evaluated byGI, will start slow bowel prep and is on clears with goal of colonoscopy. Possible partial colon blockage however possibly secondary to chronic constipation due to chronic opioid usage 09/20: Having multiple BMs since bowel prep and feeling slightly better. Tolerating clears. NPO at midnight in the event colonoscopy tomorrow. Further dispo after colonoscopy 09/21: Awaiting colonoscopy #Type 2 diabetes mellitus Is on long-acting insulin but given n.p.o. we will do glucose checks and slidingscale insulin Despite holding long-acting has had some low glucose, will continue to hold long-acting especially as still n.p.o. and will de-escalate sliding scale from medium to low. 09/20: Now that p.o. intake increasing glucose significantly elevated, will increase sliding scale and start 10 units of long-acting, appears to take 40 at home 09/21: Blood sugars are still elevated we will continue to monitor #CKD stage IIIb Avoid nephrotoxic agents, trend BMP, currently at baseline #HTN Resume home meds #Anxiety/depression ? Stable ? Continue Effexor #DVT ppx: SCDs Charges/Coding Visit Charges Inpatient E&M: 63933 Subs Hosp L2 09/21/22 1038 <Electronically signed by Thee Patton MD> Cosigner Signature (if applicable): CC: ~ Signed [facility] Work Phone: 1(388) 434-680801-16-[address] Steele [facility] September 21, 2022 7:40am Note Date/Time September 21, 2022 7 :40am [facility] Medical Records Department [address] [place] [address] Progress Note - Surgery 09/21/22 0738 MR#: [id number] Acct: [id number] Name: MELKRISTEN Rep #:[id number] : 1950 72 From: Anaid Steele MD PCP: Dr. Olivier Acosta MD Status:A DM IN Location: [facility] [place] [id number] Subjective Subjective patient states that pain is unchanged Objective Data Objective Data Vital Signs: Vital Signs Temp Pulse Resp BP Pulse Ox O2 Del Method 98.7 F 78 18 127/87 H 97 Room Air 09/21/22 05:24 09/21/22 05:24 09/21/22 05:24 09/21/22 05:24 09/21/22 05:24 09/21/22 05:24 Oxygen Delivery Method Room Air Weight: 85.332 kg Body Mass Index (BMI) 30.3 Intake & Output: Intake and Output for Last 24 Hours 09/19/22 09/20/22 09/21/22 23:59 23:59 23:59 Intake Total 1984. 2385.00 400 / 900 500 / 500 Balance 5.00 400 / 900 500 / 500 Medical Nutrition Assessment Dietitian: Malnutrition Criteria Met Start: 09/19/22 12:36 Freq: Status: Active Protocol: Document 09/19/22 12:38 LO (Rec: 09/19/22 12:38 [id number]) Nutrition Malnutrition Evidence of Malnutrition Exists Yes Evidenced By Suboptimal Energy Intake ( Moderate),Weight Loss (Severe) Clinical Problem Acute Disease or Injury Related Malnutrition Etiology moderate related to altered GI function Signs/Symptoms as evidenced by <75% intake of estimated energy needs for >7 days and 2.5% weight loss in 7 days Status Active Problem Recommendation Dietitian Recommendations/Changes ADAT to Low Fiber when medically able to manage medical conditions. RD will order 120mL Ensure Clear 4x with med pass to provide supplemental energy. Lab / Micro Data Attestation: I reviewed the patient's lab results. Result Diagrams: 09/21/22 06:30 09/21/22 06:30 Labs: Laboratory Results - last 24 hr 09/20/22 06:38: POC Glucose 224 H 09/20/22 12:09: POC Glucose 302 H 09/20/22 17:08: POC Glucose 213 H 09/20/22 21:17: POC Glucose 228 H 09/21/22 06:30: WBC 9.5, RBC 4.37, Hgb 12.0, Hct 37.8, MCV 86.5, MCH 27.5, MCHC 31.7 L, RDW Std Deviation 42.7, RDW Coeff of Yonathan 13.6, Plt Count 364, MPV 9.1, Immature Gran % (Auto) 1.000 H, Neut % (Auto) 58.8, Lymph % (Auto) 26.6, [place] % (Auto) 8.0, Eos % (Auto) 5.1 H, Baso % (Auto) 0.5, Absolute Neuts (auto) 5.6, Absolute Lymphs (auto) 2.52, Nucleated RBC % 0 09/21/22 06:30: Sodium 139, Potassium 3.9, Chloride 106, Carbon Dioxide 24.0, Anion Gap 9, BUN 13, Creatinine 1.11 H, Estim Creat Clear Calc 44.15, Est GFR (MDRD) Af Amer 62, Est GFR (MDRD) Non-Af 52 L, BUN/Creatinine Ratio 11.7, Glucose 262 H, Calcium 9.4, Total Bilirubin 0.40, AST 10 L, ALT 14, Alkaline Phosphatase 128 H, Total Protein 7.5, Albumin 2.6 L, Globulin 4.9 H, Albumin/Globulin Ratio 0.5 L 09/21/22 06:44: POC Glucose 236 H Radiography Diagnostic Testing: Radiology Impression KUB X-Ray 09/20/22 21:00 IMPRESSION: Nonobstructive abdomen. Electronically Signed: Ana María Cool MD at 21:23 EST Reading Location ID and State: [id number] / Tel , Service support , Physical Exam Const alert and oriented x3 Neck supple Resp normal respiratory effort Effort and Inspection: able to speak in complete sentences GI GI Narrative: abdominal examination is unchanged Assessment & Plan Assessment/Plan (1) Abnormal CT scan, colon: PLAN: pending colonoscopic evaluation by Dr. Warren will determine further evaluation and treatment based upon above. 09/21/22 0740 <Electronically signed by Anaid Steele MD> Cosigner Signature (if applicable): CC: ~ Signed [facility] Work Phone: 1([phone]) 248-324401-15-2023 Progress note Author Kayode Warren [facility] September 20, 2022 4:30pm Note Date/Time September 20, 2022 4 :29pm [facility] Medical Records Department [address] [place] [address] Progress Note 09/20/22 1625 MR#: [id number] Acct: [id number] Name: KRISTEN MANN Rep #:[id number] : 1950 72 From: Kayode Friend DO PCP: Dr. Olivier Acosta MD Status:A DM IN Location: [facility] [place] GU217-0 Subjective Subjective Patient took bowel prep and is having multiple bowel movements. Her abdominal pain does feel a lot better. She denies any nausea, chest pain or shortness of breath. Objective Data Objective Data Vital Signs: Vital Signs Temp Pulse Resp BP Pulse Ox O2 Del Method 98.2 F 77 18 136/74 H 96 Room Air 09/20/22 11:00 09/20/22 11:00 09/20/22 11:00 09/20/22 11:00 09/20/22 11:00 09/20/22 11:00 Oxygen Delivery Method Room Air Weight: 188 lb 2 oz Body Mass Index (BMI) 30.3 Intake & Output: Intake and Output for Last 24 Hours 09/18/22 09/19/22 09/20/22 23:59 23:59 23:59 Intake Total 2384. 400 / 400 Balance 400 / 400 Medical Nutrition Assessment Dietitian: Malnutrition Criteria Met Start: 09/19/22 12:36 Freq: Status: Active Protocol: Document 09/19/22 12:38 (Rec: 09/19/22 12:38 [id number]) Nutrition Malnutrition Evidence of Malnutrition Exists Yes Evidenced By Suboptimal Energy Intake ( Moderate),Weight Loss (Severe) Clinical Problem Acute Disease or Injury Related Malnutrition Etiology moderate related to altered GI function Signs/Symptoms as evidenced by <75% intake of estimated energy needs for >7 days and 2.5% weight loss in 7 days Status Active Problem Recommendation Dietitian Recommendations/Changes ADAT to Low Fiber when medically able to manage medical conditions. RD will order 120mL Ensure Clear 4x with med pass to provide supplemental energy. Lab / Micro Data Result Diagrams: 09/20/22 04:58 09/20/22 04:58 Labs: Laboratory Results - last 24 hr 09/19/22 18:21: POC Glucose 331 H 09/19/22 21:29: POC Glucose 366 H 09/20/22 04:58: WBC 9.9, RBC 4.18 L, Hgb 11.5 L, Hct 36.4 L, MCV 87.1, MCH 27.5,MCHC 31.6 L, RDW Std Deviation 44.5 H, RDW Coeff of Yonathan 14.0, Plt Count 350, MPV8.7, Immature Gran % (Auto) 0.800, Neut % (Auto) 59.5, Lymph % (Auto) 26.1, [place]% (Auto) 9.0, Eos % (Auto) 4.0, Baso % (Auto) 0.6, Absolute Neuts (auto) 5.9, Absolute Lymphs (auto) 2.58, Nucleated RBC % 0 09/20/22 04:58: Sodium 138, Potassium 3.8, Chloride 106, Carbon Dioxide 23.0, Anion Gap 9, BUN 16, Creatinine 1.06 H, Estim Creat Clear Calc 46.23, Est GFR (MDRD) Af Amer 66, Est GFR (MDRD) Non-Af 54 L, BUN/Creatinine Ratio 15.1, Glucose 227 H, Calcium 9.0 09/20/22 06:38: POC Glucose 224 H 09/20/22 12:09: POC Glucose 302 H Physical Exam Const alert and oriented x3 General Appearance: cooperative Neck supple Resp normal respiratory effort Effort and Inspection: able to speak in complete sentences GI GI Narrative: abdominal examination - soft, no peritoneal signs Assessment & Plan Assessment/Plan (1) Abnormal CT scan, colon: PLAN: I will repeat the abdominal x-ray today and give her more bowel prep. In an anticipation for colonoscopy tomorrow. Charges/Coding Visit Charges Inpatient E&M: 03961 Subs Hosp L2 09/20/22 1630 <Electronically signed by Kayode Warren DO> Kayode Warren DO Cosigner Signature (if applicable): CC: ~ Signed [facility] Work Phone: 1(237) 608-695001-15-[address] Ellis [facility] September 20, 2022 2:23pm Note Date/Time September 20, 2022 7 :[address] [place] [address] Medical Records Department [address] [place] [address] Progress Note - Hospitalist 09/20/22 0706 MR#: [id number] Acct: [id number] Name: KRISTEN MANN Rep #:[id number] : 1950 72 From: Penny Ellis MD PCP: Dr. Olivier Acosta MD Status:A DM IN Location: [facility] GT387-7 Subjective Subjective Has had multiple bowel movements now reports pain is feeling somewhat better. No nausea. Is tolerating clears fairly well Objective Data Objective Data Vital Signs: Vital Signs Temp Pulse Resp BP Pulse Ox O2 Del Method 98.6 F 90 18 120/63 99 Room Air 09/20/22 05:43 09/20/22 05:43 09/20/22 05:43 09/20/22 05:43 09/20/22 05:43 09/20/22 05:43 Oxygen Delivery Method Room Air Weight: 85.332 kg Body Mass Index (BMI) 30.3 Intake & Output: Intake and Output for Last 24 Hours 09/18/22 09/19/22 09/20/22 23:59 23:59 23:59 Intake Total 2384. 400 / 400 Balance 400 / 400 Medical Nutrition Assessment Dietitian: Malnutrition Criteria Met Start: 09/19/22 12:36 Freq: Status: Active Protocol: Document 09/19/22 12:38 LO (Rec: 09/19/22 12:38 LO [id number]) Nutrition Malnutrition Evidence of Malnutrition Exists Yes Evidenced By Suboptimal Energy Intake ( Moderate),Weight Loss (Severe) Clinical Problem Acute Disease or Injury Related Malnutrition Etiology moderate related to altered GI function Signs/Symptoms as evidenced by <75% intake of estimated energy needs for >7 days and 2.5% weight loss in 7 days Status Active Problem Recommendation Dietitian Recommendations/Changes ADAT to Low Fiber when medically able to manage medical conditions. RD will order 120mL Ensure Clear 4x with med pass to provide supplemental energy. Lab / Micro Data Result Diagrams: 09/20/22 04:58 09/20/22 04:58 Labs: Laboratory Results - last 24 hr 09/19/22 11:31: POC Glucose 84 09/19/22 18:21: POC Glucose 331 H 09/19/22 21:29: POC Glucose 366 H 09/20/22 04:58: WBC 9.9, RBC 4.18 L, Hgb 11.5 L, Hct 36.4 L, MCV 87.1, MCH 27.5,MCHC 31.6 L, RDW Std Deviation 44.5 H, RDW Coeff of Yonathan 14.0, Plt Count 350, MPV8.7, Immature Gran % (Auto) 0.800, Neut % (Auto) 59.5, Lymph % (Auto) 26.1, [place]% (Auto) 9.0, Eos % (Auto) 4.0, Baso % (Auto) 0.6, Absolute Neuts (auto) 5.9, Absolute Lymphs (auto) 2.58, Nucleated RBC % 0 09/20/22 04:58: Sodium 138, Potassium 3.8, Chloride 106, Carbon Dioxide 23.0, Anion Gap 9, BUN 16, Creatinine 1.06 H, Estim Creat Clear Calc 46.23, Est GFR (MDRD) Af Amer 66, Est GFR (MDRD) Non-Af 54 L, BUN/Creatinine Ratio 15.1, Glucose 227 H, Calcium 9.0 Physical Exam Const alert Constitutional Narrative: Oriented, no acute distress HEENT normocephalic and head/scalp atraumatic Eyes Eyes Narrative: EOM grossly intact, anicteric Neck supple Resp normal respiratory effort and clear to auscultation bilaterally Cardio regular rate and regular rhythm GI GI Narrative: Soft to palpation, no significant tenderness. No rebound/guarding/rigidity Extremity Extremity Narrative: No edema appreciated Neuro moves all extremities Neuro Narrative: No overt focal deficits appreciated Psych Psych Narrative: Cooperative Assessment & Plan Assessment/Plan (1) Nausea: PLAN: Plan #Nausea/vomiting 2/2 partial colonic blockage vs chronic constipation, ?colonic stricture Had CT with contrast in the ED which showed a large amount of fecal material in the right hemicolon. There appeared on the scan to be a transition point in theregion of the splenic flexure where the descending colon and sigmoid colon were nondistended and clinical correlation advised Passing gas has not had a BM Nausea vomiting NG tube, surgery consult N.p.o. IV fluids Given n.p.o. medication regimen for pain limited as opioids may worsen constipation but will place this cautiously 1/14: On CT concern for narrowing of the splenic flexure. Could be neoplastic process versus stricture. Surgery following and plans to contact Dr. Warren today for possible colonoscopy. Unsuccessful NG placement x2 but actively vomiting and no significant nausea at this time though still not had a bowel movement. Nausea and vomiting improving but still has not had a BM, evaluated byGI, will start slow bowel prep and is on clears with goal of colonoscopy. Possible partial colon blockage however possibly secondary to chronic constipation due to chronic opioid usage 09/20: Having multiple BMs since bowel prep and feeling slightly better. Tolerating clears. NPO at midnight in the event colonoscopy tomorrow. Further dispo after colonoscopy #Type 2 diabetes mellitus Is on long-acting insulin but given n.p.o. we will do glucose checks and slidingscale insulin Despite holding long-acting has had some low glucose, will continue to hold long-acting especially as still n.p.o. and will de-escalate sliding scale from medium to low. 09/20: Now that p.o. intake increasing glucose significantly elevated, will increase sliding scale and start 10 units of long-acting, appears to take 40 at home #CKD stage IIIb Avoid nephrotoxic agents, trend BMP #HTN Resume home meds #DVT ppx: SCDs Penny Ellis MD Charges/Coding Visit Charges Inpatient E&M: 54846 Subs Hosp L2 09/20/22 1423 <Electronically signed by Penny Ellis MD> Cosigner Signature (if applicable): CC: ~ Signed [facility] Work Phone: 1(240) 671-493101-15-[address] Steele [facility] September 20, 2022 10:38am Note Date/Time September 20, 2022 1 0:38am [facility] Medical Records Department [address] [place] [address] Progress Note - Surgery 09/20/22 1035 MR#: [id number] Acct: [id number] Name: KRISTEN MANN Rep #:[id number] : 1950 72 From: Anaid Steele MD PCP: Dr. Olivier Acosta MD Status:A DM IN Location: [place] [id number] Subjective Subjective patient states that she feels slightly improved She has had multiple bowel movements - which has relieved her pain somewhat Objective Data Objective Data Vital Signs: Vital Signs Temp Pulse Resp BP Pulse Ox O2 Del Method 98.6 F 90 18 120/63 99 Room Air 09/20/22 05:43 09/20/22 05:43 09/20/22 05:43 09/20/22 05:43 09/20/22 05:43 09/20/22 05:43 Oxygen Delivery Method Room Air Weight: 85.332 kg Body Mass Index (BMI) 30.3 Intake & Output: Intake and Output for Last 24 Hours 09/18/22 09/19/22 09/20/22 23:59 23:59 23:59 Intake Total 400 / 400 Balance 400 / 400 Medical Nutrition Assessment Dietitian: Malnutrition Criteria Met Start: 09/19/22 12:36 Freq: Status: Active Protocol: Document 09/19/22 12:38 LO (Rec: 09/19/22 12:38 LO [id number]) Nutrition Malnutrition Evidence of Malnutrition Exists Yes Evidenced By Suboptimal Energy Intake ( Moderate),Weight Loss (Severe) Clinical Problem Acute Disease or Injury Related Malnutrition Etiology moderate related to altered GI function Signs/Symptoms as evidenced by <75% intake of estimated energy needs for >7 days and 2.5% weight loss in 7 days Status Active Problem Recommendation Dietitian Recommendations/Changes ADAT to Low Fiber when medically able to manage medical conditions. RD will order 120mL Ensure Clear 4x with med pass to provide supplemental energy. Lab / Micro Data Attestation: I reviewed the patient's lab results. Result Diagrams: 09/20/22 04:58 09/20/22 04:58 Labs: Laboratory Results - last 24 hr 09/19/22 11:31: POC Glucose 84 09/19/22 18:21: POC Glucose 331 H 09/19/22 21:29: POC Glucose 366 H 09/20/22 04:58: WBC 9.9, RBC 4.18 L, Hgb 11.5 L, Hct 36.4 L, MCV 87.1, MCH 27.5,MCHC 31.6 L, RDW Std Deviation 44.5 H, RDW Coeff of Yonathan 14.0, Plt Count 350, MPV8.7, Immature Gran % (Auto) 0.800, Neut % (Auto) 59.5, Lymph % (Auto) 26.1, [place]% (Auto) 9.0, Eos % (Auto) 4.0, Baso % (Auto) 0.6, Absolute Neuts (auto) 5.9, Absolute Lymphs (auto) 2.58, Nucleated RBC % 0 09/20/22 04:58: Sodium 138, Potassium 3.8, Chloride 106, Carbon Dioxide 23.0, Anion Gap 9, BUN 16, Creatinine 1.06 H, Estim Creat Clear Calc 46.23, Est GFR (MDRD) Af Amer 66, Est GFR (MDRD) Non-Af 54 L, BUN/Creatinine Ratio 15.1, Glucose 227 H, Calcium 9.0 09/20/22 06:38: POC Glucose 224 H Physical Exam Const alert and oriented x3 General Appearance: cooperative Neck supple Resp normal respiratory effort Effort and Inspection: able to speak in complete sentences GI GI Narrative: abdominal examination - soft, no peritoneal signs Assessment & Plan Assessment/Plan (1) Abnormal CT scan, colon: PLAN: Bowel obstruction has resolved Awaiting colonoscopic evaluation by Dr. Warren will determine how to proceed after colonoscopy is done continue present therapy 09/20/22 1038 <Electronically signed by Anaid Steele MD> Cosigner Signature (if applicable): CC: ~ Signed [facility] Work Phone: [phone]) 784-692501-14-2023 Consult note Author Kayode Warren [facility] September 19, 2022 11:15am Note Date/Time September 19, 2022 1 1:10am [facility] Medical Records Department [address] [place] [id number] Consultation - GI 09/19/22 1109 MR#: [id number] Acct: [id number] Name: KRISTEN MANN Rep #:[id number] : 1950 72 From: Kayode Warren DO PCP: Dr. Olivier Acosta MD Status:A DM IN Location: [facility] [id number] HPI Consult Data Date of Consult: 09/19/22 HPI Narrative Reason for Consultation: Bowel obstruction HPI Narrative: KRISTEN MANN, is a 72 y/o F with past medical history of hypertension, hyperlipidemia, cardiac arrhythmia status post permanent pacemaker chronic back pain on chronic opioids, TIA, obstructive sleep apnea, diabetes with chronic idiopathic constipation. She presented back to the ED yesterday with worsening abdominal pain and concern for obstruction. She recently had a partial small bowel obstruction and was admitted to the hospital.? She also reports recent history of UTI.? Patient states that while she was in the hospital she was receiving soapsuds enemas and was able to have bowel movements.? Since she has been home she has been taking lactulose, MiraLAX, stool softeners and has not been able to have a bowel movement.? She reports that her pain is increasing.? She describes it as diffuse.? She has been able to hold down some soups and some fluids but started vomiting.? She is concerned she has an obstruction.? CT scan of the abdomen pelvis shows a narrowing at the level of the splenic flexure. Her last colonoscopy was back in 2012. I was asked to see her by Dr. Steele for possible colonoscopy and evaluation of a colonic blockage. [facility] Medical History Abnormal CT scan, colon Asthma Carotid stenosis, bilateral Chronic pain Depression Diabetes GERD (gastroesophageal reflux disease) HLD (hyperlipidemia) HTN (hypertension) Non-smoker Pacemaker Pancreatitis Sleep apnea TIA (transient ischemic attack) Home Medications ezetimibe 10 mg tablet (Zetia) 10 mg PO DAILY . 05/31/19 [History Last Taken 09/17/22] D-Mannrose 1,000 mg PO BID UTI 08/03/22 [History Last Taken 09/17/22] ascorbate calcium (vitamin C) 500 mg tablet 500 mg PO DAILY SUPPLEMENT 08/03/22 [History Last Taken 09/17/22] probiotic 1 tab PO DAILY SUPPLEMENT 08/03/22 [History Last Taken 09/17/22] esomeprazole magnesium 40 mg capsule,delayed release 40 cap PO DAILY . 08/06/22 [History Last Taken 09/17/22] metoprolol succinate 25 mg tablet,extended release 24 hr 25 mg PO QHS BLOOD PRESSURE 08/06/22 [History Last Taken 09/17/22] venlafaxine 150 mg capsule,extended release 24 hr 150 cap PO DAILY DEPRESSION 08/06/22 [History Last Taken 09/17/22] cholecalciferol (vitamin D3) 50 mcg (2,000 unit) capsule (Vitamin D3) 2,000 unitPO DAILY SUPPLEMENT 08/31/22 [History Last Taken 09/17/22] estradiol 0.01% (0.1 mg/gram) vaginal cream 1 applic vaginal MOWEFR HORMONE 08/31/22 [History Last Taken 09/16/22] insulin lispro 100 unit/mL subcutaneous pen (Humalog KwikPen (U-100) Insulin) 22unit subcut TIDAC Check with primary doctor 09/12/22 [History Last Taken 09/17/22] nitrofurantoin monohydrate/macrocrystals 100 mg capsule 100 mg PO BID UTI 09/13/22 [History Last Taken 09/17/22] insulin glargine-yfgn 100 unit/mL (3 mL) subcutaneous pen 40 unit subcut DAILY DM 09/18/22 [History Last Taken 09/18/22] trimethoprim 100 mg tablet 100 mg PO DAILY UTI 09/18/22 [History Last Taken Unknown] Allergy/AdvReac Type Severity Reaction Status Date / Time morphine Allergy Mild Rash Verified 09/18/22 08:39 Penicillins Allergy Mild Rash Verified 09/18/22 08:39 Sulfa (Sulfonamide Allergy Mild Rash Verified 09/18/22 08:39 Antibiotics) Family History Mother Hypertension Father Asthma Depression Diabetes High cholesterol Hypertension Other Arthritis Autoimmune disorder Breast cancer Cancer Kidney disease Surgical History H/O section H/O: hysterectomy History of appendectomy History of cholecystectomy Hx laparoscopic cholecystectomy Social History household members: none Smoking Status: Never smoker alcohol intake: never substance use type: does not use what type of physical activity do you participate in: none ROS Constitutional Constitutional: Reports fatigue; Denies fever(s) Eyes Eyes: Denies loss of vision ENT HEENT: Denies epistaxis Cardiovascular Cardiovascular: Denies chest pain at rest Respiratory/Chest Respiratory/Chest: Denies productive cough or shortness of breath at rest Gastrointestinal Gastrointestinal: Reports systems reviewed and no addt'l complaints, except as documented Genitourinary Genitourinary: Denies hematuria Musculoskeletal Musculoskeletal: Denies abnormal gait Integumentary Integumentary: Denies jaundice Neurologic Neurologic: Denies abnormal gait Endocrine Endocrinology: Denies heat intolerance Hematologic/Lymphatic Hematologic/Lymphatic: Denies easy bleeding Physical Exam Const alert Constitutional Narrative: Oriented, no acute distress HEENT normocephalic and head/scalp atraumatic Eyes Eyes Narrative: EOM grossly intact, anicteric Neck supple Resp normal respiratory effort and clear to auscultation bilaterally Cardio regular rate and regular rhythm GI GI Narrative: Soft to palpation, no significant tenderness, somewhat bloated. No rebound/guarding/rigidity Extremity Extremity Narrative: No edema appreciated Neuro moves all extremities Neuro Narrative: No overt focal deficits appreciated Psych Psych Narrative: Cooperative Lab / Micro Data Result Diagrams: 09/19/22 05:43 09/19/22 05:43 Labs: Laboratory Results - last 24 hr 09/18/22 16:40: POC Glucose 111 H 09/18/22 18:56: POC Glucose 85 09/18/22 21:01: POC Glucose 77 09/19/22 03:00: POC Glucose 75 09/19/22 05:43: WBC 11.0, RBC 4.43, Hgb 12.2, Hct 38.8, MCV 87.6, MCH 27.5, MCHC31.4 L, RDW Std Deviation 45.3 H, RDW Coeff of Yonathan 14.2, Plt Count 411, MPV 8.9,Immature Gran % (Auto) 1.000 H, Neut % (Auto) 66.6, Lymph % (Auto) 21.7, [place] % (Auto) 7.4, Eos % (Auto) 2.8, Baso % (Auto) 0.5, Absolute Neuts (auto) 7.3, Absolute Lymphs (auto) 2.40, Nucleated RBC % 0 09/19/22 05:43: Sodium 143, Potassium 3.8, Chloride 110 H, Carbon Dioxide 25.0, Anion Gap 8, BUN 16, Creatinine 1.08 H, Estim Creat Clear Calc 45.37, Est GFR (MDRD) Af Amer 64, Est GFR (MDRD) Non-Af 53 L, BUN/Creatinine Ratio 14.8, Glucose 107 H, Calcium 9.2, Total Bilirubin 0.30, AST 12 L, ALT 15, Alkaline Phosphatase 125 H, Total Protein 7.7, Albumin 2.7 L, Globulin 5.0 H, Albumin/Globulin Ratio 0.5 L 09/19/22 05:50: POC Glucose 112 H Radiology Impression Abdomen/Pelvis CT 09/18/22 09:27 IMPRESSION: Large amount of fecal material is seen in the right hemicolon. There appears to be a transition point in the region of the splenic flexure where the descending colon and sigmoid colon are nondistended. Clinical correlation is recommended. Electronically Signed: Theo Perez MD at 11:38 EST , KUB X-Ray 09/18/22 12:20 IMPRESSION: The distal tip of the nasogastric tube is in the mid esophagus. Electronically Signed: Theo Perez MD at 13:14 EST , KUB X-Ray 09/18/22 12:55 IMPRESSION: The tip of nasogastric tube is coiled in the distal portion of the esophagus. Electronically Signed: Theo Perez MD at 13:13 EST , Assessment & Plan Assessment/Plan (1) Abnormal CT scan, colon: PLAN: I had a long talk over 45 minutes with the patient and her daughter explaining the possible etiologies of her abdominal pain, bloating and the possibility of a partial blockage in the colon. I do not think she has a total blockage in her colon at this time. I think this was likely brought on secondary to chronic constipation with chronic opioid usage. However it has been 10 years since she has had a colonoscopy and neoplasm is higher on the differential diagnosis along with ischemia. She is not very uncomfortable at this time. I will give her a slow bowel prep and I told her if she starts to get bloated or nauseous to stop drinking and she may need a repeat NG tube. Sheresponded very well to enemas and I am hoping that the Gastrografin that was given to her yesterday for a CAT scan will open up her bowels. Charges/Coding Visit Charges Inpatient E&M: 12429 Init Hosp L3 09/19/22 1115 <Electronically signed by Kayode Friend DO> Cosigner Signature (if applicable): CC: Dr. Anaid Steele MD; Dr. lOivier Acosta MD~ Signed [facility] Work Phone: 1(475) 120-420501-14-[address] Steele [facility] September 19, 2022 10:36am Note Date/Time September 19, 2022 9 :39am [facility] Medical Records Department [address] [place] [address] Progress Note - Surgery 09/19/22937 MR#: [id number] Acct: [id number] Name: KRISTEN MANN Rep #:[id number] : 1950 72 From: Anaid Steele MD PCP: Dr. Olivier Acosta MD Status:A DM IN Location: [facility] [place] [id number] Subjective Subjective patient remains unchanged, she states that her abdominal pain is the same She denies any bowel movements with enemas Objective Data Objective Data Vital Signs: Vital Signs Temp Pulse Resp BP Pulse Ox O2 Del Method 97.6 F L 71 18 134/75 H 99 Room Air 09/19/22 03:00 09/19/22 03:00 09/19/22 03:00 09/19/22 03:00 09/19/22 03:00 09/19/22 03:00 Oxygen Delivery Method Room Air Weight: 85.332 kg Body Mass Index (BMI) 30.3 Intake & Output: Intake and Output for Last 24 Hours 09/17/22 09/18/22 09/19/22 23:59 23:59 23:59 Intake Total 985.00 / 985.00 Balance 985.00 / 985.00 Lab / Micro Data Attestation: I reviewed the patient's lab results. Result Diagrams: 09/19/22 05:43 09/19/22 05:43 Labs: Laboratory Results - last 24 hr 09/18/22 08:53: WBC 13.0 H, RBC 4.52, Hgb 12.5, Hct 39.2, MCV 86.7, MCH 27.7, MCHC 31.9 L, RDW Std Deviation 44.6 H, RDW Coeff of Yonathan 14.0, Plt Count 462 H, MPV 9.5, Immature Gran % (Auto) 1.000 H, Neut % (Auto) 71.3 H, Lymph % (Auto) 16.2 L, [place] % (Auto) 7.9, Eos % (Auto) 3.0, Baso % (Auto) 0.6, Absolute Neuts (auto) 9.3 H, Absolute Lymphs (auto) 2.10, Nucleated RBC % 0 09/18/22 08:53: Sodium 137, Potassium 4.5, Chloride 105, Carbon Dioxide 25.0, Anion Gap 7, BUN 16, Creatinine 1.17 H, Estim Creat Clear Calc 41.88, Est GFR (MDRD) Af Amer 59 L, Est GFR (MDRD) Non-Af 49 L, BUN/Creatinine Ratio 13.7, Glucose 222 H, Calcium 9.7, Total Bilirubin 0.30, AST 12 L, ALT 15, Alkaline Phosphatase 129 H, Total Protein 8.3 H, Albumin 2.9 L, Globulin 5.4 H, Albumin/Globulin Ratio 0.5 L, Lipase 145 09/18/22 09:40: Urine Color Yellow, Urine Clarity Sl. Cloudy, Urine pH 7.0, Ur Specific [place] 1.010, Urine Protein 15 H, Urine Glucose (UA) Normal, Urine Ketones Negative, Urine Occult Blood Negative, Urine Nitrite Negative, Urine Bilirubin Negative, Urine Urobilinogen Normal, Ur Leukocyte Esterase 500 H, Urine RBC 0 SEEN, Urine WBC 25-50 SEEN, Ur Squamous Epith Cells 0-5 SEEN, Urine Bacteria 0 SEEN, Urine Mucus 0 SEEN 09/18/22 16:40: POC Glucose 111 H 09/18/22 18:56: POC Glucose 85 09/18/22 21:01: POC Glucose 77 09/19/22 03:00: POC Glucose 75 09/19/22 05:43: WBC 11.0, RBC 4.43, Hgb 12.2, Hct 38.8, MCV 87.6, MCH 27.5, MCHC31.4 L, RDW Std Deviation 45.3 H, RDW Coeff of Yonathan 14.2, Plt Count 411, MPV 8.9,Immature Gran % (Auto) 1.000 H, Neut % (Auto) 66.6, Lymph % (Auto) 21.7, [place] % (Auto) 7.4, Eos % (Auto) 2.8, Baso % (Auto) 0.5, Absolute Neuts (auto) 7.3, Absolute Lymphs (auto) 2.40, Nucleated RBC % 0 09/19/22 05:43: Sodium 143, Potassium 3.8, Chloride 110 H, Carbon Dioxide 25.0, Anion Gap 8, BUN 16, Creatinine 1.08 H, Estim Creat Clear Calc 45.37, Est GFR (MDRD) Af Amer 64, Est GFR (MDRD) Non-Af 53 L, BUN/Creatinine Ratio 14.8, Glucose 107 H, Calcium 9.2, Total Bilirubin 0.30, AST 12 L, ALT 15, Alkaline Phosphatase 125 H, Total Protein 7.7, Albumin 2.7 L, Globulin 5.0 H, Albumin/Globulin Ratio 0.5 L 09/19/22 05:50: POC Glucose 112 H Radiography Diagnostic Testing: Radiology Impression Abdomen/Pelvis CT 09/18/22 09:27 IMPRESSION: Large amount of fecal material is seen in the right hemicolon. There appears to be a transition point in the region of the splenic flexure where the descending colon and sigmoid colon are nondistended. Clinical correlation is recommended. Electronically Signed: Theo Perez MD at 11:38 EST , KUB X-Ray 09/18/22 12:20 IMPRESSION: The distal tip of the nasogastric tube is in the mid esophagus. Electronically Signed: Theo Perez MD at 13:14 EST , KUB X-Ray 09/18/22 12:55 IMPRESSION: The tip of nasogastric tube is coiled in the distal portion of the esophagus. Electronically Signed: Theo Perez MD at 13:13 EST , Physical Exam Const alert and oriented x3 General Appearance: cooperative HEENT normocephalic Neck supple Resp normal respiratory effort Effort and Inspection: able to speak in complete sentences GI GI Narrative: abdominal examination - unchanged Assessment & Plan Assessment/Plan (1) Abnormal CT scan, colon: PLAN: possible narrowing at splenic flexure - by clinical and radiological assessment - possible neoplasm versus ischemic stricture? will contact Dr. Friend, will defer to his evaluation for consideration of colonoscopy Discussed with patient and she acknowledges above. 09/19/22 1036 <Electronically signed by Anaid Steele MD> Cosigner Signature (if applicable): CC: ~ Signed [facility] Work Phone: 1(674) 758-880601-14-[address] Ellis [facility] September 19, 2022 8:31am Note Date/Time September 19, 2022 8 :31am [facility] Medical Records Department [address] [place] [address] Progress Note - Hospitalist 09/19/2225 MR#: [id number] Acct: [id number] Name: KRISTEN MANN Rep #:[id number] : 1950 72 From: Penny Ellis MD PCP: Dr. Olivier Acosta MD Status:A DM IN Location: [place] [id number] Subjective Subjective Pain is similar to yesterday however not vomiting and nausea has been better, still passing gas but has not had a bowel movement. NG tube unable to be placedx2 and currently does not have 1 but no significant nausea and lack of vomiting at this time Objective Data Objective Data Vital Signs: Vital Signs Temp Pulse Resp BP Pulse Ox O2 Del Method 97.6 F L 71 18 134/75 H 99 Room Air 09/19/22 03:00 09/19/22 03:00 09/19/22 03:00 09/19/22 03:00 09/19/22 03:00 09/19/22 03:00 Oxygen Delivery Method Room Air Weight: 85.332 kg Body Mass Index (BMI) 30.3 Intake & Output: Intake and Output for Last 24 Hours 09/17/22 09/18/22 09/19/22 23:59 23:59 23:59 Intake Total 985.00 / 985.00 Balance 985.00 / 985.00 Lab / Micro Data Result Diagrams: 09/19/22 05:43 09/19/22 05:43 Labs: Laboratory Results - last 24 hr 09/18/22 08:53: WBC 13.0 H, RBC 4.52, Hgb 12.5, Hct 39.2, MCV 86.7, MCH 27.7, MCHC 31.9 L, RDW Std Deviation 44.6 H, RDW Coeff of Yonathan 14.0, Plt Count 462 H, MPV 9.5, Immature Gran % (Auto) 1.000 H, Neut % (Auto) 71.3 H, Lymph % (Auto) 16.2 L, [place] % (Auto) 7.9, Eos % (Auto) 3.0, Baso % (Auto) 0.6, Absolute Neuts (auto) 9.3 H, Absolute Lymphs (auto) 2.10, Nucleated RBC % 0 09/18/22 08:53: Sodium 137, Potassium 4.5, Chloride 105, Carbon Dioxide 25.0, Anion Gap 7, BUN 16, Creatinine 1.17 H, Estim Creat Clear Calc 41.88, Est GFR (MDRD) Af Amer 59 L, Est GFR (MDRD) Non-Af 49 L, BUN/Creatinine Ratio 13.7, Glucose 222 H, Calcium 9.7, Total Bilirubin 0.30, AST 12 L, ALT 15, Alkaline Phosphatase 129 H, Total Protein 8.3 H, Albumin 2.9 L, Globulin 5.4 H, Albumin/Globulin Ratio 0.5 L, Lipase 145 09/18/22 09:40: Urine Color Yellow, Urine Clarity Sl. Cloudy, Urine pH 7.0, Ur Specific [place] 1.010, Urine Protein 15 H, Urine Glucose (UA) Normal, Urine Ketones Negative, Urine Occult Blood Negative, Urine Nitrite Negative, Urine Bilirubin Negative, Urine Urobilinogen Normal, Ur Leukocyte Esterase 500 H, Urine RBC 0 SEEN, Urine WBC 25-50 SEEN, Ur Squamous Epith Cells 0-5 SEEN, Urine Bacteria 0 SEEN, Urine Mucus 0 SEEN 09/18/22 16:40: POC Glucose 111 H 09/18/22 18:56: POC Glucose 85 09/18/22 21:01: POC Glucose 77 09/19/22 03:00: POC Glucose 75 09/19/22 05:43: WBC 11.0, RBC 4.43, Hgb 12.2, Hct 38.8, MCV 87.6, MCH 27.5, MCHC31.4 L, RDW Std Deviation 45.3 H, RDW Coeff of Yonathan 14.2, Plt Count 411, MPV 8.9,Immature Gran % (Auto) 1.000 H, Neut % (Auto) 66.6, Lymph % (Auto) 21.7, [place] % (Auto) 7.4, Eos % (Auto) 2.8, Baso % (Auto) 0.5, Absolute Neuts (auto) 7.3, Absolute Lymphs (auto) 2.40, Nucleated RBC % 0 09/19/22 05:43: Sodium 143, Potassium 3.8, Chloride 110 H, Carbon Dioxide 25.0, Anion Gap 8, BUN 16, Creatinine 1.08 H, Estim Creat Clear Calc 45.37, Est GFR (MDRD) Af Amer 64, Est GFR (MDRD) Non-Af 53 L, BUN/Creatinine Ratio 14.8, Glucose 107 H, Calcium 9.2, Total Bilirubin 0.30, AST 12 L, ALT 15, Alkaline Phosphatase 125 H, Total Protein 7.7, Albumin 2.7 L, Globulin 5.0 H, Albumin/Globulin Ratio 0.5 L 09/19/22 05:50: POC Glucose 112 H Radiography Diagnostic Testing: Radiology Impression Abdomen/Pelvis CT 09/18/22 09:27 IMPRESSION: Large amount of fecal material is seen in the right hemicolon. There appears to be a transition point in the region of the splenic flexure where the descending colon and sigmoid colon are nondistended. Clinical correlation is recommended. Electronically Signed: Theo Perez MD at 11:38 EST , KUB X-Ray 09/18/22 12:20 IMPRESSION: The distal tip of the nasogastric tube is in the mid esophagus. Electronically Signed: Theo Perez MD at 13:14 EST , KUB X-Ray 09/18/22 12:55 IMPRESSION: The tip of nasogastric tube is coiled in the distal portion of the esophagus. Electronically Signed: Theo Perez MD at 13:13 EST , Physical Exam Const alert Constitutional Narrative: Oriented, no acute distress HEENT normocephalic and head/scalp atraumatic Eyes Eyes Narrative: EOM grossly intact, anicteric Neck supple Resp normal respiratory effort and clear to auscultation bilaterally Cardio regular rate and regular rhythm GI GI Narrative: Soft to palpation, no significant tenderness, somewhat bloated. No rebound/guarding/rigidity Extremity Extremity Narrative: No edema appreciated Neuro moves all extremities Neuro Narrative: No overt focal deficits appreciated Psych Psych Narrative: Cooperative Assessment & Plan Assessment/Plan (1) Nausea: PLAN: Plan #Nausea/vomiting Had CT with contrast in the ED which showed a large amount of fecal material in the right hemicolon. There appeared on the scan to be a transition point in theregion of the splenic flexure where the descending colon and sigmoid colon were nondistended and clinical correlation advised Passing gas has not had a BM Nausea vomiting NG tube, surgery consult N.p.o. IV fluids Given n.p.o. medication regimen for pain limited as opioids may worsen constipation but will place this cautiously 09/19: On CT concern for narrowing of the splenic flexure. Could be neoplastic process versus stricture. Surgery following and plans to contact Dr. Warren today for possible colonoscopy. Unsuccessful NG placement x2 but actively vomiting and no significant nausea at this time though still not had a bowel movement #Type 2 diabetes mellitus Is on long-acting insulin but given n.p.o. we will do glucose checks and slidingscale insulin Despite holding long-acting has had some low glucose, will continue to hold long-acting especially as still n.p.o. and will de-escalate sliding scale from medium to low. #CKD stage IIIb Avoid nephrotoxic agents, trend BMP Fluids given npo status #HTN holding home meds given NPO #DVT ppx: SCDs Penny Ellis MD Charges/Coding Visit Charges Inpatient E&M: 48184 Subs Hosp L2 09/19/22 0831 <Electronically signed by Penny Ellis MD> Cosigner Signature (if applicable): CC: ~ Signed [facility] Work Phone: 1(470) 765-948801-13-[address] Steele [facility] September 18, 2022 7:20pm Note Date/Time September 18, 2022 5 :46pm [facility] Medical Records Department [address] [place] [address] Consultation - Surgical 09/18/22 1742 MR#: [id number] Acct: [id number] Name: KRISTEN MANN Rep #:[id number] : 1950 72 From: Anaid Steele MD PCP: Dr. Olivier Acosta MD Status:A DM IN Location: [facility] [place] MF987-8 Assessment & Plan Assessment/Plan (1) Abnormal CT scan, colon: PLAN: There is concern for narrowing at splenic flexure. This may represent a neoplastic process versus stricture possibly due to ischemia Will contact Dr. Warren in am for consideration of colonoscopy. Soap suds enemas tonight I have discussed above with patient and her sister. Continue present therapy. HPI Consult Data Date of Consult: 09/18/22 HPI Narrative HPI Narrative: KRISTEN MANN, is a 72 F who presents with abdominal pain and recently discharged for partial SBO. I was asked by the hospitalist, Dr. Penny Ellis, to evaluate patient in consultation. The patient was discharged on 09/14/2022 and she states that she was concerned that she was developing a bowel obstruction again. She last had a colonoscopy in 2012. She is noted to have large amount of retained stool in large colon with possible narrowing at splenic flexure. She denies blood in her stools. She does note increasing left flank pain for the past 3-4 weeks. She notes no colon cancer in her family. She notes crampy, gassy pain presently She had nausea/emesis this morning. Patient does note a long history of chronic constipation. [facility] Medical History Abnormal CT scan, colon Asthma Carotid stenosis, bilateral Chronic pain Depression Diabetes GERD (gastroesophageal reflux disease) HLD (hyperlipidemia) HTN (hypertension) Non-smoker Pacemaker Pancreatitis Sleep apnea TIA (transient ischemic attack) Home Medications ezetimibe 10 mg tablet (Zetia) 10 mg PO DAILY . 05/31/19 [History Last Taken 09/17/22] D-Mannrose 1,000 mg PO BID UTI 08/03/22 [History Last Taken 09/17/22] ascorbate calcium (vitamin C) 500 mg tablet 500 mg PO DAILY SUPPLEMENT 08/03/22 [History Last Taken 09/17/22] probiotic 1 tab PO DAILY SUPPLEMENT 08/03/22 [History Last Taken 09/17/22] esomeprazole magnesium 40 mg capsule,delayed release 40 cap PO DAILY . 08/06/22 [History Last Taken 09/17/22] metoprolol succinate 25 mg tablet,extended release 24 hr 25 mg PO QHS BLOOD PRESSURE 08/06/22 [History Last Taken 09/17/22] venlafaxine 150 mg capsule,extended release 24 hr 150 cap PO DAILY DEPRESSION 08/06/22 [History Last Taken 09/17/22] cholecalciferol (vitamin D3) 50 mcg (2,000 unit) capsule (Vitamin D3) 2,000 unitPO DAILY SUPPLEMENT 08/31/22 [History Last Taken 09/17/22] estradiol 0.01% (0.1 mg/gram) vaginal cream 1 applic vaginal MOWEFR HORMONE 08/31/22 [History Last Taken 09/16/22] insulin lispro 100 unit/mL subcutaneous pen (Humalog KwikPen (U-100) Insulin) 22unit subcut TIDAC Check with primary doctor 09/12/22 [History Last Taken 09/17/22] nitrofurantoin monohydrate/macrocrystals 100 mg capsule 100 mg PO BID UTI 09/13/22 [History Last Taken 09/17/22] insulin glargine-yfgn 100 unit/mL (3 mL) subcutaneous pen 40 unit subcut DAILY DM 09/18/22 [History Last Taken 09/18/22] trimethoprim 100 mg tablet 100 mg PO DAILY UTI 09/18/22 [History Last Taken Unknown] Allergy/AdvReac Type Severity Reaction Status Date / Time morphine Allergy Mild Rash Verified 09/18/22 08:39 Penicillins Allergy Mild Rash Verified 09/18/22 08:39 Sulfa (Sulfonamide Allergy Mild Rash Verified 09/18/22 08:39 Antibiotics) Family History Mother Hypertension Father Asthma Depression Diabetes High cholesterol Hypertension Other Arthritis Autoimmune disorder Breast cancer Cancer Kidney disease Surgical History H/O section H/O: hysterectomy History of appendectomy History of cholecystectomy Hx laparoscopic cholecystectomy Social History household members: none Smoking Status: Never smoker alcohol intake: never substance use type: does not use what type of physical activity do you participate in: none ROS Constitutional Constitutional: Reports fatigue; Denies fever(s) Eyes Eyes: Denies loss of vision ENT HEENT: Denies epistaxis Cardiovascular Cardiovascular: Denies chest pain at rest Respiratory/Chest Respiratory/Chest: Denies productive cough or shortness of breath at rest Gastrointestinal Gastrointestinal: Reports systems reviewed and no addt'l complaints, except as documented Genitourinary Genitourinary: Denies hematuria Musculoskeletal Musculoskeletal: Denies abnormal gait Integumentary Integumentary: Denies jaundice Neurologic Neurologic: Denies abnormal gait Endocrine Endocrinology: Denies heat intolerance Hematologic/Lymphatic Hematologic/Lymphatic: Denies easy bleeding Physical Exam Const alert and oriented x3 General Appearance: cooperative HEENT normocephalic Eyes conjunctivae normal Neck supple Resp normal respiratory effort Effort and Inspection: able to speak in complete sentences Cardio Rate: regular rate GI GI Narrative: abdomen is soft and obese mild generalized tenderness but no peritoneal signs Back/Spine Back/Spine Narrative: patient points to back pain - left flank Extremity no calf tenderness Skin no jaundice Medical Records Data Attestation: I reviewed the patient's medical records Lab / Micro Data Attestation: I reviewed the patient's lab results. Result Diagrams: 09/18/22 08:53 09/18/22 08:53 Labs: Laboratory Results - last 24 hr 09/18/22 08:53: WBC 13.0 H, RBC 4.52, Hgb 12.5, Hct 39.2, MCV 86.7, MCH 27.7, MCHC 31.9 L, RDW Std Deviation 44.6 H, RDW Coeff of Yonathan 14.0, Plt Count 462 H, MPV 9.5, Immature Gran % (Auto) 1.000 H, Neut % (Auto) 71.3 H, Lymph % (Auto) 16.2 L, [place] % (Auto) 7.9, Eos % (Auto) 3.0, Baso % (Auto) 0.6, Absolute Neuts (auto) 9.3 H, Absolute Lymphs (auto) 2.10, Nucleated RBC % 0 09/18/22 08:53: Sodium 137, Potassium 4.5, Chloride 105, Carbon Dioxide 25.0, Anion Gap 7, BUN 16, Creatinine 1.17 H, Estim Creat Clear Calc 41.88, Est GFR (MDRD) Af Amer 59 L, Est GFR (MDRD) Non-Af 49 L, BUN/Creatinine Ratio 13.7, Glucose 222 H, Calcium 9.7, Total Bilirubin 0.30, AST 12 L, ALT 15, Alkaline Phosphatase 129 H, Total Protein 8.3 H, Albumin 2.9 L, Globulin 5.4 H, Albumin/Globulin Ratio 0.5 L, Lipase 145 09/18/22 09:40: Urine Color Yellow, Urine Clarity Sl. Cloudy, Urine pH 7.0, Ur Specific [place] 1.010, Urine Protein 15 H, Urine Glucose (UA) Normal, Urine Ketones Negative, Urine Occult Blood Negative, Urine Nitrite Negative, Urine Bilirubin Negative, Urine Urobilinogen Normal, Ur Leukocyte Esterase 500 H, Urine RBC 0 SEEN, Urine WBC 25-50 SEEN, Ur Squamous Epith Cells 0-5 SEEN, Urine Bacteria 0 SEEN, Urine Mucus 0 SEEN Radiology Impression Abdomen/Pelvis CT 09/18/22 09:27 IMPRESSION: Large amount of fecal material is seen in the right hemicolon. There appears to be a transition point in the region of the splenic flexure where the descending colon and sigmoid colon are nondistended. Clinical correlation is recommended. Electronically Signed: Theo Perez MD at 11:38 EST , KUB X-Ray 09/18/22 12:20 IMPRESSION: The distal tip of the nasogastric tube is in the mid esophagus. Electronically Signed: Theo Perez MD at 13:14 EST , KUB X-Ray 09/18/22 12:55 IMPRESSION: The tip of nasogastric tube is coiled in the distal portion of the esophagus. Electronically Signed: Theo Perez MD at 13:13 EST , 09/18/22 192 <Electronically signed by Anaid Steele MD> Cosigner Signature (if applicable): CC: Dr. Anaid Steele MD; Dr. Olivier Acosta MD~ Signed [facility] Work Phone: 1(431) 276-899701-13-[address] Meyers [facility] September 18, 2022 1:53pm Note Date/Time September 18, 2022 9 :32am [facility] Medical Records Department [address] [place] [address] Emergency Department Summary 09/18/22 MR#: [id number] Acct: [id number] Name: KRISTEN MANN Rep #:[id number] : 1950 72 From: Devyn Meyers DO PCP: Dr. Olivier Acosta MD Status:A DM IN Location: MS2 [id number] HPI HPI - GI History of Present Illness Chief Complaint: Back Narrative Narrative: 9-year-old female presenting with diffuse abdominal pain. She states she has a history of appendectomy, cholecystectomy, . She recently had a partialsmall bowel obstruction and was admitted to the hospital. She also reports recent history of UTI. Patient states that while she was in the hospital she was receiving soapsuds enemas and was able to have bowel movements. Since she has been home she has been taking lactulose, MiraLAX, stool softeners and has not been able to have a bowel movement. She reports that her pain is increasing. She describes it as diffuse. She has been able to hold down some soups and some fluids but started vomiting. She is concerned she has an obstruction. No fevers. [facility] Medical History Asthma Carotid stenosis, bilateral Chronic pain Depression Diabetes GERD (gastroesophageal reflux disease) HLD (hyperlipidemia) HTN (hypertension) Non-smoker Pacemaker Pancreatitis Sleep apnea TIA (transient ischemic attack) Home Medications ezetimibe 10 mg tablet (Zetia) 10 mg PO DAILY . 05/31/19 [History Last Taken 09/17/22] D-Mannrose 1,000 mg PO BID UTI 08/03/22 [History Last Taken 09/17/22] ascorbate calcium (vitamin C) 500 mg tablet 500 mg PO DAILY SUPPLEMENT 08/03/22 [History Last Taken 09/17/22] probiotic 1 tab PO DAILY SUPPLEMENT 08/03/22 [History Last Taken 09/17/22] esomeprazole magnesium 40 mg capsule,delayed release 40 cap PO DAILY . 08/06/22 [History Last Taken 09/17/22] metoprolol succinate 25 mg tablet,extended release 24 hr 25 mg PO QHS BLOOD PRESSURE 08/06/22 [History Last Taken 09/17/22] venlafaxine 150 mg capsule,extended release 24 hr 150 cap PO DAILY DEPRESSION 08/06/22 [History Last Taken 09/17/22] cholecalciferol (vitamin D3) 50 mcg (2,000 unit) capsule (Vitamin D3) 2,000 unitPO DAILY SUPPLEMENT 08/31/22 [History Last Taken 09/17/22] estradiol 0.01% (0.1 mg/gram) vaginal cream 1 applic vaginal MOWEFR HORMONE 08/31/22 [History Last Taken 09/16/22] insulin lispro 100 unit/mL subcutaneous pen (Humalog KwikPen (U-100) Insulin) 22unit subcut TIDAC Check with primary doctor 09/12/22 [History Last Taken 09/17/22] nitrofurantoin monohydrate/macrocrystals 100 mg capsule 100 mg PO BID UTI 09/13/22 [History Last Taken 09/17/22] insulin glargine-yfgn 100 unit/mL (3 mL) subcutaneous pen 40 unit subcut DAILY DM 09/18/22 [History Last Taken 09/18/22] trimethoprim 100 mg tablet 100 mg PO DAILY UTI 09/18/22 [History Last Taken Unknown] Allergy/AdvReac Type Severity Reaction Status Date / Time morphine Allergy Mild Rash Verified 09/18/22 08:39 Penicillins Allergy Mild Rash Verified 09/18/22 08:39 Sulfa (Sulfonamide Allergy Mild Rash Verified 09/18/22 08:39 Antibiotics) Family History Mother Hypertension Father Asthma Depression Diabetes High cholesterol Hypertension Other Arthritis Autoimmune disorder Breast cancer Cancer Kidney disease Surgical History H/O section H/O: hysterectomy History of appendectomy History of cholecystectomy Hx laparoscopic cholecystectomy Social History household members: none Smoking Status: Never smoker alcohol intake: never substance use type: does not use what type of physical activity do you participate in: none ROS ROS ED Constitutional Constitutional ED: Denies chills, fever(s) or sweats Eyes Eyes: Denies blurry vision or change in vision ENT ENT ED: Denies ear pain or sore throat Cardiovascular Cardiovascular: Denies chest pain, palpitations or racing heartbeat Respiratory/Chest Respiratory/Chest: Denies cough, dyspnea or sputum Gastrointestinal Gastrointestinal: Reports abdominal pain, constipation, nausea and vomiting; Denies diarrhea Genitourinary Genitourinary ED: Denies dysuria, hematuria or urinary frequency Musculoskeletal Musculoskeletal: Denies arthralgias, myalgias or neck pain Integumentary Denies abscess, Abrasions or rash Neurologic Neurologic: Denies headache(s), paresthesias or weakness Psychiatric Psychiatric: Denies anxiety, depression, suicidal ideation or suicidal thoughts Endocrine Endocrinology: Denies polydipsia or polyuria EXAM Physical Exam Const Vital Signs: 09/18/22 08:39 09/18/22 12:50 09/18/22 12:51 Temperature 96.8 F L 98 F Temperature Source Temporal Temporal Pulse Rate 81 87 87 Respiratory Rate 17 14 14 Blood Pressure 124/74 H 149/92 H 149/92 H Blood Pressure Mean 90 111 111 Pulse Ox 100 98 98 Oxygen Delivery Method Room Air Room Air Room Air Positive well nourished General Appearance ED: NAD; Negative for pallor HEENT Reports moist mucous membranes atraumatic Eyes PERRL and EOMs intact bilaterally General Eye ED: Negative for pale conjunctiva or scleral icterus Neck no lymphadenopathy Resp normal respiratory effort and clear to auscultation bilaterally Effort and Inspection: respiratory distress Auscultation: Negative for rales, rhonchi or wheezes Cardio regular rate and regular rhythm GI GI Narrative: Diffusely tender to palpation. Back/Spine no CVA tenderness Extremity full ROM General Extremety ED: Negative for edema or tenderness General Extremity: Negative for edema Neuro CN's II-XII intact bilaterally, moves all extremities and no sensory deficits noted Sensorium / Orientation: alert Psych mental status grossly normal and thought process normal Skin General Skin Exam: Negative for jaundice or pallor MDM MDM MDM Narrative Medical decision making narrative: Patient presenting with diffuse abdominal pain and constipation. She has a recent history of partial small bowel obstruction. She states he was able to pass stool while she was in the hospital with enemas but is no longer able to have bowel movements for the last few days. Patient states that she has been using MiraLAX, Dulcolax, lactulose without relief. She has not tried an enema. She did call Dr. Tipton as she was post to follow-up with him and she was referred to the emergency room. Patient with previous urinalysis showing UTI wewill obtain a UA to make sure this is resolving. Patient placed had a white blood cell count of 14.8 and I will get another CBC with differential to compare. Liver function and electrolytes to rule out renal or hepatic issues. Patient was medicated with Toradol and Zofran, after discussing with her that narcotics might worsen the problem if it shows constipation patient was amenableto this. CT of the abdomen pelvis with p.o. and IV contrast will be obtained. Blood work shows improvement in white blood cell count down to 13. Hemoglobin hematocrit are stable her platelets are normal. Renal function is actually improved as well. Electrolytes are normal. LFTs unremarkable. CT of the abdomen pelvis shows concern for partial small bowel obstruction. I spoke with Dr. Steele who recommended NG tube placement. This was attempted twice. On KUB on my interpretation both attempts show the tip of the NG tube not in place. Nursing staff reports to me that they are unable to get this into place. I did discuss with Dr. Steele and made her aware. Impression: 1. Partial small bowel obstruction 2. Abdominal pain With 3 history of urinary tract infection Lab Data Labs: Laboratory Results - last 24 hr 09/18/22 09/18/22 09/18/22 08:53 08:53 09:40 WBC 13.0 H RBC 4.52 Hgb 12.5 Hct 39.2 MCV 86.7 MCH 27.7 MCHC 31.9 L RDW Std Deviation 44.6 H RDW Coeff of Yonathan 14.0 Plt Count 462 H MPV 9.5 Immature Gran % (Auto) 1.000 H Neut % (Auto) 71.3 H Lymph % (Auto) 16.2 L [place] % (Auto) 7.9 Eos % (Auto) 3.0 Baso % (Auto) 0.6 Absolute Neuts (auto) 9.3 H Absolute Lymphs (auto) 2.10 Nucleated RBC % 0 Sodium 137 Potassium 4.5 Chloride 105 Carbon Dioxide 25.0 Anion Gap 7 BUN 16 Creatinine 1.17 H Estim Creat Clear Calc 41.88 Est GFR (MDRD) Af Amer 59 L Est GFR (MDRD) Non-Af 49 L BUN/Creatinine Ratio 13.7 Glucose 222 H Calcium 9.7 Total Bilirubin 0.30 AST 12 L ALT 15 Alkaline Phosphatase 129 H Total Protein 8.3 H Albumin 2.9 L Globulin 5.4 H Albumin/Globulin Ratio 0.5 L Lipase 145 Urine Color Yellow Urine Clarity Sl. Cloudy Urine pH 7.0 Ur Specific [place] 1.010 Urine Protein 15 H Urine Glucose (UA) Normal Urine Ketones Negative Urine Occult Blood Negative Urine Nitrite Negative Urine Bilirubin Negative Urine Urobilinogen Normal Ur Leukocyte Esterase 500 H Urine RBC 0 SEEN Urine WBC 25-50 SEEN Ur Squamous Epith Cells 0-5 SEEN Urine Bacteria 0 SEEN Urine Mucus 0 SEEN Radiography Diagnostic Testing: Clinical Impression(s) from Imaging Studies Abdomen/Pelvis CT 09/18/22 09:27 IMPRESSION: Large amount of fecal material is seen in the right hemicolon. There appears to be a transition point in the region of the splenic flexure where the descending colon and sigmoid colon are nondistended. Clinical correlation is recommended. Electronically Signed: Theo Perez MD at 11:38 EST , KUB X-Ray 09/18/22 12:20 IMPRESSION: The distal tip of the nasogastric tube is in the mid esophagus. Electronically Signed: Theo Perez MD at 13:14 EST Reading Location ID and State: [address] [place] [address] , Service support , Discharge Plan Triage Chief Complaint: Back ED Provider: Devyn Meyers Dx/Rx/DC Orders Primary Care Provider: Olivier Acosta What to do if you have Problems For any increased pain, shortness of breath, bleeding, nausea or vomiting, chestpain, or any unexpected problems, contact your Primary Care Provider. Call [facility] ([phone]) or report to the closest Emergency Room. Call 911 if necessary. 09/18/22 1353 <Electronically signed by Devyn Meyers DO> Cosigner Signature (if applicable): CC: Dr. Olivier Acosta MD ~ Signed [facility] Work Phone: 1(719) 849-347201-13-2023 History and physical note Author Dr. Ellis [facility] September 18, 2022 1:51pm Note Date/Time September 18, 2022 1 :45pm [facility] Medical Records Department [address] [place] [address] H&P Exam - Hospitalist 09/18/22 1336 MR#: [id number] Acct: [id number] Name: KRISTEN MANN Rep #:[id number] : 1950 72 From: Penny Ellis MD PCP: Dr. Olivier Acosta MD Status:A DM IN Location: MS2 [id number] HPI - General General Date of Admission: 09/18/22 Date of Service: 09/18/22 Chief Complaint: Back pain, nausea HPI Narrative KRISTEN MANN, is a 72-year-old female with a history of type 2 diabetes mellitus, bilateral carotid stenosis, CKD stage III unclear subtype, hypertension who presented 09/18/2022 with back pain worsened for several days and nausea and vomiting today. She was recently discharged from the hospital 09/14/2022 when she presented with similar complaints and was treated conservatively. She was given enemas and lactulose and was having bowel movements but since she has gone home she has not had a bowel movement though reports urinating fine. He has had feelings of being bloated as well. Feels most of her discomfort in her lower back. Denies other complaints today aside from slight headache. [facility] Medical History Asthma Carotid stenosis, bilateral Chronic pain Depression Diabetes GERD (gastroesophageal reflux disease) HLD (hyperlipidemia) HTN (hypertension) Non-smoker Pacemaker Pancreatitis Sleep apnea TIA (transient ischemic attack) Home Medications ezetimibe 10 mg tablet (Zetia) 10 mg PO DAILY . 05/31/19 [History Last Taken 09/17/22] D-Mannrose 1,000 mg PO BID UTI 08/03/22 [History Last Taken 09/17/22] ascorbate calcium (vitamin C) 500 mg tablet 500 mg PO DAILY SUPPLEMENT 08/03/22 [History Last Taken 09/17/22] probiotic 1 tab PO DAILY SUPPLEMENT 08/03/22 [History Last Taken 09/17/22] esomeprazole magnesium 40 mg capsule,delayed release 40 cap PO DAILY . 08/06/22 [History Last Taken 09/17/22] metoprolol succinate 25 mg tablet,extended release 24 hr 25 mg PO QHS BLOOD PRESSURE 08/06/22 [History Last Taken 09/17/22] venlafaxine 150 mg capsule,extended release 24 hr 150 cap PO DAILY DEPRESSION 08/06/22 [History Last Taken 09/17/22] cholecalciferol (vitamin D3) 50 mcg (2,000 unit) capsule (Vitamin D3) 2,000 unitPO DAILY SUPPLEMENT 08/31/22 [History Last Taken 09/17/22] estradiol 0.01% (0.1 mg/gram) vaginal cream 1 applic vaginal MOWEFR HORMONE 08/31/22 [History Last Taken 09/16/22] insulin lispro 100 unit/mL subcutaneous pen (Humalog KwikPen (U-100) Insulin) 22unit subcut TIDAC Check with primary doctor 09/12/22 [History Last Taken 09/17/22] nitrofurantoin monohydrate/macrocrystals 100 mg capsule 100 mg PO BID UTI 09/13/22 [History Last Taken 09/17/22] insulin glargine-yfgn 100 unit/mL (3 mL) subcutaneous pen 40 unit subcut DAILY DM 09/18/22 [History Last Taken 09/18/22] trimethoprim 100 mg tablet 100 mg PO DAILY UTI 09/18/22 [History Last Taken Unknown] Allergy/AdvReac Type Severity Reaction Status Date / Time morphine Allergy Mild Rash Verified 09/18/22 08:39 Penicillins Allergy Mild Rash Verified 09/18/22 08:39 Sulfa (Sulfonamide Allergy Mild Rash Verified 09/18/22 08:39 Antibiotics) Family History Mother Hypertension Father Asthma Depression Diabetes High cholesterol Hypertension Other Arthritis Autoimmune disorder Breast cancer Cancer Kidney disease Surgical History H/O section H/O: hysterectomy History of appendectomy History of cholecystectomy Hx laparoscopic cholecystectomy Social History household members: none Smoking Status: Never smoker alcohol intake: never substance use type: does not use what type of physical activity do you participate in: none ROS Constitutional Constitutional: Denies change in weight, fever(s) or night sweats Eyes Eyes: Denies change in vision ENT HEENT: Reports headache(s); Denies nasal congestion or sore throat Cardiovascular Cardiovascular: Denies chest pain or palpitations Respiratory/Chest Respiratory/Chest: Denies cough or productive cough Gastrointestinal Gastrointestinal: Reports other Details: No bowel movement since 09/14, nausea today with some emesis Genitourinary Genitourinary: Reports other Details: denies changes in urination Musculoskeletal Musculoskeletal: Denies joint pain Neurologic Neurologic: Denies dizziness, focal weakness, numbness or tingling Psychiatric Psychiatric: Denies anxiety Hematologic/Lymphatic Hematologic/Lymphatic: Denies easy bleeding Allergic/Immunologic Allergic/Immunologic: Reports other Details: denies rashes Vital Signs Vital Signs Vital Signs: 09/18/22 08:39 09/18/22 12:50 09/18/22 12:51 Temperature 96.8 F L 98 F Temperature Source Temporal Temporal Pulse Rate 81 87 87 Respiratory Rate 17 14 14 Blood Pressure 124/74 H 149/92 H 149/92 H Blood Pressure Mean 90 111 111 Pulse Ox 100 98 98 Oxygen Delivery Method Room Air Room Air Room Air Weight Weight: 87.543 kg Body Mass Index (BMI) 31.1 Physical Exam Const alert Constitutional Narrative: Oriented, appears somewhat uncomfortable HEENT normocephalic and head/scalp atraumatic Eyes Eyes Narrative: EOM grossly intact, anicteric Neck supple Resp normal respiratory effort and clear to auscultation bilaterally Cardio regular rate and regular rhythm GI GI Narrative: Soft to palpation, no significant tenderness, somewhat bloated, referred pain toher back. No rebound/guarding/rigidity Extremity Extremity Narrative: No edema appreciated Neuro moves all extremities Neuro Narrative: No overt focal deficits appreciated Psych Psych Narrative: Cooperative, tearful at times Results Lab / Micro Data Result Diagrams: 09/18/22 08:53 09/18/22 08:53 Labs: Laboratory Results - last 24 hr 09/18/22 08:53: WBC 13.0 H, RBC 4.52, Hgb 12.5, Hct 39.2, MCV 86.7, MCH 27.7, MCHC 31.9 L, RDW Std Deviation 44.6 H, RDW Coeff of Yonathan 14.0, Plt Count 462 H, MPV 9.5, Immature Gran % (Auto) 1.000 H, Neut % (Auto) 71.3 H, Lymph % (Auto) 16.2 L, [place] % (Auto) 7.9, Eos % (Auto) 3.0, Baso % (Auto) 0.6, Absolute Neuts (auto) 9.3 H, Absolute Lymphs (auto) 2.10, Nucleated RBC % 0 09/18/22 08:53: Sodium 137, Potassium 4.5, Chloride 105, Carbon Dioxide 25.0, Anion Gap 7, BUN 16, Creatinine 1.17 H, Estim Creat Clear Calc 41.88, Est GFR (MDRD) Af Amer 59 L, Est GFR (MDRD) Non-Af 49 L, BUN/Creatinine Ratio 13.7, Glucose 222 H, Calcium 9.7, Total Bilirubin 0.30, AST 12 L, ALT 15, Alkaline Phosphatase 129 H, Total Protein 8.3 H, Albumin 2.9 L, Globulin 5.4 H, Albumin/Globulin Ratio 0.5 L, Lipase 145 09/18/22 09:40: Urine Color Yellow, Urine Clarity Sl. Cloudy, Urine pH 7.0, Ur Specific [place] 1.010, Urine Protein 15 H, Urine Glucose (UA) Normal, Urine Ketones Negative, Urine Occult Blood Negative, Urine Nitrite Negative, Urine Bilirubin Negative, Urine Urobilinogen Normal, Ur Leukocyte Esterase 500 H, Urine RBC 0 SEEN, Urine WBC 25-50 SEEN, Ur Squamous Epith Cells 0-5 SEEN, Urine Bacteria 0 SEEN, Urine Mucus 0 SEEN Radiology Impression Abdomen/Pelvis CT 09/18/22 09:27 IMPRESSION: Large amount of fecal material is seen in the right hemicolon. There appears to be a transition point in the region of the splenic flexure where the descending colon and sigmoid colon are nondistended. Clinical correlation is recommended. Electronically Signed: Theo Perez MD at 11:38 EST , KUB X-Ray 09/18/22 12:20 IMPRESSION: The distal tip of the nasogastric tube is in the mid esophagus. Electronically Signed: Theo Perez MD at 13:14 EST , KUB X-Ray 09/18/22 12:55 IMPRESSION: The tip of nasogastric tube is coiled in the distal portion of the esophagus. Electronically Signed: hTeo Perez MD at 13:13 EST , Assessment & Plan Assessment/Plan (1) Nausea: PLAN: Plan #Nausea/vomiting Had CT with contrast in the ED which showed a large amount of fecal material in the right hemicolon. There appeared on the scan to be a transition point in theregion of the splenic flexure where the descending colon and sigmoid colon were nondistended and clinical correlation advised Passing gas has not had a BM Nausea vomiting NG tube, surgery consult N.p.o. IV fluids Given n.p.o. medication regimen for pain limited as opioids may worsen constipation but will place this cautiously #Type 2 diabetes mellitus Is on long-acting insulin but given n.p.o. we will do glucose checks and slidingscale insulin #CKD stage IIIb Avoid nephrotoxic agents, trend BMP Fluids given npo status #HTN holding home meds given NPO #DVT ppx: SCDs Penny Ellis MD Charges/Coding Visit Charges Inpatient E&M: 14100 Init Hosp L2 09/18/22 1351 <Electronically signed by Penny Ellis MD> Cosigner Signature (if applicable): CC: Dr. Penny Ellis MD; Dr. Olivier Acosta MD~ Signed [facility] Work Phone: [phone]) 524-911112-15-2022 Evaluation + Plan note* Assessment & Plan Note - Cecilia Campos MD - 08/20/2022 9:52 AM ESTAssociated Problem(s): Pacemaker Most of the pain she had post pacemaker placement now has resolved since she had a revision. I do not think we need to make any additional changes. She will follow-up in August next year at [facility] for her routine in office checks. I told her we would have her see general cardiology here in [facility], she can then stagger her visits. She knows she can contact us if she does have any symptomatic changes. [id number] Evaluation + Plan note* Assessment & Plan Note - Cecilia Campos MD - 08/20/2022 9:52 AM ESTAssociated Problem(s): Tachycardia She apparently was at her pillar worker in [place] recently and was having some tachycardia though she was asymptomatic. During her exam today her rhythm was regular. We will continue to monitor for recurrences on her device checks. She knows she can call us if she has any symptomatic issues. Sheis on metoprolol 25 mg daily and potentially this could be advanced if needed. [place] [id number] Miscellaneous Notes* Assessment & Plan Note - Cecilia Campos MD - 08/20/2022 9:52 AM ESTAssociated Problem(s): Pacemaker Most of the pain she had post pacemaker placement now has resolved since she had a revision. I do not think we need to make any additional changes. She will follow-up in August next year at [facility] for her routine in office checks. I told her we would have her see general cardiology here in [facility], she can then stagger her visits. She knows she can contact us if she does have any symptomatic changes. * Assessment & Plan Note - Cecilia Campos MD - 08/20/2022 9:52 AM EST Associated Problem(s): Tachycardia She apparently was at her pillar worker in [place] recently and was having some tachycardia though she was asymptomatic. During her exam today her rhythm was regular. We will continue to monitor for recurrences on her device checks. She knows she can call us if she has any symptomatic issues. Sheis on metoprolol 25 mg daily and potentially this could be advanced if needed. documented in this [id number] History of Present illness Narrative* Cecilia Campos MD - 08/20/2022 9:41 AM EST General Cardiology Clinic Follow-up Heart & Vascular [facility] 08/20/2022 Cecilia Campos MD [address] [place] [address] Medical Office [facility] [id number] Patient: Kristen Mann Date of : 1950 (72 y.o.) PCP: Olivier Acosta MD Assessment & Plan Tachycardia She apparently was at her pillar worker in [place] recently and was having some tachycardia though she was asymptomatic. During her exam today her rhythm was regular. We will continue to monitor for recurrences on her device checks. She knows she can call us if she has any symptomatic issues. Sheis on metoprolol 25 mg daily and potentially this could be advanced if needed. Pacemaker Most of the pain she had post pacemaker placement now has resolved since she had a revision. I do not think we need to make any additional changes. She will follow-up in August next year at [facility] for her routine in office checks. I told her we would have her see general cardiology here in [facility], she can then stagger her visits. She knows she can contact us if she does have any symptomatic changes. Follow-up: Return in about 7 months (around 03/20/2023). Subjective History of Present Illness: Kristen Mann is a 72 y.o. female This is a 72-year-old. We have been following her with our EP group for a number of different issues, she has had evidence of heart block as well as episodes of atrial tachycardia. I saw her in February this year. She was originally evaluated several years ago with ongoing problems related to tachycardia. She underwent an exercise myocardial perfusion study in 2018 which was normal. She had a n echo completed in June 2020 that showed no significant valvular disease EF is 66%. She ultimately had a pacemaker placed here but had a number of issues post procedure and including pain at the site. When I saw her in February she wanted to go to [facility] to get this addressed. She was admitted to [facility] for RV lead revision in May. That was done on May 08. Medical history is otherwise notable for type 2 diabetes, history of previous stroke. She saw EP in [facility] for follow-upin August. Noted on her device check she had short episodes of nonsustained VT or possibly eitheratrial tach or one-to-one SVT or flutter. It apparently occurred in June when she was having issues related to UTI. They recommended a follow-up in a year. She seemed to be doing well otherwise atthat time. Objective Tobacco Use Smoking Status Never Smokeless Tobacco Never EKG 12-lead Final Result by Bobby Tan MD (05/07/2022 1836) Echocardiogram limited with contrast Final Result by Jaguar Forbes DO (05/08/2022 0908) Echocardiogram limited Final Result by Patricia Dowling MD (12/23/2021 1502) Echocardiogram complete w contrast Final Result by Patricia Dowling MD (11/21/2021 1405) Echocardiogram complete Final Result by Marcia Barrientos MD (02/09/2018 1023) Transesophageal Echocardiogram Final Result by Axel Soares MD (10/16/2015 0929) HOME Medications: Patient's Medications New Prescriptions No medications on file Previous Medications ALBUTEROL 90 MCG/ACTUATION INHALER Inhale 2 (two) puffs every 6 (six) hours as needed for wheezing . ASCORBIC ACID, VITAMIN C, (VITAMIN C) 100 MG TABLET Take 1 (one) tablet (100 mg total) by mouth daily . CETIRIZINE-PSEUDOEPHEDRINE (ZYRTEC-D) 5-120 MG PER TABLET Take 1 (one) tablet by mouth daily . CHOLECALCIFEROL, VITAMIN D3, 50 MCG (2,000 UNIT) TAB Take 1 (one) tablet (2,000 Units total) by mouth nightly . ESOMEPRAZOLE (NEXIUM) 40 MG CAPSULE Take 1 (one) capsule (40 mg total) by mouth daily . EZETIMIBE (ZETIA) 10 MG TABLET Take 1 (one) tablet (10 mg total) by mouth daily . INSULIN GLARGINE (LANTUS) 100 UNIT/ML INJECTION Inject 35 (thirty five) Units under the skin daily . INSULIN LISPRO (ADMELOG,HUMALOG) 100 UNIT/ML INJECTION Inject 8 (eight) Units under the skin 3 (three) times a day before meals Plus sliding scale: 151-200 = 7, 201-250 = 20, above 250 = 25 . METOPROLOL SUCCINATE (TOPROL-XL) 25 MG 24 HR TABLET Take 1 (one) tablet (25 mg total) by mouth nightly . NITROFURANTOIN, MACROCRYSTAL-MONOHYDRATE, (MACROBID) 100 MG CAPSULE Take 1 (one) capsule (100 mg total) by mouth 2 (two) times a day . TRAMADOL (ULTRAM) 50 MG TABLET Take 0.5 (one-half) tablet (25 mg total) by mouth every 4 (four) hours as needed for pain . TRIMETHOPRIM (TRIMPEX) 100 MG TABLET Take 1 (one) tablet (100 mg total) by mouth nightly . Modified Medications No medications on file Discontinued Medications No medications on file Vital Signs: BP 126/70 (BP Location: Left arm, Patient Position: Sitting, BP Cuff Size: Adult) Pulse 91 Ht 5' 5" Wt 87.9 kg (193 lb 12.8 oz) SpO2 98% BMI 32.25 kg/m Physical Exam Vitals reviewed. Cardiovascular: Rate and Rhythm: Normal rate and regular rhythm. Heart sounds: Normal heart sounds. Pulmonary: Breath sounds: Normal breath sounds. Abdominal: Palpations: Abdomen is soft. Skin: General: Skin is warm. Neurological: General: No focal deficit present. Mental Status: She is alert. Psychiatric: Mood and Affect: Mood normal. documented in this [id number] Instructions* Patient Instructions* Natalia West MA - 08/20/2022 9:32 AM EST You can reach Dr Campos's nurse Juliana Paredes RN, at [phone]. If unable to reach us please leave a detailed voicemail message. We regularly check our messages when we are in clinic and will return your call in 24 hours. REFILLS: When in need for refills please call the above number. Please relay your name, date and phonenumber. We request that you include medication name, dose, pharmacy name and location of pharmacy in your message. Be sure to specify 30-day or 90-day supply requested. Please check with your pharmacy within 24-48 hours of request for your refill. You must follow up as directed to continue current refills. FOLLOW UP VISIT: Regarding your follow up office visit: The return date listed below is an approximate date of when your next office visit will be. We will call you a month before that date to schedule your office visit. If you have not heard from us by the date listed below please call the office at [phone] and ask to speak to the schedulers to make an appointment. *If you made an -appointment prior to leaving the office today disregard this message. To cancel or reschedule your office visit or testing please call [phone]. If you need to cancel it must be 24 hours prior to that appt. Thank you. ....If you were seen in the [place] office today. If any testing was ordered a ice cream van vendor from [facility] will call you to schedule your testing. If you do not hear from a ice cream van vendor after a couple of days please call the office at [phone] and ask to speak to a ice cream van vendor. documented in this [id number] History of Present illness Narrative* Radha Hubbard DO - 08/14/2022 2:25 PM EST Electrophysiology Clinic Follow-up Heart & Vascular [facility] 08/13/2022 Radha Hubbard, [address] [facility] [address] Patient: Kristen Mann Date of : 1950 (72 y.o.) PCP: Olivier Acosta MD Assessment & Plan 1) AV block/Sinus Node Dysfunction S/P [employer] Dual Chamber pacemaker implantation back in 12/2021 with RV lead revision 05/2022 due to lead migration loss of capture and bothersome symptoms. - Successful revision with 9 years of battery life, appropriate lead sensing/impedance/threshold. - Short episodes of NSVT noted along with AHR episodes that were short lived. The EGMS correlate with either atrial tachycardia or 1:1 SVT or AFL. The episodes are short with the longest being 67 seconds. This was all during 06/2022 when patient was going through some UTI/kidney infection issues. - Follow-up in one year. Follow-up: Return in about 1 year (around 08/13/2023). Chief Complaint: No chief complaint on file. Subjective History of Present Illness: Kristen Mann is a 72 y.o. female with history of AV block, Asthma, T2DM, HLD, GERD, migraine, retinal hemorrhage, stroke hx underwent recent RV lead revision due to defective pacemaker lead and chest pain. She was also having some dizziness and near syncope. Patient underwent successful RV lead revision back in May at [facility] with the old RV lead removed due to <1 year of implant. No issues were noted with revision. Patient today feels the device but otherwise is not having any further chest pain, no syncope, dizziness. The revision worked well and she is happy. She did have some ventricular high rate episodes that were around the time when she was dealing with a UTI. Objective Tobacco Use Smoking Status Never Smokeless Tobacco Never Imaging: I independently reviewed the EKG and agree with the interpretation(s) with the following comments. EKG 12-lead Final Result by Bobby Tan MD (05/07/2022 1836) Echocardiogram limited with contrast Final Result by Jaguar Forbes DO (05/08/2022 0908) Echocardiogram limited Final Result by Patricia Dowling MD (12/23/2021 1502) Echocardiogram complete w contrast Final Result by Patricia Dowling MD (11/21/2021 1405) Echocardiogram complete Final Result by Marcia Barrientos MD (02/09/2018 1023) Transesophageal Echocardiogram Final Result by Axel Soares MD (10/16/2015 0935) HOME Medications: Patient's Medications New Prescriptions No medications on file Previous Medications ALBUTEROL 90 MCG/ACTUATION INHALER Inhale 2 (two) puffs every 6 (six) hours as needed for wheezing . CETIRIZINE-PSEUDOEPHEDRINE (ZYRTEC-D) 5-120 MG PER TABLET Take 1 (one) tablet by mouth daily . CHOLECALCIFEROL, VITAMIN D3, 50 MCG (2,000 UNIT) TAB Take 1 (one) tablet (2,000 Units total) by mouth nightly . ESOMEPRAZOLE (NEXIUM) 40 MG CAPSULE Take 1 (one) capsule (40 mg total) by mouth daily . EZETIMIBE (ZETIA) 10 MG TABLET Take 1 (one) tablet (10 mg total) by mouth daily . INSULIN GLARGINE (LANTUS) 100 UNIT/ML INJECTION Inject 35 (thirty five) Units under the skin daily . INSULIN LISPRO (ADMELOG,HUMALOG) 100 UNIT/ML INJECTION Inject 8 (eight) Units under the skin 3 (three) times a day before meals Plus sliding scale: 151-200 = 7, 201-250 = 20, above 250 = 25 . METOPROLOL SUCCINATE (TOPROL-XL) 25 MG 24 HR TABLET Take 1 (one) tablet (25 mg total) by mouth nightly . TRAMADOL (ULTRAM) 50 MG TABLET Take 0.5 (one-half) tablet (25 mg total) by mouth every 4 (four) hours as needed for pain . Modified Medications No medications on file Discontinued Medications DICYCLOMINE (BENTYL) 10 MG CAPSULE Take 1 (one) capsule (10 mg total) by mouth daily as needed . FLUTICASONE PROPIONATE (FLONASE) 50 MCG/ACTUATION NASAL SPRAY USE 1 SPRAY(S) IN EACH NOSTRIL TWICE DAILY METFORMIN (GLUCOPHAGE) 1000 MG TABLET Take 1 (one) tablet (1,000 mg total) by mouth 2 (two) times aday . NITROFURANTOIN (MACRODANTIN) 25 MG CAPSULE Take 1 (one) capsule (25 mg total) by mouth nightly Reasons: urinary tract infection prevention. OXYCODONE-ACETAMINOPHEN (PERCOCET) 5-325 MG PER TABLET Take 1 tablet by mouth every 6 (six) hours as needed for pain 7 . VENLAFAXINE (EFFEXOR-XR) 150 MG 24 HR CAPSULE Take 1 (one) capsule (150 mg total) by mouth daily . Physical Examination: Ht 5' 5" Wt 87.2 kg (192 lb 4.8 oz) BMI 32.00 kg/m Lab Results Component Value Date CHOL 227 (H) 02/09/2018 LDLCALC 135 (H) 02/09/2018 TRIG 194 (H) 02/09/2018 HDL 53 02/09/2018 Creatinine clearance cannot be calculated (Patient's most recent lab result is older than the maximum 14 days allowed.) documented in this [id number] Instructions* Patient Instructions* Steffany Sampson RN - 08/13/2022 3:44 PM EST Testing Ordered: none Medication Changes: none Lab Work Ordered: none Referrals: none To schedule your next office visit at [address] [place] [address] please reach out to [phone] and follow the prompts to scheduling. To schedue any outpatient testing (if applicable) simply call [phone] and follow prompts to schedule outpatient testing. Thanks, Steffany Sampson RN [facility], Nurse Edm Operator [phone] documented in this [id number] Miscellaneous Notes* Letter - Mammography Coordinator - 07/14/2022 4:41 PM EST July 14, 2022 PID: [id number] Kristen Mann [address] [place] [address] Dear Ms. Mann, We are pleased to inform you that the results of your recent breast imaging exam on 07/14/2022 are normal. Your mammogram demonstrates that you have dense breast tissue, which could hide abnormalities. Dense breast tissue, in and of itself, is a relatively common condition. Therefore, this information is not provided to cause undue concern; rather, it is to raise your awareness and promote discussion with your health care provider regarding the presence of dense breast tissue in addition to other riskfactors. Early detection of cancer is very important. We also understand recommendations regarding breast cancer screening are controversial. Please discuss with your primary care provider which strategy is best for you and whether a mammogram is right for you. Your imaging studies and report will be kept on file at [facility] as part of your permanent medical record and are available for your continuing care. Thank you for allowing us to help in meeting your health care needs. Sincerely, Dr. Paredes Interpreting Radiologist [facility] (Normal over 40) documented in this encounterL[facility]09-19-2022 History of Present illness Narrative* Eliecer Hill CNP - 05/25/2022 8:15 AM EDTAssociated Order(s): LG Jt Injection/Arthrocentesis: R knee Post-Procedure Diagnose(s): Primary osteoarthritis of right knee 05/24/22 Kristen Mann 1950 HISTORY of Present Illness: Kristen Mann is a 72 y.o. year old female that presents today with right knee pain . Kristen Mann has had injections in the past. Last injection to right/left knee was 02/12/22 and they tolerated well. They have been treated w/ oral medications & injections. Patient denies new injury to the knees. The following portions of the patient's history were reviewed and updated as appropriate: allergies, current medications, past surgical history and problem list PAST MEDICAL HISTORY The patient's Medications, Allergies, Past Surgical History, Medical History, Family History and Social History were reviewed and can be found in their online medical record, and I have reviewed thisinformation with Kristen Mann at the time of their visit. They are significant for Past Medical History: Diagnosis Date Asthma Atopy Diabetes (HCC) Eczema GERD (gastroesophageal reflux disease) Granulomatous disease (HCC) Hyperlipidemia Migraine headache Recurrent UTI 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HCC) Tachycardia IMAGING Notes: none new today. Reviewed from last visit. IMPRESSION And PLAN: Cortisone injection today. Will follow up in 3 months if effective. Call if no improvement in 10 days. No diagnosis found. LG Jt Injection/Arthrocentesis: R knee Performed by: Eliecer Hill CNP Authorized by: Eliecer Hill CNP CPT 06841 - Large Joint Arthrocentesis: Consent given by: Patient Time out: Immediately prior to the procedure a time out was called Physician or proceduralist has discussed critical or nonroutine steps, procedure duration and anticipated blood loss: Yes Supporting Documentation: Indications: Pain, joint swelling and diagnostic evaluation Procedure Details: Location: Knee Site: R knee Prep: patient was prepped and draped in usual sterile fashion Needle size: 22 G Approach: Anterolateral Medications: 40 mg triamcinolone acetonide 40 mg/mL Anesthetic used: Lidocaine 1% Anesthetic amount (mL): 2 Patient tolerance: Patient tolerated the procedure well with no immediate complications Eliecer Hill CNP documented in this [id number] History of Present illness Narrative* Angelina Jules RN - 05/19/2022 10:33 AM EDT Images from the original note were not included. Patient Name: Kristen Mann Date: 05/19/22 MR #: [id number] : 1950 Wound Check Assessment Type of Incision Check: Date of Device Implant for RV lead revision Implanting Manager Grant: Dr. Hubbard ([facility]) Following Manager Grant: Dr. Campos Type and Brand of device: [employer] dual chamber Pacemaker Site of incision/device: left chest Site Assessment: The incision site is Wound clean and dry no evidence of infection., No Erythema, No Drainage, and Wound Intact. Edges well approximated with some scabbing present. Very small amount of edema to device pocket. Fading ecchymosis noted inferior to PPM. Steri strips removed this visit. Subjective: The patient denies fever, chills, redness, or moderate to severe pain. States she has had very little pain especially compared to what she has had prior Follow up: Site needs to be reassessed: no The patient will have an office visit in: 3 months at [facility] with DC Remote transmitter education completed : Is currently set up Verbal consent obtained for wound picture. I reviewed with patient the signs and symptoms of infection. The restrictions were explained to the patient in verbal and written form, and the patient verbalized understanding. The patient is aware to schedule an office visit after the next device visit in 3 months documented in this [id number] Note* Quick Note - Gisele Dubois CNP - 05/09/2022 12:30 PM EDT Chest x-ray from this AM: FINDINGS: The cardiomediastinal silhouette is unchanged with left chest pacemaker again noted. The lung cheney are aerated. The costophrenic angles are sharp. There is no evidence of pneumothorax. No acute osseous abnormality. Ok for discharge from EP standpoint [id number] Miscellaneous Notes* Quick Note - Gisele Dubois CNP - 05/09/2022 12:30 PM EDT Chest x-ray from this AM: FINDINGS: The cardiomediastinal silhouette is unchanged with left chest pacemaker again noted. The lung cheney are aerated. The costophrenic angles are sharp. There is no evidence of pneumothorax. No acute osseous abnormality. Ok for discharge from EP standpoint * Quick Note - Shi Valle RN - 05/09/2022 10:14 AM EDT Patient watching device video at bedside. * Sign Off Note - Gisele Dubois CNP - 05/09/2022 9:42 AM EDT Electrophysiology Sign-Off Consulting Physician: Dr Hubbard Diagnosis: RV lead migration Plan: RVlead removed and replaced Relevant EP Meds: N/A Anticoagulation: N/A Follow-up Appointment: Incision check in [place] with Dr Campos and PPM check in [address] Hubbard in [place]. Electrophysiology Service will sign off. Please re-call with any questions, concerns, or clinical updates. Assessment & Plan Kristen Mann is a 72 y.o. female with a history of heart block, asthma, Type II diabetes, GERD,HLD, migraine, retinal hemorrhage and stroke who presented to [facility] 05/07/2022 with a defective pacemaker lead and syncopal episodes. EP consulted for RV lead revision. Impression: Sick sinus syndrome requiring dual lead PPM 12-15-2021. Continued chest pain and found to have high RV impedances and recommended RV lead reposition at [facility]. Echo: 11-21-2021 EF 61%, no hemodynamically significant valvular disease. Stress: 2018 No ischemia, EF 71% She underwent RV lead removal and new implantation yesterday. Plan: ok for discharge from EP standpoint after today's chest x-ray read by radiology and negative for pneumothorax. Follow up on AVS, Device restrictions reviewed with her and booklet shared with her. She is to watch video before discharge. * [facility] - Liane Keys PT - 05/08/2022 2:05 PM EDT PHYSICAL THERAPY VISIT VARIANCE NOTE Attempted to see patient at this time, but unable secondary to: pending EP plan for possible pacer device . Will follow up as appropriate. * [facility] - Ailyn Nagy OT - 05/08/2022 8:34 AM EDT OCCUPATIONAL THERAPY VISIT VARIANCE NOTE Attempted to see patient at this time, but unable secondary to: (pending EP plan for possible pacer revision). Will follow up as appropriate. * Assessment & Plan Note - Gisele Dubois CNP - 05/08/2022 7:32 AM EDT Associated Problem(s): Pacemaker complications, initial encounter Kristen Mann is a 72 y.o. female with a history of heart block, asthma, Type II diabetes, GERD,HLD, migraine, retinal hemorrhage and stroke who presented to [facility] 05/07/2022 with a defective pacemaker lead and syncopal episodes. EP consulted for RV lead revision. Impression: Sick sinus syndrome requiring dual lead PPM 12-15-2021. Continued chest pain and found to have high RV impedances and recommended RV lead reposition at [facility]. Echo: 11-21-2021 EF 61%, no hemodynamically significant valvular disease. Stress: 2018 No ischemia, EF 71% She underwent RV lead removal and new implantation yesterday. Plan: ok for discharge from EP standpoint after today's chest x-ray read by radiology and negative for pneumothorax. Follow up on AVS, Device restrictions reviewed with her and booklet shared with her. She is to watch video before discharge. * Plan of Care - Fozia Valdez RN - 05/07/2022 11:13 PM EDT Problem: Actual or potential alteration in health Goal: Absence of healthcare acquired conditions Outcome: Partially Met Goal: Knowledge of Interdisciplinary Plan of Care Outcome: Partially Met Goal: Knowledge of Enviroment Outcome: Partially Met * ED Procedure Note - Bobby Tan MD - 05/07/2022 6:35 PM EDT Associated Order(s): EKG 12-lead EKG 12-lead Date/Time: 05/07/2022 6:35 PM Performed by: Bobby Tan MD Authorized by: Bobby Tan MD Interpreted by ED attending physician Comparison: compared with previous ECG Rhythm: sinus rhythm BPM: 90 Conduction: conduction normal ST Segments: ST segments normal QRS axis: normal T Waves: T waves normal RI Interval: 164 QRS Interval: 70 QT Interval: 455 Clinical impression: normal ECG documented in this [id number] Hospital course Narrative* Edward Kearney MD - 05/09/2022 12:00 PM EDT [facility] DISCHARGE SUMMARY Kristen Mann Account: [id number] Admitted: 05/07/2022 Discharge Date/Time: 05/09/22 12:59 PM Handoff to PCP Routine hospital follow up Clinical Summary Kristen Mann is a 72 y.o. female with a history of heart block, Type II diabetes, retinal hemorrhage and stroke who presented to [facility] 05/07/2022 with a defective pacemaker lead and syncopal episodes. Patient underwent RV lead revision Chest pain: S/p PPM 12/2021 in [place]. Chest wall pain since then. CT showed possible lead migration. Evaluated by Dr. Hubbard and recommended admission for lead revision. EP followed s/p RV lead revision on 05/08/2022. improved. Syncopal episodes: Diagnosed with 2-1 AV block. Likely secondary to pacemaker malfunction. EP followed. Management as able. Improved, no more dizziness after lead revision HTN: Continued metoprolol. Hx of IBS: Continued on bentyl. Chronic pain: Continued on oxycodone Recurrent UTI: On macrobid indefinitely for prophylaxis. Continued on admission. Code status: Full Code Discharge Medications Medication List CHANGE how you take these medications metFORMIN 1000 MG tablet Commonly known as: GLUCOPHAGE What changed: Another medication with the same name was removed. Continue taking this medication, and follow the directions you see here. CONTINUE taking these medications albuterol 90 mcg/actuation inhaler Inhale 2 (two) puffs every 6 (six) hours as needed for wheezing . cetirizine-pseudoePHEDrine 5-120 mg per tablet Commonly known as: ZyrTEC-D cholecalciferol (vitamin D3) 50 mcg (2,000 unit) Tab dicyclomine 10 MG capsule Commonly known as: BENTYL esomeprazole 40 MG capsule Commonly known as: NEXIUM ezetimibe 10 mg tablet Commonly known as: ZETIA fluticasone propionate 50 mcg/actuation nasal spray Commonly known as: FLONASE insulin glargine 100 unit/mL injection Commonly known as: LANTUS insulin lispro 100 unit/mL injection Commonly known as: AdmeLOG,HumaLOG metoprolol succinate 25 MG 24 hr tablet Commonly known as: TOPROL-XL nitrofurantoin 25 MG capsule Commonly known as: MACRODANTIN oxyCODONE-acetaminophen 5-325 mg per tablet Commonly known as: PERCOCET venlafaxine 150 MG 24 hr capsule Commonly known as: EFFEXOR-XR STOP taking these medications doxycycline hyclate 100 MG tablet Commonly known as: VIBRA-TABS insulin aspart U-100 100 unit/mL injection Commonly known as: NovoLOG metFORMIN 500 MG 24 hr tablet Commonly known as: GLUCOPHAGE-XR You also have another medication with the same name that you need to continue taking as instructed. triamcinolone 0.1 % cream Commonly known as: KENALOG trimethoprim 100 mg tablet Commonly known as: TRIMPEX Vitamin D2 1,250 mcg (50,000 unit) capsule Generic drug: ergocalciferol Physician(s) Family: Olivier Acosta MD, , Address: [address] [place] [id number] Follow Up: Cecilia Campos MD [address] [place], [place] [id number] Follow up Someone will call to schedule an incision check in 7-10 days. Radha Hubbard, DO [address] [place] [address] [place] [phone] Go on 08/13/2022 EP cardiology follow up 08/13/22. Additional Information: Patient seen and examined day of discharge. Feeling a lot better, worked with physical therapy, was not wobbly or dizzy like before. Chest pain improved significantly, she is still sore at surgical site but pain is managed with Tylenol. Chest x-ray negative for pneumothorax She denied chest pain, , palpitations. No nausea, vomiting, tolerating oral diet well. No fever, no leucocytosis, no major over night events noted For more information regarding patient's care, including complete radiology reports, please [facility] at Patient instructions, including activity, were given to the patient/family at discharge. Please seethe After Visit Summary in the medical record for details. Time spent on discharge: > 30 minutes Completed by: Edward Kearney on 05/09/22, 12:59 PM documented in this [id number] Consult note* Candace Cortes OT - 05/09/2022 11:43 AM EDT Occupational Therapy OCCUPATIONAL THERAPY EVALUATION AND TREATMENT NOTE OCCUPATIONAL THERAPY EVALUATION Skilled Therapy Needs After Discharge Anticipate Resolution of Current Assessment Limitations Including: (n/a) Are Skilled Therapy Services Needed After Discharge: Yes Intensity of Skilled Therapy: (home safety eval) Anticipated Duration of Skilled Therapy: Home Safety Evaluation - one visit DME Recommendation: None Rehab Potential: Good, For goals Outcomes Measures Prior Function Daily Activity Raw Score: 24 Prior Function Daily Activity % Impaired: 0% AM-PAC Daily Activity Raw Score: 19 AM-PAC Daily Activity % Impaired: 42.80% Occupational Therapy Assessment The patient's current functional participation deficits are grooming, UE dressing, toileting, bathing, functional mobility, home management. This reduced independence will limit their life roles of premorbid level individual. The patient's co morbidities do affect patient performance in the above activities and roles. The performance deficits are a result of musculoskeletal, cardiopulmonary impairment(s) in generalized debility, left, upper extremity including strength, balance (reports chronicback issues resulting in balance impairments), safety, and . The patient's home setup is a [employer], limitations of family / caregiver support is a barrier for return to prior level of function. The patient's awareness of own capacity and performance is a [employer] to return to prior level of function. During the assessment, minimal to moderate modification of task was required and several treatment options were identified in the plan of care. This consultation required expanded review of the medical and therapy history. Activity Tolerance Activity Tolerance: Tolerates 20 - 30 min activity with multiple rests (mild dyspnea w/ hallway mobility) Therapy Precautions Orthotic Devices: No General Rehab Precautions: Pacer (mild fall risk) Cognition Overall Cognitive Status: Within Functional Limits Arousal/Alertness: Appropriate responses to stimuli Orientation Level: Oriented X4 Executive functioning: Min impairment, Insight (re: new precautions) Safety Judgment: Good awareness of safety precautions Problem Solving: Assistance required to generate solutions Attention: Attends to distracted environment Hearing Status: WFL Social Interaction: Cooperative, Appropriate Comments: Pt able to follow all commands. Review pacer precautions and functional application to ADL and mobility task. ADL Upper Body Bathing: (education provided on modifications while adhering to precautions) Upper Body Dressing: Stand by assist, Increased time to complete Lower Body Dressing: Stand by assist Toileting: (Pt declines need) Functional Mobility: Contact guard assist Bed Mobility Supine to Sit: Stand by assist Sit to Supine: (Pt seated in chair at conclusion of therapy session) Functional Transfers Sit to Stand: Stand by assist Bed to Chair Transfers: Stand by assist, Contact guard assist Home Living Obtained Home Living and PLOF info from: Patient Lives With: Alone (son lives next door) Type of Home: House Home Layout: One level Steps to enter home: Yes Rails to enter home: 2 rails Number of stairs to enter home: 3 Bathroom Shower/Tub: Tub/shower unit Bathroom Toilet: Standard Bathroom Equipment: Bedside commode (not used at baseline) Mobility Equipment: Wheeled walker, Standard walker, Rollator, Wheelchair - manual (not used at baseline) Prior Level of Function Receives Help From: Family Level of [place] - Transfers/Ambulation/Mobility: Independent with functional transfers, Independent with household ambulation, Independent with community ambulation Level of [place] - ADLs: Independent Level of [place] - Homemaking: Independent Driving: Patient drives Subjective Impression - Prior Function: Pt reports 2 falls in the last two months. Chronic back andR knee issues resulting in balance impairments. OCCUPATIONAL THERAPY TREATMENT NOTE Total Treatment Time (Total Session Time): 20 Minutes Total Timed Code Treatment Minutes: 10 Minutes Self-Care / ADL Upper Body Dressing - Skilled Intervention Provided: verbal cues, visual cues, demonstration Upper Body Dressing - For: UE positioning Upper Body Dressing - Resulting In: improved functional independence, improved ability to understand / adhere to precautions, improved overall self care Lower Body Dressing - Skilled Intervention Provided: verbal cues, visual cues, demonstration Lower Body Dressing - For: use of figure four technique for lower body ADLs Lower Body Dressing - Resulting In: improved functional independence, improved ability to understand / adhere to precautions, improved overall self care Functional Mobility - Skilled Intervention Provided: verbal cues, facilitation, monitoring patient response with activity Functional Mobility - For: fall prevention, energy conservation, safety during functional task(s) Functional Mobility - Resulting In: improved balance, improved activity tolerance, improved functional independence Therapeutic Activities Bed Mobility Skilled Intervention Provided: verbal cues, facilitation For: efficient movement, proper body mechanics Resulting In: improved balance, improved activity tolerance Functional Transfers Skilled Intervention Provided: verbal cues, facilitation For: fall prevention, energy conservation, proper body mechanics, safety during functional task(s) Resulting In: improved balance, improved activity tolerance, improved functional independence Neuromuscular Reeducation Sitting Balance - Static: Independent Sitting Balance - Dynamic: Supervision Standing Balance - Static: Stand by assist Standing Balance - Dynamic: Stand by assist, Contact guard assist Additional Treatment Details Simulated UB/LB dressing with verbal cues provided for modified technique to complete while adhering to precautions. Facilitated hallway mobility with intermittent SBA/CGa provided. Pt demonstrates with mild dyspnea w/ ambulation. Encouraged increase activity and OOB to maintain strength and endurance. Past Medical History: Diagnosis Date Asthma Atopy Diabetes (HCC) Eczema GERD (gastroesophageal reflux disease) Granulomatous disease (HCC) Hyperlipidemia Migraine headache Recurrent UTI 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HCC) Tachycardia Past Surgical History: Procedure Laterality Date APPENDECTOMY CARDIAC CATHETERIZATION SECTION, CLASSIC x2 CHOLECYSTECTOMY OPEN EP - DEVICE N/A 12/20/2020 Procedure: Loop Recorder Implant; Surgeon: Lenard Das MD; Location: EP LAB; Service: Cardiovascular EP - DEVICE N/A 12/15/2021 Procedure: Pacemaker Implant (Dual PPM 12-15-21 at 0600/0800); Surgeon: Lenard Das MD; Location: EP LAB; Service: Cardiovascular EYE SURGERY HYSTERECTOMY For complete objective data, detailed plan of care and patient education refer to: OT Evaluation flowsheet, OT Evaluation and Treatment flowsheet, OT Treatment flowsheet, patient Plan of Care, Plan of Care progress note, and Patient Education. This note stands as the current Discharge Summary upon patient discharge from the hospital or completion of Occupational Therapy Plan of Care. [id number] Consult note* Candace Cortes OT - 05/09/2022 11:43 AM EDT Occupational Therapy OCCUPATIONAL THERAPY EVALUATION AND TREATMENT NOTE OCCUPATIONAL THERAPY EVALUATION Skilled Therapy Needs After Discharge Anticipate Resolution of Current Assessment Limitations Including: (n/a) Are Skilled Therapy Services Needed After Discharge: Yes Intensity of Skilled Therapy: (home safety eval) Anticipated Duration of Skilled Therapy: Home Safety Evaluation - one visit DME Recommendation: None Rehab Potential: Good, For goals Outcomes Measures Prior Function Daily Activity Raw Score: 24 Prior Function Daily Activity % Impaired: 0% AM-PAC Daily Activity Raw Score: 19 AM-PAC Daily Activity % Impaired: 42.80% Occupational Therapy Assessment The patient's current functional participation deficits are grooming, UE dressing, toileting, bathing, functional mobility, home management. This reduced independence will limit their life roles of premorbid level individual. The patient's co morbidities do affect patient performance in the above activities and roles. The performance deficits are a result of musculoskeletal, cardiopulmonary impairment(s) in generalized debility, left, upper extremity including strength, balance (reports chronicback issues resulting in balance impairments), safety, and . The patient's home setup is a [employer], limitations of family / caregiver support is a barrier for return to prior level of function. The patient's awareness of own capacity and performance is a [employer] to return to prior level of function. During the assessment, minimal to moderate modification of task was required and several treatment options were identified in the plan of care. This consultation required expanded review of the medical and therapy history. Activity Tolerance Activity Tolerance: Tolerates 20 - 30 min activity with multiple rests (mild dyspnea w/ hallway mobility) Therapy Precautions Orthotic Devices: No General Rehab Precautions: Pacer (mild fall risk) Cognition Overall Cognitive Status: Within Functional Limits Arousal/Alertness: Appropriate responses to stimuli Orientation Level: Oriented X4 Executive functioning: Min impairment, Insight (re: new precautions) Safety Judgment: Good awareness of safety precautions Problem Solving: Assistance required to generate solutions Attention: Attends to distracted environment Hearing Status: WFL Social Interaction: Cooperative, Appropriate Comments: Pt able to follow all commands. Review pacer precautions and functional application to ADL and mobility task. ADL Upper Body Bathing: (education provided on modifications while adhering to precautions) Upper Body Dressing: Stand by assist, Increased time to complete Lower Body Dressing: Stand by assist Toileting: (Pt declines need) Functional Mobility: Contact guard assist Bed Mobility Supine to Sit: Stand by assist Sit to Supine: (Pt seated in chair at conclusion of therapy session) Functional Transfers Sit to Stand: Stand by assist Bed to Chair Transfers: Stand by assist, Contact guard assist Home Living Obtained Home Living and PLOF info from: Patient Lives With: Alone (son lives next door) Type of Home: House Home Layout: One level Steps to enter home: Yes Rails to enter home: 2 rails Number of stairs to enter home: 3 Bathroom Shower/Tub: Tub/shower unit Bathroom Toilet: Standard Bathroom Equipment: Bedside commode (not used at baseline) Mobility Equipment: Wheeled walker, Standard walker, Rollator, Wheelchair - manual (not used at baseline) Prior Level of Function Receives Help From: Family Level of [place] - Transfers/Ambulation/Mobility: Independent with functional transfers, Independent with household ambulation, Independent with community ambulation Level of [place] - ADLs: Independent Level of [place] - Homemaking: Independent Driving: Patient drives Subjective Impression - Prior Function: Pt reports 2 falls in the last two months. Chronic back andR knee issues resulting in balance impairments. OCCUPATIONAL THERAPY TREATMENT NOTE Total Treatment Time (Total Session Time): 20 Minutes Total Timed Code Treatment Minutes: 10 Minutes Self-Care / ADL Upper Body Dressing - Skilled Intervention Provided: verbal cues, visual cues, demonstration Upper Body Dressing - For: UE positioning Upper Body Dressing - Resulting In: improved functional independence, improved ability to understand / adhere to precautions, improved overall self care Lower Body Dressing - Skilled Intervention Provided: verbal cues, visual cues, demonstration Lower Body Dressing - For: use of figure four technique for lower body ADLs Lower Body Dressing - Resulting In: improved functional independence, improved ability to understand / adhere to precautions, improved overall self care Functional Mobility - Skilled Intervention Provided: verbal cues, facilitation, monitoring patient response with activity Functional Mobility - For: fall prevention, energy conservation, safety during functional task(s) Functional Mobility - Resulting In: improved balance, improved activity tolerance, improved functional independence Therapeutic Activities Bed Mobility Skilled Intervention Provided: verbal cues, facilitation For: efficient movement, proper body mechanics Resulting In: improved balance, improved activity tolerance Functional Transfers Skilled Intervention Provided: verbal cues, facilitation For: fall prevention, energy conservation, proper body mechanics, safety during functional task(s) Resulting In: improved balance, improved activity tolerance, improved functional independence Neuromuscular Reeducation Sitting Balance - Static: Independent Sitting Balance - Dynamic: Supervision Standing Balance - Static: Stand by assist Standing Balance - Dynamic: Stand by assist, Contact guard assist Additional Treatment Details Simulated UB/LB dressing with verbal cues provided for modified technique to complete while adhering to precautions. Facilitated hallway mobility with intermittent SBA/CGa provided. Pt demonstrates with mild dyspnea w/ ambulation. Encouraged increase activity and OOB to maintain strength and endurance. Past Medical History: Diagnosis Date Asthma Atopy Diabetes (HCC) Eczema GERD (gastroesophageal reflux disease) Granulomatous disease (HCC) Hyperlipidemia Migraine headache Recurrent UTI 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[facility]) Tachycardia Past Surgical History: Procedure Laterality Date APPENDECTOMY CARDIAC CATHETERIZATION SECTION, CLASSIC x2 CHOLECYSTECTOMY OPEN EP - DEVICE N/A 12/20/2020 Procedure: Loop Recorder Implant; Surgeon: Lenard Das MD; Location: EP LAB; Service: Cardiovascular EP - DEVICE N/A 12/15/2021 Procedure: Pacemaker Implant (Dual PPM 12-15-21 at 0600/0800); Surgeon: Lenard Das MD; Location: EP LAB; Service: Cardiovascular EYE SURGERY HYSTERECTOMY For complete objective data, detailed plan of care and patient education refer to: OT Evaluation flowsheet, OT Evaluation and Treatment flowsheet, OT Treatment flowsheet, patient Plan of Care, Plan of Care progress note, and Patient Education. This note stands as the current Discharge Summary upon patient discharge from the hospital or completion of Occupational Therapy Plan of Care. * Gisele Dubois, MAGNETIC PROSPECTING OPERATOR - 05/08/2022 7:26 AM EDTAssociated Order(s): IP CONSULT TO CARDIAC ELECTROPHYSIOLOGY ELECTROPHYSIOLOGY CONSULT NOTE Patient Name: Kristen Mann Admit Date: [id number] MR #: [id number] : 1950 Physicians: Olivier Acosta MD (Family); No ref. provider found (Referring) Assessment and Plan: Pacemaker complications, initial encounter Assessment & Plan Kristen Mann is a 72 y.o. female with a history of heart block, asthma, Type II diabetes, GERD,HLD, migraine, retinal hemorrhage and stroke who presented to [facility] 05/07/2022 with a defective pacemaker lead and syncopal episodes. EP consulted for RV lead revision. Impression: Sick sinus syndrome requiring dual lead PPM 12-15-2021. Continued chest pain and found to have high RV impedances and recommended RV lead reposition at [facility]. Echo: 11-21-2021 EF 61%, no hemodynamically significant valvular disease. Stress: 2018 No ischemia, EF 71% Plan: RV lead reposition today in EP lab. Chief Complaint/Reason for Visit: High RV amplitude had dropped and unable to pace RV. History of Present Illness: Kristen Mann is a 72 y.o. female with a history of heart block, asthma, Type II diabetes, GERD, HLD, migraine, retinal hemorrhage and stroke who presented to [facility] 05/07/2022 with a defective pacemaker lead and syncopal episodes. She was seen by Dr Hubbard in the office and a device interrogation was found to have lack of capture at high output pacing whether be bipolar or unipolar. Due to the lack of capture and her symptoms ofrecent dizziness and near syncopal episodes I think it would be best for the patient to come [facility] Plan for hospitalist admission and electrophysiology consultation for potential lead revision tomorrow. The following Vizient risk variables were noted and present on admission: Cardiac Arrhythmia Please see assessment and plan for further details. History: Past Medical History: Diagnosis Date Asthma Atopy Diabetes (HCC) Eczema GERD (gastroesophageal reflux disease) Granulomatous disease (HCC) Hyperlipidemia Migraine headache Recurrent UTI 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HCC) Tachycardia Past Surgical History: Procedure Laterality Date APPENDECTOMY CARDIAC CATHETERIZATION SECTION, CLASSIC x2 CHOLECYSTECTOMY OPEN EP - DEVICE N/A 12/20/2020 Procedure: Loop Recorder Implant; Surgeon: Lenard Das MD; Location: EP LAB; Service: Cardiovascular EP - DEVICE N/A 12/15/2021 Procedure: Pacemaker Implant (Dual PPM 12-15-21 at 0600/0800); Surgeon: Lenard Das MD; Location: EP LAB; Service: Cardiovascular EYE SURGERY HYSTERECTOMY Family History Problem Relation Age of Onset Heart disease Father Asthma Mother Social History Socioeconomic History Marital status: Number of children: 3 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 Morphine, Penicillins, and Sulfa (sulfonamide antibiotics) Home Medications: Outpatient Medications as of 05/08/2022 Medication Sig cetirizine-pseudoePHEDrine (ZyrTEC-D) 5-120 mg per tablet Take 1 tablet by mouth daily . ezetimibe (ZETIA) 10 mg tablet Take 10 mg by mouth daily . fluticasone propionate (FLONASE) 50 mcg/actuation nasal spray USE 1 SPRAY(S) IN EACH NOSTRIL TWICE DAILY insulin glargine (LANTUS) 100 unit/mL injection Inject 35 (thirty five) Units under the skin daily . insulin lispro (AdmeLOG,HumaLOG) 100 unit/mL injection Inject 8 (eight) Units under the skin 3 (three) times a day before meals Plus sliding scale: 151-200 = 7, 201-250 = 20, above 250 = 25 . metoprolol succinate (TOPROL-XL) 25 MG 24 hr tablet Take 1 (one) tablet (25 mg total) by mouth nightly . nitrofurantoin (MACRODANTIN) 25 MG capsule Take 1 (one) capsule (25 mg total) by mouth nightly Reasons: urinary tract infection prevention. oxyCODONE-acetaminophen (PERCOCET) 5-325 mg per tablet Take 1 tablet by mouth every 6 (six) hours as needed for pain 7 . venlafaxine (EFFEXOR-XR) 150 MG 24 hr capsule Take 1 (one) capsule (150 mg total) by mouth daily . albuterol 90 mcg/actuation inhaler Inhale 2 (two) puffs every 6 (six) hours as needed for wheezing . doxycycline hyclate (VIBRA-TABS) 100 MG tablet Take 1 (one) tablet (100 mg total) by mouth 2 (two) times a day . insulin aspart U-100 (NovoLOG) 100 unit/mL injection Inject under the skin 3 (three) times a day before meals Not taking . triamcinolone (KENALOG) 0.1 % cream trimethoprim (TRIMPEX) 100 mg tablet Take 100 mg by mouth daily . VITAMIN D2 50,000 unit capsule Take 50,000 Units by mouth once a week . Review of Systems: The following system(s) were reviewed and pertinent findings noted: CV:No chest pain. No ankle swelling Resp:No dyspnea. No wheezing All other systems reviewed and negative other than HPI Physical Examination: Vital Signs: BP (!) 161/91 Pulse 90 Temp 98.1 F (36.7 C) (Oral) Resp 16 Ht 5' 6.5" Wt 90.1 kg (198 lb 10.2 oz) SpO2 96% BMI 31.58 kg/m General: Alert, cooperative, no distress, appears stated age Head: Normocephalic, without obvious abnormality, atraumatic Throat: Lips, mucosa, and tongue normal; teeth and gums normal Neck: Supple, symmetrical, trachea midline, Back: Symmetric, no curvature, ROM normal, no CVA tenderness Lungs: Clear to auscultation bilaterally, respirations unlabored,normal respiratory effort Chest Wall: No tenderness or deformity Cardiovascular: Regular rate and rhythm, S1 and S2 normal, no murmur, rub or gallop; Pulses 2+ and symmetric all extremities Abdomen: Soft, non-tender, Extremities: Normal, atraumatic, no cyanosis or edema Skin: Skin color, texture, turgor normal, no rashes or lesions Musculoskeletal: Full range of motion of all extremities; no joint edema Neurologic: CNII-XII intact; normal strength, sensation and reflexes throughout Psych: Mood and affect appropriate Laboratory and Additional Data Reviewed: Laboratory 05/08/22 10:11 AM Radiology 05/08/22 10:11 AM Cardiology 05/08/22 10:11 AM Medications 05/08/22 10:11 AM Transcriptions 05/08/22 10:11 AM Associated attestation - Kelton Beckford MD - 05/08/2022 11:22 AM EDT I personally performed a [id number] diagnostic evaluation on this patient on the same calendar day as the DEXTER's evaluation. I agree with the care plan documented by the DEXTER with the following additions/comments. Assessment/Plan: Patient presents with nonfunctioning RV lead, concern for possible RV perforation. Echo this AM with no effusion. We reviewed options including doing nothing, total system extraction (less than 1 year), and RV lead revision. After reviewing the indications, risk, benefits, and alternatives patient would like to proceed with RV lead revision including placing a new lead and removing the existing RV lead. We discussed possible need for pericardial drain if she develops an effusion related to leadrevision. documented in this [id number] Note* Quick Note - Shi Valle RN - 05/09/2022 10:14 AM EDT Patient watching device video at bedside. [id number] Hospital Discharge instructions* Discharge Instructions* Gisele Dubois CNP - 05/09/2022 9:44 AM EDT Images from the original note were not included. You have successfully completed a device implant with Dr Hubbard This outline is intended to help you navigate through your recovery. You may have several questionsover the next few days and our device team is here to help you through this. An online detailed video is accessible with this QR code for review at home or at your convenience. Using your phone you can scan with your camera dexter and the website will populate: Frequently Asked Questions: 1) How do I manage the incision site(s)? A. Dressing: The outer dressing over your incision may be removed 24 hours after the procedure. Thesteristrips underneath should stay on until your incision check appointment in 7-10 days. Please keep them clean and dry B. Bleeding: Following your procedure you were asked to maintain bedrest to allow for adequate sealing of the incision site. Nonetheless, bleeding at the skin site may occur and we realize this may be scary for some patients. Typically, holding direct pressure on the site will address bleeding. If there is persistent bleeding or saturation of dressings despite 15 minutes of pressure we ask that you proceed to the Emergency Room for further evaluation. C. Showering/Bathing: You may resume showering 24 hours after the procedure but the incision needs to remain completely dry as a wet incision may increase risk for infection. D. Evaluate: Expect some incisional tenderness, mild swelling or bruising but there should NOT be signs of infection. Monitor for redness, warmth, fever and call your doctor if you see any of these signs 2) How will I feel after sedation? You may have received either general anesthesia or heavy sedation during this procedure. You shouldnot drive or make legal decisions for at least 24 hours. 3) Do I have physical restrictions? A) Arm restrictions are only for the arm on the side of the device implant B) Avoid movements that put your elbow above the level of your shoulder and activities that cause repetitive motion of that arm for the first 4-6 weeks C) Avoid lifting heavy amounts of weight. Not more than 10 lbs for weeks 1-3, then Not more than 25lbs for weeks 4-6, then there is a lifetime restriction of not more than 50 lbs 4) When can I return to work and driving? A) If you have a physical labor job you may need more time off than others. Please note the physical restrictions above and talk with your provider with any specific concerns B) Most everyone can return within a few days to 1-2 weeks C) Do not drive until after your incision check (This restriction may be longer after an ICD implant) D) Please discuss any specific work or driving restrictions with your doctor or nurse practitioner 5) What interactions do I need to consider in the future? A) AVOID: MRI (most new devices are MRI compatible after 6 weeks but check with the lumite injector), Welding equipment, power generators, alternators on running motors B) CAUTION: cell phones/cordless phones should be used on alternate ear and stored 6 inches from device, metal detectors C) NO INTERFERENCE: Microwaves and other kitchen appliances, corded phones, computers, most power tools Please check with your [employer] Underwriter or Device lumite injector for specific or more technical questions/concerns 6) How will I notify others about my device? You will be provided a medical microbiologist ID card from the device lumite injector. Please carry this card with you 7.) What happens if I receive an ICD shock (not applicable to pacemaker only devices) A) If your ICD fires more than once in a 24 hours period, call 911 B) If your ICD fires and you feel unwell or passed out, call 911 C) If your ICD fires once in 24 hours but you have no symptoms and did not pass out, you may contact your device clinic or Electrophysiology office 8.) How will my device be monitored? A) Each device lumite injector has their own remote monitoring system. This may be given to you prior to discharge or at your upcoming device incision check. You will receive specific instructions on how to do this when you receive the equipment B) With any additional questions related to your specific device you may call the lumite injector directly which you may find in the information book provided by the company. 9.) When will I follow up? A) Your incision check will be in 7-10 days. For most people this will be with the local device clinic who will follow your device but in rare occasions this may be with your PCP or local health concierge B) Your device check will be in person at the device clinic in 3 months You may be asked to do a "virtual visit" in the future for follow up. Scan the QR code with your camera to be taken to our website to review Video Visit set-up. 1) Scan this if your Phone or Tablet will be used for a virtual visit 2) Scan this if your Desktop or Laptop will be used for a virtual visit documented in this [id number] Note* Sign Off Note - Gisele Dubois CNP - 05/09/2022 9:42 AM EDT Electrophysiology Sign-Off Consulting Physician: Dr Hubbard Diagnosis: RV lead migration Plan: RVlead removed and replaced Relevant EP Meds: N/A Anticoagulation: N/A Follow-up Appointment: Incision check in [place] with Dr Campos and PPM check in [address] Hubbard in [place]. Electrophysiology Service will sign off. Please re-call with any questions, concerns, or clinical updates. Assessment & Plan Kristen Mann is a 72 y.o. female with a history of heart block, asthma, Type II diabetes, GERD,HLD, migraine, retinal hemorrhage and stroke who presented to [facility] 05/07/2022 with a defective pacemaker lead and syncopal episodes. EP consulted for RV lead revision. Impression: Sick sinus syndrome requiring dual lead PPM 12-15-2021. Continued chest pain and found to have high RV impedances and recommended RV lead reposition at [facility]. Echo: 11-21-2021 EF 61%, no hemodynamically significant valvular disease. Stress: 2018 No ischemia, EF 71% She underwent RV lead removal and new implantation yesterday. Plan: ok for discharge from EP standpoint after today's chest x-ray read by radiology and negative for pneumothorax. Follow up on AVS, Device restrictions reviewed with her and booklet shared with her. She is to watch video before discharge. [id number] History of Present illness Narrative* Gisele Dubois CNP - 05/09/2022 9:31 AM EDT PROGRESS NOTE Patient Name: Kristen Mann Admit Date: [id number] MR #: [id number] : 1950 Assessment and Plan: Pacemaker complications, initial encounter Assessment & Plan Kristen Mann is a 72 y.o. female with a history of heart block, asthma, Type II diabetes, GERD,HLD, migraine, retinal hemorrhage and stroke who presented to [facility] 05/07/2022 with a defective pacemaker lead and syncopal episodes. EP consulted for RV lead revision. Impression: Sick sinus syndrome requiring dual lead PPM 12-15-2021. Continued chest pain and found to have high RV impedances and recommended RV lead reposition at [facility]. Echo: 11-21-2021 EF 61%, no hemodynamically significant valvular disease. Stress: 2018 No ischemia, EF 71% She underwent RV lead removal and new implantation yesterday. Plan: ok for discharge from EP standpoint after today's chest x-ray read by radiology and negative for pneumothorax. Follow up on AVS, Device restrictions reviewed with her and booklet shared with her. She is to watch video before discharge. Chief Complaint: Planned RV PPM lead removed and replaced yesterday. SUBJECTIVE:Resting in bed, tele with NSR. Allergy Information: I have reviewed the patient's allergies. Morphine, Penicillins, and Sulfa (sulfonamide antibiotics) Review of Systems: Constitutional: No acute distress Skin: No concerns Eyes: Denies acute vision changes CV: Denies chest pain or palpitations Resp: Denies dyspnea or cough GI: Denies hematochezia, melena, abdominal bloating : Denies hemarturia or urinary symptoms MSK: Denies acute MSK pain Neuro: Denies acute neuro defecits Endo: Denies heat or cold intolerance Psych: No acute concerns Physical Examination Vital Signs: BP (!) 152/84 Pulse 81 Temp 98.1 F (36.7 C) (Oral) Resp 16 Ht 5' 6.5" Wt 90.1 kg (198 lb 10.2 oz) SpO2 95% BMI 31.58 kg/m General: No acute distress, A&O x3 Head/Neck: Head- normocephalic, Face- symmetrical, Cardiovascular: Regular rate and rhythm. Normal S1, S2, no M/R/G. No JVD appreciated Respiratory:Clear to ausculation bilaterally without wheezing, rhonchi, rales. No use of accessory muscles Abdominal: Soft, non-tender, non-distended Extremities: Warm, well perfused. No peripheral edema Neurological: Alert and Oriented x 3 Skin: normal turgor, intact Musculoskeletal: moves all extremities to command - Status post implant of RV pacing lead - Overnight events include none - Device check completed by [employer] and reviewed. Remote monitoring education performed by [employer] to patient and family. Further teaching reinforcement to occur at follow up visit. - CXR negative for pneumothorax on chest x-ray 05-08, awaiting results of 05-09. - Dressing removed and steristrips intact with no hematoma or drainage - s/p device teaching to patient with all questions answered to their satisfaction. Patient reportsunderstanding device indication is bradycardia, post-operative lifting restrictions, and device complications including bleeding or signs of infection such as fever, redness, or drainage from incision site. - Will arrange 7-10 day incision check appt with Dr Campos in [place] office and 3 month device check at [address] (Dr Hubbard), she does not want to follow with Dr Das ([place]). [place] does not have a device clinic Laboratory and Additional Data Reviewed: Laboratory 05/09/22 9:41 AM Microbiology 05/09/22 9:41 AM Pathology 05/09/22 9:41 AM Radiology 05/09/22 9:41 AM Cardiology 05/09/22 9:41 AM Medications 05/09/22 9:41 AM Transcriptions 05/09/22 9:41 AM Results from last 7 days Lab Units 05/07/22 1809 05/07/22 1449 TROPONIN T ng/L 28* 34* Results from last 7 days Lab Units 05/08/22 0340 SODIUM mmol/L 142 POTASSIUM mmol/L 4.0 CHLORIDE mmol/L 106 BUN mg/dL 15 CREATININE mg/dL 0.90 GLUCOSE mg/dL 89 CALCIUM mg/dL 9.7 Results from last 7 days Lab Units 05/08/22 0340 WBC K/mcL 12.29* HGB g/dL 12.9 HCT % 40.1 PLT K/mcL 341 Gisele Dubois, MSN, ACNP, CCRN Electrophysiology [facility] , Office * Edward Kearney MD - 05/08/2022 4:51 PM EDT [facility] Inpatient Progress Note 05/08/2022 Kristen Mann 1950 [id number] Assessment/Plan: Kristen Mann is a 72 y.o. female with a history of heart block, Type II diabetes, retinal hemorrhage and stroke who presented to [facility] 05/07/2022 with a defective pacemaker lead and syncopal episodes. Patient underwent RV lead revision Chest pain: S/p PPM 12/2021 in [place]. Chest wall pain since then. CT showed possible lead migration. Evaluated by Dr. Hubbard and recommended admission and EP consult for potential lead revision. EP following, s/p RV lead revision on 05/08/2022. Monitor on telemetry Syncopal episodes: Diagnosed with 2-1 AV block. Likely secondary to pacemaker malfunction. EP following. Management as able. Improved, no more dizziness after lead revision HTN: Continued metoprolol. On the higher side, monitor Hx of IBS: Continued on bentyl. HLD: Continued zetia GERD: Continued on nexium. Hx of CVA: Not on any AP. Chronic pain: Continued on oxycodone Hx of depression: Continued on Effexor Hx of asthma: Continued on albuterol. Type II diabetes Mellitus: Restarted lantus and prandial insulin. Titrate and monitor prn. Recurrent UTI: On macrobid indefinitely for prophylaxis. Continued on admission. Code status: Full Code DVT Prophylaxis: SCD for procedure Current living situation: Home Expected Disposition: TBD Estimated discharge date: TBD Subjective: Patient is new to me, and I reviewed prior records in [facility]. I personally reviewed imaging, lab studies and biometrics consultant notes. Pt is seen and examined bed side, not in acute distress, feeling better after lead extraction. After 4 hours of bedrest she walked to the bathroom and no dizziness was noted.She was feeling dizzy prior to admission. She denied chest pain, , palpitations. No nausea, vomiting, tolerating oral diet well. No fever, mild leucocytosis, no major over night events noted Pain controlled with Tylenol, Motrin, oral oxycodone. Patient mainly using Tylenol Physical Exam: BP 124/73 (BP Location: Right arm, Patient Position: Lying) Pulse 77 Temp 98.1 F (36.7 C) (Oral) Resp 16 Ht 5' 6.5" Wt 90.1 kg (198 lb 10.2 oz) SpO2 97% BMI 31.58 kg/m General: NAD Eyes: EOMI ENT: neck supple Cardiovascular: Regular rate. Respiratory: Clear to auscultation Gastrointestinal: Soft, non tender Genitourinary: no suprapubic tenderness Musculoskeletal: No edema. Skin: warm, dry Neuro: Alert. Psych: Mood appropriate. Current Medications: cephALEXin 250 mg Oral QPM ezetimibe 10 mg Oral Daily insulin glargine 35 Units Subcutaneous Daily insulin lispro 8 Units Subcutaneous TID AC metoprolol succinate 25 mg Oral Nightly pantoprazole 40 mg Oral Daily sodium chloride (PF) 5 mL Intravenous Q8H VICTORINA sodium chloride (PF) 5 mL Intravenous Q8H VICTORINA venlafaxine 150 mg Oral Daily Labs, Imaging and Studies reviewed: Results from last 7 days Lab Units 05/08/22 0340 05/07/22 1449 WBC K/mcL 12.29* 10.93 HGB g/dL 12.9 12.6 HCT % 40.1 39.9 PLT K/mcL 341 328 Results from last 7 days Lab Units 05/08/22 0340 05/07/22 1449 SODIUM mmol/L 142 140 POTASSIUM mmol/L 4.0 4.3 CHLORIDE mmol/L 106 104 BICARB mmol/L 25 21 BUN mg/dL 15 16 CREATININE mg/dL 0.90 1.11 EGFR mL/min/1.73 m2 69 54* GLUCOSE mg/dL 89 142* CALCIUM mg/dL 9.7 -- documented in this [id number] Note* [facility] - Liane Keys, PT - 05/08/2022 2:05 PM EDT PHYSICAL THERAPY VISIT VARIANCE NOTE Attempted to see patient at this time, but unable secondary to: pending EP plan for possible pacer device . Will follow up as appropriate. [id number] Note* [facility] - Ailyn Nagy, OT - 05/08/2022 8:34 AM EDT OCCUPATIONAL THERAPY VISIT VARIANCE NOTE Attempted to see patient at this time, but unable secondary to: (pending EP plan for possible pacer revision). Will follow up as appropriate. [id number] Evaluation + Plan note* Assessment & Plan Note - Gisele Dubois, MAGNETIC PROSPECTING OPERATOR - 05/08/2022 7:32 AM EDTAssociated Problem(s): Pacemaker complications, initial encounter Kristen Mann is a 72 y.o. female with a history of heart block, asthma, Type II diabetes, GERD,HLD, migraine, retinal hemorrhage and stroke who presented to [facility] 05/07/2022 with a defective pacemaker lead and syncopal episodes. EP consulted for RV lead revision. Impression: Sick sinus syndrome requiring dual lead PPM 12-15-2021. Continued chest pain and found to have high RV impedances and recommended RV lead reposition at [facility]. Echo: 11-21-2021 EF 61%, no hemodynamically significant valvular disease. Stress: 2018 No ischemia, EF 71% She underwent RV lead removal and new implantation yesterday. Plan: ok for discharge from EP standpoint after today's chest x-ray read by radiology and negative for pneumothorax. Follow up on AVS, Device restrictions reviewed with her and booklet shared with her. She is to watch video before discharge. [id number] Consult note* Gisele Dubois CNP - 05/08/2022 7:26 AM EDTAssociated Order(s): IP CONSULT TO CARDIAC ELECTROPHYSIOLOGY ELECTROPHYSIOLOGY CONSULT NOTE Patient Name: Kristen Mann Admit Date: 9001008 MR #: [id number] : 1950 Physicians: Olivier Acosta MD (Family); No ref. provider found (Referring) Assessment and Plan: Pacemaker complications, initial encounter Assessment & Plan Kristen Mann is a 72 y.o. female with a history of heart block, asthma, Type II diabetes, GERD,HLD, migraine, retinal hemorrhage and stroke who presented to [facility] 05/07/2022 with a defective pacemaker lead and syncopal episodes. EP consulted for RV lead revision. Impression: Sick sinus syndrome requiring dual lead PPM 12-15-2021. Continued chest pain and found to have high RV impedances and recommended RV lead reposition at [facility]. Echo: 11-21-2021 EF 61%, no hemodynamically significant valvular disease. Stress: 2018 No ischemia, EF 71% Plan: RV lead reposition today in EP lab. Chief Complaint/Reason for Visit: High RV amplitude had dropped and unable to pace RV. History of Present Illness: Kristen Mann is a 72 y.o. female with a history of heart block, asthma, Type II diabetes, GERD, HLD, migraine, retinal hemorrhage and stroke who presented to [facility] 05/07/2022 with a defective pacemaker lead and syncopal episodes. She was seen by Dr Hubbard in the office and a device interrogation was found to have lack of capture at high output pacing whether be bipolar or unipolar. Due to the lack of capture and her symptoms ofrecent dizziness and near syncopal episodes I think it would be best for the patient to come to the[facility]. Plan for hospitalist admission and electrophysiology consultation for potential lead revision tomorrow. The following Vizient risk variables were noted and present on admission: Cardiac Arrhythmia Please see assessment and plan for further details. History: Past Medical History: Diagnosis Date Asthma Atopy Diabetes (HCC) Eczema GERD (gastroesophageal reflux disease) Granulomatous disease (HCC) Hyperlipidemia Migraine headache Recurrent UTI 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[facility]) Tachycardia Past Surgical History: Procedure Laterality Date APPENDECTOMY CARDIAC CATHETERIZATION SECTION, CLASSIC x2 CHOLECYSTECTOMY OPEN EP - DEVICE N/A 12/20/2020 Procedure: Loop Recorder Implant; Surgeon: Lenard Das MD; Location: EP LAB; Service: Cardiovascular EP - DEVICE N/A 12/15/2021 Procedure: Pacemaker Implant (Dual PPM 12-15-21 at 0600/0800); Surgeon: Lenard Das MD; Location: EP LAB; Service: Cardiovascular EYE SURGERY HYSTERECTOMY Family History Problem Relation Age of Onset Heart disease Father Asthma Mother Social History Socioeconomic History Marital status: Number of children: 3 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 Morphine, Penicillins, and Sulfa (sulfonamide antibiotics) Home Medications: Outpatient Medications as of 05/08/2022 Medication Sig cetirizine-pseudoePHEDrine (ZyrTEC-D) 5-120 mg per tablet Take 1 tablet by mouth daily . ezetimibe (ZETIA) 10 mg tablet Take 10 mg by mouth daily . fluticasone propionate (FLONASE) 50 mcg/actuation nasal spray USE 1 SPRAY(S) IN EACH NOSTRIL TWICE DAILY insulin glargine (LANTUS) 100 unit/mL injection Inject 35 (thirty five) Units under the skin daily . insulin lispro (AdmeLOG,HumaLOG) 100 unit/mL injection Inject 8 (eight) Units under the skin 3 (three) times a day before meals Plus sliding scale: 151-200 = 7, 201-250 = 20, above 250 = 25 . metoprolol succinate (TOPROL-XL) 25 MG 24 hr tablet Take 1 (one) tablet (25 mg total) by mouth nightly . nitrofurantoin (MACRODANTIN) 25 MG capsule Take 1 (one) capsule (25 mg total) by mouth nightly Reasons: urinary tract infection prevention. oxyCODONE-acetaminophen (PERCOCET) 5-325 mg per tablet Take 1 tablet by mouth every 6 (six) hours as needed for pain 7 . venlafaxine (EFFEXOR-XR) 150 MG 24 hr capsule Take 1 (one) capsule (150 mg total) by mouth daily . albuterol 90 mcg/actuation inhaler Inhale 2 (two) puffs every 6 (six) hours as needed for wheezing . doxycycline hyclate (VIBRA-TABS) 100 MG tablet Take 1 (one) tablet (100 mg total) by mouth 2 (two) times a day . insulin aspart U-100 (NovoLOG) 100 unit/mL injection Inject under the skin 3 (three) times a day before meals Not taking . triamcinolone (KENALOG) 0.1 % cream trimethoprim (TRIMPEX) 100 mg tablet Take 100 mg by mouth daily . VITAMIN D2 50,000 unit capsule Take 50,000 Units by mouth once a week . Review of Systems: The following system(s) were reviewed and pertinent findings noted: CV:No chest pain. No ankle swelling Resp:No dyspnea. No wheezing All other systems reviewed and negative other than HPI Physical Examination: Vital Signs: BP (!) 161/91 Pulse 90 Temp 98.1 F (36.7 C) (Oral) Resp 16 Ht 5' 6.5" Wt 90.1 kg (198 lb 10.2 oz) SpO2 96% BMI 31.58 kg/m General: Alert, cooperative, no distress, appears stated age Head: Normocephalic, without obvious abnormality, atraumatic Throat: Lips, mucosa, and tongue normal; teeth and gums normal Neck: Supple, symmetrical, trachea midline, Back: Symmetric, no curvature, ROM normal, no CVA tenderness Lungs: Clear to auscultation bilaterally, respirations unlabored,normal respiratory effort Chest Wall: No tenderness or deformity Cardiovascular: Regular rate and rhythm, S1 and S2 normal, no murmur, rub or gallop; Pulses 2+ and symmetric all extremities Abdomen: Soft, non-tender, Extremities: Normal, atraumatic, no cyanosis or edema Skin: Skin color, texture, turgor normal, no rashes or lesions Musculoskeletal: Full range of motion of all extremities; no joint edema Neurologic: CNII-XII intact; normal strength, sensation and reflexes throughout Psych: Mood and affect appropriate Laboratory and Additional Data Reviewed: Laboratory 05/08/22 10:11 AM Radiology 05/08/22 10:11 AM Cardiology 05/08/22 10:11 AM Medications 05/08/22 10:11 AM Transcriptions 05/08/22 10:11 AM Associated attestation - Kelton Beckford MD - 05/08/2022 11:22 AM EDT I personally performed a [id number] diagnostic evaluation on this patient on the same calendar day as the DEXTER's evaluation. I agree with the care plan documented by the DEXTER with the following additions/comments. Assessment/Plan: Patient presents with nonfunctioning RV lead, concern for possible RV perforation. Echo this AM with no effusion. We reviewed options including doing nothing, total system extraction (less than 1 year), and RV lead revision. After reviewing the indications, risk, benefits, and alternatives patient would like to proceed with RV lead revision including placing a new lead and removing the existing RV lead. We discussed possible need for pericardial drain if she develops an effusion related to leadrevision. [id number] Note* Plan of Care - Fozia Valdez RN - 05/07/2022 11:13 PM EDT Problem: Actual or potential alteration in health Goal: Absence of healthcare acquired conditions Outcome: Partially Met Goal: Knowledge of Interdisciplinary Plan of Care Outcome: Partially Met Goal: Knowledge of Enviroment Outcome: Partially Met [id number] History and physical note* Paresh Ott, - 05/07/2022 9:45 PM EDT [facility] History and Physical Note 05/07/22 Kristen Mann 1950 [id number] Assessment/Plan: Kristen Mann is a 72 y.o. female with a history of heart block, asthma, Type II diabetes, GERD,HLD, migraine, retinal hemorrhage and stroke who presented to [facility] 05/07/2022 with a defective pacemaker lead and syncopal episodes. Chest pain: S/p PPM 12/2021 in [place]. Chest wall pain since then. CT showed possible lead migration. Evaluated by Dr. Hubbard and recommended admission and EP consult for potential lead revision. EP consulted. NPO at midnight. EKG NSR. Troponin of 34,28 respectively. Syncopal episodes: Diagnosed with 2-1 AV block. Likely secondary to pacemaker malfunction. EP consulted as above. HTN: Continued metoprolol Hx of IBS: Continued on bentyl. HLD: Continued zetia GERD: Continued on nexium. Hx of CVA: Not on any AP. Chronic pain: Continued on oxycodone Hx of depression: Continued on Effexor Hx of asthma: Continued on albuterol. Type II diabetes Mellitus: Restarted lantus and prandial insulin. Titrate and monitor prn. Recurrent UTI: On macrobid indefinitely for prophylaxis. Continued on admission. Code status: Full Code DVT Prophylaxis: SCD for procedure Current living situation: Home Expected Disposition: TBD Estimated discharge date: TBD Chief Complaint: Chest pain History of Present Illness: Patient had a pacemaker placed back in December for several syncopal episodes and falls she was having. She continues to have falls since the pacemaker was implanted. She has had chest pain with multiple ED visits and says that her pain started after the pacemaker was implanted. She saw cardiology andwas told she would need to be admitted and evaluated by EP for her pacemaker. She denies any fevers, chills, shortness of breath,She has had some abdominal pain, nausea and vomiting. She has had bowel trouble since she was a child. She has had two syncopal episodes and falls since her pacemaker wasimplanted. I discussed EP would be consulted to evaluate her pacemaker and she would also benefit from PT due to her recurrent falls. ROS: 10 systems were reviewed and negative, except as noted above. Past Medical, Surgical, Social, Family History: Past Medical History: Diagnosis Date Asthma Atopy Diabetes (HCC) Eczema GERD (gastroesophageal reflux disease) Granulomatous disease (HCC) Hyperlipidemia Migraine headache Recurrent UTI 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HCC) Tachycardia Past Surgical History: Procedure Laterality Date APPENDECTOMY CARDIAC CATHETERIZATION SECTION, CLASSIC x2 CHOLECYSTECTOMY OPEN EP - DEVICE N/A 12/20/2020 Procedure: Loop Recorder Implant; Surgeon: Lenard Das MD; Location: EP LAB; Service: Cardiovascular EP - DEVICE N/A 12/15/2021 Procedure: Pacemaker Implant (Dual PPM 12-15-21 at 0600/0800); Surgeon: Lenard Das MD; Location: [facility]; Service: Cardiovascular EYE SURGERY HYSTERECTOMY Social History Socioeconomic History Marital status: Number of children: 3 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 cholecalciferol, vitamin D3, 50 mcg (2,000 unit) Tab Take 1 (one) tablet (2,000 Units total) by mouth nightly . dicyclomine (BENTYL) 10 MG capsule Take 1 (one) capsule (10 mg total) by mouth daily as needed . ezetimibe (ZETIA) 10 mg tablet Take 10 mg by mouth daily . fluticasone propionate (FLONASE) 50 mcg/actuation nasal spray USE 1 SPRAY(S) IN EACH NOSTRIL TWICE DAILY insulin glargine (LANTUS) 100 unit/mL injection Inject 35 (thirty five) Units under the skin daily . insulin lispro (AdmeLOG,HumaLOG) 100 unit/mL injection Inject 8 (eight) Units under the skin 3 (three) times a day before meals Plus sliding scale: 151-200 = 7, 201-250 = 20, above 250 = 25 . metoprolol succinate (TOPROL-XL) 25 MG 24 hr tablet Take 1 (one) tablet (25 mg total) by mouth nightly . nitrofurantoin (MACRODANTIN) 25 MG capsule Take 1 (one) capsule (25 mg total) by mouth nightly Reasons: urinary tract infection prevention. oxyCODONE-acetaminophen (PERCOCET) 5-325 mg per tablet Take 1 tablet by mouth every 6 (six) hours as needed for pain 7 . venlafaxine (EFFEXOR-XR) 150 MG 24 hr capsule Take 1 (one) capsule (150 mg total) by mouth daily . albuterol 90 mcg/actuation inhaler Inhale 2 (two) puffs every 6 (six) hours as needed for wheezing . doxycycline hyclate (VIBRA-TABS) 100 MG tablet Take 1 (one) tablet (100 mg total) by mouth 2 (two) times a day . insulin aspart U-100 (NovoLOG) 100 unit/mL injection Inject under the skin 3 (three) times a day before meals Not taking . metFORMIN (GLUCOPHAGE-XR) 500 MG 24 hr tablet Take 1 (one) tablet (500 mg total) by mouth 2 (two) times a day Pt takes 2 tablets 2 times a day. Hold taking until 12/17/21 after pacemaker implant. . triamcinolone (KENALOG) 0.1 % cream trimethoprim (TRIMPEX) 100 mg tablet Take 100 mg by mouth daily . VITAMIN D2 50,000 unit capsule Take 50,000 Units by mouth once a week . Physical Exam: BP 123/72 (BP Location: Right arm, Patient Position: Sitting) Pulse 94 Temp 97.3 F (36.3 C) (Oral) Resp 18 Ht 5' 6.5" Wt 90.4 kg (199 lb 4.8 oz) SpO2 99% BMI 31.69 kg/m General: NAD Eyes: EOMI ENT: neck supple Cardiovascular: Regular rate. Respiratory: Clear to auscultation Gastrointestinal: Soft, non tender Genitourinary: no suprapubic tenderness Musculoskeletal: No edema Skin: warm, dry Neuro: Alert. Psych: Mood appropriate. Labs, Imaging, and Studies reviewed: Results from last 7 days Lab Units 05/07/22 1449 WBC K/mcL 10.93 HGB g/dL 12.6 HCT % 39.9 PLT K/mcL 328 Results from last 7 days Lab Units 05/07/22 1449 SODIUM mmol/L 140 POTASSIUM mmol/L 4.3 CHLORIDE mmol/L 104 BICARB mmol/L 21 BUN mg/dL 16 CREATININE mg/dL 1.11 EGFR mL/min/1.73 m2 54* GLUCOSE mg/dL 142* [id number] History and physical note* Paresh Ott DO - 05/07/2022 9:45 PM EDT [facility] History and Physical Note 05/07/22 Kristen Mann 1950 [id number] Assessment/Plan: Kristen Mann is a 72 y.o. female with a history of heart block, asthma, Type II diabetes, GERD,HLD, migraine, retinal hemorrhage and stroke who presented to [facility] 05/07/2022 with a defective pacemaker lead and syncopal episodes. Chest pain: S/p PPM 12/2021 in [place]. Chest wall pain since then. CT showed possible lead migration. Evaluated by Dr. Hubbard and recommended admission and EP consult for potential lead revision. EP consulted. NPO at midnight. EKG NSR. Troponin of 34,28 respectively. Syncopal episodes: Diagnosed with 2-1 AV block. Likely secondary to pacemaker malfunction. EP consulted as above. HTN: Continued metoprolol Hx of IBS: Continued on bentyl. HLD: Continued zetia GERD: Continued on nexium. Hx of CVA: Not on any AP. Chronic pain: Continued on oxycodone Hx of depression: Continued on Effexor Hx of asthma: Continued on albuterol. Type II diabetes Mellitus: Restarted lantus and prandial insulin. Titrate and monitor prn. Recurrent UTI: On macrobid indefinitely for prophylaxis. Continued on admission. Code status: Full Code DVT Prophylaxis: SCD for procedure Current living situation: Home Expected Disposition: TBD Estimated discharge date: TBD Chief Complaint: Chest pain History of Present Illness: Patient had a pacemaker placed back in December for several syncopal episodes and falls she was having. She continues to have falls since the pacemaker was implanted. She has had chest pain with multiple ED visits and says that her pain started after the pacemaker was implanted. She saw cardiology andwas told she would need to be admitted and evaluated by EP for her pacemaker. She denies any fevers, chills, shortness of breath,She has had some abdominal pain, nausea and vomiting. She has had bowel trouble since she was a child. She has had two syncopal episodes and falls since her pacemaker wasimplanted. I discussed EP would be consulted to evaluate her pacemaker and she would also benefit from PT due to her recurrent falls. ROS: 10 systems were reviewed and negative, except as noted above. Past Medical, Surgical, Social, Family History: Past Medical History: Diagnosis Date Asthma Atopy Diabetes (HCC) Eczema GERD (gastroesophageal reflux disease) Granulomatous disease (HCC) Hyperlipidemia Migraine headache Recurrent UTI 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[facility]) Tachycardia Past Surgical History: Procedure Laterality Date APPENDECTOMY CARDIAC CATHETERIZATION SECTION, CLASSIC x2 CHOLECYSTECTOMY OPEN EP - DEVICE N/A 12/20/2020 Procedure: Loop Recorder Implant; Surgeon: Lenard Das MD; Location: EP LAB; Service: Cardiovascular EP - DEVICE N/A 12/15/2021 Procedure: Pacemaker Implant (Dual PPM 12-15-21 at 0600/0800); Surgeon: Lenard Das MD; Location: [facility]; Service: Cardiovascular EYE SURGERY HYSTERECTOMY Social History Socioeconomic History Marital status: Number of children: 3 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 cholecalciferol, vitamin D3, 50 mcg (2,000 unit) Tab Take 1 (one) tablet (2,000 Units total) by mouth nightly . dicyclomine (BENTYL) 10 MG capsule Take 1 (one) capsule (10 mg total) by mouth daily as needed . ezetimibe (ZETIA) 10 mg tablet Take 10 mg by mouth daily . fluticasone propionate (FLONASE) 50 mcg/actuation nasal spray USE 1 SPRAY(S) IN EACH NOSTRIL TWICE DAILY insulin glargine (LANTUS) 100 unit/mL injection Inject 35 (thirty five) Units under the skin daily . insulin lispro (AdmeLOG,HumaLOG) 100 unit/mL injection Inject 8 (eight) Units under the skin 3 (three) times a day before meals Plus sliding scale: 151-200 = 7, 201-250 = 20, above 250 = 25 . metoprolol succinate (TOPROL-XL) 25 MG 24 hr tablet Take 1 (one) tablet (25 mg total) by mouth nightly . nitrofurantoin (MACRODANTIN) 25 MG capsule Take 1 (one) capsule (25 mg total) by mouth nightly Reasons: urinary tract infection prevention. oxyCODONE-acetaminophen (PERCOCET) 5-325 mg per tablet Take 1 tablet by mouth every 6 (six) hours as needed for pain 7 . venlafaxine (EFFEXOR-XR) 150 MG 24 hr capsule Take 1 (one) capsule (150 mg total) by mouth daily . albuterol 90 mcg/actuation inhaler Inhale 2 (two) puffs every 6 (six) hours as needed for wheezing . doxycycline hyclate (VIBRA-TABS) 100 MG tablet Take 1 (one) tablet (100 mg total) by mouth 2 (two) times a day . insulin aspart U-100 (NovoLOG) 100 unit/mL injection Inject under the skin 3 (three) times a day before meals Not taking . metFORMIN (GLUCOPHAGE-XR) 500 MG 24 hr tablet Take 1 (one) tablet (500 mg total) by mouth 2 (two) times a day Pt takes 2 tablets 2 times a day. Hold taking until 12/17/21 after pacemaker implant. . triamcinolone (KENALOG) 0.1 % cream trimethoprim (TRIMPEX) 100 mg tablet Take 100 mg by mouth daily . VITAMIN D2 50,000 unit capsule Take 50,000 Units by mouth once a week . Physical Exam: BP 123/72 (BP Location: Right arm, Patient Position: Sitting) Pulse 94 Temp 97.3 F (36.3 C) (Oral) Resp 18 Ht 5' 6.5" Wt 90.4 kg (199 lb 4.8 oz) SpO2 99% BMI 31.69 kg/m General: NAD Eyes: EOMI ENT: neck supple Cardiovascular: Regular rate. Respiratory: Clear to auscultation Gastrointestinal: Soft, non tender Genitourinary: no suprapubic tenderness Musculoskeletal: No edema Skin: warm, dry Neuro: Alert. Psych: Mood appropriate. Labs, Imaging, and Studies reviewed: Results from last 7 days Lab Units 05/07/22 1449 WBC K/mcL 10.93 HGB g/dL 12.6 HCT % 39.9 PLT K/mcL 328 Results from last 7 days Lab Units 05/07/22 1449 SODIUM mmol/L 140 POTASSIUM mmol/L 4.3 CHLORIDE mmol/L 104 BICARB mmol/L 21 BUN mg/dL 16 CREATININE mg/dL 1.11 EGFR mL/min/1.73 m2 54* GLUCOSE mg/dL 142* documented in this [id number] Note* ED Procedure Note - Bobby Tan MD - 05/07/2022 6:35 PM EDTAssociated Order(s): EKG 12-lead EKG 12-lead Date/Time: 05/07/2022 6:35 PM Performed by: Bobby Tan MD Authorized by: Bobby Tan MD Interpreted by ED attending physician Comparison: compared with previous ECG Rhythm: sinus rhythm BPM: 90 Conduction: conduction normal ST Segments: ST segments normal QRS axis: normal T Waves: T waves normal RI Interval: 164 QRS Interval: 70 QT Interval: 455 Clinical impression: normal ECG [id number] Physician Emergency department Note* Bobby Tan MD - 05/07/2022 6:33 PM EDT PCP: Olivier Acosta MD Chief Complaint Patient presents with Chest Pain HPI: Ms Mann is a 72-year-old female who presents to the ER today with concerns of complications from a pacemaker lead wire. Patient had 6-second pause of 2-1 block February 2021 found on her loop recorder.Additional episode in September of this year lasting 10 seconds. She is having current episodes of bradycardia and dizziness lowest heart rate noted down to 32 bpm. She had a dual-chamber pacer implanted with loop recorder removal December 15, 2021. She endorsed thatshe had episodes of chest pain since that time, pleuritic in nature, noncardiac by description nature. Episodes as well continued with orthostatic hypotension frequently. She has had return trips to the ER after this implant removal. A CT scan had noted that the tip of the lead wire appear to migrate into or through the myocardium. She has followed with electrophysiology outpatient including today, plans for admit with plans for lead revision tomorrow. Currently at rest she is awake alert appropriate. Says she feels occasional palpitations at rest anabela the lobby, EKG is nonischemic on arrival. Denies exertional shortness of breath jaw shoulder tightness or nausea with any of his episodes. Declines any medication for pain at this time in the ED. REVIEW OF SYSTEMS: Review of Systems Constitutional: Negative for chills, diaphoresis, fatigue and fever. Respiratory: Negative for chest tightness and shortness of breath. Cardiovascular: Positive for chest pain. Gastrointestinal: Negative for nausea and vomiting. Musculoskeletal: Negative for back pain, myalgias, neck pain and neck stiffness. Skin: Negative for color change, pallor, rash and wound. Neurological: Positive for light-headedness. Negative for weakness, numbness and headaches. Hematological: Negative for adenopathy. Does not bruise/bleed easily. Psychiatric/Behavioral: Negative for confusion. All other systems reviewed and are negative. Past Medical History: Past Medical History: Diagnosis Date Asthma Atopy Diabetes (HCC) Eczema GERD (gastroesophageal reflux disease) Granulomatous disease (HCC) Hyperlipidemia Migraine headache Recurrent UTI 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HCC) Tachycardia Past medical history reviewed. Past Surgical History: Past Surgical History: Procedure Laterality Date APPENDECTOMY CARDIAC CATHETERIZATION SECTION, CLASSIC x2 CHOLECYSTECTOMY OPEN EP - DEVICE N/A 12/20/2020 Procedure: Loop Recorder Implant; Surgeon: Lenard Das MD; Location: [facility]; Service: Cardiovascular EP - DEVICE N/A 12/15/2021 Procedure: Pacemaker Implant (Dual PPM 12-15-21 at 0600/0800); Surgeon: Lenard Das MD; Location: [facility]; Service: Cardiovascular EYE SURGERY HYSTERECTOMY Past surgical history reviewed. Family History: Family History Problem Relation Age of Onset Heart disease Father Asthma Mother Family history reviewed. 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 Allergies: Allergies Allergen Reactions Morphine Shortness Of Breath Penicillins Rash Sulfa (Sulfonamide Antibiotics) Hives Medications: Home Medication Instructions Prior to Surgery TAKE these medications Take last dose on Take the morning of surgery Comment(s) albuterol 90 mcg/actuation inhaler Inhale 2 (two) puffs every 6 (six) hours as needed for wheezing . cetirizine-pseudoePHEDrine 5-120 mg per tablet Take 1 tablet by mouth daily . Commonly known as: ZyrTEC-D doxycycline hyclate 100 MG tablet Take 1 (one) tablet (100 mg total) by mouth 2 (two) times a day . Commonly known as: VIBRA-TABS ezetimibe 10 mg tablet Take 10 mg by mouth daily . Commonly known as: ZETIA fluticasone propionate 50 mcg/actuation nasal spray USE 1 SPRAY(S) IN EACH NOSTRIL TWICE DAILY Commonly known as: FLONASE insulin aspart U-100 100 unit/mL injection Inject under the skin 3 (three) times a day before meals Not taking . Commonly known as: NovoLOG insulin glargine 100 unit/mL injection Inject 30 Units under the skin daily . Commonly known as: LANTUS insulin lispro 100 unit/mL injection Inject under the skin 3 (three) times a day before meals Sliding scale before meals . Commonly known as: AdmeLOG,HumaLOG metFORMIN 500 MG 24 hr tablet Take 1 (one) tablet (500 mg total) by mouth 2 (two) times a day Pt takes 2 tablets 2 times a day. Hold taking until 12/17/21 after pacemaker implant. . Commonly known as: GLUCOPHAGE-XR metoprolol succinate 25 MG 24 hr tablet Take 25 mg by mouth daily . Commonly known as: TOPROL-XL nitrofurantoin 25 MG capsule Take 25 mg by mouth nightly WHITAKER recurrent UTIs . Commonly known as: MACRODANTIN oxyCODONE-acetaminophen 5-325 mg per tablet Take 1 tablet by mouth every 6 (six) hours as needed for pain 7 . Commonly known as: PERCOCET triamcinolone 0.1 % cream Commonly known as: KENALOG trimethoprim 100 mg tablet Take 100 mg by mouth daily . Commonly known as: TRIMPEX venlafaxine 150 MG 24 hr capsule Commonly known as: EFFEXOR-XR Vitamin D2 1,250 mcg (50,000 unit) capsule Generic drug: ergocalciferol Take 50,000 Units by mouth once a week . PHYSICAL EXAMINATION: Vital Signs BP 123/72 (BP Location: Right arm, Patient Position: Sitting) Pulse 94 Temp 97.3 F (36.3 C) (Oral) Resp 18 Ht 5' 6.5" Wt 90.4 kg (199 lb 4.8 oz) SpO2 99% BMI 31.69 kg/m Physical Exam Vitals and nursing note reviewed. Constitutional: Appearance: She is not diaphoretic. Eyes: General: No scleral icterus. Pupils: Pupils are equal, round, and reactive to light. Neck: Comments: Small abrasion to right neck, patient relates from dressing and that she scratched her neck today. No JVD. Cardiovascular: Rate and Rhythm: Normal rate and regular rhythm. Heart sounds: Normal heart sounds. No murmur heard. No friction rub. No gallop. Pulmonary: Effort: Pulmonary effort is normal. Breath sounds: Normal breath sounds. No stridor. No wheezing, rhonchi or rales. Comments: Clear lungs. No splinting. Chest nontender. No overlying discoloration of the chest wall. Chest: Chest wall: No tenderness. Abdominal: General: Abdomen is flat. Palpations: Abdomen is soft. Musculoskeletal: Right lower leg: No edema. Left lower leg: No edema. Skin: General: Skin is warm. Coloration: Skin is not pale. Findings: No erythema or rash. Neurological: General: No focal deficit present. Mental Status: She is alert and oriented to person, place, and time. Vital Signs During ED Visit (as charted by nursing) Patient Vitals for the past 24 hrs: BP Temp Temp src Pulse Resp SpO2 Height Weight 05/07/22 1949 -- -- -- 94 18 99 % -- -- 05/07/22 1428 123/72 97.3 F (36.3 C) Oral 89 16 96 % 5' 6.5" 90.4 kg (199 lb 4.8 oz) MEDICAL DECISION MAKING: Ms Mann, update: Cardiac pacer lead complication: Appears to have migrated through right ventricular wall. No significant cardiomegaly or pleural effusion noted on portable chest x-ray. Does not warrant repeat CT scan at this time. No current pain or shortness of breath. bus monitor for any signs of dysrhythmia, currently sinus rhythm on EKG. Declined pain medication Admit with medicine. EP consult for lead revision. Near syncope/orthostatic dizziness: Most recent event was several weeks prior per patient. He patient hydrated with IV fluids, cardiac cath technician and limit ambulation off monitoring and evaluation advisor. Elevated troponin: Nondescript. Ordered in triage per nursing protocol given symptoms of chest pain though she denies true anginal COVID symptoms likely does not require further monitoring. Possibly related to the pacer lead migration. Chronic kidney disease: Stable if not slight improvement of GFR. Hydrate to remain euvolemic. IMPRESSION: 1. Complication associated with cardiac pacemaker lead, initial encounter 2. Near syncope 3. Orthostatic dizziness 4. Elevated troponin 5. Stage 3a chronic kidney disease (HCC) DIAGNOSTICS: Laboratory (if any, during ED visit): Labs Reviewed CHEM 7 - Abnormal; Notable for the following components: Result Value Glucose 142 (*) eGFR 54 (*) All other components within normal limits Narrative: [facility] has implemented the eGFR calculation approach that does not have a coefficient for race that conforms to the NKF-ASN Task Force Recommendations. TROPONIN - Abnormal; Notable for the following components: Troponin T 34 (*) All other components within normal limits TROPONIN - Abnormal; Notable for the following components: Troponin T 28 (*) All other components within normal limits CBC WITH AUTO DIFFERENTIAL - Abnormal; Notable for the following components: MPV 9.3 (*) Neutrophils Abs 7.36 (*) Monocytes Abs 0.97 (*) All other components within normal limits CBC AND DIFFERENTIAL Narrative: The following orders were created for panel order CBC w/ Diff. Procedure Abnormality Status --------- ------ CBC Auto Differential[[id number]] Abnormal Final result Please view results for these tests on the individual orders. RADIOGRAPHIC IMAGING (if any, during ED visit): XR Chest 1 View Final Result No radiographic evidence for acute cardiopulmonary disease on this single view of the chest. Workstation ID: [id number] MEDICATIONS ORDERED/GIVEN (if any, during ED visit): Medications sodium chloride (PF) (NS) flush 5 mL (has no administration in time range) And sodium chloride 0.9% (NS) (has no administration in time range) The loan secretary of Health and Human Services and Pasha Tijerina, governor of the [facility], have declared a state of public health emergency due to the spread of a novel coronavirus and disease COVID-19. Treatment is primarily conservative measures and respiratory support if appropriate; Decadron isonly shown to improve outcomes if supplemental oxygen is required, potential harmful if oxygen not required. Other medicines are experimental or under emergency use authorization for inpatient only at this time. This has led to significant resource scarcity and potential delays in care. PPE worn during exam. Patient wore a mask during exam. Bobby Tan MD 05/07/222044 [place] Work Phone: [phone] 315-309709-01-2022 Emergency department Note* Bobby Tan MD - 05/07/2022 6:33 PM EDT PCP: Olivier Acosta MD Chief Complaint Patient presents with Chest Pain HPI: Ms Mann is a 72-year-old female who presents to the ER today with concerns of complications from a pacemaker lead wire. Patient had 6-second pause of 2-1 block February 2021 found on her loop recorder.Additional episode in September of this year lasting 10 seconds. She is having current episodes of bradycardia and dizziness lowest heart rate noted down to 32 bpm. She had a dual-chamber pacer implanted with loop recorder removal December 15, 2021. She endorsed thatshe had episodes of chest pain since that time, pleuritic in nature, noncardiac by description nature. Episodes as well continued with orthostatic hypotension frequently. She has had return trips to the ER after this implant removal. A CT scan had noted that the tip of the lead wire appear to migrate into or through the myocardium. She has followed with electrophysiology outpatient including today, plans for admit with plans for lead revision tomorrow. Currently at rest she is awake alert appropriate. Says she feels occasional palpitations at rest anabela the lobby, EKG is nonischemic on arrival. Denies exertional shortness of breath jaw shoulder tightness or nausea with any of his episodes. Declines any medication for pain at this time in the ED. REVIEW OF SYSTEMS: Review of Systems Constitutional: Negative for chills, diaphoresis, fatigue and fever. Respiratory: Negative for chest tightness and shortness of breath. Cardiovascular: Positive for chest pain. Gastrointestinal: Negative for nausea and vomiting. Musculoskeletal: Negative for back pain, myalgias, neck pain and neck stiffness. Skin: Negative for color change, pallor, rash and wound. Neurological: Positive for light-headedness. Negative for weakness, numbness and headaches. Hematological: Negative for adenopathy. Does not bruise/bleed easily. Psychiatric/Behavioral: Negative for confusion. All other systems reviewed and are negative. Past Medical History: Past Medical History: Diagnosis Date Asthma Atopy Diabetes (HCC) Eczema GERD (gastroesophageal reflux disease) Granulomatous disease (HCC) Hyperlipidemia Migraine headache Recurrent UTI 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HCC) Tachycardia Past medical history reviewed. Past Surgical History: Past Surgical History: Procedure Laterality Date APPENDECTOMY CARDIAC CATHETERIZATION SECTION, CLASSIC x2 CHOLECYSTECTOMY OPEN EP - DEVICE N/A 12/20/2020 Procedure: Loop Recorder Implant; Surgeon: Lenard Das MD; Location: EP LAB; Service: Cardiovascular EP - DEVICE N/A 12/15/2021 Procedure: Pacemaker Implant (Dual PPM 12-15-21 at 0600/0800); Surgeon: Lenard Das MD; Location: EP LAB; Service: Cardiovascular EYE SURGERY HYSTERECTOMY Past surgical history reviewed. Family History: Family History Problem Relation Age of Onset Heart disease Father Asthma Mother Family history reviewed. 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 Allergies: Allergies Allergen Reactions Morphine Shortness Of Breath Penicillins Rash Sulfa (Sulfonamide Antibiotics) Hives Medications: Home Medication Instructions Prior to Surgery TAKE these medications Take last dose on Take the morning of surgery Comment(s) albuterol 90 mcg/actuation inhaler Inhale 2 (two) puffs every 6 (six) hours as needed for wheezing . cetirizine-pseudoePHEDrine 5-120 mg per tablet Take 1 tablet by mouth daily . Commonly known as: ZyrTEC-D doxycycline hyclate 100 MG tablet Take 1 (one) tablet (100 mg total) by mouth 2 (two) times a day . Commonly known as: VIBRA-TABS ezetimibe 10 mg tablet Take 10 mg by mouth daily . Commonly known as: ZETIA fluticasone propionate 50 mcg/actuation nasal spray USE 1 SPRAY(S) IN EACH NOSTRIL TWICE DAILY Commonly known as: FLONASE insulin aspart U-100 100 unit/mL injection Inject under the skin 3 (three) times a day before meals Not taking . Commonly known as: NovoLOG insulin glargine 100 unit/mL injection Inject 30 Units under the skin daily . Commonly known as: LANTUS insulin lispro 100 unit/mL injection Inject under the skin 3 (three) times a day before meals Sliding scale before meals . Commonly known as: AdmeLOG,HumaLOG metFORMIN 500 MG 24 hr tablet Take 1 (one) tablet (500 mg total) by mouth 2 (two) times a day Pt takes 2 tablets 2 times a day. Hold taking until 12/17/21 after pacemaker implant. . Commonly known as: GLUCOPHAGE-XR metoprolol succinate 25 MG 24 hr tablet Take 25 mg by mouth daily . Commonly known as: TOPROL-XL nitrofurantoin 25 MG capsule Take 25 mg by mouth nightly WHITAKER recurrent UTIs . Commonly known as: MACRODANTIN oxyCODONE-acetaminophen 5-325 mg per tablet Take 1 tablet by mouth every 6 (six) hours as needed for pain 7 . Commonly known as: PERCOCET triamcinolone 0.1 % cream Commonly known as: KENALOG trimethoprim 100 mg tablet Take 100 mg by mouth daily . Commonly known as: TRIMPEX venlafaxine 150 MG 24 hr capsule Commonly known as: EFFEXOR-XR Vitamin D2 1,250 mcg (50,000 unit) capsule Generic drug: ergocalciferol Take 50,000 Units by mouth once a week . PHYSICAL EXAMINATION: Vital Signs BP 123/72 (BP Location: Right arm, Patient Position: Sitting) Pulse 94 Temp 97.3 F (36.3 C) (Oral) Resp 18 Ht 5' 6.5" Wt 90.4 kg (199 lb 4.8 oz) SpO2 99% BMI 31.69 kg/m Physical Exam Vitals and nursing note reviewed. Constitutional: Appearance: She is not diaphoretic. Eyes: General: No scleral icterus. Pupils: Pupils are equal, round, and reactive to light. Neck: Comments: Small abrasion to right neck, patient relates from dressing and that she scratched her neck today. No JVD. Cardiovascular: Rate and Rhythm: Normal rate and regular rhythm. Heart sounds: Normal heart sounds. No murmur heard. No friction rub. No gallop. Pulmonary: Effort: Pulmonary effort is normal. Breath sounds: Normal breath sounds. No stridor. No wheezing, rhonchi or rales. Comments: Clear lungs. No splinting. Chest nontender. No overlying discoloration of the chest wall. Chest: Chest wall: No tenderness. Abdominal: General: Abdomen is flat. Palpations: Abdomen is soft. Musculoskeletal: Right lower leg: No edema. Left lower leg: No edema. Skin: General: Skin is warm. Coloration: Skin is not pale. Findings: No erythema or rash. Neurological: General: No focal deficit present. Mental Status: She is alert and oriented to person, place, and time. Vital Signs During ED Visit (as charted by nursing) Patient Vitals for the past 24 hrs: BP Temp Temp src Pulse Resp SpO2 Height Weight 05/07/22 1949 -- -- -- 94 18 99 % -- -- 05/07/22 1428 123/72 97.3 F (36.3 C) Oral 89 16 96 % 5' 6.5" 90.4 kg (199 lb 4.8 oz) MEDICAL DECISION MAKING: Ms Mann, update: Cardiac pacer lead complication: Appears to have migrated through right ventricular wall. No significant cardiomegaly or pleural effusion noted on portable chest x-ray. Does not warrant repeat CT scan at this time. No current pain or shortness of breath. bus monitor for any signs of dysrhythmia, currently sinus rhythm on EKG. Declined pain medication Admit with medicine. EP consult for lead revision. Near syncope/orthostatic dizziness: Most recent event was several weeks prior per patient. He patient hydrated with IV fluids, cardiac cath technician and limit ambulation off monitoring and evaluation advisor. Elevated troponin: Nondescript. Ordered in triage per nursing protocol given symptoms of chest pain though she denies true anginal COVID symptoms likely does not require further monitoring. Possibly related to the pacer lead migration. Chronic kidney disease: Stable if not slight improvement of GFR. Hydrate to remain euvolemic. IMPRESSION: 1. Complication associated with cardiac pacemaker lead, initial encounter 2. Near syncope 3. Orthostatic dizziness 4. Elevated troponin 5. Stage 3a chronic kidney disease (HCC) DIAGNOSTICS: Laboratory (if any, during ED visit): Labs Reviewed CHEM 7 - Abnormal; Notable for the following components: Result Value Glucose 142 (*) eGFR 54 (*) All other components within normal limits Narrative: [facility] has implemented the eGFR calculation approach that does not have a coefficient for race that conforms to the NKF-ASN Task Force Recommendations. TROPONIN - Abnormal; Notable for the following components: Troponin T 34 (*) All other components within normal limits TROPONIN - Abnormal; Notable for the following components: Troponin T 28 (*) All other components within normal limits CBC WITH AUTO DIFFERENTIAL - Abnormal; Notable for the following components: MPV 9.3 (*) Neutrophils Abs 7.36 (*) Monocytes Abs 0.97 (*) All other components within normal limits CBC AND DIFFERENTIAL Narrative: The following orders were created for panel order CBC w/ Diff. Procedure Abnormality Status --------- ------ CBC Auto Differential[[id number]] Abnormal Final result Please view results for these tests on the individual orders. RADIOGRAPHIC IMAGING (if any, during ED visit): XR Chest 1 View Final Result No radiographic evidence for acute cardiopulmonary disease on this single view of the chest. Workstation ID: [id number] MEDICATIONS ORDERED/GIVEN (if any, during ED visit): Medications sodium chloride (PF) (NS) flush 5 mL (has no administration in time range) And sodium chloride 0.9% (NS) (has no administration in time range) The loan secretary of Health and Human Services and Pasha Tijerina, governor of the [facility], have declared a state of public health emergency due to the spread of a novel coronavirus and disease COVID-19. Treatment is primarily conservative measures and respiratory support if appropriate; Decadron isonly shown to improve outcomes if supplemental oxygen is required, potential harmful if oxygen not required. Other medicines are experimental or under emergency use authorization for inpatient only at this time. This has led to significant resource scarcity and potential delays in care. PPE worn during exam. Patient wore a mask during exam. Bobby Tan MD 05/07/222044 * Danielle Medina RN - 05/07/2022 2:04 PM EDT Patient ambulates to triage with complaint chest discomfort. Patient states that she saw her health concierge and was told to come here for possible pacemaker replacement. documented in this [id number] Emergency department Triage note* Danielle Medina RN - 05/07/2022 2:04 PM EDT Patient ambulates to triage with complaint chest discomfort. Patient states that she saw her health concierge and was told to come here for possible pacemaker replacement. [id number] History of Present illness Narrative* Radha Hubbard DO - 05/07/2022 1:36 PM EDT 72-year-old female with history of dual-chamber pacemaker implant back in December. This was completedfor 2-1 AV block and symptomatic bradycardia episodes. Unfortunately patient started to have episodes of chest discomfort about a week later after her pacemaker implant. She has had 2 ED visits sincethen for chest discomfort. Echocardiogram showed no overt effusion. She has been having more what sounds like pleural discomfort. Her CT scan oddly enough shows potential lead migration outside of the RV wall. Today in the office patient arrived for device check and consultation. On device interrogation was found to have lack of capture at high output pacing whether be bipolar or unipolar. Due to the lack of capture and her symptoms of recent dizziness and near syncopal episodes I think it would be best for the patient to come to the emergency department at [facility]. Plan for hospitalist admission and electrophysiology consultation for potential lead revision tomorrow. Will notify EP team in the hospital. Radha Hubbard D.O. [facility] Electrophysiology * Radha Hubbard DO - 05/07/2022 1:20 PM EDT Electrophysiology Clinic CONSULT Heart & Vascular [facility] 05/07/2022 Radha Hubbard DO [address] [facility] [address] Patient: Kristen Mann Date of : 1950 (72 y.o.) PCP: Olivier Acosta MD Assessment & Plan Assessment: AV block history Syncope Plan: Patient presenting for consultation regarding recent pacemaker implant back in December with chest pain. On device interrogation she was found to have lack of capture at high output pacing from the RV lead on a unipolar or bipolar setting. Patient's implant reasons were for AV block noted in the morning on her loop recorder for 6 seconds. Since her implant a week later she started to have some chestpain and 2 visits to the ED for chest discomfort. After further review of her CT scan and her device interrogation today I believe that the RV lead has perforated through the myocardium. For these reasons and the fact the patient is having dizziness and some near syncopal episodes at home post implant I would recommend a visit to the ED for admission and lead revision prior to going home. Patient's sister accompanies her today and agrees with the plan as well they are both comfortable with the plan and are going to go to the emergency department after our conversation. Follow-up: No follow-ups on file. Chief Complaint: No chief complaint on file. Subjective History of Present Illness: Kristen Mann is a 72 y.o. 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 Consultation is from Dr. Campos. Patient has a [employer] dual- chamber pacemaker implanted December 2021 last report shows 1% RV pacing. Patient was evaluated in the device clinic. The team was concerned that there was no capture of theRV lead at high output. On arrival I asked the team to assess the RV capture with unipolar high output pacing. This also did not show any capture as well. After troubleshooting the device I discussedwith the patient regarding her symptoms. Patient notes that recently she has been having more dizziness and near syncopal episodes. Post implant she started having chest pain and discomfort a week out. She also has been to the hospital a few times since implant due to chest pain. No palpitations or SOB currently. Family History: No history of sudden cardiac . Past Cardiac Results: ECG Sinus Rhythm Device interrogation: lack of capture noted at high output pacing bipolar and unipolar. Objective Tobacco Use Smoking Status Never Smokeless Tobacco Never Imaging: I independently reviewed the EKG and agree with the interpretation(s) with the following comments. EKG 12-lead Final Result by Saeid Birmingham DO (12/30/2021 0144) Echocardiogram limited Final Result by Patricia Dowling MD (12/23/2021 1502) Echocardiogram complete w contrast Final Result by Patricia Dowling MD (11/21/2021 1405) Echocardiogram complete Final Result by Marcia Barrientos MD (02/09/2018 1023) Transesophageal Echocardiogram Final Result by Axel Soares MD (10/16/2015 0935) HOME Medications: Patient's Medications New Prescriptions No medications on file Previous Medications ALBUTEROL 90 MCG/ACTUATION INHALER Inhale 2 (two) puffs every 6 (six) hours as needed for wheezing . CETIRIZINE-PSEUDOEPHEDRINE (ZYRTEC-D) 5-120 MG PER TABLET Take 1 tablet by mouth daily . DOXYCYCLINE HYCLATE (VIBRA-TABS) 100 MG TABLET Take 1 (one) tablet (100 mg total) by mouth 2 (two) times a day . EZETIMIBE (ZETIA) 10 MG TABLET Take 10 mg by mouth daily . FLUTICASONE PROPIONATE (FLONASE) 50 MCG/ACTUATION NASAL SPRAY USE 1 SPRAY(S) IN EACH NOSTRIL TWICE DAILY INSULIN ASPART U-100 (NOVOLOG) 100 UNIT/ML INJECTION Inject under the skin 3 (three) times a day before meals Not taking . INSULIN GLARGINE (LANTUS) 100 UNIT/ML INJECTION Inject 30 Units under the skin daily . INSULIN LISPRO (ADMELOG,HUMALOG) 100 UNIT/ML INJECTION Inject under the skin 3 (three) times a day before meals Sliding scale before meals . METFORMIN (GLUCOPHAGE-XR) 500 MG 24 HR TABLET Take 1 (one) tablet (500 mg total) by mouth 2 (two) times a day Pt takes 2 tablets 2 times a day. Hold taking until 12/17/21 after pacemaker implant. . METOPROLOL SUCCINATE (TOPROL-XL) 25 MG 24 HR TABLET Take 25 mg by mouth daily . NITROFURANTOIN (MACRODANTIN) 25 MG CAPSULE Take 25 mg by mouth nightly WHITAKER recurrent UTIs . OXYCODONE-ACETAMINOPHEN (PERCOCET) 5-325 MG PER TABLET Take 1 tablet by mouth every 6 (six) hours as needed for pain 7 . TRIAMCINOLONE (KENALOG) 0.1 % CREAM TRIMETHOPRIM (TRIMPEX) 100 MG TABLET Take 100 mg by mouth daily . VENLAFAXINE (EFFEXOR-XR) 150 MG 24 HR CAPSULE VITAMIN D2 50,000 UNIT CAPSULE Take 50,000 Units by mouth once a week . Modified Medications No medications on file Discontinued Medications No medications on file Physical Examination: There were no vitals taken for this visit. Review of Systems: The following system(s) were reviewed and pertinent findings noted Constitutional: No acute distress Skin: No concerns Eyes: No acute vision changes CV: Denies chest pain or palpitations Resp: Denies any SOB GI: Denies hematochezia, melena, abdominal bloating : No hemarturia or urinary symptoms MSK: Denies acute MSK pain Neuro: No acute neuro deficits Psych: No acute concerns Lab Results Component Value Date CHOL 227 (H) 02/09/2018 LDLCALC 135 (H) 02/09/2018 TRIG 194 (H) 02/09/2018 HDL 53 02/09/2018 Serum creatinine: 1.11 mg/dL 05/07/22 1449 Estimated creatinine clearance: 45 mL/min documented in this [id number] History of Present illness Narrative* Ronda Scott MD - 03/30/2022 10:49 AM EDT Kristen Mann is a 72 year old female who presents for problem visit for f/u JUS 3. HPI: denies itching or burning. Has been struggling w/ pain in chest since pacemaker placed in December. Has a f/u scheduled but not until May. OB History T2 L2 SAB0 IAB0 Ectopic0 Multiple0 Live Births0 Comment: 1 adopted child Jewel Grinder History LMP: Hysterectomy Age at Menarche: Age at First : Age at Menopause: Jewel Grinder History Comments: Sexual Activity: Not Currently; No partner data on record Contraception: No contraception data on record PAST MEDICAL HISTORY Diagnosis Date Abnormal mammogram of both breasts 04/15/2021 Dyspareunia PMH - PAST MEDICAL HISTORY OF asthma PMH - PAST MEDICAL HISTORY OF migraines PMH - PAST MEDICAL HISTORY OF RETINOPATHY, CATARACTS Type II or unspecified type diabetes mellitus with ophthalmic manifestations, 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) PAST SURGICAL HISTORY Procedure Laterality Date BREAST BIOPSY NEEDLE RIGHT 2004 fibroadenoma Rt DELIVERY ONLY 74,80 x 2 CHOLECYSTECTOMY 93 COLONOSCOPY FLX DX W/COLLJ SPEC WHEN PFRMD 02/21/13 normal colon 10 yr follow up EGD TRANSORAL BIOPSY SINGLE/MULTIPLE 02/21/13 gastritis PAST SURGICAL HISTORY OF 82 salpingo-oophorectomy PAST SURGICAL HISTORY OF 3916-1341 LASER EYE SURGERY bilateral TOTAL ABDOMINAL HYSTERECT W/WO RMVL TUBE OVARY 82 FAMILY HISTORY Problem Relation Age of Onset Coronary Artery Disease Father Breast Cancer Maternal Grandmother grandmother (side?) Diabetes Maternal Grandmother grandmother (side?) Breast Cancer Maternal Aunt aunt (x2 Social History Tobacco Use Smoking status: Never Smoker Smokeless tobacco: Never Used Vaping Use Vaping Use: Never used Substance Use Topics Alcohol use: Yes Comment: rarely Drug use: No Current Outpatient Medications Medication Sig dupilumab (DUPIXENT PEN SUBCUTANEOUS) Inject subcutaneously. ondansetron (ZOFRAN) 4 mg tablet TAKE 1 TABLET BY MOUTH TWICE DAILY NEEDED. ONLY TAKE IF NEEDED FOR NAUSEA. MAY INTERFERE WITH OTHER MEDICATIONS ARIPiprazole (ABILIFY) 2 mg tablet Take 2 mg by mouth once daily. metoprolol succinate ER (TOPROL XL) 25 mg 24 hr tablet Take 12.5 mg by mouth. ezetimibe (ZETIA) 10 mg tablet oxyCODONE-acetaminophen (PERCOCET) 5-325 mg tablet Take 1 tablet by mouth twice daily. venlafaxine ER (EFFEXOR XR) 150 mg 24 hr capsule Take 150 mg by mouth once daily. insulin lispro (HUMALOG KWIKPEN) 100 unit/mL pen Inject subcutaneously three times daily before meals. cholecalciferol, vitamin D3, (VITAMIN D3 ORAL) Take 1,000 mg by mouth one time a week. nitrofurantoin (MACRODANTIN) 25 mg capsule Take 25 mg by mouth. triamcinolone acetonide (KENALOG) 0.1 % cream Apply 1 application to affected area three times daily. Apply sparingly to area for rash/itching. insulin glargine (LANTUS) 100 unit/mL injection Inject 25 Units subcutaneously daily at bedtime. METFORMIN HCL (METFORMIN ORAL) Take 500 mg by mouth twice daily. betamethasone dipropionate, augmented (DIPROLENE) 0.05 % cream APPLY TO THE AFFECTED AREAS OF THE EXTREMITIES TWICE DAILY FOR 14 DAYS. metoclopramide HCl (REGLAN) 5 mg tablet benzonatate (TESSALON PERLES) 100 mg capsule Take 1-2 capsules by mouth three times daily as neededfor Cough. (Patient not taking: Reported on 03/14/2021 ) Hydrochlorothiazide 12.5 mg capsule Take 12.5 mg by mouth once daily. (Patient not taking: Reportedon 03/14/2021 ) amitriptyline (ELAVIL) 10 mg tablet Take 10 mg by mouth daily at bedtime. (Patient not taking: Reported on 03/14/2021 ) fluticasone-vilanterol (BREO ELLIPTA) 100-25 mcg/dose inhaler Inhale 1 Inhalation as instructed once daily. (Patient not taking: Reported on 10/17/2021 ) Insulin Lispro, Human, (HUMALOG KWIKPEN) 100 unit/mL inpn Inject 5 Units subcutaneously twice dailybefore meals. (Patient not taking: Reported on 04/24/2021 ) meloxicam (MOBIC) 15 mg tablet Take 1 tablet by mouth once daily. With food. (Patient not taking: Reported on 04/15/2021 ) CITALOPRAM 40 mg tablet once daily. (Patient not taking: Reported on 10/17/2021 ) Cephalexin 500 mg Tab Take by mouth. (Patient not taking: Reported on 04/15/2021 ) SINGULAIR 10 MG TAB (Patient not taking: ) HYDROCHLOROTHIAZIDE 50 MG TAB (Patient not taking: ) ADVAIR DISKUS 500 MCG-50 MCG/DOSE FOR INHALATION (Patient not taking: ) No current facility-administered medications for this visit. Allergies As of Date: 03/30/2022 Allergen Noted Reaction MORPHINE 02/02/2013 Other: See Comments PENICILLINS 07/19/2006 Hives SULFA (SULFONAMIDE ANTIBIOTICS) 07/19/2006 Hives Fully Assessed 03/30/2022 Allergies and current medication updated:Yes EXAM: There were no vitals taken for this visit. GENERAL: pleasant, female in no apparent distress PELVIC: external genitalia normal, normal Bartholin's glands, urethra, Argo's glands, no vulvar lesions, no cervical lesions, good vaginal support, physiologic discharge present, normal appearing perineal body and perianal region, no hyper or hypopigementation. Vagina is smooth, no lesions, cervix absent ASSESSMENT AND PLAN: JUS III, no lesiosn now. F/u in 6 months or prn Medical Decision Making Ronda Scott MD [facility] History of Present illness Narrative* Shakeel Aggarwal RN - 02/24/2022 11:26 AM EDT Pt saw Dr Campos today and wishes to get a second opinion from [facility]. I talked with pt and updated her that she has an appt next week with Dr. Das and a date saved for a lead revision. Pt would like to cancel everything here with EP and follow up in [facility] sent to [facility] and all Ep things up here cancelled. documented in this [id number] History of Present illness Narrative* Eliecer Hill CNP - 02/12/2022 4:04 PM EDTAssociated Order(s): LG Jt Injection/Arthrocentesis: R knee Post-Procedure Diagnose(s): Primary osteoarthritis of right knee LG Jt Injection/Arthrocentesis: R knee Date/Time: 02/12/2022 4:04 PM Performed by: Eliecer Hill, FREDDIE Authorized by: Eliecer Hill CNP CPT 71006 - Large Joint Arthrocentesis: Consent given by: Patient Time out: Immediately prior to the procedure a time out was called Physician or proceduralist has discussed critical or nonroutine steps, procedure duration and anticipated blood loss: Yes Supporting Documentation: Indications: Pain, joint swelling and diagnostic evaluation Procedure Details: Location: Knee Site: R knee Prep: patient was prepped and draped in usual sterile fashion Needle size: 22 G Approach: Anterolateral Medications: 40 mg triamcinolone acetonide 40 mg/mL Anesthetic used: Lidocaine 1% Anesthetic amount (mL): 2 Patient tolerance: Patient tolerated the procedure well with no immediate complications * Eliecer Hill CNP - 02/12/2022 3:56 PM EDT 02/12/22 Kristen Mann 1950 Chief Complaint Patient presents with Right Knee - Pain HISTORY of Present Illness: Kristen Mann is a 71 y.o. year old female that presents today with Pain of the Right Knee . Kristen Mann has had injections in the past. Last injection to right/left knee was 09/15/21 and they tolerated well. They have been treated w/ oral medications & injections. She actually had a fall over , landing on her right side. She is hoping today to get another injection to see if that will help her with the pain. The following portions of the patient's history were reviewed and updated as appropriate: allergies, current medications, past surgical history and problem list Assessment No documentation. PAST MEDICAL HISTORY The patient's Medications, Allergies, Past Surgical History, Medical History, Family History and Social History were reviewed and can be found in their online medical record, and I have reviewed thisinformation with Kristen Mann at the time of their visit. They are significant for Past Medical History: Diagnosis Date Asthma Atopy Diabetes (HCC) Eczema GERD (gastroesophageal reflux disease) Granulomatous disease (HCC) Hyperlipidemia Migraine headache Recurrent UTI 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HCC) Tachycardia IMAGING Notes: R Knee: No acute fracture or dislocation. Mild to moderate degenerative changes in the knee, most severe in the patellofemoral joint space. IMPRESSION And PLAN: Cortisone injection today. Will follow up in 3 months if effective. Call if no improvement in 10 days. No diagnosis found. Eliecer Hill CNP documented in this [id number] History of Present illness Narrative* Eliecer Hill CNP - 01/08/2022 4:37 PM EDTAssociated Order(s): LG Jt Injection/Arthrocentesis: R glenohumeral Post-Procedure Diagnose(s): Shoulder arthritis LG Jt Injection/Arthrocentesis: R glenohumeral Performed by: Eliecer Hill CNP Authorized by: Eliecer Hill CNP CPT 63594 - Large Joint Arthrocentesis: Consent given by: Patient Time out: Immediately prior to the procedure a time out was called Physician or proceduralist has discussed critical or nonroutine steps, procedure duration and anticipated blood loss: Yes Supporting Documentation: Indications: Pain and diagnostic evaluation Procedure Details: Location: Shoulder Site: R glenohumeral Prep: patient was prepped and draped in usual sterile fashion Needle size: 22 G Approach: Posterior Medications: 40 mg triamcinolone acetonide 40 mg/mL Anesthetic amount (mL): 2 Patient tolerance: Patient tolerated the procedure well with no immediate complications * Eliecer Hill CNP - 01/08/2022 8:20 AM EDT [facility] [address] [facility] [address] [facility] [id number] Chief Complaint Patient presents with Right Shoulder - Pain Kristen Mann returns to the office today for right shoulder pain. About a year ago she fell on her right side but was more focused on her knee at that time. She reports having continued pain withsome limited range of motion. She is having trouble sleeping on the shoulder because of the pain. She has tried otc pain medications as needed which don't really provide her with any type of relief. The patient's past medical history, surgical history, social history, family history, medications and allergies were reviewed with the patient today and are available in the chart for further review. Allergies Allergen Reactions Morphine Shortness Of Breath Penicillins Rash Sulfa (Sulfonamide Antibiotics) Hives Current Outpatient Medications: albuterol 90 mcg/actuation inhaler, Inhale 2 (two) puffs every 6 (six) hours as needed for wheezing., Disp: 1 g, Rfl: 4 cetirizine-pseudoePHEDrine (ZyrTEC-D) 5-120 mg per tablet, Take 1 tablet by mouth daily ., Disp: , Rfl: doxycycline hyclate (VIBRA-TABS) 100 MG tablet, Take 1 (one) tablet (100 mg total) by mouth 2 (two)times a day ., Disp: 28 tablet, Rfl: 0 ezetimibe (ZETIA) 10 mg tablet, Take 10 mg by mouth daily ., Disp: , Rfl: 6 fluticasone propionate (FLONASE) 50 mcg/actuation nasal spray, USE 1 SPRAY(S) IN EACH NOSTRIL TWICEDAILY, Disp: , Rfl: insulin aspart U-100 (NovoLOG) 100 unit/mL injection, Inject under the skin 3 (three) times a day before meals Not taking ., Disp: , Rfl: insulin glargine (LANTUS) 100 unit/mL injection, Inject 30 Units under the skin daily ., Disp: , Rfl: insulin lispro (AdmeLOG,HumaLOG) 100 unit/mL injection, Inject under the skin 3 (three) times a daybefore meals Sliding scale before meals ., Disp: , Rfl: metFORMIN (GLUCOPHAGE-XR) 500 MG 24 hr tablet, Take 1 (one) tablet (500 mg total) by mouth 2 (two) times a day Pt takes 2 tablets 2 times a day. Hold taking until 12/17/21 after pacemaker implant. ., Disp: 60 tablet, Rfl: 0 metoprolol succinate (TOPROL-XL) 25 MG 24 hr tablet, Take 25 mg by mouth daily ., Disp: , Rfl: nitrofurantoin (MACRODANTIN) 25 MG capsule, Take 25 mg by mouth nightly WHITAKER recurrent UTIs ., Disp: , Rfl: oxyCODONE-acetaminophen (PERCOCET) 5-325 mg per tablet, Take 1 tablet by mouth every 6 (six) hours as needed for pain 7 ., Disp: , Rfl: triamcinolone (KENALOG) 0.1 % cream, , Disp: , Rfl: venlafaxine (EFFEXOR-XR) 150 MG 24 hr capsule, , Disp: , Rfl: VITAMIN D2 50,000 unit capsule, Take 50,000 Units by mouth once a week ., Disp: , Rfl: 4 Past Medical History: Diagnosis Date Asthma Atopy Diabetes (HCC) Eczema GERD (gastroesophageal reflux disease) Granulomatous disease (HCC) Hyperlipidemia Migraine headache Recurrent UTI 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HCC) Tachycardia Past Surgical History: Procedure Laterality Date APPENDECTOMY CARDIAC CATHETERIZATION SECTION, CLASSIC x2 CHOLECYSTECTOMY OPEN EP - DEVICE N/A 12/20/2020 Procedure: Loop Recorder Implant; Surgeon: Lenard Das MD; Location: EP LAB; Service: Cardiovascular EP - DEVICE N/A 12/15/2021 Procedure: Pacemaker Implant (Dual PPM 12-15-21 at 0600/0800); Surgeon: Lenard Das MD; Location: EP LAB; Service: Cardiovascular EYE SURGERY HYSTERECTOMY Social History Socioeconomic History Marital status: Number of children: 3 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 Negative for joint swelling. Neurological: Positive for weakness. PE: Physical Exam Musculoskeletal: General: Tenderness present. Right shoulder: Tenderness and bony tenderness present. Decreased range of motion. Decreased strength. Normal pulse. ORTHO: Right Shoulder Exam Tenderness The patient is experiencing tenderness in the acromion, acromioclavicular joint and clavicle. Range of Motion Active abduction: 120 Passive abduction: 120 Forward flexion: 140 Muscle Strength Supraspinatus: 4/5 Subscapularis: 4/5 Tests Cross arm: positive Impingement: positive Drop arm: negative Other Erythema: absent Scars: absent Sensation: normal Pulse: present Comments: +Full/Empty Can +Obriens +Neer Imaging: R Shoulder: No acute fracture or dislocation. Mild to moderate acromioclavicular and glenohumeral joint degenerative changes Assessment/Plan: After examination and reviewing of the patient x-ray images, I did offer her a cortisone injection which she gladly accepted. I did this without complications and she tolerated this well. In two weeks, if there is no improvement, she is to return to the office for follow up. Continue with otc pain medications as needed. documented in this [id number] History of Present illness Narrative* Latesha Rivera RN - 01/06/2022 1:02 PM EDT Shiela Martino from CT stated that Dr. Shane said yes he will provide backup for lead revision for March 13. I will update patient and Dr. Das. documented in this [id number] History of Present illness Narrative* Shakeel Aggarwal RN - 01/06/2022 12:59 PM EDT Pt here to re-check PPM site, site is well approximated now with no redness noted. Pt denies any complaints at this time. Pt is OKd to shower at this time. documented in this [id number] History of Present illness Narrative* Marily Paige RN - 01/05/2022 3:55 PM EDT PRELIMINARY REVIEW: Routed to EP for review/signature: KRISTEN MANN was seen at [facility] on Thursday, December 30, 2021. The patient's underlying rhythm was Sinus. This evaluation showed the patient was not pacing dependent. The evaluation results are as follows: Pacemaker - [employer] [id number] ACCOLADE MRI (On Alert). This device was implanted on 12/15/2021 and is 0 months old. Atrial Lead - [employer] 7840 Ingevity + MRI. This lead was implanted on 12/15/2021. A pacing threshold of 1.1000 V @ 0.4 ms was determined duringtoday's evaluation. The P wave was sensed at 5.9 mV. The lead impedance was 482.0 ?. Right Ventricular Lead - [employer] 7841 Ingevity + MRI. This lead was implanted on 12/15/2021. A pacing threshold of 6.0000 V @ 0.4 ms was determined duringtoday's evaluation. The R wave was sensed at 1.7 mV. The lead impedance was 476.0 ?. [facility] Dual Chamber PPM/In Clinic Device Check Device Site: Left chest site with red, mild swelling with small circular open/scabbed areas Est. Battery: 10 years Underlying Rhythm: Sinus Presenting EGM: /VS rate 80's AP: <1 % RVP: 2 % AFib [place]: <1% AHR Episodes: 1 listed lasting <1 min, egm appears as SVT VHR Episodes: 2, egms reviewed; one appears atrially driven; one appears as RV lead noise Sensing, Thresholds, Impedances: stable with the exception of a drop in the RV amplitude. RV amplitude measures 1.7 mV today. Several attempts at RV threshold done, unable to obtain RV capture at thehighest output (7.0V @ 0.4ms). Reviewed with Dr. Das, plan for revision. Histograms: 70-130 bpm Medications per EPIC: Toprol XL, Notes/Summary: 11/2021 Echo: EF 61% Explained device check findings with pt and possibility of RV lead dislodgement; verbalized understanding. Changes Made: none Signature: VIKA Mullins/Evelyne Paige RN ___I have reviewed the device function, programmed parameters and heart rhythm. ___Pt will return to the Device Clinic per protocol or as directed. ___No changes made. documented in this [id number] History of Present illness Narrative* Shakeel Aggarwal RN - 12/23/2021 5:36 PM EDT OV with RN for incision check s/p PPM implant on 4-[address] Das. Pt denies concerns or significant pain to implant site. Also denies dizziness/lightheadedness/near-syncope. Dermabond Intact. Woundedges are well approximated but there is a small open area at bottom of incision that isn't completely closed. Dr. Das looked at site and ordered ATB and follow up in 2 weeks. Pt is also complaining of CP that she went to ED for last week. Dr. Das ordered limited echo that showed no pericardialeffusion. Sutures at loop removal site removed x4 without difficulty. Loop site without redness or drainage and is well approximated. documented in this [id number] History of Present illness Narrative* Shakeel Aggarwal RN - 12/19/2021 2:55 PM EDT Pt calling in stating that she is having CP at 8/10 post pacemaker and pain has gotten worse lately. Pt denies any incisional pacemaker pain, but states it hurts right in the middle of my chest. Dr. Das updated who states to have to go to ED. Pt updated and verbalizes understanding. documented in this [id number] Instructions* Patient Instructions* Shakeel Aggarwal RN - 11/20/2021 10:56 AM EDT [facility] EP Pre Procedure Instructions The Physician has scheduled you for the following procedure. pacemaker Date and Time of your Procedure ____11-28-21 at 1200, arrive at 1000 Please arrive at [facility] and check in at out-patient registration by___1000 Do not eat or drink anything after midnight (including candy or gum) on ____3-24 You may take your morning medications with a small amount of water, but do not take the following medications. Hold Metformin for 24 hours. No Smoking or any tobacco use for 24 hours before your procedure. Be sure to get the required blood work done. Please notify nursing if you have an allergy to contrast dye, iodine, any medication, or latex. One support person may accompany you. After the procedure, you may be admitted to the hospital and you will likely be discharged after 1 day. Please arrange for someone to drive you home the day you are discharged. Please get Betasept or Hibiclens at any pharmacy and scrub your arms neck and chest the night before and morning of procedure. It was our pleasure to see you in EP Clinic today. Please contact VIKA Beckford at [phone] if you have questions, concerns, or need prescription refills before your next appointment. documented in this [id number] History of Present illness Narrative* Lenard Das MD - 11/20/2021 10:50 AM EDT Heart & Vascular Clinic Note [facility] Visit Date: 11/20/2021 Patient Name: Kristen Mann : 1950 Reason for Visit: Follow-up (Discuss PPM date saved 11-28-21 ) ASSESSMENT: Kristen Mann is a 71 y.o. female with: #Atrial tachycardia - On metoprolol 25mg. #Bradycardia: Noted 6 second episode of 2:1 block on 02/13/21 at 5am recorded on her Loop recorder. Additional episode on ILR on 09/15/21 of 2nd degree AV block - Mobitz type 1 lasting 10 seconds around 8pm. Had another episode of sinus bradycardia w/ a rate of 32bpm. Given the continue dizziness, it was decided to pursue a pacemaker. #Syncope #Dizziness #Orthostatic hypotension #HTN, HLD, #TIA #DM - last A1c 7.8% on 07/02/21 #??Catheter ablation at [facility] 5 years ago. #ECHO: 2020 Summary 1. This study was technically limited, Definity IV contrast was used to enhance endocardial definition. 2. Left ventricular systolic function is normal with an ejection fraction by Biplane Method of Discs of 66 %. 3. Normal RV size and function. 4. The left ventricular diastolic function is grade I diastolic dysfunction, consistent with low or normal atrial pressures. 5. No hemodynamically significant valvular disease. PLAN: --pursue a dual chamber PPM. --Pursue an echo --c/w current medications. --f/u 4mths. HPI: Kristen Mann is a 71 y.o. female who presents today to discuss management of bradycardia. Histories Past Medical History: Diagnosis Date Asthma Atopy Diabetes (HCC) Eczema GERD (gastroesophageal reflux disease) Granulomatous disease (HCC) Hyperlipidemia Migraine headache Recurrent UTI 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HCC) Tachycardia Past Surgical History: Procedure Laterality Date APPENDECTOMY CARDIAC CATHETERIZATION SECTION, CLASSIC x2 CHOLECYSTECTOMY OPEN EP - DEVICE N/A 12/20/2020 Procedure: Loop Recorder Implant; Surgeon: Lenard Das MD; Location: EP LAB; Service: Cardiovascular EYE SURGERY HYSTERECTOMY Family History Problem Relation Age of Onset Heart disease Father Asthma Mother Social History Socioeconomic History Marital status: Number of children: 3 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 CETIRIZINE-PSEUDOEPHEDRINE (ZYRTEC-D) 5-120 MG PER TABLET Take 1 tablet by mouth daily . EZETIMIBE (ZETIA) 10 MG TABLET Take 10 mg by mouth daily . FLUTICASONE PROPIONATE (FLONASE) 50 MCG/ACTUATION NASAL SPRAY USE 1 SPRAY(S) IN EACH NOSTRIL TWICE DAILY INSULIN ASPART U-100 (NOVOLOG) 100 UNIT/ML INJECTION Inject under the skin 3 (three) times a day before meals . INSULIN GLARGINE (LANTUS) 100 UNIT/ML INJECTION Inject 28 Units under the skin daily . METFORMIN (GLUCOPHAGE-XR) 500 MG 24 HR TABLET Take 1 (one) tablet (500 mg total) by mouth 2 (two) times a day Pt takes 2 tablets 2 times a day. Hold taking for [address] contrast study, OK to resume on 02/11/2018.. METOPROLOL SUCCINATE (TOPROL-XL) 25 MG 24 HR TABLET Take 25 mg by mouth daily . NITROFURANTOIN (MACRODANTIN) 25 MG CAPSULE Take 25 mg by mouth nightly WHITAKER recurrent UTIs . OXYCODONE-ACETAMINOPHEN (PERCOCET) 5-325 MG PER TABLET Take 1 tablet by mouth every 6 (six) hours as needed for pain 7 . TRIAMCINOLONE (KENALOG) 0.1 % CREAM VENLAFAXINE (EFFEXOR-XR) 150 MG 24 HR CAPSULE VITAMIN D2 50,000 UNIT CAPSULE Take 50,000 Units by mouth once a week . Modified Medications No medications on file Discontinued Medications HUMALOG 100 UNIT/ML INJECTION 7 Units 3 (three) times a day before meals . INSULIN GLARGINE,HUM.REC.ANLOG (INSULIN GLARGINE SUBQ) Inject under the skin . METOPROLOL SUCCINATE (TOPROL-XL) 25 MG 24 HR TABLET Take 0.5 (one-half) tablet (12.5 mg total) by mouth daily IN PLACE OF METOPROLOL TARTRATE . Allergies Allergen Reactions Morphine Shortness Of Breath Penicillins Rash Sulfa (Sulfonamide Antibiotics) Hives Review of Systems All system(s) were reviewed. Pertinent positive and negative findings are noted in the HPI. All system negative unless otherwise noted in the HPI PACU Vitals 11/20/21 1001 BP: 125/78 Pulse: 80 SpO2: 98% G: NAD HEENT: Anicteric Chest/Lung: CTA c/l, no wheezes, rubs, or rales CVS: S1 S2 no S3,4, no galops, rubs or murmurs Ab: Soft, NT, ND no guarding or rigidity LE: No edema Skin: Intact Neuro: non Focal Psychiatric: non Suicidal, non homicidal Lab Results Component Value Date GLUCOSE 182 (H) 01/06/2021 CALCIUM 9.1 07/02/2021 NA 140 01/06/2021 K 3.6 01/06/2021 CL 109 (H) 01/06/2021 BUN 22 09/14/2021 CREATININE 0.97 09/14/2021 No results found for: INR, PROTIME ECG reviewed Echocardiogram: reviewed Other workup reviewed ASSESSMENT & PLAN: See above Lenard Das [id number] documented in this [id number] History of Present illness Narrative* Allegra Díaz PA-C - 10/14/2021 10:00 AM EST Heart & Vascular Clinic Note [facility] Visit Date: 10/13/2021 Patient Name: Kristen Mann : 1950 Reason for Visit: Follow-up (4 mo still dizzy) Kristen Mann is a 71 y.o. female who presents today for 4 month follow up. Patient has history of bradycardia w/ syncope s/p loop recorder implanted 12/20/[address] Das. On her ILR - she was noted to have a 6 second episode of 2:1 block in February 2021. She has also been found to have episodes of atrial tachycardia for which she is on Toprol XL. Today, patient reports she has been doing okay since her last visit. No additional episodes of syncope. She denies feeling any palpitations or racing heart. She does still have occasional episodes ofdizziness. These usually occur when she stands from seated position too quickly. These have not worsened since her Toprol XL was increased in early September. Patient denies chest discomfort, SOB, syncope, or LE edema. Current rate controlling medication/Antiarrhythmic: Toprol XL 25 mg daily Current oral anticoagulation: no OAC Histories Past Medical History: Diagnosis Date Asthma Atopy Diabetes (HCC) Eczema GERD (gastroesophageal reflux disease) Granulomatous disease (HCC) Hyperlipidemia Migraine headache Recurrent UTI 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HCC) Tachycardia Past Surgical History: Procedure Laterality Date APPENDECTOMY CARDIAC CATHETERIZATION SECTION, CLASSIC x2 CHOLECYSTECTOMY OPEN EP - DEVICE N/A 12/20/2020 Procedure: Loop Recorder Implant; Surgeon: Lenard Das MD; Location: EP LAB; Service: Cardiovascular EYE SURGERY HYSTERECTOMY Family History Problem Relation Age of Onset Heart disease Father Asthma Mother Social History Socioeconomic History Marital status: Number of children: 3 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 AMITRIPTYLINE (ELAVIL) 25 MG TABLET Take 25 mg by mouth nightly . AUGMENTED BETAMETHASONE DIPROPIONATE (DIPROLENE-AF) 0.05 % CREAM APPLY TO THE AFFECTED AREAS OF THEEXTREMITIES TWICE DAILY FOR 14 DAYS. BUDESONIDE-FORMOTEROL (SYMBICORT) 80-4.5 MCG/ACTUATION INHALER CELECOXIB (CELEBREX) 100 MG CAPSULE Take 100 mg by mouth daily . CETIRIZINE-PSEUDOEPHEDRINE (ZYRTEC-D) 5-120 MG PER TABLET Take 1 tablet by mouth daily . CITALOPRAM (CELEXA) 40 MG TABLET Take 40 mg by mouth daily. EZETIMIBE (ZETIA) 10 MG TABLET Take 10 mg by mouth daily . FLUTICASONE PROPIONATE (FLONASE) 50 MCG/ACTUATION NASAL SPRAY USE 1 SPRAY(S) IN EACH NOSTRIL TWICE DAILY HUMALOG 100 UNIT/ML INJECTION 7 Units 3 (three) times a day before meals . INSULIN GLARGINE (LANTUS) 100 UNIT/ML INJECTION Inject 28 Units under the skin daily . INSULIN GLARGINE,HUM.REC.ANLOG (INSULIN GLARGINE SUBQ) Inject under the skin . METFORMIN (GLUCOPHAGE-XR) 500 MG 24 HR TABLET Take 1 (one) tablet (500 mg total) by mouth 2 (two) times a day Pt takes 2 tablets 2 times a day. Hold taking for [address] contrast study, OK to resume on 02/11/2018.. METOPROLOL SUCCINATE (TOPROL-XL) 25 MG 24 HR TABLET Take 0.5 (one-half) tablet (12.5 mg total) by mouth daily IN PLACE OF METOPROLOL TARTRATE . METOPROLOL SUCCINATE ORAL Take by mouth . NITROFURANTOIN (MACRODANTIN) 25 MG CAPSULE Take 25 mg by mouth nightly . OXYCODONE-ACETAMINOPHEN (PERCOCET) 5-325 MG PER TABLET Take 1 tablet by mouth every 6 (six) hours as needed for pain 7 . TRIAMCINOLONE (KENALOG) 0.1 % CREAM VENLAFAXINE (EFFEXOR-XR) 150 MG 24 HR CAPSULE VITAMIN D2 50,000 UNIT CAPSULE Take 50,000 Units by mouth once a week . Modified Medications No medications on file Discontinued Medications No medications on file Allergies reviewed/updated Review of Systems All system(s) were reviewed. Pertinent positive and negative findings are noted in the HPI. All system negative unless otherwise noted in the HPI There were no vitals taken for this visit. Pulse Readings from Last 3 Encounters: 09/14/21 92 08/05/21 (!) 107 02/13/21 82 BP Readings from Last 3 Encounters: 09/14/21 120/89 08/05/21 128/82 02/13/21 100/65 Wt Readings from Last 3 Encounters: 09/14/21 86.2 kg (190 lb) 08/05/21 85.6 kg (188 lb 11.2 oz) 02/13/21 85.3 kg (188 lb) PHYSICAL EXAM: Constitutional Alert and oriented X3 in no acute distress. Head: normocephalic. Neck: No masses noted HEENT Anicteric Heart:. Normal Intensity S1 and S2. No murmurs. Lungs: Clear to auscultation. Good air movement. No crackles noted. Abdomen is soft and nontender. Extremities: Extremities are warm. No peripheral edema. Skin: warm, dry, intact Neuro: nonfocal Psych not suicidal or homicidal , pleasant, cooperative LABS: Lab Results Component Value Date GLUCOSE 182 (H) 01/06/2021 CALCIUM 9.1 07/02/2021 NA 140 01/06/2021 K 3.6 01/06/2021 CL 109 (H) 01/06/2021 BUN 22 09/14/2021 CREATININE 0.97 09/14/2021 EGFR 49 (L) 07/02/2021 No results found for: MG No results found for: INR, PROTIME Imaging: I independently reviewed the EKG and agree with the interpretation(s) with the following comments. ECG 12 Lead Final Result by Temitope Duque MA (02/13/2021 0825) Echocardiogram complete w contrast Final Result by Gisele Church MD (06/20/2020 1437) Echocardiogram complete Final Result by Marcia Barrienots MD (02/09/2018 1023) Transesophageal Echocardiogram Final Result by Axel Soares MD (10/16/2015 0935) [email or web address] Summary Report: 08/20/21-09/22/21 Battery: Good Presenting: NSR 60's Symptom: 0 Tachy: 0 Pause: 0 Ron: 1-ID# 2 occurred on 09/15/21 with rates 32bpm lasting 10-12 seconds. Patient denied symptoms and stated she had a cold with cough/congestion. AT: 3- Average V rate of 121-123 bpm lasting 5-[address] Das increased patients Toprol XL to 25 QD. AF: 0 AF [place]: 0% Histograms: 60-140 bpm Meds: Toprol XL Notes: Patient cancelled appointment with Allegra Díaz CNP on 09/04/21 and was rescheduled to 10/14/21. Signature: David Gtz MA. EKG 10/14/2021: Sinus rhythm rate 97, RI 156, QRS 86, QTc be 432 ASSESSMENT: Kristen Mann is a 71 y.o. female with: #Atrial tachycardia - noted on loop recorder Metoprolol reduced to 12.5 mg in July d/t dizziness, however was increased back to 25 mg daily in September due to 5-7 hour episode of tachycardia. #Bradycardia: 6 second episode of 2:1 block on 02/13/21 at 5am recorded on her Loop recorder. Patient was asymptomatic during this episode. Additional episode on ILR on 09/15/21 of 2nd degree AV block - Mobitz type 1 lasting 10 seconds around 8pm - pt asymptomatic. #Syncope #Dizziness #Orthostatic hypotension #HTN, HLD, #TIA #DM - last A1c 7.8% on 07/02/21 #??Catheter ablation at [facility] 5 years ago. PLAN: Would recommend patient for pacemaker with her history of syncope, 2:1 block and new episode of Mobitz type I in early September. Discussed case with Dr Fowler. Will continue patient's Metoprolol for tachycardic episodes. Follow up with Dr Das in 2 months to discuss pacemaker procedure - Micra vs dual chamber PPM. Continue current medications. Allegra Díaz PA-C documented in this [id number] History of Present illness Narrative* Eliecer Hill CNP - 09/15/2021 2:04 PM EST Associated Order(s): LG Jt Injection/Arthrocentesis: R greater trochanteric bursa; LG Jt Injection/Arthrocentesis: L greater trochanteric bursa Post-Procedure Diagnose(s): Primary osteoarthritis of right hip; Primary osteoarthritis of left hip LG Jt Injection/Arthrocentesis: R greater trochanteric bursa Performed by: Eliecer Hill CNP Authorized by: Eliecer Hill CNP CPT 10928 - Large Joint Arthrocentesis: Consent given by: Patient Time out: Immediately prior to the procedure a time out was called Physician or proceduralist has discussed critical or nonroutine steps, procedure duration and anticipated blood loss: Yes Supporting Documentation: Indications: Diagnostic evaluation and pain Procedure Details: Location: Hip Site: R greater trochanteric bursa Prep: patient was prepped and draped in usual sterile fashion Needle size: 22 G Medications: 40 mg triamcinolone acetonide 40 mg/mL Anesthetic used: Lidocaine 1% Anesthetic amount (mL): 2 Patient tolerance: Patient tolerated the procedure well with no immediate complications LG Jt Injection/Arthrocentesis: L greater trochanteric bursa Performed by: Eliecer Hill CNP Authorized by: Eliecer Hill CNP CPT 64878 - Large Joint Arthrocentesis: Consent given by: Patient Time out: Immediately prior to the procedure a time out was called Physician or proceduralist has discussed critical or nonroutine steps, procedure duration and anticipated blood loss: Yes Supporting Documentation: Indications: Diagnostic evaluation and pain Procedure Details: Location: Hip Site: L greater trochanteric bursa Prep: patient was prepped and draped in usual sterile fashion Needle size: 22 G Medications: 40 mg triamcinolone acetonide 40 mg/mL Anesthetic used: Lidocaine 1% Anesthetic amount (mL): 2 Patient tolerance: Patient tolerated the procedure well with no immediate complications * Eliecer Hill CNP - 09/15/2021 2:01 PM EST [facility] [address] [facility] [address] [place] [facility] [id number] Chief Complaint Patient presents with Left Hip - Follow-up Right Hip - Follow-up Kristen Mann returns to the office today for injections to bilateral hips. She has received these in the past and they continue to provide her with adequate pain relief. She is also complaining of a little bit of right knee pain. She did receive an injection to the knee which does help. She denies any injury to either the knee or the hip. The patient's past medical history, surgical history, social history, family history, medications and allergies were reviewed with the patient today and are available in the chart for further review. Allergies Allergen Reactions Morphine Shortness Of Breath Penicillins Rash Sulfa (Sulfonamide Antibiotics) Hives Current Outpatient Medications: albuterol 90 mcg/actuation inhaler, Inhale 2 (two) puffs every 6 (six) hours as needed for wheezing., Disp: 1 g, Rfl: 4 amitriptyline (ELAVIL) 25 MG tablet, Take 25 mg by mouth nightly ., Disp: , Rfl: augmented betamethasone dipropionate (DIPROLENE-AF) 0.05 % cream, APPLY TO THE AFFECTED AREAS OF THE EXTREMITIES TWICE DAILY FOR 14 DAYS., Disp: , Rfl: budesonide-formoteroL (SYMBICORT) 80-4.5 mcg/actuation inhaler, , Disp: , Rfl: celecoxib (CELEBREX) 100 MG capsule, Take 100 mg by mouth daily ., Disp: , Rfl: cetirizine-pseudoePHEDrine (ZyrTEC-D) 5-120 mg per tablet, Take 1 tablet by mouth daily ., Disp: , Rfl: citalopram (CELEXA) 40 MG tablet, Take 40 mg by mouth daily., Disp: , Rfl: ezetimibe (ZETIA) 10 mg tablet, Take 10 mg by mouth daily ., Disp: , Rfl: 6 fluticasone propionate (FLONASE) 50 mcg/actuation nasal spray, USE 1 SPRAY(S) IN EACH NOSTRIL TWICEDAILY, Disp: , Rfl: HUMALOG 100 unit/mL injection, 7 Units 3 (three) times a day before meals ., Disp: , Rfl: insulin glargine (LANTUS) 100 unit/mL injection, Inject 28 Units under the skin daily ., Disp: , Rfl: metoprolol succinate (TOPROL-XL) 25 MG 24 hr tablet, Take 0.5 (one-half) tablet (12.5 mg total) by mouth daily IN PLACE OF METOPROLOL TARTRATE ., Disp: 15 tablet, Rfl: 5 minocycline (MINOCIN,DYNACIN) 100 MG capsule, Take 1 (one) capsule (100 mg total) by mouth 2 (two) times a day for 7 days ., Disp: 14 capsule, Rfl: 0 nitrofurantoin (MACRODANTIN) 25 MG capsule, Take 25 mg by mouth nightly ., Disp: , Rfl: oxyCODONE-acetaminophen (PERCOCET) 5-325 mg per tablet, Take 1 tablet by mouth every 6 (six) hours as needed for pain 7 ., Disp: , Rfl: triamcinolone (KENALOG) 0.1 % cream, , Disp: , Rfl: venlafaxine (EFFEXOR-XR) 150 MG 24 hr capsule, , Disp: , Rfl: VITAMIN D2 50,000 unit capsule, Take 50,000 Units by mouth once a week ., Disp: , Rfl: 4 insulin glargine,hum.rec.anlog (INSULIN GLARGINE SUBQ), Inject under the skin ., Disp: , Rfl: metFORMIN (GLUCOPHAGE-XR) 500 MG 24 hr tablet, Take 1 (one) tablet (500 mg total) by mouth 2 (two) times a day Pt takes 2 tablets 2 times a day. Hold taking for [address] contrast study, OK to resume on 02/11/2018.., Disp: 60 tablet, Rfl: 0 METOPROLOL SUCCINATE ORAL, Take by mouth ., Disp: , Rfl: No current facility-administered medications for this visit. Past Medical History: Diagnosis Date Asthma Atopy Diabetes (HCC) Eczema GERD (gastroesophageal reflux disease) Granulomatous disease (HCC) Hyperlipidemia Migraine headache Recurrent UTI 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HCC) Tachycardia Past Surgical History: Procedure Laterality Date APPENDECTOMY CARDIAC CATHETERIZATION SECTION, CLASSIC x2 CHOLECYSTECTOMY OPEN EP - DEVICE N/A 12/20/2020 Procedure: Loop Recorder Implant; Surgeon: Lenard Das MD; Location: EP LAB; Service: Cardiovascular EYE SURGERY HYSTERECTOMY Social History Socioeconomic History Marital status: Number of children: 3 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 Assessment/Plan: Injections to bilateral hips per patient request. I did this without complicationsand she tolerated this well. I am also starting her in outpatient physical therapy for the right knee per patient request. I am happy to see her back as needed. documented in this [id number] History of Present illness Narrative* Eliecer Hill CNP - 08/21/2021 8:32 AM EST Associated Order(s): LG Jt Injection/Arthrocentesis: R knee Post-Procedure Diagnose(s): Primary osteoarthritis of both knees LG Jt Injection/Arthrocentesis: R knee Performed by: Eliecer Hill CNP Authorized by: Eliecer Hill CNP CPT 50567 - Large Joint Arthrocentesis: Consent given by: Patient Time out: Immediately prior to the procedure a time out was called Physician or proceduralist has discussed critical or nonroutine steps, procedure duration and anticipated blood loss: Yes Supporting Documentation: Indications: Pain, joint swelling and diagnostic evaluation Procedure Details: Location: Knee Site: R knee Prep: patient was prepped and draped in usual sterile fashion Needle size: 22 G Approach: Anterolateral Medications: 40 mg triamcinolone acetonide 40 mg/mL Anesthetic used: Lidocaine 1% Anesthetic amount (mL): 2 Patient tolerance: Patient tolerated the procedure well with no immediate complications * Eliecer Hill CNP - 08/21/2021 8:17 AM EST 08/21/21 Kristen Mann 1950 Chief Complaint Patient presents with Right Knee - Pain, Follow-up HISTORY of Present Illness: Kristen Mann is a 71 y.o. year old female that presents today with Pain and Follow-up of the Right Knee . Kristen Mann has had injections in the past. Last injection to right/left knee was 05/05/2021 and they tolerated well. They have been treated w/ oral medications & injections. Patient denies new injury to the knees. The following portions of the patient's history were reviewed and updated as appropriate: allergies, current medications, past surgical history and problem list Assessment No documentation. PAST MEDICAL HISTORY The patient's Medications, Allergies, Past Surgical History, Medical History, Family History and Social History were reviewed and can be found in their online medical record, and I have reviewed thisinformation with Kristen Mann at the time of their visit. They are significant for Past Medical History: Diagnosis Date Asthma Atopy Diabetes (HCC) Eczema GERD (gastroesophageal reflux disease) Granulomatous disease (HCC) Hyperlipidemia Migraine headache Recurrent UTI 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HCC) Tachycardia IMAGING Notes: none new today. Reviewed from last visit. IMPRESSION And PLAN: Cortisone injection today. Will follow up in 3 months if effective. Call if no improvement in 10 days. 1. Primary osteoarthritis of both knees Eliecer Hill CNP documented in this [id number] History of Present illness Narrative* Eduardo Castro MD - 08/05/2021 9:18 AM EST [facility] [address] [facility] [address] [place] [address] Name: Kristen Mann Age: 71 y.o. : 1950 Today's date: 08/05/21 Outpatient Pulmonary Follow-up Note Chief Complaint Patient presents with Follow-up 's pt Asthma 's pt Kristen Mann is a 71 y.o. female who presents to Pulmonary clinic for follow up of mild asthma and multiple non-calcified lung nodules. They were last seen on 05/09/[address] Lopez HPI: 71 y/o female, lifelong non-smoker who presents for follow up. She was being followed by Dr. Lopez for mild asthma as well as an abnormal CT scan. She overall is doing well. She does have some intermittent dyspnea, mainly with exertion, but this is minimal and not terribly bothersome. She is not onany controller medications, mainly because she did not feel they helped and due to cost. She does not use albuterol at all. She does have some mild exacerbations/bronchitis, 1-2x per year, that are associated with URI's. She has not received the Covid-19 vaccine, pneumonia vaccines, or influenza vaccines. She is diabetic and she is also being seen by cardiology for HTN and atrial tachycardia. Shehas had multiple CT chests, starting in 2018 for non-calcified nodules, most recent CT performed earlier this month. Review of Systems Constitutional: Negative. HENT: Negative. Eyes: Negative. Respiratory: Positive for shortness of breath and wheezing. Cardiovascular: Negative. Gastrointestinal: Negative. Musculoskeletal: Negative. Skin: Negative. Allergic/Immunologic: Positive for environmental allergies. Neurological: Positive for dizziness and light-headedness. Hematological: Negative. Objective: Outpatient Medications as of 08/05/2021 Medication Sig augmented betamethasone dipropionate (DIPROLENE-AF) 0.05 % cream APPLY TO THE AFFECTED AREAS OF THEEXTREMITIES TWICE DAILY FOR 14 DAYS. cetirizine-pseudoePHEDrine (ZyrTEC-D) 5-120 mg per tablet Take 1 tablet by mouth daily . ezetimibe (ZETIA) 10 mg tablet Take 10 mg by mouth daily . HUMALOG 100 unit/mL injection 7 Units 3 (three) times a day before meals . insulin glargine (LANTUS) 100 unit/mL injection Inject 28 Units under the skin daily . metFORMIN (GLUCOPHAGE-XR) 500 MG 24 hr tablet Take 1 (one) tablet (500 mg total) by mouth 2 (two) times a day Pt takes 2 tablets 2 times a day. Hold taking for [address] contrast study, OK to resume on 02/11/2018.. metoprolol succinate (TOPROL-XL) 25 MG 24 hr tablet Take 0.5 (one-half) tablet (12.5 mg total) by mouth daily IN PLACE OF METOPROLOL TARTRATE . nitrofurantoin (MACRODANTIN) 25 MG capsule Take 25 mg by mouth nightly . oxyCODONE-acetaminophen (PERCOCET) 5-325 mg per tablet Take 1 tablet by mouth every 6 (six) hours as needed for pain 7 . triamcinolone (KENALOG) 0.1 % cream venlafaxine (EFFEXOR-XR) 150 MG 24 hr capsule VITAMIN D2 50,000 unit capsule Take 50,000 Units by mouth once a week . albuterol 90 mcg/actuation inhaler Inhale 2 (two) puffs every 6 (six) hours as needed for wheezing . amitriptyline (ELAVIL) 25 MG tablet Take 25 mg by mouth nightly . celecoxib (CELEBREX) 100 MG capsule Take 100 mg by mouth daily . citalopram (CELEXA) 40 MG tablet Take 40 mg by mouth daily. [DISCONTINUED] fluticasone furoate-vilanteroL (Breo Ellipta) 100-25 mcg/dose DsDv Inhale 1 Inhalation daily . (Patient not taking: Reported on 08/05/2021 .) Allergies Allergen Reactions Morphine Shortness Of Breath Penicillins Rash Sulfa (Sulfonamide Antibiotics) Hives BP 128/82 (BP Location: Right arm) Pulse (!) 107 Temp 98.2 F (36.8 C) (Temporal) Wt 85.6 kg (188 lb 11.2 oz) SpO2 97% Comment: room air BMI 31.40 kg/m from IP Vitals Flowsheet Date/Time Weight 08/05/21 0839 85.6 Physical Exam: Vitals reviewed Gen: Alert and oriented x 3, In no apparent distress HEENT: Head: Normocephalic, no lesions, without obvious abnormality. Pharynx: Dental Hygiene adequate. Normal buccal mucosa. Normal pharynx. Neck: nontender, full range of motion, no mass, no focal lymphadenopathy Cardio: regular rate and rhythm, no murmur, brisk capillary refill Resp: distant breath sounds bilaterally, no wheezes or crackles, no tachypnea or accessory muscle use Abd: soft, nontender MSK: Extremities with normal ROM. No tenderness, swelling, or joint deformities. Neuro: Grossly normal without focal findings and mental status, speech normal, alert and oriented x3 Skin: no rashes, no jaundice PFT Results PFT Pre-bronchodilator None PFT Post-bronchodilator None PFT Lung Volumes None PFT Diffusion None Interpretation: 2017 reviewed - no obstruction, some reduction in mid-flows with improvement following bronchodilators. Imaging: Personally reviewed images from CT 07/[address] from 2019, 2018 - agree with interpretation - multiple non-calcified nodules, all under 6mm, all stable. Notes and Ancillary Testing Reports: Personally reviewed notes and reports from Dr. Das, Dr. Campos, Dr. Lopez. Assessment and Plan: Kristen was seen today for follow-up and asthma. Diagnoses and all orders for this visit: Asthma, unspecified asthma severity, unspecified whether complicated, unspecified whether persistent - albuterol 90 mcg/actuation inhaler; Inhale 2 (two) puffs every 6 (six) hours as needed for wheezing . Lung nodules Given minimal symptoms recommend prn use of albuterol. If symptoms become more consistent or worsen, recommend starting an inhaled CS/LABA combination. Lung nodules have been stable for over 2 years and she is a non-smoker - likely a benign etiology such as old granulomatous disease - no indicationto continue following them at this point. Long discussion regarding vaccinations - Covid-19, pneumonia, and influenza. Answered some questions. She will consider the Covid-19 vaccine. She was willing to get the Prevar-13 shot and this was given to her today. RTC in PRN Eduardo Castro MD documented in this [id number] Miscellaneous Notes* Telephone Encounter - Latesha Rivera RN - 07/24/2021 4:48 PM EST Communicate to patient about medication of metoprolol. Patient was taking metoprolol tartrate 12.5mg BID and patient stated she was feeling dizzy. She stated that cardiology had her take that dose and she was clear on her medication dose. Per Janae Mendez CNP, I instruct Patient that patient needs to take metoprolol succinate 12.5mg daily. Patient needs to check blood pressure when she feels dizzy and keep a log to let provider know. Pt verbalized understanding. documented in this [id number] History of Present illness Narrative* Lenard Das MD - 07/10/2021 12:14 PM EDT Noted on Linq report that patient had another episode of AT lasting 5hrs with a rate of 122bpm. Will increase metoprolol to 25mg q daily. F/u 08/13. documented in this [id number] History of Present illness Narrative* Latricia Wilson MD - 06/25/2021 9:05 AM EDT Images from the original note were not included. Telephone Visit Via Phone Call I discussed risks, benefits and alternatives of a telephone visit telemedicine consultation with the patient (and any accompanying persons) including the risks that the patient's personal health details and medical records will be discussed over real-time, synchronous, interactive audio technology,the visit will not be recorded without the express consent of both the provider and the patient, and that there are inherent diagnostic limitations compared to [id number] evaluations. We elected toproceed with the telephone visit telemedicine consultation. I have spent 30 minutes with the patient reviewing the HPI, reviewing and updating the medical records & coordination of care. The patient indicates understanding of these issues and agrees with the plan. RHEUMATOLOGY EST PATIENT VISIT Patients name: Kristen Mann : 1950 Today's date: 06/25/2021 Reason for visit:Est patient, referred by RJ Hill for evaluation of "arthralgia". HPC: This is a 71 y.o. female with a pmhx of asthma, DM, GERD,eczema, HTN, HLD who presents for arthralgia. Recently sustained fracture and she is immobilized -> right knee. Not on therapy for OP. Main issues of pain are in her knees. Not taking vit D/Ca. No reports of significant joint swelling/redness. She does have a history of osteoporosis as per the last DEXA done in 2017. She does not recall being on any therapy for osteoporosis. Her calculated FRAX score back in 2017 Major osteoporotic fracture risk 17% Hip fracture risk 3.1% The DEXA back then noted BMD equal to 0.745G/cm2 -2.7 T score of the spine and the left femoral neck noted a BMD of 0.610g/cm2 -2.2 T score. This DEXA also noted that there had been a bone density decrease of 6.9% in the left femoral neck. Review of history patient reports she had a hysterectomy and one ovary removed due to heavy bleeds.Was never on estrogen therapy. Prior Rheum appts: NIL Interim: No new complaints. No complaints of arthralgias. 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 Ports poorly controlled diabetes reports she has had 2 recent DEXA scans? I will try obtain outsiderecords. Patient reports taking vitamin D. I have reviewed the patient's medical history in detail and updated the computerized patient record. Past Medical History: Diagnosis Date Asthma Atopy Diabetes (HCC) Eczema GERD (gastroesophageal reflux disease) Granulomatous disease (HCC) Hyperlipidemia Migraine headache Recurrent UTI 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HCC) Tachycardia Past Surgical History: Procedure Laterality Date APPENDECTOMY CARDIAC CATHETERIZATION SECTION, CLASSIC x2 CHOLECYSTECTOMY OPEN EP - DEVICE N/A 12/20/2020 Procedure: Loop Recorder Implant; Surgeon: Lenard Das MD; Location: EP LAB; Service: Cardiovascular EYE SURGERY HYSTERECTOMY Social History Tobacco Use Smoking status: Never Smoker Smokeless tobacco: Never Used Vaping Use Vaping Use: Never used Substance Use Topics Alcohol use: No Drug use: No Family History Problem Relation Age of Onset Heart disease Father Asthma Mother Allergies Allergen Reactions Morphine Shortness Of Breath Penicillins Rash Sulfa (Sulfonamide Antibiotics) Hives No outpatient medications have been marked as taking for the 06/25/21 encounter (Appointment) with Latricia Wilson MD. Review of Systems: General Constitutional: Denied fevers, chills, anorexia, weight loss, or night sweats Eyes: denied blurry vision, no dry eyes, no RP ENT: denied nasal drainage, sinus pressure, nasal ulcers Mouth: denied oral ulcers, dry mouth Lymphatics: no new adenopathy in cervical, supraclavicular, axillary, inguinal regions Respiratory: no cough, SOB CV: denied palpitations, chest pain/pressure, PND, orthopnea. GI: denied abd pain, n/v/d, constipation, melena. : denied dysuria, urgency, frequency or hematuria. Skin: no rashes or lesions Musculoskeletal: as per HPI Hematologic/lmmunologic: no adenopathy, bleeding, easy bruisiality or recurrent infection. Neurology: Denied new headaches, speech/balance/coordination problems. Denied new focal numbness orweakness of extremities Psych: denied anxiety, depression or mood swings A 10 point review of systems was completed. Physical Exam: There were no vitals taken for this visit. DATA: I have reviewed lab work and imaging. Labs:reviewed. Imaging: reviewed. Health Maintenance Due Topic Date Due Dexa Scan Never done Wellness Visit Never done Urine Microalbumin Never done COVID-19 Vaccine (1) Never done Hepatitis C Screening Never done Zoster Vaccines (1 of 2) Never done Tetanus: Every 10yrs 01/20/2017 Falls Risk Assessment Never done Depression Screening (PHQ-2/9) 02/08/2019 Pneumococcal Vaccine: Age 65+ (4 of 4 - PPSV23) 03/12/2021 Sequential Influenza Vaccine (1) 05/07/2021 Assessment & Plan Age-related osteoporosis in setting of CKD -Patient tells me she has had a recent bone density test done at an outside hospital, we will try obtain outside records. -Patient is on vitamin D replacement therapy. -Therapy plan for Reclast is already in place - ok for Reclast if: -Calcium is within normal range: Ca+ (8.4 10.5) -Vit D > 20 -CrCl >35 mL per minute -On calcium/ Vitamin D 1200mg/800IU daily, in divided doses. -patient not on a loop diuretic -Calcium levels should be closely monitored for hypocalcemia. -Patient has no extensive dental procedures planned. The patient indicates understanding of these issues and agrees with the plan. Return to clinic in 3 month(s) after she has recovered from knee injury Telehealth appointments ok. Latricia Wilson MD Residence Leasing Agent Spray Gun Repairer Helper Note: To expedite correspondence this note was generated by [employer] voice recognition software. Somegrammatical or spelling errors may occur using the system. documented in this [id number] NoteHNO ID: [id number] Author: ELAN Juárez Service: Radiology Author Type: Clinical Datawarehouse Developer Type: Progress Notes Filed: 05/14/2021 9:20 AM Note Text: Radiology Service Progress Note PATIENT NAME: Kristen Mann DATE OF SERVICE: May 14, 2021 TIME: 9:20 AM PATIENT IDENTITY VERIFICATION COMPLETED USING TWO (2) IDENTIFIERS: Name and Date of confirmed by patient verbally and Name and Date of confirmed by identification band. FALL SCREENING: Has the patient had 2 falls in the last year or 1 fall with injury or currently using an Ambulatory Assistive Device (Walker, Cane, Wheelchair, Crutches, etc.)? No PATIENT GENDER DATA: Female. status: : No status: NO. PATIENT RELEVANT IMPLANT DATA REVIEWED: Not Applicable RADIOLOGY DEPARTMENT: Mammography PERIPHERAL IV DATA: Not applicable SIGNED BY: ELAN Juárez May 14, 2021 9:20 AMMarymount [id number] History of Present illness Narrative* Eliecer Hill, [facility] - 05/05/2021 9:45 AM EDT Associated Order(s): LG Jt Injection/Arthrocentesis: R knee; LG Jt Injection/Arthrocentesis: R greater trochanteric bursa; LG Jt Injection/Arthrocentesis: L greater trochanteric bursa Post-Procedure Diagnose(s): Primary osteoarthritis of both knees; Primary osteoarthritis of right hip; Primary osteoarthritis of left hip LG Jt Injection/Arthrocentesis: R knee Performed by: Eliecer Hill CNP Authorized by: Eliecer Hill CNP CPT 59078 - Large Joint Arthrocentesis: Consent given by: Patient Time out: Immediately prior to the procedure a time out was called Physician or proceduralist has discussed critical or nonroutine steps, procedure duration and anticipated blood loss: Yes Supporting Documentation: Indications: Pain, joint swelling and diagnostic evaluation Procedure Details: Location: Knee Site: R knee Prep: patient was prepped and draped in usual sterile fashion Needle size: 22 G Approach: Anterolateral Medications: 40 mg triamcinolone acetonide 40 mg/mL Anesthetic used: Lidocaine 1% Anesthetic amount (mL): 2 Patient tolerance: Patient tolerated the procedure well with no immediate complications LG Jt Injection/Arthrocentesis: R greater trochanteric bursa Performed by: Eliecer Hill CNP Authorized by: Eliecer Hill CNP CPT 85696 - Large Joint Arthrocentesis: Consent given by: Patient Time out: Immediately prior to the procedure a time out was called Physician or proceduralist has discussed critical or nonroutine steps, procedure duration and anticipated blood loss: Yes Supporting Documentation: Indications: Diagnostic evaluation and pain Procedure Details: Location: Hip Site: R greater trochanteric bursa Prep: patient was prepped and draped in usual sterile fashion Needle size: 22 G Approach: Lateral Medications: 40 mg triamcinolone acetonide 40 mg/mL Anesthetic used: Lidocaine 1% Anesthetic amount (mL): 2 Patient tolerance: Patient tolerated the procedure well with no immediate complications LG Jt Injection/Arthrocentesis: L greater trochanteric bursa Performed by: Eliecer Hill CNP Authorized by: Eliecer Hill CNP CPT 82629 - Large Joint Arthrocentesis: Consent given by: Patient Time out: Immediately prior to the procedure a time out was called Physician or proceduralist has discussed critical or nonroutine steps, procedure duration and anticipated blood loss: Yes Supporting Documentation: Indications: Diagnostic evaluation and pain Procedure Details: Location: Hip Site: L greater trochanteric bursa Prep: patient was prepped and draped in usual sterile fashion Needle size: 22 G Approach: Lateral Medications: 40 mg triamcinolone acetonide 40 mg/mL Anesthetic used: Lidocaine 1% Anesthetic amount (mL): 2 Patient tolerance: Patient tolerated the procedure well with no immediate complications * Eliecer Hill CNP - 05/05/2021 9:45 AM EDT [facility] [address] [facility] [address] [facility] [id number] Chief Complaint Patient presents with Right Hip - Pain Left Hip - Pain Right Knee - Pain Kristen Mann returns to the office today for injections to bilateral hips and right knee. She has continued to received adequate symptom relief with the injections and would like to continue withthem at this time. The patient's past medical history, surgical history, social history, family history, medications and allergies were reviewed with the patient today and are available in the chart for further review. Allergies Allergen Reactions Morphine Shortness Of Breath Penicillins Rash Sulfa (Sulfonamide Antibiotics) Hives Current Outpatient Medications: amitriptyline (ELAVIL) 25 MG tablet, Take 25 mg by mouth nightly ., Disp: , Rfl: celecoxib (CELEBREX) 100 MG capsule, Take 100 mg by mouth daily ., Disp: , Rfl: cetirizine-pseudoePHEDrine (ZyrTEC-D) 5-120 mg per tablet, Take 1 tablet by mouth daily ., Disp: , Rfl: citalopram (CELEXA) 40 MG tablet, Take 40 mg by mouth daily., Disp: , Rfl: ezetimibe (ZETIA) 10 mg tablet, Take 10 mg by mouth daily ., Disp: , Rfl: 6 fluticasone furoate-vilanteroL (Breo Ellipta) 100-25 mcg/dose DsDv, Inhale 1 Inhalation daily ., Disp: 1 Inhaler, Rfl: 11 HUMALOG 100 unit/mL injection, 7 Units 3 (three) times a day before meals ., Disp: , Rfl: insulin glargine (LANTUS) 100 unit/mL injection, Inject 22 Units under the skin daily ., Disp: , Rfl: metFORMIN (GLUCOPHAGE-XR) 500 MG 24 hr tablet, Take 1 (one) tablet (500 mg total) by mouth 2 (two) times a day Pt takes 2 tablets 2 times a day. Hold taking for [address] contrast study, OK to resume on 02/11/2018.., Disp: 60 tablet, Rfl: 0 nitrofurantoin (MACRODANTIN) 25 MG capsule, Take 25 mg by mouth nightly ., Disp: , Rfl: oxyCODONE-acetaminophen (PERCOCET) 5-325 mg per tablet, Take 1 tablet by mouth every 6 (six) hours as needed for pain 7 ., Disp: , Rfl: VITAMIN D2 50,000 unit capsule, Take 50,000 Units by mouth once a week ., Disp: , Rfl: 4 Past Medical History: Diagnosis Date Asthma Atopy Diabetes (HCC) Eczema GERD (gastroesophageal reflux disease) Granulomatous disease (HCC) Hyperlipidemia Migraine headache Recurrent UTI 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HCC) Tachycardia Past Surgical History: Procedure Laterality Date APPENDECTOMY CARDIAC CATHETERIZATION SECTION, CLASSIC x2 CHOLECYSTECTOMY OPEN EP - DEVICE N/A 12/20/2020 Procedure: Loop Recorder Implant; Surgeon: Lenard Das MD; Location: EP LAB; Service: Cardiovascular EYE SURGERY HYSTERECTOMY Social History Socioeconomic History Marital status: Spouse name: Not on file Number of children: 3 Years of education: Not on file Highest education level: Not on file 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 Tobacco Use Smoking status: Never Smoker Smokeless tobacco: Never Used Vaping Use Vaping Use: Never used Substance and Sexual Activity Alcohol use: No Drug use: No Sexual activity: Not on file Other Topics Concern Not on file Social History Narrative Pets: dog Social Determinants of Health Financial Resource Strain: Difficulty of Paying Living Expenses: Not on file Food Insecurity: Worried About Running Out of Food in the Last Year: Not on file Ran Out of Food in the Last Year: Not on file Transportation Needs: Lack of Transportation (Medical): Not on file Lack of Transportation (Non-Medical): Not on file Physical Activity: Days of Exercise per Week: Not on file Minutes of Exercise per Session: Not on file Stress: Feeling of Stress : Not on file Social Connections: Frequency of Communication with Friends and Family: Not on file Frequency of Social Gatherings with Friends and Family: Not on file Attends Gnosticism Services: Not on file Active Member of Clubs or Organizations: Not on file Attends Club or Organization Meetings: Not on file Marital Status: Not on file Housing Stability: Unable to Pay for Housing in the Last Year: Not on file Number of Places Lived in the Last Year: Not on file Unstable Housing in the Last Year: Not on file Assessment/Plan: Injections to bilateral hips and right knee per patient request. I did this without complications and she tolerated this well. I will see her back in 3 months or as needed for another set of injections. documented in this [id number] History of Present illness Narrative* Lenard Das MD - 02/13/2021 9:03 AM EDT Heart & Vascular Clinic Note [facility] Visit Date: 02/13/2021 Patient Name: Kristen Mann : 1950 Reason for Visit: Establish Care (Linq per Campos -discuss ron episode on lux ) ASSESSMENT: #Bradycardia: 6 second episode of 2:1 block at 5am recorded on her Loop recorder. Patient was asymptomatic during this episode. #Syncope #Dizziness #Orthostatic hypotension #HTN, HLD, #TIA #DM #??Catheter ablation at [facility] 5 years ago. PLAN: --stop metoprolol at this time --continue to monitor through loop recorder --f/u 4mths to evaluate symptoms and rhythm. HPI: Kristen Mann is a 70 y.o. female who presents today to discuss management of bradycardia. She has a h/o HTN, HLD, Retinal hemorrhage, TIAs, CVA, DM, recent syncope. She reports syncopal episode occurred after she stood up to make dinner. When she got to the kitchen, she felt dizzy and the next thing she remembers is waking up on the floor. She hit her head and knee. She has complained of dizziness for years. Worse when standing and walking. She follows with neurology and it was noted she has orthostatic hypotension. A Loop recorder was placed to evaluate the syncope. She was noted to have 6 second episode of 2:1 block at 5AM. Histories Past Medical History: Diagnosis Date Asthma Atopy Diabetes (HCC) Eczema GERD (gastroesophageal reflux disease) Granulomatous disease (HCC) Hyperlipidemia Migraine headache Recurrent UTI 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HCC) Tachycardia Past Surgical History: Procedure Laterality Date APPENDECTOMY CARDIAC CATHETERIZATION SECTION, CLASSIC x2 CHOLECYSTECTOMY OPEN EP - DEVICE N/A 12/20/2020 Procedure: Loop Recorder Implant; Surgeon: Lenard Das MD; Location: EP LAB; Service: Cardiovascular EYE SURGERY HYSTERECTOMY Family History Problem Relation Age of Onset Heart disease Father Asthma Mother Social History Socioeconomic History Marital status: Spouse name: Not on file Number of children: 3 Years of education: Not on file Highest education level: Not on file 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 Tobacco Use Smoking status: Never Smoker Smokeless tobacco: Never Used Vaping Use Vaping Use: Never used Substance and Sexual Activity Alcohol use: No Drug use: No Sexual activity: Not on file Other Topics Concern Not on file Social History Narrative Pets: dog Social Determinants of Health Financial Resource Strain: Difficulty of Paying Living Expenses: Food Insecurity: Worried About Running Out of Food in the Last Year: Ran Out of Food in the Last Year: Transportation Needs: Lack of Transportation (Medical): Lack of Transportation (Non-Medical): Physical Activity: Days of Exercise per Week: Minutes of Exercise per Session: Stress: Feeling of Stress : Social Connections: Frequency of Communication with Friends and Family: Frequency of Social Gatherings with Friends and Family: Attends Gnosticism Services: Active Member of Clubs or Organizations: Attends Club or Organization Meetings: Marital Status: Morphine, Penicillins, and Sulfa (sulfonamide antibiotics) Patient's Medications New Prescriptions No medications on file Previous Medications AMITRIPTYLINE (ELAVIL) 25 MG TABLET Take 25 mg by mouth nightly . CELECOXIB (CELEBREX) 100 MG CAPSULE Take 100 mg by mouth daily . CETIRIZINE-PSEUDOEPHEDRINE (ZYRTEC-D) 5-120 MG PER TABLET Take 1 tablet by mouth daily . CITALOPRAM (CELEXA) 40 MG TABLET Take 40 mg by mouth daily. EZETIMIBE (ZETIA) 10 MG TABLET Take 10 mg by mouth daily . FLUTICASONE FUROATE-VILANTEROL (BREO ELLIPTA) 100-25 MCG/DOSE DSDV Inhale 1 Inhalation daily . HUMALOG 100 UNIT/ML INJECTION 7 Units 3 (three) times a day before meals . INSULIN GLARGINE (LANTUS) 100 UNIT/ML INJECTION Inject 22 Units under the skin daily . METFORMIN (GLUCOPHAGE-XR) 500 MG 24 HR TABLET Take 1 (one) tablet (500 mg total) by mouth 2 (two) times a day Pt takes 2 tablets 2 times a day. Hold taking for [address] contrast study, OK to resume on 02/11/2018.. METOPROLOL SUCCINATE (TOPROL-XL) 25 MG 24 HR TABLET Take 1 (one) tablet (25 mg total) by mouth daily . NITROFURANTOIN (MACRODANTIN) 25 MG CAPSULE Take 25 mg by mouth nightly . OXYCODONE-ACETAMINOPHEN (PERCOCET) 5-325 MG PER TABLET Take 1 tablet by mouth every 6 (six) hours as needed for pain 7 . VITAMIN D2 50,000 UNIT CAPSULE Take 50,000 Units by mouth once a week . Modified Medications No medications on file Discontinued Medications No medications on file Allergies Allergen Reactions Morphine Shortness Of Breath Penicillins Rash Sulfa (Sulfonamide Antibiotics) Hives Review of Systems All system(s) were reviewed. Pertinent positive and negative findings are noted in the HPI. All system negative unless otherwise noted in the HPI PACU Vitals 02/13/21 0822 BP: 100/65 Pulse: 82 SpO2: 96% G: NAD HEENT: Anicteric Chest/Lung: CTA c/l, no wheezes, rubs, or rales CVS: S1 S2 no S3,4, no galops, rubs or murmurs Ab: Soft, NT, ND no guarding or rigidity LE: No edema Skin: Intact Neuro: non Focal Psychiatric: non Suicidal, non homicidal Lab Results Component Value Date GLUCOSE 182 (H) 01/06/2021 CALCIUM 9.0 01/06/2021 CALCIUM 8.8 01/06/2021 NA 140 01/06/2021 K 3.6 01/06/2021 CL 109 (H) 01/06/2021 BUN 20 01/06/2021 CREATININE 1.24 (H) 01/06/2021 No results found for: INR, PROTIME ECG reviewed Echocardiogram: reviewed Other workup reviewed ASSESSMENT & PLAN: See above Lenard Das [id number] documented in this [id number] Instructions* Patient Instructions* Richard Braga MD - 02/11/2021 10:25 AM EDT 1. Dizzy spells: Based on my examination and ER history, I do not see any brain problems that wouldexplain your dizzy spells. But in fact during our examination, it is apparent to me that your bloodpressures keep dropping when you stand up from a lying down position. It dropped from 131 to 93 systolic today. Multiple times during my examination your dizzy spells came on during this positional changes. I also examined your inner ear-brain connection to see if this was causing any dizzy spells,and I did not find any reason to believe so. Your neuro examination shows mild neuropathy (mostly large fiber neuropathy) that could explain part of your feeling of imbalance when you are walking. Sabina ecially this imbalance can get worse in the dark. But this would not explain the dizzy spells. 2. Drop in blood pressure when changing position especially sitting up or standing up from lying down position is called orthostatic hypotension. Orthostatic hypotension can happen for multiple reasons. Normally when you stand up, your brain send signals to the body including the hormone system of the kidneys to raise the blood pressure to avoid dizzy spells. If this is not working in your case, you can have orthostatic hypotension. Medications like beta blockers can sometimes suppress this reaction and cause dizzy spells. Medications like amitriptyline, nortriptyline, Celexa, Lexapro can allcause the same effect as well. 3. At this time I would recommend you continue following up with your PCP and your health concierge andif they suggest medication adjustments, go ahead with it. I do not recommend taking medications to increase your blood pressures until the cardiac evaluation and the dose adjustments of your beta-blockers is confirmed. 4. If drop in blood pressures continue despite all cardiac medication adjustments, drugs like Florinef (fludrocortisone), and midodrine can be considered by your PCP. These are medications that wouldhelp your body increase blood pressures, preventing the dizzy spells. 5. Memory issues you alluded to (repeating yourself and forgetting things, names): Your brain MRI in 2018 already show some diffuse atrophy that is slightly disproportionate to your age. This may be a sign of gradual onset of dementia. Please keep track of this, and follow-up with neurology as needed. 6. Right carotid artery disease: Your CT angiogram blood vessel pictures of the brain in 2018 had shown a 40% narrowing of the right carotid artery. I would like to investigate this further by sending you to check for an ultrasound of the carotid artery. I will call you with the results of the study and if the narrowing is severe, we might have to send you to vascular surgery. Follow-up: . documented in this [id number] History of Present illness Narrative* Richard Braga MD - 02/11/2021 9:38 AM EDT Images from the original note were not included. NEUROLOGY NOTE [facility] [place] [address] [address] second floor [facility] [id number] Fax: [phone] Service date: 02/11/2021 Admit date: (Not on file) Kristen Mann is a 70 y.o. female here for evaluation of dizziness. She had most recently had a syncopal event, admitted to [facility] in November 2020 for the same, and evaluated by cardiology. Currently under work-up through cardiology for cardiac causes. Dizziness was first noted in 2019. This is associated with walking around, getting up, changing position etc. She adapted to this by learning to wait a bit before moving. There is no spinning sensation, but just lightheadedness and staggering. She stands still and hangs on to something. No nausea, or passing out feeling. Never had any of these when sitting down or lying down. Has never had a vertigo episode in the bed. She reports having vertigo a year ago. This was when she was lying down; butthe dizziness she is reporting now are very different from that. She had had cardiology evaluation in 2019 for tachycardia, with a Holter monitor showing sinus tachycardia. TSH at this time was normal and she was placed on a beta-rosalio. She had dizziness during the cardiology office visit (documented by Dr. Campos). Echocardiogram: 66% ejection fraction with no valvular disease. Exercise myocardial perfusion study in August 2019 was normal. Holter monitor (June 2019)-sinus rhythm with occasional PACs and PVCs. Also later diagnosed with sleep apnea, but did not tolerate treatment. She passed out once in November 2020, was admitted at the [facility]. The events were as follows: shegot up walked into her kitchen, she then noted that she was seeing "lights" and hit the floor. She suffered some trauma to her right knee. Discontinuing amitriptyline improved the dizziness. She had a Linq device placed on Dr. Campos's recommendation in December 2020. Follow-up is pending. Other relevant neuro history: Her history is also notable for hemiplegic migraine headaches, right-sided Johnson's palsy, and history of TIA (subsequently complex migraines were considered as possible differential), type 2 diabetes and hyperlipidemia. She had been admitted to [facility] in February 2018 for transient left arm weakness and pain in the setting of a migraine headache. Symptoms lasted less than 15 minutes, and her MRI work-up at the time was negative for acute strokes, structural lesions and bleeds. CT angiogram head and neck showed 40% right internal carotid artery stenosis. She was started by Dr. Blake (neurologist at [place]) on Amitriptyline 25 mg at bedtime for headache s 2-3 years. She found this useful, sleep better and had improvement of morning headaches. She was a bit tired in the AM and so she moved the drug closer to the evening, which helped. Objective: ORTHOSTATIC VITALS (Neuro): Vitals: 02/11/21 0925 02/11/21 0926 BP: 131/67 93/63 BP Location: Right arm Right arm Patient Position: Lying Standing BP Cuff Size: Adult Adult Pulse: 92 90 Resp: 16 16 SpO2: 95% 96% Neurological examination: Pleasant well-groomed 70 y.o. female. Higher mental functions: Fund of knowledge is fair. She struggles with a history and timeline of her disease but easily responds to cues from the chart. Speech and language are normal. No aphasia, apraxia, agnosia, sensory extinction or spatial neglect. Cranial nerves: Visual: Upper quadrant scotomas bilaterally (pre-existing retinopathy). Oculomotor: Pupils are equal and reactive to light, EOM: Full range of movements, gaze is conjugate, convergence is normal saccades pursuits and VOR are normal. No nystagmus noted no ocular flutter noted. Facial motor: Right lower facial droop with flattened nasolabial fold-not much of right upper half involvement. Likely from old Johnson's palsy. Hearing: Normal to room conversation Lower cranial nerves: Normal. Motor exam/ Neuromuscular: No focal weaknesses noted anywhere. Deep tendon reflexes: 2+ in upper and lower extremities. Sensory: Diminished vibration and joint position sense in both upper and lower extremities (predominantly on the right side). Movement disorder: No tremors myoclonus dyskinesias chorea or athetosis noted. [place]-Hallpike maneuver: No nystagmus in any direction. Subjective sense of dizziness was noted with the left ear down but no associated oculomotor changes. Multiple transient, self-resolving dizzy spells reported by the patient during position changes. Finger-nose and finger eileen are executed without any decomposition of movements or intention tremor. Midline balance and posture: Narrow-based, normal posture, no sway or midline ataxia on casual gait. Romberg maneuver showed mild sway with eyes closed. Required assistance on both sides to perform tandem-stance. Tandem gait was not tested. MRI images from 2018 shows mild punctate subcortical white matter changes bilaterally suggestive ofischemia. Moderate global cerebral atrophy is also noted. Midbrain, guicho, medulla and cerebellum appear healthy. The CSF spaces also appear generally healthy. Assessment and plan: At this time the history is pointing more towards a vascular origin of her dizziness. She is clearly orthostatic with a drop in blood pressure from 131 systolic to 93 systolic with multiple episodes of transient self resolving dizzy spells during position changes noted today. Bedside neuro exam does not show any evidence of a vestibulopathy, or a brainstem abnormality that would explain the dizzyspells. She has a history of right carotid artery stenosis but this is measured at 40% in the CT angiogram from 2018 which would not explain dizzy spells. Nevertheless it is reasonable to get an ultrasound of the carotid arteries to see where we chain maker loom control terms of the narrowing. Orthostatic hypotension can be caused by her metoprolol, Celexa, and amitriptyline which she was onbefore. Primary neurogenic orthostatic hypotension (nOH) cannot be completely ruled out but I have not seen any stigmata of synucleinopathy (which is very frequently associated with nOH). If orthostasis persists despite medication dose adjustments and fluid volume correction (discussed today at length regarding fluid intake), Florinef or midodrine can be considered as pharmacotherapy for OH. MRI from 2018 is notable for diffuse atrophy which is slightly disproportionate to her age (the MRIwas obtained when she was 68). This could explain her mild cognitive impairment but I do not see any evidence of decline in instrumental activities of daily life. Therefore I have asked her to keep track of this. 1. Orthostatic hypotension 2. 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 Stenosis of right internal carotid artery 5. Right-sided Johnson's palsy Patient Instructions 1. Dizzy spells: Based on my examination and ER history, I do not see any brain problems that wouldexplain your dizzy spells. But in fact during our examination, it is apparent to me that your bloodpressures keep dropping when you stand up from a lying down position. It dropped from 131 to 93 systolic today. Multiple times during my examination your dizzy spells came on during this positional changes. I also examined your inner ear-brain connection to see if this was causing any dizzy spells,and I did not find any reason to believe so. Your neuro examination shows mild neuropathy (mostly large fiber neuropathy) that could explain part of your feeling of imbalance when you are walking. Sabina ecially this imbalance can get worse in the dark. But this would not explain the dizzy spells. 2. Drop in blood pressure when changing position especially sitting up or standing up from lying down position is called orthostatic hypotension. Orthostatic hypotension can happen for multiple reasons. Normally when you stand up, your brain send signals to the body including the hormone system of the kidneys to raise the blood pressure to avoid dizzy spells. If this is not working in your case, you can have orthostatic hypotension. Medications like beta blockers can sometimes suppress this reaction and cause dizzy spells. Medications like amitriptyline, nortriptyline, Celexa, Lexapro can allcause the same effect as well. 3. At this time I would recommend you continue following up with your PCP and your health concierge andif they suggest medication adjustments, go ahead with it. I do not recommend taking medications to increase your blood pressures until the cardiac evaluation and the dose adjustments of your beta-blockers is confirmed. 4. If drop in blood pressures continue despite all cardiac medication adjustments, drugs like Florinef (fludrocortisone), and midodrine can be considered by your PCP. These are medications that wouldhelp your body increase blood pressures, preventing the dizzy spells. 5. Memory issues you alluded to (repeating yourself and forgetting things, names): Your brain MRI in 2018 already show some diffuse atrophy that is slightly disproportionate to your age. This may be a sign of gradual onset of dementia. Please keep track of this, and follow-up with neurology as needed. 6. Right carotid artery disease: Your CT angiogram blood vessel pictures of the brain in 2018 had shown a 40% narrowing of the right carotid artery. I would like to investigate this further by sending you to check for an ultrasound of the carotid artery. I will call you with the results of the study and if the narrowing is severe, we might have to send you to vascular surgery. Follow-up: . Assessment & plan notes cannot be loaded without a specified hospital service. RICHARD BRAGA MSc, MD. Staff Neurologist & Movement Disorder Specialist [facility] (Adj Asst: Professor, [employer] Dept of Neurology) Thel[id number], [facility] [address] [facility] [place] Fax: [phone] Attestation: Time Statement (OP Visits): A total of 60 minutes were spent at this encounter, and this includes obtaining history, performing exam, review of previous tests and results, independently interpreting results of tests, ordering medications/tests/procedures, counseling the patient and/family on plan of care, as well as documenting the clinical information in the EHR (which includes this note) This note was created in part using a speech-recognition software. documented in this [id number] History of Present illness Narrative* Eliecer Hill CNP - 01/08/2021 12:14 PM EDT Associated Order(s): LG Jt Injection/Arthrocentesis: R knee; LG Jt Injection/Arthrocentesis: R greater trochanteric bursa; LG Jt Injection/Arthrocentesis: L greater trochanteric bursa Post-Procedure Diagnose(s): Closed fracture of right tibial plateau with routine healing, subsequent encounter; Trochanteric bursitis of both hips LG Jt Injection/Arthrocentesis: R knee Performed by: Eliecer Hill CNP Authorized by: Eliecer Hill CNP CPT 63688 - Large Joint Arthrocentesis: Consent given by: Patient Time out: Immediately prior to the procedure a time out was called Physician or proceduralist has discussed critical or nonroutine steps, procedure duration and anticipated blood loss: Yes Supporting Documentation: Indications: Pain, joint swelling and diagnostic evaluation Procedure Details: Location: Knee Site: R knee Prep: patient was prepped and draped in usual sterile fashion Needle size: 22 G Approach: Anterolateral Medications: 40 mg triamcinolone acetonide 40 mg/mL Anesthetic used: Lidocaine 1% Anesthetic amount (mL): 2 Patient tolerance: Patient tolerated the procedure well with no immediate complications LG Jt Injection/Arthrocentesis: R greater trochanteric bursa Performed by: Eliecer Hill CNP Authorized by: Eliecer Hill CNP CPT 17019 - Large Joint Arthrocentesis: Consent given by: Patient Time out: Immediately prior to the procedure a time out was called Physician or proceduralist has discussed critical or nonroutine steps, procedure duration and anticipated blood loss: Yes Supporting Documentation: Indications: Diagnostic evaluation and pain Procedure Details: Location: Hip Site: R greater trochanteric bursa Prep: patient was prepped and draped in usual sterile fashion Needle size: 22 G Medications: 40 mg triamcinolone acetonide 40 mg/mL Anesthetic used: Lidocaine 1% Anesthetic amount (mL): 2 Patient tolerance: Patient tolerated the procedure well with no immediate complications LG Jt Injection/Arthrocentesis: L greater trochanteric bursa Performed by: Eliecer Hill CNP Authorized by: Eliecer Hill CNP CPT 82033 - Large Joint Arthrocentesis: Consent given by: Patient Time out: Immediately prior to the procedure a time out was called Physician or proceduralist has discussed critical or nonroutine steps, procedure duration and anticipated blood loss: Yes Supporting Documentation: Indications: Diagnostic evaluation and pain Procedure Details: Location: Hip Site: L greater trochanteric bursa Prep: patient was prepped and draped in usual sterile fashion Needle size: 22 G Approach: Lateral Medications: 40 mg triamcinolone acetonide 40 mg/mL Anesthetic used: Lidocaine 1% Anesthetic amount (mL): 2 Patient tolerance: Patient tolerated the procedure well with no immediate complications * Eliecer Hill CNP - 01/08/2021 12:07 PM EDT [facility] [address] [facility] [address] [facility] [id number] Chief Complaint Patient presents with Right Knee - Follow-up Left Hip - Pain Right Hip - Pain Kristen Mann returns to the office today for follow up on the right knee and also for bilateralhip bursa injections. She states that the knee is gradually improving. Not as fast as she would like but it is continuing to improve. She has finished outpatient physical therapy and states that the knee does feel stronger but she still doesn't trust it 100%. She denies any further injury to the knee. She isn't having to use any type of assistive device for ambulation. She denies the knee giving out on her. The hips are the same. She would like to continue the injections since they continue to provide herwith pain relief. The patient's past medical history, surgical history, social history, family history, medications and allergies were reviewed with the patient today and are available in the chart for further review. Allergies Allergen Reactions Morphine Shortness Of Breath Penicillins Rash Sulfa (Sulfonamide Antibiotics) Hives Current Outpatient Medications: cetirizine-pseudoePHEDrine (ZyrTEC-D) 5-120 mg per tablet, Take 1 tablet by mouth daily ., Disp: , Rfl: citalopram (CELEXA) 40 MG tablet, Take 40 mg by mouth daily., Disp: , Rfl: ezetimibe (ZETIA) 10 mg tablet, Take 10 mg by mouth daily ., Disp: , Rfl: 6 fluticasone furoate-vilanteroL (Breo Ellipta) 100-25 mcg/dose DsDv, Inhale 1 Inhalation daily ., Disp: 1 Inhaler, Rfl: 11 HUMALOG 100 unit/mL injection, 7 Units 3 (three) times a day before meals ., Disp: , Rfl: insulin glargine (LANTUS) 100 unit/mL injection, Inject 22 Units under the skin daily ., Disp: , Rfl: metoprolol succinate (TOPROL-XL) 25 MG 24 hr tablet, Take 1 (one) tablet (25 mg total) by mouth daily ., Disp: 30 tablet, Rfl: 11 nitrofurantoin (MACRODANTIN) 25 MG capsule, Take 25 mg by mouth nightly ., Disp: , Rfl: oxyCODONE-acetaminophen (PERCOCET) 5-325 mg per tablet, Take 1 tablet by mouth every 6 (six) hours as needed for pain 7 ., Disp: , Rfl: VITAMIN D2 50,000 unit capsule, Take 50,000 Units by mouth once a week ., Disp: , Rfl: 4 metFORMIN (GLUCOPHAGE-XR) 500 MG 24 hr tablet, Take 1 (one) tablet (500 mg total) by mouth 2 (two) times a day Pt takes 2 tablets 2 times a day. Hold taking for [address] contrast study, OK to resume on 02/11/2018.., Disp: 60 tablet, Rfl: 0 Past Medical History: Diagnosis Date Asthma Atopy Diabetes (HCC) Eczema GERD (gastroesophageal reflux disease) Granulomatous disease (HCC) Hyperlipidemia Migraine headache Recurrent UTI 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HCC) Tachycardia Past Surgical History: Procedure Laterality Date APPENDECTOMY CARDIAC CATHETERIZATION SECTION, CLASSIC x2 CHOLECYSTECTOMY OPEN EP - DEVICE N/A 12/20/2020 Procedure: Loop Recorder Implant; Surgeon: Lenard Das MD; Location: [facility]; Service: Cardiovascular EYE SURGERY HYSTERECTOMY Social History Socioeconomic History Marital status: Spouse name: Not on file Number of children: 3 Years of education: Not on file Highest education level: Not on file 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 Social Needs Financial resource strain: Not on file Food insecurity Worry: Not on file Inability: Not on file Transportation needs Medical: Not on file Non-medical: Not on file Tobacco Use Smoking status: Never Smoker Smokeless tobacco: Never Used Substance and Sexual Activity Alcohol use: No Drug use: No Sexual activity: Not on file Lifestyle Physical activity Days per week: Not on file Minutes per session: Not on file Stress: Not on file Relationships Social connections Talks on phone: Not on file Gets together: Not on file Attends pentecostal service: Not on file Active member of club or organization: Not on file Attends meetings of clubs or organizations: Not on file Relationship status: Not on file Other Topics Concern Not on file Social History Narrative Pets: dog ROS: Review of Systems Constitutional: Negative for activity change and fatigue. HENT: Negative for congestion, hearing loss and trouble swallowing. Eyes: Negative for visual disturbance. Respiratory: Negative for chest tightness and shortness of breath. Cardiovascular: Negative for chest pain and palpitations. Gastrointestinal: Negative for abdominal pain, diarrhea, nausea and vomiting. Endocrine: Negative for polydipsia, polyphagia and polyuria. Genitourinary: Negative for decreased urine volume, difficulty urinating and hematuria. Musculoskeletal: Positive for arthralgias and joint swelling. Negative for myalgias. Skin: Negative for color change, rash and wound. Allergic/Immunologic: Negative for immunocompromised state. Neurological: Negative for dizziness, weakness, light-headedness and numbness. Hematological: Does not bruise/bleed easily. Psychiatric/Behavioral: Negative for confusion and sleep disturbance. The patient is not nervous/anxious. PE: Physical Exam Constitutional: She is oriented to person, place, and time. She appears well- developed and well-nourished. HENT: Head: Normocephalic. Eyes: Pupils are equal, round, and reactive to light. Neck: Normal range of motion. Neck supple. Cardiovascular: Normal rate and regular rhythm. Pulmonary/Chest: Effort normal and breath sounds normal. Abdominal: Soft. Bowel sounds are normal. Musculoskeletal: Normal range of motion. General: Tenderness and edema present. Neurological: She is alert and oriented to person, place, and time. Skin: Skin is warm and dry. Imaging: R Knee Stable alignment of nondisplaced medial tibial plateau and fibular neck fractures with underlying sclerosis. No underlying fracture lucency identified. No additional fractures identified. Normal kneejoint alignment with mild tricompartmental osteophytic spurring. Small suprapatellar joint effusion. Assessment/Plan: After examination and reviewing of the patient x-ray images, I did offer her a cortisone injection to the right knee which she gladly accepted. We did discuss her diabetes and the fact that these injections would elevate her blood sugars. She states that her blood sugars are under very good control and will closing watch her levels after these injections. I did explain that if the blood sugar became too elevated, we would have to interval the injections. She verbalizes understanding and would still like to proceed with the injections to both hips and right knee. I did these without complications and she tolerated these well. I am happy to see her back in 3 months or as needed. documented in this [id number] History of Present illness Narrative* Latricia Wilson MD - 01/06/2021 9:04 AM EDT RHEUMATOLOGY EST PATIENT VISIT Patients name: Kristen Mann : 1950 Today's date: 01/06/2021 Reason for visit:Est patient, referred by RJ Hill for evaluation of "arthralgia". HPC: This is a 70 y.o. female with a pmhx of asthma, DM, GERD,eczema, HTN, HLD who presents for arthralgia. Recently sustained fracture and she is immobilized -> right knee. Not on therapy for OP. Main issues of pain are in her knees. Not taking vit D/Ca. No reports of significant joint swelling/redness. Prior Rheum appts: NIL Interim: No new complaints. Patient denies any history that is compatible with inflammatory arthritis such as joint swelling, redness, loss of function, morning stiffness. The only area where she has had pain is in her right knee which is due to a prior fracture. This fracture was sustained when she lost consciousness. She has a frequent issue of getting lightheaded upon standing and the work-up thus far has been negative. She also has a loop recorder implanted. She does have a history of osteoporosis as per the last DEXA done in 2017. She does not recall being on any therapy for osteoporosis. Her calculated FRAX score back in 2017 Major osteoporotic fracture risk 17% Hip fracture risk 3.1% The DEXA back then noted BMD equal to 0.745G/cm2 -2.7 T score of the spine and the left femoral neck noted a BMD of 0.610g/cm2 -2.2 T score. This DEXA also noted that there had been a bone density decrease of 6.9% in the left femoral neck. Review of history patient reports she had a hysterectomy and one ovary removed due to heavy bleeds.Was never on estrogen therapy. I have reviewed the patient's medical history in detail and updated the computerized patient record. Past Medical History: Diagnosis Date Asthma Atopy Diabetes (HCC) Eczema GERD (gastroesophageal reflux disease) Granulomatous disease (HCC) Hyperlipidemia Migraine headache Recurrent UTI 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HCC) Tachycardia Past Surgical History: Procedure Laterality Date APPENDECTOMY CARDIAC CATHETERIZATION SECTION, CLASSIC x2 CHOLECYSTECTOMY OPEN EP - DEVICE N/A 12/20/2020 Procedure: Loop Recorder Implant; Surgeon: Lenard Das MD; Location: [facility]; Service: Cardiovascular EYE SURGERY HYSTERECTOMY Social History Tobacco Use Smoking status: Never Smoker Smokeless tobacco: Never Used Substance Use Topics Alcohol use: No Drug use: No Family History Problem Relation Age of Onset Heart disease Father Asthma Mother Allergies Allergen Reactions Morphine Shortness Of Breath Penicillins Rash Sulfa (Sulfonamide Antibiotics) Hives Outpatient Medications Marked as Taking for the 01/06/21 encounter (Office Visit) with Latricia Wilson MD Medication Sig Dispense Refill cetirizine-pseudoePHEDrine (ZyrTEC-D) 5-120 mg per tablet Take 1 tablet by mouth daily . citalopram (CELEXA) 40 MG tablet Take 40 mg by mouth daily. ezetimibe (ZETIA) 10 mg tablet Take 10 mg by mouth daily . 6 fluticasone furoate-vilanteroL (Breo Ellipta) 100-25 mcg/dose DsDv Inhale 1 Inhalation daily . 1 Inhaler 11 HUMALOG 100 unit/mL injection 7 Units 3 (three) times a day before meals . insulin glargine (LANTUS) 100 unit/mL injection Inject 22 Units under the skin daily . metoprolol succinate (TOPROL-XL) 25 MG 24 hr tablet Take 1 (one) tablet (25 mg total) by mouth daily . 30 tablet 11 nitrofurantoin (MACRODANTIN) 25 MG capsule Take 25 mg by mouth nightly . oxyCODONE-acetaminophen (PERCOCET) 5-325 mg per tablet Take 1 tablet by mouth every 6 (six) hours as needed for pain 7 . VITAMIN D2 50,000 unit capsule Take 50,000 Units by mouth once a week . 4 Review of Systems: General Constitutional: Denied fevers, chills, anorexia, weight loss, or night sweats Eyes: denied blurry vision, no dry eyes, no RP ENT: denied nasal drainage, sinus pressure, nasal ulcers Mouth: denied oral ulcers, dry mouth Lymphatics: no new adenopathy in cervical, supraclavicular, axillary, inguinal regions Respiratory: no cough, SOB CV: denied palpitations, chest pain/pressure, PND, orthopnea. GI: denied abd pain, n/v/d, constipation, melena. : denied dysuria, urgency, frequency or hematuria. Skin: no rashes or lesions Musculoskeletal: as per HPI Hematologic/lmmunologic: no adenopathy, bleeding, easy bruisiality or recurrent infection. Neurology: Denied new headaches, speech/balance/coordination problems. Denied new focal numbness orweakness of extremities Psych: denied anxiety, depression or mood swings A 10 point review of systems was completed. Physical Exam: BP 102/64 Pulse 96 Wt 86.2 kg (190 lb) BMI 31.62 kg/m Gen: NAD, resting comfortably,Alert, cooperative, no distress, appears stated age HEENT: NCAT, no temporal wasting, EOMI, perrl, anicteric sclerae, mmm, no op lesions Neck: supple, no thyromegaly or LAD, no bruits Lymphatics: no cervical, axillary, or inguinal adenopathy Chest: Good a/e b/l, no added sounds, no respiratory distress CV: RRR, no m/r/g, normal S1, S2 Abd: soft, nontender, nondistended, +BS, no hepatosplenomegaly Ext: no clubbing, cyanosis or edema MSK: No synovitis of the MCPs or PIPs. Crepitus of the knees no effusion or warmth. Skin: no rashes or lesions Neuro: no focal deficits, moves all four extremities Psych: Mood and affect appropriate DATA: I have reviewed lab work and imaging. Labs:reviewed. Imaging: reviewed. Health Maintenance Due Topic Date Due Mammogram Never done Dexa Scan Never done Wellness Visit Never done Depression Screening (PHQ9) Never done COVID-19 Vaccine (1) Never done Hepatitis C Screening Never done Zoster Vaccines (1 of 2) Never done Tetanus: Every 10yrs 01/20/2017 Falls Risk Assessment Never done Assessment & Plan Arthralgia -Patient does not report any significant concerns or symptoms with her joints today. -We will defer any work-up of rheumatoid arthritis for now. -Patient develops any symptoms she will report back so that we may investigate if need be. Age-related osteoporosis with current pathological fracture with routine healing, subsequent encounter - PTH, Intact, Vitamin D, Total, 25-OH, Creatinine, serum, Alkaline Phosphatase, Bone Specific -We will put in a therapy plan for Reclast once her labs are reported. - Vitamin D supplementation recommended, optimal dose is the dose necessary to achieve Vitamin D 25-OH blood level in range of 40-50 ng/mL. (Vitamin D 1000 IU total a day, or dose necessary to achieve a Vitamin D 25-OH blood level in rangeof 40-50 ng/mL). -Recommended daily dose of calcium: 1200mg total a day in divided doses. Calcium from dietary sources, if not sufficient, or if with h/o calcium nephrolithiasis would recommend Calcium Citrate supplement, as it is recommended to avoid caclium carbonate products, which as main dietary calcium source. -Regular weight-bearing and muscle-strengthening exercise -Avoidance of tobacco smoking, excessive alcohol intake and excessive caffeine intake. 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 -Calcium is within normal range: Ca+ (8.4 10.5) -Vit D > 20 -CrCl >35 mL per minute -On calcium/ Vitamin D 1200mg/800IU daily, in divided doses. -Caution should be used if patient is on a loop diuretic - patient not on a loop -Calcium levels should be closely monitored for hypocalcemia. -Patient has no extensive dental procedures planned. CKD of unknown eitology - patient will follow this up with her PA. The patient indicates understanding of these issues and agrees with the plan. Return to clinic in 3-4 month(s) after she has recovered from knee injury Telehealth appointments ok. Latricia Wilson MD Residence Leasing Agent Spray Gun Repairer Helper Note: To expedite correspondence this note was generated by [employer] voice recognition software. Somegrammatical or spelling errors may occur using the system. documented in this [id number] History of Present illness Narrative* Mariela Petty RN - 12/26/2020 2:13 PM EDT OV with RN s/p ILR Implant on 12-20-[address] Das. Dermabond Intact. Wound edges are well approximated and healing. No redness, edema, or ecchymosis observed. Pt cleared to shower. Instructed on wound care and to notify us if ever any s/s of infection. Pt verbalizes understanding and questions were answered. documented in this [id number] Miscellaneous Notes* Quick Note - Rizwana Perry RN - 12/20/2020 3:50 PM EDT Pt eating sandwich And chips at this time. Dressing cdi * Quick Note - Rizwana Perry RN - 12/20/2020 2:20 PM EDT Pt c/o bs being 79. States feels shaky at this time. Called EP lab and ok to give OJ and fruit cup.Will monitor. documented in this [id number] NoteProcedure: LOOP RECORDER Insertion Indication: Syncope/Near Syncope Comments: Uncomplicated Loop recorder insertion Recommendations: Follow up with primary care physician. Sedation: None. ASA Classification: II Procedure Details: Following informed consent, the patient was brought to the procedural room in the fasting post-absorptive state. The patient was prepped. The area was draped in the usual sterile fashion. Local anesthesia was utilized. An incision was made midsternal. The loop recorder was inserted. Minimal local bleeding was controlled with holding pressure. The wound was checked for adequacy of hemostasis and then dressed in the usual sterile fashion. The patient tolerated the procedure well. The patient left the laboratory in stable condition and returned to their room for further observation and monitoring. Estimated Blood Loss: <10ml. Complications: No immediate complications. [id number] History and physical note* Lenard Das MD - 12/20/2020 2:55 PM EDT INTERVAL HISTORY AND PHYSICAL Patient Name: Kristen Mann Admit Date: [id number] MR #: [id number] : 1950 The H&P has been reviewed and the patient has been examined. I concur with the findings of the H&P. There are no significant changes. It is appropriate to proceed with the planned procedure. Lenard Das MD 12/20/2020 3:37 PM * Cecilia Campos MD - 12/04/2020 8:20 AM EDT General Cardiology Clinic Follow-up Heart & Vascular [facility] 12/04/2020 Cecilia Campos MD [address] [place] [phone] Patient: Kristen Mann Date of : 1950 (70 y.o.) PCP: Mimi Estrada PA-C Assessment & Plan Tachycardia She had an episode in October. She got up walked into her kitchen, she then noted that she was seeing "lights" and hit the floor. She suffered some trauma to her right knee. She had been on amitriptyline, that was discontinued and some of this dizziness improved. However she still persist to have dizziness intermittently. Some of this seems to be related to a left ear problem, she does note thatshe feels dizzy when she turns her head suddenly. She is unaware of palpitations or rapid heart action. She is no longer on amitriptyline. I am not sure the beta-blockers helped her but I would like her to continue to take that. I reviewed her sleep study with her, additionally reviewed all of her cardiac testing. I encouragedher to get back to the sleep physician for consideration of treatment options. She apparently has had difficulty with all devices. I would like her to have a Linq monitor placed. She will also get an EP consult. I do not know if these events and dizziness are related to cardiac causes. We will continue to evaluate. Follow-up: Return in about 6 months (around 06/05/2021). Chief Complaint: Follow-up (6 mo ov ), Dizziness, and Medication Refill Subjective History of Present Illness: Kristen Mann is a 70 y.o. female This is a 70-year-old. I saw her in June 2020 last. She was evaluated in 2018 with complaints oftachycardia. Holter monitor showed sinus tachycardia. TSH was normal. She was placed on a beta-rosalio. During that office visit she was noting some dizziness. She has been diagnosed with sleep apneaand did not tolerate treatment. She did have a sleep study in July which showed severe sleep apnea. Echo showed an EF of 66% no significant valvular disease. She had an exercise myocardial perfusion study in August 2019 which was normal. Holter monitor in June showed sinus rhythm occasional PACs and PVCs, mean heart rate was 94. Objective ECG 12 lead Final Result by Cecilia Campos MD (06/07/2020 1030) Echocardiogram complete w contrast Final Result by Gisele Church MD (06/20/2020 1437) Echocardiogram complete Final Result by Marcia Barrientos MD (02/09/2018 1023) Transesophageal Echocardiogram Final Result by Axel Soares MD (10/16/2015 0970) Review of Systems: Review of Systems Constitution: Negative for fever. Cardiovascular: Negative for chest pain, claudication, cyanosis, dyspnea on exertion, irregular heartbeat, leg swelling, near-syncope, orthopnea, palpitations, paroxysmal nocturnal dyspnea and syncope. Respiratory: Negative for shortness of breath. Gastrointestinal: Negative for hematemesis and hematochezia. Neurological: Positive for dizziness. Negative for focal weakness, paresthesias and weakness. Psychiatric/Behavioral: Negative for altered mental status. HOME Medications: Current Outpatient Medications on File Prior to Visit Medication Sig cetirizine-pseudoePHEDrine (ZyrTEC-D) 5-120 mg per tablet Take 1 tablet by mouth daily . citalopram (CELEXA) 40 MG tablet Take 40 mg by mouth daily. ezetimibe (ZETIA) 10 mg tablet Take 10 mg by mouth daily . HUMALOG 100 unit/mL injection 7 Units 3 (three) times a day before meals . insulin glargine (LANTUS) 100 unit/mL injection Inject 22 Units under the skin daily . metFORMIN (GLUCOPHAGE-XR) 500 MG 24 hr tablet Take 1 (one) tablet (500 mg total) by mouth 2 (two) times a day Pt takes 2 tablets 2 times a day. Hold taking for [address] contrast study, OK to resume on 02/11/2018.. nitrofurantoin (MACRODANTIN) 25 MG capsule Take 25 mg by mouth nightly . oxyCODONE-acetaminophen (PERCOCET) 5-325 mg per tablet Take 1 tablet by mouth every 6 (six) hours as needed for pain 7 . VITAMIN D2 50,000 unit capsule Take 50,000 Units by mouth once a week . [DISCONTINUED] metoprolol succinate (TOPROL-XL) 25 MG 24 hr tablet Take 1 (one) tablet (25 mg total) by mouth daily . fluticasone furoate-vilanteroL (Breo Ellipta) 100-25 mcg/dose DsDv Inhale 1 Inhalation daily . (Patient not taking: Reported on 12/04/2020 .) [DISCONTINUED] amitriptyline (ELAVIL) 25 MG tablet nightly . No current facility-administered medications on file prior to visit. Vital Signs: BP 116/76 (BP Location: Right arm, Patient Position: Sitting, BP Cuff Size: Adult) Pulse 90 Ht 5' 5" Wt 89.8 kg (198 lb) SpO2 94% BMI 32.95 kg/m Physical Exam Constitutional: She is oriented to person, place, and time. She appears well- developed and well-nourished. HENT: Head: Normocephalic. Eyes: No scleral icterus. Neck: Neck supple. No thyromegaly present. Cardiovascular: Normal rate, regular rhythm and normal heart sounds. Exam reveals no gallop and no friction rub. No murmur heard. Pulmonary/Chest: Effort normal and breath sounds normal. She has no wheezes. She has no rales. Abdominal: Soft. There is no abdominal tenderness. There is no rebound and no guarding. Musculoskeletal: General: No edema. Neurological: She is alert and oriented to person, place, and time. Skin: Skin is warm and dry. Psychiatric: She has a normal mood and affect. Vitals reviewed. documented in this [id number] Hospital Discharge instructions * Instructions* Shakeel Aggarwal RN - 12/20/2020 [facility] [phone] LOOP RECORDER EXPLANT DISCHARGE INSTRUCTIONS ? It is normal to have tenderness/soreness at the site for 1-2 weeks. ? You have a dressing covering the incision. After 24 hours, please remove all dressings and leave it open to air. You may have steri-strips across the site. Do NOT remove them. They will be removed in the office in about 10 days. ? Do not get the incision wet until you have come into the office for your incision check. You may bathe, but do not allow water to come in contact with the incision/steri-strips. ? Please call the office if you develop any redness, swelling, or drainage around the incision, if the area becomes warm to touch, or if you develop a temperature greater than 100.0 associated with these symptoms. documented in this encounterOhioHealthConsult note* Clinical Note Date No Information [facility] Work Phone: Discharge summary Author Dr. Patton [facility] September 22, 2022 12:46pm Note Date/Time September 22, 2022 1 2:43pm [facility] Medical Records Department [address] [place] [address] Discharge Summary 09/22/22 1236 MR#: [id number] Acct: [id number] Name: KRISTEN MANN Rep #:[id number] : 1950 72 From: Thee thomas MD PCP: Dr. Olivier Acosta MD Status:A DM IN Location: [facility] [place] JD312-6 Providers Date of Admission: 09/18/22 Primary Care Physician: Dr. Olivier Acosta MD Consultations 09/18/22 15:05 Consult: General Surgery Routine Consulting Provider: Anaid Steele Reason for Consult: n/v, ileus vs sbo EMERGENT Consult: No MD Notified: Yes Date Notified: 09/18/22 Time Notified: 13:49 Method of Notification: ED Physician Initiated Reason For Visit: SBO Diagnosis Discharge Diagnosis (1) Abnormal CT scan, colon: Status: Acute Code(s): R93.3 - Abnormal findings on diagnostic imaging of other parts of digestive tract Plan #Nausea/vomiting 2/2 partial colonic blockage vs chronic constipation due to colonic stricture versus mass Had CT with contrast in the ED which showed a large amount of fecal material in the right hemicolon. There appeared on the scan to be a transition point in theregion of the splenic flexure where the descending colon and sigmoid colon were nondistended and clinical correlation advised Passing gas has not had a BM Nausea vomiting NG tube, surgery consult N.p.o. IV fluids Given n.p.o. medication regimen for pain limited as opioids may worsen constipation but will place this cautiously 09/19: On CT concern for narrowing of the splenic flexure. Could be neoplastic process versus stricture. Surgery following and plans to contact Dr. Warren today for possible colonoscopy. Unsuccessful NG placement x2 but actively vomiting and no significant nausea at this time though still not had a bowel movement. Nausea and vomiting improving but still has not had a BM, evaluated byGI, will start slow bowel prep and is on clears with goal of colonoscopy. Possible partial colon blockage however possibly secondary to chronic constipation due to chronic opioid usage 09/20: Having multiple BMs since bowel prep and feeling slightly better. Tolerating clears. NPO at midnight in the event colonoscopy tomorrow. Further dispo after colonoscopy 09/21: Awaiting colonoscopy #Type 2 diabetes mellitus Is on long-acting insulin but given n.p.o. we will do glucose checks and slidingscale insulin Despite holding long-acting has had some low glucose, will continue to hold long-acting especially as still n.p.o. and will de-escalate sliding scale from medium to low. 09/20: Now that p.o. intake increasing glucose significantly elevated, will increase sliding scale and start 10 units of long-acting, appears to take 40 at home 09/21: Blood sugars are still elevated we will continue to monitor #CKD stage IIIb Avoid nephrotoxic agents, trend BMP, currently at baseline #HTN Resume home meds #Anxiety/depression ? Stable ? Continue Effexor #DVT ppx: SCDs Medications at Discharge Home Medications ezetimibe 10 mg tablet (Zetia) 10 mg PO DAILY . 05/31/19 D-Mannrose 1,000 mg PO BID UTI 08/03/22 ascorbate calcium (vitamin C) 500 mg tablet 500 mg PO DAILY SUPPLEMENT 08/03/22 probiotic 1 tab PO DAILY SUPPLEMENT 08/03/22 esomeprazole magnesium 40 mg capsule,delayed release 40 cap PO DAILY . 08/06/22 metoprolol succinate 25 mg tablet,extended release 24 hr 25 mg PO QHS BLOOD PRESSURE 08/06/22 venlafaxine 150 mg capsule,extended release 24 hr 150 cap PO DAILY DEPRESSION 08/06/22 cholecalciferol (vitamin D3) 50 mcg (2,000 unit) capsule (Vitamin D3) 2,000 unitPO DAILY SUPPLEMENT 08/31/22 estradiol 0.01% (0.1 mg/gram) vaginal cream 1 applic vaginal MOWEFR HORMONE 08/31/22 insulin lispro 100 unit/mL subcutaneous pen (Humalog KwikPen (U-100) Insulin) 22unit subcut TIDAC Check with primary doctor 09/12/22 nitrofurantoin monohydrate/macrocrystals 100 mg capsule 100 mg PO BID UTI 09/13/22 insulin glargine-yfgn 100 unit/mL (3 mL) subcutaneous pen 40 unit subcut DAILY DM 09/18/22 trimethoprim 100 mg tablet 100 mg PO DAILY UTI 09/18/22 methylnaltrexone 150 mg tablet (Relistor) 150 mg PO DAILY #30 tabs 09/22/22 Hospital Course Operations None Procedures Colonoscopy Summary of Care Provided Minutes Spent on Discharge: 39 Hospital Course: Per HPI: KRISTEN MANN, is a 72-year-old female with a history of type 2 diabetes mellitus, bilateral carotid stenosis, CKD stage III unclear subtype, hypertension who presented 09/18/2022 with back pain worsened for several days and nausea and vomiting today.? She was recently discharged from the hospital 09/14/2022 when she presented with similar complaints and was treated conservatively.? She was given enemas and lactulose and was having bowel movements but since she has gone home she has not had a bowel movement though reports urinating fine.? He has had feelings of being bloated as well.? Feels most of her discomfort in her lower back.? Denies other complaints today aside from slight headache. Hospital Course: #Nausea/vomiting 2/2 partial colonic blockage vs chronic constipation due to colonic stricture versus mass Had CT with contrast in the ED which showed a large amount of fecal material in the right hemicolon.? There appeared on the scan to be a transition point in theregion of the splenic flexure where the descending colon and sigmoid colon were nondistended and clinical correlation advised Passing gas has not had a BM Nausea vomiting NG tube, surgery consult N.p.o. IV fluids Given n.p.o. medication regimen for pain limited as opioids may worsen constipation but will place this cautiously 09/19: On CT concern for narrowing of the splenic flexure.? Could be neoplastic process versus stricture.? Surgery following and plans to contact Dr. Warren today for possible colonoscopy.? Unsuccessful NG placement x2 but actively vomiting and no significant nausea at this time though still not had a bowel movement. Nausea and vomiting improving but still has not had a BM, evaluated byGI, will start slow bowel prep and is on clears with goal of colonoscopy.? Possible partial colon blockage however possibly secondary to chronic constipation due to chronic opioid usage 09/20: Having multiple BMs since bowel prep and feeling slightly better. Tolerating clears. NPO at midnight in the event colonoscopy tomorrow. Further dispo after colonoscopy 09/21: Awaiting colonoscopy 09/22: Colonoscopy did not demonstrate splenic flexure stricture but it did show some polyps which were biopsied. I discussed the case with gastroenterology whofelt okay with her being urged home with outpatient follow-up. He did recommendpotentially starting Relistor secondary to her opiate induced constipation, thiswill have to be at a dose of 150 mg daily secondary to her creatinine clearance,will run this by pharmacy to check the cost. I discussed with her the possibility for discharge today and she expressed understanding of the risk benefits of going home and would like to go home today if possible. She does dotreatments at home for constipation which she says are on occasion partially successful. She will need to follow-up with her PCP to obtain results of the pathology from the polyps. #Type 2 diabetes mellitus Is on long-acting insulin but given n.p.o. we will do glucose checks and slidingscale insulin Despite holding long-acting has had some low glucose, will continue to hold long-acting especially as still n.p.o. and will de-escalate sliding scale from medium to low. 09/20: Now that p.o. intake increasing glucose significantly elevated, will increase sliding scale and start 10 units of long-acting, appears to take 40 at home 09/21: Blood sugars are still elevated we will continue to monitor, can continue her home medications on discharge #CKD stage IIIb Avoid nephrotoxic agents, trend BMP, currently at baseline #HTN Resume home meds #Anxiety/depression/chronic back pain ? Stable ? Continue Effexor ? She is discussing the possibility of getting an injection by her pain management doctor in her back in the next couple of days Physical Exam Narrative General: Alert, Oriented x3, Cooperative, No apparent distress HEENT: Atraumatic, PERRLA, EOMI, Normocephalic Oral: Moist Mucosa Neck: Supple, No JVD Lungs: Clear to auscultation, Normal air movement, No rhonchi, No wheeze, No rales Cardiovascular: Regular rate, Regular Rhythm, Normal S1, Normal S2, No murmurs Abdomen: Soft, Non Tender, Non-Distended, No Hepato-splenomegaly Extremities: No edema, Capillary Refill Less than 3 Seconds Skin: No rashes, No breakdown Musculoskeletal: No Tenderness to Palpation of Joints or Extremities Neurological: Cranial nerves II-XII grossly intact, Motor Exam 5/5 strength throughout, Sensory exam intact to light touch and pain Psych/Mental Status: Normal Affect, Appropriate Medical Records Data Medical Nutrition Assessment Dietitian: Malnutrition Criteria Met Start: 09/19/22 12:36 Freq: Status: Active Protocol: Document 09/19/22 12:38 (Rec: 09/19/22 12:38 [id number]) Nutrition Malnutrition Evidence of Malnutrition Exists Yes Evidenced By Suboptimal Energy Intake ( Moderate),Weight Loss (Severe) Clinical Problem Acute Disease or Injury Related Malnutrition Etiology moderate related to altered GI function Signs/Symptoms as evidenced by <75% intake of estimated energy needs for >7 days and 2.5% weight loss in 7 days Status Active Problem Recommendation Dietitian Recommendations/Changes ADAT to Low Fiber when medically able to manage medical conditions. RD will order 120mL Ensure Clear 4x with med pass to provide supplemental energy. Weight / BMI Weight Weight: 188 lb 2 oz Body Mass Index (BMI) 30.3 ABG / Lab / Microbiology Data Result Diagrams: 09/22/22 03:54 09/22/22 03:54 Laboratory: Laboratory Results - last 24 hr 09/21/22 12:32: POC Glucose 254 H 09/21/22 18:56: POC Glucose 199 H 09/21/22 21:18: POC Glucose 364 H 09/22/22 03:54: WBC 12.3 H, RBC 4.45, Hgb 12.3, Hct 38.7, MCV 87.0, MCH 27.6, MCHC 31.8 L, RDW Std Deviation 42.7, RDW Coeff of Yonathan 13.5, Plt Count 361, MPV 9.1, Immature Gran % (Auto) 1.300 H, Neut % (Auto) 61.4, Lymph % (Auto) 24.2, [place] % (Auto) 8.9, Eos % (Auto) 3.7, Baso % (Auto) 0.5, Absolute Neuts (auto) 7.5, Absolute Lymphs (auto) 2.97, Nucleated RBC % 0 09/22/22 03:54: Sodium 139, Potassium 4.0, Chloride 105, Carbon Dioxide 23.0, Anion Gap 11, BUN 20 H, Creatinine 1.34 H, Estim Creat Clear Calc 36.57, Est GFR(MDRD) Af Amer 50 L, Est GFR (MDRD) Non-Af 42 L, BUN/Creatinine Ratio 14.9, Glucose 312 H, Calcium 9.1 09/22/22 07:41: POC Glucose 295 H 09/22/22 11:21: POC Glucose 410 H D/C Instructions Discharge Diet: Low fat / Low cholesterol and Carb Control Diet Call your doctor if you observe: Fever of 101 or Higher, Shortness of breath, Dizziness, Fainting spells, Swelling in the ankles, Chest pain and Increased palpitations (irregular heartbeat) Meaningful Use Info Meaningful Use Diagnoses (Choose all that apply): None applicable Discharge Plan Admission Admit Date/Time: 09/18/22 13:21 Attending Provider: Thee Patton Primary Care Provider: Olivier Acosta Consulting Providers: Anaid Steele ; Penny Ellis Discharge Orders/Prescriptions Prescriptions: New Relistor 150 mg tablet 150 mg PO DAILY Qty: 30 0RF Continued ezetimibe [Zetia] 10 mg tablet 10 mg PO DAILY metoprolol succinate 25 mg tablet extended release 24 hr 25 mg PO QHS Label Comments: TAKE 1 TABLET BY MOUTH ONCE DAILY venlafaxine 150 mg capsule,extended release 24hr 150 cap PO DAILY esomeprazole magnesium 40 mg capsule,delayed release(DR/EC) 40 cap PO DAILY probiotic 1 tab PO DAILY ascorbate calcium (vitamin C) 500 mg tablet 500 mg PO DAILY D-Mannrose 1,000 mg PO BID Rx Instructions: 1000mg estradiol 0.01 % (0.1 mg/gram) cream 1 applic VAGINAL MOWEFR Label Comments: INSERT 1 GRAM VAGINALLY 3 TIMES A WEEK BEFORE BED cholecalciferol (vitamin D3) [Vitamin D3] 50 mcg (2,000 unit) capsule 2,000 unit PO DAILY Label Comments: TAKE 1 CAPSULE BY MOUTH ONCE DAILY insulin lispro [Humalog KwikPen Insulin] 100 unit/mL insulin pen 22 unit subcut TIDAC Hold Instructions: Resume on 09/16/22. nitrofurantoin monohyd/m-cryst 100 mg capsule 100 mg PO BID trimethoprim 100 mg tablet 100 mg PO DAILY Label Comments: TAKE 1 TABLET BY MOUTH EVERY DAY AT BEDTIME insulin glargine-yfgn 100 unit/mL (3 mL) insulin pen 40 unit subcut DAILY Referrals / Follow Up: Olivier Acosta MD [Primary Care Provider] - Within 1 Week Disposition Disposition (needs filled in before D/C Order can be placed): Home, Self Care Charges/Coding Visit Charges Inpatient E&M: 64954 Disch Hosp >30min 09/22/22 1246 <Electronically signed by Thee Patton MD> Cosigner Signature (if applicable): CC: Dr. Thee Patton MD; Dr. Olivier Acosta MD~ Signed [facility] Work Phone: Discharge summary* Clinical Note Date No Information [facility] Work Phone: Evaluation note* Diagnosis Arthralgia, unspecified joint- Primary Age-related osteoporosis with current pathological fracture with routine healing, subsequent encounter Age-related osteoporosis without current pathological fracture Chronic kidney disease, unspecified CKD stage Visit for monitoring Reclast therapy [facility] Diagnosis Arthralgia, unspecified joint [facility]* Diagnosis Closed fracture of right tibial plateau with routine healing, subsequent encounter- Primary Primary osteoarthritis of right hip Primary osteoarthritis of left hip Trochanteric bursitis of both hips [facility]* Diagnosis Syncope, unspecified syncope type- Primary [facility]* Diagnosis Orthostatic hypotension- Primary Dizzy spells Dizziness and giddiness Amnestic MCI (mild cognitive impairment with memory loss) Mild cognitive impairment, so stated 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 [facility]* Diagnosis Tachycardia Unspecified tachycardia Syncope, unspecified syncope type [facility]* Diagnosis Primary osteoarthritis of right hip- Primary Primary osteoarthritis of left hip Primary osteoarthritis of both knees [facility]* Diagnosis Age-related osteoporosis with current pathological fracture with routine healing, subsequent encounter- Primary Healthcare maintenance Stage 3 chronic kidney disease, unspecified whether stage 3a or 3b CKD (HCC) 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 Osteomalacia, unspecified [facility] Diagnosis Influenza vaccine needed- Primary Asthma, unspecified asthma severity, unspecified whether complicated, unspecified whether persistent Lung nodules Other diseases of lung, not elsewhere classified [facility] Diagnosis Primary osteoarthritis of both knees- Primary [facility] Diagnosis Primary osteoarthritis of right hip- Primary Primary osteoarthritis of left hip Osteoarthritis of right knee, unspecified osteoarthritis type Other specified diabetes mellitus without complication, with long-term current use of insulin ([facility]) [facility] Diagnosis Syncope, unspecified syncope type [facility] Diagnosis Syncope, unspecified syncope type [facility]* Diagnosis Syncope, unspecified syncope type [facility]* Diagnosis Shoulder arthritis- Primary Unspecified arthropathy, shoulder region [facility] HospitalEvaluation note* Diagnosis Primary osteoarthritis of right knee- Primary [facility] noteNo assessment information availableWA[facility] Work Phone: Evaluation note* Diagnosis Pacemaker- Primary Cardiac pacemaker in situ [facility] Diagnosis 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, vulva documented in this encounter [facility] note* Diagnosis Pacemaker Cardiac pacemaker in situ [facility]* Diagnosis Syncope, cardiogenic- Primary Complication associated with cardiac pacemaker lead, initial encounter Near syncope Orthostatic dizziness Elevated troponin Other abnormal blood chemistry Stage 3a chronic kidney disease (HCC) Pacemaker complications, initial encounter [facility] Diagnosis Primary osteoarthritis of right knee- Primary [facility] Diagnosis Onset Date Resolution Status Chronic kidney disease chron ic Diabetes chronic Obesity [facility] Work Phone: Evaluation note* Diagnosis AV block- Primary Unspecified atrioventricular block [facility] Diagnosis Pacemaker- Primary Cardiac pacemaker in situ Tachycardia Unspecified tachycardia [facility] Diagnosis Onset Date Resolution Status Chronic kidney disease chron ic Diabetes chronic Obesity chronic UTI (urinary tract infection) acute [facility] Work Phone: Evaluation note* Diagnosis Onset Date Resolution Status Chronic kidney disease chron ic Diabetes chronic Obesity chronic Dehydration acute Elevated serum creatinine ac [place] Generalized weakness acute Hyperglycemia acute Leukocytosis acute UTI (urinary tract infection) acute Vomiting acute [facility] Work Phone: Evaluation note* Diagnosis Onset Date Resolution Status Chronic kidney disease chron ic Diabetes chronic Obesity chronic Hyperglycemia acute Dehydration resolved Elevated serum creatinine re solved Generalized weakness resolve d Leukocytosis resolved Vomiting resolved Diabetes chronic Abnormal CT scan, colon acut e Nausea acute [facility] Work Phone: Evaluation note* Diagnosis Onset Date Resolution Status Chronic kidney disease chron ic Diabetes chronic Obesity chronic Hyperglycemia acute Dehydration resolved Elevated serum creatinine re solved Generalized weakness resolve d Leukocytosis resolved Vomiting resolved Diabetes chronic Abnormal CT scan, colon acut e Nausea resolved Presence of cardiac pacemaker acute Sick sinus syndrome acute Back pain acute Debility acute History of vertebral fracture acute S/P kyphoplasty acute Syncope acute Diabetes chronic [facility] Work Phone: Evaluation note* Diagnosis Onset Date Resolution Status Chronic kidney disease chron ic Diabetes chronic Obesity chronic Hyperglycemia acute Dehydration resolved Elevated serum creatinine re solved Generalized weakness resolve d Leukocytosis resolved Vomiting resolved Diabetes chronic Nausea resolved Presence of cardiac pacemaker acute Sick sinus syndrome acute Back pain acute Debility acute History of vertebral fracture acute Orthostatic hypotension acut e S/P kyphoplasty acute Syncope acute Diabetes [facility] Work Phone: Evaluation note* Diagnosis Pacemaker Cardiac pacemaker in situ Orthostatic hypotension [facility] Diagnosis Primary osteoarthritis of right knee- Primary [facility]* Diagnosis Acute thoracic back pain, unspecified back pain laterality- Primary Back pain, unspecified back location, unspecified back pain laterality, unspecified chronicity Pain of left calf Back pain, unspecified back location, unspecified back pain laterality, unspecified chronicity Acute thoracic back pain, unspecified back pain laterality [facility]* Diagnosis Pacemaker Cardiac pacemaker in situ Orthostatic hypotension [facility]* Diagnosis Onset Date Resolution Status Presence of cardiac pacemaker acute Sick sinus syndrome acute [facility] Work Phone: Evaluation note* Diagnosis Abnormal finding on breast imaging Other (abnormal) findings on radiological examination of breast [facility] [place] [facility] Diagnosis Status post kyphoplasty- Primary Vertigo Dizziness and giddiness Age-related osteoporosis with current pathological fracture with routine healing, subsequent encounter Closed wedge fracture of lumbar vertebra with delayed healing, unspecified lumbar vertebral level, subsequent encounter [facility] [place] [facility]* Diagnosis LV dysfunction- Primary Left heart failure LV dysfunction Left heart failure [facility] [place] [facility]* Diagnosis Syncope, unspecified syncope type- Primary Bradycardia Other specified cardiac dysrhythmias Pacemaker Cardiac pacemaker in situ Abnormal ECG Nonspecific abnormal electrocardiogram (ECG) (EKG) documented [facility] [place] [facility]* Diagnosis Status post kyphoplasty- Primary Closed wedge fracture of thoracic vertebra with routine healing, unspecified thoracic vertebral level, subsequent encounter Night muscle spasms [facility] Diagnosis Closed wedge fracture of thoracic vertebra with routine healing, unspecified thoracic vertebral level, subsequent encounter- Primary Closed wedge fracture of lumbar vertebra with delayed healing, unspecified lumbar vertebral level, subsequent encounter [facility]* Diagnosis Primary osteoarthritis of right knee- Primary [facility]* Diagnosis NPH (normal pressure hydrocephalus) (HCC)- Primary Idiopathic normal pressure hydrocephalus (INPH) [facility]* Diagnosis UTI (urinary tract infection)- Primary Urinary tract infection, site not specified Dizziness Dizziness and giddiness NPH (normal pressure hydrocephalus) (HCC) Idiopathic normal pressure hydrocephalus (INPH) Nausea and vomiting, unspecified vomiting type Complicated UTI (urinary tract infection) Elevated troponin Other abnormal blood chemistry Fall, initial encounter [facility]* Type Assessment Date No Information [facility] Work Phone: Evaluation note* Diagnosis Echocardiogram abnormal- Primary Nonspecific (abnormal) findings on radiological and other examination of other intrathoracic organs Encounter to establish care Dizziness Dizziness and giddiness Hyperchloremia- Primary Electrolyte and fluid disorders not elsewhere classified Other specified transient cerebral ischemias Hyperlipidemia Other and unspecified hyperlipidemia Tachycardia- Primary Unspecified tachycardia NOBLE (dyspnea on exertion) Other dyspnea and respiratory abnormality Abnormal ECG Nonspecific abnormal electrocardiogram (ECG) (EKG) Carotid stenosis, right Occlusion and stenosis of carotid artery without mention of cerebral infarction Tachycardia Unspecified tachycardia Tachycardia- Primary Unspecified tachycardia Dizziness Dizziness and giddiness Tachycardia- Primary Unspecified tachycardia NOBLE (dyspnea on exertion) Other dyspnea and respiratory abnormality Dizziness Dizziness and giddiness Echocardiogram abnormal Nonspecific (abnormal) findings on radiological and other examination of other intrathoracic organs Sleep apnea, unspecified type Mixed hyperlipidemia Tachycardia- Primary Unspecified tachycardia Pacemaker Cardiac pacemaker in situ Syncope, cardiogenic- Primary Complication associated with cardiac pacemaker lead, initial encounter Near syncope Orthostatic dizziness Elevated troponin Other abnormal blood chemistry Stage 3a chronic kidney disease (HCC) Pacemaker complications, initial encounter Syncope, cardiogenic Pacemaker complications, initial encounter Pacemaker- Primary Cardiac pacemaker in situ Tachycardia Unspecified tachycardia Dizzy spells Dizziness and giddiness Acute renal failure, unspecified acute renal failure type (HCC) Generalized abdominal pain Abdominal pain, generalized Nausea and vomiting, unspecified vomiting type Hyperglycemia Other abnormal glucose Closed compression fracture of L2 vertebra, initial encounter ([facility]) Closed compression fracture of L4 vertebra, initial encounter ([facility]) Dizziness Dizziness and giddiness Compression fracture of L2 vertebra, initial encounter ([facility]) Orthostatic hypotension S/P kyphoplasty Compression fracture of L2 vertebra ([facility]) Generalized abdominal pain Abdominal pain, generalized Thoracic compression fracture, closed, initial encounter ([facility])- Primary Thoracic compression fracture, closed, initial encounter ([facility]) Fall Unspecified fall Closed fracture of seventh thoracic vertebra (HCC) Diabetes mellitus ([facility]) Type II or unspecified type diabetes mellitus without mention of complication, not stated as uncontrolled GAGANDEEP (acute kidney injury) ([facility]) Vision changes Acute UTI Urinary tract infection, site not specified Abrasion Abrasion or friction burn of other, multiple, and unspecified sites, without mention of infection Abnormal ECG- Primary Nonspecific abnormal electrocardiogram (ECG) (EKG) [facility] Hidalgo [facility] October 08, 2022 4:03pm Note Date/Time October 08, 2022 3 :57pm [facility] Medical Records Department [address] [place] [id number] H&P Exam - Hospitalist 10/08/22 1549 MR#: [id number] Acct: [id number] Name: KRISTEN MANN Rep #:[id number] : 1950 72 From: Emmanuel Hidalgo DO PCP: Dr. Olivier Acosta MD Status:A DM LIZZIE [facility] - [facility] General Date of Admission: 10/08/22 Date of Service: 10/08/22 Chief Complaint: syncope HPI Narrative KRISTEN MANN, is a 72 F who presents with syncopal episodes. Over the past 2 days, patient has had 2 syncopal episodes. Patient has had no forewarning and went down. Yesterday, patient was going into her bathroom and fell hitting her head. Did not seek attention at that time. Today, patient was getting up with a walker and then just fell forward with no warning. Patient presented to the emergency room for evaluation. Patient is a diabetic and blood sugars have beenin the 400s. Patient does have diabetic retinopathy and is unable to see what she is drawing up properly but is not able to see what her blood sugars are withthe OneTouch and they have been in the 400s. Patient does have a pacemaker for what sounds like some sick sinus syndrome. Was told that patient did have a pacemaker interrogated here but the results of which are unknown. [facility] Medical History Abnormal CT scan, colon Asthma Carotid stenosis, bilateral Chronic pain Constipation Depression Diabetes GERD (gastroesophageal reflux disease) HLD (hyperlipidemia) HTN (hypertension) Ileus Non-smoker Pacemaker Pancreatitis Presence of cardiac pacemaker Sick sinus syndrome Sleep apnea TIA (transient ischemic attack) UTI (urinary tract infection) Home Medications ezetimibe 10 mg tablet (Zetia) 10 mg PO DAILY . 05/31/19 [History Last Taken 10/06/22] D-Mannrose 1,000 mg PO BID UTI 08/03/22 [History Last Taken 09/17/22] ascorbate calcium (vitamin C) 500 mg tablet 500 mg PO DAILY SUPPLEMENT 08/03/22 [History Last Taken 10/06/22] probiotic 1 tab PO DAILY SUPPLEMENT 08/03/22 [History Last Taken 10/06/22] esomeprazole magnesium 40 mg capsule,delayed release 40 cap PO DAILY . 08/06/22 [History Last Taken 10/07/22] metoprolol succinate 25 mg tablet,extended release 24 hr 25 mg PO QHS BLOOD PRESSURE 08/06/22 [History Last Taken 10/07/22] venlafaxine 150 mg capsule,extended release 24 hr 150 cap PO DAILY DEPRESSION 08/06/22 [History Last Taken 10/05/22] cholecalciferol (vitamin D3) 50 mcg (2,000 unit) capsule (Vitamin D3) 2,000 unitPO DAILY SUPPLEMENT 08/31/22 [History Last Taken 10/06/22] estradiol 0.01% (0.1 mg/gram) vaginal cream 1 applic vaginal MOWEFR HORMONE 08/31/22 [History Last Taken 1 Week Ago ~10/01/22] nitrofurantoin monohydrate/macrocrystals 100 mg capsule 100 mg PO BID UTI 09/13/22 [History Last Taken 10/07/22] insulin glargine-yfgn 100 unit/mL (3 mL) subcutaneous pen 40 unit subcut DAILY DM 09/18/22 [History Last Taken 10/08/22] trimethoprim 100 mg tablet 100 mg PO DAILY UTI 09/18/22 [History Last Taken Unknown] insulin aspart U-100 100 unit/mL subcutaneous solution (Novolog U-100 Insulin aspart) 25 unit (0.25 mL) subcut TID #70 mL 10/01/22 [Rx Last Taken 10/08/22] clindamycin HCl 150 mg capsule 150 mg PO BID ANTIBIOTIC 10/08/22 [History Last Taken 10/08/22] Allergy/AdvReac Type Severity Reaction Status Date / Time morphine Allergy Mild Rash Verified 09/18/22 08:39 Penicillins Allergy Mild Rash Verified 09/18/22 08:39 Sulfa (Sulfonamide Allergy Mild Rash Verified 09/18/22 08:39 Antibiotics) Family History Mother Hypertension Father Asthma Depression Diabetes High cholesterol Hypertension Other Arthritis Autoimmune disorder Breast cancer Cancer Kidney disease Surgical History H/O section H/O: hysterectomy History of appendectomy History of cholecystectomy Hx laparoscopic cholecystectomy Social History household members: none Smoking Status: Never smoker alcohol intake: never substance use type: does not use what type of physical activity do you participate in: none ROS ROS Narrative Does get chilled at times but no new changes with that. Has had other episodes where she feels dizzy but not passed out. Patient states that she only falls a few times per year. All review of systems were negative except as mentioned above in the history of present illness and the other review of systems. Vital Signs Vital Signs Vital Signs: 10/08/22 13:27 10/08/22 13:31 Temperature 36.4 C L Temperature Source Oral Pulse Rate 121 H Respiratory Rate 18 Respiratory Effort Normal Respiratory Pattern Normal Blood Pressure 115/76 Blood Pressure Mean 89 Pulse Ox 99 Oxygen Delivery Method Room Air Weight Weight: 81.9 kg Body Mass Index (BMI) 29.1 Physical Exam Const alert and no apparent distress HEENT normocephalic, head/scalp atraumatic, hearing grossly normal bilaterally and moist oral mucous membranes Eyes PERRL and EOMs intact bilaterally Resp normal respiratory effort, no retractions, no use of accessory muscles and clearto auscultation bilaterally Cardio regular rate, regular rhythm, S1 normal heart sound and S2 normal heart sound GI normal to inspection, nondistended, normoactive bowel sounds, soft to palpation,non-tender and non-distended Extremity normal to inspection, full ROM and no clubbing, cyanosis or edema Neuro oriented x3 and moves all extremities Psych affect normal Results Lab / Micro Data Attestation: I reviewed the patient's lab results. Result Diagrams: 10/08/22 14:00 10/08/22 14:00 Labs: Laboratory Results - last 24 hr 10/08/22 14:00: WBC 16.1 H, RBC 5.15, Hgb 14.3, Hct 43.9, MCV 85.2, MCH 27.8, MCHC 32.6, RDW Std Deviation 42.5, RDW Coeff of Yonathan 13.7, Plt Count 348, MPV 9.0, Immature Gran % (Auto) 1.500 H, Neut % (Auto) 72.3 H, Lymph % (Auto) 14.2 L, [place] % (Auto) 8.3, Eos % (Auto) 3.1, Baso % (Auto) 0.6, Absolute Neuts (auto) 11.6 H, Absolute Lymphs (auto) 2.29, Nucleated RBC % 0 10/08/22 14:00: Sodium 138, Potassium 4.0, Chloride 108 H, Carbon Dioxide 24.0, Anion Gap 6, BUN 30 H, Creatinine 1.37 H, Estim Creat Clear Calc 35.77, Est GFR (MDRD) Af Amer 49 L, Est GFR (MDRD) Non-Af 40 L, BUN/Creatinine Ratio 21.9 H, Glucose 275 H, Calcium 9.8, Troponin I High Sens 6 EKG Initial EKG: Attestation: I personally reviewed and interpreted this EKG as follows: Prior EKG tracings: available for review EKG Rhythm Intrepretation: Sinus Rhythm Radiology Impression Brain CT 10/08/22 13:43 IMPRESSION: Normal unenhanced CT scan of the brain. Small air-fluid level in the right maxillary sinus. Electronically Signed: Theo Perez MD at 14:48 EST , Cervical Spine CT 10/08/22 13:43 IMPRESSION: Multilevel degenerative changes, as described above. Electronically Signed: Theo Perez MD at 14:53 EST , Lumbar Spine CT 10/08/22 13:43 IMPRESSION: Multilevel degenerative changes, as described above. Grade 1 anterolisthesis of L4 on L5 due to facet joint osteoarthritis and spondylolysis of the pars interarticularis of the L4 vertebrae. Stable large Schmorl''s node in the superior endplate of the L4 vertebrae. Electronically Signed: Theo Perez MD at 14:51 EST , Thoracic Spine CT 10/08/22 13:43 IMPRESSION: Multilevel disc space narrowing and spondylosis. Prior vertebral plasty of the T12 and L1 vertebrae. Electronically Signed: Theo Perez MD at 14:57 EST , Assessment & Plan Assessment/Plan (1) Syncope: PLAN: Unclear etiology. Patient had no forewarning, however, the patient does have diabetes so she may have some autonomic insufficiency. Interrogate pacemaker Check orthostatic vital signs Check echocardiogram (2) Debility: PLAN: PTOT evaluate and treat Patient does live by herself and with her falls and syncope, it is concerned about the patient going back and living on her own independently. (3) History of vertebral fracture: PLAN: Patient did have prado scans of her cervical thoracic and lumbar spine showed no acute fracture.MRI of the lumbar spine on September 30 showed mild recent anterior wedge compression fracture of the upper T12 vertebral body with extensive bone marrow edema. We will consult pain management for further recommendations Check 25-hydroxy vitamin D level (4) Diabetes: QUALIFIERS: Diabetes mellitus type: type 2 Diabetes mellitus mcc insulin use: with mcc use Diabetes mellitus complication status: with ophthalmic complications Diabetes mellitus complication detail: with diabetic retinopathy Diabetic retinopathy severity: with unspecified retinopathy severity Diabetes mellitus macular edema: macular edema presence unspecified Laterality: unspecified laterality Qualified Code(s): E11.319 - Type 2 diabetes mellitus with unspecified diabetic retinopathy without macular edema; Z79.4 - senior living (current) use of insulin PLAN: Type II the patient states that she has been recent diagnosis type I. Nonetheless, patient is insulin-dependent. Blood sugars have been in the 400s at home according to her. Concern of the patient may not be able to read the numbers on her syringes when she draws them up to probably give herself on the right insulin. Patient was blaming the change on receiving NovoLog instead of Humalog. Explained that essentially the same medication. Check an A1c Continue glargine, NovoLog and sliding scale insulin. PLAN: Plan Chronic conditions * Sick sinus syndrome: Status post pacemaker. Follow-up cardiology as outpatient * Diabetic retinopathy: Follow-up with ophthalmology as outpatient * Chronic kidney disease stage IIIb: Stable VTE prophylaxis: Not indicated given current observation status. CODE STATUS: Addressed with the patient. Patient wishes to be full code. Charges/Coding Visit Charges Inpatient E&M: 92681 Init Hosp L3 10/08/22 2934 <Electronically signed by Emmanuel Hidalgo DO> Cosigner Signature (if applicable): CC: Dr. Emmanuel Hidalgo DO; Dr. Olivier Acosta MD~ Signed [facility] Work Phone: History and physical note* Clinical Note Date No Information [facility] Work Phone: History of Present illness Narrative* Encounter Date Complaint History Of Prese nt Illness No Information [facility] Work Phone: Hospital Discharge instructions Additional Instructions Please follow-up with orthopedic doctor I referred you to. Please begin taking MiraLAX. Return if symptoms do not improve or worsen. Your CT scan showed compression deformity of T12. 4.4mm retropulsed fragment into the canal causing moderate spinal stenosis.[facility] Work Phone: Instructions* Date Instruction Additional Infor mation No Information [facility] [employer] Phone: Progress note* Clinical Note Date No Information [facility] [employer] Phone: Reason for referral (narrative)* Reason For Referral No Information [facility] [employer] Phone: Reason for referral (narrative)No reason for referral [facility]: Reason for visit Narrative* Diagnostic Procedure Only (Routine) - Closed Specialty Diagnoses / Procedures Referred By Padmini rangel Referred To Contact [facility] Diagnoses Abnormal finding on breast imaging Procedures CATIE SCREENING SCREENING MAMMOGRAPHY BI 2-VIEW BREAST INC CAD Garcia Turner MD [address] [place] [address] [facility] [address] [place] [id number] Referral ID Status Reason Start Date Expiration Date V isits Requested Visits Authorized [id number] Closed Auto-Generate d Referral 10/23/2021 11/22/2022 1 1 [facility] Course * Imelda Quesada MD - 02/09/2018 5:56 PM EDT Formatting of this note may be different from the original. Imelda Quesada MD [facility] Hospitalists DISCHARGE SUMMARY Kristen Mann Admit Date: 02/08/2018 Discharge Date: 02/09/18 Primary Care Physician: Behzad Mcintyre MD Clinical Summary Kristen Mann is a 67 y.o. female who presented from outside hospital on 02/08/2018 with left arm weakness/paresthesia in the setting of Migraine headache. Discharge Diagnosis and Associated Hospital Course Hemiplegic Migraine - Suspected etiology, transient left arm weakness and pain in the setting of a migraine, symptoms lasted < 15 min. - No recurrence of symptoms. Noted to have + orthostatic vitals and was given IVF, HCTZ was held atdischarge. - She was evaluated per Neuro, recommended ASA 81 mg, outpatient evaluation of YVONNE and getting fitted with CPAP. Carotid artery stenosis - Reports was told that she has Right carotid artery stenosis on MR study done at [facility], images were sent to Dr. Alexandra office. - CTA head and neck here revealed only 40 % stenosis. - She was initiated on ASA 81 mg, statins were recommended, however she reported that she had triedall different Statins and had side effects/intolerant effects and was interested in taking them. - Counseled to talk to her pillar worker regarding different other options. She will need 1 year follow up with CTA for right ICA stenosis. DM2 - A1c of 8.5, counseled regarding better glycemic control, she does follow up with endocrinology. - Reports that she gets very symptomatic when her BG reading are on the lower side. - Continue with home Lantus 22 units QAM, humulog 7 units TID, outpatient follow up with her pillar worker. - Metformin need to be held for 48 hours after CTA head and neck study. Migraine - On elavil, tylenol prn Depression - Cont celexa and elavil Asthma - Stable, cont Singulair HTN - Recommended SLOANE-I related to her history of DM, could be started as an outpatient. - HCTZ was held related to + orthostatic vitals. Comments/Problems to be Addressed After Discharge She will need 1 year follow up with CTA for right ICA stenosis. Procedures: As above Code Status: Full Allergies: Morphine; Penicillins; and Sulfa (sulfonamide antibiotics) Disposition: Home Condition at Discharge: stable Discharge Medication Recommendations Discharge Medication List as of 02/09/2018 4:47 PM START taking these medications Details aspirin 81 MG EC tablet Take 1 (one) tablet (81 mg total) by mouth daily., Starting Wed02/09/2018, Until Wed03/11/2018, OTC CONTINUE these medications which have CHANGED Details metFORMIN (GLUCOPHAGE-XR) 500 MG 24 hr tablet Take 1 (one) tablet (500 mg total) by mouth 2 (two) times a day Pt takes 2 tablets 2 times a day. Hold taking for [address] contrast study, OK to resume on 02/11/2018.., Starting Wed02/09/2018, Until Wed03/11/2018, Print CONTINUE these medications which have NOT CHANGED Details amitriptyline (ELAVIL) 25 MG tablet nightly ., Starting 09/12/2017, Historical Med HUMALOG 100 unit/mL injection 7 Units 3 (three) times a day before meals ., Starting 09/06/2017, Historical Med insulin glargine (LANTUS) 100 unit/mL injection Inject 22 Units under the skin daily ., Historical Med montelukast (SINGULAIR) 10 mg tablet Take 10 mg by mouth daily., Starting 09/15/2015, Until Discontinued, Historical Med nitrofurantoin (MACRODANTIN) 50 MG capsule Take 25 mg by mouth nightly ., Starting Darleen 07/25/2015, Historical Med citalopram (CELEXA) 40 MG tablet Take 40 mg by mouth daily., Starting 08/02/2015, Until Discontinued, Historical Med STOP taking these medications hydroCHLOROthiazide (MICROZIDE) 12.5 mg capsule Comments: Reason for Stopping: potassium chloride (K-DUR) 10 MEQ CR tablet Comments: Reason for Stopping: atorvastatin (LIPITOR) 20 MG tablet Comments: Reason for Stopping: Kristen Mann was seen and examined on the day of discharge. See documentation on discharge day for pertinent history and exam findings. Time spent on discharge: > 30 minutes in this encounter Discharge Instructions * Discharge Instr - Care Coordination - Tino Reynaga RN - 02/09/2018 12:46 PM EDT Physical Therapy: Evaluate and treat. Facility of choice. The following attachments cannot be sent through Care Everywhere. * Diabetes Diet Guidelines: General Info (Russian) * Diabetes Diet Meal Planning: General Info (Russian) in this encounter Assessments Diagnosis Carotid stenosis, right - Pr imary Occlusion and stenosis of carotid artery without mention of cerebral infarction Echocardiogram abnormal Nonspecific (abnormal) findings on radiological and other examination of other intrathoracic organs Dizziness Dizziness and giddiness Other migraine without statu s migrainosus, not intractable Mixed hyperlipidemia Orthostatic hypotension Diagnosis Mild intermittent asthma wit h acute exacerbation - Primary Acute bronchitis, unspecifie d organism Diagnosis Trochanteric bursitis of bot h hips - Primary Bilateral hip pain Pain in joint, pelvic region and thigh Diagnosis Trochanteric bursitis of both hips- Primary Primary osteoarthritis of right hip Diagnosis Hand pain, left- Primary Pain in soft tissues of limb 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 Diagnosis Primary osteoarthritis of right hip- Primary Primary osteoarthritis of left hip Diagnosis Persistent cough- Primary SOB (shortness of breath) Shortness of breath Asthma, unspecified asthma severity, unspecified whether complicated, unspecified whether persistent Diagnosis Tachycardia Unspecified tachycardia NOBLE (dyspnea on exertion) Other dyspnea and respiratory abnormality Abnormal ECG Nonspecific abnormal electrocardiogram (ECG) (EKG) Carotid stenosis, right Occlusion and stenosis of carotid artery without mention of cerebral infarction Diagnosis NOBLE (dyspnea on exertion) Other dyspnea and respiratory abnormality Abnormal ECG Nonspecific abnormal electrocardiogram (ECG) (EKG) Diagnosis Primary osteoarthritis of right hip Primary osteoarthritis of left hip Diagnosis Mild intermittent asthma without complication Lung nodules Other diseases of lung, not elsewhere classified Diagnosis Tachycardia Unspecified tachycardia Diagnosis Primary osteoarthritis of right hip Primary osteoarthritis of left hip Diagnosis Primary osteoarthritis of right knee- Primary Diagnosis Asthma, unspecified asthma severity, unspecified whether complicated, unspecified whether persistent- Primary Diagnosis YVONNE (obstructive sleep apnea) Obstructive sleep apnea (adult) (pediatric) Diagnosis Primary osteoarthritis of right hip- Primary Primary osteoarthritis of left hip Primary osteoarthritis of right knee Trochanteric bursitis of both hips Arthralgia, unspecified joint Diagnosis YVONNE (obstructive sleep apnea)- Primary Obstructive sleep apnea (adult) (pediatric) Diagnosis Sprain of lateral collateral ligament of right knee, initial encounter- Primary Diagnosis Tachycardia- Primary Unspecified tachycardia NOBLE (dyspnea on exertion) Other dyspnea and respiratory abnormality Dizziness Dizziness and giddiness Echocardiogram abnormal Nonspecific (abnormal) findings on radiological and other examination of other intrathoracic organs Sleep apnea, unspecified type Mixed hyperlipidemia Diagnosis Sprain of lateral collateral ligament of right knee, initial encounter- Primary Tear of lateral meniscus of right knee, unspecified tear type, unspecified whether old or current tear, subsequent encounter Diagnosis Closed fracture of right tibial plateau, initial encounter- Primary Diagnosis Arthralgia, unspecified joint- Primary Age-related osteoporosis with current pathological fracture with routine healing, subsequent encounter Vitamin D deficiency, unspecified Diagnosis Lung nodules Other diseases of lung, not elsewhere classified Diagnosis Closed fracture of right tibial plateau with routine healing, subsequent encounter- Primary Primary osteoarthritis of both knees Diagnosis NOBLE (dyspnea on exertion) Other dyspnea and respiratory abnormality Lung nodules Other diseases of lung, not elsewhere classified Tachycardia Unspecified tachycardia Asthma, unspecified asthma severity, unspecified whether complicated, unspecified whether persistent Diagnosis Primary osteoarthritis of right hip- Primary Primary osteoarthritis of left hip Diagnosis Primary osteoarthritis of both hips Summary Purpose Family History Mother Name Dates Details Family history of HTN (hyper tension), benign(401.1, I10) Status:Active Father Name Dates Details Family history of HTN (hyper tension), benign(401.1, I10) Status:Active Mother Name Dates Details Family history of HTN (hyper tension), benign(401.1, I10) Status:Active Father Name Dates Details Family history of HTN (hyper tension), benign(401.1, I10) Status:Active Mother Name Dates Details Family history of HTN (hyper tension), benign(401.1, I10) Status:Active Father Name Dates Details Family history of HTN (hyper tension), benign(401.1, I10) Status:Active Unknown Family Member Name Dates Details HTN (hypertension), benign: Mother, Father Status:Active Unknown Family Member Name Dates Details HTN (hypertension), benign: Mother, Father Status:Active Relationship Condition Age at Onset Recorded Date/T lj mother Hypertension Unknown Relationship Condition Age at Onset Recorded Date/T lj Not Specified Arthritis Unknown Autoimmune disorder Unknown Kidney disorder Unknown Malignant neoplasm of breast Unknown Malignant neoplasm Unknown mother Hypertension Unknown father Asthma Unknown Depression Unknown Diabetes mellitus Unknown High blood cholesterol Unknown Hypertension Unknown Family Member Type Diagnosis Age At Onset No Information Advance Directives Documents on File Type Date Recorded Patient Reconstructive Dentist Expl anation Advance Directives and Living Will Latest Code Status on File Code Status Date Activated Date Inactivated Comments Full Code 02/08/2018 11:00 PM Documents on File Type Date Recorded Patient Reconstructive Dentist Expl anation Advance Directives and Living Will Latest Code Status on File Code Status Date Activated Date Inactivated Comments Full Code 02/08/2018 11:00 PM Documents on File Type Date Recorded Patient Reconstructive Dentist Expl anation Advance Directives and Livin g Will 07/19/2019 11:00 AM Documents on File Type Date Recorded Patient Reconstructive Dentist Expl anation Advance Directives and Livin g Will 08/11/2019 11:00 AM Documents on File Type Date Recorded Patient Reconstructive Dentist Expl anation Advance Directives and Livin g Will 08/11/2019 11:00 AM Documents on File Type Date Recorded Patient Reconstructive Dentist Expl anation Advance Directives and Livin g Will 06/20/2020 11:40 AM Documents on File Type Date Recorded Patient Reconstructive Dentist Expl anation Advance Directives and Livin g Will 08/05/2020 11:40 AM Documents on File Type Date Recorded Patient Reconstructive Dentist Expl anation Advance Directives and Livin g Will 08/05/2020 11:40 AM Documents on File Type Date Recorded Patient Reconstructive Dentist Expl anation Advance Directives and Livin g Will 07/16/2020 11:40 AM Documents on File Type Date Recorded Patient Reconstructive Dentist Expl anation Advance Directives and Livin g Will 07/19/2019 11:00 AM Documents on File Type Date Recorded Patient Reconstructive Dentist Expl anation Advance Directives and Livin g Will 12/20/2020 11:40 AM Latest Code Status on File Code Status Date Activated Date Inactivated Comments Full Code 12/20/2020 3:36 PM 12/20/2020 6:46 PM Full Code - Unverified 12/18/2020 9:49 AM 12/20/2020 12: 08 PM Full Code 02/08/2018 11:00 PM 12/18/2020 9:49 AM Documents on File Type Date Recorded Patient Reconstructive Dentist Expl anation Advance Directives and Livin g Will 12/20/2020 11:40 AM Latest Code Status on File Code Status Date Activated Date Inactivated Comments Full Code 12/20/2020 3:36 PM 12/20/2020 6:46 PM Full Code - Unverified 12/18/2020 9:49 AM 12/20/2020 12: 08 PM Full Code 02/08/2018 11:00 PM 12/18/2020 9:49 AM Documents on File Type Date Recorded Patient Reconstructive Dentist Expl anation Advance Directives and Livin g Will 01/06/2021 9:47 AM Documents on File Type Date Recorded Patient Reconstructive Dentist Expl anation Advance Directives and Livin g Will 01/06/2021 9:47 AM Documents on File Type Date Recorded Patient Reconstructive Dentist Expl anation Advance Directives and Livin g Will 01/20/2021 9:47 AM Documents on File Type Date Recorded Patient Reconstructive Dentist Expl anation Advance Directives and Livin g Will 01/20/2021 9:47 AM Documents on File Type Date Recorded Patient Reconstructive Dentist Expl anation Advance Directives and Livin g Will 02/13/2021 8:18 AM Documents on File Type Date Recorded Patient Reconstructive Dentist Expl anation Advance Directives and Livin g Will 03/31/2021 8:18 AM Documents on File Type Date Recorded Patient Reconstructive Dentist Expl anation Advance Directives and Livin g Will 07/24/2021 10:16 AM Documents on File Type Date Recorded Patient Reconstructive Dentist Expl anation Advance Directives and Livin g Will 09/14/2021 10:16 AM Documents on File Type Date Recorded Patient Reconstructive Dentist Expl anation Advance Directives and Livin g Will 09/14/2021 10:16 AM Documents on File Type Date Recorded Patient Reconstructive Dentist Expl anation Advance Directives and Livin g Will 12/19/2021 6:08 AM Latest Code Status on File Code Status Date Activated Date Inactivated Comments Full Code 12/15/2021 11:46 AM 12/16/2021 4:22 PM Full Code 11/28/2021 3:28 PM 12/15/2021 6:09 AM Full Code 11/21/2021 9:26 AM 11/28/2021 11:55 AM Full Code 12/20/2020 3:36 PM 12/20/2020 6:46 PM Documents on File Type Date Recorded Patient Reconstructive Dentist Expl anation Advance Directives and Livin g Will 12/23/2021 6:08 AM Documents on File Type Date Recorded Patient Reconstructive Dentist Expl anation Advance Directives and Livin g Will 12/30/2021 12:54 AM Latest Code Status on File Code Status Date Activated Date Inactivated Comments Full Code 12/15/2021 11:46 AM 12/16/2021 4:22 PM Full Code 11/28/2021 3:28 PM 12/15/2021 6:09 AM Full Code 11/21/2021 9:26 AM 11/28/2021 11:55 AM Full Code 12/20/2020 3:36 PM 12/20/2020 6:46 PM Latest Code Status on File Date Activated Date Inactivated Comments 12/15/2021 11:46 AM 12/16/2021 4:22 PM Full Code Date Activated Date Inactivated Comments 11/28/2021 3:28 PM 12/15/2021 6:09 AM Full Code Date Activated Date Inactivated Comments 11/21/2021 9:26 AM 11/28/2021 11:55 AM Full Code Date Activated Date Inactivated Comments 12/20/2020 3:36 PM 12/20/2020 6:46 PM Full Code - Unverified Date Activated Date Inactivated Comments 12/18/2020 9:49 AM 12/20/2020 12:08 PM Latest Code Status on File Date Activated Date Inactivated Comments 05/08/2022 12:30 PM 05/09/2022 6:51 PM Full Code Date Activated Date Inactivated Comments 05/08/2022 9:37 AM 05/08/2022 12:30 PM Full Code Date Activated Date Inactivated Comments 05/07/2022 9:37 PM 05/08/2022 9:37 AM Full Code Date Activated Date Inactivated Comments 12/15/2021 11:46 AM 12/16/2021 4:22 PM Latest Code Status on File Date Activated Date Inactivated Comments 05/08/2022 12:30 PM 05/09/2022 6:51 PM Full Code Date Activated Date Inactivated Comments 05/08/2022 9:37 AM 05/08/2022 12:30 PM Full Code Date Activated Date Inactivated Comments 05/07/2022 9:37 PM 05/08/2022 9:37 AM Full Code Date Activated Date Inactivated Comments 12/15/2021 11:46 AM 12/16/2021 4:22 PM Full Code Date Activated Date Inactivated Comments 11/28/2021 3:28 PM 12/15/2021 6:09 AM Advance Directive Response Recorded Date/ Time Living Will No June 18 9:09pm Power of Rail Signal Worker No June 18, 2022 9:09pm Advance Directive Response Recorded Date/ Time Living Will No June 18 8:09pm Power of Rail Signal Worker No June 18, 2022 8:09pm Latest Code Status on File Code Status Date Activated Date Inactivated Comments Full Code - Unverified 05/08/2022 12:30 PM 05/09/2022 6:51 PM Code Status History Code Status Date Activated Date Inactivated Comments Full Code 05/08/2022 9:37 AM 05/08/2022 12:30 PM Full Code 05/07/2022 9:37 PM 05/08/2022 9:37 AM Full Code 12/15/2021 11:46 AM 12/16/2021 4:22 PM Full Code 11/28/2021 3:28 PM 12/15/2021 6:09 AM Advance Directive Response Recorded Date/ Time Living Will No August 30, 2 022 11:59pm Power of Rail Signal Worker No August 30, 2022 11:59pm Advance Directive Response Recorded Date/ Time Living Will No August 31, 2 022 3:28am Power of Rail Signal Worker No August 31, 2022 3:28am Advance Directive Response Recorded Date/ Time Living Will No September 18 1:48pm Power of Rail Signal Worker No September 18, 2022 1:48pm Advance Directive Response Recorded Date/ Time Living Will No September 25 6:15pm Power of Rail Signal Worker No September 25, 2022 6:15pm Advance Directive Response Recorded Date/ Time Living Will No October 08 1:31pm Power of Rail Signal Worker No October 08, 2022 1:31pm Advance Directive Response Recorded Date/ Time Living Will No October 08 4:15pm Power of Rail Signal Worker No October 08, 2022 4:15pm Latest Code Status on File Code Status Date Activated Date Inactivated Comments Full Code - Unverified 05/08/2022 12:30 PM 05/09/2022 6:51 PM Code Status History Code Status Date Activated Date Inactivated Comments Full Code 05/08/2022 9:37 AM 05/08/2022 12:30 PM Full Code 05/07/2022 9:37 PM 05/08/2022 9:37 AM Full Code 12/15/2021 11:46 AM 12/16/2021 4:22 PM Full Code 11/28/2021 3:28 PM 12/15/2021 6:09 AM Advance Directive Response Recorded Date/ Time Living Will No October 08 5:15pm Power of Rail Signal Worker No October 08, 2022 5:15pm Latest Code Status on File Code Status Date Activated Date Inactivated Comments Full Code 07/08/2023 1:19 PM 07/11/2023 3:59 PM Code Status History Code Status Date Activated Date Inactivated Comments Full Code 07/05/2023 8:41 PM 07/08/2023 1:19 PM Full Code - Unverified 05/08/2022 12:30 PM 05/09/2022 6:51 PM Full Code 05/08/2022 9:37 AM 05/08/2022 12:30 PM Full Code 05/07/2022 9:37 PM 05/08/2022 9:37 AM Latest Code Status on File Code Status Date Activated Date Inactivated Comments Full Code 07/08/2023 1:19 PM 07/11/2023 3:59 PM Code Status History Code Status Date Activated Date Inactivated Comments Full Code 07/05/2023 8:41 PM 07/08/2023 1:19 PM Full Code - Unverified 05/08/2022 12:30 PM 05/09/2022 6:51 PM Full Code 05/08/2022 9:37 AM 05/08/2022 12:30 PM Full Code 05/07/2022 9:37 PM 05/08/2022 9:37 AM Latest Code Status on File Code Status Date Activated Date Inactivated Comments Full Code 09/30/2023 6:06 PM Code Status History Code Status Date Activated Date Inactivated Comments Full Code 07/08/2023 1:19 PM 07/11/2023 3:59 PM Full Code 07/05/2023 8:41 PM 07/08/2023 1:19 PM Full Code - Unverified 05/08/2022 12:30 PM 05/09/2022 6:51 PM Full Code 05/08/2022 9:37 AM 05/08/2022 12:30 PM Latest Code Status on File Code Status Date Activated Date Inactivated Comments Full Code 09/30/2023 6:06 PM 10/02/2023 2:57 PM Date Activated Date Inactivated Comments 09/30/2023 6:06 PM 10/02/2023 2:57 PM Date Activated Date Inactivated Comments 07/08/2023 1:19 PM 07/11/2023 3:59 PM Date Activated Date Inactivated Comments 07/05/2023 8:41 PM 07/08/2023 1:19 PM Date Activated Date Inactivated Comments 05/08/2022 12:30 PM 05/09/2022 6:51 PM Date Activated Date Inactivated Comments 05/08/2022 9:37 AM 05/08/2022 12:30 PM Date Activated Date Inactivated Comments 12/10/2023 3:43 PM 12/17/2023 3:09 PM Date Activated Date Inactivated Comments 09/30/2023 6:06 PM 10/02/2023 2:57 PM Date Activated Date Inactivated Comments 07/08/2023 1:19 PM 07/11/2023 3:59 PM Date Activated Date Inactivated Comments 07/05/2023 8:41 PM 07/08/2023 1:19 PM Date Activated Date Inactivated Comments 05/08/2022 12:30 PM 05/09/2022 6:51 PM Directive Yes / No Effective Date File Name No Information Date Activated Date Inactivated Comments 12/10/2023 3:43 PM 12/17/2023 3:09 PM Date Activated Date Inactivated Comments 09/30/2023 6:06 PM 10/02/2023 2:57 PM Date Activated Date Inactivated Comments 07/08/2023 1:19 PM 07/11/2023 3:59 PM Date Activated Date Inactivated Comments 07/05/2023 8:41 PM 07/08/2023 1:19 PM Date Activated Date Inactivated Comments 05/08/2022 12:30 PM 05/09/2022 6:51 PM History of Present Illness * Elba Reyes CNP - 11/03/2018 3:52 PM EST Associated Order(s): LG Jt Injection/Arthrocentesis: L greater trochanteric bursa Post-Procedure Diagnose(s): Trochanteric bursitis of both hips; Primary osteoarthritis of right hip LG Jt Injection/Arthrocentesis: L greater trochanteric bursa Performed by: Elba Reyes CNP Authorized by: Elba Reyes CNP CPT 84666 - Large Joint Arthrocentesis: Consent given by: Patient Time out: Immediately prior to the procedure a time out was called Physician or proceduralist has discussed critical or nonroutine steps, procedure duration and anticipated blood loss: Yes Supporting Documentation: Indications: Pain Procedure Details: Location: Hip Site: L greater trochanteric bursa Prep: patient was prepped and draped in usual sterile fashion Needle size: 22 G Approach: Lateral Medications: 1 mL dexamethasone 4 mg/mL, 1 mL triamcinolone acetonide 40 mg/mL Anesthetic used: Bupivacaine 0.5% and Lidocaine 1% Anesthetic amount (mL): 4 Patient tolerance: Patient tolerated the procedure well with no immediate complications * Elba Reyes CNP - 11/03/2018 3:51 PM EST Associated Order(s): LG Jt Injection/Arthrocentesis: R greater trochanteric bursa Post-Procedure Diagnose(s): Trochanteric bursitis of both hips; Primary osteoarthritis of right hip LG Jt Injection/Arthrocentesis: R greater trochanteric bursa Performed by: Elba Reyes CNP Authorized by: Elba Reyes CNP CPT 32059 - Large Joint Arthrocentesis: Consent given by: Patient Time out: Immediately prior to the procedure a time out was called Physician or proceduralist has discussed critical or nonroutine steps, procedure duration and anticipated blood loss: Yes Supporting Documentation: Indications: Pain Procedure Details: Location: Hip Site: R greater trochanteric bursa Prep: patient was prepped and draped in usual sterile fashion Needle size: 22 G Approach: Lateral Medications: 1 mL dexamethasone 4 mg/mL, 1 mL triamcinolone acetonide 40 mg/mL Anesthetic used: Bupivacaine 0.5% and Lidocaine 1% Anesthetic amount (mL): 4 Patient tolerance: Patient tolerated the procedure well with no immediate complications * Elba Reyes CNP - 11/03/2018 3:41 PM EST Subjective: Kristen Mann is a 68 y.o. female here for Pain of the Right Hip and Pain (pain for several yrs.Dr Olvera gave her injections about 6 months ago) . Hip Pain Patient complains of bilateral hip pain. Onset of the symptoms was several months ago. Inciting event: none. The patient reports the hip pain radiates to groin on the right side. Denies any radiatinggroin pain on L side. Associated symptoms: none. Aggravating symptoms include: putting shoes/socks on R side. Patient has had prior hip problems. Previous visits for this problem: yes, last seen [address] Olvera. Evaluation to date: plain films, which were abnormal arthritis. Treatment to date: OTC analgesics, which have been not very effective. The following portions of the patient's history were reviewed and updated as appropriate: allergies, current medications, past surgical history and problem list. Review of Systems Constitutional: Negative for chills, diaphoresis and fever. Respiratory: Negative for shortness of breath. Cardiovascular: Negative for chest pain, palpitations and leg swelling. Genitourinary: Negative for frequency and urgency. Musculoskeletal: Positive for arthralgias, gait problem, joint swelling and myalgias. Skin: Negative for color change, rash and wound. Neurological: Negative for dizziness, syncope and weakness. Psychiatric/Behavioral: Negative for agitation. The patient is not nervous/anxious. Objective: BP 120/66 Pulse (!) 106 Ht 5' 6" Wt 82.6 kg (182 lb) BMI 29.38 kg/m Physical Exam Constitutional: She is oriented to person, place, and time. She appears well- developed and well-nourished. HENT: Head: Normocephalic and atraumatic. Eyes: Pupils are equal, round, and reactive to light. Neck: Normal range of motion. Neck supple. Cardiovascular: Normal rate and regular rhythm. Pulmonary/Chest: Effort normal and breath sounds normal. Abdominal: Soft. Bowel sounds are normal. Musculoskeletal: She exhibits edema and tenderness. She exhibits no deformity. Neurological: She is alert and oriented to person, place, and time. She has normal reflexes. Skin: Skin is warm and dry. Imaging from this visit:Reviewed bilateral hip films form August 2018 Assessment/Plan: SNOMED CT(R) 1. Trochanteric bursitis of both hips BILATERAL TROCHANTERIC BURSITIS 2. Primary osteoarthritis of right hip OSTEOARTHRITIS OF HIP Cortisone injection B/L hips If no improvement to R groin pain, schedule cortisone injection under fluoro Return in about 3 months (around 01/31/2019), or if symptoms worsen or fail to improve. Elba Reyes CNP 11/03/2018 in this encounter* Elba Reyes CNP - 12/01/2018 8:28 AM EDT Subjective: Kristen Mann is a 68 y.o. female here for Pain of the Left Wrist; Pain of the Right Wrist; and Pain (b/l wrist pain) . She has history of bilateral carpal tunnel by Dr. Olvera last year . Sine then she has developed a mallet deformity to left middle finger. 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 She isconcerned tht she cannot extend her middle finger DIP joint fully. Suggested Bracing of finger for 6 - 8 weeks, but difficulty with compliance due to her job. This is jut beginning . She is only lacking about 2 % full extension. I taped her today and instructed her on taping. Other options ar surgery however if she can live with it she is going to try. The following portions of the patient's history were reviewed and updated as appropriate: allergies, current medications, past surgical history and problem list. Review of Systems Constitutional: Negative for chills, diaphoresis and fever. Respiratory: Negative for shortness of breath. Cardiovascular: Negative for chest pain, palpitations and leg swelling. Genitourinary: Negative for frequency and urgency. Musculoskeletal: Positive for arthralgias and myalgias. Skin: Negative for color change, rash and wound. Neurological: Negative for dizziness, syncope and weakness. Psychiatric/Behavioral: Negative for agitation. The patient is not nervous/anxious. Objective: BP 137/77 Pulse (!) 101 Ht 5' 6" Wt 82.6 kg (182 lb) BMI 29.38 kg/m Physical Exam Constitutional: She is oriented to person, place, and time. She appears well- developed and well-nourished. HENT: Head: Normocephalic and atraumatic. Eyes: Pupils are equal, round, and reactive to light. Neck: Normal range of motion. Neck supple. Cardiovascular: Normal rate and regular rhythm. Pulmonary/Chest: Effort normal and breath sounds normal. Abdominal: Soft. Bowel sounds are normal. Musculoskeletal: She exhibits tenderness. She exhibits no edema. Neurological: She is alert and oriented to person, place, and time. She has normal reflexes. Skin: Skin is warm and dry. Imaging from this visit: Assessment/Plan: Bracing/ taping for mallet finger SNOMED CT(R) 1. Hand pain, left PAIN OF LEFT HAND 2. 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 MALLET FINGER Return if symptoms worsen or fail to improve. Elba Reyes CNP 12/01/2018 in this encounter* Elba Reyes CNP - 04/20/2019 8:30 AM EDT Subjective: Kristen Mann is a 69 y.o. female here for Pain (ep b/l hip oa ) . Hip Pain Patient complains of bilateral hip pain. Onset of the symptoms was several months ago. Inciting event: none. The patient reports the hip pain radiates to groin on the right side. Denies any radiatinggroin pain on L side. Associated symptoms: none. Aggravating symptoms include: putting shoes/socks on R side. Patient has had prior hip problems. Previous visits for this problem: Last seen in October by myself . Evaluation to date: plain films, which were abnormal arthritis. Treatment to date: OTC analgesics, which have been not very effective. Last injection was in October. The following portions of the patient's history were reviewed and updated as appropriate: allergies, current medications, past surgical history and problem list. Review of Systems Constitutional: Negative for chills, diaphoresis and fever. Respiratory: Negative for shortness of breath. Cardiovascular: Negative for chest pain, palpitations and leg swelling. Genitourinary: Negative for frequency and urgency. Musculoskeletal: Positive for arthralgias, gait problem, joint swelling and myalgias. Skin: Negative for color change, rash and wound. Neurological: Negative for dizziness, syncope and weakness. Psychiatric/Behavioral: Negative for agitation. The patient is not nervous/anxious. Objective: BP 128/74 Pulse (!) 104 Ht 5' 6" Wt 82.6 kg (182 lb) BMI 29.38 kg/m Physical Exam Constitutional: She is oriented to person, place, and time. She appears well- developed and well-nourished. HENT: Head: Normocephalic and atraumatic. Eyes: Pupils are equal, round, and reactive to light. Neck: Normal range of motion. Neck supple. Cardiovascular: Normal rate and regular rhythm. Pulmonary/Chest: Effort normal and breath sounds normal. Abdominal: Soft. Bowel sounds are normal. Musculoskeletal: She exhibits edema and tenderness. She exhibits no deformity. Neurological: She is alert and oriented to person, place, and time. She has normal reflexes. Skin: Skin is warm and dry. Imaging from this visit:Reviewed bilateral hip films form August 2018 Assessment/Plan: SNOMED CT(R) 1. Primary osteoarthritis of right hip OSTEOARTHRITIS OF HIP 2. Primary osteoarthritis of left hip OSTEOARTHRITIS OF HIP Cortisone injection B/L hips Elba Reyes CNP 04/20/2019 * Elba Reyes CNP - 04/20/2019 8:24 AM EDT Associated Order(s): LG Jt Injection/Arthrocentesis: L greater trochanteric bursa Post-Procedure Diagnose(s): Primary osteoarthritis of left hip LG Jt Injection/Arthrocentesis: L greater trochanteric bursa Performed by: Elba Reyes CNP Authorized by: Elba Reyes CNP CPT 98914 - Large Joint Arthrocentesis: Consent given by: Patient Time out: Immediately prior to the procedure a time out was called Physician or proceduralist has discussed critical or nonroutine steps, procedure duration and anticipated blood loss: Yes Supporting Documentation: Indications: Pain Procedure Details: Location: Hip Site: L greater trochanteric bursa Prep: patient was prepped and draped in usual sterile fashion Needle size: 22 G Approach: Lateral Medications: 1 mL dexamethasone 4 mg/mL, 1 mL triamcinolone acetonide 40 mg/mL Anesthetic used: Bupivacaine 0.5% and Lidocaine 1% Anesthetic amount (mL): 4 Patient tolerance: Patient tolerated the procedure well with no immediate complications * Elba Reyes CNP - 04/20/2019 8:24 AM EDT Associated Order(s): LG Jt Injection/Arthrocentesis: R greater trochanteric bursa Post-Procedure Diagnose(s): Primary osteoarthritis of right hip LG Jt Injection/Arthrocentesis: R greater trochanteric bursa Performed by: Elba Reyes CNP Authorized by: Elba Reyes CNP CPT 64655 - Large Joint Arthrocentesis: Consent given by: Patient Time out: Immediately prior to the procedure a time out was called Physician or proceduralist has discussed critical or nonroutine steps, procedure duration and anticipated blood loss: Yes Supporting Documentation: Indications: Pain Procedure Details: Location: Hip Site: R greater trochanteric bursa Prep: patient was prepped and draped in usual sterile fashion Needle size: 22 G Approach: Lateral Medications: 1 mL dexamethasone 4 mg/mL, 1 mL triamcinolone acetonide 40 mg/mL Anesthetic used: Bupivacaine 0.5% and Lidocaine 1% Anesthetic amount (mL): 4 Patient tolerance: Patient tolerated the procedure well with no immediate complications documented in this encounter* Angelina Lopez MD - 07/13/2019 9:33 AM EST CC: Persistent cough, shortness of breath and new tachycardia HPI: Kristen Mann is a 69 y.o. female with allergies and asthma who I have not seen in over a year. Her other chronic medical problems include diabetes, acid reflux disease, stroke, and recurrentUTI. She has several new problems: persistent cough, severe dyspnea on exertion, and tachycardia. She states that she has had increased respiratory symptoms over the past 3 months. She has a dry cough which can occur at any time during the day. She has not noted any obvious trigger for her cough. She does not have any nocturnal awakenings. She has not had any recent upper respiratory infections. She has not tried any particular remedy for her cough. She has been off her Singulair and her Breo Ellipta for at least 6 months. She has not had any wheezing or significant chest pain. She has been more dyspneic, only with exertion. She is severely short of breath with short distances throughout her home. She specifically notes severe shortness of breath when climbing stairs. Her family members have commented on her breathing. She stopped taking her Breo Ellipta 6 months ago but states that hershortness of breath has only worsened in the last 3 months. She stopped taking her inhalers becauseshe did not feel that she needed them and they are too expensive. In addition to her cough and shortness of breath, she has had tachycardia. She has resting tachycardia. She is not aware of any palpitations. She has not had any significant lower extremity edema. She is not had any jordan syncope although she has had issues with her balance and has had falling spells. She is scheduled to have a 2D echocardiogram and a 24-hour Holter monitor. She states that her allergies have not been a problem. She specifically denies any sinus congestion, itchy eyes, postnasal drip. She continues to have problems with recurrent urinary tract infections and has been on trimethoprim for the past 6 months. She had previously been on nitrofurantoin. Nitrofurantoin can cause fibrotic lung disease and rare instances. I independently reviewed her chest x-ray from July 03 which shows no significant abnormalities other than low lung volumes. Current Outpatient Medications Medication Sig Dispense Refill amitriptyline (ELAVIL) 25 MG tablet nightly . citalopram (CELEXA) 40 MG tablet Take 40 mg by mouth daily. ezetimibe (ZETIA) 10 mg tablet 6 HUMALOG 100 unit/mL injection 7 Units 3 (three) times a day before meals . insulin glargine (LANTUS) 100 unit/mL injection Inject 22 Units under the skin daily . metFORMIN (GLUCOPHAGE-XR) 500 MG 24 hr tablet Take 1 (one) tablet (500 mg total) by mouth 2 (two) times a day Pt takes 2 tablets 2 times a day. Hold taking for [address] contrast study, OK to resume on 02/11/2018.. 60 tablet 0 trimethoprim (TRIMPEX) 100 mg tablet TAKE 1 TABLET BY MOUTH ONCE DAILY FOR 30 DAYS 11 VITAMIN D2 50,000 unit capsule 4 fluticasone-vilanterol (BREO ELLIPTA) 200-25 mcg/dose DsDv Inhale 1 puff daily. No current facility-administered medications for this visit. PMH, surgical history, family history, social history: Reviewed, unchanged except where noted. Review of Systems - History obtained from the patient General ROS: positive for - fatigue negative for - chills, fever, night sweats or weight loss Ophthalmic ROS: negative for - blurry vision or eye pain ENT ROS: negative for - nasal congestion, sore throat or vertigo Respiratory ROS: positive for - cough and shortness of breath negative for - sputum changes or wheezing Cardiovascular ROS: positive for - dyspnea on exertion and rapid heart rate negative for - edema, irregular heartbeat or orthopnea Musculoskeletal ROS: positive for - joint pain Neurological ROS: no TIA or stroke symptoms BP (!) 102/58 Pulse (!) 106 Resp 16 Wt 90.3 kg (199 lb) SpO2 97% BMI 32.12 kg/m General appearance: alert, appears stated age, cooperative, no distress and moderately obese Head: Normocephalic, without obvious abnormality Eyes: negative findings: lids and lashes normal, conjunctivae and sclerae normal and corneas clear Throat: lips, tongue, mucosa normal Neck: no adenopathy, no JVD, supple, symmetrical, trachea midline and thyroid not enlarged, symmetric, no tenderness/mass/nodules Lungs: clear to auscultation bilaterally, normal percussion bilaterally and not labored Chest wall: no tenderness, normal configuration Heart: regular rate and rhythm, no murmurs, tachycardia Extremities: extremities normal, atraumatic, no cyanosis or edema or clubbing Skin: Skin color, texture, turgor normal. No rashes or lesions Musculoskeletal: no joint swelling or erythema, no muscle weakness Neurologic: Grossly normal, oriented ASSESMENT/PLAN: Persistent cough SOB Tachycardia Asthma Her cough and shortness of breath in part could be due to inadequate treatment for her asthma. I gave her samples of Dulera 200/5 and instructed her on usage. I did not have any Breo Ellipta available. The degree of her dyspnea is out of proportion to the severity of her asthma and she has not had any wheezing. She has gained 15 pounds since her last visit so weight gain could also be an added contributing factor. I agree with cardiac evaluation. In addition I believe it would be prudent to obtain a chest CT to look for any early interstitial lung disease especially in light of her low lung volumes on chest x-ray. documented in this encounter* Cecilia Campos MD - 08/09/2019 9:00 AM EST General Cardiology Clinic Consult Heart & Vascular [facility] 08/09/2019 Cecilia Campos MD [address] [place] [address] Medical Office [facility] [id number] Patient: Kristen Mann Date of : 1950 (69 y.o.) Referring Provider: Angelina Lopez MD PCP: Behzad Mcintyre MD Assessment & Plan Tachycardia She was referred here for evaluation of ongoing tachycardia. Her EKG here shows sinus tachycardia. The patient tells me for several months she has been having symptoms of dizziness, she apparently did pass out one time in her shower. She has had evaluation performed through her local community physician, this is included a monitor, by her communication to me today apparently there were no significant arrhythmias noted. She also had her carotids updated, again there was no progression of disease. We are trying to get test results. We have the echo completed here several months ago which showednormal systolic function. In reviewing her office visits in our records over the past several years, I note she was tachycardic even in 2018 during office visits. Additionally she notes more recent problems with exertional dyspnea, that is been bothersome to her and progressive in the past several months. Apparently her pulmonary function studies are not severe enough to account for this level ofdyspnea, she does have sleep apnea but cannot tolerate treatment. She does not describe PND orthopnea. She has no edema complaints. Recommendations: 1. We will try to obtain test results previously completed, I did not repeat her echo or Holter at this time 2. She should have a perfusion study completed to rule out ischemic heart disease, family history notable in her father who was in his 80s who had bypass surgery. She has additional other risk factors. 3. I will check a TSH level, she does not recall that she has had that checked in the past. If her stress study does not show any significant ischemic burden, I would consider treatment with a beta-rosalio, we have to be cautious in regards to any exacerbation of her underlying asthma. We will be in contact with her otherwise if there is concerns on her stress study, and I like to follow her up here in the office for reassessment. Addendum: Review of recent Holter showed an average heart rate of 103, maximum of 141 sinus tachycardia, rareatrial activity, rare ventricular ectopy echo completed July 2019 showed EF of 55 to 60%, sigmoid septum, mild mitral annular calcification mild mitral insufficiency mild aortic valve sclerosis chest x-ray showed no acute disease, carotid duplex study showed less than 50% stenosis in the carotid vascular bilaterally, EKG done on March 15 showed sinus rhythm heart rate was 99, cannot exclude aninferior infarct age undetermined Carotid stenosis, right We will try to obtain results recently of her updated carotid studies completed at her local community [facility]. I note that she has hyperlipidemia, on Zetia, consideration for statin therapy would be appropriate but I would refer that back to her primary care physician if not previously addressed Follow-up: Return in about 3 months (around 11/08/2019). Subjective History of Present Illness: Kristen Mann is a 69 y.o. female This is a 69-year-old female whom is being evaluated with complaints of tachycardia. 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 She did have a CTA which showed a 40% internal carotid artery stenosis on the right side. noted more recently to have problems with cough and shortness of breath as well as this tachycardia. Apparently her pulmonary function studies do not show severe obstruction. CT scan of her chest is notable for bilateral small pulmonary nodules, which are calcified likely representing granulomatous disease. She had an echo completed in February 2018 which showed an EF of 55 to 60%, probable diastolic dysfunction. Mild to moderate nonspecific valve degeneration. Previous transesophageal echo studyin October 2015 showed no source of cardiac emboli, aortic valve leaflets are mildly thickened, noevidence of any aortic valve pathophysiology, normal left ventricular systolic function, no atrial septal defect, no patent foramen ovale. Objective Imaging: I independently reviewed the EKG and agree with the interpretation(s) with the following comments. Sinus tachycardia, poor R wave progression. ECG 12 lead Final Result by Cecilia Campso MD (08/09/2019 0905) Echocardiogram complete Final Result by Marcia Barrientos MD (02/09/2018 1023) Transesophageal Echocardiogram Final Result by Axel Soares MD (10/16/2015 0935) Review of Systems: Review of Systems Constitution: Negative for fever. Cardiovascular: Positive for dyspnea on exertion, palpitations and syncope. Negative for chest pain, claudication, cyanosis, irregular heartbeat, leg swelling, near-syncope, orthopnea and paroxysmal nocturnal dyspnea. Respiratory: Positive for shortness of breath. Gastrointestinal: Negative for hematemesis and hematochezia. Neurological: Negative for focal weakness, paresthesias and weakness. Psychiatric/Behavioral: Negative for altered mental status. All other systems reviewed and are negative. Past Medical History: Diagnosis Date Asthma Atopy Diabetes (HCC) GERD (gastroesophageal reflux disease) Granulomatous disease (HCC) Migraine headache Recurrent UTI 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[facility]) Past Surgical History: Procedure Laterality Date APPENDECTOMY SECTION, CLASSIC x2 CHOLECYSTECTOMY OPEN EYE SURGERY HYSTERECTOMY Family History Problem Relation Age of Onset Heart disease Father Asthma Mother Social History Tobacco Use Smoking Status Never Smoker Smokeless Tobacco Never Used Allergies: Morphine; Penicillins; and Sulfa (sulfonamide antibiotics) HOME Medications: Current Outpatient Medications on File Prior to Visit Medication Sig amitriptyline (ELAVIL) 25 MG tablet nightly . citalopram (CELEXA) 40 MG tablet Take 40 mg by mouth daily. ezetimibe (ZETIA) 10 mg tablet fluticasone-vilanterol (BREO ELLIPTA) 200-25 mcg/dose DsDv Inhale 1 puff daily. HUMALOG 100 unit/mL injection 7 Units 3 (three) times a day before meals . insulin glargine (LANTUS) 100 unit/mL injection Inject 22 Units under the skin daily . metFORMIN (GLUCOPHAGE-XR) 500 MG 24 hr tablet Take 1 (one) tablet (500 mg total) by mouth 2 (two) times a day Pt takes 2 tablets 2 times a day. Hold taking for [address] contrast study, OK to resume on 02/11/2018.. naproxen (NAPROSYN) 250 MG tablet Take 250 mg by mouth 2 (two) times a day as needed . trimethoprim (TRIMPEX) 100 mg tablet TAKE 1 TABLET BY MOUTH ONCE DAILY FOR 30 DAYS VITAMIN D2 50,000 unit capsule No current facility-administered medications on file prior to visit. Physical Examination: BP 141/86 Pulse (!) 111 Ht 5' 6" Wt 90.3 kg (199 lb) SpO2 98% BMI 32.12 kg/m Physical Exam Constitutional: She is oriented to person, place, and time. She appears well- developed and well-nourished. HENT: Head: Normocephalic. Eyes: No scleral icterus. Neck: Neck supple. No thyromegaly present. Cardiovascular: Regular rhythm and normal heart sounds. Tachycardia present. Exam reveals no gallopand no friction rub. No murmur heard. Pulmonary/Chest: Effort normal and breath sounds normal. She has no wheezes. She has no rales. Abdominal: Soft. There is no abdominal tenderness. There is no rebound and no guarding. Musculoskeletal: General: No edema. Neurological: She is alert and oriented to person, place, and time. Skin: Skin is warm and dry. Psychiatric: She has a normal mood and affect. Vitals reviewed. Lab Results Component Value Date CHOL 227 (H) 02/09/2018 LDLCALC 135 (H) 02/09/2018 TRIG 194 (H) 02/09/2018 HDL 53 02/09/2018 documented in this encounter* Elba Reyes CNP - 10/30/2019 12:30 PM EST Associated Order(s): LG Jt Injection/Arthrocentesis: L greater trochanteric bursa Post-Procedure Diagnose(s): Primary osteoarthritis of left hip LG Jt Injection/Arthrocentesis: L greater trochanteric bursa Performed by: Elba Reyes CNP Authorized by: Elba Reyes CNP CPT 42815 - Large Joint Arthrocentesis: Consent given by: Patient Time out: Immediately prior to the procedure a time out was called Physician or proceduralist has discussed critical or nonroutine steps, procedure duration and anticipated blood loss: Yes Supporting Documentation: Indications: Pain Procedure Details: Location: Hip Site: L greater trochanteric bursa Prep: patient was prepped and draped in usual sterile fashion Needle size: 22 G Approach: Lateral Medications: 1 mL dexamethasone 4 mg/mL, 1 mL triamcinolone acetonide 40 mg/mL Anesthetic used: Bupivacaine 0.5% and Lidocaine 1% Anesthetic amount (mL): 4 Patient tolerance: Patient tolerated the procedure well with no immediate complications * Elba Reyes CNP - 10/30/2019 12:30 PM EST Associated Order(s): LG Jt Injection/Arthrocentesis: R greater trochanteric bursa Post-Procedure Diagnose(s): Primary osteoarthritis of right hip LG Jt Injection/Arthrocentesis: R greater trochanteric bursa Performed by: Elba Reyes CNP Authorized by: Elba Reyes CNP CPT 47445 - Large Joint Arthrocentesis: Consent given by: Patient Time out: Immediately prior to the procedure a time out was called Physician or proceduralist has discussed critical or nonroutine steps, procedure duration and anticipated blood loss: Yes Supporting Documentation: Indications: Pain Procedure Details: Location: Hip Site: R greater trochanteric bursa Prep: patient was prepped and draped in usual sterile fashion Needle size: 22 G Approach: Lateral Medications: 1 mL dexamethasone 4 mg/mL, 1 mL triamcinolone acetonide 40 mg/mL Anesthetic used: Bupivacaine 0.5% and Lidocaine 1% Anesthetic amount (mL): 4 Patient tolerance: Patient tolerated the procedure well with no immediate complications * Elba Reyes CNP - 10/30/2019 12:30 PM EST Subjective: Kristen Mann is a 69 y.o. female here for No chief complaint on file. . Hip Pain Patient complains of bilateral hip pain. Onset of the symptoms was several months ago. Inciting event: none. The patient reports the hip pain radiates to groin on the right side. Denies any radiatinggroin pain on L side. Associated symptoms: none. Aggravating symptoms include: putting shoes/socks on R side. Patient has had prior hip problems. Previous visits for this problem: Last seen in October by myself . Evaluation to date: plain films, which were abnormal arthritis. Treatment to date: OTC analgesics, which have been not very effective. Last injection was in October. The following portions of the patient's history were reviewed and updated as appropriate: allergies, current medications, past surgical history and problem list. Review of Systems Constitutional: Negative for chills, diaphoresis and fever. Respiratory: Negative for shortness of breath. Cardiovascular: Negative for chest pain, palpitations and leg swelling. Genitourinary: Negative for frequency and urgency. Musculoskeletal: Positive for arthralgias, gait problem, joint swelling and myalgias. Skin: Negative for color change, rash and wound. Neurological: Negative for dizziness, syncope and weakness. Psychiatric/Behavioral: Negative for agitation. The patient is not nervous/anxious. Objective: There were no vitals taken for this visit. Physical Exam Constitutional: She is oriented to person, place, and time. She appears well- developed and well-nourished. HENT: Head: Normocephalic and atraumatic. Eyes: Pupils are equal, round, and reactive to light. Neck: Normal range of motion. Neck supple. Cardiovascular: Normal rate and regular rhythm. Pulmonary/Chest: Effort normal and breath sounds normal. Abdominal: Soft. Bowel sounds are normal. Musculoskeletal: General: Tenderness and edema present. No deformity. Neurological: She is alert and oriented to person, place, and time. She has normal reflexes. Skin: Skin is warm and dry. Assessment/Plan: 1. Primary osteoarthritis of right hip 2. Primary osteoarthritis of left hip Cortisone injection B/L hips Elba Reyes CNP 10/26/2019 documented in this encounter* Angelina Lopez MD - 11/07/2019 8:30 AM EST CC: follow-up SOB HPI: Kristen Mann is a 69 y.o. female non-smoker with allergies, diabetes and history of strokewho was having problems with persistent cough, shortness of breath and tachycardia. She had stoppedusing her inhaler on a regular basis mainly due to cost. She also had significant weight gain. Updated pulmonary function test did not show any significant obstruction. She was restarted on Breo Ellipta 200/25. A chest CT was obtained that showed bilateral pulmonary nodules some of which are calcified. Due to her tachycardia and shortness of breath, she was sent for cardiac evaluation. Her Holtermonitor only showed sinus tachycardia. No significant arrhythmia. Nuclear medicine stress test was n egative for ischemia. She was started on a beta-rosalio which has helped her tachycardia although she is having some side effects to the medication including fatigue and constipation. From a respiratory standpoint, she continues to have some dyspnea on exertion and intermittent nonproductive cough.She does not use her Breo Ellipta on a regular basis since it caused some hoarseness of her voice. She has not had any thrush. She has not been ill with any upper respiratory infections nor required hospitalization. She has a new problem on vertigo. Her vertigo seems to be positional in nature, especially when she is looking down and brings her head up rapidly. She has had problems with left ear pressure and decreased hearing. She has been using Zyrtec with decongestant without much relief. Stress test 08/11/19 Nuclear Cardiology Conclusion: Normal exercise myocardial perfusion with Tc-99m tetrofosmin imaging. Overall intermediate-risk study based on SCAI criteria (1-3% predicted annual cardiac mortality). Intermediate risk study based on functional capacity. Agosto treadmill score 3. Normal myocardial perfusion in all segments on stress imaging. No rest imaging performed. Normal left ventricular size, wall motion and systolic function with post-stress LVEF 74%. Stress ECG Conclusion: Normal exercise stress ECG . The patient experienced no chest pain. Exercise Protocol: A Agosto treadmill score of 3 was achieved. Total Exercise Time The patient exercised for a total of 03:00 min using the Standard Saeid exercise protocol, achieving stage 1 and a max METs of 4.6. A Agosto treadmill score of 3 was achieved. Baseline ECG: Normal sinus rhythm. Stress ECG : Sinus tachycardia. No ectopy noted. No ST-segment depression at greater than or equal to 85% MPHR. Recovery ECG: Sinus tachycardia. No ectopy noted. Perfusion Interpretation: Stress nuclear myocardial perfusion imaging was normal. No rest imaging was performed. The stress nuclear myocardial perfusion imaging was normal. No resting imaging was performed. Wall Motion Interpretation: The patient's calculated post stress LVEF was 74%. The patient's end diastolic volume was 43ml. Thepatient's end systolic volume was 10ml. Gated imaging under post-stress conditions demonstrated normal wall motion. Reviewed EMR regarding cardiology evaluation: Sinus tachycardia without significant cardiac pathology. Placed on beta rosalio. Component Ref Range & Units 3mo ago TSH 0.27 - 4.20 mcIU/mL 2.02 Current Outpatient Medications Medication Sig Dispense Refill amitriptyline (ELAVIL) 25 MG tablet nightly . citalopram (CELEXA) 40 MG tablet Take 40 mg by mouth daily. ezetimibe (ZETIA) 10 mg tablet 6 fluticasone-vilanterol (BREO ELLIPTA) 200-25 mcg/dose DsDv Inhale 1 puff daily. HUMALOG 100 unit/mL injection 7 Units 3 (three) times a day before meals . insulin glargine (LANTUS) 100 unit/mL injection Inject 22 Units under the skin daily . metFORMIN (GLUCOPHAGE-XR) 500 MG 24 hr tablet Take 1 (one) tablet (500 mg total) by mouth 2 (two) times a day Pt takes 2 tablets 2 times a day. Hold taking for [address] contrast study, OK to resume on 02/11/2018.. 60 tablet 0 metoprolol succinate (TOPROL-XL) 25 MG 24 hr tablet Take 25 mg by mouth daily . naproxen (NAPROSYN) 250 MG tablet Take 250 mg by mouth 2 (two) times a day as needed . trimethoprim (TRIMPEX) 100 mg tablet TAKE 1 TABLET BY MOUTH ONCE DAILY FOR 30 DAYS 11 VITAMIN D2 50,000 unit capsule 4 No current facility-administered medications for this visit. PMH, surgical history, family history, social history: Reviewed, unchanged except where noted. Review of Systems - History obtained from the patient General ROS: positive for - fatigue and weight gain Ophthalmic ROS: negative for - blurry vision, eye pain or itchy eyes ENT ROS: positive for - hearing change, vertigo and vocal changes negative for - nasal congestion, nasal discharge or sinus pain Respiratory ROS: positive for - shortness of breath negative for - cough, sputum changes or wheezing Cardiovascular ROS: positive for - rapid heart rate negative for - chest pain, edema, irregular heartbeat or palpitations Neurological ROS: no TIA or stroke symptoms positive for - dizziness BP 123/68 Pulse 85 Resp 16 Wt 90.3 kg (199 lb) SpO2 98% BMI 32.14 kg/m General appearance: alert, appears stated age, cooperative and no distress Head: Normocephalic, without obvious abnormality Eyes: negative findings: lids and lashes normal, conjunctivae and sclerae normal and corneas clear Ears: normal TM's and external ear canals both ears Throat: lips, mucosa, and tongue normal; teeth and gums normal Neck: no adenopathy, no JVD, supple, symmetrical, trachea midline and thyroid not enlarged, symmetric, no tenderness/mass/nodules Lungs: clear to auscultation bilaterally, normal percussion bilaterally and not labored Chest wall: no tenderness, normal configuration Heart: regular rate and rhythm, S1, S2 normal, no murmur, click, rub or gallop Extremities: extremities normal, atraumatic, no cyanosis or edema Skin: Skin color, texture, turgor normal. No rashes or lesions Lymph nodes: no cervical or supraclavicular nodes Neurologic: Grossly normal, normal gait, oriented ASSESMENT/PLAN: Asthma Lung nodules She needs to continue on her inhaler therapy and use it regularly. I decreased her dose to 100/25 due to her voice issues. I sent in a prescription. Her vertigo sounds as if it is related to eustachian tube dysfunction and I would recommend continued use of a decongestant. With regards to her lung nodules, they likely represent granulomatous disease. She will have a follow-up in July which will be [address]. RTC 6 months or sooner with problems. documented in this encounter* Cecilia Campos MD - 11/13/2019 9:20 AM EDT General Cardiology Clinic Follow-up Heart & Vascular [facility] 11/13/2019 Cecilia Campos MD [address] [place] [address] Medical Office [facility] [id number] Patient: Kristen Mann Date of : 1950 (69 y.o.) PCP: Behzad Mcintyre MD Assessment & Plan Tachycardia Heart rate is better today on her exam. She will continue her medications as currently prescribed. Follow-up: Return in about 3 months (around 02/13/2020). Subjective History of Present Illness: Kristen Mann is a 69 y.o. female This 69-year-old comes in today for follow-up appointment. I saw her in August 2019 with complaints of tachycardia. She has a history of asthma, diabetes, complex migraines. She has mild right internal carotid stenosis. Previous echoes have shown EF 55 to 60%, nonspecific degenerative valve disease. I reviewed a Holter that she had completed recently that showed an average heart rate of 103, maximum of 141 which was sinus tachycardia. Echo in July 2019 showed an EF of 55 to 60%. She underwent an exercise myocardial perfusion study which showed normal perfusion. Ejection fraction preserved. I reviewed the results with Kristen today. Since being on a beta-rosalio she believes she is somewhat more fatigue. She does have sleep apnea, was unable to tolerate any device therapy. She states she may sleep for several hours every morning. She is also not been doing much of any exercise due to problems with chronic back pain. I have encouraged her to increase her activity as best she can, I am going to keep her on this dose of metoprolol succinate as currently prescribed and reassess her symptoms again in 3 months. I do not think she needs any additional testing at this time. More than 50% of today's visit was spent in counseling and review of test results. Objective ECG 12 lead Final Result by Cecilia Campos MD (08/09/2019 0905) Echocardiogram complete Final Result by Marcia Barrientos MD (02/09/2018 1023) Transesophageal Echocardiogram Final Result by Axel Soares MD (10/16/2015 0935) Review of Systems: Review of Systems Constitution: Positive for malaise/fatigue. Negative for fever. Cardiovascular: Negative for chest pain, claudication, cyanosis, dyspnea on exertion, irregular heartbeat, leg swelling, near-syncope, orthopnea, palpitations, paroxysmal nocturnal dyspnea and syncope. Respiratory: Negative for shortness of breath. Musculoskeletal: Positive for back pain. Gastrointestinal: Negative for hematemesis and hematochezia. Neurological: Negative for focal weakness, paresthesias and weakness. Psychiatric/Behavioral: Negative for altered mental status. All other systems reviewed and are negative. HOME Medications: Current Outpatient Medications on File Prior to Visit Medication Sig amitriptyline (ELAVIL) 25 MG tablet nightly . cetirizine-pseudoePHEDrine (ZyrTEC-D) 5-120 mg per tablet Take 1 tablet by mouth daily . citalopram (CELEXA) 40 MG tablet Take 40 mg by mouth daily. ezetimibe (ZETIA) 10 mg tablet Take 10 mg by mouth daily . fluticasone furoate-vilanteroL (Breo Ellipta) 100-25 mcg/dose DsDv Inhale 1 Inhalation daily . HUMALOG 100 unit/mL injection 7 Units 3 (three) times a day before meals . insulin glargine (LANTUS) 100 unit/mL injection Inject 22 Units under the skin daily . metFORMIN (GLUCOPHAGE-XR) 500 MG 24 hr tablet Take 1 (one) tablet (500 mg total) by mouth 2 (two) times a day Pt takes 2 tablets 2 times a day. Hold taking for [address] contrast study, OK to resume on 02/11/2018.. metoprolol succinate (TOPROL-XL) 25 MG 24 hr tablet Take 25 mg by mouth daily . naproxen (NAPROSYN) 250 MG tablet Take 250 mg by mouth 2 (two) times a day as needed . nitrofurantoin (MACRODANTIN) 25 MG capsule Take 25 mg by mouth nightly . VITAMIN D2 50,000 unit capsule Take 50,000 Units by mouth once a week . [DISCONTINUED] trimethoprim (TRIMPEX) 100 mg tablet TAKE 1 TABLET BY MOUTH ONCE DAILY FOR 30 DAYS No current facility-administered medications on file prior to visit. Vital Signs: BP 110/68 Pulse 74 Ht 5' 5" Wt 94.3 kg (208 lb) SpO2 100% BMI 34.61 kg/m Physical Exam Constitutional: She is oriented to person, place, and time. She appears well- developed and well-nourished. HENT: Head: Normocephalic. Eyes: No scleral icterus. Neck: Neck supple. No thyromegaly present. Cardiovascular: Normal rate, regular rhythm and normal heart sounds. Exam reveals no gallop and no friction rub. No murmur heard. Pulmonary/Chest: Effort normal and breath sounds normal. She has no wheezes. She has no rales. Abdominal: Soft. There is no abdominal tenderness. There is no rebound and no guarding. Musculoskeletal: General: No edema. Neurological: She is alert and oriented to person, place, and time. Skin: Skin is warm and dry. Psychiatric: She has a normal mood and affect. Vitals reviewed. Labs: I personally reviewed and interpreted the labs documented below. Lab Results Component Value Date CHOL 227 (H) 02/09/2018 LDLCALC 135 (H) 02/09/2018 TRIG 194 (H) 02/09/2018 HDL 53 02/09/2018 Creatinine clearance cannot be calculated (Patient's most recent lab result is older than the maximum 14 days allowed.) documented in this encounter* Elba Reyes CNP - 02/19/2020 1:00 PM EDT Associated Order(s): LG Jt Injection/Arthrocentesis: L greater trochanteric bursa Post-Procedure Diagnose(s): Primary osteoarthritis of left hip LG Jt Injection/Arthrocentesis: L greater trochanteric bursa Performed by: Elba Reyes CNP Authorized by: Elba Reyes CNP CPT 14181 - Large Joint Arthrocentesis: Consent given by: Patient Time out: Immediately prior to the procedure a time out was called Physician or proceduralist has discussed critical or nonroutine steps, procedure duration and anticipated blood loss: Yes Supporting Documentation: Indications: Pain Procedure Details: Location: Hip Site: L greater trochanteric bursa Prep: patient was prepped and draped in usual sterile fashion Needle size: 22 G Approach: Lateral Medications: 1 mL dexamethasone 4 mg/mL, 1 mL triamcinolone acetonide 40 mg/mL Anesthetic used: Bupivacaine 0.5% and Lidocaine 1% Anesthetic amount (mL): 4 Patient tolerance: Patient tolerated the procedure well with no immediate complications * Elba Reyes CNP - 02/19/2020 1:00 PM EDT Associated Order(s): LG Jt Injection/Arthrocentesis: R greater trochanteric bursa Post-Procedure Diagnose(s): Primary osteoarthritis of right hip LG Jt Injection/Arthrocentesis: R greater trochanteric bursa Performed by: Elba Reyes CNP Authorized by: Elba Reyes CNP CPT 00116 - Large Joint Arthrocentesis: Consent given by: Patient Time out: Immediately prior to the procedure a time out was called Physician or proceduralist has discussed critical or nonroutine steps, procedure duration and anticipated blood loss: Yes Supporting Documentation: Indications: Pain Procedure Details: Location: Hip Site: R greater trochanteric bursa Prep: patient was prepped and draped in usual sterile fashion Needle size: 22 G Approach: Lateral Medications: 1 mL dexamethasone 4 mg/mL, 1 mL triamcinolone acetonide 40 mg/mL Anesthetic used: Bupivacaine 0.5% and Lidocaine 1% Anesthetic amount (mL): 4 Patient tolerance: Patient tolerated the procedure well with no immediate complications * Elba Reyes CNP - 02/19/2020 1:00 PM EDT Subjective: Kristen Mann is a 69 y.o. female here for No chief complaint on file. . Hip Pain Patient complains of bilateral hip pain. Onset of the symptoms was several months ago. Inciting event: none. The patient reports the hip pain radiates to groin on the right side. Denies any radiatinggroin pain on L side. Associated symptoms: none. Aggravating symptoms include: putting shoes/socks on R side. Patient has had prior hip problems. Previous visits for this problem: Last seen in October by myself . Evaluation to date: plain films, which were abnormal arthritis. Treatment to date: OTC analgesics, which have been not very effective. Last injection was in October. The following portions of the patient's history were reviewed and updated as appropriate: allergies, current medications, past surgical history and problem list. Review of Systems Constitutional: Negative for chills, diaphoresis and fever. Respiratory: Negative for shortness of breath. Cardiovascular: Negative for chest pain, palpitations and leg swelling. Genitourinary: Negative for frequency and urgency. Musculoskeletal: Positive for arthralgias, gait problem, joint swelling and myalgias. Skin: Negative for color change, rash and wound. Neurological: Negative for dizziness, syncope and weakness. Psychiatric/Behavioral: Negative for agitation. The patient is not nervous/anxious. Objective: There were no vitals taken for this visit. Physical Exam Constitutional: She is oriented to person, place, and time. She appears well- developed and well-nourished. HENT: Head: Normocephalic and atraumatic. Eyes: Pupils are equal, round, and reactive to light. Neck: Normal range of motion. Neck supple. Cardiovascular: Normal rate and regular rhythm. Pulmonary/Chest: Effort normal and breath sounds normal. Abdominal: Soft. Bowel sounds are normal. Musculoskeletal: General: Tenderness and edema present. No deformity. Neurological: She is alert and oriented to person, place, and time. She has normal reflexes. Skin: Skin is warm and dry. Assessment/Plan: 1. Primary osteoarthritis of right hip 2. Primary osteoarthritis of left hip Cortisone injection B/L hips Elba Reyes CNP 02/18/2020 documented in this encounter* Eliecer Hill CNP - 04/24/2020 8:50 AM EDT Kristen Mann 1950 CC: 70 y.o. is a she with right knee pain. She states that at the end of February, she had a fall. She tripped and fell as she was walking down the stairs. The left leg originally hurt but then it got better but the right knee began to hurt. She also had an injection of Dupixent by her forest pathology teacher around February 27. After the injection she started to have joint pain all throughout her body. Her knees ached, her back ached, everything was just sore and stiff. She contacted her forest pathology teacher who told her that there was no way the injection had anything to do with the aches and pains. She states that they have gradually improved but she is still sore. She has also been receiving injections in her lumbar spine and her hip bursa. The lumbar spine injection was in the beginning of February and she gotlittle to no relief from it. She states that she receives these for lumbar degenerative disc disease. Her pain management doctor in [place] does the injections. The hip bursa injections have continued to help but she is concerned about so much cortisone given that she is in insulin dependant diabetic. She is planning a trip in the next couple of weeks and wants to check the knees prior to this. The pain is in and around the knee. She denies swelling, just that it hurts occasionally and sometimes more with stairs. She denies any instability of the knee, no locking, catching or popping. She hasbeen taking Tylenol and Naproxen for pain which does seem to help. Chief Complaint Patient presents with Right Knee - Pain . HPI: Knee Pain: PMH: Allergies Allergen Reactions Morphine Shortness Of Breath Penicillins Rash Sulfa (Sulfonamide Antibiotics) Hives Current Outpatient Medications: amitriptyline (ELAVIL) 25 MG tablet, nightly ., Disp: , Rfl: cetirizine-pseudoePHEDrine (ZyrTEC-D) 5-120 mg per tablet, Take 1 tablet by mouth daily ., Disp: , Rfl: citalopram (CELEXA) 40 MG tablet, Take 40 mg by mouth daily., Disp: , Rfl: ezetimibe (ZETIA) 10 mg tablet, Take 10 mg by mouth daily ., Disp: , Rfl: 6 fluticasone furoate-vilanteroL (Breo Ellipta) 100-25 mcg/dose DsDv, Inhale 1 Inhalation daily ., Disp: 1 Inhaler, Rfl: 11 HUMALOG 100 unit/mL injection, 7 Units 3 (three) times a day before meals ., Disp: , Rfl: insulin glargine (LANTUS) 100 unit/mL injection, Inject 22 Units under the skin daily ., Disp: , Rfl: metoprolol succinate (TOPROL-XL) 25 MG 24 hr tablet, Take 25 mg by mouth daily ., Disp: , Rfl: naproxen (NAPROSYN) 250 MG tablet, Take 250 mg by mouth 2 (two) times a day as needed ., Disp: , Rfl: nitrofurantoin (MACRODANTIN) 25 MG capsule, Take 25 mg by mouth nightly ., Disp: , Rfl: VITAMIN D2 50,000 unit capsule, Take 50,000 Units by mouth once a week ., Disp: , Rfl: 4 metFORMIN (GLUCOPHAGE-XR) 500 MG 24 hr tablet, Take 1 (one) tablet (500 mg total) by mouth 2 (two) times a day Pt takes 2 tablets 2 times a day. Hold taking for [address] contrast study, OK to resume on 02/11/2018.., Disp: 60 tablet, Rfl: 0 Past Medical History: Diagnosis Date Asthma Atopy Diabetes (HCC) GERD (gastroesophageal reflux disease) Granulomatous disease (HCC) Hyperlipidemia Migraine headache Recurrent UTI 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HCC) Tachycardia Past Surgical History: Procedure Laterality Date APPENDECTOMY CARDIAC CATHETERIZATION SECTION, CLASSIC x2 CHOLECYSTECTOMY OPEN EYE SURGERY HYSTERECTOMY Social History Socioeconomic History Marital status: Spouse name: Not on file Number of children: 3 Years of education: Not on file Highest education level: Not on file 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 Social Needs Financial resource strain: Not on file Food insecurity Worry: Not on file Inability: Not on file Transportation needs Medical: Not on file Non-medical: Not on file Tobacco Use Smoking status: Never Smoker Smokeless tobacco: Never Used Substance and Sexual Activity Alcohol use: No Drug use: No Sexual activity: Not on file Lifestyle Physical activity Days per week: Not on file Minutes per session: Not on file Stress: Not on file Relationships Social connections Talks on phone: Not on file Gets together: Not on file Attends pentecostal service: Not on file Active member of club or organization: Not on file Attends meetings of clubs or organizations: Not on file Relationship status: Not on file Other Topics Concern Not on file Social History Narrative Pets: dog The patient's past medical history, surgical history, social history, family history, medications and allergies were reviewed with the patient today and are available in the chart for further review. ROS: Review of Systems Constitutional: Negative for activity change and fatigue. HENT: Negative for congestion, hearing loss and trouble swallowing. Eyes: Negative for visual disturbance. Respiratory: Negative for chest tightness and shortness of breath. Cardiovascular: Negative for chest pain and palpitations. Gastrointestinal: Negative for abdominal pain, diarrhea, nausea and vomiting. Endocrine: Negative for polydipsia, polyphagia and polyuria. Genitourinary: Negative for decreased urine volume, difficulty urinating and hematuria. Musculoskeletal: Positive for arthralgias. Negative for joint swelling and myalgias. Skin: Negative for color change, rash and wound. Allergic/Immunologic: Negative for immunocompromised state. Neurological: Negative for dizziness, weakness, light-headedness and numbness. Hematological: Does not bruise/bleed easily. Psychiatric/Behavioral: Negative for confusion and sleep disturbance. The patient is not nervous/anxious. PE: Physical Exam Constitutional: She is oriented to person, place, and time. She appears well- developed and well-nourished. HENT: Head: Normocephalic. Eyes: Pupils are equal, round, and reactive to light. Neck: Normal range of motion. Neck supple. Cardiovascular: Normal rate and regular rhythm. Pulmonary/Chest: Effort normal and breath sounds normal. Abdominal: Soft. Bowel sounds are normal. Musculoskeletal: Normal range of motion. Right knee: Tenderness found. Medial joint line and lateral joint line tenderness noted. Left knee: Tenderness found. Medial joint line and lateral joint line tenderness noted. Neurological: She is alert and oriented to person, place, and time. Skin: Skin is warm and dry. ORTHO: Right Knee Exam Muscle Strength The patient has normal right knee strength. Tenderness The patient is experiencing tenderness in the lateral joint line and medial joint line. Range of Motion The patient has normal right knee ROM. Tests Austin: Medial - negative Lateral - negative Varus: negative Valgus: negative Moe: Anterior - negative Drawer: Anterior - negative Posterior - negative Other Erythema: absent Scars: absent Sensation: normal Pulse: present Swelling: none Left Knee Exam Muscle Strength The patient has normal left knee strength. Tenderness The patient is experiencing tenderness in the medial joint line and lateral joint line. Range of Motion The patient has normal left knee ROM. Tests Austin: Medial - negative Lateral - negative Varus: negative Valgus: negative Moe: Anterior - negative Drawer: Anterior - negative Posterior - negative Other Erythema: absent Scars: absent Sensation: normal Pulse: present Swelling: none Imaging: B/L Knee Right knee: No acute fracture. Mild medial knee compartment joint space narrowing. Minimal tricompartmental osteophytic spurring. Small suprapatellar joint effusion. Left knee: Subtle deformity at the proximal fibular shaft with periosteal reaction and callus formation suggestive of nondisplaced subacute fracture. No additional fractures. Mild medial knee compartment joint space narrowing. Minimal tricompartmental osteophytic spurring. Assessment/Plan: After examination and reviewing of the patient x-ray images, I did inform her thatthere is a healing fracture in her fibula on the left leg. Given her limited symptoms, I offered a hinged knee brace which she politely declined stating that it really doesn't hurt her. She is going to start on Celebrex to help with inflammation and then discuss the dupixent with her forest pathology teacher.I researched that arthralgias are an adverse reaction to this injection and this is something that is controlled with celebrex and an oral steroid but the patient, being diabetic, doesn't want to usean oral steroid due to it raising her blood sugars. She will follow up with her forest pathology teacher and I will be happy to see her back as needed. She is also going to discuss further options for her lumbar back since the injections just don't give her any relief. The patient verbalizes understanding andis in agreement with this treatment plan. Diagnosis: Problem List Items Addressed This Visit None Follow Up: No follow-ups on file. Eliecer Hill CNP documented in this encounter* Kadi Cook LPN - 04/26/2020 11:53 AM EDT PA [facility] Cele[facility]. documented in this encounter* Angelina Lopez MD - 05/09/2020 9:00 AM EDT CC: follow-up asthma HPI: Kristen Mann is a 70 y.o. female non-smoker with atopy, asthma and eczema. In the past shehas had problems with control of her asthma mainly due to lack of inhaler usage. Cost of her inhalers have been an issue. She is currently on Breo Ellipta and using it regularly. She was asking if there is a treatment for alternative. She has not had any recent issues with her asthma. She denies any wheezing, cough, significant shortness of breath or need for her rescue inhaler. She has no nocturnal awakenings. She has not had any significant issues with her allergy symptoms which seem to be well controlled with [id number] antihistamine. She has had a new problem with worsening eczema and skin issues. She has plaque-like lesions that scar. She was started on Dupixent but had a reaction. She developed lower body pain and weakness and believes that this was related to her injection, however, she has known lower back arthritis and previous issues requiring injections so her "reaction" may have been coincidental. She will discuss this with her forest pathology teacher. She has multiple other medical problems including diabetes, hyperlipidemia, history of stroke, migraines, history of retinalhemorrhage, acid reflux disease, which have been stable. No other new medical problems. Current Outpatient Medications Medication Sig Dispense Refill amitriptyline (ELAVIL) 25 MG tablet nightly . celecoxib (CeleBREX) 100 MG capsule Take 1 (one) capsule (100 mg total) by mouth daily . 30 [id number] cetirizine-pseudoePHEDrine (ZyrTEC-D) 5-120 mg per tablet Take 1 tablet by mouth daily . citalopram (CELEXA) 40 MG tablet Take 40 mg by mouth daily. ezetimibe (ZETIA) 10 mg tablet Take 10 mg by mouth daily . 6 fluticasone furoate-vilanteroL (Breo Ellipta) 100-25 mcg/dose DsDv Inhale 1 Inhalation daily . 1 Inhaler 11 HUMALOG 100 unit/mL injection 7 Units 3 (three) times a day before meals . insulin glargine (LANTUS) 100 unit/mL injection Inject 22 Units under the skin daily . metFORMIN (GLUCOPHAGE-XR) 500 MG 24 hr tablet Take 1 (one) tablet (500 mg total) by mouth 2 (two) times a day Pt takes 2 tablets 2 times a day. Hold taking for [address] contrast study, OK to resume on 02/11/2018.. 60 tablet 0 metoprolol succinate (TOPROL-XL) 25 MG 24 hr tablet Take 25 mg by mouth daily . naproxen (NAPROSYN) 250 MG tablet Take 250 mg by mouth 2 (two) times a day as needed . nitrofurantoin (MACRODANTIN) 25 MG capsule Take 25 mg by mouth nightly . VITAMIN D2 50,000 unit capsule Take 50,000 Units by mouth once a week . 4 No current facility-administered medications for this visit. PMH, surgical history, family history, social history: Reviewed, unchanged except where noted. Review of Systems - History obtained from the patient General ROS: negative for - chills, fatigue or fever Ophthalmic ROS: negative for - blurry vision, eye pain or itchy eyes ENT ROS: negative for - nasal congestion, nasal discharge, sneezing, sore throat or vocal changes Allergy and Immunology ROS: positive for - seasonal allergies Respiratory ROS: no cough, shortness of breath, or wheezing Cardiovascular ROS: no chest pain or dyspnea on exertion Musculoskeletal ROS: positive for - joint pain and muscular weakness Dermatological ROS: eczema, pruritis and bruising BP (P) 124/76 Pulse (P) 93 Temp 98.2 F (36.8 C) (Temporal) Resp 16 Wt 91.2 kg (201 lb) SpO2 (P) 96% BMI 33.45 kg/m General appearance: alert, appears stated age, cooperative and no distress Head: Normocephalic, without obvious abnormality Eyes: negative findings: lids and lashes normal, conjunctivae and sclerae normal and corneas clear Throat: lips, mucosa, and tongue normal; teeth and gums normal Neck: no adenopathy, no JVD, supple, symmetrical, trachea midline and thyroid not enlarged, symmetric, no tenderness/mass/nodules Lungs: clear to auscultation bilaterally, normal percussion bilaterally and not labored Chest wall: no tenderness, normal configuration Heart: regular rate and rhythm, S1, S2 normal, no murmur, click, rub or gallop Extremities: extremities normal, atraumatic, no cyanosis or edema or clubbing Skin: multiple ecchymoses, and raised erythematous papules and plaques ASSESMENT/PLAN: Asthma Allergies Eczema I do not believe that her "reaction" was related to her Dupixent and explained to her that use of Dupixent may actually improve her asthma as well as her allergies. As stated above, she will discuss it with her forest pathology teacher. She needs to continue controller inhaler at this time. I gave her a list of alternatives to Breo Ellipta. She will check her insurance to see which inhaler may be more economical and contact my office for a prescription. RTC 6 months or sooner if problems. She was instructed to call the office in a few months for an appointment as the 6-month schedule is not available asof yet and she will be following up with 1 of the other asset management coordinator in the group as I will be empl oyed elsewhere. documented in this encounter* Steve Palacios MD - 07/15/2020 10:02 AM EST SLEEP MEDICINE CONSULT 07/15/2020 Patient: Kristen Mann Date of : 1950 Referring Provider: Refer to consult order in electronic medical record Provider: Steve Palacios MD ASSESSMENT sleep apnea previously diagnosed currently untreated Cardiac dysrhythmia Asthma Diabetes PLAN: Recommendations: 1. Sleep Center staff will contact patient regarding Sleep study schedule and additional educational information. 2. Contributing factors to sleep apnea and potential medical complications of sleep apnea i.e hypertension, cardiac dysrhythmias, coronary artery disease, TIA, discussed with the details. 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 Behavior modifications i.e. weight loss, sleep hygiene and sleep position training discussed with the patient 4. Home sleep apnea test 5. Different treatment modalities ie CPAP, Oral appliance, ENT procedures including, UPPP and Inspire Therapy for YVONNE discussed with patient. 6. Effect of Caffeine, Nicotene, Alcohol and OTC medications on sleep discussed with patient. Advised the patient to refrain them from execssive use 7. Follow-up office visit will be scheduled after completion of diagnostic sleep test 8. Will obtain sleep studies results from [place] [facility] History and Present Illness: Patient is a very pleasant middle-aged white female no recommended by anyone at the time of this evaluation. She has loud snoring witnessed apnea daytime fatigue tiredness and sleepiness she has undergone sleep studies in [place] several years ago and was diagnosed with sleep apnea. She tried 4 different mask and was unable to tolerate and discontinued CPAP treatment. She developed some cardiacissues. She has been seen by Dr. Angelina Lopez for asthma. She had a left cardiac dysrhythmias and has been scheduled for long-term Holter monitor She is retired no particular day schedule. She does have symptoms of daytime fatigue and tiredness. She can doze off easily while watching television. 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 She denies sleepwalking sleep talking nightmares night terrors or bruxism Review of Systems: Past Medical History: Diagnosis Date Asthma Atopy Diabetes (HCC) Eczema GERD (gastroesophageal reflux disease) Granulomatous disease (HCC) Hyperlipidemia Migraine headache Recurrent UTI 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HCC) Tachycardia Past Surgical History: Procedure Laterality Date APPENDECTOMY CARDIAC CATHETERIZATION SECTION, CLASSIC x2 CHOLECYSTECTOMY OPEN EYE SURGERY HYSTERECTOMY Family History Problem Relation Age of Onset Heart disease Father Asthma Mother Social History Tobacco Use Smoking Status Never Smoker Smokeless Tobacco Never Used Additional History Comments: None Medications: Current Outpatient Medications: amitriptyline (ELAVIL) 25 MG tablet, nightly ., Disp: , Rfl: celecoxib (CeleBREX) 100 MG capsule, Take 1 (one) capsule (100 mg total) by mouth daily ., Disp: 30capsule, Rfl: 11 cetirizine-pseudoePHEDrine (ZyrTEC-D) 5-120 mg per tablet, Take 1 tablet by mouth daily ., Disp: , Rfl: citalopram (CELEXA) 40 MG tablet, Take 40 mg by mouth daily., Disp: , Rfl: ezetimibe (ZETIA) 10 mg tablet, Take 10 mg by mouth daily ., Disp: , Rfl: 6 fluticasone furoate-vilanteroL (Breo Ellipta) 100-25 mcg/dose DsDv, Inhale 1 Inhalation daily ., Disp: 1 Inhaler, Rfl: 11 HUMALOG 100 unit/mL injection, 7 Units 3 (three) times a day before meals ., Disp: , Rfl: insulin glargine (LANTUS) 100 unit/mL injection, Inject 22 Units under the skin daily ., Disp: , Rfl: metFORMIN (GLUCOPHAGE-XR) 500 MG 24 hr tablet, Take 1 (one) tablet (500 mg total) by mouth 2 (two) times a day Pt takes 2 tablets 2 times a day. Hold taking for [address] contrast study, OK to resume on 02/11/2018.., Disp: 60 tablet, Rfl: 0 metoprolol succinate (TOPROL-XL) 25 MG 24 hr tablet, Take 1 (one) tablet (25 mg total) by mouth daily ., Disp: 30 tablet, Rfl: 11 nitrofurantoin (MACRODANTIN) 25 MG capsule, Take 25 mg by mouth nightly ., Disp: , Rfl: VITAMIN D2 50,000 unit capsule, Take 50,000 Units by mouth once a week ., Disp: , Rfl: 4 Allergies: Morphine, Penicillins, and Sulfa (sulfonamide antibiotics) Wt Readings from Last 3 Encounters: 06/07/20 93.4 kg (206 lb) 05/09/20 91.2 kg (201 lb) 02/13/20 92.5 kg (204 lb) Vitals: Temp Readings from Last 3 Encounters: 05/09/20 98.2 F (36.8 C) (Temporal) 02/09/18 98.9 F (37.2 C) (Oral) BP Readings from Last 3 Encounters: 06/07/20 132/78 05/09/20 (P) 124/76 11/13/19 110/68 Pulse Readings from Last 3 Encounters: 06/07/20 (!) 104 05/09/20 (P) 93 11/13/19 74 2D echocardiography results reviewed Summary 1. This study was technically limited, Definity IV contrast was used to enhance endocardial definition. 2. Left ventricular systolic function is normal with an ejection fraction by Biplane Method of Discs of 66 %. 3. Normal RV size and function. 4. The left ventricular diastolic function is grade I diastolic dysfunction, consistent with low or normal atrial pressures. 5. No hemodynamically significant valvular disease. OBJECTIVE: Physical Exam HEENT-Unremarkable Upper Airways-moderate narrowing, crowded posterior pharynx 4/4 Mallampati Neck-supple, No JVD or masses Lungs-decreased breath sounds, scattered wheezes [id number] Extremities-edema 1+ chronic stasis discoloration changes Neuro-appropriate, without any focal signs Psych-unremarkable Skin and musculoskeletal systems unremarkable Labs: No results found for: WBC, HGB, HCT, MCV, EXTMCV, PLT, RBC Invalid input(s): CO2 No orders to display Laboratory and Additional Data Reviewed: Reviewed 07/15/20 10:09 AM: documented in this encounter* Steve Palacios MD - 07/15/2020 10:02 AM EST SLEEP MEDICINE CONSULT 07/15/2020 Patient: Kristen Mann Date of : 1950 Referring Provider: Refer to consult order in electronic medical record Provider: Steve Palacios MD ASSESSMENT sleep apnea previously diagnosed currently untreated Cardiac dysrhythmia Asthma Diabetes PLAN: Recommendations: 1. Sleep Center staff will contact patient regarding Sleep study schedule and additional educational information. 2. Contributing factors to sleep apnea and potential medical complications of sleep apnea i.e hypertension, cardiac dysrhythmias, coronary artery disease, TIA, discussed with the details. 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 Behavior modifications i.e. weight loss, sleep hygiene and sleep position training discussed with the patient 4. Home sleep apnea test 5. Different treatment modalities ie CPAP, Oral appliance, ENT procedures including, UPPP and Inspire Therapy for YVONNE discussed with patient. 6. Effect of Caffeine, Nicotene, Alcohol and OTC medications on sleep discussed with patient. Advised the patient to refrain them from execssive use 7. Follow-up office visit will be scheduled after completion of diagnostic sleep test 8. Will obtain sleep studies results from [place] [facility] History and Present Illness: Patient is a very pleasant middle-aged white female no recommended by anyone at the time of this evaluation. She has loud snoring witnessed apnea daytime fatigue tiredness and sleepiness she has undergone sleep studies in [place] several years ago and was diagnosed with sleep apnea. She tried 4 different mask and was unable to tolerate and discontinued CPAP treatment. She developed some cardiacissues. She has been seen by Dr. Angelina Lopez for asthma. She had a left cardiac dysrhythmias and has been scheduled for long-term Holter monitor She is retired no particular day schedule. She does have symptoms of daytime fatigue and tiredness. She can doze off easily while watching television. 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 She denies sleepwalking sleep talking nightmares night terrors or bruxism Review of Systems: Past Medical History: Diagnosis Date Asthma Atopy Diabetes (HCC) Eczema GERD (gastroesophageal reflux disease) Granulomatous disease (HCC) Hyperlipidemia Migraine headache Recurrent UTI 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HCC) Tachycardia Past Surgical History: Procedure Laterality Date APPENDECTOMY CARDIAC CATHETERIZATION SECTION, CLASSIC x2 CHOLECYSTECTOMY OPEN EYE SURGERY HYSTERECTOMY Family History Problem Relation Age of Onset Heart disease Father Asthma Mother Social History Tobacco Use Smoking Status Never Smoker Smokeless Tobacco Never Used Additional History Comments: None Medications: Current Outpatient Medications: amitriptyline (ELAVIL) 25 MG tablet, nightly ., Disp: , Rfl: celecoxib (CeleBREX) 100 MG capsule, Take 1 (one) capsule (100 mg total) by mouth daily ., Disp: 30capsule, Rfl: 11 cetirizine-pseudoePHEDrine (ZyrTEC-D) 5-120 mg per tablet, Take 1 tablet by mouth daily ., Disp: , Rfl: citalopram (CELEXA) 40 MG tablet, Take 40 mg by mouth daily., Disp: , Rfl: ezetimibe (ZETIA) 10 mg tablet, Take 10 mg by mouth daily ., Disp: , Rfl: 6 fluticasone furoate-vilanteroL (Breo Ellipta) 100-25 mcg/dose DsDv, Inhale 1 Inhalation daily ., Disp: 1 Inhaler, Rfl: 11 HUMALOG 100 unit/mL injection, 7 Units 3 (three) times a day before meals ., Disp: , Rfl: insulin glargine (LANTUS) 100 unit/mL injection, Inject 22 Units under the skin daily ., Disp: , Rfl: metFORMIN (GLUCOPHAGE-XR) 500 MG 24 hr tablet, Take 1 (one) tablet (500 mg total) by mouth 2 (two) times a day Pt takes 2 tablets 2 times a day. Hold taking for [address] contrast study, OK to resume on 02/11/2018.., Disp: 60 tablet, Rfl: 0 metoprolol succinate (TOPROL-XL) 25 MG 24 hr tablet, Take 1 (one) tablet (25 mg total) by mouth daily ., Disp: 30 tablet, Rfl: 11 nitrofurantoin (MACRODANTIN) 25 MG capsule, Take 25 mg by mouth nightly ., Disp: , Rfl: VITAMIN D2 50,000 unit capsule, Take 50,000 Units by mouth once a week ., Disp: , Rfl: 4 Allergies: Morphine, Penicillins, and Sulfa (sulfonamide antibiotics) Wt Readings from Last 3 Encounters: 06/07/20 93.4 kg (206 lb) 05/09/20 91.2 kg (201 lb) 02/13/20 92.5 kg (204 lb) Vitals: Temp Readings from Last 3 Encounters: 05/09/20 98.2 F (36.8 C) (Temporal) 02/09/18 98.9 F (37.2 C) (Oral) BP Readings from Last 3 Encounters: 06/07/20 132/78 05/09/20 (P) 124/76 11/13/19 110/68 Pulse Readings from Last 3 Encounters: 06/07/20 (!) 104 05/09/20 (P) 93 11/13/19 74 2D echocardiography results reviewed Summary 1. This study was technically limited, Definity IV contrast was used to enhance endocardial definition. 2. Left ventricular systolic function is normal with an ejection fraction by Biplane Method of Discs of 66 %. 3. Normal RV size and function. 4. The left ventricular diastolic function is grade I diastolic dysfunction, consistent with low or normal atrial pressures. 5. No hemodynamically significant valvular disease. OBJECTIVE: Physical Exam HEENT-Unremarkable Upper Airways-moderate narrowing, crowded posterior pharynx 4/4 Mallampati Neck-supple, No JVD or masses Lungs-decreased breath sounds, scattered wheezes [id number] Extremities-edema 1+ chronic stasis discoloration changes Neuro-appropriate, without any focal signs Psych-unremarkable Skin and musculoskeletal systems unremarkable Labs: No results found for: WBC, HGB, HCT, MCV, EXTMCV, PLT, RBC Invalid input(s): CO2 No orders to display Laboratory and Additional Data Reviewed: Reviewed 07/15/20 10:09 AM: documented in this encounter* Eliecer Hill CNP - 08/10/2020 3:01 PM EST Associated Order(s): LG Jt Injection/Arthrocentesis: R knee; LG Jt Injection/Arthrocentesis: R greater trochanteric bursa; LG Jt Injection/Arthrocentesis: L greater trochanteric bursa Post-Procedure Diagnose(s): Primary osteoarthritis of right knee; Trochanteric bursitis of both hips LG Jt Injection/Arthrocentesis: R knee Performed by: Eliecer Hill CNP Authorized by: Eliecer Hill CNP CPT 18678 - Large Joint Arthrocentesis: Consent given by: Patient Time out: Immediately prior to the procedure a time out was called Physician or proceduralist has discussed critical or nonroutine steps, procedure duration and anticipated blood loss: Yes Supporting Documentation: Indications: Pain, joint swelling and diagnostic evaluation Procedure Details: Location: Knee Site: R knee Prep: patient was prepped and draped in usual sterile fashion Needle size: 22 G Approach: Anterolateral Medications: 40 mg triamcinolone acetonide 40 mg/mL Anesthetic used: Lidocaine 1% Anesthetic amount (mL): 2 Patient tolerance: Patient tolerated the procedure well with no immediate complications LG Jt Injection/Arthrocentesis: R greater trochanteric bursa Performed by: Eliecer Hill CNP Authorized by: Eliecer Hill CNP CPT 10387 - Large Joint Arthrocentesis: Consent given by: Patient Time out: Immediately prior to the procedure a time out was called Physician or proceduralist has discussed critical or nonroutine steps, procedure duration and anticipated blood loss: Yes Supporting Documentation: Indications: Diagnostic evaluation and pain Procedure Details: Location: Hip Site: R greater trochanteric bursa Prep: patient was prepped and draped in usual sterile fashion Needle size: 22 G Medications: 40 mg triamcinolone acetonide 40 mg/mL Anesthetic used: Lidocaine 1% Anesthetic amount (mL): 2 Patient tolerance: Patient tolerated the procedure well with no immediate complications LG Jt Injection/Arthrocentesis: L greater trochanteric bursa Performed by: Eliecer Hill CNP Authorized by: Eliecer Hill CNP CPT 66810 - Large Joint Arthrocentesis: Consent given by: Patient Time out: Immediately prior to the procedure a time out was called Physician or proceduralist has discussed critical or nonroutine steps, procedure duration and anticipated blood loss: Yes Supporting Documentation: Indications: Diagnostic evaluation and pain Procedure Details: Location: Hip Site: L greater trochanteric bursa Prep: patient was prepped and draped in usual sterile fashion Needle size: 22 G Medications: 40 mg triamcinolone acetonide 40 mg/mL Anesthetic used: Lidocaine 1% Anesthetic amount (mL): 2 Patient tolerance: Patient tolerated the procedure well with no immediate complications * Eliecer Hill CNP - 08/10/2020 2:59 PM EST [facility] [address] [facility] [address] [facility] [id number] Chief Complaint Patient presents with Procedure Baron hip injection Kristen Mann returns to the office today for injections to bilateral hips and the right knee. She states that the right knee hasn't really improved and she would like to try an injection. She hasreceived injections to bilateral hip bursa in the past and they continue to provide her with good relief so she is happy to continue with them. The patient's past medical history, surgical history, social history, family history, medications and allergies were reviewed with the patient today and are available in the chart for further review. Allergies Allergen Reactions Morphine Shortness Of Breath Penicillins Rash Sulfa (Sulfonamide Antibiotics) Hives Current Outpatient Medications: amitriptyline (ELAVIL) 25 MG tablet, nightly ., Disp: , Rfl: celecoxib (CeleBREX) 100 MG capsule, Take 1 (one) capsule (100 mg total) by mouth daily ., Disp: 30capsule, Rfl: 11 cetirizine-pseudoePHEDrine (ZyrTEC-D) 5-120 mg per tablet, Take 1 tablet by mouth daily ., Disp: , Rfl: citalopram (CELEXA) 40 MG tablet, Take 40 mg by mouth daily., Disp: , Rfl: ezetimibe (ZETIA) 10 mg tablet, Take 10 mg by mouth daily ., Disp: , Rfl: 6 fluticasone furoate-vilanteroL (Breo Ellipta) 100-25 mcg/dose DsDv, Inhale 1 Inhalation daily ., Disp: 1 Inhaler, Rfl: 11 HUMALOG 100 unit/mL injection, 7 Units 3 (three) times a day before meals ., Disp: , Rfl: insulin glargine (LANTUS) 100 unit/mL injection, Inject 22 Units under the skin daily ., Disp: , Rfl: metoprolol succinate (TOPROL-XL) 25 MG 24 hr tablet, Take 1 (one) tablet (25 mg total) by mouth daily ., Disp: 30 tablet, Rfl: 11 nitrofurantoin (MACRODANTIN) 25 MG capsule, Take 25 mg by mouth nightly ., Disp: , Rfl: VITAMIN D2 50,000 unit capsule, Take 50,000 Units by mouth once a week ., Disp: , Rfl: 4 metFORMIN (GLUCOPHAGE-XR) 500 MG 24 hr tablet, Take 1 (one) tablet (500 mg total) by mouth 2 (two) times a day Pt takes 2 tablets 2 times a day. Hold taking for [address] contrast study, OK to resume on 02/11/2018.., Disp: 60 tablet, Rfl: 0 Past Medical History: Diagnosis Date Asthma Atopy Diabetes (HCC) Eczema GERD (gastroesophageal reflux disease) Granulomatous disease (HCC) Hyperlipidemia Migraine headache Recurrent UTI 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HCC) Tachycardia Past Surgical History: Procedure Laterality Date APPENDECTOMY CARDIAC CATHETERIZATION SECTION, CLASSIC x2 CHOLECYSTECTOMY OPEN EYE SURGERY HYSTERECTOMY Social History Socioeconomic History Marital status: Spouse name: Not on file Number of children: 3 Years of education: Not on file Highest education level: Not on file 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 Social Needs Financial resource strain: Not on file Food insecurity Worry: Not on file Inability: Not on file Transportation needs Medical: Not on file Non-medical: Not on file Tobacco Use Smoking status: Never Smoker Smokeless tobacco: Never Used Substance and Sexual Activity Alcohol use: No Drug use: No Sexual activity: Not on file Lifestyle Physical activity Days per week: Not on file Minutes per session: Not on file Stress: Not on file Relationships Social connections Talks on phone: Not on file Gets together: Not on file Attends pentecostal service: Not on file Active member of club or organization: Not on file Attends meetings of clubs or organizations: Not on file Relationship status: Not on file Other Topics Concern Not on file Social History Narrative Pets: dog ROS: Review of Systems Constitutional: Negative for activity change and fatigue. HENT: Negative for congestion, hearing loss and trouble swallowing. Eyes: Negative for visual disturbance. Respiratory: Negative for chest tightness and shortness of breath. Cardiovascular: Negative for chest pain and palpitations. Gastrointestinal: Negative for abdominal pain, diarrhea, nausea and vomiting. Endocrine: Negative for polydipsia, polyphagia and polyuria. Genitourinary: Negative for decreased urine volume, difficulty urinating and hematuria. Musculoskeletal: Positive for arthralgias. Negative for joint swelling and myalgias. Skin: Negative for color change, rash and wound. Allergic/Immunologic: Negative for immunocompromised state. Neurological: Negative for dizziness, weakness, light-headedness and numbness. Hematological: Does not bruise/bleed easily. Psychiatric/Behavioral: Negative for confusion and sleep disturbance. The patient is not nervous/anxious. PE: Physical Exam Constitutional: She is oriented to person, place, and time. She appears well- developed and well-nourished. HENT: Head: Normocephalic. Eyes: Pupils are equal, round, and reactive to light. Neck: Normal range of motion. Neck supple. Cardiovascular: Normal rate and regular rhythm. Pulmonary/Chest: Effort normal and breath sounds normal. Abdominal: Soft. Bowel sounds are normal. Musculoskeletal: Normal range of motion. General: Tenderness present. Neurological: She is alert and oriented to person, place, and time. Skin: Skin is warm and dry. Imaging: No new imaging, reviewed from prior visit Assessment/Plan: Injections to bilateral hip bursae and right knee per patient request. I did this without complications and she tolerated this well. She has been seen by another psychiatric nurse in the past for overall pain and inflammation but would like to seek another opinion. I am going to referher to rheumatology per her request. I will see her back as needed. documented in this encounter* Steve Palacios MD - 09/30/2020 1:12 PM EST SLEEP MEDICINE CONSULT 09/30/2020 Patient: Kristen Mann Date of : 1950 Referring Provider: Refer to consult order in electronic medical record Provider: Steve Palacios MD Tele visit verbal consent obtained.There are limitations compared to face to face evaluations ,patient agreed to proceed Reason for today's visit Sleep Apnea and CPAP compliance ASSESSMENT Sleep apnea PLAN: Recommendations: Proceed with second sleep study for CPAP titration History and Present Illness: Pt has undergone diagnostic sleep studies several months ago and I reviewed with her and on phone she has severe sleep apnea with overall AHI of 43/h. Average oxygen saturation was 92% and lowest was79%. Patient was diagnosed with sleep apnea several years ago and was requested for CPAP treatment.She thought that she will not be able to tolerate her up and declined the treatment I explained to her that we will try 1 more time with small nasal mask CPAP and see whether she can tolerate that better We we will plan for attended sleep study for CPAP titration Review of Systems: All other systems reviewed and negative other than HPI Past Medical History: Diagnosis Date Asthma Atopy Diabetes (HCC) Eczema GERD (gastroesophageal reflux disease) Granulomatous disease (HCC) Hyperlipidemia Migraine headache Recurrent UTI 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HCC) Tachycardia Past Surgical History: Procedure Laterality Date APPENDECTOMY CARDIAC CATHETERIZATION SECTION, CLASSIC x2 CHOLECYSTECTOMY OPEN EYE SURGERY HYSTERECTOMY Family History Problem Relation Age of Onset Heart disease Father Asthma Mother Social History Tobacco Use Smoking Status Never Smoker Smokeless Tobacco Never Used Additional History Comments: None Medications: Current Outpatient Medications: amitriptyline (ELAVIL) 25 MG tablet, nightly ., Disp: , Rfl: celecoxib (CeleBREX) 100 MG capsule, Take 1 (one) capsule (100 mg total) by mouth daily ., Disp: 30capsule, Rfl: 11 cetirizine-pseudoePHEDrine (ZyrTEC-D) 5-120 mg per tablet, Take 1 tablet by mouth daily ., Disp: , Rfl: citalopram (CELEXA) 40 MG tablet, Take 40 mg by mouth daily., Disp: , Rfl: ezetimibe (ZETIA) 10 mg tablet, Take 10 mg by mouth daily ., Disp: , Rfl: 6 fluticasone furoate-vilanteroL (Breo Ellipta) 100-25 mcg/dose DsDv, Inhale 1 Inhalation daily ., Disp: 1 Inhaler, Rfl: 11 HUMALOG 100 unit/mL injection, 7 Units 3 (three) times a day before meals ., Disp: , Rfl: insulin glargine (LANTUS) 100 unit/mL injection, Inject 22 Units under the skin daily ., Disp: , Rfl: metFORMIN (GLUCOPHAGE-XR) 500 MG 24 hr tablet, Take 1 (one) tablet (500 mg total) by mouth 2 (two) times a day Pt takes 2 tablets 2 times a day. Hold taking for [address] contrast study, OK to resume on 02/11/2018.., Disp: 60 tablet, Rfl: 0 metoprolol succinate (TOPROL-XL) 25 MG 24 hr tablet, Take 1 (one) tablet (25 mg total) by mouth daily ., Disp: 30 tablet, Rfl: 11 nitrofurantoin (MACRODANTIN) 25 MG capsule, Take 25 mg by mouth nightly ., Disp: , Rfl: VITAMIN D2 50,000 unit capsule, Take 50,000 Units by mouth once a week ., Disp: , Rfl: 4 Allergies: Morphine, Penicillins, and Sulfa (sulfonamide antibiotics) Wt Readings from Last 3 Encounters: 08/07/20 93.4 kg (206 lb) 06/07/20 93.4 kg (206 lb) 05/09/20 91.2 kg (201 lb) Vitals: Temp Readings from Last 3 Encounters: 05/09/20 98.2 F (36.8 C) (Temporal) 02/09/18 98.9 F (37.2 C) (Oral) BP Readings from Last 3 Encounters: 06/07/20 132/78 05/09/20 (P) 124/76 11/13/19 110/68 Pulse Readings from Last 3 Encounters: 06/07/20 (!) 104 05/09/20 (P) 93 11/13/19 74 OBJECTIVE: Physical Exam Not performed as this was a televisit Labs: No results found for: WBC, HGB, HCT, MCV, EXTMCV, PLT, RBC Invalid input(s): CO2 No orders to display Current HOME Medications: No outpatient medications have been marked as taking for the 1/25/21 encounter (Documentation) with Steve Palacios MD. Laboratory and Additional Data Reviewed: Reviewed 09/30/20 1:12 PM: Laboratory documented in this encounter* Eliecer Hill, MAGNETIC PROSPECTING OPERATOR - 10/01/2020 10:00 AM EST Kristen Mann 1950 CC: 70 y.o. is a she with right knee pain. Kristen was at home a couple of weeks ago and when she went to stand up, she blacked out and ended up on the floor with a cut on her right knee along with pain. She did ice the knee and she has been using tylenol which really isn't providing her with good pain relief. She doesn't remember anything about the fall. She did see her PCP and health concierge and is also scheduled to see a neurologist for further workup. The knee today is still painful and slightly swollen. She states that it aches especially while she tries to sleep. She just can't get into acomfortable position. She is most sore along the inside of the knee and behind the knee. She did receive a cortisone injection this past Dec which had provided her with good pain relief. HPI: Knee Pain: PMH: Allergies Allergen Reactions Morphine Shortness Of Breath Penicillins Rash Sulfa (Sulfonamide Antibiotics) Hives Current Outpatient Medications: amitriptyline (ELAVIL) 25 MG tablet, nightly ., Disp: , Rfl: celecoxib (CeleBREX) 100 MG capsule, Take 1 (one) capsule (100 mg total) by mouth daily ., Disp: 30capsule, Rfl: 11 cetirizine-pseudoePHEDrine (ZyrTEC-D) 5-120 mg per tablet, Take 1 tablet by mouth daily ., Disp: , Rfl: citalopram (CELEXA) 40 MG tablet, Take 40 mg by mouth daily., Disp: , Rfl: ezetimibe (ZETIA) 10 mg tablet, Take 10 mg by mouth daily ., Disp: , Rfl: 6 fluticasone furoate-vilanteroL (Breo Ellipta) 100-25 mcg/dose DsDv, Inhale 1 Inhalation daily ., Disp: 1 Inhaler, Rfl: 11 HUMALOG 100 unit/mL injection, 7 Units 3 (three) times a day before meals ., Disp: , Rfl: insulin glargine (LANTUS) 100 unit/mL injection, Inject 22 Units under the skin daily ., Disp: , Rfl: metFORMIN (GLUCOPHAGE-XR) 500 MG 24 hr tablet, Take 1 (one) tablet (500 mg total) by mouth 2 (two) times a day Pt takes 2 tablets 2 times a day. Hold taking for [address] contrast study, OK to resume on 02/11/2018.., Disp: 60 tablet, Rfl: 0 metoprolol succinate (TOPROL-XL) 25 MG 24 hr tablet, Take 1 (one) tablet (25 mg total) by mouth daily ., Disp: 30 tablet, Rfl: 11 nitrofurantoin (MACRODANTIN) 25 MG capsule, Take 25 mg by mouth nightly ., Disp: , Rfl: VITAMIN D2 50,000 unit capsule, Take 50,000 Units by mouth once a week ., Disp: , Rfl: 4 Past Medical History: Diagnosis Date Asthma Atopy Diabetes (HCC) Eczema GERD (gastroesophageal reflux disease) Granulomatous disease (HCC) Hyperlipidemia Migraine headache Recurrent UTI 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HCC) Tachycardia Past Surgical History: Procedure Laterality Date APPENDECTOMY CARDIAC CATHETERIZATION SECTION, CLASSIC x2 CHOLECYSTECTOMY OPEN EYE SURGERY HYSTERECTOMY Social History Socioeconomic History Marital status: Spouse name: Not on file Number of children: 3 Years of education: Not on file Highest education level: Not on file 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 Social Needs Financial resource strain: Not on file Food insecurity Worry: Not on file Inability: Not on file Transportation needs Medical: Not on file Non-medical: Not on file Tobacco Use Smoking status: Never Smoker Smokeless tobacco: Never Used Substance and Sexual Activity Alcohol use: No Drug use: No Sexual activity: Not on file Lifestyle Physical activity Days per week: Not on file Minutes per session: Not on file Stress: Not on file Relationships Social connections Talks on phone: Not on file Gets together: Not on file Attends pentecostal service: Not on file Active member of club or organization: Not on file Attends meetings of clubs or organizations: Not on file Relationship status: Not on file Other Topics Concern Not on file Social History Narrative Pets: dog The patient's past medical history, surgical history, social history, family history, medications and allergies were reviewed with the patient today and are available in the chart for further review. ROS: Review of Systems Constitutional: Negative for activity change and fatigue. HENT: Negative for congestion, hearing loss and trouble swallowing. Eyes: Negative for visual disturbance. Respiratory: Negative for chest tightness and shortness of breath. Cardiovascular: Negative for chest pain and palpitations. Gastrointestinal: Negative for abdominal pain, diarrhea, nausea and vomiting. Endocrine: Negative for polydipsia, polyphagia and polyuria. Genitourinary: Negative for decreased urine volume, difficulty urinating and hematuria. Musculoskeletal: Positive for arthralgias and joint swelling. Negative for myalgias. Skin: Negative for color change, rash and wound. Allergic/Immunologic: Negative for immunocompromised state. Neurological: Negative for dizziness, weakness, light-headedness and numbness. Hematological: Does not bruise/bleed easily. Psychiatric/Behavioral: Negative for confusion and sleep disturbance. The patient is not nervous/anxious. PE: Physical Exam Constitutional: She is oriented to person, place, and time. She appears well- developed and well-nourished. HENT: Head: Normocephalic. Eyes: Pupils are equal, round, and reactive to light. Neck: Normal range of motion. Neck supple. Cardiovascular: Normal rate and regular rhythm. Pulmonary/Chest: Effort normal and breath sounds normal. Abdominal: Soft. Bowel sounds are normal. Musculoskeletal: Normal range of motion. General: Tenderness and edema present. Right knee: She exhibits swelling, laceration and bony tenderness. She exhibits no effusion. Tenderness found. Medial joint line and lateral joint line tenderness noted. Neurological: She is alert and oriented to person, place, and time. Skin: Skin is warm and dry. ORTHO: Right Knee Exam Tenderness The patient is experiencing tenderness in the lateral joint line, medial joint line, MCL and LCL. Range of Motion The patient has normal right knee ROM. Tests [place]: Medial - positive Lateral - negative Varus: negative Valgus: negative Moe: Anterior - negative Drawer: Anterior - negative Posterior - negative Other Erythema: absent Scars: absent Sensation: normal Pulse: present Swelling: mild Effusion: no effusion present Imaging: R Knee There is no acute displaced fracture or dislocation identified. [id number] tricompartmental osteoarthritis bilaterally, most significant the medial compartments. No right knee effusion or layering lipohemarthrosis. Soft tissues are unremarkable. Assessment/Plan: After examination and reviewing of the patient x-ray images, I would like her to take some OTC NSAIDs for pain and inflammation. She has stopped taking the Celebrex and is currently not taking any anti-inflammatory and she is not on an blood thinner. I did explain for short periodsof time and correct dosing NSAIDs are safe and will provide her with more relief. She is to continue RICE therapy as well. I did explain that it was still too soon for another cortisone injection. The patient will follow up in 2 weeks if there is no improvement with the oral anti-inflammatories. She verbalizes understanding and is in agreement with the treatment plan. Diagnosis: Problem List Items Addressed This Visit None Follow Up: No follow-ups on file. Eliecer Hill CNP documented in this encounter* Cecilia Campos MD - 06/07/2020 10:40 AM EDT General Cardiology Clinic Follow-up Heart & Vascular [facility] 06/07/2020 Cecilia Campos MD [address] [place] [address] Medical Office [facility] [id number] Patient: Kristen Mann Date of : 1950 (70 y.o.) PCP: Behzad Mcintyre MD Assessment & Plan Echocardiogram abnormal Her echo which was completed at an outside facility describes in the report of sigmoid septum overall ejection fraction is preserved. I would like to update her echo here. On exam she has no significant murmur. Dizziness She still complains of dizziness. She has apparently fallen on occasion but I do not think it is syncope per se. Episodes are not necessarily orthostatic in description or least not consistently such. She does tell me she has some visual field defects related to retinopathy. She does not see in thelower quadrants, she has fallen down on stairs because she does not see the step. She also has leonora neurologist in the past for migraines, I do not know if there is been other more specific neurologic diagnosis. She has been on a beta-rosalio, she feels the beta-rosalio is not necessary improve the dizzy episodes. Tachycardia Her EKG today again shows sinus tachycardia. Since being placed on a beta- rosalio she tells me she is not sure is helped her symptoms. Her blood pressure has on occasion been in the 100 systolic range. I am little bit hesitant to push on the dose. With her continued symptomatology of dizziness I amgo to repeat a 24-hour Holter, we will also update her echo. I think she would benefit for more formal neurologic assessment, I do not know if this is an unknown neurologic disorder giving her this constellation of symptoms but I would like a more expert opinion. We will try to get that arranged here locally. NOBLE (dyspnea on exertion) She has previously been diagnosed with sleep apnea, did not tolerate at least at the time of the study any attempted devices she is not had a follow-up. She does tell me that she sleeps regularly during the day, she also feels very tired persistently. I think she would clearly benefit from a reattempt to establish with a sleep center and will give her a referral here. Hyperlipidemia She does have hyperlipidemia, however she tells me she is intolerant or has side effects with statins. She does not seem to be interested to retrial those. May benefit from consideration for Zetia but I would refer that back to her primary care. Follow-up: Return in about 6 months (around 12/06/2020). Chief Complaint: Follow-up (3 month follow up) Subjective History of Present Illness: Kristen Mann is a 70 y.o. female This is a 70-year-old. She was originally seen in August 2019 with complaints of tachycardia. Shehas a history of asthma, diabetes, complex migraines. She has mild right internal carotid disease. EF is preserved. On Holter she had an average heart rate of 103 sinus mechanism. Maximum heart rate of 141 which was sinus tachycardia. Exercise myocardial perfusion study shows normal perfusion. TSH was normal in August 2019. She was placed on a beta-rosalio was initially noting some fatigue. Justine have sleep apnea but is unable to tolerate device therapy. She has chronic back pain. I saw her in November 2019 and she seemed to be doing reasonably well on a beta-rosalio and we left her on that. She had a phone follow-up in February. Was noting some dizziness which appeared to be mainly orthostasis. We talked about fluid intake. Heart rate was in the 70s to 80s. She was concerned she was havingsome periods of sweating while she was on the beta-rosalio. Objective Imaging: I independently reviewed the EKG and agree with the interpretation(s) with the following comments. EKG showed sinus tachycardia, heart rate 106, poor R wave progression ECG 12 lead Final Result by Cecilia Campos MD (06/07/2020 1030) Echocardiogram complete Final Result by Marcia Barrientos MD (02/09/2018 1023) Transesophageal Echocardiogram Final Result by Axel Soares MD (10/16/2015 0935) Review of Systems: Review of Systems Constitution: Negative for fever. Eyes: Positive for blurred vision, vision loss in left eye and vision loss in right eye. Cardiovascular: Positive for dyspnea on exertion and palpitations. Negative for chest pain, claudication, cyanosis, irregular heartbeat, leg swelling, near- syncope, orthopnea, paroxysmal nocturnal dyspnea and syncope. Respiratory: Positive for shortness of breath. Musculoskeletal: Positive for falls. Gastrointestinal: Negative for hematemesis and hematochezia. Neurological: Positive for excessive daytime sleepiness, dizziness and loss of balance. Negative for focal weakness, paresthesias and weakness. Psychiatric/Behavioral: Negative for altered mental status. All other systems reviewed and are negative. HOME Medications: Current Outpatient Medications on File Prior to Visit Medication Sig amitriptyline (ELAVIL) 25 MG tablet nightly . celecoxib (CeleBREX) 100 MG capsule Take 1 (one) capsule (100 mg total) by mouth daily . cetirizine-pseudoePHEDrine (ZyrTEC-D) 5-120 mg per tablet Take 1 tablet by mouth daily . citalopram (CELEXA) 40 MG tablet Take 40 mg by mouth daily. ezetimibe (ZETIA) 10 mg tablet Take 10 mg by mouth daily . fluticasone furoate-vilanteroL (Breo Ellipta) 100-25 mcg/dose DsDv Inhale 1 Inhalation daily . HUMALOG 100 unit/mL injection 7 Units 3 (three) times a day before meals . insulin glargine (LANTUS) 100 unit/mL injection Inject 22 Units under the skin daily . metFORMIN (GLUCOPHAGE-XR) 500 MG 24 hr tablet Take 1 (one) tablet (500 mg total) by mouth 2 (two) times a day Pt takes 2 tablets 2 times a day. Hold taking for [address] contrast study, OK to resume on 02/11/2018.. nitrofurantoin (MACRODANTIN) 25 MG capsule Take 25 mg by mouth nightly . VITAMIN D2 50,000 unit capsule Take 50,000 Units by mouth once a week . [DISCONTINUED] metoprolol succinate (TOPROL-XL) 25 MG 24 hr tablet Take 1 tablet by mouth once daily [DISCONTINUED] naproxen (NAPROSYN) 250 MG tablet Take 250 mg by mouth 2 (two) times a day as needed. No current facility-administered medications on file prior to visit. Vital Signs: BP 132/78 (BP Location: Left arm) Pulse (!) 104 Ht 5' 5" Wt 93.4 kg (206 lb) SpO2 97% BMI34.28 kg/m Physical Exam Constitutional: She is oriented to person, place, and time. She appears well- developed and well-nourished. HENT: Head: Normocephalic. Eyes: No scleral icterus. Neck: Neck supple. No thyromegaly present. Cardiovascular: Regular rhythm and normal heart sounds. Tachycardia present. Exam reveals no gallopand no friction rub. No murmur heard. Pulmonary/Chest: Effort normal and breath sounds normal. She has no wheezes. She has no rales. Abdominal: Soft. There is no abdominal tenderness. There is no rebound and no guarding. Musculoskeletal: General: No edema. Neurological: She is alert and oriented to person, place, and time. Skin: Skin is warm and dry. Psychiatric: She has a normal mood and affect. Vitals reviewed. Labs: documented in this encounter* Eliecer Hill CNP - 10/09/2020 1:31 PM EST [facility] [address] [facility] [address] [facility] [id number] Chief Complaint Patient presents with Right Knee - Follow-up, Pain Kristen Mann returns to the office today for follow up on her right knee. She states that the pain is only getting worse and she doesn't know why. She denies any further injury to the knee. She states that before she was able to walk and bear weight on the knee but today she is here having to use a rolling walker for ambulation. She states that she feels as though her knee is going to break. She is having to take percocet, which she gets from her pain management doctor for her back, just todull the pain in the knee. She also uses advil with that but still has significant pain. The patient's past medical history, surgical history, social history, family history, medications and allergies were reviewed with the patient today and are available in the chart for further review. Allergies Allergen Reactions Morphine Shortness Of Breath Penicillins Rash Sulfa (Sulfonamide Antibiotics) Hives Current Outpatient Medications: amitriptyline (ELAVIL) 25 MG tablet, nightly ., Disp: , Rfl: cetirizine-pseudoePHEDrine (ZyrTEC-D) 5-120 mg per tablet, Take 1 tablet by mouth daily ., Disp: , Rfl: citalopram (CELEXA) 40 MG tablet, Take 40 mg by mouth daily., Disp: , Rfl: ezetimibe (ZETIA) 10 mg tablet, Take 10 mg by mouth daily ., Disp: , Rfl: 6 fluticasone furoate-vilanteroL (Breo Ellipta) 100-25 mcg/dose DsDv, Inhale 1 Inhalation daily ., Disp: 1 Inhaler, Rfl: 11 HUMALOG 100 unit/mL injection, 7 Units 3 (three) times a day before meals ., Disp: , Rfl: insulin glargine (LANTUS) 100 unit/mL injection, Inject 22 Units under the skin daily ., Disp: , Rfl: metoprolol succinate (TOPROL-XL) 25 MG 24 hr tablet, Take 1 (one) tablet (25 mg total) by mouth daily ., Disp: 30 tablet, Rfl: 11 nitrofurantoin (MACRODANTIN) 25 MG capsule, Take 25 mg by mouth nightly ., Disp: , Rfl: oxyCODONE-acetaminophen (PERCOCET) 5-325 mg per tablet, Take 1 tablet by mouth every 6 (six) hours as needed for pain 7 ., Disp: , Rfl: VITAMIN D2 50,000 unit capsule, Take 50,000 Units by mouth once a week ., Disp: , Rfl: 4 metFORMIN (GLUCOPHAGE-XR) 500 MG 24 hr tablet, Take 1 (one) tablet (500 mg total) by mouth 2 (two) times a day Pt takes 2 tablets 2 times a day. Hold taking for [address] contrast study, OK to resume on 02/11/2018.., Disp: 60 tablet, Rfl: 0 Past Medical History: Diagnosis Date Asthma Atopy Diabetes (HCC) Eczema GERD (gastroesophageal reflux disease) Granulomatous disease (HCC) Hyperlipidemia Migraine headache Recurrent UTI 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HCC) Tachycardia Past Surgical History: Procedure Laterality Date APPENDECTOMY CARDIAC CATHETERIZATION SECTION, CLASSIC x2 CHOLECYSTECTOMY OPEN EYE SURGERY HYSTERECTOMY Social History Socioeconomic History Marital status: Spouse name: Not on file Number of children: 3 Years of education: Not on file Highest education level: Not on file 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 Social Needs Financial resource strain: Not on file Food insecurity Worry: Not on file Inability: Not on file Transportation needs Medical: Not on file Non-medical: Not on file Tobacco Use Smoking status: Never Smoker Smokeless tobacco: Never Used Substance and Sexual Activity Alcohol use: No Drug use: No Sexual activity: Not on file Lifestyle Physical activity Days per week: Not on file Minutes per session: Not on file Stress: Not on file Relationships Social connections Talks on phone: Not on file Gets together: Not on file Attends pentecostal service: Not on file Active member of club or organization: Not on file Attends meetings of clubs or organizations: Not on file Relationship status: Not on file Other Topics Concern Not on file Social History Narrative Pets: dog ROS: Review of Systems Constitutional: Negative for activity change and fatigue. HENT: Negative for congestion, hearing loss and trouble swallowing. Eyes: Negative for visual disturbance. Respiratory: Negative for chest tightness and shortness of breath. Cardiovascular: Negative for chest pain and palpitations. Gastrointestinal: Negative for abdominal pain, diarrhea, nausea and vomiting. Endocrine: Negative for polydipsia, polyphagia and polyuria. Genitourinary: Negative for decreased urine volume, difficulty urinating and hematuria. Musculoskeletal: Positive for arthralgias, gait problem and joint swelling. Negative for myalgias. Skin: Negative for color change, rash and wound. Allergic/Immunologic: Negative for immunocompromised state. Neurological: Negative for dizziness, weakness, light-headedness and numbness. Hematological: Does not bruise/bleed easily. Psychiatric/Behavioral: Negative for confusion and sleep disturbance. The patient is not nervous/anxious. PE: Physical Exam Constitutional: She is oriented to person, place, and time. She appears well- developed and well-nourished. HENT: Head: Normocephalic. Eyes: Pupils are equal, round, and reactive to light. Neck: Normal range of motion. Neck supple. Cardiovascular: Normal rate and regular rhythm. Pulmonary/Chest: Effort normal and breath sounds normal. Abdominal: Soft. Bowel sounds are normal. Musculoskeletal: General: Tenderness and edema present. Right knee: She exhibits decreased range of motion, swelling and bony tenderness. Tenderness found.Medial joint line and lateral joint line tenderness noted. Neurological: She is alert and oriented to person, place, and time. Skin: Skin is warm and dry. Imaging: No new imaging, reviewed from prior visit. Assessment/Plan: After exam and discussion, I am going to order a MRI of the right knee for furtherdiagnostic evaluation. Given that the patient's pain is worse as well as her limited ability to weight bear, further imaging is necessary at this time. I am placing her in a knee brace for additionalsupport and recommended she rest and elevate the knee as much as she can until I see her back. She is to use RICE therapy as well as continue her advil for pain. I will see her back immediately afterher MRI for results. She verbalizes understanding and is in agreement with the treatment plan. documented in this encounter* Eliecer Hill CNP - 10/17/2020 2:59 PM EST [facility] [address] [facility] [address] [facility] [id number] Chief Complaint Patient presents with Right Knee - Follow-up MRI Follow up Kristenkeke Mann returns to the office today for follow-up on the right knee and MRI review. Kristen states the right knee is still about the same. She states she is still having pain especially withany weightbearing type of movement. She states the knee brace does help her a little bit, she feelsthat the knee is more supported. She continues to use her wheeled walker for ambulation. She has a p rescription for Percocet for her lumbar pain which she has been taking for the knee which does seemto take the edge off. 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 She denies any new injury to the knee. The patient's past medical history, surgical history, social history, family history, medications and allergies were reviewed with the patient today and are available in the chart for further review. Allergies Allergen Reactions Morphine Shortness Of Breath Penicillins Rash Sulfa (Sulfonamide Antibiotics) Hives Current Outpatient Medications: amitriptyline (ELAVIL) 25 MG tablet, nightly ., Disp: , Rfl: cetirizine-pseudoePHEDrine (ZyrTEC-D) 5-120 mg per tablet, Take 1 tablet by mouth daily ., Disp: , Rfl: citalopram (CELEXA) 40 MG tablet, Take 40 mg by mouth daily., Disp: , Rfl: ezetimibe (ZETIA) 10 mg tablet, Take 10 mg by mouth daily ., Disp: , Rfl: 6 fluticasone furoate-vilanteroL (Breo Ellipta) 100-25 mcg/dose DsDv, Inhale 1 Inhalation daily ., Disp: 1 Inhaler, Rfl: 11 HUMALOG 100 unit/mL injection, 7 Units 3 (three) times a day before meals ., Disp: , Rfl: insulin glargine (LANTUS) 100 unit/mL injection, Inject 22 Units under the skin daily ., Disp: , Rfl: metoprolol succinate (TOPROL-XL) 25 MG 24 hr tablet, Take 1 (one) tablet (25 mg total) by mouth daily ., Disp: 30 tablet, Rfl: 11 nitrofurantoin (MACRODANTIN) 25 MG capsule, Take 25 mg by mouth nightly ., Disp: , Rfl: oxyCODONE-acetaminophen (PERCOCET) 5-325 mg per tablet, Take 1 tablet by mouth every 6 (six) hours as needed for pain 7 ., Disp: , Rfl: VITAMIN D2 50,000 unit capsule, Take 50,000 Units by mouth once a week ., Disp: , Rfl: 4 metFORMIN (GLUCOPHAGE-XR) 500 MG 24 hr tablet, Take 1 (one) tablet (500 mg total) by mouth 2 (two) times a day Pt takes 2 tablets 2 times a day. Hold taking for [address] contrast study, OK to resume on 02/11/2018.., Disp: 60 tablet, Rfl: 0 Past Medical History: Diagnosis Date Asthma Atopy Diabetes (HCC) Eczema GERD (gastroesophageal reflux disease) Granulomatous disease (HCC) Hyperlipidemia Migraine headache Recurrent UTI 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HCC) Tachycardia Past Surgical History: Procedure Laterality Date APPENDECTOMY CARDIAC CATHETERIZATION SECTION, CLASSIC x2 CHOLECYSTECTOMY OPEN EYE SURGERY HYSTERECTOMY Social History Socioeconomic History Marital status: Spouse name: Not on file Number of children: 3 Years of education: Not on file Highest education level: Not on file 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 Social Needs Financial resource strain: Not on file Food insecurity Worry: Not on file Inability: Not on file Transportation needs Medical: Not on file Non-medical: Not on file Tobacco Use Smoking status: Never Smoker Smokeless tobacco: Never Used Substance and Sexual Activity Alcohol use: No Drug use: No Sexual activity: Not on file Lifestyle Physical activity Days per week: Not on file Minutes per session: Not on file Stress: Not on file Relationships Social connections Talks on phone: Not on file Gets together: Not on file Attends pentecostal service: Not on file Active member of club or organization: Not on file Attends meetings of clubs or organizations: Not on file Relationship status: Not on file Other Topics Concern Not on file Social History Narrative Pets: dog ROS: Review of Systems Constitutional: Negative for activity change and fatigue. HENT: Negative for congestion, hearing loss and trouble swallowing. Eyes: Negative for visual disturbance. Respiratory: Negative for chest tightness and shortness of breath. Cardiovascular: Negative for chest pain and palpitations. Gastrointestinal: Negative for abdominal pain, diarrhea, nausea and vomiting. Endocrine: Negative for polydipsia, polyphagia and polyuria. Genitourinary: Negative for decreased urine volume, difficulty urinating and hematuria. Musculoskeletal: Positive for gait problem and joint swelling. Negative for arthralgias and myalgias. Skin: Negative for color change, rash and wound. Allergic/Immunologic: Negative for immunocompromised state. Neurological: Negative for dizziness, weakness, light-headedness and numbness. Hematological: Does not bruise/bleed easily. Psychiatric/Behavioral: Negative for confusion and sleep disturbance. The patient is not nervous/anxious. PE: Physical Exam Constitutional: She is oriented to person, place, and time. She appears well- developed and well-nourished. HENT: Head: Normocephalic. Eyes: Pupils are equal, round, and reactive to light. Neck: Normal range of motion. Neck supple. Cardiovascular: Normal rate and regular rhythm. Pulmonary/Chest: Effort normal and breath sounds normal. Abdominal: Soft. Bowel sounds are normal. Musculoskeletal: General: Tenderness and edema present. Right knee: She exhibits decreased range of motion, swelling, effusion and bony tenderness. Tenderness found. Medial joint line and lateral joint line tenderness noted. Neurological: She is alert and oriented to person, place, and time. Skin: Skin is warm and dry. Imaging: MRI right knee Incomplete fracture of the medial tibial plateau. Comminuted intra-articular fracturing of the headof the fibula. Contusion of the posterior medial femoral condyle. Contusion of the medial meniscus.Mild sprain of the posterior cruciate ligament and medial collateral ligament and mild strain of the popliteus and soleus muscles. Contusion of the common peroneal nerve. Assessment/Plan: After examination and reviewing of the patient MRI images we discussed treatment options for the right knee. I did review this MRI and treatment plan with Dr. Olvera as well. At this point in time we are keeping the patient in a hinged knee brace for additional support. Per Dr. Olvera she is able to weight-bear as tolerated. I did encourage her to continue using pain medications as needed which she obtains through her pain management physician. I also encouraged her to continue the use of ice as needed. She like to hold off on an injection today. If she changes her mind she is to call the office and we would be happy to inject her knee with cortisone. Like to see her back in 1 month for reevaluation and new imaging. Patient verbalizes understanding and agreement with this treatment plan. documented in this encounter* Latricia Wilson MD - 10/22/2020 10:25 AM EST RHEUMATOLOGY NEW PATIENT VISIT - Telephone Visit Via Phone Call I discussed risks, benefits and alternatives of a telephone visit telemedicine consultation with the patient (and any accompanying persons) including the risks that the patient's personal health details and medical records will be discussed over real-time, synchronous, interactive audio technology,the visit will not be recorded without the express consent of both the provider and the patient, and that there are inherent diagnostic limitations compared to [id number] evaluations. We elected toproceed with the telephone visit telemedicine consultation. Patients name: Kristen Mann : 1950 Today's date: 10/22/2020 Reason for visit:New patient, referred by Eliecer Hill C* for evaluation of "arthralgia". HPC: This is a 70 y.o. female with a pmhx of asthma, DM, GERD,eczema, HTN, HLD who presents for arthralgia. Recently sustained fracture and she is immobilized. Not on therapy for OP. Main issues of pain are in her knees. Not taking vit D/Ca. No reports of significant joint swelling/redness. Prior Rheum appts: NIL I have reviewed the patient's medical history in detail and updated the computerized patient record. Past Medical History: Diagnosis Date Asthma Atopy Diabetes (HCC) Eczema GERD (gastroesophageal reflux disease) Granulomatous disease (HCC) Hyperlipidemia Migraine headache Recurrent UTI 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HCC) Tachycardia Past Surgical History: Procedure Laterality Date APPENDECTOMY CARDIAC CATHETERIZATION SECTION, CLASSIC x2 CHOLECYSTECTOMY OPEN EYE SURGERY HYSTERECTOMY Social History Tobacco Use Smoking status: Never Smoker Smokeless tobacco: Never Used Substance Use Topics Alcohol use: No Drug use: No Family History Problem Relation Age of Onset Heart disease Father Asthma Mother Allergies Allergen Reactions Morphine Shortness Of Breath Penicillins Rash Sulfa (Sulfonamide Antibiotics) Hives No outpatient medications have been marked as taking for the 10/22/20 encounter (Appointment) with Latricia Wilson MD. Review of Systems: General Constitutional: Denied fevers, chills, anorexia, weight loss, or night sweats Eyes: denied blurry vision, no dry eyes, no RP ENT: denied nasal drainage, sinus pressure, nasal ulcers Mouth: denied oral ulcers, dry mouth Lymphatics: no new adenopathy in cervical, supraclavicular, axillary, inguinal regions Respiratory: no cough, SOB CV: denied palpitations, chest pain/pressure, PND, orthopnea. GI: denied abd pain, n/v/d, constipation, melena. : denied dysuria, urgency, frequency or hematuria. Skin: no rashes or lesions Musculoskeletal: as per HPI Hematologic/lmmunologic: no adenopathy, bleeding, easy bruisiality or recurrent infection. Neurology: Denied new headaches, speech/balance/coordination problems. Denied new focal numbness orweakness of extremities Psych: denied anxiety, depression or mood swings A 10 point review of systems was completed. Physical Exam: There were no vitals taken for this visit. DATA: I have reviewed lab work and imaging. Labs:reviewed. Imaging: reviewed. Health Maintenance Due Topic Date Due Falls Risk Assessment 1950 Mammogram 1950 Dexa Scan 1950 Wellness Visit 1955 Depression Screening (PHQ9) 1964 COVID-19 Vaccine (1 of 2) 1968 Hepatitis C Screening 1970 Zoster Vaccines (1 of 2) 2002 Tetanus: Every 10yrs 01/20/2017 Sequential Influenza Vaccine (1) 05/07/2020 Assessment & Plan Arthralgia - 2/2 to OA most likely - We will defer inflammatory arthritis work up - patient is immobilized from knee fracture so also needs a w/u for pathological fracture 2/2 to OP Age-related osteoporosis with current pathological fracture with routine healing, subsequent encounter - PTH, Intact, Vitamin D, Total, 25-OH, Creatinine, serum, Alkaline Phosphatase, Bone Specific - Vitamin D supplementation recommended, optimal dose is the dose necessary to achieve Vitamin D 25-OH blood level in range of 40-50 ng/mL. (Vitamin D 1000 IU total a day, or dose necessary to achieve a Vitamin D 25-OH blood level in rangeof 40-50 ng/mL). -Recommended daily dose of calcium: 1200mg total a day in divided doses. Calcium from dietary sources, if not sufficient, or if with h/o calcium nephrolithiasis would recommend Calcium Citrate supplement, as it is recommended to avoid caclium carbonate products, which as main dietary calcium source. -Regular weight-bearing and muscle-strengthening exercise -Avoidance of tobacco smoking, excessive alcohol intake and excessive caffeine intake. -Fall and fracture precautions I have spent 30 minutes with the patient reviewing the HPI and Plan of Care. The patient indicates understanding of these issues and agrees with the plan. Return to clinic in 3-4 month(s) after she has recovered from knee injury Telehealth appointments ok. Latricia Wilson MD Residence Leasing Agent Spray Gun Repairer Helper Note: To expedite correspondence this note was generated by [employer] voice recognition software. Somegrammatical or spelling errors may occur using the system. documented in this encounter* Eliecer Hill CNP - 11/14/2020 12:02 PM EST [facility] [address] [facility] [address] [facility] [id number] No chief complaint on file. Kristen Mann returns to the office today for follow up on her right knee. She has continued to wear the brace for additional support. She states that the swelling is down and the pain is much more manageable now. She is able to take Tylenol and get adequate pain relief. She has been walking without any instability. She does state that she has increase soreness and slight swelling after she has stood or walked for a long period of time. The knee is about 50% better since her last visit. The patient's past medical history, surgical history, social history, family history, medications and allergies were reviewed with the patient today and are available in the chart for further review. Allergies Allergen Reactions Morphine Shortness Of Breath Penicillins Rash Sulfa (Sulfonamide Antibiotics) Hives Current Outpatient Medications: amitriptyline (ELAVIL) 25 MG tablet, nightly ., Disp: , Rfl: cetirizine-pseudoePHEDrine (ZyrTEC-D) 5-120 mg per tablet, Take 1 tablet by mouth daily ., Disp: , Rfl: citalopram (CELEXA) 40 MG tablet, Take 40 mg by mouth daily., Disp: , Rfl: ezetimibe (ZETIA) 10 mg tablet, Take 10 mg by mouth daily ., Disp: , Rfl: 6 fluticasone furoate-vilanteroL (Breo Ellipta) 100-25 mcg/dose DsDv, Inhale 1 Inhalation daily ., Disp: 1 Inhaler, Rfl: 11 HUMALOG 100 unit/mL injection, 7 Units 3 (three) times a day before meals ., Disp: , Rfl: insulin glargine (LANTUS) 100 unit/mL injection, Inject 22 Units under the skin daily ., Disp: , Rfl: metoprolol succinate (TOPROL-XL) 25 MG 24 hr tablet, Take 1 (one) tablet (25 mg total) by mouth daily ., Disp: 30 tablet, Rfl: 11 nitrofurantoin (MACRODANTIN) 25 MG capsule, Take 25 mg by mouth nightly ., Disp: , Rfl: oxyCODONE-acetaminophen (PERCOCET) 5-325 mg per tablet, Take 1 tablet by mouth every 6 (six) hours as needed for pain 7 ., Disp: , Rfl: VITAMIN D2 50,000 unit capsule, Take 50,000 Units by mouth once a week ., Disp: , Rfl: 4 metFORMIN (GLUCOPHAGE-XR) 500 MG 24 hr tablet, Take 1 (one) tablet (500 mg total) by mouth 2 (two) times a day Pt takes 2 tablets 2 times a day. Hold taking for [address] contrast study, OK to resume on 02/11/2018.., Disp: 60 tablet, Rfl: 0 Past Medical History: Diagnosis Date Asthma Atopy Diabetes (HCC) Eczema GERD (gastroesophageal reflux disease) Granulomatous disease (HCC) Hyperlipidemia Migraine headache Recurrent UTI 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HCC) Tachycardia Past Surgical History: Procedure Laterality Date APPENDECTOMY CARDIAC CATHETERIZATION SECTION, CLASSIC x2 CHOLECYSTECTOMY OPEN EYE SURGERY HYSTERECTOMY Social History Socioeconomic History Marital status: Spouse name: Not on file Number of children: 3 Years of education: Not on file Highest education level: Not on file 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 Social Needs Financial resource strain: Not on file Food insecurity Worry: Not on file Inability: Not on file Transportation needs Medical: Not on file Non-medical: Not on file Tobacco Use Smoking status: Never Smoker Smokeless tobacco: Never Used Substance and Sexual Activity Alcohol use: No Drug use: No Sexual activity: Not on file Lifestyle Physical activity Days per week: Not on file Minutes per session: Not on file Stress: Not on file Relationships Social connections Talks on phone: Not on file Gets together: Not on file Attends pentecostal service: Not on file Active member of club or organization: Not on file Attends meetings of clubs or organizations: Not on file Relationship status: Not on file Other Topics Concern Not on file Social History Narrative Pets: dog ROS: Review of Systems Constitutional: Negative for activity change and fatigue. HENT: Negative for congestion, hearing loss and trouble swallowing. Eyes: Negative for visual disturbance. Respiratory: Negative for chest tightness and shortness of breath. Cardiovascular: Negative for chest pain and palpitations. Gastrointestinal: Negative for abdominal pain, diarrhea, nausea and vomiting. Endocrine: Negative for polydipsia, polyphagia and polyuria. Genitourinary: Negative for decreased urine volume, difficulty urinating and hematuria. Musculoskeletal: Positive for arthralgias. Negative for joint swelling and myalgias. Skin: Negative for color change, rash and wound. Allergic/Immunologic: Negative for immunocompromised state. Neurological: Negative for dizziness, weakness, light-headedness and numbness. Hematological: Does not bruise/bleed easily. Psychiatric/Behavioral: Negative for confusion and sleep disturbance. The patient is not nervous/anxious. PE: Physical Exam Constitutional: She is oriented to person, place, and time. She appears well- developed and well-nourished. HENT: Head: Normocephalic. Eyes: Pupils are equal, round, and reactive to light. Neck: Normal range of motion. Neck supple. Cardiovascular: Normal rate and regular rhythm. Pulmonary/Chest: Effort normal and breath sounds normal. Abdominal: Soft. Bowel sounds are normal. Musculoskeletal: Normal range of motion. General: Tenderness and edema present. Right knee: She exhibits swelling. Tenderness found. Medial joint line tenderness noted. Neurological: She is alert and oriented to person, place, and time. Skin: Skin is warm and dry. Imaging: R Knee No acute fracture or dislocation. Mild degenerative changes within the knee joint. Assessment/Plan: After examination and reviewing of the patient x-ray images, I am happy with Kristen's progress and am going to start her in physical therapy. I would like to see her back in 6 weeksfor follow up or sooner if needed. The patient verbalizes understanding and is in agreement with the treatment plan. documented in this encounter* Angelina Lopez MD - 07/26/2019 9:45 AM EST CC: follow-up testing HPI: Kristen Mann is a 69 y.o. female non-smoker with allergies, asthma, diabetes, history of stroke who recently presented for complaints of persistent cough, shortness of breath and tachycardia. She had stopped using her inhaler therapy mainly due to cost. In addition she has gained weight. She has had recent pulmonary function test that did not show significant obstruction. I restarted herinhaler therapy. I ordered a chest CT she presents today to review the results. Her chest CT is only significant for bilateral small pulmonary nodules, some of which are calcified. These most likely represent granulomatous disease. She does not have any major abnormality to explain her shortness of breath and cough. Since restarting her inhaler, she has had some improvement but not complete resolution of her symptoms. She states that her Holter monitor for evaluation of her tachycardia was negative. She has persistent tachycardia and states that her recent Holter monitor was non-diagnostic. She cannot tell when she is tachycardic. She has not had any lightheadedness, chest pain or chest pressure. EXAMINATION: CT CHEST WITHOUT CONTRAST 07/20/2019 HISTORY: ORDERING SYSTEM PROVIDED HISTORY: SOB, persistent cough, ORDERING SYSTEM PROVIDED DIAGNOSIS CODES: R05 Persistent cough R06.02 SOB (shortness of breath) COMPARISON: None. FINDINGS: Lungs: On series 2, image 52 there is a 3 mm right upper lung subpleural nodule. On image 58 there is a 3 mm right lower lung subpleural nodule. On image 68 there is a left lower lung 3 mm subpleuralnodule. On image 64 there is a 3 mm lingular subpleural nodule. Pleura: No effusions. No pneumothorax. Cardiovascular: Normal heart and aorta. Main pulmonary artery is normal. Breast tissue: Symmetric. Mediastinum: Normal thyroid, trachea, and esophagus. Lymph nodes: No adenopathy. Upper abdomen: Cholecystectomy. Skeletal: No lytic or sclerotic lesions. There are no fractures. IMPRESSION: 1. There are 4 small subpleural nodules as described above, and unless the patient is at high risk for malignancy, no follow-up necessary. The exam is otherwise unremarkable. I independently reviewed her chest CT which shows no major abnormailities except for a bilateral nodules, some calcified, mostly subpleural Current Outpatient Medications Medication Sig Dispense Refill amitriptyline (ELAVIL) 25 MG tablet nightly . citalopram (CELEXA) 40 MG tablet Take 40 mg by mouth daily. ezetimibe (ZETIA) 10 mg tablet 6 fluticasone-vilanterol (BREO ELLIPTA) 200-25 mcg/dose DsDv Inhale 1 puff daily. HUMALOG 100 unit/mL injection 7 Units 3 (three) times a day before meals . insulin glargine (LANTUS) 100 unit/mL injection Inject 22 Units under the skin daily . metFORMIN (GLUCOPHAGE-XR) 500 MG 24 hr tablet Take 1 (one) tablet (500 mg total) by mouth 2 (two) times a day Pt takes 2 tablets 2 times a day. Hold taking for [address] contrast study, OK to resume on 02/11/2018.. 60 tablet 0 trimethoprim (TRIMPEX) 100 mg tablet TAKE 1 TABLET BY MOUTH ONCE DAILY FOR 30 DAYS 11 VITAMIN D2 50,000 unit capsule 4 No current facility-administered medications for this visit. PMH, surgical history, family history, social history: Reviewed, unchanged except where noted. Review of Systems - no significant change form last visit except for normal Holter monitor BP 124/68 Pulse (!) 114 Resp 16 Wt 90.3 kg (199 lb) SpO2 98% BMI 32.12 kg/m General appearance: alert, appears stated age, cooperative, no distress and moderately obese Head: Normocephalic, without obvious abnormality Eyes: negative findings: lids and lashes normal, conjunctivae and sclerae normal and corneas clear Throat: lips, tongue, mucosa normal, no thrush Neck: no adenopathy, no JVD, supple, symmetrical, trachea midline and thyroid not enlarged, symmetric, no tenderness/mass/nodules Lungs: clear to auscultation bilaterally, normal percussion bilaterally and not labored Heart: regular rate and rhythm, tachycardia Extremities: extremities normal, atraumatic, no cyanosis or edema Neurologic: Grossly normal, oriented Skin: no rashes, lesions, or echymoses Musculoskeletal: no joint swelling or erythema ASSESMENT/PLAN: NOBLE Tachycardia Lung nodules Asthma Some of her dyspnea could be related to her recent weight gain. She will continue on inhaler therapy for her asthma. She will have a repeat CT of her chest in a year to evaluate her pulmonary nodules. The etiology for her persistent tachycardia is not clear unless she has some autonomic dysfunction related to her underlying diabetes. She is requesting a referral to cardiology. I will see her backin 3 months or sooner if she has worsening of her symptoms. documented in this encounter* Elba Reyes CNP - 01/16/2019 1:30 PM EDT Associated Order(s): LG Jt Injection/Arthrocentesis: L greater trochanteric bursa Post-Procedure Diagnose(s): Primary osteoarthritis of left hip LG Jt Injection/Arthrocentesis: L greater trochanteric bursa Performed by: Elba Reyes CNP Authorized by: Elba Reyes CNP CPT 56231 - Large Joint Arthrocentesis: Consent given by: Patient Time out: Immediately prior to the procedure a time out was called Physician or proceduralist has discussed critical or nonroutine steps, procedure duration and anticipated blood loss: Yes Supporting Documentation: Indications: Pain Procedure Details: Location: Hip Site: L greater trochanteric bursa Prep: patient was prepped and draped in usual sterile fashion Needle size: 22 G Approach: Lateral Medications: 1 mL dexamethasone 4 mg/mL, 1 mL triamcinolone acetonide 40 mg/mL Anesthetic used: Bupivacaine 0.5% and Lidocaine 1% Anesthetic amount (mL): 4 Patient tolerance: Patient tolerated the procedure well with no immediate complications * Elba Reyes CNP - 01/16/2019 1:30 PM EDT Associated Order(s): LG Jt Injection/Arthrocentesis: R greater trochanteric bursa Post-Procedure Diagnose(s): Primary osteoarthritis of right hip LG Jt Injection/Arthrocentesis: R greater trochanteric bursa Performed by: Elba Reyes CNP Authorized by: Elba Reyes CNP CPT 34546 - Large Joint Arthrocentesis: Consent given by: Patient Time out: Immediately prior to the procedure a time out was called Physician or proceduralist has discussed critical or nonroutine steps, procedure duration and anticipated blood loss: Yes Supporting Documentation: Indications: Pain Procedure Details: Location: Hip Site: R greater trochanteric bursa Prep: patient was prepped and draped in usual sterile fashion Needle size: 22 G Approach: Lateral Medications: 1 mL dexamethasone 4 mg/mL, 1 mL triamcinolone acetonide 40 mg/mL Anesthetic used: Bupivacaine 0.5% and Lidocaine 1% Anesthetic amount (mL): 4 Patient tolerance: Patient tolerated the procedure well with no immediate complications * Elba Reyes CNP - 01/16/2019 1:30 PM EDT Associated Order(s): LG Jt Injection/Arthrocentesis: L greater trochanteric bursa Post-Procedure Diagnose(s): Primary osteoarthritis of right hip; Primary osteoarthritis of left hip LG Jt Injection/Arthrocentesis: L greater trochanteric bursa Performed by: Elba Reyes CNP Authorized by: Elba Reyes CNP CPT 39967 - Large Joint Arthrocentesis: Consent given by: Patient Time out: Immediately prior to the procedure a time out was called Physician or proceduralist has discussed critical or nonroutine steps, procedure duration and anticipated blood loss: Yes Supporting Documentation: Indications: Pain Procedure Details: Location: Hip Site: L greater trochanteric bursa Prep: patient was prepped and draped in usual sterile fashion Needle size: 22 G Approach: Lateral Medications: 1 mL dexamethasone 4 mg/mL, 1 mL triamcinolone acetonide 40 mg/mL Anesthetic used: Bupivacaine 0.5% and Lidocaine 1% Anesthetic amount (mL): 4 Patient tolerance: Patient tolerated the procedure well with no immediate complications * Elba Reyes CNP - 01/16/2019 1:30 PM EDT Associated Order(s): LG Jt Injection/Arthrocentesis: R greater trochanteric bursa Post-Procedure Diagnose(s): Primary osteoarthritis of right hip; Primary osteoarthritis of left hip LG Jt Injection/Arthrocentesis: R greater trochanteric bursa Performed by: Elba Reyes CNP Authorized by: Elba Reyes CNP CPT 31123 - Large Joint Arthrocentesis: Consent given by: Patient Time out: Immediately prior to the procedure a time out was called Physician or proceduralist has discussed critical or nonroutine steps, procedure duration and anticipated blood loss: Yes Supporting Documentation: Indications: Pain Procedure Details: Location: Hip Site: R greater trochanteric bursa Prep: patient was prepped and draped in usual sterile fashion Needle size: 22 G Approach: Lateral Medications: 1 mL dexamethasone 4 mg/mL, 1 mL triamcinolone acetonide 40 mg/mL Anesthetic used: Bupivacaine 0.5% and Lidocaine 1% Anesthetic amount (mL): 4 Patient tolerance: Patient tolerated the procedure well with no immediate complications * Elba Reyes CNP - 01/16/2019 1:30 PM EDT Subjective: Kristen Mann is a 68 y.o. female here for No chief complaint on file. . Hip Pain Patient complains of bilateral hip pain. Onset of the symptoms was several months ago. Inciting event: none. The patient reports the hip pain radiates to groin on the right side. Denies any radiatinggroin pain on L side. Associated symptoms: none. Aggravating symptoms include: putting shoes/socks on R side. Patient has had prior hip problems. Previous visits for this problem: Last seen in October by myself . Evaluation to date: plain films, which were abnormal arthritis. Treatment to date: OTC analgesics, which have been not very effective. Last injection was in October. The following portions of the patient's history were reviewed and updated as appropriate: allergies, current medications, past surgical history and problem list. Review of Systems Constitutional: Negative for chills, diaphoresis and fever. Respiratory: Negative for shortness of breath. Cardiovascular: Negative for chest pain, palpitations and leg swelling. Genitourinary: Negative for frequency and urgency. Musculoskeletal: Positive for arthralgias, gait problem, joint swelling and myalgias. Skin: Negative for color change, rash and wound. Neurological: Negative for dizziness, syncope and weakness. Psychiatric/Behavioral: Negative for agitation. The patient is not nervous/anxious. Objective: There were no vitals taken for this visit. Physical Exam Constitutional: She is oriented to person, place, and time. She appears well- developed and well-nourished. HENT: Head: Normocephalic and atraumatic. Eyes: Pupils are equal, round, and reactive to light. Neck: Normal range of motion. Neck supple. Cardiovascular: Normal rate and regular rhythm. Pulmonary/Chest: Effort normal and breath sounds normal. Abdominal: Soft. Bowel sounds are normal. Musculoskeletal: She exhibits edema and tenderness. She exhibits no deformity. Neurological: She is alert and oriented to person, place, and time. She has normal reflexes. Skin: Skin is warm and dry. Imaging from this visit:Reviewed bilateral hip films form August 2018 Assessment/Plan: SNOMED CT(R) 1. Primary osteoarthritis of right hip OSTEOARTHRITIS OF HIP 2. Primary osteoarthritis of left hip OSTEOARTHRITIS OF HIP Cortisone injection B/L hips Elba Reyes CNP 01/12/2019 documented in this encounter* Elba Reyes CNP - 07/31/2019 12:30 PM EST Associated Order(s): LG Jt Injection/Arthrocentesis: L greater trochanteric bursa Post-Procedure Diagnose(s): Primary osteoarthritis of both hips LG Jt Injection/Arthrocentesis: L greater trochanteric bursa Performed by: Elba Reyes CNP Authorized by: Elba Reyes CNP CPT 96509 - Large Joint Arthrocentesis: Consent given by: Patient Time out: Immediately prior to the procedure a time out was called Physician or proceduralist has discussed critical or nonroutine steps, procedure duration and anticipated blood loss: Yes Supporting Documentation: Indications: Pain Procedure Details: Location: Hip Site: L greater trochanteric bursa Prep: patient was prepped and draped in usual sterile fashion Needle size: 22 G Approach: Lateral Medications: 1 mL dexamethasone 4 mg/mL, 1 mL triamcinolone acetonide 40 mg/mL Anesthetic used: Bupivacaine 0.5% and Lidocaine 1% Anesthetic amount (mL): 4 Patient tolerance: Patient tolerated the procedure well with no immediate complications * Elba Reyes CNP - 07/31/2019 12:30 PM EST Associated Order(s): LG Jt Injection/Arthrocentesis: R greater trochanteric bursa Post-Procedure Diagnose(s): Primary osteoarthritis of both hips LG Jt Injection/Arthrocentesis: R greater trochanteric bursa Performed by: Elba Reyes CNP Authorized by: Elba Reyes CNP CPT 93342 - Large Joint Arthrocentesis: Consent given by: Patient Time out: Immediately prior to the procedure a time out was called Physician or proceduralist has discussed critical or nonroutine steps, procedure duration and anticipated blood loss: Yes Supporting Documentation: Indications: Pain Procedure Details: Location: Hip Site: R greater trochanteric bursa Prep: patient was prepped and draped in usual sterile fashion Needle size: 22 G Approach: Lateral Medications: 1 mL dexamethasone 4 mg/mL, 1 mL triamcinolone acetonide 40 mg/mL Anesthetic used: Bupivacaine 0.5% and Lidocaine 1% Anesthetic amount (mL): 4 Patient tolerance: Patient tolerated the procedure well with no immediate complications * Elba Reyes CNP - 07/31/2019 12:30 PM EST Subjective: Kristen Mann is a 69 y.o. female here for No chief complaint on file. . Hip Pain Patient complains of bilateral hip pain. Onset of the symptoms was several months ago. Inciting event: none. The patient reports the hip pain radiates to groin on the right side. Denies any radiatinggroin pain on L side. Associated symptoms: none. Aggravating symptoms include: putting shoes/socks on R side. Patient has had prior hip problems. Previous visits for this problem: Last seen in October by myself . Evaluation to date: plain films, which were abnormal arthritis. Treatment to date: OTC analgesics, which have been not very effective. Last injection was in October. The following portions of the patient's history were reviewed and updated as appropriate: allergies, current medications, past surgical history and problem list. Review of Systems Constitutional: Negative for chills, diaphoresis and fever. Respiratory: Negative for shortness of breath. Cardiovascular: Negative for chest pain, palpitations and leg swelling. Genitourinary: Negative for frequency and urgency. Musculoskeletal: Positive for arthralgias, gait problem, joint swelling and myalgias. Skin: Negative for color change, rash and wound. Neurological: Negative for dizziness, syncope and weakness. Psychiatric/Behavioral: Negative for agitation. The patient is not nervous/anxious. Objective: There were no vitals taken for this visit. Physical Exam Constitutional: She is oriented to person, place, and time. She appears well- developed and well-nourished. HENT: Head: Normocephalic and atraumatic. Eyes: Pupils are equal, round, and reactive to light. Neck: Normal range of motion. Neck supple. Cardiovascular: Normal rate and regular rhythm. Pulmonary/Chest: Effort normal and breath sounds normal. Abdominal: Soft. Bowel sounds are normal. Musculoskeletal: General: Tenderness and edema present. No deformity. Neurological: She is alert and oriented to person, place, and time. She has normal reflexes. Skin: Skin is warm and dry. Assessment/Plan: 1. Primary osteoarthritis of both hips Cortisone injection B/L hips Elba Reyes CNP 07/30/2019 documented in this encounter Reason for Referral Status Reason Specialty Diagnoses / Procedures Referred By Contact Referred To Contact Authorized Radiology Diagnoses Persistent cough SOB (shortness of breath) Procedures CT Chest Without Contrast Angelina Lopez MD [address] [place] [address] Status Reason Specialty Diagnoses / Procedures Referred By Contact Referred To Contact Authorized Radiology Diagnoses NOBLE (dyspnea on exertion) Abnormal ECG Procedures NM Myocardial Perfusion Multiple SPECT Cecilia Campos MD [address] [place], [place] [address] [address] Status Reason Specialty Diagnoses / Procedures Referred By Contact Referred To Contact Authorized Cardiology Diagnoses Tachycardia Procedures ECG 12 lead Cecilia Campos MD [address] [facility] [place] [address] Status Reason Specialty Diagnoses / Procedures Referred By Contact Referred To Contact New Request Radiology Diagnoses Lung nodules Procedures CT Chest Without Contrast Angelina Lopez MD [address] [place] [address] Status Reason Specialty Diagnoses / Procedures Referred By Contact Referred To Contact Closed Sleep Medicine Diagnoses YVONNE (obstructive sleep apnea) YVONNE Procedures HOME SLEEP TEST HST Steve Palacios MD [address] [place] [address] [address] [place] [phone] Status Reason Specialty Diagnoses / Procedures Referred By Contact Referred To Contact Authorized Rheumatology Diagnoses Arthralgia, unspecified joint Eliecer Hill, MAGNETIC PROSPECTING OPERATOR [address] [place] [address] [facility] [address] [place] [address] Status Reason Specialty Diagnoses / Procedures Referred By Contact Referred To Contact Authorized Sleep Medicine Diagnoses YVONNE (obstructive sleep apnea) Procedures Polysomnography 4 or more parameters with CPAP Steve Palacios MD [address] [place] [address] [address] Medicine [address] [place], [place] [phone] Status Reason Specialty Diagnoses / Procedures Referred By Contact Referred To Contact Authorized Neurology Diagnoses Dizziness Cecilia Campos MD [address] [place] [address] [facility] [address] Office [facility], [address] [place] [address] Status Reason Specialty Diagnoses / Procedures Referred By Contact Referred To Contact Authorized Pulmonology Diagnoses Sleep apnea, unspecified type Cecilia Campos MD [address] [place] [address] [facility] Beatriz Blount [address] [place], [place] [id number] Status Reason Specialty Diagnoses / Procedures Referred By Contact Referred To Contact Authorized Cardiology Diagnoses Tachycardia Procedures Holter monitor - 24 hour Cecilia Campos MD [address] [place] [address] Status Reason Specialty Diagnoses / Procedures Referred By Contact Referred To Contact Authorized Cardiology Diagnoses Tachycardia NOBLE (dyspnea on exertion) Procedures Echocardiogram complete Cecilia Campos MD [address] [place] [address] Status Reason Specialty Diagnoses / Procedures Referred By Contact Referred To Contact New Request Diagnoses Tear of lateral meniscus of right knee, unspecified tear type, unspecified whether old or current tear, subsequent encounter Procedures MR Knee Right Without Contrast Eliecer Hill, FREDDIE [address] [place] [address] Status Reason Specialty Diagnoses / Procedures Referre d By Contact Referred To Contact Closed Radiology Diagnoses Lung nodules Procedures CT Chest Without Contrast Angelina Lopez MD [address] [place] [address] Status Reason Specialty Diagnoses / Procedures Referred By Contact Referred To Contact Authorized Patient Preference Physical Therapy Diagnoses Closed fracture of right tibial plateau with routine healing, subsequent encounter Primary osteoarthritis of both knees Eliecer Hill, MAGNETIC PROSPECTING OPERATOR [address] [place] [id number] Status Reason Specialty Diagnoses / Procedures Referred By Contact Referred To Contact Authorized Cardiology Diagnoses Tachycardia NOBLE (dyspnea on exertion) Angelina Lopez MD [address] [place] [phone] Patricia Dowling MD [address] [place] [address] Status Reason Specialty Diagnoses / Procedures Referred By Contact Referred To Contact Pending Review Radiology Diagnoses Lung nodules Procedures CT Chest Without Contrast Angelina Lopez MD [address] [place] [id number] Status Reason Specialty Diagnoses / Procedures Re ferred By Contact Referred To Contact Authorized Radiology Diagnoses Age-related osteoporosis without current pathological fracture Procedures XR Bone Density DEXA Axial Latricia Wilson MD [address] [place] [address] Status Reason Specialty Diagnoses / Procedures Referred By Contact Referred To Contact Authorized Cardiology Diagnoses Syncope, unspecified syncope type Procedures ECG 12 Lead UraduLenard MD [address] [place] [address] Status Reason Specialty Diagnoses / Procedures Referred By Contact Referred To Contact Pending Review Cardiology Diagnoses Stenosis of right internal carotid artery Procedures Ultrasound doppler carotid Richard Braga MD [address] [place] [address] [facility] [address] [place] [address] Specialty Diagnoses / Procedures Referred By Contac t Referred To Contact Endocrinology Diagnoses Other specified diabetes mellitus without complication, with long-term current use of insulin (HCC) Eliecer Hill CNP [address] [place] [phone] Arnaldo Banks CNP [address] [address] Referral ID Status Reason Start Date Expiration Date Visits Requested Visits Authorized [id number] Authorized Specialty Services Required/Pat ient's Best Interest 09/15/2021 09/15/2022 1 1 Specialty Diagnoses / Procedures Referred By Contac t Referred To Contact Physical Therapy Diagnoses Osteoarthritis of right knee, unspecified osteoarthritis type Eliecer Hill CNP [address] [place] [id number] Referral ID Status Reason Start Date Expiration Date Visits Requested Visits Authorized [id number] Authorized Patient Preference 09/15/2021 09/15/2022 1 1 Specialty Diagnoses / Procedures Referred By Contac t Referred To Contact Cardiology Diagnoses Syncope, unspecified syncope type Procedures Echocardiogram complete Lenard Das MD [address] [place] [address] Referral ID Status Reason Start Date Expiration Date V isits Requested Visits Authorized [id number] Pending Review 11/20/2021 11/20/2022 1 1 Specialty Diagnoses / Procedures Referred By Contac t Referred To Contact Cardiology Diagnoses Pacemaker PericoadLenard funes MD [address] [place] [address] Aaron Torres MD [address] [place] [address] Referral ID Status Reason Start Date Expiration Date V isits Requested Visits Authorized [id number] Authorized 02/24/2022 02/24/2023 1 1 Specialty Diagnoses / Procedures Referred By Contac t Referred To Contact Cardiology Diagnoses Pacemaker complications, initial encounter Syncope, cardiogenic Procedures Outpatient Device Clinic Referral - Open for details Radha Hubbard DO [address] [place] [address] Referral ID Status Reason Start Date Expiration Date V isits Requested Visits Authorized [id number] Authorized 05/08/2022 05/08/2023 1 1 Specialty Diagnoses / Procedures Referred By Contac t Referred To Contact Neurosurgery Diagnoses Pacemaker Orthostatic hypotension Callie Ramirez MD [address] [place] [address] Kota Estrella MD [address] [place] [address] Referral ID Status Reason Start Date Expiration Date V isits Requested Visits Authorized [id number] Authorized 03/23/2023 03/22/2024 1 1 Specialty Diagnoses / Procedures Referred By Contac t Referred To Contact Radiology Diagnoses Back pain, unspecified back location, unspecified back pain laterality, unspecified chronicity Procedures MR Lumbar Spine Without Contrast Brooklyn Lynn MD [address] [place] [address] Referral ID Status Reason Start Date Expiration Date V isits Requested Visits Authorized [id number] New Request 05/29/2023 05/28/2024 1 1 Specialty Diagnoses / Procedures Referred By Contac t Referred To Contact Radiology Diagnoses Acute thoracic back pain, unspecified back pain laterality Procedures MR Thoracic Spine Without Contrast Brooklyn Lynn MD [address] [place] [address] Referral ID Status Reason Start Date Expiration Date V isits Requested Visits Authorized [id number] New Request 05/29/2023 05/28/2024 1 1 Specialty Diagnoses / Procedures Referred By Contac t Referred To Contact Cardiology Diagnoses Pain of left calf Procedures Ultrasound duplex venous leg left Brooklyn Lynn MD [address] [place] [address] [facility] [address] [place] [address] [place] [address] Referral ID Status Reason Start Date Expiration Date V isits Requested Visits Authorized [id number] Authorized 05/28/2023 05/27/2024 1 1 Specialty Diagnoses / Procedures Referred By Contac t Referred To Contact Cardiology Diagnoses LV dysfunction Procedures Echocardiogram limited PericoaduLenard MD [address] [place] [address] Referral ID Status Reason Start Date Expiration Date Visits Re quested Visits Authorized [id number] Closed 12/23/2021 12/23/2022 1 1 Specialty Diagnoses / Procedures Referred By Contac t Referred To Contact Radiology Diagnoses Bradycardia Syncope, unspecified syncope type Abnormal ECG Procedures NM Myocardial Perfusion Multiple SPECT Radha Hubbard, [address] [facility] [address] [place] [address] Referral ID Status Reason Start Date Expiration Date V isits Requested Visits Authorized [id number] New Request 08/10/2023 08/09/2024 4 4 Specialty Diagnoses / Procedures Referred By Contac t Referred To Contact Neurology Diagnoses NPH (normal pressure hydrocephalus) ([facility]) Olivier Acosta MD [address] [place] [address] [address] [place] [address] [facility] [address] Medical Office Building, [address]nd [place] [address] Referral ID Status Reason Start Date Expiration Date V isits Requested Visits Authorized [id number] Authorized 12/02/2023 12/01/2024 1 1 Specialty Diagnoses / Procedures Referred By Contac t Referred To Contact Rehabilitation Diagnoses Dizziness Leila Banuelos MD [address] [place] [address] Referral ID Status Reason Start Date Expiration Date Visits Requested Visits Authorized [id number] Authorized Patient Preference 12/17/2023 12/16/2024 1 1 Instructions Name Dates Details Instructions not documented Name Dates Details Instructions not documented Name Dates Details Instructions not documented Chief Complaint and Reason for Visit Chief Complaint UTI, weakness Chief Complaint UTI, weakness UTI Chief Complaint UTI, weakness UTI Amb Documentation Diabetes Reason for Visit Chronic kidney disea se Diabetes Obesity Chief Complaint UTI, weakness UTI Amb Documentation Diabetes COMPLICATED UTI, RENAL INSUFFICIENCY, ADULT FTT UTI Sx Reason for Visit Chronic kidney disea se Diabetes Obesity UTI (urinary tract infection) Chief Complaint UTI, weakness UTI Amb Documentation Diabetes COMPLICATED UTI, RENAL INSUFFICIENCY, ADULT FTT UTI Sx COMPLICATED UTI, RENAL INSUFFICIENCY, ADULT FTT Reason for Visit Chronic kidney disea se Diabetes Obesity Dehydration Elevated serum creatinine Generalized weakness Hyperglycemia Leukocytosis UTI (urinary tract infection) Vomiting Chief Complaint UTI, weakness UTI Amb Documentation Diabetes COMPLICATED UTI, RENAL INSUFFICIENCY, ADULT FTT UTI Sx COMPLICATED UTI, RENAL INSUFFICIENCY, ADULT FTT ILEUS INTRACTABLE PAIN ILEUS ILEUS ILEUS ILEUS SBO SBO SBO SBO SBO SBO SBO SBO Reason for Visit Chronic kidney disea se Diabetes Obesity Hyperglycemia Dehydration Elevated serum creatinine Generalized weakness Leukocytosis Vomiting Diabetes Abnormal CT scan, colon Nausea Chief Complaint UTI, weakness UTI Amb Documentation Diabetes COMPLICATED UTI, RENAL INSUFFICIENCY, ADULT FTT UTI Sx COMPLICATED UTI, RENAL INSUFFICIENCY, ADULT FTT ILEUS INTRACTABLE PAIN ILEUS ILEUS ILEUS ILEUS SBO SBO SBO SBO SBO SBO SBO SBO SBO BACK PAIN Reason for Visit Chronic kidney disea se Diabetes Obesity Hyperglycemia Dehydration Elevated serum creatinine Generalized weakness Leukocytosis Vomiting Diabetes Abnormal CT scan, colon Nausea Chief Complaint UTI, weakness UTI Amb Documentation Diabetes COMPLICATED UTI, RENAL INSUFFICIENCY, ADULT FTT UTI Sx COMPLICATED UTI, RENAL INSUFFICIENCY, ADULT FTT ILEUS INTRACTABLE PAIN ILEUS ILEUS ILEUS ILEUS SBO SBO SBO SBO SBO SBO PREOP SBO SBO SBO BACK PAIN FALL, COMPRESSION FX MRI follow up SYNCOPE, BACK PAIN, S/P KYPHOPLASTY SYNCOPE, BACK PAIN, S/P KYPHOPLASTY Reason for Visit Chronic kidney disea se Diabetes Obesity Hyperglycemia Dehydration Elevated serum creatinine Generalized weakness Leukocytosis Vomiting Diabetes Abnormal CT scan, colon Nausea Presence of cardiac pacemaker Sick sinus syndrome Back pain Debility History of vertebral fracture S/P kyphoplasty Syncope Diabetes Chief Complaint UTI, weakness UTI Amb Documentation Diabetes COMPLICATED UTI, RENAL INSUFFICIENCY, ADULT FTT UTI Sx COMPLICATED UTI, RENAL INSUFFICIENCY, ADULT FTT ILEUS INTRACTABLE PAIN ILEUS ILEUS ILEUS ILEUS SBO SBO SBO SBO SBO SBO PREOP SBO SBO SBO BACK PAIN FALL, COMPRESSION FX MRI follow up SYNCOPE, BACK PAIN, S/P KYPHOPLASTY SYNCOPE, BACK PAIN, S/P KYPHOPLASTY SYNCOPE, BACK PAIN, S/P KYPHOPLASTY SYNCOPE, BACK PAIN, S/P KYPHOPLASTY SYNCOPE, BACK PAIN, S/P KYPHOPLASTY SYNCOPE, BACK PAIN, S/P KYPHOPLASTY Reason for Visit Chronic kidney disea se Diabetes Obesity Hyperglycemia Dehydration Elevated serum creatinine Generalized weakness Leukocytosis Vomiting Diabetes Nausea Presence of cardiac pacemaker Sick sinus syndrome Back pain Debility History of vertebral fracture Orthostatic hypotension S/P kyphoplasty Syncope Diabetes Chief Complaint Pain in thoracic spi ne MRI PROGRAMMING Reason for Visit Presence of cardiac pacemaker Sick sinus syndrome Chief Complaint Admit Date MONTHLY EXAM November 20, 2024 3:3 6pm MONTHLY EXAM December 05, 2024 6:03 pm CARE HOME LAB WORK January 24, 2025 5:0 0am Additional Source Comments Jermaine Bazzi MD - 02/08/2018 10:22 PM EDT H&P Notes (unrecognized sect ion and content) Formatting of this note may be different from the original. Jermaine Bazzi MD [facility] Hospitalists History and Physical Patient Name:Kristen Mann :1950 Admit Date: [id number] Physicians: Behzad Mcintyre MD (Family); No ref. provider found (Referring) Perpetual Assessment: Kristen Mann is a 67 y.o. female who presented from outside hospital on 02/08/2018 with left arm weakness/paresthesia ASSESSMENT AND PLAN TIA - Etiology: unclear, h/o right carotid stenosis - Presented with: headache, double vision, LUE weakness/paresthesia - Interventions: none - Current neurologic status: symptoms resolved, except for headache - Labs/diagnostics: CT: unremarkable CTA: MRI/A: to be ordered by neurology ECHO: to be ordered HgbA1c: ordered FLP: ordered - Antiplatelets/Anticoagulation: Plavix - Statin: Lipitor - BP goal: 220/120 for the 1st 24 hours. Hold home meds - DVT prophylaxis: Heparin Subcutaneous - Dietary modifications: diabetic/cardiac - Other Neurology recommendations: pending - Disposition: home DM2 - cont home Lantus 22 units QAM, humulog 7 units TIDAC plus ISS - hold metformin - check A1c Migraine - On elavil, tylenol prn Depression - cont celexa and elavil Asthma - stable, cont Singulair HTN - hold HCTZ, permissive HTN for now Code Status: full DVT Prophylaxis Heparin Subcutaneous Medication Reconciliation Reviewed Comments/Disposition: HISTORY CC: Left arm weakness/paresthesia HPI: Kristen Mann is a 67 y.o. female with PMH of DM2, TIA, UTI, retinal hemorrhage, GERD, asthma, migraine presented to [facility] with the above c/c. Patient states that she had some diffuse headache with double vision after going home from work last evening. Symptoms resolved when she woke up this morning. On the way driving to work this afternoon, she started feeling burning and heaviness to her forearm. Symptoms lasted about 15 min and resolved upon arrival at [facility]. CT head at [facility] was unremarkable. She was transferred to [facility] for further evaluation. Patient reports h/o TIA many years ago with right facial droop, on Palvix which was discontinued by her neurologist who thought it was due to migraine rather than TIA. Patient had MRI Brain from [facility] 12/2017 reported as '>70% right carotid stenosis' and was told that she needs surgery for that. At this time, she c/o some headache over the left frontal region, which is typical for her migraine. ROS: > > > > > > > > > > The following system(s) were reviewed. Pertinent positive and negative findings are noted in the HPI. [x] Const [x] Eyes [x] ENT [x] Resp [x] CV [x] GI [x] [x] Neuro [x] Musc [x] Skin [x] Psych [x] Endo [x] Allergy [x] Heme/Lymph PMH/PSH/SH/FH: Past Medical History: Diagnosis Date Asthma Diabetes (HCC) GERD (gastroesophageal reflux disease) Granulomatous disease ([facility]) Migraine headache Recurrent UTI 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[facility]) Past Surgical History: Procedure Laterality Date APPENDECTOMY SECTION, CLASSIC x2 CHOLECYSTECTOMY OPEN EYE SURGERY HYSTERECTOMY Family History Problem Relation Age of Onset Heart disease Father Asthma Mother Social History Social History Marital status: Spouse name: N/A Number of children: N/A Years of education: N/A Occupational History Not on file. Social History Main Topics Smoking status: Never Smoker Smokeless tobacco: Never Used Alcohol use No Drug use: No Sexual activity: Not on file Other Topics Concern Not on file Social History Narrative Pets: dog Living Arrangements: Alone Support Systems: Spouse/significant other Functional Status: Independent Allergy Information: I have reviewed the patient's allergies. Morphine; Penicillins; and Sulfa (sulfonamide antibiotics) Home Medications: No outpatient prescriptions have been marked as taking for the 02/08/18 encounter (Hospital Encounter). PHYSICAL EXAMINATION > > > > > > > > Vital Signs: Temp: [98.6 °F (37 °C)] 98.6 °F (37 °C) Heart Rate: [85] 85 Resp: [22] 22 BP: (143)/(80) 143/80 GENERAL: NAD EYES: Conjunctiva and sclera clear, EOMI, PERRL. Peripheral visual field deficit b/l (chronically due to retinal disease) ENT: Hearing intact. Pharynx clear. NECK: No adenopathy or thyromegaly. CV: RRR, no murmur. No JVD. No edema. RESP: Clear, no rales, rhonchi, wheezes or increase in respiratory effort, no use of accessory muscles. GI: Non-distended, +BS, soft, non-tender. No guarding, masses or rebound MUSC: Normal ROM without deformity. SKIN: Warm and dry. No rashes. NEURO: Alert, Ox3. Grossly normal motor and sensory exam. No focal deficits. PSYCH: Mood and affect are appropriate. Cooperative. Laboratory and Additional Data Acquired or Reviewed: [x] Laboratory [x] Transcriptions [x] Radiology [] Microbiology [x] Cardiology [] Outside Records [x] Medications [] Family Time Spent: in this encounter Lenard Carpenter RN - 02/09/2018 4:47 PM Lenard Snow RN - 02/09/2018 4:45 PM Ivet Keating SLP - 02/09/2018 10:36 AM Kalee Galvan MD - 02/09/2018 10:18 AM EDT Consult Notes (unrecognized section and content) Associated Order(s): IP CONSULT TO [facility] Diabetic education completed. ConsultsPt is a DM 2 A1c 8.5 on orals and insulin at home. Pt / Family request. Provided diabetic education. Pt follows an [facility] outpatient. Encouraged follow up and taking medications as ordered. Pt doesn't check BG like she should. Education on checking BG frequently and lifestyle changes with diet and exercise. Gave pt DM solutions book, and home care packet. Attached diet education to AVS. Pt verbalized understanding. Formatting of this note may be different from the original. Speech Pathology Bedside Swallow Evaluation Recommended Diet: PO Recommendations: Regular, Thin liquid Discharge Recommendations: Skilled Therapy Needs: Are Skilled Therapy Services Needed After Discharge: No Impressions / Severity Level: Impressions-Severity Oral Severity Scale: WFL Pharyngeal Severity Scale: WFL Kristen Mann was seen for initial BSE. Pt was alert and cooperative. Patient trialed on the following: CONSISTENCY PRESENTATION ORAL (SIGNS / SYMPTOMS) PHARYNGEAL (SIGNS / SYMPTOMS) THIN Cup, Straw Within functional limits Within Functional Limits PUREE Self Fed, Spoon Within functional limits Within Functional Limits SOLID Self Fed Within functional limits Within Functional Limits No overt s/s aspiration with any trials, positive and timely laryngeal elevation on palpation, and clear vocal quality s/p all PO. Overall, oropharyngeal phases of the swallow appear WFL. No f/u ST recommended for dysphagia. Patient O-Log (Orientation Log) score: 30/30. Cut off score: 25 or better. Recommendations: Recommendations PO Recommendations: Regular, Thin liquid Postures: Sit 90 degrees Food Presentation: Average bites Liquid Presentation: Average sips Medication Presentation: Whole with thins Amount of Supervision: Not required Treatment Techniques: No speech therapy Prior Level of Function: Prior Function Diet Prior to BSE: Regular (Pt had not eaten as yet.) Behavioral Observations: Alert, Cooperative For complete objective data, detailed plan of care, and education refer to: Speech Bedside Swallow Evaluation flow sheet, as well as patient Plan of Care and Education documentation This note stands as the current Discharge Summary upon patient discharge from the hospital or completion of Speech Pathology Plan of Care Associated Order(s): IP CONSULT TO NEUROLOGY Formatting of this note may be different from the original. VASCULAR NEUROLOGY FOLLOW-UP [facility] Patient Name: Kristen Mann Admit Date: [id number] MR #: [id number] : 1950 Date of Neurology Consultation: 02/09/18 Name of Provider: Kalee Montelongo MD Other Physicians: Behzad Mcintyre MD (Primary Care Physician); No ref. provider found (Referring) Site: [facility] Provider: Kalee Montelongo MD [phone] Impression: Kristen Mann is a 67 y.o. 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 Symptoms lasted < 15 min. MRI was negative. CTA head/neck shows 40% ICA stenosis. Recommendations: --Aspirin 81 mg --Follow up with sleep physician for YVONNE --LDL 135; defer to primary service if needed for primary prevention --A1c 8.5%; goal <6.5%;during hospital stay goal glucose is 80-180 --BP normotensive --SCD boots, SQ heparin --PT/OT/Speech Therapy --1 year follow up with CTA for right ICA stenosis. Follow up with local neurologist Please call if there are any questions or concerns. Kalee Montelongo MD Vascular Neurology [facility] Neurological Physicians Comments: Answered questions and rediscussed plan with patient, attending service MR images reviewed and summarized in DATA/Testing section Time statement: A total of 75 minutes were spent on this encounter either in the patient's room or on the patient's hospital unit and over half of that time was spent on [id number] counseling and/or coordination of care. ----- Subjective: Chief Complaint/Reason for Visit: Follow-up for transient left arm weakness and pain with headache Interval History: No overnight events. Review of Systems: The following system(s) were reviewed and pertinent findings noted: Constitutional:No fever, no weight loss Eyes:No diplopia ENT:No sinus drainage CV:No chest pain. No ankle swelling Resp:No dyspnea. No wheezing GI:No abdominal pain.No abdominal distention Neuro:No headache Integumentary:No skin rash MuscSkel:No arthralgias Endo:No polyuria Heme/lymphatic:No apparent lymphadenopathy - - - - - - - - - - - - - - - - - - - - - - - - - - - - - - - - - - - - - - - Physical Examination: Vital signs in last 24 hours: Temp: [97.9 °F (36.6 °C)-98.9 °F (37.2 °C)] 98.9 °F (37.2 °C) Heart Rate: [83-118] 111 Resp: [13-23] 16 BP: (69-143)/(42-81) 114/76 GENERAL: General appearance: NAD Fundi exam: Normal; no papilledema Neck: supple Carotid auscultation: normal Heart auscultation: normal Extremities: No cyanosis MENTAL STATUS: Alertness, attention span & concentration: normal Language: normal Speech: normal Orientation to self, place & time: normal Memory, recent & remote: normal Fund of knowledge: normal CRANIAL NERVES: II - Visual cheney: normal II, III: Pupils: PERRL III, IV, : Eye movements: normal (EOMI, No ptosis, No nystagmus) V - Facial sensation: normal VII: Face symmetry & strength: normal VIII Hearing: normal IX, X Palate: normal XI - Shoulder shrug: normal XII - Tongue protrusion: normal MOTOR - GROSS: Gait & stance: normal Gait aid used during exam: none or N/A Gait assistance required during exam: none or N/A Tone & bulk: normal Abnormal movements: none Coordination: [id number]: normal Coordination: [id number]-[id number]: normal Rapid alternating movements: normal Drift: none MOTOR - MUSCLE STRENGTH: Right Muscle Strength Left 5 Shoulder abduction 5 5 Elbow flexion 5 5 Elbow extension 5 5 Finger abduction 5 5 Hip flexion 5 5 Knee extension 5 5 Knee flexion 5 5 Dorsiflexion 5 General Description MRC Definitions 5 Normal Normal power 4 Mild weakness Movement against moderate resistance over a full range of motion 3 Moderate weakness Movement against gravity over almost full range of motion 2 Severe weakness Movement with gravity eliminated over almost full range of motion 1 Trace movement Flicker of contraction visible or palpable 0 NO movement No contraction visible or palpable TRACIE UNABLE to assess -- REFLEXES: Right Reflexes Left 2+ Biceps 2+ 2+ Triceps 2+ 2+ Brachioradialis 2+ 2+ Patellar 2+ 1+ Achilles 1+ non-reactive Plantar response (Babinski) non-reactive Definitions 4+ Sustained Clonus 3+ Brisk 2+ Normal 1+ Diminished 0 Absent TRACIE UNABLE to assess SENSORY: Fine Touch: normal Pinprick: normal Proprioception: normal NIH Stroke Scale NIH Stroke Scale Interval: Baseline Level of Consciousness (1a.): Alert, keenly responsive LOC Questions (1b.): Answers both questions correctly LOC Commands (1c.): Performs both tasks correctly Best Gaze (2.): Normal Visual (3.): No visual loss Facial Palsy (4.): Normal symmetrical movements Motor Arm, Left (5a.): No drift Motor Arm, Right (5b.): No drift Motor Leg, Left (6a.): No drift Motor Leg, Right (6b.): No drift Limb Ataxia (7.): Absent Sensory (8.): Normal, no sensory loss Best Language (9.): No aphasia Dysarthria (10.): Normal Extinction and Inattention (11.) (Formerly Neglect): No abnormality Total: 0 Imaging and Tests Completed to date: CT non-contrast head (02/08/2018): No acute intracranial pathology. CTA neck (02/08/2018): Right ICA 40%. Otherwise no significant carotid stenosis. CTA head (02/08/2018): NO LVO, stenosis, or aneurysm MRI brain (02/09/2018): No infarction Lab Results Component Value Date LDLCALC 135 (H) 02/09/2018 Lab Results Component Value Date HGBA1C 8.5 (H) 02/09/2018 Formatting of this note may be different from the original. Physical Therapy PHYSICAL THERAPY EVALUATION NOTE Skilled Therapy Needs After Discharge Are Skilled Therapy Services Needed After Discharge: Yes Intensity of Skilled Therapy: 2-3 days per week (for high level balance) DME Recommendation: None Outcomes Measures Prior Function - Basic Mobility Raw Score: 24 Points Prior Function - Basic Mobility % Impaired: 0% functionally impaired AM-PAC - Basic Mobility Raw Score: 23 Points AM-PAC - Basic Mobility % Impaired: 16.55% functionally impaired Crews Balance Scale performed. Pt scored 53 Out of a Possible 56 indicating a Low Fall Risk (41-56). Physical Therapy Assessment History: The following factors influence the patient's participation in the PT plan of care: Personal factors: age Environmental factors: lives alone The following co-morbidities (from this admission or prior) influence the patient's participation in this plan of care: admit with LUE weakness/parasthesia, DM II, migraine, depression Number of History elements affecting this patient's PT plan of care: 3 or more Examination of Body Systems: The patient presents with impairments of balance. These impairments result in limitations of safety. These impairments result in restrictions of none. Number of Body Systems elements affecting this patient's PT plan of care: 1-2 Clinical Presentation: The patient's clinical presentation for this PT evaluation is stable as evidenced by current PT documentation. Activity Tolerance Activity Tolerance: Endurance does not limit participation in activity Therapy Precautions Orthotic Devices: No Weight Bearing Status: WFL General Rehab Precautions: Fall risk Balance Sitting Balance - Static: (IND) Sitting Balance - Dynamic: (IND) Standing Balance - Static: (IND) Standing Balance - Dynamic: (IND to CG depending on activity. ) Bed Mobility Supine to Sit: Modified independence Sit to Supine: Modified [place] Transfers Sit to Stand: Independent Gait/Locomotion Gait Assistance: Independent Assistive Device: None Distance: 300 Feet Pattern: Within Functional Limits Home Living Type of Home: House Home Layout: One level (2 DELROY no HR) Bathroom Shower/Tub: Tub/shower unit Bathroom Toilet: Raised Bathroom Equipment: (none) Home Equipment: (has rollators, commodes etc. all from her parents. 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 Also works doing [employer] on fridays. ) Leisure: (read, walk, takes grandsons swimming (6th and 9th grader)) Comments: son lives next door and is avilable to assist as needed. Pt reports having other family members nearby as well that will be able to assist also. drives, manages meds, manages finances. Pt reports h/o falls, reports getting dizzy with bending over or when turning. Past Medical History: Diagnosis Date Asthma Diabetes (HCC) GERD (gastroesophageal reflux disease) Granulomatous disease (HCC) Migraine headache Recurrent UTI 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[facility]) Past Surgical History: Procedure Laterality Date APPENDECTOMY SECTION, CLASSIC x2 CHOLECYSTECTOMY OPEN EYE SURGERY HYSTERECTOMY PHYSICAL THERAPY TREATMENT NOTE Total Treatment Time (Total Session Time): 40 Minutes Timed Code Treatment Minutes: 20 Minutes Neuromuscular Reeducation Skilled Intervention: BP stable with change from sitting to standing. No increase with dizziness with positional changes or head turns. Provided education to patient re: reduced sensation in bilalteral feet and effect on balance when visual input is compromised. Pt demos understanding. Crews performed with patient demonstrating difficulty with SLS and tandem standing. Performed gait with horizontal head tuns, gait with vertical head turns, tandem gait, backwards gait, stepping over obstacle, gait with eyes closed and changes in gait speed. Gait Training Skilled Intervention: mild deviations with head turns, changes in speed. No overt LOB. For complete objective data, detailed plan of care and patient education refer to: PT EVALUATION flow sheet, PT TREATMENT flow sheet, patient Plan of Care, Plan of Care progress note, and Patient Education. This note stands as the current Discharge Summary upon patient discharge from the hospital or completion of Physical Therapy Planin this encounter Quick Note - Imelda Quesada MD - 02/09/2018 4:19 PM EDTSign Off Note - Kalee Montelongo MD - 02/09/2018 3:49 PM EDTPlan of Care - Anni Templeton PT - 02/09/2018 11:17 AM EDT Miscellaneous Notes (unrecog nized section and content) Patient seen and examined, doing well. OK to discharge home. Formatting of this note may be different from the original. Neurology Sign-Off Diagnosis: Hemiplegic migraine YVONNE Tests Pending: None Discharge Medications & Treatments: Aspirin 81 Compliance with YVONNE/sleep evaluation Additional Recommendations: None Follow-up Testing (After Discharge): Follow up CTA head and neck in one year Follow-up Appointment: Follow up with PCP and local neurologist. Recall: If questions. If worsening neurologic exam. Kalee Montelongo MD Formatting of this note may be different from the original. Physical Therapy Plan of Care Certification Note Coded Admission Diagnosis TIA (transient ischemic attack) [G45.9] PT Functional Diagnosis: R26.81 Unsteadiness on feet PT Goals Multidisciplinary Problems (Active) Problem: Mobility - Impaired Dates: Start: 02/09/18 Disciplines: PT Goal: PT- Mobility Other Dates: Start: 02/09/18 Expected End: 02/09/18 Description: PT- Patient will demonstrate understanding of all education re: increased risk of falls with impaired distal LE sensation and risk of falling with orthostatic hypotension symptoms. Disciplines: PT Intervention: Education, Balance training Frequency: PRN Dates: Start: 02/09/18 Description: REMINDER(s): Reinforce education provided by Physical Therapy related to balance training. Intervention: Education, Gait training Frequency: PRN Dates: Start: 02/09/18 Frequency of Treatment (times per week): 1 This physical Therapy Plan of Care will be carried out until: 1.) The PT plan has been resolved or 2.) The patient is discharged from the acute care hospital Patient called our office asking for a peripheral eval - apparently had carotid studies at [place] and was referred to [facility] for surgical eval but she wishes to come to [place]. She called our office to set up an eval on February 02 and we requested records but in meantime she is now in hospital with TIA so if she does indeed have carotid disease that needs eval/treatment perhaps our peripheral docs can address while she is in hospital. Spoke with hospitalist and informed her of this. SPEECH THERAPY VISIT VARIANCE NOTE Attempted to see patient at this time, but unable secondary to: Visit Variance: Patient Unavailable. Will follow up as appropriate. Pt working with PT at this time. Patient transported to [place] by [facility], report on arrival to ED. Receiving unit notified of patient's arrival. Patient's vital signs BP 143/82, HR 90 nsr, RR 20, Pulse Ox 97% on RA . Patient has a chief complaint of TIA. Patient does have patent IV access. Patient was on cardiac cath technician prior to arrival. Patient transported to room 5502 in stable condition.in this encounter Associated Problem(s): Carotid stenosis, right We will try to obtain results recently of her updated carotid studies completed at her local [facility]. I note that she has hyperlipidemia, on Zetia, consideration for statin therapy would be appropriate but I would refer that back to her primary care physician if not previously addressed Associated Problem(s): Tachycardia She was referred here for evaluation of ongoing tachycardia. Her EKG here shows sinus tachycardia. The patient tells me for several months she has been having symptoms of dizziness, she apparently did pass out one time in her shower. She has had evaluation performed through her local community physician, this is included a monitor, by her communication to me today apparently there were no significant arrhythmias noted. She also had her carotids updated, again there was no progression of disease. We are trying to get test results. We have the echo completed here several months ago which showed normal systolic function. In reviewing her office visits in our records over the past several years, I note she was tachycardic even in 2018 during office visits. Additionally she notes more recent problems with exertional dyspnea, that is been bothersome to her and progressive in the past several months. Apparently her pulmonary function studies are not severe enough to account for this level of dyspnea, she does have sleep apnea but cannot tolerate treatment. She does not describe PND orthopnea. She has no edema complaints. Recommendations: 1. We will try to obtain test results previously completed, I did not repeat her echo or Holter at this time 2. She should have a perfusion study completed to rule out ischemic heart disease, family history notable in her father who was in his 80s who had bypass surgery. She has additional other risk factors. 3. I will check a TSH level, she does not recall that she has had that checked in the past. If her stress study does not show any significant ischemic burden, I would consider treatment with a beta-rosalio, we have to be cautious in regards to any exacerbation of her underlying asthma. We will be in contact with her otherwise if there is concerns on her stress study, and I like to follow her up here in the office for reassessment. Addendum: Review of recent Holter showed an average heart rate of 103, maximum of 141 sinus tachycardia, rare atrial activity, rare ventricular ectopy echo completed July 2019 showed EF of 55 to 60%, sigmoid septum, mild mitral annular calcification mild mitral insufficiency mild aortic valve sclerosis chest x-ray showed no acute disease, carotid duplex study showed less than 50% stenosis in the carotid vascular bilaterally, EKG done on March 15 showed sinus rhythm heart rate was 99, cannot exclude an inferior infarct age undetermined documented in this encounter Associated Problem(s): Tachycardia Heart rate is better today on her exam. She will continue her medications as currently prescribed. documented in this encounter Addended by: ELIECER HILL on: 08/10/2020 03:15 PM Modules accepted: Orders documented in this encounter Associated Problem(s): Hyperlipidemia She does have hyperlipidemia, however she tells me she is intolerant or has side effects with statins. She does not seem to be interested to retrial those. May benefit from consideration for Zetia but I would refer that back to her primary care. Associated Problem(s): NOBLE (dyspnea on exertion) She has previously been diagnosed with sleep apnea, did not tolerate at least at the time of the study any attempted devices she is not had a follow-up. She does tell me that she sleeps regularly during the day, she also feels very tired persistently. I think she would clearly benefit from a reattempt to establish with a sleep center and will give her a referral here. Associated Problem(s): Tachycardia Her EKG today again shows sinus tachycardia. Since being placed on a beta- rosalio she tells me she is not sure is helped her symptoms. Her blood pressure has on occasion been in the 100 systolic range. I am little bit hesitant to push on the dose. With her continued symptomatology of dizziness I am go to repeat a 24-hour Holter, we will also update her echo. I think she would benefit for more formal neurologic assessment, I do not know if this is an unknown neurologic disorder giving her this constellation of symptoms but I would like a more expert opinion. We will try to get that arranged here locally. Associated Problem(s): Dizziness She still complains of dizziness. She has apparently fallen on occasion but I do not think it is syncope per se. Episodes are not necessarily orthostatic in description or least not consistently such. She does tell me she has some visual field defects related to retinopathy. She does not see in the lower quadrants, she has fallen down on stairs because she does not see the step. She also has seen a neurologist in the past for migraines, I do not know if there is been other more specific neurologic diagnosis. She has been on a beta-rosalio, she feels the beta-rosalio is not necessary improve the dizzy episodes. Associated Problem(s): Echocardiogram abnormal Her echo which was completed at an outside facility describes in the report of sigmoid septum overall ejection fraction is preserved. I would like to update her echo here. On exam she has no significant murmur. documented in this encounter INFORMATION SOURCE (unrecogn ized section and content) DATE CREATED AUTHOR 02/25/2018 [facility] DATE CREATED AUTHOR AUTHOR'S ORGANIZ ATION 08/18/2018 [facility] DATE CREATED AUTHOR AUTHOR'S ORGANIZ ATION 08/20/2018 [facility] DATE CREATED AUTHOR AUTHOR'S ORGANIZ ATION 08/11/2019 [facility] DATE CREATED AUTHOR AUTHOR'S ORGANIZ ATION 09/26/2020 [facility] DATE CREATED AUTHOR AUTHOR'S ORGANIZ ATION 05/16/2021 [facility] DATE CREATED AUTHOR AUTHOR'S ORGANIZ ATION 09/28/2021 [facility] DATE CREATED AUTHOR AUTHOR'S ORGANIZ ATION 10/14/2021 [facility] DATE CREATED AUTHOR AUTHOR'S ORGANIZ ATION 12/18/2021 [facility] DATE CREATED AUTHOR AUTHOR'S ORGANIZ ATION 01/07/2023 [facility] DATE CREATED AUTHOR AUTHOR'S ORGANIZ ATION 12/19/2023 [facility] DATE CREATED AUTHOR AUTHOR'S ORGANIZ ATION 12/22/2023 [facility] DATE CREATED AUTHOR AUTHOR'S ORGANIZ ATION 04/10/2024 [facility] DATE CREATED AUTHOR AUTHOR'S ORGANIZ ATION 09/23/2024 [facility] DATE CREATED AUTHOR AUTHOR'S ORGANIZ ATION 01/04/2025 [facility] DATE CREATED AUTHOR AUTHOR'S ORGANIZ ATION 02/09/2025 [facility] Reason for Visit (unrecogniz ed section and content) Reason Comments Pain pain for several yrs . Dr Olvera gave her injections about 6 months ago Pain Reason Comments Pain b/l wrist pain Pain Reason Comments Pain ep b/l hip oa Reason Comments Follow-up SOB Status Reason Specialty Diagnoses / Procedures Referred By Contact Referred To Contact Closed Cardiology Diagnoses Tachycardia NOBLE (dyspnea on exertion) Angelina Lopez MD [address] [place] [address] [phone] Patricia Dowling MD [address] [place] [id number] Status Reason Specialty Diagnoses / Procedures Referre d By Contact Referred To Contact Closed Radiology Diagnoses NOBLE (dyspnea on exertion) Abnormal ECG Procedures NM Myocardial Perfusion Study Single - Stress Only NM Myocardial Perfusion Multiple SPECT Cecilia Campos MD [address] [place] [address] Reason Comments Follow-up NOBLE Reason Comments Injections b/l hip Reason Comments Pain Reason Comments Follow-up Asthma Status Reason Specialty Diagnoses / Procedures Referred By Contact Referred To Contact Closed Sleep Medicine Diagnoses YVONNE (obstructive sleep apnea) YVONNE Procedures HOME SLEEP TEST HST Steve Palacios MD [address] [place] [id number] [facility] Medicine [address] [place] [phone] Reason Comments Procedure Baron hip injection Reason Comments Pain Injury Reason Comments Follow-up 3 month follow up Reason Comments Follow-up Pain Reason Comments Follow-up MRI Follow up Status Reason Specialty Diagnoses / Procedures Referred By Contact Referred To Contact Closed Rheumatology Diagnoses Arthralgia, unspecified joint Eliecer Hill, MAGNETIC PROSPECTING OPERATOR [address] [place] [address] [facility] [address] [place] [address] Status Reason Specialty Diagnoses / Procedures Referre d By Contact Referred To Contact Closed Radiology Diagnoses Lung nodules Procedures CT Chest Without Contrast Angelina Lopez MD [address] [place] [phone] Reason Comments Follow-up follow-up testing Reason Comments Pain bila hip Reason Onset Date Comments Medication Refill 12/11/2020 Status Reason Specialty Diagnoses / Procedures Referre d By Contact Referred To Contact Lenard Das MD [address] [place] [phone] Reason Comments Post-op Reason Comments Follow-up Pain Reason Comments Dizziness Patient was seeing a Neurologist in [place] Dr. Blake. She states she had a EEG, MRI and possible CT of brain. She states dizziness all the time or a light headed feeling. She states some days are worse. She has had retinopathy surgery on both eyes. Status Reason Specialty Diagnoses / Procedures Referre d By Contact Referred To Contact Closed Neurology Diagnoses Dizziness Cecilia Campos MD [address] [place] [phone] [facility] [address] Medical Office Building, [address] [place] [address] Reason Comments Establish Care Linq per Campos -disc uss ron episode on lux Status Reason Specialty Diagnoses / Procedures Referre d By Contact Referred To Contact Closed Cardiology Diagnoses Tachycardia Cecilia Campos MD [address] [place] [phone] [facility] [address] [place] [address] Reason Onset Date Comments Medication Refill 07/24/2021 Reason Comments Follow-up 's pt Asthma 's pt Reason Comments Pain Follow-up Reason Comments Follow-up Reason Comments Follow-up 4 mo still dizzy Reason Comments Follow-up Discuss PPM date kehinde ed 11-28-21 Reason Onset Date Comments Medication Refill 12/23/2021 Specialty Diagnoses / Procedures Referred By Padmini rangel Referred To Contact Cardiology Diagnoses Pacemaker Lenard Das MD [address] [place] [phone] Aaron Torres MD [address] [place] [address] Referral ID Status Reason Start Date Expiration Date Visits Re quested Visits Authorized [id number] Closed 02/24/2022 02/24/2023 1 1 Reason Comments Chest Pain Specialty Diagnoses / Procedures Referred By Contac t Referred To Contact Diagnoses Elevated troponin Near syncope Syncope, cardiogenic Orthostatic dizziness Complication associated with cardiac pacemaker lead, initial encounter Stage 3a chronic kidney disease (HCC) Referral ID Status Reason Start Date Expiration Date Visits Re quested Visits Authorized [id number] 1 1 Reason Comments Wound Check S/P RV lead revision 05/08/22 Reason Comments Follow-up Right knee Reason Comments Follow-up 7mo, previous Campos/ C/P yesterday Reason Comments Back Pain Patient presents tod ay for a new patient for lumbar back pain. Patient states that walking is difficult for her to do. Specialty Diagnoses / Procedures Referred By Contac t Referred To Contact Neurological Surgery / Neurosurgery Diagnoses Back pain, unspecified back location, unspecified back pain laterality, unspecified chronicity Day, Callie Veras MD [address] [place] [address] Kota Estrella MD [address] [phone] Referral ID Status Reason Start Date Expiration Date V isits Requested Visits Authorized [id number] Pending Review 03/31/2023 03/30/2024 1 1 Reason Onset Date Comments Medication Refill 06/17/2023 Reason Comments Post-op Post-op follow up 1 week to check her kyphoplasty site Reason Comments Establish Care meds CDZ, midodrine Reason Comments Post-op 4 week f/u after kyp hoplasty Reason Comments Injury Reason Comments Emesis Nausea Specialty Diagnoses / Procedures Referred By Contac t Referred To Contact Diagnoses Dizziness NPH (normal pressure hydrocephalus) (HCC) UTI (urinary tract infection) Elevated troponin Complicated UTI (urinary tract infection) Nausea and vomiting, unspecified vomiting type Referral ID Status Reason Start Date Expiration Date Visits Re quested Visits Authorized [id number] 1 1 Care Teams (unrecognized sec tion and content) Medical Record Specialist Relationship Specialty Start Date End Date Mimi Estrada PA-C [address] [facility] [place], [place] [phone] PCP - General Physician Banquet Houseperson 06/20/20 Medical Record Specialist Relationship Specialty Start Date End Date Olivier Acosta MD [address] [place] [phone] PCP - General 06/25/21 Medical Record Specialist Relationship Specialty [place] [address] [place] [address] Road [address] [place] [phone] PCP - General 06/25/21 Medical Record Specialist Relationship Specialty Start Date End Date Olivier Acosta MD [address] [place] [address] [place] [phone] PCP - General 06/25/21 Medical Record Specialist Relationship Specialty Start [place] [address] [place] [address] Road [address] [place] [phone] PCP - General 06/25/21 Medical Record Specialist Relationship Specialty Start [place] [address] [place] [address] Road [address] [place] [phone] PCP - General 06/25/21 Medical Record Specialist Relationship Specialty [place] [address] [place] [address] Road [address] [place] [phone] PCP - General 06/25/21 Medical Record Specialist Relationship Specialty Start Date End Date Olivier Acosta MD [address] [place] [phone] PCP - General 06/25/21 Medical Record Specialist Relationship Specialty Start Date End Date Olivier Acosta MD [address] [place] [phone] PCP - General 06/25/21 Medical Record Specialist Relationship Specialty Start Date End Date Olivier Acosta MD [address] [place] [phone] PCP - General 06/25/21 Medical Record Specialist Relationship Specialty Start Date End Date Olivier Acosta MD [address] [place] [phone] PCP - General 06/25/21 Medical Record Specialist Relationship Specialty Start Date End Date Olivier Acosta MD [address] [place] [phone] PCP - General 06/25/21 Medical Record Specialist Relationship Specialty Start Date End Date Olivier Acosta MD [address] [place] [phone] PCP - General 06/25/21 Medical Record Specialist Relationship Specialty Start Date End Date Olivier Acosta MD [address] [place] [phone] PCP - General 06/25/21 Medical Record Specialist Relationship Specialty Start Date End Date Olivier Acosta MD [address] [place] [phone] PCP - General 06/25/21 Medical Record Specialist Relationship Specialty Start Date End Date Olivier Acosta MD [address] [place] [phone] PCP - General 06/25/21 Medical Record Specialist Relationship Specialty Start Date End Date Mimi Estrada PA-C PCP - General Family Practice 01/19/18 Marcy Maria, MAGNETIC PROSPECTING OPERATOR [address] [place], [place] [address] Referring Neurology 01/19/18 Medical Record Specialist Relationship Specialty Start Date End Date Olivier Acosta MD [address] [place] [address] Road [address] [place] [phone] PCP - General 06/25/21 Cecliia Campos MD [address] [place] [phone] [facility] 05/08/22 Medical Record Specialist Relationship Specialty Start Date End Date Olivier Acosta MD [address] [place] [address] [place] [phone] PCP - General 06/25/21 Cecilia Campos MD [address] [place] [phone] [facility] 05/08/22 Medical Record Specialist Relationship Specialty Start Date End Date Olivier Acosta MD [address] [place] [address] [place] [phone] PCP - General 06/25/21 Cecilia Campos MD [address] [place] [phone] [facility] 05/08/22 Medical Record Specialist Relationship Specialty Start Date End Date Mimi Estrada PA-C PCP - General Family Medicine 01/19/18 Marcy Maria, MAGNETIC PROSPECTING OPERATOR [address] [place] [address] Referring Neurology 5/16/18 Medical Record Specialist Relationship Specialty Start Date End Date Olivier Acosta MD [address] [facility] [address] [place] [address] PCP - General 06/25/21 Cecilia Campos MD [address] [place] [address] [facility] 05/08/22 Team Status: Active Member Role Status Dates Mimi LOPEZ PA-C Family Provider Active Dr. Olivier Acosta MD Primary Care Provider Active Team Status: Inactive Member Role Status Dates Dr. Olivier Acosta MD Primary Care Provider, Refer ring Provider Active Dyana Huddleston NP-C Attending Provider Active Team Status: Active Member Role Status Dates Dr. Olivier Acosta MD Primary Care Provider Active Lenard Dickerson Attending Provider Active Team Status: Active Member Role Status Dates Dr. Olivier Acosta MD Primary Care Provider Active Dr. Lolis Smith DO Emergency Provider Active Dr. Isabell Hanson MD Attending Provider Active Team Status: Active Member Role Status Dates Dr. Olivier Acosta MD Primary Care Provider Active Dr. Lolis Smith DO Emergency Provider Active Dr. Isabell Hanson MD Admit Provider, Other Provider Active Dr. Fozia Cervantes DO Attending Provider, Other Provide r Active Team Status: Active Member Role Status Dates Dr. Olivier Acosta MD Primary Care Provider Active Facundo oDnohue MD Emergency Provider Active Dr. Prabhakar Murry MD Admit Provider, Attending Provider, Other Provider Active Team Status: Active Member Role Status Dates Dr. Olivier Acosta MD Primary Care Provider Active Facundo Donohue MD Emergency Provider Active Dr. Prabhakar Murry MD Admit Provider, Other Provide r Active Dr. Emmanuel Hidalgo , Other Provider Active Dr. Mahamed Tipton MD Attending Provider Active Team Status: Active Member Role Status Dates Dr. Olivier Acosta MD Primary Care Provider Active Facundo Donohue MD Emergency Provider Active Dr. Prabhakar Murry MD Admit Provider, Other Provide r Active Dr. Emmanuel Hidalgo DO Attending Provider, Other Provid er Active Team Status: Active Member Role Status Dates Dr. Olivier Acosta MD Primary Care Provider Active Facundo Donohue MD Emergency Provider Active Dr. Prabhakar Murry MD Admit Provider, Other Provide r Active Dr. Mahamed Tipton MD Attending Provider, Other Provi viv Active Dr. Penny Ellis MD Other Provider Active Dr. Emmanuel Hidalgo DO Other Provider Active Team Status: Active Member Role Status Dates Dr. Olivier Acosta MD Primary Care Provider Active Facundo Donohue MD Emergency Provider Active Dr. Prabhakar Murry MD Admit Provider, Other Provide r Active Dr. Mahamed Tipton MD Other Provider Active Dr. Penny Ellis MD Attending Provider, Other Provid er Active Dr. Emmanuel Hdialgo DO Other Provider Active Team Status: Active Member Role Status Dates Dr. Olivier Acosta MD Primary Care Provider Active Dr. Devyn Meyers DO Emergency Provider Active Dr. Penny Ellis MD Admit Provider, At tending Provider, Other Provider Active Team Status: Active Member Role Status Dates Dr. Olivier Acosta MD Primary Care Provider Active Dr. Devyn Meyers DO Emergency Provider Active Dr. Penny Ellis MD Admit Provider, At tending Provider, Other Provider Active Dr. Anaid Steele MD Other Provider Active Team Status: Active Member Role Status Dates Dr. Olivier Acosta MD Primary Care Provider Active Dr. Devyn Meyers DO Emergency Provider Active Dr. Penny Ellis MD Admit Provider, Other Provider A ctive Dr. Anaid Steele MD Other Provider Active Dr. Kayode Warren DO Attending Provider Active Team Status: Active Member Role Status Dates Dr. Olivier Acosta MD Primary Care Provider Active Dr. Devyn Meyers DO Emergency Provider Active Dr. Penny Ellis MD Admit Provider, Other Provider A ctive Dr. Anaid Steele MD Other Provider Active Dr. Thee Patton MD Attending Provider, Other Provider Active Team Status: Active Member Role Status Dates Dr. Olivier Acosta MD Primary Care Provider Active Dr. Kayode Warren DO Attending Provider Active Team Status: Inactive Member Role Status Dates Dr. Olivier Acosta MD Primary Care Provider Active Dr. Devyn Meyers DO Attending Provider, Emergency Provider Active Team Status: Inactive Member Role Status Dates Dr. Olivier Acosta MD Primary Care Provider Active Dr. Carito Booth MD Attending Provider, Referring P serg Active Team Status: Inactive Member Role Status Dates Dr. Olivier Acosta MD Primary Care Provider Active Dr. Elizabeth Fuentes MD Attending Provider, Referring Pr radha Active Team Status: Inactive Member Role Status Dates Dr. Olivier Acosta MD Primary Care Provider Active Dr. Lolis Smith , Emergency Provider Active Dr. Isabell Hanson MD Admit Provider, Other Provider Active Dr. Fozia Cervantes DO Attending Provider Active Team Status: Inactive Member Role Status Dates Dr. Olivier Acosta MD Primary Care Provider Active Facundo Donohue MD Emergency Provider Active Dr. Prabhakar Murry MD Admit Provider, Other Provide r Active Dr. Mahamed Tipton MD Other Provider Active Dr. Penny Ellis MD Attending Provider Active Dr. Emmanuel Hidalgo DO Other Provider Active Team Status: Inactive Member Role Status Dates Dr. Olivier Acosta MD Primary Care Provider Active Dr. Devyn Meyers DO Emergency Provider Active Dr. Penny Ellis MD Admit Provider, Other Provider A ctive Dr. Anaid Steele MD Other Provider Active Dr. Thee Patton MD Attending Provider Active Team Status: Active Member Role Status Dates Dr. Olivier Acosta MD Primary Care Provider Active Dr. Devyn Meyers DO Emergency Provider Active Dr. Penny Ellis MD Admit Provider, Other Provider A ctive Dr. Anaid Steele MD Other Provider Active Dr. Thee Patton MD Other Provider Active Dr. Kayode Warren DO Attending Provider Active Team Status: Inactive Member Role Status Dates Dr. Olivier Acosta MD Primary Care Provider Active Dr. Toni Westbrook MD Emergency Provider Active Team Status: Inactive Member Role Status Dates Dr. Olivier Acosta MD Primary Care Provider, Refer ring Provider Active Vero Jordan Attending Provider Active Team Status: Active Member Role Status Dates Dr. Olivier Acosta MD Primary Care Provider Active Dr. Toni Del Valle MD Attending Provider Active Dr. Penny Ellis MD Referring Provider Active Team Status: Active Member Role Status Dates Dr. Olivier Acosta MD Primary Care Provider Active Dr. Paresh Andersen DO Emergency Provider Active Dr. Emmanuel Hidalgo DO Admit Provider, At tending Provider, Other Provider Active Team Status: Inactive Member Role Status Dates Dr. Olivier Acosta MD Primary Care Provider Active Dr. Toni Westbrook MD Attending Provider, Emergency Pr ovider Active Team Status: Active Member Role Status Dates Dr. Olivier Acosta MD Primary Care Provider Active Dr. Elizabeth Fuentes MD Attending Provider, Referring Pr ovider Active Team Status: Active Member Role Status Dates Dr. Olivier Acosta MD Primary Care Provider Active Dr. Paresh Andersen DO Emergency Provider Active Dr. Emmanuel Hidalgo DO Admit Provider, Attending Provid er Active Team Status: Active Member Role Status Dates Dr. Olivier Acosta MD Primary Care Provider Active Dr. Cecile Flower MD Attending Provider Activ e Team Status: Active Member Role Status Dates Dr. Olivier Acosta MD Primary Care Provider Active Dr. Paresh Andersen DO Emergency Provider Active Dr. Emmanuel Hidalgo DO Admit Provider, Other Provider A ctive Dr. Elizabeth Fuentes MD Other Provider Active Dr. Henna Joseph , DO Attending Provider, Other Pro vider Active Team Status: Active Member Role Status Dates Dr. Olivier Acosta MD Primary Care Provider Active Dr. Paresh Andersen DO Emergency Provider Active Dr. Emmanuel Hidalgo DO Admit Provider, Other Provider A ctive Dr. Elizabeth Fuentes MD Other Provider Active Dr. Fozia Cervantes , DO Attending Provider, Other Provide r Active Dr. Henna Joseph , DO Other Provider Active Team Status: Inactive Member Role Status Dates Dr. Olivier Acosta MD Primary Care Provider Active Dr. Paresh Andersen DO Emergency Provider Active Dr. Emmanuel Hidalgo DO Admit Provider, Other Provider A ctive Dr. Elizabeth Fuentes MD Other Provider Active Dr. Fozia Cervantes , DO Attending Provider Active Dr. Henna Joseph , DO Other Provider Active Medical Record Specialist Relationship Specialty Start Date End Date Mimi Estrada PA-C PCP - General Family Medicine 01/19/18 Marcy Maria, MAGNETIC PROSPECTING OPERATOR [address] [place] [address] Referring Neurology 01/19/18 Medical Record Specialist Relationship Specialty Start Date End Date Olivier Acosta MD [address] [place] [phone] PCP - General 06/25/21 Cecilia Campos MD [address] [place] [address] [facility] 05/08/22 Medical Record Specialist Relationship Specialty Start Date End Date Olivier Acosta MD [address] [place] [phone] PCP - General 06/25/21 Cecilia Campos MD [address] [phone] [facility] 05/08/22 Medical Record Specialist Relationship Specialty Start Date End Date Olivier Acosta MD [address] [place] [phone] PCP - General 06/25/21 Cecilia Campos MD [address] [place] [address] [facility] 05/08/22 Medical Record Specialist Relationship Specialty Start Date End Date Olivier Acosta MD [address] [place] [address] [phone] PCP - General 06/25/21 Cecilia Campos MD [address] [place] [address] [facility] 05/08/22 Medical Record Specialist Relationship Specialty Start Date End Date Olivier Acosta MD [address] [place] [id number] PCP - General 06/25/21 Cecilia Campos MD [address] [place] [address] [facility] 05/08/22 Medical Record Specialist Relationship Specialty Start Date End Date Olivier Acosta MD [address] [place] [address] [phone] PCP - General 06/25/21 Cecilia Campos MD [address] [place] [address] [facility] 05/08/22 Team Status: Inactive Member Role Status Dates Dr. Olivier Acosta MD Primary Care Provider Active ARGELIA BARRETO Attending Provider, Referring Provide r Active Medical Record Specialist Relationship Specialty Start Date End Date Mimi Estrada PA-C PCP - General Family Medicine 01/19/18 Marcy Maria CNP [facility] [address] [place], [place] [address] Referring Neurology 01/19/18 Medical Record Specialist Relationship Specialty Start Date End Date Olivier Acosta MD [address] [place] [address] [place] [phone] PCP - General 06/25/21 Ofelia Ramirez RN Registered Nurse Cardiology 07/05/23 Medical Record Specialist Relationship Specialty Start Date End Date Olivier Acosta MD [address] [place] [address] [phone] PCP - General 06/25/21 Allegra Calzada PA-C [address] [place] [address] PCP - CMS Attributed Provider 12/05/21 06/05/22 Radha Hubbard DO [address] [address] [facility] [address] [id number] PCP - CMS Attributed Provider 06/06/22 09/05/22 Cecilia Campos MD [address] [place] [phone] Manager [facility] 05/08/22 07/04/23 Ofelia Ramirez RN Registered Nurse Cardiology 07/05/23 Radha Hubbard DO [address] [facility] [address] [phone] Manager [facility] Cardiac Electrophysiology 08/02/23 Medical Record Specialist Relationship Specialty Start Date End Date Olivier Acosta MD [address] [place] [address] [id number] PCP - General 06/25/21 Ofelia Ramirez RN Registered Nurse Cardiology 07/05/23 Radha Hubbard DO [address] [phone] Manager [facility] Cardiac Electrophysiology 08/02/23 Medical Record Specialist Relationship Specialty Start Date End Date Olivier Acosta MD [address] [place] [address] Road [address] [place] [phone] PCP - General 06/25/21 Day, VIKA Gilbert Registered Nurse Cardiology 07/05/23 Radha Hubbard DO [address] [place] [phone] Manager [facility] Cardiac Electrophysiology 08/02/23 Medical Record Specialist Relationship Specialty Start Date End Date Olivier Acosta MD [address] [place], [place] [phone] PCP - General 06/25/21 Day, VIKA Gilbert Registered Nurse Cardiology 07/05/23 Radha Hubbard DO [address] [facility] [place] [address] Manager [facility] Cardiac Electrophysiology 08/02/23 Medical Record Specialist Relationship Specialty Start Date End Date Olivier Acosta MD [address] [place] [phone] PCP - General 06/25/21 Day, VIKA Gilbert Registered Nurse Cardiology 07/05/23 Radha Hubbard DO [address] [address] [facility] [address] [place] [phone] Manager [facility] Electrophysiology 08/02/23 Team Status: Inactive Member Role Status Dates Dr. Olivier Acosta MD Primary Care Provider Active Vero Jordan Active Dr. Andrae Sterling MD Attending Provider, Referring Pro vider Active Medical Record Specialist Relationship Specialty Start Date End Date Olivier Acosta MD [address] [place] [address] [phone] PCP - General 06/25/21 Day, VIKA Gilbert Registered Nurse Cardiology 07/05/23 Radha Hubbard DO [address] [place] [phone] Manager [facility]iac Electrophysiology 08/02/23 Medical Record Specialist Relationship Specialty Start Date End Date Olivier Acosta MD [address] [place] [address] [phone] PCP - General 06/25/21, VIKA Gilbert Registered Nurse Cardiology 07/05/23 Radha Hubbard DO [address] [place] [phone] Manager [facility] Cardiac Electrophysiology 08/02/23 Name Effective Dates (start - stop) Status Members No Information Medical Record Specialist Relationship Specialty Start Date End Date Olivier Acosta MD [address] [place] [phone] PCP - General 06/25/21 Day, VIKA Gilbert Registered Nurse Cardiology 07/05/23 Radha Hubbard DO [address] [phone] Manager [facility] Cardiac Electrophysiology 08/02/23 Medical Record Specialist Relationship Specialty Start Date End Date Olivier Acosta MD [address] [place] [address] [phone] PCP - General 06/25/21 Day, VIKA Gilbert Registered Nurse Cardiology 07/05/23 Radha Hubbard DO [address] [place] [phone] Manager [facility] Cardiac Electrophysiology 08/02/23 Medical Record Specialist Relationship Specialty Start Date End Date Olivier Acosta MD [address] [place] [phone] PCP - General 06/25/21 Day, VIKA Gilbert Registered Nurse Cardiology 07/05/23 Radha Hubbard DO [address] [place] [phone] Manager [facility] Cardiac Electrophysiology 08/02/23 Medical Record Specialist Relationship Specialty Start Date End Date Olivier Acosta MD [address] [place] [id number] PCP - General 06/25/21 Day, VIKA Gilbert Registered Nurse Cardiology 07/05/23 Radha Hubbard DO [address] [place] [phone] Manager [facility] Cardiac Electrophysiology 08/02/23 Team Status: Inactive Member Role Status Dates Dr. Olivier Acosta MD Primary Care Provider Active Start: November 20, 2024 End: November 20, 2024 Shirlene Morelos GRIEVANCE AND APPEALS SPECIALIST, [employer] APPEALS SPECIALIST-C Attending Provider Active Start: November 20, 2024 End: November 20, 2024 Team Status: Inactive Member Role Status Dates Dr. Olivier Acosta MD Primary Care Provider Active Start: December 05, 2024 End: December 05, 2024 Dr. Benjamín Tavarez MD Attending Provider Active Start: December 05, 2024 End: December 05, 2024 Team Status: Inactive Member Role Status Dates Dr. Olivier Acosta MD Primary Care Provider Active Start: January 24, 2025 End: January 24, 2025 Benjamín MCNAIR MD Attending Provider Active Start: January 24, 2025 End: January 24, 2025 <item> Privacy Markings (unrecogniz ed section and content) Section Author: Leidy Briggs PROHIBITION ON REDISCLOSURE OF CONFIDENTIAL INFORMATION This notice accompanies a disclosure of information concerning a client made to you with the consent of such client. Goals (unrecognized section and content) Health Concern Goal Type Priority Status No Information Source Comments (unrecognize d section and content) In the event this informatio n is protected by the Federal Confidentiality of Alcohol and Drug Abuse Patient Records regulations: The Federal rules restrict any use of the information to criminally investigate or prosecute any alcohol or drug abuse patient.[facility] the event this information is protected by the Federal Confidentiality of Alcohol and Drug Abuse Patient Records regulations: The Federal rules restrict any use of the information to criminally investigate or prosecute any alcohol or drug abuse patient.[facility] the event this information is protected by the Federal Confidentiality of Alcohol and Drug Abuse Patient Records regulations: The Federal rules restrict any use of the information to criminally investigate or prosecute any alcohol or drug abuse patient.[facility] the event this information is protected by the Federal Confidentiality of Alcohol and Drug Abuse Patient Records regulations: The Federal rules restrict any use of the information to criminally investigate or prosecute any alcohol or drug abuse patient.[facility] Scheduled Active and Recently Administ ered Medications (unrecognized section and content) Medication Order 05/07/2022 05/08/2022 05/09/2022 cephALEXin (KEFLEX) capsule 250 mg 250 mg, Oral, Every evening, First dose on Wed05/08/22 at 0000, Indication: Other (specify), Indication: UTI Prophylaxis 0000 (Given - Provider: Fozia Valdez RN)2156 (Given - Provider: Neeraj Zuluaga RN) ezetimibe (ZETIA) tablet 10 mg 10 mg, Oral, Daily, First dose on Wed05/08/22 at 0900 0931 (Given - Provider: Latricia Hylton RN) 0903 (Given - Provider: Jessica Kong LPN) insulin glargine (LANTUS) injection 35 Units 35 Units, Subcutaneous, Daily, First dose on Wed05/08/22 at 0900, Do not mix with other insulins in a syringe. Do NOT hold basal insulin without notifying physician" 1307 (Given - Provider: Latricia Hylton RN - Comment: pt npo, went for procedure) 0903 (Given - Provider: Jessica Kong LPN) insulin lispro (AdmeLOG,HumaLOG) injection 8 Units 8 Units, Subcutaneous, 3 times daily before meals, First dose on Wed05/08/22 at 0730 0730 (Not Given - Provider: Cecilia Knox RN - Reason: Order parameters not met - Comment: NPO, Per Dr Kearney hold until diet resumes)1423 (Given - Provider: Latricia Hylton RN)1758 (Given - Provider: Latricia Hylton RN) 0904 (Given - Provider: Jessica Kong LPN)1242 (Given - Provider: Jessica Kong LPN) metoprolol succinate (TOPROL-XL) 24 hr tablet 25 mg 25 mg, Oral, Nightly, First dose on Wed05/07/22 at 2145, DO NOT CRUSH OR CHEW. 2247 (Given - Provider: Fozia Valdez RN) 2156 (Given - Provider: Neeraj Zuluaga RN) pantoprazole (PROTONIX) EC tablet 40 mg 40 mg, Oral, Daily, First dose on Wed05/08/22 at 0900, DO NOT CRUSH OR CHEW. 0937 (Given - Provider: Latricia Hylton RN) 0903 (Given - Provider: Jessica Kong LPN) sodium chloride (PF) (NS) flush 5 mL(Linked Group 1) 5 mL, Intravenous, Every 8 hours scheduled, First dose on Wed05/07/22 at 2200, Saline lock 2200 (Canceled Entry - Provider: Fozia Valdez RN) 0600 (Canceled Entry - Provider: Fozia Valdez RN)1400 (Canceled Entry - Provider: Cecilia Knox RN)2200 (Canceled Entry - Provider: Neeraj Zuluaga RN) 0600 (Canceled Entry - Provider: Neeraj Zuluaga RN)1400 (Canceled Entry - Provider: Jessica Kong LPN) sodium chloride (PF) (NS) flush 5 mL(Linked Group 2) 5 mL, Intravenous, Every 8 hours scheduled, First dose on Wed05/07/22 at 2200, Saline lock 2200 (Given - Provider: Fozia Valdez RN) 0600 (Canceled Entry - Provider: Fozia Valdez RN)1400 (Canceled Entry - Provider: Cecilia Knox RN)2200 (Canceled Entry - Provider: Neeraj Zuluaga RN) 0600 (Canceled Entry - Provider: Neeraj Zuluaga RN)1400 (Canceled Entry - Provider: Jessica Kong LPN) venlafaxine (EFFEXOR-XR) 24 hr capsule 150 mg 150 mg, Oral, Daily, First dose on Wed05/08/22 at 0900, DO NOT CRUSH OR CHEW. 0932 (Given - Provider: Latricia Hylton RN) 0903 (Given - Provider: Jessica Kong LPN) PRN Medication Order 05/07/2022 05/08/2022 05/09/2022 acetaminophen (TYLENOL) tablet 650 mg 650 mg, Oral, Every 6 hours PRN, headaches, Starting on Wed05/08/22 at 0828 0929 (Given - Provider: Latricia Hylton RN)2156 (Given - Provider: Neeraj Zuluaga RN) 0902 (Given - Provider: Jessica Kong LPN) albuterol inhaler 2 puff 2 puff, Inhalation, Every 6 hours PRN (RT), wheezing, Starting on Wed05/07/22 at 2207, SPACER REQUIRED FOR ADMINISTRATION clindamycin (CLEOCIN) IVPB 900 mg (premix) (CANCELED) Administer over 30 Minutes, Intra-op continuous PRN, Starting on Wed05/08/22 at 1051, Intra-Procedure 1051 (New Bag - Provider: Bryant Bradford RN)1118 (Stopped - Provider: Bryant Bradford RN) dicyclomine (BENTYL) capsule 10 mg 10 mg, Oral, Daily PRN, other, Abdominal pain, Starting on Wed05/07/22 at 2139 fentaNYL (SUBLIMAZE) injection (CANCELED) As needed, Starting on Wed05/08/22 at 1102, Intra-Procedure 1102 (Given - Provider: Poornima Johnson RN)1107 (Given - Provider: Poornima Johnson, VIKA)1152 (Given - Provider: Poornima Johnson RN) ibuprofen (ADVIL,MOTRIN) tablet 600 mg 600 mg, Oral, Every 8 hours PRN, mild pain, Starting on Wed05/08/22 at 1244, For 24 hours, Give with Food Do Not Crush or Chew if administering orally due to bitter taste. May be crushed if given via tube. 1419 (Given - Provider: Latricia Hylton, VIKA) iopamidoL (ISOVUE-300) 61 % injection (CANCELED) As needed, Starting on Wed05/08/22 at 1046, Intra-Procedure 1046 (Given - Provider: Radha Hubbard, ) lidocaine 20 mg/mL (2 %) injection (CANCELED) As needed, Starting on Wed05/08/22 at 1102, Intra-Procedure 1102 (Given - Provider: Radha Hubbard, - Comment: Left Chest.)1130 (Given - Provider: Radha Hubbard, - Comment: Left chest.)1153 (Given - Provider: Radha Hubbard, - Comment: Left chest.) midazolam (VERSED) injection (CANCELED) As needed, Starting on Wed05/08/22 at 1102, Intra-Procedure 1102 (Given - Provider: Poornima Johnson RN) naloxone (NARCAN) injection 0.1 mg(Linked Group 3) 0.1 mg, Intravenous, As needed, opioid reversal, For respiratory rate less than or equal to 8 per minute., Starting on Darleen 05/07/22 at 2140, Mix nalOXone (NARCAN) 0.4 mg (1mL) with 9 mL of Normal Saline to total 10 mL. Administer 0.1 mg (2.5mL) IV Push every 2 minutes until respiratory rate is 10 or greater. naloxone (NARCAN) injection 0.4 mg(Linked Group 3) 0.4 mg, Intravenous, As needed, opioid reversal, patient is pulseless, breathless, and unresponsive, Starting on Darleen 05/07/22 at 2140, Call a code first, then administer naloxone dose undiluted IV Push over 30 seconds. ondansetron (ZOFRAN) injection 4 mg 4 mg, Intravenous, Every 6 hours PRN, nausea, Starting on Wed05/08/22 at 1244 oxyCODONE-acetaminophen (PERCOCET) 5-325 mg per tablet 1 tablet 1 tablet, Oral, Every 6 hours PRN, moderate to severe pain, Starting on Wed05/07/22 at 2140 perflutren lipid microspheres (DEFINITY) 0.143 mg/mL solution 0-10 mL of mixture 0-10 mL of mixture, Intravenous, Once in imaging, contrast, IF suboptimal echo, Starting on Wed05/08/22 at 0758, For 48 hours, Prepare syringe by withdrawing 1.3 mL of perflutren (DEFINITY) from the 2ml vial. Further dilute the 1.3 mL of perflutren with Sodium Chloride (NS) 0.9% to total volume of 10 ml. Chart total "ML OF MIXTURE" given to patient. 0844 (Given - Provider: Chiki Rodriguez RN) sodium chloride (PF) (NS) flush 5 mL(Linked Group 4) 5 mL, Intravenous, As needed, line care, Starting on Wed05/07/22 at 1422 sodium chloride (PF) (NS) flush 5 mL(Linked Group 1) 5 mL, Intravenous, As needed, line care, Starting on Wed05/07/22 at 2135 sodium chloride (PF) (NS) flush 5 mL(Linked Group 2) 5 mL, Intravenous, As needed, line care, Starting on Wed05/07/22 at 2144 sodium chloride 0.9% (NS)(Linked Group 4) 0-150 mL/hr, Intravenous, As needed, To flush line after IV infusions when no maintenance IV ordered or a compatibility issue. Infuse 20ml at the same rate as the secondary infusion, Starting on Wed05/07/22 at 1422, Run as Primary IV. NOT intended for KVO. sodium chloride 0.9% (NS)(Linked Group 1) 0-150 mL/hr, Intravenous, As needed, To flush line after IV infusions when no maintenance IV ordered or a compatibility issue. Infuse 20ml at the same rate as the secondary infusion, Starting on Wed05/07/22 at 2135, Run as Primary IV. NOT intended for KVO. sodium chloride 0.9% (NS)(Linked Group 2) 0-150 mL/hr, Intravenous, As needed, To flush line after IV infusions when no maintenance IV ordered or a compatibility issue. Infuse 20ml at the same rate as the secondary infusion, Starting on Wed05/07/22 at 2144, Run as Primary IV. NOT intended for KVO. Linked Groups Order Group 1: Saline lock IV (CANCELED) Routine, Continuous, Starting on Darleen 05/07/22 at 2140, Until Specified And sodium chloride (PF) (NS) flush 5 mLJump to med 5 mL, Intravenous, As needed, line care, Starting on Darleen 05/07/22 at 2135 And sodium chloride (PF) (NS) flush 5 mLJump to med 5 mL, Intravenous, Every 8 hours scheduled, First dose on Darleen 05/07/22 at 2200
Saline lock
And sodium chloride 0.9% (NS)Jump to med 0-150 mL/hr, Intravenous, As needed, To flush line after IV infusions when no maintenance IV ordered or a compatibility issue. Infuse 20ml at the same rate as the secondary infusion, Starting on Wed05/07/22 at 2135
Run as Primary IV. NOT intended for KVO.
Group 2: Saline lock IV (CANCELED) Routine, Continuous, Starting on Darleen 05/07/22 at 2145, Until Specified And sodium chloride (PF) (NS) flush 5 mLJump to med 5 mL, Intravenous, As needed, line care, Starting on Darleen 05/07/22 at 2144 And sodium chloride 0.9% (NS)Jump to med 0-150 mL/hr, Intravenous, As needed, To flush line after IV infusions when no maintenance IV ordered or a compatibility issue. Infuse 20ml at the same rate as the secondary infusion, Starting on Wed05/07/22 at 2144
Run as Primary IV. NOT intended for KVO.
Group 3: naloxone (NARCAN) injection 0.1 mgJump to med 0.1 mg, Intravenous, As needed, opioid reversal, For respiratory rate less than or equal to 8 per minute., Starting on Wed05/07/22 at 2140
Mix nalOXone (NARCAN) 0.4 mg (1mL) with 9 mL of Normal Saline to total 10 mL. Administer 0.1 mg (2.5mL) IV Push every 2 minutes until respiratory rate is 10 or greater.
And Notify physician (CANCELED) STAT, Until discontinued, Starting on Wed22 at 2145, Until Specified
Respiratory rate less than: 8
For respiratory rate less than or equal to 8, notify physician and/or appropriate staff for additional orders. And naloxone (NARCAN) injection 0.4 mgJump to med 0.4 mg, Intravenous, As needed, opioid reversal, patient is pulseless, breathless, and unresponsive, Starting on Darleen 05/07/22 at 2140
Call a code first, then administer naloxone dose undiluted IV Push over 30 seconds.
Group 4: Insert peripheral IV (COMPLETED) MAC, Once, On Darleen 05/07/22 at 1425, For 1 occurrence And Saline lock IV (CANCELED) MAC, Once, On Darleen 05/07/22 at 1425, For 1 occurrence And sodium chloride (PF) (NS) flush 5 mLJump to med 5 mL, Intravenous, As needed, line care, Starting on Darleen 05/07/22 at 1422 And sodium chloride 0.9% (NS)Jump to med 0-150 mL/hr, Intravenous, As needed, To flush line after IV infusions when no maintenance IV ordered or a compatibility issue. Infuse 20ml at the same rate as the secondary infusion, Starting on Darleen 05/07/22 at 1422
Run as Primary IV. NOT intended for KVO.
Scheduled Medication Order 12/15/2023 12/16/2023 12/17/2023 enoxaparin (LOVENOX) syringe 40 mg 40 mg, Subcutaneous, Daily, First dose on Wed12/11/23 at 0900, Administer in abdomen unless otherwise directed by prescriber. Notify physician if patient refuses., Indication: VTE Prophylaxis 0920 (Given - Provider: Jessica Priest RN) 0940 (Given - Provider: Henna Wall, VIKA) 0850 (Given - Provider: Gisele Velasquez, VIKA) fludrocortisone (FLORINEF) tablet 0.1 mg 0.1 mg, Oral, Daily, First dose on 12/14/23 at 1700 0918 (Given - Provider: Jessica Priest RN) 0940 (Given - Provider: Henna Wall RN) 0850 (Given - Provider: Gisele Velasquez, VIKA) insulin glargine (LANTUS) injection 30 Units 30 Units, Subcutaneous, Nightly, First dose on Wed12/10/23 at 2100, If patient NPO and BG LESS than 100 before procedure, administer half (rounded up to nearest unit) of the glargine insulin (LANTUS) dose; if BG is GREATER than 100, administer the full dose unless otherwise instructed by ordering physician Do not mix with other insulins in a syringe. "Do NOT hold basal insulin without notifying physician" 2118 (Given - Provider: Helen Giles LPN) 2139 (Given - Provider: Cherie Farooq LPN) insulin lispro (AdmeLOG,HumaLOG) injection 0-15 Units(Linked Group 1) 0-15 Units, Subcutaneous, At bedtime, First dose on Wed12/10/23 at 2100, IF initial POC glucose is greater than 250, administer insulin as directed and re-check POC glucose no sooner than 2 hours after administration. THEN notify provider if POC glucose is still greater than 250., For nightly BG greater than 250, give: Half ( ) Corrective Scale, Nightly Prandial Snack Dosing Method: NO Snack Coverage - Corrective Scale ONLY, Nightly Insulin Dose Corrective Scale: FOLLOW DAYTIME Prandial Corrective Scale, Corrective Insulin Regimen (select desired scale to cover BG result): USUAL Sensitivity Scale, (REMINDER: Nightly Insulin Dose Corrective Scale will be automatically calculated to be of the daytime scale), Dose Reduction Threshold (at meals) for POC Blood Glucose less than or equal to: 80, For Downtime Calculator, use: "Insulin SC NIGHTtime" 2118 (Given - Provider: Helen Giles LPN) 2140 (Given - Provider: Cherie Farooq LPN) insulin lispro (AdmeLOG,HumaLOG) injection 0-30 Units 0-30 Units, Subcutaneous, 3 times daily before meals, First dose on Wed12/10/23 at 1705, * Dose should be given EITHER: No sooner than 10-15 minutes BEFORE a meal ("Specific Prandial Doses" or "NO Prandial Dose - Corrective Scale ONLY") - OR - Immediately AFTER meal completed ("Carb Counting Ratio"), Prandial Insulin Dosing Method: NO Prandial Dose - Corrective Scale ONLY, Corrective Insulin Regimen (select desired scale to cover BG result): USUAL Sensitivity Scale, Dose Reduction Threshold (at meals) for POC Blood Glucose less than or equal to: 80, For Downtime Calculator, use: "Insulin SC MEALtime PREprandial" 0919 (Given - Provider: Jessica Priest RN)1300 (Given - Provider: Jessica Priest RN)1630 (Not Given - Provider: Jessica Priest RN - Reason: Patient/family refused) 0730 (Not Given - Provider: Henna Wall RN - Reason: Order parameters not met)1227 (Given - Provider: Henna Wall RN)1630 (Not Given - Provider: Henna Wall RN - Reason: Patient/family refused) 0849 (Given - Provider: Gisele Velasquez RN)1153 (Given - Provider: Gisele Velasquez RN) meclizine (ANTIVERT) tablet 25 mg 25 mg, Oral, Every 6 hours scheduled, First dose on Wed12/11/23 at 1200 0552 (Given - Provider: Natalia Altman RN)1259 (Given - Provider: Jessica Priest RN)1821 (Given - Provider: Jessica Priest RN)2306 (Given - Provider: Helen Giles LPN) 0537 (Given - Provider: Helen Giles LPN)1227 (Given - Provider: Henna Wall RN)1818 (Given - Provider: Henna Wall RN) 0038 (Given - Provider: Cherie Farooq LPN)0537 (Given - Provider: Cherie Farooq LPN)1200 (Due) midodrine (PROAMATINE) tablet 5 mg 5 mg, Oral, 3 times daily, First dose (after last modification) on Wed12/14/23 at 1700 0918 (Given - Provider: Jessica Priest RN)1259 (Given - Provider: Jessica Priest RN)1821 (Given - Provider: Jessica Priest RN) 0940 (Given - Provider: Henna Wall RN)1227 (Given - Provider: Henna Wall RN)1818 (Given - Provider: Henna Wall RN) 0850 (Given - Provider: Gisele Velasquez, VIKA)1200 (Due) senna-docusate (SENNA-S) 8.6-50 mg per tablet 1 tablet 1 tablet, Oral, 2 times daily, First dose on Wed12/13/23 at 2130, Hold for loose stools Do Not Crush or Chew if administering orally due to bitter taste. May be crushed if given via tube. 0918 (Given - Provider: Jessica Priest RN)2119 (Given - Provider: Helen Giles LPN) 0940 (Given - Provider: Henna Wall RN)2140 (Given - Provider: Cherie Farooq LPN) 0900 (Hold - Provider: Gisele Velasquez RN - Reason: Other - Comment: Per pt report she having loose BMs) sodium chloride (PF) (NS) flush 5 mL(Linked Group 2) 5 mL, Intravenous, Every 8 hours scheduled, First dose on Wed12/10/23 at 1700, Saline lock 0553 (Given - Provider: Natalia Altman RN)1301 (Given - Provider: Jessica Priest RN)2200 (Canceled Entry - Provider: Helen Giles LPN) 0600 (Canceled Entry - Provider: Helen Giles LPN)1400 (Not Given - Provider: Henna Wall RN - Reason: Contraindicated)2140 (Given - Provider: Cherie Farooq LPN) 0537 (Given - Provider: Cherie Farooq LPN) venlafaxine (EFFEXOR-XR) 24 hr capsule 150 mg 150 mg, Oral, Daily, First dose on Wed12/11/23 at 0900, DO NOT CRUSH OR CHEW. 0919 (Given - Provider: Jessica Priest RN) 0939 (Given - Provider: Henna Wall RN) 0850 (Given - Provider: Gisele Velasquez RN) PRN Medication Order 12/15/2023 12/16/2023 12/17/2023 acetaminophen (TYLENOL) tablet 650 mg 650 mg, Oral, Every 4 hours PRN, mild pain, fever 100.4 F or greater, headaches, Starting on Wed12/10/23 at 1659 bisacodyL (DULCOLAX) suppository 10 mg 10 mg, Rectal, Daily PRN, constipation, Starting on Wed12/13/23 at 2024 magnesium hydroxide (MOM) 400 mg/5 mL suspension 2,400 mg 2,400 mg (30 mL), Oral, Daily PRN, constipation, Starting on Wed12/13/23 at 2024 ondansetron (ZOFRAN) injection 4 mg(Linked Group 3) 4 mg, Intravenous, Every 6 hours PRN, nausea, vomiting, Starting on Wed12/10/23 at 165, Use oral route first, if tolerated. ondansetron (ZOFRAN-ODT) disintegrating tablet 4 mg(Linked Group 3) 4 mg, Oral, Every 6 hours PRN, nausea, vomiting, Starting on Wed12/10/23 at 1658, Use oral route first, if tolerated. Formulation requires tablet remain in sealed package until immediately prior to dose being administered. sodium chloride (PF) (NS) flush 5 mL(Linked Group 4) 5 mL, Intravenous, As needed, line care, Starting on Wed12/10/23 at 1340 sodium chloride (PF) (NS) flush 5 mL(Linked Group 2) 5 mL, Intravenous, As needed, line care, Starting on Wed12/10/23 at 1659 sodium chloride 0.9% (NS)(Linked Group 4) 0-150 mL/hr, Intravenous, As needed, To flush line after IV infusions when no maintenance IV ordered or a compatibility issue. Infuse 20ml at the same rate as the secondary infusion, Starting on Wed12/10/23 at 1340, Run as Primary IV. NOT intended for KVO. sodium chloride 0.9% (NS)(Linked Group 2) 0-150 mL/hr, Intravenous, As needed, To flush line after IV infusions when no maintenance IV ordered or a compatibility issue. Infuse 20ml at the same rate as the secondary infusion, Starting on Wed12/10/23 at 165, Run as Primary IV. NOT intended for KVO. traZODone (DESYREL) tablet 50 mg 50 mg, Oral, Nightly PRN, sleep, Starting on Wed12/10/23 at 165, May repeat times 1 in 30 minutes if still awake. Linked Groups Order Group 1: insulin lispro (AdmeLOG,HumaLOG) injection 0-15 UnitsJump to med 0-15 Units, Subcutaneous, At bedtime, First dose on Wed12/10/23 at 2100, IF initial POC glucose is greater than 250, administer insulin as directed and re-check POC glucose no sooner than 2 hours after administration. THEN notify provider if POC glucose is still greater than 250., For nightly BG greater than 250, give: Half ( ) Corrective Scale, Nightly Prandial Snack Dosing Method: NO Snack Coverage - Corrective Scale ONLY, Nightly Insulin Dose Corrective Scale: FOLLOW DAYTIME Prandial Corrective Scale, Corrective Insulin Regimen (select desired scale to cover BG result): USUAL Sensitivity Scale, (REMINDER: Nightly Insulin Dose Corrective Scale will be automatically calculated to be of the daytime scale), Dose Reduction Threshold (at meals) for POC Blood Glucose less than or equal to: 80, For Downtime Calculator, use: "Insulin SC NIGHTtime" And Notify physician (CANCELED) Routine, Until discontinued, Starting on Wed12/10/23 at 1701, Until Specified, Other: IF HS POC Glucose RE-CHECK Greater than 250, If initial HS POC glucose is greater than 250, administer insulin as directed and re-check POC glucose no sooner than 2 hours after administration. IF RE-CHECK POC glucose is still greater than 250, notify provider. Group 2: Saline lock IV (CANCELED) Routine, Continuous, Starting on Wed12/10/23 at 1700, Until Specified And sodium chloride (PF) (NS) flush 5 mLJump to med 5 mL, Intravenous, As needed, line care, Starting on Wed12/10/23 at 1659 And sodium chloride (PF) (NS) flush 5 mLJump to med 5 mL, Intravenous, Every 8 hours scheduled, First dose on Wed12/10/23 at 1700, Saline lock And sodium chloride 0.9% (NS)Jump to med 0-150 mL/hr, Intravenous, As needed, To flush line after IV infusions when no maintenance IV ordered or a compatibility issue. Infuse 20ml at the same rate as the secondary infusion, Starting on Wed12/10/23 at 1659, Run as Primary IV. NOT intended for KVO. Group 3: ondansetron (ZOFRAN-ODT) disintegrating tablet 4 mgJump to med 4 mg, Oral, Every 6 hours PRN, nausea, vomiting, Starting on Wed12/10/23 at 1659, Use oral route first, if tolerated. Formulation requires tablet remain in sealed package until immediately prior to dose being administered. Or ondansetron (ZOFRAN) injection 4 mgJump to med 4 mg, Intravenous, Every 6 hours PRN, nausea, vomiting, Starting on Wed12/10/23 at 1659, Use oral route first, if tolerated. Group 4: Insert peripheral IV (COMPLETED) MAC, Once, On Wed12/10/23 at 1341, For 1 occurrence And Saline lock IV (CANCELED) MAC, Once, On Wed12/10/23 at 1341, For 1 occurrence And sodium chloride (PF) (NS) flush 5 mLJump to med 5 mL, Intravenous, As needed, line care, Starting on Wed12/10/23 at 1340 And sodium chloride 0.9% (NS)Jump to med 0-150 mL/hr, Intravenous, As needed, To flush line after IV infusions when no maintenance IV ordered or a compatibility issue. Infuse 20ml at the same rate as the secondary infusion, Starting on Wed12/10/23 at 1340, Run as Primary IV. NOT intended for KVO. FOR RECORDS PERTAINING TO PATIENTS WHO ARE OR HAVE BEEN ENROLLED IN A CHEMICAL DEPENDENCY/SUBSTANCEABUSE PROGRAM, SOME INFORMATION MAY BE OMITTED. This clinical summary was aggregated from multiple sources. Caution should be exercised in using it in the provision of clinical care. This summary normalizes information from multiple sources, and as a consequence, information in this document may materially change the coding, format and clinical context of patient data. In addition, data may be omitted in some cases. CLINICAL DECISIONS SHOULD BE BASED ON THE PRIMARY CLINICAL RECORDS. [employer] [facility]. provides no warranty or guarantee of the accuracy or completeness of information in this document.
[2025-03-21 07:26] LABS: Hematocrit 39.1 % (37-47); Hemoglobin 13.0 g/dL (12.0-15.0); Mean Corp Hgb Conc 33.2 g/dL (32-36); Mean Corpuscular Volume 84.4 fL (81-99); Mean Platelet Vol. 10.2 fl (6.2-12.0); Platelet Count 264 K/mm3 (150-450); RBC Distribution Width CV 13.7 % (11.6-14.6); RBC Distribution Width SD 42.3 fl (35.1-43.9); Red Blood Count 4.63 M/mm3 (4.2-5.4); White Blood Count 13.6 K/mm3 (4.4-11.0)
[2025-03-21 08:17] LABS: AST(SGOT) 17 U/L (<=31); Alanine Aminotransfer ALT/SGPT 11 U/L (<=34); Albumin, Serum 3.5 g/dL (3.4-4.8); Alkaline Phosphatase 108 U/L (35-104); Anion Gap 11 (5-15); BUN 19 mg/dL (4-19); BUN/Creat Ratio 16.5 RATIO (10-20); Calcium,Total 9.9 mg/dL (7.6-11.0); Carbon Dioxide 23.3 mmol/L (21.0-32.0); Chloride 105 mmol/L (98-108); Cholesterol 122 mg/dL (<=200); Globulin 3.7 g/dL (2.2-4.2); Glucose 100 mg/dL (70-99); Low Density Lipoprotein Calc. 57 mg/dL; Potassium 3.8 mmol/L (3.3-5.1); Triglycerides 174 mg/dL; Very Low Density Lipoprotein 35 mg/dL (5-40); Vitamin D,25 Hydroxy 32.0 ng/mL (30-100); cholesterol:hdl ratio screen 4.04
== END ==
LOC: OLS.WHLEAS 05:40
PROVIDERS: PCP Student in an Organized Health Care Education/Training Program; Visit Provider Internal Medicine
DX: I12.9 Hypertensive chronic kidney disease with stage 1 through stage 4 chronic kidney disease, or unspecified chronic kidney disease (principal); N18.9 Chronic kidney disease, unspecified; E11.22 Type 2 diabetes mellitus with diabetic chronic kidney disease; G91.2 (Idiopathic) normal pressure hydrocephalus; J45.909 Unspecified asthma, uncomplicated; J98.4 Other disorders of lung
CPT/HCPCS: 36415; 80053; 80061; 82306; 85027

== ENCOUNTER → 2025-04-19 15:00 | Outpatient (REF) | payer MEDICARE, MEDICAID, SELFPAY ==
[2025-04-20 09:27] LABS: Color, Urine Yellow (Yellow); Glucose, Dipstick Normal (Normal); Ketone-Dipstick Negative (Negative); Leukocyte Esterase-Dipstick 500 /ul (Negative); Nitrite-Dipstick Negative (Negative); Occult Blood-Urine 50 /ul (Negative); Protein-Dipstick 30 mg/dl (Negative); Specific Gravity, Urine 1.020 (1.002-1.030); Urine Bilirubin Dipstick Negative (Negative)
== END ==
LOC: OLS.WHLEAS 15:00
PROVIDERS: PCP Student in an Organized Health Care Education/Training Program; Visit Provider Internal Medicine
DX: R30.0 Dysuria (principal)
CPT/HCPCS: 81002; 87077; 87086; 87088; 87186

== ENCOUNTER → 2025-05-23 05:35 | Outpatient (REF) | payer MEDICARE, MEDICAID, SELFPAY | LOC: OLS.WHLEAS 05:35 | PROVIDERS: PCP Student in an Organized Health Care Education/Training Program; Visit Provider Internal Medicine | DX: G91.2 (Idiopathic) normal pressure hydrocephalus (principal); E11.9 Type 2 diabetes mellitus without complications; J45.909 Unspecified asthma, uncomplicated; J98.4 Other disorders of lung; I12.9 Hypertensive chronic kidney disease with stage 1 through stage 4 chronic kidney disease, or unspecified chronic kidney disease | CPT/HCPCS: 36415; 83036 ==

== ENCOUNTER → 2025-08-22 05:00 | Outpatient (REF) | payer MEDICARE, SELFPAY ==
--- OUTSIDE RECORDS SUMMARY | 2025-08-22 04:36 | XMS RPT_ITS | CCD ---
Author Organization [facility]iniSym[facility] Care Team Providers Care Loan Interviewer Name Role Phone Behzad Mcintyre A Unavailable [phone] Angelina Lopez Unavailable Unavailable Brown, Angelina [...] Care Provider Mimi Estrada Primary Care Provider [phone] Constance Bull Unavailable Unavailable Whitaker II, Behzad Unavailable Unavailable Mimi Estrada Unavailable Unavailable Patience Salcedo Unavailable Unavailable [place] Unavailable Unavailable Mimi Estrada PA-C Primary Care Provider [phone] Mimi Estrada Unavailable Unavailable Unavailable Olivier Acosta MD Primary Care Provider Mimi Estrada Unavailable Dyana Coleman Unavailable Unavailable OLIVIER ACOSTA Primary Care Unavailable THEE RVIERA Attending Unava ilable Mimi Estrada PA-C Primary Care Provider Crow FRAZIER, Marcy S Unavailable Olivier Acosta MD Primary Care Provider Cecilia Campos MD Unavailable Mimi Estrada PA-C Primary Care Provider Marcy Maria CNP Unavailable Dr. Olivier Acosta Primary Care Provider Lenard Dickerson Attending Provider Unavailable Dr. Olivier Acosta Referring Provider ANDRE Huddleston Attending Provider Olivier Acosta MD Primary Care Provider [phone] Cecilia Campos MD Unavailable Dr. Lolis Smith [...] Provider Mimi Estrada PA-C Primary Care Provider [phone] Crow PRODUCTION CELL LEADER, Whiteriver S Unavailable Suzi, MsJacobo Small Attending [facility], Ms. Mimi Sierra Primary Care [facility] Dr. Olivier Pastrana Primary Care Provider Dr. Olivier Acosta Referring Provider Vero Jordan Attending Provider Unavailable Day RN, Ofelia Unavailable Unavailable Cecilia Campos MD Unavailable Allegra Calzada PA-C Unavailable Radha Hubbard DO Unavailable Radha Hubbard DO Unavailable Dr. Oilvier Acosta Primary Care Provider Dr. Andrae Sterling Attending Provider Dr. Andrae Sterling Referring Provider RADHA HUBBARD Attending Unavailable KALISETTI, OLIVIER Primary Care Unavailable [...] Unavailable GREER BENITEZ Attending Unavailable RADHA HUBBARD Attending Unavailable KALISETTI, OLIVIER Referring Unavailable KALISETTI, OLIVIER Primary Care Unavailable KALISETTI, OLIVIER Primary Care Unavailable POORNIMA FERNANDEZ Attending Unavailable KALISETTI, OLIVIER Primary Care Unavailable ELIECER HILL Attending Unavailable KALISETTI, OLIVIER Primary Care Unavailable ELIECER HILL Admitting Unavailable ELIECER HILL Referring Unavailable KALISETTI, OLIVIER Primary Care Unavailable RADHA HUBBARD Attending Unavailable RADHA HUBBARD Referring Unavailable KALISETTI, OLIVIER Primary Care Unavailable RADHA HUBBARD Referring Unavailable RADHA HUBBARD Attending Unavailable KALISETTI, OLIVIER Primary Care Unavailable BROOKLYN LYNN Attending Unavailab le GHINDABROOKLYN Referring Unavailab le KALISETTI, OLIVIER Primary Care Unavailable BROOKLYN LYNN Attending Unavailab le GHINDBROOKLYN Ivy Referring Unavailab le KALISETTI, OLIVIER Primary Care Unavailable RADHA HUBBARD NJacobo Attending Unavailable RADHA HUBBARD NJacobo Referring Unavailable RADHA HUBBARD Attending Unavailable KALISETTI, OLIVIER Primary Care Unavailable RADHA HUBBARD Referring Unavailable RADHA HUBBARD Attending Unavailable KALISETTI, OLIVIER Primary Care Unavailable RADHA HUBBARD Referring Unavailable KALISETTI, OLIVIER Primary Care Unavailable TE STILES Attending Unavailable TAD CASTANO Admitting Unavailable H AND V, OPG Consulting Unavailable PHYSICIANS, [facility] ENDOCRINOLOGY Consulting Un available LEILA BANUELOS Attending Unavailable [facility] Consulting Unavai lable KALISETTI, OLIVIER Primary Care Unavailable THEE CEDILLO Admitting Unavailab le ANA HERNANDEZ Attending Unavailable KALISETTI, OLIVIER Primary Care Unavailable [facility] Consulting Unavai lable LAKISHA BASROM Attending Unavailable KALISETTI, OLIVIER Primary Care Unavailable CALVIN BAKER Admitting Unavailable Shetgeri DO, Vipul Unavailable Unavailab le Shetgeri DO, Vipul Unavailable Unavailab le KIERAN NEY Y. Attending Unavailable KALISETTI, OLIVIER Primary Care Unavailable KALISETTI, OLIVIER Primary Care Unavailable KIERAN, NEY Y. Attending Unavailable KALISETTI, OLIVIER Primary Care [...] ble KALISETTI, OLIVIER Primary Care Unavailable FU, NEY Y. Attending Unavailable KIERAN, NEY Y. Attending Unavailable KALISETTI, OLIVIER Primary Care [...] UNKNOWN Consulting Unavailable PROVIDER, UNKNOWN Consulting Unavailable Dave CAR[place], Dr. Hagan Primary Care Provider Tamy SINGLE ENDING MACHINE OPERATOR-C, Shirlene Attending Provider Daysi CAR[place]INA, Dr. Butts Attending Provider Benjamín Tavarez MD Attending Provider Unavaila ble Dave [place], Dr. Hagan Primary Care Provider Tamy SINGLE ENDING MACHINE OPERATOR-C, Shirlene Attending Provider Tamy SINGLE ENDING MACHINE OPERATOR-C, Shirlene Attending Provider Leobardo CAR[place], Dr. Arzate Attending Provider Dr. Olivier Acosta MD Primary Care Provider Daysi CAROLINA, Dr. Butts Attending Provider Dr. Carito Booth MD Attending Provider Dr. Olivier Acosta MD Primary Care Provider Dr. Olivier Acosta MD Primary Care Physician Leobardo CAROL[place], Dr. Arzate Attending Physician Benjamín Tavarez MD Attending Physician Unavail able Tamy SINGLE ENDING MACHINE OPERATOR-C, Shirlene Attending Physician Dr. Benjamín Tavarez MD Attending Physician Oleghe, Efewongbe Attending Unavailable Kalisetti, Olivier Primary Care Unavailable Tickton SINGLE ENDING MACHINE OPERATOR, Shirlene Attending Unavailable Kalisetti, Olivier Primary Care Unavailable Tickton SINGLE ENDING MACHINE OPERATOR, Shirlene Attending Unavailable Kalisetti, Olivier Primary Care Unavailable Oleghe, Efewongbe Attending Unavailable Kalisetti, Olivier Primary Care Unavailable Oleghe, Efewongbe Attending Unavailable Kalisetti, Olivier Primary Care Unavailable Tickton SINGLE ENDING MACHINE OPERATOR, Shirlene Attending Unavailable Kalisetti, Olivier Primary Care Unavailable Tickton SINGLE ENDING MACHINE OPERATOR, Shirlene Attending Unavailable Kalisetti, Olivier Primary Care Unavailable Oleghe OLS, Efewongbe Attending Unavailabl e Kalisetti, Olivier Primary Care Unavailable Kalisetti, Olivier Primary Care Unavailable Oleghe OLS, Efewongbe Attending Unavailabl e Tickton SINGLE ENDING MACHINE OPERATOR, Shirlene Attending Unavailable Kalisetti, Olivier Primary Care Unavailable T[place]ton SINGLE ENDING MACHINE OPERATOR, Shirlene Attending Unavailable Kalisetti, Olivier Primary Care Unavailable Oleghe OLS, Efewongbe Attending Unavailabl e Kalisetti, Olivier Primary Care Unavailable Oleghe OLS, Efewongbe Attending Unavailabl e Kalisetti, Olivier Primary Care Unavailable Oleghe OLS, Efewongbe Attending Unavailabl e Kalisetti, Olivier Primary Care Unavailable Oleghe OLS, Efewongbe Attending Unavailabl e Kalisetti, Olivier Primary Care Unavailable Tickton SINGLE ENDING MACHINE OPERATOR, Shirlene Attending Unavailable Kalisetti, Olivier Primary Care Unavailable Oleghe, Efewongbe Attending Unavailable Kalisetti, Olivier Primary Care Unavailable Tickton SINGLE ENDING MACHINE OPERATOR, Shirlene Attending Unavailable Kalisetti, Olivier Primary Care Unavailable Oleghe, Efewongbe Attending Unavailable Kalisetti, Olivier Primary Care Unavailable Tickton SINGLE ENDING MACHINE OPERATOR, Shirlene Attending Unavailable Kalisetti, Olivier Primary Care Unavailable Tickton SINGLE ENDING MACHINE OPERATOR, Shirlene Attending Unavailable Kalisetti, Olivier Primary Care Unavailable Oleghe, Efewongbe Attending Unavailable Kalisetti, Olivier Primary Care Unavailable Allergies Allergy Classification Reported Allergen(s) Allergy Type Date of Onset Reaction(s) Facility Opioid Agonists (10 sources) Morphine Drug Allergy 8 Shortness Of Breath [facility] Penicillins (antibiotic) (10 sources) Penicillins Drug Allergy 6 Rash [facility] Sulfonamides (antibiotic) (10 sources) Sulfonamides (Antibiotic) Drug Allergy 6 [facility] (20 sources) morphine; Translations: [morphine] Propensity to adverse reactions to drug 3 Shortness Of Breath, Other: See Comments [facility] (20 sources) Penicillins; Translations: [PENICILLINS] Propensity to adverse reactions to drug 6 [facility] Work Phone: (20 sources) Sulfonamides (Antibiotic); Translations: [SULFA (SULFONAMIDE ANTIBIOTICS)] Propensity to adverse reactions to drug 6 [facility] Work Phone: (2 sources) Penicillin; Translations: [penicillin] Drug Allergy AO, [facility] (2 sources) Sulfonamides (Antibiotic); Translations: [sulfa drugs] Propensity to adverse reactions to drug (disorder) [facility], [facility] (6 sources) Penicillins; Translations: [Penicillins] Allergy to drug (finding) [facility] Work Phone: (6 sources) Sulfonamides (Antibiotic); Translations: [sulfa] Allergy to drug (finding) [facility] kallie [facility] Work Phone: (19 sources) Penicillins Propensity to adverse reactions to drug 6 [facility] (20 sources) Sulfonamides (Antibiotic) Propensity to adverse reactions to drug 6 [facility] (20 sources) Penicillins Propensity to adverse reactions to drug 6 [facility] (1 source) Morphine Drug Allergy [facility] Rep[facility] (1 source) Penicillins Drug allergy (disorder) [facility] (1 source) Sulfonamides (Antibiotic) Drug allergy (disorder) [facility] (2 sources) Penicillins Propensity to adverse reactions to drug 6 [facility] (1 source) Morphine Drug Allergy 3 [facility] (1 source) Penicillins Drug allergy (disorder) 3 [facility] (1 source) Sulfonamides (Antibiotic) Drug allergy (disorder) 3 [facility] Repository Medications Current Medications Medication Drug Class(es) Dates Sig (Normalized) Sig (Original) acetaminophen 325 mg / HYDROcodone bitartrate 5 mg oral tablet (10 sources) Opioid Agonist Start: 10-02-2023 End: 10-05-2023 HYDROcodone-acetami nophen (NORCO) 5-325 mg per tablet Indications: Thoracic compression fracture, closed, initial encounter (HCC) Take 1 (one) tablet by mouth every [...] tablet (1 source) Nonsteroidal Anti-inflammatory Drug Start: End: take 1 tablet by mouth once daily [...] patch calcium ascorbate 500 mg oral tablet (20 sources) Start: 08-03-2022 take 1 tablet by mouth once daily cephalexin 500 mg oral capsule (3 sources) [...] 0 Active take 1 tablet by tess twice daily cetirizine-pseudoePHEDrine (ZyrTEC-D) 5- 120 mg per tablet Take 1 tablet by mouth 2 (two) times a day . 0 Active cholecalciferol 0.05 mg oral capsule (20 sources) Vitamin D Start: 08-31-2022 take 1 capsule by mo uth once daily Start: 08-03-2022 take 50 ug by mouth once daily Cholecalciferol (Vitamin D3) Active 50 MCG PO DAILY August 03, 2022 12:00am take 1 tablet by tess once daily cholecalciferol, vitamin D3, 50 mcg (2,000 unit) Tab Take 1 (one) tablet (2,000 Units total) by mouth nightly . Active clindamycin 150 mg oral capsule (15 sources) Lincosamide Antibacterial Start: 10-08-2022 take 1 capsule by mouth twice daily D-MANNOSE ORAL (4 sources) take 1 capsule by mouth twice daily D-MANNOSE ORAL Take 1 capsule by mouth 2 (two) times a day . 0 Active D-Mannrose (18 sources) Start: 08-03-2022 take 1000 mg by mouth twice daily Start: 08-03-2022 take 1000 mg by mout h twice daily D-Mannrose Active 1000 mg PO TWICE A DAY August 03, 2022 1:00am UTI 1000mg Start: 08-03-2022 take 1000 mg by mout h twice daily D-Mannrose Active 1000 mg PO [...] (20 sources) Proton Pump Inhibitor Start: 08-06-2022 Start: 08-06-2022 take 1 capsule by mo uth once daily Esomeprazole Magnesium Active 40 CAP PO DAILY August 06, 2022 12:00am End: 09-20-2017 take 1 capsule by mouth once daily before breakfast esomeprazole (NEXIUM) 20 MG capsule Take 20 mg by mouth every morning before breakfast. 09/20/2017 Discontinued estradiol 0.1 mg/ml vaginal cream (19 sources) Estrogen Start: 08-31-2022 Start: 08-31-2022 Estradiol Acti ve 1 APPLIC VAGINAL MOWEFR August 31, 2022 12:00am ezetimibe 10 mg oral tablet (20 sources) Dietary Cholesterol Absorption Inhibitor Start: 11-26-2018 End: 05-09-2022 take 1 tablet by mouth once daily Zetia Quantity: 0 Refills: 0 Ordered: 04-Sep-2021 Lacey Pedraza Generic Substitution Allowed 72 hr fentaNYL 0.012 mg/hr t ransdermal system (14 sources) Opioid Agonist Start: 10-12-2022 Start: 10-12-2022 Fentanyl Activ e 12 MCG TD Every 3 Days 1 October 12, 2022 fludrocortisone acetate 0.1 mg oral tablet (20 sources) Start: 10-12-2022 End: 12-17-2023 take 1 tablet by mouth at breakfast Start: 10-12-2022 take 0.4 mg by mouth at breakfast Fludrocortisone Active 0.4 MG PO WITH BREAKFAST 0 October 12, 2022 12:00am 30 actuat fluticasone furoate 0.1 mg/actuat / [...] 75 mg Tab insulin aspart, human 100 un t/ml injectable solution (20 sources) Insulin Analog Start: 10-12-2022 Start: 10-05-2022 NovoLOG U-100 Insulin aspart 100 unit/mL injection Inject under the skin 3 (three) times a day before meals . 0 10/05/2022 Active Start: 10-05-2022 NovoLOG U-100 Insulin aspart 100 unit/mL injection 15 units . 0 10/05/2022 Active Start: 10-01-2022 End: 10-12-2022 Insulin Aspart U-100 (Novolo g U-100 Insulin Aspart) 100 unit/mL solution Discontinued 25 U SC THREE TIMES A DAY 70 0 October 01, 2022 1:00am October 12, 2022 1:01pm Start: 10-01-2022 End: 10-12-2022 NovoLOG U-100 Insulin aspart 100 unit/mL injection Start: 09-30-2022 End: 10-01-2022 Insulin Aspart U-100 (Novolo g Flexpen U-100 Insulin) 100 unit/mL (3 mL) insulin pen Discontinued 25 U SC THREE TIMES A DAY 67.5 0 September 30, 2022 1:00am October 01, 2022 12:49pm Diabetes mellitus Type 2 diabetes mellitus without complications Start: 09-30-2022 End: 10-01-2022 End: 05-09-2022 insulin aspart U-100 (NovoLO G) 100 unit/mL injection Inject under the skin 3 (three) times a day before meals Not taking . 0 05/09/2022 Discontinued (Stop Taking at Discharge) Insulin Glargine-Yfgn (20 sources) Start: 09-18-2022 Start: 09-18-2022 Insulin Glargi ne-Yfgn 100 unit/mL (3 mL) insulin pen Active 40 U SC DAILY September 18, 2022 2:41pm DM Start: 09-18-2022 Insulin Glargi ne-Yfgn 100 unit/mL [...] insulin pen Discontinued 25 U SC DAILY 15 September 14, 2022 6:19pm September 18, 2022 2:41pm Check with primary doctor Start: 09-14-2022 End: 09-18-2022 Insulin Glargine-Yfgn 100 [...] 13, 2022 12:38am September 14, 2022 6:19pm Check with primary doctor Start: 09-12-2022 End: 09-14-2022 Insulin Glargine-Yfgn 100 [...] Insulin Pen Discontinued 42 U SC DAILY 0 September 01, 2022 1:00am September 13, 2022 12:38am Start: 09-01-2022 End: 09-12-2022 Insulin Glargine-Yfgn 100 un it/mL (3 mL) Insulin Pen Discontinued 42 U SC DAILY 0 September 01, 2022 1:00am [...] on above: Take 1 tablet by tess th once daily. With food. metFORMIN hydrochloride 500 mg oral tablet (20 sources) Biguanide Start: 2 End: 2 take 1 tablet by mouth [...] 2022 12:00am metoclopramide 5 mg oral tablet (12 sources) Dopamine-2 Receptor Antagonist Start: 024 take [...] by mouth every twenty-four hours at bedtime Start: 08-06-2022 take 25 mg by mouth [...] by mouth three times daily at mealtime End: 12-10-2023 take 1 tablet by mouth [...] / nitrofurantoin, monohydrate 75 mg oral capsule (20 sources) Nitrofuran Antibacterial Start: 10-02-2023 End: 10-06-2023 [...] 13, 2022 1:00am October 12, 2022 12:57pm UTI Start: 08-31-2022 take 100 mg by mouth twice daily Nitrofurantoin Monohyd/M-Cryst Active 100 MG PO TWICE A DAY August 31, 2022 12:00am Start: 08-14-2022 take 1 capsule by [facility] twice daily nitrofurantoin, macrocrystal-monohydrate, (MACROBID) 100 [...] Active oxyCODONE hydrochloride 5 mg oral tablet (14 sources) Opioid Agonist Start: 10-12-19 23 take 1 tablet by mouth every four hours as needed for pain polyethylene glycol [id number] [id number] mg powder for oral solution (8 sources) Osmotic Laxative polyethylene gl ycol (MIRALAX) 17 gram powder Take 17 (seventeen) g by mouth daily . Active predniSONE 20 mg oral tablet (3 sources) Corticosteroid Start: 09-04-20 21 End: 09-06-19 22 take 1 tablet by [...] this medication.Take with food or milk. probiotic (18 sources) Start: 08-03-2022 Start: 08-03-2022 probiotic Acti ve 1 {tbl} PO DAILY August 03, 2022 1:00am SUPPLEMENT Start: 08-03-2022 probiotic Acti ve 1 {tbl} PO DAILY August 03, 2022 [...] 72 hr scopolamine 0.0139 mg/hr transdermal system (8 sources) Anticholinergic Start: 12-08-2023 scopolamine (TRANSDERM-SCOP) 1 mg over [address] 1 (one) patch on the skin every 72 hours . 12/08/2023 Active sennosides, long term 8.6 mg oral tablet (12 sources) take 1 tablet by mouth once daily senna (SENOKOT) 8.6 mg tablet Take 1 (one) tablet (8.6 mg total) by mouth daily . Active sodium phosphate, dibasic 59.3 mg/ml / sodium phosphate, monobasic 161 mg/ml enema (8 sources) take 1 dose rectal route once [...] (Patient's Request) vibegron (Gemtesa) 75 mg Tab (12 sources) take 1 tablet by tess th [...] Start: 10-12-2022 take 2 tablets by mo [facility] every eight hours Start: 10-12-2022 take 1000 mg by mout [...] hours as needed [facility] as needed for pain and fever acetaminophen (TYLENOL ER) 650 MG CR tablet Take 1 (one) tablet (650 mg total) by mouth every 4 (four) hours as needed for pain or fever . Active take 2 tablets by mo [facility] every eight hours as needed for pain [...] mg tablet Discontinued 1 {tbl} PO .prn 0 May 31, 2019 12:00am August 03, 2022 [...] HMG-CoA Reductase Inhibitor Start: 02-10-20 End: 02-10-20 18 take 1 tablet by mouth once atorvastatin [...] 14 DAYS. bisacodyl 10 mg rectal suppository (9 sources) Stimulant Laxative Start: 12-13-2023 End: 12-17-2023 [...] Comment on above: Take 1,000 mg by tess th one time a week. citalopram 40 mg [...] Daily PRN, other, Abdominal pain, Starting on Darleen 05/07/22 at 2139 docusate sodium 50 mg / sennosides, long term 8.6 mg oral tablet (17 sources) Start: 12-13-2023 End: 12-17-2023 senna-docusate (SENNA-S) 8.6-50 mg per tablet 1 tablet Start: 10-02-2023 End: 11-01-2023 take 1 tablet by mouth once daily senna-docusate (SENNA-S) 8.6-50 mg Take 1 (one) tablet by mouth nightly . 30 tablet 0 10/02/2023 11/01/2023 Active Start: 10-12-2022 Start: 10-12-2022 doxycycline hyclate 100 mg oral [...] 11-21-2018 VITAMIN D2 50, 000 unit capsule fluticasone propionate 0.05 mg/actuat metered dose nasal [...] insulin glargine (LANTUS) injection 30 Units Start: 08-31-2022 End: 09-01-2022 Insulin Glargine (Lantus U-1 00 Insulin) 100 unit/mL solution Discontinued 35 U SC DAILY August 31, 2022 1:00am September 01, 2022 12:41pm BLOOD SUGAR Start: 08-03-2022 Insulin Glargi ne (Lantus U-100 [...] Glargine (Lantus U-100 Insulin) 100 unit/mL solution (15 sources) Start: 08-31-2022 End: 09-01-2022 Insulin Glargine (Lantus U-100 Insulin) 100 unit/mL solution Discontinued 35 U SC DAILY August 31, 2022 1:00am September 01, 2022 12:41pm BLOOD SUGAR Start: 08-31-2022 End: 09-01-2022 Insulin Glargine (Lantus U-1 00 Insulin) 100 unit/mL solution Discontinued 35 U [...] SC THREE TIMES DAILY BEFORE MEALS 67.5 0 September 23, 2022 9:25am September 30, 2022 4:43pm Diabetes mellitus Type 2 diabetes mellitus without complications Start: 09-12-2022 End: 09-23-2022 Insulin Lispro (Humalog Kwik pen Insulin) 100 unit/mL insulin pen Discontinued 22 U SC THREE TIMES DAILY BEFORE MEALS September 13, 2022 12:38am September 23, 2022 9:25am Check with primary doctor Start: 09-01-2022 End: 09-12-2022 Insulin Lispro (Humalog Kwik pen Insulin) 100 unit/mL Insulin Pen Discontinued 20 U SC THREE TIMES DAILY BEFORE MEALS 0 0 September 01, 2022 1:00am September 13, [...] Discontinued Start: 07-25-2015 take 1 capsule by [facility] once daily nitrofurantoin (MACRODANTIN) 50 MG capsule Take 50 mg by mouth daily. 07/25/2015 Active End: 08-13-2022 nitrofurantoin (MACRODANTIN) 25 mg capsule Take 25 mg by mouth. 0 Active Comment on above: Take 25 mg by mouth. nitroglycerin 0.4 mg sublingual tablet (1 source) Nitrate Vasodilator Start: 02-08-2018 End: 02-09-2018 2 ml ondansetron 2 mg/ml injection (14 sources) Serotonin-3 Receptor Antagonist Start: 12-10-2023 End: 12-10-2023 ondansetron (ZOFRAN) injection 4 mg Start: 05-08-2022 End: 05-09-2022 take 4 mg intravenously every six hours as needed for nausea 4 mg, Intravenous, Every 6 hours PRN, nausea, Starting on Wed05/08/22 at 1244 Start: 09-25-2021 take 1 tablet by tess th twice daily as needed for nausea ondansetron (ZOFRAN) 4 mg tablet TAKE 1 TABLET BY MOUTH TWICE DAILY NEEDED. ONLY TAKE IF NEEDED FOR NAUSEA. MAY INTERFERE WITH OTHER MEDICATIONS 0 09/25/2021 Active Comment on above: TAKE 1 TABLET BY TESS TH TWICE DAILY NEEDED. ONLY TAKE IF NEEDED [...] NOT CRUSH OR CHEW. perflutren lipid microspheres (DEFINITY) 0.143 mg/mL solution 0-10 mL of mixture (1 source) Start: 05-08-2022 End: 05-09-2022 perflutren lipid microspheres (DEFINITY) 0.143 mg/mL solution [...] ALOG-40) injection 40 mg Start: 09-15-2021 End: 09-15-2021 triamcinolone acetonide (SHABANA ALOG-40) injection 40 mg [...] Once, 09/20/17 at 1830, For 1 dose, [facility] [id number] Given 09/20/2017 17:33 EST 20 mg Start: 09-20-2017 End: 09-20-2017 triamcinolone acetonide (SHABANA ALOG-40) injection 20 mg 20 mg, Intra-articular, Once, 09/20/17 at 1830, For 1 dose, [facility] [id number] Given 09/20/2017 17:33 EST 20 mg Start: [...] 18, 2022 1:00am October 12, 2022 12:57pm UTI Start: 08-31-2022 take 100 mg by mouth [...] take 1 capsule by mouth once daily Start: 07-15-2021 venlafaxine (E FFEXOR-XR) 150 MG 24 hr capsule Comment on above: Take 150 mg by mouth once daily. 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] Chronic Cardiac dysrhythmias (20 sources) Sick sinus syndrome; Translations: [Sick sinus syndrome] 09-30-2022 Chronic Chronic kidney disease (20 sources) Chronic kidney disease; Translations: [Chronic kidney disease, unspecified] Chronic Chronic kidney disease (1 source) Chronic kidney disease; Translations: [Chronic kidney disease, stage 3 unspecified] Onset: 4 Conduction disorders (20 sources) Cardiac pacemaker in situ; Translations: [Presence of cardiac pacemaker] Onset: 2 02-24-2022 Chronic Diabetes mellitus with complications (2 sources) Type 2 diabetes mellitus with other diabetic ophthalmic complication; Translations: [Type 2 diabetes mellitus with diabetic chronic kidney disease] Onset: 4 Chronic Diabetes mellitus without complication (20 sources) Diabetes mellitus without complication; Translations: [Other specified diabetes mellitus without complications] Onset: 4 Chronic Diabetes mellitus without complication (20 sources) Hyperglycemia; Translations: [Hyperglycemia, unspecified] Onset: 3 Episodic Diseases of white blood cells (20 sources) Leukocytosis; Translations: [Elevated white blood cell count, unspecified] Chronic Disorders of lipid metabolism (20 sources) Hyperlipidemia; Translations: [Mixed hyperlipidemia] Onset: 6 11-06-2015 Chronic Essential hypertension (17 sources) Hypertensive disorder; Translations: [Essential (primary) hypertension] 09-13-2022 Chronic Fluid and electrolyte disorders (20 sources) Dehydration; Translations: [Dehydration] Episodic Fracture of lower limb (8 sources) Closed fracture of tibial plateau; Translations: [Displaced bicondylar fracture of right tibia, subsequent encounter for closed fracture with routine healing] Episodic Genitourinary symptoms and ill-defined conditions (6 sources) Female stress incontinence; Translations: [Stress incontinence, female] Chronic Genitourinary symptoms and ill-defined conditions (8 sources) Nocturia; Translations: [Nocturia] Onset: 4 Episodic Headache, including migraine (20 sources) Migraine without aura; Translations: [Migraine without aura, not intractable, without status migrainosus] Onset: 8 02-09-2018 Chronic Headache; including migraine (1 source) Headache; including migraine; Translations: [Headache, unspecified] Onset: 3 Hypertension with complications and secondary hypertension (2 sources) Hypertensive chronic kidney disease with stage 1 through stage 4 chronic kidney disease, or unspecified chronic kidney disease; Translations: [Hypertensive chronic kidney disease with stage 1 through stage 4 chronic kidney disease, or unspecified chronic kidney disease] Onset: 5 Chronic Immunizations and screening for infectious disease (1 source) Needs influenza immunization; Translations: [Encounter for immunization] Episodic Intestinal obstruction without hernia (17 sources) Intestinal obstruction co-occurrent and due to decreased peristalsis; Translations: [Ileus, unspecified] 09-22-2022 Episodic Joint disorders and dislocations; trauma-related (1 source) Tear of lateral meniscus of knee; Translations: [Tear of lateral meniscus of right knee, unspecified tear type, unspecified whether old or current tear, subsequent encounter] Episodic Malaise and fatigue (20 sources) Asthenia; Translations: [Weakness] Onset: 3 Episodic Nausea and vomiting (20 sources) Vomiting; Translations: [Vomiting, unspecified] Onset: 3 Episodic Nutritional deficiencies (20 sources) Vitamin D deficiency; Translations: [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] Onset: 4 Chronic Occlusion or stenosis of precerebral arteries (20 sources) Right carotid artery stenosis; Translations: [Carotid artery occlusion] Onset: 8 02-08-2018 Chronic Osteoarthritis (20 sources) Osteoarthritis of hip; 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, bilateral] Onset: 9 11-03-2018 Chronic Osteoarthritis (20 sources) Osteoarthritis of right hip joint; Translations: [Osteoarthritis of left hip joint] Onset: 9 11-03-2018 Osteoporosis (20 sources) Primary osteoporosis; Translations: [Senile osteoporosis] Onset: 1 Chronic Other acquired deformities (16 sources) Compression fracture of vertebral column; Translations: [Deforming dorsopathy, unspecified] 09-25-2022 Episodic Other aftercare (1 source) Patient encounter status; Translations: [Encounter for therapeutic drug level monitoring] Episodic Other aftercare (2 sources) Encounter for follow-up examination after completed treatment for conditions other than malignant neoplasm; Translations: [Encounter for follow-up examination after completed treatment for conditions other than malignant neoplasm] Onset: 4 Episodic Other and ill-defined cerebrovascular disease (1 source) Cerebral atherosclerosis; Translations: [Cerebral atherosclerosis] Onset: 4 Chronic Other and ill-defined cerebrovascular disease (1 source) Cerebral ischemia; Translations: [Cerebral ischemia] Onset: 4 Chronic Other and ill-defined heart disease (1 source) Left ventricular cardiac dysfunction; Translations: [Heart disease, unspecified] 12-23-2021 Chronic Other circulatory disease (20 sources) Orthostatic hypotension; Translations: [Orthostatic hypotension] Onset: 8 02-09-2018 Episodic Other connective tissue disease (3 sources) Decreased [...] initial encounter for closed fracture] Onset: 4 Episodic Other gastrointestinal disorders (20 sources) Constipation; Translations: [Constipation, unspecified] 09-22-2022 Episodic Other hematologic conditions (1 source) Raised cardiac enzyme or marker; Translations: [Other specified abnormalities of plasma proteins] Episodic Other hereditary and degenerative nervous system conditions (5 sources) Mild cognitive disorder ; Translations: [Mild cognitive impairment, so stated] Onset: 1 Chronic Other hereditary and degenerative nervous system conditions (20 sources) Mild cognitive impairment, so stated; Translations: [Mild cognitive impairment, so stated] Onset: 1 02-11-2021 Chronic Other hereditary and degenerative nervous system conditions (1 source) Degenerative disease of nervous system, unspecified; Translations: [Degenerative disease of nervous system, unspecified] Onset: 4 Chronic Other injuries and conditions due to external causes (15 sources) H/O: vertebral fracture; Translations: [Personal history [...] abnormal finding of lung field] Episodic Other lower respiratory disease (2 sources) Other disorders of lung; Translations: [Other disorders of lung] Onset: 5 Episodic Other nervous system disorders (2 sources) Normal pressure hydrocephalus; Translations: [(Idiopathic) normal pressure hydrocephalus] 12-02-2023 Chronic Other nervous system disorders (4 sources) (Idiopathic) normal pressure hydrocephalus; Translations: [(Idiopathic) normal pressure hydrocephalus] Onset: 4 Chronic Other nervous system disorders (1 source) Hydrocephalus, unspecified; Translations: [Hydrocephalus, unspecified] Onset: 4 Chronic Other nervous system disorders (6 sources) [...] Obese class I; Translations: [Obesity, unspecified] Onset: 2 03-30-2022 Chronic Other nutritional; endocrine; and metabolic disorders (20 sources) Obesity; Translations: [Obesity, unspecified] 08-06-2022 Chronic Other nutritional; endocrine; and metabolic disorders (8 sources) Obesity, unspecified; Translations: [Obesity, unspecified] Chronic Other screening for suspected conditions (not mental disorders or infectious disease) (20 sources) Electrocardiogram abnormal; Translations: [Abnormal electrocardiogram [ECG] [EKG]] Onset: 3 08-09-2019 Episodic Other upper respiratory infections (2 sources) Acute sinusitis; Translations: [Acute sinusitis, unspecified] 09-04-2021 Episodic Paralysis (3 sources) Hemiplegia, unspecified affecting left nondominant side; Translations: [Hemiplegia, unspecified affecting left nondominant side] Onset: 3 Chronic Residual codes; unclassified (2 sources) Obstructive sleep apnea syndrome; Translations: [YVONNE (obstructive sleep apnea)] Chronic Residual codes; unclassified (1 source) Sleep apnea; Translations: [Sleep apnea, unspecified type] Chronic Residual codes; unclassified (17 sources) H/O Spinal surgery; Translations: [Other specified postprocedural states] 10-08-2022 Episodic Spondylosis; intervertebral disc disorders; other back problems (20 sources) Spinal stenosis; Translations: [Spinal stenosis, site unspecified] Onset: 3 09-25-2022 Episodic Sprains and strains (2 sources) Sprain of lateral collateral ligament of knee; Translations: [Sprain of lateral collateral ligament of right knee, initial encounter] Episodic Syncope (20 sources) Syncope; Translations: [Syncope and collapse] Onset: 2 Episodic Transient cerebral ischemia (20 sources) Transient cerebral ischemia; Translations: [Transient cerebral ischemic attack, unspecified] Onset: 6 11-06-2015 Chronic Unclassified (1 source) Closed fracture of right tibial plateau; Translations: [Closed fracture of right tibial plateau, initial encounter] Unclassified (2 sources) SINUS WHEEZING 09-04-2021 Comment on above: SINUS WHEEZING Urinary tract infections (20 sources) Recurrent urinary tract infection; Translations: [Urinary tract infection, site not specified] Onset: Episodic Past or Other Problems Problem Classification Problem Date Documented Da te Episodic/Chronic Acute and unspecified renal failure (17 sources) Acute injury of kidney; Translations: [Acute kidney failure, unspecified] Onset: 07-05-2023 07-05-2023 Episodic Allergic reactions (3 sources) Allergy status to sulfonamides status; Translations: [Allergy status to penicillin] Onset: 11-17-2023 Episodic Blindness and vision defects (11 sources) Eye / vision finding; Translations: [Unspecified visual disturbance] Onset: 09-30-2023 09-30-2023 Episodic Cardiac dysrhythmias (20 sources) Tachycardia; Translations: [Tachycardia, unspecified] Onset: 08-09-2019 08-09-2019 Episodic Complication of device; implant or graft (20 sources) Complication associated with cardiac pacemaker lead; Translations: [Unspecified complication of cardiac and vascular prosthetic device, implant and graft, initial encounter] Onset: 05-08-2022 Episodic Conditions associated with dizziness or vertigo (20 sources) Dizziness; Translations: [Dizziness and giddiness] Onset: 10-07-2015 10-07-2015 Episodic E Codes: Fall (14 sources) Fall; Translations: [Unspecified fall, initial encounter] Onset: 09-30-2023 09-30-2023 Episodic Mood disorders (3 sources) Mood disorders Onset: 10-02-2023 10-02-2023 Other acquired deformities (20 sources) Mallet finger; Translations: [Mallet finger of left finger(s)] Onset: 12-01-2018 12-01-2018 Episodic Other aftercare (1 source) manager lean (current) use of insulin; Translations: [manager lean (current) use of insulin] Onset: 11-17-2023 Episodic Other aftercare (1 source) Other chief of internal medicine (current) drug therapy; Translations: [Other prison (current) drug therapy] Onset: 11-17-2023 Episodic Other circulatory disease (4 sources) Orthostatic hypotension; Translations: [Orthostatic hypotension] Onset: 02-09-2018 10-12-2022 Episodic Other circulatory disease (4 sources) Personal history of transient ischemic attack (TIA), and cerebral infarction without residual deficits; Translations: [Prsnl hx of TIA (TIA), and cereb infrc w/o resid deficits] Onset: 12-08-2022 Episodic Other connective tissue disease (2 sources) Other muscle spasm; Translations: [Other muscle spasm] Onset: 08-17-2023 Episodic Other connective tissue disease (4 sources) Pain in left lower leg; Translations: [Pain in left lower leg] Onset: 05-28-2023 Episodic Other fractures (17 sources) Closed fracture lumbar vertebra, wedge ; Translations: [Wedge compression fracture of unspecified lumbar vertebra, subsequent encounter for fracture with delayed healing] Onset: 07-19-2023 07-19-2023 Episodic Other fractures (15 sources) Compression fracture of L2; Translations: [Wedge compression fracture of second lumbar vertebra, initial encounter for closed fracture] Onset: 07-05-2023 07-05-2023 Episodic Other fractures (11 sources) Fracture of seventh thoracic vertebra; Translations: [Unspecified fracture of T7-T8 vertebra, initial encounter for closed fracture] Onset: 09-30-2023 09-30-2023 Episodic Other fractures (11 sources) Compression fracture of thoracic spine; Translations: [Wedge compression fracture of unspecified thoracic vertebra, initial encounter for closed fracture] Onset: 09-30-2023 Resolved: 10-01-2023 10-01-2023 Episodic Other fractures (2 sources) Wedge compression fracture of unspecified thoracic vertebra, subsequent encounter for fracture with routine healing; Translations: [Wedge compression fracture of unspecified thoracic vertebra, subsequent encounter for fracture with routine healing] Onset: 08-17-2023 Episodic Other fractures (2 sources) Wedge compression fracture of unspecified lumbar vertebra, subsequent encounter for fracture with delayed healing; Translations: [Wedge compression fracture of unspecified lumbar vertebra, subsequent encounter for fracture with delayed healing] Onset: 07-19-2023 Episodic Other fractures (2 sources) Wedge compression fracture of second lumbar vertebra, initial encounter for closed fracture; Translations: [Wedge compression fracture of second lumbar vertebra, initial encounter for closed fracture] Onset: 07-05-2023 Episodic Other fractures (2 sources) Wedge compression fracture of fourth lumbar vertebra, initial encounter for closed fracture; Translations: [Wedge compression fracture of fourth lumbar vertebra, initial encounter for closed fracture] Onset: 07-05-2023 Episodic Other gastrointestinal disorders (2 sources) Diarrhea, unspecified; Translations: [Diarrhea, unspecified] Onset: 11-07-2023 Episodic Other injuries and conditions due to external causes (11 sources) Abrasion; Translations: [Other injury of unspecified body region, initial encounter] Onset: 10-01-2023 10-01-2023 Episodic Other lower respiratory disease (20 sources) Dyspnea on exertion; Translations: [Other forms of dyspnea] Onset: 08-09-2019 08-09-2019 Episodic Other nervous system disorders (20 sources) 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; 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] Onset: 02-11-2021 Episodic Other nutritional; endocrine; and metabolic disorders (10 sources) H/O: diabetes mellitus; Translations: [Personal history of other endocrine, metabolic, and immunity disorders] Onset: 04-09-2021 04-09-2021 Episodic Other skin disorders (4 sources) Breast changes; Translations: [Changes in skin texture] Onset: 01-26-2013 01-26-2013 Episodic Pathological fracture (5 sources) Primary osteoporosis; Translations: [Age-related osteoporosis with current pathological fracture, unspecified site, subsequent encounter for fracture with routine healing] Onset: 01-06-2021 Episodic Residual codes; unclassified (7 sources) Other specified postprocedural states; Translations: [Other postprocedural status] Onset: 07-05-2023 10-08-2022 Episodic Residual codes; unclassified (2 sources) Pain, unspecified; Translations: [Pain, unspecified] Onset: 05-04-2023 Episodic Residual codes; unclassified (1 source) Acquired absence of other specified parts of digestive tract; Translations: [Acquired absence of other specified parts of digestive tract] Onset: 11-17-2023 Episodic Residual codes; unclassified (1 source) Acquired absence of other genital organ(s); Translations: [Acquired absence of other genital organ(s)] Onset: 11-17-2023 Episodic Unclassified (20 sources) Echocardiogram abnormal; Translations: [Abnormal findings on diagnostic imaging of heart and coronary circulation] Onset: 10-07-2015 10-07-2015 Episodic NEGATED: Highlighted row has not occurred!Residual codes; unclassified (20 sources) Disease Episodic Results Test Name Value Interpretation Reference Range Facility Hemoglobin A1c percentageOrd ered By: Remilita Tavarez on 05-23-2025 HbA1c (Bld) [Mass fraction] 8.2 % High <5.7 [facility] Comment on above: Normal < 5.7 % Predi abetic 5.7 - 6.4 % Diabetic >or= 6.5 % Please note range changes. CARDIAC REMOTE DEVICE CHECKo n 05-11-2025 04/25/2025 Remote Interrogation of Pacemaker Notes/Summary: Stable Device function Est. Battery: 6.5 years Presenting EGM: SR 80s [employer]: 0% AT/AF [place]: <1% since 08/10/2023 AHR: 1<1 minute in duration - paroxysmal AFL VHR: 1 - review of egm shows 11 beats 1:1 AV tachycardia at 170 bpm Histograms: Appropriate rate distribution 60 bpm to 120 bpm Next remote: 07/25/2025, Next In-clinic: 08/07/2025 Signature: Faith STEWART RN I have reviewed the device function, programmed parameters, and heart rhythm. Patient will return to the Device Clinic &/or remote follow up and provider visit per protocol. Ney Smith MD - 05/11/2025 04/25/2025 Remote Interrogation of Pacemaker Notes/Summary: Stable Device function Est. Battery: 6.5 years Presenting EGM: SR 80s [employer]: 0% AT/AF [place]: <1% since 08/10/2023 AHR: 1<1 minute in duration - paroxysmal AFL VHR: 1 - review of egm shows 11 beats 1:1 AV tachycardia at 170 bpm Histograms: Appropriate rate distribution 60 bpm to 120 bpm Next remote: 07/25/2025, Next In-clinic: 08/07/2025 Signature: Faith STEWART, RN I have reviewed the device function, programmed parameters, and heart rhythm. Patient will return to the Device Clinic &/or remote follow up and provider visit per protocol. [facility] CARDIAC REMOTE DEVICE CHECKO rdered By: Ney Nguyen on 05-11-2025 [facility] Work Phone: Bilirubin Test strip Ql (U)O rdered By: Benjamín Tavarez on 04-19-2025 Bilirubin Ql (U) Negative Negative [facility] Ketones Test strip Ql (U)Ord ered By: Benjamín Tavarez on 04-19-2025 Ketones Ql (U) Negative Negative [facility] Nitrite Test strip Ql (U)Ord ered By: Benjamín Tavarez on 04-19-2025 Nitrite Ql (U) Negative Negative [facility] Protein Test strip Ql (U)Ord ered By: Benjamín Tavarez on 04-19-2025 Protein Ql (U) 30 mg/dl High Negative [facility] Urine clarityOrdered By: Sage Tavarez on 04-19-2025 Clarity (U) Cloudy Clear [facility] Urine color determinationOrd ered By: Benjamín Tavarez on 04-19-2025 Color (U) Yellow Yellow [facility] Urine cultureOrdered By: Sage Tavarez on 04-19-2025 Bacteria identified Cx Nom (U) Enterococcus faecalis Abnormal [facility] Bacteria identified Cx Nom (U) Strep anginosus Abnormal [facility] Bacteria identified Cx Nom (U) Presumptive Lactobacillus sp. Abnormal [facility] Urine glucose detectionOrder ed By: Benjamín Tavarez on 04-19-2025 Glucose Ql (U) Normal mg/dl Normal [facility] Urine leukocyte esterase det ection by dipstickOrdered By: Benjamín Tavarez on 04-19-2025 Leukocyte esterase Test strip Ql (U) 500 /ul High Negative [facility] Urine pHOrdered By: Man Tavarez on 04-19-2025 pH (U) 6.0 [pH] 5.0 - 8.0 [facility] Urine specific gravity measu rementOrdered By: Benjamín Tavarez on 04-19-2025 Specific gravity (U) [Rel density] 1.020 1.002-1.030 [facility] Urine urobilinogen measureme ntOrdered By: Benjamín Tavarez on 04-19-2025 Urobilinogen Ql (U) Normal mg/dl Normal [facility] Anion gap in Serum or Plasma Ordered By: Benjamín Tavarez on 03-21-2025 Anion gap [Moles/Vol] 11 mmol/L 5-15 [facility] BUN/creatinine ratioOrdered By: Benjamín Tavarez on 03-21-2025 Urea nitrogen/Creatinine [Mass ratio] 16.5 mg/mg 10-20 [facility] Bilirubin, totalOrdered By: Benjamín Tavarez on 03-21-2025 Bilirubin [Mass/Vol] 0.33 mg/dL 0.00-1.30 [facility] Calculated very low density lipoprotein (VLDL) cholesterol measurementOrdered By: Benjamín Tavarez on 03-21-2025 Calculated very low density lipoprotein (VLDL) cholesterol measurement 35 mg/dL -40 [facility] Carbon dioxide, total [Moles /volume] in Central venous bloodOrdered By: Benjamín Tavarez on 03-21-2025 CO2 [Moles/Vol] 23.3 mmol/L 21.0-32.0 [facility] Chloride assayOrdered By: Karoline Tavarez on 03-21-2025 Chloride [Moles/Vol] 105 mmol/L 98-108 [facility] Erythrocyte distribution wid th ratioOrdered By: Benjamín Tavarez on 03-21-2025 Erythrocyte distribution width (RBC) [Ratio] 13.7 % 11.6-14.6 [facility] Erythrocyte distribution wid th standard deviationOrdered By: Benjamín Tavarez 03-21-2025 Erythrocyte distribution width (RBC) [Ratio] 42.3 fl 35.1-43.9 [facility] Glomerular filtration rate ( GFR) estimation/1.73 sq m using serum, plasma, or whole bOrdered By: Benjamín Tavarez on 03-21-2025 GFR/1.73 sq M.predicted among non-blacks MDRD (S/P/Bld) [Vol rate/Area] 50 mL/min/{1.73_m2} Low >60 [facility] Comment on above: mL/min/1.73m2 CKD-EP I Creatinine Equation (2020) Hematocrit Auto (Bld) [Volum e fraction]Ordered By: Benjamín Tavarez on 03-21-2025 Hematocrit (Bld) [Volume fraction] 39.1 % 37-47 [facility] Hemoglobin measurementOrdere d By: Benjamín Tavarez on 03-21-2025 Hemoglobin (Bld) [Mass/Vol] 13.0 g/dL 12.0-15.0 [facility] LDL calc ser/plasOrdered By: Benjamín Tavarez on 03-21-2025 Cholesterol in LDL [Mass/Vol] 57 mg/dL [facility] Comment on above: Olgueekqmr=420-653 m g/dL & Higher Nhts=057 mg/dL or greater Laboratory - Chemistry and C hemistry - challengeOrdered By: Benjamín Tavarez on 03-21-2025 AST [Catalytic activity/Vol] 17 U/L <32 [facility] MCV (mean corpuscular volume ) determinationOrdered By: Benjamín Tavarez on 03-21-2025 MCV (RBC) [Entitic vol] 84.4 fL 81-99 [facility] Mean corpuscular hemoglobin (MCH) determinationOrdered By: Benjamín Tavarez on 03-21-2025 MCH (RBC) [Entitic mass] 28.1 pg 27.0-32.0 [facility] Mean corpuscular hemoglobin concentration (MCHC) determinationOrdered By: Benjamín Tavarez on 03-21-2025 MCHC (RBC) [Mass/Vol] 33.2 g/dL 32-36 [facility] Mean platelet volume determi nationOrdered By: Benjamín Tavarez on 03-21-2025 Platelet mean volume (Bld) [Entitic vol] 10.2 fL 6.2-12.0 [facility] Platelet countOrdered By: Karoline Tavarez on 03-21-2025 Platelets (Bld) [#/Vol] 264 10*3/uL 150-450 [facility] Potassium measurement (mass/ volume)Ordered By: Benjamín Tavarez on 03-21-2025 Potassium (Unsp spec) [Mass/Vol] 3.8 mmol/L 3.3-5.1 [facility] RBC Auto (Bld) [#/Vol]Ordere d By: Benjamín Tavarez on 03-21-2025 RBC (Bld) [#/Vol] 4.63 10*6/uL 4.2-5.4 [facility] Screening total cholesterol/ high density lipoprotein (HDL) cholesterol ratioOrdered By: Benjamín Tavarez on 03-21-2025 Cholesterol.total/Opal sterol in HDL [Mass ratio] 4.04 {ratio} [facility] Serum creatinine measurement (mass/volume)Ordered By: Benjamín Tavarez on 03-21-2025 Creatinine [Mass/Vol] 1.15 mg/dL 0.70-1.20 [facility] Serum globulin measurementOr dered By: Benjamín Tavarez on 03-21-2025 Globulin (S) [Mass/Vol] 3.7 g/dL 2.2-4.2 [facility] Serum glucose measurement (m ass/volume)Ordered By: Benjamín Tavarez on 03-21-2025 Glucose [Mass/Vol] 100 mg/dL High 70-99 [facility] Serum or plasma alanine torres otransferase (ALT) measurementOrdered By: Benjamín Tavarez 03-21-2025 ALT [Catalytic activity/Vol] 11 U/L <35 [facility] Serum or plasma albumin arnold urement (mass/volume)Ordered By: Benjamín Tavarez 03-21-2025 Albumin [Mass/Vol] 3.5 g/dL 3.4-4.8 [facility] Serum or plasma albumin/glob ulin mass ratioOrdered By: Benjamín Tavarez on 03-21-2025 Albumin/Globulin [Mass ratio] 0.9 {ratio} 0.9-2.4 [facility] Serum or plasma alkaline mary lou sphatase measurementOrdered By: Benjamín Tavarez 03-21-2025 ALP [Catalytic activity/Vol] 108 U/L High 35-104 [facility] Serum or plasma calcium arnold urement (mass/volume)Ordered By: Benjamín Tavarez 03-21-2025 Calcium [Mass/Vol] 9.9 mg/dL 7.6-11.0 [facility] Serum or plasma cholesterol in HDL measurement (mass/volume)Ordered By: Benjamín Tavarez on 03-21-2025 Cholesterol in HDL [Mass/Vol] 30 mg/dL Low >40 [facility] Comment on above: National Cholesterol Education Program (NCEP) guidelines:<40 mg/dL: Low HDL-cholesterol (major risk factor for CHD)>= 60 mg/dL: High HDL-cholesterol (negative risk factor for CHD)HDL-cholesterol is affected by a number of factors, e.g. smoking, exercise, hormones, sex and age. Serum or plasma cholesterol measurement (mass/volume)Ordered By: Benjamín Tavarez on 03-21-2025 Cholesterol [Mass/Vol] 122 mg/dL <201 [facility] Comment on above: Cholesterol level, D esirable <200 mg/dLBorderline high cholesterol 200-239 mg/dLHigh cholesterol >=240 mg/dLRecommendations of the NCEP Adult Treatment Panel for the following risk-cutoff thresholds for the [place] population. Serum or plasma urea nitroge n measurement (mass/volume)Ordered By: Benjamín Tavarez on 03-21-2025 Urea nitrogen [Mass/Vol] 19 mg/dL 4-19 [facility] Sodium levelOrdered By: Remi alamoabrma Daysi on 03-21-2025 Sodium [Moles/Vol] 140 mmol/L 133-145 [facility] Total proteinOrdered By: Sage jeramyluz elena Tavarez on 03-21-2025 Protein [Mass/Vol] 7.2 g/dL 5.9-8.4 [facility] Triglycerides measurementOrd ered By: Benjamín Tavarez on 03-21-2025 Triglyceride [Mass/Vol] 174 mg/dL <199 [facility] Comment on above: The drugs N-Acetylcy steine and Metamizole may falsely depress this assay. Normal range: <150 mg/dLBorderline High: 150-199 mg/dLHigh: 200-499 mg/dLVery High: >500 mg/dL [facility] blood cell (WBC) count Ordered By: Benjamín Tavarez on 03-21-2025 WBC (Bld) [#/Vol] 13.6 10*3/uL High 4.4-11.0 [facility] CARDIAC REMOTE DEVICE CHECKo n 02-28-2025 Remote Interrogation of Dual Chamber Pacemaker Notes/Summary: Stable Device function Est. Battery: 7 years Presenting EGM: /VS 60-70s bpm ADMINISTRATION INTERNSHIP: 0% AT/AF [place]: <1% since 08/10/2023 AHR: 3 episodes since 10/25/2024 lasting 1-3 seconds. VHR: 0 since 10/25/2024 Histograms: Appropriate rate distribution, 70s-110s bpm Next remote: 04/25/2025 Next In-clinic: 08/07/2025 NOV: Dr Marlene Hubbard Signature: Gómez STEWART, RN / reviewed and approved by Evelyne Nieto RN I have reviewed the device function, programmed parameters, and heart rhythm. Patient will return to the Device Clinic &/or remote follow up and provider visit per protocol. Surya Brown MD - 02/28/2025 Remote Interrogation of Dual Chamber Pacemaker Notes/Summary: Stable Device function Est. Battery: 7 years Presenting EGM: /VS 60-70s bpm ADMINISTRATION INTERNSHIP: 0% AT/AF [place]: <1% since 08/10/2023 AHR: 3 episodes since 10/25/2024 lasting 1-3 seconds. VHR: 0 since 10/25/2024 Histograms: Appropriate rate distribution, 70s-110s bpm Next remote: 04/25/2025 Next In-clinic: 08/07/2025 NOV: Dr Marlene Hubbard Signature: Gómez STEWART, RN / reviewed and approved by Evelyne Nieto RN I have reviewed the device function, programmed parameters, and heart rhythm. Patient will return to the Device Clinic &/or remote follow up and provider visit per protocol. [facility] CARDIAC REMOTE DEVICE CHECKO rdered By: Surya Naranjo on 02-28-2025 [facility] Work Phone: Hemoglobin A1c percentageOrd ered By: Benjamín Tavarez on 01-24-2025 HbA1c (Bld) [Mass fraction] 8.1 % High <5.7 [facility] Comment on above: Normal < 5.7 % Predi abetic 5.7 - 6.4 % Diabetic >or= 6.5 % Please note range changes. CNCOon 01-03-2025 [facility] Letter Text Normal [facility] CARDIAC REMOTE DEVICE CHECKo n 11-09-2024 Remote Interrogation of Pacemaker Notes/Summary: Stable Device function Est. Battery: 7yrs Presenting EGM: /VS 80s ADMINISTRATION INTERNSHIP: 0% SINCE 07/26/24: AT/AF [place]: <1% AHR: 3 VHR: 1 Histograms: Appropriate [...] Est. Battery: 7yrs Presenting EGM: /VS 80s ADMINISTRATION INTERNSHIP: 0% SINCE 07/26/24: AT/AF [place]: <1% AHR: 3 VHR: 1 Histograms: Appropriate rate distribution Next remote: quarterly Next In-clinic: 12/2024 Signature: Ethan STEWART RN I have reviewed the device function, programmed parameters, and heart rhythm. Patient will return to the Device Clinic &/or remote follow up and provider visit per protocol. [facility] CARDIAC REMOTE DEVICE CHECKO rdered By: Clarita Merrill on 11-09-2024 [facility] Work Phone: CARDIAC REMOTE DEVICE CHECKo n 07-26-2024 Alert Remote Interrogation of Dual Chamber Pacemaker in Pace mate for AF [place], no alert on [facility] web site Notes/Summary: Stable Device function Presenting EGM: / VS @ 75 bpm Battery Longevity: 7.5 yrs. AP: 0 % ADMINISTRATION INTERNSHIP: 0 % AT/AF [place]: <1% since 08/11/23 AHR: 2 ATR episodes [...] Chamber Pacemaker in Pace mate for AF [place], no alert on [facility] web site Notes/Summary: Stable Device function Presenting EGM: / VS @ 75 bpm Battery Longevity: 7.5 yrs. AP: 0 % ADMINISTRATION INTERNSHIP: 0 % AT/AF [place]: <1% since 08/11/23 AHR: 2 ATR episodes reported for 1's w/ V. Rates 88-107 bpm VHR: 0 reported since last remote Histograms: Appropriate rate distribution, 70-110 Next remote: 10/25/24 Next In-clinic:08/15/24 NOV: Signature: Evelyne Nieto RN I have reviewed the device function, programmed parameters, and heart rhythm. Patient will return to the Device Clinic &/or remote follow up and provider visit per protocol. [facility] CARDIAC REMOTE DEVICE CHECKO rdered By: Clarita Merrill on 07-26-2024 [facility] Work Phone: CARDIAC REMOTE DEVICE CHECKo n 05-23-2024 04/26/2024 Remote Interrogation of Pacemaker Notes/Summary: Stable Device function; next remote 07/26/2024, next clinic 08/15/2024. Presenting EGM: SR 80s AT/AF [place]: <1% since 08/10/2023 AHR: 2<1 minute in duration. Review of egms show paroxysmal AFL VHR: 0 Histograms: Appropriate rate distribution, 80 bpm to 130 bpm Signature: Faith STEWART, RN I have reviewed the device function, programmed parameters, and heart rhythm. Patient will return to the Device Clinic &/or remote follow up and provider visit per protocol. Clarita Wang MD - 05/23/2024 04/26/2024 Remote Interrogation of Pacemaker Notes/Summary: Stable Device function; next remote 07/26/2024, next clinic 08/15/2024. Presenting EGM: SR 80s AT/AF [place]: <1% since 08/10/2023 AHR: 2<1 minute in duration. Review of egms show paroxysmal AFL VHR: 0 Histograms: Appropriate rate distribution, 80 bpm to 130 bpm Signature: Faith STEWART, RN I have reviewed the device function, programmed parameters, and heart rhythm. Patient will return to the Device Clinic &/or remote follow up and provider visit per protocol. [facility] CARDIAC REMOTE DEVICE CHECKO rdered By: Clarita Merrill on 05-23-2024 [facility] Work Phone: CARDIAC REMOTE DEVICE CHECKo n 04-26-2024 Radiology Study observation (narrative) [facility] AMMONIAon 02-18-2024 Ammonia (P) [Moles/Vol] 10.0 umol/L Low 11.0 - 32.0 [facility] Comment on above: Performed By: #### 2 08215 #### [facility],[address] [place] [address] 53868 Bacteria Ur Culton Bacteria identified Cx Nom (U) CULTURE, URINE: No growth (<1,000 CFU/ml) Normal [facility] Comment on above: Performed By: #### 6 30-4 #### [facility] CLIA [id number] [address] [place] [address] [place] CBC + DIFFon 02-17-2024 Baso # 0.06 x10EE3/UL Normal 0.00 - 0.10 [facility] Comment on above: Performed By: #### 2 26627 #### [facility],[address] [place] [address] 66042 Basophils/100 WBC (Bld) 0.5 % Normal 0.0 - 2.0 [facility] Comment on above: Performed By: #### 2 85608 #### [facility],[address] [place] [address] 03943 CBC + DIFF Normal [facility] Comment on above: Result Comment: CBC- COMPLETE BLOOD COUNT Performed By: #### 2 50832 #### [facility],[address] [place] [address] 67482 EO # 0.71 x10EE3/UL High 0.00 - 0.50 [facility] Comment on above: Performed By: #### 2 41622 #### [facility],[address] [place], [place] [id number] Eosinophils/100 WBC (Bld) 5.7 % Normal 0.0 - 7.0 [facility] Comment on above: Performed By: #### 2 00604 #### [facility],[address] [place] [address] Erythrocyte distribution width (RBC) [Ratio] 15.1 % Normal 12.0 - 15.6 [facility] Comment on above: Performed By: #### 2 69219 #### [facility],[address] [place] [address] Hematocrit (Bld) [Volume fraction] 43.2 % Normal 34.0 - 46.0 [facility] Comment on above: Performed By: #### 2 00003 #### [facility],[address] [place] [address] Hemoglobin (Bld) [Mass/Vol] 14.0 g/dL Normal 12.0 - 16.0 [facility] Comment on above: Performed By: #### 2 64077 #### [facility],[address] [place], [place] [id number] Lymph # 2.49 x10EE3/UL Normal 0.80 - 2.80 [facility] Comment on above: Performed By: #### 2 70108 #### [facility],[address] [place], [place] [address] Lymphocytes/100 WBC (Bld) 19.9 % Low 20.0 - 45.0 [facility] Comment on above: Performed By: #### 2 12650 #### [facility],[address] [place], [place] [id number] MANUAL DIFF N/A Normal [facility] Comment on above: Performed By: #### 2 48997 #### [facility],[address] [place] [address] MCH (RBC) [Entitic mass] 27 pg Normal 27 - 33 [facility] Comment on above: Performed By: #### 2 78470 #### [facility],[address] [place] [address] MCHC 32 X10 3 Normal 32 - 36 [facility] Comment on above: Performed By: #### 2 16680 #### [facility],[address] [place] [address] MCV (RBC) [Entitic vol] 83 fL Normal 80 - 99 [facility] Comment on above: Performed By: #### 2 25221 #### [facility],[address] [place] [address] [place] # 1.09 x10EE3/UL High 0.20 - 1.00 [facility] Comment on above: Performed By: #### 2 60981 #### [facility],[address] [place] [address] MONOS % 8.7 % Normal 0.0 - 10.0 [facility] Comment on above: Performed By: #### 2 18185 #### [facility],[address] [place] [address] Morphology Corey (Bld) [Interp] N/A Normal [facility] Comment on above: Performed By: #### 2 48723 #### [facility],[address] [place] [address] Neut # 8.19 x10EE3/UL High 1.50 - 7.10 [facility] Comment on above: Performed By: #### 2 46104 #### [facility],[address] [place] [address] Neutrophils/100 WBC (Bld) 65.3 % Normal 46.0 - 76.0 [facility] Comment on above: Performed By: #### 2 35613 #### [facility],[address] [place] [address] 35027 PLATELET 334 x10EE3/UL Normal 150 - 450 [facility] Comment on above: Performed By: #### 2 01901 #### [facility],[address] [place] [address] 06392 Platelet mean volume (Bld) [Entitic vol] 7.7 fL Normal 6.6 - 10.5 [facility] Comment on above: Result Comment: AUTO MATED DIFFERENTIAL Performed By: #### 2 84771 #### [facility],[address] [place] [address] 80204 RBC 5.22 x 10EE6/UL Normal 4.10 - 5.30 [facility] Comment on above: Performed By: #### 2 20255 #### [facility],[address] [place] [address] 67338 WBC 12.5 x 10EE3/UL High 4.5 - 10.8 [facility] Comment on above: Performed By: #### 2 94268 #### [facility],[address] [place] [address] 05944 CMP with eGFRon 02-17-2024 AGE 73 years Normal [facility] Comment on above: Performed By: #### 2 48353 #### [facility],[address] [place] [address] 23475 Albumin [Mass/Vol] 3.0 g/dL Low 3.4 - 5.0 [facility] Comment on above: Performed By: #### 2 15262 #### [facility],[address] [place] [address] 31449 Albumin/Globulin [Mass ratio] 0.6 {ratio} Low 0.9 - 1.6 [facility] Comment on above: Performed By: #### 2 99283 #### [facility],[address] [place] [address] 80161 ALK PHOS 159 U/L High 46 - 116 [facility] Comment on above: Performed By: #### 2 81580 #### [facility],[address] [place] [address] 85616 ALT [Catalytic activity/Vol] 36 U/L Normal 16 - 63 [facility] Comment on above: Performed By: #### 2 50736 #### [facility],[address] [place] [address] 34252 Anion gap [Moles/Vol] 14 mmol/L Normal 10 - 20 [facility] Comment on above: Performed By: #### 2 70286 #### [facility],[address] [place] [address] 03045 AST [Catalytic activity/Vol] 24 U/L Normal 13 - 39 [facility] Comment on above: Performed By: #### 2 48906 #### [facility],[address] [place] [address] 18613 B/C RATIO 20 ratio Normal 0 - 30 [facility] Comment on above: Performed By: #### 2 79857 #### [facility],[address] [place] [address] 10643 Bilirubin [Mass/Vol] 0.3 mg/dL Normal 0.2 - 1.0 [facility] Comment on above: Performed By: #### 2 90162 #### [facility],[address] [place] [address] 27392 Calcium [Mass/Vol] 10.2 mg/dL High 8.5 - 10.1 [facility] Comment on above: Performed By: #### 2 02344 #### [facility],[address] [place] [address] 04213 Chloride [Moles/Vol] 100 mmol/L Normal 98 - 107 [facility] Comment on above: Performed By: #### 2 33139 #### [facility],[address] [place] [address] 53821 CMP with eGFR Normal [facility] Comment on above: Result Comment: COMP REHENSIVE METABOLIC PANEL Performed By: #### 2 33688 #### [address] [address] CO2 [Moles/Vol] 25.8 mmol/L Normal 21.0 - 32.0 [facility] Comment on above: Performed By: #### 2 40516 #### [address] [address] Creatinine [Mass/Vol] 1.43 mg/dL High 0.55 - 1.02 [facility] Comment on above: Performed By: #### 2 69888 #### [address] [address] eGFR 36 ML/MINUTE Low 60 - 999 [facility] Comment on above: Performed By: #### 2 71658 #### [address] [address] eGFR(AA) 44 ML/MINUTE Low 60 - 999 [facility] Comment on above: Result Comment: ACCO RDING TO THE NATIONAL KIDNEY DISEASE EDUCATION PROGRAM(NKDE), A NORMAL eGFR IS A VALUE GREATER THAN OR EQUAL TO 60 ML/MIN/1.73 SQ METERS. CHRONIC KIDNEY DISEASE: <60mL/MIN/1.73 SQ METERS KIDNEY FAILURE: <15mL/MIN/1.73 SQ METERS THIS TEST SHOULD ONLY BE USED FOR PATIENTS 18 YEARS OF AGE AND OLDER. Performed By: #### 2 43399 #### [address] [address] Globulin (S) [Mass/Vol] 5.2 g/dL High 1.5 - 3.8 [facility] Comment on above: Performed By: #### 2 94716 #### [address] [address] Glucose [Mass/Vol] 180 mg/dL High 74 - 106 [facility] Comment on above: Performed By: #### 2 47489 #### [address] [address] Potassium [Moles/Vol] 4.2 mmol/L Normal 3.5 - 5.1 [facility] Comment on above: Performed By: #### 2 01900 #### [facility],[address] [place] [address] 26303 Protein [Mass/Vol] 8.2 g/dL Normal 6.4 - 8.2 [facility] Comment on above: Performed By: #### 2 83365 #### [facility],[address] [place] [address] 38763 Sodium [Moles/Vol] 136 mmol/L Normal 136 - 145 [facility] Comment on above: Performed By: #### 2 72267 #### [facility],[address] [place] [address] Urea nitrogen [Mass/Vol] 29 mg/dL High 7 - 18 [facility] Comment on above: Performed By: #### 2 58554 #### [facility],[address] [place] [address] 70287 URINALYSISon 02-17-2024 Amorphous NONE Normal [facility] Comment on above: Performed By: #### 2 46531 #### [facility],[address] [place] [address] 94270 Bacteria 4+ Normal [facility] Comment on above: Performed By: #### 2 61980 #### [facility],[address] [place] [address] 80429 Bilirubin Ql (U) Negative Normal NORMAL: NEGATIVE [facility] Comment on above: Performed By: #### 2 70244 #### [facility],[address] [place] [address] 70782 Casts NONE Normal [facility] Comment on above: Performed By: #### 2 60173 #### [facility],[address] [place] [address] 13944 Clarity (U) sl.cloudy Normal NORMAL: CLEAR [facility] Comment on above: Performed By: #### 2 96006 #### [facility],[address] [place] [address] 24022 Color (U) yellow Normal NORMAL: YELLOW [facility] Comment on above: Performed By: #### 2 98154 #### [facility],[address] [place] [address] 67175 Crystals LM Nom (Urine sed) NONE Normal [facility] Comment on above: Performed By: #### 2 57088 #### [facility],[address] [place] [address] 41677 Epi Cells FEW Normal [facility] Comment on above: Performed By: #### 2 76108 #### [facility],[address] [place] [address] 39794 Glucose Ql (U) NORM Normal NORMAL: NORMAL [facility] Comment on above: Performed By: #### 2 87612 #### [facility],[address] [place] [address] 73514 Hemoglobin Ql (U) 25 Abnormal NORMAL: NEGATIVE [facility] Comment on above: Performed By: #### 2 81762 #### [facility],[address] [place] [address] 07680 Ketone Negative Normal NORMAL: NEGATIVE [facility] Comment on above: Performed By: #### 2 69558 #### [facility],[address] [place] [address] 33106 Leukocytes 500 Abnormal NORMAL: NEGATIVE [facility] Comment on above: Performed By: #### 2 67278 #### [facility],[address] [place] [address] 02429 Mucous NONE Normal [facility] Comment on above: Performed By: #### 2 20578 #### [facility],[address] [place] [address] 11060 Nitrite Ql (U) Negative Normal NORMAL: NEGATIVE [facility] Comment on above: Performed By: #### 2 74085 #### [facility],[address] [place] [address] pH (U) 6 [pH] Normal NORMAL: 5.0-8.0 [facility] Comment on above: Performed By: #### 2 20920 #### [facility],[address] [place] [address] Protein Ql (U) 30 Abnormal NORMAL: NEGATIVE [facility] Comment on above: Performed By: #### 2 29445 #### [facility],[address] [place] [address] Rbc 0-5 Normal 0-3/hpf [facility] Comment on above: Performed By: #### 2 71451 #### [facility],[address] [place] [address] Sp [place] 1.015 Normal NORMAL: 1.010-1.030 [facility] Comment on above: Performed By: #### 2 87976 #### [facility],[address] [place] [address] Specimen Type Catheter Normal [facility] Comment on above: Performed By: #### 2 07303 #### [facility],[address] [place] [address] Urinalysis dipstick W Reflex Microscopic panel (U) SEE BELOW Normal [facility] Comment on above: Result Comment: MICR OSCOPIC Performed By: #### 2 87832 #### [facility],[address] [place] [address] Urobilinog NORM Normal NORMAL: NORMAL [facility] Comment on above: Performed By: #### 2 77332 #### [facility],[address] [place] [address] WBC (U) [#/Vol] /uL Normal 0-5/hpf [facility] Comment on above: Performed By: #### 2 98262 #### [facility],[address] [place] [address] 29376 Yeast NONE Normal [facility] Comment on above: Performed By: #### 2 02528 #### [facility],[address] [place] [address] 58340 URINE CULTURE [CCL]on 2023 Bacteria identified Cx Nom (U) URCUL See Results Below See Below CULTURE, URINE No growth (<1,000 CFU/ml) SOURCE: Urine (Nonspecific) [facility] [address] [id number] Sukhjinder Fregoso III, M.D. [id number] Normal [facility] Comment on above: Performed By: #### 2 29219 #### [facility],[address] [place] [address] 92932 URINE CULTURE [CCL]on 2023 Bacteria identified Cx Nom (U) URCUL See Results Below See Below CULTURE, URINE NORMAL UROGENITAL CHRIS 10,000 -<50,000 CFU/ml Normal urogenital chris SOURCE: Urine (Nonspecific) [address] [place] [address] Sukhjinder Fregoso III, M.D. [id number] SEND TO NO Normal [facility] Comment on above: Performed By: #### 2 70848 #### [facility],[address] [place] [address] 92310 URINALYSISon 01-28-2024 Amorphous NONE Normal [facility] Comment on above: Performed By: #### 2 32787 #### [facility],[address] [place] [address] 37149 Bacteria 4+ Normal [facility] Comment on above: Performed By: #### 2 81637 #### [facility],[address] [place] [address] 55873 Bilirubin Ql (U) Negative Normal NORMAL: NEGATIVE [facility] Comment on above: Performed By: #### 2 97093 #### [facility] [place] [address] 60452 Casts NONE Normal [facility] Comment on above: Performed By: #### 2 46184 #### [facility],[address] [place] [address] 44352 Clarity (U) very cloudy Normal NORMAL: CLEAR [facility] Comment on above: Performed By: #### 2 09046 #### [facility],[address] [place] [address] 69114 Color (U) yellow Normal NORMAL: YELLOW [facility] Comment on above: Performed By: #### 2 15836 #### [facility],[address] [place] [address] 64072 Crystals LM Nom (Urine sed) NONE Normal [facility] Comment on above: Performed By: #### 2 26233 #### [facility],[address] [place] [address] 41548 Epi Cells OCC Normal [facility] Comment on above: Performed By: #### 2 61472 #### [facility],[address] [place] [address] 10396 Glucose Ql (U) 250 Abnormal NORMAL: NORMAL [facility] Comment on above: Performed By: #### 2 33492 #### [facility],[address] [place] [address] 06122 Hemoglobin Ql (U) 50 Abnormal NORMAL: NEGATIVE [facility] Comment on above: Performed By: #### 2 07846 #### [facility],[address] [place] [address] 87883 Ketone Negative Normal NORMAL: NEGATIVE [facility] Comment on above: Performed By: #### 2 18196 #### [facility],[address] [place] [address] 52235 Leukocytes 500 Abnormal NORMAL: NEGATIVE [facility] Comment on above: Performed By: #### 2 83139 #### [facility],[address] [place] [address] Mucous NONE Normal [facility] Comment on above: Performed By: #### 2 54929 #### [facility],[address] [place], [place] [address] Nitrite Ql (U) Negative Normal NORMAL: NEGATIVE [facility] Comment on above: Performed By: #### 2 64386 #### [facility],[address] [place] [address] pH (U) 5 [pH] Normal NORMAL: 5.0-8.0 [facility] Comment on above: Performed By: #### 2 48707 #### [facility],[address] [place] [address] Protein Ql (U) 30 Abnormal NORMAL: NEGATIVE [facility] Comment on above: Performed By: #### 2 84358 #### [place] [address] Rbc 0-5 Normal 0-3/hpf [facility] Comment on above: Performed By: #### 2 45838 #### [facility],[address] [place] [address] Sp [place] 1.020 Normal NORMAL: 1.010-1.030 [facility] Comment on above: Performed By: #### 2 56277 #### [facility],[address] [place] [address] Specimen Type [place] Normal [facility] Comment on above: Performed By: #### 2 34092 #### [facility],[address] [place], [place] [address] Urinalysis dipstick W Reflex Microscopic panel (U) SEE BELOW Normal [facility] Comment on above: Result Comment: MICR OSCOPIC Performed By: #### 2 83720 #### [facility],[address] [place] [address] Urobilinog NORM Normal NORMAL: NORMAL [facility] Comment on above: Performed By: #### 2 97442 #### [facility],[address] [place] [address] 80096 WBC (U) [#/Vol] /uL Normal 0-5/hpf [facility] Comment on above: Performed By: #### 2 92116 #### [facility],[address] [place] [address] 26535 Yeast NONE Normal [facility] Comment on above: Performed By: #### 2 04211 #### [facility],[address] [place] [address] 79438 Bacteria Ur Culton 4 Bacteria identified Cx Nom (U) ORGANISM ID: 1 10,000 -<50,000 CFU/ml Normal urogenital chris Normal [facility] Comment on above: Performed By: #### 6 30-4 #### [facility] CLIA [id number] [address] [place] [address] [place] URINE CULTURE [CCL]on 2023 Bacteria identified Cx Nom (U) URCUL See Results Below See Below CULTURE, URINE No growth (<1,000 CFU/ml) SOURCE: Urine (Nonspecific) [facility] [address] [place] [address] Sukhjinder Fregoso III, M.D. [id number] SEND TO IC NO Normal [facility] Comment on above: Performed By: #### 2 71132 #### [facility],[address] [place] [address] 80599 Bacteria Ur Culton 4 Bacteria identified Cx Nom (U) CULTURE, URINE: No growth (<1,000 CFU/ml) Normal [facility] Comment on above: Performed By: #### 6 30-4 #### [facility] CLIA [id number] [address] [place] [address] [place] URINALYSISon 01-13-2024 Amorphous NONE Normal [facility] Comment on above: Performed By: #### 2 57429 #### [facility],[address] [place] [address] 86767 Bacteria TRACE Normal [facility] Comment on above: Performed By: #### 2 76614 #### [facility],[address] [place] [address] 72892 Bilirubin Ql (U) Negative Normal NORMAL: NEGATIVE [facility] Comment on above: Performed By: #### 2 15116 #### [facility],[address] [place] [address] 33646 Casts NONE Normal [facility] Comment on above: Performed By: #### 2 99368 #### [facility],[address] [place], [place] [address] Clarity (U) clear Normal NORMAL: CLEAR [facility] Comment on above: Performed By: #### 2 29447 #### [facility],[address] [place], [place] [address] Color (U) p.yel Normal NORMAL: YELLOW [facility] Comment on above: Performed By: #### 2 28633 #### [facility],[address] [place] [address] 91190 Crystals LM Nom (Urine sed) NONE Normal [facility] Comment on above: Performed By: #### 2 95138 #### [facility],[address] [place] [address] 48989 Epi Cells RARE Normal [facility] Comment on above: Performed By: #### 2 61213 #### [facility],[address] [place] [address] 69563 Glucose Ql (U) NORM Normal NORMAL: NORMAL [facility] Comment on above: Performed By: #### 2 59144 #### [facility],[address] [place] [address] 72852 Hemoglobin Ql (U) 10 Abnormal NORMAL: NEGATIVE [facility] Comment on above: Performed By: #### 2 02426 #### [facility],[address] [place] [address] 03622 Ketone Negative Normal NORMAL: NEGATIVE [facility] Comment on above: Performed By: #### 2 88963 #### [facility],[address] [place] [address] 14358 Leukocytes 500 Abnormal NORMAL: NEGATIVE [facility] Comment on above: Performed By: #### 2 [id number] #### [facility],[address] [place] [address] 65507 Mucous NONE Normal [facility] Comment on above: Performed By: #### 2 84043 #### [facility],[address] [place] [address] 55883 Nitrite Ql (U) Negative Normal NORMAL: NEGATIVE [facility] Comment on above: Performed By: #### 2 66540 #### [facility],[address] [place] [address] pH (U) 7 [pH] Normal NORMAL: 5.0-8.0 [facility] Comment on above: Performed By: #### 2 24860 #### [facility],[address] [place] [address] 06729 Protein Ql (U) Negative Normal NORMAL: NEGATIVE [facility] Comment on above: Performed By: #### 2 48702 #### [facility],[address] [place] [address] 72609 Rbc 0-5 Normal 0-3/hpf [facility] Comment on above: Performed By: #### 2 64078 #### [facility],[address] [place] [address] 20594 Sp [place] 1.005 Low NORMAL: 1.010-1.030 [facility] Comment on above: Performed By: #### 2 98268 #### [facility],[address] [place] [address] 68674 Specimen Type UNSPECIFIED Normal [facility] Comment on above: Performed By: #### 2 69347 #### [facility],[address] [place], [place] [id number] Urinalysis dipstick W Reflex Microscopic panel (U) SEE BELOW Normal [facility] Comment on above: Result Comment: MICR OSCOPIC Performed By: #### 2 95720 #### [facility],[address] [place] [address] 98160 Urobilinog NORM Normal NORMAL: NORMAL [facility] Comment on above: Performed By: #### 2 82631 #### [facility],[address] [place] [address] Wbc 6-10 Normal 0-5/hpf [facility] Comment on above: Performed By: #### 2 13993 #### [facility],[address] [place] [address] Yeast NONE Normal [facility] Comment on above: Performed By: #### 2 35216 #### [facility],[address] [place], [place] [id number] BMP with eGFRon 01-03-2024 AGE 73 years Normal [facility] Comment on above: Performed By: #### 2 44922 #### [facility],[address] [place], [place] [id number] Anion gap [Moles/Vol] 15 mmol/L Normal 10 - 20 [facility] Comment on above: Performed By: #### 2 51165 #### [facility],[address] [place], [place] [id number] BMP with eGFR Normal [facility] Comment on above: Result Comment: BASI C METABOLIC PANEL Performed By: #### 2 79800 #### [facility],[address] [place] [address] 84722 Calcium [Mass/Vol] 10.2 mg/dL High 8.5 - 10.1 [facility] Comment on above: Performed By: #### 2 38636 #### [facility],[address] [place], [place] [id number] Chloride [Moles/Vol] 103 mmol/L Normal 98 - 107 [facility] Comment on above: Performed By: #### 2 35896 #### [facility],[address] [place] [address] 19735 CO2 [Moles/Vol] 25.3 mmol/L Normal 21.0 - 32.0 [facility] Comment on above: Performed By: #### 2 31784 #### [facility],[address] [place] [address] 12111 Creatinine [Mass/Vol] 1.40 mg/dL High 0.55 - 1.02 [facility] Comment on above: Performed By: #### 2 65534 #### [facility],[address] [place] [address] 10651 eGFR 37 ML/MINUTE Low 60 - 999 [facility] Comment on above: Performed By: #### 2 70636 #### [facility],[address] [place] [address] 37592 eGFR(AA) 45 ML/MINUTE Low 60 - 999 [facility] Comment on above: Result Comment: ACCO RDING TO THE NATIONAL KIDNEY DISEASE EDUCATION PROGRAM(NKDE), A NORMAL eGFR IS A VALUE GREATER THAN OR EQUAL TO 60 ML/MIN/1.73 SQ METERS. CHRONIC KIDNEY DISEASE: <60mL/MIN/1.73 SQ METERS KIDNEY FAILURE: <15mL/MIN/1.73 SQ METERS THIS TEST SHOULD ONLY BE USED FOR PATIENTS 18 YEARS OF AGE AND OLDER. Performed By: #### 2 30610 #### [facility],[address] [place] [address] 70043 Glucose [Mass/Vol] 78 mg/dL Normal 74 - 106 [facility] Comment on above: Performed By: #### 2 12991 #### [facility],[address] [place] [address] 13416 Potassium [Moles/Vol] 4.3 mmol/L Normal 3.5 - 5.1 [facility] Comment on above: Performed By: #### 2 00889 #### [facility],[address] [place] [address] 44747 Sodium [Moles/Vol] 139 mmol/L Normal 136 - 145 [facility] Comment on above: Performed By: #### 2 58482 #### [facility],[address] [place] [address] 78699 Urea nitrogen [Mass/Vol] 24 mg/dL High 7 - 18 [facility] Comment on above: Performed By: #### 2 71135 #### [facility],[address] [place] [address] 05521 URINE CULTURE [CCL]on 2023 Bacteria identified Cx Nom (U) URCUL See Results Below See Below CULTURE, URINE NORMAL UROGENITAL CHRIS 50,000-<100,000 CFU/ml Normal urogenital chris SOURCE: Urine (Nonspecific) [facility] [address] [place] [address] Sukhjinder Fregoso III, M.D. [id number] SEND TO IC NO Normal [facility] Comment on above: Performed By: #### 2 35068 #### [facility],[address] [place] [address] 33055 BMP with eGFRon 12-30-2023 AGE 73 years Normal [facility] Comment on above: Performed By: #### 2 02074 #### [facility],[address] [place] [address] 34907 Anion gap [Moles/Vol] 14 mmol/L Normal 10 - 20 [facility] Comment on above: Performed By: #### 2 80756 #### [facility],[address] [place] [address] 25675 BMP with eGFR Normal [facility] Comment on above: Result Comment: BASI C METABOLIC PANEL Performed By: #### 2 51757 #### [facility],[address] [place] [address] 17240 Calcium [Mass/Vol] 10.2 mg/dL High 8.5 - 10.1 [facility] Comment on above: Performed By: #### 2 64836 #### [facility],[address] [place], [place] [id number] Chloride [Moles/Vol] 103 mmol/L Normal 98 - 107 [facility] Comment on above: Performed By: #### 2 97658 #### [facility],[address] [place] [address] CO2 [Moles/Vol] 25.5 mmol/L Normal 21.0 - 32.0 [facility] Comment on above: Performed By: #### 2 74802 #### [facility],[address] [place] [address] Creatinine [Mass/Vol] 1.46 mg/dL High 0.55 - 1.02 [facility] Comment on above: Performed By: #### 2 60484 #### [facility],[address] [place] [address] eGFR 35 ML/MINUTE Low 60 - 999 [facility] Comment on above: Performed By: #### 2 59875 #### [facility],[address] [place] [address] eGFR(AA) 43 ML/MINUTE Low 60 - 999 [facility] Comment on above: Result Comment: ACCO RDING TO THE NATIONAL KIDNEY DISEASE EDUCATION PROGRAM(NKDE), A NORMAL eGFR IS A VALUE GREATER THAN OR EQUAL TO 60 ML/MIN/1.73 SQ METERS. CHRONIC KIDNEY DISEASE: <60mL/MIN/1.73 SQ METERS KIDNEY FAILURE: <15mL/MIN/1.73 SQ METERS THIS TEST SHOULD ONLY BE USED FOR PATIENTS 18 YEARS OF AGE AND OLDER. Performed By: #### 2 11155 #### [facility],[address] [place] [address] Glucose [Mass/Vol] 116 mg/dL High 74 - 106 [facility] Comment on above: Performed By: #### 2 35594 #### [facility],[address] [place] [address] 76251 Potassium [Moles/Vol] 4.0 mmol/L Normal 3.5 - 5.1 [facility] Comment on above: Performed By: #### 2 67544 #### [facility],[address] [place] [address] 36953 Sodium [Moles/Vol] 138 mmol/L Normal 136 - 145 [facility] Comment on above: Performed By: #### 2 09796 #### [facility],[address] [place] [address] 79093 Urea nitrogen [Mass/Vol] 25 mg/dL High 7 - 18 [facility] Comment on above: Performed By: #### 2 21482 #### [facility],[address] [place] [address] 60858 CBC + DIFFon 12-30-2023 Baso # 0.07 x10EE3/UL Normal 0.00 - 0.10 [facility] Comment on above: Performed By: #### 2 57485 #### [facility],[address] [place] [address] 16791 Basophils/100 WBC (Bld) 0.5 % Normal 0.0 - 2.0 [facility] Comment on above: Performed By: #### 2 91860 #### [facility],[address] [place] [address] 77675 CBC + DIFF Normal [facility] Comment on above: Result Comment: CBC- COMPLETE BLOOD COUNT Performed By: #### 2 43988 #### [facility],[address] [place] [address] 75783 EO # 0.68 x10EE3/UL High 0.00 - 0.50 [facility] Comment on above: Performed By: #### 2 05320 #### [facility],[address] [place] [address] 71565 Eosinophils/100 WBC (Bld) 4.6 % Normal 0.0 - 7.0 [facility] Comment on above: Performed By: #### 2 03365 #### [facility],[address] [place], [place] [id number] Erythrocyte distribution width (RBC) [Ratio] 14.4 % Normal 12.0 - 15.6 [facility] Comment on above: Performed By: #### 2 60253 #### [facility],[address] [place] [address] Hematocrit (Bld) [Volume fraction] 41.9 % Normal 34.0 - 46.0 [facility] Comment on above: Performed By: #### 2 52904 #### [facility],[address] [place] [address] Hemoglobin (Bld) [Mass/Vol] 13.5 g/dL Normal 12.0 - 16.0 [facility] Comment on above: Performed By: #### 2 69744 #### [facility],[address] [place] [address] Lymph # 3.38 x10EE3/UL High 0.80 - 2.80 [facility] Comment on above: Performed By: #### 2 04429 #### [facility],[address] [place] [address] Lymphocytes/100 WBC (Bld) 22.7 % Normal 20.0 - 45.0 [facility] Comment on above: Performed By: #### 2 06993 #### [facility],[address] [place], [place] [id number] MANUAL DIFF N/A Normal [facility] Comment on above: Performed By: #### 2 61760 #### [facility],[address] [place], [place] [id number] MCH (RBC) [Entitic mass] 27 pg Normal 27 - 33 [facility] Comment on above: Performed By: #### 2 04073 #### [facility],[address] [place], [place] [id number] MCHC 32 X10 3 Normal 32 - 36 [facility] Comment on above: Performed By: #### 2 12731 #### [facility],[address] [place] [address] 89493 MCV (RBC) [Entitic vol] 83 fL Normal 80 - 99 [facility] Comment on above: Performed By: #### 2 21645 #### [facility],[address] [place] [address] 20473 [place] # 1.09 x10EE3/UL High 0.20 - 1.00 [facility] Comment on above: Performed By: #### 2 26760 #### [facility],[address] [place] [address] 34592 MONOS % 7.3 % Normal 0.0 - 10.0 [facility] Comment on above: Performed By: #### 2 18429 #### [facility],[address] [place] [address] 92982 Morphology Corey (Bld) [Interp] N/A Normal [facility] Comment on above: Performed By: #### 2 55578 #### [facility],[address] [place] [address] 48947 Neut # 9.69 x10EE3/UL High 1.50 - 7.10 [facility] Comment on above: Performed By: #### 2 71467 #### [facility],[address] [place] [address] 67537 Neutrophils/100 WBC (Bld) 65.0 % Normal 46.0 - 76.0 [facility] Comment on above: Performed By: #### 2 02740 #### [facility],[address] [place] [address] 72898 PLATELET 384 x10EE3/UL Normal 150 - 450 [facility] Comment on above: Performed By: #### 2 25127 #### [facility],[address] [place] [address] 02754 Platelet mean volume (Bld) [Entitic vol] 8.0 fL Normal 6.6 - 10.5 [facility] Comment on above: Result Comment: AUTO MATED DIFFERENTIAL Performed By: #### 2 36094 #### [facility],[address] [place] [address] 22412 RBC 5.07 x 10EE6/UL Normal 4.10 - 5.30 [facility] Comment on above: Performed By: #### 2 43984 #### [facility],[address] [place] [address] 96261 WBC 14.9 x 10EE3/UL High 4.5 - 10.8 [facility] Comment on above: Performed By: #### 2 08571 #### [facility],[address] [place], [place] [id number] HEMOGLOBIN A1C (POM)on 12-29 Glucose [Mass/Vol] 243.2 mg/dL High 0.0 - 0.0 [facility] Comment on above: Result Comment: BLDo HEMOGLOBIN A1C REFERENCE RANGESBLDo Suggested Diagnosis HbA1c(%) HbA1C (mmol/mol Diabetic >/=6.5 >/=48 Prediabetes 5.7 - 6.4 39 - 47 Normal <5.7 <39 Performed By: #### 2 80227 #### [facility],[address] [place], [place] [id number] HbA1c (Bld) [Mass fraction] 10.1 % High 0.0 - 6.5 [facility] Comment on above: Performed By: #### 2 88504 #### [facility],[address] [place] [address] 84831 URINALYSISon 12-30-2023 Amorphous NONE Normal [facility] Comment on above: Performed By: #### 2 86070 #### [facility],[address] [place] [address] 77316 Bacteria 1+ Normal [facility] Comment on above: Performed By: #### 2 68788 #### [facility],[address] [place] [address] 15080 Bilirubin Ql (U) Negative Normal NORMAL: NEGATIVE [facility] Comment on above: Performed By: #### 2 56054 #### [facility],[address] [place] [address] 99398 Casts NONE Normal [facility] Comment on above: Performed By: #### 2 14630 #### [facility],[address] [place] [address] 68557 Clarity (U) very cloudy Normal NORMAL: CLEAR [facility] Comment on above: Performed By: #### 2 94822 #### [facility],[address] [place] [address] 10603 Color (U) yellow Normal NORMAL: YELLOW [facility] Comment on above: Performed By: #### 2 02520 #### [facility],[address] [place] [address] 34934 Crystals LM Nom (Urine sed) NONE Normal [facility] Comment on above: Performed By: #### 2 22873 #### [facility],[address] [place] [address] 54938 Epi Cells NONE Normal [facility] Comment on above: Performed By: #### 2 98511 #### [facility],[address] [place] [address] 12200 Glucose Ql (U) NORM Normal NORMAL: NORMAL [facility] Comment on above: Performed By: #### 2 22582 #### [facility],[address] [place] [address] 80780 Hemoglobin Ql (U) 250 Abnormal NORMAL: NEGATIVE [facility] Comment on above: Performed By: #### 2 46625 #### [facility],[address] [place] [address] 67986 Ketone Negative Normal NORMAL: NEGATIVE [facility] Comment on above: Performed By: #### 2 59727 #### [facility],[address] [place] [address] 24661 Leukocytes 500 Abnormal NORMAL: NEGATIVE [facility] Comment on above: Performed By: #### 2 93165 #### [facility],[address] [place] [address] 87413 Mucous NONE Normal [facility] Comment on above: Performed By: #### 2 96410 #### [facility],[address] [place] [address] 59355 Nitrite Ql (U) Negative Normal NORMAL: NEGATIVE [facility] Comment on above: Performed By: #### 2 65970 #### [facility],[address] [place] [address] pH (U) 6 [pH] Normal NORMAL: 5.0-8.0 [facility] Comment on above: Performed By: #### 2 89198 #### [facility],[address] [place] [address] Protein Ql (U) 100 Abnormal NORMAL: NEGATIVE [facility] Comment on above: Performed By: #### 2 92839 #### [facility],[address] [place] [address] Rbc 5-10 Normal 0-3/hpf [facility] Comment on above: Performed By: #### 2 54338 #### [facility],[address] [place] [address] Sp [place] 1.015 Normal NORMAL: 1.010-1.030 [facility] Comment on above: Performed By: #### 2 27436 #### [facility],[address] [place] [address] Specimen Type Clean catch Normal [facility] Comment on above: Performed By: #### 2 52754 #### [facility],[address] [place] [address] Urinalysis dipstick W Reflex Microscopic panel (U) SEE BELOW Normal [facility] Comment on above: Result Comment: MICR OSCOPIC Performed By: #### 2 61642 #### [facility],[address] [place], [place] [address] Urobilinog NORM Normal NORMAL: NORMAL [facility] Comment on above: Performed By: #### 2 43022 #### [facility],[address] [place] [address] WBC (U) [#/Vol] /uL Normal 0-5/hpf [facility] Comment on above: Performed By: #### 2 34375 #### [facility],[address] [place] [address] Yeast NONE Normal [facility] Comment on above: Performed By: #### 2 95569 #### [facility],[address] [place] [address] Basic metabolic 2000 panelon 12-17-2023 Anion gap [Moles/Vol] 16 mmol/L 10 - 2 0 mmol/L [facility] Calcium [Mass/Vol] 9.8 mg/dL 8.4 - 10. 2 mg/dL [facility] Chloride [Moles/Vol] 103 mmol/L 98 - 10 8 mmol/L [facility] Creatinine [Mass/Vol] 1.16 mg/dL 0.60 - 1.10 mg/dL [facility] GFR/1.73 sq M.predicted CKD-EPI (S/P/Bld) [Vol rate/Area] 51 Low - PINF [facility] Comment on above: Estimated GFR was ca lculated using the 2020 CKD-EPI creatinine equation. Glucose [Mass/Vol] 174 mg/dL High 65 - 99 mg/dL [facility] HCO3 [Moles/Vol] 22 mmol/L 21 - 32 mmol/L [facility] Interpretation and review of laboratory results Abnormal [facility] Potassium [Moles/Vol] 3.4 mmol/L Low 3.5 - 5.1 mmol/L [facility] Sodium [Moles/Vol] 138 mmol/L 135 - 145 mmol/L [facility] Urea nitrogen [Mass/Vol] 23 mg/dL 8 - 25 mg/dL [facility] Urea nitrogen/Creatinine [Mass ratio] 19.8 mg/mg 10.0 - 20.0 [facility] has implemented the eGFR calculation approach that does not have a coefficient for race that conforms to the NKF-ASN Task Force Recommendations. [facility] Glucose (Bld) [Mass/Vol]on 0 12-17-2023 Glucose [Mass/Vol] 163 mg/dL High 65 - 99 mg/dL [facility] Interpretation and review of laboratory results Abnormal [facility] Glucose [Mass/Vol] 142 mg/dL High 65 - 99 mg/dL [facility] Interpretation and review of laboratory results Abnormal [facility] Glucose [Mass/Vol] 118 mg/dL High 65 - 99 mg/dL [facility] Interpretation and review of laboratory results Abnormal [facility] Glucose (Bld) [Mass/Vol]on 0 12-16-2023 Glucose [Mass/Vol] 367 mg/dL High 65 - 99 mg/dL [facility] Interpretation and review of laboratory results Abnormal [facility] Glucose [Mass/Vol] 168 mg/dL High 65 - 99 mg/dL [facility] Interpretation and review of laboratory results Abnormal [facility] Glucose [Mass/Vol] 126 mg/dL High 65 - 99 mg/dL [facility] Interpretation and review of laboratory results Abnormal [facility] Bacteria identified Aer cx N om (Unsp spec)Ordered By: Brenda Mcgowan on 12-15-2023 [facility] Bacteria identified Cx Nom ( Bld)on 12-15-2023 Interpretation and review of laboratory results Normal [facility] Basic metabolic 2000 panelon 12-15-2023 Anion gap [Moles/Vol] 15 mmol/L 10 - 2 0 mmol/L [facility] Calcium [Mass/Vol] 9.4 mg/dL 8.4 - 10. 2 mg/dL [facility] Chloride [Moles/Vol] 103 mmol/L 98 - 10 8 mmol/L [facility] Creatinine [Mass/Vol] 1.30 mg/dL High 0.60 - 1.10 mg/dL [facility] GFR/1.73 sq M.predicted CKD-EPI (S/P/Bld) [Vol rate/Area] 44 Low - PINF [facility] Comment on above: Estimated GFR was ca lculated using the 2020 CKD-EPI creatinine equation. Glucose [Mass/Vol] 184 mg/dL High 65 - 99 mg/dL [facility] HCO3 [Moles/Vol] 24 mmol/L 21 - 32 mmol/L [facility] Interpretation and review of laboratory results Abnormal [facility] Potassium [Moles/Vol] 3.7 mmol/L 3.5 - 5.1 mmol/L [facility] Sodium [Moles/Vol] 138 mmol/L 135 - 145 mmol/L [facility] Urea nitrogen [Mass/Vol] 23 mg/dL 8 - 25 mg/dL [facility] Urea nitrogen/Creatinine [Mass ratio] 17.7 mg/mg 10.0 - 20.0 [facility] has implemented the eGFR calculation approach that does not have a coefficient for race that conforms to the NKF-ASN Task Force Recommendations. [facility] CBC panel Auto (Bld)on 12-14 Erythrocyte distribution width (RBC) [Entitic vol] 13.6 % 11.6 - 14.8 % [facility] Hematocrit (Bld) [Volume fraction] 38.2 % 36.0 - 46.0 % [facility] Hemoglobin (Bld) [Mass/Vol] 12.0 g/dL 12.0 - 16.0 g/dL [facility] Interpretation and review of laboratory results Abnormal [facility] MCH (RBC) [Entitic mass] 27.0 pg 26.0 - 34.0 pg [facility] MCHC (RBC) [Mass/Vol] 31.4 g/dL 31.0 - 37.0 g/dL [facility] MCV (RBC) [Entitic vol] 86.0 fL 80.0 - 100.0 fL [facility] Nucleated RBC (Bld) [#/Vol] 0.00 10*3/uL [facility] Nucleated RBC/100 WBC (Bld) [Ratio] 0.0 % [facility] Platelet mean volume (Bld) [Entitic vol] 9.3 fL Low 9.4 - 12.4 fL [facility] Platelets (Bld) [#/Vol] 366 10*3/uL [facility] RBC (Bld) [#/Vol] 4.44 10*6/uL [facility] WBC (Bld) [#/Vol] 12.44 10*3/uL High [facility] Glucose (Bld) [Mass/Vol]on 0 12-15-2023 Glucose [Mass/Vol] 196 mg/dL High 65 - 99 mg/dL [facility] Interpretation and review of laboratory results Abnormal [facility] Glucose [Mass/Vol] 283 mg/dL High 65 - 99 mg/dL [facility] Interpretation and review of laboratory results Abnormal [facility] Glucose [Mass/Vol] 207 mg/dL High 65 - 99 mg/dL [facility] Interpretation and review of laboratory results Abnormal [facility] Glucose [Mass/Vol] 207 mg/dL High 65 - 99 mg/dL [facility] Interpretation and review of laboratory results Abnormal [facility] Glucose [Mass/Vol] 179 mg/dL High 65 - 99 mg/dL [facility] Interpretation and review of laboratory results Abnormal [facility] Laboratory - Microbiology an d Antimicrobial susceptibilityon 12-15-2023 Bacteria identified Cx Nom (Bld) [facility] I Von 12-15-2023 1. Moderate generalized brain atrophy. The ventricles are moderately dilated. The ventricular dilatation is likely the result of brain atrophy. No evidence of obstructive hydrocephalus. 2. No acute infarction. Chronic microvascular ischemic changes are stable. 3. No pathologic enhancement. No masses. [facility] Workstation ID: [id number] transOMIC EXAMINATION: MR BRAIN WITH AND WITHOUT CONTRAST [...] air cells on the right. Nasopharynx normal. [employer] Special[employer] spaces are normal. Moderate generalized brain atrophy. No mass effect. No shift of midline. Moderate chronic microvascular ischemic changes in the cerebral white matter. No diffusion restriction. No evidence of acute ischemic infarction. The ventricles are moderately dilated, likely the result of brain atrophy. No hemorrhagic lesion. No pathologic enhancement within the brain. No brain mass. transOMIC Axel Hernandez MD - 12/15/2023 EXAMINATION: MR [...] air cells on the right. Nasopharynx normal. [employer] Quality Specialist spaces are normal. Moderate generalized brain atrophy. [...] enhancement. No masses. [employer] Workstation ID: [id number] [facility] MR Lumbar spine WO and W [...] changes in the lumbar spine are stable. [facility] Workstation ID: [id number] transOMIC EXAMINATION: MR LUMBAR SPINE WITH AND WITHOUT [...] sacral stress fracture. No suspicious osseous lesions. [employer] [facility] Axel Hernandez MD - 12/15/2023 EXAMINATION: [...] R42 Dizziness G91.2 NPH (normal pressure hydrocephalus) ([facility]) R11.2 Nausea and vomiting, unspecified vomiting type [...] changes in the lumbar spine are stable. [facility] Workstation ID: [id number] [facility] MR Lumbar spine WO and W con trast IVOrdered By: Axel Hernandez on 12-15-2023 [facility] Work Phone: MR Thoracic spine WO and [...] or enhancement in the thoracic spinal cord. [facility] Workstation ID: [id number] transOMIC EXAMINATION: MR THORACIC SPINE WITH AND WITHOUT [...] pathologic enhancement in the thoracic spinal cord. [employer] [facility] Axel Hernandez MD - 12/15/2023 EXAMINATION: [...] or enhancement in the thoracic spinal cord. [facility] Workstation ID: [id number] [facility] Magnesium Levelon 12-15-2023 Magnesium [Mass/Vol] 2.0 mg/dL 1.6 - 2 .4 mg/dL [facility] Magnesium [Mass/Vol]on 12-14 Interpretation and review of laboratory results Normal [facility] No Panel Informationon 12-14 [facility] Urine Aerobic CultureOrdered By: Brenda Mcgowan on 12-15-2023 Bacteria identified Aer cx Nom (Unsp spec) No Growth (<1,000 CFU/mL) [facility] Basic metabolic 2000 panelon 12-14-2023 Anion gap [Moles/Vol] 17 mmol/L 10 - 2 0 mmol/L [facility] Calcium [Mass/Vol] 9.3 mg/dL 8.4 - 10. 2 mg/dL [facility] Chloride [Moles/Vol] 103 mmol/L 98 - 10 8 mmol/L [facility] Creatinine [Mass/Vol] 1.13 mg/dL 0.60 - 1.10 mg/dL [facility] GFR/1.73 sq M.predicted CKD-EPI (S/P/Bld) [Vol rate/Area] 52 Low - PINF [facility] Comment on above: Estimated GFR was ca lculated using the 2020 CKD-EPI creatinine equation. Glucose [Mass/Vol] 149 mg/dL High 65 - 99 mg/dL [facility] HCO3 [Moles/Vol] 23 mmol/L 21 - 32 mmol/L [facility] Interpretation and review of laboratory results Abnormal [facility] Potassium [Moles/Vol] 3.4 mmol/L Low 3.5 - 5.1 mmol/L [facility] Sodium [Moles/Vol] 140 mmol/L 135 - 145 mmol/L [facility] Urea nitrogen [Mass/Vol] 19 mg/dL 8 - 25 mg/dL [facility] Urea nitrogen/Creatinine [Mass ratio] 16.8 mg/mg 10.0 - 20.0 [facility] has implemented the eGFR calculation approach that does not have a coefficient for race that conforms to the NKF-ASN Task Force Recommendations. [facility] CBC panel Auto (Bld)on 12-13 Erythrocyte distribution width (RBC) [Entitic vol] 13.4 % 11.6 - 14.8 % [facility] Hematocrit (Bld) [Volume fraction] 36.9 % 36.0 - 46.0 % [facility] Hemoglobin (Bld) [Mass/Vol] 11.8 g/dL Low 12.0 - 16.0 g/dL [facility] Interpretation and review of laboratory results Abnormal [facility] MCH (RBC) [Entitic mass] 27.0 pg 26.0 - 34.0 pg [facility] MCHC (RBC) [Mass/Vol] 32.0 g/dL 31.0 - 37.0 g/dL [facility] MCV (RBC) [Entitic vol] 84.4 fL 80.0 - 100.0 fL [facility] Nucleated RBC (Bld) [#/Vol] 0.00 10*3/uL [facility] Nucleated RBC/100 WBC (Bld) [Ratio] 0.0 % [facility] Platelet mean volume (Bld) [Entitic vol] 9.1 fL Low 9.4 - 12.4 fL [facility] Platelets (Bld) [#/Vol] 354 10*3/uL [facility] RBC (Bld) [#/Vol] 4.37 10*6/uL [facility] WBC (Bld) [#/Vol] 11.91 10*3/uL High [facility] Glucose (Bld) [Mass/Vol]on 0 12-14-2023 Glucose [Mass/Vol] 243 mg/dL High 65 - 99 mg/dL [facility] Interpretation and review of laboratory results Abnormal [facility] Glucose [Mass/Vol] 277 mg/dL High 65 - 99 mg/dL [facility] Interpretation and review of laboratory results Abnormal [facility] Glucose [Mass/Vol] 231 mg/dL High 65 - 99 mg/dL [facility] Interpretation and review of laboratory results Abnormal [facility] Glucose [Mass/Vol] 200 mg/dL High 65 - 99 mg/dL [facility] Interpretation and review of laboratory results Abnormal [facility] Glucose [Mass/Vol] 180 mg/dL High 65 - 99 mg/dL [facility] Interpretation and review of laboratory results Abnormal [facility] MR BRAIN WITH AND WITHOUT CO NTRASTon [...] air cells on the right. Nasopharynx normal. [employer] Specialist spaces are normal. Moderate generalized brain atrophy. [...] 14, 2023 1:39:11 PM EDT Transcribed by: GET BAGLEY on WedDec 14, 2023 2:25:16 PM EDT Finalized by: AXEL HERNANDEZ on WedDec 15, 2023 7:01:18 AM EDT [facility] Comment on above: Order Comment: Injur y/Trauma or Illness?:Illness/Other How long have you had these symptoms (acute/chronic)?:Unknown Reason for exam?:headaches with n/v for one month: hydrocephalus seen on ct scan: back pain for over one year: no recent injury: no hx of cancer: Type of Exam?:Unknown Additional signs and symptoms?:n MR Brain WO and W contrast I Von 12-14-2023 Radiology Study observation (narrative) [facility] MR Lumbar spine WO and W con trast Kevan 12-14-2023 Radiology Study observation (narrative) [facility] MR Thoracic spine WO and W c ontrast Kevan 12-14-2023 Radiology Study observation (narrative) [facility] Magnesium Levelon 12-14-2023 Magnesium [Mass/Vol] 2.0 mg/dL 1.6 - 2 .4 mg/dL [facility] Magnesium [Mass/Vol]on 12-13 Interpretation and review of laboratory results Normal [facility] No Panel Informationon 12-13 [facility] Glucose (Bld) [Mass/Vol]on 0 12-13-2023 Glucose [Mass/Vol] 139 mg/dL High 65 - 99 mg/dL [facility] Interpretation and review of laboratory results Abnormal [facility] Glucose [Mass/Vol] 349 mg/dL High 65 - 99 mg/dL [facility] Interpretation and review of laboratory results Abnormal [facility] Glucose [Mass/Vol] 226 mg/dL High 65 - 99 mg/dL [facility] Interpretation and review of laboratory results Abnormal [facility] Glucose [Mass/Vol] 237 mg/dL High 65 - 99 mg/dL [facility] Interpretation and review of laboratory results Abnormal [facility] Glucose [Mass/Vol] 146 mg/dL High 65 - 99 mg/dL [facility] Interpretation and review of laboratory results Abnormal [facility] Glucose (Bld) [Mass/Vol]on 12-12-2023 Glucose [Mass/Vol] 220 mg/dL High 65 - 99 mg/dL [facility] Interpretation and review of laboratory results Abnormal [facility] Glucose [Mass/Vol] 373 mg/dL High 65 - 99 mg/dL [facility] Interpretation and review of laboratory results Abnormal [facility] Glucose [Mass/Vol] 304 mg/dL High 65 - 99 mg/dL [facility] Interpretation and review of laboratory results Abnormal [facility] Glucose [Mass/Vol] 212 mg/dL High 65 - 99 mg/dL [facility] Interpretation and review of laboratory results Abnormal [facility] Potassium Levelon 12-12-2023 Potassium [Moles/Vol] 3.7 mmol/L 3.5 - 5.1 mmol/L [facility] Potassium [Moles/Vol]on Interpretation and review of laboratory results Normal [facility] CBC panel Auto (Bld)on 12-10 Erythrocyte distribution width (RBC) [Entitic vol] 13.4 % 11.6 - 14.8 % [facility] Hematocrit (Bld) [Volume fraction] 36.6 % 36.0 - 46.0 % [facility] Hemoglobin (Bld) [Mass/Vol] 11.6 g/dL Low 12.0 - 16.0 g/dL [facility] Interpretation and review of laboratory results Abnormal [facility] MCH (RBC) [Entitic mass] 27.0 pg 26.0 - 34.0 pg [facility] MCHC (RBC) [Mass/Vol] 31.7 g/dL 31.0 - 37.0 g/dL [facility] MCV (RBC) [Entitic vol] 85.1 fL 80.0 - 100.0 fL [facility] Nucleated RBC (Bld) [#/Vol] 0.00 10*3/uL [facility] Nucleated RBC/100 WBC (Bld) [Ratio] 0.0 % [facility] Platelet mean volume (Bld) [Entitic vol] 9.3 fL Low 9.4 - 12.4 fL [facility] Platelets (Bld) [#/Vol] 333 10*3/uL [facility] RBC (Bld) [#/Vol] 4.30 10*6/uL [facility] WBC (Bld) [#/Vol] 11.81 10*3/uL High [facility] Comprehensive metabolic 2000 panelOrdered By: Mikayla Lopez on 12-11-2023 Albumin [Mass/Vol] 3.1 g/dL Low 3.2 - 5.2 g/dL [facility] ALP [Catalytic activity/Vol] 125 U/L 40 - 150 U/L [facility] ALT [Catalytic activity/Vol] 8 U/L 0-35 U/L [facility] Anion gap [Moles/Vol] 15 mmol/L 10 - 2 0 mmol/L [facility] AST [Catalytic activity/Vol] 13 U/L 0-35 U/L [facility] Bilirubin [Mass/Vol] 0.3 mg/dL 0.0 - 1 .3 mg/dL [facility] Calcium [Mass/Vol] 8.8 mg/dL 8.4 - 10. 2 mg/dL [facility] Chloride [Moles/Vol] 103 mmol/L 98 - 10 8 mmol/L [facility] Creatinine [Mass/Vol] 1.17 mg/dL 0.60 - 1.10 mg/dL [facility] GFR/1.73 sq M.predicted CKD-EPI (S/P/Bld) [Vol rate/Area] 50 Low - PINF [facility] Comment on above: Estimated GFR was ca lculated using the 2020 CKD-EPI creatinine equation. Glucose [Mass/Vol] 181 mg/dL High 65 - 99 mg/dL [facility] HCO3 [Moles/Vol] 24 mmol/L 21 - 32 mmol/L [facility] Interpretation and review of laboratory results Abnormal [facility] Potassium [Moles/Vol] 2.9 mmol/L Low 3.5 - 5.1 mmol/L [facility] Protein [Mass/Vol] 6.6 g/dL 6.0 - 8.0 g/dL [facility] Sodium [Moles/Vol] 139 mmol/L 135 - 145 mmol/L [facility] Urea nitrogen [Mass/Vol] 15 mg/dL 8 - 25 mg/dL [facility] Urea nitrogen/Creatinine [Mass ratio] 12.8 mg/mg 10.0 - 20.0 [facility] has implemented the eGFR calculation approach that does not have a coefficient for race that conforms to the NKF-ASN Task Force Recommendations. [facility] EKG 12-leadon 12-11-2023 Atrial Rate 101 BPM [facility] P Hoagland 52 degrees [facility] P-R Interval 184 ms [facility] Q-T Interval 358 ms [facility] QRS Duration 64 ms [facility] QTC Calculation (Bezet) 464 ms [facility] -29 degrees [facility] T Hoagland 33 degrees [facility] Ventricular Rate 101 BPM [facility] th Sinus tachycardia Inferior infarct , age undetermined Abnormal ECG ECG Cart Interpretation see physician note for interpretation. Confirmed by Yanet Hitchcock ([id number]) on 12/11/2023 7:08:29 PM MUSE [facility] Glucose (Bld) [Mass/Vol]on 0 12-11-2023 Glucose [Mass/Vol] 284 mg/dL High 65 - 99 mg/dL [facility] Interpretation and review of laboratory results Abnormal [facility] Glucose [Mass/Vol] 269 mg/dL High 65 - 99 mg/dL [facility] Interpretation and review of laboratory results Abnormal [facility] Glucose [Mass/Vol] 256 mg/dL High 65 - 99 mg/dL [facility] Interpretation and review of laboratory results Abnormal [facility] Glucose [Mass/Vol] 176 mg/dL High 65 - 99 mg/dL [facility] Interpretation and review of laboratory results Abnormal [facility] CBC Auto Differentialon - Basophils (Bld) [#/Vol] 0.07 10*3/uL [facility] Basophils/100 WBC (Bld) 0.5 % [facility] Eosinophils (Bld) [#/Vol] 0.42 10*3/uL [facility] Eosinophils/100 WBC (Bld) 3.0 % [facility] Erythrocyte distribution width (RBC) [Entitic vol] 13.4 % 11.6 - 14.8 % [facility] Hematocrit (Bld) [Volume fraction] 40.8 % 36.0 - 46.0 % [facility] Hemoglobin (Bld) [Mass/Vol] 13.1 g/dL 12.0 - 16.0 g/dL [facility] Immature granulocytes (Bld) [#/Vol] 0.19 10*3/uL [facility] Immature granulocytes/100 WBC (Bld) 1.40 % [facility] Comment on above: The IG parameter is the percentage of metamyelocytes, myelocytes and promyelocytes. An immature granulocyte count (IG) of 1% or more suggests the possibility of infection, an IG count of 3% is very likely related to an infection. Interpretation and review of laboratory results Abnormal [facility] Lymphocytes (Bld) [#/Vol] 2.10 10*3/uL [facility] Lymphocytes/100 WBC (Bld) 15.1 % [facility] MCH (RBC) [Entitic mass] 27.2 pg 26.0 - 34.0 pg [facility] MCHC (RBC) [Mass/Vol] 32.1 g/dL 31.0 - 37.0 g/dL [facility] MCV (RBC) [Entitic vol] 84.6 fL 80.0 - 100.0 fL [facility] Monocytes (Bld) [#/Vol] 0.98 10*3/uL High [facility] Monocytes/100 WBC (Bld) 7.1 % [facility] Neutrophils (Bld) [#/Vol] 10.11 10*3/uL High [facility] Neutrophils/100 WBC (Bld) 72.9 % [facility] Nucleated RBC (Bld) [#/Vol] 0.00 10*3/uL [facility] Nucleated RBC/100 WBC (Bld) [Ratio] 0.0 % [facility] Platelet mean volume (Bld) [Entitic vol] 9.2 fL Low 9.4 - 12.4 fL [facility] Platelets (Bld) [#/Vol] 368 10*3/uL [facility] RBC (Bld) [#/Vol] 4.82 10*6/uL [facility] WBC (Bld) [#/Vol] 13.87 10*3/uL [facility] CT HEAD OR BRAIN WITHOUT CON [...] on WedDec 10, 2023 2:30:34 PM EDT [facility] Comment on above: Order Comment: Injur y/Trauma or Illness?:Illness/Other How long have you had these symptoms (acute/chronic)?:Acute Reason for exam?:light headed Type of Exam?:Initial Additional signs and symptoms?:n/a CT Head WO contraston 2023 No acute intracranial process. No substantial change since 10/22/2023. Workstation ID: [id number] transOMIC EXAMINATION: CT HEAD OR BRAIN WITHOUT CONTRAST [...] sinuses and mastoid air cells are well-aerated. [facility] Elisha, Maxime Hitchcock, DO - 12/10/2023 EXAMINATION: CT HEAD OR [...] substantial change since 10/22/2023. Workstation ID: [id number] [facility] Radiology Study observation (narrative) CT Head WO contrastOrdered B y: Maxime Tello on 12-10-2023 [facility] Work Phone: Comprehensive metabolic 2000 panelon 12-10-2023 Albumin [Mass/Vol] 3.6 g/dL 3.2 - 5.2 g/dL [facility] ALP [Catalytic activity/Vol] 148 U/L 40 - 150 U/L [facility] ALT [Catalytic activity/Vol] 19 U/L 0-35 U/L [facility] Anion gap [Moles/Vol] 16 mmol/L 10 - 2 0 mmol/L [facility] AST [Catalytic activity/Vol] 23 U/L 0-35 U/L [facility] Bilirubin [Mass/Vol] 0.2 mg/dL 0.0 - 1 .3 mg/dL [facility] Calcium [Mass/Vol] 9.2 mg/dL 8.4 - 10. 2 mg/dL [facility] Chloride [Moles/Vol] 100 mmol/L 98 - 10 8 mmol/L [facility] Creatinine [Mass/Vol] 1.47 mg/dL High 0.60 - 1.10 mg/dL [facility] GFR/1.73 sq M.predicted CKD-EPI (S/P/Bld) [Vol rate/Area] 38 Low - PINF [facility] Comment on above: Estimated GFR was ca lculated using the 2020 CKD-EPI creatinine equation. Glucose [Mass/Vol] 245 mg/dL High 65 - 99 mg/dL [facility] HCO3 [Moles/Vol] 27 mmol/L 21 - 32 mmol/L [facility] Interpretation and review of laboratory results Abnormal [facility] Potassium [Moles/Vol] 3.4 mmol/L Low 3.5 - 5.1 mmol/L [facility] Protein [Mass/Vol] 7.8 g/dL 6.0 - 8.0 g/dL [facility] Sodium [Moles/Vol] 140 mmol/L 135 - 145 mmol/L [facility] Urea nitrogen [Mass/Vol] 16 mg/dL 8 - 25 mg/dL [facility] Urea nitrogen/Creatinine [Mass ratio] 10.9 mg/mg 10.0 - 20.0 [facility] has implemented the eGFR calculation approach that does not have a coefficient for race that conforms to the NKF-ASN Task Force Recommendations. [facility] EKGon 12-10-2023 [facility] Glucose (Bld) [Mass/Vol]on 0 12-10-2023 Glucose [Mass/Vol] 382 mg/dL High 65 - 99 mg/dL [facility] Interpretation and review of laboratory results Abnormal [facility] Lactate [Moles/Vol]on 2023 Interpretation and review of laboratory results Normal [facility] Lactic Acid, Plasmaon 2023 Lactate [Moles/Vol] 1.4 mmol/L 0.6 - 2. 0 mmol/L [facility] Lipaseon 12-10-2023 Lipase [Catalytic activity/Vol] 24 U/L 15 - 65 U/L [facility] Lipase [Catalytic activity/V ol]on 12-10-2023 Interpretation and review of laboratory results Normal [facility] MR LUMBAR SPINE WITH AND WIT HOUT [...] changes in the lumbar spine are stable. [facility] Workstation ID: [id number] Dictated by: AXEL HERNANDEZ on WedDec 14, 2023 2:10:19 PM EDT Transcribed by: TUNG EPPS on WedDec 14, 2023 2:38:03 PM EDT Finalized by: AXEL HERNANDEZ on WedDec 15, 2023 6:57:16 AM EDT Normal [facility] Comment on above: Order Comment: Injur y/Trauma [...] or enhancement in the thoracic spinal cord. [facility] Workstation ID: [id number] Dictated by: AXEL HERNANDEZ on WedDec 14, 2023 1:59:34 PM EDT Transcribed by: TUNG EPPS on WedDec 14, 2023 2:33:20 PM EDT Finalized by: AXEL HERNANDEZ on WedDec 15, 2023 7:00:46 AM EDT Normal [facility] Comment on above: Order Comment: Injur y/Trauma or Illness?:Illness/Other How long have you had these symptoms (acute/chronic)?:Unknown Reason for exam?:headaches with n/v for one month: hydrocephalus seen on ct scan: back pain for over one year: no recent injury: no hx of cancer: Type of Exam?:Unknown Additional signs and symptoms?:n No Panel Informationon 12-09 Extra Tube Hold for add-ons. [facility] Comment on above: Auto resulted. [facility] Troponin x 2 (Now and Repeat in 3 hours)Ordered By: Eun Lama on 12-10-2023 Interp Troponin T Delta Change Probable non-acute cardiac injury or late presentation of acute injury. [facility] Interpretation and review of laboratory results Abnormal [facility] Troponin T 39 ng/L Critically high NINF - 14 ng/L [facility] Troponin T Delta % -15 % <20% of Baseline Troponin [facility] Troponin x 2 (Now and Repeat in 3 hours)Ordered By: Aylin Zamudio on 12-10-2023 Interpretation and review of laboratory results Abnormal [facility] Troponin T 46 ng/L Critically high NINF - 14 ng/L [facility] Troponin T Interpretation Possible acute cardiac injury. [facility] UrinalysisOrdered By: Latesha See on 12-10-2023 Bacteria Auto Ql (U) Many Abnormal None Se en /hpf [facility] Bilirubin Ql (U) Negative Negative [facility] th Clarity Refractometry automated (U) Cloudy Abnormal Clear [facility] Color (U) Yellow Colorless, Yellow [facility] Glucose Auto test strip (U) [Mass/Vol] Negative Negative mg/dL [facility] Hemoglobin Auto test strip Ql (U) Small Abnormal Negative [facility] Interpretation and review of laboratory results Abnormal [facility] Ketones (U) [Mass/Vol] Negative Negat paco mg/dL [facility] Leukocyte clumps Auto (Urine sed) [#/Area] Many Abnormal None Seen /hpf [facility] Leukocyte esterase Auto test strip Ql (U) Large Abnormal Negative [facility] Nitrite Auto test strip Ql (U) Negative Negative [facility] pH (U) 6.5 [pH] 5.0 - 7.0 [facility] Protein (U) [Mass/Vol] 30 mg/dL Abnormal Negative [facility] Comment on above: False positive resul ts may occur in urines with large amounts of hemoglobin, pH greater than 8.0, contrast medium, or disinfectants including ammonium compounds. RBC Auto (Urine sed) [#/Area] 115 High [facility] Specific gravity (U) [Rel density] 1.015 1.005 - 1.025 [facility] Urobilinogen (U) [Mass/Vol] mg/dL NINF - 2.0 mg/dL [facility] WBC Auto (Urine sed) [#/Area] High [facility] Microscopic examinat ion is performed on all urinalysis samples and only positive findings are reported. The test for blood on the chemical analytic portion of urinalysis may also be positive due to hemoglobinuria and myoglobinuria and if red blood cells are present they are quantified by microscopic examination. [facility] XR CHEST PA/APon 12-10-2023 XR CHEST PA/AP [...] WedDec 10, 2023 2:17:53 PM EDT Normal [facility] Comment on above: Order Comment: Injur y/Trauma or Illness?:Injury/Trauma How long have you had these symptoms (acute/chronic)?:Acute Reason for exam?:L-1/ L-3 KYPHOPLASTY Type of Exam?:Subsequent/Follow-up Mechanism of injury?:FALL Fluoro time in minutes:6.43 Fluoro dose in mGy?:557.2 XR Chest PA and Abdomen APon 12-10-2023 1. No acute cardiopulmonary disease. Workstation ID: [id number] transOMIC EXAMINATION: XR CHEST PA/AP 12/10/2023 2:00 pm [...] is a left pectoral cardiac pacemaker device. [employer]IS Roosevelt Olivo MD - 12/10/2023 EXAMINATION: XR [...] No acute cardiopulmonary disease. Workstation ID: [id number] [facility] Radiology Study observation (narrative) [facility] X[facility] Chest PA and Abdomen APOr dered By: Roosevelt Olivo on 12-10-2023 [facility] Work Phone: BMP with eGFRon 11-24-2023 AGE 73 years Normal [facility] Comment on above: Performed By: #### 2 [id number] #### [facility],[address] [place] [address] Anion gap [Moles/Vol] 13 mmol/L Normal 10 - 20 [facility] Comment on above: Performed By: #### 2 [id number] #### [facility],[address] [place] [address] 51673 BMP with eGFR Normal [facility] Comment on above: Result Comment: BASI C METABOLIC PANEL Performed By: #### 2 [id number] #### [facility],[address] [place] [address]31 Calcium [Mass/Vol] 9.1 mg/dL Normal 8.5 - 10.1 [facility] Comment on above: Performed By: #### 2 [id number] #### [facility],[address] [place] [address]53 Chloride [Moles/Vol] 105 mmol/L Normal 98 - 107 [facility] Comment on above: Performed By: #### 2 [id number] #### [facility],[address] [place] [address]3616 CO2 [Moles/Vol] 21.7 mmol/L Normal 21.0 - 32.0 [facility] Comment on above: Performed By: #### 2 [id number] #### [facility],[address] [place] [address] 34842 Creatinine [Mass/Vol] 1.29 mg/dL High 0.55 - 1.02 [facility] Comment on above: Performed By: #### 2 [id number] #### [place] [address],[place] [address] eGFR 41 ML/MINUTE Low 60 - 999 [facility] Comment on above: Performed By: #### 2 [id number] #### [facility],[address] [place] [address]73 eGFR(AA) 49 ML/MINUTE Low 60 - 999 [facility] Comment on above: Result Comment: ACCO RDING TO THE NATIONAL KIDNEY DISEASE EDUCATION PROGRAM(NKDE), A NORMAL eGFR IS A VALUE GREATER THAN OR EQUAL TO 60 ML/MIN/1.73 SQ METERS. CHRONIC KIDNEY DISEASE: <60mL/MIN/1.73 SQ METERS KIDNEY FAILURE: <15mL/MIN/1.73 SQ METERS THIS TEST SHOULD ONLY BE USED FOR PATIENTS 18 YEARS OF AGE AND OLDER. Performed By: #### 2 [id number] #### [facility],[address] [place] [address] 28859 Glucose [Mass/Vol] 230 mg/dL High 74 - 106 [facility] Comment on above: Performed By: #### 2 [id number] #### [facility],[address] [place] [address] 21843 Potassium [Moles/Vol] 4.4 mmol/L Normal 3.5 - 5.1 [facility] Comment on above: Performed By: #### 2 [id number] #### [facility],[address] [place] [address]169 Sodium [Moles/Vol] 135 mmol/L Low 136 - 145 [facility] Comment on above: Performed By: #### 2 [id number] #### [facility],[address] [place] [address] 59584 Urea nitrogen [Mass/Vol] 14 mg/dL Normal 7 - 18 [facility] Comment on above: Performed By: #### 2 [id number] #### [facility],[address] [place] [address] 93205 CBC + DIFFon 11-24-2023 Baso # 0.04 x10EE3/UL Normal 0.00 - 0.10 [facility] Comment on above: Performed By: #### 2 [id number] #### [facility],[address] [place] [address] Basophils/100 WBC (Bld) 0.3 % Normal 0.0 - 2.0 [facility] Comment on above: Performed By: #### 2 [id number] #### [facility],[address] [place] [address] CBC + DIFF Normal [facility] Comment on above: Result Comment: CBC- COMPLETE BLOOD COUNT Performed By: #### 2 [id number] #### [place] [address] EO # 0.59 x10EE3/UL High 0.00 - 0.50 [facility] Comment on above: Performed By: #### 2 [id number] #### [place] [address] Eosinophils/100 WBC (Bld) 4.3 % Normal 0.0 - 7.0 [facility] Comment on above: Performed By: #### 2 [id number] #### [place] [address] Erythrocyte distribution width (RBC) [Ratio] 14.0 % Normal 12.0 - 15.6 [facility] Comment on above: Performed By: #### 2 [id number] #### [facility],[address] [place] [address] Hematocrit (Bld) [Volume fraction] 37.9 % Normal 34.0 - 46.0 [facility] Comment on above: Performed By: #### 2 41189 #### [place] [address] Hemoglobin (Bld) [Mass/Vol] 12.7 g/dL Normal 12.0 - 16.0 [facility] Comment on above: Performed By: #### 2 40819 #### [address],[place] [address] Lymph # 2.62 x10EE3/UL Normal 0.80 - 2.80 [facility] Comment on above: Performed By: #### 2 76155 #### [facility],[address] [place] [address] 44152 Lymphocytes/100 WBC (Bld) 18.8 % Low 20.0 - 45.0 [facility] Comment on above: Performed By: #### 2 56645 #### [facility],[address] [place] [address] 60607 MANUAL DIFF N/A Normal [facility] Comment on above: Performed By: #### 2 55987 #### [facility],[address] [place] [address] 97482 MCH (RBC) [Entitic mass] 28 pg Normal 27 - 33 [facility] Comment on above: Performed By: #### 2 06729 #### [facility],[address] [place] [address] 84757 MCHC 34 X10 3 Normal 32 - 36 [facility] Comment on above: Performed By: #### 2 56890 #### [facility],[address] [place] [address] 77540 MCV (RBC) [Entitic vol] 83 fL Normal 80 - 99 [facility] Comment on above: Performed By: #### 2 73970 #### [facility],[address] [place] [address] 44884 [place] # 1.06 x10EE3/UL High 0.20 - 1.00 [facility] Comment on above: Performed By: #### 2 08126 #### [facility],[address] [place] [address] 17370 MONOS % 7.6 % Normal 0.0 - 10.0 [facility] Comment on above: Performed By: #### 2 71713 #### [facility],[address] [place] [address] Morphology Corey (Bld) [Interp] N/A Normal [facility] Comment on above: Performed By: #### 2 06930 #### [facility],[address] [place] [address] 83169 Neut # 9.65 x10EE3/UL High 1.50 - 7.10 [facility] Comment on above: Performed By: #### 2 36555 #### [facility],[address] [place] [address] Neutrophils/100 WBC (Bld) 69.1 % Normal 46.0 - 76.0 [facility] Comment on above: Performed By: #### 2 83531 #### [facility],[address] [place], [place] [id number] PLATELET 328 x10EE3/UL Normal 150 - 450 [facility] Comment on above: Performed By: #### 2 61903 #### [facility],[address] [place] [address] Platelet mean volume (Bld) [Entitic vol] 8.1 fL Normal 6.6 - 10.5 [facility] Comment on above: Result Comment: AUTO MATED DIFFERENTIAL Performed By: #### 2 24897 #### [facility],[address] [place] [address] 57551 RBC 4.54 x 10EE6/UL Normal 4.10 - 5.30 [facility] Comment on above: Performed By: #### 2 65979 #### [facility],[address] [place] [address] 74865 WBC 14.0 x 10EE3/UL High 4.5 - 10.8 [facility] Comment on above: Performed By: #### 2 66388 #### [facility],[address] [place] [address] 63507 BMP with eGFRon 11-23-2023 AGE 73 years Normal [facility] Comment on above: Performed By: #### 2 60060 #### [facility],[address] [place] [address] 49151 Anion gap [Moles/Vol] 12 mmol/L Normal 10 - 20 [facility] Comment on above: Performed By: #### 2 83256 #### [facility],[address] [place] [address] 28043 BMP with eGFR Normal [facility] Comment on above: Result Comment: BASI C METABOLIC PANEL Performed By: #### 2 50166 #### [facility],[address] [place] [address] 09098 Calcium [Mass/Vol] 8.9 mg/dL Normal 8.5 - 10.1 [facility] Comment on above: Performed By: #### 2 64252 #### [facility],[address] [place] [address] 52463 Chloride [Moles/Vol] 106 mmol/L Normal 98 - 107 [facility] Comment on above: Performed By: #### 2 89719 #### [facility],[address] [place] [address] 62252 CO2 [Moles/Vol] 23.1 mmol/L Normal 21.0 - 32.0 [facility] Comment on above: Performed By: #### 2 52674 #### [facility],[address] [place] [address] 88387 Creatinine [Mass/Vol] 1.30 mg/dL High 0.55 - 1.02 [facility] Comment on above: Performed By: #### 2 69891 #### [facility],[address] [place] [address] 63321 eGFR 40 ML/MINUTE Low 60 - 999 [facility] Comment on above: Performed By: #### 2 34602 #### [facility],[address] [place] [address] 11573 eGFR(AA) 49 ML/MINUTE Low 60 - 999 [facility] Comment on above: Result Comment: ACCO RDING TO THE NATIONAL KIDNEY DISEASE EDUCATION PROGRAM(NKDE), A NORMAL eGFR IS A VALUE GREATER THAN OR EQUAL TO 60 ML/MIN/1.73 SQ METERS. CHRONIC KIDNEY DISEASE: <60mL/MIN/1.73 SQ METERS KIDNEY FAILURE: <15mL/MIN/1.73 SQ METERS THIS TEST SHOULD ONLY BE USED FOR PATIENTS 18 YEARS OF AGE AND OLDER. Performed By: #### 2 02727 #### [address] [address] Glucose [Mass/Vol] 139 mg/dL High 74 - 106 [facility] Comment on above: Performed By: #### 2 94675 #### [address] [address] Potassium [Moles/Vol] 4.0 mmol/L Normal 3.5 - 5.1 [facility] Comment on above: Performed By: #### 2 86232 #### [address] [address] Sodium [Moles/Vol] 137 mmol/L Normal 136 - 145 [facility] Comment on above: Performed By: #### 2 01969 #### [address] [address] Urea nitrogen [Mass/Vol] 22 mg/dL High 7 - 18 [facility] Comment on above: Performed By: #### 2 24854 #### [address] [address] CBC + DIFFon 11-23-2023 Baso # 0.05 x10EE3/UL Normal 0.00 - 0.10 [facility] Comment on above: Performed By: #### 2 37045 #### [address] [address] Basophils/100 WBC (Bld) 0.4 % Normal 0.0 - 2.0 [facility] Comment on above: Performed By: #### 2 79117 #### [place] [address],[place] [address] CBC + DIFF Normal [facility] Comment on above: Result Comment: CBC- COMPLETE BLOOD COUNT Performed By: #### 2 78925 #### [facility],[address] [place] [address] 05615 EO # 0.40 x10EE3/UL Normal 0.00 - 0.50 [facility] Comment on above: Performed By: #### 2 20980 #### [facility],[address] [place] [address] 32954 Eosinophils/100 WBC (Bld) 2.8 % Normal 0.0 - 7.0 [facility] Comment on above: Performed By: #### 2 55614 #### [facility],[address] [place] [address] 35135 Erythrocyte distribution width (RBC) [Ratio] 14.0 % Normal 12.0 - 15.6 [facility] Comment on above: Performed By: #### 2 29001 #### [facility],[address] [place] [address] 36971 Hematocrit (Bld) [Volume fraction] 37.3 % Normal 34.0 - 46.0 [facility] Comment on above: Performed By: #### 2 99270 #### [facility],[address] [place] [address] 94276 Hemoglobin (Bld) [Mass/Vol] 12.6 g/dL Normal 12.0 - 16.0 [facility] Comment on above: Performed By: #### 2 37420 #### [facility],[address] [place] [address] 10257 Lymph # 2.99 x10EE3/UL High 0.80 - 2.80 [facility] Comment on above: Performed By: #### 2 84919 #### [facility],[address] [place] [address] 91184 Lymphocytes/100 WBC (Bld) 20.9 % Normal 20.0 - 45.0 [facility] Comment on above: Performed By: #### 2 22972 #### [facility],[address] [place] [address] 46830 MANUAL DIFF N/A Normal [facility] Comment on above: Performed By: #### 2 38991 #### [facility],[address] [place] [address] MCH (RBC) [Entitic mass] 28 pg Normal 27 - 33 [facility] Comment on above: Performed By: #### 2 31877 #### [facility],[address] [place] [address] MCHC 34 X10 3 Normal 32 - 36 [facility] Comment on above: Performed By: #### 2 12640 #### [facility],[address] [place] [address] MCV (RBC) [Entitic vol] 83 fL Normal 80 - 99 [facility] Comment on above: Performed By: #### 2 36382 #### [facility],[address] [place] [address] [place] # 0.86 x10EE3/UL Normal 0.20 - 1.00 [facility] Comment on above: Performed By: #### 2 82025 #### [facility],[address] [place] [address] MONOS % 6.0 % Normal 0.0 - 10.0 [facility] Comment on above: Performed By: #### 2 89302 #### [facility],[address] [place] [address] 60411 Morphology Corey (Bld) [Interp] N/A Normal [facility] Comment on above: Performed By: #### 2 47579 #### [facility],[address] [place] [address] Neut # 10.03 x10EE3/UL High 1.50 - 7.10 [facility] Comment on above: Performed By: #### 2 36750 #### [facility],[address] [place] [address] 03492 Neutrophils/100 WBC (Bld) 70.0 % Normal 46.0 - 76.0 [facility] Comment on above: Performed By: #### 2 60928 #### [facility],[address] [place], [place] [address] PLATELET 298 x10EE3/UL Normal 150 - 450 [facility] Comment on above: Performed By: #### 2 40713 #### [facility],[address] [place] [address] Platelet mean volume (Bld) [Entitic vol] 7.9 fL Normal 6.6 - 10.5 [facility] Comment on above: Result Comment: AUTO MATED DIFFERENTIAL Performed By: #### 2 09366 #### [place] [id number] RBC 4.47 x 10EE6/UL Normal 4.10 - 5.30 [facility] Comment on above: Performed By: #### 2 92368 #### [place] [id number] WBC 14.3 x 10EE3/UL High 4.5 - 10.8 [facility] Comment on above: Performed By: #### 2 04077 #### [facility],[address] [place], [place] [address] HEMOGLOBIN A1C (POM)on 11-22 Glucose [Mass/Vol] 286.2 mg/dL High 0.0 - 0.0 [facility] Comment on above: Result Comment: BLDo HEMOGLOBIN A1C REFERENCE RANGESBLDo Suggested Diagnosis HbA1c(%) HbA1C (mmol/mol Diabetic >/=6.5 >/=48 Prediabetes 5.7 - 6.4 39 - 47 Normal <5.7 <39 Performed By: #### 2 53394 #### [facility],[address],[place] [address] HbA1c (Bld) [Mass fraction] 11.6 % High 0.0 - 6.5 [facility] Comment on above: Performed By: #### 2 60293 #### [facility],[address] [place], [place] [address] CBC + DIFFon 11-22-2023 Baso # 0.05 x10EE3/UL Normal 0.00 - 0.10 [facility] Comment on above: Performed By: #### 2 55108 #### [facility],[address] [place] [address] 15800 Basophils/100 WBC (Bld) 0.3 % Normal 0.0 - 2.0 [facility] Comment on above: Performed By: #### 2 73844 #### [facility],[address] [place] [address] CBC + DIFF Normal [facility] Comment on above: Result Comment: CBC- COMPLETE BLOOD COUNT Performed By: #### 2 13497 #### [facility],[address] [place] [address] 55979 EO # 0.49 x10EE3/UL Normal 0.00 - 0.50 [facility] Comment on above: Performed By: #### 2 19533 #### [facility],[address] [place] [address] 17328 Eosinophils/100 WBC (Bld) 3.3 % Normal 0.0 - 7.0 [facility] Comment on above: Performed By: #### 2 58676 #### [facility],[address] [place] [address] 40724 Erythrocyte distribution width (RBC) [Ratio] 14.1 % Normal 12.0 - 15.6 [facility] Comment on above: Performed By: #### 2 96819 #### [facility],[address] [place] [address] 15469 Hematocrit (Bld) [Volume fraction] 42.4 % Normal 34.0 - 46.0 [facility] Comment on above: Performed By: #### 2 50386 #### [facility],[address] [place] [address] 02862 Hemoglobin (Bld) [Mass/Vol] 14.4 g/dL Normal 12.0 - 16.0 [facility] Comment on above: Performed By: #### 2 19984 #### [facility],[address] [place], [place] [address] Lymph # 2.59 x10EE3/UL Normal 0.80 - 2.80 [facility] Comment on above: Performed By: #### 2 05508 #### [facility],[address] [place], [place] [address] Lymphocytes/100 WBC (Bld) 17.5 % Low 20.0 - 45.0 [facility] Comment on above: Performed By: #### 2 15420 #### [facility],[address] [place], [place] [address] MANUAL DIFF N/A Normal [facility] Comment on above: Performed By: #### 2 08191 #### [facility],[address] [place], [place] [address] MCH (RBC) [Entitic mass] 28 pg Normal 27 - 33 [facility] Comment on above: Performed By: #### 2 46671 #### [facility],[address] [place] [address] 36909 MCHC 34 X10 3 Normal 32 - 36 [facility] Comment on above: Performed By: #### 2 25587 #### [facility],[address] [place] [address] 97975 MCV (RBC) [Entitic vol] 83 fL Normal 80 - 99 [facility] Comment on above: Performed By: #### 2 26225 #### [facility],[address] [place] [address] 00647 [place] # 0.96 x10EE3/UL Normal 0.20 - 1.00 [facility] Comment on above: Performed By: #### 2 93025 #### [facility],[address] [place] [address] 66260 MONOS % 6.5 % Normal 0.0 - 10.0 [facility] Comment on above: Performed By: #### 2 48318 #### [facility],[address] [place] [address] 78007 Morphology Corey (Bld) [Interp] N/A Normal [facility] Comment on above: Performed By: #### 2 97060 #### [facility],[address] [place] [address] 20650 Neut # 10.73 x10EE3/UL High 1.50 - 7.10 [facility] Comment on above: Performed By: #### 2 45033 #### [facility],[address] [place] [address] 66346 Neutrophils/100 WBC (Bld) 72.4 % Normal 46.0 - 76.0 [facility] Comment on above: Performed By: #### 2 47954 #### [facility],[address] [place] [address] 29712 PLATELET 308 x10EE3/UL Normal 150 - 450 [facility] Comment on above: Performed By: #### 2 64552 #### [facility],[address] [place] [address] 56975 Platelet mean volume (Bld) [Entitic vol] 7.8 fL Normal 6.6 - 10.5 [facility] Comment on above: Result Comment: AUTO MATED DIFFERENTIAL Performed By: #### 2 12460 #### [facility],[address] [place] [address] 23234 RBC 5.13 x 10EE6/UL Normal 4.10 - 5.30 [facility] Comment on above: Performed By: #### 2 75591 #### [facility],[address] [place] [address] 05882 WBC 14.8 x 10EE3/UL High 4.5 - 10.8 [facility] Comment on above: Performed By: #### 2 74690 #### [facility],[address] [place] [address] 63794 CHEST 1 VIEWon 11-22-2023 CHEST [address] [address] Patient: KRISTEN MANN Phone#: : 1950 Age: 73 Gender: F Pt. Type: ER Account: [id number] Location: 052 Ordering: EVETTE GANT Exam Date: 11/22/2023/18:40 Family Phys: OLIVIER DAVE Charge Code: [id number] Physician: Park Order #: [id number] Dose#: PROCEDURE: X-RAY CHEST 1 VIEW COMPARISON: [facility], CT, ABDOMEN/PELVIS W CON, 11/18/2023, 2:36. [facility], XR, CHEST 1 VIEW, 06/07/2022, 14:10. INDICATIONS: [...] Hugo MD on 11/22/2023 at 19:02 Normal [facility] CMP with eGFRon 11-22-2023 AGE 73 years Normal [facility] Comment on above: Performed By: #### 2 54410 #### [facility],[address] [place] [address] 98438 Albumin [Mass/Vol] 3.3 g/dL Low 3.4 - 5.0 [facility] Comment on above: Performed By: #### 2 00456 #### [facility],[address] [place] [address] Albumin/Globulin [Mass ratio] 0.6 {ratio} Low 0.9 - 1.6 [facility] Comment on above: Performed By: #### 2 40478 #### [facility],[address] [place] [address] 69880 ALK PHOS 157 U/L High 46 - 116 [facility] Comment on above: Performed By: #### 2 72393 #### [facility],[address] [place] [address] 78621 ALT [Catalytic activity/Vol] 12 U/L Low 16 - 63 [facility] Comment on above: Performed By: #### 2 42498 #### [facility],[address] [place], [place] [address] Anion gap [Moles/Vol] 16 mmol/L Normal 10 - 20 [facility] Comment on above: Performed By: #### 2 97479 #### [facility],[address] [place] [address] 22921 AST [Catalytic activity/Vol] 10 U/L Low 13 - 39 [facility] Comment on above: Performed By: #### 2 97522 #### [facility],[address] [place] [address] 92040 B/C RATIO 17 ratio Normal 0 - 30 [facility] Comment on above: Performed By: #### 2 22852 #### [facility],[address] [place] [address] 26220 Bilirubin [Mass/Vol] 0.3 mg/dL Normal 0.2 - 1.0 [facility] Comment on above: Performed By: #### 2 47175 #### [facility],[address] [place] [address] 09621 Calcium [Mass/Vol] 9.7 mg/dL Normal 8.5 - 10.1 [facility] Comment on above: Performed By: #### 2 32709 #### [facility],[address] [place], [place] [address] Chloride [Moles/Vol] 101 mmol/L Normal 98 - 107 [facility] Comment on above: Performed By: #### 2 31500 #### [facility],[address] [place] [address] 56978 CMP with eGFR Normal [facility] Comment on above: Result Comment: COMP REHENSIVE METABOLIC PANEL Performed By: #### 2 92998 #### [facility],[address] [place], [place] [address] CO2 [Moles/Vol] 25.3 mmol/L Normal 21.0 - 32.0 [facility] Comment on above: Performed By: #### 2 11794 #### [facility],[address] [place], [place] [address] Creatinine [Mass/Vol] 1.52 mg/dL High 0.55 - 1.02 [facility] Comment on above: Performed By: #### 2 26638 #### [facility],[address] [place] [address] 17551 eGFR 34 ML/MINUTE Low 60 - 999 [facility] Comment on above: Performed By: #### 2 48162 #### [facility],[address] [place] [address] 53861 eGFR(AA) 41 ML/MINUTE Low 60 - 999 [facility] Comment on above: Result Comment: ACCO RDING TO THE NATIONAL KIDNEY DISEASE EDUCATION PROGRAM(NKDE), A NORMAL eGFR IS A VALUE GREATER THAN OR EQUAL TO 60 ML/MIN/1.73 SQ METERS. CHRONIC KIDNEY DISEASE: <60mL/MIN/1.73 SQ METERS KIDNEY FAILURE: <15mL/MIN/1.73 SQ METERS THIS TEST SHOULD ONLY BE USED FOR PATIENTS 18 YEARS OF AGE AND OLDER. Performed By: #### 2 69856 #### [facility],[address] [place] [address] 45218 Globulin (S) [Mass/Vol] 5.2 g/dL High 1.5 - 3.8 [facility] Comment on above: Performed By: #### 2 13438 #### [facility],[address] [place] [address] 16497 Glucose [Mass/Vol] 211 mg/dL High 74 - 106 [facility] Comment on above: Performed By: #### 2 20330 #### [facility],[address] [place] [address] 52578 Potassium [Moles/Vol] 4.3 mmol/L Normal 3.5 - 5.1 [facility] Comment on above: Performed By: #### 2 10250 #### [facility],[address] [place] [address] 54355 Protein [Mass/Vol] 8.5 g/dL High 6.4 - 8.2 [facility] Comment on above: Performed By: #### 2 57929 #### [facility],[address] [place] [address] 58200 Sodium [Moles/Vol] 138 mmol/L Normal 136 - 145 [facility] Comment on above: Performed By: #### 2 10787 #### [facility],[address] [place] [address] 81487 Urea nitrogen [Mass/Vol] 26 mg/dL High 7 - 18 [facility] Comment on above: Performed By: #### 2 48418 #### [facility],[address] [place] [address] BRAIN W/O CONTRASTon 03- CT BRAIN W/O CONTRAST [place] [address] Patient: KRISTEN MANN Phone#: : 1950 Age: 73 Gender: F Pt. Type: ER Account: [id number] Location: [facility] Ordering: EVETTE GANT Exam Date: 11/22/2023/18:44 Family Phys: OLIVIER ACOSTA Charge Code: [id number] Physician: Park Order #: [id number] Dose#: 52.30 PROCEDURE: CT BRAIN WITHOUT CONTRAST COMPARISON: [facility], CT, BRAIN W/O CON, 03/15/2019, 15:35. INDICATIONS: [...] no significant mucosal thickening or fluid. ORBITS: [place] ocular lenses are absent. OTHER: Atherosclerotic calcifications [...] 73 Gender: F Pt. Type: ER Account: [id number] Location: [facility] Ordering: EVETTE GANT Exam Date: 11/22/2023/18:44 Family Phys: OLIVIER ACOSTA Charge Code: [id number] Physician: Park Order #: [id number] Dose#: 52.30 4. Small vessel ischemic disease Dictated by: Rose Mary Hugo MD on 11/22/2023 at 19:02 Approved by: Rose Mary Hugo MD on 11/22/2023 at 19:10 Normal [facility] LIPASEon 11-22-2023 Lipase [Catalytic activity/Vol] 85.0 U/L High 15.0 - 78.0 [facility] Comment on above: Result Comment: *PLE ASE NOTE THAT RANGES FOR LIPASE HAVE CHANGED OF 09/03/23 DUE TO AN ASSAY UPDATE BY THE COPY MACHINE OPERATOR.THE NEW ASSAY RANGE IS 6-250 U/L, WITH A REFERENCE RANGE OF 16-77 U/L. Performed By: #### 2 57277 #### [facility],[address] [place], [place] [address] TROPONIN I, HIGH SENSITIVITY on 11-22-2023 HS TROPONIN 6.9 pg/mL Normal 0.0 - 51.4 [facility] Comment on above: Performed By: #### 2 64639 #### [facility],[address] [place] [address] 64821 URINALYSISon 11-22-2023 Amorphous NONE Normal [facility] Comment on above: Performed By: #### 2 41335 #### [facility],[address] [place] [address] 71496 Bacteria 1+ Normal [facility] Comment on above: Performed By: #### 2 49555 #### [facility],[address] [place] [address] 70259 Bilirubin Ql (U) Negative Normal NORMAL: NEGATIVE [facility] Comment on above: Performed By: #### 2 94876 #### [facility],[address] [place] [address] 09147 Casts NONE Normal [facility] Comment on above: Performed By: #### 2 75547 #### [facility],[address] [place] [address] 91482 Clarity (U) very cloudy Normal NORMAL: CLEAR [facility] Comment on above: Performed By: #### 2 63591 #### [facility],[address] [place] [address] 06917 Color (U) yellow Normal NORMAL: YELLOW [facility] Comment on above: Performed By: #### 2 18828 #### [facility],[address] [place] [address] 87229 Crystals LM Nom (Urine sed) NONE Normal [facility] Comment on above: Performed By: #### 2 90140 #### [facility],[address] [place] [address] 69601 Epi Cells MODERATE Normal [facility] Comment on above: Performed By: #### 2 85834 #### [facility],[address] [place] [address] 71734 Glucose Ql (U) 50 Abnormal NORMAL: NORMAL [facility] Comment on above: Performed By: #### 2 40568 #### [facility],[address] [place] [address] 28683 Hemoglobin Ql (U) 25 Abnormal NORMAL: NEGATIVE [facility] Comment on above: Performed By: #### 2 65714 #### [facility],[address] [place] [address] 49888 Ketone Negative Normal NORMAL: NEGATIVE [facility] Comment on above: Performed By: #### 2 19274 #### [facility],[address] [place] [address] 99315 Leukocytes 500 Abnormal NORMAL: NEGATIVE [facility] Comment on above: Performed By: #### 2 86831 #### [facility],[address] [place] [address] 28920 Mucous NONE Normal [facility] Comment on above: Performed By: #### 2 48981 #### [facility],[address] [place] [address] 55450 Nitrite Ql (U) Negative Normal NORMAL: NEGATIVE [facility] Comment on above: Performed By: #### 2 46817 #### [facility],[address] [place] [address] 38828 pH (U) 6 [pH] Normal NORMAL: 5.0-8.0 [facility] Comment on above: Performed By: #### 2 82730 #### [facility],[address] [place] [address] Protein Ql (U) 30 Abnormal NORMAL: NEGATIVE [facility] Comment on above: Performed By: #### 2 55353 #### [facility],[address] [place] [address] Rbc 0-5 Normal 0-3/hpf [facility] Comment on above: Performed By: #### 2 47965 #### [facility],[address] [place] [address] Sp [place] 1.015 Normal NORMAL: 1.010-1.030 [facility] Comment on above: Performed By: #### 2 49549 #### [facility],[address] [place] [address] Specimen Type Clean catch Normal [facility] Comment on above: Performed By: #### 2 38847 #### [facility],[address] [place], [place] [address] Urinalysis dipstick W Reflex Microscopic panel (U) SEE BELOW Normal [facility] Comment on above: Result Comment: MICR OSCOPIC Performed By: #### 2 90920 #### [facility],[address] [place] [address] Urobilinog NORM Normal NORMAL: NORMAL [facility] Comment on above: Performed By: #### 2 55358 #### [facility],[address] [place] [address] 32597 WBC (U) [#/Vol] /uL Normal 0-5/hpf [facility] Comment on above: Performed By: #### 2 48215 #### [facility],[address] [place] [address] Yeast 3+ Normal [facility] Comment on above: Performed By: #### 2 85318 #### [facility],[address] [place] [address] 51304 URINE CULTURE [CCL]on 2023 Bacteria identified Cx Nom (U) URCUL See Results Below See Below CULTURE, URINE NORMAL UROGENITAL CHRIS 50,000-<100,000 CFU/ml Normal urogenital chris SOURCE: URINE [facility] [address] [place] [address] Sukhjinder Fregoso III, M.D. [id number] [facility] Comment on above: Performed By: #### 2 62464 #### [address] [address] URINE CULTURE [CCL]on 2023 Bacteria identified Cx [...] and its performance characteristics determined by the [facility]'s [facility] [place] ([facility]). It has not been cleared or approved by the FDA. -[facility] is regulated under CLIA as qualified to perform high-complexity testing. This test is used for clinical purposes. It should not be regarded as investigational or for research. SOURCE: URINE [facility] [address] [place] [address] Sukhjinder Fregoso III, M.D. [id number] SEND TO [facility] Comment on above: Performed By: #### 2 08579 #### [facility],[address] [place] [address] ABDOMEN/PELVIS Won 2023 CT ABDOMEN/PELVIS W [address] [address] Patient: KRISTEN MANN Phone#: : 1950 Age: 73 Gender: F Pt. Type: ER Account: [id number] Location: [facility] Ordering: TAD PLATA Exam Date: 11/18/2023/2:36 Family Phys: OLIVIER ARAUJONOELLE Charge Code: 555432 Physician: Park Order #: [id number] Dose#: 23.40 mGy PROCEDURE: CT ABDOMEN/PELVIS WITH CONTRAST COMPARISON: [facility], CT, ABDOMEN/PELVIS W CON, 01/03/2023, 13:29. INDICATIONS: [...] 73 Gender: F Pt. Type: ER Account: [id number] Location: [id number] Ordering: TAD PLATA Exam Date: 11/18/2023/2:36 Family Phys: OLIVIER ACOSTA Charge Code: 576279 Physician: Park Order #: [id number] Dose#: 23.40 mGy OTHER: Negative. CONCLUSION: 1. There is no evidence of acute abdominal or pelvic abnormality. Dictated by: Gini Drake MD on 11/18/2023 at 15:12 Approved by: Gini Drake MD on 11/18/2023 at 15:21 Normal [facility] URINALYSISon 11-18-2023 Amorphous NONE Normal [facility] Comment on above: Performed By: #### 2 34010 #### [facility],[address] [place] [address] Bacteria 3+ Normal [facility] Comment on above: Performed By: #### 2 80973 #### [facility],[address] [place] [address] Bilirubin Ql (U) Negative Normal NORMAL: NEGATIVE [facility] Comment on above: Performed By: #### 2 24539 #### [facility],[address] [place] [address] Casts SEE BELOW Normal [facility] Comment on above: Performed By: #### 2 89236 #### [facility],[address] [place] [address] Clarity (U) clear Normal NORMAL: CLEAR [facility] Comment on above: Performed By: #### 2 63426 #### [facility],[address] [place], [place] [address] Color (U) yellow Normal NORMAL: YELLOW [facility] Comment on above: Performed By: #### 2 29716 #### [facility],[address] [place] [address] 69390 Crystals LM Nom (Urine sed) NONE Normal [facility] Comment on above: Performed By: #### 2 35166 #### [facility],[address] [place], [place] [address] Epi Cells MODERATE Normal [facility] Comment on above: Performed By: #### 2 99601 #### [facility],[address] [place] [address] Glucose Ql (U) 50 Abnormal NORMAL: NORMAL [facility] Comment on above: Performed By: #### 2 10139 #### [facility],[address] [place], [place] [address] Hemoglobin Ql (U) Negative Normal NORMAL: NEGATIVE [facility] Comment on above: Performed By: #### 2 10830 #### [facility],[address] [place], [place] [address] Hyaline 1-5 Normal NORMAL: NONE [facility] Comment on above: Performed By: #### 2 80586 #### [facility],[address] [place] [address] 56443 Ketone 5 Abnormal NORMAL: NEGATIVE [facility] Comment on above: Performed By: #### 2 96005 #### [facility],[address] [place] [address] 58565 Leukocytes 25 Abnormal NORMAL: NEGATIVE [facility] Comment on above: Performed By: #### 2 54702 #### [facility],[address] [place] [address] 07897 Mucous 3+ Normal [facility] Comment on above: Performed By: #### 2 71971 #### [facility],[address] [place], [place] [address] Nitrite Ql (U) Negative Normal NORMAL: NEGATIVE [facility] Comment on above: Performed By: #### 2 16717 #### [facility],[address] [place] [address] pH (U) 6 [pH] Normal NORMAL: 5.0-8.0 [facility] Comment on above: Performed By: #### 2 62767 #### [facility],[address] [place] [address] Protein Ql (U) 30 Abnormal NORMAL: NEGATIVE [facility] Comment on above: Performed By: #### 2 02092 #### [facility],[address] [place] [address] Rbc NONE Normal 0-3/hpf [facility] Comment on above: Performed By: #### 2 61807 #### [facility],[address] [place] [address] Sp [place] 1.020 Normal NORMAL: 1.010-1.030 [facility] Comment on above: Performed By: #### 2 93260 #### [facility],[address] [place] [address] Specimen Type Clean catch Normal [facility] Comment on above: Performed By: #### 2 68254 #### [facility],[address] [place] [address] Urinalysis dipstick W Reflex Microscopic panel (U) SEE BELOW Normal [facility] Comment on above: Result Comment: MICR OSCOPIC Performed By: #### 2 67824 #### [facility],[address] [place] [address] Urobilinog 1 Abnormal NORMAL: NORMAL [facility] Comment on above: Performed By: #### 2 01544 #### [facility],[address] [place] [address] Wbc 6-10 Normal 0-5/hpf [facility] Comment on above: Performed By: #### 2 48212 #### [facility],[address] [place] [address] 90129 Yeast NONE Normal [facility] Comment on above: Performed By: #### 2 33298 #### [facility],[address] [place] [address] 79329 C-REACTIVE PROTEINon 024 CRP 1.20 mg/dl High 0.00 - 0.90 [facility] Comment on above: Performed By: #### 2 80479 #### [facility],[address] [place] [address] 98412 CBC + DIFFon 11-17-2023 Baso # 0.04 x10EE3/UL Normal 0.00 - 0.10 [facility] Comment on above: Performed By: #### 2 65596 #### [facility],[address] [place] [address] 40210 Basophils/100 WBC (Bld) 0.3 % Normal 0.0 - 2.0 [facility] Comment on above: Performed By: #### 2 41389 #### [facility],[address] [place] [address] 17287 CBC + DIFF Normal [facility] Comment on above: Result Comment: CBC- COMPLETE BLOOD COUNT Performed By: #### 2 30120 #### [facility],[address] [place] [address] 51883 EO # 0.40 x10EE3/UL Normal 0.00 - 0.50 [facility] Comment on above: Performed By: #### 2 32522 #### [facility],[address] [place] [address] 14573 Eosinophils/100 WBC (Bld) 2.7 % Normal 0.0 - 7.0 [facility] Comment on above: Performed By: #### 2 62766 #### [facility],[address] [place] [address] 48053 Erythrocyte distribution width (RBC) [Ratio] 14.4 % Normal 12.0 - 15.6 [facility] Comment on above: Performed By: #### 2 10982 #### [facility],[address] [place] [address] Hematocrit (Bld) [Volume fraction] 39.8 % Normal 34.0 - 46.0 [facility] Comment on above: Performed By: #### 2 30705 #### [facility],[address] [place] [address] Hemoglobin (Bld) [Mass/Vol] 13.6 g/dL Normal 12.0 - 16.0 [facility] Comment on above: Performed By: #### 2 31939 #### [facility],[address] [place] [address] Lymph # 2.54 x10EE3/UL Normal 0.80 - 2.80 [facility] Comment on above: Performed By: #### 2 46090 #### [facility],[address] [place] [address] Lymphocytes/100 WBC (Bld) 16.7 % Low 20.0 - 45.0 [facility] Comment on above: Performed By: #### 2 13521 #### [facility],[address] [place] [address] MANUAL DIFF N/A Normal [facility] Comment on above: Performed By: #### 2 88683 #### [facility],[address] [place] [address] MCH (RBC) [Entitic mass] 29 pg Normal 27 - 33 [facility] Comment on above: Performed By: #### 2 64551 #### [place] [address] MCHC 34 X10 3 Normal 32 - 36 [facility] Comment on above: Performed By: #### 2 81397 #### [facility],[address] [place], [place] [address] MCV (RBC) [Entitic vol] 84 fL Normal 80 - 99 [facility] Comment on above: Performed By: #### 2 21184 #### [place] [address] [place] # 1.09 x10EE3/UL High 0.20 - 1.00 [facility] Comment on above: Performed By: #### 2 67722 #### [place] [address] MONOS % 7.2 % Normal 0.0 - 10.0 [facility] Comment on above: Performed By: #### 2 01111 #### [place] [address] Morphology Corey (Bld) [Interp] N/A Normal [facility] Comment on above: Performed By: #### 2 97780 #### [place] [address] Neut # 11.13 x10EE3/UL High 1.50 - 7.10 [facility] Comment on above: Performed By: #### 2 62057 #### [place] [address] Neutrophils/100 WBC (Bld) 73.2 % Normal 46.0 - 76.0 [facility] Comment on above: Performed By: #### 2 43753 #### [place] [address] PLATELET 317 x10EE3/UL Normal 150 - 450 [facility] Comment on above: Performed By: #### 2 80968 #### [place] [address] Platelet mean volume (Bld) [Entitic vol] 8.0 fL Normal 6.6 - 10.5 [facility] Comment on above: Result Comment: AUTO MATED DIFFERENTIAL Performed By: #### 2 92983 #### [place] [address],[place] [address] RBC 4.77 x 10EE6/UL Normal 4.10 - 5.30 [facility] Comment on above: Performed By: #### 2 05099 #### [facility],[address] [place] [address] 26793 WBC 15.2 x 10EE3/UL High 4.5 - 10.8 [facility] Comment on above: Performed By: #### 2 33137 #### [facility],[address] [place] [address] 52371 CMP with eGFRon 11-17-2023 AGE 73 years Normal [facility] Comment on above: Performed By: #### 2 16403 #### [facility],[address] [place] [address] 20831 Albumin [Mass/Vol] 3.0 g/dL Low 3.4 - 5.0 [facility] Comment on above: Performed By: #### 2 40007 #### [facility],[address] [place] [address] 57453 Albumin/Globulin [Mass ratio] 0.6 {ratio} Low 0.9 - 1.6 [facility] Comment on above: Performed By: #### 2 00583 #### [facility],[address] [place] [address] 50219 ALK PHOS 141 U/L High 46 - 116 [facility] Comment on above: Performed By: #### 2 96351 #### [facility],[address] [place] [address] 24034 ALT [Catalytic activity/Vol] 17 U/L Normal 16 - 63 [facility] Comment on above: Performed By: #### 2 41299 #### [facility],[address] [place] [address] 25416 Anion gap [Moles/Vol] 15 mmol/L Normal 10 - 20 [facility] Comment on above: Performed By: #### 2 90769 #### [facility],[address] [place] [address] 30566 AST [Catalytic activity/Vol] 16 U/L Normal 13 - 39 [facility] Comment on above: Performed By: #### 2 19958 #### [facility],[address] [place] [address] 50713 B/C RATIO 17 ratio Normal 0 - 30 [facility] Comment on above: Performed By: #### 2 84739 #### [facility],[address] [place] [address] 85691 Bilirubin [Mass/Vol] 0.3 mg/dL Normal 0.2 - 1.0 [facility] Comment on above: Performed By: #### 2 87614 #### [facility],[address] [place] [address] 02461 Calcium [Mass/Vol] 9.4 mg/dL Normal 8.5 - 10.1 [facility] Comment on above: Performed By: #### 2 97250 #### [facility],[address] [place] [address] 12646 Chloride [Moles/Vol] 103 mmol/L Normal 98 - 107 [facility] Comment on above: Performed By: #### 2 24205 #### [facility],[address] [place] [address] 88983 CMP with eGFR Normal [facility] Comment on above: Result Comment: COMP REHENSIVE METABOLIC PANEL Performed By: #### 2 33139 #### [facility],[address] [place] [address] 36405 CO2 [Moles/Vol] 27.1 mmol/L Normal 21.0 - 32.0 [facility] Comment on above: Performed By: #### 2 54286 #### [facility],[address] [place] [address] 65177 Creatinine [Mass/Vol] 1.60 mg/dL High 0.55 - 1.02 [facility] Comment on above: Performed By: #### 2 97309 #### [facility],[address] [place] [address] 53514 eGFR 32 ML/MINUTE Low 60 - 999 [facility] Comment on above: Performed By: #### 2 36958 #### [facility],[address] [place] [address] 11228 eGFR(AA) 39 ML/MINUTE Low 60 - 999 [facility] Comment on above: Result Comment: ACCO RDING TO THE NATIONAL KIDNEY DISEASE EDUCATION PROGRAM(NKDE), A NORMAL eGFR IS A VALUE GREATER THAN OR EQUAL TO 60 ML/MIN/1.73 SQ METERS. CHRONIC KIDNEY DISEASE: <60mL/MIN/1.73 SQ METERS KIDNEY FAILURE: <15mL/MIN/1.73 SQ METERS THIS TEST SHOULD ONLY BE USED FOR PATIENTS 18 YEARS OF AGE AND OLDER. Performed By: #### 2 80679 #### [address] [address] Globulin (S) [Mass/Vol] 5.1 g/dL High 1.5 - 3.8 [facility] Comment on above: Performed By: #### 2 42279 #### [address] [address] Glucose [Mass/Vol] 193 mg/dL High 74 - 106 [facility] Comment on above: Performed By: #### 2 37358 #### [address] [address] Potassium [Moles/Vol] 4.3 mmol/L Normal 3.5 - 5.1 [facility] Comment on above: Performed By: #### 2 29366 #### [address] [address] Protein [Mass/Vol] 8.1 g/dL Normal 6.4 - 8.2 [facility] Comment on above: Performed By: #### 2 98434 #### [address] [address] Sodium [Moles/Vol] 141 mmol/L Normal 136 - 145 [facility] Comment on above: Performed By: #### 2 35513 #### [facility],[address] [place] [address] Urea nitrogen [Mass/Vol] 27 mg/dL High 7 - 18 [facility] Comment on above: Performed By: #### 2 86704 #### [facility],[address] [place] [address] LIPASEon 11-17-2023 Lipase [Catalytic activity/Vol] 34.0 U/L Normal 15.0 - 78.0 [facility] Comment on above: Result Comment: *PLE ASE NOTE THAT RANGES FOR LIPASE HAVE CHANGED OF 09/03/23 DUE TO AN ASSAY UPDATE BY THE COPY MACHINE OPERATOR.THE NEW ASSAY RANGE IS 6-250 U/L, WITH A REFERENCE RANGE OF 16-77 U/L. Performed By: #### 2 40075 #### [facility],[address] [place] [address] CBC + DIFFon 11-07-2023 Baso # 0.20 x10EE3/UL High 0.00 - 0.10 [facility] Comment on above: Performed By: #### 2 14151 #### [place] [address] Basophils/100 WBC (Bld) 1.6 % Normal 0.0 - 2.0 [facility] Comment on above: Performed By: #### 2 62505 #### [facility],[address] [place] [address] CBC + DIFF Normal [facility] Comment on above: Result Comment: CBC- COMPLETE BLOOD COUNT Performed By: #### 2 53935 #### [facility],[address] [place] [address] EO # 0.30 x10EE3/UL Normal 0.00 - 0.50 [facility] Comment on above: Performed By: #### 2 84856 #### [facility],[address] [place] [address] 06549 Eosinophils/100 WBC (Bld) 2.1 % Normal 0.0 - 7.0 [facility] Comment on above: Performed By: #### 2 93242 #### [facility],[address] [place] [address] Erythrocyte distribution width (RBC) [Ratio] 14.1 % Normal 12.0 - 15.6 [facility] Comment on above: Performed By: #### 2 07093 #### [facility],[address] [place] [address] Hematocrit (Bld) [Volume fraction] 41.9 % Normal 34.0 - 46.0 [facility] Comment on above: Performed By: #### 2 29741 #### [place] [address] Hemoglobin (Bld) [Mass/Vol] 13.6 g/dL Normal 12.0 - 16.0 [facility] Comment on above: Performed By: #### 2 64172 #### [facility],[address] [place], [place] [address] Lymph # 2.20 x10EE3/UL Normal 0.80 - 2.80 [facility] Comment on above: Performed By: #### 2 25311 #### [facility],[address] [place], [place] [address] Lymphocytes/100 WBC (Bld) 16.5 % Low 20.0 - 45.0 [facility] Comment on above: Performed By: #### 2 23021 #### [place] [id number] MANUAL DIFF N/A Normal [facility] Comment on above: Performed By: #### 2 80127 #### [place] [id number] MCH (RBC) [Entitic mass] 28 pg Normal 27 - 33 [facility] Comment on above: Performed By: #### 2 73235 #### [facility],[address] [place] [address] 50552 MCHC 33 X10 3 Normal 32 - 36 [facility] Comment on above: Performed By: #### 2 76000 #### [facility],[address] [place] [address] 28184 MCV (RBC) [Entitic vol] 85 fL Normal 80 - 99 [facility] Comment on above: Performed By: #### 2 72640 #### [facility],[address] [place] [address] 62475 [place] # 0.90 x10EE3/UL Normal 0.20 - 1.00 [facility] Comment on above: Performed By: #### 2 95215 #### [facility],[address] [place] [address] 23590 MONOS % 6.6 % Normal 0.0 - 10.0 [facility] Comment on above: Performed By: #### 2 40968 #### [facility],[address] [place] [address] 77035 Morphology Corey (Bld) [Interp] N/A Normal [facility] Comment on above: Performed By: #### 2 55674 #### [facility],[address] [place] [address] 79434 Neut # 9.60 x10EE3/UL High 1.50 - 7.10 [facility] Comment on above: Performed By: #### 2 75927 #### [facility],[address] [place] [address] 25784 Neutrophils/100 WBC (Bld) 73.2 % Normal 46.0 - 76.0 [facility] Comment on above: Performed By: #### 2 98845 #### [facility],[address] [place] [address] 33374 PLATELET 397 x10EE3/UL Normal 150 - 450 [facility] Comment on above: Performed By: #### 2 53308 #### [facility],[address] [place] [address] 88013 Platelet mean volume (Bld) [Entitic vol] 7.7 fL Normal 6.6 - 10.5 [facility] Comment on above: Result Comment: AUTO MATED DIFFERENTIAL Performed By: #### 2 59305 #### [facility],[address] [place] [address] RBC 4.91 x 10EE6/UL Normal 4.10 - 5.30 [facility] Comment on above: Performed By: #### 2 55850 #### [facility],[address] [place] [address] WBC 13.1 x 10EE3/UL High 4.5 - 10.8 [facility] Comment on above: Performed By: #### 2 82774 #### [facility],[address] [place] [address] CMP with eGFRon 11-07-2023 AGE 73 years Normal [facility] Comment on above: Performed By: #### 2 81155 #### [facility],[address] [place], [place] [address] Albumin [Mass/Vol] 3.2 g/dL Low 3.4 - 5.0 [facility] Comment on above: Performed By: #### 2 22373 #### [facility],[address] [place], [place] [address] Albumin/Globulin [Mass ratio] 0.7 {ratio} Low 0.9 - 1.6 [facility] Comment on above: Performed By: #### 2 42964 #### [facility],[address] [place], [place] [address] ALK PHOS 144 U/L High 46 - 116 [facility] Comment on above: Performed By: #### 2 87636 #### [facility],[address] [place] [address] 51897 ALT [Catalytic activity/Vol] 17 U/L Normal 16 - 63 [facility] Comment on above: Performed By: #### 2 53467 #### [facility],[address] [place] [address] 67379 Anion gap [Moles/Vol] 17 mmol/L Normal 10 - 20 [facility] Comment on above: Performed By: #### 2 14549 #### [facility],[address] [place] [address] 89797 AST [Catalytic activity/Vol] 13 U/L Normal 13 - 39 [facility] Comment on above: Performed By: #### 2 71419 #### [facility],[address] [place] [address] 02496 B/C RATIO 18 ratio Normal 0 - 30 [facility] Comment on above: Performed By: #### 2 15388 #### [facility],[address] [place] [address] 70864 Bilirubin [Mass/Vol] 0.2 mg/dL Normal 0.2 - 1.0 [facility] Comment on above: Performed By: #### 2 19048 #### [facility],[address] [place] [address] 77892 Calcium [Mass/Vol] 9.5 mg/dL Normal 8.5 - 10.1 [facility] Comment on above: Performed By: #### 2 30708 #### [facility],[address] [place] [address] 84769 Chloride [Moles/Vol] 103 mmol/L Normal 98 - 107 [facility] Comment on above: Performed By: #### 2 51768 #### [facility],[address] [place] [address] 21902 CMP with eGFR Normal [facility] Comment on above: Result Comment: COMP REHENSIVE METABOLIC PANEL Performed By: #### 2 98210 #### [facility],[address] [place] [address] 54867 CO2 [Moles/Vol] 23.5 mmol/L Normal 21.0 - 32.0 [facility] Comment on above: Performed By: #### 2 61067 #### [facility],[address] [place] [address] 80324 Creatinine [Mass/Vol] 1.53 mg/dL High 0.55 - 1.02 [facility] Comment on above: Performed By: #### 2 73904 #### [facility],[address] [place] [address] 28795 eGFR 33 ML/MINUTE Low 60 - 999 [facility] Comment on above: Performed By: #### 2 56661 #### [facility],[address] [place] [address] 32415 eGFR(AA) 41 ML/MINUTE Low 60 - 999 [facility] Comment on above: Result Comment: ACCO RDING TO THE NATIONAL KIDNEY DISEASE EDUCATION PROGRAM(NKDE), A NORMAL eGFR IS A VALUE GREATER THAN OR EQUAL TO 60 ML/MIN/1.73 SQ METERS. CHRONIC KIDNEY DISEASE: <60mL/MIN/1.73 SQ METERS KIDNEY FAILURE: <15mL/MIN/1.73 SQ METERS THIS TEST SHOULD ONLY BE USED FOR PATIENTS 18 YEARS OF AGE AND OLDER. Performed By: #### 2 03450 #### [facility],[address] [place] [address] 23670 Globulin (S) [Mass/Vol] 4.3 g/dL High 1.5 - 3.8 [facility] Comment on above: Performed By: #### 2 35557 #### [facility],[address] [place] [address] 85874 Glucose [Mass/Vol] 194 mg/dL High 74 - 106 [facility] Comment on above: Performed By: #### 2 33186 #### [facility],[address] [place] [address] 37734 Potassium [Moles/Vol] 4.2 mmol/L Normal 3.5 - 5.1 [facility] Comment on above: Performed By: #### 2 06205 #### [facility],[address] [place] [address] 08457 Protein [Mass/Vol] 7.5 g/dL Normal 6.4 - 8.2 [facility] Comment on above: Performed By: #### 2 74441 #### [facility],[address] [place] [address] 01004 Sodium [Moles/Vol] 139 mmol/L Normal 136 - 145 [facility] Comment on above: Performed By: #### 2 66632 #### [facility],[address] [place] [address] Urea nitrogen [Mass/Vol] 28 mg/dL High 7 - 18 [facility] Comment on above: Performed By: #### 2 13387 #### [place] [address] CORONAVIRUS (SARS) ANTIGEN T ESTon 11-07-2023 EXTERNAL QC DONE? YES Normal [facility] Comment on above: Performed By: #### 2 54831 #### [facility],[address] [place] [address] INTERNAL CONTROL PASS Normal [facility] Comment on above: Performed By: #### 2 11433 #### [place] [address] SARS ANTIGEN Negative Normal NORMAL: NEGATIVE [facility] Comment on above: Performed By: #### 2 51246 #### [facility],[address] [place], [place] [address] SEND TO ? YES Normal [facility] Comment on above: Result Comment: SARS -CoV-2 THIS TEST IS BEING USED UNDER THE FDA EUA PROCEDURE. THIS ASSAY HAS BEEN VALIDATED AT [facility] FOR USE WITH NASAL AND [...] PUBLIC HEALTH AUTHORITIES. Performed By: #### 2 72514 #### [facility],[address] [place] [address] 97403 INFLUENZA VIRUS RAPID A/Bon 11-07-2023 INFLUENZA VIRUS [...] B IS RARE. IT IS RECOMMENDED THAT DUAL POSITIVE RESULTS BE CONFIRMED BY VIRAL CULTURE OR AN FDA-CLEARED INFLUENZA A AND B MOLECULAR ASSAY. INDIVIDUALS WHO HAVE RECEIVED NASALLY ADMINISTERED INFLUENZA A VACCINE MAY TEST POSITIVE IN COMMERCIALLY AVAILABLE INFLUENZA RAPID DIAGNOSTIC TESTS FOR UP TO THREE DAYS. RESULT CRITICAL? NO Normal [facility] Comment on above: Performed By: #### 2 22747 #### [facility],[address] [place] [address] LIPASEon 11-07-2023 Lipase [Catalytic activity/Vol] 32.0 U/L Normal 15.0 - 78.0 [facility] Comment on above: Result Comment: *PLE ASE NOTE THAT RANGES FOR LIPASE HAVE CHANGED OF 09/03/23 DUE TO AN ASSAY UPDATE BY THE COPY MACHINE OPERATOR.THE NEW ASSAY RANGE IS 6-250 U/L, WITH A REFERENCE RANGE OF 16-77 U/L. Performed By: #### 2 81893 #### [facility],[address] [place] [address] URINALYSISon 11-07-2023 Amorphous NONE Normal [facility] Comment on above: Performed By: #### 2 81313 #### [facility],[address] [place] [address] Bacteria 1+ Normal [facility] Comment on above: Performed By: #### 2 25555 #### [facility],[address] [place] [address] Bilirubin Ql (U) Negative Normal NORMAL: NEGATIVE [facility] Comment on above: Performed By: #### 2 53909 #### [facility],[address] [place] [address] Casts NONE Normal [facility] Comment on above: Performed By: #### 2 36034 #### [facility],[address] [place] [address] Clarity (U) CLOUDY Abnormal NORMAL: CLEAR [facility] Comment on above: Performed By: #### 2 88393 #### [facility],[address] [place] [address] Color (U) yellow Normal NORMAL: YELLOW [facility] Comment on above: Performed By: #### 2 06446 #### [facility],[address] [place], [place] [id number] Crystals LM Nom (Urine sed) NONE Normal [facility] Comment on above: Performed By: #### 2 91456 #### [facility],[address] [place] [address] 12217 Epi Cells OCC Normal [facility] Comment on above: Performed By: #### 2 50488 #### [facility],[address] [place] [address] Glucose Ql (U) 50 Abnormal NORMAL: NORMAL [facility] Comment on above: Performed By: #### 2 35240 #### [facility],[address] [place] [address] Hemoglobin Ql (U) 25 Abnormal NORMAL: NEGATIVE [facility] Comment on above: Performed By: #### 2 53640 #### [facility],[address] [place] [address] Ketone Negative Normal NORMAL: NEGATIVE [facility] Comment on above: Performed By: #### 2 97315 #### [facility],[address] [place] [address] 36000 Leukocytes 500 Abnormal NORMAL: NEGATIVE [facility] Comment on above: Performed By: #### 2 84361 #### [facility],[address] [place] [address] Mucous NONE Normal [facility] Comment on above: Performed By: #### 2 93088 #### [facility],[address] [place] [address] 73372 Nitrite Ql (U) Negative Normal NORMAL: NEGATIVE [facility] Comment on above: Performed By: #### 2 77304 #### [facility],[address] [place], [place] [address] pH (U) 6 [pH] Normal NORMAL: 5.0-8.0 [facility] Comment on above: Performed By: #### 2 52849 #### [facility],[address] [place], [place] [address] Protein Ql (U) 30 Abnormal NORMAL: NEGATIVE [facility] Comment on above: Performed By: #### 2 [id number] #### [facility],[address] [place] [address] Rbc 0-5 Normal 0-3/hpf [facility] Comment on above: Performed By: #### 2 [id number] #### [facility],[address] [place] [address] Sp [place] 1.015 Normal NORMAL: 1.010-1.030 [facility] Comment on above: Performed By: #### 2 25357 #### [facility],[address] [place] [address] Specimen Type R Normal [facility] Comment on above: Performed By: #### 2 [id number] #### [facility],[address] [place] [address] Urinalysis dipstick W Reflex Microscopic panel (U) SEE BELOW Normal [facility] Comment on above: Result Comment: MICR OSCOPIC Performed By: #### 2 26168 #### [facility],[address] [place] [address] Urobilinog NORM Normal NORMAL: NORMAL [facility] Comment on above: Performed By: #### 2 10689 #### [facility],[address] [place] [address] WBC (U) [#/Vol] /uL Normal 0-5/hpf [facility] Comment on above: Performed By: #### 2 79343 #### [facility],[address] [place] [address] Yeast 1+ Normal [facility] Comment on above: Performed By: #### 2 23255 #### [facility],[address] [place] [address] URINE CULTURE [CCL]on 2023 Bacteria identified Cx Nom (U) URCUL See Results Below See Below CULTURE, URINE NORMAL UROGENITAL CHRIS >=100,000 CFU/ml Normal urogenital chris SOURCE: URINE [facility] [address] [address] Sukhjinder Fregoso III, M.D. [id number] Normal [facility] Comment on above: Performed By: #### 2 70267 #### [facility],[address] [place] [address] XR KNEE RIGHT 4+ VIEWS (SPEC YIN [...] joint space narrowing in the patellofemoral compartment. [facility]/f Workstation ID: [id number] Dictated by: AXEL HERNANDEZ on WedOct 26, 2023 2:00:06 PM EST Transcribed by: CARITO TRUONG on WedOct 26, 2023 2:25:53 PM EST Finalized by: AXEL HERNANDEZ on WedOct 26, 2023 5:15:47 PM EST Normal [facility] Comment on above: Order Comment: [...] and patchy deep white matter hypodensity bilaterally. Jkip-pb-kjfkxohw generalized cerebral volume loss. Brain and CSF [...] WedOct 22, 2023 3:28:50 PM EST Normal [facility] Comment on above: Order Comment: Injur y/Trauma [...] on WedOct 22, 2023 4:31:30 PM EST [facility] Comment on above: Order Comment: Injur y/Trauma [...] Mechanism of injury: Reent falls, twisted knee x1 day ORDERING SYSTEM PROVIDED DIAGNOSIS CODES: R42 Dizziness R73.9 Hyperglycemia COMPARISON: 05/04/2023 IMPRESSION: FINDINGS/ 1. No evidence of acute osseous abnormality of the right knee. No significant effusion. 2. Osteopenia. 3. Severe patellofemoral degenerative change better seen on prior sunrise view. Mild degenerative change of the medial and lateral compartments. 4. Peripheral arterial disease. Workstation ID: [id number] Dictated by: ELVA STARK on WedOct 22, 2023 5:12:50 PM EST Transcribed by: ELVA STARK on WedOct 22, 2023 5:12:50 PM EST Finalized by: ELVA STARK on WedOct 22, 2023 5:12:50 PM EST [facility] Comment on above: Order Comment: Injur y/Trauma or Illness?:Injury/Trauma How long have you had these symptoms (acute/chronic)?:Acute Reason for exam?:L-1/ L-3 KYPHOPLASTY Type of Exam?:Subsequent/Follow-up Mechanism of injury?:FALL Fluoro time in minutes:6.43 Fluoro dose in mGy?:557.2 Laboratory - Drug toxicology Ordered By: Elizabeth Fuentes on 10-18-2023 Amphetamines Ql (U) Negative <1000 ng/mL [facility] Benzodiazepines Ql (U) Negative < 200 ng/mL [facility] Cannabinoids Screen Ql (U) Negative < 50 ng/mL [facility] Cocaine Ql (U) Negative < 300 ng/mL [facility] Opiates Ql (U) Negative < 300 ng/mL [facility] No Panel InformationOrdered By: Elizabeth Fuentes on 10-18-2023 MDMA (Ecstasy) Screen Negative < 500 ng/mL [facility] Urine Barbiturates Screen Negative < 200 ng/mL [facility] Urine Drug Screen Comment [facility] Comment on above: CONFIRMATORY TESTING FOR ALL [...] TESTING MUST BE ORDERED SEPARATELY. USE TESTMNEMONIC: [facility] Urine Methadone Screen Negative < 300 ng/mL [facility] Urine phencyclidine (PCP) de tectionOrdered By: Elizabeth Fuentes on 10-18-2023 Phencyclidine Ql (U) Negative < 25 ng/mL [facility] US DOPPLER CAROTIDon 024 US DOPPLER CAROTID Patient Info Name: KRISTEN MANN Age: 73 years : 1950 Gender: Female Exam Date: 10/01/2023 7:36 AM Patient Status: Inpatient Moss Gatherer: Pat Uribe, DEBRA, RDMS, RVT Referring Physician: LENA Hebert; Indications - Syncope R55 - Syncope and collapse Procedure Description 69608 Duplex examination using B-mode, color and spectral [...] Shultz MD, RPVI on 10/01/2023 08:54 AM [facility] CT CERVICAL SPINE WITHOUT CO NTRASTon 09-30-2023 [...] WedSep 30, 2023 3:01:36 PM EST Normal [facility] Comment on above: Order Comment: Injur y/Trauma [...] disease. Coronary artery disease. 4. Hiatal hernia. [place]/ Workstation ID: [id number] Dictated by: HENNA ACEVEDO on WedSep 30, 2023 3:50:49 PM EST Transcribed by: MORENO MCDANIEL on WedSep 30, 2023 3:53:44 PM EST Finalized by: HENNA ACEVEDO on WedOct 01, 2023 8:13:52 AM EST [facility] Comment on above: Order Comment: Injur y/Trauma [...] cells clear. Skull base intact. Nasopharynx normal. Water Quality Specialist spaces are normal. Prior cataract surgery. Brain [...] on WedSep 30, 2023 3:44:29 PM EST [facility] Comment on above: Order Comment: Injur y/Trauma or Illness?:Injury/Trauma How long have you had these symptoms (acute/chronic)?:Acute Reason for exam?:LEFT ARM PAIN History of cancer?:u Surgeries, chemotherapy, or radiation?:u Type of Exam?:Initial Mechanism of injury?:fall MR LUMBAR SPINE WITHOUT CONT Shahbaz 09-30-2023 MR LUMBAR SPINE WITHOUT CONTRAST EXAMINATION: [...] axial images could be obtained. FINDINGS: Sagittal wallpaper installer images through the entirety of the spine demonstrate 6 lumbar-type vertebral bodies in addition to the 12 thoracic and 7 cervical vertebral bodies. Numbering for this study will be L1 through L6. There has been prior vertebroplasty at the T12 level. There is a moderate chronic superior endplate compression deformity at L1 and a iudf-me-iejdauxg chronic inferior endplate compression deformity at L2 [...] protrusion with severe facet arthropathy. There is rbqdcpky-rj-ofjtak bilateral foraminal narrowing and mild central narrowing. L4-L5: There is a 5 mm broad-based disc protrusion and gxsm-bw-jiedowom facet arthropathy resulting in mild foraminal narrowing without central stenosis. L3-L4: There is a diffuse disc bulge and moderate facet arthropathy with subarticular/foraminal disc protrusions resulting in mild moderate bilateral foraminal narrowing. L2-L3: There is a broad-based disc protrusion and etdn-px-pvbmaxcf facet arthropathy resulting in moderate bilateral foraminal [...] with a broad-based disc protrusion. There is zjajagsr-dd-foxbfe bilateral foraminal narrowing and mild central narrowing at the L5-L6 level. 4. Additional foraminal narrowing otherwise as described above. GABRIELAL/elia Workstation ID: [id number] Dictated by: BEHZAD HURST on WedOct 01, 2023 1:27:44 PM EST Transcribed by: MORENO MCDANIEL on WedOct 01, 2023 2:24:47 PM EST Finalized by: BEHZAD HURST on WedOct 01, 2023 2:37:41 PM EST Normal [facility] Comment on above: Order Comment: Injur y/Trauma [...] T10-T11 and to lesser extent at T9-T10. Tkcc-nf-mkuoecsb facet arthropathy is evident. There is no [...] 4. There are broad-based disc protrusions and odbd-le-shdofkbq facet arthropathy as described above. No central or foraminal stenosis is identified. TATE/kaley Workstation ID: [id number] Dictated by: BEHZAD HURST on WedOct 01, 2023 1:21:17 PM EST Transcribed by: ERIC ARNOLD on WedOct 01, 2023 2:23:28 PM EST Finalized by: BEHZAD HURST on WedOct 01, 2023 2:38:00 PM EST Normal [facility] Comment on above: Order Comment: Injur y/Trauma [...] degenerative changes. IMPRESSION: No acute process identified. RACHEL/montserrat Workstation ID: [id number] Dictated by: HENNA ACEVEDO on WedSep 30, 2023 12:40:33 PM EST Transcribed by: TUNG EPPS on Darleen Sep 30, 2023 1:08:27 PM EST Finalized by: HENNA ACEVEDO on [facility] Oct 02, 2023 11:54:06 AM EST Normal [facility] Comment on above: Order Comment: Injur y/Trauma or Illness?:Injury/Trauma How long have you had these symptoms (acute/chronic)?:Acute Reason for exam?:L-1/ L-3 KYPHOPLASTY Type of Exam?:Subsequent/Follow-up Mechanism of injury?:FALL Fluoro time in minutes:6.43 Fluoro dose in mGy?:557.2 XR ELBOW LEFT 3+ VIEWS (KANU JAMIN)on 09-30-2023 XR ELBOW LEFT 3+ VIEWS (STANDARD) [...] IMPRESSION: No acute process. Mild degenerative changes. Kamla Workstation ID: [id number] Dictated by: HENNA ACEVEDO on Darleen Sep 30, 2023 12:45:19 PM EST Transcribed by: EMELINA HAWLEY on WedSep 30, 2023 1:12:29 PM EST Finalized by: HENNA ACEVEDO on Sat Oct 02, 2023 11:53:52 AM EST [facility] Comment on above: Order Comment: Injur y/Trauma [...] IMPRESSION: No acute process. Mild degenerative changes. MA/reji Workstation ID: [id number] Dictated by: HENNA ACEVEDO on Darleen Sep 30, 2023 12:45:19 PM EST Transcribed by: EMELINA HAWLEY on Darleen Sep 30, 2023 1:12:29 PM EST Finalized by: HENNA ACEVEDO on [facility] Oct 02, 2023 11:53:52 AM EST [facility] Comment on above: Order Comment: Injur y/Trauma [...] tissue swelling. Mild osteopenia and degenerative changes. RACHEL/reji Workstation ID: [id number] Dictated by: HENNA ACEVEDO on Darleen Sep 30, 2023 12:44:57 PM EST Transcribed by: EMELINA HAWLEY on Darleen Sep 30, 2023 1:13:47 PM EST Finalized by: HENNA ACEVEDO on [facility] Oct 02, 2023 11:53:47 AM EST Normal [facility] Comment on above: Order Comment: Injur y/Trauma [...] Outpatient Any Known Allergies: MSo4, PCN, Sulfa Core Drill Operator Helper: Yesy Munoz, RT(N), FRANK, KAY, Emmanuel Munoz RT(N), NCT Exam Type: NM MYOCARDIAL PERFUSION SINGLE - STRESS ONLY Study Info Indications - ECG abnormal, intermediate CAD risk Nuclear Physician: Gisele Church MD Referring Physician: DAVE; [id number] Primary Nurse: Janine Hodges RN Supervising Stress [...] Yesy Munoz RT(N), FRANK, KAY Camera Used: [place] D-SPECT Image Protocol Protocol: Selective Stress Only Stress Radiopharmaceutical Dose: 6.5 mCi Imaging Date AND Time: 08/25/2023 10:40 AM Patient Position: upright and supine Injection to Imaging Time: 60 min Total Radiation Dose: 1.4 mSv Injection Date AND Time: 08/25/2023 9:30 AM Procedure(s): Gated SPECT images acquired upright and supine post Tetrofosmin injection at peak stress. Resting images were not required. [facility] FlyCast/QCree application was utilized for processing and interpretation. [...] WedAug 25, 2023 11:38:14 AM EST Normal [facility] Comment on above: Order Comment: [place] location please Injury/Trauma or Illness?:Illness/Other How long have you had these symptoms (acute/chronic)?:Unknown Reason for exam?:bradycardia, syncope, abn ekg Type of Exam?:Unknown Additional signs and symptoms?:bradycardia, syncope, abn ekg US DUPLEX VENOUS LEGS DINA Huff 07-09-2023 US DUPLEX VENOUS LEGS BILATERAL Patient Info Name: KRISTEN MANN Age: 73 years : 1950 Gender: Female Exam Date: 07/09/2023 10:08 AM Patient Status: Inpatient Moss Gatherer: Cherie Rasheed, HEENAT, RVS Referring Physician: [id number] Hawkins; Indications M79.606 - Pain in leg, unspecified Procedure Description 88725 Duplex examination using B-mode, color and spectral [...] Saphenous: - Small Saphenous: - - Normal [facility] XR OR L-SPINE 2-3 VIEWSon XR OR [...] failure, unspecified acute renal failure type (HCC) R10.84 Generalized abdominal pain R11.2 Nausea and vomiting, unspecified vomiting type R73.9 Hyperglycemia S32.020A Closed compression fracture of L2 vertebra, initial encounter ([facility]) S32.040A Closed compression fracture of L4 vertebra, initial encounter ([facility]) R42 Dizziness COMPARISON: 07/06/2023 FINDINGS: Fluoroscopic spot images are acquired during vertebroplasty in progress. IMPRESSION: 1. Intraoperative fluoroscopy. See operative report for procedure description. 2. Ka,r mGy: Fluoro dose in Ka,r mGy: 557.2 Workstation ID: [id number] Dictated by: KALEE HAWLEY on WedJul 08, 2023 12:37:01 PM EDT Transcribed by: KALEE HAWLEY on WedJul 08, 2023 12:37:01 PM EDT Finalized by: KALEE HAWLEY on WedJul 08, 2023 12:37:01 PM EDT [facility] Comment on above: Order Comment: Injur y/Trauma or Illness?:Injury/Trauma How long have you had these symptoms (acute/chronic)?:Acute Reason for exam?:L-1/ L-3 KYPHOPLASTY Type of Exam?:Subsequent/Follow-up Mechanism of injury?:FALL Fluoro time in minutes:6.43 Fluoro dose in mGy?:557.2 CT LUMBAR SPINE WITHOUT CONT [facility] 07-06-2023 CT LUMBAR SPINE WITHOUT [...] failure, unspecified acute renal failure type (HCC) R10.84 Generalized abdominal pain R11.2 Nausea and vomiting, unspecified vomiting type R73.9 Hyperglycemia S32.020A Closed compression fracture of L2 vertebra, initial encounter ([facility]) S32.040A Closed compression fracture of L4 vertebra, initial encounter ([facility]) R42 Dizziness COMPARISON: None TECHNIQUE: CT examination [...] on WedJul 06, 2023 2:44:02 PM EDT [facility] Comment on above: Order Comment: Injur y/Trauma [...] WedJul 07, 2023 2:02:21 PM EDT Normal [facility] Comment on above: Order Comment: Injur y/Trauma or Illness?:Illness/Other How long have you had these symptoms (acute/chronic)?:Unknown Reason for exam?:neck pain for years: fall in 09/2022: no recent injury: Type of Exam?:Unknown Additional signs and symptoms?:n CT ABDOMEN PELVIS WITHOUT CO NTRASTon 07-05-2023 CT ABDOMEN PELVIS WITHOUT CONTRAST EXAMINATION: [...] T12 and L1 vertebroplasty. There are new rkvo-rd-jjriyqag L2 inferior endplate and moderate L4 superior endplate compression fracture. There is grade 1 anterolisthesis at L5-S1 without spondylolysis IMPRESSION: 1. No acute abnormality in the abdomen or pelvis. 2. Acute appearing erys-nv-rsqkxckt L2 and L4 vertebral body compression fractures without significant bony retropulsion. Workstation ID: [id number] Dictated by: RIGO SÁNCHEZ on WedJul 05, 2023 7:28:16 PM EDT Transcribed by: RIGO SÁNCHEZ on WedJul 05, 2023 7:28:16 PM EDT Finalized by: RIGO SÁNCHEZ on WedJul 05, 2023 7:28:16 PM EDT Normal [facility] Comment on above: Order Comment: Injur y/Trauma [...] 05, 2023 7:55:24 PM EDT Finalized by: MER MONTALVO on WedJul 05, 2023 7:55:24 PM EDT Normal [facility] Comment on above: Order Comment: Injur y/Trauma [...] renal failure, unspecified acute renal failure type ([facility]) R10.84 Generalized abdominal pain R11.2 Nausea and vomiting, unspecified vomiting type R73.9 Hyperglycemia S32.020A Closed compression fracture of L2 vertebra, initial encounter ([facility]) S32.040A Closed compression fracture of L4 vertebra, initial encounter ([facility]) R42 Dizziness COMPARISON: 05/09/2022 FINDINGS: Left subclavian [...] on WedJul 05, 2023 10:14:44 PM EDT [facility] Comment on above: Order Comment: Injur y/Trauma [...] Date: 05/31/2023 2:22 PM Patient Status: Outpatient Moss Gatherer: Pat Uribe BS, RDMS, RVT Referring Physician: BROOKLYN LYNN ; Indications M79.662 - Pain in left lower leg - left calf pain and edema . RO DVT Procedure Description 95961 Duplex examination using B-mode, color and spectral [...] Saphenous: - Small Saphenous: - - Normal [facility] DUPLEX VENOUS LEG LEFT Patient Info Name: KRISTEN MANN Age: 73 years : 1950 Gender: Female Exam Date: 05/31/2023 2:22 PM Patient Status: Outpatient Moss Gatherer: Pat Uribe, DEBRA, RDMS, RVT Referring Physician: BROOKLYN LYNN ; Indications M79.662 - Pain in left lower leg - left calf pain and edema . RO DVT Procedure Description 95571 Duplex examination using B-mode, color and spectral [...] WedMay 31, 2023 3:59:42 PM EDT Normal [facility] No Panel Informationon 05-28 Radiology Study observation (narrative) [facility] XR LUMBAR SPINE STANDARD WIT H [...] on WedMay 28, 2023 3:28:40 PM EDT Normal [facility] Comment on above: Order Comment: Injur y/Trauma [...] with flexion or extension. Workstation ID: [id number] [facility] EXAMINATION: XR LUMBAR SPINE STANDARD WITH FLEX/EXT [...] vertebroplasty cement in the T11 vertebral body. [facility] Jorge Kahn MD - 05/28/2023 EXAMINATION: XR [...] with flexion or extension. Workstation ID: [id number] [facility] XR Lumbar Spine Standard wit h Flex/Ext 4+ ViewsOrdered By: Jorge Kahn on 05-28-2023 [facility] Work Phone: XR THORACIC SPINE 3 VIEWS [...] WedMay 28, 2023 3:50:17 PM EDT Normal [facility] Comment on above: Order Comment: Injur y/Trauma [...] and T12 is seen. Workstation ID: [id number] [facility] EXAMINATION: XR THORACIC SPINE 3 VIEWS (STANDARD) [...] alignment. The paraspinal soft tissues appear unremarkable. [facility] Choco Mullins MD - 05/28/2023 EXAMINATION: XR THORACIC SPINE [...] and T12 is seen. Workstation ID: [id number] [facility] XR Thoracic Spine 3 Views (S tandard)Ordered By: Choco Mullins on 05-28-2023 [facility] Work Phone: LG Jt Injection/Arthrocentes is: Laura whitlock 05-04-2023 Eliecer Hill , FREDDIE 05/04/2023 2:05 PM DEVIN Mcdaniel Injection/Arthrocentesi s: R knee Performed by: Eliecer Hill CNP Authorized by: Eliecer Hill CNP CPT 02253 - Large Joint Arthrocentesis: Consent given by: [...] the procedure well with no immediate complications [facility] XR KNEE RIGHT 4+ VIEWS (SPEC YIN [...] knee compartment. IMPRESSION: No acute osseous abnormality. 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 Osteopenia. / Workstation ID: [id number] Dictated by: NEVA MEDINA on WedMay 04, 2023 1:17:50 PM EDT Transcribed by: MORENO MCDANIEL on WedMay 04, 2023 2:12:42 PM EDT Finalized by: NEVA MEDINA on WedMay 04, 2023 5:22:15 PM EDT Normal [facility] Comment on above: Order Comment: [...] Date: 03/22/2023 10:53 AM Patient Status: Outpatient Rotor Blade Installer: Meaghan Sommer RDCS, RVT Exam Type: ECHOCARDIOGRAM LIMITED Study Info Indications - Re-assess LV function Referring Physician: RADHA HUBBARD ; [id number] BMI: 28.25 kg/m2 Summary 1. Limited two-dimensional [...] Normal - MV Doppler - MV [place] 352 cm/s2 MV PHT 55 ms MV [...] 2D/MM - (more content not included)... Normal [facility] CT HEAD WO CONTRASTon 2022 CT HEAD WO CONTRAST Patient Name: KRISTEN MANN STUDY: CT HEAD WO CONTRAST; 12/08/2022 8:58 am INDICATION: INCREASED PAIN WEAKNESS OF LEFT SIDE. COMPARISON: None. ACCESSION NUMBER(S): [id number] ORDERING CLINICIAN: GISELE DALTON TECHNIQUE: Noncontrast axial [...] hydrocephalus. Electronically signed by: GISELE OWENS, Normal [facility] UA MICROSCOPICon 10-31-2022 BACTERIA 1+ /HPF Abnormal [facility] Comment on above: Performed By: #### U AMIC #### [place] [address] CA OXALATE CRYSTAL 3+ /HPF Abnormal [facility] Comment on above: Performed By: #### U AMIC #### [place] [address] HYALINE CAST 1+ /LPF Abnormal [facility] Comment on above: Performed By: #### U AMIC #### [place] [address] RBC 3 /HPF Normal 0-5 [facility] Comment on above: Performed By: #### U AMIC #### [place] [address] RENAL EPITH. CELLS <1 Normal [facility] Comment on above: Performed By: #### U AMIC #### [place] [address] SQUAMOUS EPITH. CELLS 1 /HPF Normal [facility] Comment on above: Performed By: #### U AMIC #### [place] [address] WBC 27 /HPF Abnormal 0-5 [facility] Comment on above: Performed By: #### U AMIC #### [place] [address] URINALYSISon 10-31-2022 Appearance (U) SLT CLOUDY Normal CLEAR [facility] Comment on above: Performed By: #### U A #### [place] [address] Bilirubin Ql (U) Negative Normal NEGATIVE [facility] Comment on above: Performed By: #### U A #### [place] [address] Color (U) YELLOW Normal STRAW,YELLO W [facility] Comment on above: Performed By: #### U A #### [address] [address] Glucose Ql (U) Negative Normal NEGATIVE [facility] Comment on above: Performed By: #### U A #### [address] [address] Hemoglobin Ql (U) Negative Normal NEGATIVE [facility] Comment on above: Performed By: #### U A #### [place] [id number] Ketones Ql (U) Negative Normal NEGATIVE [facility] Comment on above: Performed By: #### U A #### [address] [address] Leukocyte esterase Test strip Ql (U) TRACE Abnormal NEGATIVE [facility] Comment on above: Performed By: #### U A #### [place] [id number] Nitrite Ql (U) Negative Normal NEGATIVE [facility] Comment on above: Performed By: #### U A #### [place] [id number] pH (U) 7.0 [pH] Normal 5.0 - 8.0 [facility] Comment on above: Performed By: #### U A #### [place] [id number] Protein Ql (U) 30 (1+) Abnormal NEGATIVE [facility] Comment on above: Performed By: #### U A #### [place] [id number] Specific gravity (U) [Rel density] 1.015 Normal 1.005 - 1.035 [facility] Comment on above: Performed By: #### U A #### [address] [address] Urobilinogen (U) [Mass/Vol] mg/dL Normal 0.0 - 1.9 [facility] Comment on above: Performed By: #### U A #### [address] [address] URINE CULTURE,BACTERIALon URINE CULTURE,BACTERIAL GISELE DALTON CNP BOLA SPECIMEN DROP OFF PATIENT: KRISTEN MANN LOCATION: [facility]#: [id number] : 54 AGE: SEX: F ORDERED BY: BEATA GONZALEZ PHYSICIAN SOURCE: URINE COLLECTED: 10/31/22 18:00 ANTIBIOTICS AT [facility].: RECEIVED : 11/01/22 15:57 SITE: Unspecified R E S U L T S URINE CULTURE,BACTERIAL FINAL 11/02/22 08:26 MIXED URETHRAL CHRIS. Normal [facility] Comment on above: Performed By: #### U RINC #### [facility] [address] [place] [address] UA MICROSCOPICon 10-25-2022 CA OXALATE CRYSTAL 3+ /HPF Abnormal [facility] Comment on above: Order Comment: Dr Ham Fax [phone] Performed By: #### U AMIC #### [place] [address] RBC (U) [#/Vol] /uL Normal 0-5 [facility] Comment on above: Order Comment: Dr Ham Fax [phone] Performed By: #### U AMIC #### [address] [address] SQUAMOUS EPITH. CELLS 2 /HPF Normal [facility] Comment on above: Order Comment: Dr Ham Fax [phone] Performed By: #### U AMIC #### [address] [address] WBC 33 /HPF Abnormal 0-5 [facility] Comment on above: Order Comment: Dr Ham Fax [phone] Performed By: #### U AMIC #### [address] [address] URINALYSISon 10-25-2022 Appearance (U) HAZY Normal CLEAR [facility] Comment on above: Order Comment: Dr Ham Fax [phone] Performed By: #### U A #### [address] [address] Bilirubin Ql (U) Negative Normal NEGATIVE [facility] Comment on above: Order Comment: Dr Ham Fax [phone] Performed By: #### U A #### [place] [id number] Color (U) Yellow Normal STRAW,YELLO W [facility] Comment on above: Order Comment: Dr Ham Fax [phone] Performed By: #### U A #### [place] [id number] Glucose Ql (U) >=500(3+) Abnormal NEGATIVE [facility] Comment on above: Order Comment: Dr Ham Fax [phone] Performed By: #### U A #### [address] [address] Hemoglobin Ql (U) Negative Normal NEGATIVE [facility] Comment on above: Order Comment: Dr Ham Fax [phone] Performed By: #### U A #### [place] [id number] Ketones Ql (U) Negative Normal NEGATIVE [facility] Comment on above: Order Comment: Dr Ham Fax [phone] Performed By: #### U A #### [place] [id number] Leukocyte esterase Test strip Ql (U) SMALL(1+) Abnormal NEGATIVE [facility] Comment on above: Order Comment: Dr Ham Fax [phone] Performed By: #### U A #### [address] [address] Nitrite Ql (U) Negative Normal NEGATIVE [facility] Comment on above: Order Comment: Dr Ham Fax [phone] Performed By: #### U A #### [address] [address] pH (U) 6.0 [pH] Normal 5.0 - 8.0 [facility] Comment on above: Order Comment: Dr Ham Fax [phone] Performed By: #### U A #### [address] [address] Protein Ql (U) 30(1+) Abnormal NEGATIVE [facility] Comment on above: Order Comment: Dr Ham Fax [phone] Performed By: #### U A #### [address] [address] Specific gravity (U) [Rel density] 1.017 Normal 1.005 - 1.035 [facility] Comment on above: Order Comment: Dr Ham Fax [phone] Performed By: #### U A #### [address] [address] Urobilinogen (U) [Mass/Vol] mg/dL Normal 0.0 - 1.9 [facility] Comment on above: Order Comment: Dr Ham Fax [phone] Performed By: #### U A #### [address] [address] URINE CULTURE,BACTERIALon URINE CULTURE,BACTERIAL Dr Angelo cortes Fax [phone] PATIENT: KRISTEN MANN LOCATION: [facility]#: [id number] : 54 AGE: SEX: F ORDERED BY: AMBULATORY CARLOS, PHYSICIAN SOURCE: URINE COLLECTED: 10/25/22 14:45 ANTIBIOTICS AT [facility].: RECEIVED : 10/26/22 13:10 SITE: Unspecified R E S U [facility] T S URINE CULTURE,BACTERIAL FINAL 10/27/22 08:38 MIXED URETHRAL CHRIS. Normal [facility] Comment on above: Performed By: #### U [facility] #### [facility] [address] [place] [address] Absolute lymphocyte countOrd ered By: Dr. Cervantes on 10-12-2022 Lymphocytes Auto (Unsp spec) [#/Vol] 2.41 10*3/uL 0.83-4.51 [facility] Basophil percentageOrdered B y: Dr. Cervantes on 10-12-2022 Basophil percentage 156 mg/dL 74-106 [facility] Basophil percentage 141 mmol/L 136-145 [facility] Basophil percentage 3.5 mmol/L 3.5-5.1 [facility] Basophil percentage 110 mmol/L 98-107 [facility] Basophils (Bld) [#/Vol] 9.6 10*3/uL 4.4-11.0 [facility] Basophils (Bld) [#/Vol] 5.8 10*3/uL 2.0-7.7 [facility] Basophils/100 WBC (Bld) 60.8 % 47-70 [facility] Basophils/100 WBC (Bld) 4.4 % 0-5 [facility] Basophils/100 WBC (Bld) 0.7 % 0-1 [facility] Blood erythrocytes count (nu mber/volume)Ordered By: Dr. Cervantes on 10-12-2022 RBC (Bld) [#/Vol] 4.06 10*6/uL 4.2-5.4 [facility] Blood hemoglobin measurement (mass/volume)Ordered By: Dr. Cervantes on 10-12-2022 Hemoglobin (Bld) [Mass/Vol] 11.1 g/dL 12.0-15.0 [facility] Blood lymphocytes/100 leukoc ytesOrdered By: Dr. Cervantes on 10-12-2022 Lymphocytes/100 WBC (Bld) 25.2 % 19-41 [facility] Blood monocytes/100 leukocyt esOrdered By: Dr. Cervantes on 10-12-2022 Monocytes/100 WBC (Bld) 7.7 % 0-10 [facility] Blood platelet mean volumeOr dered By: Dr. Cervantes on 10-12-2022 Platelet mean volume (Bld) [Entitic vol] 9.1 fL 6.2-12.0 [facility] COVID-19 virus antigen assay Ordered By: Dr. Cervantes on 10-12-2022 SARS-CoV-2 (COVID-19) Ag IA.rapid Ql (Resp) [facility] Determination of erythrocyte mean corpuscular volume (MCV)Ordered By: Dr. Cervantes on 10-12-2022 MCV (RBC) [Entitic vol] 86.7 fL 81-99 [facility] Glucose Glucometer (BldC) [M ass/Vol]Ordered By: Dr. Cervantes on 10-12-2022 Glucose [Mass/Vol] 259 mg/dL 74-106 [facility] Hematocrit Auto (Bld) [Volum e fraction]Ordered By: Dr. Cervantes on 10-12-2022 Hematocrit (Bld) [Volume fraction] 35.2 % 37-47 [facility] MCHC Auto (RBC) [Mass/Vol]Or dered By: Dr. Cervantes on 10-12-2022 MCHC (RBC) [Mass/Vol] 31.5 g/dL 32-36 [facility] No Panel InformationOrdered By: Dr. Cervantes on 10-12-2022 27.3 pg 27.0-32.0 [facility] 14.2 % 11.6-14.6 [facility] 44.5 fl 35.1-43.9 [facility] 1.200 % 0.0-0.9 [facility] 0 % 0-5 [facility] 51 mL/min >60 [facility] 62 mL/min >60 [facility] 43.75 ml/min [facility] 22.3 RATIO 10-20 [facility] 24.0 mmol/L 21.0-32.0 [facility] Platelets bldOrdered By: Dr. Cervantes on 10-12-2022 Platelets (Bld) [#/Vol] 326 10*3/uL 150-450 [facility] Serum or plasma calcium arnold urement (mass/volume)Ordered By: Dr. Cervantes on 10-12-2022 Calcium [Mass/Vol] 8.7 mg/dL 8.5-10.1 [facility] Serum or plasma creatinine m easurement (mass/volume)Ordered By: Dr. Cervantes on 10-12-2022 Creatinine [Mass/Vol] 1.12 mg/dL 0.55-1.02 [facility] Serum or plasma urea nitroge n measurement (mass/volume)Ordered By: Dr. Cervantes on 10-12-2022 Urea nitrogen [Mass/Vol] 25 mg/dL 7-18 [facility] Thin prep Papanicolaou smear with manual screeningOrdered By: Dr. Cervantes on 10-12-2022 Thin prep Papanicolaou smear with manual screening 7 5-15 [facility] Basophil percentageOrdered B y: Dr. Andersen on 10-09-2022 Basophil percentage 0-5 SEEN /hpf 0-5 [facility] Bilirubin Test strip Ql (U)O rdered By: Dr. Andersen on 10-09-2022 Bilirubin Ql (U) Negative Negative [facility] Ketones Test strip Ql (U)Ord ered By: Dr. Andersen on 10-09-2022 Ketones Ql (U) Negative Negative [facility] Mucus LM Ql (Urine sed)Order ed By: Dr. Andersen on 10-09-2022 Mucus Ql (Urine sed) 0 SEEN /hpf [facility] Nitrite Test strip Ql (U)Ord ered By: Dr. Andersen on 10-09-2022 Nitrite Ql (U) Negative Negative [facility] Protein Test strip Ql (U)Ord ered By: Dr. Andersen on 10-09-2022 Protein Ql (U) 30 mg/dl Negative [facility] Serum or plasma cortisol angi surement (mass/volume)Ordered By: Dr. Hidalgo on 10-09-2022 Cortisol [Mass/Vol] 6.40 ug/dL 3.44-22.45 [facility] Squamous epithelial cells de tection in urine sediment by light microscopyOrdered By: Dr. Andersen on 10-09-2022 Epithelial cells.squamous LM Ql (Urine sed) 0-5 SEEN /hpf 5-10 [facility] Urine blood detectionOrdered By: Dr. Andersen on 10-09-2022 RBC Ql (U) Negative Negative [facility] RBC Ql (U) 0 SEEN /hpf 0-5 [facility] Urine clarityOrdered By: Dr. Andersen on 10-09-2022 Clarity (U) Clear Clear [facility] Urine color determinationOrd ered By: Dr. Andersen on 10-09-2022 Color (U) Yellow Yellow [facility] Urine glucose detectionOrder ed By: Dr. Andersen on 10-09-2022 Glucose Ql (U) 250 mg/dl Normal [facility] Urine leukocyte esterase det ection by dipstickOrdered By: Dr. Andersen on 10-09-2022 Leukocyte esterase Test strip Ql (U) 25 /ul Negative [facility] Urine pHOrdered By: Dr. Andersen o n 10-09-2022 pH (U) 6.0 [pH] 5.0 - 8.0 [facility] Urine sediment bacteria coun t by microscopy (number/high power field)Ordered By: Dr. Andersen on 10-09-2022 Bacteria LM.HPF (Urine sed) [#/Area] 0 /[HPF] None Seen [facility] Urine specific gravity measu rementOrdered By: Dr. Andersen on 10-09-2022 Specific gravity (U) [Rel density] 1.015 1.002-1.030 [facility] Urobilinogen Auto test strip Ql (U)Ordered By: Dr. Andersen on 10-09-2022 Urobilinogen Ql (U) Normal mg/dl Normal [facility] Absolute lymphocyte countOrd ered By: Dr. Andersen on 10-08-2022 Lymphocytes Auto (Unsp spec) [#/Vol] 2.29 10*3/uL 0.83-4.51 [facility] Basophil percentageOrdered B y: Dr. Andersen on 10-08-2022 Basophils/100 WBC (Bld) 0.6 % 0-1 [facility] Chloride [Moles/Vol] 108 mmol/L 98-107 [facility] Eosinophils/100 WBC (Bld) 3.1 % 0-5 [facility] Glucose [Mass/Vol] 275 mg/dL 74-106 [facility] Comment on above: Glucose result great er than or equal to 200 mg/dLsuggests DIABETES MELLITUS per A.D.A. criteria. Neutrophils (Bld) [#/Vol] 11.6 10*3/uL 2.0-7.7 [facility] Neutrophils/100 WBC (Bld) 72.3 % 47-70 [facility] Potassium [Moles/Vol] 4.0 mmol/L 3.5-5.1 [facility] Sodium [Moles/Vol] 138 mmol/L 136-145 [facility] WBC (Bld) [#/Vol] 16.1 10*3/uL 4.4-11.0 [facility] Blood erythrocytes count (nu mber/volume)Ordered By: Dr. Andersen on 10-08-2022 RBC (Bld) [#/Vol] 5.15 10*6/uL 4.2-5.4 [facility] Blood hemoglobin measurement (mass/volume)Ordered By: Dr. Andersen on 10-08-2022 Hemoglobin (Bld) [Mass/Vol] 14.3 g/dL 12.0-15.0 [facility] Blood lymphocytes/100 leukoc ytesOrdered By: Dr. Andersen on 10-08-2022 Lymphocytes/100 WBC (Bld) 14.2 % 19-41 [facility] Blood monocytes/100 leukocyt esOrdered By: Dr. Andersen on 10-08-2022 Monocytes/100 WBC (Bld) 8.3 % 0-10 [facility] Blood platelet mean volumeOr dered By: Dr. Andersen on 10-08-2022 Platelet mean volume (Bld) [Entitic vol] 9.0 fL 6.2-12.0 [facility] Determination of erythrocyte mean corpuscular volume (MCV)Ordered By: Dr. Andersen on 10-08-2022 MCV (RBC) [Entitic vol] 85.2 fL 81-99 [facility] Hematocrit Auto (Bld) [Volum e fraction]Ordered By: Dr. Andersen on 10-08-2022 Hematocrit (Bld) [Volume fraction] 43.9 % 37-47 [facility] Laboratory - Chemistry and C hemistry - challengeOrdered By: Dr. Andersen on 10-08-2022 CO2 [Moles/Vol] 24.0 mmol/L 21.0-32.0 [facility] Urea nitrogen/Creatinine [Mass ratio] 21.9 mg/mg 10-20 [facility] Laboratory - Hematology and Cell countsOrdered By: Dr. Andersen on 10-08-2022 Erythrocyte distribution width (RBC) [Entitic vol] 42.5 fL 35.1-43.9 [facility] Erythrocyte distribution width (RBC) [Ratio] 13.7 % 11.6-14.6 [facility] Immature granulocytes/100 WBC (Bld) 1.500 % 0.0-0.9 [facility] Comment on above: IG% - Immature Granu locytes (promyelocytes, myelocytes and metamyelocytes) > 1% indicates that a LEFT SHIFT is Present. MCH (RBC) [Entitic mass] 27.8 pg 27.0-32.0 [facility] Nucleated RBC/100 WBC (Bld) [Ratio] 0 % 0-5 [facility] MCHC Auto (RBC) [Mass/Vol]Or dered By: Dr. Andersen on 10-08-2022 MCHC (RBC) [Mass/Vol] 32.6 g/dL 32-36 [facility] No Panel InformationOrdered By: Dr. Hidalgo on 10-08-2022 22.9 ng/mL [facility] No Panel InformationOrdered By: Dr. Andersen on 10-08-2022 Estimated Creatinine Clearance Calc 35.77 ml/min [facility] Estimated GFR (MDRD) Amer 49 mL/min >60 [facility] Comment on above: GFR Calc Estimated GFR (MDRD) Non-Af Amer 40 mL/min >60 [facility] Comment on above: Non- GFR Calc Troponin I High Sensitivity 6 pg/mL 3.0-54.0 [facility] Comment on above: Please Note: [place] t Units and Gender Specific Reference Ranges. For more information see Policy Stat Procedure [place] High Sensitivity Troponin (TNIH) and attachments. 6 pg/mL 3.0-54.0 [facility] Platelets bldOrdered By: Dr. Andersen on 10-08-2022 Platelets (Bld) [#/Vol] 348 10*3/uL 150-450 [facility] Serum or plasma calcium arnold urement (mass/volume)Ordered By: Dr. Andersen on 10-08-2022 Calcium [Mass/Vol] 9.8 mg/dL 8.5-10.1 [facility] Serum or plasma creatinine m easurement (mass/volume)Ordered By: Dr. Andersen on 10-08-2022 Creatinine [Mass/Vol] 1.37 mg/dL 0.55-1.02 [facility] Comment on above: The validity of the calculated GFR & GFRAA in patients over 70 years has not been determined. Clinical correlation is essential. Serum or plasma urea nitroge n measurement (mass/volume)Ordered By: Dr. Andersen on 10-08-2022 Urea nitrogen [Mass/Vol] 30 mg/dL 7-18 [facility] Thin prep Papanicolaou smear with manual screeningOrdered By: Dr. Andersen on 10-08-2022 Thin prep Papanicolaou smear with manual screening 6 5-15 [facility] Absolute lymphocyte countOrd ered By: Arti Burnette on 09-25-2022 Lymphocytes Auto (Unsp spec) [#/Vol] 2.36 10*3/uL 0.83-4.51 [facility] Basophil percentageOrdered B y: Arti Burnette on 09-25-2022 Basophil percentage 10-25 SEEN /hpf 0-5 [facility] Basophil percentage 314 mg/dL 74-106 [facility] Basophil percentage 8.7 g/dL 6.4-8.2 [facility] Basophil percentage 0.30 mg/dL 0.20-1.00 [facility] Basophil percentage 132 mmol/L 136-145 [facility] Basophil percentage 3.8 mmol/L 3.5-5.1 [facility] Basophil percentage 100 mmol/L 98-107 [facility] Basophils (Bld) [#/Vol] 13.3 10*3/uL 4.4-11.0 [facility] Basophils (Bld) [#/Vol] 9.3 10*3/uL 2.0-7.7 [facility] Basophils/100 WBC (Bld) 0.8 % 0-1 [facility] Basophils/100 WBC (Bld) 70.2 % 47-70 [facility] Basophils/100 WBC (Bld) 1.5 % 0-5 [facility] Bilirubin [Mass/Vol] 0.30 mg/dL 0.20-1.00 [facility] Comment on above: For patients on eltr ombopag therapy, use of Dimension [place] TBIL is not recommended. Chloride [Moles/Vol] 100 mmol/L 98-107 [facility] Eosinophils/100 WBC (Bld) 1.5 % 0-5 [facility] Glucose [Mass/Vol] 314 mg/dL 74-106 [facility] Comment on above: Glucose result great er than or equal to 200 mg/dLsuggests DIABETES MELLITUS per A.D.A. criteria. Neutrophils (Bld) [#/Vol] 9.3 10*3/uL 2.0-7.7 [facility] Neutrophils/100 WBC (Bld) 70.2 % 47-70 [facility] Potassium [Moles/Vol] 3.8 mmol/L 3.5-5.1 [facility] Protein [Mass/Vol] 8.7 g/dL 6.4-8.2 [facility] Sodium [Moles/Vol] 132 mmol/L 136-145 [facility] WBC (Bld) [#/Vol] 13.3 10*3/uL 4.4-11.0 [facility] Bilirubin Test strip Ql (U)O rdered By: Arti Burnette on 09-25-2022 Bilirubin Ql (U) Negative Negative [facility] Blood erythrocytes count (nu mber/volume)Ordered By: Arti Burnette on 09-25-2022 RBC (Bld) [#/Vol] 5.42 10*6/uL 4.2-5.4 [facility] Blood hemoglobin measurement (mass/volume)Ordered By: Arti Burnette on 09-25-2022 Hemoglobin (Bld) [Mass/Vol] 14.9 g/dL 12.0-15.0 [facility] Blood lymphocytes/100 leukoc ytesOrdered By: Arti Burnette on 09-25-2022 Lymphocytes/100 WBC (Bld) 17.8 % 19-41 [facility] Blood monocytes/100 leukocyt esOrdered By: Arti Burnette on 09-25-2022 Monocytes/100 WBC (Bld) 8.3 % 0-10 [facility] Blood platelet mean volumeOr dered By: Arti Burnette on 09-25-2022 Platelet mean volume (Bld) [Entitic vol] 9.2 fL 6.2-12.0 [facility] Determination of erythrocyte mean corpuscular volume (MCV)Ordered By: Arti Burnette on 09-25-2022 MCV (RBC) [Entitic vol] 86.7 fL 81-99 [facility] Hematocrit Auto (Bld) [Volum e fraction]Ordered By: Arti Burnette on 09-25-2022 Hematocrit (Bld) [Volume fraction] 47.0 % 37-47 [facility] Ketones Test strip Ql (U)Ord ered By: Arti Burnette on 09-25-2022 Ketones Ql (U) Negative Negative [facility] Laboratory - Chemistry and C hemistry - challengeOrdered By: Arti Burnette on 09-25-2022 ALP [Catalytic activity/Vol] 174 U/L 45-117 [facility] ALT [Catalytic activity/Vol] 25 U/L 13-56 [facility] CO2 [Moles/Vol] 22.0 mmol/L 21.0-32.0 [facility] Globulin (S) [Mass/Vol] 5.6 g/dL 2.2-4.2 [facility] Urea nitrogen/Creatinine [Mass ratio] 19.4 mg/mg 10-20 [facility] Laboratory - Hematology and Cell countsOrdered By: Arti Burnette on 09-25-2022 Erythrocyte distribution width (RBC) [Entitic vol] 43.3 fL 35.1-43.9 [facility] Erythrocyte distribution width (RBC) [Ratio] 13.7 % 11.6-14.6 [facility] Immature granulocytes/100 WBC (Bld) 1.400 % 0.0-0.9 [facility] Comment on above: IG% - Immature Granu locytes (promyelocytes, myelocytes and metamyelocytes) > 1% indicates that a LEFT SHIFT is Present. MCH (RBC) [Entitic mass] 27.5 pg 27.0-32.0 [facility] Nucleated RBC/100 WBC (Bld) [Ratio] 0 % 0-5 [facility] MCHC Auto (RBC) [Mass/Vol]Or dered By: Arti Burnette on 09-25-2022 MCHC (RBC) [Mass/Vol] 31.7 g/dL 32-36 [facility] Mucus LM Ql (Urine sed)Order ed By: Arti Burnette on 09-25-2022 Mucus Ql (Urine sed) 0 SEEN /hpf [facility] Nitrite Test strip Ql (U)Ord ered By: Arti Burnette on 09-25-2022 Nitrite Ql (U) Negative Negative [facility] No Panel InformationOrdered By: Arti Burnette on 09-25-2022 Estimated Creatinine Clearance Calc 36.57 ml/min [facility] Estimated GFR (MDRD) Amer 50 mL/min >60 [facility] Comment on above: GFR Calc Estimated GFR (MDRD) Non-Af Amer 42 mL/min >60 [facility] Comment on above: Non- GFR Calc 27.5 pg 27.0-32.0 [facility] 13.7 % 11.6-14.6 [facility] 43.3 fl 35.1-43.9 [facility] 1.400 % 0.0-0.9 [facility] 0 % 0-5 [facility] 42 mL/min >60 [facility] 50 mL/min >60 [facility] 36.57 ml/min [facility] 19.4 RATIO 10-20 [facility] 5.6 g/dL 2.2-4.2 [facility] 174 U/L 45-117 [facility] 25 U/L 13-56 [facility] 22.0 mmol/L 21.0-32.0 [facility] Platelets bldOrdered By: Mitesh Burnette on 09-25-2022 Platelets (Bld) [#/Vol] 373 10*3/uL 150-450 [facility] Protein Test strip Ql (U)Ord ered By: Arti Burnette on 09-25-2022 Protein Ql (U) 15 mg/dl Negative [facility] Serum or plasma albumin arnold urement (mass/volume)Ordered By: Arti Burnette on 09-25-2022 Albumin [Mass/Vol] 3.1 g/dL 3.2-5.0 [facility] Serum or plasma albumin/glob ulin mass ratioOrdered By: Arti Burnette on 09-25-2022 Albumin/Globulin [Mass ratio] 0.6 {ratio} 0.9-2.4 [facility] Serum or plasma calcium arnold urement (mass/volume)Ordered By: Arti Burnette on 09-25-2022 Calcium [Mass/Vol] 9.3 mg/dL 8.5-10.1 [facility] Serum or plasma creatinine m easurement (mass/volume)Ordered By: Arti Burnette on 09-25-2022 Creatinine [Mass/Vol] 1.34 mg/dL 0.55-1.02 [facility] Comment on above: The validity of the calculated GFR & GFRAA in patients over 70 years has not been determined. Clinical correlation is essential. Serum or plasma urea nitroge n measurement (mass/volume)Ordered By: Arti Burnette on 09-25-2022 Urea nitrogen [Mass/Vol] 26 mg/dL 7-18 [facility] Squamous epithelial cells de tection in urine sediment by light microscopyOrdered By: Arti Burnette on 09-25-2022 Epithelial cells.squamous LM Ql (Urine sed) 0-5 SEEN /hpf 5-10 [facility] Thin prep Papanicolaou smear with manual screeningOrdered By: Arti Burnette on 09-25-2022 Thin prep Papanicolaou smear with manual screening 14 U/L 15-37 [facility] Thin prep Papanicolaou smear with manual screening 10 5-15 [facility] Urine blood detectionOrdered By: Arti Burnette on 09-25-2022 RBC Ql (U) Negative Negative [facility] RBC Ql (U) 0 SEEN /hpf 0-5 [facility] Urine clarityOrdered By: Mitesh Burnette on 09-25-2022 Clarity (U) Clear Clear [facility] Urine color determinationOrd ered By: Arti Burnette on 09-25-2022 Color (U) Yellow Yellow [facility] Urine glucose detectionOrder ed By: Arti Burnette on 09-25-2022 Glucose Ql (U) 250 mg/dl Normal [facility] Urine leukocyte esterase det ection by dipstickOrdered By: Arti Burnette on 09-25-2022 Leukocyte esterase Test strip Ql (U) 500 /ul Negative [facility] Urine pHOrdered By: Rolo Burnette on 09-25-2022 pH (U) 7.0 [pH] 5.0 - 8.0 [facility] Urine sediment bacteria coun t by microscopy (number/high power field)Ordered By: Arti Burnette on 09-25-2022 Bacteria LM.HPF (Urine sed) [#/Area] 0 /[HPF] None Seen [facility] Urine specific gravity measu rementOrdered By: Arti Burnette on 09-25-2022 Specific gravity (U) [Rel density] 1.010 1.002-1.030 [facility] Urobilinogen Auto test strip Ql (U)Ordered By: Arti Burnette on 09-25-2022 Urobilinogen Ql (U) Normal mg/dl Normal [facility] Absolute lymphocyte countOrd ered By: Dr. Patton on 09-22-2022 Lymphocytes Auto (Unsp spec) [#/Vol] 2.97 10*3/uL 0.83-4.51 [facility] Basophil percentageOrdered B y: Dr. Patton on 09-22-2022 Basophil percentage 312 mg/dL 74-106 [facility] Basophil percentage 139 mmol/L 136-145 [facility] Basophil percentage 4.0 mmol/L 3.5-5.1 [facility] Basophil percentage 105 mmol/L 98-107 [facility] Basophils (Bld) [#/Vol] 12.3 10*3/uL 4.4-11.0 [facility] Basophils (Bld) [#/Vol] 7.5 10*3/uL 2.0-7.7 [facility] Basophils/100 WBC (Bld) 0.5 % 0-1 [facility] Basophils/100 WBC (Bld) 61.4 % 47-70 [facility] Basophils/100 WBC (Bld) 3.7 % 0-5 [facility] Chloride [Moles/Vol] 105 mmol/L 98-107 [facility] Eosinophils/100 WBC (Bld) 3.7 % 0-5 [facility] Glucose [Mass/Vol] 312 mg/dL 74-106 [facility] Comment on above: Glucose result great er than or equal to 200 mg/dLsuggests DIABETES MELLITUS per A.D.A. criteria. Neutrophils (Bld) [#/Vol] 7.5 10*3/uL 2.0-7.7 [facility] Neutrophils/100 WBC (Bld) 61.4 % 47-70 [facility] Potassium [Moles/Vol] 4.0 mmol/L 3.5-5.1 [facility] Sodium [Moles/Vol] 139 mmol/L 136-145 [facility] WBC (Bld) [#/Vol] 12.3 10*3/uL 4.4-11.0 [facility] Blood erythrocytes count (nu mber/volume)Ordered By: Dr. Patton on 09-22-2022 RBC (Bld) [#/Vol] 4.45 10*6/uL 4.2-5.4 [facility] Blood hemoglobin measurement (mass/volume)Ordered By: Dr. Patton on 09-22-2022 Hemoglobin (Bld) [Mass/Vol] 12.3 g/dL 12.0-15.0 [facility] Blood lymphocytes/100 leukoc ytesOrdered By: Dr. Patton on 09-22-2022 Lymphocytes/100 WBC (Bld) 24.2 % 19-41 [facility] Blood monocytes/100 leukocyt esOrdered By: Dr. Patton on 09-22-2022 Monocytes/100 WBC (Bld) 8.9 % 0-10 [facility] Blood platelet mean volumeOr dered By: Dr. Patton on 09-22-2022 Platelet mean volume (Bld) [Entitic vol] 9.1 fL 6.2-12.0 [facility] Determination of erythrocyte mean corpuscular volume (MCV)Ordered By: Dr. Patton on 09-22-2022 MCV (RBC) [Entitic vol] 87.0 fL 81-99 [facility] Glucose Glucometer (BldC) [M ass/Vol]Ordered By: Dr. Patton on 09-22-2022 Glucose [Mass/Vol] 410 mg/dL 74-106 [facility] Comment on above: MANAGEMENT OF PATIEN T CARE PER NURSING PROTOCOL Hematocrit Auto (Bld) [Volum e fraction]Ordered By: Dr. Patton on 09-22-2022 Hematocrit (Bld) [Volume fraction] 38.7 % 37-47 [facility] Laboratory - Chemistry and C hemistry - challengeOrdered By: Dr. Patton on 09-22-2022 CO2 [Moles/Vol] 23.0 mmol/L 21.0-32.0 [facility] Urea nitrogen/Creatinine [Mass ratio] 14.9 mg/mg 10-20 [facility] Laboratory - Hematology and Cell countsOrdered By: Dr. Patton on 09-22-2022 Erythrocyte distribution width (RBC) [Entitic vol] 42.7 fL 35.1-43.9 [facility] Erythrocyte distribution width (RBC) [Ratio] 13.5 % 11.6-14.6 [facility] Immature granulocytes/100 WBC (Bld) 1.300 % 0.0-0.9 [facility] Comment on above: IG% - Immature Granu locytes (promyelocytes, myelocytes and metamyelocytes) > 1% indicates that a LEFT SHIFT is Present. MCH (RBC) [Entitic mass] 27.6 pg 27.0-32.0 [facility] Nucleated RBC/100 WBC (Bld) [Ratio] 0 % 0-5 [facility] MCHC Auto (RBC) [Mass/Vol]Or dered By: Dr. Patton on 09-22-2022 MCHC (RBC) [Mass/Vol] 31.8 g/dL 32-36 [facility] No Panel InformationOrdered By: Dr. Patton on 09-22-2022 Estimated Creatinine Clearance Calc 36.57 ml/min [facility] Estimated GFR (MDRD) Amer 50 mL/min >60 [facility] Comment on above: GFR Calc Estimated GFR (MDRD) Non-Af Amer 42 mL/min >60 [facility] Comment on above: Non- GFR Calc 27.6 pg 27.0-32.0 [facility] 13.5 % 11.6-14.6 [facility] 42.7 fl 35.1-43.9 [facility] 1.300 % 0.0-0.9 [facility] 0 % 0-5 [facility] 42 mL/min >60 [facility] 50 mL/min >60 [facility] 36.57 ml/min [facility] 14.9 RATIO 10-20 [facility] 23.0 mmol/L 21.0-32.0 [facility] Platelets bldOrdered By: Dr. Patton on 09-22-2022 Platelets (Bld) [#/Vol] 361 10*3/uL 150-450 [facility] Serum or plasma calcium arnold urement (mass/volume)Ordered By: Dr. Patton on 09-22-2022 Calcium [Mass/Vol] 9.1 mg/dL 8.5-10.1 [facility] Serum or plasma creatinine m easurement (mass/volume)Ordered By: Dr. Patton on 09-22-2022 Creatinine [Mass/Vol] 1.34 mg/dL 0.55-1.02 [facility] Comment on above: The validity of the calculated GFR & GFRAA in patients over 70 years has not been determined. Clinical correlation is essential. Serum or plasma urea nitroge n measurement (mass/volume)Ordered By: Dr. Patton on 09-22-2022 Urea nitrogen [Mass/Vol] 20 mg/dL 7-18 [facility] Thin prep Papanicolaou smear with manual screeningOrdered By: Dr. Patton on 09-22-2022 Thin prep Papanicolaou smear with manual screening 11 5-15 [facility] Basophil percentageOrdered B y: Dr. Ellis on 09-21-2022 Basophil percentage 7.5 g/dL 6.4-8.2 [facility] Basophil percentage 0.40 mg/dL 0.20-1.00 [facility] Bilirubin [Mass/Vol] 0.40 mg/dL 0.20-1.00 [facility] Comment on above: For patients on eltr ombopag therapy, use of Dimension [place] TBIL is not recommended. Protein [Mass/Vol] 7.5 g/dL 6.4-8.2 [facility] Laboratory - Chemistry and C hemistry - challengeOrdered By: Dr. Ellis on 09-21-2022 ALP [Catalytic activity/Vol] 128 U/L [facility] ALT [Catalytic activity/Vol] 14 U/L [facility] Globulin (S) [Mass/Vol] 4.9 g/dL 2.2-4.2 [facility] No Panel InformationOrdered By: Dr. Ellis on 09-21-2022 4.9 g/dL 2.2-4.2 [facility] 128 U/L [facility] 14 U/L [facility] Serum or plasma albumin arnold urement (mass/volume)Ordered By: Dr. Ellis on 09-21-2022 Albumin [Mass/Vol] 2.6 g/dL 3.2-5.0 [facility] Serum or plasma albumin/glob ulin mass ratioOrdered By: Dr. Ellis on 09-21-2022 Albumin/Globulin [Mass ratio] 0.5 {ratio} 0.9-2.4 [facility] Thin prep Papanicolaou smear with manual screeningOrdered By: Dr. Ellis on 09-21-2022 Thin prep Papanicolaou smear with manual screening 10 U/L 15-37 [facility] Whole blood hemoglobin A1c/t otal hemoglobin ratio (mass fraction)Ordered By: Dr. Hernandez on 09-21-2022 HbA1c (Bld) [Mass fraction] 9.3 % 3.8-5.6 [facility] Comment on above: Normal < 5.7 % Predi abetic 5.7 - 6.4 % Diabetic >or= 6.5 % Please note range changes. Basophil percentageOrdered B y: Dr. Meyers on 09-18-2022 Basophil percentage 25-50 SEEN /hpf 0-5 [facility] Bilirubin Test strip Ql (U)O rdered By: Dr. Meyers on 09-18-2022 Bilirubin Ql (U) Negative Negative [facility] Ketones Test strip Ql (U)Ord ered By: Dr. Meyers on 09-18-2022 Ketones Ql (U) Negative Negative [facility] Laboratory - Chemistry and C hemistry - challengeOrdered By: Dr. Meyers on 09-18-2022 Lipase [Catalytic activity/Vol] 145 U/L 73-393 [facility] Mucus LM Ql (Urine sed)Order ed By: Dr. Meyers on 09-18-2022 Mucus Ql (Urine sed) 0 SEEN /hpf [facility] Nitrite Test strip Ql (U)Ord ered By: Dr. Meyers on 09-18-2022 Nitrite Ql (U) Negative Negative [facility] No Panel InformationOrdered By: Dr. Meyers on 09-18-2022 145 U/L 73-393 [facility] Protein Test strip Ql (U)Ord ered By: Dr. Meyers on 09-18-2022 Protein Ql (U) 15 mg/dl Negative [facility] Squamous epithelial cells de tection in urine sediment by light microscopyOrdered By: Dr. Meyers on 09-18-2022 Epithelial cells.squamous LM Ql (Urine sed) 0-5 SEEN /hpf 5-10 [facility] Urine blood detectionOrdered By: Dr. Meyers on 09-18-2022 RBC Ql (U) Negative Negative [facility] RBC Ql (U) 0 SEEN /hpf 0-5 [facility] Urine clarityOrdered By: Dr. Meyers on 09-18-2022 Clarity (U) Sl. Cloudy Clear [facility] Urine color determinationOrd ered By: Dr. Meyers on 09-18-2022 Color (U) Yellow Yellow [facility] Urine glucose detectionOrder ed By: Dr. Meyers on 09-18-2022 Glucose Ql (U) Normal mg/dl Normal [facility] Urine leukocyte esterase det ection by dipstickOrdered By: Dr. Meyers on 09-18-2022 Leukocyte esterase Test strip Ql (U) 500 /ul Negative [facility] Urine pHOrdered By: Dr. Srikanth wilcox on 09-18-2022 pH (U) 7.0 [pH] 5.0 - 8.0 [facility] Urine sediment bacteria coun t by microscopy (number/high power field)Ordered By: Dr. Meyers on 09-18-2022 Bacteria LM.HPF (Urine sed) [#/Area] 0 /[HPF] None Seen [facility] Urine specific gravity measu rementOrdered By: Dr. Meyers on 09-18-2022 Specific gravity (U) [Rel density] 1.010 1.002-1.030 [facility] Urobilinogen Auto test strip Ql (U)Ordered By: Dr. Meyers on 09-18-2022 Urobilinogen Ql (U) Normal mg/dl Normal [facility] Culture, urineOrdered By: Dr Jacobo Donohue on 09-14-2022 Bacteria identified Cx Nom (U) Culture exhibits no growth. [facility] Glucose Glucometer (BldC) [M ass/Vol]Ordered By: Dr. Ellis on 09-14-2022 Glucose [Mass/Vol] 221 mg/dL 74-106 [facility] Comment on above: MANAGEMENT OF PATIEN T CARE PER NURSING PROTOCOL Absolute lymphocyte countOrd ered By: Dr. Murry on 09-13-2022 Lymphocytes Auto (Unsp spec) [#/Vol] 1.97 10*3/uL 0.83-4.51 [facility] Basophil percentageOrdered B y: Dr. Murry on 09-13-2022 Basophil percentage 241 mg/dL 74-106 [facility] Basophil percentage 135 mmol/L 136-145 [facility] Basophil percentage 4.4 mmol/L 3.5-5.1 [facility] Basophil percentage 104 mmol/L 98-107 [facility] Basophils (Bld) [#/Vol] 14.8 10*3/uL 4.4-11.0 [facility] Basophils (Bld) [#/Vol] 11.4 10*3/uL 2.0-7.7 [facility] Basophils/100 WBC (Bld) 0.5 % 0-1 [facility] Basophils/100 WBC (Bld) 76.9 % 47-70 [facility] Basophils/100 WBC (Bld) 1.7 % 0-5 [facility] Chloride [Moles/Vol] 104 mmol/L 98-107 [facility] Eosinophils/100 WBC (Bld) 1.7 % 0-5 [facility] Glucose [Mass/Vol] 241 mg/dL 74-106 [facility] Comment on above: Glucose result great er than or equal to 200 mg/dLsuggests DIABETES MELLITUS per A.D.A. criteria. Neutrophils (Bld) [#/Vol] 11.4 10*3/uL 2.0-7.7 [facility] Neutrophils/100 WBC (Bld) 76.9 % 47-70 [facility] Potassium [Moles/Vol] 4.4 mmol/L 3.5-5.1 [facility] Sodium [Moles/Vol] 135 mmol/L 136-145 [facility] WBC (Bld) [#/Vol] 14.8 10*3/uL 4.4-11.0 [facility] Blood erythrocytes count (nu mber/volume)Ordered By: Dr. Murry on 09-13-2022 RBC (Bld) [#/Vol] 4.36 10*6/uL 4.2-5.4 [facility] Blood hemoglobin measurement (mass/volume)Ordered By: Dr. Murry on 09-13-2022 Hemoglobin (Bld) [Mass/Vol] 12.3 g/dL 12.0-15.0 [facility] Blood lymphocytes/100 leukoc ytesOrdered By: Dr. Murry on 09-13-2022 Lymphocytes/100 WBC (Bld) 13.3 % 19-41 [facility] Blood monocytes/100 leukocyt esOrdered By: Dr. Murry on 09-13-2022 Monocytes/100 WBC (Bld) 6.4 % 0-10 [facility] Blood platelet mean volumeOr dered By: Dr. Murry on 09-13-2022 Platelet mean volume (Bld) [Entitic vol] 9.0 fL 6.2-12.0 [facility] Determination of erythrocyte mean corpuscular volume (MCV)Ordered By: Dr. Murry on 09-13-2022 MCV (RBC) [Entitic vol] 87.2 fL 81-99 [facility] Hematocrit Auto (Bld) [Volum e fraction]Ordered By: Dr. Murry on 09-13-2022 Hematocrit (Bld) [Volume fraction] 38.0 % 37-47 [facility] Laboratory - Chemistry and C hemistry - challengeOrdered By: Dr. Murry on 09-13-2022 CO2 [Moles/Vol] 22.0 mmol/L 21.0-32.0 [facility] Urea nitrogen/Creatinine [Mass ratio] 15.6 mg/mg 10-20 [facility] Laboratory - Hematology and Cell countsOrdered By: Dr. Murry on 09-13-2022 Erythrocyte distribution width (RBC) [Entitic vol] 44.6 fL 35.1-43.9 [facility] Erythrocyte distribution width (RBC) [Ratio] 14.0 % 11.6-14.6 [facility] Immature granulocytes/100 WBC (Bld) 1.200 % 0.0-0.9 [facility] Comment on above: IG% - Immature Granu locytes (promyelocytes, myelocytes and metamyelocytes) > 1% indicates that a LEFT SHIFT is Present. MCH (RBC) [Entitic mass] 28.2 pg 27.0-32.0 [facility] Nucleated RBC/100 WBC (Bld) [Ratio] 0 % 0-5 [facility] MCHC Auto (RBC) [Mass/Vol]Or dered By: Dr. Murry on 09-13-2022 MCHC (RBC) [Mass/Vol] 32.4 g/dL 32-36 [facility] No Panel InformationOrdered By: Dr. Murry on 09-13-2022 Estimated Creatinine Clearance Calc 40.17 ml/min [facility] Estimated GFR (MDRD) Amer 56 mL/min >60 [facility] Comment on above: GFR Calc Estimated GFR (MDRD) Non-Af Amer 46 mL/min >60 [facility] Comment on above: Non- GFR Calc 28.2 pg 27.0-32.0 [facility] 14.0 % 11.6-14.6 [facility] 44.6 fl 35.1-43.9 [facility] 1.200 % 0.0-0.9 [facility] 0 % 0-5 [facility] 46 mL/min >60 [facility] 56 mL/min >60 [facility] 40.17 ml/min [facility] 15.6 RATIO 10-20 [facility] 22.0 mmol/L 21.0-32.0 [facility] Platelets bldOrdered By: Dr. Murry on 09-13-2022 Platelets (Bld) [#/Vol] 489 10*3/uL 150-450 [facility] Serum or plasma calcium arnold urement (mass/volume)Ordered By: Dr. Murry on 09-13-2022 Calcium [Mass/Vol] 9.3 mg/dL 8.5-10.1 [facility] Serum or plasma creatinine m easurement (mass/volume)Ordered By: Dr. Murry on 09-13-2022 Creatinine [Mass/Vol] 1.22 mg/dL 0.55-1.02 [facility] Comment on above: The validity of the calculated GFR & GFRAA in patients over 70 years has not been determined. Clinical correlation is essential. Serum or plasma urea nitroge n measurement (mass/volume)Ordered By: Dr. Murry on 09-13-2022 Urea nitrogen [Mass/Vol] 19 mg/dL 7-18 [facility] Thin prep Papanicolaou smear with manual screeningOrdered By: Dr. Murry on 09-13-2022 Thin prep Papanicolaou smear with manual screening 9 5-15 [facility] Basophil percentageOrdered B y: Dr. Donohue on 09-12-2022 Basophil percentage 8.6 g/dL 6.4-8.2 [facility] Basophil percentage 0.30 mg/dL 0.20-1.00 [facility] Bilirubin [Mass/Vol] 0.30 mg/dL 0.20-1.00 [facility] Comment on above: For patients on eltr ombopag therapy, use of Dimension [place] TBIL is not recommended. Protein [Mass/Vol] 8.6 g/dL 6.4-8.2 [facility] Basophil percentage 25-50 SEEN /hpf 0-5 [facility] Bilirubin Test strip Ql (U)O rdered By: Dr. Donohue on 09-12-2022 Bilirubin Ql (U) Negative Negative [facility] Ketones Test strip Ql (U)Ord ered By: Dr. Donohue on 09-12-2022 Ketones Ql (U) Negative Negative [facility] Laboratory - Chemistry and C hemistry - challengeOrdered By: Dr. Donohue on 09-12-2022 ALP [Catalytic activity/Vol] 149 U/L 45-117 [facility] ALT [Catalytic activity/Vol] 26 U/L [facility] Globulin (S) [Mass/Vol] 5.5 g/dL 2.2-4.2 [facility] Mucus LM Ql (Urine sed)Order ed By: Dr. Donohue on 09-12-2022 Mucus Ql (Urine sed) 0 SEEN /hpf [facility] Nitrite Test strip Ql (U)Ord ered By: Dr. Donohue on 09-12-2022 Nitrite Ql (U) Negative Negative [facility] No Panel InformationOrdered By: Dr. Donohue on 09-12-2022 5.5 g/dL 2.2-4.2 [facility] 149 U/L 45-117 [facility] 26 U/L - [facility] Protein Test strip Ql (U)Ord ered By: Dr. Donohue on 09-12-2022 Protein Ql (U) 30 mg/dl Negative [facility] Serum or plasma albumin arnold urement (mass/volume)Ordered By: Dr. Donohue on 09-12-2022 Albumin [Mass/Vol] 3.1 g/dL 3.2-5.0 [facility] Serum or plasma albumin/glob ulin mass ratioOrdered By: Dr. Donohue on 09-12-2022 Albumin/Globulin [Mass ratio] 0.6 {ratio} 0.9-2.4 [facility] Squamous epithelial cells de tection in urine sediment by light microscopyOrdered By: Dr. Donohue on 09-12-2022 Epithelial cells.squamous LM Ql (Urine sed) 0-5 SEEN /hpf 5-10 [facility] Thin prep Papanicolaou smear with manual screeningOrdered By: Dr. Donohue on 09-12-2022 Thin prep Papanicolaou smear with manual screening 23 U/L 15-37 [facility] Comment on above: Slight Hemolysis, Re sult may be falsely increased. Urine blood detectionOrdered By: Dr. Donohue on 09-12-2022 RBC Ql (U) Negative Negative [facility] RBC Ql (U) 0 SEEN /hpf 0-5 [facility] Urine clarityOrdered By: Dr. Donohue on 09-12-2022 Clarity (U) Clear Clear [facility] Urine color determinationOrd ered By: Dr. Donohue on 09-12-2022 Color (U) Yellow Yellow [facility] Urine glucose detectionOrder ed By: Dr. Donohue on 09-12-2022 Glucose Ql (U) Normal mg/dl Normal [facility] Urine leukocyte esterase det ection by dipstickOrdered By: Dr. Donohue on 09-12-2022 Leukocyte esterase Test strip Ql (U) 500 /ul Negative [facility] Urine pHOrdered By: Dr. Seven darby on 09-12-2022 pH (U) 7.0 [pH] 5.0 - 8.0 [facility] Urine sediment bacteria coun t by microscopy (number/high power field)Ordered By: Dr. Donohue on 09-12-2022 Bacteria LM.HPF (Urine sed) [#/Area] 0 /[HPF] None Seen [facility] Urine specific gravity measu rementOrdered By: Dr. Donohue on 09-12-2022 Specific gravity (U) [Rel density] 1.010 1.002-1.030 [facility] Urobilinogen Auto test strip Ql (U)Ordered By: Dr. Donohue on 09-12-2022 Urobilinogen Ql (U) Normal mg/dl Normal [facility] Absolute lymphocyte countOrd ered By: Dr. Cervantes on 09-01-2022 Lymphocytes Auto (Unsp spec) [#/Vol] 2.00 10*3/uL 0.83-4.51 [facility] Bacteria identified Cx Nom ( U)Ordered By: Dr. Smith on 09-01-2022 Culture, urine Positive [facility] Basophil percentageOrdered B y: Dr. Cervantes on 09-01-2022 Basophil percentage 2.6 mg/dL 2.5-4.9 [facility] Basophil percentage 170 mg/dL 74-106 [facility] Basophil percentage 133 mmol/L 136-145 [facility] Basophil percentage 3.6 mmol/L 3.5-5.1 [facility] Basophil percentage 101 mmol/L 98-107 [facility] Basophils (Bld) [#/Vol] 12.2 10*3/uL 4.4-11.0 [facility] Basophils (Bld) [#/Vol] 8.3 10*3/uL 2.0-7.7 [facility] Basophils/100 WBC (Bld) 0.4 % 0-1 [facility] Basophils/100 WBC (Bld) 67.9 % 47-70 [facility] Basophils/100 WBC (Bld) 2.2 % 0-5 [facility] Chloride [Moles/Vol] 101 mmol/L 98-107 [facility] Eosinophils/100 WBC (Bld) 2.2 % 0-5 [facility] Glucose [Mass/Vol] 170 mg/dL 74-106 [facility] Comment on above: Fasting Glucose resu lt greater than or equal to 126 mg/dL suggests DIABETES MELLITUS per A.D.A. criteria. Neutrophils (Bld) [#/Vol] 8.3 10*3/uL 2.0-7.7 [facility] Neutrophils/100 WBC (Bld) 67.9 % 47-70 [facility] Potassium [Moles/Vol] 3.6 mmol/L 3.5-5.1 [facility] Sodium [Moles/Vol] 133 mmol/L 136-145 [facility] WBC (Bld) [#/Vol] 12.2 10*3/uL 4.4-11.0 [facility] Blood erythrocytes count (nu mber/volume)Ordered By: Dr. Cervantes on 09-01-2022 RBC (Bld) [#/Vol] 3.73 10*6/uL 4.2-5.4 [facility] Blood hemoglobin measurement (mass/volume)Ordered By: Dr. Cervantes on 09-01-2022 Hemoglobin (Bld) [Mass/Vol] 10.4 g/dL 12.0-15.0 [facility] Blood lymphocytes/100 leukoc ytesOrdered By: Dr. Cervantes on 09-01-2022 Lymphocytes/100 WBC (Bld) 16.4 % 19-41 [facility] Blood monocytes/100 leukocyt esOrdered By: Dr. Cervantes on 09-01-2022 Monocytes/100 WBC (Bld) 11.9 % 0-10 [facility] Blood platelet mean volumeOr dered By: Dr. Cervantes on 09-01-2022 Platelet mean volume (Bld) [Entitic vol] 10.0 fL 6.2-12.0 [facility] Culture, urineOrdered By: Dr Jacobo Smith on 09-01-2022 Bacteria identified Cx Nom (U) Positive [facility] Determination of erythrocyte mean corpuscular volume (MCV)Ordered By: Dr. Cervantes on 09-01-2022 MCV (RBC) [Entitic vol] 86.9 fL 81-99 [facility] Glucose Glucometer (BldC) [M ass/Vol]Ordered By: Dr. Cervantes on 09-01-2022 Glucose [Mass/Vol] 266 mg/dL 74-106 [facility] Comment on above: MANAGEMENT OF PATIEN T CARE PER NURSING PROTOCOL Hematocrit Auto (Bld) [Volum e fraction]Ordered By: Dr. Cervantes on 09-01-2022 Hematocrit (Bld) [Volume fraction] 32.4 % 37-47 [facility] Laboratory - Chemistry and C hemistry - challengeOrdered By: Dr. Cervantes on 09-01-2022 CO2 [Moles/Vol] 23.0 mmol/L 21.0-32.0 [facility] Magnesium [Mass/Vol] 2.0 mg/dL 1.6-2.6 [facility] Urea nitrogen/Creatinine [Mass ratio] 15.1 mg/mg 10- [facility] Laboratory - Hematology and Cell countsOrdered By: Dr. Cervantes on 09-01-2022 Erythrocyte distribution width (RBC) [Entitic vol] 44.6 fL 35.1-43.9 [facility] Erythrocyte distribution width (RBC) [Ratio] 14.0 % 11.6-14.6 [facility] Immature granulocytes/100 WBC (Bld) 1.200 % 0.0-0.9 [facility] Comment on above: IG% - Immature Granu locytes (promyelocytes, myelocytes and metamyelocytes) > 1% indicates that a LEFT SHIFT is Present. MCH (RBC) [Entitic mass] 27.9 pg 27.0-32.0 [facility] Nucleated RBC/100 WBC (Bld) [Ratio] 0 % 0-5 [facility] MCHC Auto (RBC) [Mass/Vol]Or dered By: Dr. Cervantes on 09-01-2022 MCHC (RBC) [Mass/Vol] 32.1 g/dL 32-36 [facility] No Panel InformationOrdered By: Dr. Cervantes on 09-01-2022 Estimated Creatinine Clearance Calc 32.26 ml/min [facility] Estimated GFR (MDRD) Amer 46 mL/min >60 [facility] Comment on above: GFR Calc Estimated GFR (MDRD) Non-Af Amer 38 mL/min >60 [facility] Comment on above: Non- GFR Calc Thyroid Stimulating Hormone (TSH) 1.92 uIU/mL 0.358-3.74 [facility] 27.9 pg 27.0-32.0 [facility] 14.0 % 11.6-14.6 [facility] 44.6 fl 35.1-43.9 [facility] 1.200 % 0.0-0.9 [facility] 0 % 0-5 [facility] 38 mL/min >60 [facility] 46 mL/min >60 [facility] 32.26 ml/min [facility] 15.1 RATIO 10-20 [facility] 2.0 mg/dL 1.6-2.6 [facility] 23.0 mmol/L 21.0-32.0 [facility] 1.92 uIU/mL 0.358-3.74 [facility] Platelets bldOrdered By: Dr. Cervantes on 09-01-2022 Platelets (Bld) [#/Vol] 274 10*3/uL 150-450 [facility] Serum or plasma calcium arnold urement (mass/volume)Ordered By: Dr. Cervantes on 09-01-2022 Calcium [Mass/Vol] 8.8 mg/dL 8.5-10.1 [facility] Serum or plasma creatinine m easurement (mass/volume)Ordered By: Dr. Cervantes on 09-01-2022 Creatinine [Mass/Vol] 1.46 mg/dL 0.55-1.02 [facility] Comment on above: The validity of the calculated GFR & GFRAA in patients over 70 years has not been determined. Clinical correlation is essential. Serum or plasma urea nitroge n measurement (mass/volume)Ordered By: Dr. Cervantes on 09-01-2022 Urea nitrogen [Mass/Vol] 22 mg/dL 7-18 [facility] Thin prep Papanicolaou smear with manual screeningOrdered By: Dr. Cervantes on 09-01-2022 Thin prep Papanicolaou smear with manual screening 9 5-15 [facility] Absolute lymphocyte counton 08-31-2022 Lymphocytes Auto (Unsp spec) [#/Vol] 1.33 10*3/uL 0.83-4.51 [facility] Work Phone: Basophil percentageOrdered B y: Dr. Hanson on 08-31-2022 Basophil percentage 6.9 g/dL 6.4-8.2 [facility] Basophil percentage 0.30 mg/dL 0.20-1.00 [facility] Bilirubin [Mass/Vol] 0.30 mg/dL 0.20-1.00 [facility] Comment on above: For patients on eltr ombopag therapy, use of Dimension [place] TBIL is not recommended. Protein [Mass/Vol] 6.9 g/dL 6.4-8.2 [facility] Basophil percentageOrdered B y: Dr. Smith on 08-31-2022 Basophil percentage 50-100 SEEN /hpf 0-5 [facility] Basophil percentage 1.2 mmol/L 0.4-2.0 [facility] Lactate [Moles/Vol] 1.2 mmol/L 0.4-2.0 [facility] Basophil percentageon 2021 Basophils/100 WBC (Bld) 0.6 % 0-1 [facility] Work Phone: Bilirubin [Mass/Vol] 0.40 mg/dL 0.20-1.00 [facility] Work Phone: Comment on above: For patients on eltr ombopag therapy, use of Dimension [place] TBIL is not recommended. Chloride [Moles/Vol] 100 mmol/L 98-107 [facility] Work Phone: Eosinophils/100 WBC (Bld) 0.3 % 0-5 [facility] Work Phone: Glucose [Mass/Vol] 361 mg/dL 74-106 [facility] Work Phone: Comment on above: Glucose result great er than or equal to 200 mg/dLsuggests DIABETES MELLITUS per A.D.A. criteria. Neutrophils (Bld) [#/Vol] 11.9 10*3/uL 2.0-7.7 [facility] Work Phone: Neutrophils/100 WBC (Bld) 81.0 % 47-70 [facility] Work Phone: Potassium [Moles/Vol] 4.1 mmol/L 3.5-5.1 [facility] Work Phone: Protein [Mass/Vol] 7.4 g/dL 6.4-8.2 [facility] Work Phone: Sodium [Moles/Vol] 132 mmol/L 136-145 [facility] Work Phone: WBC (Bld) [#/Vol] 14.7 10*3/uL 4.4-11.0 [facility] Work Phone: Bilirubin Test strip Ql (U)O rdered By: Dr. Smith on 08-31-2022 Bilirubin Ql (U) Negative Negative [facility] Blood erythrocytes count (nu mber/volume)on 08-31-2022 RBC (Bld) [#/Vol] 3.98 10*6/uL 4.2-5.4 [facility] Work Phone: Blood hemoglobin measurement (mass/volume)on 08-31-2022 Hemoglobin (Bld) [Mass/Vol] 11.1 g/dL 12.0-15.0 [facility] Work Phone: Blood lymphocytes/100 leukoc yteson 08-31-2022 Lymphocytes/100 WBC (Bld) 9.1 % 19-41 [facility] Work Phone: Blood monocytes/100 leukocyt eson 08-31-2022 Monocytes/100 WBC (Bld) 7.2 % 0-10 [facility] Work Phone: Blood platelet mean volumeon 08-31-2022 Platelet mean volume (Bld) [Entitic vol] 9.5 fL 6.2-12.0 [facility] Work Phone: Determination of erythrocyte mean corpuscular volume (MCV)on 08-31-2022 MCV (RBC) [Entitic vol] 88.4 fL 81-99 [facility] Work Phone: Hematocrit Auto (Bld) [Volum e fraction]on 08-31-2022 Hematocrit (Bld) [Volume fraction] 35.2 % 37-47 [facility] Work Phone: Iron measurement (mass/mass) Ordered By: Dr. Hanson on 08-31-2022 Iron (Unsp spec) [Mass/Mass] 17 ug/dL 50-170 [facility] Ketones Test strip Ql (U)Ord ered By: Dr. Smith on 08-31-2022 Ketones Ql (U) 5 mg/dl Negative [facility] Laboratory - Chemistry and C hemistry - challengeOrdered By: Dr. Hanson on 08-31-2022 ALP [Catalytic activity/Vol] 96 U/L 45-117 [facility] ALT [Catalytic activity/Vol] 15 U/L [facility] Globulin (S) [Mass/Vol] 4.6 g/dL 2.2-4.2 [facility] Laboratory - Chemistry and C hemistry - challengeon 08-31-2022 ALP [Catalytic activity/Vol] 106 U/L 45-117 [facility] Work Phone: [phone] ALT [Catalytic activity/Vol] 18 U/L [facility] Work Phone: [phone] CO2 [Moles/Vol] 24.0 mmol/L 21.0-32.0 [facility] Work Phone: [phone] Globulin (S) [Mass/Vol] 4.7 g/dL 2.2-4.2 [facility] Work Phone: [phone] Urea nitrogen/Creatinine [Mass ratio] 13.8 mg/mg 10-20 [facility] Work Phone: [phone] Laboratory - Hematology and Cell countson 08-31-2022 Erythrocyte distribution width (RBC) [Entitic vol] 45.5 fL 35.1-43.9 [facility] Work Phone: Erythrocyte distribution width (RBC) [Ratio] 14.0 % 11.6-14.6 [facility] Work Phone: [phone] Immature granulocytes/100 WBC (Bld) 1.800 % 0.0-0.9 [facility] Work Phone: [phone] Comment on above: IG% - Immature Granu locytes (promyelocytes, myelocytes and metamyelocytes) > 1% indicates that a LEFT SHIFT is Present. MCH (RBC) [Entitic mass] 27.9 pg 27.0-32.0 [facility] Work Phone: Nucleated RBC/100 WBC (Bld) [Ratio] 0 % 0-5 [facility] Work Phone: MCHC Auto (RBC) [Mass/Vol]on 08-31-2022 MCHC (RBC) [Mass/Vol] 31.5 g/dL 32-36 [facility] Work Phone: Mucus LM Ql (Urine sed)Order ed By: Dr. Smith on 08-31-2022 Mucus Ql (Urine sed) 0 SEEN /hpf [facility] Nitrite Test strip Ql (U)Ord ered By: Dr. Smith on 08-31-2022 Nitrite Ql (U) Negative Negative [facility] No Panel InformationOrdered By: Dr. Hanson on 08-31-2022 4.6 g/dL 2.2-4.2 [facility] 96 U/L 45-117 [facility] 15 U/L 13-56 [facility] Total Iron Binding Capacity 274 ug/dL 250-450 [facility] 274 ug/dL 250-450 [facility] No Panel Informationon 08-31 Estimated Creatinine Clearance Calc 26.02 ml/min [facility] Work Phone: Estimated GFR (MDRD) Amer 36 mL/min >60 [facility] Work Phone: Comment on above: GFR Calc Estimated GFR (MDRD) Non-Af Amer 29 mL/min >60 [facility] Work Phone: Comment on above: Non- GFR Calc Platelets bldon 08-31-2022 Platelets (Bld) [#/Vol] 273 10*3/uL 150-450 [facility] Work Phone: Protein Test strip Ql (U)Ord ered By: Dr. Smith on 08-31-2022 Protein Ql (U) 100 mg/dl Negative [facility] Serum or plasma albumin arnold urement (mass/volume)Ordered By: Dr. Hanson on 08-31-2022 Albumin [Mass/Vol] 2.3 g/dL 3.2-5.0 [facility] Serum or plasma albumin arnold urement (mass/volume)on 08-31-2022 Albumin [Mass/Vol] 2.7 g/dL 3.2-5.0 [facility] Work Phone: Serum or plasma albumin/glob ulin mass ratioOrdered By: Dr. Hanson on 08-31-2022 Albumin/Globulin [Mass ratio] 0.5 {ratio} 0.9-2.4 [facility] Serum or plasma albumin/glob ulin mass ratioon 08-31-2022 Albumin/Globulin [Mass ratio] 0.6 {ratio} 0.9-2.4 [facility] Work Phone: [phone] Serum or plasma calcium arnold urement (mass/volume)on 08-31-2022 Calcium [Mass/Vol] 8.8 mg/dL 8.5-10.1 [facility] Work Phone: [phone] Serum or plasma creatinine m easurement (mass/volume)on 08-31-2022 Creatinine [Mass/Vol] 1.81 mg/dL 0.55-1.02 [facility] Work Phone: Comment on above: The validity of the calculated GFR & GFRAA in patients over 70 years has not been determined. Clinical correlation is essential. Serum or plasma iron saturat ion measurement (mass fraction)Ordered By: Dr. Hanson on 08-31-2022 Iron saturation [Mass fraction] 6.2 % 15.0-55.0 [facility] Serum or plasma urea nitroge n measurement (mass/volume)on 08-31-2022 Urea nitrogen [Mass/Vol] 25 mg/dL 7-18 [facility] Work Phone: [phone] Squamous epithelial cells de tection in urine sediment by light microscopyOrdered By: Dr. Smith on 08-31-2022 Epithelial cells.squamous LM Ql (Urine sed) 0 SEEN /hpf 5-10 [facility] Thin prep Papanicolaou smear with manual screeningOrdered By: Dr. Hanson on 08-31-2022 Thin prep Papanicolaou smear with manual screening 12 U/L 15- [facility] Thin prep Papanicolaou smear with manual screeningon 08-31-2022 Thin prep Papanicolaou smear with manual screening 18 U/L 1537 [facility] Work Phone: [phone] Thin prep Papanicolaou smear with manual screening 8 5-15 [facility] Work Phone: [phone] Urine blood detectionOrdered By: Dr. Smith on 08-31-2022 RBC Ql (U) 250 /ul Negative [facility] RBC Ql (U) 10-25 SEEN /hpf 0-5 [facility] Urine clarityOrdered By: Dr. Smith on 08-31-2022 Clarity (U) Sl. Cloudy Clear [facility] Urine color determinationOrd ered By: Dr. Smith on 08-31-2022 Color (U) Yellow Yellow [facility] Urine glucose detectionOrder ed By: Dr. Smith on 08-31-2022 Glucose Ql (U) 250 mg/dl Normal [facility] Urine leukocyte esterase det ection by dipstickOrdered By: Dr. Smith on 08-31-2022 Leukocyte esterase Test strip Ql (U) 500 /ul Negative [facility] Urine pHOrdered By: Dr. Meme dunaway on 08-31-2022 pH (U) 6.5 [pH] 5.0 - 8.0 [facility] Urine sediment bacteria coun t by microscopy (number/high power field)Ordered By: Dr. Smith on 08-31-2022 Bacteria LM.HPF (Urine sed) [#/Area] 1 /[HPF] None Seen [facility] Urine specific gravity measu rementOrdered By: Dr. Smith on 08-31-2022 Specific gravity (U) [Rel density] 1.015 1.002-1.030 [facility] Urobilinogen Auto test strip Ql (U)Ordered By: Dr. Smith on 08-31-2022 Urobilinogen Ql (U) Normal mg/dl Normal [facility] Whole blood hemoglobin A1c/t otal hemoglobin ratio (mass fraction)Ordered By: Dr. Hanson on 08-31-2022 HbA1c (Bld) [Mass fraction] 9.4 % 3.8-5.6 [facility] Comment on above: Normal < 5.7 % Predi abetic 5.7 - 6.4 % Diabetic >or= 6.5 % Please note range changes. Laboratory - Drug toxicology Ordered By: Dr. Fuentes on 07-28-2022 Amphetamines Ql (U) Negative <1000 ng/mL [facility] Benzodiazepines Ql (U) Negative < 200 ng/mL [facility] Cannabinoids Screen Ql (U) Negative < 50 ng/mL [facility] Cocaine Ql (U) Negative < 300 ng/mL [facility] Opiates Ql (U) Negative < 300 ng/mL [facility] No Panel InformationOrdered By: Dr. Fuentes on 07-28-2022 MDMA (Ecstasy) Screen Negative < 500 ng/mL [facility] Miscellaneous Test See comment [facility] Comment on above: TEST RESULT LIMITSTr amadol Positive [id number] [place] [id number] Aocjqy=100 TESTING PERFORMED AT [facility]. ORIGINAL REPORT ON FILE IN LAB CONTAINS ADDITIONAL TEST SITE INFORMATION. Urine Barbiturates Screen Negative < 200 ng/mL [facility] Urine Drug Screen Comment [facility] Comment on above: CONFIRMATORY TESTING FOR ALL [...] Methadone Screen Negative < 300 ng/mL [facility] Negative < 50 ng/mL [facility] See comment [facility] Urine phencyclidine (PCP) de tectionOrdered By: Dr. Fuentes on 07-28-2022 Phencyclidine Ql (U) Negative < 25 ng/mL [facility] CATIE SCREENING W TOMOon 07-14 [facility] Absolute lymphocyte countOrd ered By: Dr. Meyers on 06-18-2022 Lymphocytes Auto (Unsp spec) [#/Vol] 1.46 10*3/uL 0.83-4.51 [facility] Basophil percentageOrdered B y: Dr. Meyers on 06-18-2022 Basophil percentage 662 mg/dL 74-106 [facility] Basophil percentage 131 mmol/L 136-145 [facility] Basophil percentage 4.0 mmol/L 3.5-5.1 [facility] Basophil percentage 100 mmol/L 98-107 [facility] Basophils (Bld) [#/Vol] 18.8 10*3/uL 4.4-11.0 [facility] Basophils (Bld) [#/Vol] 15.6 10*3/uL 2.0-7.7 [facility] Basophils/100 WBC (Bld) 0.4 % 0-1 [facility] Basophils/100 WBC (Bld) 82.7 % 47-70 [facility] Basophils/100 WBC (Bld) 0.3 % 0-5 [facility] Chloride [Moles/Vol] 100 mmol/L 98-107 [facility] Eosinophils/100 WBC (Bld) 0.3 % 0-5 [facility] Glucose [Mass/Vol] 662 mg/dL 74-106 [facility] Comment on above: Critical Result(s) C alled at: 22:27:38 06/18/2022 by: Dean Merlos to Ofelia [employer] RN (ED). Results read back by same.Glucose result greater than or equal to 200 mg/dLsuggests DIABETES MELLITUS per A.D.A. criteria. Neutrophils (Bld) [#/Vol] 15.6 10*3/uL 2.0-7.7 [facility] Neutrophils/100 WBC (Bld) 82.7 % 47-70 [facility] Potassium [Moles/Vol] 4.0 mmol/L 3.5-5.1 [facility] Sodium [Moles/Vol] 131 mmol/L 136-145 [facility] WBC (Bld) [#/Vol] 18.8 10*3/uL 4.4-11.0 [facility] Basophil percentageOrdered B y: ED PROVIDER on 06-18-2022 Basophil percentage 25-50 SEEN /hpf 0-5 [facility] Bilirubin Test strip Ql (U)O rdered By: ED PROVIDER on 06-18-2022 Bilirubin Ql (U) Negative Negative [facility] Blood erythrocytes count (nu mber/volume)Ordered By: Dr. Meyers on 06-18-2022 RBC (Bld) [#/Vol] 4.31 10*6/uL 4.2-5.4 [facility] Blood hemoglobin measurement (mass/volume)Ordered By: Dr. Meyers on 06-18-2022 Hemoglobin (Bld) [Mass/Vol] 12.1 g/dL 12.0-15.0 [facility] Blood lymphocytes/100 leukoc ytesOrdered By: Dr. Meyres on 06-18-2022 Lymphocytes/100 WBC (Bld) 7.8 % 19-41 [facility] Blood monocytes/100 leukocyt esOrdered By: Dr. Meyers on 06-18-2022 Monocytes/100 WBC (Bld) 6.5 % 0-10 [facility] Blood platelet mean volumeOr dered By: Dr. Meyers on 06-18-2022 Platelet mean volume (Bld) [Entitic vol] 9.4 fL 6.2-12.0 [facility] Determination of erythrocyte mean corpuscular volume (MCV)Ordered By: Dr. Meyers on 06-18-2022 MCV (RBC) [Entitic vol] 87.0 fL 81-99 [facility] Hematocrit Auto (Bld) [Volum e fraction]Ordered By: Dr. Meyers on 06-18-2022 Hematocrit (Bld) [Volume fraction] 37.5 % 37-47 [facility] Ketones Test strip Ql (U)Ord ered By: ED PROVIDER on 06-18-2022 Ketones Ql (U) 15 mg/dl Negative [facility] Laboratory - Chemistry and C hemistry - challengeOrdered By: Dr. Meyers on 06-18-2022 CO2 [Moles/Vol] 19.0 mmol/L 21.0-32.0 [facility] Urea nitrogen/Creatinine [Mass ratio] 17.9 mg/mg 10-20 [facility] Laboratory - Hematology and Cell countsOrdered By: Dr. Meyers on 06-18-2022 Erythrocyte distribution width (RBC) [Entitic vol] 42.7 fL 35.1-43.9 [facility] Erythrocyte distribution width (RBC) [Ratio] 13.5 % 11.6-14.6 [facility] Immature granulocytes/100 WBC (Bld) 2.300 % 0.0-0.9 [facility] Comment on above: IG% - Immature Granu locytes (promyelocytes, myelocytes and metamyelocytes) > 1% indicates that a LEFT SHIFT is Present. MCH (RBC) [Entitic mass] 28.1 pg 27.0-32.0 [facility] Nucleated RBC/100 WBC (Bld) [Ratio] 0 % 0-5 [facility] MCHC Auto (RBC) [Mass/Vol]Or dered By: Dr. Meyers on 06-18-2022 MCHC (RBC) [Mass/Vol] 32.3 g/dL 32-36 [facility] Mucus LM Ql (Urine sed)Order ed By: ED PROVIDER on 06-18-2022 Mucus Ql (Urine sed) 0 SEEN /hpf [facility] Nitrite Test strip Ql (U)Ord ered By: ED PROVIDER on 06-18-2022 Nitrite Ql (U) Negative Negative [facility] No Panel InformationOrdered By: Dr. Meyers on 06-18-2022 Estimated Creatinine Clearance Calc 31.41 ml/min [facility] Estimated GFR (MDRD) Amer 42 mL/min >60 [facility] Comment on above: GFR Calc Estimated GFR (MDRD) Non-Af Amer 35 mL/min >60 [facility] Comment on above: Non- GFR Calc 28.1 pg 27.0-32.0 [facility] 13.5 % 11.6-14.6 [facility] 42.7 fl 35.1-43.9 [facility] 2.300 % 0.0-0.9 [facility] 0 % 0-5 [facility] 35 mL/min >60 [facility] 42 mL/min >60 [facility] 31.41 ml/min [facility] 17.9 RATIO 10-20 [facility] 19.0 mmol/L 21.0-32.0 [facility] Platelets bldOrdered By: Dr. Meyers on 06-18-2022 Platelets (Bld) [#/Vol] 462 10*3/uL 150-450 [facility] Protein Test strip Ql (U)Ord ered By: ED PROVIDER on 06-18-2022 Protein Ql (U) 30 mg/dl Negative [facility] Serum or plasma calcium arnold urement (mass/volume)Ordered By: Dr. Meyers on 06-18-2022 Calcium [Mass/Vol] 9.1 mg/dL 8.5-10.1 [facility] Serum or plasma creatinine m easurement (mass/volume)Ordered By: Dr. Meyers on 06-18-2022 Creatinine [Mass/Vol] 1.56 mg/dL 0.55-1.02 [facility] Comment on above: The validity of the calculated GFR & GFRAA in patients over 70 years has not been determined. Clinical correlation is essential. Serum or plasma urea nitroge n measurement (mass/volume)Ordered By: Dr. Meyers on 06-18-2022 Urea nitrogen [Mass/Vol] 28 mg/dL 7-18 [facility] Squamous epithelial cells de tection in urine sediment by light microscopyOrdered By: ED PROVIDER on 06-18-2022 Epithelial cells.squamous LM Ql (Urine sed) 0-5 SEEN /hpf 5-10 [facility] Thin prep Papanicolaou smear with manual screeningOrdered By: Dr. Meyers on 06-18-2022 Thin prep Papanicolaou smear with manual screening 12 5-15 [facility] Urine blood detectionOrdered By: ED PROVIDER on 06-18-2022 RBC Ql (U) 150 /ul Negative [facility] RBC Ql (U) 5-10 SEEN /hpf 0-5 [facility] Urine clarityOrdered By: ED PROVIDER on 06-18-2022 Clarity (U) Clear Clear [facility] Urine color determinationOrd ered By: ED PROVIDER on 06-18-2022 Color (U) Straw Yellow [facility] Urine glucose detectionOrder ed By: ED PROVIDER on 06-18-2022 Glucose Ql (U) 1000 mg/dl Normal [facility] Urine leukocyte esterase det ection by dipstickOrdered By: ED PROVIDER on 06-18-2022 Leukocyte esterase Test strip Ql (U) 25 /ul Negative [facility] Urine pHOrdered By: ED PROVI VIV on 06-18-2022 pH (U) 6.5 [pH] 5.0 - 8.0 [facility] Urine sediment bacteria coun t by microscopy (number/high power field)Ordered By: ED PROVIDER on 06-18-2022 Bacteria LM.HPF (Urine sed) [#/Area] RARE /hpf None Seen [facility] Urine specific gravity measu rementOrdered By: ED PROVIDER on 06-18-2022 Specific gravity (U) [Rel density] 1.010 1.002-1.030 [facility] Urobilinogen Auto test strip Ql (U)Ordered By: ED PROVIDER on 06-18-2022 Urobilinogen Ql (U) Normal mg/dl Normal [facility] LG Jt Injection/Arthrocentes is: R kneeon 05-25-2022 Eliecer Hill CNP 05/25/2022 11:56 AM LG Jt Injection/Arthrocentesi s: R knee Performed by: Eliecer Hill CNP Authorized by: Eliecer Hill CNP CPT 34219 - Large Joint Arthrocentesis: Consent given by: [...] the procedure well with no immediate complications [facility] Glucose (Bld) [Mass/Vol]on 0 05-09-2022 Glucose [Mass/Vol] 215 mg/dL High 65 - 99 mg/dL [facility] Interpretation and review of laboratory results Abnormal [facility] Glucose [Mass/Vol] 193 mg/dL High 65 - 99 mg/dL [facility] Interpretation and review of laboratory results Abnormal [facility] XR Chest AP/PA and LATon Lungs are clear. Workstation ID: [id number] transOMIC EXAMINATION: XR CHEST AP/PA AND LAT 05/09/2022 [...] IMPRESSION: Lungs are clear. Workstation ID: [id number] [facility] Radiology Study observation (narrative) [facility] XR Chest AP/PA and LATOrdere d By: Tad Davies on 05-09-2022 [facility] Work Phone: Basic metabolic 2000 panelon 05-08-2022 Anion gap [Moles/Vol] 15 mmol/L 10 - 2 0 mmol/L [facility] Calcium [Mass/Vol] 9.7 mg/dL 8.4 - 10. 2 mg/dL [facility] Chloride [Moles/Vol] 106 mmol/L 98 - 10 8 mmol/L [facility] Creatinine [Mass/Vol] 0.90 mg/dL 0.60 - 1.20 mg/dL [facility] GFR/1.73 sq M.predicted CKD-EPI (S/P/Bld) [Vol rate/Area] 69 - PINF [facility] Comment on above: Estimated GFR was ca lculated using the 2020 CKD-EPI creatinine equation. Glucose [Mass/Vol] 89 mg/dL 65 - 99 mg/dL [facility] HCO3 [Moles/Vol] 25 mmol/L 21 - 32 mmol/L [facility] Interpretation and review of laboratory results Normal [facility] Potassium [Moles/Vol] 4.0 mmol/L 3.5 - 5.1 mmol/L [facility] Sodium [Moles/Vol] 142 mmol/L 135 - 145 mmol/L [facility] Urea nitrogen [Mass/Vol] 15 mg/dL 8 - 25 mg/dL [facility] Urea nitrogen/Creatinine [Mass ratio] 16.7 mg/mg 10 - 20 [facility] has implemented the eGFR calculation approach that does not have a coefficient for race that conforms to the NKF-ASN Task Force Recommendations. [facility] CBC Auto Differentialon 0 Basophils (Bld) [#/Vol] 0.08 10*3/uL [facility] Basophils/100 WBC (Bld) 0.7 % [facility] Eosinophils (Bld) [#/Vol] 0.58 10*3/uL High [facility] Eosinophils/100 WBC (Bld) 4.7 % [facility] Erythrocyte distribution width (RBC) [Entitic vol] 13.7 % 11.6 - 14.8 % [facility] Hematocrit (Bld) [Volume fraction] 40.1 % 36 - 46 % [facility] Hemoglobin (Bld) [Mass/Vol] 12.9 g/dL 12 - 16 g/dL [facility] Immature granulocytes (Bld) [#/Vol] 0.18 10*3/uL [facility] Immature granulocytes/100 WBC (Bld) 1.50 % [facility] Comment on above: The IG parameter is the percentage of metamyelocytes, myelocytes and promyelocytes. An immature granulocyte count (IG) of 1% or more suggests the possibility of infection, an IG count of 3% is very likely related to an infection. Interpretation and review of laboratory results Abnormal [facility] Lymphocytes (Bld) [#/Vol] 3.30 10*3/uL [facility] Lymphocytes/100 WBC (Bld) 26.9 % [facility] MCH (RBC) [Entitic mass] 28.9 pg 26 - 34 pg [facility] MCHC (RBC) [Mass/Vol] 32.2 g/dL 31 - 3 7 g/dL [facility] MCV (RBC) [Entitic vol] 89.7 fL 80 - 100 fL [facility] Monocytes (Bld) [#/Vol] 0.96 10*3/uL [facility] Monocytes/100 WBC (Bld) 7.8 % [facility] Neutrophils (Bld) [#/Vol] 7.19 10*3/uL High [facility] Neutrophils/100 WBC (Bld) 58.4 % [facility] Nucleated RBC (Bld) [#/Vol] 0.00 10*3/uL [facility] Nucleated RBC/100 WBC (Bld) [Ratio] 0.0 % [facility] Platelet mean volume (Bld) [Entitic vol] 9.2 fL Low 9.4 - 12.4 fL [facility] Platelets (Bld) [#/Vol] 341 10*3/uL [facility] RBC (Bld) [#/Vol] 4.47 10*6/uL [facility] WBC (Bld) [#/Vol] 12.29 10*3/uL [facility] EKGon 05-08-2022 Ordered by an unspecified provider. [facility] EKG 12-leadon 05-08-2022 Atrial Rate 90 BPM [facility] P Hoagland 45 degrees [facility] P-R Interval 164 ms [facility] Q-T Interval 372 ms [facility] QRS Duration 70 ms [facility] QTC Calculation (Bezet) 455 ms [facility] R Hoagland -6 degrees [facility] T Hoagland 30 degrees [facility] Ventricular Rate 90 BPM [facility] Normal sinus rhythm Normal ECG Confirmed by Uvaldo Espinosa M.D. ([id number]) on 05/08/2022 6:45:08 AM [facility] EP Studyon 05-08-2022 Table formatting fro m [...] fluoroscopic guidance using preformed stylette's. A steep NICARAGUAN fluoroscopy image was obtained to appreciate the [...] 0.4ms Implants Pacemaker Pacer Mri L311 Accolade - [id number] - Existing Implant Inventory item: PACER MRI L311 [address] Model/Cat number: L311 Serial number: [id number] [employer] Manager: JOAN TOBAR Device identifier: [id number] Device identifier type: GS1 Implant Date: 12/15/2021 GUDID Information Request status Successful Brand name: Itiva MRI DR Version/Model: L311 Company name: [employer] MRI safety info as of 12/15/21: MR Conditional Contains dry or latex rubber: No GMDN P.T. name: Dual-chamber implantable pacemaker, rate-responsive As of 05/08/2022 Status: Existing Implant Mode: DDD Lower Rate: 60 Upper Rate: 130 Antibiotic Pouch Envelope Anti-Bacterial Aigis/Tyrx Pacer Resorbable Mesh - [id number] - Implanted Inventory item: ENVELOPE ANTI-BACTERIAL AIGIS/TYRX PACER RESORBABLE MESH Model/Cat number: [id number] [employer] Manager: [employer] Lot number: [id number] As of 05/08/2022 Status: Implanted Pacing Lead Lead Pacing [phone] Mri Ingevity Plus - [id number] - (more content not included)... [employer] CV [facility] Radiology Study observation (narrative) Echocardiogram limited with contrastOrdered By: Jaguar Forbes on 05-08-2022 EF 67.3872 % [facility] Work Phone: [facility] Work Phone: Echocardiogram limited with contraston 05-08-2022 Patient Info Name: KRISTEN MANN Age: 72 years : 1950 Gender: Female Ht: 170 cm Wt: 90 kg BSA: 2.09 m2 HR: 79 bpm BP: 133 / 77 mmHg Exam Date: 05/08/2022 8:33 AM Patient Status: Inpatient Rotor Blade Installer: Harley Klein MHA, RDCS Exam Type: ECHOCARDIOGRAM LIMITED WITH CONTRAST Study Info Indications I31.3 - Pericardial effusion (noninflammatory) - Other Attending Physician: PARESH OTT [id number] Primary Nurse: Chiki Rodriguez RN BMI: 31.01 [...] MOD) 14 ml/m2 (more content not included)... FUJI SYNAPSE CV Jaguar Forbes, DO - 05/08/2022 Patient Info Name: KRISTEN MANN Age: 72 years : 1950 Gender: Female Ht: 170 cm Wt: 90 kg BSA: 2.09 m2 HR: 79 bpm BP: 133 / 77 mmHg Exam Date: 05/08/2022 8:33 AM Patient Status: Inpatient Rotor Blade Installer: Harley Klein MHA, NENA Exam Type: ECHOCARDIOGRAM LIMITED WITH CONTRAST Study Info Indications I31.3 - Pericardial effusion (noninflammatory) - Other Attending Physician: PARESH OTT [id number] Primary Nurse: Chiki Rodriguez RN BMI: 31.01 [...] ml/m2 16-34 Report Signatures Finalized by Jaguar Forbes DO (Paul) on 05/08/2022 09:08 AM [facility] Radiology Study observation (narrative) [facility] Glucose (Bld) [Mass/Vol]on 0 05-08-2022 Glucose [Mass/Vol] 150 mg/dL High 65 - 99 mg/dL [facility] Interpretation and review of laboratory results Abnormal [facility] Glucose [Mass/Vol] 134 mg/dL High 65 - 99 mg/dL [facility] Interpretation and review of laboratory results Abnormal [facility] Glucose [Mass/Vol] 166 mg/dL High 65 - 99 mg/dL [facility] Interpretation and review of laboratory results Abnormal [facility] Glucose [Mass/Vol] 128 mg/dL High 65 - 99 mg/dL [facility] Interpretation and review of laboratory results Abnormal [facility] Glucose [Mass/Vol] 127 mg/dL High 65 - 99 mg/dL [facility] Interpretation and review of laboratory results Abnormal [facility] XR Chest 1 Viewon 05-08-2022 No acute disease Workstation ID: [id number] transOMIC EXAMINATION: XR CHEST PA/AP 05/08/2022 1:27 pm [...] fracture or visible bone lesion. OTHER: Negative. [facility] Tad Salazar MD - 05/08/2022 EXAMINATION: XR CHEST PA/AP [...] IMPRESSION: No acute disease Workstation ID: [id number] [facility] Radiology Study observation (narrative) [place] XR Chest 1 ViewOrdered By: Lara Salazar on 05-08-2022 [facility] Work Phone: Basic metabolic 1998 panelon 05-07-2022 Anion gap [Moles/Vol] 19 mmol/L 10 - 2 0 mmol/L [facility] Chloride [Moles/Vol] 104 mmol/L 98 - 10 8 mmol/L [facility] Creatinine [Mass/Vol] 1.11 mg/dL 0.60 - 1.20 mg/dL [facility] GFR/1.73 sq M.predicted CKD-EPI (S/P/Bld) [Vol rate/Area] 54 Low - PINF [facility] Comment on above: Estimated GFR was ca lculated using the 2020 CKD-EPI creatinine equation. Glucose [Mass/Vol] 142 mg/dL High 65 - 99 mg/dL [facility] HCO3 [Moles/Vol] 21 mmol/L 21 - 32 mmol/L [facility] Interpretation and review of laboratory results Abnormal [facility] Potassium [Moles/Vol] 4.3 mmol/L 3.5 - 5.1 mmol/L [facility] Sodium [Moles/Vol] 140 mmol/L 135 - 145 mmol/L [facility] Urea nitrogen [Mass/Vol] 16 mg/dL 8 - 25 mg/dL [facility] Urea nitrogen/Creatinine [Mass ratio] 14.4 mg/mg 10 - 20 [facility] has implemented the eGFR calculation approach that does not have a coefficient for race that conforms to the NKF-ASN Task Force Recommendations. [facility] CBC Auto Differentialon 09-0 -2021 Basophils (Bld) [#/Vol] 0.08 10*3/uL [facility] Basophils/100 WBC (Bld) 0.7 % [facility] Eosinophils (Bld) [#/Vol] 0.33 10*3/uL [facility] Eosinophils/100 WBC (Bld) 3.0 % [facility] Erythrocyte distribution width (RBC) [Entitic vol] 13.9 % 11.6 - 14.8 % [facility] Hematocrit (Bld) [Volume fraction] 39.9 % 36 - 46 % [facility] Hemoglobin (Bld) [Mass/Vol] 12.6 g/dL 12 - 16 g/dL [facility] Immature granulocytes (Bld) [#/Vol] 0.15 10*3/uL [facility] Immature granulocytes/100 WBC (Bld) 1.40 % [facility] Comment on above: The IG parameter is the percentage of metamyelocytes, myelocytes and promyelocytes. An immature granulocyte count (IG) of 1% or more suggests the possibility of infection, an IG count of 3% is very likely related to an infection. Interpretation and review of laboratory results Abnormal [facility] Lymphocytes (Bld) [#/Vol] 2.04 10*3/uL [facility] Lymphocytes/100 WBC (Bld) 18.7 % [facility] MCH (RBC) [Entitic mass] 29.0 pg 26 - 34 pg [facility] MCHC (RBC) [Mass/Vol] 31.6 g/dL 31 - 3 7 g/dL [facility] MCV (RBC) [Entitic vol] 91.7 fL 80 - 100 fL [facility] Monocytes (Bld) [#/Vol] 0.97 10*3/uL High [facility] Monocytes/100 WBC (Bld) 8.9 % [facility] Neutrophils (Bld) [#/Vol] 7.36 10*3/uL High [facility] Neutrophils/100 WBC (Bld) 67.3 % [facility] Nucleated RBC (Bld) [#/Vol] 0.00 10*3/uL [facility] Nucleated RBC/100 WBC (Bld) [Ratio] 0.0 % [facility] Platelet mean volume (Bld) [Entitic vol] 9.3 fL Low 9.4 - 12.4 fL [facility] Platelets (Bld) [#/Vol] 328 10*3/uL [facility] RBC (Bld) [#/Vol] 4.35 10*6/uL [facility] WBC (Bld) [#/Vol] 10.93 10*3/uL [facility] Glucose (Bld) [Mass/Vol]on 0 05-07-2022 Glucose [Mass/Vol] 116 mg/dL High 65 - 99 mg/dL [facility] Interpretation and review of laboratory results Abnormal [facility] Gold Topon 05-07-2022 Extra Tube Hold for add-ons. [facility] Comment on above: Auto resulted. No Panel Informationon 05-07 Extra Tube Hold for add-ons. [facility] Comment on above: Auto resulted. [facility] Troponin x 2 (Now and Repeat in 3 hours)Ordered By: Behzad James on 05-07-2022 Delta Difference Troponin T -6 ng/L < = -/+ 7 change [facility] Interp Troponin T Delta Change Probable non-acute cardiac injury or late presentation of acute injury. [facility] Interpretation and review of laboratory results Abnormal [facility] Troponin T 28 ng/L Critically high NINF - 14 ng/L [facility] Troponin x 2 (Now and Repeat in 3 hours)Ordered By: Edilberto Nicole on 05-07-2022 Interpretation and review of laboratory results Abnormal [facility] Troponin T 34 ng/L Critically high NINF - 14 ng/L [facility] Troponin T Interpretation Possible acute cardiac injury. [facility] XR Chest 1 Viewon 05-07-2022 No radiographic evidence for acute cardiopulmonary disease on this single view of the chest. Workstation ID: [id number] [facility] EXAMINATION: XR CHEST PA/AP 06/21/2021 1:19 pm [...] chest. No acute osseous abnormality is seen. [facility] Choco Mullins MD - 05/07/2022 EXAMINATION: XR CHEST PA/AP [...] view of the chest. Workstation ID: [id number] [facility] Radiology Study observation (narrative) XR Chest 1 ViewOrdered By: Annie Mullins on 05-07-2022 [facility] Work Phone: LG Jt Injection/Arthrocentes is: R kneeon 02-12-2022 Eliecer Hill, FREDDIE 02/12/2022 4:05 PM LG Jt Injection/Arthrocentesi s: R knee Date/Time: 02/12/2022 4:04 PM Performed by: Eliecer Hill CNP Authorized by: Eliecer Hill CNP CPT 32126 - Large Joint Arthrocentesis: Consent given by: [...] the procedure well with no immediate complications [facility] Gram stain for investigation of transfusion reactionon 02-10-2022 Microscopic observation Gram stain Nom (Unsp spec) [facility] Work Phone: LG Jt Injection/Arthrocentes is: R glenohumeralon 01-08-2022 Eliecer Hill CNP 01/08/2022 4:42 PM LG Jt Injection/Arthrocentesi s: R glenohumeral Performed by: Eliecer Hill CNP Authorized by: Eliecer Hill CNP CPT 85336 - Large Joint Arthrocentesis: Consent given by: [...] the procedure well with no immediate complications [facility] Echocardiogram limitedon Patient Info Name: KRISTEN MANN Age: 71 years : 1950 Gender: Female Ht: 168 cm Wt: 88 kg BSA: 2.06 m2 HR: 107 bpm BP: 134 / 77 mmHg Heart Rhythm: Sinus Rhythm Technical Quality: Fair Exam Date: 12/23/2021 2:05 PM Patient Status: Outpatient Rotor Blade Installer: Verna Desir RCDS Exam Type: ECHOCARDIOGRAM LIMITED Study Info Indications I31.3 - Pericardial effusion (noninflammatory) Referring Physician: LENARD DAS ; [id number] BMI: 31.47 kg/m2 Summary 1. A Limited [...] Patricia Dowling MD on 12/23/2021 03:01 PM Patricia Modi MD - 12/23/2021 Patient Info Name: KRISTEN MANN Age: 71 years : 1950 Gender: Female Ht: 168 cm Wt: 88 kg BSA: 2.06 m2 HR: 107 bpm BP: 134 / 77 mmHg Heart Rhythm: Sinus Rhythm Technical Quality: Fair Exam Date: 12/23/2021 2:05 PM Patient Status: Outpatient Rotor Blade Installer: Verna Desir RCDS Exam Type: ECHOCARDIOGRAM LIMITED Study Info Indications I31.3 - Pericardial effusion (noninflammatory) Referring Physician: LENARD DAS ; [id number] BMI: 31.47 kg/m2 Summary 1. A Limited [...] Patricia Dowling MD on 12/23/2021 03:01 PM [facility] Echocardiogram limitedOrdere d By: Patricia Dowling on 12-23-2021 [employer] Work Phone: Office Visit (Urology)on Follow-up visit [...] 3:41:26 PM Penicillins Allergy; Updated By: Tianna Mixno; 10/24/2019 3:41:26 PM sulfa Allergy; Updated By: [...] Dec 17 2021 10:17AM EST (Author) Normal [employer] No Panel InformationOrdered By: Ann Hernandes on 11-20-2021 [facility]rial [facility] P-R Interval [facility] Q-T Interval [facility] Q-T Interval (corrected) [facility] QRS Duration [facility] QTC Calculation (Bezet) [facility] R [facility] T Hoagland [facility] Ventricular Rate [facility] ECG 12 Leadon 10-14-2021 Atrial Rate [facility] P Hoagland [facility] P-R Interval [facility] Q-T Interval [facility] Q-T Interval (corrected) [facility] QRS Duration [facility] QTC Calculation (Bezet) [facility] R [facility]agland [facility] T Hoagland [facility] Ventricular Rate [facility] Hemoglobin A1con 09-26-2021 Glucose [Mass/Vol] 200 mg/dL Normal [facility] Reference [facility] Comment on above: Performed By: #### H BA1C #### [facility] Routine Lab [address], [place] [address] HbA1c (Bld) [Mass fraction] 8.6 % High 4.3-5.6 [facility] Comment on above: Performed By: #### H BA1C #### [facility] Routine Lab [address] [place], [place] [address] LG Jt Injection/Arthrocentes is: L greater trochanteric bursaon 09-15-2021 Eliecer Hill CNP 09/15/2021 2:05 PM LG Jt Injection/Arthrocentesi s: L greater trochanteric bursa Performed by: Eliecer Hill CNP Authorized by: Eliecer Hill CNP CPT 37283 - Large Joint Arthrocentesis: Consent given by: [...] the procedure well with no immediate complications [facility] LG Jt Injection/Arthrocentes is: R greater trochanteric bursaon 09-15-2021 Eliecer Hill CNP 09/15/2021 2:05 PM LG Jt Injection/Arthrocentesi s: R greater trochanteric bursa Performed by: Eliecer Hill CNP Authorized by: Eliecer Hill CNP CPT 89245 - Large Joint Arthrocentesis: Consent given by: [...] the procedure well with no immediate complications [facility] No Panel Informationon 09-15 [facility] LG Jt Injection/Arthrocentes is: R kneeon 08-21-2021 Eliecer Hill CNP 08/21/2021 8:33 AM LG Jt Injection/Arthrocentesi s: R knee Performed by: Eliecer Hill CNP Authorized by: Eliecer Hill CNP CPT 57826 - Large Joint Arthrocentesis: Consent given by: [...] the procedure well with no immediate complications [facility] Creatinine [Mass/Vol]on 06-07 GFR/1.73 sq M.predicted CKD-EPI (S/P/Bld) [Vol rate/Area] 49 Low >=60 mL/min/1.73 m2 [facility] Interpretation and review of laboratory results Abnormal [facility] The eGFR should be u sed for monitoring renal function only and not for medication dosing. [facility] Creatinine, serumon 07-02-20 Creatinine [Mass/Vol] 1.14 mg/dL 0.60 - 1.20 [facility] HbA1c (Bld) [Mass fraction]O rdered By: Bonnie Bains on 07-02-2021 Average glucose Estimated from glycated hemoglobin (Bld) [Mass/Vol] 177 mg/dL High 68 - 114 mg/dL [facility] Interpretation and review of laboratory results Abnormal [facility] Normal: 4.0% - 5.6% Increased risk for diabetes: 5.7% - 6.4% Diabetes: >= 6.5% Pediatrics: No established reference range Estimated average glucose: 68-114 mg/dL [facility] Hemoglobin [id number] By: Bette Bains on 07-02-2021 HbA1c (Bld) [Mass fraction] 7.8 % High 4.0 - 5.6 % [facility] Parathyrin.intact and Calciu m panelon 07-02-2021 Calcium [Mass/Vol] 9.1 mg/dL 8.4 - 10. 2 mg/dL [facility] Interpretation and review of laboratory results Normal [facility] Parathyrin.intact [Mass/Vol] 26.0 pg/mL 18.4 - 80.1 pg/mL [facility] Protein / Creatinine Ratio, Urineon 07-02-2021 Protein/Creatinine (U) [Ratio] 0.3 High [facility] Protein/Creatinine (U) [Rati o]on 07-02-2021 Creatinine (U) [Mass/Vol] 124.0 mg/dL [facility] Interpretation and review of laboratory results Abnormal [facility] Protein (U) [Mass/Vol] 40.2 mg/dL [facility] [place] [facility] URINALYSISOrdered By: Yeimy Valadez on 07-02-2021 Bacteria Auto Ql (U) Rare Abnormal None Se en /hpf [facility] Clarity Refractometry automated (U) Clear Clear [facility] Color (U) Yellow Colorless, Yellow [facility] Glucose Auto test strip (U) [Mass/Vol] Negative Negative mg/dL [facility] Ketones (U) [Mass/Vol] Negative Negat paco mg/dL [facility] Leukocyte esterase Auto test strip Ql (U) Large Abnormal Negative [facility] pH (U) 7.0 [pH] [facility] Specific gravity (U) [Rel density] 1.016 [facility] UrinalysisOrdered By: Yeimy Valadez on 07-02-2021 Bilirubin Ql (U) Negative Negative [facility] th Epithelial cells.squamous Auto (Urine sed) [#/Area] 11 High [facility] Hemoglobin Auto test strip Ql (U) Negative Negative [facility] Hyaline casts Auto (Urine sed) [#/Area] 0-2 0 - 2 /lpf [facility] Interpretation and review of laboratory results Abnormal [facility] Mucus Auto (Urine sed) [#/Area] Rare None Seen, Rare /lpf [facility] Nitrite Auto test strip Ql (U) Negative Negative [facility] Protein (U) [Mass/Vol] Negative Negat paco mg/dL [facility] RBC Auto (Urine sed) [#/Area] 1 [facility] Transitional cells Computer assisted (U) [#/Area] 1 [facility] Urobilinogen (U) [Mass/Vol] mg/dL <2.0 mg/dL [facility] WBC Auto (Urine sed) [#/Area] 15 High [facility] Microscopic examinat ion is performed on all urinalysis samples and only positive findings are reported. The test for blood on the chemical analytic portion of urinalysis may also be positive due to hemoglobinuria and myoglobinuria and if red blood cells are present they are quantified by microscopic examination. [facility] VITAMIN D, TOTAL, 25-OHon 25-hydroxyvitamin D [Mass/Vol] 36 ng/mL 30 - 100 ng/mL [facility] Comment on above: Vitamin D status: Deficiency: [...] Interpretation and review of laboratory results Normal [facility] Assay performed derek Schroeder's chemiluminescence methodology. [facility] Hemoglobin A1con 06-13-2021 Glucose [Mass/Vol] 189 mg/dL Normal [facility] Reference Lab Comment on above: Performed By: #### H BA1C #### [facility] Routine Lab [address] [place], [place] [address] HbA1c (Bld) [Mass fraction] 8.2 % High 4.3-5.6 [facility] Reference [facility] Comment on above: Performed By: #### H BA1C #### [facility] Routine Lab [address] [place], [place] [address] [facility] DIAGNOSTIC LTon 05-14-20 21 [facility] * * *Final Report* * * DATE OF EXAM: May 14 2021 9:11AM OLMAN 0621 - [facility] DIAGNOSTIC LT / PROCEDURE REASON: R92.8-Abnormal finding on radiological examination of breast * * * * Physician Interpretation * * * * #[id number] - [facility] DIAG[facility]STIC LT UNILATERAL LEFT DIGITAL DIAGNOSTIC MAMMOGRAM [...] 04/24/2021 mammogram, 04/15/2021 mammogram, 03/17/2021 mammogram - [facility], and 02/02/2017 mammogram - [facility]. The tissue of left breast is heterogeneously [...] Informed consent was obtained. Marium evangelista/vilma:05/14/2021 10:57:46 Waiter/Waitress Tavern(s): RT Franck(R)(M), [facility] Mammogram BI-RADS: 4 Suspicious finding - [...] Health, Family Medicine, and Medical/Surgical Oncology, the [facility] has carefully reviewed the data and reached [...] their providers when to stop screening mammograms. Front Worker: Vilma Transcribe Date/Time: May 14 2021 9:04A Dictated by : MARIUM NERI MD This examination was interpreted and the report reviewed and electronically signed by: MARIUM NERI MD on May 14 2021 10:57AM EST [id number] Normal [facility] STEREO BX BREAST LTon [facility] STEREO BX BREAST LT * * *Final Repor t* * * * * * SEE BOTTOM OF REPORT FOR ADDENDED TEXT * * * DATE OF EXAM: May 14 2021 10:26AM OLMAN 0630 - [facility] STEREO BX BREAST LT / PROCEDURE REASON: R92.8-Abnormal finding on breast imaging * * * * Physician Interpretation * * * * FINAL REPORT #[id number] - [facility] STEREO BX BREAST LT STEREOTACTIC GUIDED BIOPSY [...] Correlation is made to exam dated: 05/14/2021 mammogram - [facility]. A stereotactic guided biopsy was performed [...] location, eight cores were obtained using the Package Concierge system. A top hat clip was inserted [...] the patient of the results on 05/15/21. raquel Guerra M.D., M.D./vilma:05/15/2021 16:48:03 Waiter/Waitress Tavern(s): RT Franck(R)(M), [facility] Multiple national specialty organizations have released breast cancer screening guidelines for women at average risk for developing breast cancer - guidelines that are based on both evidence and opinion, yet differ on when to start and how often to screen for breast cancer. With representation from Breast Imaging, Internal Medicine, Women's Health, Family Medicine, and Medical/Surgical Oncology, the [facility] has carefully reviewed the data and reached [...] their providers when to stop screening mammograms. Front Worker: Vilma Transcribe Date/Time: May 14 2021 10:54A Dictated by : CNIDY (more content not included)... Normal [facility] SURGICAL PATHOLOGYon 021 SURGICAL PATHOLOGY Specimen originated from [facility] Specimen #: [id number] Submitting Physician: MARIUM NERI MD FINAL DIAGNOSIS [...] in one cassette. Gross examination performed at [facility], [address] [place] [address] 05/14/2021 3:35:29 PM Date of Report: 05/15/2021 Date of Procedure: 05/14/2021 Date of Receipt: 05/14/2021 Submitted by: MARIUM NERI MD Location: [facility] Diagnostic interpretation performed at [place] [address]. CLIA Number: [id number] [facility] ORT LARGE JOINT ARTHROCEN TESISon 05-05-2021 Eliecer Hill CNP 05/05/2021 9:58 AM LG Jt Injection/Arthrocentesi s: R knee Performed by: Eliecer Hill CNP Authorized by: Eliecer Hill CNP CPT 03758 - Large Joint Arthrocentesis: Consent given by: [...] the procedure well with no immediate complications [facility] Eliecer Hill CNP 05/05/2021 9:58 AM LG Jt Injection/Arthrocentesi s: R greater trochanteric bursa Performed by: Eliecer Hill CNP Authorized by: Eliecer Hill CNP CPT 53828 - Large Joint Arthrocentesis: Consent given by: [...] the procedure well with no immediate complications [facility] Eliecer Hill CNP 05/05/2021 9:58 AM LG Jt Injection/Arthrocentesi s: L greater trochanteric bursa Performed by: Eliecer Hill CNP Authorized by: Eliecer Hill CNP CPT 32948 - Large Joint Arthrocentesis: Consent given by: [...] the procedure well with no immediate complications [facility] Protein Electrophor.on 04-01 Albumin [Mass/Vol] 3.75 g/dL Normal 3.37-4.23 [facility] Reference Lab Comment on above: Performed By: #### S EPG #### [facility] Rout[facility] Lab [address] [place] [phone] Alpha 1 Globulin 0.23 gm/dL Normal 0.18-0.31 [facility] Reference Lab Comment on above: Performed By: #### S EPG #### [facility] Routine Lab [address] [place] [phone] Alpha 2 Globulin 0.92 gm/dL Normal 0.52-0.97 [facility] Reference Lab Comment on above: Performed By: #### S EPG #### [facility] Routine Lab [address] [place] [phone] Beta Globulin 1.29 gm/dL Normal 0.84-1.36 [facility] Reference Lab Comment on above: Performed By: #### S EPG #### [facility] Routine Lab [address] [place] [phone] Gamma Globulin 1.22 gm/dL Normal 0.70-1.44 [facility] Reference Lab Comment on above: Performed By: #### S EPG #### [facility] [employer] Routine Lab [address] [place] [phone] Interpretation NMPD Normal [facility] Reference Lab Comment on above: Performed By: #### S EPG #### [facility] Routine Lab [address] [place] [phone] M Protein Location NAPP Normal [facility] Reference Lab Comment on above: Performed By: #### S EPG #### [facility] Routine Lab [address] [place] [address] M Billy Concentratn 0.00 gm/dL Normal 0.00 [facility] Reference Lab Comment on above: Performed By: #### S EPG #### [facility] Routine Lab [address] [place] [address] SPE Staff Review NAKAS Normal [facility] Reference Lab Comment on above: Performed By: #### S EPG #### [facility] Routine Lab [address] [place] [phone] Protein Electrophor.on 03-29 Protein [Mass/Vol] 7.4 g/dL Normal 6.3-8.0 [facility] Reference Lab Comment on above: Performed By: #### S EPG #### [facility] Routine Lab [address] [place] [phone] Prot Elec, Ur w/ IFEon 03-28 Albumin Normal [facility] Lab Comment on above: Result Comment: Unab le to assay. Quantity not sufficient. SPOKE WITH LEILA [id number] Account Credited Performed By: #### U EPGRX #### [facility] [address] [place] [phone] Alpha 1 Globulin Normal [facility] Reference Lab Comment on above: Result Comment: Unab le to assay. Quantity not sufficient. SPOKE WITH LEILA [id number] Account Credited Performed By: #### U EPGRX #### [facility] [address] [address] Alpha 2 Globulin Normal [facility] Reference Lab Comment on above: Result Comment: Unab le to assay. Quantity not sufficient. SPOKE WITH LEILA FRAGA [id number] Account Credited Performed By: #### U EPGRX #### [facility] [address] [address] Beta Globulin Normal [facility] Reference Lab Comment on above: Result Comment: Unab le to assay. Quantity not sufficient. SPOKE WITH LEILA [id number] Account Credited Performed By: #### U EPGRX #### [facility] [address] [phone] Comment Normal [facility] Reference Lab Comment on above: Result Comment: Unab le to assay. Quantity not sufficient. SPOKE WITH LEILA [id number] Account Credited Performed By: #### U EPGRX #### [facility] [address] [phone] Gamma Globulin Normal [facility] Lab Comment on above: Result Comment: Unab le to assay. Quantity not sufficient. SPOKE WITH LEILA [id number] Account Credited Performed By: #### U EPGRX #### [facility] [address] [phone] Interpretation Normal [facility] Lab Comment on above: Result Comment: Unab le to assay. Quantity not sufficient. SPOKE WITH LEILA [id number] Account Credited Performed By: #### U EPGRX #### [facility] [address] [phone] Staff Review Normal [facility] Reference Lab Comment on above: Result Comment: Unab le to assay. Quantity not sufficient. SPOKE WITH LEILA [id number] Account Credited Performed By: #### U EPGRX #### [facility] [address] [phone] Protein (U) [Mass/Vol] 53 mg/dL High 0-20 Cl [facility] Reference Lab Comment on above: Performed By: #### U EPGRX #### [facility] [address] [phone] ECG 12-LEADOrdered By: Mario Alberto Das on 02-13-2021 Atrial Rate [facility] P Hoagland [facility] P-R Interval [facility] Q-T Interval [facility] Q-T Interval (corrected) [facility] QRS Duration [facility] QTC Calculation (Bezet) [facility] R [facility] T Hoagland [facility] Ventricular Rate [facility] Ref erralOrdered By: Device Opg Hvpcrimma on 01-20-2021 Date Time Interrogation Session [id number] [facility] Implantable Pulse Generator Implant Date [id number] [facility] Implantable Pulse Generator [employer] [facility] Implantable Pulse Generator Model [id number] [id number] [facility] Implantable Pulse Generator Serial Number [id number] [facility] Implantable Pulse Generator Type Loop Recorder [facility] [place] ORT LARGE JOINT ARTHROCEN TESISOrdered By: Eliecer Hill on 01-08-2021 Eliecer Hill CNP 01/08/2021 12:15 PM LG Jt Injection/Arthrocentesi s: R knee Performed by: Eliecer Hill CNP Authorized by: Eliecer Hill CNP CPT 51246 - Large Joint Arthrocentesis: Consent given by: [...] the procedure well with no immediate complications [facility] Eliecer Hill CNP 01/08/2021 12:15 PM LG Jt Injection/Arthrocentesi s: R greater trochanteric bursa Performed by: Eliecer Hill CNP Authorized by: Eliecer Hill CNP CPT 39107 - Large Joint Arthrocentesis: Consent given by: [...] the procedure well with no immediate complications [facility] Eliecer Hill CNP 01/08/2021 12:15 PM LG Jt Injection/Arthrocentesi s: L greater trochanteric bursa Performed by: Eliecer Hill CNP Authorized by: Eliecer Hill CNP CPT 56860 - Large Joint Arthrocentesis: Consent given by: [...] the procedure well with no immediate complications [facility] Basic metabolic 2000 panelOr dered By: Latricia Wilson on 01-06-2021 Anion gap [Moles/Vol] 13 mmol/L 10 - 2 0 mmol/L [facility] Calcium [Mass/Vol] 8.8 mg/dL 8.4 - 10. 2 mg/dL [facility] Chloride [Moles/Vol] 109 mmol/L High 98 - 10 8 mmol/L [facility] Creatinine [Mass/Vol] 1.24 mg/dL High 0.60 - 1.20 [facility] GFR/1.73 sq M.predicted CKD-EPI (S/P/Bld) [Vol rate/Area] 45 Low >=60 mL/min/1.73 m2 [facility] Glucose [Mass/Vol] 182 mg/dL High 65 - 99 mg/dL [facility] HCO3 [Moles/Vol] 22 mmol/L 21 - 32 mmol/L [facility] Interpretation and review of laboratory results Abnormal [facility] Potassium [Moles/Vol] 3.6 mmol/L 3.5 - 5.1 mmol/L [facility] Sodium [Moles/Vol] 140 mmol/L 135 - 145 mmol/L [facility] Urea nitrogen [Mass/Vol] 20 mg/dL 8 - 25 mg/dL [facility] Urea nitrogen/Creatinine [Mass ratio] 16.1 mg/mg [facility] The eGFR should be u sed for monitoring renal function only and not for medication dosing. [facility] XR Hands Bilateral Ball Catc hers 2 ViewsOrdered By: Latricia Wilson on 01-06-2021 1. No evidence for erosive arthropathy in either hand or wrist. 2. 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 PRL/mll Workstation ID: [id number] [facility] EXAMINATION: XR HAND S BILATERAL BALL CATCHERS [...] 2nd and 5th DIP joints without erosion. [facility] Interface, Rad In Fu ji Speechq - [...] the left hand. PRL/mll Workstation ID: [id number] [facility] PT Progress Noteon 1 PT Progress Note Therapy Diagnosis Health Maintenance/Risks [...] proprioception with RLE SLS improved to >/= 10 seconds, to decrease instability and improve ease [...] and notes there isn't anything I can't do but stairs are still difficult, mores so [...] proprioception with RLE SLS improved to >/= 10 seconds, to decrease instability and improve ease [...] and notes there isn't anything I can't do but stairs are still difficult, mores so descending than ascending. Pt notes she is supposed to call her MD to make an appointment. Pt notes she had an episode of low blood sugar last night, but was better this AM after eating breakfast and took her insulin per usual. Notes (more content not included)... Normal [facility] Hemoglobin A1con 12-29-2020 Glucose [Mass/Vol] 169 mg/dL Normal [facility] Reference Lab Comment on above: Performed By: #### H BA1C #### [facility] Routine Lab [address] [place], [place] [address] HbA1c (Bld) [Mass fraction] 7.5 % High 4.3-5.6 [facility] Reference Lab Comment on above: Performed By: #### H BA1C #### [facility] Routine Lab [address] [place], [place] [address] PT Progress Noteon 1 PT Progress Note [...] proprioception with RLE SLS improved to >/= 10 seconds, to decrease instability and improve ease [...] Adult Risk Screening Initial Fall Risk Screening: KRSITEN has fallen in the last 6 months. [...] code time is 43 minutes. Therapeutic exercise (22702): timed minutes 43, units 3 . Bike [...] 2 x 10 Tandem stance 3 x 20 Supine hip flexor EOB stretch RLE 5x20? holds SAQ 2 x 10 B LE?s 1.5# ankle wt (P wt) QS w/ SLR 2 x 10 B LE?s supine with SLR 0# ankle wt (Held weight per pt.) Seated HS curls Red band 2x10 Seated LAQ 0# x10 B D/C: Seated QS 10x5 holds D/C to HEP NuStep 5?(X) Seated GS/HS stretch w/ strap 5x10 holds Bridge 2 x 10 3-5? hold S/L Clamshell 2 x 10 orange band . Manual Therapy (971 (more content not included)... Normal [facility] PT Progress Noteon 1 PT Progress Note [...] proprioception with RLE SLS improved to >/= 10 seconds, to decrease instability and improve ease [...] had more strength when going up the [employer] steps. Patient identified by name and date of . Home program performing as directed: Yes. Precautions: Fall Risk: moderate L4-L5 involvement causing back pain; Limited visual field due to eye surgeries; Hx CVA; DM;. Treatment Time in clinic started at 09:16 Time in clinic ended at 9:58 Total time in clinic is 43 minutes. Total timed code time is 42 minutes. Therapeutic exercise (48578): timed minutes 42, units 3 . Bike [...] 2 x 10 Tandem stance 3 x 20 Supine hip flexor EOB stretch RLE 5x20? holds SAQ 2 x 10 B LE?s 1.5# ankle wt (P wt) (X not time) QS w/ SLR 2 x 10 B LE?s supine with SLR 0# ankle wt (Held weight per pt.) Seated HS curls orange band 2x10 (x not time Seated LAQ 0# x10 B D/C: Seated QS 10x5 holds D/C to HEP NuStep 5?(X) Seated GS/HS stretch w/ strap 5x10 holds Bridge 2 x 10 3-5? hold S/L Clamshell 2 x 10 orange band . Manual Therapy (14898):. Not (more content not included)... Normal [facility] CREATININEon 09-25-2020 Creatinine [Mass/Vol] 1.28 mg/dL High 0.50-0.99 [facility] Comment on above: Result Comment: For patients >49 years of age, the reference limit for Creatinine is approximately 13% higher for people identified as -Honduran. Performed By: #### 3 75, 294 #### [facility]-[address], [address] [place] [address] Crossing Supervisor: Say Montalvo MD Creatinine [Mass/Vol] 43 mL/min/1.73m2 Low > OR = 6 0 [facility] Comment on above: Performed By: #### 3 75, 294 #### [facility]-[address], [address] [place] [address] Crossing Supervisor: Say Montalvo MD Creatinine [Mass/Vol] 50 mL/min/1.73m2 Low > OR = 6 0 [facility] Comment on above: Performed By: #### 3 75, 294 #### [facility]-[address], [address] [place] [address] Crossing Supervisor: Say Montalvo MD UREA NITROGEN (BUN)on 2020 Urea nitrogen [Mass/Vol] 27 mg/dL High 7-25 [facility] Comment on above: Performed By: #### 3 75, 294 #### [facility]-[address], [address] [place] [address] Crossing Supervisor: Say Montalvo MD [place] ORT LARGE JOINT ARTHROCEN [facility] 08-10-2020 Eliecer Hill CNP 08/10/2020 3:05 PM LG Jt Injection/Arthrocentesi s: R knee Performed by: Eliecer Hill CNP Authorized by: Eliecer Hill CNP CPT 37263 - Large Joint Arthrocentesis: Consent given by: [...] the procedure well with no immediate complications [facility] Eliecer Hill CNP 08/10/2020 3:05 PM LG Jt Injection/Arthrocentesi s: R greater trochanteric bursa Performed by: Eliecer Hill CNP Authorized by: Eliecer Hill CNP CPT 37698 - Large Joint Arthrocentesis: Consent given by: [...] the procedure well with no immediate complications [facility] Eliecer Hill CNP 08/10/2020 3:05 PM LG Jt Injection/Arthrocentesi s: L greater trochanteric bursa Performed by: Eliecer Hill CNP Authorized by: Eliecer Hill CNP CPT 33180 - Large Joint Arthrocentesis: Consent given by: [...] the procedure well with no immediate complications [facility] CT CHEST WITHOUT CONTRASTon 07-22-2020 Stable pattern of bilateral pulmonary nodules largest measuring up to 5 mm, scattered in the upper and lower lobes bilaterally. No new or suspicious enlargement of any of the pulmonary nodules noted. I am not identifying any suspicious infiltrates. Relatively prominent atherosclerotic calcification of the [place] coronary arteries, should be closely correlated as [...] artery atherosclerotic calcifications should be closely correlated. [facility]/ Workstation ID: [id number] [facility] EXAMINATION: CT CHES T WITHOUT CONTRAST HISTORY: [...] I do see atherosclerotic calcification involving the [place] coronary arteries, and to a very mild [...] new or enlarging nodule, or suspicious infiltrate. [facility], Rad In Fu ji Speechq - 07/22/2020 [...] I do see atherosclerotic calcification involving the [place] coronary arteries, and to a very mild [...] infiltrates. Relatively prominent atherosclerotic calcification of the [place] coronary arteries, should be closely correlated as [...] be closely correlated. NTP/hb Workstation ID: [id number] [facility] ECG 12-LEADon 06-07-2020 Atrial Rate [facility] P Hoagland [facility] P-R Interval [facility] Q-T Interval [facility] Q-T Interval (corrected) [facility] QRS Duration [facility] QTC Calculation (Bezet) [facility] R [facility] T Hoagland [facility] Ventricular Rate [facility] CULTURE, URINE, ROUTINEon CULTURE, URINE, ROUTINE SEE NOTE Abnormal [facility] Comment on above: Result Comment: CULTURE, URINE, ROUTINE Micro Number: [id number] Test Status: Final Specimen Source: URINE, CLEAN [...] (Distinguishing susceptible versus intermediate for isolates with MARTA < or = 4 mcg/mL requires additional testing.) Note 2: For uncomplicated UTI caused by E. coli, K. pneumoniae or P. mirabilis: Cefazolin is susceptible if MARTA <32 mcg/mL and predicts susceptible to the oral agents cefaclor, cefdinir, cefpodoxime, cefprozil, cefuroxime, cephalexin and loracarbef. Performed By: #### 3 95 #### [facility]-[address], [address] [place] [address] Crossing Supervisor: Say Montalvo MD DEJUAN SCREEN, IFA, W/REFL [...] AC-0: Negative International Consensus on DEJUAN Patterns (https://doi.org/10.1515/nsev-8303-1120) For additional information, please refer to http://education.[employer].Devolia/faq/HWH865 (This link is being provided for informational/ educational purposes only.) Performed By: #### 3 75, 294 #### [facility], [address] [place] [address] Crossing Supervisor: Say Montalvo MD C-REACTIVE PROTEINon 020 CRP [Mass/Vol] 23.1 mg/L High <8.0 [facility] Comment on above: Performed By: #### 3 75, 294 #### [facility], [address] [place] [address] Crossing Supervisor: Say oMntalvo MD CBC (INCLUDES DIFF/PLT)on Basophils (Bld) [#/Vol] 0.073 10*3/uL Normal 0-200 [facility] Comment on above: Performed By: #### 3 6127, 67217, 6399, 374, 4418, 4420, 809, 68861 #### [facility] [address], [address] [place] [address] Crossing Supervisor: Say Montalvo MD Basophils/100 WBC (Bld) 0.6 % Normal [facility] Comment on above: Performed By: #### 3 6127, 07168, 6399, 374, 4418, 4420, 809, 68989 #### [facility] [address], [address] [place] [address] Crossing Supervisor: Say Montalvo MD Eosinophils (Bld) [#/Vol] 0.315 10*3/uL Normal 15-500 [facility] Comment on above: Performed By: #### 3 6127, 45419, 6399, 374, 4418, 4420, 809, 03129 #### [facility] [address], [address] [place] [address] Crossing Supervisor: Say Montalvo MD Eosinophils/100 WBC (Bld) 2.6 % Normal [facility] Comment on above: Performed By: #### 3 6127, 90254, 6399, 374, 4418, 4420, 809, 97683 #### [facility] [address], [address] [place] [address] Crossing Supervisor: Say Montalvo MD Erythrocyte distribution width (RBC) [Ratio] 13.7 % Normal 11.0-15.0 [facility] Comment on above: Performed By: #### 3 6127, 35996, 6399, 374, 4418, 4420, 809, 56023 #### [facility] [address], [address] [place] [address] Crossing Supervisor: Say Montalvo MD Hematocrit (Bld) [Volume fraction] 37.4 % Normal 35.0-45.0 [facility] Comment on above: Performed By: #### 3 6127, 91854, 6399, 374, 4418, 4420, 809, 79230 #### [facility] [address], [address] [place] [address] Crossing Supervisor: Say Montalvo MD Hemoglobin (Bld) [Mass/Vol] 12.2 g/dL Normal 11.7-15.5 [facility] Comment on above: Performed By: #### 3 6127, 82000, 6399, 374, 4418, 4420, 809, 19950 #### [facility] [address] [address] , [address] [place] [address] Crossing Supervisor: Say Montalvo MD Lymphocytes (Bld) [#/Vol] 2.42 10*3/uL Normal 850-3900 [facility] Comment on above: Performed By: #### 3 6127, 38622, 6399, 374, 4418, 4420, 809, 43161 #### [facility] [address] [address] , [address] [place] [address] Crossing Supervisor: Say Montalvo MD Lymphocytes/100 WBC (Bld) 20.0 % Normal [facility] Comment on above: Performed By: #### 3 6127, 68610, 6399, 374, 4418, 4420, 809, 80608 #### [facility] [address] [address] , [address] [place] [address] Crossing Supervisor: Say Montalvo MD MCH (RBC) [Entitic mass] 29.0 pg Normal 27.0-33.0 [facility] Comment on above: Performed By: #### 3 6127, 37529, 6399, 374, 4418, 4420, 809, 87166 #### [facility] [address] [address] , [address] [place] [address] Crossing Supervisor: Say Montalvo MD MCHC (RBC) [Mass/Vol] 32.6 g/dL Normal 32.0-36.[address] [facility] Comment on above: Performed By: #### 3 6127, 19095, 6399, 374, 4418, 4420, 809, 21596 #### [facility] [address] [address] , [address] [place] [address] Crossing Supervisor: Say Montalvo MD MCV (RBC) [Entitic vol] 88.8 fL Normal 80.0-100.0 [facility] Comment on above: Performed By: #### 3 6127, 13587, 6399, 374, 4418, 4420, 809, 06939 #### [facility] [address], [address] [place] [address] Crossing Supervisor: Say Montalvo MD Monocytes (Bld) [#/Vol] 0.871 10*3/uL Normal 200-950 [facility] Comment on above: Performed By: #### 3 6127, 81257, 6399, 374, 4418, 4420, 809, 21031 #### [facility] [address], [address] [place] [address] Crossing Supervisor: Say Montalvo MD Monocytes/100 WBC (Bld) 7.2 % Normal [facility] Comment on above: Performed By: #### 3 6127, 67819, 6399, 374, 4418, 4420, 809, 02762 #### [facility] [address], [address] [place] [address] Crossing Supervisor: Say Montalvo MD Neutrophils (Bld) [#/Vol] 8.422 10*3/uL High 6255-7325 [facility] Comment on above: Performed By: #### 3 6127, 74605, 6399, 374, 4418, 4420, 809, 03363 #### [facility] [address], [address] [place] [address] Crossing Supervisor: Say Montalvo MD Neutrophils/100 WBC (Bld) 69.6 % Normal [facility] Comment on above: Performed By: #### 3 6127, 93813, 6399, 374, 4418, 4420, 809, 82607 #### [facility] [address], [address] [place] [address] Crossing Supervisor: Say Montalvo MD Platelet mean volume (Bld) [Entitic vol] 9.8 fL Normal 7.5-12.5 [facility] Comment on above: Performed By: #### 3 6127, 56328, 6399, 374, 4418, 4420, 809, 02238 #### [facility] [address], [address] [place], [place] [id number] Crossing Supervisor: Say Montalvo MD Platelets (Bld) [#/Vol] 361 10*3/uL Normal 140-400 [facility] Comment on above: Performed By: #### 3 6127, 06281, 6399, 374, 4418, 4420, 809, 20052 #### [facility] [address], [address] [place], [place] [address] Crossing Supervisor: Say Montalvo MD RBC (Bld) [#/Vol] 4.21 10*6/uL Normal 3.80-5.10 [facility] Comment on above: Performed By: #### 3 6127, 71602, 6399, 374, 4418, 4420, 809, 74844 #### [facility] [address], [address] [place] [address] Crossing Supervisor: Say Montalvo MD WBC (Bld) [#/Vol] 12.1 10*3/uL High 3.8-10.8 [facility] Comment on above: Performed By: #### 3 6127, 53437, 6399, 374, 4418, 4420, 809, 17027 #### [facility] [address], [address] [place] [address] Crossing Supervisor: Say Montalvo MD [facility] 04-05-2020 Albumin [Mass/Vol] 3.6 g/dL Normal 3.6-5.1 [facility] Comment on above: Performed By: #### 3 6127, 45071, 6399, 374, 4418, 4420, 809, 33010 #### [facility] [address], [address] [place] [address] Crossing Supervisor: Say Montalvo MD Albumin/Globulin [Mass ratio] 1.2 (calc) Normal 1.0-2.5 [facility] Comment on above: Performed By: #### 3 6127, 39824, 6399, 374, 4418, 4420, 809, 11903 #### [facility], [address] [place] [address] Crossing Supervisor: Say Montalvo MD ALP [Catalytic activity/Vol] 105 U/L Normal 37-153 [facility] Comment on above: Performed By: #### 3 6127, 28417, 6399, 374, 4418, 4420, 809, 82436 #### [facility], [address] [place] [address] Crossing Supervisor: Say Montalvo MD ALT [Catalytic activity/Vol] 10 U/L Normal 6-29 [facility] Comment on above: Performed By: #### 3 6127, 55512, 6399, 374, 4418, 4420, 809, 31904 #### [facility], [address] [place] [address] Crossing Supervisor: Say Montalvo MD AST [Catalytic activity/Vol] 12 U/L Normal 10-35 [facility] Comment on above: Performed By: #### 3 6127, 55837, 6399, 374, 4418, 4420, 809, 56035 #### [facility], [address] [place] [address] Crossing Supervisor: Say Montalvo MD Bilirubin [Mass/Vol] 0.4 mg/dL Normal 0.2-1.2 [facility] Comment on above: Performed By: #### 3 6127, 27405, 6399, 374, 4418, 4420, 809, 64675 #### [facility], [address] [place] [address] Crossing Supervisor: Say Montalvo MD Calcium [Mass/Vol] 8.9 mg/dL Normal 8.6-10.4 [facility] Comment on above: Performed By: #### 3 6127, 67484, 6399, 374, 4418, 4420, 809, 12727 #### [facility] [address] , [address] [place] [address] Crossing Supervisor: Say Montalvo MD Chloride [Moles/Vol] 101 mmol/L Normal 98-110 [facility] Comment on above: Performed By: #### 3 6127, 65303, 6399, 374, 4418, 4420, 809, 81035 #### [facility], [address] [place] [address] Crossing Supervisor: Say Montalvo MD CO2 [Moles/Vol] 23 mmol/L Normal 20-32 [facility] Comment on above: Performed By: #### 3 6127, 87377, 6399, 374, 4418, 4420, 809, 96174 #### [facility], [address] [place] [address] Crossing Supervisor: Say Montalvo MD Creatinine [Mass/Vol] 1.14 mg/dL High 0.50-0.[address] [facility] Comment on above: Result Comment: For patients >49 years of age, the reference limit for Creatinine is approximately 13% higher for people identified as -Honduran. Performed By: #### 3 6127, 48483, 6399, 374, 4418, 4420, 809, 15995 #### [facility], [address] [place] [address] Crossing Supervisor: Say Montalvo MD eGFR NON-AFR. OMANI 49 mL/min/1.73m2 Low > OR = 60 [facility] Comment on above: Performed By: #### 3 6127, 19247, 6399, 374, 4418, 4420, 809, 93395 #### [facility], [address] [place] [address] Crossing Supervisor: Say Montalvo MD GFR/1.73 sq M predicted among blacks MDRD (S/P/Bld) [Vol rate/Area] 57 mL/min/{1.73_m2} Low > OR = 60 [facility] Comment on above: Performed By: #### 3 6127, 23342, 6399, 374, 4418, 4420, 809, 71697 #### [facility], [address] [place] [address] Crossing Supervisor: Say Montalvo MD Globulin (S) [Mass/Vol] 3.1 g/dL (calc) Normal 1.9-3.7 [facility] Comment on above: Performed By: #### 3 6127, 52400, 6399, 374, 4418, 4420, 809, 25028 #### [facility] [address] Crossing Supervisor: Say Montalvo MD Glucose [Mass/Vol] 401 mg/dL High 65-99 [facility] Comment on above: Result Comment: Veri fied by repeat analysis. Fasting reference interval For someone without known diabetes, a glucose value >125 mg/dL indicates that they may have diabetes and this should be confirmed with a follow-up test. Performed By: #### 3 6127, 36232, 6399, 374, 4418, 4420, 809, 20222 #### [facility] [address] Crossing Supervisor: Say Montalvo MD Potassium [Moles/Vol] 4.2 mmol/L Normal 3.5-5.[address] [facility] Comment on above: Performed By: #### 3 6127, 87868, 6399, 374, 4418, 4420, 809, 91730 #### [facility] [address] Crossing Supervisor: Say Montalvo MD Protein [Mass/Vol] 6.7 g/dL Normal 6.1-8.1 [facility] Comment on above: Performed By: #### 3 6127, 30337, 6399, 374, 4418, 4420, 809, 26827 #### [facility] [address] Crossing Supervisor: Say Montalvo MD Sodium [Moles/Vol] 134 mmol/L Low 135-146 [facility] Comment on above: Performed By: #### 3 6127, 22233, 6399, 374, 4418, 4420, 809, 98956 #### [facility] [address] Crossing Supervisor: Say Montalvo MD Urea nitrogen [Mass/Vol] 24 mg/dL Normal 7-25 [facility] Comment on above: Performed By: #### 3 6127, 89428, 6399, 374, 4418, 4420, 809, 16262 #### [facility] [address], [address] [place] [address] Crossing Supervisor: Say Montalvo MD Urea nitrogen/Creatinine [Mass ratio] 21 mg/mg Normal 6-22 [facility] Comment on above: Performed By: #### 3 6127, 60532, 6399, 374, 4418, 4420, 809, 43581 #### [facility] [facility] [address], [address] [place] [address] Crossing Supervisor: Say Montalvo MD CREATINE KINASE, TOTALon CREATINE KINASE, TOTAL 116 U/L Normal 29-143 [facility] Comment on above: Performed By: #### 3 6127, 72148, 6399, 374, 4418, 4420, 809, 74349 #### [facility] [address] , [address] [place] [address] Crossing Supervisor: Say Montalvo MD EXTRA SPECIMENon 04-05-2020 EXTRA TUBE RECEIVED Normal [facility] Comment on above: Result Comment: An e xtra specimen was received with no test requested. The specimen will be maintained in storage in case additional testing is needed. Please call the client service department for further assistance. Performed By: #### 8 837, 01198 #### [facility] [id number] , [address] [place] [address] Crossing Supervisor: Say Montalvo MD SPECIMEN TYPE RECEIVED Frozen Whole Blood; Normal [facility] Comment on above: Performed By: #### 8 837, 11068 #### [facility] [facility] [address], [address] [place] [address] Crossing Supervisor: Say Montalvo MD PTH, INTACT AND CALCIUMon Calcium [Mass/Vol] 9.0 mg/dL Normal 8.6-10.4 [facility] Comment on above: Performed By: #### 8 837, 52282 #### [facility] [address], [address] [place] [address] Crossing Supervisor: Say Montalvo MD PARATHYROID HORMONE, INTACT Normal [facility] Comment on above: Result Comment: DIONISIO EN WHOLE BLOOD NOT ACCEPTABLE FOR TESTING, REQUIRES PLASMA TEST NOT PERFORMED No suitable specimen received. Performed By: #### 8 837, 22042 #### [facility], [address] [place] [address] Crossing Supervisor: Say Montalvo MD RHEUMATOID FACTORon 04-05-20 20 RHEUMATOID FACTOR 16 IU/mL High <14 [facility] Comment on above: Performed By: #### 3 75, 294 #### [facility], [address] [place] [address] Crossing Supervisor: Say Montalvo MD SED RATE BY MODIFIED WESTERG RENon 04-05-2020 SED RATE BY MODIFIED WESTERGREN 41 mm/h High < OR = 30 [facility] Comment on above: Performed By: #### 3 6127, 65790, 6399, 374, 4418, 4420, 809, 25654 #### [facility], [address] [place] [address] Crossing Supervisor: Say Montalvo MD TSH W/REFLEX TO FT4on 2019 TSH W/REFLEX TO FT4 3.14 mIU/L Normal 0.40-4.50 [facility] Comment on above: Performed By: #### 3 75, 294 #### [facility], [address] [place] [address] Crossing Supervisor: Say Montalvo MD VITAMIN D,25-OH,TOTAL,IAon 0 04-05-2020 [...] D, (D2,D3), LC/MS/MS is recommended: order code 04238 (patients >2yrs). See Note 1 Note 1 For additional information, please refer to http://education.[employer].Devolia/faq/LMJ992 (This link is being provided for informational/ educational purposes only.) Performed By: #### 3 75 294 #### [facility], [address] [place] [id number] Crossing Supervisor: Say Montalvo MD SARS CoV 2 RNA(COVID 19), [facility] 03-27-2020 SARS CoV 2 RNA NOT DETECTED Normal NOT DETECTED [facility] Comment on above: Result Comment: A Not [...] and patient management decisions. Please review the Fact Sheets and FDA authorized labeling available for health care providers and patients using the following websites: https://www.[employer].Devolia/home/Covid-19/HCP/NAAT/fact-s heet2 https://www.[employer].Devolia/home/Covid-19/Patients/NAAT/ fact-sheet2 This test has been authorized by the FDA under an Emergency Use Authorization (EUA) for use by authorized laboratories. Due to the current public health emergency, [facility] is receiving a high volume of samples [...] about COVID-19 can be found at the [employer] website: www.[employer].Devolia/Covid19. Performed By: #### 3 9448 #### [facility] [address] [facility], [address] [place] [address] Crossing Supervisor: Say Montalvo MD [place] OR LARGE JOINT ARTHROCEN [facility] 02-19-2020 Wellington Hylton NP 02/19/2020 1:40 PM LG Jt Injection/Arthrocentesi s: R greater trochanteric bursa Performed by: Elba Reyes CNP Authorized by: Elba Reyes CNP [facility] [address] - Large Joint Arthrocentesis: Consent given by: [...] the procedure well with no immediate complications [facility] Wellington Hylton NP 02/19/2020 1:40 PM LG Jt Injection/Arthrocentesi s: L greater trochanteric bursa Performed by: Elba Reyes CNP Authorized by: Elba Reyes CNP [facility] [id number] - Large Joint Arthrocentesis: Consent given by: [...] well with no immediate complications [facility] OR LARGE JOINT ARTHROCEN [facility] 10-30-2019 Wellington Hylton NP 10/30/2019 12:42 PM LG Jt Injection/Arthrocentesi s: R greater trochanteric bursa Performed by: Elba Reyes CNP Authorized by: Elba Reyes CNP [facility] [address] - Large Joint Arthrocentesis: Consent given by: [...] the procedure well with no immediate complications [facility] Wellington Hylton SINGLE ENDING MACHINE OPERATOR 10/30/2019 12:42 PM LG Jt Injection/Arthrocentesi s: L greater trochanteric bursa Performed by: Elba Reyes CNP Authorized by: Elba Reyes CNP [facility] [address] - Large Joint Arthrocentesis: Consent given by: [...] the procedure well with no immediate complications [facility] 08-11-2019 Nuclear Report _ Patient: MEL Dodeg [facility] Rec#: [id number] (Age): 1950(69y) Height: Study Date: 08/11/2019 Weight: [...] imaging protocol was followed using Tc-99m tetrofosmin ([employer]) injected intravenously. For the stress portion of [...] at 08/11/2019 13:50:41 by: Patricia Dowling MD [facility] Interface, Rad In Heartlab Xper Echopacs - 08/11/2019 2:16 PM EST Nuclear Report _ Patient: MEL Dodge [facility] Rec#: [id number] (Age): 1950(69y) Height: Study Date: 08/11/2019 Weight: [...] imaging protocol was followed using Tc-99m tetrofosmin ([employer]) injected intravenously. For the stress portion of [...] at 08/11/2019 13:50:41 by: Patricia Dowling MD [facility] ECG 12-LEADon 08-09-2019 Atrial Rate [facility] P Hoagland [facility] P-R Interval [facility] Q-T Interval [facility] Q-T Interval (corrected) [facility] QRS Duration [facility] QTC Calculation (Bezet) [facility] R [facility] T Hoagland [facility] Ventricular Rate [facility] th TSHon 08-09-2019 Interpretation and review of laboratory results Normal [facility] TSH Qn 2.02 m[IU]/L [facility] OH ORT LARGE JOINT ARTHROCEN TESISon 07-31-2019 Wellington Hylton NP 07/31/2019 12:49 PM LG Jt Injection/Arthrocentesi s: R greater trochanteric bursa Performed by: Elba Reyes CNP Authorized by: Elba Reyes CNP CPT 63861 - Large Joint Arthrocentesis: Consent given by: [...] the procedure well with no immediate complications [facility] Wellington Hylton NP 07/31/2019 12:49 PM LG Jt Injection/Arthrocentesi s: L greater trochanteric bursa Performed by: Elba Reyes CNP Authorized by: Elba Reyes CNP CPT 24951 - Large Joint Arthrocentesis: Consent given by: [...] the procedure well with no immediate complications [facility] LARGE JOINT ARTHROCEN [facility] 04-20-2019 Wellington Hylton NP 04/20/2019 8:25 AM LG Jt Injection/Arthrocentesi s: L greater trochanteric bursa Performed by: Elba Reyes CNP Authorized by: Elba Reyes CNP CPT 94427 - Large Joint Arthrocentesis: Consent given by: [...] the procedure well with no immediate complications [facility] Wellington Hylton NP 04/20/2019 8:25 AM LG Jt Injection/Arthrocentesi s: R greater trochanteric bursa Performed by: Elba Reyes CNP Authorized by: Elba Reyes CNP CPT 93933 - Large Joint Arthrocentesis: Consent given by: [...] the procedure well with no immediate complications [facility] 01-16-2019 Wellington Hylton NP 01/16/2019 1:38 PM LG Jt Injection/Arthrocentesi s: R greater trochanteric bursa Performed by: Elba Reyes CNP Authorized by: Elba Reyes CNP CPT 43361 - Large Joint Arthrocentesis: Consent given by: [...] the procedure well with no immediate complications [facility] Wellington Hylton NP 01/16/2019 1:38 PM LG Jt Injection/Arthrocentesi s: L greater trochanteric bursa Performed by: Elba Reyes CNP Authorized by: Elba Reyes CNP CPT 00340 - Large Joint Arthrocentesis: Consent given by: [...] the procedure well with no immediate complications [facility]2018 Wellington Hylton SINGLE ENDING MACHINE OPERATOR 11/03/2018 3:54 PM LG Jt Injection/Arthrocentesi s: L greater trochanteric bursa Performed by: Elba Reyes CNP Authorized by: Elba Reyes CNP CPT 05459 - Large Joint Arthrocentesis: Consent given by: [...] the procedure well with no immediate complications [facility] Wellington Hylton SINGLE ENDING MACHINE OPERATOR 11/03/2018 3:54 PM LG Jt Injection/Arthrocentesi s: R greater trochanteric bursa Performed by: Elba Reyes CNP Authorized by: Elba Reyes CNP CPT 31517 - Large Joint Arthrocentesis: Consent given by: [...] the procedure well with no immediate complications [facility] Renalon 08-16-2018 US Renal Exam Date/Time:08/16/2018 13:11 ESTReason for Exam:HEMATURIA;Hematuri aReportSTUDY:US Renal; 08/16/2018 1:11 pmINDICATION:Hematuria. COMPARISON:06/14/2012 CESSION NUMBER(S):[id number] 266ORDERING CLINICIAN:Behzad Campbell:Multiple images of the kidneys [...] pmSigned by: Ailyn Ndiaye MD Technologist: DEBRA [facility] CT Angiogram Head Neckon CT Angiogram Head Neck Interface, Rad In [facility] - 02/09/2018 6:54 AM EDT EXAMINATION: CT [...] double vision. Reported prior MRI brain from [facility] on 12/2017 with greater than 70% stenosis [...] hemodynamically significant stenosis. RIGHT ANTERIOR CEREBRAL ARTERY (AMGDALENA): There is no hemodynamically significant stenosis. LEFT ICA: There is no hemodynamically significant stenosis. LEFT MCA: There is no hemodynamically significant stenosis. LEFT MAGDALENA: There is no hemodynamically significant stenosis. There is an anterior communicating artery. VERTEBRAL ARTERIES: There is no hemodynamically significant stenosis. BASILAR ARTERY: There is no hemodynamically significant stenosis. RIGHT POSTERIOR CEREBRAL ARTERY (BUCKET WASH OPERATOR): There is no hemodynamically significant stenosis. LEFT BUCKET WASH OPERATOR: There is no hemodynamically significant stenosis. There [...] Recommend further evaluation with dedicated CT chest. [facility] Workstation ID: [id number] [address] [facility] CT Angiogram Head Neck CT BRAIN: [...] Recommend further evaluation with dedicated CT chest. [employer] Workstation ID: [id number] Invalid Interpretation Code [employer] [facility] CT Angiogram Head Neck EXAMINATION: CT [...] double vision. Reported prior MRI brain from [facility] on 12/2017 with greater than 70% stenosis [...] hemodynamically significant stenosis. RIGHT POSTERIOR CEREBRAL ARTERY (BUCKET WASH OPERATOR): There is no hemodynamically significant stenosis. LEFT BUCKET WASH OPERATOR: There is no hemodynamically significant stenosis. There [...] apical right upper lobe. Invalid Interpretation Code [employer] [facility] CT COMPARISON IMPORTon 02-09 CT COMPARISON IMPORT This order has been auto-finalized and does not contain a result. Invalid Interpretation Code [employer] [facility] Comprehensive Metabolic Pane marissa 02-09-2018 Alanine aminotransferase (ALT) 8 U/L Invalid Interpretation Code 0 - 40 U/L [facility] Albumin 3.6 g/dL Invalid Interpretation Code 3.2 - 5.2 g/dL [facility] Alkaline phosphatase (ALP) 82 U/L Invalid Interpretation Code 40 - 150 U/L [facility] Anion gap 17 mmol/L Invalid Interpretation Code 10 - 20 mmol/L [facility] Aspartate aminotransferase (AST) 15 U/L Invalid Interpretation Code 0 - 45 U/L [facility] Bicarbonate (HCO3) 22 mmol/L Invalid Interpretation Code 21 - 32 mmol/L [facility] Bilirubin (total) 0.3 mg/dL Invalid Interpretation Code 0 - 1.3 mg/dL [facility] BUN/Creatinine Ratio 20.2 mg/mg High 10.0 - 20.0 [facility] Calcium 9.3 mg/dL Invalid Interpretation Code 8.4 - 10.2 mg/dL [facility] Chloride 105 mmol/L Invalid Interpretation Code 98 - 108 mmol/L [facility] Creatinine 0.94 mg/dL Invalid Interpretation Code 0.6 - 1.2 mg/dL [facility] eGFR (non-black) 64 mL/min/{1.73_m2} Invalid Interpretation Code >=60 [facility] eGFR (non-black) The eGFR should be u sed for monitoring renal function only and not for medication dosing. Invalid Interpretation Code [facility] Glucose 106 mg/dL High 65 - 99 mg/dL [facility] Potassium 3.5 mmol/L Invalid Interpretation Code 3.5 - 5.1 mmol/L [facility] Protein 6.8 g/dL Invalid Interpretation Code 6 - 8 g/dL [facility] Sodium 140 mmol/L Invalid Interpretation Code 135 - 145 mmol/L [facility] Urea nitrogen 19 mg/dL Invalid Interpretation Code 8 - 25 mg/dL [facility] Echocardiogram completeon Echocardiogram complete Interface, Rad I n Heartlab Xper Echopacs - 02/09/2018 10:27 AM EDT Transthoracic Echocardiogram _ Patient: MEL Dodge [facility] Rec#: [id number] (Age): 1950(67y) Height: 168(cm)/66(in) Study Date: 02/09/2018 Weight: 89(kg)/196(lbs) Room#: 5502 BSA: [id number] Type: Inpatient Loc: [facility] Sex: F _ Reading: Marcia Barrientos MD MSc Referring: HATTIE Neurosurgical Physician Assistant: Fuad [facility] History: Asthma. CVA, history. Diabetes. GERD. 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) CPT Code(s): ECHO COMPLETE W/ DOPPLER (14150) Study Quality The study quality is technically [...] Marcia Barrientos MD MSc Invalid Interpretation Code [facility] RAD Echocardiogram complete Transthoracic Echocardiogram _ Patient: MEL Dodge [facility] Rec#: [id number] (Age): 1950(67y) Height: 168(cm)/66(in) Study Date: 02/09/2018 Weight: 89(kg)/196(lbs) Room#: 5502 BSA: [id number] Type: Inpatient Loc: [facility] Sex: F _ Reading: Marcia Barrientos MD MSc Referring: HATTIE Neurosurgical Physician Assistant: Fuad Mitchell [facility] History: Asthma. CVA, history. Diabetes. GERD. 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) CPT Code(s): ECHO COMPLETE W/ DOPPLER (81719) Study Quality The study quality is technically [...] 197 mg/dL High 68 - 126 mg/dL [facility] HbA1c 8.5 % High 4.2 - 6 % [facility] Interpretation and review of laboratory results Abnormal Invalid Interpretation Code [facility] Lipid Panelon 02-09-2018 Cholesterol 227 mg/dL High 100 - 199 mg/dL [facility] Cholesterol to HDL Ratio 4.3 {ratio} Invalid Interpretation Code [facility] HDL Cholesterol 174 mg/dL Invalid Interpretation Code [facility] HDL Cholesterol 53 mg/dL Invalid Interpretation Code 40 - 59 [facility] LDL Cholesterol 135 mg/dL High 10 - 130 mg/dL [facility] Triglyceride 194 mg/dL High 30 - 150 mg/dL [facility] MR Brain With And Without Co [...] air cells are clear. Nasopharynx is normal. Water Quality Specialist spaces are normal. Prior cataract surgery. Orbital [...] pathologic cranial nerve enhancement. Invalid Interpretation Code [facility] MR Brain With And Without Contrast 1. No acute infarction. Mild chronic microvascular ischemic changes. Mild brain atrophy. 2. No pathologic enhancement. No masses. 3. Prior cataract surgery. Orbital contents are otherwise normal. No abnormal signal in the optic nerves. No cranial nerve enhancement. DMG/trw Workstation ID: [id number] Invalid Interpretation Code [facility] MR Brain With And Without Contrast Interface, Rad In [facility] - 02/09/2018 2:19 PM EDT EXAMINATION: MR [...] air cells are clear. Nasopharynx is normal. Water Quality Specialist spaces are normal. Prior cataract surgery. Orbital [...] the optic nerves. No cranial nerve enhancement. [facility]w Workstation ID: [id number] Invalid Interpretation Code [employer] [facility] POC Glucoseon 02-09-2018 Glucose 178 mg/dL High 65 - 99 mg/dL [facility] Interpretation and review of laboratory results Abnormal Invalid Interpretation Code [facility] Glucose 127 mg/dL High 65 - 99 mg/dL [facility] Interpretation and review of laboratory results Abnormal Invalid Interpretation Code [facility] XR COMPARISON IMPORTon 02-09 XR COMPARISON IMPORT This order has been auto-finalized and does not contain a result. Invalid Interpretation Code [employer] [facility] POC Glucoseon 02-08-2018 Glucose 106 mg/dL High 65 - 99 mg/dL [facility] Interpretation and review of laboratory results Abnormal Invalid Interpretation Code [facility] XR Hip Left 2-3 Views (Routi ne)on 09-20-2017 INR in blood by coagulation X-rays left hip 2 views due to pain reveals normal-appearing left hip Invalid Interpretation Code [employer] [facility] XR Hip Right 2-3 Views (Rout ine)on 09-20-2017 INR in blood by coagulation X-rays of the right hip 2 views due to pain reveals normal-appearing right hip Invalid Interpretation Code [facility] Culture, urine Bacteria identified Cx Nom (U) Positive [facility] Work Phone: Vital Signs Date Time Vital Sign Value Performing Clinician Facility 06-22-2025 07:47-0400 Body height 167.[address] Olivier Acosta MD Work Phone: [facility] 12-17-2023 11:19-0400 Body temperature 97.59 [degF] Leila Banuelos MD Work Phone: [facility] 12-17-2023 11:19-0400 Diastolic blood pressure 73 mm[Hg] Leila Banuelos MD Work Phone: [facility] 12-17-2023 11:19-0400 Heart rate 95 /min Leila Banuelos MD Work Phone: [facility] 12-17-2023 11:19-0400 Respiratory rate 16 /min Leila Banuelos MD Work Phone: [facility] 12-17-2023 11:19-0400 SaO2% (BldA) [Mass fraction] 94 % Leila Banuelos MD Work Phone: [facility] 12-17-2023 11:19-0400 Systolic blood pressure 117 mm[Hg] Leila Banuelos MD Work Phone: [facility] 12-10-2023 13:42-0400 Body height 167.6 cm Leila Banuelos MD Work Phone: [facility] 12-10-2023 13:42-0400 Body mass index (BMI) [Ratio] 28.08 kg/m2 Leila Banuelos MD Work Phone: [facility] 12-10-2023 13:42-0400 Body weight 78.93 kg Leila Banuelos MD Work Phone: [facility] 10-25-2023 14:08-0500 Diastolic blood pressure 60 mm[Hg] Eliecer Hill PRODUCTION CELL LEADER Work Phone: [facility] 10-25-2023 14:08-0500 Heart rate 119 /min Eliecergogo Hill CNP Work Phone: [facility] 10-25-2023 14:08-0500 SaO2% (BldA) [Mass fraction] 96 % Eliecergogo Hill CNP Work Phone: [facility] 10-25-2023 14:08-0500 Systolic blood pressure 91 mm[Hg] Eliecer Hill CNP Work Phone: [facility] 10-25-2023 13:38-0500 Body height 167.6 cm Eliecer Hill PRODUCTION CELL LEADER Work Phone: [facility] 10-25-2023 13:38-0500 Body mass index (BMI) [Ratio] 30.67 kg/m2 Eliecer Hill PRODUCTION CELL LEADER Work Phone: [facility] 10-25-2023 13:38-0500 Body weight 86.18 kg Eliecer Hill PRODUCTION CELL LEADER Work Phone: [facility] 08-17-2023 10:36-0500 Diastolic blood pressure 68 mm[Hg] Poornima Green PRODUCTION CELL LEADER Work Phone: [facility] 08-17-2023 10:36-0500 Heart rate 117 /min Poornima Green PRODUCTION CELL LEADER Work Phone: [facility] 08-17-2023 10:36-0500 Respiratory rate 16 /min Poornima Green PRODUCTION CELL LEADER Work Phone: [facility] 08-17-2023 10:36-0500 SaO2% (BldA) [Mass fraction] 93 % Poornima Green PRODUCTION CELL LEADER Work Phone: [facility] 08-17-2023 10:36-0500 Systolic blood pressure 120 mm[Hg] Poornima Green PRODUCTION CELL LEADER Work Phone: [facility] 08-10-2023 11:11-0500 Body height 167.6 cm Radha Hubbard DO Work Phone: [facility] 08-10-2023 11:11-0500 Body mass index (BMI) [Ratio] 29.54 kg/m2 Radha Hubbard DO Work Phone: [facility] 08-10-2023 11:11-0500 Body weight 83.01 kg Radha Hubbard DO Work Phone: [facility] 08-10-2023 11:11-0500 Diastolic blood pressure 78 mm[Hg] Radha Hubbard DO Work Phone: [facility] 08-10-2023 11:11-0500 Heart rate 97 /min Radha Hubbard DO Work Phone: [facility] 08-10-2023 11:11-0500 Systolic blood pressure 118 mm[Hg] Radha Hubbard DO Work Phone: [facility] 07-19-2023 10:56-0500 Body temperature 97.39 [degF] Poornima Green PRODUCTION CELL LEADER Work Phone: [facility] 07-19-2023 10:56-0500 Diastolic blood pressure 80 mm[Hg] Poornima Green PRODUCTION CELL LEADER Work Phone: [facility] 07-19-2023 10:56-0500 Heart rate 97 /min Poornima Green PRODUCTION CELL LEADER Work Phone: [facility] 07-19-2023 10:56-0500 Respiratory rate 16 /min Poornima Green PRODUCTION CELL LEADER Work Phone: [facility] 07-19-2023 10:56-0500 SaO2% (BldA) [Mass fraction] 97 % Poornima Green PRODUCTION CELL LEADER Work Phone: [facility] [facility] 07-19-2023 10:56-0500 Systolic blood pressure 122 mm[Hg] Poornima Green [employer] Work Phone: [facility] 06-29-2023 09:08-0400 Diastolic blood pressure 55 mm[Hg] Dr. Olivier Acosta Work Phone: [facility] 06-29-2023 09:08-0400 Heart rate 80 /min Dr. Olivier Acosta Work Phone: [facility] 06-29-2023 09:08-0400 SaO2% (BldA) [Mass fraction] 91 % Dr. Olivier Acosta Work Phone: [facility] 06-29-2023 09:08-0400 Systolic blood pressure 129 mm[Hg] Dr. Olivier Acosta Work Phone: [facility] 06-29-2023 08:23-0400 Respiratory rate 18 /min Dr. Olivier Acosta Work Phone: [facility] 05-28-2023 13:31-0400 Body temperature 98.4 [degF] Brooklyn Lynn MD Work Phone: [facility] 05-28-2023 13:31-0400 Diastolic blood pressure 76 mm[Hg] Brooklyn Lynn MD Work Phone: [facility] 05-28-2023 13:31-0400 Heart rate 102 /min Brooklyn Lynn MD Work Phone: [facility] 05-28-2023 13:31-0400 Respiratory rate 18 /min Brooklyn Lynn MD Work Phone: [facility] 05-28-2023 13:31-0400 SaO2% (BldA) [Mass fraction] 95 % Brooklyn Lynn MD Work Phone: [facility] 05-28-2023 13:31-0400 Systolic blood pressure 148 mm[Hg] Brooklyn Lynn MD Work Phone: [facility] 05-04-2023 07:48-0400 Body height 168.9 cm Eliecer Hill [employer] Work Phone: [facility] 05-04-2023 07:48-0400 Body mass index (BMI) [Ratio] 28.62 kg/m2 Eliecer Briggscock [employer]ER Work Phone: [facility] 05-04-2023 07:48-0400 Body weight 81.65 kg Eliecer Mominck [employer] Work Phone: [facility] 03-23-2023 08:31-0400 Diastolic blood pressure 85 mm[Hg] Callie Ramirez MD Work Phone: [facility] 03-23-2023 08:31-0400 Heart rate 101 /min Callie Ramirez MD Work Phone: [facility] Comment on above: NO EKG per Dr. Ramirez 03-23-2023 08:31-0400 SaO2% (BldA) [Mass fraction] 93 % Callie Ramirez MD Work Phone: [facility] 03-23-2023 08:31-0400 Systolic blood pressure 155 mm[Hg] Callie Ramirez MD Work Phone: [facility] 03-23-2023 08:22-0400 Body height 168.9 cm Callie Ramirez MD Work Phone: [facility] 03-23-2023 08:22-0400 Body mass index (BMI) [Ratio] 28.74 kg/m2 Callie Ramirez MD Work Phone: [facility] 03-23-2023 08:22-0400 Body weight 82.01 kg Callie Ramirez MD Work Phone: [facility] 10-12-2022 16:00-0500 Body temperature 97.7 [degF] Dr. Olivier Acosta Work Phone: [facility] 10-12-2022 16:00-0500 Diastolic blood pressure 90 mm[Hg] Dr. Olivier Acosta Work Phone: [facility] 10-12-2022 16:00-0500 Heart rate 90 /min Dr. Olivier Acosta Work Phone: [facility] 10-12-2022 16:00-0500 Respiratory rate 18 /min Dr. Olivier Acosta Work Phone: [facility] 10-12-2022 16:00-0500 SaO2% (BldA) [Mass fraction] 98 % Dr. Olivier Acosta Work Phone: [facility] 10-12-2022 16:00-0500 Systolic blood pressure 158 mm[Hg] Dr. Olivier Acosta Work Phone: [facility] 10-09-2022 12:01-0500 Body height 167.[address] Olivier Acosta Work Phone: [facility] 10-09-2022 12:01-0500 Body weight 80.[address] Olivier Acosta Work Phone: [facility] 10-08-2022 16:17-0500 Body mass index (BMI) [Ratio] 28.7 kg/m2 Dr. Olivier Acosta Work Phone: [facility] 10-08-2022 15:55-0500 Body temperature 97.4 [degF] Dr. Olivier Acosta Work Phone: [facility] 10-08-2022 15:55-0500 Diastolic blood pressure 69 mm[Hg] Dr. Olivier Acosta Work Phone: [facility] 10-08-2022 15:55-0500 Heart rate 122 /min Dr. Olivier Acosta Work Phone: [facility] 10-08-2022 15:55-0500 Respiratory rate 16 /min Dr. Olivier Acosta Work Phone: [facility] 10-08-2022 15:55-0500 SaO2% (BldA) [Mass fraction] 97 % Dr. Olivier Acosta Work Phone: [facility] 10-08-2022 15:55-0500 Systolic blood pressure 123 mm[Hg] Dr. Olivier Acosta Work Phone: [facility] 10-08-2022 13:27-0500 Body height 167.[address] Olivier Acosta Work Phone: [facility] 10-08-2022 13:27-0500 Body mass index (BMI) [Ratio] 29.1 kg/m2 Dr. Olivier Acosta Work Phone: [facility] 10-08-2022 13:27-0500 Body weight 81.[address] Olivier Acosta Work Phone: [facility] 09-30-2022 13:14-0500 Diastolic blood pressure 70 mm[Hg] Dr. Olivier Acosta Work Phone: [facility] 09-30-2022 13:14-0500 Heart rate 104 /min Dr. Olivier Acosta Work Phone: [facility] 09-30-2022 13:14-0500 Respiratory rate 16 /min Dr. Olivier Acosta Work Phone: [facility] 09-30-2022 13:14-0500 SaO2% (BldA) [Mass fraction] 96 % Dr. Olivier Acosta Work Phone: [facility] 09-30-2022 13:14-0500 Systolic blood pressure 139 mm[Hg] Dr. Olivier Acosta Work Phone: [facility] 09-25-2022 20:41-0500 Diastolic blood pressure 81 mm[Hg] Dr. Olivier Acosta Work Phone: [facility] 09-25-2022 20:41-0500 Systolic blood pressure 147 mm[Hg] Dr. Olivier Acosta Work Phone: [facility] 09-25-2022 17:12-0500 Body height 167.[address] Olivier Acosta Work Phone: [facility] 09-25-2022 17:12-0500 Body mass index (BMI) [Ratio] 30.3 kg/m2 Dr. Olivier Acosta Work Phone: [phone] [place] [address] 09-25-2022 17:12-0500 Body temperature 98.2 [degF] Dr. Olivier Acosta Work Phone: [facility] 09-25-2022 17:12-0500 Body weight 85.[address] Olivier Acosta Work Phone: [facility] 09-25-2022 17:12-0500 Heart rate 96 /min Dr. Olivier Acosta Work Phone: [facility] 09-25-2022 17:12-0500 Respiratory rate 15 /min Dr. Olivier Acosta Work Phone: [facility] 09-25-2022 17:12-0500 SaO2% (BldA) [Mass fraction] 97 % Dr. Olivier Acosta Work Phone: [facility] 09-22-2022 12:18-0500 Body temperature 98.6 [degF] Dr. Olivier Acosta Work Phone: [facility] 09-22-2022 12:18-0500 Diastolic blood pressure 67 mm[Hg] Dr. Olivier Acosta Work Phone: [facility] 09-22-2022 12:18-0500 Heart rate 83 /min Dr. Olivier Acosta Work Phone: [facility] 09-22-2022 12:18-0500 Respiratory rate 18 /min Dr. Olivier Acosta Work Phone: [facility] 09-22-2022 12:18-0500 SaO2% (BldA) [Mass fraction] 98 % Dr. Olivier Acosta Work Phone: [facility] 09-22-2022 12:18-0500 Systolic blood pressure 132 mm[Hg] Dr. Olivier Acosta Work Phone: [facility] 09-21-2022 14:59-0500 Body height 167.[address] Olivier Acosta Work Phone: [facility] 09-21-2022 14:59-0500 Body mass index (BMI) [Ratio] 30.3 kg/m2 Dr. Olivier Acosta Work Phone: [facility] 09-21-2022 14:59-0500 Body weight 85.[address] Olivier Acosta Work Phone: [facility] 09-14-2022 15:00-0500 Body temperature 98.4 [degF] Dr. Olivier Acosta Work Phone: [facility] 09-14-2022 15:00-0500 Diastolic blood pressure 78 mm[Hg] Dr. Olivier Acosta Work Phone: [facility] 09-14-2022 15:00-0500 Heart rate 98 /min Dr. Olivier Acosta Work Phone: [facility] 09-14-2022 15:00-0500 Respiratory rate 16 /min Dr. Olivier Acosta Work Phone: [facility] 09-14-2022 15:00-0500 SaO2% (BldA) [Mass fraction] 98 % Dr. Olivier Acosta Work Phone: [facility] 09-14-2022 15:00-0500 Systolic blood pressure 140 mm[Hg] Dr. Olivier Acosta Work Phone: [facility] 09-13-2022 00:15-0500 Body mass index (BMI) [Ratio] 31 kg/m2 Dr. Olivier Acosta Work Phone: [facility] 09-13-2022 00:15-0500 Body weight 87.[address] Olivier Acosta Work Phone: [phone] [place] [address] 09-01-2022 09:00-0500 SaO2% (BldA) [Mass fraction] 95 % Dr. Olivier Acosta Work Phone: [facility] 09-01-2022 08:34-0500 Heart rate 90 /min Dr. Olivier Acosta Work Phone: [facility] 09-01-2022 08:19-0500 Body temperature 97.8 [degF] Dr. Olivier Acosta Work Phone: [facility] 09-01-2022 08:19-0500 Diastolic blood pressure 64 mm[Hg] Dr. Olivier Acosta Work Phone: [facility] 09-01-2022 08:19-0500 Respiratory rate 18 /min Dr. Olivier Acosta Work Phone: [facility] 09-01-2022 08:19-0500 Systolic blood pressure 116 mm[Hg] Dr. Olivier Acosta Work Phone: [phone] [place] [address] 09-01-2022 02:47-0500 Body weight 91.[address] Olivier Acosta Work Phone: [facility] 08-31-2022 13:08-0500 Body height 165.[address] Olivier Acosta Work Phone: [facility] Work Phone: 08-31-2022 03:27-0500 Body mass index (BMI) [Ratio] 32.4 kg/m2 Dr. Olivier Acosta Work Phone: [facility] 08-31-2022 02:20-0500 Body temperature 98.7 [degF] Dr. Olivier Acosta Work Phone: [facility] Work Phone: 08-31-2022 02:20-0500 Diastolic blood pressure 67 mm[Hg] Dr. Olivier Acosta Work Phone: [facility] Work Phone: 08-31-2022 02:20-0500 Heart rate 103 /min Dr. Olivier Acosta Work Phone: [facility] Work Phone: 08-31-2022 02:20-0500 Respiratory rate 16 /min Dr. Olivier Acosta Work Phone: [facility] Work Phone: 08-31-2022 02:20-0500 SaO2% (BldA) [Mass fraction] 100 % Dr. Olivier Acosta Work Phone: [facility] Work Phone: 08-31-2022 02:20-0500 Systolic blood pressure 99 mm[Hg] Dr. Olivier Acosta Work Phone: [facility] Work Phone: 08-30-2022 23:59-0500 Body height 165.[address] Olivier Acosta Work Phone: [facility] Work Phone: 08-30-2022 23:59-0500 Body mass index (BMI) [Ratio] 32.7 kg/m2 Dr. Olivier Acosta Work Phone: [facility] Work Phone: 08-30-2022 23:59-0500 Body weight 89.[address] Olivier Acosta Work Phone: [facility] Work Phone: 08-20-2022 09:32-0500 Body height 165.1 cm Cecilia Campos MD Work Phone: [facility] 08-20-2022 09:32-0500 Body mass index (BMI) [Ratio] 32.25 kg/m2 Cecilia Campos MD Work Phone: [facility] 08-20-2022 09:32-0500 Body weight 87.91 kg Cecilia Campos MD Work Phone: [facility] 08-20-2022 09:32-0500 Diastolic blood pressure 70 mm[Hg] Cecilia Campos MD Work Phone: [facility] 08-20-2022 09:32-0500 Heart rate 91 /min Cecilia Campos MD Work Phone: [facility] 08-20-2022 09:32-0500 SaO2% (BldA) [Mass fraction] 98 % Cecilia Campos MD Work Phone: [facility] 08-20-2022 09:32-0500 Systolic blood pressure 126 mm[Hg] Cecilia Campos MD Work Phone: [facility] 08-13-2022 15:29-0500 Body height 165.1 cm Radha Hubbard DO Work Phone: [facility] 08-13-2022 15:29-0500 Body mass index (BMI) [Ratio] 32 kg/m2 Radha Hubbard DO Work Phone: [facility] 08-13-2022 15:29-0500 Body weight 87.23 kg Radha Hubbard DO Work Phone: [facility] 08-06-2022 08:15-0500 Body height 165.[address] Olivier Acosta Work Phone: [facility] Work Phone: 08-06-2022 08:15-0500 Body mass index (BMI) [Ratio] 32.3 kg/m2 Dr. Olivier Acosta Work Phone: [facility] 08-06-2022 08:15-0500 Body temperature 96.5 [degF] Dr. Olivier Acosta Work Phone: [facility] 08-06-2022 08:15-0500 Body weight 88.[address] Olivier Acosta Work Phone: [facility] 08-06-2022 08:15-0500 Diastolic blood pressure 79 mm[Hg] Dr. Olivier Acosta Work Phone: [facility] 08-06-2022 08:15-0500 Heart rate 117 /min Dr. Olivier Acosta Work Phone: [facility] 08-06-2022 08:15-0500 Respiratory rate 18 /min Dr. Olivier Acosta Work Phone: [facility] 08-06-2022 08:15-0500 SaO2% (BldA) [Mass fraction] 95 % Dr. Olivier Acosta Work Phone: [facility] 08-06-2022 08:15-0500 Systolic blood pressure 132 mm[Hg] Dr. Olivier Acosta Work Phone: [facility] 06-18-2022 20:06-0400 Diastolic blood pressure 62 mm[Hg] [facility] 06-18-2022 20:06-0400 Heart rate 100 /min [facility] 06-18-2022 20:06-0400 Respiratory rate 15 /min [facility] 06-18-2022 20:06-0400 SaO2% (BldA) [Mass fraction] 98 % [facility] 06-18-2022 20:06-0400 Systolic blood pressure 135 mm[Hg] [facility] 06-18-2022 18:07-0400 Body height 168.91 cm [facility] Work Phone: 06-18-2022 18:07-0400 Body mass index (BMI) [Ratio] 30.2 kg/m2 [facility] 06-18-2022 18:07-0400 Body temperature 97.2 [degF] [facility] 06-18-2022 18:07-0400 Body weight 86.18 kg [facility] 05-09-2022 12:39-0400 Respiratory rate 16 /min Bobby Tan MD Work Phone: [facility] 05-09-2022 08:10-0400 Body temperature 98.1 [degF] Bobby Tan MD Work Phone: [facility] 05-09-2022 08:10-0400 Diastolic blood pressure 84 mm[Hg] Bobby Tan MD Work Phone: [facility] 05-09-2022 08:10-0400 Heart rate 81 /min Bobby Tan MD Work Phone: [facility] 05-09-2022 08:10-0400 SaO2% (BldA) [Mass fraction] 95 % Bobby Tan MD Work Phone: [facility] 05-09-2022 08:10-0400 Systolic blood pressure 152 mm[Hg] Bobby Tan MD Work Phone: [facility] 05-07-2022 22:13-0400 Body mass index (BMI) [Ratio] 31.58 kg/m2 Bobby Tan MD Work Phone: [facility] 05-07-2022 22:13-0400 Body weight 90.1 kg Bobby Tan MD Work Phone: [facility] 05-07-2022 14:28-0400 Body height 168.9 cm Bobby Tan MD Work Phone: [facility] 03-30-2022 10:53-0400 Body weight 89.36 kg Ronda Scott MD Work Phone: [facility] 03-30-2022 10:53-0400 Diastolic blood pressure 68 mm[Hg] Ronda Scott MD Work Phone: [facility] 03-30-2022 10:53-0400 Systolic blood pressure 112 mm[Hg] Ronda Scott MD Work Phone: [facility] 02-12-2022 12:52-0400 Body height 167.6 cm Eliecer Momintru FRAZIER Work Phone: [facility] 02-12-2022 12:52-0400 Body mass index (BMI) [Ratio] 31.64 kg/m2 Eliecer Hill CNP Work Phone: [facility] 02-12-2022 12:52-0400 Body weight 88.91 kg Eliecer Hill CNP Work Phone: [facility] 11-20-2021 10:01-0400 Body height 167.6 cm Lenard Das MD Work Phone: [facility] 11-20-2021 10:01-0400 Body mass index (BMI) [Ratio] 32.44 kg/m2 Lenard Das MD Work Phone: [facility] 11-20-2021 10:01-0400 Body weight 91.17 kg Lenard Das MD Work Phone: [facility] 11-20-2021 10:01-0400 Diastolic blood pressure 78 mm[Hg] Lenard Das MD Work Phone: [facility] 11-20-2021 10:01-0400 Heart rate 80 /min Lenard Das MD Work Phone: [facility] 11-20-2021 10:01-0400 SaO2% (BldA) [Mass fraction] 98 % Lenard Das MD Work Phone: [facility] 11-20-2021 10:01-0400 Systolic blood pressure 125 mm[Hg] Lenard Das MD Work Phone: [facility] 10-14-2021 10:30-0500 Body height 167.6 cm Allegra Arjun PA-C Work Phone: [facility] 10-14-2021 10:30-0500 Body mass index (BMI) [Ratio] 31.8 kg/m2 Allegra Arjun PA-C Work Phone: [facility] 10-14-2021 10:30-0500 Body weight 89.36 kg Allegra Arjun PA-C Work Phone: [facility] 10-14-2021 10:30-0500 Diastolic blood pressure 83 mm[Hg] Allegra Arjun PA-C Work Phone: [facility] 10-14-2021 10:30-0500 Heart rate 90 /min Allegra Arjun PA-C Work Phone: [facility] 10-14-2021 10:30-0500 SaO2% (BldA) [Mass fraction] 96 % Allegra Arjun PA-C Work Phone: [facility] 10-14-2021 10:30-0500 Systolic blood pressure 129 mm[Hg] Allegra Arjun PA-C Work Phone: [facility] 09-04-2021 15:21-0500 Body height 167.6 cm Rosum Other Phone: [facility] 09-04-2021 15:21-0500 Body temperature 98.06 [degF] Rosum Other Phone: [facility] 09-04-2021 15:21-0500 Diastolic blood pressure 74 mm[Hg] Rosum Other Phone: [facility] 09-04-2021 15:21-0500 Heart rate 98 /min Rosum Other Phone: [facility] 09-04-2021 15:21-0500 Respiratory rate 16 /min Mimi Delavan Other Phone: [facility] 09-04-2021 15:21-0500 SaO2% (BldA) [Mass fraction] 98 % [facility] Other Phone: [facility] 09-04-2021 15:21-0500 Systolic blood pressure 108 mm[Hg] Mimi Delavan Other Phone: [facility] 08-05-2021 08:39-0500 Body mass index (BMI) [Ratio] 31.4 kg/m2 Eduardo Castro MD Work Phone: [facility] 08-05-2021 08:39-0500 Body temperature 98.2 [degF] Eduardo Castro MD Work Phone: [facility] 08-05-2021 08:39-0500 Body weight 85.59 kg Eduardo Castro MD Work Phone: [facility] 08-05-2021 08:39-0500 Diastolic blood pressure 82 mm[Hg] Eduardo Castro MD Work Phone: [facility] 08-05-2021 08:39-0500 Heart rate 107 /min Eduardo Castro MD Work Phone: [facility] 08-05-2021 08:39-0500 SaO2% (BldA) [Mass fraction] 97 % Eduardo Castro MD Work Phone: [facility] Comment on above: room air 08-05-2021 08:39-0500 Systolic blood pressure 128 mm[Hg] Eduardo Castro MD Work Phone: [facility] 02-13-2021 08:22-0400 Body height 165.1 cm Lenard Das MD Work Phone: [facility] 02-13-2021 08:22-0400 Body mass index (BMI) [Ratio] 31.28 kg/m2 Lenard Das MD Work Phone: [facility] 02-13-2021 08:22-0400 Body weight 85.28 kg Lenard Das MD Work Phone: [facility] 02-13-2021 08:22-0400 Diastolic blood pressure 65 mm[Hg] Lenard Das MD Work Phone: [facility] 02-13-2021 08:22-0400 Heart rate 82 /min Lenard Das MD Work Phone: [facility] 02-13-2021 08:22-0400 SaO2% (BldA) [Mass fraction] 96 % Lenard Das MD Work Phone: [facility] 02-13-2021 08:22-0400 Systolic blood pressure 100 mm[Hg] Lenard Das MD Work Phone: [facility] 02-11-2021 09:26-0400 Diastolic blood pressure 63 mm[Hg] Richard Braga MD Work Phone: [facility] 02-11-2021 09:26-0400 Heart rate 90 /min Richard Braga MD Work Phone: [facility] 02-11-2021 09:26-0400 Respiratory rate 16 /min Richard Braga MD Work Phone: [facility] 02-11-2021 09:26-0400 SaO2% (BldA) [Mass fraction] 96 % Richard Braga MD Work Phone: [facility] 02-11-2021 09:26-0400 Systolic blood pressure 93 mm[Hg] Richard Braga MD Work Phone: [facility] 01-06-2021 08:55-0400 Body mass index (BMI) [Ratio] 31.62 kg/m2 Latricia Wilson MD Work Phone: [facility] 01-06-2021 08:55-0400 Body weight 86.18 kg Latricia Wilson MD Work Phone: [facility] 01-06-2021 08:55-0400 Diastolic blood pressure 64 mm[Hg] Latricia Wilson MD Work Phone: [facility] 01-06-2021 08:55-0400 Heart rate 96 /min Latricia Wilson MD Work Phone: [facility] 01-06-2021 08:55-0400 Systolic blood pressure 102 mm[Hg] Latricia Wilson MD Work Phone: [facility] 12-20-2020 16:02-0400 Diastolic blood pressure 77 mm[Hg] Lenard Das MD Work Phone: [facility] 12-20-2020 16:02-0400 Heart rate 89 /min Lenard Das MD Work Phone: [facility] 12-20-2020 16:02-0400 SaO2% (BldA) [Mass fraction] 95 % Lenard Das MD Work Phone: [facility] 12-20-2020 16:02-0400 Systolic blood pressure 137 mm[Hg] Lenard Das MD Work Phone: [facility] 12-20-2020 15:17-0400 Respiratory rate 16 /min Lenard Das MD Work Phone: [facility] 11-14-2020 09:06-0500 BMI (Body Mass Index) 34.28 kg/m2 [facility] 11-14-2020 09:06-0500 Body weight 93.44 kg [facility] 11-14-2020 09:06-0500 Height 165.1 cm [facility] 10-01-2020 09:49-0500 BMI (Body Mass Index) 34.28 kg/m2 [facility] 10-01-2020 09:49-0500 Body weight 93.44 kg [facility] 10-01-2020 09:49-0500 Height 165.1 cm [facility] 08-07-2020 10:29-0500 BMI (Body Mass Index) 34.28 kg/m2 [facility] 12-02-2020 10:29-0500 Body weight 93.44 kg Eliecer Hill [facility] 08-07-2020 10:29-0500 Height 165.1 cm Eliecer Hill [facility] 06-07-2020 10:24-0400 BMI (Body Mass Index) 34.28 kg/m2 Cecilia Campos [facility] 06-07-2020 10:24-0400 Body weight 93.44 kg [facility] 06-07-2020 10:24-0400 BP Diastolic 78 mm[Hg] [facility] 06-07-2020 10:24-0400 BP Systolic 132 mm[Hg] [facility] 06-07-2020 10:24-0400 Height 165.1 cm [facility] 06-07-2020 10:24-0400 Pulse (Heart Rate) 104 /min [facility] 06-07-2020 10:24-0400 Pulse Oximetry 97 % [facility] 05-09-2020 08:44-0400 BMI (Body Mass Index) 33.45 kg/m2 [facility] 05-09-2020 08:44-0400 Body Temperature 98.2 [degF] [facility] 05-09-2020 08:44-0400 Body weight 91.17 kg [facility] 05-09-2020 08:44-0400 Respiratory Rate 16 /min [facility] 11-13-2019 09:18-0400 BMI (Body Mass Index) 34.61 kg/m2 [facility] 11-13-2019 09:18-0400 Body weight 94.35 kg [facility] 11-13-2019 09:18-0400 BP Diastolic 68 mm[Hg] [facility] 11-13-2019 09:18-0400 BP Systolic 110 mm[Hg] [facility] 11-13-2019 09:18-0400 Height 165.1 cm [facility] 11-13-2019 09:18-0400 Pulse (Heart Rate) 74 /min [facility] 11-13-2019 09:18-0400 Pulse Oximetry 100 % [facility] 11-07-2019 08:15-0500 BMI (Body Mass Index) 32.14 kg/m2 [facility] 11-07-2019 08:15-0500 Body weight 90.27 kg [facility] 11-07-2019 08:15-0500 BP Diastolic 68 mm[Hg] [facility] 11-07-2019 08:15-0500 BP Systolic 123 mm[Hg] [facility] 11-07-2019 08:15-0500 Pulse (Heart Rate) 85 /min [facility] 11-07-2019 08:15-0500 Pulse Oximetry 98 % [facility] 11-07-2019 08:15-0500 Respiratory Rate 16 /min [facility] 08-11-2019 07:59-0500 BMI (Body Mass Index) 32.15 kg/m2 [facility] 08-11-2019 07:59-0500 Body weight 90.3 kg [facility] 08-11-2019 07:59-0500 BP Diastolic 78 mm[Hg] [facility] 08-11-2019 07:59-0500 BP Systolic 128 mm[Hg] [facility] 08-11-2019 07:59-0500 Height 167.6 cm [facility] 08-11-2019 07:59-0500 Pulse (Heart Rate) 99 /min [facility] 08-09-2019 08:55-0500 BMI (Body Mass Index) 32.12 kg/m2 [facility] 08-09-2019 08:55-0500 Body weight 90.27 kg [facility] 08-09-2019 08:55-0500 BP Diastolic 86 mm[Hg] [facility] 08-09-2019 08:55-0500 BP Systolic 141 mm[Hg] [facility] 08-09-2019 08:55-0500 Height 167.6 cm [facility] 08-09-2019 08:55-0500 Pulse (Heart Rate) 111 /min [facility] 08-09-2019 08:55-0500 Pulse Oximetry 98 % [facility] 07-26-2019 09:31-0500 BMI (Body Mass Index) 32.12 kg/m2 [facility] 07-26-2019 09:31-0500 Body weight 90.27 kg [facility] 07-26-2019 09:31-0500 BP Diastolic 68 mm[Hg] [facility] 07-26-2019 09:31-0500 BP Systolic 124 mm[Hg] [facility] 07-26-2019 09:31-0500 Pulse (Heart Rate) 114 /min [facility] 07-26-2019 09:31-0500 Pulse Oximetry 98 % [facility] 07-26-2019 09:31-0500 Respiratory Rate 16 /min [facility] 07-13-2019 08:47-0500 BMI (Body Mass Index) 32.12 kg/m2 [facility] 07-13-2019 08:47-0500 Body weight 90.27 kg [facility] 07-13-2019 08:47-0500 BP Diastolic 58 mm[Hg] [facility] 07-13-2019 08:47-0500 BP Systolic 102 mm[Hg] [facility] 07-13-2019 08:47-0500 Pulse (Heart Rate) 106 /min [facility] 07-13-2019 08:47-0500 Pulse Oximetry 97 % [facility] 07-13-2019 08:47-0500 Respiratory Rate 16 /min [facility] 04-20-2019 08:05-0400 BMI (Body Mass Index) 29.38 kg/m2 [facility] 04-20-2019 08:05-0400 Body weight 82.56 kg [facility] 04-20-2019 08:05-0400 BP Diastolic 74 mm[Hg] [facility] 04-20-2019 08:05-0400 BP Systolic 128 mm[Hg] [facility] 04-20-2019 08:05-0400 Height 167.6 cm [facility] 04-20-2019 08:05-0400 Pulse (Heart Rate) 104 /min [facility] 12-01-2018 08:31-0400 BMI (Body Mass Index) 29.38 kg/m2 [facility] 12-01-2018 08:31-0400 BP Diastolic 77 mm[Hg] [facility] 12-01-2018 08:31-0400 BP Systolic 137 mm[Hg] [facility] 08:31-0400 Height 167.6 cm [facility] 12-01-2018 08:31-0400 Pulse (Heart Rate) 101 /min [facility] 12-01-2018 08:31-0400 Weight 82.56 kg [facility] 11-03-2018 15:30-0500 BMI (Body Mass Index) 29.38 kg/m2 [facility] 11-03-2018 15:30-0500 BP Diastolic 66 mm[Hg] [facility] 11-03-2018 15:30-0500 BP Systolic 120 mm[Hg] [facility] 11-03-2018 15:30-0500 Height 167.6 cm [facility] 11-03-2018 15:30-0500 Pulse (Heart Rate) 106 /min [facility] 11-03-2018 15:30-0500 Weight 82.56 kg [facility] 02-09-2018 15:29-0400 BP Diastolic 76 mm[Hg] [facility] 02-09-2018 15:29-0400 BP Systolic 114 mm[Hg] [facility] 02-09-2018 15:29-0400 Pulse (Heart Rate) 111 /min [facility] 02-09-2018 15:29-0400 Pulse Oximetry 96 % [facility] 02-09-2018 15:29-0400 Respiratory Rate 16 /min [facility] 02-09-2018 15:27-0400 Body Temperature 98.91 [degF] [facility] 02-08-2018 21:52-0400 BMI (Body Mass Index) 31.85 kg/m2 [facility] 02-08-2018 21:52-0400 Height 167.6 cm [facility] 02-08-2018 21:52-0400 Weight 89.5 kg [facility] 12-27-2017 13:13-0400 BMI (Body Mass Index) 29.41 kg/m2 [facility] 12-27-2017 13:13-0400 BP Diastolic 60 mm[Hg] Angelina Lopez [facility] 12-27-2017 13:13-0400 BP Systolic 112 mm[Hg] Angelina Lopez [facility] 12-27-2017 13:040 Pulse (Heart Rate) 101 /min Angelinagilbert Lopez [facility] 12-27-2017 13:040 Pulse Oximetry 95 % Angelinagilbert Lopez [facility] 12-27-2017 13:040 Respiratory Rate 18 /min Angelinagilbert Lopez [facility] 12-27-2017 13:13-0400 Weight 83.92 kg Angelinagilbert Lopez [facility] 09-20-2017 13:57-0500 BMI (Body Mass Index) 29.41 kg/m2 Yair Olvrea [facility] Work Phone: 09-20-2017 13:57-0500 Height 168.9 cm Yair Olvera [facility] Work Phone: 09-20-2017 13:57-0500 Weight 83.92 kg Yair Olvera [facility] Work Phone: Encounters Encounter Date Encounter Type Care Provider Facility Start: 06-12-2025 End: 06-12-2025 ambulatory Benjamín Tavarez [facility] Start: 05-[facility]ility[facility] Start: 05-23-2025 Registered Referred Benjamín Tavarez MD -[facility] Start: 05-08-2025 End: 05-08-[address] Olivier Acosta MD Work Phone: [facility] Start: 05-08-2025 End: 05-08-2025 Patient encounter procedure Shirlene Morelos NP- -[facility] Work Phone: Start: 05-04-2025 End: 05-04-[address] Olivier Acosta MD Work Phone: [facility] Start: 05-04-2025 End: 05-04-2025 Patient encounter procedure Shirlene Morelos NP-[place] [facility] Work Phone: Start: 05-01-2025 End: 05-01-[address] Olivier Acosta MD Work Phone: [facility] Start: 05-01-2025 End: 05-01-2025 Patient encounter procedure Shirlene Morelos NP-C -[facility] Work Phone: Start: 04-25-2025 End: 05-11-2025 Cardiac Device Check Radha Hubbard DO Work Phone: [facility] Start: 04-25-2025 End: 05-11-2025 Cardiac Device Check Radha Hubbard DO Work Phone: [facility] Start: 04-19-2025 ambulatory Benjamín MCNAIR Fa cility:[facility] Start: 04-19-2025 Registered Referred Benjamín Tavarez MD -[facility] Start: 04-10-2025 End: 04-10-[address] Olivier Acosta MD Work Phone: [facility] Start: 04-10-2025 End: 04-10-[address] Benjamín Tavarez MD -[facility] Work Phone: Start: 03-29-2025 End: 03-29-[address] Olivier Acosta MD Work Phone: [facility] Start: 03-29-2025 End: 03-29-2025 Patient encounter procedure Shirlene POWELL -[facility] Work Phone: Start: 03-21-2025 ambulatory Benjamín MCNAIR Fa cility:[facility] Start: 03-21-2025 Registered Referred Benjamín Tavarez MD -[facility] Start: 03-06-2025 Non-patient / Non-visit Dr. Carito cary MD -[facility] Work Phone: Start: 02-06-2025 End: 02-06-[address] Olivier Acosta MD Work Phone: [facility] Start: 02-06-2025 End: 02-06-[address] Benjamín Tavarez MD -[facility] Work Phone: Start: 01-30-2025 End: 01-30-[address] Olivier Acosta MD Work Phone: [facility] Start: 01-30-2025 End: 01-30-2025 Patient encounter procedure Shirlene POWELL -[facility] Work Phone: Start: 01-24-2025 End: 02-28-2025 Cardiac Device Check Radha Hubbard DO Work Phone: [facility] Start: 01-24-2025 End: 02-28-2025 Cardiac Device Check Radha Hubbard DO Work Phone: [facility] Start: 01-24-2025 End: 01-24-[address] Olivier Acosta MD Work Phone: [facility] Work Phone: Start: 01-24-2025 End: 01-24-2025 Departed Referred Benjamín Tavarez MD -[facility] Start: 01-24-2025 End: 01-24-2025 ambulatory Efaspenongbe Daysi OLS Facility:[facility] Start: 01-08-2025 End: 01-08-[address] Olivier Acosta MD Work Phone: [facility] Start: 01-08-2025 End: 01-08-2025 Patient encounter procedure Shirlene POWELL -[facility] Work Phone: Start: 12-05-2024 End: 12-05-2024 ambulatory Efpapobe Daysi [facility] Start: 12-05-2024 End: 12-05-[address] Benjamín Tavarez MD -[facility] Work Phone: Start: 11-20-2024 End: 11-20-2024 ambulatory Shirlene Morelos SINGLE ENDING MACHINE OPERATOR Facility:[facility] Start: 11-20-2024 End: 11-20-2024 Patient encounter procedure Shirlene Morelos SINGLE ENDING MACHINE OPERATOR-C -[facility] Work Phone: Start: 10-25-2024 End: 11-09-2024 Cardiac Device Check Radha Hubbard DO Work Phone: [facility] Start: 10-25-2024 End: 11-09-2024 Cardiac Device Check Radha Hubbard DO Work Phone: [facility] Start: 10-10-2024 End: 10-10-2024 ambulatory Benjamín Tavarez [facility] Start: 09-20-2024 ambulatory OLIVIER CAROLINA [facility] Start: 09-20-2024 Encounter for genera l adult medical examination without abnormal findings OLIVIER CAROLINA [facility] Start: 09-13-2024 ambulatory Remibennettluz elena Tavarez OLS Fa cility:[facility] Start: 09-08-2024 End: 09-08-2024 ambulatory Shirlene Morelos SINGLE ENDING MACHINE OPERATOR Facility:[facility] Start: 08-11-2024 End: 08-11-2024 ambulatory Shirlene Morelos SINGLE ENDING MACHINE OPERATOR Facility:[facility] Start: 08-08-2024 End: 08-08-2024 Orders Only Radha Hubbard DO Work Phone: [facility] Comment on above: Abnormal ECG (Primar y Dx) Start: 08-08-2024 End: 08-08-2024 ambulatory Olivier Acosta Facility:[facility] Start: 08-01-2024 End: 08-01-2024 ambulatory Shirlene Morelos SINGLE ENDING MACHINE OPERATOR Facility:[facility] Start: 07-26-2024 End: 07-26-2024 Cardiac Device Check Radha Hubbard DO Work Phone: [facility] Start: 07-26-2024 End: 07-26-2024 Cardiac Device Check Radha Hubbard DO Work Phone: [facility] Start: 04-26-2024 End: 05-23-2024 Cardiac Device Check Radha Hubbard DO Work Phone: [facility] Start: 04-26-2024 End: 05-23-2024 Cardiac Device Check Radha Hubbard DO Work Phone: [facility] Start: 01-26-2024 End: 01-27-2024 ambulatory OLIVIER ACOSTA [facility] Start: 12-24-2023 End: 04-03-2024 [facility] Start: 12-19-2023 ambulatory CHE CARLO BATISTA [facility] Ambulatory Start: 12-14-2023 End: 12-14-2023 Encounter identifier Vipul Guerrero Work Phone: [facility] Work Phone: Start: 12-10-2023 End: 12-10-2023 Encounter identifier Vipul Guerrero Work Phone: [facility] Work Phone: Start: 12-10-2023 End: 12-17-2023 Evaluation and management of inpatient [facility] Start: 12-10-2023 End: 12-17-2023 Evaluation and management of inpatient Urbano Reis MD Work Phone: [facility] Start: 12-02-2023 Transcribe Orders Olivier amaya MD Work Phone: [facility] Comment on above: NPH (normal pressure hydrocephalus) (HCC) (Primary Dx) Start: 11-23-2023 End: 11-24-2023 Evaluation and management of inpatient SHAHNAZ CAROLINA [facility] Start: 11-17-2023 End: 11-18-2023 Emergency department patient visit OLIVIER CAROLINA [facility] Start: 11-07-2023 End: 11-07-2023 Emergency department patient visit OLIVIER CAROLINA [facility] Start: 10-25-2023 End: 10-29-2023 ambulatory [facility] Start: 10-25-2023 End: 10-25-2023 Office outpatient visit 15 minutes Eliecer Hill [employer]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 Olivier Acosta Work Phone: [facility] Work Phone: Start: 10-18-2023 End: 10-18-[address] Olivier Acosta Work Phone: [facility] Work Phone: Start: 10-01-2023 Orders Only Yair swanson PA-C Work Phone: [facility] Comment on above: Closed wedge fractur e of thoracic vertebra with routine healing, unspecified thoracic vertebral level, subsequent encounter (Primary Dx); Closed wedge fracture of lumbar vertebra with delayed healing, unspecified lumbar vertebral level, subsequent encounter Start: 09-30-2023 End: 10-02-2023 Evaluation and management of inpatient [facility] Start: 08-25-2023 End: 08-26-2023 ambulatory [facility] Start: 08-17-2023 End: 08-17-2023 ambulatory [facility] Start: 08-17-2023 End: 08-17-2023 Postop follow up visit related to original px Poornima Fernandez [employer]ODUCTION CE[employer] LEADER Work Phone: [facility] Comment on above: Status post kyphopla sty (Primary Dx); Closed wedge fracture of thoracic vertebra with routine healing, unspecified thoracic vertebral level, subsequent encounter; Night muscle spasms Start: 08-10-2023 End: 08-11-2023 ambulatory RADHA HUBBARD [facility] Start: 08-10-2023 End: 08-10-2023 Office outpatient visit 25 minutes Radha Hubbard DO Work Phone: [facility] Comment on above: Syncope, unspecified syncope type (Primary Dx); Bradycardia; Pacemaker; Abnormal ECG Start: 08-10-2023 End: 08-10-2023 ambulatory NEY NGUYEN [facility] Start: 08-05-2023 End: 08-05-2023 ambulatory [facility] Start: 07-19-2023 End: 07-19-2023 ambulatory [facility] Start: 07-19-2023 End: 07-19-2023 Postop follow up visit related to original px Poornima Fernandez CNP Work Phone: [facility] Comment on above: Status post kyphopla sty (Primary Dx); Vertigo; Age-related osteoporosis with current pathological fracture with routine healing, subsequent encounter; Closed wedge fracture of lumbar vertebra with delayed healing, unspecified lumbar vertebral level, subsequent encounter Start: 07-14-2023 End: 07-15-2023 ambulatory [facility] Start: 07-05-2023 End: 07-11-2023 Evaluation and management of inpatient [facility] Start: 07-05-2023 End: 07[facility] Start: 06-29-2023 End: 06-29-[address] Olivier Acosta Work Phone: [facility] Work Phone: Start: 06-29-2023 End: 06-29-[address] Olivier Acosta Work Phone: [facility] Work Phone: Start: 06-29-2023 End: 06-29-[address] Olivier Acosta Work Phone: [facility] Work Phone: Start: 06-17-2023 Refill Greer Benitze MA [facility] Comment on above: Medication Refill Start: 05-31-2023 End: 06-01-2023 ambulatory [facility] Start: 05-28-2023 End: 05-29-2023 ambulatory [facility] Start: 05-28-2023 End: 05-28-2023 ambulatory [facility] Start: 05-28-2023 End: 05-28-2023 Office outpatient new 45 minutes Callie Ramirez MD Work Phone: [facility] Comment on above: Acute thoracic back pain, unspecified back pain laterality (Primary Dx); Back pain, unspecified back location, unspecified back pain laterality, unspecified chronicity; Pain of left calf Start: 05-04-2023 End: 05-08-2023 ambulatory [facility] Start: 05-04-2023 End: 05-04-2023 Clinical Support Eliecer Hill CNP Work Phone: [facility] Comment on above: Primary osteoarthrit is of right knee (Primary Dx) Start: 03-25-2023 Orders Only Maggie Faith RN [facility] Start: 03-23-2023 End: 03-23-2023 Refill Maggie Faith RN [facility] Start: 03-23-2023 End: 03-23-2023 Office outpatient visit 25 minutes Callie Ramirez MD Work Phone: [facility] Comment on above: Pacemaker; Orthostatic hypotension Start: 03-22-2023 End: 03-23-2023 ambulatory [facility] Start: 03-17-2023 ambulatory [facility] Ambulatory Start: 01-05-2023 End: 01-06-2023 ambulatory RADHA HUBBARD [facility] Start: 12-08-2022 ambulatory Ms. Gisele Dalton Facility:[id number] Start: 10-13-2022 Patient encounter procedure Freya Thapan Work Phone: [facility] Start: 10-13-2022 Progress Note Freya Pan Work Phone: [facility] Start: 10-12-2022 Dr. Olivier campbell Work Phone: [facility] Start: 10-11-2022 Dr. Olivier campbell Work Phone: [facility] Start: 10-10-2022 Dr. Olivier campbell Work Phone: [facility] Start: 10-09-2022 End: 10-12-2022 Evaluation and management of inpatient Dr. Olivier Acosta Work Phone: [facility] Work Phone: Start: 10-09-2022 End: 10-12-2022 Dr[facility] Start: 10-09-2022 Dr. Olivier campbell Work Phone: [facility] Start: 10-08-2022 Non-patient / Non-visit Dr. Yuni Acosta Work Phone: [facility] Start: 10-08-2022 Dr. Olivier campbell Work Phone: [facility] Start: 10-08-2022 Evaluation and management of inpatient Dr. [facility] Start: 10-08-[address] Justin Acosta Work Phone: [facility] Work Phone: Start: 09-30-2022 End: 09-30-[address] Olivier Acosta Work Phone: [facility] Start: 09-30-2022 End: 09-30-2022 Dr. Olivier Acosta Work Phone: [facility] Start: 09-30-2022 End: 09-30-[address] Olivier Acosta Work Phone: [facility] Work Phone: Start: 09-30-[address] Olivier Acosta Work Phone: [facility] Start: 09-30-2022 End: 09-30-2022 Dr. Olivier Acosta Work Phone: [facility] Start: 09-25-2022 End: 09-25-2022 Emergency department patient visit Dr. Olivier Acosta Work Phone: [facility] Start: 09-25-2022 End: 09-25-2022 Dr. Olivier Acosta Work Phone: [facility] Start: 09-22-2022 Non-patient / Non-visit Dr. Yuni Acosta Work Phone: [facility] Start: 09-22-2022 Dr. Olivier campbell Work Phone: [facility] Start: 09-21-2022 Non-patient / Non-visit Dr. Yuni Acosta Work Phone: [facility] Start: 09-21-2022 Dr. Olivier campbell Work Phone: [facility] Start: 09-21-2022 Non-patient / Non-visit Dr. Yuni Acosta Work Phone: [facility] Start: 09-21-2022 Dr. Olivier campbell Work Phone: [facility] Start: 09-21-2022 End: 09-21-2022 Non-patient / Non-visit Dr. Olivier Acosta Work Phone: [facility] Start: 09-21-2022 End: 09-21-2022 Dr. Olivier Acosta Work Phone: [facility] Start: 09-20-2022 Non-patient / Non-visit Dr. Yuni Acosta Work Phone: [facility] Start: 09-20-2022 Dr. Olivier campbell Work Phone: [facility] Start: 09-20-2022 Non-patient / Non-visit Dr. Yuni Acosta Work Phone: [facility] Start: 09-20-2022 Dr. Olivier campbell Work Phone: [facility] Start: 09-19-2022 Non-patient / Non-visit Dr. Yuni Acosta Work Phone: [facility] Start: 09-19-2022 Dr. Olivier campbell Work Phone: [facility] Start: 09-19-2022 Non-patient / Non-visit Dr. Yuni Acosta Work Phone: [facility] Start: 09-19-2022 Dr. Olivier campbell Work Phone: [facility] Start: 09-18-2022 Non-patient / Non-visit Dr. Yuni Acosta Work Phone: [facility] Start: 09-18-2022 End: 09-22-2022 Evaluation and management of inpatient Dr. Olivier Acosta Work Phone: [facility] Start: 09-18-2022 End: 09-22-2022 Dr. Olivier Acosta Work Phone: [facility] Start: 09-14-2022 Non-patient / Non-visit Dr. Yuni Acosta Work Phone: [facility] Start: 09-14-2022 Dr. Olivier campbell Work Phone: [facility] Start: 09-13-2022 Non-patient / Non-visit Dr. Yuni Acosta Work Phone: [facility] Start: 09-13-2022 Dr. Olivier campbell Work Phone: [facility] Start: 09-13-2022 Non-patient / Non-visit Dr. Yuni Acosta Work Phone: [facility] Start: 09-13-2022 Dr. Olivier campbell Work Phone: [facility] Start: 09-12-2022 Non-patient / Non-visit Dr. Yuni Acosta Work Phone: [facility] Start: 09-12-2022 End: 09-14-2022 Evaluation and management of inpatient [facility] Start: 09-12-2022 End: 09-14-2022 Dr. Olivier Acosta Work Phone: [facility] Start: 09-01-2022 Non-patient / Non-visit Dr. Yuni Acosta Work Phone: [facility] Start: 09-01-2022 Dr. Olivier campbell Work Phone: [facility] Start: 08-31-2022 Non-patient / Non-visit Dr. Yuni Acosta Work Phone: [facility] Start: 08-31-2022 End: 09-01-2022 Evaluation and management of inpatient Dr. Olivier Acosta Work Phone: [facility] Start: 08-31-2022 End: 09-01-2022 Dr. Olivier Acosta Work Phone: [facility] Start: 08-20-2022 End: 08-20-2022 Office outpatient visit 25 minutes Cecilia Campos MD Work Phone: [facility] Comment on above: Pacemaker (Primary D x); Tachycardia Start: 08-13-2022 End: 08-13-2022 Office outpatient visit 10 minutes Radha Hubbard DO Work Phone: [facility] Comment on above: AV block (Primary Dx ) Start: 08-06-2022 End: 08-06-[address] Olivier Acosta Work Phone: [facility] Endocrinology Start: 08-06-2022 End: 08-06-2022 Dr. Olivier Acosta Work Phone: [facility] Endocrinology Start: 08-03-2022 Non-patient / Non-visit Dr. Yuni Acosta Work Phone: [facility] Internal Medicine Start: 08-03-2022 Dr. Olivier campbell Work Phone: [facility] Internal Medicine Start: 07-28-2022 End: 07-28-[address] Olivier Acosta Work Phone: [facility] Work Phone: Start: 07-28-2022 End: 07-28-[address] Olivier Acosta Work Phone: [facility]Laboratory Start: 07-28-2022 End: 07-28-2022 Dr. Olivier Acosta Work Phone: [facility] Start: 07-14-2022 Documentation procedure Mammog alexsander Coordinator [facility] Start: 07-14-2022 Letter encounter Mammography Coordinator [facility] Department Start: 07-14-2022 End: 07-14-2022 Subsequent hospital visit by physician Screen Mammo [facility] M[facility] Comment on above: Abnormal finding on breast imaging [R92.8] Start: 07-02-2022 End: 07-02-2022 ambulatory [facility] Work Phone: Start: 07-02-2022 End: 07-02-2022 Patient encounter procedure [facility] Start: 07-02-2022 End: 07-02-2022 Dr. Olivier Acosta Work Phone: [facility] Start: 06-18-2022 End: 06-18-2022 Emergency department patient visit [facility] Start: 06-18-2022 End: 06-18-2022 Dr. Olivier Acosta Work Phone: [facility]Emergency Department Start: 05-25-2022 End: 05-25-2022 Clinical Support Eliecer Hill [facility] Work Phone: [facility] Comment on above: Primary osteoarthrit is of right knee (Primary Dx) Start: 05-19-2022 End: 09-13-2022 Clinical Support Angelina Jules RN [facility] Start: 05-07-2022 End: 05-09-2022 Evaluation and management of inpatient Bobby Prabhakar Tan MD Work Phone: [facility] Medical Cardiology Start: 05-07-2022 End: 05-07-2022 Office outpatient new 45 minutes Lenard Das MD Work Phone: [facility] Comment on above: Pacemaker Start: 03-30-2022 End: 03-30-2022 Patient encounter procedure Ronda Scott MD Work Phone: OB/Gynecology Comment on above: 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) Start: 02-24-2022 Documentation procedure Shakeel gonzalez RN [facility] Comment on above: Pacemaker (Primary D x) Start: 02-12-2022 End: 02-12-2022 Patient encounter procedure Eliecer Hill CNP Work Phone: [facility] Comment on above: Primary osteoarthrit is of right knee (Primary Dx) Start: 02-10-2022 End: 02-10-2022 Patient encounter procedure [facility] Start: 01-14-2022 AUDIT Mimi evangelista Work Phone: [id number] Work Phone: Start: 01-07-2022 End: 01-07-2022 Office outpatient visit 25 minutes Eliecer Hill CNP Work Phone: [facility] Comment on above: Shoulder arthritis ( Primary Dx) Start: 01-06-2022 End: 01-06-2022 Clinical Support Shakeel Aggarwal RN [facility] Comment on above: Arrived Start: 01-05-2022 Documentation procedure Marily garcia RN [facility] Start: 12-23-2021 End: 12-23-2021 Refill Shakeel Aggarwal RN [facility] Comment on above: Medication Refill Arrived LV dysfunction (Prim xiang Dx) Start: 12-19-2021 Documentation procedure Shakeel gonzalez RN [facility] Start: 11-21-2021 Patient encounter status Shakeel zamora RN [facility] Work Phone: Start: 11-20-2021 End: 11-20-2021 Office outpatient visit 40 minutes Lenard Das MD Work Phone: [facility] Comment on above: Syncope, unspecified syncope type Start: 10-14-2021 End: 10-14-2021 Office outpatient visit 25 minutes Allegra Díaz PA-C Work Phone: [facility] Comment on above: Syncope, unspecified syncope type Start: 09-15-2021 End: 09-15-2021 Patient encounter procedure Eliecer Hill CNP Work Phone: [facility] Comment on above: Primary osteoarthrit is of right hip (Primary Dx); Primary osteoarthritis of left hip; Osteoarthritis of right knee, unspecified osteoarthritis type; Other specified diabetes mellitus without complication, with long-term current use of insulin (HCC) Start: 09-14-2021 End: 09-14-2021 Emergency department patient visit [facility] Start: 09-04-2021 End: 09-04-2021 Emergency department patient visit Dyana Coleman [facility] Start: 08-26-2021 AUDIT Mimi evangelista Work Phone: [id number] Work Phone: Start: 08-21-2021 End: 08-21-2021 Patient encounter procedure Eliecer Hill CNP Work Phone: [facility] Comment on above: Primary osteoarthrit is of both knees (Primary Dx) Start: 08-05-2021 End: 08-05-2021 Office outpatient visit 25 minutes Eduardo Castro MD Work Phone: [facility] Comment on above: Influenza vaccine ne eded (Primary Dx); Asthma, unspecified asthma severity, unspecified whether complicated, unspecified whether persistent; Lung nodules Start: 07-24-2021 Orders Only Janae bennett [employer] Work Phone: [facility] Comment on above: Medication Refill Start: 07-10-2021 Documentation procedure Leanrd Das MD Work Phone: [facility] Start: 06-25-2021 End: 06-25-2021 Patient encounter status Latricia Wilson MD Work Phone: [facility] Start: 06-25-2021 End: 06-25-2021 Phys/qhp telephone evaluation 21-30 min Latricia Wilson MD Work Phone: [facility] Comment on above: Age-related osteopor osis with current pathological fracture with routine healing, subsequent encounter (Primary Dx); Healthcare maintenance; Stage 3 chronic kidney disease, unspecified whether stage 3a or 3b CKD (HCC); 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 Start: 05-05-2021 End: 05-05-2021 Patient encounter procedure Eliecer Hill [employer] Work Phone: [facility] Comment on above: Primary osteoarthrit is of right hip (Primary Dx); Primary osteoarthritis of left hip; Primary osteoarthritis of both knees Start: 04-30-2021 AUDIT Mimi evangelista Work Phone: [id number] Work Phone: Start: 02-24-2021 End: 02-24-2021 Subsequent hospital visit by physician Steffany Fowler MD Work Phone: [facility] Comment on above: Arrived Start: 02-13-2021 End: 02-13-2021 Office outpatient visit 40 minutes Cecilia Campos MD Work Phone: [facility] Comment on above: Tachycardia; Syncope, unspecified syncope type Start: 02-11-2021 End: 02-11-2021 Office outpatient new 60 minutes Cecilia Campos MD Work Phone: [facility] Comment on above: Orthostatic hypotens ion (Primary Dx); Dizzy spells; Amnestic MCI (mild cognitive impairment with memory loss); Stenosis of right internal carotid artery; Right-sided Johnson's palsy Start: 02-10-2021 End: 02-10-2021 Orders Only Shakeel Aggarwal RN [facility] Comment on above: Syncope, unspecified syncope type (Primary Dx) Start: 01-20-2021 End: 01-20-2021 Subsequent hospital visit by physician Steffany Fowler MD Work Phone: [facility] Comment on above: Arrived Start: 01-07-2021 End: 01-07-2021 Office outpatient visit 15 minutes Eliecer Hill CNP Work Phone: [facility] Comment on above: Closed fracture of r ight tibial plateau with routine healing, subsequent encounter (Primary Dx); Primary osteoarthritis of right hip; Primary osteoarthritis of left hip; Trochanteric bursitis of both hips Start: 01-06-2021 End: 01-06-2021 Subsequent hospital visit by physician Latricia Wilson MD Work Phone: [facility] Comment on above: Arrived Start: 01-06-2021 End: 01-06-2021 Office outpatient visit 25 minutes Latricia Wilson MD Work Phone: [facility] Comment on above: Arthralgia, unspecif ied joint (Primary Dx); Age-related osteoporosis with current pathological fracture with routine healing, subsequent encounter; Age-related osteoporosis without current pathological fracture; Chronic kidney disease, unspecified CKD stage; Visit for monitoring Reclast therapy Start: 12-26-2020 End: 12-26-2020 Clinical Support Mariela Petty RN [facility] Comment on above: Arrived Start: 12-20-2020 End: 12-20-2020 Subsequent hospital visit by physician Lenard Das MD Work Phone: [facility] Procedural Care Unit Start: 12-16-2020 Patient encounter procedure [facility] Work Phone: Start: 12-11-2020 End: 12-11-2020 Refill Maggie Boo [facility] Comment on above: Medication Refill Start: 12-11-2020 Patient encounter procedure [facility] Work Phone: Start: 12-09-2020 Patient encounter procedure [facility] Work Phone: Start: 12-06-2020 Patient encounter procedure [facility] Work Phone: Start: 12-02-2020 Patient encounter procedure [facility] Work Phone: Start: 11-29-2020 Patient encounter procedure [facility] Work Phone: Start: 11-27-2020 Patient encounter procedure [facility] Work Phone: Start: 11-22-2020 Patient encounter procedure [facility] Work Phone: Start: 11-20-2020 Patient encounter procedure [facility] Work Phone: Start: 11-14-2020 End: 11-14-2020 Office outpatient visit 15 minutes Eliecer Hill Work Phone: [facility] Comment on above: Closed fracture of r ight tibial plateau with routine healing, subsequent encounter (Primary Dx); Primary osteoarthritis of both knees Start: 10-22-2020 End: 10-22-2020 Phys/qhp telephone evaluation 21-30 min Eliecer Hill Work Phone: [facility] Comment on above: Arthralgia, unspecif ied joint (Primary Dx); Age-related osteoporosis with current pathological fracture with routine healing, subsequent encounter; Vitamin D deficiency, unspecified Start: 10-17-2020 End: 10-17-2020 Office outpatient visit 10 minutes Eliecer Hill Work Phone: [facility] Comment on above: Closed fracture of r ight tibial plateau, initial encounter (Primary Dx) Start: 10-14-2020 End: 10-14-2020 Orders Only Rahel Espino Work Phone: [facility] Start: 10-09-2020 End: 10-09-2020 Office outpatient visit 10 minutes Eliecer Hill Work Phone: [facility] Comment on above: Sprain of lateral co llateral ligament of right knee, initial encounter (Primary Dx); Tear of lateral meniscus of right knee, unspecified tear type, unspecified whether old or current tear, subsequent encounter Start: 10-01-2020 End: 10-01-2020 Office outpatient visit 15 minutes Eliecer Hill Work Phone: [facility] Comment on above: Sprain of lateral co llateral ligament of right knee, initial encounter (Primary Dx) Start: 09-30-2020 End: 09-30-2020 Orders Only Steve Palacios Work Phone: [facility] Comment on above: YVONNE (obstructive sle ep apnea) (Primary Dx) Start: 08-07-2020 End: 08-07-2020 Clinical Support Eliecer Hill Work Phone: [facility] Comment on above: Primary osteoarthrit is of right hip (Primary Dx); Primary osteoarthritis of left hip; Primary osteoarthritis of right knee; Trochanteric bursitis of both hips; Arthralgia, unspecified joint Start: 08-05-2020 End: 08-05-2020 Subsequent hospital visit by physician Steve Palacios Work Phone: [facility] Comment on above: YVONNE (obstructive sle ep apnea) Start: 07-22-2020 End: 07-22-2020 Subsequent hospital visit by physician Angelina Lopez Work Phone: [facility] CT Scan Comment on above: Lung nodules Start: 07-15-2020 End: 07-15-2020 Documentation procedure Steve Palacios Work Phone: [facility] Start: 06-07-2020 End: 06-07-2020 Office outpatient visit 25 minutes Cecilia Campos Work Phone: [facility] Comment on above: Tachycardia (Primary Dx); NOBLE (dyspnea on exertion); Dizziness; Echocardiogram abnormal; Sleep apnea, unspecified type; Mixed hyperlipidemia Start: 05-09-2020 End: 05-09-2020 Office outpatient visit 15 minutes Angelina Lopez Work Phone: [facility] Comment on above: Asthma, unspecified asthma severity, unspecified whether complicated, unspecified whether persistent (Primary Dx) Start: 04-26-2020 End: 04-26-2020 Documentation procedure Kadi Cook [facility] Start: 04-24-2020 End: 04-24-2020 Office outpatient visit 15 minutes Eliecer Hill Work Phone: [facility] Comment on above: Primary osteoarthrit is of right knee (Primary Dx) Start: 02-19-2020 End: 02-19-2020 Clinical Support Elba Reyes Work Phone: [facility] Comment on above: Primary osteoarthrit is of right hip (Primary Dx); Primary osteoarthritis of left hip Start: 11-13-2019 End: 11-13-2019 Office outpatient visit 15 minutes Cecilia Campos Work Phone: [facility] Comment on above: Tachycardia Start: 11-07-2019 End: 11-07-2019 Office outpatient visit 25 minutes Angelina Lopez Work Phone: [facility] Comment on above: Mild intermittent as thma without complication (Primary Dx); Lung nodules Start: 11-01-2019 Patient encounter procedure [facility] Work Phone: Start: 10-30-2019 End: 10-30-2019 Clinical Support Elba Reyes Work Phone: [facility] Comment on above: Primary osteoarthrit is of right hip (Primary Dx); Primary osteoarthritis of left hip Start: 08-11-2019 End: 08-11-2019 Subsequent hospital visit by physician Cecilia Campos Work Phone: [facility] Comment on above: Arrived NOBLE (dyspnea on exer tion); Abnormal ECG Start: 08-09-2019 Patient encounter procedure CECILIA CAMPOS [facility] Start: 08-09-2019 End: 08-09-2019 Office outpatient new 45 minutes Angelina Lopez Work Phone: [facility] Comment on above: Tachycardia (Primary Dx); NOBLE (dyspnea on exertion); Abnormal ECG; Carotid stenosis, right Start: 07-31-2019 End: 07-31-2019 Clinical Support Elba Reyes Work Phone: [facility] Comment on above: Primary osteoarthrit is of both hips (Primary Dx) Start: 07-26-2019 End: 07-26-2019 Office outpatient visit 25 minutes Angelina Lopez Work Phone: [facility] Comment on above: NOBLE (dyspnea on exer tion) (Primary Dx); Lung nodules; Tachycardia; Asthma, unspecified asthma severity, unspecified whether complicated, unspecified whether persistent Start: 07-13-2019 End: 07-13-2019 Office outpatient visit 25 minutes Angelina Lopez Work Phone: [facility] Comment on above: Persistent cough (Pr imary Dx); SOB (shortness of breath); Asthma, unspecified asthma severity, unspecified whether complicated, unspecified whether persistent Start: 04-20-2019 End: 04-20-2019 Clinical Support Elba Reyes Work Phone: [facility] Comment on above: Primary osteoarthrit is of right hip (Primary Dx); Primary osteoarthritis of left hip Start: 01-16-2019 End: 01-16-2019 Clinical Support Elba Reyes Work Phone: [facility] Comment on above: Primary osteoarthrit is of right hip (Primary Dx); Primary osteoarthritis of left hip Start: 12-01-2018 End: 12-01-2018 Office outpatient new 30 minutes Elba Reyes Work Phone: [facility] Comment on above: Hand pain, left (Odette juliana Dx); 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 Start: 11-03-2018 End: 11-03-2018 Office outpatient new 45 minutes Elba Reyes Work Phone: [facility] Comment on above: Trochanteric bursiti s of both hips (Primary Dx); Primary osteoarthritis of right hip Start: 08-16-2018 End: 08-17-2018 Patient encounter procedure Behzad Whitaker Facility:[facility] Start: 08-16-2018 Patient encounter procedure Facility:[id number] Start: 07-27-2018 End: 07-28-2018 Patient encounter procedure Behzad Whitaker Facility:[facility] Start: 02-08-2018 End: 02-09-2018 Ambulatory [facility] Work Phone: [facility] Integrated Stroke [facility] Start: 12-27-2017 End: 12-27-2017 Office/outpatient visit, est, level 3 Angelina Lopez Work Phone: [facility] Start: 11-22-2017 Ambulatory Angelina Lopez Facilit y:Avinash Start: 09-20-2017 Office/outpatient vi sit, new, level 2 Yair Olvera Work Phone: [facility] Start: 05-24-2017 Ambulatory Angelina Lopez Facilit y:Avinash Start: 05-24-2017 End: 05-24-2017 Ambulatory Angelina Lopez Work Phone: [facility] Procedures Date Procedure Procedure Detail Performing Clinician Start: 04-25-2025 CARDIAC REMOTE DEVICE CHECK Radha Hubbard DO Work Phone: Start: 04-19-2025 Urnls dip stick/tabl et reagent auto microscopy Dr. Olivier Acosta MD Work Phone: Start: 04-19-[address] Emperatriz Acosta MD Work Phone: Start: 03-21-2025 Vitamin D, 25-hydrox y measurement Dr. Olivier Acosta MD Work Phone: Comment on above: Vitamin D StatusDefi ciency: <20 ng/mL (50nmol/L)Insufficiency: 20-30 ng/mL (50-75 nmol/L)Sufficiency: 30-100 ng/mL (75-250 nmol/L)Toxicity: >100 ng/mL (>250 nmol/L) Start: 01-24-2025 CARDIAC REMOTE DEVICE CHECK Radhamonster Hubbard DO Work Phone: Start: 10-25-2024 CARDIAC REMOTE DEVICE CHECK Radha Xu Hubbard DO Work Phone: Start: 07-26-2024 CARDIAC REMOTE DEVICE CHECK Radha N. Hubbard DO Work Phone: Start: 04-26-2024 CARDIAC REMOTE DEVICE CHECK Radha LouisJacobo Hubbard DO Work Phone: Start: 02-17-2024 Urinalysis YASSER OMR AN Comment on above: Result Comment: URIN ALYSIS Performed By: #### [id number] #### [place] [id number] Start: 01-28-2024 Urinalysis YASSER OMR AN Comment on above: Result Comment: URIN ALYSIS Performed By: #### [id number] #### [place] [id number] Start: 01-13-2024 Urinalysis YASSER OMR AN Comment on above: Result Comment: URIN ALYSIS Performed By: #### [id number] #### [address] [place] [address] Start: 12-30-2023 Urinalysis SHAHNAZ ALEKSANDERR AN Comment on above: Result Comment: URIN ALYSIS Performed By: #### [id number] #### [place],[address] [place], [place] [id number] Start: 12-17-2023 Basic metabolic pane l calcium total Leila Banuelos MD Work Phone: Start: 12-17-2023 End: 12-17-2023 Glucose measurement Leila Banuelos MD Work Phone: Start: 12-17-2023 Glucose measurement Feliicty Banuelos MD Work Phone: Start: 12-16-2023 Glucose [...] Urbano hwang MD Work Phone: Start: 12-10-2023 MINT GREEN TOP Urbano hwang MD Work Phone: Start: 12-10-2023 RAINBOW DRAW Urbano sorenson MD Work Phone: Start: 11-22-2023 Urinalysis YASSER OMR AN Comment on above: Result Comment: URIN ALYSIS Performed By: #### [id number] #### [facility],[address] [place] [address] Start: 11-18-2023 Urinalysis YASSER OMR AN Comment on above: Result Comment: URIN ALYSIS Performed By: #### [id number] #### [facility],[address] [place] [address] Start: 11-07-2023 Urinalysis YASSER OMR AN Comment on above: Result Comment: URIN ALYSIS Performed By: #### [id number] #### [facility],[address] [place] [address] Start: 10-02-2023 Adult depression scr eening assessment [facility] [employer] Work Phone: Start: 07-05-2023 Follow-up visit Follow-up SONALI Biju MEGHNA GHINDA Start: 07-05-2023 Mammography Yair swanson PA-C Work Phone: Start: 07-05-2023 Microalbumin [Mass/v olume] in Urine by Test strip Poornima Green [employer] Work Phone: Start: 06-29-2023 MRI of lumbar spine Dr. Olivier Acosta Work Phone: Start: 06-29-2023 MRI of thoracic spine Lara Acosta Work Phone: Start: 05-04-2023 Arthrocentesis aspir &/inj major jt/bursa w/o us Eliecer Hill [employer] Work Phone: Start: 10-08-2022 Computed tomography of [...] of abdomen and pelvis with contrast Dr. Olivire Acosta Work Phone: Start: 09-21-2022 End: 09-21-[address] Olivier Acosta Work Phone: Start: 09-20-2022 Plain X-ray abdomen Dr. Olivier Acosta Work Phone: Start: 09-18-2022 End: 09-18-2022 Plain X-ray abdomen Dr. Olivier Acosta Work Phone: Start: 09-18-2022 Computed tomography of abdomen and pelvis with contrast Dr. Olivier Acosta Work Phone: Start: 09-13-2022 Plain X-ray abdomen Dr. Olivier Acosta Work Phone: Start: 09-12-2022 Computed tomography of [...] 05-07-2022 Assay of troponin quantitative Gabriela Villafana [employer] Work Phone: Start: 05-07-2022 DEAN TOP Triage Pro to[facility] Emergency Start: 05-07-2022 LIGHT BLUE TOP Triage P rotocol Emergency Start: 05-07-2022 LIGHT GREEN TOP Triage Protocol Emergency Start: 05-07-2022 PINK TOP Triage Pro [facility] Emergency Start: 05-07-2022 RAINBOW DRAW Triage [facility] Start: 05-07-2022 Blood count complete auto&auto difrntl wbc Gabriela Torrie Villafana [employer] Work Phone: Start: 05-07-2022 Radiologic exam ches t single view Gabriela Brownlee Villafana [employer] Work Phone: Start: 05-07-2022 Ecg routine ecg w/le ast 12 lds trcg only w/o i&r Bobby Tan MD Work Phone: Start: 04-08-2022 Ophthalmic examinati on and evaluation Radha Hubbard DO Work Phone: Start: 02-17-2022 Ophthalmic examinati on and evaluation Radha Hubbard DO Work Phone: Start: 02-12-2022 Arthrocentesis aspir &/inj major jt/bursa w/o us Eliecer Hill CNP Work Phone: Start: 02-10-2022 Investigation of tra nsfusion reaction Start: 01-08-2022 Arthrocentesis aspir &/inj major jt/bursa w/o us Eliecer Hill CNP Work Phone: Start: 11-20-2021 Ecg routine ecg [...] &/inj major jt/bursa w/o us Eliecer Hill [employer] Work Phone: Start: 07-02-2021 Microalbumin [Mass/v olume] in Urine by Test strip Latricia Wilson MD Work Phone: Start: 05-14-2021 Mammography Latricia Bermudez Work Phone: Start: 05-05-2021 Arthrocentesis aspir &/inj major jt/bursa w/o us Eliecer Hill CNP Work Phone: Start: 04-24-2021 Mammography Eliecer Briggs nabila [facility] Work Phone: Start: 04-15-2021 Mammography Ronda weiss MD Work Phone: Start: 02-13-2021 Ecg routine ecg w/le ast 12 lds w/i&r Lenard Das MD Work Phone: Start: 01-20-2021 OUTPATIENT DEVICE CL INIC REFERRAL [facility] Start: 01-08-2021 Arthrocentesis aspir &/inj major jt/bursa w/o us Eliecer Hill PRODUCTION CELL LEADER Work Phone: Start: 01-06-2021 Radex hand 2 [...] Screening for malign ant neoplasm of colon [facility] Start: 08-05-2026 Pneumococcal Vaccine : Age 50+ (3 of 3 - PCV20 or PCV21) Pneumococcal Vaccine: Age 50+ (3 of 3 - PCV20 or PCV21) [facility] Start: 08-07-2025 End: 08-07-2025 ambulatory 08/07/2025 12:30 PM EST Device Check OP [facility] [address] [place] [address] [facility] Start: 05-07-2025 COVID-19 Vaccine ( season) COVID-19 Vaccine ( season) [facility] Start: 05-07-2025 Influenza vaccination [facility] Start: 12-16-2024 eGFR Diabetes eGFR Diabetes [facility] Start: 12-16-2024 Urine screening for protein eGFR Diabetes [facility] Start: 10-02-2024 Depression screening using PHQ-9 (Patient Health Questionnaire 9) score [facility] Start: 08-15-2024 End: 08-15-2024 ambulatory 08/15/2024 11:00 AM EST Device Check OP [facility] [address] [place] [address] [facility] Start: 08-15-2024 End: 08-15-2024 Patient encounter procedure [facility] Start: 07-05-2024 Screening for malign ant neoplasm of breast Mammogram [facility] Start: 07-05-2024 Urine screening for protein Urine Microalbumin [facility] Start: 05-12-2024 Glaucoma screening Diabetic Eye Exam [facility] Start: 05-07-2024 COVID-19 Vaccine ( season) COVID-19 Vaccine ( season) [facility] Start: 05-07-2024 COVID-19 Vaccine ( season) COVID-19 Vaccine ( season) [facility] Start: 05-07-2024 Influenza vaccination Influenza Vacc ine (#1) [facility] Start: 01-26-2024 End: 01-26-2024 Patient encounter procedure 01/26/2024 7:00 AM EDT Appointment [facility] [address] [place] [address] [facility] Start: 01-05-2024 End: 01-05-2024 Patient encounter procedure 01/05/2024 9:30 AM EDT Office Visit [facility] [address] [place] [phone] Yair Aparicio PA-C [address] [facility] Janessa [facility] [address] [place] [address] [facility] Start: 12-30-2023 Hemoglobin A1c measurement A1C [facility] Start: 10-18-2023 Procedure [facility] Start: 10-18-2023 End: 10-18-2023 Patient encounter procedure 10/18/2023 8:30 AM EST Appointment [facility] [address] [place] [address] [facility] Start: 10-15-2023 End: 10-01-2024 XR Lumbar spine 2 or 3 Views XR Lumbar Spine 2-3 Views (Standard) Imaging Routine Closed wedge fracture of lumbar vertebra with delayed healing, unspecified lumbar vertebral level, subsequent encounter Expected: 10/15/2023, Expires: 10/01/2024 [facility] Comment on above: Expected: 10/15/2023 , Expires: 10/01/2024 Start: 10-15-2023 End: 10-01-2024 XR Thoracic spine 3 Views XR Thoracic Spine 3 Views (Standard) Imaging Routine Closed wedge fracture of thoracic vertebra with routine healing, unspecified thoracic vertebral level, subsequent encounter Expected: 10/15/2023, Expires: 10/01/2024 [facility] Work Phone: Comment on above: Expected: 10/15/2023 , Expires: 10/01/2024 Start: 10-05-2023 Hemoglobin A1c measurement A1C [facility] Start: 09-28-2023 End: 09-28-2023 Follow-up encounter 09/28/2023 9:00 AM EST Follow-Up [facility] [address] [facility] [place] [phone] Poornima Fernandez, PRODUCTION CELL LEADER [address] [address] [facility] Start: 08-25-2023 End: 08-25-2023 Patient encounter procedure [facility] Start: 08-17-2023 End: 08-17-2023 Follow-up encounter 08/17/2023 11:00 AM EST Follow-Up [facility] [address] [facility] [place] [address] Brooklyn Lynn MD [address] [address] [facility] Start: 08-16-2023 End: 08-16-2023 Follow-up encounter 08/16/2023 11:00 AM EST Follow-Up [facility] [address] [facility] [place] [address] Brooklyn Lynn MD [address] [address] [facility] Start: 08-12-2023 End: 08-12-2023 Patient encounter procedure [facility] Start: 08-10-2023 End: 08-10-2024 SPECT Heart perfusion NM Myocardial Perfusion Multiple SPECT Imaging Routine Bradycardia Syncope, unspecified syncope type Abnormal ECG Expected: 08/10/2023 (Approximate), Expires: 08/10/2024 [facility] Work Phone: Comment on above: Expected: 08/10/2023 (Approximate), Expires: 08/10/2024 Start: 08-10-2023 End: 08-10-2023 Patient encounter procedure [facility] Start: 08-05-2023 End: 08-05-2023 Patient encounter procedure 08/05/2023 8:15 AM EST Office Visit [facility] [address] [place] [address] Eliecer Hill, PRODUCTION CELL LEADER [address] [place] [address] [facility] Start: 07-14-2023 Mammography [facility] Start: 07-14-2023 Screening for malign ant neoplasm of breast Mammogram [facility] Start: 07-14-2023 End: 07-14-2023 Patient encounter procedure 07/14/2023 12:00 PM EST Appointment [facility] [address] [place] [phone] [facility] Start: 07-05-2023 End: 07-05-2023 Patient encounter procedure 07/05/2023 1:30 PM EDT Office Visit [facility] [address] [facility] [place] [phone] Brooklyn Lynn MD [address] [place] [address] [facility] Start: 06-25-2023 End: 06-25-2023 Patient encounter procedure [facility] Start: 05-29-2023 End: 05-29-2024 MRI of lumbar spine without contrast MR Lumbar Spine Without Contrast Imaging Routine Back pain, unspecified back location, unspecified back pain laterality, unspecified chronicity Expected: 05/29/2023, Expires: 05/29/2024 [facility] Comment on above: Expected: 05/29/2023 , Expires: 05/29/2024 Start: 05-29-2023 End: 05-29-2024 MRI of thoracic spine without contrast MR Thoracic Spine Without Contrast Imaging Routine Acute thoracic back pain, unspecified back pain laterality Expected: 05/29/2023, Expires: 05/29/2024 [facility] Comment on above: Expected: 05/29/2023 , Expires: 05/29/2024 Start: 05-28-2023 End: 07-28-2024 Ultrasound duplex venous leg left Ultrasound duplex venous leg left Vascular Ultrasound Routine Pain of left calf Expected: 05/28/2023, Expires: 07/28/2024 [facility] Work Phone: Comment on above: Expected: 05/28/2023 , Expires: 07/28/2024 Start: 05-28-2023 End: 05-28-2023 Patient encounter procedure 05/28/2023 1:00 PM EDT Office Visit [facility] [address] [place] [address] Callie Ramirez MD [address] [place], [place] [phone] Kota Estrella MD [address] [address] [facility] Start: 05-07-2023 COVID-19 Vaccine (2022- season) COVID-19 Vaccine () [facility] Start: 05-07-2023 Influenza vaccination [facility] Start: 05-07-2023 End: 05-07-2023 Patient encounter procedure 05/07/2023 Appointment Cardiology [facility] Start: 05-06-2023 History and physical examination, annual for health maintenance Wellness Visit [facility] Start: 05-06-2023 Medicare Wellness Visit Medicare Wel lness Visit [facility] Start: 04-08-2023 Glaucoma screening [facility] Start: 04-07-2023 End: 04-07-2023 Patient encounter procedure 04/07/2023 10:45 AM EDT Appointment [facility] [address] [facility] [address] [place] [address] [facility] Start: 04-06-2023 Hemoglobin A1c measurement A1C [facility] Start: 04-06-2023 Hemoglobin A1c/Hemoglobin.total in Blood HbA1C [facility] Start: 03-23-2023 End: 03-23-2023 Patient encounter procedure 03/23/2023 Office Visit Cardiology Callie Ramirez MD [address] [place], [place] [id number] [facility] Start: 02-21-2023 Colonoscopy COLONOSCOPY [facility] Start: 02-21-2023 COLORECTAL CANCER SCREENING COLORECTAL CANCER SCREENING [facility] Start: 02-21-2023 Screening for malign ant neoplasm of colon [facility] Start: 02-17-2023 Glaucoma screening Ophthalmology Exa m [facility] Start: 11-23-2022 Hemoglobin A1c/Hemoglobin.total in Blood HBA1C [facility] Start: 10-22-2022 Ophthalmic examinati on and evaluation Ophthalmology Exam [facility] Start: 10-13-2022 End: 10-13-2022 Patient encounter procedure 10/13/2022 Appointment Cardiology [facility] Start: 10-12-2022 Patient discharge [facility] Start: 10-12-2022 [facility] Start: 10-09-2022 Admission procedure [facility] Start: 10-08-2022 Following clinical pathway protocol [facility] Start: 10-08-2022 Assessment of risk o f venous thromboembolism [facility] Start: 10-08-2022 Cardiac monitoring [facility] Start: 10-08-2022 Care regimes management [facility] Start: 10-08-2022 Insertion of cathete r into peripheral vein [facility] Start: 10-08-2022 Measuring intake and output [facility] Start: 10-08-2022 Providing care accor ding to standard [facility] Start: 10-08-2022 Referral to occupati onal therapist [facility] Start: 10-08-2022 Referral to service [facility] Start: 10-08-2022 Consultation for pain [facility] Start: 10-08-2022 End: 10-08-2022 [facility] Start: 10-08-2022 Verification routine [facility] Start: 10-08-2022 Admission procedure [facility] Start: 10-08-2022 End: 10-09-2022 [facility] Start: 10-08-2022 Patient referral to dietitian [facility] Start: 09-22-2022 Patient discharge [facility] Start: 09-21-2022 [facility] Start: 09-19-2022 End: 09-20-2022 [facility] Start: 09-18-2022 Application of intermittent pneumatic compression device [facility] Start: 09-18-2022 Assessment of risk o f venous thromboembolism [facility] Start: 09-18-2022 Care regimes management [facility] Start: 09-18-2022 Incentive spirometry [facility] Start: 09-18-2022 Insertion of cathete r into peripheral vein [facility] Start: 09-18-2022 Measuring intake and output [facility] Start: 09-18-2022 Providing care accor ding to [facility] Start: 09-18-2022 Provision of activit y privileges [facility] Start: 09-18-2022 Referral to general surgeon [facility] Start: 09-18-2022 Referral to service [facility] Start: 09-18-2022 [facility] Start: 09-18-2022 Following clinical pathway protocol [facility] Start: 09-18-2022 Admission procedure [facility] Start: 09-18-2022 Inhalation therapy procedure [facility] Start: 09-14-2022 Patient discharge [facility] Start: 09-14-2022 Referral to occupati onal therapist [facility] Start: 09-14-2022 Referral to service [facility] Start: 09-13-2022 Application of intermittent pneumatic compression device [facility] Start: 09-13-2022 Assessment of risk o f venous thromboembolism [facility] Start: 09-13-2022 Insertion of cathete r into peripheral vein [facility] Start: 09-13-2022 Oxygen therapy [facility] Start: 09-13-2022 Providing care accor ding to [facility] Start: 09-13-2022 Provision of activit y privileges [facility] Start: 09-13-2022 Referral to general surgeon [facility] Start: 09-13-2022 End: 09-13-2022 [facility] Start: 09-13-2022 End: 09-13-2022 Care regimes management [facility] Start: 09-13-2022 Notification of physician [facility] Start: 09-12-2022 Following clinical pathway protocol [facility] Start: 09-12-2022 Admission procedure [facility] Start: 09-08-2022 Hemoglobin A1c measurement A1C [facility] Start: 09-08-2022 Hemoglobin A1c/Hemoglobin.total in Blood HBA1C [facility] Start: 09-06-2022 ADVANCE DIRECTIVE DISCUSSION ADVANCE DIRECTIVE DISCUSSION [facility] Start: 09-06-2022 DEPRESSION ASSESSMENT DEPRESSION ASS ESSMENT [facility] Start: 09-01-2022 Patient discharge [facility] Start: 08-31-2022 Following clinical pathway protocol [facility] Start: 08-31-2022 Assessment of risk o f venous thromboembolism [facility] Start: 08-31-2022 Care regimes management [facility] Start: 08-31-2022 Continuous positive airway pressure ventilation treatment [facility] Start: 08-31-2022 Fall prevention [facility] Start: 08-31-2022 Incentive spirometry [facility] Start: 08-31-2022 Inhalation therapy procedure [facility] Start: 08-31-2022 Insertion of cathete r into peripheral vein [facility] Start: 08-31-2022 Introduction of urin xiang catheter [facility] Start: 08-31-2022 Measuring intake and output [facility] Start: 08-31-2022 Oxygen therapy [facility] Start: 08-31-2022 Providing care accor ding to standard [facility] Start: 08-31-2022 Provision of activit y privileges [facility] Start: 08-31-2022 Referral to occupati onal therapist [facility] Start: 08-31-2022 Referral to service [facility] Start: 08-31-2022 [facility] Start: 08-31-2022 Verification routine [facility] Work Phone: Start: 08-31-2022 Admission procedure [facility] Start: 08-31-2022 [facility] Work Phone: Start: 08-20-2022 End: 08-20-2022 Patient encounter procedure 08/20/2022 Office Visit Cardiology Cecilia Campos MD [address] [place] [address] [facility] Start: 08-13-2022 End: 08-13-2022 Patient encounter procedure [facility] Start: 08-05-2022 Pneumococcal Vaccine : 65+ (3 - PPSV23 or PCV20) Pneumococcal Vaccine: 65+ (3 - PPSV23 or PCV20) [facility] Start: 08-05-2022 Pneumococcal Vaccine : Age 65+ (3 - PPSV23 or PCV20) Pneumococcal Vaccine: Age 65+ (3 - PPSV23 or PCV20) [facility] Start: 08-05-2022 Pneumococcal Vaccine : Age 65+ (3 of 3 - PPSV23 or PCV20) Pneumococcal Vaccine: Age 65+ (3 of 3 - PPSV23 or PCV20) [facility] Start: 08-05-2022 Pneumococcal Vaccine : Age 65+ (4 - PPSV23 if available, else PCV20) Pneumococcal Vaccine: Age 65+ (4 - PPSV23 if available, else PCV20) [facility] Start: 08-05-2022 Pneumococcal Vaccine : Age 65+ (4 - PPSV23 or PCV20) Pneumococcal Vaccine: Age 65+ (4 - PPSV23 or PCV20) [facility] Start: 08-05-2022 Pneumococcal Vaccine : Age 65+ (4 of 4 - PPSV23) Pneumococcal Vaccine: Age 65+ (4 of 4 - PPSV23) [facility] Start: 07-07-2022 End: 07-07-2022 Patient encounter procedure 07/07/2022 Appointment Cardiology [facility] Start: 07-02-2022 Microalbumin measurement, urine, quantitative Urine Microalbumin [facility] Start: 07-02-2022 Urine screening for protein Urine Microalbumin [facility] Start: 06-17-2022 Hemoglobin A1c measurement A1C [facility] Start: 06-17-2022 Hemoglobin A1c/Hemoglobin.total in Blood HBA1C [facility] Start: 05-25-2022 End: 05-25-2022 Clinical Support 05/25/2022 Clinical Support Sports Medicine Eliecer Hill, PRODUCTION CELL LEADER [address] [place] [address] [facility] Start: 05-14-2022 Screening for malign ant neoplasm of breast Mammogram [facility] Start: 05-07-2022 Influenza vaccination [facility] Start: 04-28-2022 End: 04-28-2022 Patient encounter procedure 04/28/2022 Office Visit Sports Eliecer Jennings, FREDDIE [address] [place] [address] [facility] Start: 04-24-2022 Screening for malign ant neoplasm of breast Mammogram [facility] Start: 04-15-2022 Mammography MAMMOGRAM [facility] Start: 04-15-2022 End: 04-15-2022 Patient encounter procedure 04/15/2022 Appointment Cardiology Lenard Das MD [address] [place] [address] [facility] Start: 03-19-2022 End: 03-19-2022 Patient encounter procedure [facility] Start: 03-05-2022 End: 03-05-2022 Patient encounter procedure 03/05/2022 Office Visit Cardiology Lenard Das MD [address] [place] [address] [facility] Start: 02-24-2022 End: 02-24-2022 Patient encounter procedure 02/24/2022 Office Visit Cardiology Cecilia Campos MD [address] [place] [address] [facility] Start: 02-10-2022 Microbial culture, routine Wound Culture [facility] Work Phone: Start: 01-08-2022 End: 01-08-2022 Patient encounter procedure 01/08/2022 Appointment Cardiology Lenard Das MD [address] [place] [address] [facility] Start: 01-07-2022 End: 01-07-2022 Patient encounter procedure 01/07/2022 Office Visit Sports Eliecer Jennings, PRODUCTION CELL LEADER [address] [place] [address] [facility] Start: 01-06-2022 End: 01-06-2022 Clinical Support 01/06/2022 Clinical Support Cardiology [facility] Start: 12-23-2021 Hemoglobin A1c measurement A1C [facility] Start: 12-23-2021 End: 12-23-2021 Clinical Support 12/23/2021 Clinical Support Cardiology [facility] Start: 12-16-2021 End: 12-16-2021 Patient encounter procedure 12/16/2021 Office Visit Sports Medicine Eliecer Hill, FREDDIE [address] [place] [address] [facility] Start: 12-04-2021 End: 12-04-2021 Patient encounter procedure 12/04/2021 Appointment Cardiology Lenard Das MD [address] [place] [address] [facility] Start: 11-27-2021 End: 11-27-2021 Patient encounter procedure 11/27/2021 Office Visit Podiatry Kalee Oropeza, DIANELYS [address] [place] [address] [facility] Start: 11-21-2021 End: 11-21-2021 Patient encounter procedure 11/21/2021 Appointment Cardiology Lenard Das MD [address] [place] [address] [facility] Start: 11-20-2021 End: 11-20-2021 Patient encounter procedure 11/20/2021 Office Visit Cardiology Lenard Das MD [address] [place] [address] [facility] Start: 10-29-2021 End: 10-29-2021 Patient encounter procedure 10/29/2021 Appointment Cardiology Lenard Das MD [address] [place] [address] [facility] Start: 10-08-2021 End: 10-08-2021 Patient encounter procedure 10/08/2021 Office Visit Orthopedic Surgery Latricia Wilson MD [address] [place] [address] [facility] Start: 10-07-2021 COVID-19 Vaccine (2 - Pfizer series) COVID-19 Vaccine (2 - Pfizer series) [facility] Start: 10-02-2021 Hemoglobin A1c measurement A1C [facility] Start: 09-22-2021 End: 09-22-2021 Patient encounter procedure 09/22/2021 Appointment Cardiology Lenard Das MD [address] [place] [address] [facility] Start: 09-15-2021 End: 09-15-2021 Patient encounter procedure 09/15/2021 Office Visit Sports Medicine Eliecer Hill, PRODUCTION CELL LEADER [address] [place] [address] [facility] Start: 09-08-2021 End: 09-08-2021 Patient encounter procedure 09/08/2021 Office Visit Neurology Richard Braga MD [address] [address] [facility] Start: 09-06-2021 ADVANCE DIRECTIVE DISCUSSION ADVANCE DIRECTIVE DISCUSSION [facility] Start: 09-06-2021 DEPRESSION ASSESSMENT DEPRESSION ASS ESSMENT [facility] Start: 09-04-2021 End: 09-04-2021 Patient encounter procedure [facility] Start: 09-02-2021 COVID-19 Vaccine (2 - Pfizer 3-dose booster series) COVID-19 Vaccine (2 - Pfizer 3-dose booster series) [facility] Start: 09-02-2021 COVID-19 Vaccine (2 - Pfizer 3-dose series) COVID-19 Vaccine (2 - Pfizer 3-dose series) [facility] Start: 09-02-2021 COVID-19 Vaccine (2 - Pfizer series) COVID-19 Vaccine (2 - Pfizer series) [facility] Start: 08-21-2021 Ophthalmic examinati on and evaluation Ophthalmology Exam [facility] Start: 08-21-2021 End: 08-21-2021 Patient encounter procedure 08/21/2021 Office Visit Sports Medicine Elieecr Hill, PRODUCTION CELL LEADER [address] [place] [address] [facility] Start: 08-20-2021 End: 08-20-2021 Patient encounter procedure 08/20/2021 Appointment Cardiology Lenard Das MD [facility] [place] [address] [facility] Start: 08-06-2021 End: 08-06-2021 Patient encounter procedure 08/06/2021 Office Visit Sports Medicine Eliecer Hill CNP [address] [place] [address] [facility] Start: 08-05-2021 End: 08-05-2021 Patient encounter procedure 08/05/2021 Office Visit Pulmonology Eduardo Castro MD [address] [place] [phone] [facility] Start: 07-24-2021 End: 07-24-2021 Patient encounter procedure 07/24/2021 Appointment Radiology Eduardo Castro MD [address] [place] [phone] [facility] CT Scan Start: 07-16-2021 End: 07-16-2021 Patient encounter procedure 07/16/2021 Appointment Cardiology Lenard Das MD [address] [place] [phone] [facility] Start: 06-25-2021 End: 06-25-2021 Patient encounter procedure [facility] Start: 06-23-2021 End: 06-23-2021 Patient encounter procedure [facility] Start: 06-18-2021 End: 06-18-2021 Patient encounter procedure [facility] Start: 05-07-2021 Influenza vaccination [facility] Start: 05-06-2021 End: 05-06-2021 Patient encounter procedure 05/06/2021 Appointment Cardiology Lenard Das MD [address] [place] [phone] [facility] Start: 03-31-2021 End: 03-31-2021 Patient encounter procedure 03/31/2021 Appointment Cardiology Lenard Das MD [address] [place] [address] [phone] [facility] Start: 03-12-2021 Pneumococcal vaccination PNEUM OCOCCAL VACCINE AGE 65+ (2 of 2 - PPSV23) [facility] Start: 03-12-2021 Pneumococcal Vaccine : Age 65+ (4 of 4 - PPSV23) Pneumococcal Vaccine: Age 65+ (4 of 4 - PPSV23) [facility] Start: 02-24-2021 End: 02-24-2021 Patient encounter procedure 02/24/2021 Appointment Cardiology Steffany Fowler MD [address] [place] [address] [phone] [facility] Start: 02-13-2021 End: 02-13-2021 Office Visit 02/13/2021 Office Visit Cardiology Cecilia Campos MD [address] [place] [address] [phone] Lenard Das MD [address] [place] [address] [phone] [facility] Start: 02-11-2021 End: 02-11-2021 Office Visit 02/11/2021 Office Visit Neurology Cecilia Campos MD [address] [place] [address] [phone] Richard Braga MD [address] [address] [phone] [facility] Start: 01-20-2021 End: 01-20-2021 Patient encounter procedure 01/20/2021 Appointment Cardiology Steffany Fowler MD [address] [place] [address] [phone] [facility] Start: 01-15-2021 End: 01-15-2021 Office Visit 01/15/2021 Office Visit Orthopedic Surgery Latricia Wilson MD [address] [place] [address] [phone] [facility] Start: 01-07-2021 End: 01-07-2021 Patient encounter procedure 01/07/2021 Office Visit Sports Medicine Eliecer Hill, PRODUCTION CELL LEADER [address] [place] [address] [phone] [facility] Start: 01-06-2021 End: 01-06-2021 Office Visit 01/06/2021 Office Visit Orthopedic Surgery Latricia Wilson MD [address] [place] [address] [phone] [facility] Start: 12-26-2020 End: 12-26-2020 Clinical Support 12/26/2020 Clinical Support Cardiology [facility] Start: 12-04-2020 End: 12-04-2020 Office Visit 12/04/2020 Office Visit Cardiology Cecilia Campos MD [facility] [place] [address] [phone] [facility] Start: 11-14-2020 End: 11-14-2020 Office Visit 11/14/2020 Office Visit Sports Medicine Eliecer Hill, PRODUCTION CELL LEADER [address] [place] [address] [phone] [facility] Start: 10-31-2020 End: 09-30-2021 Polysomnography 4 or more parameters with CPAP Polysomnography 4 or more parameters with CPAP Sleep Center Routine YVONNE (obstructive sleep apnea) Expected: 10/31/2020, Expires: 09/30/2021 [facility] Comment on above: Expected: 10/31/2020 , Expires: 09/30/2021 Start: 10-17-2020 End: 10-17-2020 Office Visit 10/17/2020 Office Visit Sports Eliecer Jennings, FREDDIE [address] [place] [address] [phone] [facility] Start: 10-11-2020 End: 10-11-2020 Office Visit 10/11/2020 Office Visit Neurology Richard Braga MD [facility] [place] [address] [address] [phone] [facility] Start: 10-01-2020 End: 10-01-2020 Office Visit 10/01/2020 Office Visit Sports Eliecer Jennings, FREDDIE [address] [place] [address] [phone] [facility] Start: 08-07-2020 End: 08-07-2020 Clinical Support 08/07/2020 Clinical Support Sports Medicine Eliecer Hill, FREDDIE [address] [place] [address] [phone] [facility] Start: 07-22-2020 End: 11-06-2020 CT of chest without contrast CT Chest Without Contrast Imaging Routine Lung nodules Expected: 07/22/2020, Expires: 11/06/2020 [facility] Comment on above: Expected: 07/22/2020 , Expires: 11/06/2020 Start: 07-22-2020 End: 07-22-2020 Appointment 07/22/2020 Appointment Radiology Angelina Lopez MD [facility] [place] [address] [phone] [facility] CT Scan Start: 07-19-2020 End: 07-26-2020 CT of chest without contrast CT Chest Without Contrast Imaging Routine Lung nodules Expected: 07/19/2020, Expires: 07/26/2020 [facility] Comment on above: Expected: 07/19/2020 , Expires: 07/26/2020 Start: 06-20-2020 End: 06-20-2020 Appointment 06/20/2020 Appointment Cardiology Cecilia Campos MD [address] [place] [address] [phone] [facility] Start: 06-07-2020 End: 06-07-2020 Office Visit 06/07/2020 Office Visit Cardiology Cecilia Campos MD [address] [place] [address] [phone] [facility] Start: 06-03-2020 End: 06-03-2020 Office Visit [facility] Start: 05-09-2020 End: 05-09-2020 Office Visit [facility] Start: 05-07-2020 Influenza vaccination Sequenti al Influenza Vaccine (#1) [facility] Start: 05-07-2020 Influenza vaccinatio n given [facility] Start: 02-19-2020 End: 02-19-2020 Clinical Support 02/19/2020 Clinical Support Sports Medicine Elba Reyes, PRODUCTION CELL LEADER [address] [facility] [place] [address] [facility] Start: 02-13-2020 End: 02-13-2020 Office Visit 02/13/2020 Office Visit Cardiology Cecilia Campos MD [address] [facility] [place] [address] [phone] [facility] Start: 11-13-2019 End: 11-13-2019 Office Visit 11/13/2019 Office Visit Cardiology Cecilia aCmpos MD [address] [facility] [place] [address] [phone] [facility] Start: 11-07-2019 End: 11-07-2019 Office Visit 11/07/2019 Office Visit Pulmonology Angleina Lopez MD [address] [place] [address] [phone] [facility] Start: 11-01-2019 End: 11-01-2019 Office Visit 11/01/2019 Office Visit Pulmonology Angelina Lopez MD [address] [place] [address] [phone] [facility] Start: 10-30-2019 End: 10-30-2019 Clinical Support 10/30/2019 Clinical Support Sports Medicine Elba Reyes, PRODUCTION CELL LEADER [address] [place] [address] [phone] [facility] Start: 08-11-2019 End: 08-11-2019 Hospital Encounter [facility] Start: 08-09-2019 End: 08-09-2019 Office Visit 08/09/2019 Office Visit Cardiology Angelina Lopez MD [address] [place] [address] [phone] Cecilia Campos MD [address] [place] [address] [phone] [facility] Start: 07-31-2019 End: 07-31-2019 Clinical Support 07/31/2019 Clinical Support Elba Adorno CNP [address] [place] [address] [phone] [facility] Start: 07-26-2019 End: 07-26-2019 Office Visit 07/26/2019 Office Visit Pulmonology Angelina Lopez MD [address] [place] [address] [phone] [facility] Start: 07-19-2019 End: 07-19-2019 Appointment 07/19/2019 Appointment Radiology Angelina Lopez MD [address] [place] [address] [phone] [facility] CT Scan Start: 05-07-2019 Influenza vaccinatio n given [facility] Start: 04-20-2019 End: 04-20-2019 Clinical Support 04/20/2019 Clinical Support Elba Adorno CNP [address] [place] [address] [phone] [facility] Start: 02-08-2019 Depression screening using PHQ-9 (Patient Health Questionnaire 9) score Depression Screening (PHQ-2/9) [facility] Start: 01-16-2019 End: 01-16-2019 Clinical Support 01/16/2019 Clinical Support Elba Adorno CNP [address] [place] [address] [phone] [facility] Start: 11-10-2018 End: 11-10-2018 Office Visit 11/10/2018 Office Visit Elba Adorno CNP [address] [place] [address] [phone] [facility] Start: 05-07-2018 Influenza vaccination SEQUENTI AL INFLUENZA VACCINE (Season Ended) [facility] Start: 05-07-2018 Influenza vaccinatio n given SEQUENTIAL INFLUENZA VACCINE (#1) [facility] Start: 05-03-2018 End: 05-03-2018 Ambulatory [facility] Start: 11-22-2017 Ambulatory 11/22/2017 Hos pital Angelina Gamez MD [address] [place] [address] [address] [place] [address] [phone] [facility] Start: 05-07-2017 Influenza vaccination SEQUENTI AL INFLUENZA VACCINE (#1) [facility] Work Phone: Start: 2017 Fall risk assessment [facility] Start: 2017 Pneumococcal vaccination PNEUM OCOCCAL VACCINE AGE 65+ (1 of 2 - PCV13) [facility] Work Phone: Start: 01-20-2017 Tetanus vaccination [facility] Start: 01-20-2017 Urine microalbumin profile DTaP,Tdap,Td Vaccine (2 - Td or Tdap) [facility] Start: 11-03-2013 Hepatitis B surface antibody level LDL CHOLESTEROL [facility] Start: 10-05-2013 Hepatitis C antibody , confirmatory test DILATED RETINAL EXAM [facility] Start: 2012 Hepatitis B Vaccine (1 of 3 - Risk 3-dose series) Hepatitis B Vaccine (1 of 3 - Risk 3-dose series) [facility] Start: 2012 Respiratory Syncytia l Virus Immunization: Risk, 60-74 Risk, or 75+ (1 - Risk 60-74 years 1-dose series) Respiratory Syncytial Virus Immunization: Risk, 60-74 Risk, or 75+ (1 - Risk 60-74 years 1-dose series) [facility] Start: 2012 RSV Vaccine (1 - 1-d ose 60+ series) RSV Vaccine (1 - 1-dose 60+ series) [facility] Start: 2012 Zoster vacc, sc ZOSTER VACCINE [facility] Work Phone: Start: 2002 Administration of he rpes zoster vaccine ZOSTER VACCINES (1 of 2) [facility] Start: 2002 Screening for malign ant neoplasm of colon [facility] Start: 2002 SHINGRIX VACCINE (1 of 2) SHINGRIX VACCINE (1 of 2) [facility] Start: 1997 COLOGUARD (FIT-DNA) COLOGUARD (FIT-D NA) [facility] Start: [address] COLONOGRAPHY [facility] Start: 1997 FECAL OCCULT BLOOD FECAL OCCULT BLOO D [facility] Start: 1997 SIGMOIDOSCOPY SIGMOIDOSCOPY [facility] Start: 1992 Screening mammography Mammogram [facility] Start: 1971 Administration of he rpes zoster vaccine Zoster Vaccines (1 of 2) [facility] Start: 1971 Urine microalbumin profile DTAP,TDAP,TD (1 - Tdap) [facility] Start: 1970 ANNUAL PCP TEAM SCHOOL SPEECH THERAPIST MITESH DISEASE VISIT ANNUAL PCP TEAM CHRONIC DISEASE VISIT [facility] Start: 1970 Hepatitis C antibody , confirmatory test Hepatitis C Screening [facility] Start: 1970 Hepatitis C screening [facility] Start: 1970 HEPATITIS C SCREENING HEPATITIS C SC REENING [facility] Start: 1970 SPIROMETRY SPIROMETRY [facility] Start: 1968 COVID-19 Vaccine (1 of 2) COVID-19 Vaccine (1 of 2) [facility] Start: 1968 COVID-19 Vaccine (1) COVID-19 Vaccin e (1) [facility] Start: 1964 Adolescent depressio n screening assessment [facility] Start: 1964 COVID-19 Vaccine (1) COVID-19 Vaccin e (1) [facility] Start: 1964 Depression screening using PHQ-9 (Patient Health Questionnaire 9) score Depression Screening (PHQ9) [facility] Start: 1962 3 comp foot exam completed DIABETIC FOOT EXAM [facility] Start: 1962 Diabetic foot examination [facility] Start: 1962 Hepatitis B screening URINE ALBUMIN:CREATININE RATIO [facility] Start: 1962 Microalbumin measurement, urine, quantitative Urine Microalbumin [facility] Start: 1962 Urine screening for protein Urine (micro)albumin/creatini ne ratio - Diabetes [facility] Start: 1958 PNEUMOCOCCAL: 65+ (1 - PCV) PNEUMOCOCCAL: 65+ (1 - PCV) [facility] Start: 1955 History and physical examination, annual for health maintenance Wellness Visit [facility] Start: 1952 Depression screening using PHQ-9 (Patient Health Questionnaire 9) score DEPRESSION SCREENING (PHQ9) [facility] Start: 1952 Fall risk assessment Falls Risk Asse ssment [facility] Start: 1952 Hepatitis C antibody , confirmatory test HEPATITIS C SCREENING [facility] Start: 1952 Protein mass conc [facility] Start: 1952 Screening for malign ant neoplasm of colon [facility] Start: 1952 Screening mammography Mammogram [facility] Start: 1952 HEPATITIS C SCREENING HEPATITIS C SC REENING [facility] Work Phone: Start: 1952 Screening colonoscopy COLONOSCOPY [facility] Work Phone: Start: 1952 End: 1952 Screening for osteoporosis DEXA SCAN [facility] Start: 1952 Tetanus vaccination TETANUS EVERY 10 YR [facility] Work Phone: End: 12-20-2020 12 lead ECG [facility] Comment on above: Once for 1 Occurrenc es starting 12/20/2020 until 12/20/2020 End: 02-11-2022 12 lead ECG ECG 12 Lead ECG Routine Syncope, unspecified syncope type 15 Occurrences starting 02/10/2021 until 02/11/2022 [facility] Comment on above: 15 Occurrences start ing 02/10/2021 until 02/11/2022 End: 08-08-2025 12 lead ECG ECG 12 Lead ECG Routine Abnormal ECG 3 Occurrences starting 08/08/2024 until 08/08/2025 [facility] Work Phone: Comment on above: 3 Occurrences starti ng 08/08/2024 until 08/08/2025 End: 08-07-2021 24 Hour ECG Holter monitor - 24 hour Cardiac Services Routine Tachycardia 1 Occurrences starting 06/07/2020 until 08/07/2021 [facility] Comment on above: 1 Occurrences starti ng 06/07/2020 until 08/07/2021 End: 10-22-2021 Alkaline phosphatase - bone isoenzyme measurement Alkaline Phosphatase, Bone Specific Lab Routine Age-related osteoporosis with current pathological fracture with routine healing, subsequent encounter 1 Occurrences starting 10/22/2020 until 10/22/2021 [facility] Comment on above: 1 Occurrences starti ng 10/22/2020 until 10/22/2021 Bacteria identified in Urine by Culture Urine Culture [facility] Work Phone: End: 11-20-2022 Basic metabolic 2000 panel - Serum or Plasma Basic metabolic panel Lab Routine Syncope, unspecified syncope type 1 Occurrences starting 11/20/2021 until 11/20/2022 [facility] Work Phone: Comment on above: 1 Occurrences starti ng 11/20/2021 until 11/20/2022 Bilirubin measuremen t, urine [facility] End: 01-06-2022 Bone density scan XR Bone Density DEXA Axial Imaging Routine Age-related osteoporosis without current pathological fracture 1 Occurrences starting 01/06/2021 until 01/06/2022 [facility] Comment on above: 1 Occurrences starti ng 01/06/2021 until 01/06/2022 End: 04-13-2022 Carotid artery doppler assessment Ultrasound doppler carotid Vascular Ultrasound Routine Stenosis of right internal carotid artery 1 Occurrences starting 02/11/2021 until 04/13/2022 [facility] Comment on above: 1 Occurrences starti ng 02/11/2021 until 04/13/2022 End: 11-20-2022 Complete blood count with white cell differential, manual CBC and differential Lab Routine Syncope, unspecified syncope type 1 Occurrences starting 11/20/2021 until 11/20/2022 [facility] Comment on above: 1 Occurrences starti ng 11/20/2021 until 11/20/2022 End: 10-22-2021 Creatinine [Mass/Vol] Creatinine, serum Lab Routine Age-related osteoporosis with current pathological fracture with routine healing, subsequent encounter 1 Occurrences starting 10/22/2020 until 10/22/2021 [facility] Comment on above: 1 Occurrences starti ng 10/22/2020 until 10/22/2021 End: 07-13-2020 CT of chest without contrast CT Chest Without Contrast Imaging Routine Persistent cough SOB (shortness of breath) 1 Occurrences starting 07/13/2019 until 07/13/2020 [facility] Comment on above: 1 Occurrences starti ng 07/13/2019 until 07/13/2020 End: 08-07-2021 Echocardiography Echocardiogram complete Echocardiography Routine Tachycardia NOBLE (dyspnea on exertion) 1 Occurrences starting 06/07/2020 until 08/07/2021 [facility] Comment on above: 1 Occurrences starti ng 06/07/2020 until 08/07/2021 End: 01-19-2023 Echocardiography Echocardiogram complete Echocardiography Routine Syncope, unspecified syncope type 1 Occurrences starting 11/20/2021 until 01/19/2023 [facility] Comment on above: 1 Occurrences starti ng 11/20/2021 until 01/19/2023 Hemoglobin [Presence ] in Urine [facility] Iron [Mass/mass] in Unspecified specimen [facility] Work Phone: Iron and Iron bindin g capacity panel - Serum or Plasma [facility] Work Phone: Iron saturation [Mas s Fraction] in Serum or Plasma [facility] Work Phone: Lipid 1996 panel - S jefry or Plasma [facility] Work Phone: Lipid 1996 panel - S jefry or Plasma [facility] Measurement of keton es in urine using dipstick [facility] Microscopic urinalysis [facility] End: 04-08-2021 MR Knee Right Without Contrast MR Knee Right Without Contrast Imaging Routine Tear of lateral meniscus of right knee, unspecified tear type, unspecified whether old or current tear, subsequent encounter 1 Occurrences starting 10/09/2020 until 04/08/2021 [facility] Comment on above: 1 Occurrences starti ng 10/09/2020 until 04/08/2021 End: 07-08-2023 Outpatient Device Clinic Referral - Open for details Outpatient [facility] Referral - Open for details Cardiac Services Routine Pacemaker complications, initial encounter Syncope, cardiogenic 1 Occurrences starting 05/08/2022 until 07/08/2023 [facility] Work Phone: Comment on above: 1 Occurrences starti ng 05/08/2022 until 07/08/2023 End: 10-22-2021 Parathyrin.intact and Calcium panel - Serum or Plasma PTH, Intact Lab Routine Age-related osteoporosis with current pathological fracture with routine healing, subsequent encounter 1 Occurrences starting 10/22/2020 until 10/22/2021 [facility] Comment on above: 1 Occurrences starti ng 10/22/2020 until 10/22/2021 Patient Education [facility] Work Phone: Patient referral [facility] Work Phone: pH of Urine [facility] End: 08-09-2020 Radionuclide myocardial perfusion study NM Myocardial Perfusion Multiple SPECT Imaging Routine NOBLE (dyspnea on exertion) Abnormal ECG 1 Occurrences starting 08/09/2019 until 08/09/2020 [facility] Comment on above: 1 Occurrences starti ng 08/09/2019 until 08/09/2020 Specific gravity of Urine [facility] Thyroid stimulating hormone measurement [facility] Work Phone: Thyroid stimulating hormone measurement [facility] Urinalysis, blood, qualitative [facility] Urine dipstick for glucose [facility] Urine dipstick for leukocyte esterase [facility] Urine dipstick for nitrite [facility] Urine dipstick for protein [facility] Urine examination [facility] Urine microalbumin/creatinine ratio measurement [facility] Work Phone: Urine microalbumin/creatinine ratio measurement [facility] Urine microscopy: epithelial cells [facility] Urine Microscopy: wh ite cells [facility] Urobilinogen [Presen ce] in Urine [facility] End: 10-22-2021 Vitamin D, 25-hydroxy measurement Vitamin D, Total, 25-OH Lab Routine Vitamin D deficiency, unspecified Age-related osteoporosis with current pathological fracture with routine healing, subsequent encounter 1 Occurrences starting 10/22/2020 until 10/22/2021 [facility] Comment on above: 1 Occurrences starti ng 10/22/2020 until 10/22/2021 Vitamin D, 25-hydrox y measurement [facility] Work Phone: Vitamin D, 25-hydrox y measurement [facility] End: 10-22-2021 XR Hands Bilateral Ball Catchers 2 Views XR Hands Bilateral Ball Catchers 2 Views Imaging Routine Arthralgia, unspecified joint 1 Occurrences starting 10/22/2020 until 10/22/2021 [facility] Comment on above: 1 Occurrences starti ng 10/22/2020 until 10/22/2021 [facility] NEGATED: Highlighted row has been ruled out! Planned Goals not documented [facility] Work Phone: Immunizations Immunization Date Immunization Notes Care Provider Celina beckham 08-12-2021 Covid (Pfizer) Dr. Olivier Acosta Work Phone: [facility] 08-05-2021 pneumococcal conjuga te vaccine, 13 valent Eduardo Castro MD Work Phone: [facility] 08-05-2021 pneumococcal vaccine , unspecified formulation Eduardo Castro MD Work Phone: [facility] 07-21-2017 Influenza, high dose seasonal Dr. Olivier Acosta MD Work Phone: [facility] 07-21-2017 influenza, high dose seasonal, preservative-free [facility] 07-21-2017 pneumococcal conjuga te vaccine, 13 valent [facility] 07-21-2017 influenza virus vacc ine, unspecified formulation Screen [facility] 05-06-2016 influenza, injectabl e, quadrivalent, preservative free [facility] 03-12-2016 pneumococcal polysaccharide vaccine, 23 valent [facility] 05-13-2015 influenza, seasonal, injectable, preservative free [facility] 12-28-2014 pneumococcal polysaccharide vaccine, 23 valent [facility] 01-20-2007 tetanus toxoid, redu luis diphtheria toxoid, and acellular pertussis vaccine, adsorbed [facility] Payers Date Payer Category Payer Unknown [id number] 2024 Medicaid [id number] 2024 Medicare [id number] 2024 Self-pay [id number] 2024 Medicaid [id number]. 1.13.385.2.7.3.6 [id number] 2017 Unknown DEMETRIS WILLSON TRADITIONAL xxxxxxxxxxxx 2017-Present [id number] 1..[id number] [id number] 2017 Unknown [id number] 1.2.840.241047.1.13.385.2.7.3.6 [id number] 2017 Unknown [id number] 2015 Medicare [id number] 2.16.840.1.217275.3.249.13 2010 Medicare 2010 Medicare MEDICARE MEDICAR E PART A & B xxxxxxxxxxx 2010-Present [place] xxxxxxxxxxx 1.2.840.062803.1.13.385.2.7.3.6 [id number] 2010 Medicare [id number] 1.2.840.080734.1.13.385.2.7.3.6 79248.315 2010 Unknown 2010 Medicare [id number] 1952 Unknown [id number] 2.16.840.1.183138.3.579.2.717 1952 Unknown [id number] 2.16.840.1.484600.3.579.2.717 1952 Unknown [id number] 2.16.840.1.901266.3.579.2.717 1952 Unknown [id number] 2.16.840.1.854083.3.579.2.356 1952 Unknown [id number] 2.16.840.1.879251.3.579.2.903 1952 Unknown [id number] 2.16.840.1.969309.3.579.2.902 1952 Unknown [id number] 2.16.840.1.513761.3.579.2.1069 1952 Unknown [id number] 2.16.840.1.859482.3.579.2.903 1952 Unknown [id number] 2.16.840.1.910597.3.579.2.3 1952 Unknown [id number] 2.16.840.1.234224.3.579.2. 1952 Unknown [id number] 2.16.840.1.195612.3.579.2. 1952 Unknown [id number] 2.16.840.1.403374.3.579.2. 1952 Unknown [id number] 2.16.840.1.025725.3.579.2. 1952 Unknown [id number] 2.16.840.1.634018.3.579.2. 1952 Unknown [id number] 2.16.840.1.398745.3.579.2. 1952 Unknown [id number] 2.16.840.1.424636.3.579.2 1952 Unknown [id number] 2.16.840.1.486584.3.579.2. 1952 Unknown [id number] 2.16.840.1.462985.3.579.2 1952 Unknown [id number] 2.16.840.1.162594.3.579.2. 1952 Unknown [id number] 2.16.840.1.993393.3.579.2 1952 Unknown [id number] 2.16.840.1.913373.3.579.2. 1952 Unknown [id number] 2.16.840.1.559575.3.579.2 1952 Unknown [id number] 2.16.840.1.775837.3.579.2. 1952 Unknown [id number] 2.16.840.1.910717.3.579.2.903 1952 Unknown [id number] 2.16.840.1.688949.3.579.2. 1952 Unknown [id number] 2.16.840.1.319065.3.579.2.90 1952 Unknown [id number] 2.16.840.1.258929.3.579.2. 1952 Unknown [id number] 2.16.840.1.293516.3.579.2. 1952 Unknown [id number] 2.16.840.1.137676.3.579.2. 1952 Unknown [id number] 2.16.840.1.189487.3.579.2. 1952 Unknown [id number] 2.16.840.1.635974.3.579.2. 1952 Unknown [id number] 2.16.840.1.959079.3.579.2. 1952 Unknown [id number] 2.16.840.1.368287.3.579.2. 1952 Unknown [id number] 2.16.840.1.245319.3.579.2. 1952 Unknown [id number] 2.16.840.1.864009.3.579.2. 1952 Unknown [id number] 2.16.840.1.204671.3.579.2.900 1952 Unknown [id number] 2.16.840.1.492399.3.579.2.900 1952 Unknown [id number] 2.16.840.1.960643.3.579.2.900 1952 Unknown [id number] 2.16.840.1.126921.3.579.2.900 1952 Unknown [id number] 2.16.840.1.588243.3.579.2.900 1952 Unknown [id number] 2.16.840.1.718852.3.579.2.900 1952 Unknown [id number] 2.16.840.1.368597.3.579.2.900 1952 Unknown [id number] 2.16.840.1.439693.3.579.2.651 1952 Unknown [id number] 2.16.840.1.306867.3.579.2.65 1952 Unknown [id number] 2.16.840.1.329234.3.579.2.651 1952 Unknown [id number] 2.16.840.1.847607.3.579.2.651 1952 Unknown [id number] 2.16.840.1.285978.3.579.2.651 Medicare [id number] Unknown [id number] Unknown [id number] 2.16.840.1.690080.3.579.2.462 Unknown [id number] 2.16.840.1.873438.3.579.2.462 Unknown [id number] 2.16.840.1.615705.3.579.2.462 Unknown [id number] 2.16.840.1.116107.3.579.2.462 Unknown [id number] 2.16.840.1.198416.3.579.2.462 Unknown [id number] 2.16.840.1.177044.3.579.2.462 Unknown [id number] 2.16.840.1.070379.3.579.2.462 Unknown [id number] 2.16.840.1.404514.3.579.2.462 Unknown [id number] 2.16.840.1.885028.3.579.2.462 Unknown [id number] 2.16.840.1.467082.3.579.2.462 Unknown [id number] 2.16.840.1.687864.3.579.2.462 Unknown [id number] 2.16.840.1.551742.3.579.2.462 Unknown [id number] 2.16.840.1.987129.3.579.2.462 Unknown [id number] 2.16.840.1.139623.3.579.2.462 Unknown [id number] 2.16.840.1.642522.3.579.2.462 Unknown [id number] 2.16.840.1.822895.3.579.2.462 Unknown [id number] 2.16.840.1.978317.3.579.2.462 Unknown [id number] 2.16.840.1.156503.3.579.2.462 Unknown [id number] 2.16.840.1.115937.3.579.2.462 Unknown [id number] 2.16.840.1.602658.3.579.2.462 Unknown [id number] 2.16.840.1.758265.3.579.2.462 Unknown [id number] 2.16.840.1.281177.3.579.2.462 Social History Date Type Detail Facility Start: 02-08-2018 End: 06-22-2025 Tobacco smoking status [facility] Never smoker [facility] Work Phone: Start: 1950 Sex Assigned At Not on file [facility] Work Phone: Start: 07-13-2019 End: 12-14-2023 Alcohol intake Current non-drinker of alcohol (finding) [facility] Start: 11-10-2021 End: 01-05-2023 Exposure to SARS-CoV-2 (event) Not sure [facility] Start: 04-25-2020 End: 08-20-2022 Tobacco use and exposure Never used [facility] Start: 11-25-2021 End: 12-05-2021 Exposure to SARS-CoV-2 (event) Unable to assess [facility] Start: 09-20-2017 End: 12-10-2023 Never smoked tobacco Never smoked tobacco [facility] Start: 05-31-2019 End: 10-08-2022 Tobacco smoking consumption unknown [facility] Start: 1950 Sex Assigned At Female [facility] Start: 03-30-2022 Alcohol intake Current drinke r of alcohol (finding) [facility] Start: 01-05-2023 End: 12-10-2023 Tobacco use panel [facility] Start: 07-31-2019 Gender identity Identifies as female gender (finding) [facility] Start: 07-31-2019 Sexual orientation Heterosexua l (finding) [facility] National Score (1-100), lower number is lower risk 69 [facility] Has the electric, gas, oil, or water company threatened to shut off services in your home in past 12Mo No [facility] (I/We) worried whether (my/our) food would run out before (I/we) got money to buy more. Never true [facility] Start: 02-28-2020 Sexual Orientation Choose not to disclose [facility] NEGATED: Highlighted row - - [facility] Work Phone: NEGATED: Highlighted row [facility] Medical Equipment Procedure Code Equipment Code Equipment Origin al Text Equipment Identifier Dates Monitor Insertab le Cardiac Loop Recorder Lux-Dx - [id number], [id number] FDA Start: 12-20-2020 Biomet Spo Lux-D x [id number] Start: 12-19-2020 Biomet Spo M301 Lux-Dx Icm [id number] Start: 12-19-2020 Envelope Anti-Bacterial Aigis/Tyrx Pacer Resorbable Mesh - [id number] FDA Start: 12-15-2021 Pacer Mri [address] - [id number] ()[id number], [id number] FDA Start: 12-15-2021 Lead Pacing 7841 Mri Ingevity Plus - [id number] ()[id number], [id number], [id number] FDA Start: 12-15-2021 Biomet Spo L311 [address] Mri [id number] Start: 12-14-2021 Biomet Spo 7841 Ingevity + Mri [id number] Start: 12-14-2021 Envelope Anti-Bacterial Aigis/Tyrx Pacer Resorbable Mesh - [id number] Start: 05-08-2022 Lead Pacing 7840 Mri Ingevity Plus - [id number] ()[id number], [id number] FDA Start: 12-15-2021 Comment on above: Description: Isaiah g implant. Adjusted. Lead Pacing 7841 Mri Ingevity Plus - [id number] Start: 05-08-2022 Biomet Spo 7841 Ingevity + Mri [id number] Start: 05-07-2022 [employer] C ACCOLADE [...] Start: 12-15-2021 FDA Start: 12-15-2021 FDA Start: 04-11-2022 FDA Start: 12-15-2021 FDA Start: 12-15-2021 BOSTON [...] Comment on above: Description: Ref num demar [id number] Start: 05-29-2023 Biomet Spo L311 [address] Mri [id number] Start: 12-14-2021 Biomet Spo 7840 Ingevity + Mri [id number] Start: 12-14-2021 Biomet Spo 7841 Ingevity + Mri [id number] Start: 05-07-2022 [employer] ACCOLADE PACEMAKER FDA Start: 12-15-2021 [employer] ACCOLADE PACEMAKER FDA Start: 12-15-2021 [employer] ACCOLADE PACEMAKER FDA Start: 12-15-2021 [employer] C ACCOLADE PACEMAKER FDA Start: 12-15-2021 [employer] ACCOLADE PACEMAKER FDA Start: 12-15-2021 [employer] ACCOLADE PACEMAKER FDA Start: 12-15-2021 Biomet Spo L311 [address] Mri [id number] Start: 12-14-2021 Biomet Spo 7840 Ingevity + Mri [id number] Start: 12-14-2021 Biomet Spo 7841 Ingevity + Mri [id number] Start: 05-07-2022 Biomet Spo L311 [address]ol[address] Mri [id number] Start: 12-14-2021 Biomet Spo 7840 Ingevity + Mri [id number] Start: 12-14-2021 Biomet Spo 7841 Ingevity + Mri [id number] Start: 05-07-2022 [employer] ACCOLADE [...] Result Facility 10-12-2022 Functional status Bathroom [facility] Work Phone: 09-22-2022 Functional status Ambulates [facility] Work Phone: 09-14-2022 Functional status Bedrest [facility] Work Phone: 09-14-2022 Functional status With Assist of 1 [facility] Work Phone: 09-01-2022 Functional status Ambulates [facility] Work Phone: NEGATED: Highlighted row Functional performance Functional status health issues are not documented [facility] Work Phone: Mental Status Date Assessment Result Facility 10-12-2022 Cognitive function Voice/Name [facility] Work Phone: 10-08-2022 Cognitive function Level Of Cons ciousness Awake;Alert;Appropriate ;Follows Commands [facility] Work Phone: 09-22-2022 Cognitive function Voice/Name [facility] Work Phone: 09-13-2022 Cognitive function Voice/Name [facility] Work Phone: 09-01-2022 Cognitive function Voice/Name [facility] Work Phone: NEGATED: Highlighted row Cognitive function [Interpretation] Cognitive status health issues are not documented [facility] [place] Work Phone: Clinical Notes 12-20-2020 to 01-09-2024 Quick Note - Gisele Velasquez, VIKA - 12/17/2023 12:52 PM EDTQubrendan Note - Alexsandra Glez RN - 12/17/2023 12:52 PM EDTQubrendan Note - Gisele Velasquez, VIKA - 12/17/2023 12:52 PM EDTPatient Instructions Note Date & Type Note Facility 01-09-[address] [facility] DISCHARGE SUMMARY NAME ACCOUNT SEX AGE ADMIT DISCHARGE PT MED. RECORD# NUMBER DATE DATE TYPE MEL [id number] F 73 11/23/23 Priya Dodge [id number] ROOM: 308MO DATE OF : 1950 ATTENDING [...] insufficiency and uncontrolled diabetes and recommendation for tube coremaker. She does have KALEB hose, knee highs, and I did add Florinef, and she does feel better this morning. 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 Page 1 of 2 MELKRISTEN Discharge Summary KRISTEN MANN : 1950 Today, on the date [...] kidney disease, and I will order a BMP for follow-up with Dr. Acosta who will get the results, and she does have an office appointment that was set up prior to discharge. Condition on discharge is improved. DISPOSITION: Discharge destination: [facility]. MEDICATIONS ON DISCHARGE: (1) Acetaminophen 650 mg [...] to do MRI due to pacemaker and tube coremaker for adrenal insufficiency and uncontrolled diabetes. Follow-up with Dr. Acosta on November 28 at 11:30 a.m. with a BMP. Check Glucoscans before meals and at bedtime with moderate NovoLog sliding scale. KALEB hose knee high daily. I evaluated the patient myself the accurate E&M above done by Marla Medina MD Dictated by valery Villanueva for Shahnaz Medina M.D. 11/24/23 12:27 JOB #: [id number] Transcribed By: am 11/24/23 13:34 Electronically signed by: E-Sign: SHAHNAZ MEDINA MD 01/09/24 10:55 Page 2 of 2 KRISTEN MANN Discharge Summary [facility] 01-07-[address] [facility] HISTORY & PHYSICAL NAME ACCOUNT SEX AGE ADMIT DISCHARGE PT MED. RECORD# NUMBER DATE DATE TYPE MEL [id number] F 73 11/22/23 2 KRISTEN Dodge [id number] ROOM: 308MO DATE OF : [birth year] DICTATING [...] headaches. (10) Chronic back pain. (11) Chronic stomach issues, followed as an outpatient. (12) Vertigo in [...] 4 KRISTEN MANN History & Physical PAULINO MANNCUAUHTEMOC Dodge :1950 lies down, but when she sits [...] MANN History & Physical KRISTEN MANN :1950 IMPRESSION/PLAN: 1. Orthostatic hypotension by history. She is more symptomatic. She denies any spinning sensation. She does have a history of vertigo. She has no urinary symptoms. I have stopped antibiotics. They may have been contributing to her symptoms. I will continue Midodrine and add Florinef (more content not included)... [facility] 12-17-2023 Note Formatting of this n ote [...] declined further questions. Patient discharged back to [place]. [facility] 12-17-2023 Note Formatting of this n ote might be different from the original. Pt seen by [facility].Caregiver present. Community resources given to pt. Assisted pt to vehicle via WC for DC with family. [facility] 12-17-2023 Miscellaneous Notes AVS printed, reviewed with, and provided to the patient. AVS was updated with last/next medication administration times. IV was removed per order without complication; pressured dressing applied. Patient and daughter Carmen were educated on positioning, medications, and follow up appointments. Both verbalized understanding and declined further questions. Patient discharged back to [place]. Pt seen by [facility].Caregiver present. Community resources given to [...] creatinine 1.17, 12/13 creatinine 1.13 Per H&P: hypotension....DM Per ER provider: 3 to 4 weeks worth of lightheadedness and dizziness symptoms with associated nausea vomiting. Symptoms are triggered and worse with attempting getting up and turning her head. Symptoms decreased with laying flat and still Historical record: 10/02/23 Chronic Kidney disease Please document the corresponding diagnosis reflective of these findings. Please include the present on admission status if applicable. For Example: GAGANDEEP, POA resolved GAGANDEEP on CKD Abnormal creatinine is clinically undetermined Other (please specify) Unable to determine Thank you, Rahel RICHARDSONN, RN Clinical Pastoral Counselor [phone] (cell) After business hours you may contact Lorenza Mathur at [phone] (Weekdays until 10 PM and weekends 8 AM -10 PM) Noted monitoring of potassium Clinical Indicators: Per lab: 12/09 potassium 3.4, 12/10 potassium 2.9 and 3.7 Per progress notes: intractable nausea and vomiting Please document the corresponding diagnosis reflective of these findings. Please include the present on admission status if applicable. For Example: Hypokalemia, POA Low potassium is clinically undetermined Other (please specify) Unable to determine Thank you, Rahel STEWART, RN Clinical Pastoral Counselor [phone] (pxwa) After business hours you may contact Lorenza Mathur at [phone] (Weekdays until 10 PM and weekends 8 [...] and requested orthostatic vitals be done. This GREEN END WORKER got those and the results are lying down 112/69, sitting up 87/56, when standing the patient got dizzy and nauseous and had to lie back down, once lying down, she vomited. Was not able to obtain standing BP. MRI complete, device returned to previous settings. Pt tolerated well. Pt in MRI Dept. Device placed in MRI safe mode, DOO 100, per [facility] remote services. monitor car operator applied. Chart reviewed; MRIs not yet performed. [...] Outcome: Partially Met documented in this encounter [facility] 12-17-2023 Note Formatting of this n ote [...] Goal: Absence of physical injury Outcome: Completed [facility] 12-17-2023 History of Present illness Narrative Care [...] assist Sit to Supine: Stand by assist Shirt Bander: bedrails Skilled Intervention Provided: verbal cues, patient education For: efficient movement Resulting in: improved awareness Transfers Sit to Stand: Minimal assist Shirt Bander: (no AD) Skilled Intervention Provided: verbal cues, [...] Wheelchair - manual, Lift chair ADL Equipment: Freedom Of Information Officer, Long handled shoe horn Additional Objective Details - Home Living: Laundry in basement - daughter and DIL do laundry Prior Level of Function Level of [place] - Transfers/Ambulation/Mobility: Independent with functional transfers, Independent with household ambulation Level of [place] - ADLs: Independent Level of [place] - Homemaking: Independent Driving: Patient drives For [...] this moment and continue assessment into tomorrow. cemetery warden to room to speak with family. Daughter, Carmen would like the doctor to call her [...] will return to her assisted living in [place] and continue her therapy with them. Family will transport patient home at discharge. Nursing to update family when patient is ready for discharge. Care Management services completed at this time. Please reach out with any further needs. 15:03 - Wendie at [facility] updated that patient will be returning today. [...] elevated Sit to Supine: Stand by assist Shirt Bander: bedrails, bed positioning mechanics Skilled Intervention Provided: verbal cues, tactile cues, monitoring patient response with activity, provided step by step instructions, patient education For: UE management, efficient movement, safety during functional tasks Resulting in: improved activity tolerance, improved functional independence, improved performance, improved safety Transfers Sit to Stand: Moderate assist Stand Pivot Transfers: Moderate assist Shirt Bander: wheeled walker Additional Transfer Trial 2: Yes Sit to Stand Trial 2: Moderate assist Stand Pivot Transfers Trial 2: Moderate assist Shirt Bander Trial 2: wheeled walker Skilled Intervention Provided: [...] Wheelchair - manual, Lift chair ADL Equipment: Freedom Of Information Officer, Long handled shoe horn Additional Objective Details - Home Living: Laundry in basement - daughter and DIL do laundry Prior Level of Function Level of [place] - Transfers/Ambulation/Mobility: Independent with functional transfers, Independent with household ambulation Level of [place] - ADLs: Independent Level of [place] - Homemaking: Independent Driving: Patient drives For [...] Intractable N/V, improving per notes. Height: 5' 6 Current weight: 78.9 kg (174 lb) BMI [...] for Estimating Needs: 1.2gms/kg Barbara Duran RD [facility] PROGRESS [place] Assessment and Plan Kristen Mann is a 73 y.o. female patient of Olivier Acosta MD with history of anxiety, hypotension, diabetes presented to [facility] on 12/10/2023 with reccurent UTI, imbalance . Possible hydrocephalus Commensurate ventricular system enlargement. Noted on ct here today as above Will get MRI I reviewed CT from outside hospital with patient and 11/22/2023 dated reports suggests hydrocephalus Will consult NSG Syptoms have been going for 1 month - promptin [place] [facility] Symptoms are classic with gait, uti and [...] hospitalization due to: Neurosurgical evaluation Discharge Location: [facility] Quality Measures DVT Prophylaxis: lovenox Zimmerman Catheter: [...] (36.4 C) (Oral) Resp 16 Ht 5' 6 Wt 78.9 kg (174 lb) SpO2 94% [...] role. Patient states she currently lives at [facility] in [place] d/t dizziness upon getting up. Patient states it has been going on for some time now. Patient has a home in [place] and she plans to return there when [...] from home, alone. [facility] Patient there d/t nausea with getting up. Patient will return home after her stay is up with [facility]. Assessment and Background Information: [facility] [place] Assessment and Plan Kristen Mann is a 73 y.o. female patient of Olivier Acosta MD with history of anxiety, hypotension, diabetes presented to [facility] on 12/10/2023 with reccurent UTI, imbalance . Possible hydrocephalus Commensurate ventricular system enlargement. Noted on ct here today as above Will get MRI I reviewed CT from outside hospital with patient and 11/22/2023 dated reports suggests hydrocephalus Will consult NSG Syptoms have been going for 1 month - promptin [place] [facility] Symptoms are classic with gait, uti and [...] hospitalization due to: Neurosurgical evaluation Discharge Location: [facility] Quality Measures DVT Prophylaxis: lovenox Zimmerman Catheter: [...] (36.8 C) (Oral) Resp 16 Ht 5' 6 Wt 78.9 kg (174 lb) SpO2 96% [...] has no cervical or thoracic pain. 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 12/01/23 Yes Samy Feng MD acetaminophen (TYLENOL ER) 650 MG CR tablet Take 1 (one) tablet (650 mg total) by mouth every 4 (four) hours as needed for pain or fever . Samy Feng MD BD AutoShield Duo Pen Needle 30 gauge x 11/19 Ndle 05/29/23 Samy Feng MD bisacodyL (DULCOLAX) [...] 3 (three) times a day . 06/18/23 Day, Callie Veras MD midodrine (PROAMATINE) 5 MG [...] the rectum daily as needed Reasons: constipation. Provider, MD Samy venlafaxine (EFFEXOR-XR) 150 MG 24 hr capsule Take 1 (one) capsule (150 mg total) by mouth daily . Provider, MD Samy vibegron (Gemtesa) 75 mg Tab Take 1 (one) tablet (75 mg total) by mouth daily . Provider, Historical, Hospital medications enoxaparin (LOVENOX) injection 40 mg [...] (36.8 C) (Oral) Resp 16 Ht 5' 6 Wt 78.9 kg (174 lb) SpO2 96% [...] changes. Brooklyn Lynn MD 2:08 PM 12/14/23 [facility] [place] [place] Assessment and Plan Kristen Mann is a 73 y.o. female patient of Olivier Acosta MD with history of anxiety, hypotension, diabetes presented to [facility] on 12/10/2023 with reccurent UTI, imbalance . Possible hydrocephalus Commensurate ventricular system enlargement. Noted on ct here today as above Will get MRI I reviewed CT from outside hospital with patient and 11/22/2023 dated reports suggests hydrocephalus Will consult NSG Syptoms have been going for 1 month - promptin [place] [facility] Symptoms are classic with gait, uti and [...] hospitalization due to: Neurosurgical evaluation Discharge Location: [facility] Quality Measures DVT Prophylaxis: lovenox Zimmerman Catheter: [...] (36.8 C) (Oral) Resp 16 Ht 5' 6 Wt 78.9 kg (174 lb) SpO2 95% [...] normal coloration Psych: normal mood and affect [facility] PROGRESS [place] Assessment and Plan Kristen Mann is a 73 y.o. female patient of Olivier Acosta MD with history of anxiety, hypotension, diabetes presented to [facility] on 12/10/2023 with reccurent UTI, imbalance . Possible hydrocephalus Commensurate ventricular system enlargement. Noted on ct here today as above Will get MRI I reviewed CT from outside hospital with patient and 11/22/2023 dated reports suggests hydrocephalus Will consult NSG Syptoms have been going for 1 month - prompt[place] [facility] Symptoms are classic with gait, uti and [...] hospitalization due to: Neurosurgical evaluation Discharge Location: [facility] Quality Measures DVT Prophylaxis: lovenox Zimmerman Catheter: [...] (36.6 C) (Oral) Resp 16 Ht 5' 6 Wt 78.9 kg (174 lb) SpO2 92% [...] normal coloration Psych: normal mood and affect [place] [facility] Inpatient Progress Note DATE OF SERVICE: 12/12/2023 ATTENDING PHYSICIAN: Vipul Guerrero DO PHYSICAL EXAMINATION: Motor strength: Motor Deltoid Biceps Triceos Wrist Extensors Wrist Flexors Interosseous General Gas Pump Attendant Right 5 5 5 5 5 5 [...] teams. Vipul Guerrero DO 12/12/2023 9:58 AM [facility] [place]GRESS [place] Assessment and Plan Kristen Mann is a 73 y.o. female patient of Olivier Acosta MD with history of anxiety, hypotension, diabetes presented to [facility] on 12/10/2023 with reccurent UTI, imbalance . Possible hydrocephalus Commensurate ventricular system enlargement. Noted on ct here today as above Will get MRI I reviewed CT from outside hospital with patient and 11/22/2023 dated reports suggests hydrocephalus Will consult NSG Syptoms have been going for 1 month - promptin [place] [facility] Symptoms are classic with gait, uti and [...] hospitalization due to: Neurosurgical evaluation Discharge Location: [facility] Quality Measures DVT Prophylaxis: lovenox Zimmerman Catheter: [...] (36.8 C) (Oral) Resp 17 Ht 5' 6 Wt 78.9 kg (174 lb) SpO2 94% [...] Lead Revision; Surgeon: Radha Hubbard DO; Location: [facility]; Service: Cardiovascular EYE SURGERY HYSTERECTOMY KYPHOPLASTY N/A 07/08/2023 Procedure: KYPHOPLASTY; Surgeon: Brooklyn Lynn MD; Location: Main OR; Service: Neurological Height: 5' 6 Current weight: 78.9 kg (174 lb) BMI [...] No Nutrition Related Allergies noted Cultural or Evangelical Dietary Needs :No Cultural or Evangelical Dietary needs noted Patient/family comments: Pt reports for 1 month, every time her feet hit the floor she threw up, so would throw up [...] Antonietta Griffin RD documented in this encounter [facility] 12-16-2023 Hospital course Narrative [facility] DIS[place]GE SUMMARY -- [facility] Kristen Mann Admitted: 12/10/2023 Discharge Date: 12/16/23 PCP Handoff Recommended Outpatient Testing None Results Pending At Discharge None Clinical Summary Kristen Mann is a 73 y.o. female patient of Olivier Acosta MD with history of anxiety, hypotension, diabetes presented to [facility] on 12/10/2023 with reccurent UTI, imbalance . Possible hydrocephalus Commensurate ventricular system enlargement. Noted on ct here today as above Will get MRI I reviewed CT from outside hospital with patient and 11/22/2023 dated reports suggests hydrocephalus Will consult NSG Syptoms have been going for 1 month - promptin [place] [facility] Symptoms are classic with gait, uti and [...] SNF placement as well as refusing any C. States she will return to her assisted living in [place] and continue her therapy with them Discharge [...] AutoShield Duo Pen Needle 30 gauge x 3/16 Ndle Generic drug: pen needle,diabetic dual safty [...] 12/16/23, 10:55 AM documented in this encounter [facility] 12-15-2023 Note Formatting of this n ote [...] Absence of physical injury Outcome: Partially Met [facility] 12-15-2023 Note Formatting of this n ote [...] with any questions, concerns or clinical updates. 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 [...] Wheelchair - manual, Lift chair ADL Equipment: Freedom Of Information Officer, Long handled shoe horn Additional Objective Details - Home Living: Laundry in basement - daughter and DIL do laundry Prior Level of Function Level of [place] - Transfers/Ambulation/Mobility: Independent with functional transfers, Independent with household ambulation Level of [place] - ADLs: Independent Level of [place] - Homemaking: Independent Driving: Patient drives Past Medical History: Diagnosis Date Asthma Atopy Diabetes (HCC) Eczema GERD (gastroesophageal reflux disease) Granulomatous disease (HCC) Hyperlipidemia Migraine headache Recurrent UTI 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[facility]) Tachycardia Past Surgical History: Procedure Laterality Date [...] Lead Revision; Surgeon: Radha Hubbard DO; Location: [facility]; Service: Cardiovascular EYE SURGERY HYSTERECTOMY KYPHOPLASTY N/A 07/08/2023 Procedure: KYPHOPLASTY; Surgeon: Brooklyn Lynn MD; Location: [facility] Main OR; Service: Neurological For complete objective [...] Balance - Static: Minimal assist, Moderate assist Shirt Bander - Standing Static: wheeled walker Bed Mobility Rolling: Stand by assist Supine to Sit: Minimal assist, Head of bed elevated Sit to Supine: Stand by assist Shirt Bander: bedrails Transfers Sit to Stand: Minimal assist, Moderate assist Shirt Bander: wheeled walker Gait/Locomotion Gait Assistance: (Unable to [...] Wheelchair - manual, Lift chair ADL Equipment: Freedom Of Information Officer, Long handled shoe horn Additional Objective Details - Home Living: Laundry in basement - daughter and DIL do laundry Prior Level of Function Level of [place] - Transfers/Ambulation/Mobility: Independent with functional transfers, Independent with household ambulation, Independent with community ambulation Subjective Impression - Prior Function: Patient uses rollator for gait. Per chart patient lives in [facility] PH[facility]ICAL THERAPY TREATMENT NOTE Total Treatment Time [...] Lead Revision; Surgeon: Radha Hubbard DO; Location: [facility]; Service: Cardiovascular EYE SURGERY HYSTERECTOMY [...] tablet 25 mg 25 mg Oral Q6H VICTORINA Mahamed Grissom DO midodrine (PROAMATINE) tablet 5 [...] flush 5 mL 5 mL Intravenous Q8H [facility] Calvin Baker MD 5 mL at 12/11/23 [...] (36.8 C) (Oral) Resp 17 Ht 5' 6 Wt 78.9 kg (174 lb) SpO2 94% [...] Triceos Wrist Extensors Wrist Flexors Interosseous General Gas Pump Attendant Right 5 5 5 5 5 5 [...] Guerrero DO 12/11/2023 documented in this encounter [facility] 12-15-2023 Consult note Formatting of th is [...] patient's family / caregiver 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 During the assessment, minimal to moderate modification of task was required and several treatment options were identified in the plan of care. This consultation required expanded review of the medical and therapy history. Activity Tolerance Activity Tolerance: Tolerates less than 10 min activity with changes in vital signs Therapy Precautions Orthotic Devices: No Weight Bearing Status: WF General Rehab Precautions: Fall risk Cognition Overall Cognitive Status: Within Functional Limits Arousal/Alertness: Appropriate responses to stimuli Orientation Level: Oriented X4 Executive functioning: Insight Safety Judgment: Decreased awareness of need for assistance, Decreased awareness of need for safety Problem Solving: Assistance required to identify errors made, Assistance required to generate solutions, Assistance required to implement solutions Attention: Attends to quiet environment Hearing Status: [facility] Social Interaction: [facility] ADL Feeding: Modified independent Upper Body Dressing: [...] Wheelchair - manual, Lift chair ADL Equipment: Freedom Of Information Officer, Long handled shoe horn Additional Objective Details - Home Living: Laundry in basement - daughter and DIL do laundry Prior Level of Function Level of [place] - Transfers/Ambulation/Mobility: Independent with functional transfers, Independent with household ambulation Level of [place] - ADLs: Independent Level of [place] - Homemaking: Independent Driving: Patient drives Past [...] Lead Revision; Surgeon: Radha Hubbard DO; Location: [facility]; Service: Cardiovascular EYE SURGERY HYSTERECTOMY [...] completion of Occupational Therapy Plan of Care. [facility] 12-15-2023 Consult note Formatting of th is [...] Balance - Static: Minimal assist, Moderate assist Shirt Bander - Standing Static: wheeled walker Bed Mobility Rolling: Stand by assist Supine to Sit: Minimal assist, Head of bed elevated Sit to Supine: Stand by assist Shirt Bander: bedrails Transfers Sit to Stand: Minimal assist, Moderate assist Shirt Bander: wheeled walker Gait/Locomotion Gait Assistance: (Unable to [...] Wheelchair - manual, Lift chair ADL Equipment: Freedom Of Information Officer, Long handled shoe horn Additional Objective Details - Home Living: Laundry in basement - daughter and DIL do laundry Prior Level of Function Level of [place] - Transfers/Ambulation/Mobility: Independent with functional transfers, Independent with household ambulation, Independent with community ambulation Subjective Impression - Prior Function: Patient uses rollator for gait. Per chart patient lives in [facility] PHYSICAL THERAPY TREATMENT NOTE Total Treatment Time [...] Medical History: Diagnosis Date Asthma Atopy Diabetes ([facility]) Eczema GERD (gastroesophageal reflux disease) Granulomatous disease (HCC) Hyperlipidemia Migraine headache Recurrent UTI 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[facility]) Tachycardia Past Surgical History: Procedure Laterality Date [...] Lead Revision; Surgeon: Radha Hubbard DO; Location: [facility]; Service: Cardiovascular EYE SURGERY HYSTERECTOMY [...] hospital or completion of Physical Therapy Plan. [facility] 12-15-2023 Note Formatting of this n [...] Absence of physical injury Outcome: Partially Met [facility] 12-14-2023 Note Formatting of this n ote might be different from the original. Noted monitoring of creatinine. Clinical Indicators: Per lab: 12/09 creatinine 1.47, 12/10 creatinine 1.17, 12/13 creatinine 1.13 Per H&P: hypotension....DM Per ER provider: 3 to 4 weeks worth of lightheadedness and dizziness symptoms with associated nausea vomiting. Symptoms are triggered and worse with attempting getting up and turning her head. Symptoms decreased with laying flat and still Historical record: 10/02/23 Chronic Kidney disease Please document the corresponding diagnosis reflective of these findings. Please include the present on admission status if applicable. For Example: GAGANDEEP, POA resolved GAGANDEEP on CKD Abnormal creatinine is clinically undetermined Other (please specify) Unable to determine Thank you, Rahel RICHARDSONN, RN Clinical Pastoral Counselor [phone] (cell) After business hours you may contact Lorenza Clifford at [phone] (Weekdays until 10 PM and weekends 8 AM -10 PM) [facility] 12-14-2023 Note Formatting of this n ote might be different from the original. Noted monitoring of potassium Clinical Indicators: Per lab: 12/09 potassium 3.4, / potassium 2.9 and 3.7 Per progress notes: intractable nausea and vomiting Please document the corresponding diagnosis reflective of these findings. Please include the present on admission status if applicable. For Example: Hypokalemia, POA Low potassium is clinically undetermined Other (please specify) Unable to determine Thank you, Rahel RICHARDSONN, RN Clinical Pastoral Counselor [phone] (cell) After business hours you may contact Lorenza Mathur at [phone] (Weekdays until 10 PM and weekends 8 AM -10 PM) [facility] 12-14-2023 Note Formatting of this n ote [...] Absence of physical injury Outcome: Partially Met [facility] 12-14-2023 Note Formatting of this n ote might be different from the original. Dr Lynn rounded on this patient and requested orthostatic vitals be done. This GREEN END WORKER got those and the results are lying down 112/69, sitting up 87/56, when standing the patient got dizzy and nauseous and had to lie back down, once lying down, she vomited. Was not able to obtain standing BP. [facility] 12-14-2023 Note Formatting of this n ote might be different from the original. MRI complete, device returned to previous settings. Pt tolerated well. [facility] 12-14-2023 Note Formatting of this n ote might be different from the original. Pt in MRI Dept. Device placed in MRI safe mode, DOO 100, per [facility] remote services. monitor car operator applied. [facility] 12-14-2023 Note Formatting of this n ote might be different from the original. Chart reviewed; MRIs not yet performed. Will assess after the MRIs. Brooklyn Lynn MD [facility] 12-14-2023 Note Formatting of this n ote might be different from the original. OCCUPATIONAL THERAPY VISIT VARIANCE NOTE Attempted to see patient at this time, but unable secondary to: Refused (states nauseated and not feeling well). Will follow up as appropriate. [facility] 12-14-2023 Note Formatting of this n ote might be different from the original. PHYSICAL THERAPY VISIT VARIANCE NOTE Attempted to see patient at this time, but unable secondary to: Refused (Patient declined d/t not feeling well). Will follow up as appropriate. [facility] 12-14-2023 Note Formatting of this n ote might be different from the original. PSA walked pt to bathroom. Pt became dizzy and nauseous. Pt started dry heaving. BP 97/51. Pt returned to bed. Pt continues to dry heave. [facility] 12-13-2023 Note Formatting of this n ote [...] Absence of physical injury Outcome: Partially Met [facility] 12-13-2023 Note Formatting of this n ote might be different from the original. PHYSICAL THERAPY VISIT VARIANCE NOTE Attempted to see patient at this time, but unable secondary to: pt refused all mobility this date despite encouragement, reports she will throw up if she sits up or mobilizes. Nursing notified, will follow up as appropriate. [facility] 12-13-2023 Note Formatting of this n ote might be different from the original. Received call from device clinic at [phone] asking for emergent MRI form. Signed faxed [facility] 12-13-2023 Note Formatting of this n ote [...] Absence of physical injury Outcome: Partially Met [facility] 12-12-2023 Note Formatting of this n [...] lumbar imaging. Will follow up as appropriate. T [facility] 12-12-2023 Note Formatting of this n ote might be different from the original. Patient able to transfer from bed to recliner with fww with 1 person assist. Patient denies nausea or dizziness and tolerated well. T [facility] 12-12-2023 Note Formatting of this n ote [...] Absence of physical injury Outcome: Partially Met [facility] 12-11-2023 Consult note Associated Order (s): IP [...] tablet 25 mg 25 mg Oral Q6H Mahamed Ellis DO midodrine (PROAMATINE) tablet 5 mg 5 [...] chloride 0.9% (NS) 125 mL/hr Intravenous Continuous Grissom Mahamed Hernández, DO 125 mL/hr at 12/11/23 0846 125 [...] (36.8 C) (Oral) Resp 17 Ht 5' 6 Wt 78.9 kg (174 lb) SpO2 94% [...] Triceos Wrist Extensors Wrist Flexors Interosseous General Gas Pump Attendant Right 5 5 5 5 5 5 [...] plan of care Vipul Guerrero DO 12/11/2023 [facility] 12-10-2023 Note Formatting of this n ote [...] level of psychosocial functioning Outcome: Partially Met [facility] 04-05-2024 Note Formatting of this n ote might [...] Goal: Knowledge of Enviroment Outcome: Partially Met [facility] 12-10-2023 History and physical note [facility] [place] AND [place]YSICAL -- [facility] Patient Name: Kristen Mann : 1950 MR #: [id number] Admit Date: 12/10/2023 Physicians: Olivier Acosta MD (Family); No ref. provider found (Referring) Kristen Mann is a 73 y.o. female patient of Olivier Acosta MD with history of anxiety, hypotension, diabetes presented to [facility] on 12/10/2023 with reccurent UTI, imbalance . Possible hydrocephalus Commensurate ventricular system enlargement. Noted on ct here today as above Will get MRI I reviewed CT from outside hospital with patient and 11/22/2023 dated reports suggests hydrocephalus Will consult NSG Syptoms have been going for 1 month - promptin [place] [facility] Symptoms are classic with gait, uti and [...] prompted her to be [place] into a [place] [facility]. She been treated for UTIs in [...] Lead Revision; Surgeon: Radha Hubbard DO; Location: [facility]; Service: Cardiovascular EYE SURGERY HYSTERECTOMY [...] (36.6 C) (Oral) Resp 17 Ht 5' 6 Wt 78.9 kg (174 lb) SpO2 92% [...] normal coloration Psych: normal mood and affect [facility] 12-10-2023 History and physical note [facility] AND PHYSICAL -- [facility] Patient Name: Kristen Mann : 1950 MR #: [id number] Admit Date: 12/10/2023 Physicians: Olivier Acosta MD (Family); No ref. provider found (Referring) Kristen Mann is a 73 y.o. female patient of Olivier Acosta MD with history of anxiety, hypotension, diabetes presented to [facility] on 12/10/2023 with reccurent UTI, imbalance . Possible hydrocephalus Commensurate ventricular system enlargement. Noted on ct here today as above Will get MRI I reviewed CT from outside hospital with patient and 11/22/2023 dated reports suggests hydrocephalus Will consult NSG Syptoms have been going for 1 month - promptin [place] [facility] [place] [facility] Symptoms are classic with gait, uti and [...] prompted her to be [place] into a [place] [facility]. She been treated for UTIs in [...] Lead Revision; Surgeon: Radha Hubbard DO; Location: [facility]; Service: Cardiovascular EYE SURGERY HYSTERECTOMY [...] (36.6 C) (Oral) Resp 17 Ht 5' 6 Wt 78.9 kg (174 lb) SpO2 92% [...] mood and affect documented in this encounter [facility] 12-10-2023 Emergency department Note REPORT CALLED AND AWAITING RETURN CALL. [facility] 12-10-2023 Emergency department Note REPORT CALLED AND [...] denies further needs. Call light within reach. [facility] ATTENDING NOTE: NAME: Kristen Mann CSN: [id number] 73 y.o. PCP: Olivier Acosta MD History: [...] headache Recurrent UTI 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[facility]) Tachycardia PMSx: Past Surgical History: Procedure Laterality [...] Lead Revision; Surgeon: Radha Hubbard DO; Location: [facility]; Service: Cardiovascular EYE SURGERY HYSTERECTOMY [...] AutoShield Duo Pen Needle 30 gauge x 3/16 Ndle bisacodyL (DULCOLAX) 10 mg suppository Insert [...] Oral (!) 101 -- 96 % 5' 6 78.9 kg (174 lb) 12/10/23 1331 -- [...] All other components within normal limits Narrative: [facility] Services has implemented the eGFR calculation [...] Procedure Abnormality Status --------- ------ CBC Auto Differential[[id number]] Abnormal Final result Please view results for [...] 3 to 4 weeks. Patient with abnormal [id number] on the left side. Should this be [...] Urbano Reis MD, MD ED Attending Physician [facility] Urbano Reis MD 12/10/23 7716 Pt into ED from [facility]. Pt was supposed to got to neurology appt and was unable to go d/t not feeling well. This RN noted emesis to her shirt pt states she feels nauseated and has been vomiting. Bed: 17 Expected date: Expected time: Means of arrival: Comments: Arlene documented in this encounter [facility] 12-10-2023 Emergency department Note Hourly rounding assessment completed on the patient. [] Patient updated on plan of care [x] All comfort needs addressed [x] Patient updated on duration of visit All questions answered, patient denies further needs. Call light within reach. [facility] 12-10-2023 Emergency department Note Hourly rounding assessment completed on the patient. [] Patient updated on plan of care [x] All comfort needs addressed [x] Patient updated on duration of visit All questions answered, patient denies further needs. Call light within reach. [facility] 12-10-2023 Physician Emergency department Note [facility] ATTENDING NOTE: NAME: Kristen Mann CSN: [id number] 73 y.o. PCP: Olivier Acosta MD History: [...] Lead Revision; Surgeon: Radha Hubbard DO; Location: [facility]; Service: Cardiovascular EYE SURGERY HYSTERECTOMY [...] AutoShield Duo Pen Needle 30 gauge x 3/16 Ndle bisacodyL (DULCOLAX) 10 mg suppository Insert [...] Oral (!) 101 -- 96 % 5' 6 78.9 kg (174 lb) 12/10/23 1331 -- [...] All other components within normal limits Narrative: [facility] Services has implemented the eGFR calculation [...] Procedure Abnormality Status --------- ------ CBC Auto Differential[[id number]] Abnormal Final result Please view results for [...] 3 to 4 weeks. Patient with abnormal [id number] on the left side. Should this be [...] Urbano Reis MD, MD ED Attending Physician [facility] Urbano Reis MD 12/10/23 1620 [facility] 12-10-2023 Emergency department Triage note Pt into ED from [facility]. Pt was supposed to got to neurology appt and was unable to go d/t not feeling well. This RN noted emesis to her shirt pt states she feels nauseated and has been vomiting. [facility] 12-10-2023 Emergency department Note Bed: 17 Expected date: Expected time: Means of arrival: Comments: Arlene [facility] 10-25-2023 History of Present illness Narrative [facility] [address] [facility] [address] [facility] [id number] Kristen Mann returns to the office today [...] AutoShield Duo Pen Needle 30 gauge x 11/19 Ndle, , Disp: , Rfl: cholecalciferol, vitamin [...] Lead Revision; Surgeon: Radha Hubbard DO; Location: [facility]; Service: Cardiovascular EYE SURGERY HYSTERECTOMY [...] back as needed. documented in this encounter [facility] 08-17-2023 History of Present illness Narrative [facility] [address] [place] [id number] Follow Up for Kristen Mann : 1950 [...] questions or concerns. Sincerely, Poornima Fernandez CNP [facility] Chief Complaint Patient presents with Post-op [...] her back pain is decreased to a dull ache. No numbness or tingling of the lower [...] Stimulant [address] Hinton in [place] for pain management Exam: Alert and oriented [...] or erythema present. documented in this encounter [facility] 08-10-2023 Instructions Leila Ferrell RN - 08/10/2023 [...] having your test. If you are taking [id number] medications, such as cold tablets or pain [...] within 24 hours. documented in this encounter [facility] 08-10-2023 History of Present illness Narrative [facility] Follow-up Heart & Vascular [facility] 08/10/2023 Radha Hubbard DO [address] [facility] [address] Patient: Kristen Mann Date of : 1950 (73 y.o.) Referring Provider: Olivier Acosta MD PCP: Olivier Acosta MD Assessment & Plan Assessment: Chest discomfort AV block [place] [employer] dual chamber PPM RV lead revision 05/2022 with improvement in chest pain Hypokalemia Orthostatic Hypotension/Syncope UTI DM GERD Stroke Device Interrogation: Est. Battery/Charge Time: 8 yrs Magnet Rate: 100 ppm Presenting EGM: /VS @ 98 bpm Underlying Rhythm: SR @ 99 bpm Sensing, Impedances, Thresholds: STABLE AP: <1% RVP: <1% AFib [place]: <1% Plan: Chest discomfort Recommend [facility] near [place]. Low suspisicon for angina but at this [...] with any questions. Radha Hubbard DO Electrophysiology [facility] A total of 35 time was spent reviewing the patient encounter, documentation, reviewing the chart. To expedite correspondence this note was generated by [employer] voice recognition software. Some grammatical or spelling [...] due to increased pressures noted by Dr. Ramirez. Today she is concerned about some worsening [...] Final Result by Interface, Lab Results In [place] Yunioris (07/08/2023 1257) Echocardiogram limited Final Result by [...] AUTOSHIELD DUO PEN NEEDLE 30 GAUGE X 3/16 NDLE BUPRENORPHINE (BUTRANS) 15 MCG/HOUR TRANSDERMAL PATCH [...] Cuff Size: Adult) Pulse 97 Ht 5' 6 Wt 83 kg (183 lb) BMI 29.54 kg/m Lab Results Component Value Date CHOL 227 (H) 02/09/2018 LDLCALC 135 (H) 02/09/2018 TRIG 194 (H) 02/09/2018 HDL 53 02/09/2018 Creatinine clearance cannot be calculated (Patient's most recent lab result is older than the maximum 14 days allowed.) documented in this encounter [facility] 07-19-2023 History of Present illness Narrative [facility] Neurosurgery [address] [place] [address] Follow Up for Kristen Mann : 1950 [...] questions or concerns. Sincerely, Poornima Fernandez CNP [facility] Neurosurgery Chief Complaint Patient presents with Post-op [...] her back pain is decreased to a dull ache. No numbness or tingling of the lower extremities. Sensation is intact. Allergies and medication list were reviewed with the patient. OARRS/NARxCHECK Report Received and Assessed: 07/19/2023 Date controlled substance agreement signed: No data found Date of last drug screen: No data found Functional Assessment: Narcotic 371 Sedative [address] Hinton in [place] for pain management Exam: In wheelchair for [...] or erythema present. documented in this encounter [facility] 06-17-2023 Telephone encounter Note Pt requested medication go to different pharmacy. [facility] 06-17-2023 Miscellaneous Notes Pt requested medication go to different pharmacy. documented in this encounter [facility] 05-28-2023 History of Present illness Narrative Neurosurgery Clinic Consult Neurosurgery [facility] 05/28/2023 Brooklyn Lynn MD [address] [place] [address] OFFICE [facility] [address] Patient: Kristen Mann Date of : 1950 [...] A total of 47 minutes were spent ihca-[id number] with the patient during this encounter and [...] in December. 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 Review of Systems: [...] Past Medical History: Diagnosis Date Atopy Diabetes ([facility]) Eczema GERD (gastroesophageal reflux disease) Granulomatous disease ([facility]) Migraine headache Recurrent UTI 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[facility]) OBJECTIVE: Physical Examination: BP (!) 148/76 Pulse [...] 5/5 tri, 5/5 we, 5/5 wf, 5/5 sales and distribution clerk/int LUE: 5/5 delt, 5/5 bi, 5/5 tri, 5/5 we, 5/5 wf, 5/5 sales and distribution clerk/int Motor exam in LE limited by pain [...] Thoracic and Lumbar Spine dated today from [facility] showed stable L1 and L3 compression deformities and L4-5 spondylolisthesis at L4-5. No spinal instability. documented in this encounter [facility] 05-04-2023 History of Present illness Narrative Associated [...] headache Recurrent UTI 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[facility]) Tachycardia IMAGING Notes: none new today. Reviewed from last visit. IMPRESSION And PLAN: Cortisone injection today. Will follow up in 3 months if effective. Call if no improvement in 10 days. 1. Primary osteoarthritis of right knee LG Jt Injection/Arthrocentesis: R knee Performed by: Eliecer Hill CNP Authorized by: Eliecer Hill CNP CPT 18097 - Large Joint Arthrocentesis: Consent given by: [...] Eliecer Hill CNP documented in this encounter [facility] 03-23-2023 Telephone encounter Note ----- Message from Callie Ramirez MD sent at 03/23/2023 10:56 AM EDT ----- Cholesterol is still too high even with Zetia, would she be willing to do 5 mg Crestor twice weekly? [facility] 03-23-2023 Miscellaneous Notes ----- Message from Callie Ramirez MD sent at 03/23/2023 10:56 AM EDT ----- Cholesterol is still too high even with Zetia, would she be willing to do 5 mg Crestor twice weekly? documented in this encounter [facility] 03-23-2023 Instructions Callie Ramirez MD - 03/23/2023 8:21 AM EDT Images from the original note were not included. How to Contact your Care Team: Provider: Dr. Callie Ramirez MD Clinic Nurse: Maggie Faith, VIKA REFILLS: When in need for refills please call your care team or the office at [phone]. Please include medication name, pharmacy name, and [...] the things we talked about... Water aerobics [place] referral Try ibuprofen - and voltaren Midodrine cut down to 2.5mg Start diltizem 120mg documented in this encounter [facility] 03-23-2023 History of Present illness Narrative General Cardiology Returning Patient Clinic Visit [facility], Heart & Vascular 03/23/2023 Callie Ramirez MD [address] [facility] [address] [facility], physician's office [...] in nature, she follows with electrophysiology in [place], and has started on midodrine with good [...] any surgical options. She is following with [place] for her pacemaker, but she will have pacemaker checks with us in [place]. If patient is following with , she does not necessarily need general cardiology [...] 1 year (around 03/23/2024). Callie Ramirez MD, [facility] Non-Invasive Cardiology [facility] P:[phone] F:[phone] History of Present Illness: Kristen Mann is a 73 y.o. woman with a past medical history of atrial tachycardia, AV block status post pacemaker, orthostatic hypotension with recent fall who presents today to establish care. Previously following with Dr. Campos, following with [place] electrophysiology. Her biggest complaints today are her lower back pain, and from a cardiovascular perspective she denies any complaints of palpitations dizziness or lightheadedness. [facility] she has not had any episodes of [...] in February she wanted to go to [place] to get this addressed. She was admitted to [place] for RV lead revision in May. That was done on May 08. Medical history is otherwise notable for type 2 diabetes, history of previous stroke. She saw EP in [place] for follow-up in August. Noted on her [...] Lead Revision; Surgeon: Radha Hubbard DO; Location: [facility] EP [facility]; Service: Cardiovascular EYE SURGERY HYSTERECTOMY [...] NO EKG per Dr. Ramirez Ht 5' 6.5 Wt 82 kg (180 lb 12.8 oz) [...] Cholesterol: 253 mg/dL documented in this encounter [facility] 10-13-2022 History of Present illness Narrative [facility] NOTE NAME: TORO MANN NO.: [id number] DATE OF SERVICE: 10/13/2022 Taran [facility] DATE OF : 1950 NEW PATIENT HISTORY [...] have possible autonomic dysfunction related to her prison diabetes. She was started on Florinef as [...] therapy. DICTATED BY: MD KELIN Castañeda/Christin JOB# [id number] cc:DR Chirinos of [place] documented in this encounter [facility] 10-12-2022 Discharge summary Note Date/Time October 12, 2022 12:23pm [facility] Medical Records Department [address] [place] [address] Transfer to Extended Care MR#: [id number] Acct: [id number] Name: KRISTEN MANN Rep #:[id number] : 1950 72 From: Fozia Cervantes DO PCP: Dr. Olivier Acosta MD Status:A DM IN Certification of patient admission REQUIRED AT TIME OF ADMISSION. I CERTIFY THAT POST-HOSPITAL ECF SERVICES ARE REQUIRED TO BE GIVEN ON AN IN-PATIENT BASIS BECAUSE OF THE ABOVE NAMED PATIENT'S NEED FOR [facility] CARE ON A CONTINUING BASIS FOR THE CONDITION(S) FOR WHICH HE/SHE WAS RECEIVING IN-PATIENT HOSPITAL SERVICES PRIOR TO HIS/HER TRANSFER TO THE ECF. 10/12/22 1223<Electronically signed by Fozia Ceravntes DO> Diet Diet Order/Speech Therapy: 10/08/22 16:09 [...] in before D/C Order can be placed): [facility] 10/12/22 1223 <Electronically signed by Fozia Cervantes DO> Cosigner Signature (if applicable): CC: Dr. [place] Fuentes MD; Dr. Emmanuel Hidalgo DO; Dr. Henna Joseph DO; Dr. Olivier Acosta MD ~ [facility] Work Phone: 1(265) 855-342302-06-[address] Cervantes [facility] October 12, 2022 12:21pm Note Date/Time October 12, 2022 1 1:56am [facility] Medical Records Department [address] [place] [address] Discharge Summary 10/12/22 1155 MR#: [id number] Acct: [id number] Name: KRISTEN MANN Rep #:[id number] : 1950 72 From: Fozia Cervantes DO PCP: Dr. Olivier Acosta MD Status:A DM IN [facility] Prov[facility] Date of Admission: 10/09/22 [...] reported to us she was following with [facility] the day after that she did say [...] when she was younger. We initiated KALEB hose thigh-high, started her on Florinef as well [...] Thoracic compression fracture/back pain -Status post kyphoplasty [id number] Hyperlipidemia Hypertension Diabetic retinopathy Diabetic neuropathy GERD [...] Document 10/09/22 12:17 DAVE (Rec: 10/09/22 12:17 [facility] [id number]) Nutrition Malnutrition Evidence of Malnutrition Exists Yes Malnutrition (severe): Acute Illness/Injury Evidenced By Suboptimal Energy Intake ( Severe),Weight Loss (Severe) Clinical Problem Acute Disease or Injury Related Malnutrition Etiology severe related to increased pain and decreased appetite Signs/Symptoms as evidenced by pt meeting <75 % of est nutritional needs and 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 [place] Fuentes MD; Dr. Fozia Cervantes DO; Dr. Olivier Acosta MD; Dr. Joe Delacruz MD~ Signed [facility] Work Phone: 1(137) 190-572902-05-[address] Cervantes [facility] October 11, 2022 3:18pm Note Date/Time October 11, 2022 3 :10pm [facility] Medical Records Department [address] [place] [address] Progress Note - Hospitalist 10/11/22 1508 MR#: [id number] Acct: [id number] Name: KRISTEN MANN Rep #:[id number] : 1950 72 From: Fozia Cervantes DO PCP: Dr. Olivier Acosta MD Status:A DM IN Location: [place] [address] Subjective Subjective Patient reports that she has [...] Intake and Output for Last 24 Hours 10/09/22 10/10/22 10/11/22 23:59 23:59 23:59 Intake Total 2059 2548.75 / 2748.75 620 / 620 Output Total 300 / 300 Balance 2059 2248.75 / 2448.75 620 / 620 Medical Nutrition Assessment Dietitian: Malnutrition Criteria Met Start: 10/09/22 12:17 Freq: Status: Active Protocol: Document 10/09/22 12:17 DAVE (Rec: 10/09/22 12:17 DAVE [id number]) Nutrition Malnutrition Evidence of Malnutrition Exists Yes Malnutrition (severe): Acute Illness/Injury Evidenced By Suboptimal Energy Intake ( Severe),Weight Loss (Severe) Clinical Problem Acute Disease or Injury Related Malnutrition Etiology severe related to increased pain and decreased appetite Signs/Symptoms as evidenced by pt meeting <75 % of est nutritional needs and 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 Cervantes [facility] October 10, 2022 5:14pm Note Date/Time October 10, 2022 5 :04pm [facility] Medical Records Department [address] [facility] [place] [address] Progress Note - Hospitalist 10/10/22 1653 MR#: [id number] Acct: [id number] Name: KRISTEN MANN Rep #:[id number] : 1950 72 From: Fozia Cervantes DO PCP: Dr. Olivier Acosta MD Status:A DM IN Location: [facility]- Subjective Subjective Mrs. Mann is a 72-year-old [...] is not following currently. This was in [place] and she was unable to get there. [...] Intake Total 2180 / 2180 2059 / 2059 2188.75 / 2188.75 Output Total 300 / 300 Balance 2180 / 2180 2059 / 2059 1888.75 / 1888.75 Medical Nutrition Assessment Dietitian: Malnutrition Criteria Met Start: 10/09/22 12:17 Freq: Status: Active Protocol: Document 10/09/22 12:17 SLA (Rec: 10/09/22 12:17 SLA [id number]) Nutrition Malnutrition Evidence of Malnutrition Exists Yes Malnutrition (severe): Acute Illness/Injury Evidenced By Suboptimal Energy Intake ( Severe),Weight Loss (Severe) Clinical Problem Acute Disease or Injury Related Malnutrition Etiology severe related to increased pain and decreased appetite Signs/Symptoms as evidenced by pt meeting <75 % of est nutritional needs and 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 Delacruz for endocrinology follow-up in [place] after discharge Hyperlipidemia -Continue Zetia -Would recommend outpatient lipid profile and initiation of statin as patient isdiabetic and per guidelines should be on a statin Hypertension -Continue metoprolol Diabetic retinopathy -Recommend continued outpatient follow-up GERD -Continue PPI Depression -Continue Effexor DVT prophylaxis -Start subcu enoxaparin CODE STATUS -Full code Charges/Coding Visit Charges Inpatient E&M: 10961 Subs Hosp L2 10/10/22 1714 <Electronically signed by Fozia Cervantes DO> Cosigner Signature (if applicable): CC: ~ Signed [facility] Work Phone: 1(977) 824-259802-03-[address] Joseph [facility] October 09, 2022 5:01pm Note Date/Time October 09, 2022 4 :54pm [facility] Medical Records Department [address] [place] [address] Progress Note - Hospitalist 10/09/22 1650 MR#: [id number] Acct: [id number] Name: KRISTEN MANN Rep #:[id number] : 1950 72 From: Henna Joseph DO PCP: Dr. 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 Problem Altered Nutrient-Related Laboratory Values [...] spine with history of vertebral fracture T12, G42-acuqstbtlfi care, medical course, prognosis, and recovery-patient will be seen by PT and OT during her hospitalization #4 spinal stenosis-continue PT and OT participation in her care #5 type 2 diabetes-blood sugars will be monitored, sliding scale insulin will beused to control blood sugars #6 sick sinus syndrome with insertion of permanent ihvvegqki-whbfvf-rqearxr's pacemaker interrogation today did not show any malignant arrhythmias or significant tachycardia #7 acute debility-patient [facility] she will be reevaluated tomorrow for discharge. #8 chronic kidney disease stage IIIb-secondary to type 2 diabetes-BMP will be monitored as necessary Total clinical time spent by myself addressing the patient's medical issues, reviewing all the data, and collaborating with patient's care team: 37 minutes Charges/Coding Visit Charges Inpatient E&M: 76403 Subs Hosp L2 10/09/22 1701 <Electronically signed by Henna Joseph DO> Cosigner Signature (if applicable): CC: ~ Signed [facility] Work Phone: 1(360) 614-694802-02-2023 History and physical note Author Dr. Hidalgo [facility] October 08, 2022 5:56pm Note Date/Time October 08, 2022 3 :57pm [facility] Medical Records Department [address] [place] [address] H&P Exam - Hospitalist 10/08/22 1549 MR#: [id number] Acct: [id number] Name: KRISTEN MANN Rep #:[id number] : 1950 72 From: Emmanuel Hidalgo DO PCP: Dr. Olivier Acosta MD Status:A DM LIZZIE Location: [place] [address] HPI - General General Date of Admission: [...] but the results of which are unknown. REPLACED BY [facility] Medical History Abnormal CT scan, colon Asthma [...] 72.3 H, Lymph % (Auto) 14.2 L, [place] % (Auto) 8.3, Eos % (Auto) 3.1, [...] Diabetes mellitus type: type 2 Diabetes mellitus custodial insulin use: with chief of internal medicine use Diabetes mellitus complication status: with ophthalmic complications Diabetes mellitus complication detail: with diabetic retinopathy Diabetic retinopathy severity: with unspecified retinopathy severity Diabetes mellitus macular edema: macular edema presence unspecified Laterality: unspecified laterality Qualified Code(s): E11.319 - Type 2 diabetes mellitus with unspecified diabetic retinopathy without macular edema; Z79.4 - nursing home (current) use of insulin PLAN: Type II [...] full code. Charges/Coding Visit Charges Inpatient E&M: 53347 Init Hosp L3 10/08/22 1603 <Electronically signed by Emmanuel Hidalgo DO> Cosigner Signature (if applicable): CC: Dr. Emmanuel Hidalgo DO; Dr. Olivier Acosta MD~ Signed ADDENDUM by Dr. Emmanuel Hidalgo DO on 10/08/22 at 1756 Addendum Orthostatic vital signs were positive. Will given a liter of IV fluids. Recheck orthostats in the morning. Check a.m. cortisol 10/08/22 1756<Electronically signed by Emmanuel Hidalgo DO> Cosigner Signature (if applicable): cc: Dr. Emmanuel Hidalgo DO; Dr. Olivier Acosta MD ~* Signed [facility] Work Phone: 1(848) 130-606502-02-[address] Andersen [facility] October 08, 2022 3:45pm Note Date/Time October 08, 2022 2 :18pm [facility] Medical Records Department [address] [place] [address] Emergency Department Summary 10/08/22 MR#: [id number] Acct: [id number] Name: KRISTEN MANN Rep #:[id number] : 1950 72 From: Paresh Bartholomew PCP: Dr. Olivier Acosta MD Status:A DM LIZZIE Location: [place] [address] HPI History of Present Illness Chief Complaint: Dizziness [...] last to bradycardia. She states is a Daily Aisle. Additional history stating she is followed with [...] or diarrhea. Prior similar symptoms: Yes PFSH REPLACED BY [facility] Medical History Abnormal CT scan, colon Asthma [...] a history of this. Patient has a Daily Aisle device will have this interrogated. Cardiac work-up [...] Hidalgo for admission. 1540: I reviewed the Daily Aisle report noting since September 30, 2022 of [...] 72.3 H Lymph % (Auto) 14.2 L [place] % (Auto) 8.3 Eos % (Auto) 3.1 [...] Signed: Theo Perez MD at 14:48 EST Reading Location ID and State: [facility] / [place] , Service support , Cervical Spine CT 10/08/22 13:43 IMPRESSION: [...] fracture, Syncope Disposition Disposition: Acute Care [facility] What to do if you have Problems For any increased pain, shortness of breath, bleeding, nausea or vomiting, chestpain, or any unexpected problems, contact your Primary Care Provider. Call [facility] ([phone]) or report to the closest Emergency Room. Call 911 if necessary. 10/08/22 1545 <Electronically signed by Paresh Bartholomew> Cosigner Signature (if applicable): CC: Dr. Olivier Acosta MD ~ Signed [facility] Work Phone: 1(840) 367-545601-17-[address] Patton [facility] September 22, 2022 10:32am Note Date/Time September 22, 2022 1 0:28am [facility] Medical Records Department [address] [place] [address] Instructions for Home/Discharge Instructions 09/22/22 1027 MR#: [id number] Acct: [id number] Name: KRISTEN MANN Rep #:[id number] : 1950 72 From: Thee thomas MD [...] MD; Dr. Olivier Acosta MD ~ Signed [facility] Work Phone: 1(493) 778-704601-17-[address] Steele [facility] September 22, 2022 7:47am Note Date/Time September 22, 2022 7 :45am [facility] Medical Records Department [address] [place] [address] Progress Note - Surgery 09/22/22 0743 MR#: [id number] Acct: [id number] Name: KRISTEN MANN Rep #:[id number] : 1950 72 From: Anaid Steele MD PCP: Dr. Olivire Acosta MD Status:A DM IN Location: [address] Subjective Subjective Patient underwent colonoscopy yesterday - [...] 09/19/22 12:38 LO (Rec: 09/19/22 12:38 LO [id number]) Nutrition Malnutrition Evidence of Malnutrition Exists Yes [...] % (Auto) 61.4, Lymph % (Auto) 24.2, [place] % (Auto) 8.9, Eos % (Auto) 3.7, [...] general surgery if any clinical changes 09/22/22 0796 <Electronically signed by Anaid Steele MD> Cosigner Signature (if applicable): CC: ~ Signed [facility] Work Phone: 1(821) 631-769201-16-2023 Procedure [facility] 09-21-2022 Procedure [facility]-16-[address] Patton [facility] September 21, 2022 10:38am Note Date/Time September 21, 2022 1 0:38am [facility] Medical Records Department [address] [place] [address] Progress Note - Hospitalist 09/21/22 103 MR#: [id number] Acct: [id number] Name: KRISTEN MANN Rep #:[id number] : 1950 72 From: Thee thomas MD PCP: Dr. Olivier Acosta MD Status:A DM IN Location: [facility] [id number] Subjective Subjective Do well, no issues overnight [...] 09/19/22 12:38 LO (Rec: 09/19/22 12:38 LO [id number]) Nutrition Malnutrition Evidence of Malnutrition Exists Yes [...] % (Auto) 58.8, Lymph % (Auto) 26.6, [place] % (Auto) 8.0, Eos % (Auto) 5.1 [...] ppx: SCDs Charges/Coding Visit Charges Inpatient E&M: 87361 Subs Hosp L2 09/21/22 1038 <Electronically signed by Thee Patton MD> Cosigner Signature (if applicable): CC: ~ Signed [facility] Work Phone: 1(920) 496-413101-16-[address] Steele [facility] September 21, 2022 7:40am Note Date/Time September 21, 2022 7 :40am [facility] Medical Records Department [address] [place] [address] Progress Note - Surgery 09/21/22 0738 MR#: [id number] Acct: [id number] Name: KRISTEN AMNN Rep #:[id number] : 1950 72 From: Anaid Steele MD PCP: Dr. Olivier Acosta MD Status:A DM IN Location: [facility] TH474-1 Subjective Subjective patient states that pain is [...] 09/20/22 09/21/22 23:59 23:59 23:59 Intake Total 400 / 900 500 / 500 Balance 400 / 900 500 / 500 Medical Nutrition Assessment Dietitian: Malnutrition Criteria Met Start: 09/19/22 12:36 Freq: Status: Active Protocol: Document 09/19/22 12:38 LO (Rec: 09/19/22 12:38 LO [id number]) Nutrition Malnutrition Evidence of Malnutrition Exists Yes [...] % (Auto) 58.8, Lymph % (Auto) 26.6, [place] % (Auto) 8.0, Eos % (Auto) 5.1 [...] Cosigner Signature (if applicable): CC: ~ Signed [facility] Work Phone: 1(569) 210-526101-15-2023 Progress note Author Kayode Warren [facility] September 20, 2022 4:30pm Note Date/Time September 20, 2022 4 :29pm [facility] Medical Records Department [address] [place] [address] Progress Note 09/20/22 1625 MR#: [id number] Acct: [id number] Name: KRISTEN MANN Rep #:[id number] : 1950 72 From: Kayode Warren DO PCP: Dr. Olivier Acosta MD Status:A DM IN Location: [place] [address]-1 Subjective Subjective Patient took bowel prep and [...] 09/19/22 12:38 LO (Rec: 09/19/22 12:38 LO [id number]) Nutrition Malnutrition Evidence of Malnutrition Exists Yes [...] % (Auto) 59.5, Lymph % (Auto) 26.1, [place]% (Auto) 9.0, Eos % (Auto) 4.0, Baso [...] colonoscopy tomorrow. Charges/Coding Visit Charges Inpatient E&M: 71509 Subs Hosp L2 09/20/22 1630 <Electronically signed by Kayode Warren DO> Kayode Warren DO Cosigner Signature (if applicable): CC: ~ Signed [facility] Work Phone: 1(998) 716-142101-15-[address] Ellis [facility] September 20, 2022 2:23pm Note Date/Time September 20, 2022 7 :16am [facility] Medical Records Department [address] [place] [address] Progress Note - Hospitalist 09/20/22 0706 MR#: [id number] Acct: [id number] Name: KRISTEN MANN Rep #:[id number] : 1950 72 From: Penny Ellis MD PCP: Dr. Olivier Acosta MD Status:A DM IN Location: MS2 IU440-4 Subjective Subjective Has had multiple bowel movements [...] 09/19/22 12:38 LO (Rec: 09/19/22 12:38 LO [id number]) Nutrition Malnutrition Evidence of Malnutrition Exists Yes [...] % (Auto) 59.5, Lymph % (Auto) 26.1, [place]% (Auto) 9.0, Eos % (Auto) 4.0, Baso [...] Ellis MD Charges/Coding Visit Charges Inpatient E&M: 38258 Subs Hosp L2 09/20/22 1423 <Electronically signed by Penny Ellis MD> Cosigner Signature (if applicable): CC: ~ Signed [facility] Work Phone: 1(360) 577-239601-15-[address] Steele [facility] September 20, 2022 10:38am Note Date/Time September 20, 2022 1 0:38am [facility] Medical Records Department [address] [place] [address] Progress Note - Surgery 09/20/22 1035 MR#: [id number] Acct: [id number] Name: KRISTEN MANN Rep #:[id number] : 1950 72 From: Anaid Steele MD PCP: Dr. Olivier Acosta MD Status:A DM IN Location: [facility] TO514-2 Subjective Subjective patient states that she feels [...] Document 09/19/22 12:38 LO (Rec: 09/19/22 12:38 [id number]) Nutrition Malnutrition Evidence of Malnutrition Exists Yes [...] % (Auto) 59.5, Lymph % (Auto) 26.1, Iberia% (Auto) 9.0, Eos % (Auto) 4.0, Baso [...] Cosigner Signature (if applicable): CC: ~ Signed [facility] Work Phone: 1(309) 185-535201-14-2023 Consult note Author Kayode Warren [facility] September 19, 2022 11:15am Note Date/Time September 19, 2022 1 1:10am [facility] Medical Records Department [address] [place] [address] Consultation - GI 09/19/22 1109 MR#: [id number] Acct: [id number] Name: KRISTEN MANN Rep #:[id number] : 1950 72 From: Kayode Warren DO PCP: Dr. Olivier Acosta MD Status:A DM IN Location: [facility] PY648-1 HPI Consult Data Date of Consult: 09/19/22 [...] colonoscopy and evaluation of a colonic blockage. REPLACED BY [facility] Medical History Abnormal CT scan, colon Asthma [...] % (Auto) 66.6, Lymph % (Auto) 21.7, [place] % (Auto) 7.4, Eos % (Auto) 2.8, [...] her bowels. Charges/Coding Visit Charges Inpatient E&M: 26054 Init Hosp L3 09/19/22 1115 <Electronically signed by Kayode Friend DO> Cosigner Signature (if applicable): CC: Dr. Anaid Steele MD; Dr. Olivier Acosta MD~ Signed [facility] Work Phone: 1([phone]) 361-223201-14-[address] Steele [facility] September 19, 2022 10:36am Note Date/Time September 19, 2022 9 :39am [facility] Medical Records Department [address] [place] [address] Progress Note - Surgery 09/19/22 0938 MR#: [id number] Acct: [id number] Name: KRISTEN MANN Rep #:[id number] : 1950 72 From: Anaid Steele MD PCP: Dr. Olivier Acosta MD Status:A DM IN Location: MS2 WW315-6 Subjective Subjective patient remains unchanged, she states [...] 71.3 H, Lymph % (Auto) 16.2 L, [place] % (Auto) 7.9, Eos % (Auto) 3.0, [...] Sl. Cloudy, Urine pH 7.0, Ur Specific [place] 1.010, Urine Protein 15 H, Urine Glucose [...] % (Auto) 66.6, Lymph % (Auto) 21.7, [place] % (Auto) 7.4, Eos % (Auto) 2.8, [...] neoplasm versus ischemic stricture? will contact Dr. Warren, will defer to his evaluation for consideration of colonoscopy Discussed with patient and she acknowledges above. 09/19/22 1036 <Electronically signed by Anaid Steele MD> Cosigner Signature (if applicable): CC: ~ Signed [facility] Work Phone: 1(425) 372-123401-14-[address] Ellis [facility] September 19, 2022 8:31am Note Date/Time September 19, 2022 8 :31am [facility] Medical Records Department [address] [place] [address] Progress Note - Hospitalist 09/19/22 0825 MR#: [id number] Acct: [id number] Name: KRISTEN MANN Rep #:[id number] : 1950 72 From: Penny Ellis MD PCP: Dr. Olivier Acosta MD Status:A DM IN Location: MS2 QA383-0 Subjective Subjective Pain is similar to yesterday [...] 71.3 H, Lymph % (Auto) 16.2 L, [place] % (Auto) 7.9, Eos % (Auto) 3.0, [...] Sl. Cloudy, Urine pH 7.0, Ur Specific [place] 1.010, Urine Protein 15 H, Urine Glucose [...] % (Auto) 66.6, Lymph % (Auto) 21.7, [place] % (Auto) 7.4, Eos % (Auto) 2.8, [...] Ellis MD Charges/Coding Visit Charges Inpatient E&M: 77528 Subs Hosp L2 09/19/22 0831 <Electronically signed by Penny Ellis MD> Cosigner Signature (if applicable): CC: ~ Signed [facility] Work Phone: 1(684) 347-947801-13-[address] Steele [facility] September 18, 2022 7:20pm Note Date/Time September 18, 2022 5 :46pm [facility] Medical Records Department [facility] [place] [address] Consultation - Surgical 09/18/22 1742 MR#: [id number] Acct: [id number] Name: KRISTEN MANN Rep #:[id number] : 1950 72 From: Anaid Steele MD PCP: Dr. Olivier Acosta MD Status:A DM IN Location: MS2 LK508-4 Assessment & Plan Assessment/Plan (1) Abnormal CT [...] note a long history of chronic constipation. REPLACED BY [facility] Medical History Abnormal CT scan, colon Asthma [...] 71.3 H, Lymph % (Auto) 16.2 L, [place] % (Auto) 7.9, Eos % (Auto) 3.0, [...] Sl. Cloudy, Urine pH 7.0, Ur Specific [place] 1.010, Urine Protein 15 H, Urine Glucose [...] Theo Perez MD at 13:13 EST , 09/18/221919 <Electronically signed by Anaid Steele MD> Cosigner Signature (if applicable): CC: Dr. Anaid Steele MD; Dr. Olivier Acosta MD~ Signed [facility] Work Phone: 1(912) 925-763901-13-[address] Meyers [facility] September 18, 2022 1:53pm Note Date/Time September 18, 2022 9 :32am [facility] Medical Records Department [address] [place] [address] Emergency Department Summary 09/18/22 MR#: [id number] Acct: [id number] Name: KRISTEN MANN Rep #:[id number] : 1950 72 From: Devyn Meyers DO PCP: Dr. Olivier Acosta MD Status:A DM IN Location: [place] [address]-1 HPI HPI - GI History of Present [...] concerned she has an obstruction. No fevers. [facility] Medical History Asthma Carotid stenosis, bilateral Chronic [...] 71.3 H Lymph % (Auto) 16.2 L [place]ber[place] % (Auto) 7.9 Eos % (Auto) 3.0 [...] Sl. Cloudy Urine pH 7.0 Ur Specific Cranston 1.010 Urine Protein 15 H Urine Glucose [...] Theo Perez MD at 13:14 EST , Discharge Plan Triage Chief Complaint: Back ED Provider: Devyn Meyers Dx/Rx/DC Orders Primary Care Provider: Olivier Acosta What to do if you have Problems For any increased pain, shortness of breath, bleeding, nausea or vomiting, chestpain, or any unexpected problems, contact your Primary Care Provider. Call [facility] ([phone]) or report to the closest Emergency Room. Call 911 if necessary. 09/18/22 1353 <Electronically signed by Devyn Meyers DO> Cosigner Signature (if applicable): CC: Dr. Olivier Acosta MD ~ Signed [facility] Work Phone: 1(655) 315-924701-13-2023 History and physical note Author Dr. Ellis [facility] September 18, 2022 1:51pm Note Date/Time September 18, 2022 1 :45pm [facility] Medical Records Department [address] [place] [address] H&P Exam - Hospitalist 09/18/22 1336 MR#: [id number] Acct: [id number] Name: RKISTEN MANN Rep #:[id number] : 1950 72 From: Penny Ellis MD PCP: Dr. Olivier Acosta MD Status:A DM IN Location: [facility] XC452-2 HPI - General General Date of Admission: [...] other complaints today aside from slight headache. REPLACED BY [facility] Medical History Asthma Carotid stenosis, bilateral Chronic [...] 71.3 H, Lymph % (Auto) 16.2 L, [place] % (Auto) 7.9, Eos % (Auto) 3.0, [...] Sl. Cloudy, Urine pH 7.0, Ur Specific [place] 1.010, Urine Protein 15 H, Urine Glucose [...] nondistended. Clinical correlation is recommended. Electronically Signed: Teho Perez MD at 11:38 EST , KUB [...] Ellis MD Charges/Coding Visit Charges Inpatient E&M: 10165 Init Hosp L2 09/18/22 1351 <Electronically signed by Penny Ellis MD> Cosigner Signature (if applicable): CC: Dr. Penny Ellis MD; Dr. Olivier Acosta MD~ Signed [facility] Work Phone: 1([phone]) 499-680512-15-2022 Evaluation + Plan note* Assessment & Plan Note - Cecilia Campos MD - 08/20/2022 9:52 AM ESTAssociated Problem(s): Pacemaker Most of the pain she had post pacemaker placement now has resolved since she had a revision. I do not think we need to make any additional changes. She will follow-up in August next year at [facility] for her routine in office checks. I told her we would have her see general cardiology here in [facility], she can then stagger her visits. She knows she can contact us if she does have any symptomatic changes. [id number] Evaluation + Plan note* Assessment & Plan Note - Cecilia Campos MD - 08/20/2022 9:52 AM ESTAssociated Problem(s): Tachycardia She apparently was at her tube coremaker in [place] recently and was having some tachycardia though she was asymptomatic. During her exam today her rhythm was regular. We will continue to monitor for recurrences on her device checks. She knows she can call us if she has any symptomatic issues. Sheis on metoprolol 25 mg daily and potentially this could be advanced if needed. [id number] Miscellaneous Notes* Assessment & Plan Note - Cecilia Campos MD - 08/20/2022 9:52 AM ESTAssociated Problem(s): Pacemaker Most of the pain she had post pacemaker placement now has resolved since she had a revision. I do not think we need to make any additional changes. She will follow-up in August year at [facility] for her routine in office checks. I told her we would have her see general cardiology here in [facility], she can then stagger her visits. She knows she can contact us if she does have any symptomatic changes. * Assessment & Plan Note - Cecilia Campos MD - 08/20/2022 9:52 AM EST Associated Problem(s): Tachycardia She apparently was at her tube coremaker in [place] recently and was having some tachycardia though she was asymptomatic. During her exam today her rhythm was regular. We will continue to monitor for recurrences on her device checks. She knows she can call us if she has any symptomatic issues. Sheis on metoprolol 25 mg daily and potentially this could be advanced if needed. documented in this [id number] History of Present illness Narrative* Cecilia Campos MD - 08/20/2022 9:41 AM EST General Cardiology Clinic Follow-up Heart & Vascular [facility] 08/20/2022 Cecilia Campos MD [address] [place] [address] Medical [facility] [address] Patient: Kristen Mann Date of : 1950 (72 y.o.) PCP: Olivier Acosta MD Assessment & Plan Tachycardia She apparently was at her tube coremaker in [place] recently and was having some tachycardia though [...] will follow-up in August next year at [facility] for her routine in office checks. I told her we would have her see general cardiology here in [facility], she can then stagger her visits. [...] in February she wanted to go to [facility] to get this addressed. She was admitted to [facility] for RV lead revision in May. That was done on May 08. Medical history is otherwise notable for type 2 diabetes, history of previous stroke. She saw EP in [place] for follow-upin August. Noted on her device [...] Cuff Size: Adult) Pulse 91 Ht 5' 5 Wt 87.9 kg (193 lb 12.8 oz) [...] and Affect: Mood normal. documented in this [id number] Instructions* Patient Instructions* Natalia West MA - 08/20/2022 9:32 AM EST You can reach Dr Campos's nurse Juliana Paredes RN, at [phone]. If unable to reach us please leave [...] listed below please call the office at [phone] and ask to speak to the schedulers to make an appointment. *If you made an -appointment prior to leaving the office today disregard this message. To cancel or reschedule your office visit or testing please call [phone]. If you need to cancel it must be 24 hours prior to that appt. Thank you. ....If you were seen in the [place] office today. If any testing was ordered a wafer fabrication technician from [facility] will call you to schedule your testing. If you do not hear from a wafer fabrication technician after a couple of days please call the office at [phone] and ask to speak to a wafer fabrication technician. documented in this [id number] History of Present illness Narrative* Radha Hubbard DO - 08/14/2022 2:25 PM EST Electrophysiology Clinic Follow-up Heart & Vascular [facility] 08/13/2022 Radha Hubbard DO [address] [facility] [address] Patient: Kristen Mann Date of : 1950 (72 y.o.) PCP: Olivier Acosta MD Assessment & Plan 1) AV block/Sinus Node Dysfunction S/P [employer] Dual Chamber pacemaker implantation back in [...] RV lead revision back in May at [facility] with the old RV lead removed due [...] Final Result by Axel Soares MD (10/16/2015 0969) HOME Medications: Patient's Medications New Prescriptions No [...] mouth daily . Physical Examination: Ht 5' 5 Wt 87.2 kg (192 lb 4.8 oz) BMI 32.00 kg/m Lab Results Component Value Date CHOL 227 (H) 02/09/2018 LDLCALC 135 (H) 02/09/2018 TRIG 194 (H) 02/09/2018 HDL 53 02/09/2018 Creatinine clearance cannot be calculated (Patient's most recent lab result is older than the maximum 14 days allowed.) documented in this [id number] Instructions* Patient Instructions* Steffany Sampson RN - 08/13/2022 3:44 PM EST Testing Ordered: none Medication Changes: none Lab Work Ordered: none Referrals: none To schedule your next office visit at [address] [place] [address] please reach out to [phone] and follow the prompts to scheduling. To schedue any outpatient testing (if applicable) simply call [phone] and follow prompts to schedule outpatient testing. Thanks, Steffany Sampson RN [facility], Nurse Senior Planner [phone] documented in this [id number] Miscellaneous Notes* Letter - Mammography Coordinator - 07/14/2022 4:41 PM EST July 14, 2022 PID: [id number] Kristen Mann [address] [place] [address] Dear Ms. Mann, We are pleased to [...] report will be kept on file at [facility] as part of your permanent medical record and are available for your continuing care. Thank you for allowing us to help in meeting your health care needs. Sincerely, Dr. Paredes Interpreting Radiologist [facility] (Normal over 40) documented in this encounter[facility]09-19-2022 History of Present illness Narrative* Eliecer Hill, PRODUCTION CELL LEADER - 05/25/2022 8:15 AM EDTAssociated Order(s): LG [...] CNP Authorized by: Eliecer Hill CNP CPT 00585 - Large Joint Arthrocentesis: Consent given by: [...] complications Eliecer Hill CNP documented in this [id number] History of Present illness Narrative* Angelina Jules RN - 05/19/2022 10:33 AM EDT Images from the original note were not included. Patient Name: Kristen Mann Date: 05/19/22 MR #: [id number] : 1950 Wound Check Assessment Type of Incision Check: Date of Device Implant for RV lead revision Implanting Acid Remover: Dr. Hubbard ([facility]) Following Acid Remover: Dr. Campos Type and Brand of device: [employer] dual chamber Pacemaker Site of incision/device: [...] an office visit in: 3 months at [facility] with DC Remote transmitter education completed : [...] visit in 3 months documented in this [id number] Note* Quick Note - Gisele Dubois CNP - 05/09/2022 12:30 PM EDT Chest x-ray from this AM: FINDINGS: The cardiomediastinal silhouette is unchanged with left chest pacemaker again noted. The lung cheney are aerated. The costophrenic angles are sharp. There is no evidence of pneumothorax. No acute osseous abnormality. Ok for discharge from EP standpoint [id number] Miscellaneous Notes* Quick Note - Gisele Dubois [...] Anticoagulation: N/A Follow-up Appointment: Incision check in [place] with Dr Campos and PPM check in [address] Hubbard in [place]. Electrophysiology Service will sign off. Please re-call with any questions, concerns, or clinical updates. Assessment & Plan Kristen Mann is a 72 y.o. female with a history of heart block, asthma, Type II diabetes, GERD,HLD, migraine, retinal hemorrhage and stroke who presented to [facility] 05/07/2022 with a defective pacemaker lead and syncopal episodes. EP consulted for RV lead revision. Impression: Sick sinus syndrome requiring dual lead PPM 12-15-2021. Continued chest pain and found to have high RV impedances and recommended RV lead reposition at [facility]. Echo: 11-21-2021 EF 61%, no hemodynamically significant [...] discharge. * [facility] - Liane Keys, PT [...] retinal hemorrhage and stroke who presented to [facility] 05/07/2022 with a defective pacemaker lead and syncopal episodes. EP consulted for RV lead revision. Impression: Sick sinus syndrome requiring dual lead PPM 12-15-2021. Continued chest pain and found to have high RV impedances and recommended RV lead reposition at [facility]. Echo: 11-21-2021 EF 61%, no hemodynamically significant [...] axis: normal T Waves: T waves normal DE Interval: 164 QRS Interval: 70 QT Interval: 455 Clinical impression: normal ECG documented in this [id number] Hospital course Narrative* Edward Kearney MD - 05/09/2022 12:00 PM EDT [facility] Kristen Mann Account: [id number] Admitted: 05/07/2022 Discharge Date/Time: 05/09/22 12:59 PM Handoff to PCP Routine hospital follow up Clinical Summary Kristen Mann is a 72 y.o. female with a history of heart block, Type II diabetes, retinal hemorrhage and stroke who presented to [facility] 05/07/2022 with a defective pacemaker lead and syncopal episodes. Patient underwent RV lead revision Chest pain: S/p PPM 12/2021 in [place]. Chest wall pain since then. CT showed [...] Physician(s) Family: Olivier Acosta MD, , Address: [address] [place] [address] Follow Up: Cecilia Campos MD [address] [place], [place] [id number] Follow up Someone will call to schedule an incision check in 7-10 days. Radha Hubbard, [address] [place] [address] [address] [place] [address] Go on 08/13/2022 cardiology follow up 08/13/22. Additional Information: Patient [...] patient's care, including complete radiology reports, [facility] Patient instructions, including activity, were given to the patient/family at discharge. Please seethe After Visit Summary in the medical record for details. Time spent on discharge: > 30 minutes Completed by: Edward Kearney on 05/09/22, 12:59 PM documented in this [id number] Consult note* Candace Cortes OT - 05/09/2022 [...] . 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 [...] Function Receives Help From: Family Level of [place] - Transfers/Ambulation/Mobility: Independent with functional transfers, Independent with household ambulation, Independent with community ambulation Level of [place] - ADLs: Independent Level of [place] - Homemaking: Independent Driving: Patient drives Subjective [...] headache Recurrent UTI 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[facility]) Tachycardia Past Surgical History: Procedure Laterality Date [...] completion of Occupational Therapy Plan of Care. [id number] Consult note* Candace Cortes OT - 05/09/2022 [...] . 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 [...] Function Receives Help From: Family Level of [place] - Transfers/Ambulation/Mobility: Independent with functional transfers, Independent with household ambulation, Independent with community ambulation Level of [place] - ADLs: Independent Level of [place] - Homemaking: Independent Driving: Patient drives Subjective [...] headache Recurrent UTI 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[facility]) Tachycardia Past Surgical History: Procedure Laterality Date [...] Therapy Plan of Care. * Gisele Dubois, FREDDIE - 05/08/2022 7:26 AM EDTAssociated Order(s): IP CONSULT TO CARDIAC ELECTROPHYSIOLOGY ELECTROPHYSIOLOGY CONSULT NOTE Patient Name: Kristen Mann Admit Date: [id number] MR #: [id number] : 1950 Physicians: Olivier Acosta MD (Family); No ref. provider found (Referring) Assessment and Plan: Pacemaker complications, initial encounter Assessment & Plan Kristen Mann is a 72 y.o. female with a history of heart block, asthma, Type II diabetes, GERD,HLD, migraine, retinal hemorrhage and stroke who presented to [facility] 05/07/2022 with a defective pacemaker lead and syncopal episodes. EP consulted for RV lead revision. Impression: Sick sinus syndrome requiring dual lead PPM 12-15-2021. Continued chest pain and found to have high RV impedances and recommended RV lead reposition at [facility]. Echo: 11-21-2021 EF 61%, no hemodynamically significant [...] retinal hemorrhage and stroke who presented to [facility] 05/07/2022 with a defective pacemaker lead and [...] patient to come to theemergency department at [facility]. Plan for hospitalist admission and electrophysiology consultation for potential lead revision tomorrow. The following Vizient risk variables were noted and present on admission: Cardiac Arrhythmia Please see assessment and plan for further details. History: Past Medical History: Diagnosis Date Asthma Atopy Diabetes (HCC) Eczema GERD (gastroesophageal reflux disease) Granulomatous disease (HCC) Hyperlipidemia Migraine headache Recurrent UTI 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[facility]) Tachycardia Past Surgical History: Procedure Laterality Date [...] (36.7 C) (Oral) Resp 16 Ht 5' 6.5 Wt 90.1 kg (198 lb 10.2 oz) [...] 11:22 AM EDT I personally performed a nvka-ye-fwdm diagnostic evaluation on this patient on the [...] effusion related to leadrevision. documented in this [id number] Note* Quick Note - Shi Valle RN - 05/09/2022 10:14 AM EDT Patient watching device video at bedside. [id number] Hospital Discharge instructions* Discharge Instructions* Gisele Dubois [...] after 6 weeks but check with the assembler faucets), Welding equipment, power generators, alternators on running motors B) CAUTION: cell phones/cordless phones should be used on alternate ear and stored 6 inches from device, metal detectors C) NO INTERFERENCE: Microwaves and other kitchen appliances, corded phones, computers, most power tools Please check with your Senior Director Marketing or Device assembler faucets for specific or more technical questions/concerns 6) How will I notify others about my device? You will be provided a emergency medical technician/driver ID card from the device assembler faucets. Please carry this card with you 7.) [...] my device be monitored? A) Each device assembler faucets has their own remote monitoring system. This may be given to you prior to discharge or at your upcoming device incision check. You will receive specific instructions on how to do this when you receive the equipment B) With any additional questions related to your specific device you may call the assembler faucets directly which you may find in the information book provided by the company. 9.) When will I follow up? A) Your incision check will be in 7-10 days. For most people this will be with the local device clinic who will follow your device but in rare occasions this may be with your PCP or local information systems security analyst B) Your device check will be in person at the device clinic in 3 months You may be asked to do a virtual visit in the future for follow up. Scan the QR code with your camera to be taken to our website to review Video Visit set-up. 1) Scan this if your Phone or Tablet will be used for a virtual visit 2) Scan this if your Desktop or Laptop will be used for a virtual visit documented in this [id number] Note* Sign Off Note - Gisele Dubois CNP - 05/09/2022 9:42 AM EDT Electrophysiology Sign-Off Consulting Physician: Dr Hubbard Diagnosis: RV lead migration Plan: RVlead removed and replaced Relevant EP Meds: N/A Anticoagulation: N/A Follow-up Appointment: Incision check in [place] with Dr Campos and PPM check in [address] Hubbard in [place]. Electrophysiology Service will sign off. Please re-call with any questions, concerns, or clinical updates. Assessment & Plan Kristen Mnan is a 72 y.o. female with a history of heart block, asthma, Type II diabetes, GERD,HLD, migraine, retinal hemorrhage and stroke who presented to [facility] 05/07/2022 with a defective pacemaker lead and syncopal episodes. EP consulted for RV lead revision. Impression: Sick sinus syndrome requiring dual lead PPM 12-15-2021. Continued chest pain and found to have high RV impedances and recommended RV lead reposition at [facility]. Echo: 11-21-2021 EF 61%, no hemodynamically significant valvular disease. Stress: 2018 No ischemia, EF 71% She underwent RV lead removal and new implantation yesterday. Plan: ok for discharge from EP standpoint after today's chest x-ray read by radiology and negative for pneumothorax. Follow up on AVS, Device restrictions reviewed with her and booklet shared with her. She is to watch video before discharge. [id number] History of Present illness Narrative* Gisele Duobis CNP - 05/09/2022 9:31 AM EDT PROGRESS NOTE Patient Name: Kristen Mann Admit Date: [id number] MR #: [id number] : 1950 Assessment and Plan: Pacemaker complications, initial encounter Assessment & Plan Kristen Mann is a 72 y.o. female with a history of heart block, asthma, Type II diabetes, GERD,HLD, migraine, retinal hemorrhage and stroke who presented to [facility] 05/07/2022 with a defective pacemaker lead and syncopal episodes. EP consulted for RV lead revision. Impression: Sick sinus syndrome requiring dual lead PPM 12-15-2021. Continued chest pain and found to have high RV impedances and recommended RV lead reposition at [facility]. Echo: 11-21-2021 EF 61%, no hemodynamically significant [...] (36.7 C) (Oral) Resp 16 Ht 5' 6.5 Wt 90.1 kg (198 lb 10.2 oz) [...] include none - Device check completed by [employer] and reviewed. Remote monitoring education performed by [employer] to patient and family. Further teaching reinforcement to occur at follow up visit. - CXR negative for pneumothorax on chest x-ray -2, awaiting results of 05-09. - Dressing removed [...] incision check appt with Dr Campos in [place] office and 3 month device check at [address] [place] [address] (Dr Hubbard), she does not want to follow with Dr Das ([place]). [place] does not have a device clinic Laboratory [...] 341 Gisele Dubois, MSN, ACNP, CCRN Electrophysiology [facility] , Office * Edward Kearney MD - 05/08/2022 4:51 PM EDT [facility] Inpatient Progress Note 05/08/2022 Kristen Mann 1950 [id number] Assessment/Plan: Kristen Mann is a 72 y.o. female with a history of heart block, Type II diabetes, retinal hemorrhage and stroke who presented to [facility] 05/07/2022 with a defective pacemaker lead and syncopal episodes. Patient underwent RV lead revision Chest pain: S/p PPM 12/2021 in [place]. Chest wall pain since then. CT showed [...] me, and I reviewed prior records in [facility]. I personally reviewed imaging, lab studies and licensed tax consultant notes. Pt is seen and examined [...] (36.7 C) (Oral) Resp 16 Ht 5' 6.5 Wt 90.1 kg (198 lb 10.2 oz) [...] CALCIUM mg/dL 9.7 -- documented in this [id number] Note* [facility] - Liane Keys, PT - 05/08/2022 2:05 PM EDT PHYSICAL THERAPY VISIT VARIANCE NOTE Attempted to see patient at this time, but unable secondary to: pending EP plan for possible pacer device . Will follow up as appropriate. [id number] Note* [facility] - Ailyn Nagy OT - 05/08/2022 8:34 AM EDT OCCUPATIONAL THERAPY VISIT VARIANCE NOTE Attempted to see patient at this time, but unable secondary to: (pending EP plan for possible pacer revision). Will follow up as appropriate. [id number] Evaluation + Plan note* Assessment & Plan Note - Gisele Dubois CNP - 05/08/2022 7:32 AM EDTAssociated Problem(s): Pacemaker complications, initial encounter Kristen Mann is a 72 y.o. female with a history of heart block, asthma, Type II diabetes, GERD,HLD, migraine, retinal hemorrhage and stroke who presented to [facility] 05/07/2022 with a defective pacemaker lead and syncopal episodes. EP consulted for RV lead revision. Impression: Sick sinus syndrome requiring dual lead PPM 12-15-2021. Continued chest pain and found to have high RV impedances and recommended RV lead reposition at [facility]. Echo: 11-21-2021 EF 61%, no hemodynamically significant valvular disease. Stress: 2018 No ischemia, EF 71% She underwent RV lead removal and new implantation yesterday. Plan: ok for discharge from EP standpoint after today's chest x-ray read by radiology and negative for pneumothorax. Follow up on AVS, Device restrictions reviewed with her and booklet shared with her. She is to watch video before discharge. [id number] Consult note* Gisele Dubois CNP - 05/08/2022 7:26 AM EDTAssociated Order(s): IP CONSULT TO CARDIAC ELECTROPHYSIOLOGY ELECTROPHYSIOLOGY CONSULT NOTE Patient Name: Kristen Mann Admit Date: 9001008 MR #: [id number] : 1950 Physicians: Olivier Acosta MD (Family); No ref. provider found (Referring) Assessment and Plan: Pacemaker complications, initial encounter Assessment & Plan Kristen Mann is a 72 y.o. female with a history of heart block, asthma, Type II diabetes, GERD,HLD, migraine, retinal hemorrhage and stroke who presented to [facility] 05/07/2022 with a defective pacemaker lead and syncopal episodes. EP consulted for RV lead revision. Impression: Sick sinus syndrome requiring dual lead PPM 12-15-2021. Continued chest pain and found to have high RV impedances and recommended RV lead reposition at [facility]. Echo: 11-21-2021 EF 61%, no hemodynamically significant [...] retinal hemorrhage and stroke who presented to [facility] 05/07/2022 with a defective pacemaker lead and [...] patient to come to theemergency department at [facility]. Plan for hospitalist admission and electrophysiology consultation for potential lead revision tomorrow. The following Vizient risk variables were noted and present on admission: Cardiac Arrhythmia Please see assessment and plan for further details. History: Past Medical History: Diagnosis Date Asthma Atopy Diabetes (HCC) Eczema GERD (gastroesophageal reflux disease) Granulomatous disease (HCC) Hyperlipidemia Migraine headache Recurrent UTI 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[facility]) Tachycardia Past Surgical History: Procedure Laterality Date [...] (36.7 C) (Oral) Resp 16 Ht 5' 6.5 Wt 90.1 kg (198 lb 10.2 oz) [...] 11:22 AM EDT I personally performed a fwhf-gn-visu diagnostic evaluation on this patient on the [...] she develops an effusion related to leadrevision. [id number] Note* Plan of Care - Fozia Valdez RN - 05/07/2022 11:13 PM EDT Problem: Actual or potential alteration in health Goal: Absence of healthcare acquired conditions Outcome: Partially Met Goal: Knowledge of Interdisciplinary Plan of Care Outcome: Partially Met Goal: Knowledge of Enviroment Outcome: Partially Met [id number] History and physical note* Paresh Ott DO - 05/07/2022 9:45 PM EDT [facility] History and Physical Note 05/07/22 Kristen Mann 1950 [id number] Assessment/Plan: Kristen Mann is a 72 y.o. female with a history of heart block, asthma, Type II diabetes, GERD,HLD, migraine, retinal hemorrhage and stroke who presented to [facility] 05/07/2022 with a defective pacemaker lead and syncopal episodes. Chest pain: S/p PPM 12/2021 in [place]. Chest wall pain since then. CT showed [...] (36.3 C) (Oral) Resp 18 Ht 5' 6.5 Wt 90.4 kg (199 lb 4.8 oz) [...] EGFR mL/min/1.73 m2 54* GLUCOSE mg/dL 142* [id number] History and physical note* Paresh Ott DO - 05/07/2022 9:45 PM EDT [facility] History and Physical Note 05/07/22 Kristen Mann 1950 [id number] Assessment/Plan: Kristen Mann is a 72 y.o. female with a history of heart block, asthma, Type II diabetes, GERD,HLD, migraine, retinal hemorrhage and stroke who presented to [facility] 05/07/2022 with a defective pacemaker lead and syncopal episodes. Chest pain: S/p PPM 12/2021 in [place]. Chest wall pain since then. CT showed [...] (36.3 C) (Oral) Resp 18 Ht 5' 6.5 Wt 90.4 kg (199 lb 4.8 oz) [...] 54* GLUCOSE mg/dL 142* documented in this [id number] Note* ED Procedure Note - Bobby Tan MD - 05/07/2022 6:35 PM EDTAssociated Order(s): EKG 12-lead EKG 12-lead Date/Time: 05/07/2022 6:35 PM Performed by: Bobby Tan MD Authorized by: Bobby Tan MD Interpreted by ED attending physician Comparison: compared with previous ECG Rhythm: sinus rhythm BPM: 90 Conduction: conduction normal ST Segments: ST segments normal QRS axis: normal T Waves: T waves normal DE Interval: 164 QRS Interval: 70 QT Interval: 455 Clinical impression: normal ECG [id number] Physician Emergency department Note* Bobby Tan MD [...] headache Recurrent UTI 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[facility]) Tachycardia Past medical history reviewed. Past Surgical [...] (36.3 C) (Oral) Resp 18 Ht 5' 6.5 Wt 90.4 kg (199 lb 4.8 oz) [...] C) Oral 89 16 96 % 5' 6.5 90.4 kg (199 lb 4.8 oz) MEDICAL DECISION MAKING: Ms Mann, update: Cardiac pacer lead complication: Appears to have migrated through right ventricular wall. No significant cardiomegaly or pleural effusion noted on portable chest x-ray. Does not warrant repeat CT scan at this time. No current pain or shortness of breath. radiation monitor for any signs of dysrhythmia, currently sinus rhythm on EKG. Declined pain medication Admit with medicine. EP consult for lead revision. Near syncope/orthostatic dizziness: Most recent event was several weeks prior per patient. He patient hydrated with IV fluids, lunchroom monitor and limit ambulation off hospital monitor. Elevated troponin: Nondescript. Ordered in triage per [...] All other components within normal limits Narrative: [facility] has implemented the eGFR calculation [...] Procedure Abnormality Status --------- ------ CBC Auto Differential[[id number]] Abnormal Final result Please view results for [...] (has no administration in time range) The front office secretary of Health and Human Services and Pasha Tijerina, governor of the [facility], have declared a state of public [...] mask during exam. Bobby Tan MD 05/07/222044 [employer] Work Phone: [phone]) 385-361409-01-2022 Emergency department Note* Bobby Tan MD - [...] at 0600/0800); Surgeon: Lenard Das MD; Location: [facility]; Service: Cardiovascular EYE SURGERY HYSTERECTOMY Past [...] (36.3 C) (Oral) Resp 18 Ht 5' 6.5 Wt 90.4 kg (199 lb 4.8 oz) [...] C) Oral 89 16 96 % 5' 6.5 90.4 kg (199 lb 4.8 oz) MEDICAL DECISION MAKING: Ms Mann, update: Cardiac pacer lead complication: Appears to have migrated through right ventricular wall. No significant cardiomegaly or pleural effusion noted on portable chest x-ray. Does not warrant repeat CT scan at this time. No current pain or shortness of breath. radiation monitor for any signs of dysrhythmia, currently sinus rhythm on EKG. Declined pain medication Admit with medicine. EP consult for lead revision. Near syncope/orthostatic dizziness: Most recent event was several weeks prior per patient. He patient hydrated with IV fluids, lunchroom monitor and limit ambulation off hospital monitor. Elevated troponin: Nondescript. Ordered in triage per [...] All other components within normal limits Narrative: [facility] has implemented the eGFR calculation [...] Procedure Abnormality Status --------- ------ CBC Auto Differential[[id number]] Abnormal Final result Please view results for [...] (has no administration in time range) The front office secretary of Health and Human Services and Pasha Tijerina, governor of the [facility], have declared a state of public [...] discomfort. Patient states that she saw her information systems security analyst and was told to come here for possible pacemaker replacement. documented in this [id number] Emergency department Triage note* Danielle Medina RN - 05/07/2022 2:04 PM EDT Patient ambulates to triage with complaint chest discomfort. Patient states that she saw her information systems security analyst and was told to come here for possible pacemaker replacement. [id number] History of Present illness Narrative* Radha Hubbard [...] to come to the emergency department at [facility]. Plan for hospitalist admission and electrophysiology consultation for potential lead revision tomorrow. Will notify EP team in the hospital. Radha Hubbard D.O. [facility] Electrophysiology * Radha Hubbard DO - 05/07/2022 1:20 PM EDT Electrophysiology Clinic CONSULT Heart & Vascular [facility] 05/07/2022 Radha Hubbard DO [address] [facility] [address] Patient: Kristen Mann Date of : [...] is from Dr. Campos. 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 Vagina is smooth, no lesions, cervix absent ASSESSMENT AND PLAN: JUS III, no lesiosn now. F/u in 6 months or prn Medical Decision Making Ronda Scott MD [facility] History of Present illness Narrative* Shakeel Aggarwal RN - 02/24/2022 11:26 AM EDT Pt saw Dr Campos today and wishes to get a second opinion from [place]. I talked with pt and updated her that she has an appt next week with Dr. Das and a date saved for a lead revision. Pt would like to cancel everything here with EP and follow up in [place], [facility] sent to [place] and all Ep things up here cancelled. documented in this [id number] History of Present illness Narrative* Eliecer Hill CNP - 02/12/2022 4:04 PM EDTAssociated Order(s): LG Jt Injection/Arthrocentesis: R knee Post-Procedure Diagnose(s): Primary osteoarthritis of right knee LG Jt Injection/Arthrocentesis: R knee Date/Time: 02/12/2022 4:04 PM Performed by: Eliecer Hill CNP Authorized by: Eliecer Hill CNP CPT 87460 - Large Joint Arthrocentesis: Consent given by: [...] Medical History: Diagnosis Date Asthma Atopy Diabetes ([facility]) Eczema GERD (gastroesophageal reflux disease) Granulomatous disease (HCC) Hyperlipidemia Migraine headache Recurrent UTI 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[facility]) Tachycardia IMAGING Notes: R Knee: No acute fracture or dislocation. Mild to moderate degenerative changes in the knee, most severe in the patellofemoral joint space. IMPRESSION And PLAN: Cortisone injection today. Will follow up in 3 months if effective. Call if no improvement in 10 days. No diagnosis found. Eliecer Hill CNP documented in this [id number] History of Present illness Narrative* Eliecer Hill CNP - 01/08/2022 4:37 PM EDTAssociated Order(s): LG Jt Injection/Arthrocentesis: R glenohumeral Post-Procedure Diagnose(s): Shoulder arthritis LG Jt Injection/Arthrocentesis: R glenohumeral Performed by: Eliecer Hill CNP Authorized by: Eliecer Hill CNP CPT 15012 - Large Joint Arthrocentesis: Consent given by: [...] 8:20 AM EDT [facility] [address] [facility] [address] [facility] [address] Chief Complaint Patient presents with Right Shoulder [...] pain medications as needed. documented in this [id number] History of Present illness Narrative* Latesha Rivera RN - 01/06/2022 1:02 PM EDT Shiela Martino from [place] stated that Dr. Shane said yes he will provide backup for lead revision for March 13. I will update patient and Dr. Das. documented in this [id number] History of Present illness Narrative* Shakeel Aggarwal RN - 01/06/2022 12:59 PM EDT Pt here to re-check PPM site, site is well approximated now with no redness noted. Pt denies any complaints at this time. Pt is OKd to shower at this time. documented in this [id number] History of Present illness Narrative* Marily Paige RN - 01/05/2022 3:55 PM EDT PRELIMINARY REVIEW: Routed to EP for review/signature: KRISTEN MANN was seen at [facility] on Thursday, December 30, 2021. The patient's underlying rhythm was Sinus. This evaluation showed the patient was not pacing dependent. The evaluation results are as follows: Pacemaker - [employer] L311 ACCOLADE MRI (On Alert). This device was implanted on 12/15/2021 and is 0 months old. Atrial Lead - [employer] 7840 Ingevity + MRI. This lead was implanted on 12/15/2021. A pacing threshold of 1.1000 V @ 0.4 ms was determined duringtoday's evaluation. The P wave was sensed at 5.9 mV. The lead impedance was 482.0 ?. Right Ventricular Lead - [employer] 7841 Ingevity + MRI. This lead was implanted on 12/15/2021. A pacing threshold of 6.0000 V @ 0.4 ms was determined duringtoday's evaluation. The R wave was sensed at 1.7 mV. The lead impedance was 476.0 ?. A [employer] Dual Chamber PPM/In Clinic Device Check Device Site: Left chest site with red, mild swelling with small circular open/scabbed areas Est. Battery: 10 years Underlying Rhythm: Sinus Presenting EGM: /VS rate 80's AP: <1 % RVP: 2 % AFib [place]: <1% AHR Episodes: 1 listed lasting <1 [...] directed. ___No changes made. documented in this [id number] History of Present illness Narrative* Shakeel Aggarwal RN - 12/23/2021 5:36 PM EDT OV with RN for incision check s/p PPM implant on 12-[address] Das. Pt denies concerns or [...] and is well approximated. documented in this [id number] History of Present illness Narrative* Shakeel Aggarwal [...] updated and verbalizes understanding. documented in this [id number] Instructions* Patient Instructions* Shakeel Aggarwal RN - 11/20/2021 10:56 AM EDT [facility] EP Pre Procedure Instructions The Physician has scheduled you for the following procedure. pacemaker Date and Time of your Procedure ____11-28-21 at 1200, arrive at 1000 Please arrive at [facility] and check in at out-patient registration by___1000 [...] Clinic today. Please contact VIKA Beckford at [phone] if you have questions, concerns, or need prescription refills before your next appointment. documented in this [id number] History of Present illness Narrative* Lenard Das MD - 11/20/2021 10:50 AM EDT Heart & Vascular Clinic Note [facility] Visit Date: 11/20/2021 [...] A1c 7.8% on 07/02/21 #??Catheter ablation at [facility] 5 years ago. #ECHO: 2020 Summary 1. [...] ASSESSMENT & PLAN: See above Lenard Das [phone] documented in this [id number] History of Present illness Narrative* Allegra Díaz PA-C - 10/14/2021 10:00 AM EST Heart & Vascular Clinic Note [facility] Visit Date: 10/13/2021 [...] headache Recurrent UTI 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[facility]) Tachycardia Past Surgical History: Procedure Laterality Date [...] Result by Axel Soares MD (10/16/2015 0935) [employer] Summary Report: 08/20/21-09/22/21 Battery: Good Presenting: NSR 60's Symptom: 0 Tachy: 0 Pause: 0 Ron: 1-ID# 2 occurred on 09/15/21 with rates 32bpm lasting 10-12 seconds. Patient denied symptoms and stated she had a cold with cough/congestion. AT: 3- Average V rate of 121-123 bpm lasting 5-[address] Das increased patients Toprol XL to 25 QD. AF: 0 AF [place]: 0% Histograms: 60-140 bpm Meds: Toprol XL Notes: Patient cancelled appointment with Allegra Díaz CNP on 09/04/21 and was rescheduled to 10/14/21. Signature: David Gtz MA. EKG 10/14/2021: Sinus rhythm rate 97, DE 156, QRS 86, QTc be 432 ASSESSMENT: [...] A1c 7.8% on 07/02/21 #??Catheter ablation at [facility] 5 years ago. PLAN: Would recommend patient [...] medications. Allegra Díaz PA-C documented in this [id number] History of Present illness Narrative* Eliecer Hill CNP - 09/15/2021 2:04 PM EST Associated Order(s): LG Jt Injection/Arthrocentesis: R greater trochanteric bursa; LG Jt Injection/Arthrocentesis: L greater trochanteric bursa Post-Procedure Diagnose(s): Primary osteoarthritis of right hip; Primary osteoarthritis of left hip LG Jt Injection/Arthrocentesis: R greater trochanteric bursa Performed by: Eliecer Hill CNP Authorized by: Eliecer Hill CNP CPT 62640 - Large Joint Arthrocentesis: Consent given by: [...] CNP Authorized by: Eliecer Hill CNP CPT 58851 - Large Joint Arthrocentesis: Consent given by: [...] 09/15/2021 2:01 PM EST [address] [facility] [address] [facility] [address] Chief Complaint Patient presents with Left Hip [...] her back as needed. documented in this [id number] History of Present illness Narrative* Eliecer Hill CNP - 08/21/2021 8:32 AM EST Associated Order(s): LG Jt Injection/Arthrocentesis: R knee Post-Procedure Diagnose(s): Primary osteoarthritis of both knees LG Jt Injection/Arthrocentesis: R knee Performed by: Eliecer Hill CNP Authorized by: Eliecer Hill CNP CPT 42407 - Large Joint Arthrocentesis: Consent given by: [...] headache Recurrent UTI 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[facility]) Tachycardia IMAGING Notes: none new today. Reviewed from last visit. IMPRESSION And PLAN: Cortisone injection today. Will follow up in 3 months if effective. Call if no improvement in 10 days. 1. Primary osteoarthritis of both knees Eliecer Hill CNP documented in this [id number] History of Present illness Narrative* Eduardo Castro MD - 08/05/2021 9:18 AM EST [address] [facility] [address] [place] [address] Name: Kristen Mann Age: 71 y.o. : [...] up. She was being followed by Dr. Loepz for mild asthma as well as an [...] PRN Eduardo Castro MD documented in this [id number] Miscellaneous Notes* Telephone Encounter - Latesha Rivera [...] know. Pt verbalized understanding. documented in this [id number] History of Present illness Narrative* Lenard Das MD - 07/10/2021 12:14 PM EDT Noted on Linq report that patient had another episode of AT lasting 5hrs with a rate of 122bpm. Will increase metoprolol to 25mg q daily. F/u 08/13. documented in this [id number] History of Present illness Narrative* Latricia Wilson [...] there are inherent diagnostic limitations compared to xcbt-kk-ghnt evaluations. We elected toproceed with the telephone [...] referred by RJ Hill for evaluation of arthralgia. HPC: This is a 71 y.o. female [...] complaints of arthralgias. 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 Ports poorly controlled diabetes reports she has had 2 recent DEXA scans? I will try obtain outsiderecords. Patient reports taking vitamin D. I have reviewed the patient's medical history in detail and updated the computerized patient record. Past Medical History: Diagnosis Date Asthma Atopy Diabetes (HCC) Eczema GERD (gastroesophageal reflux disease) Granulomatous disease (HCC) Hyperlipidemia Migraine headache Recurrent UTI 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[facility]) Tachycardia Past Surgical History: Procedure Laterality Date [...] injury Telehealth appointments ok. Latricia Wilson MD Director Of Mechanical Engineering Pillowcase Cleaner Note: To expedite correspondence this note was generated by [employer] voice recognition software. Somegrammatical or spelling errors may occur using the system. documented in this [id number] NoteHNO ID: [id number] Author: ELAN Juárez Service: Radiology Author Type: Clinical Neurosurgical Physician Assistant Type: Progress Notes Filed: 05/14/2021 9:20 AM [...] BY: ELAN Juárez May 14, 2021 9:20 AMWadsworth-Rittman [id number] History of Present illness Narrative* Eliecer Hill CNP - 05/05/2021 9:45 AM EDT Associated Order(s): LG Jt Injection/Arthrocentesis: R knee; LG Jt Injection/Arthrocentesis: R greater trochanteric bursa; LG Jt Injection/Arthrocentesis: L greater trochanteric bursa Post-Procedure Diagnose(s): Primary osteoarthritis of both knees; Primary osteoarthritis of right hip; Primary osteoarthritis of left hip LG Jt Injection/Arthrocentesis: R knee Performed by: Eliecer Hill CNP Authorized by: Eliecer Hill CNP CPT 84563 - Large Joint Arthrocentesis: Consent given by: [...] CNP Authorized by: Eliecer Hill CNP CPT 93518 - Large Joint Arthrocentesis: Consent given by: [...] CNP Authorized by: Eliecer Hill CNP CPT 13632 - Large Joint Arthrocentesis: Consent given by: [...] - 05/05/2021 9:45 AM EDT [address] [facility] [address] [facility] [address] Chief Complaint Patient presents with Right Hip [...] Friends and Family: Not on file Attends Evangelical Services: Not on file Active Member of [...] another set of injections. documented in this [id number] History of Present illness Narrative* Lenard Das MD - 02/13/2021 9:03 AM EDT Heart & Vascular Clinic Note [facility] Visit Date: 02/13/2021 Patient Name: Kristen Mann : 1950 Reason for Visit: Establish Care (Linq per Campos -discuss ron episode on lux ) ASSESSMENT: #Bradycardia: 6 second episode of 2:1 block at 5am recorded on her Loop recorder. Patient was asymptomatic during this episode. #Syncope #Dizziness #Orthostatic hypotension #HTN, HLD, #TIA #DM #??Catheter ablation at [facility] 5 years ago. PLAN: --stop metoprolol at [...] headache Recurrent UTI 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[facility]) Tachycardia Past Surgical History: Procedure Laterality Date [...] Social Gatherings with Friends and Family: Attends Evangelical Services: Active Member of Clubs or Organizations: [...] ASSESSMENT & PLAN: See above Lenard Das [phone] documented in this [id number] Instructions* Patient Instructions* Richard Braga MD - [...] following up with your PCP and your information systems security analyst andif they suggest medication adjustments, go ahead [...] vascular surgery. Follow-up: . documented in this [id number] History of Present illness Narrative* Richard Braga MD - 02/11/2021 9:38 AM EDT Images from the original note were not included. NEUROLOGY NOTE [facility], [place] [address] [address], [facility] second floor [facility] [address] Fax: [phone] Service date: 02/11/2021 Admit date: (Not on file) Kristen Mann is a 70 y.o. female here for evaluation of dizziness. She had most recently had a syncopal event, admitted to [facility] in November 2020 for the same, and [...] that. She had had cardiology evaluation in 2018 for tachycardia, with a Holter monitor showing [...] in November 2020, was admitted at the [facility]. The events were as follows: shegot up walked into her kitchen, she then noted that she was seeing lights and hit the floor. She suffered some [...] and hyperlipidemia. She had been admitted to [facility] in February 2018 for transient left arm weakness and pain in the setting of a migraine headache. Symptoms lasted less than 15 minutes, and her MRI work-up at the time was negative for acute strokes, structural lesions and bleeds. CT angiogram head and neck showed 40% right internal carotid artery stenosis. She was started by Dr. Blake (neurologist at [place]) on Amitriptyline 25 mg at bedtime for [...] tremors myoclonus dyskinesias chorea or athetosis noted. [place]eline-Hallpike maneuver: No nystagmus in any direction. Subjective [...] the carotid arteries to see where we document processing specialist terms of the narrowing. Orthostatic hypotension can [...] following up with your PCP and your information systems security analyst andif they suggest medication adjustments, go ahead [...] loaded without a specified hospital service. RICHARD BRAGA, Nitesh, MD. Staff Neurologist & Movement Disorder Specialist [facility] (Adj Asst: Professor, [facility] [employer] Dept of Neurology) [address] [facility], [facility] [address] [facility] Fax: [phone] Attestation: Time Statement (OP Visits): A total [...] using a speech-recognition software. documented in this [id number] History of Present illness Narrative* Eliecer Hill [...] CNP Authorized by: Eliecer Hill CNP CPT 14947 - Large Joint Arthrocentesis: Consent given by: [...] CNP Authorized by: Eliecer Hill CNP CPT 55601 - Large Joint Arthrocentesis: Consent given by: [...] CNP Authorized by: Eliecer Hill CNP CPT 28523 - Large Joint Arthrocentesis: Consent given by: [...] - 01/08/2021 12:07 PM EDT [address] [facility] [address] [facility] [address] Chief Complaint Patient presents with Right Knee [...] file Gets together: Not on file Attends oriental orthodox service: Not on file Active member of [...] months or as needed. documented in this [id number] History of Present illness Narrative* Latricia Wilson MD - 01/06/2021 9:04 AM EDT RHEUMATOLOGY EST PATIENT VISIT Patients name: Kristen Mann : 1950 Today's date: 01/06/2021 Reason for visit:Est patient, referred by RJ Hill for evaluation of arthralgia. HPC: This is a 70 y.o. female [...] headache Recurrent UTI 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[facility]) Tachycardia Past Surgical History: Procedure Laterality Date [...] excessive caffeine intake. -Fall and fracture precautions manager lean Reclast therapy -Patient is on vitamin D [...] injury Telehealth appointments ok. Latricia Wilson MD Director Of Mechanical Engineering Pillowcase Cleaner Note: To expedite correspondence this note was generated by [employer] voice recognition software. Somegrammatical or spelling errors may occur using the system. documented in this [id number] History of Present illness Narrative* Mariela Petty [...] and questions were answered. documented in this [id number] Miscellaneous Notes* Quick Note - Rizwana Perry RN - 12/20/2020 3:50 PM EDT Pt eating sandwich And chips at this time. Dressing cdi * Mat Note - Rizwana Perry RN - 12/20/2020 2:20 PM EDT Pt c/o bs being 79. States feels shaky at this time. Called EP lab and ok to give OJ and fruit cup.Will monitor. documented in this [id number] NoteProcedure: LOOP RECORDER Insertion Indication: Syncope/Near Syncope [...] Blood Loss: <10ml. Complications: No immediate complications. [id number] History and physical note* Lenard Das MD - 12/20/2020 2:55 PM EDT INTERVAL HISTORY AND PHYSICAL Patient Name: Kristen Mann Admit Date: [id number] MR #: [id number] : 1950 The H&P has been reviewed and the patient has been examined. I concur with the findings of the H&P. There are no significant changes. It is appropriate to proceed with the planned procedure. Lenard Das MD 12/20/2020 3:37 PM * Cecilia Campos MD - 12/04/2020 8:20 AM EDT General Cardiology Clinic Follow-up Heart & Vascular [facility] 12/04/2020 Cecilia Campos MD [address] [place] [address] Medical Office [facility] [address] Patient: Kristen Mann Date of : 1950 (70 y.o.) PCP: Mimi Estrada PA-C Assessment & Plan Tachycardia She had an episode in October. She got up walked into her kitchen, she then noted that she was seeing lights and hit the floor. She suffered some [...] Final Result by Axel Soares MD (10/16/2015 0966) Review of Systems: Review of Systems Constitution: [...] Cuff Size: Adult) Pulse 90 Ht 5' 5 Wt 89.8 kg (198 lb) SpO2 94% [...] and affect. Vitals reviewed. documented in this [id number] Hospital Discharge instructions * Instructions* Shakeel Aggarwal RN - 12/20/2020 [facility] [phone] LOOP RECORDER EXPLANT DISCHARGE INSTRUCTIONS ? It [...] Clinical Note Date No Information [facility] Work Phone: Discharge summary Author Dr. Patton [facility] September 22, 2022 12:46pm Note Date/Time September 22, 2022 1 2:43pm [facility] Medical Records Department [address] [place] [address] [place] [address] Discharge Summary 09/22/22 1236 MR#: [id number] Acct: [id number] Name: KRISTEN MANN Rep #:[id number] : 1950 72 From: Thee thomas MD PCP: Dr. Olivier Acosta MD Status:A DM IN Location: [place] [address] Providers Date of Admission: 09/18/22 Primary Care [...] Document 09/19/22 12:38 LO (Rec: 09/19/22 12:38 [id number]) Nutrition Malnutrition Evidence of Malnutrition Exists Yes [...] % (Auto) 61.4, Lymph % (Auto) 24.2, [place] % (Auto) 8.9, Eos % (Auto) 3.7, [...] Self Care Charges/Coding Visit Charges Inpatient E&M: 76817 Disch Hosp >30min 09/22/22 1246 <Electronically signed by Thee Patton MD> Cosigner Signature (if applicable): CC: Dr. Thee Patton MD; Dr. Olivier Acosta MD~ [facility] Work Phone: Discharge summary* Clinical Note Date No Information [facility] Work Phone: Evaluation note* Diagnosis Arthralgia, unspecified [...] malabsorption Osteomalacia, unspecified [facility] Influenza vaccine needed- Primary Asthma, unspecified asthma severity, unspecified whether complicated, unspecified whether persistent Lung nodules Other diseases of lung, not elsewhere classified [facility]* Diagnosis Primary osteoarthritis of both knees- Primary [facility]* Diagnosis Primary osteoarthritis of right hip- Primary Primary osteoarthritis of left hip Osteoarthritis of right knee, unspecified osteoarthritis type Other specified diabetes mellitus without complication, with long-term current use of insulin (HCC) [facility]* Diagnosis Syncope, unspecified syncope type [facility]* Diagnosis Syncope, unspecified syncope type [facility] Diagnosis Syncope, unspecified syncope type [facility]* Diagnosis Shoulder arthritis- Primary Unspecified arthropathy, shoulder region [facility] Diagnosis Primary osteoarthritis of right knee- Primary [facility] noteNo assessment information [facility]WPeoples [facility] Work Phone: Evaluation note* Diagnosis Pacemaker- Primary Cardiac pacemaker in situ [facility]* Diagnosis 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, vulva documented in this encounter [facility] note* Diagnosis Pacemaker Cardiac pacemaker in situ [facility]* Diagnosis Syncope, cardiogenic- Primary Complication associated with cardiac pacemaker lead, initial encounter Near syncope Orthostatic dizziness Elevated troponin Other abnormal blood chemistry Stage 3a chronic kidney disease (HCC) Pacemaker complications, initial encounter [facility]* Diagnosis Primary osteoarthritis of right knee- Primary [facility]* Diagnosis Onset Date Resolution Status Chronic kidney disease chron ic Diabetes chronic Obesity [facility] Work Phone: Evaluation note* Diagnosis AV block- Primary Unspecified atrioventricular block [facility]* Diagnosis Pacemaker- Primary Cardiac pacemaker in situ Tachycardia Unspecified tachycardia [facility]* Diagnosis Onset Date Resolution Status Chronic kidney disease chron ic Diabetes chronic Obesity chronic UTI (urinary tract infection) acute [facility] Work Phone: Evaluation note* Diagnosis Onset Date Resolution Status Chronic kidney disease chron ic Diabetes chronic Obesity chronic Dehydration acute Elevated serum creatinine ac [place] Generalized weakness acute Hyperglycemia acute Leukocytosis acute UTI (urinary tract infection) acute Vomiting acute [facility] Work Phone: Evaluation note* Diagnosis Onset Date Resolution Status Chronic kidney disease chron ic Diabetes chronic Obesity chronic Hyperglycemia acute Dehydration resolved Elevated serum creatinine re solved Generalized weakness resolve d Leukocytosis resolved Vomiting resolved Diabetes chronic Abnormal CT scan, colon acut e Nausea acute [facility] Work Phone: Evaluation note* Diagnosis Onset Date [...] S/P kyphoplasty acute Syncope acute Diabetes chronic [facility] Work Phone: Evaluation note* Diagnosis Onset Date [...] e S/P kyphoplasty acute Syncope acute Diabetes chronic [facility] Work Phone: Evaluation note* Diagnosis Pacemaker Cardiac pacemaker in situ Orthostatic hypotension [facility]* Diagnosis Primary osteoarthritis of right knee- Primary [facility]* Diagnosis Acute thoracic back pain, unspecified back pain laterality- Primary Back pain, unspecified back location, unspecified back pain laterality, unspecified chronicity Pain of left calf Back pain, unspecified back location, unspecified back pain laterality, unspecified chronicity Acute thoracic back pain, unspecified back pain laterality [facility]* Diagnosis Pacemaker Cardiac pacemaker in situ Orthostatic hypotension [facility] Diagnosis Onset Date Resolution Status Presence of cardiac pacemaker acute Sick sinus syndrome acute [facility] Work Phone: Evaluation note* Diagnosis Abnormal finding on breast imaging Other (abnormal) findings on radiological examination of breast [facility]* Diagnosis Status post kyphoplasty- Primary Vertigo Dizziness and giddiness Age-related osteoporosis with current pathological fracture with routine healing, subsequent encounter Closed wedge fracture of lumbar vertebra with delayed healing, unspecified lumbar vertebral level, subsequent encounter [facility]* Diagnosis LV dysfunction- Primary Left heart failure LV dysfunction Left heart failure [facility]* Diagnosis Syncope, unspecified syncope type- Primary Bradycardia Other specified cardiac dysrhythmias Pacemaker Cardiac pacemaker in situ Abnormal ECG Nonspecific abnormal electrocardiogram (ECG) (EKG) [facility]* Diagnosis Status post kyphoplasty- Primary Closed wedge fracture of thoracic vertebra with routine healing, unspecified thoracic vertebral level, subsequent encounter Night muscle spasms [facility]* Diagnosis Closed wedge fracture of thoracic vertebra with routine healing, unspecified thoracic vertebral level, subsequent encounter- Primary Closed wedge fracture of lumbar vertebra with delayed healing, unspecified lumbar vertebral level, subsequent encounter [facility]* Diagnosis Primary osteoarthritis of right knee- Primary [facility]* Diagnosis NPH (normal pressure hydrocephalus) (HCC)- Primary Idiopathic normal pressure hydrocephalus (INPH) [facility]* Diagnosis UTI (urinary tract infection)- Primary Urinary tract infection, site not specified Dizziness Dizziness and giddiness NPH (normal pressure hydrocephalus) (HCC) Idiopathic normal pressure hydrocephalus (INPH) Nausea and vomiting, unspecified vomiting type Complicated UTI (urinary tract infection) Elevated troponin Other abnormal blood chemistry Fall, initial encounter [facility]* Type Assessment Date No Information [facility] Work Phone: Evaluation note* Diagnosis Echocardiogram abnormal- [...] compression fracture of L2 vertebra, initial encounter ([facility]) Closed compression fracture of L4 vertebra, initial encounter ([facility]) Dizziness Dizziness and giddiness Compression fracture of L2 vertebra, initial encounter ([facility]) Orthostatic hypotension S/P kyphoplasty Compression fracture of L2 vertebra ([facility]) Generalized abdominal pain Abdominal pain, generalized Thoracic compression fracture, closed, initial encounter ([facility])- Primary Thoracic compression fracture, closed, initial encounter ([facility]) Fall Unspecified fall Closed fracture of seventh thoracic vertebra ([facility]) Diabetes mellitus ([facility]) Type II or unspecified type diabetes mellitus without mention of complication, not stated as uncontrolled GAGANDEEP (acute kidney injury) ([facility]) Vision changes Acute UTI Urinary tract infection, site not specified Abrasion Abrasion or friction burn of other, multiple, and unspecified sites, without mention of infection Abnormal ECG- Primary Nonspecific abnormal electrocardiogram (ECG) (EKG) [facility] Dr. Hidalgo [facility] October 08, 2022 4:03pm Note Date/Time October 08, 2022 3 :57pm [facility] Medical Records Department [address] [place] [address] H&P Exam - Hospitalist 10/08/22 1549 MR#: [id number] Acct: [id number] Name: KRISTEN MANN Rep #:[id number] : 1950 72 From: Emmanuel Hidalgo DO PCP: Dr. Olivier Acosta MD Status:A DM LIZZIE Location: [place] [address] HPI - General General Date of Admission: [...] but the results of which are unknown. REPLACED BY [facility] Medical History Abnormal CT scan, colon Asthma [...] 72.3 H, Lymph % (Auto) 14.2 L, [place] % (Auto) 8.3, Eos % (Auto) 3.1, [...] Diabetes mellitus type: type 2 Diabetes mellitus custodial insulin use: with prison use Diabetes mellitus complication status: with ophthalmic complications Diabetes mellitus complication detail: with diabetic retinopathy Diabetic retinopathy severity: with unspecified retinopathy severity Diabetes mellitus macular edema: macular edema presence unspecified Laterality: unspecified laterality Qualified Code(s): E11.319 - Type 2 diabetes mellitus with unspecified diabetic retinopathy without macular edema; Z79.4 - manager lean (current) use of insulin PLAN: Type II [...] full code. Charges/Coding Visit Charges Inpatient E&M: 35687 Init Hosp L3 10/08/22 1603 <Electronically signed by Emmanuel Hidalgo DO> Cosigner Signature (if applicable): CC: Dr. Emmanuel Hidalgo DO; Dr. Olivier Acosta MD~ Signed [facility] Work Phone: History and physical note* Clinical Note Date No Information [facility] Work Phone: History of Present illness Narrative* Encounter Date Complaint History Of Prese nt Illness No Information [facility] Work Phone: Hospital Discharge instructions Additional Instructions Please follow-up with orthopedic doctor I referred you to. Please begin taking MiraLAX. Return if symptoms do not improve or worsen. Your CT scan showed compression deformity of T12. 4.4mm retropulsed fragment into the canal causing moderate spinal stenosis.[facility] Work Phone: Instructions* Date Instruction Additional Infor mation No Information [facility] Work Phone: Progress note* Clinical Note Date No Information [facility] Work Phone: Reason for referral (narrative)* Reason For Referral No Information [facility] Work Phone: Reason for referral (narrative)No reason for [facility] Reason for visit Narrative* Diagnostic Procedure Only (Routine) - Closed Specialty Diagnoses / Procedures Referred By Padmini rangel Referred To Contact [facility] Diagnoses Abnormal finding on breast imaging Procedures CATIE SCREENING SCREENING MAMMOGRAPHY BI 2-VIEW BREAST INC Garcia Edmondson MD [address] [place] [address] [facility] [address] [place] [address] Referral ID Status Reason Start Date Expiration Date V isits Requested Visits Authorized [id number] Closed Auto-Generate d Referral 10/23/2021 11/22/[address] [facility] * Imelda Quesada MD - 02/09/2018 5:56 PM EDT Formatting of this note may be different from the original. Imelda Quesada MD [facility] Hospitalists DISCHARGE SUMMARY Kristen Mann Admit Date: [...] artery stenosis on MR study done at [facility], images were sent to Dr. Alexandra office. - CTA head and neck here revealed only 40 % stenosis. - She was initiated on ASA 81 mg, statins were recommended, however she reported that she had triedall different Statins and had side effects/intolerant effects and was interested in taking them. - Counseled to talk to her tube coremaker regarding different other options. She will need [...] units TID, outpatient follow up with her tube coremaker. - Metformin need to be held for [...] (ELAVIL) 25 MG tablet nightly ., Starting Wed09/12/2017, Historical Med HUMALOG 100 unit/mL injection 7 [...] 25 mg by mouth nightly ., Starting [facility] 07/25/2015, Historical Med citalopram (CELEXA) 40 MG [...] Everywhere. * Diabetes Diet Guidelines: General Info (Armenian) * Diabetes Diet Meal Planning: General Info (Armenian) in this encounter Assessments Diagnosis Carotid stenosis, [...] of both hips Summary Purpose Family History No Family History Records Found Mother Name Dates Details Family history of [...] Age At Onset No Information Advance Directives No Advanced Directives Records FoundDocuments on File Type Date Recorded Patient Director Of Digital Platforms Expl anation Advance Directives and Living Will Latest Code Status on File Code Status Date Activated Date Inactivated Comments Full Code 02/08/2018 11:00 PM Documents on File Type Date Recorded Patient Director Of Digital Platforms Expl anation Advance Directives and Living Will Latest Code Status on File Code Status Date Activated Date Inactivated Comments Full Code 02/08/2018 11:00 PM Documents on File Type Date Recorded Patient Director Of Digital Platforms Expl anation Advance Directives and Livin g Will 07/19/2019 11:00 AM Documents on File Type Date Recorded Patient Director Of Digital Platforms Expl anation Advance Directives and Livin g Will 08/11/2019 11:00 AM Documents on File Type Date Recorded Patient Director Of Digital Platforms Expl anation Advance Directives and Livin g Will 08/11/2019 11:00 AM Documents on File Type Date Recorded Patient Director Of Digital Platforms Expl anation Advance Directives and Livin g Will 06/20/2020 11:40 AM Documents on File Type Date Recorded Patient Director Of Digital Platforms Expl anation Advance Directives and Livin g Will 08/05/2020 11:40 AM Documents on File Type Date Recorded Patient Director Of Digital Platforms Expl anation Advance Directives and Livin g Will 08/05/2020 11:40 AM Documents on File Type Date Recorded Patient Director Of Digital Platforms Expl anation Advance Directives and Livin g Will 07/16/2020 11:40 AM Documents on File Type Date Recorded Patient Director Of Digital Platforms Expl anation Advance Directives and Livin g Will 07/19/2019 11:00 AM Documents on File Type Date Recorded Patient Director Of Digital Platforms Expl anation Advance Directives and Livin g Will 12/20/2020 11:40 AM Latest Code Status on File Code Status Date Activated Date Inactivated Comments Full Code 12/20/2020 3:36 PM 12/20/2020 6:46 PM Full Code - Unverified 12/18/2020 9:49 AM 12/20/2020 12: 08 PM Full Code 02/08/2018 11:00 PM 12/18/2020 9:49 AM Documents on File Type Date Recorded Patient Director Of Digital Platforms Expl anation Advance Directives and Livin g Will 12/20/2020 11:40 AM Latest Code Status on File Code Status Date Activated Date Inactivated Comments Full Code 12/20/2020 3:36 PM 12/20/2020 6:46 PM Full Code - Unverified 12/18/2020 9:49 AM 12/20/2020 12: 08 PM Full Code 02/08/2018 11:00 PM 12/18/2020 9:49 AM Documents on File Type Date Recorded Patient Director Of Digital Platforms Expl anation Advance Directives and Livin g Will 01/06/2021 9:47 AM Documents on File Type Date Recorded Patient Director Of Digital Platforms Expl anation Advance Directives and Livin g Will 01/06/2021 9:47 AM Documents on File Type Date Recorded Patient Director Of Digital Platforms Expl anation Advance Directives and Livin g Will 01/20/2021 9:47 AM Documents on File Type Date Recorded Patient Director Of Digital Platforms Expl anation Advance Directives and Livin g Will 01/20/2021 9:47 AM Documents on File Type Date Recorded Patient Director Of Digital Platforms Expl anation Advance Directives and Livin g Will 02/13/2021 8:18 AM Documents on File Type Date Recorded Patient Director Of Digital Platforms Expl anation Advance Directives and Livin g Will 03/31/2021 8:18 AM Documents on File Type Date Recorded Patient Director Of Digital Platforms Expl anation Advance Directives and Livin g Will 07/24/2021 10:16 AM Documents on File Type Date Recorded Patient Director Of Digital Platforms Expl anation Advance Directives and Livin g Will 09/14/2021 10:16 AM Documents on File Type Date Recorded Patient Director Of Digital Platforms Expl anation Advance Directives and Livin g Will 09/14/2021 10:16 AM Documents on File Type Date Recorded Patient Director Of Digital Platforms Expl anation Advance Directives and Livin g Will 12/19/2021 6:08 AM Latest Code Status on File Code Status Date Activated Date Inactivated Comments Full Code 12/15/2021 11:46 AM 12/16/2021 4:22 PM Full Code 11/28/2021 3:28 PM 12/15/2021 6:09 AM Full Code 11/21/2021 9:26 AM 11/28/2021 11:55 AM Full Code 12/20/2020 3:36 PM 12/20/2020 6:46 PM Documents on File Type Date Recorded Patient Director Of Digital Platforms Expl anation Advance Directives and Livin g Will 12/23/2021 6:08 AM Documents on File Type Date Recorded Patient Director Of Digital Platforms Expl anation Advance Directives and Livin g [...] Will No June 18 9:09pm Power of Vb Net Developer No June 18, 2022 9:09pm Advance Directive Response Recorded Date/ Time Living Will No June 18 8:09pm Power of Vb Net Developer No June 18, 2022 8:09pm Latest Code [...] Recorded Date/ Time Living Will No August 30 11:59pm Power of Vb Net Developer No August 30, 2022 11:59pm Advance Directive Response Recorded Date/ Time Living Will No August 31 3:28am Power of Vb Net Developer No August 31, 2022 3:28am Advance Directive Response Recorded Date/ Time Living Will No September 18 1:48pm Power of Vb Net Developer No September 18, 2022 1:48pm Advance Directive Response Recorded Date/ Time Living Will No September 25 6:15pm Power of Vb Net Developer No September 25, 2022 6:15pm Advance Directive Response Recorded Date/ Time Living Will No October 08 1:31pm Power of Vb Net Developer No October 08, 2022 1:31pm Advance Directive Response Recorded Date/ Time Living Will No October 08 4:15pm Power of Vb Net Developer No October 08, 2022 4:15pm Latest Code [...] Will No October 08 5:15pm Power of Vb Net Developer No October 08, 2022 5:15pm Latest Code [...] CNP Authorized by: Elba Reyes CNP CPT 79634 - Large Joint Arthrocentesis: Consent given by: [...] CNP Authorized by: Elba Reyes CNP CPT 22338 - Large Joint Arthrocentesis: Consent given by: [...] BP 120/66 Pulse (!) 106 Ht 5' 6 Wt 82.6 kg (182 lb) BMI 29.38 [...] deformity to left middle finger. 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 She [...] BP 137/77 Pulse (!) 101 Ht 5' 6 Wt 82.6 kg (182 lb) BMI 29.38 [...] BP 128/74 Pulse (!) 104 Ht 5' 6 Wt 82.6 kg (182 lb) BMI 29.38 [...] CNP Authorized by: Elba Reyes CNP CPT 19334 - Large Joint Arthrocentesis: Consent given by: [...] CNP Authorized by: Elba Reyes CNP CPT 08402 - Large Joint Arthrocentesis: Consent given by: [...] General Cardiology Clinic Consult Heart & Vascular [facility] 08/09/2019 Cecilia Campos MD [address] [place] [phone] Patient: Kristen Mann Date of : [...] updated carotid studies completed at her local [facility]. I note that she has hyperlipidemia, [...] headache Recurrent UTI 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[facility]) Past Surgical History: Procedure Laterality Date APPENDECTOMY [...] BP 141/86 Pulse (!) 111 Ht 5' 6 Wt 90.3 kg (199 lb) SpO2 98% [...] CNP Authorized by: Elba Reyes CNP CPT 16573 - Large Joint Arthrocentesis: Consent given by: [...] CNP Authorized by: Elba Reyes CNP CPT 27677 - Large Joint Arthrocentesis: Consent given by: [...] General Cardiology Clinic Follow-up Heart & Vascular [facility] 11/13/2019 Cecilia Campos MD [address] [place] [address] Medical Office [facility] [phone] Patient: Kristen Mann Date of [...] Signs: BP 110/68 Pulse 74 Ht 5' 5 Wt 94.3 kg (208 lb) SpO2 100% [...] CNP Authorized by: Elba Reyes CNP CPT 25905 - Large Joint Arthrocentesis: Consent given by: [...] CNP Authorized by: Elba Reyes CNP CPT 16976 - Large Joint Arthrocentesis: Consent given by: [...] had an injection of Dupixent by her cattle killer around February 27. After the injection she started to have joint pain all throughout her body. Her knees ached, her back ached, everything was just sore and stiff. She contacted her cattle killer who told her that there was no [...] disc disease. Her pain management doctor in [place] does the injections. The hip bursa injections [...] file Gets together: Not on file Attends oriental orthodox service: Not on file Active member of [...] and then discuss the dupixent with her cattle killer.I researched that arthralgias are an adverse reaction to this injection and this is something that is controlled with celebrex and an oral steroid but the patient, being diabetic, doesn't want to usean oral steroid due to it raising her blood sugars. She will follow up with her cattle killer and I will be happy to see [...] PA Request for Celebrex faxed to health plan directly. documented in this encounter* Angelina Lopez [...] which seem to be well controlled with emkk-pmv-zignqce antihistamine. She has had a new problem with worsening eczema and skin issues. She has plaque-like lesions that scar. She was started on Dupixent but had a reaction. She developed lower body pain and weakness and believes that this was related to her injection, however, she has known lower back arthritis and previous issues requiring injections so her reaction may have been coincidental. She will discuss this with her cattle killer. She has multiple other medical problems including diabetes, hyperlipidemia, history of stroke, migraines, history of retinalhemorrhage, acid reflux disease, which have been stable. No other new medical problems. Current Outpatient Medications Medication Sig Dispense Refill amitriptyline (ELAVIL) 25 MG tablet nightly . celecoxib (CeleBREX) 100 MG capsule Take 1 (one) capsule (100 mg total) by mouth daily . 30 uynixra12 cetirizine-pseudoePHEDrine (ZyrTEC-D) 5-120 mg per tablet Take [...] Eczema I do not believe that her reaction was related to her Dupixent and explained to her that use of Dupixent may actually improve her asthma as well as her allergies. As stated above, she will discuss it with her cattle killer. She needs to continue controller inhaler at [...] following up with 1 of the other library clerk talking books in the group as I will be [...] 8. Will obtain sleep studies results from [place] [facility] History and Present Illness: Patient is a very pleasant middle-aged white female no recommended by anyone at the time of this evaluation. She has loud snoring witnessed apnea daytime fatigue tiredness and sleepiness she has undergone sleep studies in [place] several years ago and was diagnosed with [...] or masses Lungs-decreased breath sounds, scattered wheezes Kkrhhwhxxinacc-B5-L6 Extremities-edema 1+ chronic stasis discoloration changes Neuro-appropriate, [...] 8. Will obtain sleep studies results from [place] [facility] History and Present Illness: Patient is a very pleasant middle-aged white female no recommended by anyone at the time of this evaluation. She has loud snoring witnessed apnea daytime fatigue tiredness and sleepiness she has undergone sleep studies in [place] several years ago and was diagnosed with [...] or masses Lungs-decreased breath sounds, scattered wheezes Kqybbahfvceunx-B5-U9 Extremities-edema 1+ chronic stasis discoloration changes Neuro-appropriate, [...] CNP Authorized by: Eliecer Hill CNP CPT 73396 - Large Joint Arthrocentesis: Consent given by: [...] CNP Authorized by: Eliecer Hill CNP CPT 15277 - Large Joint Arthrocentesis: Consent given by: [...] CNP Authorized by: Eliecer Hill CNP CPT 80270 - Large Joint Arthrocentesis: Consent given by: [...] - 08/10/2020 2:59 PM EST [facility] [address] [facility] [address] [facility] [id number] Chief Complaint Patient presents with Procedure Baron [...] file Gets together: Not on file Attends oriental orthodox service: Not on file Active member of [...] well. She has been seen by another chief port director in the past for overall pain and [...] have been marked as taking for the 09/30/20 encounter (Documentation) with Steve Palacios MD. Laboratory and Additional Data Reviewed: Reviewed 09/30/20 1:12 PM: Laboratory documented in this encounter* Eliecer Hill, FREDDIE - 10/01/2020 10:00 AM EST Kristen Mann [...] fall. She did see her PCP and information systems security analyst and is also scheduled to see a [...] file Gets together: Not on file Attends oriental orthodox service: Not on file Active member of [...] no acute displaced fracture or dislocation identified. Bkis-cb-waupihkd tricompartmental osteoarthritis bilaterally, most significant the medial [...] None Follow Up: No follow-ups on file. Eliecergogo Hill CNP documented in this encounter* Cecilia Campos MD - 06/07/2020 10:40 AM EDT General Cardiology Clinic Follow-up Heart & Vascular [facility] 06/07/2020 Cecilia Campos MD [address] [place] [address] Medical Office [facility] [phone] Patient: Kristen Mann Date of [...] Final Result by Axel Soares MD (10/16/2015 0931) Review of Systems: Review of Systems Constitution: [...] Left arm) Pulse (!) 104 Ht 5' 5 Wt 93.4 kg (206 lb) SpO2 97% [...] - 10/09/2020 1:31 PM EST [facility] [address] [facility] [address] [facility] [address] Chief Complaint Patient presents with Right Knee [...] file Gets together: Not on file Attends oriental orthodox service: Not on file Active member of [...] 2:59 PM EST [facility] [address] [facility] [address] [facility] [phone] Chief Complaint Patient presents with Right Knee - Follow-up MRI Follow up Kristen Mann returns to the office today [...] have anybody around to help her with client support associate such as cooking cleaning etc. She denies [...] file Gets together: Not on file Attends oriental orthodox service: Not on file Active member of [...] there are inherent diagnostic limitations compared to ebxj-dc-vlrc evaluations. We elected toproceed with the telephone visit telemedicine consultation. Patients name: Kristen Mann : 1950 Today's date: 10/22/2020 Reason for visit:New patient, referred by Eliecer Hill C* for evaluation of arthralgia. HPC: This is a 70 y.o. female [...] injury Telehealth appointments ok. Latricia Wilson MD Director Of Mechanical Engineering Pillowcase Cleaner Note: To expedite correspondence this note was generated by [employer] voice recognition software. Somegrammatical or spelling errors may occur using the system. documented in this encounter* Eliecer Hill CNP - 11/14/2020 12:02 PM EST [facility] [address] [facility] [address] [facility] [phone] No chief complaint on file. Kristen Mann [...] file Gets together: Not on file Attends oriental orthodox service: Not on file Active member of [...] CNP Authorized by: Elba Reyes CNP CPT 54998 - Large Joint Arthrocentesis: Consent given by: [...] CNP Authorized by: Elba Reyes CNP CPT 10556 - Large Joint Arthrocentesis: Consent given by: [...] CNP Authorized by: Elba Reyes CNP CPT 64126 - Large Joint Arthrocentesis: Consent given by: [...] CNP Authorized by: Elba Reyes CNP CPT 88628 - Large Joint Arthrocentesis: Consent given by: [...] L greater trochanteric bursa Performed by: Elba Ryees CNP Authorized by: Elba Reyes CNP CPT 47213 - Large Joint Arthrocentesis: Consent given by: [...] CNP Authorized by: Elba Reyes CNP CPT 43516 - Large Joint Arthrocentesis: Consent given by: [...] Contrast Angelina Lopez MD [address] [place], [place] [id number] Status Reason Specialty Diagnoses / Procedures Referred By Contact Referred To Contact Authorized Radiology Diagnoses NOBLE (dyspnea on exertion) Abnormal ECG Procedures NM Myocardial Perfusion Multiple SPECT Cecilia Campos MD [address] [place] [address] Status Reason Specialty Diagnoses / Procedures Referred By Contact Referred To Contact Authorized Cardiology Diagnoses Tachycardia Procedures ECG 12 lead Cecilia Campos MD [address] [place] [address] Status Reason Specialty Diagnoses / Procedures Referred By Contact Referred To Contact New Request Radiology Diagnoses Lung nodules Procedures CT Chest Without Contrast Angelina Lopez MD [address] [place], [place] [phone] Status Reason Specialty Diagnoses / Procedures Referred By Contact Referred To Contact Closed Sleep Medicine Diagnoses YVONNE (obstructive sleep apnea) YVONNE Procedures HOME SLEEP TEST HST Steve Palacios MD [address] [place] [address] [address] [place] [phone] Status Reason Specialty Diagnoses / Procedures Referred By Contact Referred To Contact Authorized Rheumatology Diagnoses Arthralgia, unspecified joint Eliecer Hill, FREDDIE [address] [place] [address] [facility] [address] [place] [address] Status Reason Specialty Diagnoses / Procedures Referred By Contact Referred To Contact Authorized Sleep Medicine Diagnoses YVONNE (obstructive sleep apnea) Procedures Polysomnography 4 or more parameters with CPAP Steve Palacios MD [address] [place] [address] Sleep Medicine [address] [place] [phone] Status Reason Specialty Diagnoses / Procedures Referred By Contact Referred To Contact Authorized Neurology Diagnoses Dizziness Cecilia Campos MD [address] [place] [address] [facility] [address] [place] [address] Status Reason Specialty Diagnoses / Procedures Referred By Contact Referred To Contact Authorized Pulmonology Diagnoses Sleep apnea, unspecified type Cecilia Campos MD [address] [place] [address] Eduardo Castro MD [facility] [address] [place] [address] Status Reason Specialty Diagnoses / Procedures Referred By Contact Referred To Contact Authorized Cardiology Diagnoses Tachycardia Procedures Holter monitor - 24 hour Cecilia Campos MD [address] [place] [address] Status Reason Specialty Diagnoses / Procedures Referred By Contact Referred To Contact Authorized Cardiology Diagnoses Tachycardia NOBLE (dyspnea on exertion) Procedures Echocardiogram complete Cecilia Campos MD [address] [place] [address] Status Reason Specialty Diagnoses / Procedures Referred By Contact Referred To Contact New Request Diagnoses Tear of lateral meniscus of right knee, unspecified tear type, unspecified whether old or current tear, subsequent encounter Procedures MR Knee Right Without Contrast Liz Eliecer Harding, PRODUCTION CELL LEADER [address] [phone] Status Reason Specialty Diagnoses / Procedures Referre d By Contact Referred To Contact Closed Radiology Diagnoses Lung nodules Procedures CT Chest Without Contrast Angelina Lopez MD [address] [place] [address] Status Reason Specialty Diagnoses / Procedures Referred By Contact Referred To Contact Authorized Patient Preference Physical Therapy Diagnoses Closed fracture of right tibial plateau with routine healing, subsequent encounter Primary osteoarthritis of both knees Evie Hille Meaghan, PRODUCTION CELL LEADER [address] [phone] Status Reason Specialty Diagnoses / Procedures Referred By Contact Referred To Contact Authorized Cardiology Diagnoses Tachycardia NOBLE (dyspnea on exertion) Angelina Lopez MD [address] [place] [address] Patricia Dowling MD [address] [place] [address] Status Reason Specialty Diagnoses / Procedures Referred By Contact Referred To Contact Pending Review Radiology Diagnoses Lung nodules Procedures CT Chest Without Contrast Angelina Lopez MD [address] [place] [address] Status Reason Specialty Diagnoses / Procedures Re ferred By Contact Referred To Contact Authorized Radiology Diagnoses Age-related osteoporosis without current pathological fracture Procedures XR Bone Density DEXA Axial Latricia Wilson MD [address] [place] [address] Status Reason Specialty Diagnoses / Procedures Referred By Contact Referred To Contact Authorized Cardiology Diagnoses Syncope, unspecified syncope type Procedures ECG 12 Lead Lenard Das MD [address] [place] [address] Status Reason Specialty Diagnoses / Procedures Referred By Contact Referred To Contact Pending Review Cardiology Diagnoses Stenosis of right internal carotid artery Procedures Ultrasound doppler carotid Richard Braga MD [address] [facility] [address] [address] [facility] [facility] [place] [address] Specialty Diagnoses / Procedures Referred By Contac t Referred To Contact Endocrinology Diagnoses Other specified diabetes mellitus without complication, with long-term current use of insulin ([facility]) Eliecer Hill, PRODUCTION CELL LEADER [address] [phone] Arnaldo Banks, FREDDIE [address] [phone] Referral ID Status Reason Start Date Expiration Date Visits Requested Visits Authorized [id number] Authorized Specialty Services Required/Pat ient's Best Interest 09/15/2021 09/15/2022 1 1 Specialty Diagnoses / Procedures Referred By Contac t Referred To Contact Physical Therapy Diagnoses Osteoarthritis of right knee, unspecified osteoarthritis type Eliecer Hill, PRODUCTION CELL LEADER [address] [place] [address] Referral ID Status Reason Start Date Expiration Date Visits Requested Visits Authorized [id number] Authorized Patient Preference 09/15/2021 09/15/2022 1 1 Specialty Diagnoses / Procedures Referred By Contac t Referred To Contact Cardiology Diagnoses Syncope, unspecified syncope type Procedures Echocardiogram complete Lenard Das MD [address] [place] [address] Referral ID Status Reason Start Date Expiration Date V isits Requested Visits Authorized [id number] Pending Review 11/20/2021 11/20/2022 1 1 Specialty Diagnoses / Procedures Referred By Contac t Referred To Contact Cardiology Diagnoses Pacemaker Lenard Das MD [address] [place] [address] Aaron Torres MD [address] [facility] [address] [phone] Referral ID Status Reason Start Date Expiration Date V isits Requested Visits Authorized [id number] Authorized 02/24/2022 02/24/2023 1 1 Specialty Diagnoses / Procedures Referred By Contac t Referred To Contact Cardiology Diagnoses Pacemaker complications, initial encounter Syncope, cardiogenic Procedures Outpatient Device Clinic Referral - Open for details Radha Hubbard DO [facility] [facility] [address] [place] [address] Referral ID Status Reason Start Date Expiration Date V isits Requested Visits Authorized [id number] Authorized 05/08/2022 05/08/2023 1 1 Specialty Diagnoses / Procedures Referred By Contac t Referred To Contact Neurosurgery Diagnoses Pacemaker Orthostatic hypotension Callie Ramirez MD [address] [place] [address] Kota Estrella MD [address] [place] [address] Referral ID Status Reason Start Date Expiration Date V isits Requested Visits Authorized [id number] Authorized 03/23/2023 03/22/2024 1 1 Specialty Diagnoses / Procedures Referred By Contac t Referred To Contact Radiology Diagnoses Back pain, unspecified back location, unspecified back pain laterality, unspecified chronicity Procedures MR Lumbar Spine Without Contrast Brooklyn Lnyn MD 335 [facility] [place] [address] Referral ID Status Reason Start Date Expiration Date V isits Requested Visits Authorized [id number] New Request 05/29/2023 05/28/2024 1 1 Specialty Diagnoses / Procedures Referred By Contac t Referred To Contact Radiology Diagnoses Acute thoracic back pain, unspecified back pain laterality Procedures MR Thoracic Spine Without Contrast Brooklyn Lynn MD [address] [address] Referral ID Status Reason Start Date Expiration Date V isits Requested Visits Authorized [id number] New Request 05/29/2023 05/28/2024 1 1 Specialty Diagnoses / Procedures Referred By Contac t Referred To Contact Cardiology Diagnoses Pain of left calf Procedures Ultrasound duplex venous leg left Brooklyn Lynn MD [address] [place] [phone] [facility] [address] [place], [place] [address] [place] [address] Referral ID Status Reason Start Date Expiration Date V isits Requested Visits Authorized [id number] Authorized 05/28/2023 05/27/2024 1 1 Specialty Diagnoses / Procedures Referred By Contac t Referred To Contact Cardiology Diagnoses LV dysfunction Procedures Echocardiogram limited Lenard Das MD 335 [facility] [address] [phone] Referral ID Status Reason Start Date Expiration Date Visits Re quested Visits Authorized [id number] Closed 12/23/2021 12/23/2022 1 1 Specialty Diagnoses / Procedures Referred By Contac t Referred To Contact Radiology Diagnoses Bradycardia Syncope, unspecified syncope type Abnormal ECG Procedures NM Myocardial Perfusion Multiple SPECT Radha Hubbard, DO [address] [place] [address] 100 [place] [address] Referral ID Status Reason Start Date Expiration Date V isits Requested Visits Authorized [id number] New Request 08/10/2023 08/09/2024 4 4 Specialty Diagnoses / Procedures Referred By Contac t Referred To Contact Neurology Diagnoses NPH (normal pressure hydrocephalus) (HCC) Olivier Acosta MD [address] [facility] [address] [place] [address] [facility] [address] Medical Office Building, 2nd [place] [address] Referral ID Status Reason Start Date Expiration Date V isits Requested Visits Authorized [id number] Authorized 12/02/2023 12/01/2024 1 1 Specialty Diagnoses / Procedures Referred By Contac t Referred To Contact Rehabilitation Diagnoses Dizziness Leila Banueols MD [address] [place] [address] Referral ID Status Reason Start Date Expiration Date Visits Requested Visits Authorized [id number] Authorized Patient Preference 12/17/2023 12/16/2024 1 1 [...] MONTHLY EXAM December 05, 2024 6:03 pm [facility] January 24, 2025 5:0 0am Chief Complaint Admit Date MONTHLY EXAM December 05, 2024 6:03 pm [facility] January 24, 2025 5:0 0am NEW PROBLEM January 30, 2025 3:30p m Chief Complaint Admit Date MONTHLY EXAM December 05, 2024 6:03 pm [facility] January 24, 2025 5:0 0am NEW PROBLEM January 30, 2025 3:30p m MONTHLY EXAM February 06, 2025 6:00p m Chief Complaint Admit Date MONTHLY EXAM December 05, 2024 6:03 pm MONTHLY EXAM January 08, 2025 3:31pm [facility] January 24, 2025 5:0 0am NEW PROBLEM January 30, 2025 3:30p m MONTHLY EXAM February 06, 2025 6:00p m [facility] March 21, 2025 5: 40am Chief Complaint Admit Date MONTHLY EXAM January 08, 2025 3:31pm [facility] January 24, 2025 5:0 0am NEW PROBLEM January 30, 2025 3:30p m MONTHLY EXAM February 06, 2025 6:00p m [facility] March 21, 2025 5: 40am Monthly Exam March 29, 2025 12:3 5pm Chief Complaint Admit Date MONTHLY EXAM January 08, 2025 3:31pm [facility] January 24, 2025 5:0 0am NEW PROBLEM January 30, 2025 3:30p m MONTHLY EXAM February 06, 2025 6:00p m [facility] March 21, 2025 5: 40am Monthly Exam March 29, 2025 12:3 5pm MONTHLY EXAM April 10, 2025 5:3 3pm Chief Complaint Admit Date [facility] January 24, 2025 5:0 0am NEW PROBLEM January 30, 2025 3:30p m MONTHLY EXAM February 06, 2025 6:00p m [facility] March 21, 2025 5: 40am Monthly Exam March 29, 2025 12:3 5pm MONTHLY EXAM April 10, 2025 5:3 3pm [facility] April 19, 2025 3:00pm New Concern May 01, 2025 2: 24pm Chief Complaint Admit Date [facility] January 24, 2025 5:0 0am NEW PROBLEM January 30, 2025 3:30p m MONTHLY EXAM February 06, 2025 6:00p m [facility] March 21, 2025 5: 40am Monthly Exam March 29, 2025 12:3 5pm MONTHLY EXAM April 10, 2025 5:3 3pm [facility] April 19, 2025 3:00pm New Concern May 01, 2025 2: 24pm New Concern May 04, 2025 1: 51pm Chief Complaint Admit Date [facility] March 21, 2025 5: 40am Monthly Exam March 29, 2025 12:3 5pm MONTHLY EXAM April 10, 2025 5:3 3pm [facility] April 19, 2025 3:00pm New Concern May 01, 2025 2: 24pm New Concern May 04, 2025 1: 51pm FOLLOW UP EXAM May 08, 2025 3:14pm [facility] May 23 5:35am Additional Source Comments Jermaine Bazzi MD - 02/08/2018 10:22 PM EDT H&P Notes (unrecognized sect ion and content) Formatting of this note may be different from the original. Jermaine Bazzi MD [facility] Hospitalists History and Physical Patient Name:Kristen Mann [...] retinal hemorrhage, GERD, asthma, migraine presented to [facility] with the above c/c. Patient states that she had some diffuse headache with double vision after going home from work last evening. Symptoms resolved when she woke up this morning. On the way driving to work this afternoon, she started feeling burning and heaviness to her forearm. Symptoms lasted about 15 min and resolved upon arrival at [facility]. CT head at [facility] was unremarkable. She was transferred to [facility] for further evaluation. Patient reports h/o TIA many years ago with right facial droop, on Palvix which was discontinued by her neurologist who thought it was due to migraine rather than TIA. 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 ConsultsPt is a DM 2 A1c 8.5 on orals and insulin at home. Pt / Family request. Provided diabetic education. Pt follows an Supervisor [employer] outpatient. Encouraged follow up and taking medications [...] different from the original. VASCULAR NEUROLOGY FOLLOW-UP [facility] Patient Name: Kristen Mann Admit Date: [id number] MR #: [id number] : 1950 Date of Neurology Consultation: 02/09/18 Name of Provider: Kalee Montelongo MD Other Physicians: Behzad Mcintyre MD (Primary Care Physician); No ref. provider found (Referring) Site: [facility] Provider: Kalee Montelongo MD [phone] Impression: Kristen Mann is a 67 y.o. 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 Kalee Montelongo MD Vascular Neurology [facility] Neurological Physicians Comments: Answered questions and rediscussed plan with patient, attending service MR images reviewed and summarized in DATA/Testing section Time statement: A total of 75 minutes were spent on this encounter either in the patient's room or on the patient's hospital unit and over half of that time was spent on jaqc-sy-mrdc counseling and/or coordination of care. ----- Subjective: [...] signs in last 24 hours: Temp: [97.9 F (36.6 C )-98.9 F (37.2 C )] 98.9 F (37.2 C ) Heart Rate: [83-118] 111 Resp: [13-23] 16 [...] & bulk: normal Abnormal movements: none Coordination: ckqwyf-jy-cnek: normal Coordination: asag-uuyc-gdpv: normal Rapid alternating movements: normal Drift: none [...] Sit: Modified independence Sit to Supine: Modified [place] Transfers Sit to Stand: Independent Gait/Locomotion Gait Assistance: Independent Assistive Device: None Distance: 300 Feet Pattern: Within Functional Limits Home Living Type of Home: House Home Layout: One level (2 DELROY no HR) Bathroom Shower/Tub: Tub/shower unit Bathroom Toilet: Raised Bathroom Equipment: (none) Home Equipment: (has rollators, commodes etc. all from her parents. 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 Also works doing [employer] on fridays. 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 She called our office to set up [...] PT at this time. Patient transported to [place] by [facility], report on arrival to ED. Receiving unit notified of patient's arrival. Patient's vital signs BP 143/82, HR 90 nsr, RR 20, Pulse Ox 97% on RA . Patient has a chief complaint of TIA. Patient does have patent IV access. Patient was on lunchroom monitor prior to arrival. Patient transported to room [...] section and content) DATE CREATED AUTHOR 02/25/2018 [facility] DATE CREATED AUTHOR AUTHOR'S ORGANIZ ATION 08/18/2018 [facility] DATE CREATED AUTHOR AUTHOR'S ORGANIZ ATION 08/20/2018 [facility] DATE CREATED AUTHOR AUTHOR'S ORGANIZ ATION 08/11/2019 [facility] DATE CREATED AUTHOR AUTHOR'S ORGANIZ ATION 09/26/2020 [facility] DATE CREATED AUTHOR AUTHOR'S ORGANIZ ATION 05/16/2021 [facility] DATE CREATED AUTHOR AUTHOR'S ORGANIZ ATION 09/28/2021 [facility] DATE CREATED AUTHOR AUTHOR'S ORGANIZ ATION 10/14/2021 [facility] DATE CREATED AUTHOR AUTHOR'S ORGANIZ ATION 12/18/2021 [facility] DATE CREATED AUTHOR AUTHOR'S ORGANIZ ATION 01/07/2023 [facility] DATE CREATED AUTHOR AUTHOR'S ORGANIZ ATION 12/19/2023 [facility] DATE CREATED AUTHOR AUTHOR'S ORGANIZ ATION 12/22/2023 [facility] DATE CREATED AUTHOR AUTHOR'S ORGANIZ ATION 04/10/2024 [facility] DATE CREATED AUTHOR AUTHOR'S ORGANIZ ATION 09/23/2024 [facility] DATE CREATED AUTHOR AUTHOR'S ORGANIZ ATION 01/04/2025 [facility] DATE CREATED AUTHOR AUTHOR'S ORGANIZ ATION 07/19/2025 [facility] Reason for Visit (unrecogniz ed section [...] NOBLE (dyspnea on exertion) Angelina Lopez MD [address] [place] [address] [address] Patricia Dowling MD [address] [place] [address] Status Reason Specialty Diagnoses / Procedures Referre d By Contact Referred To Contact Closed Radiology Diagnoses NOBLE (dyspnea on exertion) Abnormal ECG Procedures NM Myocardial Perfusion Study Single - Stress Only NM Myocardial Perfusion Multiple SPECT Cecilia Campos MD [address] [phone] Reason Comments Follow-up NOBLE Reason Comments Injections b/l hip Reason Comments Pain Reason Comments Follow-up Asthma Status Reason Specialty Diagnoses / Procedures Referred By Contact Referred To Contact Closed Sleep Medicine Diagnoses YVONNE (obstructive sleep apnea) YVONNE Procedures HOME SLEEP TEST HST Steve Palacios MD [address] [place] [phone] Sleep Medicine [address] [place] [phone] Reason Comments Procedure Baron hip injection Reason Comments Pain Injury Reason Comments Follow-up 3 month follow up Reason Comments Follow-up Pain Reason Comments Follow-up MRI Follow up Status Reason Specialty Diagnoses / Procedures Referred By Contact Referred To Contact Closed Rheumatology Diagnoses Arthralgia, unspecified joint Eliecer Hill, PRODUCTION CELL LEADER [address] [place] [address] [facility] [address] [place] [address] Status Reason Specialty Diagnoses / Procedures Referre d By Contact Referred To Contact Closed Radiology Diagnoses Lung nodules Procedures CT Chest Without Contrast Angelina Lopez MD [address] [place] [address] Reason Comments Follow-up follow-up testing Reason Comments Pain bila hip Reason Onset Date Comments Medication Refill 12/11/2020 Status Reason Specialty Diagnoses / Procedures Referre d By Contact Referred To Contact Lenard Das MD [address] [place] [address] Reason Comments Post-op Reason Comments Follow-up Pain Reason Comments Dizziness Patient was seeing a Neurologist [place]. She states she had a EEG, MRI and possible CT of brain. She states dizziness all the time or a light headed feeling. She states some days are worse. She has had retinopathy surgery on both eyes. Status Reason Specialty Diagnoses / Procedures Referre d By Contact Referred To Contact Closed Neurology Diagnoses Dizziness Cecilia Campos MD [address] [place] [address] [facility] [address] Medical Office Building, 2nd [place] [address] Reason Comments Establish Care Linq per Campos -disc uss ron episode on lux Status Reason Specialty Diagnoses / Procedures Referre d By Contact Referred To Contact Closed Cardiology Diagnoses Tachycardia Cecilia Campos MD [address] [place] [address] [facility] [address] [place] [address] Reason Onset Date Comments Medication Refill 07/24/2021 Reason Comments Follow-up 's pt Asthma 's pt Reason Comments Pain Follow-up Reason Comments Follow-up Reason Comments Follow-up 4 mo still dizzy Reason Comments Follow-up Discuss PPM date kehinde ed 11-28-21 Reason Onset Date Comments Medication Refill 12/23/2021 Specialty Diagnoses / Procedures Referred By Padmini rangel Referred To Contact Cardiology Diagnoses Pacemaker Lenard Das MD [address] [place] [address] Aaron Torres MD [address] [facility] [address] [place] [address] Referral ID Status Reason Start Date Expiration Date Visits Re quested Visits Authorized [id number] Closed 02/24/2022 02/24/2023 1 1 Reason Comments Chest Pain Specialty Diagnoses / Procedures Referred By Contac t Referred To Contact Diagnoses Elevated troponin Near syncope Syncope, cardiogenic Orthostatic dizziness Complication associated with cardiac pacemaker lead, initial encounter Stage 3a chronic kidney disease (HCC) Referral ID Status Reason Start Date Expiration Date Visits Re quested Visits Authorized [id number] 1 1 Reason Comments Wound Check S/P [...] unspecified chronicity Day, Callie Veras MD [address] [place] [address] Kota Estrella MD [address] [phone] Referral ID Status Reason Start Date Expiration Date V isits Requested Visits Authorized [id number] Pending Review 03/31/2023 03/30/2024 1 1 Reason [...] Expiration Date Visits Re quested Visits Authorized [id number] 1 1 Care Teams (unrecognized sec tion and content) Loan Interviewer Relationship Specialty Start Date End Date Mimi Estrada PA-C [address] [facility] [place], [place] [address] PCP - General Physician Master [employer] 06/20/20 Loan Interviewer Relationship Specialty [place] [address] [place] [address] [place] [address] PCP - General 06/25/21 Loan Interviewer Relationship Specialty Start Date End Date Olivier Acosta MD [address] [place] [address] [place] [address] PCP - General 06/25/21 Loan Interviewer Relationship Specialty Start Date End Date Olivier Acosta MD [address] [place] [address] PCP - General 06/25/21 Loan Interviewer Relationship Specialty Start Date End Date Olivier Acosta MD [address] [place] [address] [phone] PCP - General 06/25/21 Loan Interviewer Relationship Specialty Start Date End Date Olivier Acosta MD [address] [place] [address] PCP - General 06/25/21 Loan Interviewer Relationship Specialty Start [place] [address] [place] [address] [place] [phone] PCP - General 06/25/21 Loan Interviewer Relationship Specialty Start [place] [address] [place] [address] [place] [phone] PCP - General 06/25/21 Loan Interviewer Relationship Specialty Start Date End Date Olivier Acosta MD [address] [place] [address] PCP - General 06/25/21 Loan Interviewer Relationship Specialty Start Date End Date Olivier Acosta MD [address] [place] [address] PCP - General 06/25/21 Loan Interviewer Relationship Specialty Start Date End Date Olivier Acosta MD [address] [place] [address] PCP - General 06/25/21 Loan Interviewer Relationship Specialty Start Date End Date Olivier Acosta MD [address] [place] [address] PCP - General 06/25/21 Loan Interviewer Relationship Specialty Start Date End Date Olivier Acosta MD [address] [place] [phone] PCP - General 06/25/21 Loan Interviewer Relationship Specialty Start Date End Date Olivier Acosta MD [address] [place] [address] PCP - General 06/25/21 Loan Interviewer Relationship Specialty Start Date End Date Olivier Acosta MD [address] [place] [address] PCP - General 06/25/21 Loan Interviewer Relationship Specialty Start Date End Date Olivier Acosta MD [address] [place] [address] PCP - General 06/25/21 Loan Interviewer Relationship Specialty Start Date End Date Mimi Estrada PA-C PCP - General Family Practice 01/19/18 Marcy Maria, PRODUCTION CELL LEADER [address] [place], [place] [address] Referring Neurology 01/19/18 Loan Interviewer Relationship Specialty Start Date End Date Olivier Acosta MD [address] [place] [address] [address] [place] [phone] PCP - General 06/25/21 Cecilia Campos MD [address] [place], [place] [phone] Acid Remover Cardiology 05/08/22 Loan Interviewer Relationship Specialty Start Date End Date Olivier Acosta MD [address] [place] [address] [place] [phone] PCP - General 06/25/21 Cecilia Campos MD [address] [place] [address] Acid Remover Cardiology 05/08/22 Loan Interviewer Relationship Specialty Start Date End Date Olivier Acosta MD [address] [place] [address] PCP - General 06/25/21 Cecilia Campos MD [address] [place] [address] Acid Remover Cardiology 05/08/22 Loan Interviewer Relationship Specialty Start Date End Date Mimi Estrada PA-C PCP - General Family Medicine 01/19/18 Marcy Maria PRODUCTION CELL LEADER [address] [place], [place] [address] Referring Neurology 01/19/18 Loan Interviewer Relationship Specialty Start Date End Date Olivier Acosta MD [address] [facility] [address] [place] [address] PCP - General 06/25/21 Cecilia Campos MD [address] [place] [address] Acid Remover Cardiology 05/08/22 Team Status: Active Member Role [...] Provide r Active Dr. Emmanuel Hidalgo DO Other Provider Active Dr. Mahamed Tipton MD [...] Provider, Other Provid er Active Dr. Emmanuel Hidalgo DO Other Provider [...] Admit Provider, Other Provider A ctive Dr. Aniad Steele MD Other Provider Active Dr. Thee [...] Paresh Andersen DO Emergency Provider Active Dr. mEmanuel Hidalgo DO Admit Provider, At tending Provider, [...] Henna Joseph , DO Other Provider Active Loan Interviewer Relationship Specialty Start Date End Date Mimi Estrada PA-C PCP - General Family Medicine 01/19/18 Marcy Maria, PRODUCTION CELL LEADER [address] [place] [address] Referring Neurology 01/19/18 Loan Interviewer Relationship Specialty Start Date End Date Olivier Acosta MD [address] [place] [address] PCP - General 06/25/21 Cecilia Campos MD [address] [phone] Acid Remover Cardiology 05/08/22 Loan Interviewer Relationship Specialty Start Date End Date Olivier Acosta MD [address] [place] [address] PCP - General 06/25/21 Cecilia Campos MD [address] [phone] Acid Remover Cardiology 05/08/22 Loan Interviewer Relationship Specialty Start Date End Date Olivier Acosta MD [address] [place] [address] [phone] PCP - General 06/25/21 Cecilia Campos MD [address] [phone] Acid Remover Cardiology 05/08/22 Loan Interviewer Relationship Specialty Start Date End Date Olivier Acosta MD [address] [place] [address] PCP - General 06/25/21 Cecilia Campos MD [address] [place] [address] Acid Remover Cardiology 05/08/22 Loan Interviewer Relationship Specialty Start Date End Date Olivier Acosta MD [address] [place] [phone] PCP - General 06/25/21 Cecilia Campos MD [address] [place] [address] Acid Remover Cardiology 05/08/22 Loan Interviewer Relationship Specialty Start Date End Date Olivier Acosta MD [address] [place] [address] [id number] PCP - General 06/25/21 Cecilia Campos MD [address] [place] [address] Acid Remover Cardiology 05/08/22 Team Status: Inactive Member Role Status Dates Dr. Olivier Acosta MD Primary Care Provider Active ARGELIA BARRETO Attending Provider, Referring Provide r Active Loan Interviewer Relationship Specialty Start Date End Date Mimi Estrada PA-C PCP - General Family Medicine 01/19/18 Marcy Maria CNP [facility] [place] [address] Referring Neurology 01/19/18 Loan Interviewer Relationship Specialty Start Date End Date Olivier Acosta MD [address] [place] [address] [place] [address] [phone] PCP - General 06/25/21 Ofelia Ramirez, RN Registered Nurse Cardiology 07/05/23 Loan Interviewer Relationship Specialty Start Date End Date Olivier Acosta MD [address] [place] [address] [phone] PCP - General 06/25/21 Allegra Calzada PA-C [address] [place] [address] PCP - CMS Attributed Provider 12/05/21 06/05/22 Radha Hubbard DO [address] [facility] [place] [address] [id number] PCP - CMS Attributed Provider 06/06/22 09/05/22 Cecilia Campos MD [address] [place] [id number] Acid Remover Cardiology 05/08/22 07/04/23 Ofelia Ramirez RN Registered Nurse Cardiology 07/05/23 Radha Hubbard DO [address] [facility] [place] [address] [address] Acid Remover Cardiac Electrophysiology 08/02/23 Loan Interviewer Relationship Specialty Start Date End Date Olivier Acosta MD [address] [place] [address] [phone] PCP - General 06/25/21 Ashley, VIKA Gilbert Registered Nurse Cardiology 07/05/23 Radha Hubbard DO [address] [address] Acid Remover Cardiac Electrophysiology 08/02/23 Loan Interviewer Relationship Specialty Start Date End Date Olivier Acosta MD [address] [place] [address] [address] [place] [phone] PCP - General 06/25/21 Day, VIKA Gilbert Registered Nurse Cardiology 07/05/23 Radha Hubbard DO [address] [place] [address] [place], [place] [phone] Acid Remover Cardiac Electrophysiology 08/02/23 Loan Interviewer Relationship Specialty Start Date End Date Olivier Acosta MD [address] [place] [id number] PCP - General 06/25/21 Day, VIKA Gilbert Registered Nurse Cardiology 07/05/23 Radha Hubbard DO [address] [facility] [place] [phone] Acid Remover Cardiac Electrophysiology 08/02/23 Loan Interviewer Relationship Specialty Start Date End Date Olivier Acosta MD [address] [place] [phone] PCP - General 06/25/21 Day, VIKA Gilbert Registered Nurse Cardiology 07/05/23 Radha Hubbard DO [address] [facility] [address] [address] Acid Remover Cardiac Electrophysiology 08/02/23 Team Status: Inactive Member Role Status Dates Dr. Olivier Acosta MD Primary Care Provider Active Vero Jordan Active Dr. Andrae Sterling MD Attending Provider, Referring Pro vider Active Loan Interviewer Relationship Specialty Start Date End Date Olivier Acosta MD [address] [place] [address] [place] [address] [phone] PCP - General 06/25/21 Day, VIKA Gilbert Registered Nurse Cardiology 07/05/23 Radha Hubbard DO [address] [facility] [place] [id number] Acid Remover Cardiac Electrophysiology 08/02/23 Loan Interviewer Relationship Specialty Start Date End Date Olivier Acosta MD [address] [place] [address] [phone] PCP - General 06/25/21, VIKA Gilbert Registered Nurse Cardiology 07/05/23 Radha Hubbard DO [address] [place] [phone] Acid Remover Cardiac Electrophysiology 08/02/23 Name Effective Dates (start - stop) Status Members No Information Loan Interviewer Relationship Specialty Start Date End Date Olivier Acosta MD [address] [place] [address] [phone] PCP - General 06/25/21 Day, VIKA Gilbert Registered Nurse Cardiology 07/05/23 Radha Hubbard DO [address] [id number] Acid Remover Cardiac Electrophysiology 08/02/23 Loan Interviewer Relationship Specialty Start Date End Date Olivier Acosta MD [address] [place] [address] [phone] PCP - General 06/25/21, VIKA Gilbert Registered Nurse Cardiology 07/05/23 Radha Hubbard DO [address] [place] [id number] Acid Remover Cardiac Electrophysiology 08/02/23 Loan Interviewer Relationship Specialty Start Date End Date Olivier Acosta MD [address] [place], [place] [phone] PCP - General 06/25/21 Day, VIKA Gilbert Registered Nurse Cardiology 07/05/23 Radha Hubbard DO [address] [place] [id number] Acid Remover Cardiac Electrophysiology 08/02/23 Loan Interviewer Relationship Specialty Start Date End Date Olivier Acosta MD [address] [place] [phone] PCP - General 06/25/21 Day, VIKA Gilbert Registered Nurse Cardiology 07/05/23 Radha Hubbard DO [address] [id number] Acid Remover Cardiac Electrophysiology 08/02/23 Team Status: Inactive Member Role Status Dates Dr. Olivier Acosta MD Primary Care Provider Active Start: November 20, 2024 End: November 20, 2024 Shirlene Morelos SINGLE ENDING MACHINE OPERATOR, SINGLE ENDING MACHINE OPERATOR-C Attending Provider Active Start: November 20, 2024 [...] January 24, 2025 End: January 24, 2025 Team Status: Active Member Role/Relationship Status Dates Mimi Estrada PA, PA-C Family Provider Active Dr. Olivier Acosta MD Primary Care Provider Active Team Status: Inactive Member Role/Relationship Status Dates Dr. Olivier Acosta MD Primary Care Provider Active Start: December 05, 2024 End: December 05, 2024 Dr. Benjamín Tavarez MD Attending Provider Active Start: December 05, 2024 End: December 05, 2024 Team Status: Inactive Member Role/Relationship Status Dates Dr. Olivier Acosta MD Primary Care Provider Active Start: January 24, 2025 End: January 24, 2025 Benjamín MCNAIR MD Attending Provider Active Start: January 24, 2025 End: January 24, 2025 Team Status: Inactive Member Role/Relationship Status Dates Dr. Olivier Acosta MD Primary Care Provider Active Start: January 30, 2025 End: January 30, 2025 Shirlene Morelos SINGLE ENDING MACHINE OPERATOR, SINGLE ENDING MACHINE OPERATOR-C Attending Provider Active Start: January 30, 2025 End: January 30, 2025 Team Status: Active Member Role/Relationship Status Dates Dr. Olivier Acosta MD Primary Care Provider Active Start: March 21, 2025 Benjamín MCNAIR MD Attending Provider Active Start: March 21, 2025 Team Status: Inactive Member Role/Relationship Status Dates Dr. Olivier Acosta MD Primary Care Provider Active Start: February 06, 2025 End: February 06, 2025 Dr. Benjamín Tavarez MD Attending Provider Active Start: February 06, 2025 End: February 06, 2025 Team Status: Active Member Role/Relationship Status Dates Dr. Olivier Acosta MD Primary Care Provider Active Start: March 21, 2025 Benjamín MCNAIR MD Attending Provider Active Start: March 21, 2025 Team Status: Inactive Member Role/Relationship Status Dates Dr. Olivier Acosta MD Primary Care Provider Active Start: January 08, 2025 End: January 08, 2025 Shirlene Morelos SINGLE ENDING MACHINE OPERATOR, SINGLE ENDING MACHINE OPERATOR-C Attending Provider Active Start: January 08, 2025 End: January 08, 2025 Team Status: Inactive Member Role/Relationship Status Dates Dr. Olivier Acosta MD Primary Care Provider Active Start: January 24, 2025 End: January 24, 2025 Benjamín MCNAIR MD Attending Provider Active Start: January 24, 2025 End: January 24, 2025 Team Status: Inactive Member Role/Relationship Status Dates Dr. Olivier Acsota MD Primary Care Provider Active Start: January 30, 2025 End: January 30, 2025 Shirlene Morelos SINGLE ENDING MACHINE OPERATOR, SINGLE ENDING MACHINE OPERATOR-C Attending Provider Active Start: January 30, 2025 End: January 30, 2025 Team Status: Inactive Member Role/Relationship Status Dates Dr. Olivier Acosta MD Primary Care Provider Active Start: February 06, 2025 End: February 06, 2025 Dr. Benjamín Tavarez MD Attending Provider Active Start: February 06, 2025 End: February 06, 2025 Team Status: Inactive Member Role/Relationship Status Dates Dr. Olivier Acosta MD Primary Care Provider Active Start: March 06, 2025 Dr. Carito Booth MD Attending Provider Active Start: March 06, 2025 Team Status: Active Member Role/Relationship Status Dates Dr. Olivier Acosta MD Primary Care Provider Active Start: March 21, 2025 Benjamín MCNAIR MD Attending Provider Active Start: March 21, 2025 Team Status: Inactive Member Role/Relationship Status Dates Dr. Olivier Acosta MD Primary Care Provider Active Start: January 08, 2025 End: January 08, 2025 Shirlene Morelos SINGLE ENDING MACHINE OPERATOR, SINGLE ENDING MACHINE OPERATOR-C Attending Provider Active Start: January 08, 2025 End: January 08, 2025 Team Status: Inactive Member Role/Relationship Status Dates Dr. Olivier Acosta MD Primary Care Provider Active Start: March 06, 2025 Dr. Carito Booth MD Attending Provider Active Start: March 06, 2025 Team Status: Active Member Role/Relationship Status Dates Dr. Olivier Acosta MD Primary Care Provider Active Start: March 21, 2025 Benjamín MCNAIR MD Attending Provider Active Start: March 21, 2025 Team Status: Inactive Member Role/Relationship Status Dates Dr. Olivier Acsota MD Primary Care Provider Active Start: March 29, 2025 End: March 29, 2025 Shirlene Morelos NP SINGLE ENDING MACHINE OPERATOR-C Attending Provider Active Start: March 29, 2025 End: March 29, 2025 Team Status: Inactive Member Role/Relationship Status Dates Dr. Olivier cAosta MD Primary Care Provider Active Start: April 10, 2025 End: April 10, 2025 Dr. Benjamín Tavarez MD Attending Provider Active Start: April 10, 2025 End: April 10, 2025 Team Status: Active Member Role/Relationship Status Dates Dr. Olivier Acosta MD Primary Care Provider Active Start: April 19, 2025 Benjamín MCNAIR MD Attending Provider Active Start: April 19, 2025 Team Status: Inactive Member Role/Relationship Status Dates Dr. Olivier Acosta MD Primary Care Provider Active Start: January 24, 2025 End: January 24, 2025 Benjamín MCNAIR MD Attending Provider Active Start: January 24, 2025 End: January 24, 2025 Team Status: Inactive Member Role/Relationship Status Dates Dr. Olivier Acosta MD Primary Care Provider Active Start: January 30, 2025 End: January 30, 2025 Shirlene Morelos NP SINGLE ENDING MACHINE OPERATOR-C Attending Provider Active Start: January 30, 2025 End: January 30, 2025 Team Status: Inactive Member Role/Relationship Status Dates Dr. Olivier Acosta MD Primary Care Provider Active Start: February 06, 2025 End: February 06, 2025 Dr. Benjamín Tavarez MD Attending Provider Active Start: February 06, 2025 End: February 06, 2025 Team Status: Inactive Member Role/Relationship Status Dates Dr. Olivier Acosta MD Primary Care Provider Active Start: March 06, 2025 Dr. Carito Booth MD Attending Provider Active Start: March 06, 2025 Team Status: Inactive Member Role/Relationship Status Dates Dr. Olivier Acosta MD Primary Care Provider Active Start: March 29, 2025 End: March 29, 2025 Shirlene Morelos NP, SINGLE ENDING MACHINE OPERATOR-C Attending Provider Active Start: March 29, 2025 End: March 29, 2025 Team Status: Inactive Member Role/Relationship Status Dates Dr. Olivier Acosta MD Primary Care Provider Active Start: April 10, 2025 End: April 10, 2025 Dr. Benjamín Tavarez MD Attending Provider Active Start: April 10, 2025 End: April 10, 2025 Team Status: Active Member Role/Relationship Status Dates Dr. Olivier Acosta MD Primary Care Provider Active Start: April 19, 2025 Benjamín MCNAIR MD Attending Provider Active Start: April 19, 2025 Team Status: Inactive Member Role/Relationship Status Dates Dr. Olivier Acosta MD Primary Care Provider Active Start: May 01, 2025 End: May 01, 2025 Shirlene Morelos SINGLE ENDING MACHINE OPERATOR, SINGLE ENDING MACHINE OPERATOR-C Attending Provider Active Start: May 01, 2025 End: May 01, 2025 Team Status: Inactive Member Role/Relationship Status Dates Dr. Olivier Acosta MD Primary Care Provider Active Start: May 04, 2025 End: May 04, 2025 Shirlene Mroelos SINGLE ENDING MACHINE OPERATOR, SINGLE ENDING MACHINE OPERATOR-C Attending Provider Active Start: May 04, 2025 End: May 04, 2025 Loan Interviewer Relationship Specialty Start Date End Date Olivier Acosta MD [address] [place] [id number] PCP - General 06/25/21 Ofelia Ramirez RN Registered Nurse Cardiology 07/05/23 Radha Hubbard DO [address] [place] [address] Acid Remover Cardiac Electrophysiology 08/02/23 Team Status: Active Member Role/Relationship Status Dates RICARDO GrissomC Primary care physician Active Dr. Olivier Acosta MD Primary care physician Activ e Team Status: Inactive Member Role/Relationship Status Dates Dr. Olivier Acosta MD Primary care physician Activ e Start: March 06, 2025 Dr. Carito Booth MD Attending physician Active Start: March 06, 2025 Team Status: Active Member Role/Relationship Status Dates Dr. Olivier Acosta MD Primary care physician Activ e Start: March 21, 2025 Benjamín MCNAIR MD Attending physician Active Start: March 21, 2025 Team Status: Inactive Member Role/Relationship Status Dates Dr. Olivier Acosta MD Primary care physician Activ e Start: March 29, 2025 End: March 29, 2025 Shirlene Morelos SINGLE ENDING MACHINE OPERATOR, SINGLE ENDING MACHINE OPERATOR-C Attending physician Active Start: March 29, 2025 End: March 29, 2025 Team Status: Inactive Member Role/Relationship Status Dates Dr. Olivier Acosta MD Primary care physician Activ e Start: April 10, 2025 End: April 10, 2025 Dr. Benjamín Tavarez MD Attending physician Active Start: April 10, 2025 End: April 10, 2025 Team Status: Active Member Role/Relationship Status Dates Dr. Olivier Acosta MD Primary care physician Activ e Start: April 19, 2025 Benjamín MCNAIR MD Attending physician Active Start: April 19, 2025 Team Status: Inactive Member Role/Relationship Status Dates Dr. Olivier Acosta MD Primary care physician Activ e Start: May 01, 2025 End: May 01, 2025 Shirlene Morelos NP, SINGLE ENDING MACHINE OPERATOR-C Attending physician Active Start: May 01, 2025 End: May 01, 2025 Team Status: Inactive Member Role/Relationship Status Dates Dr. Olivier Acosta MD Primary care physician Activ e Start: May 04, 2025 End: May 04, 2025 Shirlene Morelos SINGLE ENDING MACHINE OPERATOR, SINGLE ENDING MACHINE OPERATOR-C Attending physician Active Start: May 04, 2025 End: May 04, 2025 Team Status: Inactive Member Role/Relationship Status Dates Dr. Olivier Acosta MD Primary care physician Activ e Start: May 08, 2025 End: May 08, 2025 Shirlene Morelos SINGLE ENDING MACHINE OPERATOR, SINGLE ENDING MACHINE OPERATOR-C Attending physician Active Start: May 08, 2025 End: May 08, 2025 Team Status: Active Member Role/Relationship Status Dates Dr. Olivier Acosta MD Primary care physician Activ e Start: May 23, 2025 Benjamín MCNAIR MD Attending physician Active Start: May 23, 2025 <item> Privacy Markings (unrecogniz ed section [...] or prosecute any alcohol or drug abuse patient.[facility] the event this information is protected by the Federal Confidentiality of Alcohol and Drug Abuse Patient Records regulations: The Federal rules restrict any use of the information to criminally investigate or prosecute any alcohol or drug abuse patient.[facility] the event this information is protected by the Federal Confidentiality of Alcohol and Drug Abuse Patient Records regulations: The Federal rules restrict any use of the information to criminally investigate or prosecute any alcohol or drug abuse patient.[facility] the event this information is protected by the Federal Confidentiality of Alcohol and Drug Abuse Patient Records regulations: The Federal rules restrict any use of the information to criminally investigate or prosecute any alcohol or drug abuse patient.[facility] Scheduled Active and Recently Administ ered Medications [...] 0931 (Given - Provider: Latricia Hylton RN) 902 (Given - Provider: Jessica Kong LPN) insulin glargine (LANTUS) injection 35 Units 35 Units, Subcutaneous, Daily, First dose on Wed05/08/22 at 0900, Do not mix with other insulins in a syringe. Do NOT hold basal insulin without notifying physician 1307 (Given - Provider: Latricia Hylton RN - Comment: pt npo, went for procedure) 902 (Given - Provider: Jessica Kong LPN) insulin [...] Poornima Johnson RN)1107 (Given - Provider: Poornima Johnson RN)1152 (Given - Provider: Poornima Johnson RN) ibuprofen [...] 1046, Intra-Procedure 1046 (Given - Provider: Radha Hubbard DO) lidocaine 20 mg/mL (2 %) injection (CANCELED) [...] is pulseless, breathless, and unresponsive, Starting on Wed05/07/22 at 2140, Call a code first, then [...] total volume of 10 ml. Chart total ML OF MIXTURE given to patient. 0844 (Given - Provider: [...] lock IV (CANCELED) Routine, Continuous, Starting on Wed05/07/22 at 2140, Until Specified And sodium chloride [...] secondary infusion, Starting on Darleen 05/07/22 at 2135
Run as Primary IV. NOT [...] secondary infusion, Starting on Darleen 05/07/22 at 2144
Run as Primary IV. NOT intended for KVO.
Group 3: naloxone (NARCAN) injection 0.1 mgJump to med 0.1 mg, Intravenous, As needed, opioid reversal, For respiratory rate less than or equal to 8 per minute., Starting on Darleen 05/07/22 at 2140
Mix nalOXone (NARCAN) 0.4 mg (1mL) with 9 mL of Normal Saline to total 10 mL. Administer 0.1 mg (2.5mL) IV Push every 2 minutes until respiratory rate is 10 or greater.
And Notify physician (CANCELED) STAT, Until discontinued, Starting on Darleen 05/07/22 at 2145, Until Specified
Respiratory rate less [...] 0.1 mg, Oral, Daily, First dose on Wed12/14/23 at 1700 0918 (Given - [...] Do NOT hold basal insulin without notifying physician 2118 (Given - Provider: Helen Giles LPN) [...] equal to: 80, For Downtime Calculator, use: Insulin SC NIGHTtime 2118 (Given - Provider: Helen Giles LPN) 2140 (Given - Provider: Cherie Farooq LPN) insulin lispro (AdmeLOG,HumaLOG) injection 0-30 Units 0-30 Units, Subcutaneous, 3 times daily before meals, First dose on Wed12/10/23 at 1705, * Dose should be given EITHER: No sooner than 10-15 minutes BEFORE a meal (Specific Prandial Doses or NO Prandial Dose - Corrective Scale ONLY) - OR - Immediately AFTER meal completed (Carb Counting Ratio), Prandial Insulin Dosing Method: NO Prandial Dose - Corrective Scale ONLY, Corrective Insulin Regimen (select desired scale to cover BG result): USUAL Sensitivity Scale, Dose Reduction Threshold (at meals) for POC Blood Glucose less than or equal to: 80, For Downtime Calculator, use: Insulin SC MEALtime PREprandial 0919 (Given - Provider: Jessica Priest RN)1300 [...] RN) 0850 (Given - Provider: Gisele Velasquez RN)1200 (Due) senna-docusate (SENNA-S) 8.6-50 mg per tablet [...] 1659, Use oral route first, if tolerated. ondansetron [...] equal to: 80, For Downtime Calculator, use: Insulin SC NIGHTtime And Notify physician (CANCELED) Routine, Until discontinued, [...] BE BASED ON THE PRIMARY CLINICAL RECORDS. [employer] provides no warranty or guarantee of the accuracy or completeness of information in this document.
== END ==
LOC: OLS.WHLEAS 05:00
PROVIDERS: PCP Student in an Organized Health Care Education/Training Program; Visit Provider Internal Medicine
DX: G91.2 (Idiopathic) normal pressure hydrocephalus (principal); E11.9 Type 2 diabetes mellitus without complications; J45.909 Unspecified asthma, uncomplicated; J98.4 Other disorders of lung; I12.9 Hypertensive chronic kidney disease with stage 1 through stage 4 chronic kidney disease, or unspecified chronic kidney disease
CPT/HCPCS: 36415; 83036